=== PATIENT | male | born 1960 | race Caucasian/White ===

== ENCOUNTER 2024-11-01 10:42 | Outpatient (OUT) | payer OTHER, SELFPAY ==
--- NOTE | 2024-11-01 | XR_ITS ---
[address] [address] Patient Name: MEREDITH VILLATORO MRN: [id number] date: 1960 Sex: M Assigned Patient Location: RAD Current Patient Location: RAD Accession/Order Number: [id number] Exam Date: 11/01/2024 10:43 Report Date: 11/01/2024 13:46 At the request of: ANJANA DIETZ Procedure: XR foot LT min 3V PROCEDURE: XR foot LT min 3V, XR ankle LT min 3V COMPARISON: None. HISTORY: LEFT FOOT PAIN FINDINGS: BONES:No acute fracture or dislocation. Moderate degenerative changes with marginal osteophyte formation. Enthesopathic spurring of the calcaneus SOFT TISSUES:Negative. No visible soft tissue swelling. EFFUSION:None visible. OTHER: Negative. XR/XR foot LT min 3V IMPRESSION: Moderate degenerative changes Electronically authenticated by: STACEY WIGGINS Date: 11/01/2024 13:46
--- NOTE | 2024-11-01 | XR_ITS ---
The [address] [address] Patient Name: MEREDITH VILLATORO MRN: [id number] date: 1960 Sex: M Assigned Patient Location: RAD Current Patient Location: RAD Accession/Order Number: [id number] Exam Date: 11/01/2024 10:43 Report Date: 11/01/2024 13:46 At the request of: ANJANA DIETZ Procedure: XR ankle LT min 3V PROCEDURE: XR foot LT min 3V, XR ankle LT min 3V COMPARISON: None. HISTORY: LEFT FOOT PAIN FINDINGS: BONES:No acute fracture or dislocation. Moderate degenerative changes with marginal osteophyte formation. Enthesopathic spurring of the calcaneus SOFT TISSUES:Negative. No visible soft tissue swelling. EFFUSION:None visible. OTHER: Negative. XR/XR ankle LT min 3V IMPRESSION: Moderate degenerative changes Electronically authenticated by: STACEY WIGGINS Date: 11/01/2024 13:46
== END 2024-11-01 10:43 | disposition home or self-care (01) ==
PROVIDERS: Visit Provider Podiatrist Foot & Ankle Surgery
DX: M25.572 Pain in left ankle and joints of left foot (principal); M77.32 Calcaneal spur, left foot
CPT/HCPCS: 73610; 73630

== ENCOUNTER 2024-11-10 09:27 | Outpatient (OUT) | payer MEDICARE, MEDICAID, SELFPAY ==
--- NOTE | 2024-11-10 09:31 | CT_ITS ---
[place] [id number] Patient Name: MEREDITH VILLATORO MRN: [id number] date: 1960 Sex: M Assigned Patient Location: CT Current Patient Location: CT Accession/Order Number: [id number] Exam Date: 11/10/2024 09:34 Report Date: 11/10/2024 14:41 At the request of: ANJANA DIETZ Procedure: CT ankle LT wo con EXAMINATION: CT ankle LT wo con HISTORY: Ankle DJD COMPARISON: No relevant comparison available. TECHNIQUE: Multi-planar CT images were created without IV contrast. Dose reduction techniques were achieved by using automated exposure control and/or adjustment of mA and/or kV according to patient size and/or use of iterative reconstruction technique. FINDINGS: BONES: No acute fracture or dislocation. Mild tricompartmental knee osteoarthropathy with marginal osteophyte formation. Mild to moderate narrowing of the medial joint space. Mild to moderate degenerative changes of the midfoot and hindfoot with joint space narrowing, subchondral cystic changes and marginal osteophyte formation. Mild enthesopathic spurring of the calcaneus at the Achilles and plantar insertions SOFT TISSUES: Negative. No visible soft tissue swelling. EFFUSION: None visible. OTHER: Vascular calcifications CT/CT ankle LT wo con IMPRESSION: [id number]-lc-[id number] osteoarthritis detailed above Electronically authenticated by: STACEY WIGGINS Date: 11/10/2024 14:41
== END 2024-11-10 09:28 | disposition home or self-care (01) ==
LOC: CT 09:27
PROVIDERS: Visit Provider Podiatrist Foot & Ankle Surgery
DX: M19.072 Primary osteoarthritis, left ankle and foot (principal)
CPT/HCPCS: 73700

== ENCOUNTER 2024-12-06 12:12 | Outpatient (OUT) | payer MEDICARE, MEDICAID, SELFPAY ==
--- NOTE | 2024-12-06 12:23 | ECG_ITS ---
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
[2024-12-06 13:22] LABS: Anion Gap 13.5; BUN Creatinine Ratio 13.9; Calcium 9.6 mg/dL (8.5-10.1); Carbon Dioxide 27.2 mmol/L (21.0-32.0); Chloride 105 mmol/L (98-107); Estimated GFR (African America >60 (>=60 mL/min/1.73m^2); Estimated GFR (Non-African Ame >60 (>=60 mL/min/1.73m^2); Glucose 109 mg/dL (74-106); Potassium 4.7 mmol/L (3.5-5.1); Sodium 141 mmol/L (136-145)
--- NOTE | 2024-12-06 14:04 | P.GSHP_ITS ---
History of Present Illness History of Present Illness Chief complaint: Primary arthritis left ankle/foot Narrative: Patient presents for presurgical testing. The patient reports a long history of left foot and ankle pain. He does wear a brace to help with his discomfort and he is not sure if he is taking any medications to alleviate his pain at the present time. He states he does have a pins and needle sensation to his lower extremities. Review of Systems ROS Narrative REVIEW OF SYSTEMS: Negative except as stated in HPI, ten or more systems reviewed. Constitutional: No fever, chills, weakness ENT: No sore throat or epistaxis Cardiovascular: No edema, chest pain, or palpitations; admits to activity intolerance Respiratory: No shortness of breath, cough, or wheezing Gastrointestinal: No abdominal pain, constipation, diarrhea, or vomiting Genitourinary: No dysuria or hematuria Neurological: No numbness, tingling, weakness, or headache Psychiatric: No mood changes [facility] Medical History (Updated 12/06/24 @ 14:06 by Michelle Castro NP) Left ankle pain ?M25.572 - Pain in left ankle and joints of left foot (ICD-10) Arthritis ?M19.90 - Unspecified osteoarthritis, unspecified site (ICD-10) Migraine ?G43.909 - Migraine, unspecified, not intractable, without status migrainosus (ICD-10) GERD (gastroesophageal reflux disease) ?K21.9 - Gastro-esophageal reflux disease without esophagitis (ICD-10) Hypertension ?I10 - Essential (primary) hypertension (ICD-10) High cholesterol ?E78.00 - Pure hypercholesterolemia, unspecified (ICD-10) Poor historian ?Z78.9 - Other specified health status (ICD-10) Prostate cancer ?C61 - Malignant neoplasm of prostate (ICD-10) Neuropathy ?G62.9 - Polyneuropathy, unspecified (ICD-10) Equinus contracture of ankle ?M24.573 - Contracture, unspecified ankle (ICD-10) Osteoarthritis of left ankle and foot ?M19.072 - Primary osteoarthritis, left ankle and foot (ICD-10) Surgical History (Updated 12/06/24 @ 12:47 by Michelle Castro NP) History of esophagogastroduodenoscopy (EGD) ?Z98.890 - Other specified postprocedural states (ICD-10) History of colonoscopy ?Z98.890 - Other specified postprocedural states (ICD-10) History of gastric surgery ?Z98.890 - Other specified postprocedural states (ICD-10) Hx of prostate biopsy ?Z98.890 - Other specified postprocedural states (ICD-10) H/O transurethral resection of prostate ?Z98.890 - Other specified postprocedural states (ICD-10) ?Z90.79 - Acquired absence of other genital organ(s) (ICD-10) H/O arthroscopy (~2019) ?Z98.890 - Other specified postprocedural states (ICD-10) Social History (Updated 12/06/24 @ 12:39 by Michelle Castro NP) Within the past year, how often did you have a drink containing alcohol: never Score interpretation: A score less than 4 is consistent with normal alcohol consumption. Smoking status: Former smoker Non-prescribed substance use: denies use Highest level of school completed/degree received: high school graduate Meds Home Medications and Allergies Home Medications ?Medication ?Instructions ?Recorded ?Confirmed ?Type atorvastatin 10 mg tablet 10 mg PO DAILY 12/06/24 12/06/24 History dicyclomine 20 mg tablet 20 mg PO BID 12/06/24 12/06/24 History fluticasone propionate 50 1 spray intranasal DAILY PRN 12/06/24 12/06/24 History mcg/actuation nasal allergy symptoms spray,suspension (24 Hour Allergy Relief) indomethacin 50 mg capsule 50 mg PO BID 12/06/24 12/06/24 History lisinopril 10 mg tablet 10 mg PO DAILY 12/06/24 12/06/24 History metoprolol tartrate 50 mg tablet 50 mg PO BID 12/06/24 12/06/24 History mirabegron 50 mg tablet,extended 50 mg PO DAILY 12/06/24 12/06/24 History release 24 hr (Myrbetriq) tamsulosin 0.4 mg capsule (Flomax) 0.4 mg PO DAILY 12/06/24 12/06/24 History Allergies Allergy/AdvReac Type Severity Reaction Status Date / Time No Known Drug Allergies Allergy Verified 12/06/24 12:37 Exam Narrative Exam Narrative: Constitutional: Awake, alert, comfortable, well-appearing, nontoxic, inter active, vital signs as charted Head: Normocephalic, atraumatic Neck: Supple, normal appearance, normal range of motion, no meningeal signs, no lymphadenopathy Respiratory: No respiratory distress, breath sounds clear Cardiovascular: Regular rate and rhythm, strong and regular heart tones Musculoskeletal: Ankle brace intact left ankle Skin: No rashes or induration, no lesions, only visible skin inspected Neuro: No gross neurological deficits, normal sensation Psychiatric: Oriented ?3, normal affect Assessment and Plan Assessment and Plan (1) Osteoarthritis of left ankle and foot: (2) Equinus contracture of ankle: (3) Left ankle pain: Plan Left ankle arthroplasty with excision of osteophytes and possible cheilectomy, arthrotomy, and soft tissue balancing as needed scheduled with Dr. Granda December 11, 2024.
== END 2024-12-06 12:13 | disposition home or self-care (01) ==
LOC: PST 12:13
PROVIDERS: Visit Provider Podiatrist Foot & Ankle Surgery
DX: Z01.810 Encounter for preprocedural cardiovascular examination (principal); Z01.812 Encounter for preprocedural laboratory examination; Z01.818 Encounter for other preprocedural examination; M19.072 Primary osteoarthritis, left ankle and foot
CPT/HCPCS: 80048; 93005; G0463

== ENCOUNTER 2024-12-11 07:28 | Day surgery (SDC) | payer MEDICARE, MEDICAID, SELFPAY ==
[2024-12-06 13:25] VITALS: BP 141/76; PULSE 72; TEMP 36.6; O2SAT 95; BMI 41.1
[2024-12-11] VITALS (11 sets, daily range): BP systolic 114–164; BP diastolic 65–93; PULSE 69–78; TEMP 36.2–37.1; O2SAT 92–96; BMI 41.2
--- NOTE | 2024-12-11 | FL_ITS ---
[address] [address] Patient Name: MEREDITH VILLATORO MRN: [id number] date: 1960 Sex: M [facility]igned [facility] Current Patient Location: [facility] Accession/Order Number: [id number] Exam Date: 12/11/2024 10:15 Report Date: 12/20/2024 07:29 At the request of: ANJANA DIETZ Procedure: FL fluoroscopy <1hr NON-READ EXAM: FL fluoroscopy <1hr NON-READ HISTORY: TECHNIQUE: FINDINGS: Please see Operative Report. Electronically authenticated by: RADIOLOGIST NO Date: 12/20/2024 07:29
--- OUTSIDE RECORDS SUMMARY | 2024-12-11 07:32 | XMS_ITS | CCD ---
Author Organization [facility] Care Team Providers Care Cardiology Tech Name Role Phone Adrian Flores CNP Primary Care Provider Leila Lambert MD Unavailable [phone] Leila LAMBERT Primary Care Physician Adrian Flores CNP Primary Care Provider [phone] Leila Lambert MD Unavailable NONE, XXXX Primary Care Physician Unavailab Leila Mckenna MD Unavailable Adrian Flores CNP Primary Care Provider LAMBERT ., DR DEE Admitting Unavailable LAMBERT ., DR DEE Attending Unavailable [facility] Primary Care Unava ilable LAMBERT ., DR DEE Consulting Unavailable LEYVA, MICHELLE Consulting Unavailable ESPAÑA, KEVIN Consulting Unavailable [facility] Consulting Unava ilable LAMBERT ., DR DEE Admitting Unavailable LAMBERT ., DR DEE Attending Unavailable [facility] Primary Care Unava ilable LAMBERT ., DR DEE Consulting Unavailable ENGELECalvin, DR ZAINAB Minor Consulting Unavailable ZIEBER, DR KOBE Simpson Consulting Unavailable AGUBOSIMJOSE Consulting Unavailable ZOLTAN CELESTE Consulting Unavailable LAMBERT ., DR DEE Admitting Unavailable LAMBERT ., DR DEE Attending Unavailable [facility] Primary Care Unava ilable LAMBERT ., DR DEE Consulting Unavailable Asaad, Imad [facility] MD Fred Kirk Attending Provider ADRIAN FLORES Primary Care Unavailable Jhony LUX Attending Unavailable ADRIAN FLORES Referring Unavailable ADRIAN FLORES Primary Care Unavailable Jhony LUX Attending Unavailable MARK, ADRIAN Referring Unavailable ANGJUAN, ADRIAN Primary Care Unavailable ALBINA INIGUEZ Attending Unavailabl e Fred Kirk Attending Unavailable Health Dept, [facility] Primary Care Unavailable Fred Kirk Admitting Unavailable Fred Kirk Attending [facility] Primary Care Unavailable Fred Kirk Admitting Unavailable Anglim Adrian SMITH Primary Care Provider KERRI WORKMAN Attending Unavailable SERVICES, [facility] Unava ilable Yolette Warren MD Primary Care Provider Services, [facility] Primary Care Provider NOELLE ROGERS Referring Unavailable SERVICES, [facility] Unava ilable SERVICES, [facility] Unava ilable TRACY CHAU Admitting Unavailable ISAC, TRACY Attending Unavailable SERVICES, [facility] Unava ilable KERRI BENITEZ W Attending Unavailable BENITEZ, KERRI W Referring Unavailable BENITEZ, KERRI W Attending Unavailable BENITEZ, KERRI W Referring Unavailable BENITEZ, KERRI W Attending Unavailable BENITEZ, KERRI W Attending Unavailable RUSHER, MELO Hoyos Attending Unavailable LAMBERT, Leila R Attending Unavailable LAMBERT, Leila R Attending Unavailable LAMBERT, Leila R Attending Unavailable LAMBERT, Leila R Admitting Unavailable LAMBERT, Leila R Attending Unavailable LAMBERT, Leila R Admitting Unavailable LAMBERT, Leila R Attending Unavailable LAMBERT, Leila R Admitting Unavailable LAMBERT, Leila R Attending Unavailable LAMBERT, Leila R Attending Unavailable LAMBERT, Leila R Attending Unavailable Allergies Allergy Classification Reported Allergen(s) Allergy Type Date of Onset Reaction(s) Facility (1 source) Unable to Assess Drug allergy (disorder) 2 [facility] Repository (4 sources) Codeine / guaiFENesin; Translations: [CODEINE-GUAIFEN ESIN] Drug Allergy 2 [facility] Repository (10 sources) Codeine Drug Allergy 2 [facility] Healthcare Work Phone: (10 sources) Guaifenesin-Code ine Drug Allergy 3 Cough [facility] Healthcare (2 sources) No Known Medication Allergies; Translations: [No Known Medication Allergies] Propensity to adverse reactions (disorder) [facility] Repository Medications Current Medications Medication Drug Class(es) Dates Sig (Normalized) Sig (Original) aspirin 325 mg oral tablet (10 sources) Platelet Aggregation Inhibitor, Nonsteroidal Anti-inflammatory Drug Start: 06-23-2022 take 1 tablet by mouth in the morning RA Aspirin EC 325 MG EC tablet Take 325 mg by mouth in the morning. 06/23/2022 Active atorvastatin 10 mg oral tablet (20 sources) HMG-CoA Reductase Inhibitor Start: 01-13-2022 take 1 tablet by mouth in the morning atorvastatin (Lipitor) 10 MG tablet Take 10 mg by mouth in the morning. 03/28/2023 Active Start: 03-01-2017 take 0.5 tablet by m outh in the morning atorvastatin (LIPITOR) 20 mg tablet Take 0.5 tablets (10 mg total) by mouth in the morning. 0 03/01/2017 Active Comment on above: Take 10 mg by mouth once daily. clopidogrel 75 mg oral tablet (10 sources) P2Y12 Platelet Inhibitor Start: 06-24-20 take 1 tablet by mouth in the morning clopidogrel (Plavix) 75 MG tablet Take 75 mg by mouth in the morning. 06/24/2022 Active cyclobenzaprine hydrochloride 10 mg oral tablet (20 sources) Muscle Relaxant Start: 02-21-20 take 1 tablet by mouth three times daily as needed cyclobenzaprine (Flexeril) 10 MG tablet Take 10 mg by mouth 3 (three) times a day as needed. 02/20/2023 Active doxycycline hyclate 100 mg oral capsule (20 sources) Tetracycline-clas s Drug Start: 05-17-20 End: 05-31-20 take 1 capsule by mouth every twelve hours doxycycline hyclate 100 mg Cap 100 mg = 1 cap(s), Oral, q12hr, X 14 day(s), # 28 cap(s), Refills(s) 0, Pharmacy: [facility] #[id number], 160, cm, 05/17/23 12:23:00 EDT, Height/Length Dosing, 107, kg, 05/17/23 12:23:00 EDT, Weight Dosing Start Date: 05/17/23 Stop Date: 05/31/23 Status: Ordered Start: 02-27-2022 End: 01-04-2024 take 1 capsule by mouth twice daily doxycycline hyclate (VIBRAMYCIN) 100 mg capsule Take 100 mg by mouth twice daily. 02/27/2022 01/04/2024 Discontinued (Discontinued by another Health Care Provider) Comment on above: Take 100 mg by mouth twice daily. Fluticasone Furoate 27.5 MCG/SPRAY (1 source) Fluticasone Furo ate 27.5 MCG/SPRAY 2 sprays (1 spray in each nostril) Nasally Once a day Active hyoscyamine sulfate 0.12 mg / methenamine 118 mg / methylene blue 10 mg / phenyl salicylate 36 mg / sodium phosphate, monobasic 40.8 mg oral capsule (3 sources) Oxidation-Reduction Agent Start: 2 Uribel oral capsule 1 cap(s), Oral, BID, 60 cap(s), Refill(s) 1, [facility] #[id number], 160, cm, 07/15/22 8:09:00 EDT, Height/Length Dosing, 108, kg, 07/15/22 8:09:00 EDT, Weight Dosing Start Date: 07/15/22 Status: Ordered ibuprofen 800 mg oral tablet (20 sources) Nonsteroidal Anti-inflammatory Drug Start: 2 take 1 tablet by mouth twice daily for pain ibuprofen 800 MG tablet take 1 tablet by mouth twice a day if needed for pain take with food 05/21/2022 Active Start: 06-08-2021 End: 03-31-2022 ibuprofen (MOTRIN) 800 mg ta blet Take 800 mg by mouth. 06/08/2021 03/31/2022 Discontinued Comment on above: Take 800 mg by mouth . Take 1 tablet by jeniffer every 8 hours as needed for pain. lidocaine 0.05 mg/mg medicated patch (10 sources) Antiarrhythmic, Amide Local Anesthetic Start: 02-21-20 apply 1 dose transdermal route once daily lidocaine (Lidoderm) 5 % patch Place 1 patch on the skin 1 (one) time each day at the same time. 02/20/2023 Active lisinopril 10 mg oral tablet (20 sources) Angiotensin Converting Enzyme Inhibitor Start: 09-17-20 lisinopril 10 MG tablet 1 (one) time each day at the same time. 09/17/2022 Active Comment on above: Take 10 mg by mouth. meclizine hydrochloride 25 mg oral tablet (10 sources) Antiemetic Start: 08-20-20 take 1 tablet by mouth three times daily meclizine (Antivert) 25 MG tablet take 1 tablet by mouth three times a day if needed for 10 days 08/20/2022 Active methenamine hippurate 1000 mg oral tablet (1 source) Start: 06-09-20 End: 08-08-20 take 1 tablet by mouth twice daily methenamine hippurate 1 g oral tablet 1 gm = 1 tab(s), Oral, BID, X 30 day(s), # 60 tab(s), Refills(s) 1, Pharmacy: [facility] #[id number], 160, cm, 05/17/23 12:23:00 EDT, Height/Length Dosing, 107, kg, 05/17/23 12:23:00 EDT, Weight Dosing Start Date: 06/09/23 Stop Date: 08/08/23 Status: Ordered metoprolol tartrate 50 mg oral tablet (20 sources) beta-Adrenergic Coy Start: 01-05-20 take 50 mg by mouth once daily Metoprolol Tartrate Active 50 MG PO Daily January 05, 2024 1:00am Start: 12-22-2021 take 1 tablet by jeniffer th twice daily Metoprolol tartrate 50 mg Tab 180 EA, take 1 tablet by mouth twice a day, Refills(s) 0 Start Date: 12/22/21 Status: Ordered metoprolol tartr ate (Lopressor) 50 MG tablet every 12 (twelve) hours. Active Comment on above: Take 50 mg by mouth. 24 hr mirabegron 50 mg extended release oral tablet (20 sources) beta3-Adrenergic Agonist Start: 10-16-2024 End: 10-11-2025 take 2 tablets by mouth once daily Myrbetriq 50 mg oral tablet, extended release 100 mg = 2 tab(s), Oral, Daily, X 90 day(s), # 180 tab(s), Refills(s) 3, Pharmacy: [facility] [id number], 160, cm, 10/16/24 12:19:00 EST, Height/Length Dosing, 117, kg, 10/16/24 12:19:00 EST, Weight Dosing Start Date: 10/16/24 Stop Date: 10/11/25 Status: Ordered Start: 04-07-2023 take 1 tablet by jeniffer th every twenty-four hours in the morning Myrbetriq 50 MG 24 hr tablet Take 50 mg by mouth in the morning. 04/07/2023 Active Start: 03-08-2023 End: 01-14-2025 take 1 tablet by mouth once daily Myrbetriq 50 mg oral tablet, extended release 50 mg = 1 tab(s), Oral, Daily, X 90 day(s), # 90 tab(s), Refills(s) 3, Pharmacy: [facility] [id number], 160, cm, 07/12/23 10:33:00 EDT, Height/Length Dosing, 115.5, kg, 07/12/23 10:33:00 EDT, Weight Dosing Start Date: 01/20/24 Stop Date: 01/14/25 Status: Ordered Comment on above: Take 50 mg by mouth. naproxen 500 mg delayed release oral tablet (20 sources) Nonsteroidal Anti-inflammatory Drug Start: 02-20-2023 take 1 tablet by mouth in the morning naproxen (EC Naprosyn) 500 MG EC tablet Take 500 mg by mouth in the morning and 500 mg in the evening. Take with meals. 02/20/2023 Active Start: 12-22-2021 take 1 tablet by jeniffer th every twelve hours as needed for pain naproxen 500 mg Tab 12 EA, take 1 tablet by mouth every 12 hours NEEDED FOR PAIN TAKE WITH FOOD OR MILK, Refills(s) 0 Start Date: 12/22/21 Status: Ordered 24 hr oxybutynin chloride 10 mg extended release oral tablet (10 sources) Cholinergic Muscarinic Antagonist Start: 06-01-2022 take 1 tablet by mouth every twenty-four hours in the morning oxybutynin XL (Ditropan-XL) 10 MG 24 hr tablet Take 10 mg by mouth in the morning. 06/01/2022 Active sod sulf-pot chloride-mag sulf 1.479-0.188- 0.225 gram tablet (1 source) Start: 08-23-2024 sod sulf-pot chloride-mag sulf 1.479-0.188- 0.225 gram tablet Indications: Diarrhea, unspecified type Please see instructional sheet given by physicians office. 24 tablet 08/23/2024 Active tamsulosin hydrochloride 0.4 mg oral capsule (20 sources) alpha-Adrenergic Coy Start: 09-04-2022 take 1 capsule by mouth every twenty-four hours in the morning tamsulosin (Flomax) 0.4 MG 24 hr capsule Take 0.4 mg by mouth in the morning and 0.4 mg before bedtime. 03/01/2023 Active Start: 09-04-2022 take 1 capsule by mo [facility] twice daily tamsulosin 0.4 mg Cap 0.4 mg = 1 cap(s), Oral, BID, # 180 cap(s), Refills(s) 3, Pharmacy: [facility] [id number], 160, cm, 07/12/23 10:33:00 EDT, Height/Length Dosing, 115.5, kg, 07/12/23 10:33:00 EDT, Weight Dosing Start Date: 11/08/23 Status: Ordered Comment on above: 1 capsule. Completed/Discontinued Medications Medication Drug Class(es) Dates Sig (Normalized) Sig (Original) 24 hr alfuzosin hydrochloride 10 mg extended release oral tablet (20 sources) alpha-Adrenergic Coy Start: 02-23-2022 End: 01-04-2024 take 1 tablet by mouth once daily, then take 1 tablet by mouth every twenty-four hours alfuzosin SR (UROXATRAL) 10 mg 24 hr tablet Take 10 mg by mouth once daily. 02/23/2022 01/04/2024 Discontinued (Discontinued by another Health Care Provider) Comment on above: Take 10 mg by mouth once daily. atropine sulfate 0.025 mg / diphenoxylate hydrochloride 2.5 mg oral tablet (20 sources) Anticholinergic, Cholinergic Muscarinic Antagonist, Antidiarrheal Start: 11-25-2021 End: 01-04-2024 take 1 tablet by mouth twice daily for diarrhea diphenoxylate-atr opine (LOMOTIL) 2.5-0.025 mg per tablet take 1 tablet by mouth twice a day if needed for diarrhea 11/25/2021 01/04/2024 Discontinued (Discontinued by another Health Care Provider) Comment on above: [facility] if [facility] for diarrhea dicyclomine hydrochloride 20 mg oral tablet (6 sources) Anticholinergic Start: 03-01-2024 End: 06-22-2024 take 1 tablet by mouth twice daily Dicyclomine Discontinued 20 MG PO Three times daily June 22, 2024 1:53pm June 22, 2024 1:55pm Take 1 tablet orally twice a day. 30 actuat fluticasone furoate 0.1 mg/actuat dry powder inhaler (20 sources) Corticosteroid Start: 01-05-2024 End: 03-01-2024 Fluticasone Furoate Discontinued 1 INH INHALATION Daily January 05, 2024 1:00am March 01, 2024 1:06pm FLUTICASONE PROP IONATE NASAL Use in the nose. Active FLUTICASONE PROP IONATE NASAL Use in the nose. 0 Active Comment on above: Use in the nose. Immodium A-D 2 mg Cap (1 source) Start: 12-22-19 take 1 capsule by mouth once daily Immodium A-D 2 mg Cap 30 EA, take 1 capsule by mouth daily, Refills(s) 0 Start Date: 12/22/21 Status: Ordered indomethacin 50 mg oral capsule (8 sources) Nonsteroidal Anti-inflammatory Drug Start: 01-04-20 End: 03-01-20 take 50 mg by mouth twice daily at mealtime Indomethacin Discontinued 50 MG PO Twice daily January 05, 2024 1:00am March 01, 2024 1:07pm administer with food or milk Comment on above: take 1 capsule by [facility] twice a day with food or milk for 14 days loperamide hydrochloride 2 mg oral capsule (6 sources) Opioid Agonist Start: 12-22-19 loperamide (IMODIUM) 2 mg cap(s) Take by mouth. 0 12/22/2021 Active Comment on above: Take by mouth. Problems Active Problems Problem Classification Problem Date Documented Da te Episodic/Chronic Abdominal pain (4 sources) Abdominal pain; Translations: [Unspecified abdominal pain] 03-01-2024 Episodic Acquired foot deformities (2 sources) Acquired hammer toe of left foot; Translations: [Other hammer toe(s) (acquired), left foot] Onset: 06-22-2022 06-22-2022 Chronic Cancer of prostate (20 sources) Malignant tumor of prostate; Translations: [Malignant neoplasm of prostate] Onset: 05-15-2022 Chronic Cancer of prostate (2 sources) History of malignant neoplasm of prostate; Translations: [Personal history of malignant neoplasm of prostate] Onset: 08-23-2024 01-04-2024 Episodic Disorders of lipid metabolism (17 sources) Hypercholesterolemia; Translations: [Hyperlipidemia, unspecified] Onset: 06-22-2022 12-22-2021 Chronic Diverticulosis and diverticulitis (1 source) Diverticulosis of intestine, part unspecified, without perforation or abscess without bleeding; Translations: [Diverticulosis of intestine, part unspecified, without perforation or abscess without bleeding] Onset: 09-11-2024 Chronic Essential hypertension (17 sources) Hypertensive disorder; Translations: [Essential (primary) hypertension] Onset: 06-22-2022 12-22-2021 Chronic Genitourinary symptoms and ill-defined conditions (15 sources) Urge incontinence; Translations: [Urge incontinence of urine] Onset: 03-08-2023 Chronic Genitourinary symptoms and ill-defined conditions (20 sources) Dysuria; Translations: [Dysuria] Onset: 07-15-2022 Episodic Hyperplasia of prostate (20 sources) Benign prostatic hypertrophy with outflow obstruction; Translations: [Prostate nodule] Onset: 06-22-2022 01-16-2022 Chronic Inflammatory conditions of male genital organs (20 sources) Epididymitis; Translations: [Epididymitis] Onset: 06-22-2022 02-27-2022 Episodic Noninfectious gastroenteritis (3 sources) Chronic diarrhea; Translations: [Noninfective gastroenteritis and colitis, unspecified] Onset: 11-30-2023 Episodic Nonmalignant breast conditions (1 source) Gynecomastia; Translations: [Hypertrophy of breast] 07-08-2023 Episodic Osteoarthritis (20 sources) Arthritis; Translations: [Unspecified osteoarthritis, unspecified site] Onset: 06-22-2022 12-22-2021 Chronic Other and unspecified benign neoplasm (1 source) Polyp of colon; Translations: [Polyp of colon] Onset: 09-11-2024 Episodic Other connective tissue disease (4 sources) Enthesopathy of lower limb; Translations: [Other enthesopathy of left foot and ankle] 09-26-2024 Episodic Other connective tissue disease (8 sources) Synovitis and tenosynovitis; Translations: [Other synovitis and tenosynovitis, left ankle and foot] 09-26-2024 Episodic Other gastrointestinal disorders (1 source) Irritable bowel syndrome; Translations: [Irritable bowel syndrome without diarrhea] 03-01-2024 Chronic Other gastrointestinal disorders (1 source) Irritable bowel syndrome without diarrhea; Translations: [Irritable bowel syndrome] 06-22-2024 Chronic Other gastrointestinal disorders (4 sources) Diarrhea; Translations: [Diarrhea, unspecified] Onset: 08-23-2024 03-01-2024 Episodic Other gastrointestinal disorders (4 sources) Diarrhea, unspecified; Translations: [Diarrhea] Onset: 08-23-2024 03-01-2024 Episodic Other gastrointestinal disorders (1 source) Fecal urgency; Translations: [Fecal urgency] Onset: 08-23-2024 Episodic Other male genital disorders (16 sources) Disorder of male genital organ; Translations: [Disorder of male genital organs, unspecified] Onset: 06-22-2022 12-22-2021 Episodic Other male genital disorders (1 source) Hydrocele of testis; Translations: [Hydrocele, unspecified] Onset: 09-04-2022 Episodic Other male genital disorders (1 source) Hydrocele, unspecified; Translations: [HYDROCELE UNSPECIFIED] Onset: 12-17-2022 Episodic Other male genital disorders (2 sources) H/O: male genital disorder; Translations: [Personal history of other diseases of male genital organs] Onset: 03-17-2024 Episodic Other male genital disorders (5 sources) History of prostatitis 03-17-2024 Episodic Other nervous system disorders (2 sources) Chronic pain; Translations: [Other chronic pain] Onset: 06-22-2022 06-22-2022 Chronic Other nervous system disorders (4 sources) Difficulty walking; Translations: [Difficulty in walking, not elsewhere classified] Onset: 06-22-2022 06-22-2022 Chronic Other non-traumatic joint disorders (2 sources) Arthritis of left ankle 10-12-2024 Chronic Other non-traumatic joint disorders (8 sources) Chronic ankle pain; Translations: [Pain in left ankle and joints of left foot] 09-26-2024 Episodic Other nutritional; endocrine; and metabolic disorders (2 sources) Body mass index 40+ - severely obese; Translations: [Body mass index (BMI) 40.0-44.9, adult] Onset: 08-30-2019 08-30-2019 Chronic Other screening for suspected conditions (not mental disorders or infectious disease) (3 sources) Elevated prostate specific antigen [PSA]; Translations: [Raised prostate specific antigen] Onset: 12-17-2022 Episodic Peripheral and visceral atherosclerosis (2 sources) Peripheral vascular disease; Translations: [Peripheral vascular disease, unspecified] Onset: 06-22-2022 06-22-2022 Chronic Screening and history of mental health and substance abuse codes (1 source) Personal history of nicotine dependence; Translations: [Personal history of nicotine dependence] Onset: 08-28-2024 Episodic Substance-related disorders (3 sources) Nicotine dependence, cigarettes, uncomplicated; Translations: [Smokes tobacco daily] Onset: 06-22-2022 06-22-2022 Chronic Unclassified (8 sources) Finding of sensation of bladder 05-17-2023 Unclassified (1 source) Diarrhea, unspecified; Translations: [Diarrhea, unspecified] Onset: 01-05-2024 Past or Other Problems Problem Classification Problem Date Documented Da te Episodic/Chronic Conditions associated with dizziness or vertigo (4 sources) Vertigo; Translations: [Dizziness and giddiness] Onset: 06-21-2022 06-22-2022 Episodic Results Test Name Value Interpretation Reference Range Facil ity Ambulatory Visit Summaryon 1 12-16-2023 Ambulatory Visit Summary Ambulatory Visit Summary MEREDITH VILLATORO :1960 Visit Date:10/16/2024 Ambulatory Visit Instructions Your Diagnosis Rising PSA following treatment for malignant neoplasm of prostate Prostate cancer Urge incontinence BPH with obstruction/lower urinary tract symptoms History of prostatitis Your Care Team Attending Physician - PETRA OVIEDO, Leila Simpson Primary Care Physician - NONE, XXXX This Is Your Medications List mirabegron (Myrbetriq 50 mg oral tablet, extended release) tamsulosin (tamsulosin 0.4 mg Cap) Contact prescribing physician if questions or concerns atorvastatin (atorvastatin 10 mg Tab) cyclobenzaprine (cyclobenzaprine 10 mg Tab) lisinopril (lisinopril 10 mg Tab) metoprolol (Metoprolol tartrate 50 mg Tab) naproxen (naproxen 500 mg Tab) Procedures Performed Implantation of radioactive seed into prostate (05/21/2022), MRI-US fusion guided transrectal biopsy of prostate (02/05/2022), MRI of prostate (01/08/2022), Colonoscopy. Discharge Vitals Temperature (Temporal Artery) 37 ???C Heart Rate (Peripheral) 89 Respiratory Rate 16 Blood Pressure 137/88 Height 160 cm Height 63 in Weight 117 kg Weight 257.941 lb BMI 45.7 What to do next Scheduled Follow-Up Appointments Wednesday 9:30 AM EST With: Where: [facility] [address] [place] [address]- Wednesday 11:15 AM EST With: Leila LAMBERT MD Where: [facility] [address] [facility] [place] [address]- You Need to Schedule the Following Appointments Follow Up with Leila LAMBERT MD, URL When: Comments: 3 mos w/ PSA and Lupron Where: [facility] [address] , [place] [address] [phone] Medications What How Much When Instructions Changed mirabegron (Myrbetriq 50 mg oral tablet, extended release) 2 Tablets By Mouth Every day Duration: 90 Days Pickup at [facility] [id number] Unchanged tamsulosin (tamsulosin 0.4 mg Cap) 1 Capsules By Mouth 2 times a day Unchanged atorvastatin (atorvastatin 10 mg Tab) Contact prescribing physician if questions or concerns Unchanged cyclobenzaprine (cyclobenzaprine 10 mg Tab) Contact prescribing physician if questions or concerns Unchanged lisinopril (lisinopril 10 mg Tab) Contact prescribing physician if questions or concerns Unchanged metoprolol (Metoprolol tartrate 50 mg Tab) 180 EA, take 1 tablet by mouth twice a day Contact prescribing physician if questions or concerns Unchanged naproxen (naproxen 500 mg Tab) 12 EA, take 1 tablet by mouth every 12 hours NEEDED FOR PAIN TAKE WITH FOOD OR MILK Contact prescribing physician if questions or concerns Pharmacy Information [facility] [id number]: [address], [place] [id number] [phone] Allergies No Known Medication Allergies Problems Ongoing - Any problem that you are currently receiving treatment for. Arthritis Bilateral hydrocele BPH with obstruction/lower urinary tract symptoms Dysuria Epididymitis Feeling of incomplete bladder emptying Gross hematuria High cholesterol History of prostatitis Hypertension Nocturia Prostate cancer Prostate nodule Prostatitis Rising PSA following treatment for malignant neoplasm of prostate Urge incontinence Patient Survey You may receive a survey via text or e-mail asking about your office visit. Please share your experience with us by completing your survey. We appreciate your feedback and thank you for choosing us for your care. Education Materials Prostate Cancer The prostate is a small gland that produces fluid that makes up semen (seminal fluid). It is located below the bladder in men, in front of the rectum. Prostate cancer is the abnormal growth of cells in the prostate gland. What are the causes? The exact cause of this condition is not known. What increases the risk? You are more likely to develop this condition if: ??? You are 65 years of age or older. ??? You have a family history of prostate cancer. ??? You have a family history of breast and ovarian cancer. ??? You have genes that are passed from parent to child (inherited), such as BRCA1 and BRCA2. ??? You have Simpson syndrome. men and men of descent are diagnosed with prostate cancer at higher rates than other men. The reasons for this are not well understood and are likely due to a combination of genetic and environmental factors. What are the signs or symptoms? Symptoms of this condition include: ??? Problems with urination. This may include: ? A weak or interrupted flow of urine. ? Trouble starting or stopping urination. ? Trouble emptying the bladder all the way. ? The need to urinate more often, especially at night. ??? Blood in urine or semen. ? (more content not included)... Normal [facility] U[facility] Office/Clinic Noteon 10-16-2024 Urology Office/Clinic Note Urology Office/Clinic Note Chief Complaint prostate cancer HPI Staff 6 mos w/ PSA. Previous dx: prostate cancer (EBRT 04/24/22 & Brachytherapy 05/21/22), UUI, BPH with obstruction/LUTS, hx of prostatitis. *Myrbetriq 50mg qd and Flomax 0.4mg bid PSA: 03/17/24 - 0.2 10/03/24 - 0.6 Dysuria: states a little pain for the past couple of months Incomplete bladder emptying: feels he is not emptying PVR is 33ml today Hematuria: denies Frequency: 3x daily Urgency: not often Nocturia: 2x Stream: no straining but has intermittency Leaking: denies Post void dripping: yes Wearing pads/ Depends: denies Urge incontinence: occasionally Stress incontinence: denies Incontinence without Sensory Awareness: denies Abdominal pain: denies Flank pain: states middle of his back Sexual complaints: denies History of Present Illness Tests reviewed: reviewed UA, PSA I have reviewed the previous health record information and history for this patient from Dr. Lambert. I have reviewed and verified the staff HPI to be accurate for this encounter. Review of Systems PHQ Score Initial Depression Screen Score: 0 SCORE ROS - Provider Constitutional: denies weight loss, denies hot flashes. Eyes: denies eye problems. Gastrointestinal: denies nausea, denies vomiting. Cardiovascular: denies chest pain or angina. Integumentary: no dryness Musculoskeletal: denies musculoskeletal symptoms. ENMT: denies otolaryngeal symptoms. Respiratory: no shortness of breath. Heme/Lymph: denies easy bleeding tendency, denies easy bruising tendency. Psychiatric: no confusion, no anxiety. Genitourinary: See HPI. Physical Exam Vitals & Measurements T: 37 ???C(Temporal Artery) HR: 89(Peripheral) RR: 16 BP: 137/88 HT: 63 in HT: 160 cm WT: 117 kg WT: 257.941 lb BMI: 45.7 General Appearance: alert, no distress, well nourished, well developed male. Assessment/Plan 1. Rising PSA following treatment for malignant neoplasm of prostate (R97.21: Rising PSA following treatment for malignant neoplasm of prostate) PSA: 01/16/22 - 2.0 02/16/23 - 0.24 09/06/23- <0.1 03/17/24 - 0.2 10/03/24 - 0.6 MRI prostate w/wo con 01/08/22 [facility] [place]-RADS 4 and 5. MRI fusion bx 02/05/22 - Judd 8 (4+4), 18 cores, grade group 4. NM Whole body bone scan 02/20/22 [facility] - No evidence of mets disease EBRT 03/23/22 - 04/24/22. Brachytherapy 05/21/22. Lupron given 02/27/22 and 09/04/22. Experienced breast tenderness and enlargement. Mammogram 05/11/23 - mild benign-appearing gynecomastia in the left retroareolar region. BI-RADS 2. PE 09/13/23: Lt breast tender upon exam. No longer experiencing breast pain/tenderness. PSA has increased, highest level on record since treatment. Discussed need for repeating Lupron inj to manage PSA level. Pt understands and is willing to proceed. -F/u in 3 mos w/ PSA and Lupron 2. Prostate cancer (C61: Malignant neoplasm of prostate) See #1. Ordered: 59573 Measure Post Void residual urine and/or bladder capacity by US- non-imaging E&M of Est. Patient Moderate 30-39 Min 65450 PSA Total Urnls Dip Stick Auto w/o Microscopy POC 06443 3. Urge incontinence (N39.41: Urge incontinence) PVR (cc): 09/13/23 - 0 10/16/24 - 33 Taking Myrbetriq 50mg qd. Reports voiding q1hr, does not feel he empties after voiding. Leaks on the way to the bathroom at times. Discussed increasing dosage to help better control sxs. Possible SEs discussed. -Increase Myrbetriq to 100mg qd. Rx sent to [facility]. Ordered: E&M of Est. Patient Moderate 30-39 Min 45919 4. BPH with obstruction/lower urinary tract symptoms (N40.1: Benign prostatic hyperplasia with lower urinary tract symptoms) Taking Flomax 0.4mg bid. See #3. Ordered: E&M of Est. Patient Moderate 30-39 Min 90708 5. History of prostatitis (Z87.438: Personal history of other diseases of male genital organs) Has been tx'd with Doxycycline and Methenamine in the past. [1] UA today negative for blood and infection. Ordered: E&M of Est. Patient Moderate 30-39 Min 15801 Orders: mirabegron, 100 mg = 2 tab(s), Oral, Daily, X 90 day(s), # 180 tab(s), Refills(s) 3, Pharmacy: [facility] [id number], 160, cm, 10/16/24 12:19:00 EST, Height/Length Dosing, 117, kg, 10/16/24 12:19:00 EST, Weight Dosing Follow-up With When Contact Information PETRA OVIEDO, Leila Simpson, [facility] [address], [place] [address]- [phone] Additional Instructions: 3 mos w/ PSA and Lupron Patient Education Prostate Cancer I, Molly Murray, personally scribed for Dr. Lambert on 10/16/2024 12:58:57. . Documentation recorded by the scribe, Molly Murray, accurately reflects the services(s) I performed and decisions made by me. Authenticated by Dr. Lambert on 10/16/2024 13:03:09. Problem List/Past Medical History Ongoing Arthritis Bilateral hydrocele BPH with obstruction/lower urinary tract sympt (more content not included)... Normal [facility] Comment on above: Result Comment: Elec tronically Signed By: Leila LAMBERT MD\.br\Date and Time Signed: 10/16/24 13:03 EST\.br\Electronically Co-Signed By: Molly Murray\.br\Date and Time Co-Signed: 10/16/24 12:59 EST CHEMISTRYOrdered By: SYSTEM SYSTEM on 10-03-2024 Prostate specific Ag [Mass/Vol] 0.6 ng/mL Normal 0.1 - 3.5 ng/mL [facility] Comment on above: Interpretive Data: T he concentration of PSA determined by different manufacturers can vary due to differences in assay methods and reagent specificity. Values obtained from different assay methods cannot be used interchangeably. The methodology used for this result was chemiluminescence using [employer]'s Access Hybritech PSA reagent. PSA Totalon 10-03-2024 Prostate specific Ag [Mass/Vol] 0.6 ng/mL Normal 0.1-3.5 [facility] Comment on above: Result Comment: The concentration of PSA determined by different manufacturers can vary due to differences in assay methods and reagent specificity. Values obtained from different assay methods cannot be used interchangeably. The methodology used for this result was chemiluminescence using [employer]'s Access Hybritech PSA reagent. Performed By: #### 1 [id number] #### [facility] [address] [place] [address] Surgical Pathologyon 024 [facility] Comment on above: Result Comment: [facility] [address] [place] [address] Surgical Pathology Consultation Patient Name:MEREDITH VILLATORO:1960 (Age: 64)Gender:MTaken:4Reported:09/14/2024hysician(s):Kyle Chau D.O. ([phone])Copy To: Rec. #:[id number]: #[id number] Final Pathologic Diagnosis 1. Sigmoid colon polyp: Hyperplastic polyp. 2. Splenic flexure polyp: Tubular adenoma fragments. 3. Random colon biopsy: Unremarkable colonic mucosa. Negative for microscopic colitis or active colitis. Negative for dysplasia or malignancy. 4. Anastomosis biopsy: Colonic mucosa with mild hyperplasia. Negative for microscopic colitis or active colitis. Negative for dysplasia or malignancy. Report Electronically Signed Out st09/14/2024Berenice Weir MD Interpretation performed at [facility], [address] [place], [facility], License number: [id number]. Clinical History Diarrhea. Gross Description 1. Received in formalin labeled [place], sigmoid are two josue-han, focally erythematous, friable, 0.3 and 0.4 cm polypoid fragments. The specimen is entirely submitted in a single cassette. (1, ns, [id number], m4) JG 2. Received in formalin labeled [place], splenic are two josue-han, focally erythematous, friable, 0.3 and 0.4 cm polypoid fragments with adherent vegetative material. The polyps are entirely submitted in a single cassette with the vegetative material retained. (1, ns, [id number], m4) JG 3. Received in formalin labeled [place], random BX are two josue-han, focally erythematous, friable, 0.4 cm each soft tissue bits. The specimen is entirely submitted in a single cassette. (1, ns, [id number], m4) JG 4. Received in formalin labeled [place], anastomosis are two josue-han, focally erythematous, friable, 0.2 and 0.3 cm soft tissue bits. The specimen is entirely submitted in a single cassette. (1, ns, [id number], m4) JG jmg/09/12/2024NSK Specimen(s) Received 1: Sigmoid colon polyp 2: Splenic flexure polyp 3: Random colon biopsy 4: Anastomosis biopsy Fee Codes(s): 1; 51743 2; 35201 3; 82090 4; 53196 CT LOW DOSE LUNG SCREENINGon 08-29-2024 CT LOW DOSE LUNG SCREENING CT LOW DOSE LUNG SCREENING CLINICAL INFORMATION: Screening visit: Personal history of tobacco use/personal history of nicotine dependence. Lung cancer screening. The patient is a prior smoker. The patient has a 75 pack year history of smoking. COMPARISON: CT abdomen pelvis 03/07/2020 TECHNIQUE: Low dose CT chest performed without contrast with coronal and sagittal and maximum intensity projection reconstructed images. Maximum intensity projection images generated to increase the sensitivity of pulmonary nodule detection. All CT scans at this facility use dose modulation, iterative reconstruction, and/or weight based dosing when appropriate to reduce radiation dose to as low as reasonably achievable. Automated exposure control was utilized. Computer aided detection for pulmonary nodules?was performed utilizing [employer] software.? FINDINGS: Diagnostic quality: Satisfactory. Some motion artifact is present. Lung nodules: There is a round circumscribed 10 x 13 mm nodule off the left lung base (image 79 of 121). This demonstrates very slow growth, measuring approximate 5 mm in 2016, benign. There is a new 5 x 7 pulmonary nodule of the posterior left lung base (image 87 of 121). There is a smooth broad-based pleural thickening of the anterolateral right upper lobe measuring up to 7 mm in thickness (image 37 of 121). Lungs and pleural spaces: No effusion. No focal consolidation Mediastinum: No lymphadenopathy. Heart size within normal limits. No significant coronary artery calcifications. Minimal atherosclerotic calcifications of the nonaneurysmal aortic arch. Heart size: Normal Coronary calcification: None Pericardial effusion: None Other findings: None IMPRESSION: 1. There is a new 6 mm nodule of the left lung base which is probably benign however 6 month follow-up CT is recommended to assess stability. Lung Rads Category: 3- Probably benign Recommendation: CT Low Dose Lung Screening 6 month follow up 1 Finalized by Keisha Gauthier MD on 08/29/2024 2:35 PM 3 LDCT 6 Mo Normal [facility] MR ANKLE LEFT WO IV CONTRAST on 06-15-2024 MR ANKLE LEFT WO IV CONTRAST EXAM: MR ANKLE LEFT WO IV CONTRAST HISTORY: Ankle pain. Osteoarthritis. TECHNIQUE: Multisequence multiplanar MRI of the ankle was performed without contrast COMPARISON: None available FINDINGS: Achilles tendon is intact. The visualized plantar fascia is intact and is without thickening or nodularity. The tibialis posterior, flexor hallucis longus, and flexor digitorum longus tendons are intact. No space-occupying lesion within the tarsal tunnel. Peroneus longus and peroneus brevis tendons are intact. Extensor tendons are intact. The anterior and posterior tibiofibular ligaments, anterior and posterior talofibular ligaments, and calcaneofibular ligament are intact. Superficial and deep fibers of the deltoid ligament are intact. Spring ligament is intact. Sinus tarsi fat is preserved. There are tiny subcortical cysts of the posterior tibial plafond secondary to full-thickness cartilage fissures. Mild subcortical bone marrow edema of the lateral talar dome secondary to tiny full-thickness cartilage defects. No ankle joint effusion degenerative changes are present along the dorsal margin of the talonavicular joint including a marginal osteophyte of the talar head and 2 adjacent ossicles measuring up to 8 mm. There is edema within the marginal osteophyte of the talus and largest of the ossicles that may be degenerative or due to impingement. There is edema of the extensor digitorum brevis muscle without definitive tearing. IMPRESSION: Degenerative changes of the hindfoot and midfoot as detailed. Edema of the extensor digitorum brevis muscle without definitive tearing is nonspecific and likely due to muscle strain. ELECTRONICALLY SIGNED BY: Dylan Ramos, DO Normal Not Available Ambulatory Visit Summaryon 0 03-17-2024 Ambulatory Visit Summary MEREDITH VILLATORO :1960 Visit Date:03/17/2024 Ambulatory Visit Instructions Your Diagnosis Prostate cancer Urge incontinence BPH with obstruction/lower urinary tract symptoms History of prostatitis Your Care Team Attending Physician - PETRA OVIEDO, Leila Simpson Primary Care Physician - NONE, XXXX This Is Your Medications List mirabegron (Myrbetriq 50 mg oral tablet, extended release) tamsulosin (tamsulosin 0.4 mg Cap) Contact prescribing physician if questions or concerns atorvastatin (atorvastatin 10 mg Tab) cyclobenzaprine (cyclobenzaprine 10 mg Tab) lisinopril (lisinopril 10 mg Tab) metoprolol (Metoprolol tartrate 50 mg Tab) naproxen (naproxen 500 mg Tab) Procedures Performed Implantation of radioactive seed into prostate (05/21/2022), MRI-US fusion guided transrectal biopsy of prostate (02/05/2022), MRI of prostate (01/08/2022), Colonoscopy. Discharge Vitals Height 160 cm Height 63 in Weight 111.5 kg Weight 245.3 lb BMI 43.55 What to do next Scheduled Follow-Up Appointments Wednesday 9:45 AM EDT With: PETRA OVIEDO, Leila Simpson Where: [facility] Normal History of prostatitis, Required & Missing, Print Label By Order Location\.br\ Medications\.br\ What How Much When Instructions\.br\ Unchanged mirabegron (Myrbetriq 50 mg oral tablet, extended release) 1 Tablets By Mouth Every day Duration: 90 Days\.br\ Unchanged tamsulosin (tamsulosin 0.4 mg Cap) 1 Capsules By Mouth 2 times a day\.br\ Unchanged atorvastatin (atorvastatin 10 mg Tab) Contact prescribing physician if questions or concerns \.br\ Unchanged cyclobenzaprine (cyclobenzaprine 10 mg Tab) Contact prescribing physician if questions or concerns \.br\ Unchanged lisinopril (lisinopril 10 mg Tab) Contact prescribing physician if questions or concerns \.br\ Unchanged metoprolol (Metoprolol tartrate 50 mg Tab) 180 EA, take 1 tablet by mouth twice a day Contact prescribing physician if questions or concerns \.br\ Unchanged naproxen (naproxen 500 mg Tab) 12 EA, take 1 tablet by mouth every 12 hours NEEDED FOR PAIN TAKE WITH FOOD OR MILK Contact prescribing physician if questions or concerns \.br\ Allergies\.br\ No Known Medication Allergies\.br\ Problems\.br\ Ongoing - Any problem that you are currently receiving treatment for.\.br\ Arthritis\.br\ Bilateral hydrocele\.br\ BPH with obstruction/lower urinary tract symptoms\.br\ Dysuria\.br\ Epididymitis\.br\ Feeling of incomplete bladder emptying\.br\ Gross hematuria\.br\ High cholesterol\.br\ History of prostatitis\.br\ Hypertension\.br\ Nocturia\.br\ Prostate cancer\.br\ Prostate nodule\.br\ Prostatitis\.br\ Urge incontinence\.br\ Patient Survey\.br\ You may receive a survey via text or e-mail asking about your office visit. Please share your experience with us by completing your survey. We appreciate your feedback and thank you for choosing us for your care.\.br\ Education Materials\.br\ Prostate Cancer\.br\ \.br\ The prostate is a small gland that produces fluid that makes up semen (seminal fluid). It is located below the bladder in men, in front of the rectum. Prostate cancer is the abnormal growth of cells in the prostate gland.\.br\ What are the causes?\.br\ The exact cause of this condition is not known.\.br\ What increases the risk?\.br\ You are more likely to develop this condition if:\.br\ ? \.br\ You are 65 years of age or older.\.br\ ? \.br\ You have a family history of prostate cancer.\.br\ ? \.br\ You have a family history of breast and ovarian cancer.\.br\ ? \.br\ You have genes that are passed from parent to child (inherited), such as BRCA1 and BRCA2.\.br\ ? \.br\ You have Simpson syndrome.\.br\ men and men of descent are diagnosed with prostate cancer at higher rates than other men. The reasons for this are not well understood and are likely due to a combination of genetic and environmental factors.\.br\ What are the signs or symptoms?\.br\ Symptoms of this condition include:\.br\ ? \.br\ Problems with urination. This may include:\.br\ ? \.br\ A weak or interrupted flow of urine.\.br\ ? \.br\ Trouble starting or stopping urination.\.br\ ? \.br\ Trouble emptying the bladder all the way.\.br\ ? \.br\ The need to urinate more often, especially at night.\.br\ ? \.br\ Blood in urine or semen.\.br\ ? \.br\ Persistent pain or discomfort in the lower back, lower abdomen, or hips.\.br\ ? \.br\ Trouble getting an erection.\.br\ ? \.br\ Weakness or numbness in the legs or feet.\.br\ How is this diagnosed?\.br\ This condition can be diagnosed with:\.br\ ? \.br\ A digital rectal exam. For this exam, a health care provider inserts a gloved finger into the rectum to feel the prostate gland.\.br\ ? \.br\ A blood test called a prostate-specific antigen (PSA) test.\.br\ ? \.br\ A procedure in which a sample of tissue is taken from the prostate and checked under a microscope (prostate biopsy).\.br\ ? \.br\ An imaging test called transrectal ultrasonography.\ .br\ Once the condition is diagnosed, tests will be done to determine how far the cancer has spread. This is called staging the cancer. Staging may involve imaging tests, such as a bone scan, CT scan, PET scan, or MRI.\.br\ Stages of prostate cancer\.br\ The stages of prostate cancer are as follows:\.br\ ? \.br\ Stage 1 (I). At this stage, the cancer is found in the prostate only. The cancer is not visible on imaging tests, and it is usually found by accident, such as during prostate surgery.\.br\ ? \.br\ Stage 2 (II). At this stage, the cancer is more advanced than it is in stage 1, but the cancer has not spread outside the prostate.\.br\ ? \.br\ Stage 3 (III). At this stage, the cancer has spread beyond the outer layer of the prostate to nearby tissues. The cancer may be found in the seminal vesicles, which are near the bladder and the prostate.\.br\ ? \.br\ Stage 4 (IV). At this stage, the cancer has spread to other parts of the body, such as the lymph nodes, bones, bladder, rectum, liver, or lungs.\.br\ Prostate cancer grading\.br\ Prostate cancer is also graded according to how the cancer cells look under a microscope. This is called the Judd score and the total score can range from 6?10, indicating how likely it is that the cancer will spread (metastasize) to other parts of the body. The higher the score, the greater the likelihood that the cancer will spread.\.br\ ? \.br\ [place] 6 or lower: This indicates that the cancer cells look similar to normal prostate cells (well differentiated).\ .br\ ? \.br\ Judd 7: This indicates that the cancer cells look somewhat similar to normal prostate cells (moderately differentiated).\ .br\ ? \.br\ Judd 8, 9, or 10: This indicates that the cancer cells look very different than normal prostate cells (poorly differentiated).\ .br\ How is this treated?\.br\ Treatment for this condition depends on several factors, including the stage of the cancer, your age, personal preferences, and your overall health. Talk with your health care provider about treatment options that are recommended for you. Common treatments include:\.br\ ? \.br\ Observation for early stage prostate cancer (active surveillance). This involves having exams, blood tests, and in some cases, more biopsies. For some men, this is the only treatment needed.\.br\ ? \.br\ Surgery. Types of surgeries include:\.br\ ? \.br\ Open surgery (radical prostatectomy). In this surgery, a larger incision is made to remove the prostate.\.br\ ? \.br\ A laparoscopic radical prostatectomy. This is a surgery to remove the prostate and lymph nodes through several small incisions. It is often referred to as a minimally invasive surgery.\.br\ ? \.br\ A robotic radical prostatectomy. This is laparoscopic surgery to remove the prostate and lymph nodes with the help of robotic arms that are controlled by the surgeon.\.br\ ? \.br\ Cryoablation. This is surgery to freeze and destroy cancer cells.\.br\ ? \.br\ Radiation treatment. Types of radiation treatment include:\.br\ ? \.br\ External beam radiation. This type aims beams of radiation from outside the body at the prostate to destroy cancerous cells.\.br\ ? \.br\ Brachytherapy. This type uses radioactive needles, seeds, wires, or tubes that are implanted into the prostate gland. Like external beam radiation, brachytherapy destroys cancerous cells. An advantage is that this type of radiation limits the damage to surrounding tissue and has fewer side effects.\.br\ ? \.br\ Chemotherapy. This treatment kills cancer cells or stops them from multiplying. It [facility] CHEMISTRYOrdered By: SYSTEM SYSTEM on 03-17-2024 Prostate specific Ag [Mass/Vol] 0.2 ng/mL Normal 0.1 - 3.5 ng/mL Remisol Chem Comment on above: Interpretive Data: T he concentration of PSA determined by different manufacturers can vary due to differences in assay methods and reagent specificity. Values obtained from different assay methods cannot be used interchangeably. The methodology used for this result was chemiluminescence using [employer] Access Hy[employer] PSA reagent. PSA Totalon 03-17-2024 Prostate specific Ag [Mass/Vol] 0.2 ng/mL Normal 0.1-3.5 [facility] Comment on above: Result Comment: The concentration of PSA determined by different manufacturers can vary due to differences in assay methods and reagent specificity. Values obtained from different assay methods cannot be used interchangeably. The methodology used for this result was chemiluminescence using [employer] Access Hybr[employer] PSA reagent. Performed By: #### 1 [id number] #### [facility] [address] [place] [address] Patient Educationon 03-17-20 24 Patient Education Oncology Prostate Cancer The prostate is a small gland that produces fluid that makes up semen (seminal fluid). It is located below the bladder in men, in front of the rectum. Prostate cancer is the abnormal growth of cells in the prostate gland. What are the causes? The exact cause of this condition is not known. What increases the risk? You are more likely to develop this condition if: ? You are 65 years of age or older. ? You have a family history of prostate cancer. ? You have a family history of breast and ovarian cancer. ? You have genes that are passed from parent to child (inherited), such as BRCA1 and BRCA2. ? You have Simpson syndrome. men and men of descent are diagnosed with prostate cancer at higher rates than other men. The reasons for this are not well understood and are likely due to a combination of genetic and environmental factors. What are the signs or symptoms? Symptoms of this condition include: ? Problems with urination. This may include: ? A weak or interrupted flow of urine. ? Trouble starting or stopping urination. ? Trouble emptying the bladder all the way. ? The need to urinate more often, especially at night. ? Blood in urine or semen. ? Persistent pain or discomfort in the lower back, lower abdomen, or hips. ? Trouble getting an erection. ? Weakness or numbness in the legs or feet. How is this diagnosed? This condition can be diagnosed with: ? A digital rectal exam. For this exam, a health care provider inserts a gloved finger into the rectum to feel the prostate gland. ? A blood test called a prostate-specific antigen (PSA) test. ? A procedure in which a sample of tissue is taken from the prostate and checked under a microscope (prostate biopsy). ? An imaging test called transrectal ultrasonography. Once the condition is diagnosed, tests will be done to determine how far the cancer has spread. This is called staging the cancer. Staging may involve imaging tests, such as a bone scan, CT scan, PET scan, or MRI. Stages of prostate cancer The stages of prostate cancer are as follows: ? Stage 1 (I). At this stage, the cancer is found in the prostate only. The cancer is not visible on imaging tests, and it is usually found by accident, such as during prostate surgery. ? Stage 2 (II). At this stage, the cancer is more advanced than it is in stage 1, but the cancer has not spread outside the prostate. ? Stage 3 (III). At this stage, the cancer has spread beyond the outer layer of the prostate to nearby tissues. The cancer may be found in the seminal vesicles, which are near the bladder and the prostate. ? Stage 4 (IV). At this stage, the cancer has spread to other parts of the body, such as the lymph nodes, bones, bladder, rectum, liver, or lungs. Prostate cancer grading Prostate cancer is also graded according to how the cancer cells look under a microscope. This is called the [place] score and the total score can range from 6?10, indicating how likely it is that the cancer will spread (metastasize) to other parts of the body. The higher the score, the greater the likelihood that the cancer will spread. ? Judd 6 or lower: This indicates that the cancer cells look similar to normal prostate cells (well differentiated). ? Judd 7: This indicates that the cancer cells look somewhat similar to normal prostate cells (moderately differentiated). ? Judd 8, 9, or 10: This indicates that the cancer cells look very different than normal prostate cells (poorly differentiated). How is this treated? Treatment for this condition depends on several factors, including the stage of the cancer, your age, personal preferences, and your overall health. Talk with your health care provider about treatment options that are recommended for you. Common treatments include: ? Observation for early stage prostate cancer (active surveillance). This involves having exams, blood tests, and in some cases, more biopsies. For some men, this is the only treatment needed. ? Surgery. Types of surgeries include: ? Open surgery (radical prostatectomy). In this surgery, a larger incision is made to remove the prostate. ? A laparoscopic radical prostatectomy. This is a surgery to remove the prostate and lymph nodes through several small incisions. It is often referred to as a minimally invasive surgery. ? A robotic radical prostatectomy. This is laparoscopic surgery to remove the prostate and lymph nodes with the help of robotic arms that are controlled by the surgeon. ? Cryoablation. This is surgery to freeze and destroy cancer cells. ? Radiation treatment. Types of radiation treatment include: ? External beam radiation. This type aims beams of radiation from outside the body at the prostate to destroy cancerous cells. ? Brachytherapy. This type uses radioactive needles, seeds, wires, or tubes that are implanted into the prostate gland. Like external be (more content not included)... Normal [facility] Urology Office/Clinic Noteon 03-17-2024 Urology Office/Clinic Note Chief Complaint 6m PSA HPI Staff 6 month f/u with PSA Dx: prostate cancer (EBRT 03/23/22 - 04/24/22 and Brachytherapy 05/21/22), urge incontinence, BPH with obstruction/LUTS and prostatitis Myrbetriq 50mg ER qd Did not get PSA drawn for today's appt. Last encounter states pt was not taking Tamsulosin, however verified on External Pharmacy Import that pt just filled the Tamsulosin last month. Pt is unsure as to which meds he is taking. Still dribbling. Not enough to warrant wearing protection. Denies complaints with stream History of Present Illness Tests reviewed: reviewed UA and mammogram. I have reviewed the previous health record information and history for this patient from Dr. Lambert. I have reviewed and verified the staff HPI to be accurate for this encounter. There have been no associated fever, chills, flank pain, or blood in the urine. Denies any urinary infections since last encounter. Review of Systems PHQ Score Initial Depression Screen Score: 0 SCORE ROS - Provider Constitutional: denies weight loss, denies hot flashes. Eyes: denies eye problems. Gastrointestinal: denies nausea, denies vomiting. Cardiovascular: denies chest pain or angina. Integumentary: no dryness Musculoskeletal: denies musculoskeletal symptoms. ENMT: denies otolaryngeal symptoms. Respiratory: no shortness of breath. Heme/Lymph: denies easy bleeding tendency, denies easy bruising tendency. Psychiatric: no confusion, no anxiety. Genitourinary: See HPI. Physical Exam Vitals & Measurements HT: 63 in HT: 160 cm WT: 111.5 kg WT: 245.3 lb BMI: 43.55 General Appearance: alert, no distress, well nourished, well developed male. Assessment/Plan 1. Prostate cancer (C61: Malignant neoplasm of prostate) PSA: 01/16/22 - 2.0 02/16/23 - 0.24 09/06/23- <0.1 Pt did not have PSA drawn for today's appointment. MRI prostate w/wo con [place]08/22 [facility] [place]-RADS 4 and 5. MRI fusion bx 02/05/22 - [place] 8 (4+4), 18 cores, grade group 4. NM Whole body bone scan 02/20/22 [facility] - No evidence of mets disease EBRT 03/23/22 - 04/24/22. Brachytherapy 05/21/22. Lupron given 02/27/22 and 09/04/22. Pt reported at last visit that he has been experiencing breast tenderness and enlargement. Mammogram 05/11/23 shows mild benign-appearing gynecomastia in the left retroareolar region. BI-RADS 2. PE 09/13/23: Lt breast tender upon exam. Still experiencing tingling in his breasts, however no pain. Has improved. -PSA drawn IO today -PSA in 6 months 2. Urge incontinence (N39.41: Urge incontinence) PVR (cc): 09/13/23 - 0 Taking Myrbetriq 50mg qd. Mild dribbling. Not wearing any leakage protection. 3. BPH with obstruction/lower urinary tract symptoms (N40.1: Benign prostatic hyperplasia with lower urinary tract symptoms) Last visit pt reported he was not taking Flomax. Upon reviewing external meds, pt just refilled Flomax recently. Uncertain as to which medication he is taking. C/o hesitancy. Not bothersome. -Stay on Flomax 0.4mg bid 4. History of prostatitis (Z87.438: Personal history of other diseases of male genital organs) Has been tx'd with Doxycycline and Methenamine in the past. No longer experiencing prostatitis sx. UA today neg. Follow-up With When Contact Information PETRA OVIEDO, Leila Simpson, [address] [place] [address]- Additional Instructions: 6 mos w/ PSA Patient Education Prostate Cancer I, Lolly Reid, personally scribed for Dr. Lambert on 03/17/2024 12:21:35. . Documentation recorded by the scribe, Lolly Reid, accurately reflects the services(s) I performed and decisions made by me. Authenticated by Dr. Lambert on 03/17/2024 12:26:04. Problem List/Past Medical History Ongoing Arthritis Bilateral hydrocele BPH with obstruction/lower urinary tract symptoms Dysuria Epididymitis Feeling of incomplete bladder emptying Gross hematuria High cholesterol History of prostatitis Hypertension Nocturia Prostate cancer Prostate nodule Prostatitis Urge incontinence Historical No qualifying data Procedure/Surgical History Implantation of radioactive seed into prostate (05/21/2022), MRI-US fusion guided transrectal biopsy of prostate (02/05/2022), MRI of prostate (01/08/2022), Colonoscopy. Medications atorvastatin 10 mg Tab cyclobenzaprine 10 mg Tab lisinopril 10 mg Tab Metoprolol tartrate 50 mg Tab Myrbetriq 50 mg oral tablet, extended release, 50 mg= 1 tab(s), Oral, Daily, 3 refills naproxen 500 mg Tab tamsulosin 0.4 mg Cap, 0.4 mg= 1 cap(s), Oral, BID, 3 refills Allergies No Known Medication Allergies Social History Tobacco Former smoker, quit more than 30 days ago Tobacco Use:. Never Smokeless Tobacco Use:. Cigarettes, Stopped age 61 Years. Household tobacco concerns: No. Yes, 03/17/2024 Family History Hypertension: Mother. Immunizations Vaccine Date Status Comments (more content not included)... Normal [facility] Comment on above: Result Comment: Elec tronically Signed By: Leila LAMBERT MD\.br\Date and Time Signed: 03/17/24 12:26 EDT\.br\Electronically Co-Signed By: Lolly Reid.br\Date and Time Co-Signed: 03/17/24 12:21 EDT Jay Jay 01-05-2024 L Specimen: [id number] Received: 01/05/24 Status: YEHUDA [place] Num: [id number] Spec Type: Surgical Subm Dr: Fred Kirk MD Tissues: A Colon Biopsy (RANDOM COLON BX R/O MICROSOP) B Colon Biopsy (ANASTOMATIC BX R/O ADENOMA) Procedures: HE/4, Gross/Micro L4/2 Age/ Patient Sex Location Account Attending Physician IrvingMeredith 63/M [id number] Fred Kirk MD SPEC NUM: [id number] RECD: 01/05/24 STATUS: YEHUDA DANI NUM: [id number] MICHEL: 01/05/[address]: Fred Kirk MD ENTERED: 01/05/24 [facility] DR: SPEC TYPE: Surgical DEPT: S ORDERED: HE/4, Gross/Micro L4/2 ORDERED: HE/4, Gross/Micro L4/2 Pathological Diagnosis A. Colon, Biopsy: No Evidence Of Colitis. B. Colon Anastomosis, Biopsy: Serrated Polyp. - Negative For Dysplasia And Malignancy. Clinical Information Change in bowel habits, diarrhea, rule out microscopic colitis, rule out adenoma Gross Description A. Received in formalin labeled with the patient's name, date of and random colon biopsy are six josue tissues averaging 0.2 cm. Entirely submitted in one cassette labeled A1. B. Received in formalin labeled with the patient's name, date of and anastomosis biopsy are two josue tissues averaging 0.3 cm. Entirely submitted in one cassette labeled B1. Specimen: [id number] Received: 01/05/24 Status: YEHUDA Schmid Num: [id number] Spec Type: Surgical Subm Dr: Fred Kirk MD Tissues: A Colon Biopsy (RANDOM COLON BX R/O MICROSOP) B Colon Biopsy (ANASTOMATIC BX R/O ADENOMA) Procedures: HE/4, Gross/Micro L4/2 Patient: Meredith Villatoro [id number] (Continued) Specimen: [id number] Received: 01/05/24 (Continued) Signed (signatur e on file) Ramiro Valerio MD 01/08/24 1150 Specimen: [id number] Received: 01/05/24 Status: YEHUDA Schmid Num: [id number] Spec Type: Surgical Subm Dr: Fred Kirk MD Tissues: A Colon Biopsy (RANDOM COLON BX R/O MICROSOP) B Colon Biopsy (ANASTOMATIC BX R/O ADENOMA) Procedures: HE/4, Gross/Micro L4/2 Patient: Meredith Villatoro [id number] (Continued) Specimen: [id number] Received: 01/05/24 (Continued) CPT Codes [id number] Specimen: [id number] Received: 01/05/24 Status: YEHUDA Schmid Num: [id number] Spec Type: Surgical Subm Dr: Fred Kirk MD Tissues: A Colon Biopsy (RANDOM COLON BX R/O MICROSOP) B Colon Biopsy (ANASTOMATIC BX R/O ADENOMA) Procedures: HE/4, Gross/Micro L4/2 Patient: Meredith Villatoro [id number] (Continued) Signed (signatur e on file) Clarence Valerio MD 01/08/24 1150 [facility] CNOVon 01-04-2024 CNOV Office Visit (RADTSA) ---- MEREDITH VILLATORO ([id number]) 1960 M Date Time Provider Department 01/04/24 2:45 PM Jhony LUX During your visit today, we recorded the following information about you: Temperature Pulse Respiration Blood pressure 97.1 degrees 87/minute 18/minute 102/59 Weight 111.3 kg Mansi Ocampo LPN 01/06/2024 2:35 PM Signed AUA= 13 Clinical questionnaires incomplete due to Patient declined to complete or answer questions with nurse Jhony Lux MD 01/12/2024 3:36 PM Signed Radiation Oncology - Follow Up Note PATIENT NAME: Meredith Villatoro PATIENT DIAGNOSIS: Prostate adenocarcinoma, initial PSA 2.0, biopsy [place] score 4 + 4 = 8 (grade group 4), clinical stage T2c, N0, M0, stage IIC [T1-T2, N0, M0, PSA <20, GG 4] (AJCC 8th ed.), s/p TRUS Random and MR Targeted biopsy. Prostate cancer (C61), 2019 NCCN Risk Group: High Risk Group RADIATION SUMMARY: Pelvis and prostate external radiation: 03/23/22 - 04/24/22 Prostate Brachytherapy: 05/21/22 DELIVERED DOSE: Area: PELVIS: 45Gy in 25 fractions, 2 ARCS, VMAT, 10MV WITH DAILY CBCT PROSTATE: 100Gy, Pd-103, 56 sources, 94.53 mCi INTERVAL HISTORY: Patient remains active. Has some fatigue. Has had some breast pain, underwent evaluation with mammograms showing mild gynecomastia only. States urinary function has improved but still with occasional dysuria. No hematuria. PSA HISTORY: PSA (ng/mL) Date Value 07/03/2022 0.07 PSA. (no units) Date Value 09/06/2023 <0.1 02/16/2023 0.24 ALLERGIES No Known Allergies tamsulosin (FLOMAX) 0.4 mg 1 capsule. mirabegron (MYRBETRIQ) 50 mg Tb24 Take 50 mg by mouth. indomethacin (INDOCIN) 50 mg capsule take 1 capsule by mouth twice a day with food or milk for 14 days loperamide (IMODIUM) 2 mg cap(s) Take by mouth. ibuprofen (MOTRIN) 800 mg tablet Take 1 tablet by mouth every 8 hours as needed for pain. lisinopril (ZESTRIL, PRINIVIL) 10 mg tablet Take 10 mg by mouth. atorvastatin (LIPITOR) 10 mg tablet Take 10 mg by mouth once daily. metoprolol tartrate, short acting, (LOPRESSOR) 50 mg tablet Take 50 mg by mouth. FLUTICASONE PROPIONATE NASAL Use in the nose. diphenoxylate-atrop ine (LOMOTIL) 2.5-0.025 mg per tablet take 1 tablet by mouth twice a day if needed for diarrhea alfuzosin SR (UROXATRAL) 10 mg 24 hr tablet Take 10 mg by mouth once daily. doxycycline hyclate (VIBRAMYCIN) 100 mg capsule Take 100 mg by mouth twice daily. REVIEW OF SYSTEMS: D/N = 4-6/2-3 Hematuria: none Dysuria: none Incontinence: none Urgency: moderate Catheter use: none - Total AUA Score: 18 Bowel movement frequency: 1-3/day Bowel movement quality: variable Blood per rectum: No Androgen deprivation: Currently being treated with Lupron. PHYSICAL EXAM: BP 102/59 Pulse 87 Temp 36.2 ?C (97.1 ?F) Resp 18 Wt 111.3 kg (245 lb 6 oz) SpO2 98% BMI 41.15 kg/m? KPS: 100 General Appearance: Alert and oriented. No acute distress. Rectal exam is deferred. ASSESSMENT/PLAN: Prostate adenocarcinoma, initial PSA 2.0, biopsy [place] score 4 + 4 = 8 (grade group 4), clinical stage T2c, N0, M0, stage IIC [T1-T2, N0, M0, PSA <20, GG 4] (AJCC 8th ed.), s/p TRUS Random and MR Targeted biopsy. Prostate cancer (C61), 2019 NCCN Risk Group: High Risk Group 1 prostate cancer. Overall has had a good PSA response. Has had some persistence urinary issues though improved. Continues close follow-up with Dr. Lambert. 2. Diarrhea much improved. 3. Gynecomastia likely related to ADT. Signed by: MD Angélica Zhao G Phillip, MD 01/12/2024 3:36 PM Signed Radiation Oncology - Follow Up Note PATIENT NAME: Meredith Villatoro PATIENT DIAGNOSIS: Prostate adenocarcinoma, initial PSA 2.0, biopsy [place] score 4 + 4 = 8 (grade group 4), clinical stage T2c, N0, M0, stage IIC [T1-T2, N0, M0, PSA <20, GG 4] (AJCC 8th ed.), s/p TRUS Random and MR Targeted biopsy. Prostate cancer (C61), 2019 NCCN Risk Group: High Risk Group RADIATION SUMMARY: Pelvis and prostate external radiation: 03/23/22 - 04/24/22 Prostate Brachytherapy: 05/21/22 DELIVERED DOSE: Area: PELVIS: 45Gy in 25 fractions, 2 ARCS, VMAT, 10MV WITH DAILY CBCT PROSTATE: 100Gy, Pd-103, 56 sources, 94.53 mCi INTERVAL HISTORY: Patient remains active. Still with some ongoing issues of bowel frequency. Has follow-up scheduled with gastroenterology. Denies other new issues or problems. PSA HISTORY: PSA (ng/mL) Date Value 07/03/2022 0.07 PSA. (no units) Date Value 09/06/2023 <0.1 02/16/2023 0.24 ALLERGIES No Known Allergies tamsulosin (FLOMAX) 0.4 mg 1 capsule. mirabegron (MYRBETRIQ) 50 mg Tb24 Take 50 mg by mouth. indomethacin (INDOCIN) 50 mg capsule take 1 capsule by mouth twice a day with food or milk for 14 days loperamide (IMODIUM) 2 mg cap(s) Take by mouth. ibuprofen (MOTRIN) 800 m (more content not included)... Normal [facility] Basophils Auto (Bld) [#/Vol] Ordered By: Fred Kirk on 11-30-2023 Basophils (Bld) [#/Vol] 0.0 10*3/uL 0.0-0.2 [facility] Basophils/100 WBC Auto (Bld) Ordered By: Fred Kirk on 11-30-2023 Basophils/100 WBC (Bld) 0.8 % . [facility] Celiacon 11-30-2023 Deamidated Gliadin Abs, IgA 5 Normal 0- [facility] Comment on above: Order Comment: Reaso n for Exam Chronic diarrhea;Gas;Abdominal pain Result Comment: Nega tive 0 - 19 Weak Positive 20 - 30 Moderate to Strong Positive >30 Performed By: #### C ELIAC #### [facility] , #### TSH3, CBC #### [facility] [address] Deamidated Gliadin Abs, IgG 2 Normal 0-19 [facility] Comment on above: Order Comment: Reaso n for Exam Chronic diarrhea;Gas;Abdominal pain Result Comment: Nega tive 0 - 19 Weak Positive 20 - 30 Moderate to Strong Positive >30 Performed By: #### C ELIAC #### [facility] , #### TSH3, CBC #### [facility] [address] [place] [address] [place] Endomysial Antibody IgA Negative Normal Negative [facility] Comment on above: Order Comment: Reaso n for Exam Chronic diarrhea;Gas;Abdominal pain Performed By: #### C ELIAC #### [facility] , #### TSH3, CBC #### [facility] [address] [place] [address] Immunoglobulin A, Qn, Serum 205 mg/dL Normal 61-437 [facility] Comment on above: Order Comment: Reaso n for Exam Chronic diarrhea;Gas;Abdominal pain Result Comment: Perf ormed at: [facility] [id number] [employer] Project Engineer: Mehran Ortega PhD, Phone: [phone] PERFORMED BY: [place] [address] PATHOLOGIST CLINIC SCHEDULER RAMAN KYLE M.D. Performed By: #### C ELIAC #### [facility] , #### TSH3, CBC #### [facility] [address] [place] [address] T-Transglutaminase (tTG) IgA <2 Normal 0-3 [facility] Comment on above: Order Comment: Reaso n for Exam Chronic diarrhea;Gas;Abdominal pain Result Comment: Nega tive 0 - 3 Weak Positive 4 - 10 Positive >10 Tissue Transglutaminase (tTG) has been identified as the endomysial antigen. Studies have demonstr- ated that endomysial IgA antibodies have over 99% specificity for gluten sensitive enteropathy. Performed By: #### C ELIAC #### [facility] , #### TSH3, CBC #### [facility] [address] [place] [address] T-Transglutaminase (tTG) IgG 3 Normal 0-5 [facility] Comment on above: Order Comment: Reaso n for Exam Chronic diarrhea;Gas;Abdominal pain Result Comment: Nega tive 0 - 5 Weak Positive 6 - 9 Positive >9 Performed By: #### C ELIAC #### [facility] , #### TSH3, CBC #### [facility] [address] [place] [address] Complete Blood Count Auto Di ffon 11-30-2023 Basophils (Bld) [#/Vol] 0.0 10*3/uL Normal 0.0-0.2 [facility] Comment on above: Order Comment: Reaso n for Exam Chronic diarrhea;Gas;Abdominal pain Result Comment: PERF ORMED BY: [place] [address] PATHOLOGIST CLINIC SCHEDULER RAMAN KYLE M.D. Performed By: #### C ELIAC #### [facility] , #### TSH3, CBC #### [address] Basophils/100 WBC (Bld) 0.8 % Normal . [facility] Comment on above: Order Comment: Reaso n for Exam Chronic diarrhea;Gas;Abdominal pain Performed By: #### C ELIAC #### [facility] , #### TSH3, CBC #### [facility] [address] [place] [address] Eosinophils (Bld) [#/Vol] 0.1 10*3/uL Normal 0.0-0.45 [facility] Comment on above: Order Comment: Reaso n for Exam Chronic diarrhea;Gas;Abdominal pain Performed By: #### C ELIAC #### [facility] , #### TSH3, CBC #### [facility] [address] [place] [address] [place] Eosinophils/100 WBC (Bld) 1.5 % Normal . [facility] Comment on above: Order Comment: Reaso n for Exam Chronic diarrhea;Gas;Abdominal pain Performed By: #### C ELIAC #### [facility] , #### TSH3, CBC #### [address] Erythrocyte distribution width (RBC) [Ratio] 13.1 % Normal 12.0-14.8 [facility] Comment on above: Order Comment: Reaso n for Exam Chronic diarrhea;Gas;Abdominal pain Performed By: #### C ELIAC #### [facility] , #### TSH3, CBC #### [address] Hematocrit (Bld) [Volume fraction] 42.5 % Normal 38.8-50.0 [facility] Comment on above: Order Comment: Reaso n for Exam Chronic diarrhea;Gas;Abdominal pain Performed By: #### C ELIAC #### [facility] , #### TSH3, CBC #### [address] Hemoglobin (Bld) [Mass/Vol] 14.8 g/dL Normal 13.0-17.0 [facility] Comment on above: Order Comment: Reaso n for Exam Chronic diarrhea;Gas;Abdominal pain Performed By: #### C ELIAC #### [facility] , #### TSH3, CBC #### [address] Lymphocytes (Bld) [#/Vol] 0.7 10*3/uL Low 1.00-4.8 [facility] Comment on above: Order Comment: Reaso n for Exam Chronic diarrhea;Gas;Abdominal pain Performed By: #### C ELIAC #### [facility] , #### TSH3, CBC #### [place] [address] [place] Lymphocytes/100 WBC (Bld) 11.9 % Normal . [facility] Comment on above: Order Comment: Reaso n for Exam Chronic diarrhea;Gas;Abdominal pain Performed By: #### C ELIAC #### [facility] , #### TSH3, CBC #### [address] MCH (RBC) [Entitic mass] 31.4 pg Normal 27.5-35.2 [facility] Comment on above: Order Comment: Reaso n for Exam Chronic diarrhea;Gas;Abdominal pain Performed By: #### C ELIAC #### [facility] , #### TSH3, CBC #### [facility] [address] MCV (RBC) [Entitic vol] 90.4 fL Normal 83.5-101 [facility] Comment on above: Order Comment: Reaso n for Exam Chronic diarrhea;Gas;Abdominal pain Performed By: #### C ELIAC #### [facility] , #### TSH3, CBC #### [address] Mean Corpuscular HGB Conc 34.8 g/dL Normal 32.5-35.6 [facility] Comment on above: Order Comment: Reaso n for Exam Chronic diarrhea;Gas;Abdominal pain Performed By: #### C ELIAC #### [facility] , #### TSH3, CBC #### [address] Monocytes (Bld) [#/Vol] 0.5 10*3/uL Normal 0.0-0.8 [facility] Comment on above: Order Comment: Reaso n for Exam Chronic diarrhea;Gas;Abdominal pain Performed By: #### C ELIAC #### [facility] , #### TSH3, CBC #### [facility] [address] Monocytes/100 WBC (Bld) 7.4 % Normal . [facility] Comment on above: Order Comment: Reaso n for Exam Chronic diarrhea;Gas;Abdominal pain Performed By: #### C ELIAC #### [facility] , #### TSH3, CBC #### [address] Neutrophils (Bld) [#/Vol] 4.8 10*3/uL Normal 1.8-7.7 [facility] Comment on above: Order Comment: Reaso n for Exam Chronic diarrhea;Gas;Abdominal pain Performed By: #### C ELIAC #### [facility] , #### TSH3, CBC #### [facility] [address] Neutrophils/100 WBC (Bld) 78.4 % Normal . [facility] Comment on above: Order Comment: Reaso n for Exam Chronic diarrhea;Gas;Abdominal pain Performed By: #### C ELIAC #### [facility] , #### TSH3, CBC #### [facility] [address] NRBC% 0.1 /100{WBC} Normal 0-0.5 [facility] Comment on above: Order Comment: Reaso n for Exam Chronic diarrhea;Gas;Abdominal pain Performed By: #### C ELIAC #### [facility] , #### TSH3, CBC #### [facility] [address] Platelet mean volume (Bld) [Entitic vol] 7.4 fL Normal 6.6-10.1 [facility] Comment on above: Order Comment: Reaso n for Exam Chronic diarrhea;Gas;Abdominal pain Performed By: #### C ELIAC #### [facility] , #### TSH3, CBC #### [facility] [address] [place] [address] [place] Platelets (Bld) [#/Vol] 187 10*3/uL Normal 150-450 [facility] Comment on above: Order Comment: Reaso n for Exam Chronic diarrhea;Gas;Abdominal pain Performed By: #### C ELIAC #### [facility] , #### TSH3, CBC #### [facility] [address] [place] [address] [place] RBC (Bld) [#/Vol] 4.70 10*6/uL Normal 3.90-5.60 [facility] Comment on above: Order Comment: Reaso n for Exam Chronic diarrhea;Gas;Abdominal pain Performed By: #### C ELIAC #### [facility] , #### TSH3, CBC #### [facility] [address] WBC (Bld) [#/Vol] 6.2 10*3/uL Normal 4.1-10.5 [facility] Comment on above: Order Comment: Reaso n for Exam Chronic diarrhea;Gas;Abdominal pain Performed By: #### C ELIAC #### [facility] , #### TSH3, CBC #### [facility] [address] Eosinophils Auto (Bld) [#/Vo l]Ordered By: Fred Kirk on 11-30-2023 Eosinophils (Bld) [#/Vol] 0.1 10*3/uL 0.0-0.45 [facility] Eosinophils/100 WBC Auto (Bl d)Ordered By: Fred Kirk on 11-30-2023 Eosinophils/100 WBC (Bld) 1.5 % . [facility] Erythrocyte distribution wid th Auto (RBC) [Ratio]Ordered By: Fred Kirk on 11-30-2023 Erythrocyte distribution width (RBC) [Ratio] 13.1 % 12.0-14.8 [facility] Hematocrit Auto (Bld) [Volum e fraction]Ordered By: Fred Kirk on 11-30-2023 Hematocrit (Bld) [Volume fraction] 42.5 % 38.8-50.0 [facility] Hemoglobin [Mass/volume] in BloodOrdered By: Fred Kirk on 11-30-2023 Hemoglobin (Bld) [Mass/Vol] 14.8 g/dL 13.0-17.0 [facility] IgA [Mass/volume] in Serum o r PlasmaOrdered By: Fred Kirk on 11-30-2023 IgA [Mass/Vol] 205 mg/dL 61-437 [facility] Comment on above: Performed at: [address], [place] [id number] Director: Mehran Ortega PhD, Phone: [phone] Leukocytes [#/volume] correc ori for nucleated erythrocytes in Blood by Automated counOrdered By: Fred Kirk on 11-30-2023 WBC corrected for nucl RBC Auto (Bld) [#/Vol] 6.2 10*3/uL 4.1-10.5 [facility] Lymphocytes Auto (Bld) [#/Vo l]Ordered By: Fred Kirk on 11-30-2023 Lymphocytes (Bld) [#/Vol] 0.7 10*3/uL 1.00-4.8 [facility] Lymphocytes/100 WBC Auto (Bl d)Ordered By: Fred Kirk on 11-30-2023 Lymphocytes/100 WBC (Bld) 11.9 % . [facility] MCH Auto (RBC) [Entitic mass ]Ordered By: Fred Kirk on 11-30-2023 MCH (RBC) [Entitic mass] 31.4 pg 27.5-35.2 [facility] MCHC Auto (RBC) [Mass/Vol]Or dered By: Fred Kirk on 11-30-2023 MCHC (RBC) [Mass/Vol] 34.8 g/dL 32.5-35.6 [facility] MCV Auto (RBC) [Entitic vol] Ordered By: Fred Kirk on 11-30-2023 MCV (RBC) [Entitic vol] 90.4 fL 83.5-101 [facility] Monocytes Auto (Bld) [#/Vol] Ordered By: Fred Kirk on 11-30-2023 Monocytes (Bld) [#/Vol] 0.5 10*3/uL 0.0-0.8 [facility] Monocytes/100 WBC Auto (Bld) Ordered By: Fred Kirk on 11-30-2023 Monocytes/100 WBC (Bld) 7.4 % . [facility] Neutrophils Auto (Bld) [#/Vo l]Ordered By: Fred Kirk on 11-30-2023 Neutrophils (Bld) [#/Vol] 4.8 10*3/uL 1.8-7.7 [facility] Neutrophils/100 WBC Auto (Bl d)Ordered By: Fred Kirk on 11-30-2023 Neutrophils/100 WBC (Bld) 78.4 % . [facility] No Panel InformationOrdered By: Fred Kirk on 11-30-2023 Endomysial IgA Antibody Negative Negative [facility] Nucleated erythrocytes [Pres ence] in Blood by Automated countOrdered By: Fred Kirk on 11-30-2023 Nucleated RBC Auto Ql (Bld) 0.1 /100{WBC} 0-0.5 [facility] Platelet mean volume Auto (B ld) [Entitic vol]Ordered By: Fred Kirk on 11-30-2023 Platelet mean volume (Bld) [Entitic vol] 7.4 fL 6.6-10.1 [facility] Platelets Auto (Bld) [#/Vol] Ordered By: Fred Kirk on 11-30-2023 Platelets (Bld) [#/Vol] 187 10*3/uL 150-450 [facility] RBC Auto (Bld) [#/Vol]Ordere d By: Fred Kirk on 11-30-2023 RBC (Bld) [#/Vol] 4.70 10*6/uL 3.90-5.60 [facility] Serum gliadin peptide IgA an tibody assay (units/volume)Ordered By: Fred Kirk on 11-30-2023 Gliadin peptide IgA Qn (S) 5 units 0-19 [facility] Comment on above: Negative 0 - 19 Weak Positive 20 - 30 Moderate to Strong Positive >30 Serum gliadin peptide IgG an tibody assay (units/volume)Ordered By: Fred Kirk on 11-30-2023 Gliadin peptide IgG Qn (S) 2 units 0-19 [facility] Comment on above: Negative 0 - 19 Weak Positive 20 - 30 Moderate to Strong Positive >30 Serum tissue transglutaminas e (tTG) IgA antibody assay (units/volume)Ordered By: Fred Kirk on 11-30-2023 tTG IgA Qn (S) <2 U/mL 0-3 [facility] Comment on above: Negative 0 - 3 Weak Positive 4 - 10 Positive >10 Tissue Transglutaminase (tTG) has been identified as the endomysial antigen. Studies have demonstr- ated that endomysial IgA antibodies have over 99% specificity for gluten sensitive enteropathy. Serum tissue transglutaminas e (tTG) IgG antibody assay (units/volume)Ordered By: Fred Kirk on 11-30-2023 tTG IgG Qn (S) 3 U/mL 0-5 [facility] Comment on above: Negative 0 - 5 Weak Positive 6 - 9 Positive >9 Thyroid Stimulating Hormoneo n 11-30-2023 TSH Qn 2.85 m[IU]/L Normal 0.45-5.33 [facility] Comment on above: Order Comment: Reaso n for Exam Chronic diarrhea;Gas;Abdominal pain Result Comment: PERF ORMED BY: [place] [address] PATHOLOGIST CLINIC SCHEDULER RAMAN KYLE M.D. Performed By: #### C ELIAC #### [facility] , #### TSH3, CBC #### [facility] [address] Thyrotropin [Units/volume] i n Serum or PlasmaOrdered By: Fred Kirk on 11-30-2023 TSH Qn 2.85 m[IU]/L 0.45-5.33 [facility] WBC Auto (Bld) [#/Vol]Ordere d By: Fred Kirk on 11-30-2023 WBC (Bld) [#/Vol] 6.2 10*3/uL 4.1-10.5 [facility] CNOVon 07-06-2023 CNOV Office Visit (RADTSA) ---- MEREDITH VILLATORO ([id number]) 1960 Date Time Provider Department 07/06/23 1:45 PM Jhony LUX During your visit today, we recorded the following information about you: Temperature Pulse Respiration Blood pressure 96.3 degrees 64/minute 18/minute 117/75 Weight 110.9 kg Jhony Lux MD 07/08/2023 8:45 AM Signed Radiation Oncology - Follow Up Note PATIENT NAME: Meredith Villatoro PATIENT DIAGNOSIS: Prostate adenocarcinoma, initial PSA 2.0, biopsy Judd score 4 + 4 = 8 (grade group 4), clinical stage T2c, N0, M0, stage IIC [T1-T2, N0, M0, PSA <20, GG 4] (AJCC 8th ed.), s/p TRUS Random and MR Targeted biopsy. Prostate cancer (C61), 2019 NCCN Risk Group: High Risk Group RADIATION SUMMARY: Pelvis and prostate external radiation: 03/23/22 - 04/24/22 Prostate Brachytherapy: 05/21/22 DELIVERED DOSE: Area: PELVIS: 45Gy in 25 fractions, 2 ARCS, VMAT, 10MV WITH DAILY CBCT PROSTATE: 100Gy, Pd-103, 56 sources, 94.53 mCi INTERVAL HISTORY: Patient remains active. Has some fatigue. Has had some breast pain, underwent evaluation with mammograms showing mild gynecomastia only. States urinary function has improved but still with occasional dysuria. No hematuria. PSA HISTORY: PSA (ng/mL) Date Value 07/03/2022 0.07 PSA. (no units) Date Value 02/16/2023 0.24 ALLERGIES No Known Allergies indomethacin (INDOCIN) 50 mg capsule take 1 capsule by mouth twice a day with food or milk for 14 days loperamide (IMODIUM) 2 mg cap(s) Take by mouth. ibuprofen (MOTRIN) 800 mg tablet Take 1 tablet by mouth every 8 hours as needed for pain. diphenoxylate-atrop ine (LOMOTIL) 2.5-0.025 mg per tablet take 1 tablet by mouth twice a day if needed for diarrhea alfuzosin SR (UROXATRAL) 10 mg 24 hr tablet Take 10 mg by mouth once daily. lisinopril (ZESTRIL, PRINIVIL) 10 mg tablet Take 10 mg by mouth. atorvastatin (LIPITOR) 10 mg tablet Take 10 mg by mouth once daily. metoprolol tartrate, short acting, (LOPRESSOR) 50 mg tablet Take 50 mg by mouth. doxycycline hyclate (VIBRAMYCIN) 100 mg capsule Take 100 mg by mouth twice daily. FLUTICASONE PROPIONATE NASAL Use in the nose. REVIEW OF SYSTEMS: D/N = 4-6/2-3 Hematuria: none Dysuria: none Incontinence: none Urgency: moderate Catheter use: none - Total AUA Score: 18 Bowel movement frequency: 1-3/day Bowel movement quality: variable Blood per rectum: No Androgen deprivation: Currently being treated with Lupron. PHYSICAL EXAM: BP 117/75 Pulse 64 Temp (!) 35.7 ?C (96.3 ?F) Resp 18 Wt 110.9 kg (244 lb 9.6 oz) SpO2 97% BMI 41.02 kg/m? KPS: 100 General Appearance: Alert and oriented. No acute distress. Rectal exam is deferred. ASSESSMENT/PLAN: Prostate adenocarcinoma, initial PSA 2.0, biopsy [place] score 4 + 4 = 8 (grade group 4), clinical stage T2c, N0, M0, stage IIC [T1-T2, N0, M0, PSA <20, GG 4] (AJCC 8th ed.), s/p TRUS Random and MR Targeted biopsy. Prostate cancer (C61), 2019 NCCN Risk Group: High Risk Group 1 prostate cancer. Overall has had a good PSA response. Has had some persistence urinary issues though improved. Continues close follow-up with Dr. Lambert. 2. Diarrhea much improved. 3. Gynecomastia likely related to ADT. Signed by: MD Katlin Zhao Angela, RN 07/08/2023 8:45 AM Signed AUA 18 Michelle Dalal RN Referring Provider: ADRIAN FLORES [[id number]] Allergies As of Date: 07/06/2023 (No Known Allergies) Date Reviewed: 07/06/2023 Reviewed by: Michelle Dalal RN - Fully Assessed Reason for Visit: Prostate Cancer [590] Primary Visit Diagnosis:Malignant neoplasm of prostate (HCC) [C61] Other Visit Diagnosis:Gynecomas tia, male [N62] Order(s):PSA (OUTSIDE) [3604868] Order #: [id number] Prescriptions as of 07/08/2023 - indomethacin (INDOCIN) 50 mg capsule take 1 capsule by mouth twice a day with food or milk for 14 days - loperamide (IMODIUM) 2 mg cap(s) Take by mouth. - ibuprofen (MOTRIN) 800 mg tablet Take 1 tablet by mouth every 8 hours as needed for pain. - diphenoxylate-atrop ine (LOMOTIL) 2.5-0.025 mg per tablet take 1 tablet by mouth twice a day if needed for diarrhea - alfuzosin SR (UROXATRAL) 10 mg 24 hr tablet Take 10 mg by mouth once daily. - lisinopril (ZESTRIL, PRINIVIL) 10 mg tablet Take 10 mg by mouth. - atorvastatin (LIPITOR) 10 mg tablet Take 10 mg by mouth once daily. - metoprolol tartrate, short acting, (LOPRESSOR) 50 mg tablet Take 50 mg by mouth. - doxycycline hyclate (VIBRAMYCIN) 100 mg capsule Take 100 mg by mouth twice daily. - FLUTICASONE PROPIONATE NASAL Use in the nose. Problem List As Of Date 07/06/2023 Noted Resolved Prostate cancer (HCC) [C61] 01/05/2023 Visit Notes: >> Michelle Dalal RN [place] Jul 06, 2023 1:52 PM Status: Signed AUA 18 Michelle Dalal RN Disposition: Return in about 6 months (around (more content not included)... Normal [facility] CHEMISTRYOrdered By: SYSTEM SYSTEM on 01-20-2023 Anion gap [Moles/Vol] 13 mmol/L Normal 6 - 16 mEq/L [facility] Calcium [Mass/Vol] 9.4 mg/dL Normal 8.9 - 11.1 mg/dL [facility] Chloride [Moles/Vol] 99 mmol/L Low 101 - 111 mmol/ L [facility] CO2 [Moles/Vol] 25 mmol/L Normal 21 - 31 mmol/L [facility] Creatinine [Mass/Vol] 1.1 mg/dL Normal 0.5 - 1.3 mg/d L [facility] Remisol GFR/1.73 sq M.predicted among blacks MDRD (S/P/Bld) [Vol rate/Area] mL/min/1.73 m2 Normal >=59mL/min/1.73 m2 [facility] Chem S GFR/1.73 sq M.predicted among non-blacks MDRD (S/P/Bld) [Vol rate/Area] mL/min/1.73 m2 Normal >=59mL/min/1.73 m2 [facility] Chem S Glucose [Mass/Vol] 139 mg/dL Normal 55 - 199 mg/dL [facility] Remisol Potassium [Moles/Vol] 4.5 mmol/L Normal 3.5 - 5.3 mmol /L [facility] Remisol Sodium [Moles/Vol] 132 mmol/L Low 135 - 145 mmol/L [facility] Remisol Urea nitrogen [Mass/Vol] 28 mg/dL High 5 - 21 mg/dL [facility] Remisol Urea nitrogen/Creatinine [Mass ratio] 26 mg/mg High 10 - 20 [facility] Remisol HEMATOLOGYOrdered By: Damian Sanchez on 01-20-2023 Erythrocyte distribution width (RBC) [Ratio] 12.7 % Normal 10.9 - 14.2 % [facility] HemeAutoSS Hematocrit (Bld) [Volume fraction] 45.6 % Normal 37.7 - 49.0 % [facility] HemeAutoSS Hemoglobin (Bld) [Mass/Vol] 15.3 g/dL Normal 13.5 - 17.5 gm/dL [facility] HemeAutoSS MCH (RBC) [Entitic mass] 31.0 pg Normal 27.0 - 34.0 pg [facility] HemeAuto[facility] MCHC (RBC) [Mass/Vol] 33.5 g/dL Normal 31.4 - 36.0 gm /dL [facility]eAuto[facility] MCV (RBC) [Entitic vol] 92.4 fL Normal 80.0 - 100.0 fL [facility]eAuto[facility] Platelet mean volume (Bld) [Entitic vol] 7.7 fL Normal 6.4 - 10.8 fL [facility] HemeAutoSS Platelets (Bld) [#/Vol] 198.0 E9/L Normal 150.0 - 500.0 E9/L [facility] HemeAutoSS RBC (Bld) [#/Vol] 4.9 E12/L Normal 4.3 - 5.9 E12/L [facility] HemeAutoSS WBC corrected for nucl RBC Auto (Bld) [#/Vol] 4.8 E9/L Normal 4.0 - 11.0 E9/L [facility] HemeAutoSS XR PELVIS 1_2 VIEWSon 2021 XR PELVIS 1_2 VIEWS EXAM: XR PELVIS 1_2 VIEWS HISTORY: Malignant tumor of prostate COMPARISON: None. TECHNIQUE: FINDINGS: A single intraoperative spot fluoroscopic image shows numerous radioactive seeds projected over region of prostate. Lower portion of a contrast-filled urinary bladder is visible without appreciable extravasation. IMPRESSION: 1. Radioactive seeding of the prostate without appreciable bladder involvement. Electronically authenticated by: KOBE DOOLEY Date: 2022-05-22 06:41 Normal [facility] CBC W MANUAL DIFFon 05-14-20 22 ATYPICAL LYMPH # Normal [facility] Comment on above: Performed By: #### C BCMAN #### [facility] [address] [place] [address] Dr. Lui Maloney ATYPICAL LYMPH % Normal [facility] Comment on above: Performed By: #### C BCMAN #### [facility] [address] [place] [address] Dr. Lui Maloney BAND # Normal 0.0-0.3 [facility] Comment on above: Performed By: #### C BCMAN #### [facility] [address] [place] [address] Dr. Lui Maloney BAND % Normal 0-5 [facility] Comment on above: Performed By: #### C BCMAN #### [facility] [address] [place] [address] Dr. Lui Maloney BASOM # 0.00 103/ul Normal 0.00-0.10 [facility] Comment on above: Performed By: #### C BCMAN #### [facility] [address] [place] [address] Dr. Lui Maloney BASOM % 0.0 % Critically low 0.2-2.0 [facility] Comment on above: Performed By: #### C BCMAN #### [facility] [address] [place] [address] Dr. Lui Maloney BLAST # Normal [facility] Comment on above: Performed By: #### C BCMAN #### [facility] [address] [place] [address] Dr. Lui Maloney BLAST % Normal [facility] Comment on above: Performed By: #### C BCMAN #### [facility] [address] [place] [address] Dr. Lui Maloney CORRECTED WBC Normal 4.0-11.[address] [facility] Comment on above: Performed By: #### C ALEX #### [facility] [address] [address] [address] Lui Maloney EOS # 0.21 103/ul Normal 0.00-0.70 [facility] Comment on above: Performed By: #### C ALEX #### [facility] [address] [address] [address] Lui Maloney EOS% 5.0 % Normal 0.9-7.0 [facility] Comment on above: Performed By: #### C ALEX #### [facility] [address] [address] [address] Lui Maloney HCT 41.6 % Critically low 42.0-54.0 [facility] Comment on above: Performed By: #### C ALEX #### [facility] [address] [address] [address] Lui Maloney HGB 14.5 g/dl Normal 14.0-18.0 [facility] Comment on above: Performed By: #### C ALEX #### [facility] [address] [address] [address] Lui Maloney LYMPHM # 0.63 103/ul Critically low 1.20-3.80 [facility] Comment on above: Performed By: #### C ALEX #### [facility] [address] [address] [address] Lui Maloney LYMPHM% 15.0 % Critically low 20.5-60.0 [facility] Comment on above: Performed By: #### C ALEX #### [facility] [address] [address] [address] Lui Maloney MCH 31.1 pg Normal 25.9-34.0 [facility] Comment on above: Performed By: #### C ALEX #### [facility] [address] [address] [address] Lui Maloney MCHC 34.9 g/dl Normal 29.9-35.2 [facility] Comment on above: Performed By: #### C ALEX #### [facility] [address] [address] [address] Lui Maloney MCV 89.3 fL Normal 80.0-94.0 [facility] Comment on above: Performed By: #### C ALEX #### [facility] [address] [place] [address] Dr. Lui Maloney METAMYELOCYTE # Normal [facility] Comment on above: Performed By: #### C ALEX #### [facility] [address] [place] [address] Dr. Lui Maloney METAMYELOCYTE % Normal [facility] Comment on above: Performed By: #### C ALEX #### [facility] [address] [place] [address] Dr. Lui Maloney MONOM# 0.29 103/ul Critically low 0.30-0.[address] [facility] Comment on above: Performed By: #### C ALEX #### [facility] [address] [place] [address] Dr. Lui Maloney MONOM% 7.0 % Normal 1.7-12.0 [facility] Comment on above: Performed By: #### C ALEX #### [facility] [address] [place] [address] Dr. Lui Maloney MPV 9.4 fL Critically low 9.5-13.5 [facility] Comment on above: Performed By: #### C ALEX #### [facility] [address] [place] [address] Dr. Lui Maloney MYELOCYTE # Normal [facility] Comment on above: Performed By: #### C ALEX #### [facility] [address] [place] [address] Dr. Lui Maloney MYELOCYTE % Normal [facility] Comment on above: Performed By: #### C ALEX #### [facility] [address] [place] [address] Dr. Lui Maloney NRBC Normal [facility] Comment on above: Performed By: #### C ALEX #### [facility] [address] [address] [address] Lui Maloney PLT 155 103/ul Normal 150-450 [facility] Comment on above: Performed By: #### C ALEX #### [facility] [address] [place] [address] Dr. Lui Maloney RBC 4.66 106/ul Critically low 4.70-6.[address] [facility] Comment on above: Performed By: #### C ALEX #### [facility] [address] [place] [address] Dr. Lui Maloney RDW 13.4 % Normal 11.0-15.0 [facility] Comment on above: Performed By: #### C ALEX #### [facility] [address] [place] [address] Dr. Lui Maloney SEG # 3.07 103/ul Normal 1.40-6.50 [facility] Comment on above: Performed By: #### C ALEX #### [facility] [address] [place] [address] Dr. Lui Maloney SEG % 73.0 % Normal 43.0-75.0 [facility] Comment on above: Performed By: #### C ALEX #### [facility] [address] [place] [address] Dr. Lui Maloney WBC 4.2 103/ul Normal 4.0-11.0 [facility] Comment on above: Performed By: #### C ALEX #### [facility] [address] [place] [address] Dr. Lui Maloney PROF CHEM 8 (BAS METB)on Anion gap [Moles/Vol] 12.2 mmol/L Normal [facility] Comment on above: Performed By: #### B MP #### [facility] [address] [place] [address] Dr. Lui Maloney Calcium [Mass/Vol] 8.9 mg/dL Normal 8.5-10.1 [facility] Comment on above: Performed By: #### B MP #### [facility] [address] [address] [address] Lui Maloney Chloride [Moles/Vol] 108 mmol/L Critically high 98-107 [facility] Comment on above: Performed By: #### B MP #### [facility] [address] [address] [address] Lui Maloney CO2 [Moles/Vol] 25.1 mmol/L Normal 21.0-32.0 [facility] Comment on above: Performed By: #### B MP #### [facility] [address] [place] [address] Dr. Lui Maloney Creatinine [Mass/Vol] 0.92 mg/dL Normal 0.70-1.30 [facility] Comment on above: Performed By: #### B MP #### [facility] [address] [place] [address] Dr. Lui Maloney EGFR-AF ROMANIAN >60 Normal >=60 [facility] Comment on above: Performed By: #### B MP #### [facility] [address] [address] [address] Lui Maloney EGFR-NON AF ROMANIAN >60 Normal >=60 [facility] Comment on above: Performed By: #### B MP #### [facility] [address] [address] [address] Lui Maloney Glucose [Mass/Vol] 128 mg/dL Critically high 74-106 [facility] Comment on above: Performed By: #### B MP #### [facility] [address] [place] [address] Dr. Lui Maloney Potassium [Moles/Vol] 4.3 mmol/L Normal 3.5-5.1 [facility] Comment on above: Performed By: #### B MP #### [facility] [address] [address] [address] Lui Maloney Sodium [Moles/Vol] 141 mmol/L Normal 136-145 [facility] Comment on above: Performed By: #### B MP #### [facility] [address] [address] [address] Lui Maloney Urea nitrogen [Mass/Vol] 11.0 mg/dL Normal 7.0-18.0 [facility] Comment on above: Performed By: #### B MP #### [facility] [address] [place] [address] Dr. Lui Maloney Urea nitrogen/Creatinine [Mass ratio] 12.0 mg/mg Normal [facility] Comment on above: Performed By: #### B MP #### [facility] [address] [place] [address] Dr. Lui Maloney PROTIMEon 05-14-2022 INR Coag (PPP) [Relative time] 0.94 {INR} Normal [facility] Comment on above: Performed By: #### P T, PTT #### [facility] [address] [place] [address] Dr. Lui Maloney INR GUIDELINES SEE BELOW Normal [facility] Comment on above: Result Comment: ADARSH RED INR: 2.0 - 3.0 CONDITIONS NOT LISTED BELOW 2.5 - 3.5 FOR PROSTHETIC HEART VALVE REPLACEMENT 2.5 - 3.5 RECURRENT THROMBOSIS Performed By: #### P T, PTT #### [facility] [address] [place] [address] Dr. Lui Mlaoney PT Coag (PPP) [Time] 10.2 s Normal 9.0-11.6 [facility] Comment on above: Performed By: #### P T, PTT #### [facility] [address] [place] [address] Dr. Lui Maloney PTTon 05-14-2022 aPTT Coag (Bld) [Time] 26.1 s Normal 22.3-36.2 [facility] Comment on above: Performed By: #### P T, PTT #### [facility] [address] [place] [address] Dr. Lui Maloney XR CHEST 2 Von 05-14-2022 XR CHEST 2 V EXAM: XR CHEST 2 V HISTORY: Essential hypertension EXAM: XR CHEST 2 V INDICATION: 61 years old Male Essential hypertension COMPARISON: January 29, 2022 FINDINGS: The cardiac silhouette is normal. There is no pulmonary edema. The lungs are clear. There is no pneumonia. There is no pneumothorax. There is no abnormal foreign body. IMPRESSION: There is no acute abnormality. Electronically authenticated by: KEVIN ESPAÑA Date: 2022-05-14 12:46 Normal [facility] CBC W Auto Differential pane l (Bld)on 04-02-2022 Abs Immature Gran <0.03 <0.10 k/uL [facility] Basophils (Bld) [#/Vol] 10*3/uL <0.11 k/uL [facility] Basophils/100 WBC (Bld) 0.5 % [facility] Differential cell count method Nom (Bld) Auto [facility] Eosinophils (Bld) [#/Vol] 0.11 10*3/uL <0.46 k/uL [facility] Eosinophils/100 WBC (Bld) 2.5 % [facility] Erythrocyte distribution width (RBC) [Ratio] 12.1 % 11.5 - 15.0 % [facility] Hematocrit (Bld) [Volume fraction] 46.1 % 39.0 - 51.0 % [facility] Hemoglobin (Bld) [Mass/Vol] 16.2 g/dL 13.0 - 17.0 g/dL [facility] Immature Gran % 0.2 % [facility] Lymphocytes (Bld) [#/Vol] 0.88 10*3/uL Low 1.00 - 4.00 k/uL [facility] Lymphocytes/100 WBC (Bld) 20.2 % [facility] MCH (RBC) [Entitic mass] 31.0 pg 26.0 - 34.0 pg [facility] MCHC (RBC) [Mass/Vol] 35.1 g/dL 30.5 - 36.0 g/ dL [facility] MCV (RBC) [Entitic vol] 88.3 fL 80.0 - 100.0 fL [facility] Monocytes (Bld) [#/Vol] 0.39 10*3/uL <0.87 k/uL [facility] Monocytes/100 WBC (Bld) 9.0 % [facility] Neutrophils (Bld) [#/Vol] 2.94 10*3/uL 1.45 - 7.50 k/uL [facility] Neutrophils/100 WBC (Bld) 67.6 % [facility] Nucleated RBC (Bld) [#/Vol] 10*3/uL <0.01 k/uL [facility] Nucleated RBC/100 WBC (Bld) [Ratio] 0.0 /100 WBC [facility] Platelet mean volume (Bld) [Entitic vol] 10.0 fL 9.0 - 12.7 fL [facility] Platelets (Bld) [#/Vol] 171 10*3/uL 150 - 400 k/uL [facility] RBC (Bld) [#/Vol] 5.22 10*6/uL 4.20 - 6.00 m/uL [facility] WBC (Bld) [#/Vol] 4.35 10*3/uL 3.70 - 11.00 k/u L [facility] Vital Signs Date Time Vital Sign Value Performing Clinician Facility 10-16-2024 12:08-0500 Blood Pressure Location Leila LAMBERT [facility] 10-16-2024 12:08-0500 Body temperature 98.6 [degF] Leila LAMBERT [facility] 10-16-2024 12:08-0500 Diastolic blood pressure 88 mm[Hg] Leila LAMBERT [facility] 10-16-2024 12:08-0500 Heart rate 89 /min Leila LAMBERT [facility] 10-16-2024 12:08-0500 Respiratory rate 16 /min Liela LAMBERT [facility] 10-16-2024 12:08-0500 Systolic blood pressure 137 mm[Hg] Leila LAMBERT [facility] 10-10-2024 08:59-0500 Body height 160 cm Melo Reilly DPM Work Phone: [facility] 10-10-2024 08:59-0500 Body mass index (BMI) [Ratio] 43.4 kg/m2 Melo Reilly DPM Work Phone: [facility] 10-10-2024 08:59-0500 Body weight 111.13 kg Melo Reilly DPM Work Phone: [facility] 09-26-2024 15:19-0400 Body height 160 cm Kerri Benitez DPM Work Phone: [facility] 09-26-2024 15:19-0400 Body mass index (BMI) [Ratio] 43.4 kg/m2 Kerri Benitez DPM Work Phone: [facility] 09-26-2024 15:19-0400 Body weight 111.13 kg Kerri Benitez DPM Work Phone: [facility] 09-05-2024 12:35-0400 Body height 160 cm [facility] 1 [facility] 09-05-2024 12:35-0400 Body mass index (BMI) [Ratio] 43.4 kg/m2 Pm 1 [facility] 09-05-2024 12:35-0400 Body weight 111.[address] 06-22-2024 13:48-0400 Body height 160.02 cm [facility] 06-22-2024 13:48-0400 Body mass index (BMI) [Ratio] 43.3 kg/m2 [facility] 06-22-2024 13:48-0400 Body weight 111 kg [facility] 03-01-2024 13:03-0400 Body height 160.02 cm [facility] 03-01-2024 13:03-0400 Body mass index (BMI) [Ratio] 43.5 kg/m2 [facility] 03-01-2024 13:03-0400 Body weight 111.58 kg [facility] 03-01-2024 13:03-0400 Diastolic blood pressure 64 mm[Hg] [facility] 03-01-2024 13:03-0400 Heart rate 55 /min [facility] 03-01-2024 13:03-0400 Systolic blood pressure 107 mm[Hg] [facility] 01-05-2024 11:13-0500 Diastolic blood pressure 66 mm[Hg] [employer] [facility] Work Phone: [facility] 01-05-2024 11:13-0500 Heart rate 61 /min [facility] Work Phone: [facility] 01-05-2024 11:13-0500 Respiratory rate 18 /min [facility] Work Phone: [facility] 01-05-2024 11:13-0500 SaO2% (BldA) [Mass fraction] 94 % [facility] Work Phone: [facility] 01-05-2024 11:13-0500 Systolic blood pressure 148 mm[Hg] [facility] Work Phone: [facility] 01-05-2024 10:03-0500 Body height 160.02 cm [facility] Work Phone: [facility] 01-05-2024 10:03-0500 Body temperature 97.7 [degF] [facility] Work Phone: [facility] 01-05-2024 10:03-0500 Body weight 108.86 kg [facility] Work Phone: [facility] 01-04-2024 14:16-0500 Body temperature 97.11 [degF] ETCOR Lux MD Work Phone: [facility] 01-04-2024 14:16-0500 Body weight 111.3 kg ECTOR Lux MD Work Phone: [facility] 01-04-2024 14:16-0500 Diastolic blood pressure 59 mm[Hg] ECTOR Lux MD Work Phone: [facility] 01-04-2024 14:16-0500 Heart rate 87 /min ECTOR Lux MD Work Phone: [facility] 01-04-2024 14:16-0500 Respiratory rate 18 /min ECTOR Lux MD Work Phone: [facility] 01-04-2024 14:16-0500 SaO2% (BldA) [Mass fraction] 98 % NA Angélica OVIEDO Work Phone: [facility] 01-04-2024 14:16-0500 Systolic blood pressure 102 mm[Hg] NA Angélica OVIEDO Work Phone: [facility] 09-13-2023 14:58-0400 Blood Pressure Location Leila LAMBERT [facility] 09-13-2023 14:58-0400 Diastolic blood pressure 74 mm[Hg] Leila LAMBERT [facility] 09-13-2023 14:58-0400 Heart rate 68 /min Leila LAMBERT [facility] 09-13-2023 14:58-0400 Respiratory rate 16 /min Leila LAMBERT [facility] 09-13-2023 14:58-0400 Systolic blood pressure 130 mm[Hg] Leila LAMBERT [facility] 07-12-2023 10:28-0400 Blood Pressure Location Leila LAMBERT [facility] 07-12-2023 10:28-0400 Diastolic blood pressure 90 mm[Hg] Leila LAMBERT [facility] 07-12-2023 10:28-0400 Heart rate 57 /min Leila LAMBERT [facility] 07-12-2023 10:28-0400 Systolic blood pressure 125 mm[Hg] Leila LAMBERT [facility] 07-06-2023 13:48-0400 Body temperature 96.3 [degF] ECTOR Lux MD Work Phone: [facility] 07-06-2023 13:48-0400 Body weight 110.95 kg ECTOR Lux MD Work Phone: [facility] 07-06-2023 13:48-0400 Diastolic blood pressure 75 mm[Hg] ECTOR Lux MD Work Phone: [facility] 07-06-2023 13:48-0400 Heart rate 64 /min ECTOR Lux MD Work Phone: [facility] 07-06-2023 13:48-0400 Respiratory rate 18 /min ECTOR Lux MD Work Phone: [facility] 07-06-2023 13:48-0400 SaO2% (BldA) [Mass fraction] 97 % ECTOR Lux MD Work Phone: [facility] 07-06-2023 13:48-0400 Systolic blood pressure 117 mm[Hg] ECTOR Lux MD Work Phone: [facility] 05-17-2023 12:21-0400 Blood Pressure Location Leila LAMBERT [facility] 05-17-2023 12:21-0400 Diastolic blood pressure 72 mm[Hg] Leila LAMBERT [facility] 05-17-2023 12:21-0400 Heart rate 68 /min Leila LAMBERT [facility] 05-17-2023 12:21-0400 Respiratory rate 16 /min Leila LAMBERT [facility] 05-17-2023 12:21-0400 Systolic blood pressure 130 mm[Hg] Leila LAMBERT [facility] 05-05-2023 13:45-0400 Body height Imad Asaad Other [employer] Other 05-05-2023 13:45-0400 Body mass index (BMI) [Ratio] 42.51 kg/m2 Imad Asaad Other [employer] Other 05-05-2023 13:45-0400 Body weight 108.86 kg Imad Asaad Other [employer] Other 05-05-2023 13:45-0400 Diastolic blood pressure 69 mm[Hg] Imad Asaad Other [employer] Other 05-05-2023 13:45-0400 Systolic blood pressure 125 mm[Hg] Imad Asaad Other [employer] Other 03-08-2023 15:05-0400 Blood Pressure Location Leila LAMBERT [facility] 03-08-2023 15:05-0400 Diastolic blood pressure 75 mm[Hg] Leila LAMBERT [facility] 03-08-2023 15:05-0400 Heart rate 72 /min Leila LAMBERT [facility] 03-08-2023 15:05-0400 Respiratory rate 16 /min Leila LAMBERT [facility] 03-08-2023 15:05-0400 Systolic blood pressure 118 mm[Hg] Leila LAMBERT [facility] 09-04-2022 11:43-0400 Blood Pressure Location Leila LAMBERT [facility] 09-04-2022 11:43-0400 Diastolic blood pressure 93 mm[Hg] Leila LAMBERT [facility] 09-04-2022 11:43-0400 Heart rate 63 /min Leila LAMBERT [facility] 09-04-2022 11:43-0400 Systolic blood pressure 157 mm[Hg] Leila LAMBERT [facility] 07-07-2022 14:32-0400 Body temperature 96.91 [degF] ECTOR Lux MD Work Phone: [facility] 07-07-2022 14:32-0400 Body weight 104.78 kg ECTOR Lux MD Work Phone: [facility] 07-07-2022 14:32-0400 Diastolic blood pressure 76 mm[Hg] ECTOR Lux MD Work Phone: [facility] 07-07-2022 14:32-0400 Heart rate 79 /min ECTOR Lux MD Work Phone: [facility] 07-07-2022 14:32-0400 Respiratory rate 16 /min ECTOR Lux MD Work Phone: [facility] 07-07-2022 14:32-0400 SaO2% (BldA) [Mass fraction] 97 % ECTOR Lux MD Work Phone: [facility] 07-07-2022 14:32-0400 Systolic blood pressure 117 mm[Hg] ECTOR Lux MD Work Phone: [facility] 06-18-2022 08:30-0400 Body temperature 96.91 [degF] ECTOR Lux MD Work Phone: [facility] 06-18-2022 08:30-0400 Body weight 105.51 kg ECTOR Lux MD Work Phone: [facility] 06-18-2022 08:30-0400 Diastolic blood pressure 70 mm[Hg] ECTOR Lux MD Work Phone: [facility] 06-18-2022 08:30-0400 Heart rate 51 /min ECTOR Lux MD Work Phone: [facility] 06-18-2022 08:30-0400 Respiratory rate 16 /min ECTOR Lux MD Work Phone: [facility] 06-18-2022 08:30-0400 SaO2% (BldA) [Mass fraction] 98 % ECTOR Lux MD Work Phone: [facility] 06-18-2022 08:30-0400 Systolic blood pressure 103 mm[Hg] ECTOR Lux MD Work Phone: [facility] 06-04-2022 13:37-0400 Body temperature 97.39 [degF] ECTOR Lux MD Work Phone: [facility] 06-04-2022 13:37-0400 Body weight 105.33 kg ECTOR Lux MD Work Phone: [facility] 06-04-2022 13:37-0400 Diastolic blood pressure 76 mm[Hg] ECTOR Lux MD Work Phone: [facility] 06-04-2022 13:37-0400 Heart rate 59 /min ECTOR Lux MD Work Phone: [facility] 06-04-2022 13:37-0400 Respiratory rate 18 /min ECTOR Lux MD Work Phone: [facility] 06-04-2022 13:37-0400 SaO2% (BldA) [Mass fraction] 97 % ECTOR Lux MD Work Phone: [facility] 06-04-2022 13:37-0400 Systolic blood pressure 128 mm[Hg] ECTOR Lux MD Work Phone: [facility] 04-20-2022 13:36-0400 Body temperature 97.59 [degF] ECTOR Lux MD Work Phone: [facility] 04-20-2022 13:36-0400 Body weight 111.58 kg ECTOR Lux MD Work Phone: [facility] 04-20-2022 13:36-0400 Diastolic blood pressure 63 mm[Hg] ECTOR Lux MD Work Phone: [facility] 04-20-2022 13:36-0400 Heart rate 56 /min ECTOR Lux MD Work Phone: [facility] 04-20-2022 13:36-0400 Respiratory rate 18 /min ECTOR Lux MD Work Phone: [facility] 04-20-2022 13:36-0400 SaO2% (BldA) [Mass fraction] 99 % ECTOR Lux MD Work Phone: [facility] 04-20-2022 13:36-0400 Systolic blood pressure 110 mm[Hg] ECTOR Lux MD Work Phone: [facility] 04-13-2022 13:48-0400 Body temperature 96.69 [degF] Yevgeniy Son MD Work Phone: [facility] 04-13-2022 13:48-0400 Body weight 106.59 kg Yevgeniy Son MD Work Phone: [facility] 04-13-2022 13:48-0400 Diastolic blood pressure 85 mm[Hg] Yevgeniy Son MD Work Phone: [facility] 04-13-2022 13:48-0400 Heart rate 62 /min Yevgeniy Son MD Work Phone: [facility] 04-13-2022 13:48-0400 Respiratory rate 20 /min Yevgeniy Son MD Work Phone: [facility] 04-13-2022 13:48-0400 SaO2% (BldA) [Mass fraction] 97 % Yevgeniy Son MD Work Phone: [facility] 04-13-2022 13:48-0400 Systolic blood pressure 145 mm[Hg] Yevgeniy Son MD Work Phone: [facility] 04-06-2022 13:32-0400 Body temperature 96.69 [degF] ECTOR Lux MD Work Phone: [facility] 04-06-2022 13:32-0400 Body weight 107.96 kg ECTOR Lux MD Work Phone: [facility] 04-06-2022 13:32-0400 Diastolic blood pressure 72 mm[Hg] ECTOR Lux MD Work Phone: [facility] 04-06-2022 13:32-0400 Heart rate 63 /min ECTOR Lux MD Work Phone: [facility] 04-06-2022 13:32-0400 Respiratory rate 16 /min ECTOR Lux MD Work Phone: [facility] 04-06-2022 13:32-0400 SaO2% (BldA) [Mass fraction] 98 % ECTOR Lux MD Work Phone: [facility] 04-06-2022 13:32-0400 Systolic blood pressure 145 mm[Hg] ECTOR Lux MD Work Phone: [facility] 03-31-2022 13:36-0400 Body temperature 97.11 [degF] ECTOR Lux MD Work Phone: [facility] 03-31-2022 13:36-0400 Body weight 109.32 kg ECTOR Lux MD Work Phone: [facility] 03-31-2022 13:36-0400 Diastolic blood pressure 50 mm[Hg] ECTOR Lux MD Work Phone: [facility] 03-31-2022 13:36-0400 Heart rate 55 /min ECTOR Lux MD Work Phone: [facility] 03-31-2022 13:36-0400 Respiratory rate 16 /min ECTOR Lux MD Work Phone: [facility] 03-31-2022 13:36-0400 SaO2% (BldA) [Mass fraction] 98 % ECTOR Lux MD Work Phone: [facility] 03-31-2022 13:36-0400 Systolic blood pressure 128 mm[Hg] ECTOR Lux MD Work Phone: [facility] 03-23-2022 15:33-0400 Body temperature 97.2 [degF] ECTOR Lux MD Work Phone: [facility] 03-23-2022 15:33-0400 Body weight 106.59 kg ECTOR Lux MD Work Phone: [facility] 03-23-2022 15:33-0400 Diastolic blood pressure 50 mm[Hg] ECTOR Lux MD Work Phone: [facility] 03-23-2022 15:33-0400 Heart rate 69 /min ECTOR Lux MD Work Phone: [facility] 03-23-2022 15:33-0400 Respiratory rate 18 /min ECTOR Lux MD Work Phone: [facility] 03-23-2022 15:33-0400 SaO2% (BldA) [Mass fraction] 97 % ECTOR Lux MD Work Phone: [facility] 03-23-2022 15:33-0400 Systolic blood pressure 104 mm[Hg] ECTOR Lux MD Work Phone: [facility] 03-11-2022 12:55-0400 Body height 164.5 cm ECTOR Lux MD Work Phone: [facility] 03-11-2022 12:55-0400 Body temperature 96.69 [degF] ECTOR Lux MD Work Phone: [facility] 03-11-2022 12:55-0400 Body weight 108.86 kg ECTOR Lux MD Work Phone: [facility] 03-11-2022 12:55-0400 Diastolic blood pressure 78 mm[Hg] ECTOR Lux MD Work Phone: [facility] 03-11-2022 12:55-0400 Heart rate 61 /min ECTOR Lux MD Work Phone: [facility] 03-11-2022 12:55-0400 Respiratory rate 16 /min ECTOR Lux MD Work Phone: [facility] 03-11-2022 12:55-0400 SaO2% (BldA) [Mass fraction] 95 % ECTOR Lux MD Work Phone: [facility] 03-11-2022 12:55-0400 Systolic blood pressure 128 mm[Hg] ECTOR Lux MD Work Phone: [facility] Encounters Encounter Date Encounter Type Care Provider Facility Start: 01-15-2025 ambulatory Leila Atkinsoni ty:[facility] Start: 01-08-2025 ambulatory [facility] Start: 10-16-2024 End: 10-16-2024 ambulatory Leila LAMBERT Facility:[facility] Start: 10-16-2024 End: 10-16-2024 Patient encounter procedure [facility] Start: 10-10-2024 End: 10-10-2024 Bamboo flowsheet Melo Reilly DPM Work Phone: [facility] Start: 10-10-2024 End: 10-10-2024 Bamboo flowsheet Melo Reilly DPM Work Phone: [facility] Start: 10-10-2024 End: 10-10-2024 Office outpatient visit 15 minutes Melo Reilly DPM Work Phone: [facility] Comment on above: Arthritis of left an kle (Primary Dx); Other synovitis and tenosynovitis, left ankle and foot; Chronic pain of left ankle Start: 10-10-2024 End: 10-10-2024 ambulatory MELO REILLY Not Available Start: 10-03-2024 End: 10-03-2024 ambulatory Leilacristian LAMBERT Facility:[facility] Start: 10-03-2024 End: 10-03-2024 Lab Drop off Leila LAMBERT [facility] Start: 10-03-2024 End: 10-03-2024 ambulatory Leilacristian LAMBERT Facility:[facility] Start: 10-03-2024 End: 10-03-2024 Patient encounter procedure Leila LAMBERT [facility] Start: 09-26-2024 End: 09-26-2024 Office outpatient visit 15 minutes Kerri Benitez DPM Work Phone: [facility] Comment on above: Arthritis of left an kle (Primary Dx); Other enthesopathy of left foot and ankle; Chronic pain of left ankle; Other synovitis and tenosynovitis, left ankle and foot Start: 09-26-2024 End: 09-26-2024 ambulatory KERRI BENITEZ Not Available Start: 09-26-2024 End: 09-26-2024 Bamboo flowsheet Kerri Benitez DPM Work Phone: [facility] Start: 09-26-2024 End: 09-26-2024 Bamboo flowsheet Kerri Benitez DPM Work Phone: [facility] Start: 09-15-2024 End: 09-15-2024 Telephone encounter Carlota Jason CMA [facility] General Surgery Start: 09-11-2024 End: 09-11-2024 Evaluation and management of inpatient TRACY CHAU [facility] Start: 09-05-2024 End: 09-05-2024 ambulatory [facility] Phone Call Provider 1 [facility] - Pre Admit Start: 09-05-2024 End: 09-05-2024 ambulatory [facility] Start: 08-28-2024 End: 08-28-2024 ambulatory NOELLE KEN [facility] Start: 08-24-2024 End: 08-30-2024 Telephone encounter Kerri Benitez DPM Work Phone: [facility] Comment on above: Advice Only Start: 08-23-2024 End: 08-23-2024 ambulatory [facility] [address] Abram WORKMAN [facility] Start: 07-18-2024 End: 07-18-2024 Bamboo flowsheet Kerri Benitez DPM Work Phone: [facility] Start: 07-18-2024 End: 07-18-2024 Bamboo flowsheet Kerri Benitez DPM Work Phone: [facility] Start: 07-18-2024 End: 07-18-2024 Office outpatient visit 25 minutes Kerri Benitez DPM Work Phone: [facility] Comment on above: Arthritis of left an kle (Primary Dx); Other enthesopathy of left foot and ankle; Chronic pain of left ankle; Other synovitis and tenosynovitis, left ankle and foot; Difficulty walking Start: 07-18-2024 End: 07-18-2024 ambulatory KERRI BENITEZ Not Available Start: 06-23-2024 End: 06-23-2024 ambulatory KERRI BENITEZ Not Available Start: 06-22-2024 End: 06-22-2024 ambulatory [facility] Work Phone: Start: 06-22-2024 End: 06-22-2024 Patient encounter procedure [facility] Work Phone: Start: 06-15-2024 End: 06-15-2024 ambulatory KERRI BENITEZ Not Available Start: 05-16-2024 End: 05-16-2024 ambulatory KERRI BENITEZ Not Available Start: 03-17-2024 End: 03-17-2024 ambulatory Leila LAMBERT Facility:[facility] Start: 03-17-2024 End: 03-17-2024 Lab Drop off Leila R PETRA [facility] Start: 03-17-2024 End: 03-17-2024 ambulatory Leila LAMBERT Facility: [facility] Start: 03-17-2024 End: 03-17-2024 Patient encounter procedure Leila LAMBERT [facility] Start: 03-01-2024 End: 03-01-2024 ambulatory [facility] Work Phone: Start: 03-01-2024 End: 03-01-2024 Patient encounter procedure [facility] Work Phone: Start: 01-05-2024 End: 01-05-2024 ambulatory Fred Kirk Facility:[facility] Start: 01-05-2024 Non-patient / Non-visit [facility] Work Phone: [facility] Work Phone: Start: 01-04-2024 End: 01-04-2024 ambulatory ADRIAN FLORES Facility:[facility] Start: 01-04-2024 End: 01-04-2024 Patient encounter procedure Jhony Lux MD Work Phone: [facility] Comment on above: History of prostate cancer (Primary Dx); Prostate cancer (HCC) Start: 11-30-2023 End: 11-30-2023 ambulatory Fred Kirk Facility:[facility] Start: 11-30-2023 End: 11-30-2023 ambulatory [facility] Work Phone: [facility] Work Phone: Start: 11-30-2023 End: 11-30-2023 Patient encounter procedure [facility] Work Phone: [facility] Work Phone: Start: 11-30-2023 End: 11-30-2023 Patient encounter procedure José Miguel [facility] Work Phone: [facility] Work Phone: Start: 09-13-2023 End: 09-13-2023 Patient encounter procedure Leila LAMBERT [facility] Start: 07-12-2023 End: 07-12-2023 Patient encounter procedure Leila LAMBERT [facility] [facility] Start: 07-06-2023 End: 07-06-2023 ambulatory [facility] Facility:[facility] Start: 07-06-2023 End: 07-06-2023 Patient encounter procedure Jhony Lux MD Work Phone: Radiation Oncology Comment on above: Malignant neoplasm o f prostate (HCC) (Primary Dx); Gynecomastia, male Start: 05-17-2023 End: 05-17-2023 Patient encounter procedure Leila LAMBERT [facility] Start: 05-12-2023 End: 05-12-2023 Patient encounter procedure Leila LAMBERT [facility] Start: 05-05-2023 End: 05-05-2023 ambulatory Imad Asaad Other [facility] Other Start: 05-05-2023 Office outpatient ne w 45 minutes Imad Asaad [facility] Start: 03-08-2023 End: 03-08-2023 Patient encounter procedure Leila LAMBERT [facility] Start: 02-16-2023 End: 02-17-[address] LEILA LAMBERT . Facility: Start: 01-21-2023 End: 01-21-[address] Work Phone: MO[facility] Start: 01-21-2023 End: 01-21-2023 Nutrition therapy Albina Russell RD Work Phone: Nutrition Therapy Comment on above: Nutrition Telephone Start: 01-21-2023 End: 01-22-2023 ambulatory [facility] Facility:[facility] Start: 01-20-2023 ambulatory Facility:1 [id number] Start: 01-20-2023 End: 01-20-2023 Patient encounter procedure Edgar Ross Jessica [facility] Start: 09-04-2022 End: 09-04-2022 Patient encounter procedure Leila LAMBERT [facility] Start: 07-15-2022 End: 07-15-2022 Patient encounter procedure Pascale Wahl [facility] Start: 07-07-2022 End: 07-07-2022 Patient encounter procedure Jhony Lux MD Work Phone: Radiation Oncology Comment on above: Malignant neoplasm o f prostate (HCC) (Primary Dx) Start: 06-18-2022 End: 06-18-2022 Patient encounter procedure Jhony Lux MD Work Phone: Radiation Oncology Comment on above: Malignant neoplasm o f prostate (HCC) (Primary Dx) Start: 06-18-2022 Radiation Oncology Note Jhony Lux MD Work Phone: Radiation Oncology Comment on above: Simulation Note Start: 06-18-2022 End: 06-18-2022 Subsequent hospital visit by physician Pet Ct Scan Molly Barnes Work Phone: Radiology Pet CT Start: 06-04-2022 End: 06-04-2022 Patient encounter procedure Jhony Lux MD Work Phone: Radiation Oncology Comment on above: Malignant neoplasm o f prostate (HCC) (Primary Dx) Start: 05-27-2022 End: 05-27-2022 Patient encounter procedure Maricruz LeaElana Johnson [facility] Start: 05-21-2022 End: 05-21-[address] LEILA LAMBERT . Facility:[facility] Start: 05-21-2022 End: 05-21-2022 Patient encounter procedure Jhony Lux MD Work Phone: Radiation Oncology Comment on above: Malignant neoplasm o f prostate (HCC) (Primary Dx) Start: 05-15-2022 Encounter for preprocedural cardiovascular examination DR LEILA LAMBERT . [facility] Start: 05-15-2022 Encounter for preprocedural laboratory examination DR LEILA LAMBERT . [facility] Start: 05-14-2022 End: 05-15-[address] LEILA LAMBERT . Facility: Start: 05-14-2022 End: 05-15-2022 Encounter for preprocedural cardiovascular examination DR LEILA LAMBERT . Facility: Start: 05-12-2022 Patient encounter procedure Jhony Lux MD Work Phone: MOLLY Start: 05-12-2022 Radiation Oncology Note Jhony Lux MD Work Phone: Radiation Oncology Comment on above: Treatment Planning Start: 05-05-2022 End: 05-05-2022 Patient encounter procedure Jhony Lux MD Work Phone: Radiation Oncology Comment on above: Malignant neoplasm o f prostate (HCC) (Primary Dx) Start: 05-05-2022 Radiation Oncology Note G Anthony Lux MD Work Phone: Radiation Oncology Comment on above: Simulation Note Start: 04-24-2022 Patient encounter procedure Jhony Lux MD Work Phone: [facility] Start: 04-24-2022 Radiation Oncology Note Jhony Lux MD Work Phone: Radiation Oncology Comment on above: Completion Note Start: 04-21-2022 End: 04-21-2022 Patient encounter procedure Lab/Port [facility] Molly Work Phone: Radiation Oncology Comment on above: Dysuria (Primary Dx) Start: 04-20-2022 End: 04-20-2022 Patient encounter procedure Jhony Lux MD Work Phone: Radiation Oncology Comment on above: Malignant neoplasm o f prostate (HCC) (Primary Dx); Dysuria Start: 04-13-2022 Telephone encounter Jhony Lux MD Work Phone: Radiation Oncology Comment on above: Diarrhea Start: 04-13-2022 End: 04-13-2022 Patient encounter procedure Yevgeniy Son MD Work Phone: Radiation Oncology Comment on above: Malignant neoplasm o f prostate (HCC) (Primary Dx) Start: 04-06-2022 End: 04-06-2022 Patient encounter procedure Jhony Lux MD Work Phone: Radiation Oncology Comment on above: Malignant neoplasm o f prostate (HCC) (Primary Dx) Start: 04-02-2022 End: 04-02-2022 Patient encounter procedure Lab/[facility] Molly Work Phone: Radiation Oncology Comment on above: Prostate cancer (HCC ) Malignant neoplasm o f prostate (HCC) (Primary Dx) Start: 03-31-2022 End: 03-31-2022 Patient encounter procedure Jhony Lux MD Work Phone: Radiation Oncology Comment on above: Malignant neoplasm o f prostate (HCC) (Primary Dx) Start: 03-25-2022 Patient encounter procedure [facility] Provider [facility] Start: 03-23-2022 End: 03-23-2022 Patient encounter procedure Jhony Lux MD Work Phone: Radiation Oncology Comment on above: Malignant neoplasm o f prostate (HCC) (Primary Dx) Start: 03-20-2022 Patient encounter procedure [facility] Provider [facility] Department Start: 03-20-2022 Telephone encounter Jhony Lux MD Work Phone: Radiation Oncology Comment on above: Orders Start: 03-16-2022 End: 03-16-2022 Subsequent hospital visit by physician Jhony Lux MD Work Phone: Radiology Pet CT Start: 03-16-2022 Patient encounter procedure Jhony Lux MD Work Phone: MOLLY Start: 03-16-2022 Radiation Oncology Note Jhony Lux MD Work Phone: Radiation Oncology Comment on above: Simulation Note Treatment Planning Start: 03-11-2022 ambulatory Michelle Dalal RN Radiati on Oncology Comment on above: Patient Education Start: 03-11-2022 End: 03-11-2022 Patient encounter procedure Jhony Lux MD Work Phone: Radiation Oncology Comment on above: Prostate cancer (HCC ) (Primary Dx) Procedures Date Procedure Procedure Detail Performing Clinician Start: 09-11-2024 Colonoscopy 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 Lui Maloney Start: 06-23-2022 Lipid 1996 panel - S frantz or Plasma ECTOR Lux MD Work Phone: Start: 05-21-2022 Implantation of radioactive seed into prostate Pascale Wahl Start: 04-02-2022 Blood count complete auto&auto difrntl wbc Jhony Lux MD Work Phone: Start: 02-05-2022 MRI-US fusion guided transrectal biopsy of prostate Maricruz Lue Start: 01-08-2022 MRI of prostate Maricruz L ue Colonoscopy Maricruz Lue Plan of Treatment Date Care Activity Detail Author Start: 09-11-2034 Screening for malign ant neoplasm of colon [facility] Start: 09-11-2029 Screening for malign ant neoplasm of colon Colonoscopy [facility] Start: 09-06-2028 Prostate specific an tigen measurement Prostate Cancer Screening Discussion [facility] Start: 02-17-2028 PROSTATE CANCER SCRE ENING DISCUSSION PROSTATE CANCER SCREENING DISCUSSION [facility] Start: 07-03-2027 PROSTATE CANCER SCRE ENING DISCUSSION PROSTATE CANCER SCREENING DISCUSSION [facility] Start: 06-23-2027 Lipid panel Lipid Screening [facility] Start: 06-23-2027 LIPID SCREEN LIPID SCREEN [facility] Start: 09-11-2025 Adult BMI Screening Adult BMI Screen ing [facility] Start: 09-11-2025 Tobacco Screening Tobacco Screening [facility] Start: 08-28-2025 Adult BMI Screening Adult BMI Screen ing [facility] Start: 08-23-2025 Tobacco Screening Tobacco Screening [facility] Start: 06-23-2025 Diabetes Screening Diabetes Screenin g [facility] Start: 06-22-2025 DIABETES SCREEN DIABETES SCREEN [facility] Start: 01-02-2025 End: 01-02-2025 Patient encounter procedure 01/02/2025 1:45 PM EST Office Visit Radiation Oncology [address] [place] [address] Jhony Lux MD [address] [place] [address] 1 yr rv Radiation Oncology Comment on above: 1 yr rv Start: 10-10-2024 End: 10-10-2024 Patient encounter procedure 10/10/2024 9:00 AM EST Office Visit [facility] [address] [place] [address] Melo Reilly, DPM [address] [place] [address] [facility] Start: 09-26-2024 End: 09-26-2024 Patient encounter procedure [facility] Comment on above: Arrived Start: 09-11-2024 End: 09-11-2024 Admission to same day surgery center 09/11/2024 11:30 AM EDT - 09/11/2024 12:00 PM EDT Surgery [facility] [address] [place] [id number] Tracy Chau, DO [address] [place], [place] [id number] COLONOSCOPY DIAGNOSTIC / SCREENING [54261 (CPT )] [facility] Comment on above: COLONOSCOPY DIAGNOST IC / SCREENING [56486 (CPT )] Start: 09-11-2024 End: 09-11-2024 Colonoscopy flx dx w/collj spec when pfrmd COLONOSCOPY DIAGNOSTIC / SCREENING diarrhea 09/11/2024 11:30 AM EDT [facility] Start: 09-11-2024 Subsequent hospital visit by physician 09/11/2024 11:30 AM EDT Hospital Encounter [facility] [address] [place] [id number] Tracy Chau, DO [address] [place], [place] [id number] [facility] Start: 08-17-2024 End: 08-17-2024 Patient encounter procedure 08/17/2024 3:15 PM EDT Office Visit [facility] [address] [place] [id number] Kerri Benitez, DPM [address] [place], [place] [id number] [facility] Start: 07-30-2024 Covid-19 Vaccine ( season) Covid-19 Vaccine ( season) [facility] Start: 07-30-2024 Influenza vaccination [facility] Start: 07-18-2024 End: 07-18-2024 Patient encounter procedure 07/18/2024 1:15 PM EDT Office Visit [facility] [address] [place] [address] Kerri Benitez, DPLeonora [address] [place] [address] Arrived [facility] Comment on above: Arrived Start: 2024 Abdominal aortic ane urysm screening Abdominal Aortic Aneurysm (AAA) Screen [facility] Start: 2024 Advance Directive Discussion Advance Directive Discussion [facility] Start: 2024 Fall Risk Screening Fall Risk Screen ing [facility] Start: 2024 Pneumococcal Vaccine : 65+ Years (1 of 1 - PCV) Pneumococcal Vaccine: 65+ Years (1 of 1 - PCV) [facility] Start: 01-05-2024 [facility] Start: 11-29-2023 Depression Assessment Depression Ass essment [facility] Start: 07-30-2023 Covid-19 Vaccine ( season) Covid-19 Vaccine ( season) [facility] Start: 07-30-2023 Influenza vaccination C [facility] Start: 11-29-2022 DEPRESSION ASSESSMENT DEPRESSION ASS ESSMENT [facility] Start: 07-30-2022 Influenza vaccination C [facility] Start: 07-05-2022 End: 09-04-2022 Prostate specific Ag [Mass/volume] in Serum or Plasma PSA/PROSTSPECAG DIAG Lab Routine Malignant neoplasm of prostate (HCC) Expected: 07/05/2022, Expires: 09/04/2022 [facility] Work Phone: Comment on above: Expected: 07/05/2022 , Expires: 09/04/2022 Start: 04-28-2022 End: 06-28-2022 UA DIP B/O UA DIP B/O Lab Routine Malignant neoplasm of prostate (HCC) Dysuria Expected: 04/28/2022, Expires: 06/28/2022 [facility] Work Phone: Comment on above: Expected: 04/28/2022 , Expires: 06/28/2022 Start: 04-20-2022 End: 06-20-2022 Urinalysis complete panel - Urine URINALYSIS, WITH MICROSCOPIC Lab Routine Malignant neoplasm of prostate (HCC) Expected: 04/20/2022, Expires: 06/20/2022 [facility] Work Phone: Comment on above: Expected: 04/20/2022 , Expires: 06/20/2022 Start: 04-02-2022 End: 06-02-2022 CBC W Auto Differential panel - Blood CBC + DIFF Lab Routine Prostate cancer (HCC) Expected: 04/02/2022, Expires: 06/02/2022 [facility] Work Phone: Comment on above: Expected: 04/02/2022 , Expires: 06/02/2022 Start: 08-21-2021 COVID-19 VACCINE (3 - Booster for Moderna series) COVID-19 VACCINE (3 - Booster for Moderna series) [facility] Start: 05-16-2021 COVID-19 VACCINE (3 - Booster for Moderna series) COVID-19 VACCINE (3 - Booster for Moderna series) [facility] Start: 05-16-2021 COVID-19 VACCINE (3 - Moderna series) COVID-19 VACCINE (3 - Moderna series) [facility] Start: 04-18-2021 COVID-19 Vaccine (3 - Moderna risk series) COVID-19 Vaccine (3 - Moderna risk series) [facility] Start: 2019 RSV Vaccine (1 - 1-d ose 60+ series) RSV Vaccine (1 - 1-dose 60+ series) [facility] Start: 2019 RSV Vaccine (1 - Ris k 60-74 years 1-dose series) RSV Vaccine (1 - Risk 60-74 years 1-dose series) [facility] Start: 2014 PROSTATE CANCER SCRE ENING DISCUSSION PROSTATE CANCER SCREENING DISCUSSION [facility] Start: 2009 Screening for malign ant neoplasm of lung Lung Cancer Screening [facility] Start: 2009 SHINGRIX VACCINE (1 of 2) VAZQUEZ GRIX VACCINE (1 of 2) [facility] Start: 2004 COLOGUARD (FIT-DNA) COLOGUARD (FIT-D NA) [facility] Start: 2004 Colonoscopy COLONOSCOPY [facility] Start: 2004 COLORECTAL CANCER SCREENING COLORECTAL CANCER SCREENING [facility] Start: [address] COLONOGRAPHY [facility] Start: 2004 DIABETES SCREEN DIABETES SCREEN [facility] Start: 2004 FECAL OCCULT BLOOD FECAL OCCULT BLOO D [facility] Start: 2004 Screening for malign ant neoplasm of colon [facility] Start: 2004 SIGMOIDOSCOPY SIGMOIDOSCOPY [facility] Start: 1994 LIPID SCREEN LIPID SCREEN [facility] Start: 1978 Administration of varicella zoster vaccine Zoster (Shingles) Vaccine (1 of 2) [facility] Start: 1978 DTaP,Tdap and Td Vac cines (1 - Tdap) DTaP,Tdap and Td Vaccines (1 - Tdap) [facility] Start: 1978 SHINGRIX VACCINE (1 of 2) VAZQUEZ GRIX VACCINE (1 of 2) [facility] Start: 1978 Urine microalbumin profile [facility] Start: 1977 Adult BMI Follow Up Plan Adult BMI Follow Up Plan [facility] Start: 1977 Anxiety Screening Anxiety Screening [facility] Start: 1977 Depression Screening Depression Scre [facility] Start: 1977 HEPATITIS C SCREENING HEPATITIS C [facility] Start: 1977 Hepatitis C screening Hepatitis C [facility] Start: 1977 HIV SCREENING HIV SCREENING [facility] Start: 1977 HIV screening HIV Screening [facility] Start: 1971 Adult depression scr eening assessment DEPRESSION SCREENING [facility] Start: 1965 PNEUMOCOCCAL (1 - PCV) PNEUMOCOCCAL (1 - PCV) [facility] Start: 1965 Pneumococcal vaccination Pneum ococcal Vaccine (1 of 2 - PCV) [facility] Start: 1965 Pneumococcal Vaccine : 65+ (1 of 2 - PCV) Pneumococcal Vaccine: 65+ (1 of 2 - PCV) [facility] Start: 1959 Abdominal aortic ane urysm screening Abdominal Aortic Aneurysm Screening [facility] Start: 1959 Medicare Annual Well ness Visit Medicare Annual Wellness Visit [facility] Start: 1959 Screening for malign ant neoplasm of colon [facility] antibody IgA level [facility] Gliadin peptide IgA Ab [Units/volume] in Serum [facility] Gliadin peptide IgG Ab [Units/volume] in Serum [facility] IgA [Mass/volume] in Serum or Plasma [facility] Tissue transglutamin ase IgA Ab [Units/volume] in Serum [facility] Tissue transglutamin ase IgG Ab [Units/volume] in Serum [facility] Immunizations Immunization Date Immunization Notes Care Provider Fa negra 09-29-2021 SARS-CoV-2 (COVID-19 ) Ad26 vaccine, recombinant Maricruz Caitline [facility] 03-21-2021 SARS-CoV-2 (COVID-19 ) mRNA-1273 vaccine Leila LAMBERT [facility] Comment on above: Result Comment: 2022: 59 02-27-2021 SARS-CoV-2 (COVID-19 ) Ad26 vaccine, recombinant Maricruz Lue [facility] 02-21-2021 SARS-CoV-2 (COVID-19 ) mRNA-1273 vaccine Leila LAMBERT [facility] Comment on above: Result Comment: 2022: 59 01-27-2021 SARS-CoV-2 (COVID-19 ) Ad26 vaccine, recombinant Maricruz Lue [facility] 10-02-2019 influenza virus vaccine, unspecified formulation Leila LAMBERT [facility] 09-26-2018 influenza virus vaccine, unspecified formulation Leila LAMBERT [facility] 09-17-2017 influenza virus vaccine, unspecified formulation Leila LAMBERT [facility] Payers Date Payer Category Payer Self-pay [id number] 2022 Medicaid [id number] 2021 Medicare AETNA MEDICARE A ETNA MEDICARE ASSURE HMO D SNP [id number] 2021-Present [phone] [address] [place] [address] Medicare [id number] 2021 Medicare [id number]. [id number] 2021 Medicare HMO [employer]ET[employer] MEDICARE [id number] 2016 Medicaid [id number]. [id number] 1959 Medicaid [id number] 1959 Private Health Insurance [id number] 1959 Unknown [id number] 2.16.840.1.350207.3.579.2. 356 1959 Unknown [id number] 2.16.840.1.051229.3.579.2. 593 1959 Unknown [id number] 2.16.840.1.935180.3.579.2. 593 1959 Unknown [id number] 2.16.840.1.471231.3.579.2. 593 1959 Unknown [id number] 2.16.840.1.084542.3.579.2. 1286 1959 Unknown [id number] 2.16.840.1.755156.3.579.2. 1286 1959 Unknown [id number] 2.16.840.1.426096.3.579.2. 1286 1959 Unknown [id number] 2.16.840.1.069071.3.579.2. 1286 1959 Unknown [id number] 2.16.840.1.389529.3.579.2. 1259 1959 Unknown [id number] 2.16.840.1.064236.3.579.2. 1259 1959 Unknown [id number] 2.16.840.1.407172.3.579.2. 1259 1959 Unknown [id number] 2.16.840.1.062579.3.579.2. 1259 1959 Unknown [id number] 2.16.840.1.910355.3.579.2. 1259 1959 Unknown [id number] 2.16.840.1.100123.3.579.2. 1259 1959 Unknown [id number] 2.16.840.1.921159.3.579.2. 1259 1959 Unknown [id number] 2.16.840.1.967586.3.579.2. 727 1959 Unknown [id number] 2.16.840.1.345386.3.579.2. 727 1959 Unknown [id number] 2.16.840.1.749795.3.579.2. 727 1959 Unknown [id number] 2.16.840.1.251818.3.579.2. 727 1959 Unknown [id number] 2.16.840.1.988504.3.579.2. 727 1959 Unknown [id number] 2.16.840.1.740015.3.579.2. 727 1959 Unknown [id number] 2.16.840.1.584008.3.579.2. 727 Medicare [id number] 2.16.840.1.522573.19 Unknown [id number] 2.16.840.1.696392.3.579.2. 531 Unknown [id number] 2.16.840.1.941238.3.579.2. 531 Social History Date Type Detail Facility Start: 04-29-1977 End: 01-04-2024 Tobacco smoking status OHIS Smokes tobacco daily [facility] Start: 11-29-1974 History of tobacco use Cigarette Smo ker [facility] Start: 03-11-2022 End: 07-18-2024 Cigarettes smoked current (pack per day) - Reported 0.5 [facility] Start: 03-11-2022 End: 08-28-2024 Tobacco use and exposure Former smokeless tobacco user [facility] Start: 03-11-2022 End: 06-18-2022 Alcohol intake Current drinker of alcohol (finding) [facility] Start: 1960 Sex Assigned At Not on file [facility] Start: 03-01-2022 End: 07-07-2022 Exposure to SARS-CoV-2 (event) Not sure [facility] Start: 12-22-2021 Tobacco smoking status Heavy t obacco smoker (finding) [facility] Start: 06-18-2022 End: 07-18-2024 Sex Assigned At Male [facility] Start: 05-17-2023 End: 10-16-2024 Tobacco smoking status Ex-smoker (finding) [facility] Tobacco smoking status Never [facility] Start: 1960 Sex Assigned At Male F [facility] Start: 04-30-2023 [facility] Start: 04-30-2023 Tobacco use and exposure Smokeless tobacco non-user [facility] Start: 06-15-2024 End: 07-18-2024 Alcoholic beverage intake Lifetime non-drinker (finding) [facility] Start: 11-29-1974 History of tobacco use Current smoke r [facility] Start: 09-05-2024 End: 09-12-2024 Alcoholic beverage intake Ex-drinker (finding) [facility] Start: 07-04-2015 Sex Male (finding) [facility] Goals Date Patient Goal Desired Activity /State Personal health goal Comment on above: Formatting of this n ote might be different from the original. Evaluation of progress towards goal: safe transition from hospital to home with family support. Functional Status Date Assessment Result Facility 10-16-2024 Functional Status N/A [facility] 03-17-2024 Functional Status N/A [facility] 09-13-2023 Functional Status N/A [facility] 07-12-2023 Functional Status N/A [facility] 05-17-2023 Functional Status [facility] 03-08-2023 Functional Status N/A [facility] 09-04-2022 Functional Status N/A [facility] 07-15-2022 Functional Status N/A [facility] Molly Clinical Notes 03-11-2022 to 10-16-2024 Melo Reilly, KATHYM - 10/10/2024 9:00 AM Alfa Benitez, BENITO - 09/26/2024 3:15 PM EDTTelephone Encounter - Carlota Casie, ERIC - 09/15/2024 1:48 PM Mansi Santiago LPN - 01/04/2024 2:15 PM EST Note Date & Type Note Facility 10-16-2024 Hospital Discharge instructions Patient Education 10/16/2024 12:56:51 Prostate Cancer Prostate Cancer The prostate is a small gland that produces fluid that makes up semen (seminal fluid). It is located below the bladder in men, in front of the rectum. Prostate cancer is the abnormal growth of cells in the prostate gland. What are the causes? The exact cause of this condition is not known. What increases the risk? You are more likely to develop this condition if: You are 65 years of age or older. You have a family history of prostate cancer. You have a family history of breast and ovarian cancer. You have genes that are passed from parent to child (inherited), such as BRCA1 and BRCA2. You have Simpson syndrome. men and men of descent are diagnosed with prostate cancer at higher rates than other men. The reasons for this are not well understood and are likely due to a combination of genetic and environmental factors. What are the signs or symptoms? Symptoms of this condition include: Problems with urination. This may include: ?A weak or interrupted flow of urine. ?Trouble starting or stopping urination. ?Trouble emptying the bladder all the way. ?The need to urinate more often, especially at night. Blood in urine or semen. Persistent pain or discomfort in the lower back, lower abdomen, or hips. Trouble getting an erection. Weakness or numbness in the legs or feet. How is this diagnosed? This condition can be diagnosed with: A digital rectal exam. For this exam, a health care provider inserts a gloved finger into the rectum to feel the prostate gland. A blood test called a prostate-specific antigen (PSA) test. A procedure in which a sample of tissue is taken from the prostate and checked under a microscope (prostate biopsy). An imaging test called transrectal ultrasonography. Once the condition is diagnosed, tests will be done to determine how far the cancer has spread. This is called staging the cancer. Staging may involve imaging tests, such as a bone scan, CT scan, PET scan, or MRI. Stages of prostate cancer The stages of prostate cancer are as follows: Stage 1 (I). At this stage, the cancer is found in the prostate only. The cancer is not visible on imaging tests, and it is usually found by accident, such as during prostate surgery. Stage 2 (II). At this stage, the cancer is more advanced than it is in stage 1, but the cancer has not spread outside the prostate. Stage 3 (III). At this stage, the cancer has spread beyond the outer layer of the prostate to nearby tissues. The cancer may be found in the seminal vesicles, which are near the bladder and the prostate. Stage 4 (IV). At this stage, the cancer has spread to other parts of the body, such as the lymph nodes, bones, bladder, rectum, liver, or lungs. Prostate cancer grading Prostate cancer is also graded according to how the cancer cells look under a microscope. This is called the [place] score and the total score can range from 6 10, indicating how likely it is that the cancer will spread (metastasize) to other parts of the body. The higher the score, the greater the likelihood that the cancer will spread. [place] 6 or lower: This indicates that the cancer cells look similar to normal prostate cells (well differentiated). Judd 7: This indicates that the cancer cells look somewhat similar to normal prostate cells (moderately differentiated). Judd 8, 9, or 10: This indicates that the cancer cells look very different than normal prostate cells (poorly differentiated). How is this treated? Treatment for this condition depends on several factors, including the stage of the cancer, your age, personal preferences, and your overall health. Talk with your health care provider about treatment options that are recommended for you. Common treatments include: Observation for early stage prostate cancer (active surveillance). This involves having exams, blood tests, and in some cases, more biopsies. For some men, this is the only treatment needed. Surgery. Types of surgeries include: ?Open surgery (radical prostatectomy). In this surgery, a larger incision is made to remove the prostate. ?A laparoscopic radical prostatectomy. This is a surgery to remove the prostate and lymph nodes through several small incisions. It is often referred to as a minimally invasive surgery. ?A robotic radical prostatectomy. This is laparoscopic surgery to remove the prostate and lymph nodes with the help of robotic arms that are controlled by the surgeon. ?Cryoablation. This is surgery to freeze and destroy cancer cells. Radiation treatment. Types of radiation treatment include: ?External beam radiation. This type aims beams of radiation from outside the body at the prostate to destroy cancerous cells. ?Brachytherapy. This type uses radioactive needles, seeds, wires, or tubes that are implanted into the prostate gland. Like external beam radiation, brachytherapy destroys cancerous cells. An advantage is that this type of radiation limits the damage to surrounding tissue and has fewer side effects. Chemotherapy. This treatment kills cancer cells or stops them from multiplying. It kills both cancer cells and normal cells. Targeted therapy. This treatment uses medicines to kill cancer cells without damaging normal cells. Hormone treatment. This treatment involves taking medicines that act on testosterone, one of the male hormones, by: ?Stopping your body from producing testosterone. ?Blocking testosterone from reaching cancer cells. Follow these instructions at home: Lifestyle Do not use any products that contain nicotine or tobacco. These products include cigarettes, chewing tobacco, and vaping devices, such as e-cigarettes. If you need help quitting, ask your health care provider. Eat a healthy diet. To do this: ?Eat foods that are high in fiber. These include beans, whole grains, and fresh fruits and vegetables. ?Limit foods that are high in fat and sugar. These include fried or sweet foods. Treatment for prostate cancer may affect sexual function. If you have a partner, continue to have intimate moments. This may include touching, holding, hugging, and caressing your partner. Get plenty of sleep. Consider joining a support group for men who have prostate cancer. Meeting with a support group may help you learn to manage the stress of having cancer. General instructions Take [id number] and prescription medicines only as told by your health care provider. If you have to go to the hospital, notify your cancer specialist (oncologist). Keep all follow-up visits. This is important. Where to find more information [place] [employer]: www.cancer.org [place] [employer]: www.cancer.net National Cancer [place]: www.cancer.gov Contact a health care provider if: You have new or increasing trouble urinating. You have new or increasing blood in your urine. You have new or increasing pain in your hips, back, or chest. Get help right away if: You have weakness or numbness in your legs. You cannot control urination or your bowel movements (incontinence). You have chills or a fever. Summary The prostate is a small gland that is involved in the production of semen. It is located below a man's bladder, in front of the rectum. Prostate cancer is the abnormal growth of cells in the prostate gland. Treatment for this condition depends on the stage of the cancer, your age, personal preferences, and your overall health. Talk with your health care provider about treatment options that are recommended for you. Consider joining a support group for men who have prostate cancer. Meeting with a support group may help you learn to manage the stress of having cancer. This information is not intended to replace advice given to you by your health care provider. Make sure you discuss any questions you have with your health care provider. Document Revised: 02/11/2022 Document Reviewed: 02/11/2022 [employer] Patient Education 2023 [email or web address]. Follow Up Care 03/17/2024 12:32:12 With:PETRA OVIEDO, Leila Simpson, URL Address: [facility] [address] , [place] [address]- [phone] When: Unknown Comments:3 mos w/ PSA and Lupron [facility] Dariel 10-16-2024 Note Patient Education Oncology Prostate Cancer The prostate is a small gland that produces fluid that makes up semen (seminal fluid). It is located below the bladder in men, in front of the rectum. Prostate cancer is the abnormal growth of cells in the prostate gland. What are the causes? The exact cause of this condition is not known. What increases the risk? You are more likely to develop this condition if: ??? You are 65 years of age or older. ??? You have a family history of prostate cancer. ??? You have a family history of breast and ovarian cancer. ??? You have genes that are passed from parent to child (inherited), such as BRCA1 and BRCA2. ??? You have Simpson syndrome. men and men of descent are diagnosed with prostate cancer at higher rates than other men. The reasons for this are not well understood and are likely due to a combination of genetic and environmental factors. What are the signs or symptoms? Symptoms of this condition include: ??? Problems with urination. This may include: ? A weak or interrupted flow of urine. ? Trouble starting or stopping urination. ? Trouble emptying the bladder all the way. ? The need to urinate more often, especially at night. ??? Blood in urine or semen. ??? Persistent pain or discomfort in the lower back, lower abdomen, or hips. ??? Trouble getting an erection. ??? Weakness or numbness in the legs or feet. How is this diagnosed? This condition can be diagnosed with: ??? A digital rectal exam. For this exam, a health care provider inserts a gloved finger into the rectum to feel the prostate gland. ??? A blood test called a prostate-specific antigen (PSA) test. ??? A procedure in which a sample of tissue is taken from the prostate and checked under a microscope (prostate biopsy). ??? An imaging test called transrectal ultrasonography. Once the condition is diagnosed, tests will be done to determine how far the cancer has spread. This is called staging the cancer. Staging may involve imaging tests, such as a bone scan, CT scan, PET scan, or MRI. Stages of prostate cancer The stages of prostate cancer are as follows: ??? Stage 1 (I). At this stage, the cancer is found in the prostate only. The cancer is not visible on imaging tests, and it is usually found by accident, such as during prostate surgery. ??? Stage 2 (II). At this stage, the cancer is more advanced than it is in stage 1, but the cancer has not spread outside the prostate. ??? Stage 3 (III). At this stage, the cancer has spread beyond the outer layer of the prostate to nearby tissues. The cancer may be found in the seminal vesicles, which are near the bladder and the prostate. ??? Stage 4 (IV). At this stage, the cancer has spread to other parts of the body, such as the lymph nodes, bones, bladder, rectum, liver, or lungs. Prostate cancer grading Prostate cancer is also graded according to how the cancer cells look under a microscope. This is called the [place] score and the total score can range from 6?10, indicating how likely it is that the cancer will spread (metastasize) to other parts of the body. The higher the score, the greater the likelihood that the cancer will spread. ??? [place] 6 or lower: This indicates that the cancer cells look similar to normal prostate cells (well differentiated). ??? Judd 7: This indicates that the cancer cells look somewhat similar to normal prostate cells (moderately differentiated). ??? Judd 8, 9, or 10: This indicates that the cancer cells look very different than normal prostate cells (poorly differentiated). How is this treated? Treatment for this condition depends on several factors, including the stage of the cancer, your age, personal preferences, and your overall health. Talk with your health care provider about treatment options that are recommended for you. Common treatments include: ??? Observation for early stage prostate cancer (active surveillance). This involves having exams, blood tests, and in some cases, more biopsies. For some men, this is the only treatment needed. ??? Surgery. Types of surgeries include: ? Open surgery (radical prostatectomy). In this surgery, a larger incision is made to remove the prostate. ? A laparoscopic radical prostatectomy. This is a surgery to remove the prostate and lymph nodes through several small incisions. It is often referred to as a minimally invasive surgery. ? A robotic radical prostatectomy. This is laparoscopic surgery to remove the prostate and lymph nodes with the help of robotic arms that are controlled by the surgeon. ? Cryoablation. This is surgery to freeze and destroy cancer cells. ??? Radiation treatment. Types of radiation treatment include: ? External beam radiation. This type aims beams of radiation from outside the body at the prostate to destroy cancerous cells. ? Brachytherapy. This type uses radioactive needles, seeds, wires, o (more content not included)... [facility] 10-10-2024 History of Present illness Narrative Images from the original note were not included. Subjective Patient ID: Meredith Villatoro is a 64 y.o. male who presents for Consult (Meredith Villatoro is a 64 y.o. male who presents for FUV Left ankle pain and AFO check. Patient relates when he reaches to remove the brace, his ankle feels like pins and needles. Patient has intermittent stabbing pain at nighttime in the right ankle. Patients sister Yolette to discuss option.s ). HPI This is an established patient of the practice who presents to me for consultation of possible ankle fusion. Patient has a prolonged history of 3-4 years of chronic left ankle pain. He had failed multiple injections by another provider. Patient had an ankle arthroscopy with Dr. Lopez date of surgery 02/04/2023. Patient states that the arthroscopy did not resolve his pain and he continue to have pain and inflammation regularly. Further injections were not helpful. He then presented to Dr. Benitez for a 2nd opinion who discussed rigid bracing. Patient currently has an Sarai brace that he has been using for about a month with some minimal improvement. He continues to have pain on a daily basis. He locates his pain to the anterior aspect of the tibiotalar joint. Patient is a poor historian and presents with his sister today. 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 Review of Systems Constitutional: Negative for activity change and appetite change. Respiratory: Negative for chest tightness and shortness of breath. Cardiovascular: Negative for chest pain. Musculoskeletal: Positive for arthralgias and gait problem. Skin: Negative for color change and wound. Neurological: Negative for weakness and numbness. Psychiatric/Behavioral: Negative for agitation and behavioral problems. Hematological: Does not bruise/bleed easily. Endocrine: Negative for cold intolerance and heat intolerance. Allergic/Immunologic: Negative for immunocompromised state. Medications Current Outpatient Medications: alfuzosin ER (Uroxatral) 10 MG 24 hr tablet, Take 10 mg by mouth in the morning., Disp: , Rfl: atorvastatin (Lipitor) 10 MG tablet, Take 10 mg by mouth in the morning., Disp: , Rfl: clopidogrel (Plavix) 75 MG tablet, Take 75 mg by mouth in the morning., Disp: , Rfl: cyclobenzaprine (Flexeril) 10 MG tablet, Take 10 mg by mouth 3 (three) times a day as needed., Disp: , Rfl: ibuprofen 800 MG tablet, take 1 tablet by mouth twice a day if needed for pain take with food, Disp: , Rfl: lidocaine (Lidoderm) 5 % patch, Place 1 patch on the skin 1 (one) time each day at the same time., Disp: , Rfl: lisinopril 10 MG tablet, 1 (one) time each day at the same time., Disp: , Rfl: meclizine (Antivert) 25 MG tablet, take 1 tablet by mouth three times a day if needed for 10 days, Disp: , Rfl: metoprolol tartrate (Lopressor) 50 MG tablet, every 12 (twelve) hours., Disp: , Rfl: Myrbetriq 50 MG 24 hr tablet, Take 50 mg by mouth in the morning., Disp: , Rfl: naproxen (EC Naprosyn) 500 MG EC tablet, Take 500 mg by mouth in the morning and 500 mg in the evening. Take with meals., Disp: , Rfl: oxybutynin XL (Ditropan-XL) 10 MG 24 hr tablet, Take 10 mg by mouth in the morning., Disp: , Rfl: RA Aspirin EC 325 MG EC tablet, Take 325 mg by mouth in the morning. (Patient not taking: Reported on 09/26/2024), Disp: , Rfl: tamsulosin (Flomax) 0.4 MG 24 hr capsule, Take 0.4 mg by mouth in the morning and 0.4 mg before bedtime., Disp: , Rfl: Allergies Codeine and Guaifenesin-codeine Past Surgical History Past Surgical History: Procedure Laterality Date MR ANGIOGRAM HEAD WO IV CONTRAST 06/22/2022 MR ANGIOGRAM HEAD WO IV CONTRAST 06/22/2022 Family History No family history on file. Objective Physical Exam Constitutional: Appearance: Normal appearance. HENT: Head: Normocephalic and atraumatic. Cardiovascular: Comments: Pedal pulses: DP 2/4 bilateral, PT 2/4 bilateral. Skin temp is warm to warm. Varicosities: absent Hair growth: present Pulmonary: Effort: Pulmonary effort is normal. Musculoskeletal: Right lower leg: No edema. Left lower leg: No edema. Comments: Weight-bearing examination reveals pes planovalgus deformity. Unable to perform a double heel rise test. Left foot: There seems to be generalized and diffuse tenderness to palpation about the entire anterior ankle joint. I am unable to elicit any maximal tenderness however he does seem to have the most tenderness along the anterior tibiotalar joint. Muscle strength 5/5 for all quadrants with tenderness on resisted inversion, eversion, dorsiflexion, plantar flexion. Ankle range of motion smooth but limited and guarded. Subtalar range of motion seems to be painful especially with forced inversion. No syndesmotic tenderness. Ankle dorsiflexion 0 degrees with the knee extended, flexed. Skin: General: Skin is warm and dry. Capillary Refill: Capillary refill takes less than 2 seconds. Findings: No bruising or erythema. Comments: SKIN FINDINGS: Webspaces are clean and dry. Skin texture and turgor normal. There is palpable osseous osteophyte at talar neck, this is visible with AJ ROM testing HYPERKERATOTIC LESION: none NAIL PATHOLOGY: elongated Neurological: Mental Status: He is alert and oriented to person, place, and time. Comments: Light touch sensation intact MRI left ankle with contrast 06/23/24: Shows small subcortical cysts of posterior tibial plafond secondary to full-thickness cartilage fissure. Mild subcortical bone marrow edema of lateral talar dome secondary to full-thickness cartilage defects. No ankle joint fusion. Degenerative changes are present along dorsal tn joint. Large osteophyte at talar head /neck. Edema of EDB muscle Assessment/Plan ICD-10-CM 1. Arthritis of left ankle M19.072 Ambulatory referral to Podiatry 2. Other synovitis and tenosynovitis, left ankle and foot M65.872 Ambulatory referral to Podiatry 3. Chronic pain of left ankle M25.572 Ambulatory referral to Podiatry G89.29 Patient examined and evaluated. Reviewed previous radiographs and personally reviewed his MRI findings. 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 For these reasons I do not think he is an excellent ankle fusion candidate. I think that he may be best served with ankle replacement given his failure of arthroscopy and bracing. At this point I recommend 2nd opinion with Dr. Granda to discuss ankle replacement. Referral made and I personally reached out to Dr. Granda as well who has graciously agreed to see him. I will follow up with him as needed. This note was created with the assistance of a speech recognition program. While intending to generate a timely document that accurately reflects the content of the visit, no guarantee can be provided that every grammatical or spelling mistake has been or will be identified or corrected. Thank you for your understanding. Melo Reilly DPM documented in this encounter [facility] 09-26-2024 History of Present illness Narrative Images from the original note were not included. Subjective Patient ID: Meredith Villatoro is a 64 y.o. male who presents for FUV/check brace (Meredith Villatoro is a 64 y.o. male who presents for FUV Left ankle pain and AFO check. Patient relates when he reaches to remove the brace, his ankle feels like pins and needles. Patient has intermittent stabbing pain at nighttime in the right ankle. ). HPI Established patient returns for follow up of left ankle pain. He states he received his rigid AFO brace 2-3 weeks ago. He has been wearing it from the time he gets up in the morning until the time he goes to sleep. He has noticed that his pain is present less often, but the severity of the pain, when present, is unchanged. While he does note improvement with the more rigid bracing, he still feels the left chronic ankle pain is inhibiting his quality of life as well as his activities of daily living. HX: poor historian. L ankle painful x 3-4 years. He has tried multiple conservative therapies - oral steroid taper, ASO ankle brace, supportive shoes, 2 steroid injections in the L ankle joint and an ankle scope by a different dessert cup machine feeder to remove some of the excess bone at the anterior ankle joint. Review of Systems Medications Current Outpatient Medications: alfuzosin ER (Uroxatral) 10 MG 24 hr tablet, Take 10 mg by mouth in the morning., Disp: , Rfl: atorvastatin (Lipitor) 10 MG tablet, Take 10 mg by mouth in the morning., Disp: , Rfl: clopidogrel (Plavix) 75 MG tablet, Take 75 mg by mouth in the morning., Disp: , Rfl: cyclobenzaprine (Flexeril) 10 MG tablet, Take 10 mg by mouth 3 (three) times a day as needed., Disp: , Rfl: ibuprofen 800 MG tablet, take 1 tablet by mouth twice a day if needed for pain take with food, Disp: , Rfl: lidocaine (Lidoderm) 5 % patch, Place 1 patch on the skin 1 (one) time each day at the same time., Disp: , Rfl: lisinopril 10 MG tablet, 1 (one) time each day at the same time., Disp: , Rfl: meclizine (Antivert) 25 MG tablet, take 1 tablet by mouth three times a day if needed for 10 days, Disp: , Rfl: metoprolol tartrate (Lopressor) 50 MG tablet, every 12 (twelve) hours., Disp: , Rfl: Myrbetriq 50 MG 24 hr tablet, Take 50 mg by mouth in the morning., Disp: , Rfl: naproxen (EC Naprosyn) 500 MG EC tablet, Take 500 mg by mouth in the morning and 500 mg in the evening. Take with meals., Disp: , Rfl: oxybutynin XL (Ditropan-XL) 10 MG 24 hr tablet, Take 10 mg by mouth in the morning., Disp: , Rfl: RA Aspirin EC 325 MG EC tablet, Take 325 mg by mouth in the morning. (Patient not taking: Reported on 09/26/2024), Disp: , Rfl: tamsulosin (Flomax) 0.4 MG 24 hr capsule, Take 0.4 mg by mouth in the morning and 0.4 mg before bedtime., Disp: , Rfl: Allergies Codeine and Guaifenesin-codeine Past Surgical History Past Surgical History: Procedure Laterality Date MR ANGIOGRAM HEAD WO IV CONTRAST 06/22/2022 MR ANGIOGRAM HEAD WO IV CONTRAST 06/22/2022 Family History No family history on file. Objective Physical Exam Constitutional: Appearance: Normal appearance. HENT: Head: Normocephalic and atraumatic. Cardiovascular: Comments: Pedal pulses: DP 2/4 bilateral, PT 2/4 bilateral. Skin temp is warm to warm. Varicosities: absent Hair growth: present Pulmonary: Effort: Pulmonary effort is normal. Musculoskeletal: Right lower leg: No edema. Left lower leg: No edema. Comments: ROM: AJ ROM L is limited. There is no catching or locking. There is no crepitus. There is mild pain with sub max passive ROM. There is soft end feel. STJ ROM is normal and pain free. MUSCLE STRENGTH: Dorsiflexion, plantarflexion, inversion, eversion are 5/5 b/l. PAIN: There is pain with palpation along the anterior aspect of the left ankle joint and along the medial and lateral gutters. Most severe pain is anterior medial and anterior central ankle. There is tenderness overlying the osseous prominence at the dorsal talar neck. There is no pain with palpation to the sinus tarsi, medial or lateral malleolus, or with palpation to PT or peroneal tendons. No pain at dorsal TN joint Skin: General: Skin is warm and dry. Capillary Refill: Capillary refill takes 2 to 3 seconds. Findings: No bruising or erythema. Comments: SKIN FINDINGS: Webspaces are clean and dry. Skin texture and turgor normal. There is palpable osseous osteophyte at talar neck, this is visible with AJ ROM testing HYPERKERATOTIC LESION: none NAIL PATHOLOGY: elongated Neurological: Mental Status: He is alert and oriented to person, place, and time. Comments: Light touch sensation intact MRI left ankle with contrast 06/23/24: Shows small subcortical cysts of posterior tibial plafond secondary to full-thickness cartilage fissure. Mild subcortical bone marrow edema of lateral talar dome secondary to full-thickness cartilage defects. No ankle joint fusion. Degenerative changes are present along dorsal tn joint. Large osteophyte at talar head /neck. Edema of EDB muscle Assessment/Plan ICD-10-CM 1. Arthritis of left ankle M19.072 2. Other enthesopathy of left foot and ankle M77.52 3. Chronic pain of left ankle M25.572 G89.29 4. Other synovitis and tenosynovitis, left ankle and foot M65.872 Patient was examined and evaluated. He continues to have breakthrough pain with use of the rigid AFO brace. He would like to discuss surgical options. He has failed local ankle injections in the past. We reviewed the main 2 surgical options of ankle fusion versus ankle replacement. I reviewed that either of these procedures would require significant recovery time, each having their own set of risks and possible complications. The patient lives at home with his mother who is in her 90s. 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 He relies on family and friends to get to appointments; he does not drive. There are many social issues that will effect his care plan. He would like to discuss his options with his family and friends. I recommended he return with a family member or friend to further discuss these surgical options with Dr. Melo Reilly, who would do the ankle fusion. I explained that if he would choose to have an ankle replacement, that procedure would be done out of town by a different doctor. Written notes were given to the pt to review with his family. He will return to further discuss his options with Dr. Melo Reilly. This note was created with the assistance of a speech recognition program. While intending to generate a timely document that accurately reflects the content of the visit, no guarantee can be provided that every grammatical or spelling mistake has been or will be identified or corrected. Thank you for your understanding. Kerri Benitez DPM documented in this encounter [facility] 09-15-2024 Miscellaneous Notes ----- Message from Dr. Tracy Chau DO sent at 09/15/2024 7:21 AM EDT ----- Please call pt. And let him know that polyps are benign and that colon biopsies were negative for colitis.He need surveillance colon scope in 5 years unless problems. ThanksDr. Martinez Spoke with patient regarding pathology results. Patient verbally understood with no further questions. Recall to be put in chart. documented in this encounter [facility] 09-15-2024 Telephone encounter Note ----- Message from Dr. Tracy Chau DO sent at 09/15/2024 7:21 AM EDT ----- Please call pt. And let him know that polyps are benign and that colon biopsies were negative for colitis.He need surveillance colon scope in 5 years unless problems. ThanksDr. Martinez [facility] 09-15-2024 Telephone encounter Note Spoke with patient regarding pathology results. Patient verbally understood with no further questions. Recall to be put in chart. [facility] 09-05-2024 Miscellaneous Notes Preoperative Education Checklist- General Surgery date: 09/11/24 Surgery time: 1130 Arrival time: 929 1. Bring a photo ID and your insurance card with you the day of surgery. You will check in at the main lobby of the [facility]- registration desk is straight ahead as soon as you walk in. Tell them you are here for surgery. 2. If you have a Living Will/Durable Power of Student for Health Care that is not on file here, please bring a copy the day of surgery. 3. Please shower/bathe the night before surgery with the provided soap or wipes. Do not shower the morning of surgery- you will do use wipes when you arrive here at the hospital before getting into your surgical gown. Do not shave the area of your procedure for 2 days prior to your surgery. 4. NO powder, lotion, perfume/cologne, aftershave, make-up, deodorant, or hair products after you have bathed. 5. NO nail moroccan/acrylic on at least one finger. If you are having a hand, wrist or foot surgery then all nail moroccan and artificial/acrylic nails must be removed from that hand or foot. 6. Avoid ALL Aspirin and non-steroidal anti-inflammatory drugs and certain vitamins (Ibuprofen, Advil, Aleve, Excedrin, Meloxicam, Celebrex, fish/krill oil, etc.) for 7 days prior to surgery as instructed by your surgeon and/or your prescribing doctor. Tylenol IS ALLOWED. If you are on Ticlid, Xarelto, Eliquis, Pradaxa, Plavix or Coumadin, please check with your prescribing doctor for instructions for when to stop them. 7. If you use an inhaler, continue to use it routinely. 8. Nothing to eat or drink (not even water, gum, mints, or hard candy!) AFTER midnight prior to your surgery. 9. Take only medications that you are instructed to on the morning of surgery with a TINY SIP OF WATER. 10. Choose a responsible adult that will be able to drive you home when you are discharged from your hospital stay for your surgery and can stay with you in your home for 24 hours after your procedure. You must NOT drive any vehicle or operate any machinery for 24 hours after surgery. 11. When you dress for your appointment, please wear loose fitting clothing that is appropriate to accommodate your surgical area procedure. BRING WITH YOU ANY DEVICES YOU MAY NEED: ORI hose, ice machine, sling/swath, brace or special shoe, oversized zip-up or button up shirt, CPAP machine if staying overnight. 12. Do NOT wear jewelry, watches, or any piercings or metal for surgery- leave these valuables and money at home. 13. Do NOT wear contact lenses for surgery- glasses are okay if needed. 14. The anesthesiologist will talk with you the day of surgery and will ask you to sign a Consent Form. 15. Refrain from smoking or any type of tobacco use for at least 8 hours and marijuana for 24 hours prior to arrival for your surgery. 16. If a GREEN BLOOD band is given to you, please bring it with you for the day of surgery. 17. Notify your surgeon if you develop any illness before your surgery. 18. If you are staying overnight, please DO NOT BRING your home medications with you. 19. If you have any questions prior to surgery, please call the Preadmission Testing office at [phone], Mon.-Fri. 7 a.m.-3 p.m. Leave a voicemail if needed. Pre-Surgery Instructions: Medication Instructions atorvastatin (LIPITOR) 20 mg tablet Stop taking 0 days prior to procedure dicyclomine (BENTYL) 20 mg tablet Stop taking 0 days prior to procedure indomethacin (INDOCIN) 50 mg capsule Stop taking 1 week prior to procedure lisinopriL (PRINIVIL,ZESTRIL) 10 mg tablet Stop taking 0 days prior to procedure metoprolol tartrate (LOPRESSOR) 50 mg tablet Take morning of procedure MYRBETRIQ 50 mg tablet extended release 24 hr Stop taking 0 days prior to procedure sod sulf-pot chloride-mag sulf 1.479-0.188- 0.225 gram tablet Stop taking 0 days prior to procedure tamsulosin (FLOMAX) 0.4 mg capsule Stop taking 0 days prior to procedure documented in this encounter [facility] 09-05-2024 Nurse Note Preoperative Education Checklist- General Surgery date: 09/11/24 Surgery time: 1129 Arrival time: 929 1. Bring a photo ID and your insurance card with you the day of surgery. You will check in at the main lobby of the [facility]- registration desk is straight ahead as soon as you walk in. Tell them you are here for surgery. 2. If you have a Living Will/Durable Power of Student for Health Care that is not on file here, please bring a copy the day of surgery. 3. Please shower/bathe the night before surgery with the provided soap or wipes. Do not shower the morning of surgery- you will do use wipes when you arrive here at the hospital before getting into your surgical gown. Do not shave the area of your procedure for 2 days prior to your surgery. 4. NO powder, lotion, perfume/cologne, aftershave, make-up, deodorant, or hair products after you have bathed. 5. NO nail moroccan/acrylic on at least one finger. If you are having a hand, wrist or foot surgery then all nail moroccan and artificial/acrylic nails must be removed from that hand or foot. 6. Avoid ALL Aspirin and non-steroidal anti-inflammatory drugs and certain vitamins (Ibuprofen, Advil, Aleve, Excedrin, Meloxicam, Celebrex, fish/krill oil, etc.) for 7 days prior to surgery as instructed by your surgeon and/or your prescribing doctor. Tylenol IS ALLOWED. If you are on Ticlid, Xarelto, Eliquis, Pradaxa, Plavix or Coumadin, please check with your prescribing doctor for instructions for when to stop them. 7. If you use an inhaler, continue to use it routinely. 8. Nothing to eat or drink (not even water, gum, mints, or hard candy!) AFTER midnight prior to your surgery. 9. Take only medications that you are instructed to on the morning of surgery with a TINY SIP OF WATER. 10. Choose a responsible adult that will be able to drive you home when you are discharged from your hospital stay for your surgery and can stay with you in your home for 24 hours after your procedure. You must NOT drive any vehicle or operate any machinery for 24 hours after surgery. 11. When you dress for your appointment, please wear loose fitting clothing that is appropriate to accommodate your surgical area procedure. BRING WITH YOU ANY DEVICES YOU MAY NEED: ORI hose, ice machine, sling/swath, brace or special shoe, oversized zip-up or button up shirt, CPAP machine if staying overnight. 12. Do NOT wear jewelry, watches, or any piercings or metal for surgery- leave these valuables and money at home. 13. Do NOT wear contact lenses for surgery- glasses are okay if needed. 14. The anesthesiologist will talk with you the day of surgery and will ask you to sign a Consent Form. 15. Refrain from smoking or any type of tobacco use for at least 8 hours and marijuana for 24 hours prior to arrival for your surgery. 16. If a GREEN BLOOD band is given to you, please bring it with you for the day of surgery. 17. Notify your surgeon if you develop any illness before your surgery. 18. If you are staying overnight, please DO NOT BRING your home medications with you. 19. If you have any questions prior to surgery, please call the Preadmission Testing office at [phone], Mon.-Fri. 7 a.m.-3 p.m. Leave a voicemail if needed. Pre-Surgery Instructions: Medication Instructions atorvastatin (LIPITOR) 20 mg tablet Stop taking 0 days prior to procedure dicyclomine (BENTYL) 20 mg tablet Stop taking 0 days prior to procedure indomethacin (INDOCIN) 50 mg capsule Stop taking 1 week prior to procedure lisinopriL (PRINIVIL,ZESTRIL) 10 mg tablet Stop taking 0 days prior to procedure metoprolol tartrate (LOPRESSOR) 50 mg tablet Take morning of procedure MYRBETRIQ 50 mg tablet extended release 24 hr Stop taking 0 days prior to procedure sod sulf-pot chloride-mag sulf 1.479-0.188- 0.225 gram tablet Stop taking 0 days prior to procedure tamsulosin (FLOMAX) 0.4 mg capsule Stop taking 0 days prior to procedure [facility] 08-24-2024 Telephone encounter Note We had to fax over office notes to Jeni, but they do need a wet signature before we send again. I will set on your desk. [facility] 08-24-2024 Miscellaneous Notes We had to fax over office notes to Jeni, but they do need a wet signature before we send again. I will set on your desk. documented in this encounter [facility] 07-18-2024 History of Present illness Narrative Images from the original note were not included. Subjective Patient ID: Meredith Villatoro is a 64 y.o. male who presents for MRI results. HPI Patient presents for MRI results. Pt has chronic left ankle pain that is present daily making it difficult to walk. Patient is a poor historian but thinks the ankle has been painful for 3-4 years. He has tried multiple conservative therapies - oral steroid taper, ASO ankle brace, supportive shoes, 2 steroid injections in the L ankle joint and an ankle scope by a different dessert cup machine feeder to remove some of the excess bone at the anterior ankle joint. He uses ibuprofen and Tylenol for the pain. Review of Systems Medications Current Outpatient Medications: alfuzosin ER (Uroxatral) 10 MG 24 hr tablet, Take 10 mg by mouth in the morning., Disp: , Rfl: atorvastatin (Lipitor) 10 MG tablet, Take 10 mg by mouth in the morning., Disp: , Rfl: clopidogrel (Plavix) 75 MG tablet, Take 75 mg by mouth in the morning., Disp: , Rfl: cyclobenzaprine (Flexeril) 10 MG tablet, Take 10 mg by mouth 3 (three) times a day as needed., Disp: , Rfl: ibuprofen 800 MG tablet, take 1 tablet by mouth twice a day if needed for pain take with food, Disp: , Rfl: lidocaine (Lidoderm) 5 % patch, Place 1 patch on the skin 1 (one) time each day at the same time., Disp: , Rfl: lisinopril 10 MG tablet, 1 (one) time each day at the same time., Disp: , Rfl: meclizine (Antivert) 25 MG tablet, take 1 tablet by mouth three times a day if needed for 10 days, Disp: , Rfl: metoprolol tartrate (Lopressor) 50 MG tablet, every 12 (twelve) hours., Disp: , Rfl: Myrbetriq 50 MG 24 hr tablet, Take 50 mg by mouth in the morning., Disp: , Rfl: naproxen (EC Naprosyn) 500 MG EC tablet, Take 500 mg by mouth in the morning and 500 mg in the evening. Take with meals., Disp: , Rfl: oxybutynin XL (Ditropan-XL) 10 MG 24 hr tablet, Take 10 mg by mouth in the morning., Disp: , Rfl: RA Aspirin EC 325 MG EC tablet, Take 325 mg by mouth in the morning., Disp: , Rfl: tamsulosin (Flomax) 0.4 MG 24 hr capsule, Take 0.4 mg by mouth in the morning and 0.4 mg before bedtime., Disp: , Rfl: Allergies Codeine and Guaifenesin-codeine Past Surgical History Past Surgical History: Procedure Laterality Date MR ANGIOGRAM HEAD WO IV CONTRAST 06/22/2022 MR ANGIOGRAM HEAD WO IV CONTRAST 06/22/2022 Family History No family history on file. Objective Physical Exam Constitutional: Appearance: Normal appearance. HENT: Head: Normocephalic and atraumatic. Cardiovascular: Comments: Pedal pulses: DP 2/4 bilateral, PT 2/4 bilateral. Skin temp is warm to warm. Varicosities: absent Hair growth: present Pulmonary: Effort: Pulmonary effort is normal. Musculoskeletal: Right lower leg: No edema. Left lower leg: No edema. Comments: ROM: AJ ROM L is limited. There is no catching or locking. There is no crepitus. There is mild pain with sub max passive ROM. There is soft end feel. STJ ROM is normal and pain free. MUSCLE STRENGTH: Dorsiflexion, plantarflexion, inversion, eversion are 5/5 b/l. PAIN: There is pain with palpation along the anterior aspect of the left ankle joint and along the medial and lateral gutters. There is an osseous prominence at the dorsal talar neck that is palpable. There is tenderness with palpation to this as well. There is no pain with palpation to the sinus tarsi, medial or lateral malleolus, or with palpation to PT or peroneal tendons. No pain at dorsal TN joint Skin: General: Skin is warm and dry. Capillary Refill: Capillary refill takes 2 to 3 seconds. Findings: No bruising or erythema. Comments: SKIN FINDINGS: Webspaces are clean and dry. Skin texture and turgor normal. There is palpable osseous osteophyte at talar neck, this is visible with AJ ROM testing HYPERKERATOTIC LESION: none NAIL PATHOLOGY: elongated Neurological: Mental Status: He is alert and oriented to person, place, and time. Comments: Light touch sensation intact MRI left ankle with contrast 06/23/24: Shows small subcortical cysts of posterior tibial plafond secondary to full-thickness cartilage fissure. Mild subcortical bone marrow edema of lateral talar dome secondary to full-thickness cartilage defects. No ankle joint fusion. Degenerative changes are present along dorsal tn joint. Large osteophyte at talar head /neck. Edema of EDB muscle Assessment/Plan ICD-10-CM 1. Arthritis of left ankle M19.072 2. Other enthesopathy of left foot and ankle M77.52 3. Chronic pain of left ankle M25.572 G89.29 4. Other synovitis and tenosynovitis, left ankle and foot M65.872 5. Difficulty walking R26.2 Reviewed MRI findings with the patient. The extensive degenerative changes noted of the hindfoot could be treated conservatively with custom rigid AFO. We also discussed surgical intervention of ankle fusion versus ankle replacement. Pt States he would like to start with the rigid AFO ankle brace. The patient has been utilizing a L1902 stabilizing ankle brace for ankle joint pain. Pt has tried and failed this therapy reporting continued pain. Pt has not noticed lasting improvement in symptoms and therefore a custom, rigid AFO ([place] brace or [place]) brace is recommended. RX for Bety and [place] given to the pt, as he relies on his friend for rides and doesn't know which city would be easier to get to. RTO 4-5 weeks for recheck with THOMAS [email or web address] This note was created with the assistance of a speech recognition program. While intending to generate a timely document that accurately reflects the content of the visit, no guarantee can be provided that every grammatical or spelling mistake has been or will be identified or corrected. Thank you for your understanding. Kerri Benitez DPM documented in this encounter [facility] 03-17-2024 Hospital Discharge instructions Patient Education 03/17/2024 12:20:18 Prostate Cancer Prostate Cancer The prostate is a small gland that produces fluid that makes up semen (seminal fluid). It is located below the bladder in men, in front of the rectum. Prostate cancer is the abnormal growth of cells in the prostate gland. What are the causes? The exact cause of this condition is not known. What increases the risk? You are more likely to develop this condition if: You are 65 years of age or older. You have a family history of prostate cancer. You have a family history of breast and ovarian cancer. You have genes that are passed from parent to child (inherited), such as BRCA1 and BRCA2. You have Simpson syndrome. men and men of descent are diagnosed with prostate cancer at higher rates than other men. The reasons for this are not well understood and are likely due to a combination of genetic and environmental factors. What are the signs or symptoms? Symptoms of this condition include: Problems with urination. This may include: ?A weak or interrupted flow of urine. ?Trouble starting or stopping urination. ?Trouble emptying the bladder all the way. ?The need to urinate more often, especially at night. Blood in urine or semen. Persistent pain or discomfort in the lower back, lower abdomen, or hips. Trouble getting an erection. Weakness or numbness in the legs or feet. How is this diagnosed? This condition can be diagnosed with: A digital rectal exam. For this exam, a health care provider inserts a gloved finger into the rectum to feel the prostate gland. A blood test called a prostate-specific antigen (PSA) test. A procedure in which a sample of tissue is taken from the prostate and checked under a microscope (prostate biopsy). An imaging test called transrectal ultrasonography. Once the condition is diagnosed, tests will be done to determine how far the cancer has spread. This is called staging the cancer. Staging may involve imaging tests, such as a bone scan, CT scan, PET scan, or MRI. Stages of prostate cancer The stages of prostate cancer are as follows: Stage 1 (I). At this stage, the cancer is found in the prostate only. The cancer is not visible on imaging tests, and it is usually found by accident, such as during prostate surgery. Stage 2 (II). At this stage, the cancer is more advanced than it is in stage 1, but the cancer has not spread outside the prostate. Stage 3 (III). At this stage, the cancer has spread beyond the outer layer of the prostate to nearby tissues. The cancer may be found in the seminal vesicles, which are near the bladder and the prostate. Stage 4 (IV). At this stage, the cancer has spread to other parts of the body, such as the lymph nodes, bones, bladder, rectum, liver, or lungs. Prostate cancer grading Prostate cancer is also graded according to how the cancer cells look under a microscope. This is called the [place] score and the total score can range from 6 10, indicating how likely it is that the cancer will spread (metastasize) to other parts of the body. The higher the score, the greater the likelihood that the cancer will spread. Judd 6 or lower: This indicates that the cancer cells look similar to normal prostate cells (well differentiated). [place] 7: This indicates that the cancer cells look somewhat similar to normal prostate cells (moderately differentiated). Judd 8, 9, or 10: This indicates that the cancer cells look very different than normal prostate cells (poorly differentiated). How is this treated? Treatment for this condition depends on several factors, including the stage of the cancer, your age, personal preferences, and your overall health. Talk with your health care provider about treatment options that are recommended for you. Common treatments include: Observation for early stage prostate cancer (active surveillance). This involves having exams, blood tests, and in some cases, more biopsies. For some men, this is the only treatment needed. Surgery. Types of surgeries include: ?Open surgery (radical prostatectomy). In this surgery, a larger incision is made to remove the prostate. ?A laparoscopic radical prostatectomy. This is a surgery to remove the prostate and lymph nodes through several small incisions. It is often referred to as a minimally invasive surgery. ?A robotic radical prostatectomy. This is laparoscopic surgery to remove the prostate and lymph nodes with the help of robotic arms that are controlled by the surgeon. ?Cryoablation. This is surgery to freeze and destroy cancer cells. Radiation treatment. Types of radiation treatment include: ?External beam radiation. This type aims beams of radiation from outside the body at the prostate to destroy cancerous cells. ?Brachytherapy. This type uses radioactive needles, seeds, wires, or tubes that are implanted into the prostate gland. Like external beam radiation, brachytherapy destroys cancerous cells. An advantage is that this type of radiation limits the damage to surrounding tissue and has fewer side effects. Chemotherapy. This treatment kills cancer cells or stops them from multiplying. It kills both cancer cells and normal cells. Targeted therapy. This treatment uses medicines to kill cancer cells without damaging normal cells. Hormone treatment. This treatment involves taking medicines that act on testosterone, one of the male hormones, by: ?Stopping your body from producing testosterone. ?Blocking testosterone from reaching cancer cells. Follow these instructions at home: Lifestyle Do not use any products that contain nicotine or tobacco. These products include cigarettes, chewing tobacco, and vaping devices, such as e-cigarettes. If you need help quitting, ask your health care provider. Eat a healthy diet. To do this: ?Eat foods that are high in fiber. These include beans, whole grains, and fresh fruits and vegetables. ?Limit foods that are high in fat and sugar. These include fried or sweet foods. Treatment for prostate cancer may affect sexual function. If you have a partner, continue to have intimate moments. This may include touching, holding, hugging, and caressing your partner. Get plenty of sleep. Consider joining a support group for men who have prostate cancer. Meeting with a support group may help you learn to manage the stress of having cancer. General instructions Take [id number] and prescription medicines only as told by your health care provider. If you have to go to the hospital, notify your cancer specialist (oncologist). Keep all follow-up visits. This is important. Where to find more information [place] [employer]: www.cancer.org [place] [employer]: www.cancer.net National Cancer [place]: www.cancer.gov Contact a health care provider if: You have new or increasing trouble urinating. You have new or increasing blood in your urine. You have new or increasing pain in your hips, back, or chest. Get help right away if: You have weakness or numbness in your legs. You cannot control urination or your bowel movements (incontinence). You have chills or a fever. Summary The prostate is a small gland that is involved in the production of semen. It is located below a man's bladder, in front of the rectum. Prostate cancer is the abnormal growth of cells in the prostate gland. Treatment for this condition depends on the stage of the cancer, your age, personal preferences, and your overall health. Talk with your health care provider about treatment options that are recommended for you. Consider joining a support group for men who have prostate cancer. Meeting with a support group may help you learn to manage the stress of having cancer. This information is not intended to replace advice given to you by your health care provider. Make sure you discuss any questions you have with your health care provider. Document Revised: 02/11/2022 Document Reviewed: 02/11/2022 [employer] Patient Education 2022 [email or web address] Follow Up Care 09/13/2023 15:56:01 With:PETRA OVIEDO, Leila Simpson, URL Address: [address] [place] [address]- When: Unknown [facility] 01-04-2024 Note HNO ID: [id number] Author: Jhony LUX MD Service: ? Author Type: Physician Type: Progress Notes Filed: 01/12/2024 15:36 Note Text: Radiation Oncology - Follow Up Note PATIENT NAME: Meredith Villatoro PATIENT DIAGNOSIS: Prostate adenocarcinoma, initial PSA 2.0, biopsy [place] score 4 + 4 = 8 (grade group 4), clinical stage T2c, N0, M0, stage IIC [T1-T2, N0, M0, PSA <20, GG 4] (AJCC 8th ed.), s/p TRUS Random and MR Targeted biopsy. Prostate cancer (C61), 2019 NCCN Risk Group: High Risk Group RADIATION SUMMARY: Pelvis and prostate external radiation: 03/23/22 - 04/24/22 Prostate Brachytherapy: 05/21/22 DELIVERED DOSE: Area: PELVIS: 45Gy in 25 fractions, 2 ARCS, VMAT, 10MV WITH DAILY CBCT PROSTATE: 100Gy, Pd-103, 56 sources, 94.53 mCi INTERVAL HISTORY: Patient remains active. Still with some ongoing issues of bowel frequency. Has follow-up scheduled with gastroenterology. Denies other new issues or problems. PSA HISTORY: PSA (ng/mL) Date Value 07/03/2022 0.07 PSA. (no units) Date Value 09/06/2023 <0.1 02/16/2023 0.24 ALLERGIES No Known Allergies tamsulosin (FLOMAX) 0.4 mg 1 capsule. mirabegron (MYRBETRIQ) 50 mg Tb24 Take 50 mg by mouth. indomethacin (INDOCIN) 50 mg capsule take 1 capsule by mouth twice a day with food or milk for 14 days loperamide (IMODIUM) 2 mg cap(s) Take by mouth. ibuprofen (MOTRIN) 800 mg tablet Take 1 tablet by mouth every 8 hours as needed for pain. lisinopril (ZESTRIL, PRINIVIL) 10 mg tablet Take 10 mg by mouth. atorvastatin (LIPITOR) 10 mg tablet Take 10 mg by mouth once daily. metoprolol tartrate, short acting, (LOPRESSOR) 50 mg tablet Take 50 mg by mouth. FLUTICASONE PROPIONATE NASAL Use in the nose. REVIEW OF SYSTEMS: D/N = 4-6/2-3 Hematuria: none Dysuria: none Incontinence: none Urgency: moderate Catheter use: none - Total AUA Score: 13 Bowel movement frequency: 1-3/day Bowel movement quality: variable Blood per rectum: No Androgen deprivation: Currently being treated with Lupron. PHYSICAL EXAM: BP 102/59 Pulse 87 Temp 36.2 ?C (97.1 ?F) Resp 18 Wt 111.3 kg (245 lb 6 oz) SpO2 98% BMI 41.15 kg/m? KPS: 100 General Appearance: Alert and oriented. No acute distress. Rectal exam is deferred. ASSESSMENT/PLAN: Prostate adenocarcinoma, initial PSA 2.0, biopsy [place] score 4 + 4 = 8 (grade group 4), clinical stage T2c, N0, M0, stage IIC [T1-T2, N0, M0, PSA <20, GG 4] (AJCC 8th ed.), s/p TRUS Random and MR Targeted biopsy. Prostate cancer (C61), 2019 NCCN Risk Group: High Risk Group 1 prostate cancer. Overall has had a good and durable PSA response. Continues close follow-up with Dr. Lambert. 2. Diarrhea much improved. Follow-up with GI. Signed by: Jhony Lux MD [facility] 01-04-2024 Note HNO ID: [id number] Author: Jhony LUX MD Service: ? Author Type: Physician Type: Progress Notes Filed: 01/12/2024 15:36 Note Text: Radiation Oncology - Follow Up Note PATIENT NAME: Meredith Villatoro PATIENT DIAGNOSIS: Prostate adenocarcinoma, initial PSA 2.0, biopsy Judd score 4 + 4 = 8 (grade group 4), clinical stage T2c, N0, M0, stage IIC [T1-T2, N0, M0, PSA <20, GG 4] (AJCC 8th ed.), s/p TRUS Random and MR Targeted biopsy. Prostate cancer (C61), 2019 NCCN Risk Group: High Risk Group RADIATION SUMMARY: Pelvis and prostate external radiation: 03/23/22 - 04/24/22 Prostate Brachytherapy: 05/21/22 DELIVERED DOSE: Area: PELVIS: 45Gy in 25 fractions, 2 ARCS, VMAT, 10MV WITH DAILY CBCT PROSTATE: 100Gy, Pd-103, 56 sources, 94.53 mCi INTERVAL HISTORY: Patient remains active. Has some fatigue. Has had some breast pain, underwent evaluation with mammograms showing mild gynecomastia only. States urinary function has improved but still with occasional dysuria. No hematuria. PSA HISTORY: PSA (ng/mL) Date Value 07/03/2022 0.07 PSA. (no units) Date Value 09/06/2023 <0.1 02/16/2023 0.24 ALLERGIES No Known Allergies tamsulosin (FLOMAX) 0.4 mg 1 capsule. mirabegron (MYRBETRIQ) 50 mg Tb24 Take 50 mg by mouth. indomethacin (INDOCIN) 50 mg capsule take 1 capsule by mouth twice a day with food or milk for 14 days loperamide (IMODIUM) 2 mg cap(s) Take by mouth. ibuprofen (MOTRIN) 800 mg tablet Take 1 tablet by mouth every 8 hours as needed for pain. lisinopril (ZESTRIL, PRINIVIL) 10 mg tablet Take 10 mg by mouth. atorvastatin (LIPITOR) 10 mg tablet Take 10 mg by mouth once daily. metoprolol tartrate, short acting, (LOPRESSOR) 50 mg tablet Take 50 mg by mouth. FLUTICASONE PROPIONATE NASAL Use in the nose. diphenoxylate-atropine (LOMOTIL) 2.5-0.025 mg per tablet take 1 tablet by mouth twice a day if needed for diarrhea alfuzosin SR (UROXATRAL) 10 mg 24 hr tablet Take 10 mg by mouth once daily. doxycycline hyclate (VIBRAMYCIN) 100 mg capsule Take 100 mg by mouth twice daily. REVIEW OF SYSTEMS: D/N = 4-6/2-3 Hematuria: none Dysuria: none Incontinence: none Urgency: moderate Catheter use: none - Total AUA Score: 18 Bowel movement frequency: 1-3/day Bowel movement quality: variable Blood per rectum: No Androgen deprivation: Currently being treated with Lupron. PHYSICAL EXAM: BP 102/59 Pulse 87 Temp 36.2 ?C (97.1 ?F) Resp 18 Wt 111.3 kg (245 lb 6 oz) SpO2 98% BMI 41.15 kg/m? KPS: 100 General Appearance: Alert and oriented. No acute distress. Rectal exam is deferred. ASSESSMENT/PLAN: Prostate adenocarcinoma, initial PSA 2.0, biopsy Judd score 4 + 4 = 8 (grade group 4), clinical stage T2c, N0, M0, stage IIC [T1-T2, N0, M0, PSA <20, GG 4] (AJCC 8th ed.), s/p TRUS Random and MR Targeted biopsy. Prostate cancer (C61), 2019 NCCN Risk Group: High Risk Group 1 prostate cancer. Overall has had a good PSA response. Has had some persistence urinary issues though improved. Continues close follow-up with Dr. Lambert. 2. Diarrhea much improved. 3. Gynecomastia likely related to ADT. Signed by: Jhony Lux MD [facility] 01-04-2024 History of Present illness Narrative Radiation Oncology - Follow Up Note PATIENT NAME: Meredith Villatoro PATIENT DIAGNOSIS: Prostate adenocarcinoma, initial PSA 2.0, biopsy Judd score 4 + 4 = 8 (grade group 4), clinical stage T2c, N0, M0, stage IIC [T1-T2, N0, M0, PSA <20, GG 4] (AJCC 8th ed.), s/p TRUS Random and MR Targeted biopsy. Prostate cancer (C61), 2019 NCCN Risk Group: High Risk Group RADIATION SUMMARY: Pelvis and prostate external radiation: 03/23/22 - 04/24/22 Prostate Brachytherapy: 05/21/22 DELIVERED DOSE: Area: PELVIS: 45Gy in 25 fractions, 2 ARCS, VMAT, 10MV WITH DAILY CBCT PROSTATE: 100Gy, Pd-103, 56 sources, 94.53 mCi INTERVAL HISTORY: Patient remains active. Still with some ongoing issues of bowel frequency. Has follow-up scheduled with gastroenterology. Denies other new issues or problems. PSA HISTORY: PSA (ng/mL) Date Value 07/03/2022 0.07 PSA. (no units) Date Value 09/06/2023 <0.1 02/16/2023 0.24 ALLERGIES No Known Allergies tamsulosin (FLOMAX) 0.4 mg 1 capsule. mirabegron (MYRBETRIQ) 50 mg Tb24 Take 50 mg by mouth. indomethacin (INDOCIN) 50 mg capsule take 1 capsule by mouth twice a day with food or milk for 14 days loperamide (IMODIUM) 2 mg cap(s) Take by mouth. ibuprofen (MOTRIN) 800 mg tablet Take 1 tablet by mouth every 8 hours as needed for pain. lisinopril (ZESTRIL, PRINIVIL) 10 mg tablet Take 10 mg by mouth. atorvastatin (LIPITOR) 10 mg tablet Take 10 mg by mouth once daily. metoprolol tartrate, short acting, (LOPRESSOR) 50 mg tablet Take 50 mg by mouth. FLUTICASONE PROPIONATE NASAL Use in the nose. REVIEW OF SYSTEMS: D/N = 4-6/2-3 Hematuria: none Dysuria: none Incontinence: none Urgency: moderate Catheter use: none - Total AUA Score: 13 Bowel movement frequency: 1-3/day Bowel movement quality: variable Blood per rectum: No Androgen deprivation: Currently being treated with Lupron. PHYSICAL EXAM: BP 102/59 Pulse 87 Temp 36.2 C (97.1 F) Resp 18 Wt 111.3 kg (245 lb 6 oz) SpO2 98% BMI 41.15 kg/m KPS: 100 General Appearance: Alert and oriented. No acute distress. Rectal exam is deferred. ASSESSMENT/PLAN: Prostate adenocarcinoma, initial PSA 2.0, biopsy [place] score 4 + 4 = 8 (grade group 4), clinical stage T2c, N0, M0, stage IIC [T1-T2, N0, M0, PSA <20, GG 4] (AJCC 8th ed.), s/p TRUS Random and MR Targeted biopsy. Prostate cancer (C61), 2019 NCCN Risk Group: High Risk Group 1 prostate cancer. Overall has had a good and durable PSA response. Continues close follow-up with Dr. Lambert. 2. Diarrhea much improved. Follow-up with GI. Signed by: Jhony Lux MD Radiation Oncology - Follow Up Note PATIENT NAME: Meredith Villatoro PATIENT DIAGNOSIS: Prostate adenocarcinoma, initial PSA 2.0, biopsy Judd score 4 + 4 = 8 (grade group 4), clinical stage T2c, N0, M0, stage IIC [T1-T2, N0, M0, PSA <20, GG 4] (AJCC 8th ed.), s/p TRUS Random and MR Targeted biopsy. Prostate cancer (C61), 2019 NCCN Risk Group: High Risk Group RADIATION SUMMARY: Pelvis and prostate external radiation: 03/23/22 - 04/24/22 Prostate Brachytherapy: 05/21/22 DELIVERED DOSE: Area: PELVIS: 45Gy in 25 fractions, 2 ARCS, VMAT, 10MV WITH DAILY CBCT PROSTATE: 100Gy, Pd-103, 56 sources, 94.53 mCi INTERVAL HISTORY: Patient remains active. Has some fatigue. Has had some breast pain, underwent evaluation with mammograms showing mild gynecomastia only. States urinary function has improved but still with occasional dysuria. No hematuria. PSA HISTORY: PSA (ng/mL) Date Value 07/03/2022 0.07 PSA. (no units) Date Value 09/06/2023 <0.1 02/16/2023 0.24 ALLERGIES No Known Allergies tamsulosin (FLOMAX) 0.4 mg 1 capsule. mirabegron (MYRBETRIQ) 50 mg Tb24 Take 50 mg by mouth. indomethacin (INDOCIN) 50 mg capsule take 1 capsule by mouth twice a day with food or milk for 14 days loperamide (IMODIUM) 2 mg cap(s) Take by mouth. ibuprofen (MOTRIN) 800 mg tablet Take 1 tablet by mouth every 8 hours as needed for pain. lisinopril (ZESTRIL, PRINIVIL) 10 mg tablet Take 10 mg by mouth. atorvastatin (LIPITOR) 10 mg tablet Take 10 mg by mouth once daily. metoprolol tartrate, short acting, (LOPRESSOR) 50 mg tablet Take 50 mg by mouth. FLUTICASONE PROPIONATE NASAL Use in the nose. diphenoxylate-atropine (LOMOTIL) 2.5-0.025 mg per tablet take 1 tablet by mouth twice a day if needed for diarrhea alfuzosin SR (UROXATRAL) 10 mg 24 hr tablet Take 10 mg by mouth once daily. doxycycline hyclate (VIBRAMYCIN) 100 mg capsule Take 100 mg by mouth twice daily. REVIEW OF SYSTEMS: D/N = 4-6/2-3 Hematuria: none Dysuria: none Incontinence: none Urgency: moderate Catheter use: none - Total AUA Score: 18 Bowel movement frequency: 1-3/day Bowel movement quality: variable Blood per rectum: No Androgen deprivation: Currently being treated with Lupron. PHYSICAL EXAM: BP 102/59 Pulse 87 Temp 36.2 C (97.1 F) Resp 18 Wt 111.3 kg (245 lb 6 oz) SpO2 98% BMI 41.15 kg/m KPS: 100 General Appearance: Alert and oriented. No acute distress. Rectal exam is deferred. ASSESSMENT/PLAN: Prostate adenocarcinoma, initial PSA 2.0, biopsy Judd score 4 + 4 = 8 (grade group 4), clinical stage T2c, N0, M0, stage IIC [T1-T2, N0, M0, PSA <20, GG 4] (AJCC 8th ed.), s/p TRUS Random and MR Targeted biopsy. Prostate cancer (C61), 2019 NCCN Risk Group: High Risk Group 1 prostate cancer. Overall has had a good PSA response. Has had some persistence urinary issues though improved. Continues close follow-up with Dr. Lambert. 2. Diarrhea much improved. 3. Gynecomastia likely related to ADT. Signed by: Jhony Lux MD documented in this encounter [facility] 01-04-2024 Nurse Note AUA= 13 Clinical questionnaires incomplete due to Patient declined to complete or answer questions with nurse documented in this encounter [facility] 09-13-2023 Hospital Discharge instructions Patient Education 09/13/2023 15:45:43 Benign Prostatic Hyperplasia Benign Prostatic Hyperplasia Benign prostatic hyperplasia (BPH) is an enlarged prostate gland that is caused by the normal aging process. The prostate may get bigger as a man gets older. The condition is not caused by cancer. The prostate is a walnut-sized gland that is involved in the production of semen. It is located in front of the rectum and below the bladder. The bladder stores urine. The urethra carries stored urine out of the body. An enlarged prostate can press on the urethra. This can make it harder to pass urine. The buildup of urine in the bladder can cause infection. Back pressure and infection may progress to bladder damage and kidney (renal) failure. What are the causes? This condition is part of the normal aging process. However, not all men develop problems from this condition. If the prostate enlarges away from the urethra, urine flow will not be blocked. If it enlarges toward the urethra and compresses it, there will be problems passing urine. What increases the risk? This condition is more likely to develop in men older than 50 years. What are the signs or symptoms? Symptoms of this condition include: Getting up often during the night to urinate. Needing to urinate frequently during the day. Difficulty starting urine flow. Decrease in size and strength of your urine stream. Leaking (dribbling) after urinating. Inability to pass urine. This needs immediate treatment. Inability to completely empty your bladder. Pain when you pass urine. This is more common if there is also an infection. Urinary tract infection (UTI). How is this diagnosed? This condition is diagnosed based on your medical history, a physical exam, and your symptoms. Tests will also be done, such as: A post-void bladder scan. This measures any amount of urine that may remain in your bladder after you finish urinating. A digital rectal exam. In a rectal exam, your health care provider checks your prostate by putting a lubricated, gloved finger into your rectum to feel the back of your prostate gland. This exam detects the size of your gland and any abnormal lumps or growths. An exam of your urine (urinalysis). A prostate specific antigen (PSA) screening. This is a blood test used to screen for prostate cancer. An ultrasound. This test uses sound waves to electronically produce a picture of your prostate gland. Your health care provider may refer you to a specialist in kidney and prostate diseases (urologist). How is this treated? Once symptoms begin, your health care provider will monitor your condition (active surveillance or watchful waiting). Treatment for this condition will depend on the severity of your condition. Treatment may include: Observation and yearly exams. This may be the only treatment needed if your condition and symptoms are mild. Medicines to relieve your symptoms, including: ?Medicines to shrink the prostate. ?Medicines to relax the muscle of the prostate. Surgery in severe cases. Surgery may include: ?Prostatectomy. In this procedure, the prostate tissue is removed completely through an open incision or with a laparoscope or robotics. ?Transurethral resection of the prostate (TURP). In this procedure, a tool is inserted through the opening at the tip of the penis (urethra). It is used to cut away tissue of the inner core of the prostate. The pieces are removed through the same opening of the penis. This removes the blockage. ?Transurethral incision (TUIP). In this procedure, small cuts are made in the prostate. This lessens the prostate's pressure on the urethra. ?Transurethral microwave thermotherapy (TUMT). This procedure uses microwaves to create heat. The heat destroys and removes a small amount of prostate tissue. ?Transurethral needle ablation (TUNA). This procedure uses radio frequencies to destroy and remove a small amount of prostate tissue. ?Interstitial laser coagulation (ILC). This procedure uses a laser to destroy and remove a small amount of prostate tissue. ?Transurethral electrovaporization (TUVP). This procedure uses electrodes to destroy and remove a small amount of prostate tissue. ?Prostatic urethral lift. This procedure inserts an implant to push the lobes of the prostate away from the urethra. Follow these instructions at home: Take [id number] and prescription medicines only as told by your health care provider. Monitor your symptoms for any changes. Contact your health care provider with any changes. Avoid drinking large amounts of liquid before going to bed or out in public. Avoid or reduce how much caffeine or alcohol you drink. Give yourself time when you urinate. Keep all follow-up visits. This is important. Contact a health care provider if: You have unexplained back pain. Your symptoms do not get better with treatment. You develop side effects from the medicine you are taking. Your urine becomes very dark or has a bad smell. Your lower abdomen becomes distended and you have trouble passing urine. Get help right away if: You have a fever or chills. You suddenly cannot urinate. You feel light-headed or very dizzy, or you faint. There are large amounts of blood or clots in your urine. Your urinary problems become hard to manage. You develop moderate to severe low back or flank pain. The flank is the side of your body between the ribs and the hip. These symptoms may be an emergency. Get help right away. Call 911. Do not wait to see if the symptoms will go away. Do not drive yourself to the hospital. Summary Benign prostatic hyperplasia (BPH) is an enlarged prostate that is caused by the normal aging process. It is not caused by cancer. An enlarged prostate can press on the urethra. This can make it hard to pass urine. This condition is more likely to develop in men older than 50 years. Get help right away if you suddenly cannot urinate. This information is not intended to replace advice given to you by your health care provider. Make sure you discuss any questions you have with your health care provider. Document Revised: 06/03/2022 Document Reviewed: 06/03/2022 [employer] Patient Education 2022 [email or web address] 05/17/2023 08:39:24 Prostate Cancer Prostate Cancer The prostate is a small gland that produces fluid that makes up semen (seminal fluid). It is located below the bladder in men, in front of the rectum. Prostate cancer is the abnormal growth of cells in the prostate gland. What are the causes? The exact cause of this condition is not known. What increases the risk? You are more likely to develop this condition if: You are 65 years of age or older. You have a family history of prostate cancer. You have a family history of breast and ovarian cancer. You have genes that are passed from parent to child (inherited), such as BRCA1 and BRCA2. You have Simpson syndrome. men and men of descent are diagnosed with prostate cancer at higher rates than other men. The reasons for this are not well understood and are likely due to a combination of genetic and environmental factors. What are the signs or symptoms? Symptoms of this condition include: Problems with urination. This may include: ?A weak or interrupted flow of urine. ?Trouble starting or stopping urination. ?Trouble emptying the bladder all the way. ?The need to urinate more often, especially at night. Blood in urine or semen. Persistent pain or discomfort in the lower back, lower abdomen, or hips. Trouble getting an erection. Weakness or numbness in the legs or feet. How is this diagnosed? This condition can be diagnosed with: A digital rectal exam. For this exam, a health care provider inserts a gloved finger into the rectum to feel the prostate gland. A blood test called a prostate-specific antigen (PSA) test. A procedure in which a sample of tissue is taken from the prostate and checked under a microscope (prostate biopsy). An imaging test called transrectal ultrasonography. Once the condition is diagnosed, tests will be done to determine how far the cancer has spread. This is called staging the cancer. Staging may involve imaging tests, such as a bone scan, CT scan, PET scan, or MRI. Stages of prostate cancer The stages of prostate cancer are as follows: Stage 1 (I). At this stage, the cancer is found in the prostate only. The cancer is not visible on imaging tests, and it is usually found by accident, such as during prostate surgery. Stage 2 (II). At this stage, the cancer is more advanced than it is in stage 1, but the cancer has not spread outside the prostate. Stage 3 (III). At this stage, the cancer has spread beyond the outer layer of the prostate to nearby tissues. The cancer may be found in the seminal vesicles, which are near the bladder and the prostate. Stage 4 (IV). At this stage, the cancer has spread to other parts of the body, such as the lymph nodes, bones, bladder, rectum, liver, or lungs. Prostate cancer grading Prostate cancer is also graded according to how the cancer cells look under a microscope. This is called the [place] score and the total score can range from 6 10, indicating how likely it is that the cancer will spread (metastasize) to other parts of the body. The higher the score, the greater the likelihood that the cancer will spread. [place] 6 or lower: This indicates that the cancer cells look similar to normal prostate cells (well differentiated). Judd 7: This indicates that the cancer cells look somewhat similar to normal prostate cells (moderately differentiated). [place] 8, 9, or 10: This indicates that the cancer cells look very different than normal prostate cells (poorly differentiated). How is this treated? Treatment for this condition depends on several factors, including the stage of the cancer, your age, personal preferences, and your overall health. Talk with your health care provider about treatment options that are recommended for you. Common treatments include: Observation for early stage prostate cancer (active surveillance). This involves having exams, blood tests, and in some cases, more biopsies. For some men, this is the only treatment needed. Surgery. Types of surgeries include: ?Open surgery (radical prostatectomy). In this surgery, a larger incision is made to remove the prostate. ?A laparoscopic radical prostatectomy. This is a surgery to remove the prostate and lymph nodes through several small incisions. It is often referred to as a minimally invasive surgery. ?A robotic radical prostatectomy. This is laparoscopic surgery to remove the prostate and lymph nodes with the help of robotic arms that are controlled by the surgeon. ?Cryoablation. This is surgery to freeze and destroy cancer cells. Radiation treatment. Types of radiation treatment include: ?External beam radiation. This type aims beams of radiation from outside the body at the prostate to destroy cancerous cells. ?Brachytherapy. This type uses radioactive needles, seeds, wires, or tubes that are implanted into the prostate gland. Like external beam radiation, brachytherapy destroys cancerous cells. An advantage is that this type of radiation limits the damage to surrounding tissue and has fewer side effects. Chemotherapy. This treatment kills cancer cells or stops them from multiplying. It kills both cancer cells and normal cells. Targeted therapy. This treatment uses medicines to kill cancer cells without damaging normal cells. Hormone treatment. This treatment involves taking medicines that act on testosterone, one of the male hormones, by: ?Stopping your body from producing testosterone. ?Blocking testosterone from reaching cancer cells. Follow these instructions at home: Lifestyle Do not use any products that contain nicotine or tobacco. These products include cigarettes, chewing tobacco, and vaping devices, such as e-cigarettes. If you need help quitting, ask your health care provider. Eat a healthy diet. To do this: ?Eat foods that are high in fiber. These include beans, whole grains, and fresh fruits and vegetables. ?Limit foods that are high in fat and sugar. These include fried or sweet foods. Treatment for prostate cancer may affect sexual function. If you have a partner, continue to have intimate moments. This may include touching, holding, hugging, and caressing your partner. Get plenty of sleep. Consider joining a support group for men who have prostate cancer. Meeting with a support group may help you learn to manage the stress of having cancer. General instructions Take romd-rvm-eyahwln and prescription medicines only as told by your health care provider. If you have to go to the hospital, notify your cancer specialist (oncologist). Keep all follow-up visits. This is important. Where to find more information [place] [employer]: www.cancer.org [place] [employer]: www.cancer.net National Cancer [place]: www.cancer.gov Contact a health care provider if: You have new or increasing trouble urinating. You have new or increasing blood in your urine. You have new or increasing pain in your hips, back, or chest. Get help right away if: You have weakness or numbness in your legs. You cannot control urination or your bowel movements (incontinence). You have chills or a fever. Summary The prostate is a small gland that is involved in the production of semen. It is located below a man's bladder, in front of the rectum. Prostate cancer is the abnormal growth of cells in the prostate gland. Treatment for this condition depends on the stage of the cancer, your age, personal preferences, and your overall health. Talk with your health care provider about treatment options that are recommended for you. Consider joining a support group for men who have prostate cancer. Meeting with a support group may help you learn to manage the stress of having cancer. This information is not intended to replace advice given to you by your health care provider. Make sure you discuss any questions you have with your health care provider. Document Revised: 02/11/2022 Document Reviewed: 02/11/2022 [employer] Patient Education 2022 [email or web address] Follow Up Care 05/12/2023 15:19:24 With:PETRA OVIEDO, Leila Simpson, URL Address: [facility] [address], [place] [address]- When:Within 6 Month(s) Comments:w/PSA [facility] [place] 07-12-2023 Hospital Discharge instructions Patient Education 07/12/2023 12:05:41 Prostate Cancer Prostate Cancer The prostate is a small gland that produces fluid that makes up semen (seminal fluid). It is located below the bladder in men, in front of the rectum. Prostate cancer is the abnormal growth of cells in the prostate gland. What are the causes? The exact cause of this condition is not known. What increases the risk? You are more likely to develop this condition if: You are 65 years of age or older. You have a family history of prostate cancer. You have a family history of breast and ovarian cancer. You have genes that are passed from parent to child (inherited), such as BRCA1 and BRCA2. You have Simpson syndrome. men and men of descent are diagnosed with prostate cancer at higher rates than other men. The reasons for this are not well understood and are likely due to a combination of genetic and environmental factors. What are the signs or symptoms? Symptoms of this condition include: Problems with urination. This may include: ?A weak or interrupted flow of urine. ?Trouble starting or stopping urination. ?Trouble emptying the bladder all the way. ?The need to urinate more often, especially at night. Blood in urine or semen. Persistent pain or discomfort in the lower back, lower abdomen, or hips. Trouble getting an erection. Weakness or numbness in the legs or feet. How is this diagnosed? This condition can be diagnosed with: A digital rectal exam. For this exam, a health care provider inserts a gloved finger into the rectum to feel the prostate gland. A blood test called a prostate-specific antigen (PSA) test. A procedure in which a sample of tissue is taken from the prostate and checked under a microscope (prostate biopsy). An imaging test called transrectal ultrasonography. Once the condition is diagnosed, tests will be done to determine how far the cancer has spread. This is called staging the cancer. Staging may involve imaging tests, such as a bone scan, CT scan, PET scan, or MRI. Stages of prostate cancer The stages of prostate cancer are as follows: Stage 1 (I). At this stage, the cancer is found in the prostate only. The cancer is not visible on imaging tests, and it is usually found by accident, such as during prostate surgery. Stage 2 (II). At this stage, the cancer is more advanced than it is in stage 1, but the cancer has not spread outside the prostate. Stage 3 (III). At this stage, the cancer has spread beyond the outer layer of the prostate to nearby tissues. The cancer may be found in the seminal vesicles, which are near the bladder and the prostate. Stage 4 (IV). At this stage, the cancer has spread to other parts of the body, such as the lymph nodes, bones, bladder, rectum, liver, or lungs. Prostate cancer grading Prostate cancer is also graded according to how the cancer cells look under a microscope. This is called the Judd score and the total score can range from 6 10, indicating how likely it is that the cancer will spread (metastasize) to other parts of the body. The higher the score, the greater the likelihood that the cancer will spread. Judd 6 or lower: This indicates that the cancer cells look similar to normal prostate cells (well differentiated). Judd 7: This indicates that the cancer cells look somewhat similar to normal prostate cells (moderately differentiated). Judd 8, 9, or 10: This indicates that the cancer cells look very different than normal prostate cells (poorly differentiated). How is this treated? Treatment for this condition depends on several factors, including the stage of the cancer, your age, personal preferences, and your overall health. Talk with your health care provider about treatment options that are recommended for you. Common treatments include: Observation for early stage prostate cancer (active surveillance). This involves having exams, blood tests, and in some cases, more biopsies. For some men, this is the only treatment needed. Surgery. Types of surgeries include: ?Open surgery (radical prostatectomy). In this surgery, a larger incision is made to remove the prostate. ?A laparoscopic radical prostatectomy. This is a surgery to remove the prostate and lymph nodes through several small incisions. It is often referred to as a minimally invasive surgery. ?A robotic radical prostatectomy. This is laparoscopic surgery to remove the prostate and lymph nodes with the help of robotic arms that are controlled by the surgeon. ?Cryoablation. This is surgery to freeze and destroy cancer cells. Radiation treatment. Types of radiation treatment include: ?External beam radiation. This type aims beams of radiation from outside the body at the prostate to destroy cancerous cells. ?Brachytherapy. This type uses radioactive needles, seeds, wires, or tubes that are implanted into the prostate gland. Like external beam radiation, brachytherapy destroys cancerous cells. An advantage is that this type of radiation limits the damage to surrounding tissue and has fewer side effects. Chemotherapy. This treatment kills cancer cells or stops them from multiplying. It kills both cancer cells and normal cells. Targeted therapy. This treatment uses medicines to kill cancer cells without damaging normal cells. Hormone treatment. This treatment involves taking medicines that act on testosterone, one of the male hormones, by: ?Stopping your body from producing testosterone. ?Blocking testosterone from reaching cancer cells. Follow these instructions at home: Lifestyle Do not use any products that contain nicotine or tobacco. These products include cigarettes, chewing tobacco, and vaping devices, such as e-cigarettes. If you need help quitting, ask your health care provider. Eat a healthy diet. To do this: ?Eat foods that are high in fiber. These include beans, whole grains, and fresh fruits and vegetables. ?Limit foods that are high in fat and sugar. These include fried or sweet foods. Treatment for prostate cancer may affect sexual function. If you have a partner, continue to have intimate moments. This may include touching, holding, hugging, and caressing your partner. Get plenty of sleep. Consider joining a support group for men who have prostate cancer. Meeting with a support group may help you learn to manage the stress of having cancer. General instructions Take ymfu-dsa-npkkbiw and prescription medicines only as told by your health care provider. If you have to go to the hospital, notify your cancer specialist (oncologist). Keep all follow-up visits. This is important. Where to find more information [place] [employer]: www.cancer.org [place] [employer] Clinical Oncology: www.cancer.net National Cancer [place]: www.cancer.gov Contact a health care provider if: You have new or increasing trouble urinating. You have new or increasing blood in your urine. You have new or increasing pain in your hips, back, or chest. Get help right away if: You have weakness or numbness in your legs. You cannot control urination or your bowel movements (incontinence). You have chills or a fever. Summary The prostate is a small gland that is involved in the production of semen. It is located below a man's bladder, in front of the rectum. Prostate cancer is the abnormal growth of cells in the prostate gland. Treatment for this condition depends on the stage of the cancer, your age, personal preferences, and your overall health. Talk with your health care provider about treatment options that are recommended for you. Consider joining a support group for men who have prostate cancer. Meeting with a support group may help you learn to manage the stress of having cancer. This information is not intended to replace advice given to you by your health care provider. Make sure you discuss any questions you have with your health care provider. Document Revised: 02/11/2022 Document Reviewed: 02/11/2022 [employer] Patient Education 2022 [email or web address] Follow Up Care 05/17/2023 12:57:55 With:PETRA OVIEDO, Leila Simpson, URL Address: [facility] [address], [place] [phone] When: Unknown Comments:f/u scheduled 09/13/23 with PSA [facility] 07-06-2023 Note HNO ID: [id number] Author: Jhony Lux MD Service: ? Author Type: Physician Type: Progress Notes Filed: 07/08/2023 8:45 AM Note Text: Radiation Oncology - Follow Up Note PATIENT NAME: Meredith Villatoro PATIENT DIAGNOSIS: Prostate adenocarcinoma, initial PSA 2.0, biopsy [place] score 4 + 4 = 8 (grade group 4), clinical stage T2c, N0, M0, stage IIC [T1-T2, N0, M0, PSA <20, GG 4] (AJCC 8th ed.), s/p TRUS Random and MR Targeted biopsy. Prostate cancer (C61), 2019 NCCN Risk Group: High Risk Group RADIATION SUMMARY: Pelvis and prostate external radiation: 03/23/22 - 04/24/22 Prostate Brachytherapy: 05/21/22 DELIVERED DOSE: Area: PELVIS: 45Gy in 25 fractions, 2 ARCS, VMAT, 10MV WITH DAILY CBCT PROSTATE: 100Gy, Pd-103, 56 sources, 94.53 mCi INTERVAL HISTORY: Patient remains active. Has some fatigue. Has had some breast pain, underwent evaluation with mammograms showing mild gynecomastia only. States urinary function has improved but still with occasional dysuria. No hematuria. PSA HISTORY: PSA (ng/mL) Date Value 07/03/2022 0.07 PSA. (no units) Date Value 02/16/2023 0.24 ALLERGIES No Known Allergies indomethacin (INDOCIN) 50 mg capsule take 1 capsule by mouth twice a day with food or milk for 14 days loperamide (IMODIUM) 2 mg cap(s) Take by mouth. ibuprofen (MOTRIN) 800 mg tablet Take 1 tablet by mouth every 8 hours as needed for pain. diphenoxylate-atropine (LOMOTIL) 2.5-0.025 mg per tablet take 1 tablet by mouth twice a day if needed for diarrhea alfuzosin SR (UROXATRAL) 10 mg 24 hr tablet Take 10 mg by mouth once daily. lisinopril (ZESTRIL, PRINIVIL) 10 mg tablet Take 10 mg by mouth. atorvastatin (LIPITOR) 10 mg tablet Take 10 mg by mouth once daily. metoprolol tartrate, short acting, (LOPRESSOR) 50 mg tablet Take 50 mg by mouth. doxycycline hyclate (VIBRAMYCIN) 100 mg capsule Take 100 mg by mouth twice daily. FLUTICASONE PROPIONATE NASAL Use in the nose. REVIEW OF SYSTEMS: D/N = 4-6/2-3 Hematuria: none Dysuria: none Incontinence: none Urgency: moderate Catheter use: none - Total AUA Score: 18 Bowel movement frequency: 1-3/day Bowel movement quality: variable Blood per rectum: No Androgen deprivation: Currently being treated with Lupron. PHYSICAL EXAM: BP 117/75 Pulse 64 Temp (!) 35.7 ?C (96.3 ?F) Resp 18 Wt 110.9 kg (244 lb 9.6 oz) SpO2 97% BMI 41.02 kg/m? KPS: 100 General Appearance: Alert and oriented. No acute distress. Rectal exam is deferred. ASSESSMENT/PLAN: Prostate adenocarcinoma, initial PSA 2.0, biopsy Judd score 4 + 4 = 8 (grade group 4), clinical stage T2c, N0, M0, stage IIC [T1-T2, N0, M0, PSA <20, GG 4] (AJCC 8th ed.), s/p TRUS Random and MR Targeted biopsy. Prostate cancer (C61), 2019 NCCN Risk Group: High Risk Group 1 prostate cancer. Overall has had a good PSA response. Has had some persistence urinary issues though improved. Continues close follow-up with Dr. Lambert. 2. Diarrhea much improved. 3. Gynecomastia likely related to ADT. Signed by: Jhony Lux MD [facility] 07-06-2023 Nurse Note AUA 18 Michelle Dalal RN documented in this encounter [facility] 07-06-2023 History of Present illness Narrative Radiation Oncology - Follow Up Note PATIENT NAME: Meredith Villtaoro PATIENT DIAGNOSIS: Prostate adenocarcinoma, initial PSA 2.0, biopsy Judd score 4 + 4 = 8 (grade group 4), clinical stage T2c, N0, M0, stage IIC [T1-T2, N0, M0, PSA <20, GG 4] (AJCC 8th ed.), s/p TRUS Random and MR Targeted biopsy. Prostate cancer (C61), 2019 NCCN Risk Group: High Risk Group RADIATION SUMMARY: Pelvis and prostate external radiation: 03/23/22 - 04/24/22 Prostate Brachytherapy: 05/21/22 DELIVERED DOSE: Area: PELVIS: 45Gy in 25 fractions, 2 ARCS, VMAT, 10MV WITH DAILY CBCT PROSTATE: 100Gy, Pd-103, 56 sources, 94.53 mCi INTERVAL HISTORY: Patient remains active. Has some fatigue. Has had some breast pain, underwent evaluation with mammograms showing mild gynecomastia only. States urinary function has improved but still with occasional dysuria. No hematuria. PSA HISTORY: PSA (ng/mL) Date Value 07/03/2022 0.07 PSA. (no units) Date Value 02/16/2023 0.24 ALLERGIES No Known Allergies indomethacin (INDOCIN) 50 mg capsule take 1 capsule by mouth twice a day with food or milk for 14 days loperamide (IMODIUM) 2 mg cap(s) Take by mouth. ibuprofen (MOTRIN) 800 mg tablet Take 1 tablet by mouth every 8 hours as needed for pain. diphenoxylate-atropine (LOMOTIL) 2.5-0.025 mg per tablet take 1 tablet by mouth twice a day if needed for diarrhea alfuzosin SR (UROXATRAL) 10 mg 24 hr tablet Take 10 mg by mouth once daily. lisinopril (ZESTRIL, PRINIVIL) 10 mg tablet Take 10 mg by mouth. atorvastatin (LIPITOR) 10 mg tablet Take 10 mg by mouth once daily. metoprolol tartrate, short acting, (LOPRESSOR) 50 mg tablet Take 50 mg by mouth. doxycycline hyclate (VIBRAMYCIN) 100 mg capsule Take 100 mg by mouth twice daily. FLUTICASONE PROPIONATE NASAL Use in the nose. REVIEW OF SYSTEMS: D/N = 4-6/2-3 Hematuria: none Dysuria: none Incontinence: none Urgency: moderate Catheter use: none - Total AUA Score: 18 Bowel movement frequency: 1-3/day Bowel movement quality: variable Blood per rectum: No Androgen deprivation: Currently being treated with Lupron. PHYSICAL EXAM: BP 117/75 Pulse 64 Temp (!) 35.7 C (96.3 F) Resp 18 Wt 110.9 kg (244 lb 9.6 oz) SpO2 97% BMI 41.02 kg/m KPS: 100 General Appearance: Alert and oriented. No acute distress. Rectal exam is deferred. ASSESSMENT/PLAN: Prostate adenocarcinoma, initial PSA 2.0, biopsy Judd score 4 + 4 = 8 (grade group 4), clinical stage T2c, N0, M0, stage IIC [T1-T2, N0, M0, PSA <20, GG 4] (AJCC 8th ed.), s/p TRUS Random and MR Targeted biopsy. Prostate cancer (C61), 2019 NCCN Risk Group: High Risk Group 1 prostate cancer. Overall has had a good PSA response. Has had some persistence urinary issues though improved. Continues close follow-up with Dr. Lambert. 2. Diarrhea much improved. 3. Gynecomastia likely related to ADT. Signed by: Jhony Lux MD documented in this encounter [facility] 05-05-2023 Evaluation note Encounter Date Diagnosis Assessment Notes Apr, Chronic diarrhea (ICD-10 - K52.9) [facility] Other 04-10-2023 Hospital Discharge instructions Patient Education 03/08/2023 16:27:35 Prostate Cancer Prostate Cancer The prostate is a walnut-sized gland that is involved in the production of semen. It is located below a man's bladder, in front of the rectum. Prostate cancer is the abnormal growth of cells in the prostate gland. What are the causes? The exact cause of this condition is not known. What increases the risk? This condition is more likely to develop in men who: Are older than age 65. Are -[place]. Are obese. Have a family history of prostate cancer. Have a family history of breast cancer. What are the signs or symptoms? Symptoms of this condition include: A need to urinate often. Weak or interrupted flow of urine. Trouble starting or stopping urination. Inability to urinate. Pain or burning during urination. Painful ejaculation. Blood in urine or semen. Persistent pain or discomfort in the lower back, lower abdomen, hips, or upper thighs. Trouble getting an erection. Trouble emptying the bladder all the way. How is this diagnosed? This condition can be diagnosed with: A digital rectal exam. For this exam, a health care provider inserts a gloved finger into the rectum to feel the prostate gland. A blood test called a prostate-specific antigen (PSA) test. An imaging test called transrectal ultrasonography. A procedure in which a sample of tissue is taken from the prostate and examined under a microscope (prostate biopsy). Once the condition is diagnosed, tests will be done to determine how far the cancer has spread. This is called staging the cancer. Staging may involve imaging tests, such as: A bone scan. A CT scan. A PET scan. An MRI. The stages of prostate cancer are as follows: Stage I. At this stage, the cancer is found in the prostate only. The cancer is not visible on imaging tests and it is usually found by accident, such as during a prostate surgery. Stage II. At this stage, the cancer is more advanced than it is in stage I, but the cancer has not spread outside the prostate. Stage III. At this stage, the cancer has spread beyond the outer layer of the prostate to nearby tissues. The cancer may be found in the seminal vesicles, which are near the bladder and the prostate. Stage IV. At this stage, the cancer has spread other parts of the body, such as the lymph nodes, bones, bladder, rectum, liver, or lungs. How is this treated? Treatment for this condition depends on several factors, including the stage of the cancer, your age, personal preferences, and your overall health. Talk with your health care provider about treatment options that are recommended for you. Common treatments include: Observation for early stage prostate cancer (active surveillance). This involves having exams, blood tests, and in some cases, more biopsies. For some men, this is the only treatment needed. Surgery. Types of surgeries include: ?Open surgery. In this surgery, a larger incision is made to remove the prostate. ?A laparoscopic prostatectomy. This is a surgery to remove the prostate and lymph nodes through several, small incisions. It is often referred to as a minimally invasive surgery. ?A robotic prostatectomy. This is a surgery to remove the prostate and lymph nodes with the help ofa robotic arm that is controlled by a computer. ?Orchiectomy. This is a surgery to remove the testicles. ?Cryosurgery. This is a surgery to freeze and destroy cancer cells. Radiation treatment. Types of radiation treatment include: ?External beam radiation. This type aims beams of radiation from outside the body at the prostate to destroy cancerous cells. ?Brachytherapy. This type uses radioactive needles, seeds, wires, or tubes that are implanted into the prostate gland. Like external beam radiation, brachytherapy destroys cancerous cells. An advantage is that this type of radiation limits the damage to surrounding tissue and has fewer side effects. High-intensity, focused ultrasonography. This treatment destroys cancer cells by delivering high-energy ultrasound waves to the cancerous cells. Chemotherapy medicines. This treatment kills cancer cells or stops them from multiplying. Hormone treatment. This treatment involves taking medicines that act on one of the male hormones (testosterone): ?By stopping your body from producing testosterone. ?By blocking testosterone from reaching cancer cells. Follow these instructions at home: Take tyug-jjm-iigyqak and prescription medicines only as told by your health care provider. Maintain a healthy diet. Get plenty of sleep. Consider joining a support group for men who have prostate cancer. Meeting with a support group mayhelp you learn to cope with the stress of having cancer. Keep all follow-up visits as told by your health care provider. This is important. If you have to go to the hospital, notify your cancer specialist (oncologist). Treatment for prostate cancer may affect sexual function. Continue to have intimate moments with your partner. This may include touching, holding, hugging, and caressing. Contact a health care provider if: You have trouble urinating. You have blood in your urine. You have pain in your hips, back, or chest. Get help right away if: You have weakness or numbness in your legs. You cannot control urination or your bowel movements (incontinence). You have trouble breathing. You have sudden chest pain. You have chills or a fever. Summary The prostate is a walnut-sized gland that is involved in the production of semen. It is located below a man's bladder, in front of the rectum. Prostate cancer is the abnormal growth of cells in the prostate gland. Treatment for this condition depends on several factors, including the stage of the cancer, your age, personal preferences, and your overall health. Talk with your health care provider about treatment options that are recommended for you. Consider joining a support group for men who have prostate cancer. Meeting with a support group mayhelp you learn to cope with the stress of having cancer. This information is not intended to replace advice given to you by your health care provider. Make sure you discuss any questions you have with your health care provider. Document Released: 11/15/2006 Document Revised: 10/28/2018 Document Reviewed: 07/26/2017 [employer] Patient Education 2020 [email or web address]. Follow Up Care 03/08/2023 10:43:59 With:PETRA OVIEDO, Leila Simpson, URL Address: [facility] [address] , [place] [address]- When: Unknown [facility] 02-23-2023 NoteEducation (NUTRSA) MEREDITH VILLATORO ([id number]) 1960 M Date Time Provider Department 01/21/23 2:15 PM ALBINA RUSSELL Reason for Visit: Nutrition Telephone [2013] Visit Diagnosis:Prostate cancer (HCC) [C61] Order(s):CONSULT TO ONCOLOGY NUTRITION [[id number]] Order #: [id number]: 1 During your visit today, we recorded the following information about you: Allergies As of Date: 01/21/2023 (No Known Allergies) Date Reviewed: 01/21/2023 Reviewed by: Albina Russell RD - Fully Assessed Prescriptions as of 01/21/2023 - indomethacin (INDOCIN) 50 mg capsule take 1 capsule by mouth twice a day with food or milk for 14 days - loperamide (IMODIUM) 2 mg cap(s) Take by mouth. - ibuprofen (MOTRIN) 800 mg tablet Take 1 tablet by mouth every 8 hours as needed for pain. - diphenoxylate-atropine (LOMOTIL) 2.5-0.025 mg per tablet take 1 tablet by mouth twice a day if needed for diarrhea - alfuzosin SR (UROXATRAL) 10 mg 24 hr tablet Take 10 mg by mouth once daily. - lisinopril (ZESTRIL, PRINIVIL) 10 mg tablet Take 10 mg by mouth. - atorvastatin (LIPITOR) 10 mg tablet Take 10 mg by mouth once daily. - metoprolol tartrate, short acting, (LOPRESSOR) 50 mg tablet Take 50 mg by mouth. - doxycycline hyclate (VIBRAMYCIN) 100 mg capsule Take 100 mg by mouth twice daily. - FLUTICASONE PROPIONATE NASAL Use in the nose. Encounter Status:Closed by ALBINA RUSSELL on 01/21/23[facility]02-23-2023 NoteHNO ID: [id number] Author: Albina Russell RD Service: ? Author Type: Registered Dietitian Type: Progress Notes Filed: 01/21/2023 2:39 PM Note Text: Oncology Nutrition Therapy Initial Assessment This visit was performed as a telehealth visit due to the COVID-19 pandemic as an effort to protect patients and minimize exposure. Consent from patient received to conduct visit virtually/telehealth. It required patient-provider interaction for the medical decision making as documented below. RECOMMENDED MALNUTRITION DIAGNOSIS: NO MALNUTRITION IDENTIFIED Nutrition Diagnosis: Behavioral-Environmental: Food and nutrition related knowledge deficit, related to, lack of prior exposure to information , as evidenced by verbalizes inaccurate information and verbalizes incomplete information Nutrition Intervention: -briefly reviewed importance of healthy, balanced diet -lean protein, whole grains, beans/legumes, vegetables, fruit, low-fat dairy -reviewed healthier snack options -suggested decreasing portion sizes of Pizza and Subs and increase fruit/vegetable intakes -provider contact information provided for further questions/concerns Nutrition Monitoring AND Evaluation: -PO Intake -Wt status -BM's -Biochemical Markers -Plan of care Patient's symptoms are: Weight Concerns: weight gain Pt presents for nutrition counseling for prostate cancer. Pt is s/p RT and lupron. Pt states he recently quit smoking and I eat all the time now. Pt states he is not significantly worried about his weight gain, but has noticed it. He denies grazing and states typical day's intake is as follows: B- cookies L- [place] [employer] Sub D- usually similar to lunch Snack- chips Pt states he typically consumes restaurant foods and convenience foods. Briefly reviewed with pt interventions above and problem solved ways to meet recommendations. Pt preferred written material be sent to him rather than verbal instructions. Thank you for allowing me to participate in the care of this pt. Readiness to Learn: Cognitive ability: Alert and oriented Motivation to learn: Interested Family support: Unable to assess - Family not present Instruction provided to: Patient Patient learns best by: Written Instruction - Hand-outs Factors affecting learning: None Physical limitations affecting learning: None Educational materials provided: Healthy Meals, Healthy Snacks- mailed to patient. Anthropometrics: Height: Last 1 Encounter Ht Readings: Date: Ht: 03/11/2022 164.5 cm (5' 4.75 ) Current weight: Last 1 Encounter Wt Readings: Date: Wt: 01/05/2023 110.7 kg (244 lb) Estimated body mass index is 40.92 kg/m? as calculated from the following: Height as of 03/11/22: 164.5 cm (5' 4.75 ). Weight as of 01/05/23: 110.7 kg (244 lb). Resting Metabolic Rate: 1828 Weight Change: Gain of 5.8kg x 6 months [place] Body Weight: 60.9kg Estimated kilocalorie needs: 1522 kilocalories determined by 25 kcal/kg Estimated protein needs: 61-73 grams determined by 1.0-1.2 g/kg [place] weight Estimated fluid needs: ~1500 milliliters based on 1 mL per kcal (unless otherwise noted) Nutrition Focused Physical Exam: Unable to perform exam due to patient unavailable, will re-attempt during reassessment. Potential Signs of Inflammation: no identifiable sources Allergies: Patient has no known allergies. Medications: Current Outpatient Medications Medication Sig Dispense Refill indomethacin (INDOCIN) 50 mg capsule take 1 capsule by mouth twice a day with food or milk for 14 days loperamide (IMODIUM) 2 mg cap(s) Take by mouth. ibuprofen (MOTRIN) 800 mg tablet Take 1 tablet by mouth every 8 hours as needed for pain. 60 tablet 2 diphenoxylate-atropine (LOMOTIL) 2.5-0.025 mg per tablet take 1 tablet by mouth twice a day if needed for diarrhea alfuzosin SR (UROXATRAL) 10 mg 24 hr tablet Take 10 mg by mouth once daily. lisinopril (ZESTRIL, PRINIVIL) 10 mg tablet Take 10 mg by mouth. atorvastatin (LIPITOR) 10 mg tablet Take 10 mg by mouth once daily. metoprolol tartrate, short acting, (LOPRESSOR) 50 mg tablet Take 50 mg by mouth. doxycycline hyclate (VIBRAMYCIN) 100 mg capsule Take 100 mg by mouth twice daily. FLUTICASONE PROPIONATE NASAL Use in the nose. No current facility-administered medications for this visit. Need for Follow up: prn per pt request Referred by: Mary Iraheta APRN.[employer] MNT Billing Type: Initial Assess/15 min 1 unit Time Spent with Patient: 15 minutes Signed by: Albina Russell MS, RDN, [facility]02-23-2023 History of Present illness Narrative* Albina Russell RD - 01/21/2023 8:39 AM EST Oncology Nutrition Therapy Initial Assessment This visit was performed as a telehealth visit due to the COVID-19 pandemic as an effort to protectpatients and minimize exposure. Consent from patient received to conduct visit virtually/telehealth. It required patient-provider interaction for the medical decision making as documented below. RECOMMENDED MALNUTRITION DIAGNOSIS: NO MALNUTRITION IDENTIFIED Nutrition Diagnosis: Behavioral-Environmental: Food and nutrition related knowledge deficit, related to, lack of prior exposure to information , as evidenced by verbalizes inaccurate information and verbalizes incomplete information Nutrition Intervention: -briefly reviewed importance of healthy, balanced diet -lean protein, whole grains, beans/legumes, vegetables, fruit, low-fat dairy -reviewed healthier snack options -suggested decreasing portion sizes of Pizza and Subs and increase fruit/vegetable intakes -provider contact information provided for further questions/concerns Nutrition Monitoring & Evaluation: -PO Intake -Wt status -BM's -Biochemical Markers -Plan of care Patient's symptoms are: Weight Concerns: weight gain Pt presents for nutrition counseling for prostate cancer. Pt is s/p RT and lupron. Pt states he recently quit smoking and I eat all the time now. Pt states he is not significantly worried about hisweight gain, but has noticed it. He denies grazing and states typical day's intake is as follows: B- cookies L- [place] [employer] Sub D- usually similar to lunch Snack- chips Pt states he typically consumes restaurant foods and convenience foods. Briefly reviewed with pt interventions above and problem solved ways to meet recommendations. Pt preferred written material be sent to him rather than verbal instructions. Thank you for allowing me to participate in the care of this pt. Readiness to Learn: Cognitive ability: Alert and oriented Motivation to learn: Interested Family support: Unable to assess - Family not present Instruction provided to: Patient Patient learns best by: Written Instruction - Hand-outs Factors affecting learning: None Physical limitations affecting learning: None Educational materials provided: Healthy Meals, Healthy Snacks- mailed to patient. Anthropometrics: Height: Last 1 Encounter Ht Readings: Date: Ht: 03/11/2022 164.5 cm (5' 4.75 ) Current weight: Last 1 Encounter Wt Readings: Date: Wt: 01/05/2023 110.7 kg (244 lb) Estimated body mass index is 40.92 kg/m as calculated from the following: Height as of 03/11/22: 164.5 cm (5' 4.75 ). Weight as of 01/05/23: 110.7 kg (244 lb). Resting Metabolic Rate: 1828 Weight Change: Gain of 5.8kg x 6 months [place] Body Weight: 60.9kg Estimated kilocalorie needs: 1522 kilocalories determined by 25 kcal/kg Estimated protein needs: 61-73 grams determined by 1.0-1.2 g/kg [place] weight Estimated fluid needs: ~1500 milliliters based on 1 mL per kcal (unless otherwise noted) Nutrition Focused Physical Exam: Unable to perform exam due to patient unavailable, will re-attemptduring reassessment. Potential Signs of Inflammation: no identifiable sources Allergies: Patient has no known allergies. Medications: Current Outpatient Medications Medication Sig Dispense Refill indomethacin (INDOCIN) 50 mg capsule take 1 capsule by mouth twice a day with food or milk for 14 days loperamide (IMODIUM) 2 mg cap(s) Take by mouth. ibuprofen (MOTRIN) 800 mg tablet Take 1 tablet by mouth every 8 hours as needed for pain. 60 tablet2 diphenoxylate-atropine (LOMOTIL) 2.5-0.025 mg per tablet take 1 tablet by mouth twice a day if needed for diarrhea alfuzosin SR (UROXATRAL) 10 mg 24 hr tablet Take 10 mg by mouth once daily. lisinopril (ZESTRIL, PRINIVIL) 10 mg tablet Take 10 mg by mouth. atorvastatin (LIPITOR) 10 mg tablet Take 10 mg by mouth once daily. metoprolol tartrate, short acting, (LOPRESSOR) 50 mg tablet Take 50 mg by mouth. doxycycline hyclate (VIBRAMYCIN) 100 mg capsule Take 100 mg by mouth twice daily. FLUTICASONE PROPIONATE NASAL Use in the nose. No current facility-administered medications for this visit. Need for Follow up: prn per pt request Referred by: Mary Iraheta APRN.SARAH MNT Billing Type: Initial Assess/15 min 1 unit Time Spent with Patient: 15 minutes Signed by: Albina Russell MS, RDN, LD documented in this encounterTri[facility] Discharge instructions Patient Education 09/04/2022 12:16:55 Benign Prostatic Hyperplasia Benign Prostatic Hyperplasia Benign prostatic hyperplasia (BPH) is an enlarged prostate gland that is caused by the normal agingprocess and not by cancer. The prostate is a walnut-sized gland that is involved in the production of semen. It is located in front of the rectum and below the bladder. The bladder stores urine and the urethra is the tube that carries the urine out of the body. The prostate may get bigger as a man gets older. An enlarged prostate can press on the urethra. This can make it harder to pass urine. The build-up of urine in the bladder can cause infection. Back pressure and infection may progress to bladder damage and kidney (renal) failure. What are the causes? This condition is part of a normal aging process. However, not all men develop problems from this condition. If the prostate enlarges away from the urethra, urine flow will not be blocked. If it enlarges toward the urethra and compresses it, there will be problems passing urine. What increases the risk? This condition is more likely to develop in men over the age of 50 years. What are the signs or symptoms? Symptoms of this condition include: Getting up often during the night to urinate. Needing to urinate frequently during the day. Difficulty starting urine flow. Decrease in size and strength of your urine stream. Leaking (dribbling) after urinating. Inability to pass urine. This needs immediate treatment. Inability to completely empty your bladder. Pain when you pass urine. This is more common if there is also an infection. Urinary tract infection (UTI). How is this diagnosed? This condition is diagnosed based on your medical history, a physical exam, and your symptoms. Tests will also be done, such as: A post-void bladder scan. This measures any amount of urine that may remain in your bladder after you finish urinating. A digital rectal exam. In a rectal exam, your health care provider checks your prostate by putting a lubricated, gloved finger into your rectum to feel the back of your prostate gland. This exam detects the size of your gland and any abnormal lumps or growths. An exam of your urine (urinalysis). A prostate specific antigen (PSA) screening. This is a blood test used to screen for prostate cancer. An ultrasound. This test uses sound waves to electronically produce a picture of your prostate gland. Your health care provider may refer you to a specialist in kidney and prostate diseases (urologist). How is this treated? Once symptoms begin, your health care provider will monitor your condition (active surveillance or watchful waiting). Treatment for this condition will depend on the severity of your condition. Treatment may include: Observation and yearly exams. This may be the only treatment needed if your condition and symptoms are mild. Medicines to relieve your symptoms, including: ?Medicines to shrink the prostate. ?Medicines to relax the muscle of the prostate. Surgery in severe cases. Surgery may include: ?Prostatectomy. In this procedure, the prostate tissue is removed completely through an open incision or with a laparoscope or robotics. ?Transurethral resection of the prostate (TURP). In this procedure, a tool is inserted through the opening at the tip of the penis (urethra). It is used to cut away tissue of the inner core of the prostate. The pieces are removed through the same opening of the penis. This removes the blockage. ?Transurethral incision (TUIP). In this procedure, small cuts are made in the prostate. This lessens the prostate's pressure on the urethra. ?Transurethral microwave thermotherapy (TUMT). This procedure uses microwaves to create heat. The heat destroys and removes a small amount of prostate tissue. ?Transurethral needle ablation (TUNA). This procedure uses radio frequencies to destroy and remove a small amount of prostate tissue. ?Interstitial laser coagulation (ILC). This procedure uses a laser to destroy and remove a small amount of prostate tissue. ?Transurethral electrovaporization (TUVP). This procedure uses electrodes to destroy and remove a small amount of prostate tissue. ?Prostatic urethral lift. This procedure inserts an implant to push the lobes of the prostate away from the urethra. Follow these instructions at home: Take [id number] and prescription medicines only as told by your health care provider. Monitor your symptoms for any changes. Contact your health care provider with any changes. Avoid drinking large amounts of liquid before going to bed or out in public. Avoid or reduce how much caffeine or alcohol you drink. Give yourself time when you urinate. Keep all follow-up visits as told by your health care provider. This is important. Contact a health care provider if: You have unexplained back pain. Your symptoms do not get better with treatment. You develop side effects from the medicine you are taking. Your urine becomes very dark or has a bad smell. Your lower abdomen becomes distended and you have trouble passing your urine. Get help right away if: You have a fever or chills. You suddenly cannot urinate. You feel lightheaded, or very dizzy, or you faint. There are large amounts of blood or clots in the urine. Your urinary problems become hard to manage. You develop moderate to severe low back or flank pain. The flank is the side of your body between the ribs and the hip. These symptoms may represent a serious problem that is an emergency. Do not wait to see if the symptoms will go away. Get medical help right away. Call your local emergency services (911 in the [place] Do not drive yourself to the hospital. Summary Benign prostatic hyperplasia (BPH) is an enlarged prostate that is caused by the normal aging process and not by cancer. An enlarged prostate can press on the urethra. This can make it hard to pass urine. This condition is part of a normal aging process and is more likely to develop in men over the age of 50 years. Get help right away if you suddenly cannot urinate. This information is not intended to replace advice given to you by your health care provider. Make sure you discuss any questions you have with your health care provider. Document Released: 11/15/2006 Document Revised: 10/10/2019 Document Reviewed: 12/20/2017 [employer] Patient Education 2020 [email or web address]. Follow Up Care 02/27/2022 12:25:22 With:PETRA OVIEDO, Leila Simpson, URL Address: [address] [place] [id number]- When: Unknown [facility] 08-09-2022 Nurse Note* Michelle Dalal RN - 07/07/2022 2:34 PM EDT AUA 18. Pt does not have med list. Michelle Dalal RN documented in this encounterTri[facility]08-[facility] History of Present illness Narrative* Jhony Lux MD - 07/07/2022 2:33 PM EDT Radiation Oncology - Follow Up Note PATIENT NAME: Meredith Villatoro PATIENT DIAGNOSIS: Prostate adenocarcinoma, initial PSA 2.0, biopsy [place] score 4 + 4 = 8 (grade group 4), clinical stage T2c, N0, M0, stage IIC [T1-T2, N0, M0, PSA <20, GG 4] (AJCC 8th ed.), s/p TRUS Random and MR Targeted biopsy. Prostate cancer (C61), 2019 NCCN Risk Group: High Risk Group RADIATION SUMMARY: Pelvis and prostate external radiation: 03/23/22 - 04/24/22 Prostate Brachytherapy: 05/21/22 DELIVERED DOSE: Area: PELVIS: 45Gy in 25 fractions, 2 ARCS, VMAT, 10MV WITH DAILY CBCT PROSTATE: 100Gy, Pd-103, 56 sources, 94.53 mCi INTERVAL HISTORY: Overall feels he is doing better. Still with some intermittent dysuria without hematuria. No fever. Denies obstructive symptoms. No perianal or perineal pain. PSA HISTORY: PSA (ng/mL) Date Value 07/03/2022 0.07 ALLERGIES No Known Allergies ibuprofen (MOTRIN) 800 mg tablet Take 1 tablet by mouth every 8 hours as needed for pain. diphenoxylate-atropine (LOMOTIL) 2.5-0.025 mg per tablet take 1 tablet by mouth twice a day if needed for diarrhea alfuzosin SR (UROXATRAL) 10 mg 24 hr tablet Take 10 mg by mouth once daily. (Patient not taking: Reported on 06/04/2022 ) lisinopril (ZESTRIL, PRINIVIL) 10 mg tablet Take 10 mg by mouth. (Patient not taking: Reported on 06/04/2022 ) atorvastatin (LIPITOR) 10 mg tablet Take 10 mg by mouth once daily. metoprolol tartrate, short acting, (LOPRESSOR) 50 mg tablet Take 50 mg by mouth. doxycycline hyclate (VIBRAMYCIN) 100 mg capsule Take 100 mg by mouth twice daily. FLUTICASONE PROPIONATE NASAL Use in the nose. (Patient not taking: Reported on 06/04/2022 ) REVIEW OF SYSTEMS: D/N = 4-6/2-3 Hematuria: none Dysuria: none Incontinence: none Urgency: moderate Catheter use: none - Total AUA Score: 18 Bowel movement frequency: 1-3/day Bowel movement quality: variable Blood per rectum: No Androgen deprivation: Currently being treated with Lupron. PHYSICAL EXAM: BP 117/76 Pulse 79 Temp 36.1 C (96.9 F) Resp 16 Wt 104.8 kg (231 lb) SpO2 97% BMI 38.74kg/m KPS: 100 General Appearance: Alert and oriented. No acute distress. Rectal exam is deferred. ASSESSMENT/PLAN: Prostate adenocarcinoma, initial PSA 2.0, biopsy [place] score 4 + 4 = 8 (grade group 4), clinical stage T2c, N0, M0, stage IIC [T1-T2, N0, M0, PSA <20, GG 4] (AJCC 8th ed.), s/p TRUS Random and MR Targeted biopsy. Prostate cancer (C61), 2019 NCCN Risk Group: High Risk Group Patient overall doing well. Post-implant CT shows excellent prostate coverage and appropriate normal tissue sparing. No change of modification in either the treatment or follow-up plan based on this.Recommend repeat PSA in 6 months. Patient has continued close follow-up with his urologist as well. Signed by: Jhony Lux MD documented in this encounterTrihealth [facility]07-21-2022 History of Present illness Narrative* Jhony Lux MD - 06/18/2022 8:30 AM EDT Radiation Oncology - Follow Up Note PATIENT NAME: Meredith Villatoro PATIENT DIAGNOSIS: Prostate adenocarcinoma, initial PSA 2.0, biopsy [place] score 4 + 4 = 8 (grade group 4), clinical stage T2c, N0, M0, stage IIC [T1-T2, N0, M0, PSA <20, GG 4] (AJCC 8th ed.), s/p TRUS Random and MR Targeted biopsy. Prostate cancer (C61), 2019 NCCN Risk Group: High Risk Group RADIATION SUMMARY: Pelvis and prostate external radiation: 03/23/22 - 04/24/22 Prostate Brachytherapy: 05/21/22 DELIVERED DOSE: Area: PELVIS: 45Gy in 25 fractions, 2 ARCS, VMAT, 10MV WITH DAILY CBCT PROSTATE: 100Gy, Pd-103, 56 sources, 94.53 mCi INTERVAL HISTORY: Patient here today for post implant CT. Catheter removed June 04. He has had some persistent dysuria mostly in the penis region, somewhat improved. Not following with voiding. No hematuria. No fever. Appetite good. PSA HISTORY: No results found for: PSA, PSAPER ALLERGIES No Known Allergies ibuprofen (MOTRIN) 800 mg tablet Take 1 tablet by mouth every 8 hours as needed for pain. diphenoxylate-atropine (LOMOTIL) 2.5-0.025 mg per tablet take 1 tablet by mouth twice a day if needed for diarrhea alfuzosin SR (UROXATRAL) 10 mg 24 hr tablet Take 10 mg by mouth once daily. lisinopril (ZESTRIL, PRINIVIL) 10 mg tablet Take 10 mg by mouth. atorvastatin (LIPITOR) 10 mg tablet Take 10 mg by mouth once daily. metoprolol tartrate, short acting, (LOPRESSOR) 50 mg tablet Take 50 mg by mouth. doxycycline hyclate (VIBRAMYCIN) 100 mg capsule Take 100 mg by mouth twice daily. FLUTICASONE PROPIONATE NASAL Use in the nose. REVIEW OF SYSTEMS: D/N = 4-6/2-3 Hematuria: none Dysuria: none Incontinence: none Urgency: moderate Catheter use: none - Total AUA Score: 13 Bowel movement frequency: 1-3/day Bowel movement quality: variable Blood per rectum: No Androgen deprivation: Currently being treated with Lupron. PHYSICAL EXAM: BP 103/70 Pulse (!) 51 Temp 36.1 C (96.9 F) Resp 16 Wt 105.5 kg (232 lb 9.6 oz) SpO2 98% BMI 39.01 kg/m KPS: 100 General Appearance: Alert and oriented. No acute distress. Rectal exam is deferred. ASSESSMENT/PLAN: Prostate adenocarcinoma, initial PSA 2.0, biopsy [place] score 4 + 4 = 8 (grade group 4), clinical stage T2c, N0, M0, stage IIC [T1-T2, N0, M0, PSA <20, GG 4] (AJCC 8th ed.), s/p TRUS Random and MR Targeted biopsy. Prostate cancer (C61), 2019 NCCN Risk Group: High Risk Group Patient likely having post implant related urethral irritation. If continues to see Dr. Lambert. Continue increased hydration. Follow-up in 1 to 2 weeks. Signed by: Jhony Lux MD documented in this encounterTrihealth [facility]07-21-2022 Nurse Note* Mansi Ocampo LPN - 06/18/2022 8:30 AM EDT AUA= 13 documented in this encounterTrihealth [facility]07-21-2022 History of Present illness Narrative* Jhony Lux MD - 06/18/2022 12:00 AM EDT Patient: Meredith Villatoro Date:06/18/2022 [facility] Department of Radiation Oncology [facility] RADIATION ONCOLOGY POST SEED IMPLANT SIMULATION NOTE DATE OF SIMULATION: 06/18/2022 MACHINE: CT Simulator AREA:Prostate PATIENT POSITION: Supine. CONTRAST: None PROTOCOL: None CONCURRENT THERAPY: None FIXATION DEVICE: None PROCEDURE: Patient was simulated on the CT scanner and CT images of the patients pelvis obtained. ASSESSMENT/PLAN: Patient tolerated simulation procedure well. CT images were obtained on the CT simulator for the prostate post brachy therapy seed implant planning. Post planning for the permanent seed prostate brachy procedure will commence following simulation. documented in this encounterTrihealth [facility]07-11-2022 History of Present illness Narrative* Jhony Lux MD - 06/08/2022 9:00 AM EDT Radiation Oncology - Follow Up Note PATIENT NAME: Meredith Villatoro PATIENT DIAGNOSIS: Prostate adenocarcinoma, initial PSA 2.0, biopsy [place] score 4 + 4 = 8 (grade group 4), clinical stage T2c, N0, M0, stage IIC [T1-T2, N0, M0, PSA <20, GG 4] (AJCC 8th ed.), s/p TRUS Random and MR Targeted biopsy. Prostate cancer (C61), 2019 NCCN Risk Group: High Risk Group RADIATION SUMMARY: Pelvis and prostate external radiation: 03/23/22 - 04/24/22 Prostate Brachytherapy: 05/21/22 DELIVERED DOSE: Area: PELVIS: 45Gy in 25 fractions, 2 ARCS, VMAT, 10MV WITH DAILY CBCT PROSTATE: 100Gy, Pd-103, 56 sources, 94.53 mCi INTERVAL HISTORY: The patient presents for routine follow-up 2 weeks after recent prostate brachytherapy. Doing well. Having some increased urinary urgency and frequency which is improving. Mild obstructive complaints that are also improving. Denies hematuria or dysuria. No fever. No areas of pain. Some mild increased stool frequency. PSA HISTORY: No results found for: PSA, PSAPER ALLERGIES No Known Allergies ibuprofen (MOTRIN) 800 mg tablet Take 1 tablet by mouth every 8 hours as needed for pain. diphenoxylate-atropine (LOMOTIL) 2.5-0.025 mg per tablet take 1 tablet by mouth twice a day if needed for diarrhea atorvastatin (LIPITOR) 10 mg tablet Take 10 mg by mouth once daily. metoprolol tartrate, short acting, (LOPRESSOR) 50 mg tablet Take 50 mg by mouth. alfuzosin SR (UROXATRAL) 10 mg 24 hr tablet Take 10 mg by mouth once daily. lisinopril (ZESTRIL, PRINIVIL) 10 mg tablet Take 10 mg by mouth. doxycycline hyclate (VIBRAMYCIN) 100 mg capsule Take 100 mg by mouth twice daily. FLUTICASONE PROPIONATE NASAL Use in the nose. REVIEW OF SYSTEMS: D/N = 4-6/2-3 Hematuria: none Dysuria: none Incontinence: none Urgency: moderate Catheter use: none - Total AUA Score: 21 Bowel movement frequency: 1-3/day Bowel movement quality: variable Blood per rectum: No Androgen deprivation: Currently being treated with Lupron. PHYSICAL EXAM: BP 128/76 Pulse (!) 59 Temp 36.3 C (97.4 F) Resp 18 Wt 105.3 kg (232 lb 3.2 oz) SpO2 97% BMI 38.94 kg/m KPS: 100 General Appearance: Alert and oriented. No acute distress. Rectal exam is deferred. Perineal area without ecchymosis tenderness or seroma. ASSESSMENT/PLAN: Prostate adenocarcinoma, initial PSA 2.0, biopsy Judd score 4 + 4 = 8 (grade group 4), clinical stage T2c, N0, M0, stage IIC [T1-T2, N0, M0, PSA <20, GG 4] (AJCC 8th ed.), s/p TRUS Random and MR Targeted biopsy. Prostate cancer (C61), 2019 NCCN Risk Group: High Risk Group Patient overall doing well with improving post-implant urinary issues. No other new problems. Plan to have patient back in 2 weeks for post-implant CT, return for follow-up exam in 4 weeks. He continues close follow-up with Dr. Lambert as well. Signed by: Jhony Lux MD cc: Adrian Flores [id number] [place] [address] * Albina Byrne RN - 06/04/2022 1:40 PM EDT AUA=21 Albina Byrne RN documented in this encounterTri[facility] History of Present illness Narrative* Jhony Lux MD - 05/25/2022 2:34 PM EDT Date: 05/21/22 Facility: [facility] Procedure: prostate transperineal brachytherapy implant Sources: [id number] Anesthesia:general Urologist: Dr. Lambert This is an operative report supplement to Dr. Lambert note. Prior the the implant patient underwent planning using transrectal ultrasound based. The planning including outline of prostate and planningmargin around prostate to deliver 100 Gy using Pd 103 sources. It was determined 56 sources, for a total of 94.53 mCi was necessary using 19 needles. Prior to the procedure on the morning of the implant, patient identified by name and hospital ID bracelet. After anesthesia administered patient placed in dorsal-lithotomy position and ultrasound study done showing good correlation with planning images and excellent visualization of the gland. Implant was then carried out using transperineal technique with active ultrasound and fluoroscopic guidance. At the end of the case the treatment planning ultrasound computer showed captured seed located in expected position with appropriate target coverage, no extra seeds implanted. X-ray image showed good seed distribution and all 56 sources. Intraoperative dosimetry reviewed showing D90 of 99.45 %,and excelent coverage of gland by the 100% IDL. After the cystoscopy physics performed survey with meter of patient, cystoscopy fluid, floor, trash, work table and general area. No excess activity seen, results documented. Michelle Lux MD [facility] documented in this encounterTri[facility]06-14-[facility]22 History of Present illness Narrative* Jhony Lux MD - 05/12/2022 12:00 AM EDT MEREDITH VILLATORO [id number] 05/12/2022 [facility] Department of Radiation Oncology [facility] RADIATION ONCOLOGY BRACHYTHERAPY TREATMENT PLANNING NOTE For reasons stated in the consult note, MEREDITH VILLATORO is a candidate for definitive radiation. Based on review and interpretation of the relevant diagnostic studies together with the exam findings, MEREDITH VILLATORO was simulated on 05/05/2022 and the target volume to be treated as well as the criticalnormal structure(s) were delineated as indicated in the simulation note. I personally reviewed the TRUS and was able to create contours of the volume to be treated and the normal critical structures to be spared. In this particular case, the rectum was deemed to be a critical structure. Special consideration of this was given in light of the potential for increased toxicity if the rectum receives too much radiation dose. After participating in the treatment planning process with medical physics, I approved the best plan to deliver my prescribed course of radiation. The target tissue was planned using pre-planning to allow for the best isodose distribution to deliver a minimum dose of 100 Gy to the prostate. The dose to normal tissue (rectum) and target tissue was confirmed upon review of the calculated dose superimposed on the TRUS images containing the target tissue and the rectum. A completed summary of this plan dated 05/12/2022 incorporated herein by reference includes dose, energy, isodose distribution and DVH. Electronically Signed Johan Lux M.D. / 24:21 PM documented in this encounterTrihealth [facility]06-07-[facility]22 History of Present illness Narrative* Jhony Lux MD - 05/05/2022 9:52 AM EDT UNIVERSAL PROTOCOL / SAFETY CHECKLIST Procedure to be Performed: volume study for brachytherapy planning Sign In: A Moment of CARE was completed. Personnel directly involved with the procedure wore the appropriate PPE (Personal Protective Equipment). Patient/Surrogate Stated/Verified: PATIENT VERIFIED(optional for EMERGENT procedures): Patient name, Date of , Relevant allergies and The intended procedure Time Out Communication: Intended patient and procedure match the source documents. Consent documented and matches the intended procedure. Sign Out: SIGN OUT (optional for EMERGENT procedures): No specimen collected. Jhony Lux MD documented in this encounterTri[facility]06-07-2022 History of Present illness Narrative* Jhony Lux MD - 05/05/2022 12:00 AM EDT MEREDITH VILLATORO [id number] 05/05/2022 [facility] Department of Radiation Oncology [facility] RADIATION ONCOLOGY SIMULATION NOTE DATE OF SIMULATION: 05/05/2022 MACHINE: [employer] 500 Diagnosis: 185 (Prostate Gland) AREA:Prostate PATIENT POSITION: Supine CONTRAST: None PROTOCOL: None CONCURRENT THERAPY: None FIXATION DEVICE: UTS Stabilization device by [employer]. PROCEDURE: Patient was simulated in exaggerated dorsal lithotomy position. Serial images of the prostate were acquired using TRUS and reconstructed in 3D space. These images were imported into [employer] Prostate planning system where a plan was generated. ASSESSMENT/PLAN: Patient tolerated simulation procedure well. Electronically Signed Johan Lux M.D. / 21:50 PM documented in this encounterTrihealth [facility]05-27-2022 History of Present illness Narrative* Jhony Lux MD - 04/24/2022 12:00 AM EDT [facility] Radiation Oncology Department RADIATION ONCOLOGY - COMPLETION NOTE PATIENT: CELSO VILLATORO: 1960 DATES OF TREATMENT: 03/23/22 - 04/24/22 DIAGNOSIS: Prostate adenocarcinoma, initial PSA 2.0, biopsy Judd score 4 + 4 = 8 (grade group 4), clinical stage T2c, N0, M0, stage IIC [T1-T2, N0, M0, PSA <20, GG 4] (AJCC 8th ed.), s/p TRUS Random and MR Targeted biopsy. Prostate cancer (C61), 2019 NCCN Risk Group: High Risk Group AREA TREATED: Pelvis DELIVERED DOSE: Area: PELVIS 4,500 cGy in 25 fractions, 2 ARCS, VMAT, 10MV WITH DAILY CBCT ELAPSED TIME: 32 days. CLINICAL SUMMARY: Patient completed treatments with overall good tolerance though with some mild tomoderate increased urinary and bowel frequency. He has planned brachytherapy boost on 05/21/22. Staff Physician Johan Lux M.D. / NRS :54 PM Electronically Signed cc: Dr. Petra Flores, ENDLESS BELT FINISHER documented in this encounterTrihealth [facility]05-23-2022 History of Present illness Narrative* Jhony Lux MD - 04/20/2022 1:34 PM EDT Radiation Oncology - On Treatment Review (OTR) Note PATIENT NAME: Meredith Villatoro PATIENT DIAGNOSIS: Prostate adenocarcinoma, initial PSA 2.0, biopsy [place] score 4 + 4 = 8 (grade group 4), clinical stage T2c, N0, M0, stage IIC [T1-T2, N0, M0, PSA <20, GG 4] (AJCC 8th ed.), s/p TRUS Random and MR Targeted biopsy. Prostate cancer (C61), 2019 NCCN Risk Group: High Risk Group COURSE: definitive Current dose: 3780 cGy in 21 fx Planned dose: 4500 cGy in 25 fx SUBJECTIVE: Having some urgency and dysuria. No hematuria. No fever. PHYSICAL EXAM: 04/20/22 1336 BP: 110/63 Pulse: (!) 56 Resp: 18 Temp: 36.4 C (97.6 F) SpO2: 99% Weight: 111.6 kg (246 lb) KPS: 100 General Appearance: Alert and oriented. No acute distress. IMAGING/LAB RESULTS: Hemoglobin (g/dL) Date Value 04/02/2022 16.2 Hematocrit (%) Date Value 04/02/2022 46.1 WBC (k/uL) Date Value 04/02/2022 4.35 Platelet Count (k/uL) Date Value 04/02/2022 171 TOXICITY ASSESSMENT (CTC v4.0): Fatigue:grade 1 Radiation Dermatitis: grade 0 - No symptoms Diarrhea:grade 1 Proctitis: grade 0 - No symptoms Urinary frequency: grade 1 Dysuria: grade 1 Urinary incontinence: grade 1 Urinary retention: grade 0 - No symptoms Treatment chart checked: Yes Patient treatment site reviewed and verified:Yes Port films reviewed and current:Yes Medications started: None ASSESSMENT/PLAN: Clinically stable. Having some increased dysuria recommend UA to rule out UTI. Continue radiation treatment as planned. Jhony Lux MD documented in this encounterTri[facility]05-16-2022 History of Present illness Narrative* Yevgeniy Son MD - 04/13/2022 11:27 PM EDT Radiation Oncology - On Treatment Review (OTR) Note PATIENT NAME: Meredith Villatoro PATIENT DIAGNOSIS: Prostate adenocarcinoma, initial PSA 2.0, biopsy Judd score 4 + 4 = 8 (grade group 4), clinical stage T2c, N0, M0, stage IIC [T1-T2, N0, M0, PSA <20, GG 4] (AJCC 8th ed.), s/p TRUS Random and MR Targeted biopsy. Prostate cancer (C61), 2019 NCCN Risk Group: High Risk Group COURSE: definitive Current dose: 2880 cGy in 16 fx Planned dose: 4500 cGy in 25 fx SUBJECTIVE: Tolerating XRT well and denies any burning/discomfort with urination and notes nocturia3-4 times. He did have an episode of diarrhea yesterday which he feels might be related to diet anddenies any nausea. He does note fatigue with good appetite and hydration and stable weight. PHYSICAL EXAM: KPS: 100 General Appearance: Alert and oriented. No acute distress. IMAGING/LAB RESULTS: None TOXICITY ASSESSMENT (CTC v4.0): Fatigue:grade 1 - Fatigue relieved by rest Radiation Dermatitis: grade 0 - No symptoms Diarrhea:grade 1 - Increase to >4 stools per day over baseline; mild increase in ostomy output compared to baseline Proctitis: grade 0 - No symptoms Urinary frequency: grade 1 - present Dysuria: grade 1 - Microscopic hematuria; minimal increase in frequency, urgency, dysuria, or nocturia; new onset of incontinence Urinary incontinence: grade 1 (Occasional (e.g., with coughing, sneezing, etc.), pads not indicated) Urinary retention: grade 0 - No symptoms Treatment chart checked: Yes Patient treatment site reviewed and verified:Yes Port films reviewed and current:Yes Medications started: None ASSESSMENT/PLAN: Clinically stable. Toxicity within expected parameters. Continue radiation treatment as planned. Yevgeniy Son MD documented in this encounterTrihealth [facility]05-16-2022 Miscellaneous Notes* Telephone Encounter - Michelle Dalal RN - 04/13/2022 11:37 AM EDT Pt called in to cancel XRT today. He stated he started last night with Diarrhea and body aches. He still had it this am, but reports feeling slightly better. He is taking a small pill for diarrhea but is unsure what it is. Per his friend, this is a prescription he has for when his stomach acts up. They would like to possibly come in later today if he continues to feel better. They will let us know how he is doing this afternoon. He was encouraged to push fluids. Michelle Dalal RN documented in this encounterTri[facility]05-09-2022 History of Present illness Narrative* G Johan Lux MD - 04/06/2022 1:38 PM EDT Radiation Oncology - On Treatment Review (OTR) Note PATIENT NAME: Meredith Villatoro PATIENT DIAGNOSIS: Prostate adenocarcinoma, initial PSA 2.0, biopsy Judd score 4 + 4 = 8 (grade group 4), clinical stage T2c, N0, M0, stage IIC [T1-T2, N0, M0, PSA <20, GG 4] (AJCC 8th ed.), s/p TRUS Random and MR Targeted biopsy. Prostate cancer (C61), 2019 NCCN Risk Group: High Risk Group COURSE: definitive Current dose: 1980 cGy in 11 fx Planned dose: 4500 cGy in 25 fx SUBJECTIVE: Having some increased issues with diarrhea and bladder urgency. Mild dysuria. Back painstable. At one episode of incontinence. PHYSICAL EXAM: KPS: 100 General Appearance: Alert and oriented. No acute distress. IMAGING/LAB RESULTS: Hemoglobin (g/dL) Date Value 04/02/2022 16.2 Hematocrit (%) Date Value 04/02/2022 46.1 WBC (k/uL) Date Value 04/02/2022 4.35 Platelet Count (k/uL) Date Value 04/02/2022 171 TOXICITY ASSESSMENT (CTC v4.0): Fatigue:grade 1 Radiation Dermatitis: grade 0 - No symptoms Diarrhea:grade 1 Proctitis: grade 0 - No symptoms Urinary frequency: grade 1 Dysuria: grade 1 Urinary incontinence: grade 1 Urinary retention: grade 0 - No symptoms Treatment chart checked: Yes Patient treatment site reviewed and verified:Yes Port films reviewed and current:Yes Medications started: None ASSESSMENT/PLAN: Clinically stable. Discussed diet and bowel regimen including continue Lomotil as needed. Continue ibuprofen and/or Tylenol for his low back pain. Continue radiation treatment as planned. Jhony Lux MD documented in this encounterTri[facility]05-05-2022 History of Present illness Narrative* Jhony Lux MD - 04/02/2022 2:16 PM EDT Radiation Oncology - On Treatment Review (OTR) Note PATIENT NAME: Meredith Villatoro PATIENT DIAGNOSIS: Prostate adenocarcinoma, initial PSA 2.0, biopsy Judd score 4 + 4 = 8 (grade group 4), clinical stage T2c, N0, M0, stage IIC [T1-T2, N0, M0, PSA <20, GG 4] (AJCC 8th ed.), s/p TRUS Random and MR Targeted biopsy. Prostate cancer (C61), 2019 NCCN Risk Group: High Risk Group COURSE: definitive Current dose: 1620 cGy in 9 fx Planned dose: 4500 cGy in 25 fx SUBJECTIVE: Seen today due to concerns of some mild low back pain. Denies fever. Denies change in urination. Denies hematuria. PHYSICAL EXAM: KPS: 100 General Appearance: Alert and oriented. No acute distress. IMAGING/LAB RESULTS: Hemoglobin (g/dL) Date Value 04/02/2022 16.2 Hematocrit (%) Date Value 04/02/2022 46.1 WBC (k/uL) Date Value 04/02/2022 4.35 Platelet Count (k/uL) Date Value 04/02/2022 171 TOXICITY ASSESSMENT (CTC v4.0): Fatigue:grade 0 - No symptoms Radiation Dermatitis: grade 0 - No symptoms Diarrhea:grade 0 - No symptoms Proctitis: grade 0 - No symptoms Urinary frequency: grade 1 Dysuria: grade 0 - No symptoms Urinary incontinence: grade 0 (No symptoms) Urinary retention: grade 0 - No symptoms Treatment chart checked: Yes Patient treatment site reviewed and verified:Yes Port films reviewed and current:Yes Medications started: None ASSESSMENT/PLAN: Clinically stable. Having some low back pain, has been chronic for patient. We will continue to observe if worsens he will let us know. Tylenol Advil as needed. Continue radiation treatment as planned. Jhony Lux MD documented in this encounterTrihealth [facility]05-05-2022 Nurse Note* Mansi Ocampo LPN - 04/02/2022 1:52 PM EDT Meredith Villatoro presents in office today for: Lab Draw only . Ordering Provider: Johan Lux M.D. Test (s) ordered: CBC Method for obtaining blood: Phlebotomy was performed, accessing left antecubital vein. Needle removed intact. Dressing secured. Patient denies discomfort, dizziness, light-headedness or weakness and left the department without assist. Mansi Ocampo LPN documented in this encounterTrihealth [facility]05-03-2022 History of Present illness Narrative* Jhony Lux MD - 03/31/2022 1:39 PM EDT Radiation Oncology - On Treatment Review (OTR) Note PATIENT NAME: Meredith Villatoro PATIENT DIAGNOSIS: Prostate adenocarcinoma, initial PSA 2.0, biopsy [place] score 4 + 4 = 8 (grade group 4), clinical stage T2c, N0, M0, stage IIC [T1-T2, N0, M0, PSA <20, GG 4] (AJCC 8th ed.), s/p TRUS Random and MR Targeted biopsy. Prostate cancer (C61), 2019 NCCN Risk Group: High Risk Group COURSE: definitive Current dose: 1260 cGy in 7 fx Planned dose: 4500 cGy in 25 fx SUBJECTIVE: Increase in urinary frequency no other problems. PHYSICAL EXAM: 03/31/22 1336 BP: 128/50 Pulse: (!) 55 Resp: 16 Temp: 36.2 C (97.1 F) SpO2: 98% Weight: 109.3 kg (241 lb) KPS: 100 General Appearance: Alert and oriented. No acute distress. IMAGING/LAB RESULTS: No results found for: HB, HCT, WBC, PLT TOXICITY ASSESSMENT (CTC v4.0): Fatigue:grade 0 - No symptoms Radiation Dermatitis: grade 0 - No symptoms Diarrhea:grade 0 - No symptoms Proctitis: grade 0 - No symptoms Urinary frequency: grade 1 Dysuria: grade 0 - No symptoms Urinary incontinence: grade 0 (No symptoms) Urinary retention: grade 0 - No symptoms Treatment chart checked: Yes Patient treatment site reviewed and verified:Yes Port films reviewed and current:Yes Medications started: None ASSESSMENT/PLAN: Clinically stable. Toxicity within expected parameters. Continue radiation treatment as planned. Jhony Lux MD documented in this encounterTrihealth [facility]04-25-2022 History of Present illness Narrative* Jhony Lux MD - 03/23/2022 4:19 PM EDT Radiation Oncology - On Treatment Review (OTR) Note PATIENT NAME: Meredith Villatoro PATIENT DIAGNOSIS: Prostate adenocarcinoma, initial PSA 2.0, biopsy [place] score 4 + 4 = 8 (grade group 4), clinical stage T2c, N0, M0, stage IIC [T1-T2, N0, M0, PSA <20, GG 4] (AJCC 8th ed.), s/p TRUS Random and MR Targeted biopsy. Prostate cancer (C61), 2019 NCCN Risk Group: High Risk Group COURSE: definitive Current dose: 180 cGy in 1 fx Planned dose: 4500 cGy in 25 fx SUBJECTIVE: Here to start radiation, doing well. PHYSICAL EXAM: KPS: 100 General Appearance: Alert and oriented. No acute distress. IMAGING/LAB RESULTS: None TOXICITY ASSESSMENT (CTC v4.0): Fatigue:grade 0 - No symptoms Radiation Dermatitis: grade 0 - No symptoms Diarrhea:grade 0 - No symptoms Proctitis: grade 0 - No symptoms Urinary frequency: grade 0 - No symptoms Dysuria: grade 0 - No symptoms Urinary incontinence: grade 0 (No symptoms) Urinary retention: grade 0 - No symptoms Treatment chart checked: Yes Patient treatment site reviewed and verified:Yes Port films reviewed and current:Yes Medications started: None ASSESSMENT/PLAN: Clinically stable. Toxicity within expected parameters. Continue radiation treatment as planned. Jhony Lux MD documented in this encounterTrihealth [facility]04-22-2022 Miscellaneous Notes* Telephone Encounter - Mansi Ocampo LPN - 03/20/2022 4:27 PM EDT CBC order pending your approval. Mansi Ocampo LPN documented in this [facility]04-18-[facility] History of Present illness Narrative* Jhony Lux MD - 03/16/2022 12:00 AM EDT MEREDITH VILLATORO [id number] 03/16/2022 [facility] Radiation Oncology Department SIMULATION NOTE DATE OF SIMULATION: 03/16/2022 THERAPIST: Viky Alicea MACHINE: [employer] DIAGNOSIS: Malignant neoplasm of [id number] AREA: PELVIS CONTRAST: None <Select> Consent in Epic: Yes PATIENT POSITION: Supine. FIXATION DEVICE: In order to achieve accurate and reproducible treatments, the patient is immobilized with 2 PILLOWS, SBRT KNEE SPONGE, CUSTOM VACBAG A time-out was conducted and recorded by the therapist. CT scan was completed for target localization and planning. Field arrangement will be determined after plan has been completed. The patient is scheduled for a verification simulation on the treatment machine to ensure proper set-up and field arrangement is correct prior to the first treatment of primary and boost schmid if applicable. Patient education will be completed per nursing. Electronically Signed Johan Lux M.D. / WST 24:16 PM documented in this [facility]04-18-[facility] History of Present illness Narrative* Jhony Lux MD - 03/16/2022 12:00 AM EDT MEREDITH VILLATORO [id number] 03/16/2022 [facility] Department of Radiation Oncology Treatment Planning Note For reasons stated in the consult note, Meredith Villatoro is a candidate for radiation therapy. Based on review and interpretation of the relevant diagnostic studies together with the exam findings, Meredith Villatoro was simulated on 03/16/2022 at which time the target volume and/or requisite schmid were d elineated, as indicated in the simulation note, to be treated according to the prescription. The treatment target and organs at risk were contoured on the simulation scan . After reviewing multiple treatment plans with dosimetry, the best plan was approved to deliver the prescribed course of radiation to the target area using inverse planning to allow for the best isodose distribution, treating to the 98% isodose line with 10MV and 3 schmid. Custom MLC asym jaws for IMRT were the treatment devices used to shape/modify the beams. Limiting dose to normal tissue was confirmed upon review of the calculated dose volume histogram. IMRT planning was used because it best met the dose/volume constraints for the organs at risk for this patient, better than what could be achieved using conventional or 3D planning. The specific doserequirements for the PTV, organs at risk and dose-volume histograms are contained in this treatmentplan and/or elsewhere in the medical record. A completed summary of this plan dated 03/20/22 incorporated herein by reference includes dose, beamarrangements, energy, blocking, isodose distribution, and/or ports and DVH. Electronically Signed Johan Lux M.D. 23:19 PM documented in this encounterTrihealth [facility]04-13-2022 History of Present illness Narrative* TERRELL Lockhart - 03/11/2022 4:04 PM EDT PSYCHOSOCIAL ASSESSMENT Date of Service: March 11, 2022 Meredith Villatoro is a 61 year old male being seen for initial social work assessment. Diagnosis: Prostate Cancer New Primary Oncologist: Unknown Radiation Oncologist: Dr. Michelle Lux Goals of Care: Curative intent Today's visit includes: self/patient and friends Family History of Cancer: none SUPPORT NETWORK: Marital status: Single Parent(s): Mother is living and Father is Child/Children: No resident caregiver arrangements needed: Na Siblings: 2 sister(s) Grandchild(morris): none Home Health Provider: No Community Services: No Noelle Identified: No Alevism/Spirituality: None Are these practices or beliefs that may affect or influence treatment? 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 N/A Financial Distress: Yes, gas cards requested : No FOOD INSECURITY Within the past year, have you worried about how you would buy or obtain food? No LIVING ARRANGEMENTS: Type: House- independent [place] Resides with: mother and a sister FUNCTIONAL STATUS: Cognitive limitations: none Physical limitations: none Language barrier: No Hearing Impaired: No Speech Impaired: No Visual Impairments: Yes, wears corrective lenses Special considerations/accommodations needed: Yes, Specify needs: Patient is dyslexic. HEALTH LITERACY: 1. Do you have difficulty understanding medical instructions or other written materials you receivefrom you doctor or pharmacy? Not asked 2. Do have difficulty filling out medical forms by yourself? Not asked The following interventions were put into place: Use of plain language active listening with patient and family Use of concrete and specific phrases and avoid medical jargon Patient given opportunity to ask questions MEDICATION ADHERENCE: Within the past 2 weeks, have you had difficulty remembering to take your medicine? Not asked Within the past 2 weeks, did you ever miss taking your medications for reasons other than forgetting? No The following interventions were put into place: NA MENTAL HEALTH HISTORY: No History of combat/trauma: No Substance Use and Treatment History: denied History of Abuse: No Issues with: Sleep:No Eating:No Exercising: N/A Stress Management: No ADVANCE DIRECTIVES/LEGAL DOCUMENTS: Living Will: No and declined at this time Scanned into EPIC: No Health Care Durable Power of Student: No and declined at this time Scanned into EPIC: No Guardianship: NA Scanned into EPIC:NA Reasons Advanced Directives were not Addressed: Time constraints COPING STATUS: Coping Strengths: supportive relationships with immediate family and with friends Current affect/mood: appropriate History of Loss: Yes, step father 10 years ago. Adjustment to diagnosis: reflecting understanding and responding appropriately BARRIERS/CARE CHALLENGES: None Are barriers/care challenges identified likely to have an impact on the patient's quality of life during treatment? NA INTERVENTIONS/REFERRALS TO BE PROVIDED: Monitor patient response to treatment Referral to community resource Assist with financial support applications Continue follow up as needed Resources and Referrals: Internal: NA External: Other [facility] CLINICAL IMPRESSION: Patient is a 61 year old male with a diagnosis of prostate cancer. Patient lives in [place], [place] with his mother and sister. Patient is retired/disabled. Patient has dyslexia. Patient is accompanied today by a good friend Ed and Ed's . Patient appears to be alert, oriented, pleasant and cooperative. Patient uses humor as coping mechanism. Patient will be starting radiation treatments soon and is dependent upon others for transportation. Patient's friends plan to bring him in for his treatments. Patient wanted to know about community resources such as gas cards or mileage reimbursement programs. Patient was agreeable to complete an Intake Application for the [facility]. SW faxed the completed form and encouraged the Patient to call the [facility] to finalize details of his intake application. SW reviewed the role of an Oncology SW and provided a handout listing the services offered. Contact information to reach this SW was provided. SW will remain available and will follow up as appropriate. Psychosocial Risk Criteria If positive for one or more of the following risk criteria, follow up every 30 days Age: NA Mental Health: NA Practical Needs: N/A PLAN: Follow Up PRN Follow up appointment with SW in: PRN MARK Lockhart documented in this encounterTri[facility] Nurse Note* Michelle Dalal RN - 03/11/2022 1:58 PM EDT Radiation Therapy - Patient Education Note PATIENT NAME: Meredith Villatoro PATIENT March 11, 2022 [facility] FACILITY/LOCATION: [facility] READINESS TO LEARN Cognitive Ability: Alert and oriented Motivation to learn: Interested Family Support: High - Very involved in pt care Instruction provide to: Patient and friend/other Patient learns best by: Verbal Instruction Factors effecting learning: Literacy Factors: Dyslexia Physical limitations effecting learning: None LEARNING RESPONSE Diagnosis: Pt simulated today for radiation therapy to pelvis. Education Topic/Teaching Points: Radiation therapy, Side effects and OTV: Method of instruction: Written instruction - handouts Verbal instruction Patient /Family response: Patient and friend/other verbalized understanding of radiation treatments, side effects, OTV, and transportation. Follow-up plan: Recommend - Recommend continued instruction and follow up as directed Supplemental material: Informational handouts on Pelvic handout and Prostate external beam. Referral (recommendation): Social Work - Gas Mileage assistance. Signed by: Michelle Dalal RN documented in this encounterTrihealth [facility]04-13-[facility]22 Nurse Note* Michelle Dalal RN - 03/11/2022 1:03 PM EDT AUA 8 Michelle Dalal RN documented in this encounterTrihealth [facility]04-13-[facility]22 History of Present illness Narrative* Jhony Lux MD - 03/11/2022 1:02 PM EDT Radiation Oncology - Prostate Cancer New Patient/Consult Note PATIENT NAME: Meredith Villatoro PATIENT REQUESTING PROVIDER: Dr. Lambert DIAGNOSIS: 61 year old male with prostate adenocarcinoma, initial PSA 2.0, biopsy Judd score 4 +4 = 8 (grade group 4), clinical stage T2c, N0, M0, stage IIC [T1-T2, N0, M0, PSA <20, GG 4] (AJCC 8th ed.), s/p TRUS Random and MR Targeted biopsy. HPI: 61 year old male with prostate adenocarcinoma who presents for an opinion regarding the role of radiation therapy in the management of the patient's disease. Final recommendations will be communicated back to the requesting physician by way of the shared medical record, or letter to requestingphysician via US mail. The patient was diagnosed with prostate cancer and comes in today to discuss treatment options. He is here today with 2 to close friends for support. Clinical exam revealed a prostate nodule bilaterally. PSA 01/16/22 2.0. MRI prostate 01/08/2022 demonstrating a 40 cc gland with a focal hypointensity area described as 1.4x 1.2 cm in theperipheral zonePI-RADS 4. Additional focal area posterior lateral left peripheral zone. PI-RADS 5, focal loss of capsule suggestive of extracapsular spread. Prostate transrectal ultrasound with MRI fusion biopsy on February 05, 2022 revealed: [place] 8 (4+4) adenocarcinoma with areas of perineural involvement described, found bilaterally including area of interest. Total # of positive biopsy cores: 17 Total # of biopsy cores sampled: 18 Greatest % cancer in any single core: Greater than 50% Staging Studies: MR Results: See HPI Bone Scan Results: 02/20/2022 no evidence of skeletal metastatic disease CAT Scan Results: No definite evidence of metastatic disease. No suspicious adenopathy. Previous Treatment for Prostate Cancer: None Genomic Testing: None The patient reports the following pertinent history: Urinary frequency (D/N): 4-6/1-2 Dysuria: No Incontinence: 1- No pads Hematuria: No - Total AUA Score: 8 Bowel Movement Frequency: 1/day Bowel Movement Quality: Normal Blood per Rectum: No Last Colonoscopy: na Androgen Deprivation: Lupron started 02/27/22 Prior Radiation Therapy, Collagen Vascular Disease, or Inflammatory Bowel Disease: No Currently on Anticoagulation: No History of Hip Replacement: No History of Prior TURP: No ALLERGIES No Known Allergies diphenoxylate-atropine (LOMOTIL) 2.5-0.025 mg per tablet take 1 tablet by mouth twice a day if needed for diarrhea alfuzosin SR (UROXATRAL) 10 mg 24 hr tablet Take 10 mg by mouth once daily. lisinopril (ZESTRIL, PRINIVIL) 10 mg tablet Take 10 mg by mouth. atorvastatin (LIPITOR) 10 mg tablet Take 10 mg by mouth once daily. metoprolol tartrate, short acting, (LOPRESSOR) 50 mg tablet Take 50 mg by mouth. doxycycline hyclate (VIBRAMYCIN) 100 mg capsule Take 100 mg by mouth twice daily. ibuprofen (MOTRIN) 800 mg tablet Take 800 mg by mouth. FLUTICASONE PROPIONATE NASAL Use in the nose. PAST MEDICAL HISTORY Diagnosis Date Arthritis BPH (benign prostatic hyperplasia) Essential hypertension Hypercholesteremia Prostate cancer (HCC) PAST SURGICAL HISTORY Procedure Laterality Date PAST SURGICAL HISTORY OF Partial Colectomy REMOVAL GALLBLADDER History reviewed. No pertinent family history. Social History Tobacco Use Smoking status: Current Every Day Smoker Packs/day: 0.50 Types: Cigarettes Start date: 04/29/1977 Smokeless tobacco: Former User Substance Use Topics Alcohol use: Yes Alcohol/week: 6.0 standard drinks Types: 6 Cans of Beer (12oz) per week Drug use: Never REVIEW OF SYSTEMS: GENERAL: feeling well without fatigue, no recent change in weight NECK: denies swelling or pain in neck MUSCULOSKELETAL: denies any painful or swollen joints, no muscle aches SKIN: no rash NEURO: no numbness or paresthesias and no weakness of the extremities As noted in HPI PHYSICAL EXAM: VS: BP 128/78 Pulse 61 Temp (!) 35.9 C (96.7 F) Resp 16 Ht 164.5 cm (5' 4.75 ) Wt 108.9 kg (240 lb) SpO2 95% BMI 40.25 kg/m KARNOFSKY PERFORMANCE STATUS: 100 General Appearance: Alert and oriented. No acute distress. HEENT: NCAT. Sclera anicteric. PERRL. EOMI. Neck: Normal ROM. No palpable cervical or supraclavicular adenopathy. Chest: No respiratory distress. Lungs clear to auscultation bilaterally. Heart: Regular rate and rhythm. Abdomen: Soft. Nontender. Nondistended. Musculoskeletal: No edema. Normal ROM in extremities. No bone or spine tenderness. Neuro: Speech fluent. Gait normal. No focal deficits. Skin: No rashes noted Lymphatics: No palpable lymphadenopathy. GENITOURINARY: Deferred exam RECTAL: Deferred exam RADIOLOGY/LABORATORY DATA: see HPI ASSESSMENT/PLAN: Prostate adenocarcinoma, initial PSA 2.0, biopsy Judd score 4 + 4 = 8 (grade group 4), clinical stage T2c, N0, M0, stage IIC [T1-T2, N0, M0, PSA <20, GG 4] (AJCC 8th ed.), s/p TRUS Random and MR Targeted biopsy. Prostate cancer (C61), 2019 NCCN Risk Group: High Risk Group Clinical State: Localized Cancer - New Diagnosis Patient has a localized but high risk adenocarcinoma prostate. Given pathologic features certainly definitive treatment is indicated. In terms of definitive options went over these at length with patient. Patient is not felt to be candidate for robotic prostatectomy due to prior abdominal surgery and partial colectomy. Patient not interested in surgery. Patient is an appropriate candidate for definitive radiation. Discussed options including IMRT along with ADT or IMRT pelvic treatment to include prostate and lymphatics followed by prostate brachytherapy boost, along with ADT. Certainly givenhis high-grade disease and fairly bulky disease with nearly all cores involved agree with initiating ADT. I do feel that given this fairly likely advanced high risk presentation that proceeding with external beam and brachytherapy boost is very appropriate for him. After long discussion patient does want to proceed with this approach. We will plan a simulation within the next couple weeks followed by initiation of pelvic treatment. We will coordinate prostate brachytherapy boost with Dr. Ramirez. Risk benefits and rationale discussed at length. Radiation safety precautions after brachytherapy also discussed at length. Patient expressed an understanding of the information presented. Signed by: Jhony Lux MD cc: Adrian Flores [phone] [place] [address] Leila Lambert [address] [facility] [id number] documented in this encounterTrihealth [facility] HospitalEvaluation + Plan note Future Appointments Appointment Date:09/04/2022 10:15:00 AM Scheduled Provider:Leila LAMBERT MD Location:[facility] Appointment Type:URO Office Visit [facility] evaluation + Plan note Future Appointments Appointment Date:03/08/2023 02:45:00 PM Scheduled Provider:Leila LAMBERT MD Location:[facility] Appointment Type:URO Office Visit Diagnostic Tests Pending * PSA Total 11/29/22 [facility] evaluation + Plan note Future Appointments Appointment Date:03/08/2023 02:45:00 PM Scheduled Provider:Leila LAMBERT MD Location:[facility] App[facility]ments Appointment Date:09/13/2023 10:15:00 AM Scheduled Provider:[facility] Type:[facility] Office Visit Diagnostic Tests Pending * PSA Total 03/08/23 Future Scheduled Tests Laboratory* PSA Total 02/16/23 [facility] evaluation + Plan note Future Appointments Appointment Date:05/17/2023 11:45:00 AM Scheduled Provider:Leial LAMBERT MD [facility] App[facility] Type:URO Office Visit Appointment Date:09/13/2023 10:15:00 AM Scheduled Provider:Leila LAMBERT MD [facility] App[facility] Type:URO Office Visit Future Scheduled Tests Laboratory* PSA Total 02/16/23 [facility] evaluation + Plan note Future Appointments Appointment Date:07/12/2023 10:30:00 AM Scheduled Provider:Leila LAMBERT MD [facility] App[facility] Type:URO Office Visit Appointment Date:09/13/2023 11:45:00 AM Scheduled Provider:Leila LAMBERT MD Location:[facility] Appointment Type:URO Office Visit Future Scheduled Tests Laboratory* PSA Total 02/16/23 [facility] evaluation + Plan note Future Appointments Appointment Date:09/06/2023 09:30:00 AM Scheduled Provider: Location:[facility] Appointment Type:URO Nurse Visit Appointment Date:09/13/2023 11:45:00 AM Scheduled Provider:Leila LAMBERT MD [facility] App[facility] Type:URO Office Visit Future Scheduled Tests Laboratory* PSA Total 02/16/23 [facility] evaluation + Plan note Future Appointments Appointment Date:03/17/2024 10:45:00 AM Scheduled Provider:Leila LAMBERT MD [facility] Appoint[facility] Type:URO Office Visit Diagnostic Tests Pending * PSA Total 09/13/23 Future Scheduled Tests Laboratory* PSA Total 02/16/23 [facility] evaluation + Plan note Future Appointments Appointment Date:09/29/2024 09:45:00 AM Scheduled Provider:Leila LAMBERT MD [facility] App[facility] Type:URO Office Visit Diagnostic Tests Pending * PSA Total 07/30/24 [facility] evaluation + Plan note Future Appointments Appointment Date:09/29/2024 09:45:00 AM Scheduled Provider:Leila LAMBERT MD Location:[facility] Appointment Type:URO Office Visit [facility] + Plan note Future Appointments Appointment Date:10/16/2024 11:45:00 AM Scheduled Provider:Leila LAMBERT MD Location:[facility] Appointment Type:URO Office Visit [facility] evaluation + Plan note Future Appointments Appointment Date:01/08/2025 09:30:00 AM Scheduled Provider: Location:[facility] Appointment Type:URO Nurse Visit Appointment Date:01/15/2025 11:15:00 AM Scheduled Provider:Leila LAMBERT MD Location:[facility] Appointment Type:URO Office Visit Diagnostic Tests Pending * PSA Total 10/16/24 [facility] evaluation note* Diagnosis Prostate cancer (HCC)- Primary Malignant neoplasm of prostate documented [facility] encounter [facility]* Diagnosis Prostate cancer (HCC)- Primary Malignant neoplasm of prostate documented in this encounter [facility]* Diagnosis Malignant neoplasm of prostate (HCC)- Primary Malignant neoplasm of prostate documented in this encounter [facility]* Diagnosis Malignant neoplasm of prostate (HCC)- Primary Malignant neoplasm of prostate [facility]* Diagnosis Prostate cancer (HCC) Malignant neoplasm of prostate documented in this encounter [facility]* Diagnosis Malignant neoplasm of prostate (HCC)- Primary Malignant neoplasm of prostate documented in this encounter [facility]* Diagnosis Malignant neoplasm of prostate (HCC)- Primary Malignant neoplasm of prostate documented in this encounter [facility] note* Diagnosis Dysuria- Primary documented in this encounter [facility] note* Diagnosis Malignant neoplasm of prostate (HCC)- Primary Malignant neoplasm of prostate documented in this encounter [facility] note* Diagnosis Malignant neoplasm of prostate (HCC)- Primary Malignant neoplasm of prostate Dysuria documented in this encounter [facility] note* Diagnosis Malignant neoplasm of prostate (HCC)- Primary Malignant neoplasm of prostate documented in this encounter [facility] note* Diagnosis Malignant neoplasm of prostate (HCC)- Primary Malignant neoplasm of prostate documented in this encounter [facility] note* Diagnosis Malignant neoplasm of prostate (HCC)- Primary Malignant neoplasm of prostate documented in this encounter [facility] note* Diagnosis Malignant neoplasm of prostate (HCC)- Primary Malignant neoplasm of prostate documented in this encounter [facility] note* Diagnosis Malignant neoplasm of prostate (HCC)- Primary Malignant neoplasm of prostate documented in this encounter [facility] note* Diagnosis Prostate cancer (HCC) Malignant neoplasm of prostate documented in this encounter [facility] note* Diagnosis Malignant neoplasm of prostate (HCC)- Primary Malignant neoplasm of prostate Gynecomastia, male Hypertrophy of breast documented in this encounter [facility] noteNo assessment information availableTrihealth [facility] Hospital Work Phone: evalugztoc note* Diagnosis History of prostate cancer- Primary Personal history of malignant neoplasm of prostate Prostate cancer (HCC) Malignant neoplasm of prostate documented in this encounter [facility] note* Diagnosis Onset Date Resolution Status Abdominal pain acute Diarrhea acute [facility] Work Phone: evalulofct note* Diagnosis Onset Date Resolution Status Abdominal pain acute Diarrhea acute IBS (irritable bowel syndrome) acute [facility] Work Phone: evaluation note* Diagnosis Arthritis of left ankle- Primary Other enthesopathy of left foot and ankle Chronic pain of left ankle Other synovitis and tenosynovitis, left ankle and foot [facility]* Diagnosis Arthritis of left ankle- Primary Other synovitis and tenosynovitis, left ankle and foot Chronic pain of left ankle [facility]* Diagnosis Arthritis of left ankle- Primary Other enthesopathy of left foot and ankle Chronic pain of left ankle Other synovitis and tenosynovitis, left ankle and foot Difficulty walking Difficulty in walking documented [facility] - Reported* Type Description Date Medical History PROSTATE CANCER Medical History HIGH BLOOD PRESSURE Surgical History BOWEL RESECTION FOR UNCLEAR REASONS - POSSIBLE OBSTRUCTION 2012 Surgical History PROSTATE CANCER 2021 Hospitalization History SEE ABOVE Artwardly Other Hospital course Narrative No data available for this section [facility] Hospital Discharge instructions No data available for this section [facility] Hospital Discharge instructions Additional Instructions DISCHARGE INSTRUCTIONS FOR COLONOSCOPY WHAT TO EXPECT: - You may feel full, gassy or cramping after your procedure. In some cases, this may be from a few hours to a day. Walking may help relieve the discomfort. - If you have polyp(s) removed you may note some minor bloody discharge after your first bowel movements. - You should begin to recover from anesthesia within 1 hour of the procedure, however may feel groggy for the next 24 hours. DO's AND DON'Ts: - Call your doctor right away if you have a hard abdomen, severe pain, are passing lots of bright red blood or clots. - Call your doctor if you develop any rashes, hives or difficulty breathing. - Let your doctor know if you have not had a bowel movement by 3 days after your procedure. - If you take 81 mg aspirin for your heart it is safe to resume this medication. - If you take other blood thinner medications your doctor will instruct you when these can safely be resumed. - Do NOT drive for 24 hours. - Do NOT operate machinery such as power tools, lawn mowers, snow blowers, sewing machines, etc. for 24 hours. - Avoid alcoholic beverages and drugs for allergies, nerves, or sleep. - Do NOT stay alone. Do NOT leave your child unattended. - Do NOT make important personal or business decisions or sign any legal documents. - Eat solid foods and drink liquids in smaller amounts than usual until normal appetite returns. If you should experience an upset stomach, liquids high in sugar content (soda, Edgardo-Aid, non-acid juices) are recommended. - You can resume normal activities tomorrow. FOLLOW UP & RECOMMENDATIONS: -The GI office will contact you with your results and further follow-up. -Notify the doctor if you have any problems. -Follow up with PCP. -Office number [phone].[facility] Work Phone: InstructionsNot on filedocumented in this encounter [facility]ructionsNot on filedocumented in this encounter [facility] SystemProgress note No data available for this section [facility] Summary Purpose Family History Relationship Condition Age at Onset Recorded Date/T vicky father Unknown sister Hypertension Unknown Diabetes mellitus Unknown Advance Directives Advance Directive Response Recorded Date/ Time Advance Directives No January 06, 2022 11:42am Advance Directive Response Recorded Date/ Time Advance Directives No January 06, 2022 12:42pm Date Activated Date Inactivated Comments 06/22/2022 12:10 AM 06/23/2022 6:44 PM Chief Complaint and Reason for Visit Chief Complaint K52.9 R14.3 R10.9 Chief Complaint Chronic Diarrhea K52.9 R14.3 R10.9 Change in Bowel Habits, Diarrhea Chief Complaint Change in Bowel Habi ts, Diarrhea follow up scope Reason for Visit Abdominal pain Diarrhea Chief Complaint 3 month follow up Reason for Visit Abdominal pain Diarrhea IBS (irritable bowel syndrome) Additional Source Comments Source Comments (unrecognize d section and content) In the event this informatio n is protected by the Federal Confidentiality of Alcohol and Drug Abuse Patient Records regulations: The Federal rules restrict any use of the information to criminally investigate or prosecute any alcohol or drug abuse patient.[facility] HospitalIn the event this information is protected by the Federal Confidentiality of Alcohol and Drug Abuse Patient Records regulations: The Federal rules restrict any use of the information to criminally investigate or prosecute any alcohol or drug abuse patient.[facility] HospitalIn the event this information is protected by the Federal Confidentiality of Alcohol and Drug Abuse Patient Records regulations: The Federal rules restrict any use of the information to criminally investigate or prosecute any alcohol or drug abuse patient.[facility] HospitalIn the event this information is protected by the Federal Confidentiality of Alcohol and Drug Abuse Patient Records regulations: The Federal rules restrict any use of the information to criminally investigate or prosecute any alcohol or drug abuse patient.[facility] HospitalIn the event this information is protected by the Federal Confidentiality of Alcohol and Drug Abuse Patient Records regulations: The Federal rules restrict any use of the information to criminally investigate or prosecute any alcohol or drug abuse patient.[facility] HospitalIn the event this information is protected by the Federal Confidentiality of Alcohol and Drug Abuse Patient Records regulations: The Federal rules restrict any use of the information to criminally investigate or prosecute any alcohol or drug abuse patient.[facility] HospitalIn the event this information is protected by the Federal Confidentiality of Alcohol and Drug Abuse Patient Records regulations: The Federal rules restrict any use of the information to criminally investigate or prosecute any alcohol or drug abuse patient.[facility] HospitalIn the event this information is protected by the Federal Confidentiality of Alcohol and Drug Abuse Patient Records regulations: The Federal rules restrict any use of the information to criminally investigate or prosecute any alcohol or drug abuse patient.[facility] HospitalIn the event this information is protected by the Federal Confidentiality of Alcohol and Drug Abuse Patient Records regulations: The Federal rules restrict any use of the information to criminally investigate or prosecute any alcohol or drug abuse patient.[facility] HospitalIn the event this information is protected by the Federal Confidentiality of Alcohol and Drug Abuse Patient Records regulations: The Federal rules restrict any use of the information to criminally investigate or prosecute any alcohol or drug abuse patient.[facility] HospitalIn the event this information is protected by the Federal Confidentiality of Alcohol and Drug Abuse Patient Records regulations: The Federal rules restrict any use of the information to criminally investigate or prosecute any alcohol or drug abuse patient.[facility] HospitalIn the event this information is protected by the Federal Confidentiality of Alcohol and Drug Abuse Patient Records regulations: The Federal rules restrict any use of the information to criminally investigate or prosecute any alcohol or drug abuse patient.[facility] HospitalIn the event this information is protected by the Federal Confidentiality of Alcohol and Drug Abuse Patient Records regulations: The Federal rules restrict any use of the information to criminally investigate or prosecute any alcohol or drug abuse patient.[facility] HospitalIn the event this information is protected by the Federal Confidentiality of Alcohol and Drug Abuse Patient Records regulations: The Federal rules restrict any use of the information to criminally investigate or prosecute any alcohol or drug abuse patient.[facility] HospitalIn the event this information is protected by the Federal Confidentiality of Alcohol and Drug Abuse Patient Records regulations: The Federal rules restrict any use of the information to criminally investigate or prosecute any alcohol or drug abuse patient.[facility] HospitalIn the event this information is protected by the Federal Confidentiality of Alcohol and Drug Abuse Patient Records regulations: The Federal rules restrict any use of the information to criminally investigate or prosecute any alcohol or drug abuse patient.[facility] HospitalIn the event this information is protected by the Federal Confidentiality of Alcohol and Drug Abuse Patient Records regulations: The Federal rules restrict any use of the information to criminally investigate or prosecute any alcohol or drug abuse patient.[facility] HospitalIn the event this information is protected by the Federal Confidentiality of Alcohol and Drug Abuse Patient Records regulations: The Federal rules restrict any use of the information to criminally investigate or prosecute any alcohol or drug abuse patient.[facility] HospitalIn the event this information is protected by the Federal Confidentiality of Alcohol and Drug Abuse Patient Records regulations: The Federal rules restrict any use of the information to criminally investigate or prosecute any alcohol or drug abuse patient.[facility] HospitalIn the event this information is protected by the Federal Confidentiality of Alcohol and Drug Abuse Patient Records regulations: The Federal rules restrict any use of the information to criminally investigate or prosecute any alcohol or drug abuse patient.[facility] HospitalIn the event this information is protected by the Federal Confidentiality of Alcohol and Drug Abuse Patient Records regulations: The Federal rules restrict any use of the information to criminally investigate or prosecute any alcohol or drug abuse patient.[facility] HospitalIn the event this information is protected by the Federal Confidentiality of Alcohol and Drug Abuse Patient Records regulations: The Federal rules restrict any use of the information to criminally investigate or prosecute any alcohol or drug abuse patient.[facility] HospitalIn the event this information is protected by the Federal Confidentiality of Alcohol and Drug Abuse Patient Records regulations: The Federal rules restrict any use of the information to criminally investigate or prosecute any alcohol or drug abuse patient.[facility] HospitalIn the event this information is protected by the Federal Confidentiality of Alcohol and Drug Abuse Patient Records regulations: The Federal rules restrict any use of the information to criminally investigate or prosecute any alcohol or drug abuse patient.[facility] HospitalIn the event this information is protected by the Federal Confidentiality of Alcohol and Drug Abuse Patient Records regulations: The Federal rules restrict any use of the information to criminally investigate or prosecute any alcohol or drug abuse patient.[facility] HospitalIn the event this information is protected by the Federal Confidentiality of Alcohol and Drug Abuse Patient Records regulations: The Federal rules restrict any use of the information to criminally investigate or prosecute any alcohol or drug abuse patient.[facility] HospitalIn the event this information is protected by the Federal Confidentiality of Alcohol and Drug Abuse Patient Records regulations: The Federal rules restrict any use of the information to criminally investigate or prosecute any alcohol or drug abuse patient.[facility] HospitalIn the event this information is protected by the Federal Confidentiality of Alcohol and Drug Abuse Patient Records regulations: The Federal rules restrict any use of the information to criminally investigate or prosecute any alcohol or drug abuse patient.[facility] HospitalIn the event this information is protected by the Federal Confidentiality of Alcohol and Drug Abuse Patient Records regulations: The Federal rules restrict any use of the information to criminally investigate or prosecute any alcohol or drug abuse patient.[facility] HospitalIn the event this information is protected by the Federal Confidentiality of Alcohol and Drug Abuse Patient Records regulations: The Federal rules restrict any use of the information to criminally investigate or prosecute any alcohol or drug abuse patient.[facility] HospitalIn the event this information is protected by the Federal Confidentiality of Alcohol and Drug Abuse Patient Records regulations: The Federal rules restrict any use of the information to criminally investigate or prosecute any alcohol or drug abuse patient.[facility] Reason for Visit (unrecogniz ed section and content) Reason Comments Patient Education Reason Comments Prostate Cancer Specialty Diagnoses / Procedures Referred By Contac t Referred To Contact Radiation Oncology / RADIATION ONCOLOGY Diagnoses Dr. Lambert referral DX: Prostate Ca Procedures NEW PATIENT RAD ONC Leila Lambert MD [address] [place] [address] Jhony Lux MD [address] [place] [address] [place] [address] Referral ID Status Reason Start Date Expiration Date Visits Re quested Visits Authorized [id number] Closed 03/11/2022 11/28/2022 1 1 Reason Comments Orders Reason Comments Radiotherapy On-treatment Visit Reason Comments Diarrhea Reason Comments Urinalysis Reason Comments Volume Study Specialty Diagnoses / Procedures Referred By Contac t Referred To Contact Radiation Oncology / RADIATION ONCOLOGY Diagnoses Malignant neoplasm of prostate SIM/IRA/Pelvis Procedures SIMULATION MOLLY IMRT 25 fractions Jhony Lux MD [address] [address] Jhony Lux MD [address] [place] [address] [place] [address] Referral ID Status Reason Start Date Expiration Date V isits Requested Visits Authorized [id number] Authorized 03/16/2022 11/28/2022 99 99 Reason Comments Nutrition Telephone Specialty Diagnoses / Procedures Referred By Contac t Referred To Contact Radiation Oncology / RADIATION ONCOLOGY Diagnoses Malignant neoplasm of prostate 6 Month Follow Up Procedures OFFICE/OUTPATIENT ESTABLISHED HIGH MDM 40-54 MIN OFFICE/OUTPATIENT ESTABLISHED MOD MDM 30-39 MIN OFFICE/OUTPATIENT ESTABLISHED LOW MDM 20-29 MIN OFFICE/OUTPATIENT ESTABLISHED SF MDM 10-19 MIN EST PATIENT Juma FloresSARAH leos [address] [place] [address] Jhony Lux MD [address] [place] [address] Referral ID Status Reason Start Date Expiration Date Visits Re quested Visits Authorized [id number] Closed 06/21/2023 11/28/2023 1 1 Specialty Diagnoses / Procedures Referred By Contac t Referred To Contact Radiation Oncology / RADIATION ONCOLOGY Diagnoses followup Procedures OFFICE/OUTPATIENT ESTABLISHED HIGH MDM 40 MIN EST PATIENT Adrian FloresSARAH [address] [place] [address] Jhony Lux MD [address] [place] [address] Referral ID Status Reason Start Date Expiration Date Visits Re quested Visits Authorized [id number] Closed 12/16/2023 11/28/2024 1 1 Referral ID Status Reason Start Date Expiration Date Visits Re quested Visits Authorized [id number] Closed 03/16/2022 11/28/2022 99 99 Reason Onset Date Comments Advice Only 08/24/2024 Reason Comments FUV/check brace Meredith Villatoro is a 64 y.o. male who presents for FUV Left ankle pain and AFO check. Patient relates when he reaches to remove the brace, his ankle feels like pins and needles. Patient has intermittent stabbing pain at nighttime in the right ankle. Reason Comments Consult Meredith Villatoro is a 64 y.o. male who presents for FUV Left ankle pain and AFO check. Patient relates when he reaches to remove the brace, his ankle feels like pins and needles. Patient has intermittent stabbing pain at nighttime in the right ankle. Patients sister Yolette to discuss option.s Reason Comments MRI results Care Teams (unrecognized sec tion and content) Team Status: Active Member Role Status Dates [facility] Primary Care Provider Active Team Status: Inactive Member Role Status Dates [facility] Primary Care Provider Active Start: June 22, 2024 End: June 22, 2024 Fred Kirk MD Attending Provider Active S tart: June 22, 2024 End: June 22, 2024 Team Status: Active Member Role Status Dates [facility] Primary Care Provider Active Start: January 05, 2024 Fred Kirk MD Attending Provider, Other Provider Active Start: January 05, 2024 Team Status: Inactive Member Role Status Dates [facility] Primary Care Provider Active Start: March 01, 2024 End: March 01, 2024 Fred Kirk MD Attending Provider Active S tart: March 01, 2024 End: March 01, 2024 Cardiology Tech Relationship Specialty Start Date End Date Adrian Flores, [employer]LESS [employer]T FINISHER [address] [place] [address] PCP - General Internal Medicine 03/03/22 Leila Lambert MD [address] [place] [address] Referring Urology 03/03/22 Cardiology Tech Relationship Specialty Start Date End Date Adrian Flores CNP [address] [place] [address] PCP - General Internal Medicine 03/03/22 Leila Lambert MD [address] [place] [address] Referring Urology 03/03/22 Cardiology Tech Relationship Specialty Start Date End Date Adrian Flores CNP [address] [place] [address] PCP - General Internal Medicine 03/03/22 Leila Lambert MD [address] [place] [address] Referring Urology 03/03/22 Cardiology Tech Relationship Specialty Start Date End Date Adrian Flores CNP [address] [place] [address] PCP - General Internal Medicine 03/03/22 Leila Lambert MD [address] [place] [address] Referring Urology 03/03/22 Cardiology Tech Relationship Specialty Start Date End Date Adrian Flores CNP [address] [place] [address] PCP - General Internal Medicine 03/03/22 Leila Lambert MD [address] [place] [address] Referring Urology 03/03/22 Cardiology Tech Relationship Specialty Start Date End Date Adrian Flores CNP [address] [place] [address] PCP - General Internal Medicine 03/03/22 Leila Lambert MD [address] [place] [address] Referring Urology 03/03/22 Cardiology Tech Relationship Specialty Start Date End Date Adrian Flores CNP [address] [place] [address] PCP - General Internal Medicine 03/03/22 Leila Lambert MD [address] [place] [address] Referring Urology 03/03/22 Cardiology Tech Relationship Specialty Start Date End Date Adrian Flores CNP [address] [place] [address] PCP - General Internal Medicine 03/03/22 Leila Lambert MD [address] [place] [address] Referring Urology 03/03/22 Cardiology Tech Relationship Specialty Start Date End Date Adrian Flores CNP [address] [place] [address] PCP - General Internal Medicine 03/03/22 Leila Lambert MD [address] [place] [address] Referring Urology 03/03/22 Cardiology Tech Relationship Specialty Start Date End Date Adrian Flores CNP [address] [place] [address] PCP - General Internal Medicine 03/03/22 Leila Lambert MD [address] [place] [address] Referring Urology 03/03/22 Cardiology Tech Relationship Specialty Start Date End Date Adrian Flores CNP [address] [place] [address] PCP - General Internal Medicine 03/03/22 Leila Lambert MD [address] [place] [address] Referring Urology 03/03/22 Cardiology Tech Relationship Specialty Start Date End Date Adrian Flores CNP [address] [place] [address] PCP - General Internal Medicine 03/03/22 Leila Lambert MD [address] [place] [address] Referring Urology 03/03/22 Cardiology Tech Relationship Specialty Start Date End Date Adrian Flores CNP [address] [place] [address] PCP - General Internal Medicine 03/03/22 Leila Lambert MD [address] [place] [address] Referring Urology 03/03/22 Cardiology Tech Relationship Specialty Start Date End Date Adrian Flores CNP [address] [place] [address] PCP - General Internal Medicine 03/03/22 Leila Lambert MD [address] [place] [address] Referring Urology 03/03/22 Cardiology Tech Relationship Specialty Start Date End Date Adrian Flores CNP [address] [place] [address] PCP - General Internal Medicine 03/03/22 Leila Lambert MD [address] [place] [address] Referring Urology 03/03/22 Cardiology Tech Relationship Specialty Start Date End Date Adrian Flores CNP [address] [place] [address] PCP - General Internal Medicine 03/03/22 Leila Lambert MD [address] [place] [address] Referring Urology 03/03/22 Cardiology Tech Relationship Specialty Start Date End Date Adrian Flores, [employer]LESS [employer]T FINISHER [address] [place] [address] PCP - General Internal Medicine 03/03/22 Leila Lambert MD [address] [place] [address] Referring Urology 03/03/22 Cardiology Tech Relationship Specialty Start Date End Date Adrian Flores, [employer]LESS [employer]T FINISHER [address] [place] [address] PCP - General Internal Medicine 01/05/23 Leila Lambert MD [address] [place] [address] Referring Urology 03/03/[address] [address] 01/05/23 Cardiology Tech Relationship Specialty Start Date End Date Adrian Flores CNP [address] [place] [address] PCP - General Internal Medicine 01/05/23 Leila Lambert MD [address] [place] [address] Referring Urology 03/03/[address] [address] 01/05/23 Team Status: Inactive Member Role Status Dates [facility] Dept Primary Care Provider Active Fred Kirk MD Attending Provider Active Team Status: Inactive Member Role Status Dates Fred Kirk MD Attending Provider Active S tart: November 30, 2023 End: November 30, 2023 Team Status: Inactive Member Role Status Dates [facility] Primary Care Provider Active Start: November 30, 2023 End: November 30, 2023 Fred Kirk MD Attending Provider Active S tart: November 30, 2023 End: November 30, 2023 Cardiology Tech Relationship Specialty Start Date End Date Adrian Flores CNP [address] [facility] [place] [address] PCP - General Internal Medicine 01/05/23 Leila Lambert MD [address] [place], [place] [address] Referring Urology 03/03/[address] [address] 01/05/23 Cardiology Tech Relationship Specialty Start Date End Date Adrian Flores CNP [address] [place], [place] [address] [address] PCP - General Internal Medicine 03/03/22 01/04/23 Leila Lambert MD [address] [place] [address] Referring Urology 03/03/22 Cardiology Tech Relationship Specialty Start Date End Date Adrian Flores CNP [address] [place] [address] PCP - General Internal Medicine 03/03/22 01/04/23 Leila Lambert MD [address] [place] [address] Referring Urology 03/03/22 Cardiology Tech Relationship Specialty Start Date End Date Yolette Warren MD [address] [facility] [place] [address] PCP - General Pediatrics 05/16/24 Cardiology Tech Relationship Specialty Start Date End Date [facility] [address] [place] PCP - General Family Medicine 06/08/21 Cardiology Tech Relationship Specialty Start Date End Date [facility] [address] [place] PCP - General Family Medicine 06/08/21 Cardiology Tech Relationship Specialty Start Date End Date Yolette Warren MD [address] [place] [address] PCP - General Pediatrics 05/16/24 Cardiology Tech Relationship Specialty Start Date End Date Yolette Warren MD [address] [place] [address] PCP - General Pediatrics 05/16/24 Cardiology Tech Relationship Specialty Start Date End Date Yolette Warren MD [address] [place] [address] PCP - General Pediatrics 05/16/24 Cardiology Tech Relationship Specialty Start Date End Date Yolette Warren MD [address] [place] [address] PCP - General Pediatrics 05/16/24 Cardiology Tech Relationship Specialty Start Date End Date Yolette Warren MD [address] [facility] [place], [place] [address] PCP - General Pediatrics 05/16/24 (unrecognized sect ion and content) No Status Records FoundNo Status Records FoundNo Status Records FoundNo Status Records FoundNo Status Records FoundNo Status Records FoundNo Status Records FoundNo Status Records FoundNo Status Records Found INFORMATION SOURCE (unrecogn ized section and content) DATE CREATED AUTHOR 02/06/2023 [facility] DATE CREATED AUTHOR AUTHOR'S ORGANIZ ATION 02/21/2023 [facility] DATE CREATED AUTHOR AUTHOR'S ORGANIZ ATION 01/14/2024 [facility] DATE CREATED AUTHOR AUTHOR'S ORGANIZ ATION 01/17/2024 [facility] DATE CREATED AUTHOR AUTHOR'S ORGANIZ ATION 08/25/2024 [facility] DATE CREATED AUTHOR AUTHOR'S ORGANIZ ATION 09/17/2024 [facility] DATE CREATED AUTHOR AUTHOR'S ORGANIZ ATION 10/11/2024 [facility] dical [facility] DATE CREATED AUTHOR AUTHOR'S ORGANIZ ATION 10/18/2024 [facility] DATE CREATED AUTHOR AUTHOR'S ORGANIZ ATION 10/19/2024 [facility] Goals (unrecognized section and content) Goals may be documented in a n alternate section FOR RECORDS PERTAINING TO PATIENTS WHO ARE OR HAVE BEEN ENROLLED IN A CHEMICAL DEPENDENCY/SUBSTANCEABUSE PROGRAM, SOME INFORMATION MAY BE OMITTED. This clinical summary was aggregated from multiple sources. Caution should be exercised in using it in the provision of clinical care. This summary normalizes information from multiple sources, and as a consequence, information in this document may materially change the coding, format and clinical context of patient data. In addition, data may be omitted in some cases. CLINICAL DECISIONS SHOULD BE BASED ON THE PRIMARY CLINICAL RECORDS. [facility] [employer] provides no warranty or guarantee of the accuracy or completeness of information in this document.
[2024-12-11 07:38] LABS: Basophils Percent Auto 0.4 % (0.2-2.0); Eosinophils Absolute Auto 0.1 10^3/uL (0.0-0.7); Eosinophils Percent Auto 2.2 % (0.9-7.0); Hemoglobin 15.6 g/dL (14.0-18.0); Immature Granulocytes Abs Auto 0.02 10^3/uL (0.00-0.03); Immature Granulocytes Pct Auto 0.4 % (0.0-0.5); Lymphocytes Absolute Auto 0.9 10^3/uL (1.2-3.8); Lymphocytes Percent Auto 18.6 % (20.5-60.0); Mean Corpuscular HGB Conc 33.9 g/dL (29.9-35.2); Mean Corpuscular Hemoglobin 30.6 pg (25.9-34.0); Mean Corpuscular Volume 90.4 fL (80.0-94.0); Mean Platelet Volume 9.6 fL (9.5-13.5); Monocytes Absolute Auto 0.5 10^3/uL (0.3-0.8); Neutrophils Absolute Auto 3.1 10^3/uL (1.4-6.5); Neutrophils Percent Auto 67.4 % (43.0-75.0); Platelet Count 197 10^3/uL (150-450); Red Blood Count 5.09 10^6/uL (4.70-6.10); Red Cell Distribution Width 12.6 % (11.0-15.0); White Blood Count 4.6 10^3/uL (4.0-11.0)
[2024-12-11 08:13] LABS: Glucometer 130 mg/dL (74-106)
[2024-12-11] MEDS: LACTATED RINGER'S SOLUTION 1,000 ML 50 ML IV (08:25)
--- NOTE | 2024-12-11 09:40 | PC.NURSE ---
Patient was consented by BRENT Holcomb, Time out performed per protocol at 09. Applied O2 and monitor per protocol. Patient medicated per MATCH MAKER. Patient positioned and bedside ultrasound was used to locate sites. Site #1 started at 926 ended at 928. Site #2 was started at 929 and ended at 931. Patient tolerated procedure well. Patient remains on O2 and monitor until he is taken to OR. Call light placed within reach.
[2024-12-11] MEDS: CEFAZOLIN SODIUM 2 GM/50 ML D5W PREMIX IV (09:48)
--- NOTE | 2024-12-11 10:01 | XR_ITS ---
The [address] [address] Patient Name: MEREDITH VILLATORO MRN: [id number] date: 1960 Sex: M Assigned Patient Location: [facility] Current Patient Location: Accession/Order Number: [id number] Exam Date: 12/11/2024 12:25 Report Date: 12/12/2024 08:01 At the request of: ANJANA DIETZ Procedure: XR ankle LT min 3V PROCEDURE: XR ankle LT min 3V HISTORY: djd COMPARISON: XR ankle left 11/01/2024 FINDINGS: BONES:No fracture, dislocation, or significant joint space narrowing. Small calcaneal degenerative enthesophytes. SOFT TISSUES:Mild soft tissue swelling surrounding the ankle. EFFUSION:None visible. OTHER: Negative. XR/XR ankle LT min 3V IMPRESSION: 1. Mild degenerative changes. No acute bone abnormality. 2. Mild soft tissue swelling. Electronically authenticated by: KOBE DOOLEY Date: 12/12/2024 08:01
--- NOTE | 2024-12-11 10:03 | PM.ORONB ---
Brief Operative Note Date of procedure: 12/11/24 Pre-op diagnosis general: Left ankle arthritis and impingement Post-op diagnosis: same as pre-op Procedure: Procedure performed: Left ankle arthroplasty without implant and stress examination under intraoperative fluoroscopy Indications for procedure: Patient is a 64-year-old male who was referred to me by Dr. Reilly for worsening left ankle arthritis. Prior to seeing me patient did undergo ankle arthroscopy by Dr. Lopez in 2019 which patient relates did not help him much. Then under the care of Dr. Reilly he was treated with ankle bracing including an Sarai brace which does help some. He relates that his ankle pain and dysfunction is inhibiting his quality of life and uses Motrin nearly daily. In addition to the the anterior ankle pain which is activity related and is exacerbated by direct palpation and dorsiflexion he relates to [id number] sensation to his foot and ankle which is present all the time. I related to him that his pins and needle sensation is likely neuropathic pain and that further surgery may not help this which he understood but surgery may help improve his orthopedic pain which is consistent with arthritis and impingement. In addition to x-rays CT scan was obtained and it appeared that his point of maximum tenderness correlated to a large osteophyte noted on the dorsal talar neck and a smaller fractured osteophyte from the anterior aspect of the medial malleolus. Given his neuropathy he is not a good candidate for total ankle replacement and in this discussion discussed the pros and cons of ankle fusion. He related that he wished to avoid ankle fusion at this time and was hopeful that some joint sparing procedure could improve his quality of life. I recommended the above procedures but related that he has a high likelihood of recurrence and that there is a chance that like his arthroscopy may not help all that much. Patient expressed understanding and this was discussed with him again in the preoperative holding area. All questions were answered to the patient's satisfaction and I also educated him on potential risks and benefits of the procedure including nonhealing incision, infection, numbness/tingling, bleeding, pain, recurrence and need for ankle fusion. Intraoperative findings: Arthroscopy revealed a significant amount of chronic impingement soft tissue. Cartilage degeneration consistent with arthritis was noted on the talar dome and tibial plafond and without full-thickness defect. Range of motion was supple with the exception of dorsiflexion which had an abrupt limitation to neutral but not past which corresponded to bony impingement which could not be fully excised with arthroscopy alone. Large partially attached osteophyte noted on the dorsal talar neck and a smaller osteophyte noted anterior to the medial malleolus which was attached to deltoid ligament. Once the osteophytes were removed stress examination confirmed preservation of stability. Procedure in detail: Patient was identified preoperative holding by myself which time correct side and site were marked and consent was obtained. Regional anesthesia was performed by the anesthesia team and preoperative antibiotics were started. Patient brought back in the operating theater placed on table supine position and the left lower extremities prepped and draped in usual sterile fashion with a thigh tourniquet. Formal timeout was performed and the operative extremity was exsanguinated and tourniquet was inflated. Standard anterior medial and anterior lateral portals were created with a scalpel and blunt dissection was taken down to the capsule. Trocar and cannula were used to perforate the capsule and a 2.7 mm arthroscope was inserted into the anterior medial portal while a 3.5 mm aggressive shaver was placed into the anterior lateral portal. Chronic synovitic tissue was excised and the tibiotalar joint was inspected thoroughly. Although cartilage was thin there is no full-thickness defect. Osteophyte on the talar neck and medial malleolus were identified but could not be fully visualized therefore decision was made to open the ankle joint. Arthroscopic instrumentation was then removed. Incision was placed between the tibialis anterior and extensor hallucis longus tendon. Tendon sheaths were kept intact combination of sharp and blunt dissection with all bleeders being coagulated gained access to the capsule which was reflected meticulously gaining access to the ankle joint. Further dissection along the talar neck laterally was performed identifying a large osteophyte which was partially detached. An osteotome was used to excise the osteophyte and the talar neck was then further contoured with a power rasp. Surgical site was irrigated with copious saline. Then dissection was taken along the anterior plafond and medially through the anterior aspect of the medial malleolus and a detached osteophyte which was encapsulated and deltoid tendon was identified and excised sharply and passed the back table. The ankle now had full range of motion without any abrupt limitation which was observed on the table as well as under live fluoroscopy. Live fluoroscopy was then used to observe stability with varus and valgus stress as well as anterior drawer. The ankle joint was noted to be stable in all planes. Surgical site was irrigated with copious saline. The incision was then closed in layers and the tourniquet was deflated with a prompt hyperemic response. A dry sterile dressing was placed from the forefoot to the popliteal fossa followed by cam boot. Patient tolerated the procedure and anesthesia well was transferred to the recovery room with vital signs stable and brisk capillary refill to left toes. Postoperative plan: Discharge home under family's care Patient may weight-bear as tolerated in cam boot but should use crutches/walker or cane as well as a knee scooter to limit weightbearing activity Apply ice at 15-minute intervals and elevate operative ankle above the level of the heart Keep surgical dressing clean dry and intact and call the office for earlier appointment if any problems occur Prescriptions were sent to patient's pharmacy using my office EMR Follow-up in 1 week for incision check and dressing change Implants: none Anesthesia: regional and General-LMA Surgeon: Chris Granda Estimated blood loss (mL): 10 Pathology: other (ankle osteophytes) Condition: stable Disposition: PACU
[2024-12-11 12:13] LABS: Glucometer 124 mg/dL (74-106)
[2024-12-11] MEDS: HYDROMORPHONE HCL 0.5 MG/0.5 ML SYRINGE IV ×2 (12:14→12:27)
--- NOTE | 2024-12-11 12:38 | PC.NURSE ---
Medicated with IV Dilaudid for pain on top of foot; left toes numb; extremity elevated and ice behind knee
[2024-12-11] MEDS: OXYCODONE HCL 5 MG TABLET 10 MG PO (12:41)
--- NOTE | 2024-12-11 12:48 | PC.NURSE ---
Medicated as ordered for pain with IV Dilaudid
--- NOTE | 2024-12-11 12:53 | PC.NURSE ---
Medicated with oral pain medication as ordered
== END 2024-12-11 13:55 | disposition home or self-care (01) ==
PROVIDERS: Anesthesiology; Visit Provider Podiatrist Foot & Ankle Surgery
PROC: (CPT 01480; principal; 2024-12-11 08:55)
DX: M19.072 Primary osteoarthritis, left ankle and foot (principal); M25.872 Other specified joint disorders, left ankle and foot; E66.01 Morbid (severe) obesity due to excess calories; Z68.41 Body mass index [BMI] 40.0-44.9, adult; Z87.891 Personal history of nicotine dependence; K21.9 Gastro-esophageal reflux disease without esophagitis; Z79.899 Other long term (current) drug therapy
CPT/HCPCS: 01480; 27700; 36415; 64445; 64450; 73610; 76000; 76942; 82948; 85025; 88304; 88311; J0690; J1100; J1171; J1885; J2250; J2405; J2704; J2795; J3010

== ENCOUNTER 2025-02-12 08:37 | Outpatient (OUT) | payer MEDICARE, MEDICAID, SELFPAY ==
[2025-02-12 09:29] LABS: Basophils Percent Auto 0.6 % (0.2-2.0); Eosinophils Absolute Auto 0.1 10^3/uL (0.0-0.7); Eosinophils Percent Auto 1.5 % (0.9-7.0); Hematocrit 44.7 % (42.0-54.0); Hemoglobin 15.3 g/dL (14.0-18.0); Immature Granulocytes Abs Auto 0.01 10^3/uL (0.00-0.03); Immature Granulocytes Pct Auto 0.2 % (0.0-0.5); Lymphocytes Absolute Auto 0.8 10^3/uL (1.2-3.8); Lymphocytes Percent Auto 16.5 % (20.5-60.0); Mean Corpuscular HGB Conc 34.2 g/dL (29.9-35.2); Mean Corpuscular Volume 90.5 fL (80.0-94.0); Mean Platelet Volume 9.5 fL (9.5-13.5); Monocytes Absolute Auto 0.4 10^3/uL (0.3-0.8); Monocytes Percent Auto 9.5 % (1.7-12.0); Neutrophils Absolute Auto 3.3 10^3/uL (1.4-6.5); Neutrophils Percent Auto 71.7 % (43.0-75.0); Platelet Count 160 10^3/uL (150-450); Red Blood Count 4.94 10^6/uL (4.70-6.10); Red Cell Distribution Width 12.4 % (11.0-15.0); White Blood Count 4.6 10^3/uL (4.0-11.0)
--- NOTE | 2025-02-12 09:29 | PM.PRESUREVA ---
History of Present Illness History of Present Illness Chief complaint: prostate lesions Narrative: Patient presents for presurgical testing. The patient is somewhat of a poor historian, but reports a history of prostate cancer. The patient states he has intermittent dysuria and nocturia. He denies abdominal pain, nausea, vomiting, gross hematuria, or any other complaints. Review of Systems ROS Narrative REVIEW OF SYSTEMS: Negative except as stated in HPI, ten or more systems reviewed. Constitutional: No fever, chills, weakness ENT: No sore throat or epistaxis Cardiovascular: No edema, chest pain, or palpitations; admits to dyspnea on exertion Respiratory: No shortness of breath, cough, or wheezing Musculoskeletal: No new joint pain or swelling Gastrointestinal: No abdominal pain, constipation, diarrhea, or vomiting Neurological: No numbness, tingling, weakness, or headache Psychiatric: No mood changes [facility]SH [facility] Medical History (Updated 02/12/25 @ 09:13 by Michelle Castro NP) Prostate tumor ?D49.59 - Neoplasm of unspecified behavior of other genitourinary organ (ICD-10) EDWARDS (dyspnea on exertion) ?R06.09 - Other forms of dyspnea (ICD-10) Left ankle pain ?M25.572 - Pain in left ankle and joints of left foot (ICD-10) Arthritis ?M19.90 - Unspecified osteoarthritis, unspecified site (ICD-10) Migraine ?G43.909 - Migraine, unspecified, not intractable, without status migrainosus (ICD-10) GERD (gastroesophageal reflux disease) ?K21.9 - Gastro-esophageal reflux disease without esophagitis (ICD-10) Hypertension ?I10 - Essential (primary) hypertension (ICD-10) High cholesterol ?E78.00 - Pure hypercholesterolemia, unspecified (ICD-10) Poor historian ?Z78.9 - Other specified health status (ICD-10) Prostate cancer ?C61 - Malignant neoplasm of prostate (ICD-10) Neuropathy ?G62.9 - Polyneuropathy, unspecified (ICD-10) Equinus contracture of ankle ?M24.573 - Contracture, unspecified ankle (ICD-10) Osteoarthritis of left ankle and foot ?M19.072 - Primary osteoarthritis, left ankle and foot (ICD-10) Surgical History (Updated 02/09/25 @ 10:49 by Michelle Castro, [employer]) History of ankle surgery (12/11/24) ?Z98.890 - Other specified postprocedural states (ICD-10) History of esophagogastroduodenoscopy (EGD) ?Z98.890 - Other specified postprocedural states (ICD-10) History of colonoscopy ?Z98.890 - Other specified postprocedural states (ICD-10) History of gastric surgery ?Z98.890 - Other specified postprocedural states (ICD-10) Hx of prostate biopsy ?Z98.890 - Other specified postprocedural states (ICD-10) H/O transurethral resection of prostate ?Z98.890 - Other specified postprocedural states (ICD-10) ?Z90.79 - Acquired absence of other genital organ(s) (ICD-10) H/O arthroscopy (~2019) ?Z98.890 - Other specified postprocedural states (ICD-10) Family History (Updated 12/11/24 @ 08:00 by Eliza Carrillo RN) Other Family history of cancer Social History (Updated 12/11/24 @ 07:59 by Eliza Carrillo, BHAVESH) Within the past year, how often did you have a drink containing alcohol: never Score interpretation: A score less than 4 is consistent with normal alcohol consumption. Smoking status: Former smoker Non-prescribed substance use: denies use Previous occupational history: retired Highest level of school completed/degree received: high school graduate Meds Home Medications and Allergies Home Medications ?Medication ?Instructions ?Recorded ?Confirmed ?Type atorvastatin 10 mg tablet 10 mg PO DAILY 12/06/24 02/12/25 History lisinopril 10 mg tablet 10 mg PO DAILY 12/06/24 02/12/25 History mirabegron 50 mg tablet,extended 50 mg PO DAILY 12/06/24 02/12/25 History release 24 hr (Myrbetriq) tamsulosin 0.4 mg capsule (Flomax) 0.4 mg PO DAILY 12/06/24 02/12/25 History Allergies Allergy/AdvReac Type Severity Reaction Status Date / Time No Known Drug Allergies Allergy Verified 02/12/25 09:04 Exam Narrative Exam Narrative: Constitutional: Awake, alert, comfortable, well-appearing, nontoxic, interactive, vital signs as charted Head: Normocephalic, atraumatic Neck: Supple, normal appearance, normal range of motion, no meningeal signs, no lymphadenopathy Respiratory: No respiratory distress, breath sounds clear Cardiovascular: Regular rate and rhythm, strong and regular heart tones Abdomen: Nontender, normal bowel sounds, soft, no CVA tenderness Musculoskeletal: Ambulates with an antalgic gait Skin: No rashes or induration, no lesions, only visible skin inspected Neuro: No neurological deficits, normal sensation Psychiatric: Oriented ?3, normal affect Assessment and Plan Assessment and Plan (1) Prostate tumor: Plan Cystoscopy, transurethral resection of prostate lesions scheduled with Dr. Jim February 22, 2025.
[2025-02-12 09:45] LABS: INR 0.97; Partial Thromboplastin Time 26.3 sec (22.3-36.2); Prothrombin Time 10.3 sec (9.0-11.6)
[2025-02-12 09:47] LABS: Anion Gap 12.5; BUN Creatinine Ratio 18.2; Calcium 8.8 mg/dL (8.5-10.1); Carbon Dioxide 25.8 mmol/L (21.0-32.0); Chloride 107 mmol/L (98-107); Estimated GFR (African America >60 (>=60 mL/min/1.73m^2); Estimated GFR (Non-African Ame >60 (>=60 mL/min/1.73m^2); Glucose 125 mg/dL (74-106); Potassium 4.3 mmol/L (3.5-5.1); Sodium 141 mmol/L (136-145)
== END 2025-02-12 08:38 | disposition home or self-care (01) ==
LOC: PST 08:39
PROVIDERS: Visit Provider Urology
DX: Z01.812 Encounter for preprocedural laboratory examination (principal); Z01.818 Encounter for other preprocedural examination; C61 Malignant neoplasm of prostate
CPT/HCPCS: 80048; 85025; 85610; 85730; G0463

== ENCOUNTER 2025-02-22 10:02 | Day surgery (SDC) | payer MEDICARE, MEDICAID, SELFPAY ==
[2025-02-12 09:27] VITALS: BP 145/83; PULSE 61; TEMP 36.3; O2SAT 98; BMI 40.7
[2025-02-22] VITALS (24 sets, daily range): BP systolic 93–139; BP diastolic 50–90; PULSE 68–108; TEMP 36.1–36.6; O2SAT 91–98; BMI 40.8
--- OUTSIDE RECORDS SUMMARY | 2025-02-22 10:25 | XMS_ITS | CCD ---
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 Role Phone Elif Castano CNP Primary Care Provider Leila Lambert MD Unavailable Leila LAMBERT Primary Care Physician Elif Castano CNP Primary Care Provider Leila Lambert MD Unavailable NONE, XXXX Primary Care Physician Unavailab Leila Mckenna MD Unavailable [phone] Elif Castano CNP Primary Care Provider PETRA ., DR DEE Admitting Unavailable LAMBERT ., DR DEE Attending Unavailable [facility] Unava ilable LAMBERT ., DR DEE Consulting Unavailable LEYVA, MICHELLE Consulting Unavailable ESPAÑA, KEVIN Consulting Unavailable [facility] Consulting Unava ilable LAMBERT ., DR DEE Admitting Unavailable LAMBERT ., DR DEE Attending Unavailable [facility] Unava ilable LAMBERT ., DR DEE Consulting Unavailable ENGELER, DR ZAINAB Minor Consulting Unavailable ZIEBER, DR KOBE Simpson Consulting Unavailable AGUBOSIM, JOSE Consulting Unavailable ROULA, ZOLTAN Consulting Unavailable LAMBERT ., DR DEE Admitting Unavailable LAMBERT ., DR DEE Attending Unavailable [facility] Unava ilable LAMBERT ., DR DEE Consulting Unavailable Asaad, Imad Unavailable Health DeptJosé Miguel Primary Care Provider [phone] MD Fred Kirk Attending Provider Elif Castano CNP Primary Care Provider [phone] Yolette Warren MD Primary Care Provider BENITEZ, KERRI W Attending Unavailable BENITEZ, KERRI [...] Attending Unavailable LAMBERT, Leila R Attending Unavailable [place] DPM, Anjana Ross Attending Provider [phone] Fred Kirk Attending Unavailable Fred Kirk Admitting [facility]available Kalee, Anjana Ross Attending Unavailable Kalee, Anjana Ross Admitting Unavailable LAMBERT, Leila R Attending Unavailable LueMaricruz Admitting Unavailable LueMaricruz Attending Unavailable LAMBERT, Leila R Admitting Unavailable LAMBERT, Leila R Attending Unavailable LAMBERT, Leila R Attending Unavailable Services, [facility] Primary Care Provider KERRI SHAH Attending Unavailable SERVICES, [facility] Primary Care Unava ilable KERRI SHAH Attending Unavailable SERVICES, [facility] Primary Care Unava ilable Services, [facility] Primary Care Provider Eyad SMITH Elif Primary Care Provider Jhony LUX Referring Unavailable Jhony LUX Attending Unavailable [facility] Primary Care Unavailable NOELLE ROGERS Referring Unavailable SERVICES, [facility] Primary Care Unava ilable SERVICES, [facility] Primary Care Unava ilable TRACY CHAU Admitting Unavailable TRACY CHAU Attending Unavailable SERVICES, [facility] Primary Care Unava ilable SERVICES, [facility] Primary Care Unava ilable LEAH ARAMBULA Attending Unavailable SERVICES, [facility] Primary Care Unava ilable GLENNA COLLINS Consulting Unavailable ALCIRA ARANDA Admitting Unavailable DUANE SCHROEDER Attending Unavailable TRACY HILL Attending Unavaila ble TRACY HILL Referring Unavaila ble SERVICES, [facility] Primary Care Unava ilable ANJANA DIETZ Referring Unavailable SERVICES, [facility] Leila Ashby Attending Unavailable LAMBERT, Leila Simpson Attending Unavailable PETRA, Leila Simpson Attending Unavailable LAMBERT, Leila Simpson Attending Unavailable LAMBERT, Leila Simpson Attending Unavailable Maricruz Johnson Attending Unavailable Maricruz Johnson Admitting Unavailable Leila LAMBERT Attending Unavailable PETRA, Leila Simpson Admitting Unavailable Leila LAMBERT Referring Unavailable MARY LOU MENDIETA Attending Unavailable Allergies Allergy Classification Reported Allergen(s) Allergy Type Date of Onset Reaction(s) Facility (10 sources) Codeine Drug Allergy 2 [facility] Work Phone: (10 sources) Guaifenesin-Code ine Drug Allergy 3 Cough [facility] (3 sources) No Known Medication Allergies; Translations: [No Known Medication Allergies] Propensity to adverse reactions (disorder) [facility] (6 sources) Codeine / guaiFENesin; Translations: [CODEINE-GUAIFEN ESIN] Drug Allergy 2 [employer] Work Phone: Medications Current Medications Medication Drug Class(es) Dates Sig (Normalized) Sig (Original) aspirin 325 mg oral tablet (10 sources) Platelet Aggregation Inhibitor, Nonsteroidal Anti-inflammatory Drug Start: 06-23-2022 take 1 tablet by mouth in the morning RA Aspirin EC 325 MG EC tablet Take 325 mg by mouth in the morning. 06/23/2022 Active atorvastatin 10 mg oral tablet (20 sources) HMG-CoA Reductase Inhibitor Start: 01-13-2022 atorvastatin 10 mg Tab Refills(s) 0 Start Date: 03/08/23 Status: Ordered Start: 03-01-2017 take 0.5 tablet by m outh in the morning atorvastatin (LIPITOR) 20 mg tablet Take 0.5 tablets (10 mg total) by mouth in the morning. 0 03/01/2017 Active Comment on above: Take 10 mg by mouth once daily. clopidogrel 75 mg oral tablet (11 sources) P2Y12 Platelet Inhibitor Start: End: take 1 tablet by mouth in the morning clopidogrel (Plavix) 75 MG tablet Take 75 mg by mouth in the morning. 06/24/2022 Active cyclobenzaprine hydrochloride 10 mg oral tablet (20 sources) Muscle Relaxant Start: End: cyclobenzaprine 10 mg Tab Refills(s) 0 Start Date: 03/08/23 Status: Ordered dicyclomine hydrochloride 20 mg oral tablet (11 sources) Anticholinergic Start: take 1 tablet by mouth three times daily Dicyclomine 20 mg tablet Active 20 MG PO Three times daily June 22, 2024 2:02pm Take 1 tablet orally three times a day. Start: 03-01-2024 End: 06-22-2024 take 1 tablet by mouth twice daily Dicyclomine 20 mg tablet Discontinued 20 MG PO Three times daily June 22, 2024 12:54pm June 22, 2024 2:03pm Take 1 tablet orally twice a day. doxycycline hyclate 100 mg oral capsule (20 sources) Tetracycline-class Drug Start: 05-17-2023 End: 05-31-2023 take 1 capsule by mouth every twelve hours doxycycline hyclate 100 mg Cap 100 mg = 1 cap(s), Oral, q12hr, X 14 day(s), # 28 cap(s), Refills(s) 0, Pharmacy: [facility] #[id number], 160, cm, 05/17/23 12:23:00 EDT, Height/Length Dosing, [...] 1 cap(s), Oral, BID, 60 cap(s), Refill(s) [facility][id number], 160, cm, 07/15/22 8:09:00 EDT, Height/Length Dosing, [...] food 05/21/2022 Active Start: 06-08-2021 End: 03-31-2022 take 1 tablet by mouth every eight hours as needed ibuprofen (MOTRIN) 800 mg tablet Take 1 tablet by mouth every 8 hours as needed for pain. 60 tablet 2 03/31/2022 Active Comment on above: Take 800 mg by mouth . Take 1 tablet by jeniffer every 8 hours as needed for pain. indomethacin 50 mg oral capsule (11 sources) Nonsteroidal Anti-inflammatory Drug Start: End: take 1 capsule by mouth twice daily at mealtime indomethacin (INDOCIN) 50 mg capsule take 1 capsule by mouth twice a day with food or milk for 14 days 01/04/2023 Active Comment on above: take 1 capsule by mo [facility] twice a day with food or milk for 14 days lidocaine 0.05 mg/mg medicated patch (11 sources) Antiarrhythmic, Amide Local Anesthetic Start: End: apply 1 dose transdermal route once daily lidocaine (Lidoderm) 5 % patch Place 1 patch on the skin 1 (one) time each day at the same time. 02/20/2023 Active lisinopril 10 mg oral tablet (20 sources) Angiotensin Converting Enzyme Inhibitor Start: lisinopril 10 mg Tab Refills(s) 0 Start Date: 03/08/23 Status: Ordered Comment on above: Take 10 mg by mouth. meclizine hydrochloride 25 mg oral tablet (11 sources) Antiemetic Start: take 1 tablet by mouth three times daily meclizine (Antivert) 25 MG tablet take 1 tablet by mouth three times a day if needed for 10 days 08/20/2022 Active Start: 09-07-2020 End: 08-23-2024 meclizine (ANTIVERT) 25 mg t ablet Chew 1 tablet (25 mg total) and swallow 3 (three) times a day as needed for dizziness. 30 tablet 09/07/2020 08/23/2024 Discontinued (Therapy completed) methenamine hippurate 1000 mg oral tablet (1 source) Start: 06-09-2023 End: 08-08-2023 take 1 tablet by mouth twice daily methenamine hippurate 1 g oral tablet 1 gm = 1 tab(s), Oral, BID, X 30 day(s), # 60 tab(s), Refills(s) 1, Pharmacy: [facility] #[id number], 160, cm, 05/17/23 12:23:00 EDT, Height/Length Dosing, 107, kg, 05/17/23 12:23:00 EDT, Weight Dosing Start Date: 06/09/23 Stop Date: 08/08/23 Status: Ordered metoprolol tartrate 50 mg oral tablet (20 sources) beta-Adrenergic Coy Start: 01-05-2024 take 1 tablet by mouth once daily Metoprolol Tartrate 50 mg tablet Active 50 MG PO Daily January 05, 2024 12:00am Start: 12-22-2021 take 1 tablet by jeniffer [...] oral tablet (20 sources) beta3-Adrenergic Agonist Start: 12-01-2024 End: 11-26-2025 mirabegron (MYRBETRIQ) 50 mg Tb24 Take 100 mg by mouth. 12/01/2024 11/26/2025 Active Start: 10-16-2024 End: 11-26-2025 take 2 tablets by mouth once daily Myrbetriq 50 mg oral tablet, extended release 100 mg = 2 tab(s), Oral, Daily, X 90 day(s), # 180 tab(s), Refills(s) 3, Pharmacy: [facility] [id number], 160, cm, 10/16/24 12:19:00 EST, Height/Length Dosing, 117, kg, 10/16/24 12:19:00 EST, Weight Dosing Start Date: 12/01/24 Stop Date: 11/26/25 Status: Ordered Start: 04-07-2023 take 1 tablet by jeniffer th every twenty-four hours in the morning MYRBETRIQ 50 mg tablet extended release 24 hr Take 1 tablet (50 mg total) by mouth in the morning. 01/20/2024 Active Start: 03-08-2023 End: 01-14-2025 take 1 tablet by mouth once daily Mirabegron (Myrbetriq) 50 mg tablet extended release 24 hr Discontinued 50 MG PO Daily January 05, 2024 12:00am March 01, 2024 12:07pm Comment on above: Take 50 mg by mouth. naproxen 500 mg delayed release oral tablet (20 sources) Nonsteroidal Anti-inflammatory Drug Start: 02-20-2023 End: 08-23-2024 take 1 tablet by mouth in the [...] sulf-pot chloride-mag sulf 1.479-0.188- 0.225 gram tablet (2 sources) Start: 08-23-2024 sod sulf-pot chloride-mag sulf 1.479-0.188- 0.225 gram tablet Indications: Diarrhea, unspecified type Please see instructional sheet given by physicians office. 24 tablet 08/23/2024 Active tamsulosin hydrochloride 0.4 mg oral capsule (20 sources) alpha-Adrenergic Coy Start: 09-04-2022 take 1 capsule by mouth every twenty-four hours Tamsulosin 0.4 mg capsule Active 0.4 MG PO Q24H January 05, 2024 12:00am Start: 09-04-2022 take 1 capsule by mo uth twice daily tamsulosin 0.4 mg Cap 0.4 mg = 1 cap(s), Oral, BID, # 180 cap(s), Refills(s) 3, Pharmacy: [facility] [id number], 160, cm, 10/16/24 12:19:00 EST, Height/Length Dosing, 117, kg, 10/16/24 12:19:00 EST, Weight Dosing Start Date: 11/20/24 Status: Ordered Comment on above: 1 capsule. Completed/Discontinued Medications Medication Drug Class(es) Dates Sig (Normalized) Sig (Original) 24 hr alfuzosin hydrochloride 10 mg extended release oral tablet (20 sources) alpha-Adrenergic Coy Start: 02-23-2022 End: 08-23-2024 take 1 tablet by mouth once daily, then take 1 tablet by mouth every twenty-four hours alfuzosin SR (UROXATRAL) 10 mg 24 hr tablet Take 10 mg by mouth once daily. 02/23/2022 01/04/2024 Discontinued (Discontinued by another Health Care Provider) Comment on above: Take 10 mg by mouth once daily. amoxicillin 875 mg / clavulanate 125 mg oral tablet (1 source) Penicillin-class Antibacterial Start: 01-08-2025 End: 01-16-2025 take 1 tablet by mouth once in the morning amoxicillin-pot clavulanate (AUGMENTIN) 875-125 mg per tablet Take 1 tablet by mouth in the morning and 1 tablet before bedtime. Do all this for 7 days. 14 tablet 01/08/2025 01/16/2025 Discontinued (Therapy completed) atropine sulfate 0.025 mg / diphenoxylate hydrochloride [...] Comment on above: take 1 tablet by jeniffer th twice a day if needed for diarrhea ciprofloxacin 500 mg oral tablet (2 sources) Quinolone Antimicrobial Start: 01-15-2025 take 1 tablet by mouth once daily Cipro 500 mg Tab 500 mg = 1 tab(s), Oral, Daily, take one tab day before procedure and one tab after procedure, # 2 tab(s), Refills(s) 0, Pharmacy: [facility] [id number], 160, cm, 01/15/25 11:42:00 EST, Height/Length Dosing, 104.3, kg, 01/15/25 11:42:00 EST, Weight Dosing Start Date: 01/15/25 Status: Ordered 30 actuat fluticasone furoate 0.1 mg/actuat dry powder inhaler (20 sources) Corticosteroid Start: 01-05-2024 End: 03-01-2024 Fluticasone Furoate 100 mcg/actuation blister with device Discontinued 1 INH INHALATION Daily January 05, 2024 12:00am March 01, 2024 12:06pm FLUTICASONE PROP IONATE NASAL Use in the nose. Active FLUTICASONE PROP IONATE NASAL Use in the nose. 0 Active Comment on above: Use in the nose. Immodium A-D 2 mg Cap (1 source) Start: 12-22-19 take 1 capsule by mouth once daily Immodium A-D 2 mg Cap 30 EA, take 1 capsule by mouth daily, Refills(s) 0 Start Date: 12/22/21 Status: Ordered loperamide hydrochloride 2 mg oral capsule (7 sources) Opioid Agonist Start: 12-22-19 End: 01-23-20 loperamide (IMODIUM) 2 mg cap(s) Take by mouth. 12/22/2021 01/23/2025 Discontinued (Discontinued by Patient) Comment on above: Take by mouth. 24 hr nicotine 0.875 mg/hr transdermal system (1 source) Cholinergic Nicotinic Agonist Start: 06-23-20 End: 08-23-20 apply 1 dose transdermal route every hour in the morning nicotine (NICODERM CQ) 21 mg/[address] 1 patch on the skin in the morning. 7 patch 06/23/2022 08/23/2024 Discontinued (Therapy completed) Problems Active Problems Problem Classification Problem Date Documented Da te Episodic/Chronic Abdominal pain (6 sources) Abdominal pain; Translations: [Unspecified abdominal pain] Onset: 01-02-2025 03-01-2024 Episodic Acquired foot deformities (4 sources) Acquired hammer toe of left foot; Translations: [Other hammer toe(s) (acquired), left foot] Onset: 06-22-2022 06-22-2022 Chronic Cancer of prostate (20 sources) Malignant tumor of prostate; Translations: [Malignant neoplasm of prostate] Onset: 05-15-2022 Chronic Disorders of lipid metabolism (20 sources) Hypercholesterolemia; Translations: [Hyperlipidemia, unspecified] Onset: 06-22-2022 12-22-2021 Chronic Diverticulosis and diverticulitis (1 source) Diverticulosis of intestine, part unspecified, without perforation or abscess without bleeding; Translations: [Diverticulosis of intestine, part unspecified, without perforation or abscess without bleeding] Onset: 09-11-2024 Chronic Essential hypertension (20 sources) Hypertensive disorder; Translations: [Essential (primary) hypertension] Onset: 06-22-2022 12-22-2021 Chronic Gastrointestinal hemorrhage (1 source) Rectal hemorrhage Onset: 01-05-2025 Episodic Genitourinary symptoms and ill-defined conditions (20 sources) Urge incontinence; Translations: [Urge incontinence of urine] Onset: 03-08-2023 Chronic Genitourinary symptoms and ill-defined conditions (20 sources) Dysuria; Translations: [Dysuria] Onset: 07-15-2022 Episodic Hyperplasia of prostate (20 sources) Benign prostatic hypertrophy with outflow obstruction; Translations: [Prostate nodule] Onset: 06-22-2022 01-16-2022 Chronic Inflammatory conditions of male genital organs (20 sources) Epididymitis; Translations: [Epididymitis] Onset: 06-22-2022 02-27-2022 Episodic Intestinal infection (1 source) Viral gastroenteritis; Translations: [Viral intestinal infection, unspecified] 01-16-2025 Episodic Nausea and vomiting (1 source) Nausea Onset: 01-16-2025 Episodic Noninfectious gastroenteritis (2 sources) Chronic diarrhea; Translations: [Noninfective gastroenteritis and colitis, unspecified] Episodic Nonmalignant breast conditions (1 source) Gynecomastia; Translations: [Hypertrophy of breast] 07-08-2023 Episodic Osteoarthritis (20 sources) Arthritis; Translations: [Unspecified osteoarthritis, unspecified site] Onset: 06-22-2022 12-22-2021 Chronic Other connective tissue disease (4 sources) Enthesopathy of lower limb; Translations: [Other enthesopathy of left foot and ankle] 09-26-2024 Episodic Other connective tissue disease (8 sources) Synovitis and tenosynovitis; Translations: [Other synovitis and tenosynovitis, left ankle and foot] 09-26-2024 Episodic Other gastrointestinal disorders (3 sources) Irritable bowel syndrome; Translations: [Irritable bowel syndrome without diarrhea] 03-01-2024 Chronic Other gastrointestinal disorders (1 source) Irritable bowel syndrome without diarrhea; Translations: [Irritable bowel syndrome] 06-22-2024 Chronic Other male genital disorders (20 sources) Disorder of male genital organ; Translations: [Disorder of male genital organs, unspecified] Onset: 06-22-2022 12-22-2021 Episodic Other male genital disorders (1 source) Hydrocele of testis; Translations: [Hydrocele, unspecified] Onset: 09-04-2022 Episodic Other male genital disorders (1 source) Hydrocele, unspecified; Translations: [HYDROCELE UNSPECIFIED] Onset: 12-17-2022 Episodic Other male genital disorders (3 sources) H/O: male genital disorder; Translations: [Personal history of other diseases of male genital organs] Onset: 03-17-2024 Episodic Other male genital disorders (9 sources) History of prostatitis 03-17-2024 Episodic Other nervous system disorders (6 sources) Difficulty walking; Translations: [Difficulty in walking, not elsewhere classified] Onset: 06-22-2022 07-18-2024 Chronic Other nervous system disorders (4 sources) Chronic pain; Translations: [Other chronic pain] Onset: 06-22-2022 06-22-2022 Chronic Other non-traumatic joint disorders (2 sources) Arthritis of left ankle 10-12-2024 Chronic Other non-traumatic joint disorders (8 sources) Chronic ankle pain; Translations: [Pain in left ankle and joints of left foot] 09-26-2024 Episodic Other nutritional; endocrine; and metabolic disorders (4 sources) Body mass index 40+ - severely obese; Translations: [Body mass index (BMI) 40.0-44.9, adult] Onset: 08-30-2019 08-30-2019 Chronic Other screening for suspected conditions (not mental disorders or infectious disease) (9 sources) Elevated prostate specific antigen [PSA]; Translations: [Raised prostate specific antigen] Onset: 12-17-2022 Episodic Peripheral and visceral atherosclerosis (6 sources) Peripheral vascular disease; Translations: [Peripheral vascular disease, unspecified] Onset: 06-22-2022 06-22-2022 Chronic Substance-related disorders (5 sources) Nicotine dependence, cigarettes, uncomplicated; Translations: [Smokes tobacco daily] Onset: 06-22-2022 06-22-2022 Chronic Unclassified (12 sources) Finding of sensation of bladder 05-17-2023 Unclassified (1 source) Diarrhea, unspecified; Translations: [Diarrhea, unspecified] Onset: 01-05-2024 Past or Other Problems Problem Classification Problem Date Documented Da te Episodic/Chronic Cancer of prostate (3 sources) History of malignant neoplasm of prostate; Translations: [Personal history of malignant neoplasm of prostate] Onset: 08-23-2024 01-04-2024 Episodic Conditions associated with dizziness or vertigo (8 sources) Vertigo; Translations: [Dizziness and giddiness] Onset: 06-21-2022 06-22-2022 Episodic Other and unspecified benign neoplasm (1 source) Polyp of colon; Translations: [Polyp of colon] Onset: 09-11-2024 Episodic Other gastrointestinal disorders (6 sources) Diarrhea; Translations: [Diarrhea, unspecified] Onset: 08-23-2024 03-01-2024 Episodic Other gastrointestinal disorders (4 sources) Diarrhea, unspecified; Translations: [Diarrhea] Onset: 08-23-2024 03-01-2024 Episodic Other gastrointestinal disorders (1 source) Urgent desire for stool; Translations: [Fecal urgency] 08-23-2024 Episodic Other gastrointestinal disorders (1 source) Fecal urgency; Translations: [Fecal urgency] Onset: 08-23-2024 Episodic Screening and history of mental health and substance abuse codes (2 sources) Tobacco use and exposure - finding; Translations: [Personal history of nicotine dependence] Onset: 08-28-2024 01-06-2025 Episodic Results Test Name Value Interpretation Reference Range [facility] Urology Office/Clinic Noteon 02-20-2025 Urology Office/Clinic Note Urology Office/Clinic Note Chief Complaint burning w/ urnation HPI Staff Pt is today with complaints of burning with urination. Pt had a local cysto 02/06/25. Dx: rising PSA following treatment for malignant neoplasm of prostate, prostate cancer, urge incontinence, BPH with obstruction/LUTS and hx of prostatitis pt states he has burning while urinating, started about 5 days ago. pt states he has some trouble getting the stream to go and then it is a stop and go process. This is not new. Review of Systems PHQ Score Initial Depression Screen Score: 0 SCORE No fever, chills, malaise, myalgia. No pain w/ ejaculation, pain w/ BM. No blood in urine, ejaculate, or stool. No change in urgency/frequency. No discharge, odor, or change in color of urine. No perineal pain/pressure, scrotal pain, or suprapubic pain. Physical Exam Vitals & Measurements T: 37 ???C(Oral) HR: 76(Peripheral) RR: 16 BP: 118/66 HT: 63 in HT: 160 cm WT: 229.28 lb WT: 104 kg BMI: 40.63 General: nontoxic, NAD Assessment/Plan 1. Dysuria (R30.0: Dysuria) x5d. No evidence of UTI at today's appt. UA only shows hgb. Not highly suspicious for prostatitis. Will give Pyridium to use PRN. Cysto 01/15/25. Scheduled for transurethral resection of prostate tumors under anesthesia in 2 days. Told him not to take any Pyridium that morning. Ordered: E&M of Est. Patient Low 20-29 Min 98129 2. Feeling of incomplete bladder emptying (R39.14: Feeling of incomplete bladder emptying) PVR low today. Ordered: [id number] Measure Post Void residual urine and/or bladder capacity by US- non-imaging E&M of Est. Patient Low 20-29 Min 04439 Urnls Dip Stick Auto w/o Microscopy POC [id number] Orders: phenazopyridine, 200 mg = 1 tab(s), Oral, TID, PRN burning with urination, X 2 day(s), # 6 tab(s), Refills(s) 0, Pharmacy: [facility] [id number], 160, cm, 02/20/25 12:00:00 EDT, Height/Length Dosing, 104, kg, 02/20/25 12:00:00 EDT, Weight Dosing Follow-up With When Contact Information [facility] Additional Instructions: For procedure as scheduled. Patient Education Dysuria Problem List/Past Medical History Ongoing Arthritis Bilateral hydrocele BPH with obstruction/lower urinary tract symptoms Dysuria Epididymitis Feeling of incomplete bladder emptying Gross hematuria High cholesterol History of prostatitis Hypertension Nocturia Prostate cancer Prostate nodule Prostatitis Rising PSA following treatment for malignant neoplasm of prostate Urge incontinence Historical No qualifying data Procedure/Surgical History Implantation of radioactive seed into prostate (05/21/2022), MRI-US fusion guided transrectal biopsy of prostate (02/05/2022), MRI of prostate (01/08/2022), Colonoscopy. Medications atorvastatin 10 mg Tab Cipro 500 mg Tab, 500 mg= 1 tab(s), Oral, Daily cyclobenzaprine 10 mg Tab lisinopril 10 mg Tab Metoprolol tartrate 50 mg Tab Myrbetriq 50 mg oral tablet, extended release, 100 mg= 2 tab(s), Oral, Daily, 3 refills naproxen 500 mg Tab Pyridium 200 mg Tab, 200 mg= 1 tab(s), Oral, TID, PRN tamsulosin 0.4 mg Cap, 0.4 mg= 1 cap(s), Oral, BID, 3 refills Allergies No Known Medication Allergies Social History Alcohol Never., 10/16/2024 Substance Abuse Never., 10/16/2024 Tobacco Former smoker, quit more than 30 days ago Tobacco Use:. Never Smokeless Tobacco Use:. Household tobacco concerns: No. Yes, 02/20/2025 Family History Hypertension: Mother. Immunizations Vaccine Date Status Comments SARS-CoV-2 (COVID-19) Ad26 vaccine 09/2021 Recorded SARS-CoV-2 (COVID-19) mRNA-1273 vaccine 03/21/2021 Recorded 2023-05-17: 60 SARS-CoV-2 (COVID-19) Ad26 vaccine 02/2021 Recorded SARS-CoV-2 (COVID-19) mRNA-1273 vaccine 02/21/2021 Recorded 2023-05-17: 60 SARS-CoV-2 (COVID-19) Ad26 vaccine 01/2021 Recorded influenza virus vaccine, inactivated 10/02/2019 Recorded influenza virus vaccine, inactivated 09/26/2018 Recorded influenza virus vaccine, inactivated 09/17/2017 Recorded Lab Results Ambulatory Point of Care Results Bilirubin Urine Dipstick: Negative (02/20/25 12:14:00) Blood Urine Dipstick: 3+ Large (02/20/25 12:14:00) Glucose Urine Dipstick: Negative (02/20/25 12:14:00) Ketones Urine Dipstick: Negative (02/20/25 12:14:00) Leukocytes Urine Dipstick: Negative (02/20/25 12:14:00) Nitrite Urine Dipstick: Negative (02/20/25 12:14:00) Protein Urine Dipstick: Negative (02/20/25 12:14:00) Specific [place] Urine Dipstick: >=1.030 (02/20/25 12:14:00) Urine Appearance Urine Dipstick: Clear (02/20/25 12:14:00) Urobilinogen Urine Dipstick: Normal 0.2-1 EU/dl (02/20/25 12:14:00) pH Urine Dipstick: 5.5 (02/20/25 12:14:00) Normal [facility] Comment on above: Result Comment: Elec tronically Signed By: MARY LOU MENDIETA PA-C\.br\Date and Time Signed: 02/20/25 13:24 EDT Main OR Intraoperative Recor don 02-06-2025 Main OR Intraoperative Record Main OR Intraoperative Record IntraOp Document Type FTURO Summary Primary Physician: Leila LAMBERT MD Finalized Date/Time: 02/06/25 13:46:29 Pt. Name: MEREDITH VILLATORO/Sex: 1960 Male Med Rec #: [id number] Physician: Leila LAMBERT MD Financial #: [id number] Pt. Type: O Room/Bed: / Admit/Disch: 02/06/25 12:36:08 - Institution: Case Times FTURO Entry 1 Patient Times In Room 02/06/25 13:30:00 Out Room 02/06/25 13:46:00 Procedure Times Start 02/06/25 13:38:00 Stop 02/06/25 13:41:00 Anesthesia Times Last Modified By: Thania OSPINA, Sia Minor 02/06/25 13:41:19 Case Attendance FTURO Entry 1 Entry 2 Entry 3 Case Attendee PETRA OVIEDO, Leila Monteiro RN, Fernando Quigley Role Performed Surgeon - Primary Hay Farmer - Primary Scrub - Primary Time In 02/06/25 13:30:00 02/06/25 13:30:00 02/06/25 13:30:00 Time Out 02/06/25 13:46:00 02/06/25 13:46:00 02/06/25 13:46:00 Procedure CYSTOSCOPY LOCAL(.) CYSTOSCOPY LOCAL(.) CYSTOSCOPY LOCAL(.) Comments Last Modified By: Thania OSPINA, Sia Monteiro RN, Sia Monteiro RN, Sia Minor 02/06/25 Deb Minor 02/06/25 Deb Minor 02/06/25 13:41:37 13:41:37 13:41:37 Surgical Procedures FTURO Entry 1 Procedure Description Procedure CYSTOSCOPY LOCAL Modifiers . Surgeon Description CYSTOSCOPY Primary Procedure Yes Primary Surgeon Leila LAMBERT MD Start 02/06/25 13:38:00 Stop 02/06/25 13:41:00 Anesthesia Type Local Surgical Service Urology Wound Class 2 - Clean-Contaminated Last Modified By: Thania OSPINA, Sia Minor 02/06/25 13:41:36 General Case Data FTURO Pre-Care Text: Classifies surgical wound, implements aseptic technique, initiates traffic control Entry 1 Case Information OR URO 1 FT Case Level None Wound Class 2 - Clean-Contaminated Specialty Urology Preop Diagnosis PROSTATE CANCER, URGE Postop Same As Preop Yes INCONTINENCE Postop Diagnosis PROSTATE CANCER, URGE Outcomes Met? Yes INCONTINENCE Last Modified By: Thania OSPINA, Sia Minor 02/06/25 13:32:45 Post-Care Text: The patient is free from signs and symptoms of infection EU IntraOp - FTURO Pre-Care Text: Implements protective measures prior to operative or invasive procedure, confirms identity before the operative or invasive procedure, verifies operative procedure, surgical site, and laterality Entry 1 EU Perioperative Protocols Procedure(s) CYSTOSCOPY LOCAL(.) Patient Identity Birthday, ID Band Verified (select at Check, Patient least 2): Participation Consents / H and P H&P, Surgery/Procedure Operative Site N/A Verified Consent Marking Verified Surgical Site Yes Laterality Verified n/a Verified Procedure Verified Yes Correct Patient Yes Position Verified Availability Equipment, Medication Time Out Leila LAMBERT MD, Verified (If Participants Thania OSPINA, Sia Leblanc) Morenita Carrillo Kendall R Time Out Complete 02/06/25 13:37:00 Allergies Reviewed? Yes Allergies Reviewed Self/Patient With Body Position Supine Prep Area PENIS Prep Agents Betadine Solution Skin. Condition Unable to Visualize Description PARTIALLY CLOTHED AND DRAPED Additional None Specimens Collected Vitals - EU Blood Pressure 137/68 Pulse 83 bpm Respirations 18 br/min SPO2 97 % I&O - EU Outcomes Met? Yes Last Modified By: Sia Monteiro RN 02/06/25 13:38:20 Post-Care Text: The patient is free from signs and symptoms of injury caused by extraneous objects Sign Out FTURO Entry 1 Before Patient Leaves OR Nurse verbally Yes Nurse verbally Yes confirms with the confirms with the team the name of team that the procedure(s) instrument, sponge, recorded and needle counts are correct (or N/A) Nurse verbally n/a Nurse verbally n/a confirms with the confirms with the team how the team whether there specimen is labeled are any equipment (including patient problems to be name), if applicable addressed Sign Out Complete 02/06/25 13:41:00 Last Modified By: Sia Monteiro RN 02/06/25 13:41:34 Case Comments Finalized By: Sia Monteiro RN Document Signatures Signed By: Sia Monteiro RN 02/06/25 13:46 Normal [facility] Main OR Preoperative Recordo n 02-06-2025 Main OR Preoperative Record Main OR Preoperative Record Holding Area Document Type FTURO Summary Primary Physician: Leila LAMBERT MD Finalized Date/Time: 02/06/25 13:25:40 Pt. Name: MEREDITH VILLATORO/Sex: 1960 Male Med Rec #: [id number] Physician: Leila LAMBERT MD Financial #: [id number] Pt. Type: O Room/Bed: / Admit/Disch: 02/06/25 12:36:08 - Institution: Case Times Holding FTURO Pre-Care Text: Verifies consent for planned procedure, identifies individual values and wishes concerning care, includes family members in perioperative teaching Secures patient's records' belongings, and valuables, maintains patient's dignity and privacy, and maintains patient confidentiality Entry 1 In Holding 02/06/25 13:24:00 Outcomes Met? Yes Last Modified By: Kerri Pires LPN 02/06/25 13:24:43 Post-Care Text: The patient participates in decisions affecting his or her perioperative plan of care The patient's right to privacy is maintained Surgery Checklist FTURO Entry 1 Patient Birthday, ID Band Procedure History and Physical, Identification: Check, Patient Verification: Surgical Consent, With Participation Patient NPO after Midnight: n/a Personal Items: Glasses Limitations: up ad ping Complaints of Pain: No Skin Integrity Intact, [place], Warm, & Dry Vitals - EU Blood Pressure 137/68 Pulse 83 bpm Respirations 18 br/min SPO2 97 % Additional None Specimens Collected Last Modified By: Kerri Pires LPN 02/06/25 13:25:39 Finalized By: Kerri Pires LPN Document Signatures Signed By: Kerri Pires LPN 02/06/25 13:25 Normal [facility] Operative Reporton Operative Report Operative Report Patient: MEREDITH VILLATORO Age: 64 years Sex: Male : 1960 Associated Diagnoses: None Author: Leila LAMBERT MD Procedure Operative Information Details: Date/ Time: 02/06/2025 13:46:00. Pre-Op Dx: Hx of Prostate CA - Z85.46, Incomplete Bladder Emptying - R39.14. Post-Op Dx: Same. Anesthesia Type: Local. Procedure: Local Cystoscopy. Complications: None. Risks/Benefits/Info rmed Consent: Surgical risks, benefits, details of the procedure have been explained to the patient, Full informed consent has been obtained. Intraoperative Information Prepped: Patient is brought back to the endoscopy suite, Patient is placed in supine position, Patient prepped in the usual fashion with Betadine solution, 2% Xylocaine Jelly is placed per Urethra, After waiting several minutes the Cystoscope is introduced. The Urethra is: Normal. 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 It is at least 2 to 3 cm in size. The Bladder is: Trabeculated (Moderate (2), No bladder tumors.). The ureteral orifices: Show efflux of clear urine. Devices Implanted: None. Removal: Cystoscope is removed, The patient tolerated it well. Postoperative Information Discharge: Patient is discharged home with antibiotic coverage, Follow up arranged. He needs to get a transurethral resection of prostate tumors under anesthesia.. [facility] Comment on above: Result Comment: Elec tronically Signed By: PETRA OVIEDO, Leila Hurst.neema\Date and Time Signed: 02/06/25 13:48 EDT CNOVon 01-23-2025 CNOV Office Visit ([facility]) ---- MEREDITH VILLATORO ([id number]) 1960 M Date Time Provider Department 01/23/25 2:30 PM Jhony LUX [facility] During your visit today, we recorded the following information about you: Temperature Pulse Respiration Blood pressure 97.2 degrees 94/minute 18/minute 102/68 Weight 104.2 kg Jhony Lux MD 01/30/2025 9:41 AM Signed Radiation Oncology - Follow Up [...] 56 sources, 94.53 mCi INTERVAL HISTORY: Patient states he is feeling very well. Did have some recent rectal bleeding and has follow-up with GI. Continued urinary urgency concerns. No dysuria or hematuria. CT abdomen and pelvis 01/05/2025:1. Changes of the descending and proximal sigmoid colon worrisome for an ischemia. No evidence of transmural bowel compromise, at this time. Correlate clinically. 2. Prior subtotal sigmoidectomy, colorectal anastomosis. 3. Left basilar pulmonary nodules, similar to recent prior. Recommend follow-up imaging. PSA HISTORY: PSA (ng/mL) Date Value 07/03/2022 0.07 PSA. (no units) Date Value 01/10/2025 0.5 09/06/2023 <0.1 02/16/2023 0.24 ALLERGIES No Known Allergies mirabegron (MYRBETRIQ) 50 mg Tb24 Take 100 mg by mouth. tamsulosin (FLOMAX) 0.4 mg 1 capsule. indomethacin (INDOCIN) 50 mg capsule take 1 capsule by mouth twice a day with food or milk for 14 days ibuprofen (MOTRIN) 800 mg tablet Take 1 tablet by mouth every 8 hours as needed for pain. lisinopril (ZESTRIL, PRINIVIL) 10 mg tablet Take 10 mg by mouth. atorvastatin (LIPITOR) 10 mg tablet Take 10 mg by mouth once daily. metoprolol tartrate, short acting, (LOPRESSOR) 50 mg tablet Take 50 mg by mouth two times a day. FLUTICASONE PROPIONATE NASAL Use in the nose. REVIEW OF SYSTEMS: D/N = 4-6/2-3 Hematuria: none Dysuria: none Incontinence: none Urgency: moderate Catheter use: none - Total AUA Score: 20 Bowel movement frequency: 1-3/day Bowel movement quality: variable Blood per rectum: No Androgen deprivation: Previously treated with Lupron. PHYSICAL EXAM: BP 102/68 Pulse 94 Temp 36.2 ?C (97.2 ?F) Resp 18 Wt 104.2 kg (229 lb 11.5 oz) SpO2 97% BMI 38.52 kg/m? KPS: 100 General Appearance: Alert and oriented. No acute distress. Rectal exam is deferred. ASSESSMENT/PLAN: Prostate adenocarcinoma, initial PSA 2.0, biopsy Yulee score 4 + 4 = 8 (grade group 4), clinical stage T2c, N0, M0, stage IIC [T1-T2, N0, M0, PSA <20, GG 4] (AJCC 8th ed.), s/p TRUS Random and MR Targeted biopsy. Prostate cancer (C61), 2019 NCCN Risk Group: High Risk Group 1 prostate cancer. Has had a slight rise in PSA though still very low. Has continued close follow-up with Dr. Lambert. 2. Rectal bleeding, possible late radiation proctitis versus related to known prior bowel related disease. Follow-up with GI as already arranged. Signed by: MD Terrence Zhao Ariana E, RN 01/30/2025 9:41 AM Signed AUA= 20 Referring Provider: Jhony LUX [[id number]] Allergies As of Date: 01/23/2025 (No Known Allergies) Date Reviewed: 01/23/2025 Reviewed by: Sharon Ocampo RN - Fully Assessed Reason for Visit: Prostate Cancer [590] Primary Visit Diagnosis:Prostate cancer (HCC) [C61] Order(s):PSA (OUTSIDE) [8748248] Order #: [id number] PROSTATE-SPECIFIC ANTIGEN DIAGNOSTIC [SQPSA] Order #: [id number] FUTURE Prescriptions as of 01/30/2025 - mirabegron (MYRBETRIQ) 50 mg Tb24 Take 100 mg by mouth. - tamsulosin (FLOMAX) 0.4 mg 1 capsule. - indomethacin (INDOCIN) 50 mg capsule take 1 capsule by mouth twice a day with food or milk for 14 days - ibuprofen (MOTRIN) 800 mg tablet Take 1 tablet by mouth every 8 hours as needed for pain. - lisinopril (ZESTRIL, PRINIVIL) 10 mg tablet Take 10 mg by mouth. - atorvastatin (LIPITOR) 10 mg tablet Take 10 mg by mouth once daily. - metoprolol tartrate, short acting, (LOPRESSOR) 50 mg tablet Take 50 mg by mouth two times a day. - FLUTICASONE PROPIONATE NASAL Use in the nose. Problem List As Of Date 01/23/2025 Noted Resolved Prostate cancer (HCC) [C61] 01/05/2023 Medications Discontinued During This Encounter Prescriptions - loperamide (IMODIUM) 2 mg cap(s) (Discontinued) Take by mouth. Level of Service: OFFICE/OUTPATIENT ESTABLISHED LOW MDM 20 MIN [94987] Additional E/M codes: VIS (more content not included)... Normal [facility] Ambulatory Visit Summaryon 0 01-15-2025 Ambulatory Visit Summary Ambulatory Visit Summary MEREDITH VILLATORO :1960 Visit Date:01/15/2025 Ambulatory Visit Instructions Your Diagnosis Rising PSA following treatment for malignant neoplasm of prostate Prostate cancer Urge incontinence BPH with obstruction/lower urinary tract symptoms History of prostatitis Your Care Team Attending Physician - PETRA OVIEDO, Leila Simpson Primary Care Physician - NONE, XXXX This Is Your Medications List ciprofloxacin (Cipro 500 mg Tab) mirabegron (Myrbetriq 50 mg oral tablet, extended [...] (Temporal Artery) 37 ???C Heart Rate (Peripheral) 70 Respiratory Rate 18 Blood Pressure 123/73 Height 160 cm Height 63 in Weight 104.3 kg Weight 229.942 lb BMI 40.74 What to do next Scheduled Follow-Up Appointments Wednesday 10:00 AM EDT With: Where: [facility] [address] [place] [address]- Wednesday 10:15 AM EDT With: PETRA OVIEDOLeila Where: [facility] [address] [place] [address]- You Need to Schedule the Following Appointments Follow Up with Leila LAMBERT MD, URL When: Where: [facility] [address] [place] [address]- [phone] Medications What How Much When Instructions New ciprofloxacin (Cipro 500 mg Tab) 1 Tablets By Mouth Every day take one tab day before procedure and one tab after procedure Pickup at [facility] [id number] Unchanged mirabegron (Myrbetriq 50 mg oral tablet, extended release) 2 Tablets By Mouth Every day Duration: 90 Days Unchanged tamsulosin (tamsulosin 0.4 mg Cap) 1 [...] physician if questions or concerns Pharmacy Information [facility] [id number]: [address] [place], [place] [id number] [phone] Allergies No Known Medication Allergies Problems Ongoing [...] choosing us for your care. Education Materials Urinary Incontinence Urinary incontinence refers to a condition in which a person is unable to control where and when to pass urine. A person with this condition will urinate involuntarily. This means that the person urinates when he or she does not mean to. What are the causes? This condition may be caused by: ??? Medicines. ??? Infections. ??? Constipation. ??? Overactive bladder muscles. ??? Weak bladder muscles. ??? Weak pelvic floor muscles. These muscles provide support for the bladder, intestine, and, in women, the uterus. ??? Enlarged prostate in men. The prostate is a gland near the bladder. When it gets too big, it can pinch the urethra. With the urethra blocked, the bladder can weaken and lose the ability to empty properly. ??? Surgery. ??? Emotional factors, such as anxiety, stress, or post-traumatic stress disorder (PTSD). ??? Spinal cord injury, nerve injury, or other neurological conditions. ??? Pelvic organ prolapse. This happens in women when organs move out of place and into the vagina. This movement can prevent the bladder and urethra from working properly. (more content not included)... Normal [facility] Urology Office/Clinic Noteon 01-15-2025 Urology Office/Clinic Note Urology Office/Clinic Note Chief Complaint 3 month with Eligard injection and PSA HPI Staff 64 yr old male here for 3 mos w/ PSA & Eligard. Previous dx: prostate cancer (EBRT 04/24/22 & Brachytherapy 05/21/22), UUI, BPH with obstruction/LUTS, hx of prostatitis. *Myrbetriq 50mg qd and Flomax 0.4mg bid PSA: 03/17/24 - 0.2 10/03/24 - 0.6 01/10/25 - 0.5 Dysuria: a little burning off and on Incomplete bladder emptying: denies Hematuria: denies Frequency: denies Urgency: rare Nocturia: 2x Stream: no straining but does have intermittency Leaking: denies Post void dripping: denies Wearing pads/ Depends: denies Urge incontinence: occasionally Stress incontinence: denies Incontinence without Sensory Awareness: denies Abdominal pain: denies Flank pain: has back issues Sexual complaints: denies History of Present Illness [...] & Measurements T: 37 ???C(Temporal Artery) HR: 70(Peripheral) RR: 18 BP: 123/73 HT: 63 in HT: 160 cm WT: 104.3 kg WT: 229.942 lb BMI: 40.74 General Appearance: alert, no distress, well nourished, well developed male. Assessment/Plan 1. Rising PSA following treatment for malignant neoplasm of prostate (R97.21: Rising PSA following treatment for malignant neoplasm of prostate) PSA: 01/16/22 - 2.0 02/16/23 - 0.24 09/06/23- <0.1 03/17/24 - 0.2 10/03/24 - 0.6 01/10/25 - 0.5 MRI prostate w/wo con 01/08/22 [facility] - PI-RADS 4 and 5. MRI fusion bx 02/05/22 - Yulee 8 (4+4), 18 cores, grade group 4. NM Whole body bone scan 02/20/22 [facility] - No evidence of mets disease EBRT 03/23/22 - 04/24/22. Brachytherapy 05/21/22. Lupron given 02/27/22 and 09/04/22. Experienced breast tenderness and enlargement. Mammogram 05/11/23 - mild benign-appearing gynecomastia in the left retroareolar region. BI-RADS 2. PE 09/13/23: Lt breast tender upon exam. PSA is stable. No indication for ADT at this time. Will cont to monitor. -PSA in 6 mos. Consider Eligard or Lupron if PSA rises. 2. Prostate cancer (C61: Malignant neoplasm of prostate) See #1. 3. Urge incontinence (N39.41: Urge incontinence) PVR (cc): 09/13/23 - 0 10/16/24 - 33 Increased Myrbetriq 50 mg to 100 mg qd at prior OV. Reports he has to void a few minutes after already doing so, although he feels he empties. Second output is of lesser volume. Occurs with every void. Has accidents prior to initial void. Recommended cystoscopy to further evaluate. Pt willing to proceed. -Cont Myrbetriq wo changes -Will schedule cystoscopy. The risks and benefits for cystoscopy have been discussed. The risks include bleeding, infection, and irritation of the bladder and urinary channel, among others. The patient, after being informed of procedural details and after questions have been answered, wishes to proceed. Full informed consent has been obtained. Will order Local anesthesia. 4. BPH with obstruction/lower urinary tract symptoms (N40.1: Benign prostatic hyperplasia with lower urinary tract symptoms) Taking Flomax 0.4mg bid. See #3. 5. History of prostatitis (Z87.438: Personal history of other diseases of male genital organs) Has been tx'd with Doxycycline and Methenamine in the past. UA today shows trace-lysed blood (not clinically significant), neg for infection. Documentation recorded by the scribe, Molly Murray, accurately reflects the services(s) I performed and decisions made by me. Authenticated by Dr. Lambert on 01/15/2025 12:27:51. Follow-up With When Contact Information PETRA OVIEDO, Leila Simpson, URL [facility] [address] [place] [address] [phone] Additional Instructions: sched cysto, f/u in 6 mos w/ PSA Patient Education Urinary Incontinence Cystoscopy I, Molly Murray, personally scribed for Dr. Lambert on 01/15/2025 12:25:12. . Problem List/Past Medical History Ongoing Arthritis Bilateral hydrocele BPH with obstruction/lower urinary tract symptoms Dysuria Epididymitis Feeling of incomplete bladder emptying Gross hematuria High cholesterol History of prostatitis Hypertension Nocturia Prostate cancer Prostate nodule Prostatitis (more content not included)... Normal [facility] Comment on above: Result Comment: Elec tronically Signed By: Leila LAMBERT MD\.br\Date and Time Signed: 01/15/25 12:27 EST\.br\Electronically Co-Signed By: Molly Murray.neema\Date and Time Co-Signed: 01/15/25 12:26 EST CHEMISTRYOrdered By: SYSTEM SYSTEM on 01-10-2025 Prostate specific Ag [Mass/Vol] 0.5 ng/mL Normal 0.1 - 3.5 ng/mL [facility] Comment on above: Interpretive Data: T he concentration of PSA determined by different manufacturers can vary due to differences in assay methods and reagent specificity. Values obtained from different assay methods cannot be used interchangeably. The methodology used for this result was chemiluminescence using [employer] Access Hybritech PSA reagent. PSA (OUTSIDE)on 01-10-2025 [facility] PSA Totalon 01-10-2025 Prostate specific Ag [Mass/Vol] 0.5 ng/mL Normal 0.1-3.5 [facility] Comment on above: Result Comment: The concentration of PSA determined by different manufacturers can vary due to differences in assay methods and reagent specificity. Values obtained from different assay methods cannot be used interchangeably. The methodology used for this result was chemiluminescence using [employer] Access Hybritech PSA reagent. Performed By: #### 1 [id number] #### [facility] [address] [place] [address] CBC AND AUTO DIFFon 01-08-20 25 ABSOLUTE BASOPHIL 0.0 X10E9/L Normal 0.0-0.2 [facility] Comment on above: Performed By: #### C EDU CMP, 23-9 #### [facility] ([id number]) [address] [place] [address] ABSOLUTE NEUTROPHIL 3.1 X10E9/L Normal 1.5-6.6 [facility] Comment on above: Performed By: #### C BCA, CMP, -9 #### [facility] ([id number]) [address] [place] [address] Basophils/100 WBC (Bld) 0.8 % Normal [facility] Comment on above: Performed By: #### C BCA, CMP, -9 #### [facility] ([id number]) [address] [place] [address] Eosinophils (Bld) [#/Vol] 0.2 10*3/uL Normal 0.0-0.4 [facility] Comment on above: Performed By: #### C JUSTIN SORENSEN, 3, 89889-3 #### [facility] ([id number]) [address] [place] [address] Eosinophils/100 WBC (Bld) 4.5 % Normal [facility] Comment on above: Performed By: #### Bereket SORENSEN [facility], 3, #### [facility] ([id number]) [address] [place] [address] Erythrocyte distribution width (RBC) [Ratio] 13.2 % Normal 11.5-15.0 [facility] Comment on above: Performed By: #### Bereket SORENSEN [facility], 3040-01, #### [facility] ([id number]) [address] [place] [address] Hematocrit (Bld) [Volume fraction] 39.2 % Normal 39-49 [facility] Comment on above: Performed By: #### Bereket SORENSEN CMP, 3, #### [facility] ([id number]) [address] [place] [address] Hemoglobin (Bld) [Mass/Vol] 13.6 g/dL Normal 13.0-17.0 [facility] Comment on above: Performed By: #### C EDU, CMP, 3, #### [facility] ([id number]) [address] [place] [address] Lymphocytes (Bld) [#/Vol] 0.8 10*3/uL Low 1.0-3.5 [facility] Comment on above: Performed By: #### C BCA, CMP, 3040-01, #### [facility] ([id number]) [address] [place] [address] Lymphocytes/100 WBC (Bld) 17.1 % Normal [facility] Comment on above: Performed By: #### C EDU, CMP, 3040-01, #### [facility] ([id number]) [address] [place] [address] MCH (RBC) [Entitic mass] 31.1 pg Normal 27-34 [facility] Comment on above: Performed By: #### C EDU, CMP, 3040-01, #### [facility] ([id number]) [address] [place] [address] MCHC (RBC) [Mass/Vol] 34.6 g/dL Normal 32-36 [facility] Comment on above: Performed By: #### C BCA, CMP, 3040-01, #### [facility] ([id number]) [address] [place] [address] MCV (RBC) [Entitic vol] 90 fL Normal 80-100 [facility] Comment on above: Performed By: #### Bereket SORENSEN, CMP, 3040-01, #### [facility] ([id number]) [address] [place] [address] Monocytes (Bld) [#/Vol] 0.3 10*3/uL Normal 0-0.9 [facility] Comment on above: Performed By: #### C EDU, CMP, 3040-01, #### [facility] ([id number]) [address] [place] [address] Monocytes/100 WBC (Bld) 7.8 % Normal [facility] Comment on above: Performed By: #### Bereket BCA, CMP, 3040-01, #### [facility] ([id number]) [address] [place] [address] 40909 Neutrophils/100 WBC (Bld) 69.8 % Normal [facility] Comment on above: Performed By: #### C EDU, CMP, 3040-01, #### [facility] ([id number]) [address] [place] [address] 39701 Platelet mean volume (Bld) [Entitic vol] 7.6 fL Normal 7-12 [facility] Comment on above: Performed By: #### C EDU, CMP, 3040-01, #### [facility] ([id number]) [address] [place] [address] 95814 Platelets (Bld) [#/Vol] 176 10*3/uL Normal 150-450 [facility] Comment on above: Performed By: #### C EDU, CMP, 3040-01, #### [facility] ([id number]) [address] [place] [address] 21643 RBC COUNT 4.36 X10E12/L Normal 4.10-5.70 [facility] Comment on above: Performed By: #### C EDU, CMP, 3040-01, 40526-1 #### [facility] ([id number]) [address] [place] [address] 65027 WBC (Bld) [#/Vol] 4.4 10*3/uL Normal 4.0-11.0 [facility] Comment on above: Performed By: #### Bereket SORENSEN, CMP, 3040-01, 16503-7 #### [facility] ([id number]) [address] [place] [address] 28198 COMPREHENSIVE METABOLIC PANE Jay Jay 01-08-2025 Albumin [Mass/Vol] 3.5 g/dL Normal 3.2-5.3 [facility] Comment on above: Performed By: #### C BCA, CMP, 3, #### [facility] ([id number]) [address] [place] [address] 91556 ALP [Catalytic activity/Vol] 44 U/L Normal 39-130 [facility] Comment on above: Performed By: #### C BCA, CMP, 3, #### [facility] ([id number]) [address] [place] [address] 12471 ALT [Catalytic activity/Vol] 18 U/L Normal 0-40 [facility] Comment on above: Performed By: #### C BCA, CMP, 3040-01, #### [facility] ([id number]) [address] [place] [address] 26116 Anion gap [Moles/Vol] 8 mmol/L Normal 5-15 [facility] Comment on above: Performed By: #### C BCA, CMP, 3040-01, #### [facility] ([id number]) [address] [place] [address] 11321 AST [Catalytic activity/Vol] 18 U/L Normal 0-41 [facility] Comment on above: Performed By: #### C BCA, CMP, 3, #### [facility] ([id number]) [address] [place] [address] 45073 Bilirubin [Mass/Vol] 0.8 mg/dL Normal 0.3-1.2 [facility] Comment on above: Performed By: #### C BCA, CMP, 3, #### [facility] ([id number]) [address] [place] [address] 14252 Calcium [Mass/Vol] 8.7 mg/dL Normal 8.5-10.5 [facility] Comment on above: Performed By: #### C BCA, CMP, 0-3, 12622-8 #### [facility] ([id number]) [address] [place] [address] 64225 Chloride [Moles/Vol] 107 mmol/L Normal 98-109 [facility] Comment on above: Performed By: #### C BCA, CMP, 0-3, 39822-7 #### [facility] ([id number]) [address] [place] [address] 96037 CO2 [Moles/Vol] 22 mmol/L Normal 22-32 [facility] Comment on above: Performed By: #### C BCA, CMP, 3040-01, 61768-5 #### [facility] ([id number]) [address] [place] [address] 92832 Creatinine [Mass/Vol] 1.08 mg/dL Normal 0.70-1.20 [facility] Comment on above: Result Comment: METH OD TRACEABLE TO IDMS STANDARD Performed By: #### C EDU, CMP, 3040-01, 26645-7 #### [facility] ([id number]) [address] [place] [address] 01911 GFR/1.73 sq M.predicted among non-blacks MDRD (S/P/Bld) [Vol rate/Area] 76 mL/min/{1.73_m2} Normal >59 [facility] Comment on above: Result Comment: Reported eGFR is based on the CKD-EPI 1 equation that does not use a race coefficient. Performed By: #### C BCA, CMP, 3, 91067-0 #### [facility] ([id number]) [address] [place] [address] 74997 Glucose [Mass/Vol] 118 mg/dL High 65-99 [facility] Comment on above: Performed By: #### C BCA, CMP, 3039-3, 30291-8 #### [facility] ([id number]) [address] [place] [address] 92734 Potassium [Moles/Vol] 3.7 mmol/L Normal 3.5-5.0 [facility] Comment on above: Performed By: #### C EDU, CMP, 3040-01, 94305-3 #### [facility] ([id number]) [address] [place] [address] 72826 Protein [Mass/Vol] 6.3 g/dL Normal 6.0-8.0 [facility] Comment on above: Performed By: #### C EDU, CMP, 3040-01, #### [facility] ([id number]) [address] [place] [address] 30716 Sodium [Moles/Vol] 137 mmol/L Normal 134-146 [facility] Comment on above: Performed By: #### C EDU, CMP, 3040-01, #### [facility] ([id number]) [address] [place] [address] 07914 Urea nitrogen [Mass/Vol] 15 mg/dL Normal 5-27 [facility] Comment on above: Performed By: #### C EDU, CMP, 3040-01, 72577-4 #### [facility] ([id number]) [address] [place] [address] 39379 MAGNESIUMon 01-08-2025 Magnesium [Mass/Vol] 2.2 mg/dL Normal 1.8-2.6 [facility] Comment on above: Performed By: #### C BCA, CMP, 3040-01, #### [facility] ([id number]) [address] [place] [address] 25744 CBC AND AUTO DIFFon 01-07-20 25 ABSOLUTE BASOPHIL 0.0 X10E9/L Normal 0.0-0.2 [facility] Comment on above: Performed By: #### C BCA, CMP, 3040-01, #### [facility] ([id number]) [address] [place] [address] 62662 ABSOLUTE NEUTROPHIL 4.1 X10E9/L Normal 1.5-6.6 [facility] Comment on above: Performed By: #### C EDU, CMP, 3040-01, #### [facility] ([id number]) [address] [place] [address] 88633 Basophils/100 WBC (Bld) 0.8 % Normal [facility] Comment on above: Performed By: #### C EDU, CMP, 3040-01, #### [facility] ([id number]) [address] [place] [address] 36167 Eosinophils (Bld) [#/Vol] 0.2 10*3/uL Normal 0.0-0.4 [facility] Comment on above: Performed By: #### C BCA, CMP, 3040-01, #### [facility] ([id number]) [address] [place] [address] 52290 Eosinophils/100 WBC (Bld) 3.6 % Normal [facility] Comment on above: Performed By: #### Bereket BCA, CMP, 3040-01, #### [facility] ([id number]) [address] [place] [address] 19220 Erythrocyte distribution width (RBC) [Ratio] 13.5 % Normal 11.5-15.0 [facility] Comment on above: Performed By: #### Bereket BCA, CMP, 3040-01, #### [facility] ([id number]) [address] [place] [address] 76879 Hematocrit (Bld) [Volume fraction] 39.2 % Normal 39-49 [facility] Comment on above: Performed By: #### Bereket BCA, CMP, 3040-01, #### [facility] ([id number]) [address] [place] [address] 59393 Hemoglobin (Bld) [Mass/Vol] 13.7 g/dL Normal 13.0-17.0 [facility] Comment on above: Performed By: #### C JUSTIN SORENSEN, 3040-01, #### [facility] ([id number]) [address] [place] [address] 35783 Lymphocytes (Bld) [#/Vol] 0.6 10*3/uL Low 1.0-3.5 [facility] Comment on above: Performed By: #### Bereket SORENSEN CMP, 3040-01, #### [facility] ([id number]) [address] [place] [address] 98213 Lymphocytes/100 WBC (Bld) 12.0 % Normal [facility] Comment on above: Performed By: #### Bereket SORENSEN CMP, 3040-01, #### [facility] ([id number]) [address] [place] [address] 10858 MCH (RBC) [Entitic mass] 31.6 pg Normal 27-34 [facility] Comment on above: Performed By: #### Bereket SORENSEN CMP, #### [facility] ([id number]) [address] [place] [address] 44693 MCHC (RBC) [Mass/Vol] 35.0 g/dL Normal 32-36 [facility] Comment on above: Performed By: #### Bereket SORENSEN CMP, 3040-01, #### [facility] ([id number]) [address] [place] [address] 44549 MCV (RBC) [Entitic vol] 90 fL Normal 80-100 [facility] Comment on above: Performed By: #### Bereket SORENSEN CMP, 3040-01, #### [facility] ([id number]) [address] [place] [address] 89374 Monocytes (Bld) [#/Vol] 0.4 10*3/uL Normal 0-0.9 [facility] Comment on above: Performed By: #### C BCA, CMP, 3040-01, #### [facility] ([id number]) [address] [place] [address] 21661 Monocytes/100 WBC (Bld) 7.6 % Normal [facility] Comment on above: Performed By: #### Bereket SORENSEN, CMP, 3040-01, #### [facility] ([id number]) [address] [place] [address] 86914 Neutrophils/100 WBC (Bld) 76.0 % Normal [facility] Comment on above: Performed By: #### Bereket BCA, CMP, 3040-01, #### [facility] ([id number]) [address] [place] [address] 67270 Platelet mean volume (Bld) [Entitic vol] 7.8 fL Normal 7-12 [facility] Comment on above: Performed By: #### Bereket BCA, CMP, 3040-01, #### [facility] ([id number]) [address] [place] [address] 38500 Platelets (Bld) [#/Vol] 175 10*3/uL Normal 150-450 [facility] Comment on above: Performed By: #### Bereket BCA, CMP, 3040-01, #### [facility] ([id number]) [address] [place] [address] 81311 RBC COUNT 4.33 X10E12/L Normal 4.10-5.70 [facility] Comment on above: Performed By: #### Bereket BCA, CMP, 3040-01, #### [facility] ([id number]) [address] [place] [address] 29059 WBC (Bld) [#/Vol] 5.3 10*3/uL Normal 4.0-11.0 [facility] Comment on above: Performed By: #### C BCA, CMP, 3040-01, #### [facility] ([id number]) [address] [place] [address] 44846 COMPREHENSIVE METABOLIC PANE Jay Jay 01-07-2025 Albumin [Mass/Vol] 3.5 g/dL Normal 3.2-5.3 [facility] Comment on above: Performed By: #### C BCA, CMP, 3040-01, #### [facility] ([id number]) [address] [place] [address] 10791 ALP [Catalytic activity/Vol] 47 U/L Normal 39-130 [facility] Comment on above: Performed By: #### C BCA, CMP, 3040-01, #### [facility] ([id number]) [address] [place] [address] 90521 ALT [Catalytic activity/Vol] 19 U/L Normal 0-40 [facility] Comment on above: Performed By: #### C BCA, CMP, 3040-01, 72791-5 #### [facility] ([id number]) [address] [place] [address] 96247 Anion gap [Moles/Vol] 7 mmol/L Normal 5-15 [facility] Comment on above: Performed By: #### C BCA, CMP, 3040-01, #### [facility] ([id number]) [address] [place] [address] 81385 AST [Catalytic activity/Vol] 18 U/L Normal 0-41 [facility] Comment on above: Performed By: #### C BCA, CMP, 3040-01, #### [facility] ([id number]) [address] [place] [address] 50079 Bilirubin [Mass/Vol] 1.2 mg/dL Normal 0.3-1.2 [facility] Comment on above: Performed By: #### C BCA, CMP, 3040-01, #### [facility] ([id number]) [address] [place] [address] 07136 Calcium [Mass/Vol] 8.9 mg/dL Normal 8.5-10.5 [facility] Comment on above: Performed By: #### C BCA, CMP, 3040-01, #### [facility] ([id number]) [address] [place] [address] 74300 Chloride [Moles/Vol] 103 mmol/L Normal 98-109 [facility] Comment on above: Performed By: #### C BCA, CMP, 3040-01, #### [facility] ([id number]) [address] [place] [address] 38220 CO2 [Moles/Vol] 25 mmol/L Normal 22-32 [facility] Comment on above: Performed By: #### C BCA, CMP, 3040-01, #### [facility] ([id number]) [address] [place] [address] 76815 Creatinine [Mass/Vol] 1.01 mg/dL Normal 0.70-1.20 [facility] Comment on above: Result Comment: METH OD TRACEABLE TO IDMS STANDARD Performed By: #### C BCA, CMP, 3040-01, #### [facility] ([id number]) [address] [place] [address] 90140 GFR/1.73 sq M.predicted among non-blacks MDRD (S/P/Bld) [Vol rate/Area] 83 mL/min/{1.73_m2} Normal >59 [facility] Comment on above: Result Comment: Reported eGFR is based on the CKD-EPI 2020 equation that does not use a race coefficient. Performed By: #### C JUSTIN SORENSEN, 3040-01, 26980-6 #### [facility] ([id number]) [address] [place] [address] 59008 Glucose [Mass/Vol] 98 mg/dL Normal 65-99 [facility] Comment on above: Performed By: #### C JUSTIN SORENSEN, 3040-01, #### [facility] ([id number]) [address] [place] [address] 19705 Potassium [Moles/Vol] 3.9 mmol/L Normal 3.5-5.0 [facility] Comment on above: Performed By: #### C EDU [facility], 3040-01, #### [facility] ([id number]) [address] [place] [address] 93435 Protein [Mass/Vol] 6.3 g/dL Normal 6.0-8.0 [facility] Comment on above: Performed By: #### C JUSTIN SORENSEN, 3040-01, 84312-9 #### [facility] ([id number]) [address] [place] [address] 18066 Sodium [Moles/Vol] 135 mmol/L Normal 134-146 [facility] Comment on above: Performed By: #### C JUSTIN SORENSEN, 3040-01, 37656-4 #### [facility] ([id number]) [address] [place] [address] 43248 Urea nitrogen [Mass/Vol] 12 mg/dL Normal 5-27 [facility] Comment on above: Performed By: #### C JUSTIN SORENSEN, 3040-01, #### [facility] ([id number]) [address] [place] [address] 16017 HGBon 01-07-2025 Hematocrit (Bld) [Volume fraction] 39.3 % Normal 39-49 [facility] Comment on above: Performed By: #### C JUSTIN SORENSEN, 0-3, 16884-1 #### [facility] ([id number]) [address] [place] [address] 89328 Hemoglobin (Bld) [Mass/Vol] 13.7 g/dL Normal 13.0-17.0 [facility] Comment on above: Performed By: #### C JUSTIN SORENSEN, 3, #### [facility] ([id number]) [address] [place] [address] 59771 MAGNESIUMon 01-07-2025 Magnesium [Mass/Vol] 2.1 mg/dL Normal 1.8-2.6 [facility] Comment on above: Performed By: #### C JUSTIN SORENSEN, 3, 69702-1 #### [facility] ([id number]) [address] [place] [address] 39244 CBC AND AUTO DIFFon 01-06-20 25 ABSOLUTE BASOPHIL 0.0 X10E9/L Normal 0.0-0.2 [facility] Comment on above: Performed By: #### C KYLEE, CBCA, 13736-1 ####[facility] ([id number])[address] [place] [address] 82386#### 58767-8 ####[facility] ([id number])[address] [place] [address], [address], [place] [address] ABSOLUTE NEUTROPHIL 3.7 X10E9/L Normal 1.5-6.6 [facility] Comment on above: Performed By: #### C KYLEE, CBCA, ####[facility] ([id number])[address] [place] [address] 53365#### 88113-8 ####[facility] ([id number])[address], [address], [place] [address] Basophils/100 WBC (Bld) 0.9 % Normal [facility] Comment on above: Performed By: #### C KYLEE, CBCA, ####[facility] ([id number])[address] [place] [address] 23201#### 40766-3 ####[facility] ([id number])[address], [address], [place] [address] Eosinophils (Bld) [#/Vol] 0.1 10*3/uL Normal 0.0-0.4 [facility] Comment on above: Performed By: #### C KYLEE, CBCA, ####[facility] ([id number])[address] [place] [address] 37541#### 59073-0 ####[facility] ([id number])[address], [address], [place] [address] Eosinophils/100 WBC (Bld) 2.9 % Normal [facility] Comment on above: Performed By: #### C KYLEE, CBCA, ####[facility] ([id number])[address] [place] [address] 14362#### 03336-6 ####[facility] ([id number])[address], [address], [place] [address] Erythrocyte distribution width (RBC) [Ratio] 13.5 % Normal 11.5-15.0 [facility] Comment on above: Performed By: #### C KYLEE, CBCA, ####[facility] ([id number])[address] [place] [address] 78420#### 52299-6 ####[facility] ([id number])[address], [address], [place] [address] Hematocrit (Bld) [Volume fraction] 37.7 % Low 39-49 [facility] Comment on above: Performed By: #### C KYLEE, CBCA, ####[facility] ([id number])[address] [place] [address] 15943#### 84700-1 ####[facility] ([id number])[address] [facility], [address], [place] [address] Hemoglobin (Bld) [Mass/Vol] 13.1 g/dL Normal 13.0-17.0 [facility] Comment on above: Performed By: #### C KYLEE, CBCA, ####[facility] ([id number])[address] [place] [address] 96577#### 74513-6 ####[facility] ([id number])[address], [address] [place] [address] 10623 Lymphocytes (Bld) [#/Vol] 0.8 10*3/uL Low 1.0-3.5 [facility] Comment on above: Performed By: #### C KYLEE, CBCA, ####[facility] ([id number])[address] [place] [address] 80968#### 27473-6 ####[facility] ([id number])[address], [address] [place] [address] 15844 Lymphocytes/100 WBC (Bld) 15.9 % Normal [facility] Comment on above: Performed By: #### C KYLEE CBCA, ####[facility] ([id number])[address] [place] [address] 76164#### 83861-3 ####[facility] ([id number])[address] [facility], [address], [place] [address] MCH (RBC) [Entitic mass] 31.4 pg Normal 27-34 [facility] Comment on above: Performed By: #### Bereket PICHARDO CBCA, ####[facility] ([id number])[address] [place] [address] 35710#### 64978-6 ####[facility] ([id number])[address], [address], [place] [address] MCHC (RBC) [Mass/Vol] 34.7 g/dL Normal 32-36 [facility] Comment on above: Performed By: #### Bereket PICHARDO CBCA, ####[facility] ([id number])[address] [place] [address] 67175#### 15362-7 ####[facility] ([id number])[address] [facility] [address], [place] [address] MCV (RBC) [Entitic vol] 91 fL Normal 80-100 [facility] Comment on above: Performed By: #### Bereket PICHARDO CBCA, ####[facility] ([id number])[address] [place] [address] 34142#### 51523-2 ####[facility] ([id number])[address], [address], [place] [address] Monocytes (Bld) [#/Vol] 0.4 10*3/uL Normal 0-0.9 [facility] Comment on above: Performed By: #### Bereket PICHARDO CBCA, ####[facility] ([id number])[address] [place] [address] 26735#### 55538-2 ####[facility] ([id number])[facility] [address] [address] Monocytes/100 WBC (Bld) 7.7 % Normal [facility] Comment on above: Performed By: #### C KYLEE, CBCA, 47269-9 ####[facility] ([id number])[address] [place] [address] 82918#### 33024-4 ####[facility] ([id number])[address], [address] [place] [address] 85602 Neutrophils/100 WBC (Bld) 72.6 % Normal [facility] Comment on above: Performed By: #### C KYLEE, CBCA, ####[facility] ([id number])[address] [place] [address] 42969#### 92157-5 ####[facility] ([id number])[address], [address] [place] [address] 76559 Platelet mean volume (Bld) [Entitic vol] 7.8 fL Normal 7-12 [facility] Comment on above: Performed By: #### C KYLEE, CBCA, ####[facility] ([id number])[address] [place] [address] 83646#### 79309-5 ####[facility] ([id number])[address], [address] [place] [address] 78601 Platelets (Bld) [#/Vol] 153 10*3/uL Normal 150-450 [facility] Comment on above: Performed By: #### C KYLEE, CBCA, ####[facility] ([id number])[address] [place] [address] 65342#### [id number] ####[facility] ([id number])[address], [address], [place] [address] RBC COUNT 4.16 X10E12/L Normal 4.10-5.70 [facility] Comment on above: Performed By: #### C KYLEE, CBCA, 66635-9 ####[facility] ([id number])[address] [place] [address] 65323#### [id number] ####[facility] ([id number])[address], [address], [place] [address] WBC (Bld) [#/Vol] 5.1 10*3/uL Normal 4.0-11.0 [facility] Comment on above: Performed By: #### C KYLEE, CBCA, ####[facility] ([id number])[address] [place] [address] 67601#### [id number] ####[facility] ([id number])[address], [address] [place] [address] COMPREHENSIVE METABOLIC PANE Jay Jay 01-06-2025 Albumin [Mass/Vol] 3.5 g/dL Normal 3.2-5.3 [facility] Comment on above: Performed By: #### Bereket PICHARDO, CBCA, 34974-7 ####[facility] ([id number])[address] [place] [address] 71908#### [id number] ####[facility] ([id number])[address], [address] [place] [address] ALP [Catalytic activity/Vol] 45 U/L Normal 39-130 [facility] Comment on above: Performed By: #### C KYLEE, CBCA, 03956-6 ####[facility] ([id number])[address] [place] [address] 08860#### [id number] ####[facility] ([id number])[address], [address], [place] [address] ALT [Catalytic activity/Vol] 14 U/L Normal 0-40 [facility] Comment on above: Performed By: #### C KYLEE, CBCA, 06008-7 ####[facility] ([id number])[address] [place] [address] 08532#### 74204-0 ####[facility] ([id number])[address], [place] [address] Anion gap [Moles/Vol] 7 mmol/L Normal 5-15 [facility] Comment on above: Performed By: #### C KYLEE, CBCA, ####[facility] ([id number])[address] [place] [address] 60644#### 65892-2 ####[facility] ([id number])[address] [address] AST [Catalytic activity/Vol] 17 U/L Normal 0-41 [facility] Comment on above: Performed By: #### C KYLEE, CBCA, 92577-5 ####[facility] ([id number])[address] [place] [address] 62246#### [id number] ####[facility] ([id number])[address], [address], [place] [address] Bilirubin [Mass/Vol] 1.0 mg/dL Normal 0.3-1.2 [facility] Comment on above: Performed By: #### C KYLEE, CBCA, ####[facility] ([id number])[address] [place] [address] 60918#### 34896-8 ####[facility] ([id number])[address], [address], [place] [address] Calcium [Mass/Vol] 8.8 mg/dL Normal 8.5-10.5 [facility] Comment on above: Performed By: #### C KYLEE, CBCA, 26087-7 ####[facility] ([id number])[address] [place] [address] 19256#### 25307-6 ####[facility] ([id number])[address] [facility], [address], [place] [address] Chloride [Moles/Vol] 105 mmol/L Normal 98-109 [facility] Comment on above: Performed By: #### C ELKE PICHARDO, 07154-0 ####[facility] ([id number])[address] [place] [address] 59540#### 19221-7 ####[facility] ([id number])[address] [facility], [address] [place] [address] CO2 [Moles/Vol] 26 mmol/L Normal 22-32 [facility] [place] [facility] Comment on above: Performed By: #### C ELKE PICHARDO, 83675-7 ####[facility] ([id number])[address] [place] [address] 16727#### 71927-8 ####[facility] ([id number])[address] [facility], [address] [place] [address] Creatinine [Mass/Vol] 1.08 mg/dL Normal 0.70-1.20 [facility] Comment on above: Result Comment: METH OD TRACEABLE TO IDMS STANDARD Performed By: #### C ELKE PICHARDO, 15500-9 ####[facility] ([id number])[address] [place] [address] 50972#### 10315-5 ####[facility] ([id number])[address] [facility], [address] [place] [address] 61713 GFR/1.73 sq M.predicted among non-blacks MDRD (S/P/Bld) [Vol rate/Area] 76 mL/min/{1.73_m2} Normal >59 [facility] [place] [facility] Comment on above: Result Comment: Reported eGFR is based on the CKD-EPI 2020 equation that does not use a race coefficient. Performed By: #### [place], [address]-7 ####[facility] ([id number])[address] [place] [address] 72899#### 46433-2 ####[facility] ([id number])[address], [place] [address] Glucose [Mass/Vol] 113 mg/dL High 65-99 [facility] Comment on above: Performed By: #### ELKE Cuba MP, ####[facility] ([id number])[address] [place] [address] 91027#### 92146-3 ####[facility] ([id number])[address], [address], [place] [address] Potassium [Moles/Vol] 4.1 mmol/L Normal 3.5-5.0 [facility] Comment on above: Performed By: #### [place], 50170-1 ####[facility] ([id number])[address] [place] [address] 30433#### 22802-5 ####[facility] ([id number])[address], [address] [place] [address] Protein [Mass/Vol] 6.2 g/dL Normal 6.0-8.0 [facility] Comment on above: Performed By: #### ELKE Cuba MP, ####[facility] ([id number])[address] [place] [address] 32186#### 41002-3 ####[facility] ([id number])[address], [place] [address] Sodium [Moles/Vol] 138 mmol/L Normal 134-146 [facility] Comment on above: Performed By: #### C MP, CBCA, 16304-1 ####[facility] ([id number])[address] [place] [address] 38684#### 59722-9 ####[facility] ([id number])[address] [facility], [address], [place] [address] Urea nitrogen [Mass/Vol] 15 mg/dL Normal 5-27 [facility] [place] [facility] Comment on above: Performed By: #### C MP, CBCA, 31312-8 ####[facility] ([id number])[address] [place] [address] 55056#### 70751-2 ####[facility] ([id number])[address] [facility], [address], [place] [address] GI PANELon 01-06-2025 Gastrointestinal pathogens DNA and RNA panel MARTHA+non-probe (Stl) SPECIMEN SOURCE STOOL CAMPYLOBACTER Not detected (qualifier value) PLESIOMONAS Not detected (qualifier value) SALMONELLA Not detected (qualifier value) VIBRIO Not detected (qualifier value) VIBRIO CHOLERAE Not detected (qualifier value) Y. ENTEROCOLITICA Not detected (qualifier value) AGGREGATIVE E COLI Not detected (qualifier value) PATHOGENIC E COLI Not detected (qualifier value) TOXIGENIC E COLI Not detected (qualifier value) SHIGA TOXIN E COLI Not detected (qualifier value) SHIGELLA-E COLI Not detected (qualifier value) CRYPTOSPORIDIUM Not detected (qualifier value) CYCLOSPORA Not detected (qualifier value) E HISTOLYTICA Not detected (qualifier value) GIARDIA LAMBLIA Not detected (qualifier value) ADENOVIRUS Not detected (qualifier value) ASTROVIRUS Detected (qualifier value) NOROVIRUS Not detected (qualifier value) ROTAVIRUS A Not detected (qualifier value) SAPOVIRUS Not detected (qualifier value) Normal NDET [facility] [place] [facility] Comment on above: Performed By: #### C BCA, CMP, 3040-3, 00266-7 #### [facility] ([id number]) [address] [place] [address] [facility] 01-06-2025 Hematocrit (Bld) [Volume fraction] 39.9 % Normal 39-49 [facility] [place] [facility] Comment on above: Performed By: #### C EDU CMP, 3040-3, 16672-3 #### [facility] ([id number]) [address] [place] [address] Hemoglobin (Bld) [Mass/Vol] 13.8 g/dL Normal 13.0-17.0 [facility] [place] [facility] Comment on above: Performed By: #### C EDU, CMP, 3040-3, 71560-7 #### [facility] ([id number]) [address] [place] [address] Hematocrit (Bld) [Volume fraction] 39.7 % Normal 39-49 [facility] [place] [facility] Comment on above: Performed By: #### C EDU, CMP, 0-3, 28971-7 #### [facility] ([id number]) [address] [place] [address]479 Hemoglobin (Bld) [Mass/Vol] 13.5 g/dL Normal 13.0-17.0 [facility] [place] [facility] Comment on above: Performed By: #### C EDU, CMP, 3040-3, 07438-6 #### [facility] ([id number]) [address] [place] [address] Hematocrit (Bld) [Volume fraction] 39.8 % Normal 39-49 [facility] [place] [facility] Comment on above: Performed By: #### H H ####[facility] ([id number])[address] [place] [address] 29992 Hemoglobin (Bld) [Mass/Vol] 13.9 g/dL Normal 13.0-17.0 [facility] [place] [facility] Comment on above: Performed By: #### H H ####[facility] ([id number])[address] [place] [address] Lipid 1996 panelon 5 Cholesterol [Mass/Vol] 116 mg/dL Low 150-200 [facility] [place] [facility] Comment on above: Performed By: #### [place], 06089-9 ####[facility] ([id number])[address] [place] [address] 88813#### 38770-1 ####[facility] ([id number])[address] [facility], [address] [address] Cholesterol in HDL [Mass/Vol] 32 mg/dL Low >39 [facility] [place] [facility] Comment on above: Result Comment: HDL <40 mg/dL - High Risk HDL > or = 40mg/dL- Desirable HDL >60 mg/dL - Negative Risk Performed By: #### [place], [address]-8 ####[facility] ([id number])[address] [place] [address] 55219#### 87468-8 ####[facility] ([id number])[address] [address] Cholesterol in LDL [Mass/Vol] 65 mg/dL Normal <130 [facility] [place] [facility] Comment on above: Result Comment: LDL <100 mg/dL - Desirable LDL >160 mg/dL - High Risk Performed By: #### [place], 14784-4 ####[facility] ([id number])[address] [place] [address] 94893#### 02854-4 ####[facility] ([id number])[address] [facility], [address], [place] [address] Cholesterol in VLDL [Mass/Vol] 19 mg/dL Normal 0-30 [facility] [place] [facility] Comment on above: Performed By: #### MK Cuba MPA, ####[facility] ([id number])[address] [place] [address] 17319#### 16769-2 ####[facility] ([id number])0 [facility], [address], [place] [address] CHOLESTEROL:HDL 3.6 Normal 1.0-5.0 [facility] [place] [facility] Comment on above: Performed By: #### MK Cuba MPA, ####[facility] ([id number])[address] [place] [address] 32705#### 13839-8 ####[facility] ([id number])[address] [place] [address] [place] [address] Triglyceride [Mass/Vol] 97 mg/dL Normal 27-150 [facility] [place] [facility] Comment on above: Performed By: #### MK Cuba MPA, ####[facility] ([id number])[address] [place] [address] 22564#### 45899-9 ####[facility] ([id number])[address] [place] [address], [address] [place] [address] 89218 MAGNESIUMon 01-06-2025 Magnesium [Mass/Vol] 2.1 mg/dL Normal 1.8-2.6 [facility] Comment on above: Performed By: #### Bereket PICHARDO CBCA, ####[facility] ([id number])[address] [place] [address] 15138#### 09966-2 ####[facility] ([id number])[facility] [address] [place] [address] 35100 CBC AND AUTO DIFFon 01-05-20 25 ABSOLUTE BASOPHIL 0.0 X10E9/L Normal 0.0-0.2 [facility] Comment on above: Performed By: #### Bereket SORENSEN CMP, 3039-3 #### [facility] ([id number]) [address] [place] [address] ABSOLUTE NEUTROPHIL 4.9 X10E9/L Normal 1.5-6.6 [facility] Comment on above: Performed By: #### Bereket SORENSEN CMP, 3 #### [facility] ([id number]) [address] [place] [address] 98984 Basophils/100 WBC (Bld) 0.6 % Normal [facility] [place] [facility] Comment on above: Performed By: #### Bereket SORENSEN CMP, 3040-01 #### [facility] ([id number]) [address] [place] [address] 25683 Eosinophils (Bld) [#/Vol] 0.1 10*3/uL Normal 0.0-0.4 [facility] [place] [facility] Comment on above: Performed By: #### Bereket SORENSEN CMP, 3 #### [facility] ([id number]) [address] [place] [address]141 Eosinophils/100 WBC (Bld) 2.1 % Normal [facility] [place] [facility] Comment on above: Performed By: #### Bereket SORENSEN CMP, 3 #### [facility] ([id number]) [address] [place] [address] 06921 Erythrocyte distribution width (RBC) [Ratio] 13.7 % Normal 11.5-15.0 [facility] [place] [facility] Comment on above: Performed By: #### Bereket SORENSEN CMP, 3 #### [facility] ([id number]) [address] [place] [address]720 Hematocrit (Bld) [Volume fraction] 42.1 % Normal 39-49 [facility] [place] [facility] Comment on above: Performed By: #### Bereket SORENSEN CMP, 3040-01 #### [facility] ([id number]) [address] [place] [address] 18651 Hemoglobin (Bld) [Mass/Vol] 14.6 g/dL Normal 13.0-17.0 [facility] [place] [facility] Comment on above: Performed By: #### Bereket SORENSEN CMP, 3040-01 #### [facility] ([id number]) [address] [place] [address] 07392 Lymphocytes (Bld) [#/Vol] 0.7 10*3/uL Low 1.0-3.5 [facility] [place] [facility] Comment on above: Performed By: #### Bereket SORENSEN CMP, 3040-01 #### [facility] ([id number]) [address] [place] [address] 16182 Lymphocytes/100 WBC (Bld) 11.5 % Normal [facility] [place] [facility] Comment on above: Performed By: #### Bereket SORENSEN CMP, 3040-01 #### [facility] ([id number]) [address] [place] [address] 80321 MCH (RBC) [Entitic mass] 31.2 pg Normal 27-34 [facility] [place] [facility] Comment on above: Performed By: #### Bereket SORENSEN CMP, 3040-01 #### [facility] ([id number]) [address] [place] [address] 48924 MCHC (RBC) [Mass/Vol] 34.8 g/dL Normal 32-36 [facility] Comment on above: Performed By: #### Bereket SORENESN CMP, 3040-01 #### [facility] ([id number]) [address] [place] [address] 03882 MCV (RBC) [Entitic vol] 90 fL Normal 80-100 [facility] Comment on above: Performed By: #### Bereket SORENSEN CMP, 3040-3 #### [facility] ([id number]) [address] [place] [address] 11183 Monocytes (Bld) [#/Vol] 0.4 10*3/uL Normal 0-0.9 [facility] Comment on above: Performed By: #### Bereket SORENSEN CMP, 3039-3 #### [facility] ([id number]) [address] [place] [address] 19587 Monocytes/100 WBC (Bld) 6.5 % Normal [facility] Comment on above: Performed By: #### Bereket SORENSEN CMP, 3039-3 #### [facility] ([id number]) [address] [place] [address] 55578 Neutrophils/100 WBC (Bld) 79.3 % Normal [facility] Comment on above: Performed By: #### Bereket SORENSEN CMP, 3 #### [facility] ([id number]) [address] [place] [address] 70726 Platelet mean volume (Bld) [Entitic vol] 7.9 fL Normal 7-12 [facility] Comment on above: Performed By: #### Bereket SORENSEN CMP, 3040-01 #### [facility] ([id number]) [address] [place] [address] 55480 Platelets (Bld) [#/Vol] 184 10*3/uL Normal 150-450 [facility] Comment on above: Performed By: #### Bereket SORENSEN CMP, 3039-3 #### [facility] ([id number]) [address] [place] [address] 23272 RBC COUNT 4.69 X10E12/L Normal 4.10-5.70 [facility] [facility] Comment on above: Performed By: #### Bereket SORENSEN CMP, 3039-3 #### [facility] ([id number]) [address] [place] [address] 92800 WBC (Bld) [#/Vol] 6.2 10*3/uL Normal 4.0-11.0 [facility] Comment on above: Performed By: #### C JUSTIN SORENSEN, 3039-3 #### [facility] ([id number]) [address] [place] [address] 88420 COMPREHENSIVE METABOLIC PANE [place] 01-05-2025 Albumin [Mass/Vol] 4.2 g/dL Normal 3.2-5.3 [facility] Comment on above: Performed By: #### C JUSTIN SORENSEN, 3039-3 ####[facility] ([id number])[address] [place] [address] 76865 ALP [Catalytic activity/Vol] 54 U/L Normal 39-130 [facility] [place] [facility] Comment on above: Performed By: #### Bereket SORENSEN CMP, 3039-3 ####[facility] ([id number])[address] [place] [address] 99537 ALT [Catalytic activity/Vol] 19 U/L Normal 0-40 [facility] [place] [facility] Comment on above: Performed By: #### Bereket SORENSEN CMP, 3039-3 ####[facility] ([id number])[address] [place] [address] 54799 Anion gap [Moles/Vol] 7 mmol/L Normal 5-15 [facility] Comment on above: Performed By: #### C EDU CMP, 3039-3 ####[facility] ([id number])[address] [place] [address] 52240 AST [Catalytic activity/Vol] 20 U/L Normal 0-41 [facility] [place] [facility] Comment on above: Performed By: #### Bereket SORENSEN CMP, 3039-3 ####[facility] ([id number])[address] [place] [address] 71013 Bilirubin [Mass/Vol] 0.6 mg/dL Normal 0.3-1.2 [facility] Comment on above: Performed By: #### C BCA, CMP, 3040-3 ####[facility] ([id number])[address] [place] [address] 22857 Calcium [Mass/Vol] 9.2 mg/dL Normal 8.5-10.5 [facility] Comment on above: Performed By: #### C EDU CMP, 3039-3 ####[facility] ([id number])[address] [place] [address] 56541 Chloride [Moles/Vol] 103 mmol/L Normal 98-109 [facility] Comment on above: Performed By: #### C EDU CMP, 3 ####[facility] ([id number])[address] [place] [address] 43656 CO2 [Moles/Vol] 25 mmol/L Normal 22-32 [facility] [place] [facility] Comment on above: Performed By: #### C BCA, CMP, 3039-3 ####[facility] ([id number])[address] [place] [address] 44365 Creatinine [Mass/Vol] 1.02 mg/dL Normal 0.70-1.20 [facility] Comment on above: Result Comment: METH OD TRACEABLE TO IDMS STANDARD Performed By: #### C EDU CMP, 3039-3 ####[facility] ([id number])[address] [place] [address] 46324 GFR/1.73 sq M.predicted among non-blacks MDRD (S/P/Bld) [Vol rate/Area] 82 mL/min/{1.73_m2} Normal >59 [facility] Comment on above: Result Comment: Reported eGFR is based on the CKD-EPI 2020 equation that does not use a race coefficient. Performed By: #### C BCA, CMP, 0-3 ####[facility] ([id number])[address] [place] [address] [place] [address] Glucose [Mass/Vol] 111 mg/dL High 65-99 [facility] Comment on above: Performed By: #### Bereket SORENSEN CMP, 3040-3 ####[facility] ([id number])[address] [place] [address] 14375 Potassium [Moles/Vol] 3.8 mmol/L Normal 3.5-5.0 [facility] Comment on above: Performed By: #### Bereket SORENSEN CMP, 3040-3 ####[facility] ([id number])[address] [place] [address] 60811 Protein [Mass/Vol] 7.3 g/dL Normal 6.0-8.0 [facility] Comment on above: Performed By: #### Bereket SORENSEN CMP, 3040-3 ####[facility] ([id number])[address] [place] [address] 15034 Sodium [Moles/Vol] 135 mmol/L Normal 134-146 [facility] Comment on above: Performed By: #### Bereket SORENSEN CMP, 3040-3 ####[facility] ([id number])[address] [place] [address] 71301 Urea nitrogen [Mass/Vol] 17 mg/dL Normal 5-27 [facility] Comment on above: Performed By: #### Bereket SORENSEN CMP, 3040-3 ####[facility] ([id number])[address] [place] [address] ABDOMEN AND PELVIS W CONT on 01-05-2025 CT ABDOMEN AND PELVIS W CONT CT ABDOMEN AND PELVIS W CONT CT ABDOMEN AND PELVIS W CONT CLINICAL HISTORY:Lower GI bleed COMPARISON: 01/02/2045. TECHNIQUE: CT abdomen and pelvis was performed utilizing the standard protocol following the uneventful administration of 100 cc Omnipaque 300 nonionic intravenous contrast. Coronal and sagittal reformatted images were generated and reviewed. Automated exposure control was utilized. FINDINGS: Left basilar pulmonary nodules, largest which measures 1.6 x 1.1 cm. Unremarkable liver, spleen, adrenal glands, pancreas, kidneys. No acute appearing occlusion of the major visceral vasculature. Prostate fiducial markers. Subtotal sigmoidectomy, colorectal anastomosis. Mural indistinctness, hyperemia, featureless architecture, of the descending and proximal sigmoid colon. Normal appendix. No aggressive osseous lesions. Degenerative changes lumbar spine. Diffuse idiopathic skeletal hyperostosis. IMPRESSION: 1. Changes of the descending and proximal sigmoid colon worrisome for an ischemia. No evidence of transmural bowel compromise, at this time. Correlate clinically. 2. Prior subtotal sigmoidectomy, colorectal anastomosis. 3. Left basilar pulmonary nodules, similar to recent prior. Recommend follow-up imaging. All CT scans at this facility use dose modulation, iterative reconstruction, and/or weight based dosing when appropriate to reduce radiation dose to as low as reasonably achievable. THIS REPORT CONTAINS A SIGNIFICANT RESULT AND/OR RECOMMENDATION, WHICH REQUIRES THE ATTENTION OF THE LICENSED CAREGIVER RESPONSIBLE FOR THIS PATIENT. THEREFORE, I SPECIFICALLY DESIGNATED THIS REPORT TO BE TELEPHONED BY THE RADIOLOGY DEPARTMENT. FINDINGS WERE INSTRUCTED TO BE CALLED TO THE CLINICAL SERVICE ON 01/05/2025 10:36 PM 7 Finalized by Dawit Bland MD on 01/05/2025 10:36 PM Normal [facility] LIPASEon 01-05-2025 Lipase [Catalytic activity/Vol] 28 U/L Normal 17-40 [facility] Comment on above: Performed By: #### C BCA, CMP, 3040-3 ####[facility] ([id number])[address] [place] [address] 02930 Lactate (P flora) [Moles/Vol]o n 01-05-2025 LACTATE W/REFLEX 0.7 mmol/L Normal 0.4-2.0 [facility] Comment on above: Result Comment: Result did not trigger repeat Lactate, re-order if needed. Performed By: #### 3 2133-1 ####[facility] ([id number])[address] [place] [address] 37506 SHEILA FECAL OCCULT BLDon 01-05 Hemoglobin.gastrointe stinal Ql (Stl) Positive Abnormal NEG [facility] Comment on above: Performed By: #### 2 335-8 ####[facility] ([id number])[address] [place] [address] 80782 CBC AND AUTO DIFFon 01-02-20 25 ABSOLUTE BASOPHIL 0.0 X10E9/L Normal 0.0-0.2 [facility] Comment on above: Performed By: #### C EDU CMP, 3, 66608-0 #### [facility] ([id number]) [address] [place] [address] 87656 ABSOLUTE NEUTROPHIL 8.7 X10E9/L High 1.5-6.6 [facility] Comment on above: Performed By: #### Bereket SORENSEN CMP, 3040-01, 63646-2 #### [facility] ([id number]) [address] [place] [address] 17874 Basophils/100 WBC (Bld) 0.3 % Normal [facility] Comment on above: Performed By: #### Bereket SORENSEN CMP, 3040-01, 31902-5 #### [facility] ([id number]) [address] [place] [address] 95913 Eosinophils (Bld) [#/Vol] 0.1 10*3/uL Normal 0.0-0.4 [facility] Comment on above: Performed By: #### Bereket SORENSEN CMP, 3040-01, #### [facility] ([id number]) [address] [place] [address] 26856 Eosinophils/100 WBC (Bld) 0.9 % Normal [facility] Comment on above: Performed By: #### Bereket SORENSEN CMP, 3040-01, #### [facility] ([id number]) [address] [place] [address]1915 Erythrocyte distribution width (RBC) [Ratio] 13.9 % Normal 11.5-15.0 [facility] Comment on above: Performed By: #### C JUSTIN SORENSEN, 3040-01, #### [facility] ([id number]) [address] [place] [address]39 Hematocrit (Bld) [Volume fraction] 43.3 % Normal 39-49 [facility] Comment on above: Performed By: #### Bereket SORENSEN [facility], 3040-01, #### [facility] ([id number]) [address] [place] [address] 32673 Hemoglobin (Bld) [Mass/Vol] 14.8 g/dL Normal 13.0-17.0 [facility] Comment on above: Performed By: #### Bereket SORENSEN [facility], 3040-01, #### [facility] ([id number]) [address] [place] [id number] Lymphocytes (Bld) [#/Vol] 0.8 10*3/uL Low 1.0-3.5 [facility] Comment on above: Performed By: #### Bereket SORENSEN [facility], 3040-01, #### [facility] ([id number]) [address] [place] [address] 65003 Lymphocytes/100 WBC (Bld) 7.8 % Normal [facility] Comment on above: Performed By: #### Bereket SORENSEN [facility], 3040-01, #### [facility] ([id number]) [address] [place] [address] [id number] MCH (RBC) [Entitic mass] 30.8 pg Normal 27-34 [facility] Comment on above: Performed By: #### Bereket SORENSEN CMP, 3040-01, #### [facility] ([id number]) [address] [place] [address] 25833 MCHC (RBC) [Mass/Vol] 34.2 g/dL Normal 32-36 [facility] Comment on above: Performed By: #### C EDU, CMP, 3, #### [facility] ([id number]) [address] [place] [address] 96066 MCV (RBC) [Entitic vol] 90 fL Normal 80-100 [facility] Comment on above: Performed By: #### Bereket SORENSEN CMP, 3040-01, #### [facility] ([id number]) [address] [place] [address] 26834 Monocytes (Bld) [#/Vol] 0.2 10*3/uL Normal 0-0.9 [facility] Comment on above: Performed By: #### Bereket SORENSEN CMP, 3040-01, #### [facility] ([id number]) [address] [place] [address] 88297 Monocytes/100 WBC (Bld) 2.0 % Normal [facility] Comment on above: Performed By: #### Bereket SORENSEN, CMP, 3040-01, #### [facility] ([id number]) [address] [place] [address] 38023 Neutrophils/100 WBC (Bld) 89.0 % Normal [facility] Comment on above: Performed By: #### Bereket SORENSEN CMP, 3040-01, #### [facility] ([id number]) [address] [place] [address] 76910 Platelet mean volume (Bld) [Entitic vol] 7.9 fL Normal 7-12 [facility] Comment on above: Performed By: #### Bereket SORENSEN CMP, 3040-01, #### [facility] ([id number]) [address] [place] [address] 23368 Platelets (Bld) [#/Vol] 167 10*3/uL Normal 150-450 [facility] Comment on above: Performed By: #### C BCA, CMP, 3040-01, 63800-5 #### [facility] ([id number]) [address] [place] [address] 73516 RBC COUNT 4.82 X10E12/L Normal 4.10-5.70 [facility] Comment on above: Performed By: #### C BCA, CMP, 3040-01, #### [facility] ([id number]) [address] [place] [address] 09789 WBC (Bld) [#/Vol] 9.7 10*3/uL Normal 4.0-11.0 [facility] Comment on above: Performed By: #### C BCA, CMP, 3040-01, #### [facility] ([id number]) [address] [place] [address] 37480 COMPREHENSIVE METABOLIC PANE Jay Jay 01-02-2025 Albumin [Mass/Vol] 4.0 g/dL Normal 3.2-5.3 [facility] Comment on above: Performed By: #### C BCA, CMP, 3040-01, #### [facility] ([id number]) [address] [place] [address] 87236 ALP [Catalytic activity/Vol] 57 U/L Normal 39-130 [facility] Comment on above: Performed By: #### C BCA, CMP, 3040-01, 53358-7 #### [facility] ([id number]) [address] [place] [address] 79593 ALT [Catalytic activity/Vol] 23 U/L Normal 0-40 [facility] Comment on above: Performed By: #### C BCA, CMP, 3040-01, #### [facility] ([id number]) [address] [place] [address] 14941 Anion gap [Moles/Vol] 8 mmol/L Normal 5-15 [facility] Comment on above: Performed By: #### C BCA, CMP, 3040-01, #### [facility] ([id number]) [address] [place] [address] 09463 AST [Catalytic activity/Vol] 24 U/L Normal 0-41 [facility] Comment on above: Performed By: #### C BCA, CMP, 3040-01, #### [facility] ([id number]) [address] [place] [address] 43158 Bilirubin [Mass/Vol] 1.0 mg/dL Normal 0.3-1.2 [facility] Comment on above: Performed By: #### C BCA, CMP, 3040-01, #### [facility] ([id number]) [address] [place] [address] 26937 Calcium [Mass/Vol] 9.1 mg/dL Normal 8.5-10.5 [facility] Comment on above: Performed By: #### C BCA, CMP, 3040-01, #### [facility] ([id number]) [address] [place] [address] 89505 Chloride [Moles/Vol] 109 mmol/L Normal 98-109 [facility] Comment on above: Performed By: #### C BCA, CMP, 3040-01, #### [facility] ([id number]) [address] [place] [address] 43505 CO2 [Moles/Vol] 23 mmol/L Normal 22-32 [facility] Comment on above: Performed By: #### C BCA, CMP, 3040-01, #### [facility] ([id number]) [address] [place] [address] 38875 Creatinine [Mass/Vol] 1.10 mg/dL Normal 0.70-1.20 [facility] Comment on above: Result Comment: METH OD TRACEABLE TO IDMS STANDARD Performed By: #### C JUSTIN SORENSEN, 3040-01, 30841-1 #### [facility] ([id number]) [address] [place] [address] 48893 GFR/1.73 sq M.predicted among non-blacks MDRD (S/P/Bld) [Vol rate/Area] 74 mL/min/{1.73_m2} Normal >59 [facility] Comment on above: Result Comment: Reported eGFR is based on the CKD-EPI 2020 equation that does not use a race coefficient. Performed By: #### C JUSTIN SORENSEN, 3040-01, #### [facility] ([id number]) [address] [place] [address] 22896 Glucose [Mass/Vol] 131 mg/dL High 65-99 [facility] Comment on above: Performed By: #### C JUSTIN SORENSEN, 3040-01, #### [facility] ([id number]) [address] [place] [address] 32069 Potassium [Moles/Vol] 3.6 mmol/L Normal 3.5-5.0 [facility] Comment on above: Performed By: #### C JUSTIN SORENSEN, 3040-01, #### [facility] ([id number]) [address] [place] [address] 31452 Protein [Mass/Vol] 6.7 g/dL Normal 6.0-8.0 [facility] Comment on above: Performed By: #### C JUSTIN SORENSEN, 3040-01, #### [facility] ([id number]) [address] [place] [address] 47823 Sodium [Moles/Vol] 140 mmol/L Normal 134-146 [facility] Comment on above: Performed By: #### C BCA, CMP, 3040-01, 97688-0 #### [facility] ([id number]) [address] [place] [address] Urea nitrogen [Mass/Vol] 18 mg/dL Normal 5-27 [facility] Comment on above: Performed By: #### C EDU CMP, 3040-3, 88515-6 #### [facility] ([id number]) [address] [place] [address] CT ABDOMEN AND PELVIS W CONT on 01-02-2025 CT ABDOMEN AND PELVIS W CONT CT ABDOMEN AND PELVIS W CONT CLINICAL INFORMATION: Acute nonlocalized abdominal pain, nausea, vomiting. TECHNIQUE: CT abdomen and pelvis with intravenous contrast. All CT scans at this facility use dose modulation, iterative reconstruction, and/or weight based dosing when appropriate to reduce radiation dose to as low as reasonably achievable. COMPARISON: 03/07/2020. FINDINGS LOWER CHEST: Solid 1.3 cm left lower lobe pulmonary nodule, previously 0.8 cm. HEPATOBILIARY: Liver is unremarkable. Gallbladder surgically absent. No biliary dilation. PANCREAS: Pancreas unremarkable. No pancreatic ductal dilation. SPLEEN: Within normal limits. ADRENAL GLANDS: Within normal limits. KIDNEYS, URETERS, AND BLADDER: Benign right simple renal cyst requires no imaging follow-up. Hypoattenuating left renal lesions too small to characterize, appear unchanged. No collecting system dilation. Urinary bladder is unremarkable. GI TRACT AND PERITONEUM: Small and large bowel are normal in caliber. Distal colonic anastomosis. Nonvisualized appendix. No free air. VASCULATURE: Abdominal aorta is nonaneurysmal. Aortoiliac calcifications present. Portal, splenic, superior mesenteric veins patent. LYMPH NODES: Not enlarged. REPRODUCTIVE ORGANS: Prostate now present. MSK: Degenerative changes of spine. IMPRESSION: * No acute abdominopelvic process. Approved by Resident Doroteo Zambrano DO on 01/02/2025 9:42 PM Dylan Montemayor MD have personally reviewed the image(s) and agree with and/or edited the report 1 Finalized by Dylan Andrew MD on 01/02/2025 9:54 PM Normal [facility] LIPASEon 01-02-2025 Lipase [Catalytic activity/Vol] 27 U/L Normal 17-40 [facility] Comment on above: Performed By: #### C BCA, CMP, 3040-3, 44216-8 #### [facility] ([id number]) [address] [place] [address] 74196 Lactate (P flora) [Moles/Vol]o n 01-02-2025 LACTATE W/REFLEX 2.3 mmol/L High 0.4-2.0 [facility] Comment on above: Performed By: #### 3 2133-1 #### [facility] ([id number]) [address] [place] [address] 36183 MAGNESIUMon 01-02-2025 Magnesium [Mass/Vol] 2.1 mg/dL Normal 1.8-2.6 [facility] Comment on above: Performed By: #### C BCA, CMP, 3040-3, 18338-8 #### [facility] ([id number]) [address] [place] [address] 62703 SARS/FLU A+B/RSV by NAAT/Mol ecularon 01-02-2025 SARS/FLU A+B/RSV by NAAT/Molecular FLU A PCR Negative (qualifier value) FLU B PCR Negative (qualifier value) RSV by PCR Negative (qualifier value) SARS CoV 2 Not detected (qualifier value) NOTE The Xpert Xpress SARS-CoV-2/Flu/RSV Plus test is a rapid, multiplexed real-time RT-PCR test intended for the simultaneous qualitative detection and differentiation of SARS-CoV-2, influenza A, influenza B and respiratory syncytial virus (RSV) viral RNA from individuals suspected of respiratory viral infection consistent with COVID-19 by their healthcare provider. This test has not been validated in asymptomatic patients. The Xpert Xpress SARS-CoV-2 test is intended for use by qualified and trained operators who are performing tests using either [employer] or [employer] systems and is limited to laboratories that meet the CLIA requirements to perform high and moderate complexity tests. The Xpert Xpress SARS-CoV-2/Flu/RSV Plus is only for use under the Food and Drug Administration's Emergency Use Authorization. Results are for the simultaneous detection and differentiation of SARS-CoV-2, influenza A, influenza B and RSV nucleic acids in clinical specimens. SARS-CoV-2, influenza A, influenza B and RSV RNA identified by this test are generally detectable in upper respiratory samples during the acute phase of infection. Positive results are indicative of the presence of the identified virus, but do not rule out bacterial infection or co-infection with other pathogens not detected by this test. Clinical correlation with patient history and other diagnostic information is necessary to determine patient infection status. The agent detected may not be the definite cause of disease. Negative results do not preclude SARS-CoV-2, influenza A, influenza B and RSV infection and should not be used as the sole basis for treatment or other patient management decisions. Negative results must be combined with clinical observations, patient history and epidemiological information. An Invalid result may occur with specimen-associated inhibition unable to be resolved with specimen repeat. Fact Sheet for Healthcare Providers: https://www.fda.gov /media/827577/downl oad Fact Sheet for Patients: https://www.fda.gov /media/715239/downl oad Normal [facility] Comment on above: Performed By: #### C OVFLR #### [facility] ([id number]) [address] [place] [address]107 [facility] 12-11-2024 L Specimen: [id number] Received: 12/13/24 Status: YEHUDA Louise Num: [id number] Spec Type: Surgical Subm Dr: Anjana Dietz,DPM, MS Tissues: A Bone Fragments - Other than Path Fracture (OSTEOPHYTES LT ANKLE) Procedures: HE, Gross/Micro L3, Decalcification Age/ Patient Sex Location Account Attending Physician Meredith Villatoro 64/M [facility] [id number] Anjana Dietz DPM, MS SPEC NUM: [id number] RECD: 12/13/24 STATUS: YEHUDA DANI NUM: [id number] MICHEL: 12/11/24-[address] [facility] [address]: Anjana Dietz DPM, MS ENTERED: 12/13/[address]: Dariel,Lab SPEC TYPE: Surgical DEPT: RACQUEL KEITH ENTERED BY: [id number] RECV BY: [id number] ORDERED: HE, Gross/Micro L3, Decalcification ORDERED: HE, Gross/Micro L3, Decalcification Pathological Diagnosis Bone fragments, left ankle and foot, excisions: -Apparent irregular nodular osteophytic bony fragments with moderately associated bony remodeling, including severe erosion of the markedly thickened articular chondroid surfaces, focal moderate irregular cortical and trabecular thickening, patchy mild fibrosis and serous degeneration in the medullary spaces, and 1 minute ganglionic microcyst in periosteal soft tissue, consistent with the severe degenerative osteoarthritis of the left ankle joint with the large associated formation of degenerative osteophytic spurs Clinical Information Primary osteoarthritis left ankle and foot Gross Description Part A is received in formalin labeled with the patients name, date of , and osteophytes left ankle are 2 han-josue, granular, ovoid portions of bone, 1.1 x 0.8 x 0.7 cm, and 1.8 x 1.5 x 1.1 cm. The specimens are sectioned to reveal han-josue, firm and uniform cut surfaces. Pensionholder Information Clerk sections are submitted in a single cassette after decalcification. (1, , BS A)HAKEEM Specimen: BS Received: 12/13/24 Status: YEHUDA Louise Num: [id number] Spec Type: Surgical Subm Dr: Anjana Dietz,DPM, MS Tissues: A Bone Fragments - Other than Path Fracture (OSTEOPHYTES LT ANKLE) Procedures: LOLA, Gross/Micro L3, Decalcification Patient: Meredith Villatoro [id number] (Continued) Specimen: [id number] Received: 12/13/24 (Continued) Signed (signatur e on file) Aimee Maloney MD 12/15/24 1714 Specimen: [id number] Received: 12/13/24 Status: YEHUDA Louise Num: [id number] Spec Type: Surgical Subm Dr: Anjana Dietz,BENITO, MS Tissues: A Bone Fragments - Other than Path Fracture (OSTEOPHYTES LT ANKLE) Procedures: LOLA, Gross/Micro L3, Decalcification Patient: Meredith Villatoro [id number] (Continued) Specimen: [id number] Received: 12/13/24 (Continued) Microscopic Description Microscopic examinations are performed supporting the above interpretation CPT Codes 83506 12858 Specimen: [id number] Received: 12/13/24 Status: YEHUDA Louise Num: [id number] Spec Type: Surgical Subm Dr: Anjana Dietz,BENITO, MS Tissues: A Bone Fragments - Other than Path Fracture (OSTEOPHYTES LT ANKLE) Procedures: LOLA, Gross/Micro L3, Decalcification Patient: Meredith Villatoro [id number] (Continued) Signed (signatur e on file) Aimee Maloney MD 12/15/241713 Normal [facility] [place] [facility] Ambulatory Visit Summaryon 12-16-2023 Ambulatory Visit Summary Ambulatory Visit Summary IRVINGMEREDITH CORTES :1960 Visit Date:10/16/2024 Ambulatory Visit Instructions Your Diagnosis Rising PSA following treatment for malignant neoplasm of prostate Prostate cancer Urge incontinence BPH with obstruction/lower urinary tract symptoms History of prostatitis Your Care Team Attending Physician - Leila LAMBERT MD Primary Care Physician - NONE, XXXX This [...] AM EST With: Where: [facility] [address] [place] [address]- Wednesday 11:15 AM EST With: Leila LAMBERT MD Where: [facility] [address] [place] [address]- You Need to Schedule the Following Appointments Follow Up with Leila LAMBERT MD, URL When: Comments: 3 mos w/ PSA and Lupron Where: [facility] [address], [place] [address] [phone] Medications What How Much When Instructions Changed mirabegron (Myrbetriq 50 mg oral tablet, extended release) 2 Tablets By Mouth Every day Duration: 90 Days Pickup at [facility] [id number] Unchanged tamsulosin (tamsulosin 0.4 mg Cap) 1 [...] physician if questions or concerns Pharmacy Information [facility] [id number]: [address] [place], [place] [id number] [phone] Allergies No Known Medication Allergies Problems Ongoing [...] semen. ? (more content not included)... Normal [facility] Office/Clinic Noteon 10-16-2024 Urology Office/Clinic Note [...] - 0.6 MRI prostate w/wo con 01/08/22 [facility] - PI-RADS 4 and 5. MRI fusion bx 02/05/22 - Yulee 8 (4+4), 18 cores, grade group 4. NM Whole body bone scan 02/20/22 [facility] - No evidence of mets disease EBRT [...] Malignant neoplasm of prostate) See #1. Ordered: 68655 Measure Post Void residual urine and/or bladder capacity by US- non-imaging E&M of Est. Patient Moderate 30-39 Min 70472 PSA Total Urnls Dip Stick Auto w/o Microscopy POC 04451 3. Urge incontinence (N39.41: Urge incontinence) PVR [...] E&M of Est. Patient Moderate 30-39 Min 98623 4. BPH with obstruction/lower urinary tract symptoms (N40.1: Benign prostatic hyperplasia with lower urinary tract symptoms) Taking Flomax 0.4mg bid. See #3. Ordered: E&M of Est. Patient Moderate 30-39 Min 89008 5. History of prostatitis (Z87.438: Personal history of other diseases of male genital organs) Has been tx'd with Doxycycline and Methenamine in the past. [1] UA today negative for blood and infection. Ordered: E&M of Est. Patient Moderate 30-39 Min 68343 Orders: mirabegron, 100 mg = 2 tab(s), Oral, Daily, X 90 day(s), # 180 tab(s), Refills(s) 3, Pharmacy: [facility] [id number], 160, cm, 10/16/24 12:19:00 EST, Height/Length Dosing, 117, kg, 10/16/24 12:19:00 EST, Weight Dosing Follow-up With When Contact Information Leila LAMBERT MD, URL [facility] [address], [place] [address] [phone] Additional Instructions: 3 mos w/ PSA and [...] tract sympt (more content not included)... Normal [facility] Comment on above: Result Comment: Elec tronically [...] for this result was chemiluminescence using Sumi mymission2's Access Hybritech PSA reagent. PSA Totalon 10-03-2024 Prostate specific Ag [Mass/Vol] 0.6 ng/mL Normal 0.1-3.5 [facility] Comment on above: Result Comment: The concentration of PSA determined by different manufacturers can vary due to differences in assay methods and reagent specificity. Values obtained from different assay methods cannot be used interchangeably. The methodology used for this result was chemiluminescence using Sumi Crorina's Access Hybritech PSA reagent. Performed By: #### 1 [id number] #### [facility] [address] [place] [address] Surgical Pathologyon 024 Surgical Pathology Normal [facility] Comment on above: Result Comment: [facility] [address] [place] [address] Surgical Pathology Consultation Patient Name:MEREDITH VILLATORO:1960 (Age: 64)Gender:MTaken:4Reported:09/14/2024hysician(s):Kyle Chau D.O. ([phone])Copy To: Rec. #:[id number]: #[id number] Final Pathologic Diagnosis 1. Sigmoid colon polyp: Hyperplastic polyp. 2. Splenic flexure polyp: Tubular adenoma fragments. 3. Random colon biopsy: Unremarkable colonic mucosa. Negative for microscopic colitis or active colitis. Negative for dysplasia or malignancy. 4. Anastomosis biopsy: Colonic mucosa with mild hyperplasia. Negative for microscopic colitis or active colitis. Negative for dysplasia or malignancy. Report Electronically Signed Out 09/14/2024Berenice Weir MD Interpretation performed at [facility], [address] [facility] [address], License number: [id number]. Clinical History Diarrhea. Gross Description 1. Received in formalin labeled francis VILLATORO are two josue-han, focally erythematous, friable, 0.3 and 0.4 cm polypoid fragments. The specimen is entirely submitted in a single cassette. (1, ns, [id number], m4) JG 2. Received in formalin labeled IRVING, splenic are two josue-han, focally erythematous, friable, 0.3 and 0.4 cm polypoid fragments with adherent vegetative material. The polyps are entirely submitted in a single cassette with the vegetative material retained. (1, ns, [id number], m4) JG 3. Received in formalin labeled IRVING, random BX are two josue-han, focally erythematous, friable, 0.4 cm each soft tissue bits. The specimen is entirely submitted in a single cassette. (1, ns, [id number], m4) JG 4. Received in formalin labeled IRVING, anastomosis are two josue-han, focally erythematous, friable, 0.2 and 0.3 cm soft tissue bits. The specimen is entirely submitted in a single cassette. (1, ns, [id number], m4) [facility]/09/12/2024NS Specimen(s) Received 1: Sigmoid colon polyp 2: Splenic flexure polyp 3: Random colon biopsy 4: Anastomosis biopsy Fee Codes(s): 1; 49773 2; 17133 3; 40649 4; 26486 CT LOW DOSE LUNG SCREENINGon 08-29-2024 CT [...] aided detection for pulmonary nodules?was performed utilizing [employer] software.? FINDINGS: Diagnostic quality: Satisfactory. Some motion [...] 2:35 PM 3 LDCT 6 Mo Normal [facility] MR ANKLE LEFT WO IV CONTRAST on [...] to muscle strain. ELECTRONICALLY SIGNED BY: Dylan Ramos DO Normal Not Available Ambulatory Visit Summaryon 0 03-17-2024 Ambulatory Visit Summary MEREDITH VILLATORO :1960 Visit Date:03/17/2024 Ambulatory Visit Instructions Your Diagnosis Prostate cancer Urge incontinence BPH with obstruction/lower urinary tract symptoms History of prostatitis Your Care Team Attending Physician - Leila LAMBERT MD Primary Care Physician - NONE, XXXX This [...] Follow-Up Appointments Wednesday 9:45 AM EDT With: Leila LAMBERT MD Where: [facility] Normal History of prostatitis, Required & Missing, [...] under a microscope. This is called the Yulee score and the total score can range from 6?10, indicating how likely it is that the cancer will spread (metastasize) to other parts of the body. The higher the score, the greater the likelihood that the cancer will spread.\.br\ ? \.br\ Yulee 6 or lower: This indicates that the cancer cells look similar to normal prostate cells (well differentiated).\ .br\ ? \.br\ Yulee 7: This indicates that the cancer cells [...] cells or stops them from multiplying. It [facility] CHEMISTRYOrdered By: SYSTEM SYSTEM on 03-17-2024 Prostate [...] specific Ag [Mass/Vol] 0.2 ng/mL Normal 0.1-3.5 [facility] Comment on above: Result Comment: The concentration of PSA determined by different manufacturers can vary due to differences in assay methods and reagent specificity. Values obtained from different assay methods cannot be used interchangeably. The methodology used for this result was chemiluminescence using Sumi Jordan's Access Hybritech PSA reagent. Performed By: #### 1 [id number] #### [facility] [address] [place] [address] Patient Educationon 03-17-20 Patient Education Oncology Prostate Cancer The prostate [...] to normal prostate cells (moderately differentiated). ? Yulee 8, 9, or 10: This indicates that [...] external be (more content not included)... Normal [facility] Office/Clinic Noteon 03-17-2024 Urology Office/Clinic Note [...] today's appointment. MRI prostate w/wo con 01/08/22 [facility] - PI-RADS 4 and 5. MRI fusion [...] Information [facility], Leila Simpson, URL [address] [id number]- Additional Instructions: 6 mos w/ PSA Patient Education Prostate Cancer ILolly, personally scribed for Dr. Lambert on 03/17/2024 12:21:35. . Documentation recorded by the scribeLolly, accurately reflects the services(s) I performed and [...] Status Comments (more content not included)... Normal [facility] Comment on above: Result Comment: Elec tronically Signed By: Leila LAMBERT MD\.br\Date and Time Signed: 03/17/24 12:26 EDT\.br\Electronically Co-Signed By: Lolly Ried.br\Date and Time Co-Signed: 03/17/24 12:21 EDT Jay Jay 01-05-2024 L Specimen: [id number] Received: 01/05/24 Status: YEHUDA Louise Num: [id number] Spec Type: Surgical Subm Dr: Fred Kirk MD Tissues: A Colon Biopsy (RANDOM COLON BX R/O MICROSOP) B Colon Biopsy (ANASTOMATIC BX R/O ADENOMA) Procedures: HE/4, Gross/Micro L4/2 Age/ Patient Sex Location Account Attending Physician IrvingMeredith 63/M [id number] Fred Kirk MD SPEC NUM: [id number] RECD: 01/05/24 STATUS: YEHUDA LOUISE NUM: [id number] MICHEL: 01/05/[address]: Fred Kirk MD ENTERED: 01/05/24 [facility] DR: SPEC TYPE: Surgical DEPT: S ORDERED: [...] B1. Specimen: [id number] Received: 01/05/24 Status: YEHUDA [place] Num: [id number] Spec Type: Surgical Subm Dr: Fred Kirk MD Tissues: A Colon Biopsy (RANDOM COLON BX R/O MICROSOP) B Colon Biopsy (ANASTOMATIC BX R/O ADENOMA) Procedures: LOLARyan, Gross/Micro L4/2 Patient: Meredith Villatoro [id number] (Continued) Specimen: [id number] Received: 01/05/24 (Continued) Signed (signatur e on file) Clarence Valerio MD 01/08/24 1150 Specimen: [id number] Received: 01/05/24 Status: YEHUDA [place] Num: [id number] Spec Type: Surgical Subm Dr: Fred Kirk MD Tissues: A Colon Biopsy (RANDOM COLON BX R/O MICROSOP) B Colon Biopsy (ANASTOMATIC BX R/O ADENOMA) Procedures: HE/Ryan, Gross/Micro L4/2 Patient: Meredith Villatoro [id number] (Continued) Specimen: [id number] Received: 01/05/24 (Continued) CPT Codes 38050q4 Specimen: [id number] Received: 01/05/24 Status: YEHUDA [place] Num: [id number] Spec Type: Surgical Subm Dr: Fred Kirk MD Tissues: A Colon Biopsy (RANDOM COLON BX R/O MICROSOP) B Colon Biopsy (ANASTOMATIC BX R/O ADENOMA) Procedures: Raymond WOLFE/Radha L4/2 Patient: Meredith Villatoro [id number] (Continued) Signed (signatur e on file) Clarence Valerio MD 01/08/24 6459 Normal [facility] Basophils Auto (Bld) [#/Vol] Ordered By: Fred Kirk on 11-30-2023 Basophils (Bld) [#/Vol] 0.0 10*3/uL 0.0-0.2 [facility] Basophils/100 WBC Auto (Bld) Ordered By: Fred Kirk on 11-30-2023 Basophils/100 WBC (Bld) 0.8 % . [facility] Eosinophils Auto (Bld) [#/Vo l]Ordered By: Fred Kirk on 11-30-2023 Eosinophils (Bld) [#/Vol] 0.1 10*3/uL 0.0-0.45 [facility] Eosinophils/100 WBC Auto (Bl d)Ordered By: Fred Kirk on 11-30-2023 Eosinophils/100 WBC (Bld) 1.5 % . [facility] Erythrocyte distribution wid th Auto (RBC) [Ratio]Ordered By: Fred Kirk on 11-30-2023 Erythrocyte distribution width (RBC) [Ratio] 13.1 % 12.0-14.8 [facility] Hematocrit Auto (Bld) [Volum e fraction]Ordered By: Fred Kirk on 11-30-2023 Hematocrit (Bld) [Volume fraction] 42.5 % 38.8-50.0 [facility] Hemoglobin [Mass/volume] in BloodOrdered By: Fred Kirk on 11-30-2023 Hemoglobin (Bld) [Mass/Vol] 14.8 g/dL 13.0-17.0 [facility] IgA [Mass/volume] in Serum o r PlasmaOrdered By: Fred Kirk on 11-30-2023 IgA [Mass/Vol] 205 mg/dL 61-437 [facility] Comment on above: Performed at: [address] [id number] Director: Mehran Ortega PhD, Phone: [phone] Leukocytes [#/volume] correc ori for nucleated erythrocytes in Blood by Automated counOrdered By: Fred Kirk on 11-30-2023 WBC corrected for nucl RBC Auto (Bld) [#/Vol] 6.2 10*3/uL 4.1-10.5 [facility] Lymphocytes Auto (Bld) [#/Vo l]Ordered By: Fred Kirk on 11-30-2023 Lymphocytes (Bld) [#/Vol] 0.7 10*3/uL 1.00-4.8 [facility] Lymphocytes/100 WBC Auto (Bl d)Ordered By: Fred Kirk on 11-30-2023 Lymphocytes/100 WBC (Bld) 11.9 % . [facility] MCH Auto (RBC) [Entitic mass ]Ordered By: Fred Kirk on 11-30-2023 MCH (RBC) [Entitic mass] 31.4 pg 27.5-35.2 [facility] MCHC Auto (RBC) [Mass/Vol]Or dered By: Fred Kirk on 11-30-2023 MCHC (RBC) [Mass/Vol] 34.8 g/dL 32.5-35.6 [facility] MCV Auto (RBC) [Entitic vol] Ordered By: Fred Kirk on 11-30-2023 MCV (RBC) [Entitic vol] 90.4 fL 83.5-101 [facility] Monocytes Auto (Bld) [#/Vol] Ordered By: Fred Kirk on 11-30-2023 Monocytes (Bld) [#/Vol] 0.5 10*3/uL 0.0-0.8 [facility] Monocytes/100 WBC Auto (Bld) Ordered By: Fred Kirk on 11-30-2023 Monocytes/100 WBC (Bld) 7.4 % . [facility] Neutrophils Auto (Bld) [#/Vo l]Ordered By: Fred Kirk on 11-30-2023 Neutrophils (Bld) [#/Vol] 4.8 10*3/uL 1.8-7.7 [facility] Neutrophils/100 WBC Auto (Bl d)Ordered By: Fred Kirk on 11-30-2023 Neutrophils/100 WBC (Bld) 78.4 % . [facility] No Panel InformationOrdered By: Fred Kirk on 11-30-2023 Endomysial IgA Antibody Negative Negative [facility] Nucleated erythrocytes [Pres ence] in Blood by Automated countOrdered By: Fred Kirk on 11-30-2023 Nucleated RBC Auto Ql (Bld) 0.1 /100{WBC} 0-0.5 [facility] Platelet mean volume Auto (B ld) [Entitic vol]Ordered By: Fred Kirk on 11-30-2023 Platelet mean volume (Bld) [Entitic vol] 7.4 fL 6.6-10.1 [facility] Platelets Auto (Bld) [#/Vol] Ordered By: Fred Kirk on 11-30-2023 Platelets (Bld) [#/Vol] 187 10*3/uL 150-450 [facility] RBC Auto (Bld) [#/Vol]Ordere d By: Fred Kirk on 11-30-2023 RBC (Bld) [#/Vol] 4.70 10*6/uL 3.90-5.60 [facility] Serum gliadin peptide IgA an tibody assay (units/volume)Ordered By: Fred Kirk on 11-30-2023 Gliadin peptide IgA Qn (S) 5 units 0-19 [facility] Comment on above: Negative 0 - 19 Weak Positive 20 - 30 Moderate to Strong Positive >30 Serum gliadin peptide IgG an tibody assay (units/volume)Ordered By: Fred Kirk on 11-30-2023 Gliadin peptide IgG Qn (S) 2 units 0-19 [facility] Comment on above: Negative 0 - 19 Weak Positive 20 - 30 Moderate to Strong Positive >30 Serum tissue transglutaminas e (tTG) IgA antibody assay (units/volume)Ordered By: Fred Kirk on 11-30-2023 tTG IgA Qn (S) <2 U/mL 0-3 [facility] Comment on above: Negative 0 - 3 Weak Positive 4 - 10 Positive >10 Tissue Transglutaminase (tTG) has been identified as the endomysial antigen. Studies have demonstr- ated that endomysial IgA antibodies have over 99% specificity for gluten sensitive enteropathy. Serum tissue transglutaminas e (tTG) IgG antibody assay (units/volume)Ordered By: Fred Kirk on 11-30-2023 tTG IgG Qn (S) 3 U/mL 0-5 [facility] Comment on above: Negative 0 - 5 Weak Positive 6 - 9 Positive >9 Thyrotropin [Units/volume] i n Serum or PlasmaOrdered By: Fred Kirk on 11-30-2023 TSH Qn 2.85 m[IU]/L 0.45-5.33 [facility] WBC Auto (Bld) [#/Vol]Ordere d By: Fred Kirk on 11-30-2023 WBC (Bld) [#/Vol] 6.2 10*3/uL 4.1-10.5 [facility] CHEMISTRYOrdered By: SYSTEM SYSTEM on 01-20-2023 Anion gap [Moles/Vol] 13 mmol/L Normal 6 - 16 mEq/L [facility] Calcium [Mass/Vol] 9.4 mg/dL Normal 8.9 - 11.1 mg/dL [facility] Chloride [Moles/Vol] 99 mmol/L Low 101 - 111 mmol/ L [facility] CO2 [Moles/Vol] 25 mmol/L Normal 21 - 31 mmol/L [facility] Creatinine [Mass/Vol] 1.1 mg/dL Normal 0.5 - 1.3 mg/d L [facility] Remisol GFR/1.73 sq M.predicted among blacks MDRD (S/P/Bld) [Vol rate/Area] mL/min/1.73 m2 Normal >=59mL/min/1.73 m2 [facility] Chem S GFR/1.73 sq M.predicted among non-blacks MDRD (S/P/Bld) [Vol rate/Area] mL/min/1.73 m2 Normal >=59mL/min/1.73 m2 [facility] Chem S Glucose [Mass/Vol] 139 mg/dL Normal 55 - 199 mg/dL [facility] Potassium [Moles/Vol] 4.5 mmol/L Normal 3.5 - 5.3 mmol /L [facility]isol Sodium [Moles/Vol] 132 mmol/L Low 135 - 145 mmol/L [facility] Urea nitrogen [Mass/Vol] 28 mg/dL High 5 - 21 mg/dL [facility] Urea nitrogen/Creatinine [Mass ratio] 26 mg/mg High 10 - 20 [facility] HEMATOLOGYOrdered By: Damian Sanchez on 01-20-2023 Erythrocyte distribution width (RBC) [Ratio] 12.7 % Normal 10.9 - 14.2 % [facility] Hematocrit (Bld) [Volume fraction] 45.6 % Normal 37.7 - 49.0 % [facility] Hemoglobin (Bld) [Mass/Vol] 15.3 g/dL Normal 13.5 - 17.5 gm/dL [facility] MCH (RBC) [Entitic mass] 31.0 pg Normal 27.0 - 34.0 pg [facility] MCHC (RBC) [Mass/Vol] 33.5 g/dL Normal 31.4 - 36.0 gm /dL [facility] MCV (RBC) [Entitic vol] 92.4 fL Normal 80.0 - 100.0 fL [facility] Platelet mean volume (Bld) [Entitic vol] 7.7 fL Normal 6.4 - 10.8 fL [facility] Platelets (Bld) [#/Vol] 198.0 E9/L Normal 150.0 - 500.0 E9/L [facility] RBC (Bld) [#/Vol] 4.9 E12/L Normal 4.3 - 5.9 E12/L [facility] WBC corrected for nucl RBC Auto (Bld) [#/Vol] 4.8 E9/L Normal 4.0 - 11.0 E9/L [facility] XR PELVIS 1_2 VIEWSon 2021 XR [...] KOBE DOOLEY Date: 2022-05-22 06:41 Normal [facility] CBC W MANUAL DIFFon 05-14-20 22 ATYPICAL LYMPH # Normal [facility] Comment on above: Performed By: #### C BANNER #### [facility] [address] [place] [address] Dr. Lui Maloney ATYPICAL LYMPH % Normal [facility] Comment on above: Performed By: #### C BCMAN #### [facility] [address] [address] [address] Lui Maloney BAND # Normal 0.0-0.3 [facility] Comment on above: Performed By: #### C BCMAN #### [facility] [address] [place] [address] Dr. Lui Maloney BAND % Normal 0-5 [facility] Comment on above: Performed By: #### C BCMAN #### [facility] [address] [place] [address] Dr. Lui Maloney BASOM # 0.00 103/ul Normal 0.00-0.10 [facility] Comment on above: Performed By: #### C BCNGHIA #### [facility] [address] [place] [address] Dr. Lui Maloney BASOM % 0.0 % Critically low 0.2-2.0 [facility] Comment on above: Performed By: #### C BCNGHIA #### [facility] [address] [place] [address] Dr. Lui Maloney BLAST # Normal [facility] Comment on above: Performed By: #### C ALEX #### [facility] [address] [place] [address] Dr. Lui Maloney BLAST % Normal [facility] Comment on above: Performed By: #### C ALEX #### [facility] [address] [place] [address] Dr. Lui Maloney CORRECTED WBC Normal 4.0-11.0 [facility] Comment on above: Performed By: #### C ALEX #### [facility] [address] [place] [address] Dr. Lui Maloney EOS # 0.21 103/ul Normal 0.00-0.70 [facility] Comment on above: Performed By: #### C BCNGHIA #### [facility] [address] [place] [address] Dr. Lui Maloney EOS% 5.0 % Normal 0.9-7.0 [facility] Comment on above: Performed By: #### C ALEX #### [facility] [address] [address] [address] Lui Maloney HCT 41.6 % Critically low 42.0-54.0 [facility] Comment on above: Performed By: #### C ALEX #### [facility] [address] [address] [address] Lui Mlaoney HGB 14.5 g/dl Normal 14.0-18.0 [facility] Comment on above: Performed By: #### C ALEX #### [facility] [address] [address] [address] Lui Maloney LYMPHM # 0.63 103/ul Critically low 1.20-3.80 [facility] Comment on above: Performed By: #### C ALEX #### [facility] [address] [place] [address] Dr. Lui Maloney LYMPHM% 15.0 % Critically low 20.5-60.0 [facility] Comment on above: Performed By: #### C ALEX #### [facility] [address] [address] [address] Lui Maloney MCH 31.1 pg Normal 25.9-34.0 [facility] Comment on above: Performed By: #### C ALEX #### [facility] [address] [address] [address] Lui Maloney MCHC 34.9 g/dl Normal 29.9-35.2 [facility] Comment on above: Performed By: #### C ALEX #### [facility] [address] [place] [address] Dr. Lui Maloney MCV 89.3 fL Normal 80.0-94.0 [facility] Comment on above: Performed By: #### C BCNGHIA #### [facility] [address] [place] [address] Dr. Lui Maloney METAMYELOCYTE # Normal [facility] Comment on above: Performed By: #### C ALEX #### [facility] [address] [place] [address] Dr. Lui Maloney METAMYELOCYTE % Normal [facility] Comment on above: Performed By: #### C BCMAN #### [facility] [address] [address] [address] Lui Maloney MONOM# 0.29 103/ul Critically low 0.30-0.80 [facility] Comment on above: Performed By: #### C BCMAN #### [facility] [address] [address] [address] Lui Maloney MONOM% 7.0 % Normal 1.7-12.0 [facility] Comment on above: Performed By: #### C BCMAN #### [facility] [address] [address] [address] Lui Maloney MPV 9.4 fL Critically low 9.5-13.5 [facility] Comment on above: Performed By: #### C ALEX #### [facility] [address] [place] [address] Dr. Lui Maloney MYELOCYTE # Normal [facility] Comment on above: Performed By: #### C ALEX #### [facility] [address] [place] [address] Dr. Lui Maloney MYELOCYTE % Normal [facility] Comment on above: Performed By: #### C BCNGHIA #### [facility] [address] [place] [address] Dr. Lui Maloney NRBC Normal [facility] Comment on above: Performed By: #### C BCMAN #### [facility] [address] [place] [address] Dr. Lui Maloney PLT 155 103/ul Normal 150-450 [facility] Comment on above: Performed By: #### C BCMAN #### [facility] [address] [place] [address] Dr. Lui Maloney RBC 4.66 106/ul Critically low 4.70-6.10 [facility] Comment on above: Performed By: #### C BCNGHIA #### [facility] [address] [place] [address] Dr. Lui Maloney RDW 13.4 % Normal 11.0-15.0 [facility] Comment on above: Performed By: #### C BCMAN #### [facility] [address] [place] [address] Dr. Lui Maloney SEG # 3.07 103/ul Normal 1.40-6.50 [facility] Comment on above: Performed By: #### C BCMAN #### [facility] [address] [place] [address] Dr. Lui Maloney SEG % 73.0 % Normal 43.0-75.0 [facility] Comment on above: Performed By: #### C BCMAN #### [facility] [address] [place] [address] Dr. Lui Maloney WBC 4.2 103/ul Normal 4.0-11.0 [facility] Comment on above: Performed By: #### C ALEX #### [facility] [address] [place] [address] Dr. Lui Maloney PROF CHEM 8 (BAS METB)on Anion gap [Moles/Vol] 12.2 mmol/L Normal [facility] Comment on above: Performed By: #### B MP #### [facility] [address] [place] [address] Dr. Lui Maloney Calcium [Mass/Vol] 8.9 mg/dL Normal 8.5-10.1 [facility] Comment on above: Performed By: #### B MP #### [facility] [address] [place] [address] Dr. Lui Maloney Chloride [Moles/Vol] 108 mmol/L Critically high 98-107 [facility] Comment on above: Performed By: #### B MP #### [facility] [address] [place] [address] Dr. Lui Maloney CO2 [Moles/Vol] 25.1 mmol/L Normal 21.0-32.0 [facility] Comment on above: Performed By: #### B MP #### [facility] [address] [place] [address] Dr. Lui Maloney Creatinine [Mass/Vol] 0.92 mg/dL Normal 0.70-1.30 [facility] Comment on above: Performed By: #### B MP #### [facility] [address] [address] [address] Lui Maloney EGFR-AF CHILEAN >60 Normal >=60 [facility] Comment on above: Performed By: #### B MP #### [facility] [address] [address] [address] Lui Maloney EGFR-NON AF CHILEAN >60 Normal >=60 [facility] Comment on above: Performed By: #### B MP #### [facility] [address] [address] [address] Lui Maloney Glucose [Mass/Vol] 128 mg/dL Critically high 74-106 [facility] Comment on above: Performed By: #### B MP #### [facility] [address] [place] [address] Dr. Lui Maloney Potassium [Moles/Vol] 4.3 mmol/L Normal 3.5-5.1 [facility] Comment on above: Performed By: #### B MP #### [facility] [address] [place] [address] Dr. Lui Maloney Sodium [Moles/Vol] 141 mmol/L Normal 136-145 [facility] Comment on above: Performed By: #### B MP #### [facility] [address] [place] [address] Dr. Lui Maloney Urea nitrogen [Mass/Vol] 11.0 mg/dL Normal 7.0-18.0 [facility] Comment on above: Performed By: #### B MP #### [facility] [address] [place] [address] Dr. Lui Maloney Urea nitrogen/Creatinine [Mass ratio] 12.0 mg/mg Normal [facility] Comment on above: Performed By: #### B MP #### [facility] [address] [place] [address] Dr. Lui Maloney PROTIMEon 05-14-2022 INR Coag (PPP) [Relative time] 0.94 {INR} Normal [facility] Comment on above: Performed By: #### P T, PTT #### [facility] [address] [address] [address] Lui Maloney INR GUIDELINES SEE BELOW Normal [facility] Comment on above: Result Comment: ADARSH RED INR: 2.0 - 3.0 CONDITIONS NOT LISTED BELOW 2.5 - 3.5 FOR PROSTHETIC HEART VALVE REPLACEMENT 2.5 - 3.5 RECURRENT THROMBOSIS Performed By: #### P T, PTT #### [facility] [address] [address] [address] Lui Maloney PT Coag (PPP) [Time] 10.2 s Normal 9.0-11.6 [facility] Comment on above: Performed By: #### P T, PTT #### [facility] [address] [address] [address] Lui Maloney PTTon 05-14-2022 aPTT Coag (Bld) [Time] 26.1 s Normal 22.3-36.2 [facility] Comment on above: Performed By: #### P T, PTT #### [facility] [address] [place] [address] Dr. Lui Maloney XR CHEST 2 Von [...] KEVIN [place] Date: 2022-05-14 12:46 Normal [facility] CBC W Auto Differential pane l (Bld)on 04-02-2022 Abs Immature Gran <0.03 <0.10 k/uL [facility] Basophils (Bld) [#/Vol] 10*3/uL <0.11 k/uL [facility] Basophils/100 WBC (Bld) 0.5 % [facility] Differential cell count method Nom (Bld) Auto [facility] Eosinophils (Bld) [#/Vol] 0.11 10*3/uL <0.46 k/uL [facility] Eosinophils/100 WBC (Bld) 2.5 % [facility] Erythrocyte distribution width (RBC) [Ratio] 12.1 % 11.5 - 15.0 % [facility] Hematocrit (Bld) [Volume fraction] 46.1 % 39.0 - 51.0 % [facility] Hemoglobin (Bld) [Mass/Vol] 16.2 g/dL 13.0 - 17.0 g/dL [facility] Immature Gran % 0.2 % [facility] Lymphocytes (Bld) [#/Vol] 0.88 10*3/uL Low 1.00 - 4.00 k/uL [facility] Lymphocytes/100 WBC (Bld) 20.2 % [facility] MCH (RBC) [Entitic mass] 31.0 pg 26.0 - 34.[address] [facility] MCHC (RBC) [Mass/Vol] 35.1 g/dL 30.5 - 36.0 g/ dL [facility] MCV (RBC) [Entitic vol] 88.3 fL 80.0 - 100.[address] [facility] Monocytes (Bld) [#/Vol] 0.39 10*3/uL <0.87 k/uL [facility] Monocytes/100 WBC (Bld) 9.0 % [facility] Neutrophils (Bld) [#/Vol] 2.94 10*3/uL 1.45 - 7.50 k/uL [facility] Neutrophils/100 WBC (Bld) 67.6 % [facility] Nucleated RBC (Bld) [#/Vol] 10*3/uL <0.01 k/uL [facility] Nucleated RBC/100 WBC (Bld) [Ratio] 0.0 /[address] [facility] Platelet mean volume (Bld) [Entitic vol] 10.0 fL 9.0 - 12.[address] [facility] Platelets (Bld) [#/Vol] 171 10*3/uL 150 - 400 k/uL [facility] RBC (Bld) [#/Vol] 5.22 10*6/uL 4.20 - 6.00 m/uL [facility] WBC (Bld) [#/Vol] 4.35 10*3/uL 3.70 - 11.00 k/u L [facility] Vital Signs Date Time Vital Sign Value Performing Clinician Facility 01-23-2025 13:59-0500 Body mass index (BMI) [Ratio] 38.52 kg/m2 ECTOR uLx MD Work Phone: [facility] 01-23-2025 13:59-0500 Body temperature 97.2 [degF] ECTOR Lux MD Work Phone: [facility] 01-23-2025 13:59-0500 Body weight 104.2 kg ECTOR Lux MD Work Phone: [facility] 01-23-2025 13:59-0500 Diastolic blood pressure 68 mm[Hg] ECTOR Lux MD Work Phone: [facility] 01-23-2025 13:59-0500 Heart rate 94 /min ECTOR Lux MD Work Phone: [facility] 01-23-2025 13:59-0500 Respiratory rate 18 /min ECTOR Lux MD Work Phone: [facility] 01-23-2025 13:59-0500 SaO2% (BldA) [Mass fraction] 97 % ECTOR Lux MD Work Phone: [facility] 01-23-2025 13:59-0500 Systolic blood pressure 102 mm[Hg] ECTOR Lux MD Work Phone: [facility] 01-16-2025 14:37-0500 Body height 160 cm Kerri Shah [employer]ILER INST[employer]ER[employer]ORDER PROCESSOR Work Phone: [facility] 01-16-2025 14:37-0500 Body mass index (BMI) [Ratio] 40.21 kg/m2 Kerri Shah BOILER INSTALLER-ORDER PROCESSOR Work Phone: [facility] 01-16-2025 14:37-0500 Body weight 102.97 kg Kerri Shah BOILER INSTALLER-ORDER PROCESSOR Work Phone: [facility] 01-16-2025 14:37-0500 Diastolic blood pressure 75 mm[Hg] Kerri Shah BOILER INSTALLER-ORDER PROCESSOR Work Phone: [facility] 01-16-2025 14:37-0500 Heart rate 79 /min Kerri Shah BOILER INSTALLER-ORDER PROCESSOR Work Phone: [facility] 01-16-2025 14:37-0500 Systolic blood pressure 115 mm[Hg] Kerri Shah BOILER INSTALLER-ORDER PROCESSOR Work Phone: [facility] 01-15-2025 11:24-0500 Blood Pressure Location Leila LAMBERT [facility] 01-15-2025 11:24-0500 Body temperature 98.6 [degF] Leila LAMBERT [facility] 01-15-2025 11:24-0500 Diastolic blood pressure 73 mm[Hg] Leila LAMBERT [facility] 01-15-2025 11:24-0500 Heart rate 70 /min Leila LAMBERT [facility] 01-15-2025 11:24-0500 Respiratory rate 18 /min Leila LAMBERT [facility] 01-15-2025 11:24-0500 Systolic blood pressure 123 mm[Hg] Leila LAMBERT [facility] 10-16-2024 12:08-0500 Blood Pressure Location Leila LAMBERT [facility] 10-16-2024 12:08-0500 Body temperature 98.6 [degF] Leila LAMBERT [facility] 10-16-2024 12:08-0500 Diastolic blood pressure 88 mm[Hg] Leila LAMBERT [facility] 10-16-2024 12:08-0500 Heart rate 89 /min Leila LAMBERT [facility] 10-16-2024 12:08-0500 Respiratory rate 16 /min Leila LAMBERT [facility] 10-16-2024 12:08-0500 Systolic blood pressure 137 mm[Hg] Leila LAMBERT [facility] 10-10-2024 08:59-0500 Body height 160 cm Melo Reilly DPM Work Phone: [facility] 10-10-2024 08:59-0500 Body mass index (BMI) [Ratio] 43.4 kg/m2 Melo Reilly DPM Work Phone: [facility] 10-10-2024 08:59-0500 Body weight 111.13 kg Melo Reilly DPM Work Phone: [facility] 09-26-2024 15:19-0400 Body height 160 cm Kerri Benitez DPM Work Phone: [facility] 09-26-2024 15:19-0400 Body mass index (BMI) [Ratio] 43.4 kg/m2 Kerri Benitez DPM Work Phone: [facility] 09-26-2024 15:19-0400 Body weight 111.13 kg Kerri Benitez DPM Work Phone: [facility] 09-05-2024 12:35-0400 Body height 160 cm [facility] 1 [facility] 09-05-2024 12:35-0400 Body mass index (BMI) [Ratio] 43.4 kg/m2 [facility] 1 [facility] 09-05-2024 12:35-0400 Body weight 111.13 kg [facility] 1 [facility] 08-23-2024 11:38-0400 Body mass index (BMI) [Ratio] 42.48 kg/m2 Kerri BAILEY Work Phone: [facility] 08-23-2024 11:38-0400 Body weight 108.77 kg Kerri Shah BOILER INSTALLER-ORDER PROCESSOR Work Phone: [facility] 08-23-2024 11:38-0400 Diastolic blood pressure 89 mm[Hg] Kerri Shah BOILER INSTALLER-ORDER PROCESSOR Work Phone: [facility] 08-23-2024 11:38-0400 Systolic blood pressure 150 mm[Hg] Kerri Shah BOILER INSTALLER-ORDER PROCESSOR Work Phone: [facility] 06-22-2024 13:48-0400 Body height 160.02 cm [facility] 06-22-2024 13:48-0400 Body mass index (BMI) [Ratio] 43.3 kg/m2 [facility] 06-22-2024 13:48-0400 Body weight 111 kg [facility] 03-01-2024 13:03-0400 Body height 160.02 cm [facility] 03-01-2024 13:03-0400 Body mass index (BMI) [Ratio] 43.5 kg/m2 [facility] 03-01-2024 13:03-0400 Body weight 111.58 kg [facility] 03-01-2024 13:03-0400 Diastolic blood pressure 64 mm[Hg] [facility] 03-01-2024 13:03-0400 Heart rate 55 /min [facility] 03-01-2024 13:03-0400 Systolic blood pressure 107 mm[Hg] [facility] 01-05-2024 11:13-0500 Diastolic blood pressure 66 mm[Hg] [facility] Work Phone: [facility] 01-05-2024 11:13-0500 Heart rate 61 /min [facility] Work Phone: [facility] 01-05-2024 11:13-0500 Respiratory rate 18 /min [facility] Work Phone: [facility] 01-05-2024 11:13-0500 SaO2% (BldA) [Mass fraction] 94 % [facility] Work Phone: [facility] 01-05-2024 11:13-0500 Systolic blood pressure 148 mm[Hg] [facility] Work Phone: [facility] 01-05-2024 10:03-0500 Body height 160.02 cm [facility] Work Phone: [facility] 01-05-2024 10:03-0500 Body temperature 97.7 [degF] [facility] Work Phone: [facility] 01-05-2024 10:03-0500 Body weight 108.86 kg [employer] Work Phone: [facility] 01-04-2024 14:16-0500 Body temperature 97.11 [degF] ECTOR Lux MD Work Phone: [facility] 01-04-2024 14:16-0500 Body weight 111.3 kg ECTOR Lux MD Work Phone: [facility] 01-04-2024 14:16-0500 Diastolic blood pressure 59 mm[Hg] ECTOR uLx MD Work Phone: [facility] 01-04-2024 14:16-0500 Heart rate 87 /min ECTOR Lux MD Work Phone: [facility] 01-04-2024 14:16-0500 Respiratory rate 18 /min ECTOR Lux MD Work Phone: [facility] 01-04-2024 14:16-0500 SaO2% (BldA) [Mass fraction] 98 % ECTOR Lux MD Work Phone: [facility] 01-04-2024 14:16-0500 Systolic blood pressure 102 mm[Hg] ECTOR Lux MD Work Phone: [facility] 09-13-2023 14:58-0400 Blood Pressure Location Leila LAMBERT [facility] 09-13-2023 14:58-0400 Diastolic blood pressure 74 mm[Hg] Leila LAMBERT [facility] 09-13-2023 14:58-0400 Heart rate 68 /min Leilacristian LAMBERT [facility] 09-13-2023 14:58-0400 Respiratory rate 16 /min Leilacristian LAMBERT [facility] 09-13-2023 14:58-0400 Systolic blood pressure 130 mm[Hg] Leila LAMBERT [facility] 07-12-2023 10:28-0400 Blood Pressure Location Leila LAMBERT [facility] 07-12-2023 10:28-0400 Diastolic blood pressure 90 mm[Hg] Leilacristian LAMBERT [facility] 07-12-2023 10:28-0400 Heart rate 57 /min Leilacristian LAMBERT [facility] 07-12-2023 10:28-0400 Systolic blood pressure 125 mm[Hg] Leila LAMBERT [facility] 07-06-2023 13:48-0400 Body temperature 96.3 [degF] ECTOR Lux MD Work Phone: [facility] 07-06-2023 13:48-0400 Body weight 110.95 kg ECTOR Lux MD Work Phone: [facility] 07-06-2023 13:48-0400 Diastolic blood pressure 75 mm[Hg] ECTOR Lux MD Work Phone: [place] [address]-08-2023 13:48-0400 Heart rate 64 /min ECTOR Lux MD Work Phone: [facility] 07-06-2023 13:48-0400 Respiratory rate 18 /min ECTOR Lux MD Work Phone: [facility] 07-06-2023 13:48-0400 SaO2% (BldA) [Mass fraction] 97 % ECTOR Lux MD Work Phone: [facility] 07-06-2023 13:48-0400 Systolic blood pressure 117 mm[Hg] ECTOR Lux MD Work Phone: [facility] 05-17-2023 12:21-0400 Blood Pressure Location Leila LAMBERT [facility] 05-17-2023 12:21-0400 Diastolic blood pressure 72 mm[Hg] Leila LAMBERT [facility] 05-17-2023 12:21-0400 Heart rate 68 /min Leila LAMBERT [facility] 05-17-2023 12:21-0400 Respiratory rate 16 /min Leila LAMBERT [facility] 05-17-2023 12:21-0400 Systolic blood pressure 130 mm[Hg] Leila LAMBERT [facility] 05-05-2023 13:45-0400 Body height Imad Asaad Other [employer] Other 05-05-2023 13:45-0400 Body mass index (BMI) [Ratio] 42.51 kg/m2 Imad Asaad Other [employer] Other 05-05-2023 13:45-0400 Body weight 108.86 kg Imad Asaad Other [facility] Other 05-05-2023 13:45-0400 Diastolic blood pressure 69 mm[Hg] Imad Asaad Other [facility] Other 05-05-2023 13:45-0400 Systolic blood pressure 125 mm[Hg] Imad Asaad Other [facility] Other 03-08-2023 15:05-0400 Blood Pressure Location Leila LAMBERT [facility] 03-08-2023 15:05-0400 Diastolic blood pressure 75 mm[Hg] Leila LAMBERT [facility] 03-08-2023 15:05-0400 Heart rate 72 /min Leila LAMBERT [facility] 03-08-2023 15:05-0400 Respiratory rate 16 /min Leila LAMBERT [facility] 03-08-2023 15:05-0400 Systolic blood pressure 118 mm[Hg] Leila LAMBERT [facility] 09-04-2022 11:43-0400 Blood Pressure Location Leila LAMBERT [facility] 09-04-2022 11:43-0400 Diastolic blood pressure 93 mm[Hg] Leila LAMBERT [facility] 09-04-2022 11:43-0400 Heart rate 63 /min Leila LAMBERT [facility] 09-04-2022 11:43-0400 Systolic blood pressure 157 mm[Hg] Leila LAMBERT [facility] 07-07-2022 14:32-0400 Body temperature 96.91 [degF] ECTOR Lux MD Work Phone: [facility] 07-07-2022 14:32-0400 Body weight 104.78 kg ECTOR Lux MD Work Phone: [facility] 07-07-2022 14:32-0400 Diastolic blood pressure 76 mm[Hg] ECTOR Lux MD Work Phone: [facility] 07-07-2022 14:32-0400 Heart rate 79 /min ECTOR Lux MD Work Phone: [facility] 07-07-2022 14:32-0400 Respiratory rate 16 /min ECTOR Lux MD Work Phone: [facility] 07-07-2022 14:32-0400 SaO2% (BldA) [Mass fraction] 97 % ECTOR Lux MD Work Phone: [facility] 07-07-2022 14:32-0400 Systolic blood pressure 117 mm[Hg] ECTOR Lux MD Work Phone: [facility] 06-18-2022 08:30-0400 Body temperature 96.91 [degF] ECTOR Lux MD Work Phone: [facility] 06-18-2022 08:30-0400 Body weight 105.51 kg ECTOR Lux MD Work Phone: [facility] 06-18-2022 08:30-0400 Diastolic blood pressure 70 mm[Hg] ECTOR Lux MD Work Phone: [facility] 06-18-2022 08:30-0400 Heart rate 51 /min ECTOR Lux MD Work Phone: [facility] 06-18-2022 08:30-0400 Respiratory rate 16 /min ECTOR Lux MD Work Phone: [facility] 06-18-2022 08:30-0400 SaO2% (BldA) [Mass fraction] 98 % ECTOR Lux MD Work Phone: [facility] 06-18-2022 08:30-0400 Systolic blood pressure 103 mm[Hg] ECTOR Lux MD Work Phone: [facility] 06-04-2022 13:37-0400 Body temperature 97.39 [degF] ECTOR Lux MD Work Phone: [facility] 06-04-2022 13:37-0400 Body weight 105.33 kg ECTOR Lux MD Work Phone: [facility] 06-04-2022 13:37-0400 Diastolic blood pressure 76 mm[Hg] ECTOR Lux MD Work Phone: [facility] 06-04-2022 13:37-0400 Heart rate 59 /min ECTOR Lux MD Work Phone: [facility] 06-04-2022 13:37-0400 Respiratory rate 18 /min ECTOR Lux MD Work Phone: [facility] 06-04-2022 13:37-0400 SaO2% (BldA) [Mass fraction] 97 % ECTOR Lux MD Work Phone: [facility] 06-04-2022 13:37-0400 Systolic blood pressure 128 mm[Hg] ECTOR Lux MD Work Phone: [facility] 04-20-2022 13:36-0400 Body temperature 97.59 [degF] ECTOR Lux MD Work Phone: [facility] 04-20-2022 13:36-0400 Body weight 111.58 kg ECTOR Lux MD Work Phone: [facility] 04-20-2022 13:36-0400 Diastolic blood pressure 63 mm[Hg] ECTOR Lux MD Work Phone: [facility] 04-20-2022 13:36-0400 Heart rate 56 /min ECTOR Lux MD Work Phone: [facility] 04-20-2022 13:36-0400 Respiratory rate 18 /min ECTOR Lux MD Work Phone: [facility] 04-20-2022 13:36-0400 SaO2% (BldA) [Mass fraction] 99 % ECTOR Lux MD Work Phone: [facility] 04-20-2022 13:36-0400 Systolic blood pressure 110 mm[Hg] ECTOR Lux MD Work Phone: [facility] 04-13-2022 13:48-0400 Body temperature 96.69 [degF] Yevgeniy Son MD Work Phone: [facility] 04-13-2022 13:48-0400 Body weight 106.59 kg Yevgeniy Son MD Work Phone: [facility] 04-13-2022 13:48-0400 Diastolic blood pressure 85 mm[Hg] Yevgeniy Son MD Work Phone: [facility] 04-13-2022 13:48-0400 Heart rate 62 /min Yevgeniy Son MD Work Phone: [facility] 04-13-2022 13:48-0400 Respiratory rate 20 /min Yevgeniy Son MD Work Phone: [facility] 04-13-2022 13:48-0400 SaO2% (BldA) [Mass fraction] 97 % Yevgeniy Son MD Work Phone: [facility] 04-13-2022 13:48-0400 Systolic blood pressure 145 mm[Hg] Yevgeniy Son MD Work Phone: [facility] 04-06-2022 13:32-0400 Body temperature 96.69 [degF] ECTOR Lux MD Work Phone: [facility] 04-06-2022 13:32-0400 Body weight 107.96 kg ECTOR Lux MD Work Phone: [facility] 04-06-2022 13:32-0400 Diastolic blood pressure 72 mm[Hg] ECTOR Lux MD Work Phone: [facility] 04-06-2022 13:32-0400 Heart rate 63 /min ECTOR Lux MD Work Phone: [facility] 04-06-2022 13:32-0400 Respiratory rate 16 /min ECTOR Lux MD Work Phone: [facility] 04-06-2022 13:32-0400 SaO2% (BldA) [Mass fraction] 98 % ECTOR Lux MD Work Phone: [facility] 04-06-2022 13:32-0400 Systolic blood pressure 145 mm[Hg] ECTOR Lux MD Work Phone: [facility] 03-31-2022 13:36-0400 Body temperature 97.11 [degF] ECTOR Lux MD Work Phone: [facility] 03-31-2022 13:36-0400 Body weight 109.32 kg ECTOR Lux MD Work Phone: [facility] 03-31-2022 13:36-0400 Diastolic blood pressure 50 mm[Hg] ECTOR Lux MD Work Phone: [facility] 03-31-2022 13:36-0400 Heart rate 55 /min ECTOR Lux MD Work Phone: [facility] 03-31-2022 13:36-0400 Respiratory rate 16 /min ECTOR Lux MD Work Phone: [facility] 03-31-2022 13:36-0400 SaO2% (BldA) [Mass fraction] 98 % ECTOR Lux MD Work Phone: [facility] 03-31-2022 13:36-0400 Systolic blood pressure 128 mm[Hg] ECTOR Lux MD Work Phone: [facility] 03-23-2022 15:33-0400 Body temperature 97.2 [degF] ECTOR Lux MD Work Phone: [facility] 03-23-2022 15:33-0400 Body weight 106.59 kg ECTOR Lux MD Work Phone: [facility] 03-23-2022 15:33-0400 Diastolic blood pressure 50 mm[Hg] ECTOR Lux MD Work Phone: [facility] 03-23-2022 15:33-0400 Heart rate 69 /min ECTOR Lux MD Work Phone: [facility] 03-23-2022 15:33-0400 Respiratory rate 18 /min ECTOR Lux MD Work Phone: [facility] 03-23-2022 15:33-0400 SaO2% (BldA) [Mass fraction] 97 % ECTOR Lux MD Work Phone: [facility] 03-23-2022 15:33-0400 Systolic blood pressure 104 mm[Hg] ECTOR Lux MD Work Phone: [facility] 03-11-2022 12:55-0400 Body height 164.5 cm ECTOR Lux MD Work Phone: [facility] 03-11-2022 12:55-0400 Body temperature 96.69 [degF] ECTOR Lux MD Work Phone: [facility] 03-11-2022 12:55-0400 Body weight 108.86 kg ECTOR Lux MD Work Phone: [facility] 03-11-2022 12:55-0400 Diastolic blood pressure 78 mm[Hg] ECTOR Lux MD Work Phone: [facility] 03-11-2022 12:55-0400 Heart rate 61 /min ECTOR Lux MD Work Phone: [facility] 03-11-2022 12:55-0400 Respiratory rate 16 /min ECTOR Lux MD Work Phone: [facility] 03-11-2022 12:55-0400 SaO2% (BldA) [Mass fraction] 95 % ECTOR Lux MD Work Phone: [facility] 03-11-2022 12:55-0400 Systolic blood pressure 128 mm[Hg] ECTOR Lux MD Work Phone: [facility] Encounters Encounter Date Encounter Type Care Provider Facility Start: 02-22-2025 ambulatory Leila Atkinsoni ty:CD:[id number] Start: 02-20-2025 End: 02-20-2025 ambulatory MARY LOU Sven SHARMARY Facility:[facility] Start: 02-06-2025 End: 02-06-2025 ambulatory Leila LAMBERT Facility[place] Start: 02-06-2025 End: 02-06-2025 Patient encounter procedure Leila LAMBERT [facility] Start: 02-01-2025 ambulatory [facility] Start: 01-23-2025 End: 01-23-2025 Office outpatient visit 15 minutes Jhony Lux MD Work Phone: Radiation Oncology Comment on above: Prostate cancer (HCC ) (Primary Dx) Start: 01-23-2025 End: 01-23-2025 ambulatory Jhony LUX Facility:[facility] Start: 01-16-2025 End: 01-16-2025 Office outpatient visit 15 minutes Kerri Shah BOILER INSTALLER-ORDER PROCESSOR Work Phone: [facility] Comment on above: Gastroenteritis and colitis, viral (Primary Dx); Irritable bowel syndrome, unspecified type Start: 01-16-2025 End: 01-16-2025 ambulatory [facility] Abram SHAH [facility] Start: 01-15-2025 End: 01-15-2025 ambulatory Leila LAMBERT Facility:[facility] Start: 01-15-2025 End: 01-15-2025 Patient encounter procedure Leila LAMBERT [facility] Start: 01-10-2025 End: 01-10-2025 Lab Drop off Maricruz LeaElana Johnson [facility] Start: 01-10-2025 End: 01-10-2025 ambulatory Leilacristian LAMBERT Facility:[facility] Start: 01-10-2025 End: 01-10-2025 Patient encounter procedure Lelia LAMBERT [facility] Start: 01-05-2025 End: 01-09-2025 Emergency department patient visit TRACY VALENCIASoha [facility] Start: 01-05-2025 End: 01-08-2025 ambulatory [facility] Start: 01-02-2025 End: 01-02-2025 Emergency department patient visit [facility] Start: 12-11-2024 End: 12-11-2024 ambulatory Anjana Ross [facility] Work Phone: Start: 12-11-2024 End: 12-11-2024 Departed Referred Anjana [facility] DPM Work Phone: [facility] Start: 10-16-2024 End: 10-16-2024 ambulatory Leilacristian LAMBERT Facility: [facility] Start: 10-16-2024 End: 10-16-2024 Patient encounter procedure Leila LAMBERT [facility] Start: 10-10-2024 End: 10-10-2024 Bamboo flowsheet Melo Reilly DPM Work Phone: [facility] Start: 10-10-2024 End: 10-10-2024 Bamboo flowsheet Melo Reilly DPM Work Phone: [facility] Start: 10-10-2024 End: 10-10-2024 Office outpatient visit 15 minutes Melo Reilly DPM Work Phone: [facility] Comment on above: Arthritis of left an kle (Primary Dx); Other synovitis and tenosynovitis, left ankle and foot; Chronic pain of left ankle Start: 10-10-2024 End: 10-10-2024 ambulatory MELO REILLY Not Available Start: 10-03-2024 End: 10-03-2024 ambulatory Leila LAMBERT Facility[facility] Start: 10-03-2024 End: 10-03-2024 Lab Drop off Leila LAMBERT [facility] Start: 10-03-2024 End: 10-03-2024 ambulatory Leila LAMBERT Facility:[facility] Start: 10-03-2024 End: 10-03-2024 Patient encounter procedure Leila LAMBERT [facility] Start: 09-26-2024 End: 09-26-2024 Office outpatient visit 15 minutes Kerri Benitez DPM Work Phone: [facility] Comment on above: Arthritis of left an kle (Primary Dx); Other enthesopathy of left foot and ankle; Chronic pain of left ankle; Other synovitis and tenosynovitis, left ankle and foot Start: 09-26-2024 End: 09-26-2024 ambulatory KERRI BENITEZ Not Available Start: 09-26-2024 End: 09-26-2024 Bamboo flowsheet Kerri Benitez DPM Work Phone: [facility] Start: 09-26-2024 End: 09-26-2024 Bamboo flowsheet Kerri Benitez DPM Work Phone: [facility] Start: 09-15-2024 End: 09-15-2024 Telephone encounter Carlota [facility] Start: 09-11-2024 End: 09-11-2024 Evaluation and management of inpatient TRACY CHAU [facility] Start: 09-05-2024 End: 09-05-2024 ambulatory [facility] Pat Phone Call Provider 1 [facility] Pre Admit Start: 09-05-2024 End: 09-05-2024 ambulatory [facility] Start: 08-28-2024 End: 08-28-2024 ambulatory [facility] Start: 08-24-2024 End: 08-30-2024 Telephone encounter Kerri Benitez DPM Work Phone: [facility] Comment on above: Advice Only Start: 08-23-2024 End: 08-23-2024 Office outpatient new 30 minutes Kerri Abram Shah BOILER INSTALLER-ORDER PROCESSOR Work Phone: [facility] Comment on above: Diarrhea, unspecifie d type (Primary Dx); Fecal urgency; Personal history of prostate cancer Start: 08-23-2024 End: 08-23-2024 [facility] Start: 07-18-2024 End: 07-18-2024 Bamboo flowsheet Kerri Benitez DPM Work Phone: [facility] Start: 07-18-2024 End: 07-18-2024 Bamboo flowsheet Kerri Benitez DPM Work Phone: [facility] Start: 07-18-2024 End: 07-18-2024 Office outpatient visit 25 minutes Kerri Benitez DPM Work Phone: [facility] Comment on above: Arthritis of left an kle (Primary Dx); Other enthesopathy of left foot and ankle; Chronic pain of left ankle; Other synovitis and tenosynovitis, left ankle and foot; Difficulty walking Start: 07-18-2024 End: 07-18-2024 ambulatory KERRI BENITEZ Not Available Start: 06-23-2024 End: 06-23-2024 ambulatory KERRI BENITEZ Not Available Start: 06-22-2024 End: 06-22-2024 ambulatory [facility] Work Phone: Start: 06-22-2024 End: 06-22-2024 Patient encounter procedure [facility] Work Phone: Start: 06-15-2024 End: 06-15-2024 ambulatory KERRI Zhu BENITEZ Not Available Start: 05-16-2024 End: 05-16-2024 ambulatory KERRI Zhu BENITEZ Not Available Start: 03-17-2024 End: 03-17-2024 ambulatory Leila LAMBERT Facility[facility] Start: 03-17-2024 End: 03-17-2024 Lab Drop off Leila LAMBERT [facility] Start: 03-17-2024 End: 03-17-2024 ambulatory Leila LAMBERT Facility:[facility] Start: 03-17-2024 End: 03-17-2024 Patient encounter procedure Leila LAMBERT [facility] Start: 03-01-2024 End: 03-01-2024 ambulatory [facility] Work Phone: Start: 03-01-2024 End: 03-01-2024 Patient encounter procedure [facility] Work Phone: Start: 01-05-2024 Non[facility] Work Phone: [facility] Work Phone: Start: 01-05-2024 End: 01-05-2024 ambulatory Fred Kirk Facility:[facility] Start: 01-04-2024 End: 01-04-2024 Patient encounter procedure Jhony Lux MD Work Phone: Radiation Oncology Comment on above: History of prostate cancer (Primary Dx); Prostate cancer (HCC) Start: 11-30-2023 End: 11-30-2023 ambulatory [facility] Work Phone: [facility] Work Phone: Start: 11-30-2023 End: 11-30-2023 Patient encounter procedure José Miguel [facility] Work Phone: [facility] [place] Work Phone: Start: 11-30-2023 End: 11-30-2023 Patient encounter procedure José Miguel [facility] Work Phone: [facility] Work Phone: Start: 09-13-2023 End: 09-13-2023 Patient encounter procedure Leila LAMBERT [facility] Start: 07-12-2023 End: 07-12-2023 Patient encounter procedure Leila LAMBERT [facility] Start: 07-06-2023 End: 07-06-2023 Patient encounter procedure Jhony Lux MD Work Phone: Radiation Oncology Comment on above: Malignant neoplasm o f prostate (HCC) (Primary Dx); Gynecomastia, male Start: 05-17-2023 End: 05-17-2023 Patient encounter procedure Leila LAMBERT [facility] Start: 05-12-2023 End: 05-12-2023 Patient encounter procedure Leila LAMBERT [facility] Start: 05-05-2023 End: 05-05-2023 ambulatory Imad Asaad Other [employer] Other Start: 05-05-2023 Office outpatient ne w 45 minutes Imad Charanjit [facility] Start: 03-08-2023 End: 03-08-2023 Patient encounter procedure Leila LAMBERT [facility] Start: 02-16-2023 End: 02-17-[address] LEILA LAMBERT . Facility: Start: 01-21-2023 End: 01-21-[address] Work Phone: [facility] Start: 01-21-2023 End: 01-21-20[address] Nutrition therapy [address] RD Work Phone: Nutrition Therapy Comment on above: Nutrition Telephone Start: 01-20-2023 ambulatory Facility:[id number] Start: 01-20-2023 End: 01-20-2023 Patient encounter procedure Edgar Lopez [facility] Start: 09-04-2022 End: 09-04-2022 Patient encounter procedure Leila LAMBERT [facility] Start: 07-15-2022 End: 07-15-2022 Patient encounter procedure Pascale Wahl [facility] Start: 07-07-2022 End: 07-07-2022 Patient encounter procedure [...] End: 05-27-2022 Patient encounter procedure Maricruz LeaElana Tuckersven [facility] Start: 05-21-2022 End: 05-21-[address] LEILA LAMBERT . Facility:[facility] Start: 05-21-2022 End: 05-21-2022 Patient encounter procedure Jhony Lux MD Work Phone: Radiation Oncology Comment on above: Malignant neoplasm o f prostate (HCC) (Primary Dx) Start: 05-15-2022 Encounter for preprocedural cardiovascular examination DR LEILA LAMBERT . [facility] Start: 05-15-2022 Encounter for preprocedural laboratory examination DR LEILA LAMBERT . [facility] Start: 05-14-2022 End: 05-15-[address] LEILA LAMBERT . Facility:[facility] Start: 05-14-2022 End: 05-15-2022 Encounter for preprocedural cardiovascular examination DR LEILA LAMBERT . Facility:[facility] Start: 05-12-2022 Patient encounter procedure Jhony Lux MD Work Phone: [facility] Start: 05-12-2022 Radiation Oncology Note Jhony Lux MD Work Phone: Radiation Oncology Comment on above: Treatment Planning Start: 05-05-2022 End: 05-05-2022 Patient encounter procedure Jhony Lux MD Work Phone: Radiation Oncology Comment on above: Malignant neoplasm o f prostate (HCC) (Primary Dx) Start: 05-05-2022 Radiation Oncology Note Jhony Lux MD Work [...] Start: 03-25-2022 Patient encounter procedure [facility] Provider [facility] Start: 03-23-2022 End: 03-23-2022 Patient encounter procedure G Johan Lux MD Work Phone: Radiation Oncology Comment on above: Malignant neoplasm o f prostate (HCC) (Primary Dx) Start: 03-20-2022 Patient encounter procedure Ccf Provider [facility] Department Start: 03-20-2022 Telephone encounter Jhony Johan Lux MD Work Phone: Radiation Oncology Comment on above: Orders Start: 03-16-2022 End: 03-16-2022 Subsequent hospital visit by physician Jhony Lux MD Work Phone: Radiology Pet CT Start: 03-16-2022 Patient encounter procedure Jhony Johan Lux MD Work Phone: MOLLY Start: 03-16-2022 [...] Date Procedure Procedure Detail Performing Clinician Start: 01-10-2025 PSA screening [facility] Provi kaylen Start: 01-06-2025 Lipid 1996 panel - S frantz or Plasma ECTOR Lux MD Work Phone: Start: 09-11-2024 Colonoscopy Carlota coleman [employer] Start: 09-06-2023 PSA screening [facility] Provi kaylen Start: 02-16-2023 End: 02-16-2023 PSA screening [facility] Provider Comment on above: Performed By: #### P SAD #### [facility] [address] [place] [address] Dr. Lui Maloney Start: 06-23-2022 Lipid 1996 panel - S frantz or Plasma ECTOR Lux MD Work Phone: Start: 05-21-2022 Implantation of radioactive seed into prostate Pascale Wahl Start: 04-02-2022 Blood count complete auto&auto difrntl wbc Jhony Johan Lux MD Work Phone: Start: 02-05-2022 MRI-US fusion guided transrectal biopsy of prostate Maricruz Johnson Start: 01-08-2022 MRI of prostate Maricruz delcid Colonoscopy Maricruz Johnson Plan of Treatment Date Care Activity Detail Author Start: 09-11-2034 Screening for malign ant neoplasm of colon [facility] Start: 01-10-2030 Prostate specific an tigen measurement Prostate Cancer Screening Discussion [facility] Start: 01-06-2030 Lipid panel Lipid Screening [facility] Start: 09-11-2029 Screening for malign ant neoplasm of colon Colonoscopy [facility] Start: 09-06-2028 Prostate specific an tigen measurement Prostate Cancer Screening Discussion [facility] Start: 02-17-2028 PROSTATE CANCER SCRE ENING DISCUSSION PROSTATE CANCER SCREENING DISCUSSION [facility] Start: 01-08-2028 Diabetes Screening Diabetes Screenin g [facility] Start: 07-03-2027 PROSTATE CANCER SCRE ENING DISCUSSION PROSTATE CANCER SCREENING DISCUSSION [facility] Start: 06-23-2027 Lipid panel Lipid Screening [facility] Start: 06-23-2027 LIPID SCREEN LIPID SCREEN [facility] Start: 01-24-2026 End: 01-24-2026 Patient encounter procedure 01/24/2026 10:00 AM EST Office Visit Radiation Oncology [address] [place] [address] [place] [address] [place] [address] [place] [address] 1 year follow up Radiation Oncology Comment on above: 1 year follow up Start: 01-23-2026 End: 04-24-2026 Prostate specific Ag [Mass/volume] in Serum or Plasma PROSTATE-SPECIFIC ANTIGEN DIAGNOSTIC Lab Routine Prostate cancer (HCC) Expected: 01/23/2026, Expires: 04/24/2026 [facility] Work Phone: Comment on above: Expected: 01/23/2026 , Expires: 04/24/2026 Start: 01-16-2026 Adult BMI Screening Adult BMI Screen ing [facility] Start: 01-16-2026 Tobacco Screening Tobacco Screening [facility] Start: 09-11-2025 Adult BMI Screening Adult BMI Screen ing [facility] Start: 09-11-2025 Tobacco Screening Tobacco Screening [facility] Start: 08-28-2025 Adult BMI Screening Adult BMI Screen ing [facility] Start: 08-23-2025 Adult BMI Screening Adult BMI Screen ing [facility] Start: 08-23-2025 Tobacco Screening Tobacco Screening [facility] Start: 07-23-2025 ambulatory Ambulatory Facility:[facility] Start: 07-02-2025 ambulatory Ambulatory Facility:[facility] Start: 06-23-2025 Diabetes Screening Diabetes Screenin g [facility] Start: 06-22-2025 DIABETES SCREEN DIABETES SCREEN [facility] Start: 04-03-2025 Covid-19 Vaccine () Covid-19 Vaccine () [facility] Start: 03-05-2025 ambulatory Ambulatory Facility:[facility] Start: 03-01-2025 ambulatory Ambulatory Facility:[facility] Start: 01-02-2025 End: 01-02-2025 Patient encounter procedure 01/02/2025 1:45 PM EST Office Visit Radiation Oncology [address] [place] [address] Jhony Lux MD [address] [place] [address] 1 yr rv Radiation Oncology Comment on above: 1 yr rv Start: 11-29-2024 Advance Directive Discussion Advance Directive Discussion [facility] Start: 11-29-2024 COVID-19 Vaccine () COVID-19 Vaccine () [facility] Start: 10-10-2024 End: 10-10-2024 Patient encounter procedure 10/10/2024 9:00 AM EST Office Visit [facility] [address] [place] [address] Melo Reilly, DPM [address] [place] [address] [facility] Start: 09-26-2024 End: 09-26-2024 Patient encounter procedure [facility] Comment on above: Arrived Start: 09-11-2024 End: 09-11-2024 Admission to same day surgery center 09/11/2024 11:30 AM EDT - 09/11/2024 12:00 PM EDT Surgery [facility] [address] [facility] [id number] Tracy Chau, DO [address] [place], [place] [phone] COLONOSCOPY DIAGNOSTIC / SCREENING [70186 (CPT )] [facility] Comment on above: COLONOSCOPY DIAGNOST IC / SCREENING [90459 (CPT )] Start: 09-11-2024 End: 09-11-2024 Colonoscopy flx dx w/collj spec when pfrmd COLONOSCOPY DIAGNOSTIC / SCREENING diarrhea 09/11/2024 11:30 AM EDT [facility] Start: 09-11-2024 Subsequent hospital visit by physician 09/11/2024 11:30 AM EDT Hospital Encounter [facility] - Surgery [address] [facility] [phone] Tracy Chau, DO [address] [place], [place] [phone] [facility] Start: 09-05-2024 End: 09-05-2024 ambulatory 09/05/2024 2:50 PM EDT Support Visit [facility] - Pre Admit [address] [place] [phone] [facility] Pre Admit Start: 08-28-2024 End: 08-28-2024 Patient encounter procedure 08/28/2024 11:30 AM EDT Appointment [facility] - CT Imaging [address] [place] [phone] [facility] Imaging Start: 08-17-2024 End: 08-17-2024 Patient encounter procedure 08/17/2024 3:15 PM EDT Office Visit [facility] [address] [place] [phone] Kerri Benitez, DPM [address] [place], [place] [phone] [facility] Start: 07-30-2024 Covid-19 Vaccine () Covid-19 Vaccine () [facility] Start: 07-30-2024 Influenza vaccination C [facility] Start: 07-18-2024 End: 07-18-2024 Patient encounter procedure 07/18/2024 1:15 PM EDT Office Visit [facility] [address] [place] [phone] Kerri Benitez, DPM [address] [place] [address] Arrived [facility] Comment on above: Arrived Start: 2024 Abdominal aortic ane urysm screening Abdominal Aortic Aneurysm (AAA) Screen [facility] Start: 2024 Advance Directive Discussion Advance Directive Discussion [facility] Start: 2024 Fall Risk Screening Fall Risk Screen [facility] Start: 2024 Pneumococcal Vaccine : 65+ Years (1 of 1 - PCV) Pneumococcal Vaccine: 65+ Years (1 of 1 - PCV) [facility] Start: 01-05-2024 [facility] Start: 11-29-2023 Depression Assessment Depression Ass essment [facility] Start: 07-30-2023 Covid-19 Vaccine ( season) Covid-19 Vaccine () [facility] Start: 07-30-2023 Influenza vaccination [facility] Start: 11-29-2022 DEPRESSION ASSESSMENT DEPRESSION ASS ESSMENT [facility] Start: 07-30-2022 Influenza vaccination [facility] Start: 07-05-2022 End: 09-04-2022 Prostate specific Ag [Mass/volume] in Serum or Plasma PSA/PROSTSPECAG DIAG Lab Routine Malignant neoplasm of prostate (HCC) Expected: 07/05/2022, Expires: 09/04/2022 [facility] Work Phone: Comment on above: Expected: 07/05/2022 , Expires: 09/04/2022 Start: 04-28-2022 End: 06-28-2022 UA DIP B/O UA DIP B/O Lab Routine Malignant neoplasm of prostate (HCC) Dysuria Expected: 04/28/2022, Expires: 06/28/2022 [facility] Work Phone: Comment on above: Expected: 04/28/2022 , Expires: 06/28/2022 Start: 04-20-2022 End: 06-20-2022 Urinalysis complete panel - Urine URINALYSIS, WITH MICROSCOPIC Lab Routine Malignant neoplasm of prostate (HCC) Expected: 04/20/2022, Expires: 06/20/2022 [facility] Work Phone: Comment on above: Expected: 04/20/2022 , Expires: 06/20/2022 Start: 04-02-2022 End: 06-02-2022 CBC W Auto Differential panel - Blood CBC + DIFF Lab Routine Prostate cancer (HCC) Expected: 04/02/2022, Expires: 06/02/2022 [facility] Work Phone: Comment on above: Expected: 04/02/2022 , Expires: 06/02/2022 Start: 08-21-2021 COVID-19 VACCINE (3 - Booster for Moderna series) COVID-19 VACCINE (3 - Booster for Moderna series) [facility] Start: 05-16-2021 COVID-19 VACCINE (3 - Booster for Moderna series) COVID-19 VACCINE (3 - Booster for Moderna series) [facility] Start: 05-16-2021 COVID-19 VACCINE (3 - Moderna series) COVID-19 VACCINE (3 - Moderna series) [facility] Start: 04-18-2021 COVID-19 Vaccine (3 - Moderna risk series) COVID-19 Vaccine (3 - Moderna risk series) [facility] Start: 2019 RSV Vaccine (1 - 1-d ose 60+ series) RSV Vaccine (1 - 1-dose 60+ series) [facility] Start: 2019 RSV Vaccine (1 - Ris k 60-74 years 1-dose series) RSV Vaccine (1 - Risk 60-74 years 1-dose series) [facility] Start: 2014 PROSTATE CANCER SCRE ENING DISCUSSION PROSTATE CANCER SCREENING DISCUSSION [facility] Start: 2009 Screening for malign ant neoplasm of lung Lung Cancer Screening [facility] Start: 2009 SHINGRIX VACCINE (1 of 2) VAZQUEZ GRIX VACCINE (1 of 2) [facility] Start: 2004 COLOGUARD (FIT-DNA) COLOGUARD (FIT-D NA) [facility] Start: [address] [facility] Start: 2004 COLORECTAL CANCER SCREENING COLORECTAL CANCER SCREENING [facility] Start: [address] COLONOGRAPHY [facility] Start: 2004 DIABETES SCREEN DIABETES SCREEN [facility] Start: 2004 FECAL OCCULT BLOOD FECAL OCCULT BLOO D [facility] Start: 2004 Screening for malign ant neoplasm of colon [facility] Start: 2004 SIGMOIDOSCOPY SIGMOIDOSCOPY [facility] Start: 1994 LIPID SCREEN LIPID SCREEN [facility] Start: 1978 Administration of varicella zoster vaccine Zoster (Shingles) Vaccine (1 of 2) [facility] Start: 1978 DTaP,Tdap and Td Vac cines (1 - Tdap) DTaP,Tdap and Td Vaccines (1 - Tdap) [facility] Start: 1978 SHINGRIX VACCINE (1 of 2) VAZQUEZ GRIX VACCINE (1 of 2) [facility] Start: [address] [facility] Start: 1977 Adult BMI Follow Up Plan Adult BMI Follow Up Plan [facility] Start: 1977 Anxiety Screening Anxiety Screening [facility] Start: 1977 Depression Screening Depression Scre ening [facility] Start: 1977 HEPATITIS C SCREENING HEPATITIS C [facility] Start: 1977 Hepatitis C screening Hepatitis C [facility] Start: 1977 HIV SCREENING HIV SCREENING [facility] Start: 1977 HIV screening HIV Screening [facility] Start: 1971 Adult depression scr eening assessment DEPRESSION SCREENING [facility] Start: 1965 PNEUMOCOCCAL (1 - PCV) PNEUMOCOCCAL (1 - PCV) [facility] Start: 1965 Pneumococcal vaccination Pneum ococcal Vaccine (1 of 2 - PCV) [facility] Start: 1965 Pneumococcal Vaccine : 65+ (1 of 2 - PCV) Pneumococcal Vaccine: 65+ (1 of 2 - PCV) [facility] Start: 1959 Abdominal aortic ane urysm screening Abdominal Aortic Aneurysm Screening [facility] Start: 1959 Medicare Annual Well ness Visit Medicare Annual Wellness Visit [facility] [employer] Start: 1959 Screening for malign ant neoplasm of colon [facility] End: 08-23-2025 Colonoscopy Colonoscopy GI Routine Diarrhea, unspecified type 1 Occurrences starting 08/23/2024 until 08/23/2025 [employer] Work Phone: Comment on above: 1 Occurrences starti ng 08/23/2024 until 08/23/2025 Endomysial antibody IgA level [facility] Gliadin peptide IgA Ab [Units/volume] in Serum [facility] Gliadin peptide IgG Ab [Units/volume] in Serum [facility] IgA [Mass/volume] in Serum or Plasma [facility] Tissue transglutamin ase IgA Ab [Units/volume] in Serum [facility] Tissue transglutamin ase IgG Ab [Units/volume] in Serum [facility] Immunizations Immunization Date Immunization Notes Care Provider Jose omer 09-29-2021 SARS-CoV-2 (COVID-19 ) Ad26 vaccine, recombinant Maricruz Johnson [facility] 03-21-2021 SARS-CoV-2 (COVID-19 ) mRNA-1273 vaccine Liela LAMBERT [facility] Comment on above: Result Comment: 2022: 59 02-27-2021 SARS-CoV-2 (COVID-19 ) Ad26 vaccine, recombinant Maricruz Johnson [facility] 02-21-2021 SARS-CoV-2 (COVID-19 ) mRNA-1273 vaccine Leila LAMBERT [facility] Comment on above: Result Comment: 2022: 59 01-27-2021 SARS-CoV-2 (COVID-19 ) Ad26 vaccine, recombinant Maricruz Johnson [facility] 10-02-2019 influenza virus vaccine, unspecified formulation Leila LAMBERT [facility] 09-26-2018 influenza virus vaccine, unspecified formulation Leila LAMBERT [facility] 09-17-2017 influenza virus vaccine, unspecified formulation Leila LAMBERT [facility] Payers Date Payer Category Payer Self-pay [id number] 2022 Medicaid [id number] 2021 Medicare AETNA MEDICARE A ETNA MEDICARE ASSURE HMO D SNP [id number] 2021-Present [phone] [address] [place] [address] Medicare [id number] 2021 Medicare [id number]. [id number] 2021 Medicare [place] Care[place] [id number] 2021 Medicare HMO [employer] MEDICARE [id number] 2016 Medicaid [id number]. 1.13.159.2. [id number] 1959 Medicaid [id number] 1959 Private Health Insurance [id number] 1959 Unknown [id number] 2.16.840.1.559220.3.579.2. 356 1959 Unknown [id number] 2.16.840.1.299505.3.579.2. 593 1959 Unknown [id number] 2.16.840.1.844863.3.579.2. 593 1959 Unknown [id number] 2.16.840.1.035501.3.579.2. 593 1959 Unknown [id number] 2.16.840.1.262249.3.579.2. 1259 1959 Unknown [id number] 2.16.840.1.428628.3.579.2. 1259 1959 Unknown [id number] 2.16.840.1.168958.3.579.2. 1259 1959 Unknown [id number] 2.16.840.1.518981.3.579.2. 1259 1959 Unknown [id number] 2.16.840.1.410327.3.579.2. 1259 1959 Unknown [id number] 2.16.840.1.257611.3.579.2. 1259 1959 Unknown [id number] 2.16.840.1.909230.3.579.2. 1259 1959 Unknown [id number] 2.16.840.1.992956.3.579.2. 727 1959 Unknown [id number] 2.16.840.1.462560.3.579.2. 727 1959 Unknown [id number] 2.16.840.1.687314.3.579.2. 727 1959 Unknown [id number] 2.16.840.1.406401.3.579.2. 727 1959 Unknown [id number] 2.16.840.1.330541.3.579.2. 727 1959 Unknown [id number] 2.16.840.1.889073.3.579.2. 1959 Unknown [id number] 2.16.840.1.693111.3.579.2. 1959 Unknown [id number] 2.16.840.1.177163.3.579.2. 1959 Unknown [id number] 2.16.840.1.488424.3.579.2. 128 1959 Unknown [id number] 2.16.840.1.083127.3.579.2. 1285 1959 Unknown [id number] 2.16.840.1.111412.3.579.2. 1285 1959 Unknown [id number] 2.16.840.1.731058.3.579.2. 1285 1959 Unknown [id number] 2.16.840.1.849644.3.579.2. 1285 1959 Unknown [id number] 2.16.840.1.852300.3.579.2. 1285 1959 Unknown [id number] 2.16.840.1.623321.3.579.2. 1285 1959 Unknown [id number] 2.16840.1.663340.3.579.2. 1285 1959 Unknown [id number] 2.16.840.1.389020.3.579.2. 128 1959 Unknown [id number] 2.16.840.1.109899.3.579.2. 1959 Unknown [id number] 2.16.840.1.317537.3.579.2. 1959 Unknown [id number] 2.16.840.1.189685.3.579.2. 1959 Unknown [id number] 2.16.840.1.963953.3.579.2. 727 1959 Unknown [id number] 2.16.840.1.429964.3.579.2. 727 1959 Unknown [id number] 2.16.840.1.302892.3.579.2. 727 Medicare [id number] 2.16.840.1.340132.19 Unknown [id number] 2.16.840.1.637600.3.579.2. 531 Unknown [id number] 2.16.840.1.204789.3.579.2. 531 Social History Date Type Detail Facility Start: 04-29-1977 End: 01-04-2024 Tobacco smoking status NHIS Smokes tobacco daily [facility] Start: 11-29-1974 History of tobacco use Cigarette Smo ker [facility] Start: 03-11-2022 End: 07-06-2023 Cigarettes smoked current (pack per day) - Reported 0.5 [facility] Start: 03-11-2022 End: 01-04-2024 Tobacco use and exposure Former smokeless tobacco user [facility] Start: 03-11-2022 End: 01-04-2024 Alcohol intake Current drinker of alcohol (finding) [facility] Start: 1960 Sex Assigned At Not on file C [facility] Start: 03-01-2022 End: 07-07-2022 Exposure to SARS-CoV-2 (event) Not sure [facility] Start: 12-22-2021 Tobacco smoking status Heavy t obacco smoker (finding) [facility] Start: 06-18-2022 End: 07-06-2023 Sex Assigned At Male [facility] Start: 05-17-2023 End: 01-15-2025 Tobacco smoking status Ex-smoker (finding) [facility] Tobacco smoking status Never [facility] Start: 1960 Sex Assigned At Male F [facility] Start: 04-30-2023 Tobacco smoking stat us NHIS Never smoked tobacco [facility] Start: 04-30-2023 Tobacco use and exposure Smokeless tobacco non-user [facility] Start: 06-15-2024 End: 07-18-2024 Alcoholic beverage intake Lifetime non-drinker (finding) [facility] Start: 07-04-2015 End: 12-13-2024 Sex Male (finding) [facility] Start: 11-29-1974 History of tobacco use Current smoke r [facility] Start: 09-05-2024 End: 01-16-2025 Alcoholic beverage intake Ex-drinker (finding) [employer] Has the [employer], or [facility] [facility] threatened to shut off services in your home in past 12Mo No [employer] Goals Date Patient Goal Desired Activity /State Personal health goal Comment on above: Formatting of this n ote might be different from the original. Evaluation of progress towards goal: safe transition from hospital to home with family support. Personal health goal Comment on above: Formatting of this n ote might be different from the original. Evaluation of progress towards goal: Patient denies home going needs. Functional Status Date Assessment Result Facility 02-06-2025 Functional Status No [facility] 01-15-2025 Functional Status N/A [facility] 10-16-2024 Functional Status N/A [facility] 03-17-2024 Functional Status N/A [facility] 09-13-2023 Functional Status N/A [facility] 07-12-2023 Functional Status N/A [facility] 05-17-2023 Functional Status [facility] 03-08-2023 Functional Status N/A [facility] 09-04-2022 Functional Status N/A [facility] 07-15-2022 Functional Status N/A [facility] Molly Clinical Notes 03-11-2022 to 02-20-2025 Note Date & Type Note Facility 02-20-2025 Note Patient Education Urology Dysuria Dysuria is pain or discomfort during urination. The pain or discomfort may be felt in the part of the body that drains urine from the bladder (urethra) or in the surrounding tissue of the genitals. The pain may also be felt in the groin area, lower abdomen, or lower back. You may have to urinate frequently or have the sudden feeling that you have to urinate (urgency). Dysuria can affect anyone, but it is more common in females. Dysuria can be caused by many different things, including: ??? Urinary tract infection. ??? Kidney stones or bladder stones. ??? Certain STIs (sexually transmitted infections), such as chlamydia. ??? Dehydration. ??? Inflammation of the tissues of the vagina. ??? Use of certain medicines. ??? Use of certain soaps or scented products that cause irritation. Follow these instructions at home: Medicines ??? Take qyuv-qll-oikflyh and prescription medicines only as told by your health care provider. ??? If you were prescribed an antibiotic medicine, take it as told by your health care provider. Do not stop taking the antibiotic even if you start to feel better. Eating and drinking ??? Drink enough fluid to keep your urine pale yellow. ??? Avoid caffeinated beverages, tea, and alcohol. These beverages can irritate the bladder and make dysuria worse. In males, alcohol may irritate the prostate. General instructions ??? Watch your condition for any changes. ??? Urinate often. Avoid holding urine for long periods of time. ??? If you are female, you should wipe from front to back after urinating or having a bowel movement. Use each piece of toilet paper only once. ??? Empty your bladder after sex. ??? Keep all follow-up visits. This is important. ??? If you had any tests done to find the cause of dysuria, it is up to you to get your test results. Ask your health care provider, or the department that is doing the test, when your results will be ready. Contact a health care provider if: ??? You have a fever. ??? You develop pain in your back or sides. ??? You have nausea or vomiting. ??? You have blood in your urine. ??? You are not urinating as often as you usually do. Get help right away if: ??? Your pain is severe and not relieved with medicines. ??? You cannot eat or drink without vomiting. ??? You are confused. ??? You have a rapid heartbeat while resting. ??? You have shaking or chills. ??? You feel extremely weak. Summary ??? Dysuria is pain or discomfort while urinating. Many different conditions can lead to dysuria. ??? If you have dysuria, you may have to urinate frequently or have the sudden feeling that you have to urinate (urgency). ??? Watch your condition for any changes. Keep all follow-up visits. ??? Make sure that you urinate often and drink enough fluid to keep your urine pale yellow. This information is not intended to replace advice given to you by your health care provider. Make sure you discuss any questions you have with your health care provider. Document Revised: 06/27/2021 Document Reviewed: 06/27/2021 [employer] Patient Education ? 2023 [employer] [facility] 02-06-2025 Hospital Discharg e instructions Patient Education 02/06/2025 13:42:33 EU - Cystoscopy Discharge Instructions (CUSTOM) Cystoscopy Voiding after the procedure: there may be some pain, burning, urgency, frequency and blood tinged urine following the procedure. These symptoms usually resolve within 2-5 days. Drink the amount of fluid it takes to keep the urine pink to yellow or clear in color. Drinking enough water and fluids will help to ease any discomfort after your procedure. If you are having problems that seem out of the ordinary, please call. If unable to contact your physician and you feel it is an emergency, go to the nearest emergency room or call 911 Diet you may resume your normal diet. Activity you may resume your normal activities Call if you have a fever over 100 degrees. Follow Up Care 01/16/2025 08:30:41 With:Leila LAMBERT Address: [address] [place] [id number] Business (1) When: Unknown Comments:Office will call to schedule follow up [facility] 02-06-2025 Evaluation + Plan note Extrac ori from: Title:Urology Progress Note Author:Schuyler LAMBERT MD Date:02/06/25 Impression and Plan Impression: #1. This gentleman's erratic urination seems to be caused by his new tumor growth within the prostatic urethra. Plan: #1. He is getting scheduled for cystoscopy and transurethral resection of prostate tumor under anesthesia. Future Appointments Appointment Date:03/01/2025 11:00:00 AM Scheduled Provider: Location:[facility] Appointment Type:URO Nurse Visit Appointment Date:03/05/2025 11:30:00 AM Scheduled Provider:Leila LAMBERT MD [facility] Appointment Type:URO Office Visit Appointment Date:07/02/2025 10:00:00 AM Scheduled Provider: [facility] Appoint[facility] Type:URO Nurse Visit Appointment Date:07/23/2025 10:15:00 AM Scheduled Provider:Leila LAMBERT MD [facility] App[facility] Type:URO Office Visit [facility] [id number] NoteProgress Note-Physician Patient: MEREDITH VILLATORO Age: 64 years Sex: Male : 1960 Associated Diagnoses: None Author: Leila LAMBERT MD Subjective X this gentleman has high-grade prostate cancer for which she has had external beam radiation and he is on total androgen blockade. He has developed incomplete emptying and intermittency. 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 Review of Systems ROS reviewed as documented in chart Health Status Allergies: Allergic Reactions (Selected) No Known Medication Allergies Current medications: Home Medications (8) Active atorvastatin 10 mg Tab Cipro 500 mg Tab 500 mg = 1 tab(s), Oral, Daily cyclobenzaprine 10 mg Tab lisinopril 10 mg Tab Metoprolol tartrate 50 mg Tab Myrbetriq 50 mg oral tablet, extended release 100 mg = 2 tab(s), Oral, Daily naproxen 500 mg Tab tamsulosin 0.4 mg Cap 0.4 mg = 1 cap(s), Oral, BID Problem list: All Problems Arthritis / SNOMED CT 9996528 / Confirmed Hypertension / SNOMED CT 0253288990 / Confirmed High cholesterol / SNOMED CT 12179296 / Confirmed Bilateral hydrocele / SNOMED CT 6118477834 / Confirmed Prostate nodule / SNOMED CT 4054502372 / Confirmed 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 Prostate cancer / SNOMED CT 9949895752 / Confirmed Epididymitis / SNOMED CT 57561595 / Confirmed Dysuria / SNOMED CT 45326979 / Confirmed Nocturia / SNOMED CT 815296233 / Confirmed Urge incontinence / SNOMED CT 280979275 / Confirmed Feeling of incomplete bladder emptying / SNOMED CT 259217806 / Confirmed Prostatitis / SNOMED CT 51645102 / Confirmed Gross hematuria / SNOMED CT 486757466 / Confirmed History of prostatitis / SNOMED CT 9473135220 / Confirmed Rising PSA following treatment for malignant neoplasm of prostate / SNOMED CT 3010770610 / Confirmed Histories Past Medical History: No active or resolved past medical history items have been selected or recorded. Family History: Hypertension Mother Procedure history: Brachytherapy ([id number]) on 05/21/2022 at 61 Years. MRI-US fusion guided transrectal biopsy of prostate ([id number]) on 02/05/2022 at 61 Years. MRI of prostate ([id number]) on 01/08/2022 at 61 Years. Colonoscopy ([id number]). Social History Social & Psychosocial Habits Tobacco 01/15/2025 Tobacco Use: Former smoker, quit more Concerns about tobacco use in household: No Smoking Cessation Yes . Objective He is resting comfortably and in no acute distress. Abdomen is soft and nontender. External genitalia are unremarkable. Impression and Plan Impression: #1. This gentleman's erratic urination seems to be caused by his new tumor growth within the prostatic urethra. Plan: #1. He is getting scheduled for cystoscopy and transurethral resection of prostate tumor under anesthesia.[facility] HealthcareComment on above: Result Comment: Electronically Signed By: PETRA OVIEDO, Leila Mitchell\Date and Time Signed: 02/06/25 13:50 [id number] NotePatient Education Custom Cystoscopy ??? Voiding after the procedure: there may be some pain, burning, urgency, frequency and blood tinged urine following the procedure. These symptoms usually resolve within 2-5 days. Drink the amount of fluid it takes to keep the urine pink to yellow or clear in color. Drinking enough water and fluids will help to ease any discomfort after your procedure. ??? If you are having problems that seem out of the ordinary, please call. ??? If unable to contact your physician and you feel it is an emergency, go to the nearest emergency room or call 911 ??? Diet ??? you may resume your normal diet. ??? Activity ??? you may resume your normal activities ??? Call if you have a fever over 100 degrees.[facility] 01-23-2025 NoteHNO ID: [id number] Author: SHARON OCAMPO RN Service: ? Author Type: Registered Nurse Type: Progress Notes Filed: 01/30/2025 09:41 Note Text: AUA= 20[facility]02-25-2025 History of Present illness Narrative * Sharon Ocampo RN - 01/23/2025 2:03 PM EST AUA= 20 * Jhony Lux MD - 01/23/2025 9:38 AM EST Radiation Oncology - Follow Up Note PATIENT [...] 56 sources, 94.53 mCi INTERVAL HISTORY: Patient states he is feeling very well. Did have some recent rectal bleeding and has follow-up with GI. Continued urinary urgency concerns. No dysuria or hematuria. CT abdomen and pelvis 01/05/2025:1. Changes of the descending and proximal sigmoid colon worrisome for an ischemia. No evidence of transmural bowel compromise, at this time. Correlate clinically. 2. Prior subtotal sigmoidectomy, colorectal anastomosis. 3. Left basilar pulmonary nodules, similar to recent prior. Recommend follow-up imaging. PSA HISTORY: PSA (ng/mL) Date Value 07/03/2022 0.07 PSA. (no units) Date Value 01/10/2025 0.5 09/06/2023 <0.1 02/16/2023 0.24 ALLERGIES No Known Allergies mirabegron (MYRBETRIQ) 50 mg Tb24 Take 100 mg by mouth. tamsulosin (FLOMAX) 0.4 mg 1 capsule. indomethacin (INDOCIN) 50 mg capsule take 1 capsule by mouth twice a day with food or milk for 14 days ibuprofen (MOTRIN) 800 mg tablet Take 1 tablet by mouth every 8 hours as needed for pain. lisinopril (ZESTRIL, PRINIVIL) 10 mg tablet Take 10 mg by mouth. atorvastatin (LIPITOR) 10 mg tablet Take 10 mg by mouth once daily. metoprolol tartrate, short acting, (LOPRESSOR) 50 mg tablet Take 50 mg by mouth two times a day. FLUTICASONE PROPIONATE NASAL Use in the nose. REVIEW OF SYSTEMS: D/N = 4-6/2-3 Hematuria: none Dysuria: none Incontinence: none Urgency: moderate Catheter use: none - Total AUA Score: 20 Bowel movement frequency: 1-3/day Bowel movement quality: variable Blood per rectum: No Androgen deprivation: Previously treated with Lupron. PHYSICAL EXAM: BP 102/68 Pulse 94 Temp 36.2 C (97.2 F) Resp 18 Wt 104.2 kg (229 lb 11.5 oz) SpO2 97% BMI 38.52 kg/m KPS: 100 General Appearance: Alert and oriented. No acute distress. Rectal exam is deferred. ASSESSMENT/PLAN: Prostate adenocarcinoma, initial PSA 2.0, biopsy Yulee score 4 + 4 = 8 (grade group 4), clinical stage T2c, N0, M0, stage IIC [T1-T2, N0, M0, PSA <20, GG 4] (AJCC 8th ed.), s/p TRUS Random and MR Targeted biopsy. Prostate cancer (C61), 2019 NCCN Risk Group: High Risk Group 1 prostate cancer. Has had a slight rise in PSA though still very low. Has continued close follow-up with Dr. Lambert. 2. Rectal bleeding, possible late radiation proctitis versus related to known prior bowel related disease. Follow-up with GI as already arranged. Signed by: Jhony Lux MD documented in this encounterSt. [facility]25 NoteHNO ID: [id number] Author: Jhony LUX MD Service: ? Author Type: Physician Type: Progress Notes Filed: 01/30/2025 09:41 Note Text: Radiation Oncology - Follow Up Note PATIENT NAME: Meredith Villatoro PATIENT DIAGNOSIS: Prostate adenocarcinoma, initial PSA 2.0, biopsy Judd score 4 + 4 = 8 (grade group 4), clinical stage T2c, N0, M0, stage IIC [T1-T2, N0, M0, PSA <20, GG 4] (AJCC 8th ed.), s/p TRUS Random and MR Targeted biopsy. Prostate cancer (C61), 2018 NCCN Risk Group: High Risk Group RADIATION SUMMARY: Pelvis and prostate external radiation: 03/23/22 - 04/24/22 Prostate Brachytherapy: 05/21/22 DELIVERED DOSE: Area: PELVIS: 45Gy in 25 fractions, 2 ARCS, VMAT, 10MV WITH DAILY CBCT PROSTATE: 100Gy, Pd-103, 56 sources, 94.53 mCi INTERVAL HISTORY: Patient states he is feeling very well. Did have some recent rectal bleeding and has follow-up with GI. Continued urinary urgency concerns. No dysuria or hematuria. CT abdomen and pelvis 01/05/2025:1. Changes of the descending and proximal sigmoid colon worrisome for an ischemia. No evidence of transmural bowel compromise, at this time. Correlate clinically. 2. Prior subtotal sigmoidectomy, colorectal anastomosis. 3. Left basilar pulmonary nodules, similar to recent prior. Recommend follow-up imaging. PSA HISTORY: PSA (ng/mL) Date Value 07/03/2022 0.07 PSA. (no units) Date Value 01/10/2025 0.5 09/06/2023 <0.1 02/16/2023 0.24 ALLERGIES No Known Allergies mirabegron (MYRBETRIQ) 50 mg Tb24 Take 100 mg by mouth. tamsulosin (FLOMAX) 0.4 mg 1 capsule. indomethacin (INDOCIN) 50 mg capsule take 1 capsule by mouth twice a day with food or milk for 14 days ibuprofen (MOTRIN) 800 mg tablet Take 1 tablet by mouth every 8 hours as needed for pain. lisinopril (ZESTRIL, PRINIVIL) 10 mg tablet Take 10 mg by mouth. atorvastatin (LIPITOR) 10 mg tablet Take 10 mg by mouth once daily. metoprolol tartrate, short acting, (LOPRESSOR) 50 mg tablet Take 50 mg by mouth two times a day. FLUTICASONE PROPIONATE NASAL Use in the nose. REVIEW OF SYSTEMS: D/N = 4-6/2-3 Hematuria: none Dysuria: none Incontinence: none Urgency: moderate Catheter use: none - Total AUA Score: 20 Bowel movement frequency: 1-3/day Bowel movement quality: variable Blood per rectum: No Androgen deprivation: Previously treated with Lupron. PHYSICAL EXAM: BP 102/68 Pulse 94 Temp 36.2 ?C (97.2 ?F) Resp 18 Wt 104.2 kg (229 lb 11.5 oz) SpO2 97% BMI 38.52 kg/m? KPS: 100 General Appearance: Alert and oriented. No acute distress. Rectal exam is deferred. ASSESSMENT/PLAN: Prostate adenocarcinoma, initial PSA 2.0, biopsy Yulee score 4 + 4 = 8 (grade group 4), clinical stage T2c, N0, M0, stage IIC [T1-T2, N0, M0, PSA <20, GG 4] (AJCC 8th ed.), s/p TRUS Random and MR Targeted biopsy. Prostate cancer (C61), 2019 NCCN Risk Group: High Risk Group 1 prostate cancer. Has had a slight rise in PSA though still very low. Has continued close follow-up with Dr. Lambert. 2. Rectal bleeding, possible late radiation proctitis versus related to known prior bowel related disease. Follow-up with GI as already arranged. Signed by: Jhony Lux [facility]02-18-2025 History of Present illness Narrative* Kerri Shah, [employer]IL[employer]ST[employer]ER[employer]ORDER PROCESSOR - 01/16/2025 2:30 PM EST Images from the original note were not included. Chief Complaint: Gastroenteritis/colitis History of Present Illness Meredith Villatoro is a 64 y.o. male who presents to the office for hospital follow-up. He presented to the hospital on 01/05/2025 for diarrhea and rectal bleeding. CT abdomen and pelvis read as changes of the descending and proximal sigmoid colon worrisome for an ischemia. Stool was positive for Astrovirus. He was discharged home on Augmentin. His diarrhea and pain is much improved. He denies nausea and vomiting. He denies fever and chills. He denies any further rectal bleeding. He has history of sigmoid colectomy. His last colonoscopy was August [address] Chau significant for 2 benign polyps. Biopsies were negative for colitis. He is asking about getting refill on dicyclomine. He has taken this in the past, however, has not seen GI doc in [place] in [facility] to get refills. He has IBS and chronic lower abdominal pain that isrelieved after he has a bowel movement. Review of Systems Constitutional: Negative for fever and unexpected weight change. HENT: Negative for trouble swallowing. Respiratory: Negative for shortness of breath. Cardiovascular: Negative for chest pain. Gastrointestinal: Positive for abdominal pain and diarrhea. Negative for nausea, vomiting, constipation, blood in stool and black tarry stool. Genitourinary: Negative for dysuria and difficulty urinating. Musculoskeletal: Negative for gait problem. Skin: Negative for rash and wound. Neurological: Negative for dizziness, weakness and light-headedness. Hematological: Does not bruise/bleed easily. Psychiatric/Behavioral: Negative for confusion. Past Medical History: Diagnosis Date GERD (gastroesophageal reflux disease) H/O degenerative disc disease Hyperlipidemia Hypertension Prostate cancer ([facility]) Tubular adenoma Vertigo Visual impairment glasses Past Surgical History: Procedure Laterality Date ARTHROSCOPY SHOULDER debridment of type 1 slap lesion , and subacromial decompression Left 05/20/2017 Performed by Jr Zainab Barber DO at [facility] CHOLECYSTECTOMY COLON SURGERY 03/14/2013 Low Anterior Colon Resection- Dr. De Leon & Dr. Chau COLONOSCOPY N/A 08/05/2017 Performed by Edgar De Leon MD at [facility] COLONOSCOPY DIAGNOSTIC / SCREENING N/A 09/11/2024 Performed by Tracy Chau DO at [facility] FOOT SURGERY Left 11/2024 PROSTATE SURGERY hx prostate cancer with radiation ? 2021 Allergies Allergen Reactions Codeine-Guaifenesin Other reaction(s): COUGH / SNEEZING Current Outpatient Medications: atorvastatin (LIPITOR) 20 mg tablet, Take 0.5 tablets (10 mg total) by mouth in the morning., Disp:, Rfl: 0 lisinopriL (PRINIVIL,ZESTRIL) 10 mg tablet, take 1 tablet by mouth every morning, Disp: 90 tablet, Rfl: 2 metoprolol tartrate (LOPRESSOR) 50 mg tablet, Take 1 tablet (50 mg total) by mouth in the morning and 1 tablet (50 mg total) before bedtime., Disp: , Rfl: MYRBETRIQ 50 mg tablet extended release 24 hr, Take 1 tablet (50 mg total) by mouth in the morning., Disp: , Rfl: tamsulosin (FLOMAX) 0.4 mg capsule, Take 1 capsule (0.4 mg total) by mouth in the morning and 1 capsule (0.4 mg total) before bedtime., Disp: , Rfl: Social History Socioeconomic History Marital status: Single Spouse name: Not on file Number of children: Not on file Years of education: Not on file Highest education level: Not on file Occupational History Not on file Tobacco Use Smoking status: Former Current packs/day: 1.50 Average packs/day: 1.5 packs/day for 50.1 years (75.2 ttl pk-yrs) Types: Cigarettes Start date: 1974 Smokeless tobacco: Former Vaping Use Vaping status: Never Used Substance and Sexual Activity Alcohol use: Not Currently Drug use: No Sexual activity: Defer Other Topics Concern Caffeine Use Yes Social History Narrative Not on file Social Drivers of Health Financial Resource Strain: Not on file Food Insecurity: No Food Insecurity (01/16/2025) Hunger Screening Food Insecurity - Worry: Never True Food Insecurity - Inability: Never True Recent Concern: Food Insecurity - Food Insecurity Present (01/02/2025) Hunger Screening Food Insecurity - Worry: Often True Food Insecurity - Inability: Often True Transportation Needs: No Transportation Needs (01/06/2025) PRAPARE - Transportation Lack of Transportation (Medical): No Lack of Transportation (Non-Medical): No Physical Activity: Not on file Stress: Not on file Social Connections: Not on file Interpersonal Safety: Not At Risk (01/06/2025) Humiliation, Afraid, Rape, and Kick questionnaire Fear of Current or Ex-Partner: No Emotionally Abused: No Physically Abused: No Sexually Abused: No Housing Instability: Low Risk (01/06/2025) Housing Instability Housing Instability: No Family History Problem Relation Age of Onset No Known Problems Mother No Known Problems Father Colon cancer Neg Hx Objective Physical Exam Constitutional: General: He is not in acute distress. Appearance: Normal appearance. He is not ill-appearing. HENT: Head: Normocephalic and atraumatic. Mouth/Throat: Mouth: Mucous membranes are moist. Eyes: Pupils: Pupils are equal, round, and reactive to light. Cardiovascular: Rate and Rhythm: Normal rate and regular rhythm. Pulmonary: Effort: Pulmonary effort is normal. No respiratory distress. Abdominal: General: Bowel sounds are normal. There is no distension. Palpations: Abdomen is soft. Tenderness: There is abdominal tenderness. There is no guarding. Comments: Mild tenderness lower medical abdomen Musculoskeletal: General: Normal range of motion. Skin: General: Skin is warm and dry. Neurological: Mental Status: He is alert and oriented to person, place, and time. Mental status is at baseline. Vital Signs: Blood pressure 115/75, pulse 79, height 160 cm (5' 3 ), weight 103 kg (227 lb). Respiratory Source: No data recorded Admission Weight: Weight: 103 kg (227 lb) Labs Lab Results Component Value Date WBC 4.4 01/08/2025 HGB 13.6 01/08/2025 HCT 39.2 01/08/2025 MCV 90 01/08/2025 PLT 176 01/08/2025 Lab Results Component Value Date GLU 118 (H) 01/08/2025 CALCIUM 8.7 01/08/2025 K 3.7 01/08/2025 CO2 22 01/08/2025 CL 107 01/08/2025 BUN 15 01/08/2025 CREATININE 1.08 01/08/2025 No results found for: AMYLASE Lab Results Component Value Date LIPASE 28 01/05/2025 Lab Results Component Value Date ALT 18 01/08/2025 AST 18 01/08/2025 ALKPHOS 44 01/08/2025 Lab Results Component Value Date INR 1.0 02/28/2018 INR 1.0 05/06/2017 PROTIME 11.9 02/28/2018 PROTIME 11.5 05/06/[address] abdomen and pelvis 01/05/2025: FINDINGS: Left basilar pulmonary nodules, largest which measures 1.6 x 1.1 cm. Unremarkable liver, spleen, adrenal glands, pancreas, kidneys. No acute appearing occlusion of the major visceral vasculature. Prostate fiducial markers. Subtotal sigmoidectomy, colorectal anastomosis. Mural indistinctness, hyperemia, featureless architecture, of the descending and proximal sigmoid colon. Normal appendix. No aggressive osseous lesions. Degenerative changes lumbar spine. Diffuse idiopathic skeletal hyperostosis. IMPRESSION: 1. Changes of the descending and proximal sigmoid colon worrisome for an ischemia. No evidence of transmural bowel compromise, at this time. Correlate clinically. 2. Prior subtotal sigmoidectomy, colorectal anastomosis. 3. Left basilar pulmonary nodules, similar to recent prior. Recommend follow-up imaging. Colonoscopy 09/11/2024: Impression: - Two 3 to 5 mm polyps in the sigmoid colon and at the splenic flexure, removed with a cold snare. Resected and retrieved. - Patent end-to-end colo-colonic anastomosis, characterized by edema. Biopsied. - The examination was otherwise normal on direct and retroflexion views. Final Pathologic Diagnosis 1. Sigmoid colon polyp: Hyperplastic polyp. 2. Splenic flexure polyp: Tubular adenoma fragments. 3. Random colon biopsy: Unremarkable colonic mucosa. Negative for microscopic colitis or active colitis. Negative for dysplasia or malignancy. 4. Anastomosis biopsy: Colonic mucosa with mild hyperplasia. Negative for microscopic colitis or active colitis. Negative for dysplasia or malignancy. Assessment Meredith Villatoro is a 64 y.o.male with gastroenteritis/colitis, improved. Plan Dicyclomine contraindicated due to BPH with outlet flow obstruction, recommend IBgard. Colonoscopy up-to-date. Follow up p.r.n.. Evaluation included: Preparing to see the patient (e.g., review of tests) Obtaining and/or reviewing separately obtained history Performing a medically appropriate examination and/or evaluation Counseling and educating the patient/family/caregiver Referring and communicating with other health direct care counselor Gastroenteritis and colitis, viral [A08.4] LEO BERNAL [facility] [place] This note was created with the assistance of a speech recognition program. While intending to generate a timely document that accurately reflects the content of the visit, no guarantee can be provided that every grammatical or spelling mistake has been or will be identified or corrected. Thank you for your understanding. LEO Bernal 01/16/25 1514 documented in this encounterWhite River Junction Va Medical CenterAnalytiCon Discovery [id number] Hospital Discharge instructions Patient Education 01/15/2025 12:24:02 Urinary Incontinence Urinary Incontinence Urinary incontinence refers to a condition in which a person is unable to control where and when topass urine. A person with this condition will urinate involuntarily. This means that the person urinates when he or she does not mean to. What are the causes? This condition may be caused by: Medicines. Infections. Constipation. Overactive bladder muscles. Weak bladder muscles. Weak pelvic floor muscles. These muscles provide support for the bladder, intestine, and, in women,the uterus. Enlarged prostate in men. The prostate is a gland near the bladder. When it gets too big, it can pinch the urethra. With the urethra blocked, the bladder can weaken and lose the ability to empty properly. Surgery. Emotional factors, such as anxiety, stress, or post-traumatic stress disorder (PTSD). Spinal cord injury, nerve injury, or other neurological conditions. Pelvic organ prolapse. This happens in women when organs move out of place and into the vagina. This movement can prevent the bladder and urethra from working properly. What increases the risk? The following factors may make you more likely to develop this condition: Age. The older you are, the higher the risk. Obesity. Being physically inactive. and childbirth. Menopause. Diseases that affect the nerves or spinal cord. Long-term, or chronic, coughing. This can increase pressure on the bladder and pelvic floor muscles. What are the signs or symptoms? Symptoms may vary depending on the type of urinary incontinence you have. They include: A sudden urge to urinate, and passing urine involuntarily before you can get to a bathroom (urge incontinence). Suddenly passing urine when doing activities that force urine to pass, such as coughing, laughing, exercising, or sneezing (stress incontinence). Needing to urinate often but urinating only a small amount, or constantly dribbling urine (overflowincontinence). Urinating because you cannot get to the bathroom in time due to a physical disability, such as arthritis or injury, or due to a communication or thinking problem, such as Alzheimer's disease (functional incontinence). How is this diagnosed? This condition may be diagnosed based on: Your medical history. A physical exam. Tests, such as: ?Urine tests. ?X-rays of your kidney and bladder. ?Ultrasound. ?CT scan. ?Cystoscopy. In this procedure, a health care provider inserts a tube with a light and camera (cystoscope) through the urethra and into the bladder to check for problems. ?Urodynamic testing. These tests assess how well the bladder, urethra, and sphincter can store and release urine. There are different types of urodynamic tests, and they vary depending on what the test is measuring. To help diagnose your condition, your health care provider may recommend that you keep a log of when you urinate and how much you urinate. How is this treated? Treatment for this condition depends on the type of incontinence that you have and its cause. Treatment may include: Lifestyle changes, such as: ?Quitting smoking. ?Maintaining a healthy weight. ?Staying active. Try to get 150 minutes of moderate-intensity exercise every week. Ask your health care provider which activities are safe for you. ?Eating a healthy diet. ?Avoid high-fat foods, like fried foods. ?Avoid refined carbohydrates like white bread and white rice. ?Limit how much alcohol and caffeine you drink. ?Increase your fiber intake. Healthy sources of fiber include beans, whole grains, and fresh fruitsand vegetables. Behavioral changes, such as: ?Pelvic floor muscle exercises. ?Bladder training, such as lengthening the amount of time between bathroom breaks, or using the bathroom at regular intervals. ?Using techniques to suppress bladder urges. This can include distraction techniques or controlled breathing exercises. Medicines, such as: ?Medicines to relax the bladder muscles and prevent bladder spasms. ?Medicines to help slow or prevent the growth of a man's prostate. ?Botox injections. These can help relax the bladder muscles. Treatments, such as: ?Using pulses of electricity to help change bladder reflexes (electrical nerve stimulation). ?For women, using a medical liaison to prevent urine leaks. This is a small, tampon-like, disposabledevice that is inserted into the urethra. ?Injecting collagen or carbon beads (bulking agents) into the urinary sphincter. These can help thicken tissue and close the bladder opening. ?Surgery. Follow these instructions at home: Lifestyle Limit alcohol and caffeine. These can fill your bladder quickly and irritate it. Keep yourself clean to help prevent odors and skin damage. Ask your health care provider about special skin creams and cleansers that can protect the skin from urine. Consider wearing pads or adult diapers. Make sure to change them regularly, and always change them right after experiencing incontinence. General instructions Take qjxm-fdm-vaplldg and prescription medicines only as told by your health care provider. Use the bathroom about every 3 4 hours, even if you do not feel the need to urinate. Try to empty your bladder completely every time. After urinating, wait a minute. Then try to urinate again. Make sure you are in a relaxed position while urinating. If your incontinence is caused by nerve problems, keep a log of the medicines you take and the times you go to the bathroom. Keep all follow-up visits. This is important. Where to find more information National [place] of Diabetes and Digestive and Kidney Diseases: www.niddk.nih.gov [place] [employer]: www.urologyhealth.org Contact a health care provider if: You have pain that gets worse. Your incontinence gets worse. Get help right away if: You have a fever or chills. You are unable to urinate. You have redness in your groin area or down your legs. Summary Urinary incontinence refers to a condition in which a person is unable to control where and when topass urine. This condition may be caused by medicines, infection, weak bladder muscles, weak pelvic floor muscles, enlargement of the prostate (in men), or surgery. Factors such as older age, obesity, and childbirth, menopause, neurological diseases, andchronic coughing may increase your risk for developing this condition. Types of urinary incontinence include urge incontinence, stress incontinence, overflow incontinence, and functional incontinence. This condition is usually treated first with lifestyle and behavioral changes, such as quitting smoking, eating a healthier diet, and doing regular pelvic floor exercises. Other treatment options include medicines, bulking agents, medical devices, electrical nerve stimulation, or surgery. This information is not intended to replace advice given to you by your health care provider. Make sure you discuss any questions you have with your health care provider. Document Revised: 06/20/2021 Document Reviewed: 06/20/2021 [employer] Patient Education 2023 XGIMI. 01/15/2025 12:23:58 Cystoscopy Cystoscopy Cystoscopy is a procedure that is used to help diagnose and sometimes treat conditions that affect the lower urinary tract. The lower urinary tract includes the bladder and the urethra. The urethra is the tube that drains urine from the bladder. Cystoscopy is done using a thin, tube-shaped instrument with a light and camera at the end (cystoscope). The cystoscope may be hard or flexible, depending on the goal of the procedure. The cystoscope is inserted through the urethra, into the bladder. Cystoscopy may be recommended if you have: Urinary tract infections that keep coming back. Blood in the urine (hematuria). An inability to control when you urinate (urinary incontinence) or an overactive bladder. Unusual cells found in a urine sample. A blockage in the urethra, such as a urinary stone. Painful urination. An abnormality in the bladder found during an intravenous pyelogram (IVP) or CT scan. Cystoscopy may also be done to remove a sample of tissue to be examined under a microscope (biopsy). Tell a health care provider about: Any allergies you have. All medicines you are taking, including vitamins, herbs, eye drops, creams, and eiqp-jjq-dffexgf medicines. Any problems you or family members have had with anesthetic medicines. Any blood disorders you have. Any surgeries you have had. Any medical conditions you have. Whether you are or may be . What are the risks? Generally, this is a safe procedure. However, problems may occur, including: Infection. Bleeding. Allergic reactions to medicines. Damage to other structures or organs. What happens before the procedure? Medicines Ask your health care provider about: Changing or stopping your regular medicines. This is especially important if you are taking diabetes medicines or blood thinners. Taking medicines such as aspirin and ibuprofen. These medicines can thin your blood. Do not take these medicines unless your health care provider tells you to take them. Taking kjzr-lmw-hvwepjy medicines, vitamins, herbs, and supplements. Tests You may have an exam or testing, such as: X-rays of the bladder, urethra, or kidneys. CT scan of the abdomen or pelvis. Urine tests to check for signs of infection. General instructions Follow instructions from your health care provider about eating or drinking restrictions. Ask your health care provider what steps will be taken to help prevent infection. These steps may include: ?Washing skin with a germ-killing soap. ?Taking antibiotic medicine. Plan to have a responsible adult take you home from the hospital or clinic. What happens during the procedure? You will be given one or more of the following: ?A medicine to help you relax (sedative). ?A medicine to numb the area (local anesthetic). The area around the opening of your urethra will be cleaned. The cystoscope will be passed through your urethra into your bladder. Germ-free (sterile) fluid will flow through the cystoscope to fill your bladder. The fluid will stretch your bladder so that your health care provider can clearly examine your bladder dodson. Your doctor will look at the urethra and bladder. Your doctor may take a biopsy or remove stones. The cystoscope will be removed, and your bladder will be emptied. The procedure may vary among health care providers and hospitals. What can I expect after the procedure? After the procedure, it is common to have: Some soreness or pain in your abdomen and urethra. Urinary symptoms. These include: ?Mild pain or burning when you urinate. Pain should stop within a few minutes after you urinate. This may last for up to 1 week. ?A small amount of blood in your urine for several days. ?Feeling like you need to urinate but producing only a small amount of urine. Follow these instructions at home: Medicines Take qcjb-zga-ksraxml and prescription medicines only as told by your health care provider. If you were prescribed an antibiotic medicine, take it as told by your health care provider. Do notstop taking the antibiotic even if you start to feel better. General instructions Return to your normal activities as told by your health care provider. Ask your health care provider what activities are safe for you. If you were given a sedative during the procedure, it can affect you for several hours. Do not drive or operate machinery until your health care provider says that it is safe. Watch for any blood in your urine. If the amount of blood in your urine increases, call your healthcare provider. Follow instructions from your health care provider about eating or drinking restrictions. If a tissue sample was removed for testing (biopsy) during your procedure, it is up to you to get your test results. Ask your health care provider, or the department that is doing the test, when yourresults will be ready. Drink enough fluid to keep your urine pale yellow. Keep all follow-up visits. This is important. Contact a health care provider if: You have pain that gets worse or does not get better with medicine, especially pain when you urinate. You have trouble urinating. You have more blood in your urine. Get help right away if: You have blood clots in your urine. You have abdominal pain. You have a fever or chills. You are unable to urinate. Summary Cystoscopy is a procedure that is used to help diagnose and sometimes treat conditions that affect the lower urinary tract. Cystoscopy is done using a thin, tube-shaped instrument with a light and camera at the end. After the procedure, it is common to have some soreness or pain in your abdomen and urethra. Watch for any blood in your urine. If the amount of blood in your urine increases, call your healthcare provider. If you were prescribed an antibiotic medicine, take it as told by your health care provider. Do notstop taking the antibiotic even if you start to feel better. This information is not intended to replace advice given to you by your health care provider. Make sure you discuss any questions you have with your health care provider. Document Revised: 07/29/2022 Document Reviewed: 06/27/2021 [employer] Patient Education 2023 XGIMI. Follow Up Care 10/16/2024 13:01:02 With:PETRA OVIEDO, Leila Simpson, URL Address: [facility] [address] [place] [address]- [phone] When: Unknown [facility] 02-17-2025 NotePatient Education Urology Urinary Incontinence Urinary incontinence refers to a condition in which a person is unable to control where and when topass urine. A person with this condition will urinate involuntarily. This means that the person urinates when he or she does not mean to. What are the causes? This condition may be caused by: ??? Medicines. ??? Infections. ??? Constipation. ??? Overactive bladder muscles. ??? Weak bladder muscles. ??? Weak pelvic floor muscles. These muscles provide support for the bladder, intestine, and, in women, the uterus. ??? Enlarged prostate in men. The prostate is a gland near the bladder. When it gets too big, it can pinch the urethra. With the urethra blocked, the bladder can weaken and lose the ability to empty properly. ??? Surgery. ??? Emotional factors, such as anxiety, stress, or post-traumatic stress disorder (PTSD). ??? Spinal cord injury, nerve injury, or other neurological conditions. ??? Pelvic organ prolapse. This happens in women when organs move out of place and into the vagina.This movement can prevent the bladder and urethra from working properly. What increases the risk? The following factors may make you more likely to develop this condition: ??? Age. The older you are, the higher the risk. ??? Obesity. ??? Being physically inactive. ??? and childbirth. ??? Menopause. ??? Diseases that affect the nerves or spinal cord. ??? Long-term, or chronic, coughing. This can increase pressure on the bladder and pelvic floor muscles. What are the signs or symptoms? Symptoms may vary depending on the type of urinary incontinence you have. They include: ??? A sudden urge to urinate, and passing urine involuntarily before you can get to a bathroom (urge incontinence). ??? Suddenly passing urine when doing activities that force urine to pass, such as coughing, laughing, exercising, or sneezing (stress incontinence). ??? Needing to urinate often but urinating only a small amount, or constantly dribbling urine (overflow incontinence). ??? Urinating because you cannot get to the bathroom in time due to a physical disability, such as arthritis or injury, or due to a communication or thinking problem, such as Alzheimer's disease (functional incontinence). How is this diagnosed? This condition may be diagnosed based on: ??? Your medical history. ??? A physical exam. ??? Tests, such as: ? Urine tests. ? X-rays of your kidney and bladder. ? Ultrasound. ? CT scan. ? Cystoscopy. In this procedure, a health care provider inserts a tube with a light and camera (cystoscope) through the urethra and into the bladder to check for problems. ? Urodynamic testing. These tests assess how well the bladder, urethra, and sphincter can store andrelease urine. There are different types of urodynamic tests, and they vary depending on what the test is measuring. To help diagnose your condition, your health care provider may recommend that you keep a log of when you urinate and how much you urinate. How is this treated? Treatment for this condition depends on the type of incontinence that you have and its cause. Treatment may include: ??? Lifestyle changes, such as: ? Quitting smoking. ? Maintaining a healthy weight. ? Staying active. Try to get 150 minutes of moderate-intensity exercise every week. Ask your healthcare provider which activities are safe for you. ? Eating a healthy diet. ? Avoid high-fat foods, like fried foods. ? Avoid refined carbohydrates like white bread and white rice. ? Limit how much alcohol and caffeine you drink. ? Increase your fiber intake. Healthy sources of fiber include beans, whole grains, and fresh fruits and vegetables. ??? Behavioral changes, such as: ? Pelvic floor muscle exercises. ? Bladder training, such as lengthening the amount of time between bathroom breaks, or using the bathroom at regular intervals. ? Using techniques to suppress bladder urges. This can include distraction techniques or controlledbreathing exercises. ??? Medicines, such as: ? Medicines to relax the bladder muscles and prevent bladder spasms. ? Medicines to help slow or prevent the growth of a man's prostate. ? Botox injections. These can help relax the bladder muscles. ??? Treatments, such as: ? Using pulses of electricity to help change bladder reflexes (electrical nerve stimulation). ? For women, using a medical liaison to prevent urine leaks. This is a small, tampon-like, disposable device that is inserted into the urethra. ? Injecting collagen or carbon beads (bulking agents) into the urinary sphincter. These can help thicken tissue and close the bladder opening. ? Surgery. Follow these instructions at home: Lifestyle ??? Limit alcohol and caffeine. These can fill your bladder quickly and irritate it. ??? Keep yourself clean to help prevent odors and skin damage. Ask your health care provider (more content not included)...[facility] 10-16-2024 Hospital Discharge instructions Patient Education 10/16/2024 [...] such as a bone scan, CT scan, PETscan, or MRI. Stages of prostate cancer The [...] under a microscope. This is called the Yulee score and the total score can range from 6 10, indicating how likely it is that the cancer will spread (metastasize) to other parts of the body. The higher the score, the greater thelikelihood that the cancer will spread. Yulee 6 or lower: This indicates that the cancer cells look similar to normal prostate cells (well differentiated). Judd 7: This indicates that the cancer cells look somewhat similar to normal prostate cells (moderately differentiated). Yulee 8, 9, or 10: This indicates that [...] you need help quitting, ask your health careprovider. Eat a healthy diet. To do this: [...] a support group mayhelp you learn to manage the stress of having cancer. General instructions Take lbcz-gyb-vwiqrzw and prescription medicines only as told by your health care provider. If you have to go to the hospital, notify your cancer specialist (oncologist). Keep all follow-up visits. This is important. Where to find more information [place] [employer] Society: www.cancer.org [place] Society of Clinical Oncology: www.cancer.net National Cancer [place]: www.cancer.gov Contact a health care provider if: [...] a support group mayhelp you learn to manage the stress of having cancer. This information is not intended to replace advice given to you by your health care provider. Make sure you discuss any questions you have with your health care provider. Document Revised: 02/11/2022 Document Reviewed: 02/11/2022 [employer] Patient Education 2023 XGIMI. Follow Up Care 03/17/2024 12:32:12 With:PETRA OVIEDO, Leila Simpson, URL Address: [facility] [address] [place] [address]- [phone] When: Unknown Comments:3 mos w/ PSA and [place] [facility] [place] 11-18-2024 NotePatient Education Oncology Prostate Cancer The prostate is [...] such as a bone scan, CT scan, PETscan, or MRI. Stages of prostate cancer The stages of prostate cancer are as follows: ??? Stage 1 (I). At this stage, the cancer is found in the prostate only. The cancer is not visibleon imaging tests, and it is usually found [...] body. The higher the score, the greater thelikelihood that the cancer will spread. ??? Judd 6 or lower: This indicates that the cancer cells look similar to normal prostate cells (well differentiated). ??? Yulee 7: This indicates that the cancer cells [...] needles, seeds, wires, o (more content not included)...[facility]11-12-2024 History of Present illness Narrative* Melo Reilly, BENITO - 10/10/2024 9:00 AM EST Images from the original note were not included. Subjective Patient ID: Merdeith Villatoro is a 64 y.o. male who [...] not helpful. He then presented to Dr. Velazquez a 2nd opinion who discussed rigid bracing. Patient currently has an [employer] brace that he has been using for [...] subcortical bone marrow edema of lateral talar domesecondary to full-thickness cartilage defects. 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 For these reasonsI do not think he is an excellent ankle fusion candidate. I think that he may be best served with ankle replacement given his failure of arthroscopy and bracing. At this point I recommend 2nd opinionwith Dr. Dietz to discuss ankle replacement. Referral made and I personally reached out to as well who has graciously agreed to [...] understanding. Melo Reilly DPM documented in this encounterCitizens Memorial [id number] History of Present illness Narrative* Kerri Benitez DPM - 09/26/2024 3:15 PM EDT Images from the original note were not included. Subjective Patient ID: Meredith Villatoro is a 64 y.o. male who presents for FUV/check brace (Meredith Villatoro is a 64 y.o. male who presents for FUV Left ankle pain and AFO check. Patient relates when he reachesto remove the brace, his ankle feels like pins and needles. Patient has intermittent stabbing pain at nighttime in the right ankle. ). HPI Established patient returns for follow up of left ankle pain. He states he received his rigid AFO brace 2-3 weeks ago. He has been wearing it from the time he gets up in the morning until the time hegoes to sleep. He has noticed that his pain is present less often, but the severity of the pain, when present, is unchanged. While he does note improvement with the more rigid bracing, he still feelsthe left chronic ankle pain is inhibiting his quality of life as well as his activities of daily living. HX: poor historian. L ankle painful x 3-4 years. He has tried multiple conservative therapies - oral steroid taper, ASO ankle brace, supportive shoes, 2 steroid injections in the L ankle joint and anankle scope by a different honing machine set up operator tool to remove some of the excess bone [...] or locking. There is no crepitus. There ismild pain with sub max passive ROM. There is soft end feel. STJ ROM is normal and pain free. MUSCLE STRENGTH: Dorsiflexion, plantarflexion, inversion, eversion are 5/5 b/l. PAIN: There is pain with palpation along the anterior aspect of the left ankle joint and along the medial and lateral gutters. Most severe pain is anterior medial and anterior central ankle. There istenderness overlying the osseous prominence at the dorsal [...] subcortical bone marrow edema of lateral talar domesecondary to full-thickness cartilage defects. No ankle joint [...] understanding. Kerri Benitez DPM documented in this encounterCitizens Memorial [id number] Miscellaneous Notes* Telephone Encounter - Carlota Jason CMA - 09/15/2024 1:48 PM EDT ----- Message from Dr. Tracy Chau, sent at 09/15/2024 7:21 AM EDT ----- Please call pt. And let him know that polyps are benign and that colon biopsies were negative for colitis.He need surveillance colon scope in 5 years unless problems. Thanks, Dr. Martinez * Telephone Encounter - Carlota Jason CMA - 09/15/2024 1:48 PM EDT Spoke with patient regarding pathology results. Patient verbally understood with no further questions. Recall to be put in chart. [facility] Tele[facility] encounter Note* Telephone Encounter - Carlota Jason CMA - 09/15/2024 1:48 PM EDT ----- Message from Dr. Tracy Chau DO sent at 09/15/2024 7:21 AM EDT ----- Please call pt. And let him know that polyps are benign and that colon biopsies were negative for colitis.He need surveillance colon scope in 5 years unless problems. ThanksDr. Martinez [facility] Telephone encounter Note* Telephone Encounter - Carlota Jason CMA - 09/15/2024 1:48 PM EDT Spoke with patient regarding pathology results. Patient verbally understood with no further questions. Recall to be put in chart. [employer]10-08-2024 Miscellaneous Notes* Perioperative Nursing Note - Odalys Taylor RN - 09/05/2024 2:50 PM EDT Preoperative Education Checklist- General Surgery date: 09/11/24 Surgery time: 1130 Arrival time: 929 1. Bring a photo ID and your insurance card with you the day of surgery. You will check in at the main lobby of the [facility]- registration desk is straight ahead as soon as you walk in. Tell them you are here for surgery. 2. If you have a Living Will/Durable Power of [employer] that is not on [...] after you have bathed. 5. NO nail japanese/acrylic on at least one finger. If you are having a hand, wrist or foot surgery then all nail japanese and artificial/acrylic nails must be removed from [...] least 8 hours and marijuana for 24 hoursprior to arrival for your surgery. 16. If [...] please call the Preadmission Testing office at [phone], Mon.-Fri. 7 a.m.-3 p.m. Leave a voicemail [...] days prior to procedure documented [facility] Nurse Note* Perioperative Nursing Note - Odalys Taylor RN - 09/05/2024 2:50 PM EDT Preoperative Education Checklist- General Surgery date: 09/11/24 Surgery time: 1130 Arrival time: 929 1. Bring a photo ID and your insurance card with you the day of surgery. You will check in at the main lobby of the [facility]- registration desk is straight ahead as soon as you walk in. Tell them you are here for surgery. 2. If you have a Living Will/Durable Power of Manager [employer] that is not on [...] after you have bathed. 5. NO nail japanese/acrylic on at least one finger. If you are having a hand, wrist or foot surgery then all nail japanese and artificial/acrylic nails must be removed from [...] least 8 hours and marijuana for 24 hoursprior to arrival for your surgery. 16. If [...] please call the Preadmission Testing office at [phone], Mon.-Fri. 7 a.m.-3 p.m. Leave a voicemail [...] Stop taking 0 days prior to procedure [facility] Telephone encounter Note* Telephone Encounter - Cindy Maxwell - 08/24/2024 1:45 PM EDT We had to fax over office notes to Jeni, but they do need a wet signature before we send again. I will set on your desk. [facility] [id number] Miscellaneous Notes* Telephone Encounter - Cindy Maxwell - 08/24/2024 1:45 PM EDT We had to fax over office notes to Jeni, but they do need a wet signature before we send again. I will set on your desk. documented in this encounterCitizens Memorial [id number] History of Present illness Narrative* Kerri Shah APRN-ORDER PROCESSOR - 08/23/2024 11:30 AM EDT Images from the original note were not included. Chief Complaint: Colonoscopy History of Present Illness Meredith Villatoro is a 64 y.o. male who presents to the office today accompanied by his sister. Hereports diarrhea and bowel urgency in that everything he eats goes right through him. He has 3 bowel movements daily. Associated symptoms include abdominal pain that resolves after he has a bowel movement. He also has dicyclomine at home that helps relieve his pain. He denies any rectal bleeding. He denies constipation. He admits to drinking no water daily. Drinks Pepsi. He also eats an increasedamount of fast food. His last colonoscopy was in [address] De Leon and was normal. It was recommended he follow-up in5 years. He is status post low anterior colon resection by Dr. De Leon and Dr. Chau in 2012 though he does not recall what for. Review of Systems Constitutional: Negative for fever and unexpected weight change. HENT: Negative for trouble swallowing. Respiratory: Negative for shortness of breath. Cardiovascular: Negative for chest pain. Gastrointestinal: Positive for abdominal pain and diarrhea. Negative for nausea, vomiting, constipation, blood in stool and black tarry stool. Genitourinary: Negative for dysuria and difficulty urinating. Musculoskeletal: Negative for gait problem. Skin: Negative for rash and wound. Neurological: Negative for dizziness, weakness and light-headedness. Hematological: Does not bruise/bleed easily. Psychiatric/Behavioral: Negative for confusion. Past Medical History: Diagnosis Date GERD (gastroesophageal reflux disease) H/O degenerative disc disease Hyperlipidemia Hypertension Prostate cancer (CMS-HCC) Tubular adenoma Vertigo Visual impairment glasses Past Surgical History: Procedure Laterality Date ARTHROSCOPY SHOULDER debridment of type 1 slap lesion , and subacromial decompression Left 05/20/2017 Performed by Jr Zainab Barber DO at [facility] CHOLECYSTECTOMY COLON SURGERY 03/14/2013 Low Anterior Colon Resection- Dr. De Leon & Dr. Chau COLONOSCOPY N/A 08/05/2017 Performed by Edgar De Leon MD at [facility] PROSTATE SURGERY hx prostate cancer with radiation ? 2021 Allergies Allergen Reactions Codeine-Guaifenesin Other reaction(s): COUGH / SNEEZING Current Outpatient Medications: atorvastatin (LIPITOR) 20 mg tablet, Take 0.5 tablets (10 mg total) by mouth in the morning., Disp:, Rfl: 0 dicyclomine (BENTYL) 20 mg tablet, Take 1 tablet (20 mg total) by mouth as needed., Disp: , Rfl: indomethacin (INDOCIN) 50 mg capsule, Take 1 capsule (50 mg total) by mouth in the morning and 1 capsule (50 mg total) in the evening. Take with meals., Disp: , Rfl: lisinopriL (PRINIVIL,ZESTRIL) 10 mg tablet, take 1 tablet by mouth every morning, Disp: 90 tablet, Rfl: 2 metoprolol tartrate (LOPRESSOR) 50 mg tablet, Take 1 tablet (50 mg total) by mouth in the morning and 1 tablet (50 mg total) before bedtime., Disp: , Rfl: MYRBETRIQ 50 mg tablet extended release 24 hr, Take 1 tablet (50 mg total) by mouth in the morning., Disp: , Rfl: tamsulosin (FLOMAX) 0.4 mg capsule, Take 1 capsule (0.4 mg total) by mouth in the morning and 1 capsule (0.4 mg total) before bedtime., Disp: , Rfl: sod sulf-pot chloride-mag sulf 1.479-0.188- 0.225 gram tablet, Please see instructional sheet givenby physicians office., Disp: 24 tablet, Rfl: 0 Social History Socioeconomic History Marital status: Single Spouse name: Not on file Number of children: Not on file Years of education: Not on file Highest education level: Not on file Occupational History Not on file Tobacco Use Smoking status: Former Current packs/day: 0.50 Average packs/day: 0.5 packs/day for 40.0 years (20.0 ttl pk-yrs) Types: Cigarettes Smokeless tobacco: Former Vaping Use Vaping status: Never Used Substance and Sexual Activity Alcohol use: Not Currently Drug use: No Sexual activity: Defer Other Topics Concern Caffeine Use Yes Social History Narrative Not on file Social Determinants of Health Financial Resource Strain: Not on file Food Insecurity: No Food Insecurity (02/20/2023) Hunger Screening Food Insecurity - Worry: Never True Food Insecurity - Inability: Never True Transportation Needs: Not on file Physical Activity: Not on file Stress: Not on file Social Connections: Not on file Interpersonal Safety: Not on file Housing Instability: Not on file Family History Problem Relation Age of Onset No Known Problems Mother No Known Problems Father Colon cancer Neg Hx Objective Physical Exam Constitutional: General: He is not in acute distress. Appearance: Normal appearance. He is not ill-appearing. HENT: Head: Normocephalic and atraumatic. Mouth/Throat: Mouth: Mucous membranes are moist. Eyes: Pupils: Pupils are equal, round, and reactive to light. Cardiovascular: Rate and Rhythm: Normal rate. Pulmonary: Effort: Pulmonary effort is normal. No respiratory distress. Abdominal: General: There is no distension. Palpations: Abdomen is soft. Tenderness: There is no abdominal tenderness. There is no guarding. Comments: Midline abdominal scar Musculoskeletal: General: Normal range of motion. Skin: General: Skin is warm and dry. Neurological: Mental Status: He is alert and oriented to person, place, and time. Mental status is at baseline. Vital Signs: Blood pressure 150/89, weight 108.8 kg (239 lb 12.8 oz). Respiratory Source: No data recorded Admission Weight: Weight: 108.8 kg (239 lb 12.8 oz) Labs Lab Results Component Value Date WBC 5.0 06/22/2022 HGB 13.7 06/22/2022 HCT 39.3 06/22/2022 MCV 92 06/22/2022 PLT 154 06/22/2022 Lab Results Component Value Date GLU 120 (H) 06/23/2022 CALCIUM 9.3 06/23/2022 K 4.0 06/23/2022 CO2 26 06/23/2022 CL 105 06/23/2022 BUN 24 06/23/2022 CREATININE 0.88 06/23/2022 No results found for: AMYLASE Lab Results Component Value Date LIPASE 30 06/21/2022 Lab Results Component Value Date ALT 18 06/21/2022 AST 15 06/21/2022 ALKPHOS 57 06/21/2022 Lab Results Component Value Date INR 1.0 02/28/2018 INR 1.0 05/06/2017 PROTIME 11.9 02/28/2018 PROTIME 11.5 05/06/2017 Imaging Colonoscopy 08/05/2017: Findings: The perianal and digital rectal examinations were normal. No additional abnormalities were found on retroflexion. Multiple small-mouthed diverticula were found in the sigmoid colon. Impression: - No specimens collected. Assessment Diarrhea and bowel urgency Status post low anterior colon resection 2012 Personal history of prostate cancer 2021 Plan Encouraged 64 oz of water daily and high-fiber diet. Cut back on pop and fast food intake. Schedule colonoscopy. Evaluation included: Preparing to see the patient (e.g., review of tests) Obtaining and/or reviewing separately obtained history Performing a medically appropriate examination and/or evaluation Counseling and educating the patient/family/caregiver Referring and communicating with other health direct care counselor Diarrhea, unspecified type [R19.7] KERRI SHAH, BOILER INSTALLER-ORDER PROCESSOR [facility] General Surgery [place] This note was created with the assistance of a speech recognition program. While intending to generate a timely document that accurately reflects the content of the visit, no guarantee can be provided that every grammatical or spelling mistake has been or will be identified or corrected. Thank you for your understanding. LEO Bernal 08/23/24 1242 documented in this encounterEast [facility] History of Present illness Narrative* Kerri Benitez, BENITO - 07/18/2024 1:15 PM EDT Images from the original note were not included. Subjective Patient ID: Meredith Villatoro is a 64 y.o. male who presents for MRI results. HPI Patient presents for MRI results. Pt has chronic left ankle pain that is present daily making it difficult to walk. Patient is a poor historian but thinks the ankle has been painful for 3-4 years. Hehas tried multiple conservative therapies - oral steroid taper, ASO ankle brace, supportive shoes, 2 steroid injections in the L ankle joint and an ankle scope by a different honing machine set up operator tool to remove some of the excess bone [...] or locking. There is no crepitus. There ismild pain with sub max passive ROM. There [...] or peroneal tendons. No pain at dorsal TNjoint Skin: General: Skin is warm and dry. [...] subcortical bone marrow edema of lateral talar domesecondary to full-thickness cartilage defects. No ankle joint [...] symptoms and therefore a custom, rigid AFO ([place] brace or [place]) brace is recommended. RX for Traffic Assistant and [place] given to the pt, as he relies on his friend for rides and doesn't know which city would be easier to get to. RTO 4-5 weeks for recheck with AFO brace This note was created with the assistance of a speech recognition program. While intending to generate a timely document that accurately reflects the content of the visit, no guarantee can be provided that every grammatical or spelling mistake has been or will be identified or corrected. Thank you for your understanding. Kerri Benitez DPM documented in this encounterCitizens Memorial [id number] Hospital Discharge instructions Patient Education 03/17/2024 12:20:18 [...] such as a bone scan, CT scan, PETscan, or MRI. Stages of prostate cancer The [...] under a microscope. This is called the Yulee score and the total score can range from 6 10, indicating how likely it is that the cancer will spread (metastasize) to other parts of the body. The higher the score, the greater thelikelihood that the cancer will spread. Yulee 6 or lower: This indicates that the cancer cells look similar to normal prostate cells (well differentiated). Judd 7: This indicates that the cancer cells look somewhat similar to normal prostate cells (moderately differentiated). Yulee 8, 9, or 10: This indicates that [...] you need help quitting, ask your health careprovider. Eat a healthy diet. To do this: [...] a support group mayhelp you learn to manage the stress of having cancer. General instructions Take dyco-yeb-epfccko and prescription medicines only as told by your health care provider. If you have to go to the hospital, notify your cancer specialist (oncologist). Keep all follow-up visits. This is important. Where to find more information [place] Cancer Society: www.cancer.org [place] Society of Clinical Oncology: www.cancer.net National Cancer [place]: www.cancer.gov Contact a health care provider if: [...] a support group mayhelp you learn to manage the stress of having cancer. This information is not intended to replace advice given to you by your health care provider. Make sure you discuss any questions you have with your health care provider. Document Revised: 02/11/2022 Document Reviewed: 02/11/2022 [employer] Patient Education 2022 XGIMI. Follow Up Care 09/13/2023 15:56:01 With:PETRA OVIEDO, Leila Simpson, URL Address: [address] [place], [place] [id number]- When: Unknown [facility] 02-06-2024 History of Present illness Narrative* Jhony Lux MD - 01/04/2024 2:30 PM EST Radiation Oncology - Follow Up Note PATIENT [...] ASSESSMENT/PLAN: Prostate adenocarcinoma, initial PSA 2.0, biopsy Yulee score 4 + 4 = 8 (grade [...] with GI. Signed by: Jhony Lux MD * Jhony Lux MD - 01/04/2024 2:25 PM EST Radiation Oncology - Follow Up Note PATIENT NAME: Meredith Villatoro PATIENT DIAGNOSIS: Prostate adenocarcinoma, initial PSA 2.0, biopsy Yulee score 4 + 4 = 8 (grade [...] ASSESSMENT/PLAN: Prostate adenocarcinoma, initial PSA 2.0, biopsy Yulee score 4 + 4 = 8 (grade [...] by: Jhony Lux MD documented in this encounterSt. Mary'[facility]02-06-[facility] Nurse Note* Sharon Ocampo LPN - 01/04/2024 2:15 PM EST AUA= 13 Clinical questionnaires incomplete due to Patient declined to complete or answer questions with nurse documented in this encounterSt. Mary'S Medical Center10-16-2023 Hospital Discharge instructions Patient Education 09/13/2023 15:45:43 Benign Prostatic Hyperplasia Benign Prostatic Hyperplasia Benign prostatic hyperplasia (BPH) is an enlarged prostate gland that is caused by the normal agingprocess. The prostate may get bigger as a man gets older. The condition is not caused by cancer. The prostate is a walnut-sized gland that is involved in the production of semen. It is located in front of the rectum and below the bladder. The bladder stores urine. The urethra carries stored urine ou t of the body. An enlarged prostate can press on the urethra. This can make it harder to pass urine. The buildup of urine in the bladder can cause infection. Back pressure and infection may progress to bladder damage and kidney (renal) failure. What are the causes? This condition is part of the normal aging process. However, not all men develop problems from thiscondition. If the prostate enlarges away from the [...] urethra. Follow these instructions at home: Take fvxe-qtu-yqohggv and prescription medicines only as told by [...] provider. Document Revised: 06/03/2022 Document Reviewed: 06/03/2022 [employer] Patient Education 2022 XGIMI. 05/17/2023 08:39:24 Prostate Cancer Prostate Cancer The [...] such as a bone scan, CT scan, PETscan, or MRI. Stages of prostate cancer The [...] under a microscope. This is called the Yulee score and the total score can range from 6 10, indicating how likely it is that the cancer will spread (metastasize) to other parts of the body. The higher the score, the greater thelikelihood that the cancer will spread. Judd 6 [...] you need help quitting, ask your health careprovider. Eat a healthy diet. To do this: [...] a support group mayhelp you learn to manage the stress of having cancer. General instructions Take dpnh-ykx-zmbdoqa and prescription medicines only as told by your health care provider. If you have to go to the hospital, notify your cancer specialist (oncologist). Keep all follow-up visits. This is important. Where to find more information [place] Cancer Society: www.cancer.org [place] Society of Clinical Oncology: www.cancer.net National Cancer [place]: www.cancer.gov Contact a health care provider if: [...] a support group mayhelp you learn to manage the stress of having cancer. This information is not intended to replace advice given to you by your health care provider. Make sure you discuss any questions you have with your health care provider. Document Revised: 02/11/2022 Document Reviewed: 02/11/2022 [employer] Patient Education 2022 XGIMI. Follow Up Care 05/12/2023 15:19:24 With:PETRA OVIEDO, Leila Simpson, URL Address: [facility] [address] , [place] [address]- When:Within 6 Month(s) Comments:w/PSA [facility] 08-14-2023 Hospital Discharge instructions Patient Education 07/12/2023 12:05:41 [...] such as a bone scan, CT scan, PETscan, or MRI. Stages of prostate cancer The [...] body. The higher the score, the greater thelikelihood that the cancer will spread. Yulee 6 or lower: This indicates that the cancer cells look similar to normal prostate cells (well differentiated). Yulee 7: This indicates that the cancer cells look somewhat similar to normal prostate cells (moderately differentiated). Yulee 8, 9, or 10: This indicates that [...] you need help quitting, ask your health careprovider. Eat a healthy diet. To do this: [...] a support group mayhelp you learn to manage the stress of having cancer. General instructions Take ooib-gtm-prvxxlh and prescription medicines only as told by your health care provider. If you have to go to the hospital, notify your cancer specialist (oncologist). Keep all follow-up visits. This is important. Where to find more information [place] Cancer Society: www.cancer.org [place] Society of Clinical Oncology: www.cancer.net National Cancer [place]: www.cancer.gov Contact a health care provider if: [...] a support group mayhelp you learn to manage the stress of having cancer. This information is not intended to replace advice given to you by your health care provider. Make sure you discuss any questions you have with your health care provider. Document Revised: 02/11/2022 Document Reviewed: 02/11/2022 [employer] Patient Education 2022 XGIMI. Follow Up Care 05/17/2023 12:57:55 With:PETRA OVEIDO, Leila Simpson, URL Address: [facility] [address] [place] [phone] When: Unknown Comments:f/u scheduled 09/13/23 with PSA [facility] [place] 08-08-2023 Nurse Note* Michelle Dalal RN - 07/06/2023 1:52 PM EDT AUA 18 Michelle Dalal RN documented in this encounterSt. Mary'S [facility] Center08-08-2023 History of Present illness Narrative* Jhony Lux MD - 07/06/2023 1:45 PM EDT Radiation Oncology - Follow Up Note PATIENT NAME: Meredith Villatoro PATIENT DIAGNOSIS: Prostate adenocarcinoma, initial PSA 2.0, biopsy Yulee score 4 + 4 = 8 (grade [...] Gynecomastia likely related to ADT. Signed by: hJony Lux MD documented in this encounterSt. Mary'S Medical Center06-07-2023 Evaluation note* Encounter Date Diagnosis Assessment Notes Treatment Notes Treatment Clinical Notes Apr, Chronic diarrhea (ICD-10 - K52.9) [employer] Other 04-10-2023 Hospital Discharge instructions Patient Education [...] who: Are older than age 65. Are -[place]. Are obese. Have a family history of [...] cells. Follow these instructions at home: Take ljqo-mry-qxlobjr and prescription medicines only as told by [...] 11/15/2006 Document Revised: 10/28/2018 Document Reviewed: 07/26/2017 [employer] Patient Education 2020 XGIMI. Follow Up Care 03/08/2023 10:43:59 With:PETRA OVIEDO, Leila Simpson, URL Address: [facility] [address] , [place] [address]- When: Unknown [facility] 02-23-2023 History of Present illness Narrative* Albina Russell, RD - 01/21/2023 8:39 AM EST Oncology [...] intake is as follows: B- cookies L- [place] [employer] Sub D- usually similar to lunch [...] Change: Gain of 5.8kg x 6 months [place] Body Weight: 60.9kg Estimated kilocalorie needs: 1522 kilocalories determined by 25 kcal/kg Estimated protein needs: 61-73 grams determined by 1.0-1.2 g/kg [place] weight Estimated fluid needs: ~1500 milliliters based [...] Russell MS, RDN, LD documented in this encounterSt. Mary'S [facility] Center10-07-2022 Hospital Discharge instructions Patient Education 09/04/2022 12:16:55 [...] urethra. Follow these instructions at home: Take jyxy-urr-wampdnt and prescription medicines only as told by [...] 11/15/2006 Document Revised: 10/10/2019 Document Reviewed: 12/20/2017 [employer] Patient Education 2020 XGIMI. Follow Up Care 02/27/2022 12:25:22 With:PETRA OVIEDO, Leila Simpson, URL Address: [address] [place] [address]- When: Unknown [facility] 08-09-2022 Nurse Note* Michelle Dalal RN - 07/07/2022 2:34 PM EDT AUA 18. Pt does not have med list. Michelle Dalal RN documented in this encounterSt. Mary'S Medical Center08-09-2022 History of Present illness Narrative* Jhony Lux [...] ASSESSMENT/PLAN: Prostate adenocarcinoma, initial PSA 2.0, biopsy Yulee score 4 + 4 = 8 (grade [...] by: Jhony Lux MD documented in this encounterSt. Mary'S Medical Center07-21-2022 History of Present illness Narrative* Jhony Lux MD - 06/18/2022 8:30 AM EDT Radiation Oncology - Follow Up Note PATIENT NAME: Meredith Villatoro PATIENT DIAGNOSIS: Prostate adenocarcinoma, initial PSA 2.0, biopsy Yulee score 4 + 4 = 8 (grade [...] by: Jhony Lux MD documented in [place] encounterAlexis [place]ille [address]-21-2022 Nurse Note* Sharon Ocampo LPN - 06/18/2022 8:30 AM EDT AUA= 13 documented in this encounterSt. Mary'S Medical Center07-21-2022 History of Present illness Narrative* Jhony Lux MD - 06/18/2022 12:00 AM EDT Patient: Meredith Villatoro Date:06/18/2022 [facility] Department of Radiation Oncology [facility] RADIATION ONCOLOGY POST SEED IMPLANT SIMULATION NOTE [...] will commence following simulation. documented in this encounterSt. Mary'S Medical Center07-11-2022 History of Present illness Narrative* Jhony Lux MD - 06/08/2022 9:00 AM EDT Radiation Oncology - Follow Up Note PATIENT NAME: Meredith Villatoro PATIENT DIAGNOSIS: Prostate adenocarcinoma, initial PSA 2.0, biopsy Yulee score 4 + 4 = 8 (grade [...] ASSESSMENT/PLAN: Prostate adenocarcinoma, initial PSA 2.0, biopsy Yulee score 4 + 4 = 8 (grade [...] well. Signed by: Jhony Lux MD cc: Elif Eyad [address] [place] [address] * Albina Byrne RN - 06/04/2022 1:40 PM EDT AUA=21 Albina Byrne RN documented in this encounterSt. Mary'S Medical Center06-27-2022 History of Present illness Narrative* Jhony Lux MD - 05/25/2022 2:34 PM EDT Date: 05/21/22 Facility: [facility] Procedure: prostate transperineal brachytherapy implant Sources: [id number] [...] activity seen, results documented. Michelle Lux MD [facility] documented in this encounterSt. Mary'S Medical Center06-14-2022 History of Present illness Narrative* Jhony Lux MD - 05/12/2022 12:00 AM EDT MEREDITH VILLATORO [id number] 05/12/2022 [facility] Department of Radiation Oncology [facility] RADIATION ONCOLOGY BRACHYTHERAPY TREATMENT PLANNING NOTE For [...] M.D. / 24:21 PM documented in this encounterSt. Mary'S Medical Center06-07-2022 History of Present illness Narrative* Jhony Lux [...] collected. Jhony Lux MD documented in this encounterSt. Mary'S Medical Center06-07-2022 History of Present illness Narrative* Jhony Lux MD - 05/05/2022 12:00 AM EDT MEREDITH VILLATORO [id number] 05/05/2022 [facility] Department of Radiation Oncology [facility] RADIATION ONCOLOGY SIMULATION NOTE DATE OF SIMULATION: 05/05/2022 MACHINE: [employer] Focus 500 Diagnosis: 185 (Prostate Gland) AREA:Prostate PATIENT POSITION: Supine CONTRAST: None PROTOCOL: None CONCURRENT THERAPY: None FIXATION DEVICE: UTS Stabilization device by Moxie Jean. PROCEDURE: Patient was simulated in exaggerated dorsal lithotomy position. Serial images of the prostate were acquired using TRUS and reconstructed in 3D space. These images were imported into [employer] Prostate planning system where a plan was generated. ASSESSMENT/PLAN: Patient tolerated simulation procedure well. Electronically Signed Johan Lux M.D. / 21:50 PM documented in this encounterSt. Mary'S Medical Center05-27-2022 History of Present illness Narrative* Jhony Lux MD - 04/24/2022 12:00 AM EDT [facility] Radiation Oncology Department RADIATION ONCOLOGY - COMPLETION NOTE PATIENT: CELSO VILLATORO: 1960 DATES OF TREATMENT: 03/23/22 - 04/24/22 DIAGNOSIS: Prostate adenocarcinoma, initial PSA 2.0, biopsy Yulee score 4 + 4 = 8 (grade [...] 05/21/22. Staff Physician Johan Lux M.D. / AVELINA :54 PM Electronically Signed cc: [facility] Petra Castano, [facility] documented in this encounterSt. Mary'S Medical Center05-23-2022 History of Present illness Narrative* Jhony Lux MD - 04/20/2022 1:34 PM EDT Radiation Oncology - On Treatment Review (OTR) Note PATIENT NAME: Meredith Villatoro PATIENT DIAGNOSIS: Prostate adenocarcinoma, initial PSA 2.0, biopsy Yulee score 4 + 4 = 8 (grade [...] planned. Jhony Lux MD documented in this encounterSt. Mary'S Medical Center05-16-2022 History of Present illness Narrative* Yevgeniy Son MD - 04/13/2022 11:27 PM EDT Radiation Oncology - On Treatment Review (OTR) Note PATIENT NAME: Meredith Villatoro PATIENT DIAGNOSIS: Prostate adenocarcinoma, initial PSA 2.0, biopsy Yulee score 4 + 4 = 8 (grade [...] planned. Yevgeniy Son MD documented in this encounterSt. Mary'S Medical Center05-16-2022 Miscellaneous Notes* Telephone Encounter - Michelle Dalal [...] fluids. Michelle Dalal RN documented in this encounterSt. Mary'S Medical Center05-09-2022 History of Present illness Narrative* Jhony Lux MD - 04/06/2022 1:38 PM EDT [...] planned. Jhony Lux MD documented in this encounterSt. Mary'S Medical [facility] History of Present illness Narrative* Jhony Lux [...] planned. Jhony Lux MD documented in this encounterSt. [facility] Nurse Note* Sharon Ocampo LPN - 04/02/2022 1:52 PM EDT Meredith Villatoro presents in office today for: Lab Draw only . Ordering Provider: Johan Lux M.D. Test (s) ordered: CBC Method for obtaining blood: Phlebotomy was performed, accessing left antecubital vein. Needle removed intact. Dressing secured. Patient denies discomfort, dizziness, light-headedness or weakness and left the department without assist. Sharon Ocampo LPN documented in this encounterSt. Mary'[facility]05-03-2022 History of Present illness Narrative* Jhony Lux [...] planned. Jhony Lux MD documented in this encounterSt. Mary'S [facility]04-25-2022 History of Present illness Narrative* Jhony Lux [...] planned. Jhony Lux MD documented in this encounterSt. Mary'S [facility] Center04-22-2022 Miscellaneous Notes* Telephone Encounter - Sharon Ocampo LPN - 03/20/2022 4:27 PM EDT CBC order pending your approval. Sharon Ocampo LPN documented in this encounterSt. Mary'S Medical Center04-18-2022 History of Present illness Narrative* Jhony Lux MD - 03/16/2022 12:00 AM EDT MEREDITH VILLATORO [id number] 03/16/2022 [facility] Radiation Oncology Department SIMULATION NOTE DATE OF SIMULATION: 03/16/2022 THERAPIST: Viky Alicea MACHINE: Cloud 66 DIAGNOSIS: Malignant neoplasm of [id number] AREA: PELVIS CONTRAST: None <Select> Consent in [...] / WST 24:16 PM documented in this encounterSt. Mary'S [facility] Center04-18-2022 History of Present illness Narrative* Jhony Lux MD - 03/16/2022 12:00 AM EDT MEREDITH VILLATORO [id number] 03/16/2022 [facility] Department of Radiation Oncology Treatment Planning Note [...] blocking, isodose distribution, and/or ports and DVH. documented in this encounterSt. Mary'S Medical Center04-13-2022 History of Present illness Narrative* Patricia TERRELL Braga - 03/11/2022 4:04 PM EDT PSYCHOSOCIAL ASSESSMENT [...] is living and Father is Child/Children: No managed care nurse arrangements needed: Na Siblings: 2 sister(s) Grandchild(morris): none Home Health Provider: No Community Services: No Noelle Identified: No Confucianism/Spirituality: None Are these practices or beliefs that may affect or influence treatment? No EMPLOYMENT/FINANCIAL/HEALTH INSURANCE: Employment: [employer] Disability and Retired Income source: Social Security disability (SSD) Insurance: Medicare HMO Medicaid active Prescription coverage: Yes Is the patient appropriate for referral to [facility] COBRA Assistance program? N/A Financial Distress: Yes, gas cards requested Maddock: No FOOD INSECURITY Within the past year, [...] EPIC: No Health Care Durable Power of Manager Union: No and declined at this time Scanned [...] Resources and Referrals: Internal: NA External: Other [facility] CLINICAL IMPRESSION: Patient is a 61 year old male with a diagnosis of prostate cancer. Patient lives in [place], [place] with his mother and sister. Patient [...] to complete an Intake Application for the [facility]. SW faxed the completed form and encouraged the Patient to call the [facility] to finalize details of his intake application. CIRILO reviewed the role of an Oncology SW [...] PRN Follow up appointment with SW in: MARK Puckett documented in this encounterSt. Mary'S Medical Center04-13-2022 Nurse Note* Michelle Dalal RN - 03/11/2022 1:58 PM EDT Radiation Therapy - Patient Education Note PATIENT NAME: Meredith Villatoro PATIENT March 11, 2022 [facility] FACILITY/LOCATION: Critical access hospital READINESS TO LEARN Cognitive Ability: Alert and [...] by: Michelle Dalal RN documented in this encounterSt. Mary'S Medical Center04-13-2022 Nurse Note* Michelle Dalal RN - 03/11/2022 1:03 PM EDT AUA 8 Michelle Dalal RN documented in this encounterSt. Mary'S Medical Center04-13-2022 History of Present illness Narrative* Jhony Lux MD - 03/11/2022 1:02 PM EDT Radiation Oncology - Prostate Cancer New Patient/Consult Note PATIENT NAME: Meredith Villatoro PATIENT REQUESTING PROVIDER: Dr. Lambert DIAGNOSIS: 61 year old male with prostate adenocarcinoma, initial PSA 2.0, biopsy Yulee score 4 +4 = 8 (grade group [...] fusion biopsy on February 05, 2022 revealed: Yulee 8 (4+4) adenocarcinoma with areas of perineural [...] ASSESSMENT/PLAN: Prostate adenocarcinoma, initial PSA 2.0, biopsy Yulee score 4 + 4 = 8 (grade [...] presented. Signed by: Jhony Lux MD cc: Elif Castano [address] [place] [address] Leila Lambert [address] [facility] [id number] documented in this encounterSt. Mary'S Medical CenterEvaluation + Plan note Future Appointments Appointment Date:09/04/2022 10:15:00 AM Scheduled Provider:Leila LAMBERT MD Location:[facility] Appointment Type:URO Office Visit [facility] evaluation + Plan note Future Appointments Appointment Date:03/08/2023 02:45:00 PM Scheduled Provider:Leila LAMBERT MD Location:[facility] Appointment Type:URO Office Visit Diagnostic Tests Pending * PSA Total 11/29/22 [facility] evaluation + Plan note Future Appointments Appointment Date:03/08/2023 02:45:00 PM Scheduled Provider:Leila LAMBERT MD Location:[facility]ments Appointment Date:09/13/2023 10:15:00 AM Scheduled Provider:[facility] Office Visit Diagnostic Tests Pending * PSA Total 03/08/23 Future Scheduled Tests Laboratory* PSA Total 02/16/23 [facility] evaluation + Plan note Future Appointments Appointment Date:05/17/2023 11:45:00 AM Scheduled Provider:Leila LAMBERT [facility] Type:[facility] Office Visit Appointment Date:09/13/2023 10:15:00 AM Scheduled Provider:Leila LAMBERT [facility] Type:[facility] Office Visit Future Scheduled Tests Laboratory* PSA Total 02/16/23 [facility] evaluation + Plan note Future Appointments Appointment Date:07/12/2023 10:30:00 AM Scheduled Provider:Leila LAMBERT [facility] Type:[facility] Office Visit Appointment Date:09/13/2023 11:45:00 AM Scheduled Provider:[facility] Office Visit Future Scheduled Tests Laboratory* PSA Total 02/16/23 [facility] evaluation + Plan note Future Appointments Appointment Date:09/06/2023 09:30:00 AM Scheduled Provider: [facility] Nurse Visit Appointment Date:09/13/2023 11:45:00 AM Scheduled Provider:Leila LAMBERT MD Location:[facility] Appointment Type:URO Office Visit Future Scheduled Tests Laboratory* PSA Total 02/16/23 [facility] evaluation + Plan note Future Appointments Appointment Date:03/17/2024 10:45:00 AM Scheduled Provider:Leila LAMBERT MD Location:[facility] Appointment Type:URO Office Visit Diagnostic Tests Pending * PSA Total 09/13/23 Future Scheduled Tests Laboratory* PSA Total 02/16/23 [facility] evaluation + Plan note Future Appointments Appointment Date:09/29/2024 09:45:00 AM Scheduled Provider:Leila LAMBERT MD Location:[facility] Appointment Type:URO Office Visit Diagnostic Tests Pending * PSA Total 07/30/24 [facility] evaluation + Plan note Future Appointments Appointment Date:09/29/2024 09:45:00 AM Scheduled Provider:Leila LAMBERT MD Location:[facility] Appointments Appointment Date:10/16/2024 11:45:00 AM Scheduled Provider:Leila LAMBERT MD Location:[facility] Appointment Type:URO Office Visit [facility] evaluation + Plan note Future Appointments Appointment Date:01/08/2025 09:30:00 AM Scheduled Provider: Location:[facility] Appointment Type:URO Nurse Visit Appointment Date:01/15/2025 11:15:00 AM Scheduled Provider:Leila LAMBERT [facility] Type:[facility] Office Visit Diagnostic Tests Pending * PSA Total 10/16/24 [facility] evaluation + Plan note Future Appointments Appointment Date:01/15/2025 11:15:00 AM Scheduled Provider:Leila LAMBERT MD Location:[facility] Appointment Type:URO Office Visit [facility] evaluation + Plan note Future Appointments Appointment Date:07/02/2025 10:00:00 AM Scheduled Provider: Location:[facility] Appointment Type:URO Nurse Visit Appointment Date:07/23/2025 10:15:00 AM Scheduled Provider:Leila LAMBERT MD Location:[facility] Appointment Type:URO Office Visit Diagnostic Tests Pending * PSA Total 01/15/25 [facility] evaluation note* Diagnosis Prostate cancer (HCC)- Primary Malignant neoplasm of prostate [facility] Pro[facility] (HCC)- Primary Malignant neoplasm of prostate [facility] Diagnosis Malignant neoplasm of prostate (HCC)- Primary Malignant neoplasm of prostate [facility] Diagnosis Malignant neoplasm of prostate (HCC)- Primary Malignant neoplasm of prostate [facility] Diagnosis Prostate cancer (HCC) Malignant neoplasm of prostate [facility]* Diagnosis Malignant neoplasm of prostate (HCC)- Primary Malignant neoplasm of prostate [facility] Diagnosis Malignant neoplasm of prostate (HCC)- Primary Malignant neoplasm of prostate [facility]* Diagnosis Dysuria- Primary [facility]* Diagnosis Malignant neoplasm of prostate (HCC)- Primary Malignant neoplasm of prostate [facility] Diagnosis Malignant neoplasm of prostate (HCC)- Primary Malignant neoplasm of prostate Dysuria [facility] Diagnosis Malignant neoplasm of prostate (HCC)- Primary Malignant neoplasm of prostate [facility]* Diagnosis Malignant neoplasm of prostate (HCC)- Primary Malignant neoplasm of prostate [facility]* Diagnosis Malignant neoplasm of prostate (HCC)- Primary Malignant neoplasm of prostate [facility]* Diagnosis Malignant neoplasm of prostate (HCC)- Primary Malignant neoplasm of prostate [facility]* Diagnosis Malignant neoplasm of prostate (HCC)- Primary Malignant neoplasm of prostate [facility] Diagnosis Prostate cancer (HCC) Malignant neoplasm of prostate documented in this encounter [facility] note* Diagnosis Malignant neoplasm of prostate (HCC)- Primary Malignant neoplasm of prostate Gynecomastia, male Hypertrophy of breast documented in this encounter [facility] noteNo assessment information availableSelect [facility] Work Phone: evaluation note* Diagnosis History of prostate cancer- Primary Personal history of malignant neoplasm of prostate Prostate cancer (HCC) Malignant neoplasm of prostate documented in this encounter [facility] note* Diagnosis Onset Date Resolution Status Abdominal pain acute Diarrhea acute [facility] Work Phone: evaluation note* Diagnosis Onset Date Resolution Status Abdominal pain acute Diarrhea acute IBS (irritable bowel syndrome) [facility] Work Phone: evaluation note* Diagnosis Arthritis of left ankle- Primary Other enthesopathy of left foot and ankle Chronic pain of left ankle Other synovitis and tenosynovitis, left ankle and foot [facility] Diagnosis Arthritis of left ankle- Primary Other synovitis and tenosynovitis, left ankle and foot Chronic pain of left ankle [facility]* Diagnosis Arthritis of left ankle- Primary Other enthesopathy of left foot and ankle Chronic pain of left ankle Other synovitis and tenosynovitis, left ankle and foot Difficulty walking Difficulty in walking [facility]* Diagnosis Diarrhea, unspecified type- Primary Fecal urgency Personal history of prostate cancer Personal history of malignant neoplasm of prostate [facility]* Diagnosis Gastroenteritis and colitis, viral- Primary Intestinal infection due to other organism, NEC Irritable bowel syndrome, unspecified type documented [facility] this [facility]* Diagnosis Prostate cancer (HCC)- Primary Malignant neoplasm of prostate [facility] N[facility]ative - Reported* Type Description Date Medical History PROSTATE CANCER Medical History HIGH BLOOD PRESSURE Surgical History BOWEL RESECTION FOR UNCLEAR REASONS - POSSIBLE OBSTRUCTION 2012 Surgical History PROSTATE CANCER 2021 Hospitalization History SEE ABOVE [place] Other Hospital course Narrative No data available for this section [facility] Hospital Discharge instructions No data available for this section [facility] Hospital Discharge instructions Additional Instructions DISCHARGE INSTRUCTIONS [...] problems. -Follow up with PCP. -Office number [phone].[facility] Work Phone: InstructionsNot on filedocumented in this encounter [facility]ructionsNot on filedocumented in this encounter [facility]InstructionsNot on filedocumented in this encounter [facility] SystemInstructionsNot on filedocumented in this encounter [facility] No data available for this section [facility] [place] Summary Purpose Family History No Family History Records Found Relationship Condition Age at Onset Recorded Date/T vicky father Unknown sister Hypertension Unknown Diabetes mellitus Unknown Advance Directives No Advanced Directives Records Found Advance Directive Response Recorded Date/ Time Advance Directives No January 06, 2022 11:42am Advance Directive Response Recorded Date/ Time Advance Directives No January 06, 2022 12:42pm Date Activated Date Inactivated Comments 06/22/2022 12:10 AM 06/23/2022 6:44 PM Date Activated Date Inactivated Comments 01/05/2025 11:48 PM 01/08/2025 2:14 PM Date Activated Date Inactivated Comments 06/22/2022 12:10 [...] Abdominal pain Diarrhea IBS (irritable bowel syndrome) Chief Complaint Admit Date Unknown December 11, 2024 1 1:47am Additional Source Comments Source Comments (unrecognize d section and content) In the event this informatio n is protected by the Federal Confidentiality of Alcohol and Drug Abuse Patient Records regulations: The Federal rules restrict any use of the information to criminally investigate or prosecute any alcohol or drug abuse patient.[facility] CenterIn the event this information is protected by the Federal Confidentiality of Alcohol and Drug Abuse Patient Records regulations: The Federal rules restrict any use of the information to criminally investigate or prosecute any alcohol or drug abuse patient.[facility] CenterIn the event this information is protected by the Federal Confidentiality of Alcohol and Drug Abuse Patient Records regulations: The Federal rules restrict any use of the information to criminally investigate or prosecute any alcohol or drug abuse patient.[facility] CenterIn the event this information is protected by the Federal Confidentiality of Alcohol and Drug Abuse Patient Records regulations: The Federal rules restrict any use of the information to criminally investigate or prosecute any alcohol or drug abuse patient.[facility] CenterIn the event this information is protected by the Federal Confidentiality of Alcohol and Drug Abuse Patient Records regulations: The Federal rules restrict any use of the information to criminally investigate or prosecute any alcohol or drug abuse patient.[facility] CenterIn the event this information is protected by the Federal Confidentiality of Alcohol and Drug Abuse Patient Records regulations: The Federal rules restrict any use of the information to criminally investigate or prosecute any alcohol or drug abuse patient.[facility] CenterIn the event this information is protected by the Federal Confidentiality of Alcohol and Drug Abuse Patient Records regulations: The Federal rules restrict any use of the information to criminally investigate or prosecute any alcohol or drug abuse patient.[facility] CenterIn the event this information is protected by the Federal Confidentiality of Alcohol and Drug Abuse Patient Records regulations: The Federal rules restrict any use of the information to criminally investigate or prosecute any alcohol or drug abuse patient.[facility] CenterIn the event this information is protected by the Federal Confidentiality of Alcohol and Drug Abuse Patient Records regulations: The Federal rules restrict any use of the information to criminally investigate or prosecute any alcohol or drug abuse patient.[facility] CenterIn the event this information is protected by the Federal Confidentiality of Alcohol and Drug Abuse Patient Records regulations: The Federal rules restrict any use of the information to criminally investigate or prosecute any alcohol or drug abuse patient.[facility] CenterIn the event this information is protected by the Federal Confidentiality of Alcohol and Drug Abuse Patient Records regulations: The Federal rules restrict any use of the information to criminally investigate or prosecute any alcohol or drug abuse patient.[facility] CenterIn the event this information is protected by the Federal Confidentiality of Alcohol and Drug Abuse Patient Records regulations: The Federal rules restrict any use of the information to criminally investigate or prosecute any alcohol or drug abuse patient.[facility] CenterIn the event this information is protected by the Federal Confidentiality of Alcohol and Drug Abuse Patient Records regulations: The Federal rules restrict any use of the information to criminally investigate or prosecute any alcohol or drug abuse patient.[facility] CenterIn the event this information is protected by the Federal Confidentiality of Alcohol and Drug Abuse Patient Records regulations: The Federal rules restrict any use of the information to criminally investigate or prosecute any alcohol or drug abuse patient.[facility] CenterIn the event this information is protected by the Federal Confidentiality of Alcohol and Drug Abuse Patient Records regulations: The Federal rules restrict any use of the information to criminally investigate or prosecute any alcohol or drug abuse patient.[facility] CenterIn the event this information is protected by the Federal Confidentiality of Alcohol and Drug Abuse Patient Records regulations: The Federal rules restrict any use of the information to criminally investigate or prosecute any alcohol or drug abuse patient.[facility] CenterIn the event this information is protected by the Federal Confidentiality of Alcohol and Drug Abuse Patient Records regulations: The Federal rules restrict any use of the information to criminally investigate or prosecute any alcohol or drug abuse patient.[facility] CenterIn the event this information is protected by the Federal Confidentiality of Alcohol and Drug Abuse Patient Records regulations: The Federal rules restrict any use of the information to criminally investigate or prosecute any alcohol or drug abuse patient.[facility] CenterIn the event this information is protected by the Federal Confidentiality of Alcohol and Drug Abuse Patient Records regulations: The Federal rules restrict any use of the information to criminally investigate or prosecute any alcohol or drug abuse patient.[facility] CenterIn the event this information is protected by the Federal Confidentiality of Alcohol and Drug Abuse Patient Records regulations: The Federal rules restrict any use of the information to criminally investigate or prosecute any alcohol or drug abuse patient.[facility] CenterIn the event this information is protected by the Federal Confidentiality of Alcohol and Drug Abuse Patient Records regulations: The Federal rules restrict any use of the information to criminally investigate or prosecute any alcohol or drug abuse patient.[facility] the event this information is protected by the Federal Confidentiality of Alcohol and Drug Abuse Patient Records regulations: The Federal rules restrict any use of the information to criminally investigate or prosecute any alcohol or drug abuse patient.[facility] CenterIn the event this information is protected by the Federal Confidentiality of Alcohol and Drug Abuse Patient Records regulations: The Federal rules restrict any use of the information to criminally investigate or prosecute any alcohol or drug abuse patient.[facility] CenterIn the event this information is protected by the Federal Confidentiality of Alcohol and Drug Abuse Patient Records regulations: The Federal rules restrict any use of the information to criminally investigate or prosecute any alcohol or drug abuse patient.[facility] CenterIn the event this information is protected by the Federal Confidentiality of Alcohol and Drug Abuse Patient Records regulations: The Federal rules restrict any use of the information to criminally investigate or prosecute any alcohol or drug abuse patient.[facility] CenterIn the event this information is protected by the Federal Confidentiality of Alcohol and Drug Abuse Patient Records regulations: The Federal rules restrict any use of the information to criminally investigate or prosecute any alcohol or drug abuse patient.[facility] CenterIn the event this information is protected by the Federal Confidentiality of Alcohol and Drug Abuse Patient Records regulations: The Federal rules restrict any use of the information to criminally investigate or prosecute any alcohol or drug abuse patient.[facility] CenterIn the event this information is protected by the Federal Confidentiality of Alcohol and Drug Abuse Patient Records regulations: The Federal rules restrict any use of the information to criminally investigate or prosecute any alcohol or drug abuse patient.[facility] CenterIn the event this information is protected by the Federal Confidentiality of Alcohol and Drug Abuse Patient Records regulations: The Federal rules restrict any use of the information to criminally investigate or prosecute any alcohol or drug abuse patient.[facility] CenterIn the event this information is protected by the Federal Confidentiality of Alcohol and Drug Abuse Patient Records regulations: The Federal rules restrict any use of the information to criminally investigate or prosecute any alcohol or drug abuse patient.[facility] the event this information is protected by the Federal Confidentiality of Alcohol and Drug Abuse Patient Records regulations: The Federal rules restrict any use of the information to criminally investigate or prosecute any alcohol or drug abuse patient.[facility] the event this information is protected by the Federal Confidentiality of Alcohol and Drug Abuse Patient Records regulations: The Federal rules restrict any use of the information to criminally investigate or prosecute any alcohol or drug abuse patient.[facility] Reason for Visit (unrecogniz ed section and content) Reason Comments Patient Education Reason Comments Prostate Cancer Specialty Diagnoses / Procedures Referred By Contac t Referred To Contact Radiation Oncology / RADIATION ONCOLOGY Diagnoses Dr. Lambert referral DX: Prostate Ca Procedures NEW PATIENT RAD ONC Leila Lambert MD [address] [place] [address] Jhony Lux MD [address] [place] [address] [place] [address] Referral ID Status Reason Start Date Expiration Date Visits Re quested Visits Authorized [id number] Closed 03/11/2022 11/28/2022 1 1 Reason Comments Orders Reason Comments Radiotherapy On-treatment Visit Reason Comments Diarrhea Reason Comments Urinalysis Reason Comments Volume Study Specialty Diagnoses / Procedures Referred By Contac t Referred To Contact Radiation Oncology / RADIATION ONCOLOGY Diagnoses Malignant neoplasm of prostate SIM/IRA/Pelvis Procedures SIMULATION MOLLY IMRT 25 fractions Jhony Lux MD [address] [place] [address] [place] [address] Jhony Lux MD [address] [place] [address] [place] [address] Referral ID Status Reason Start Date Expiration Date V isits Requested Visits Authorized [id number] Authorized 03/16/2022 11/28/2022 99 99 Reason Comments Nutrition Telephone Specialty Diagnoses / Procedures Referred By Contac t Referred To Contact Radiation Oncology / RADIATION ONCOLOGY Diagnoses Malignant neoplasm of prostate 6 Month Follow Up Procedures OFFICE/OUTPATIENT ESTABLISHED HIGH MDM 40-54 MIN OFFICE/OUTPATIENT ESTABLISHED MOD MDM 30-39 MIN OFFICE/OUTPATIENT ESTABLISHED LOW MDM 20-29 MIN OFFICE/OUTPATIENT ESTABLISHED SF MDM 10-19 MIN EST PATIENT Anglim, Elif, ORDER PROCESSOR [address] [place] [address] Jhony Lux MD [address] [place] [address] [place] [address] Referral ID Status Reason Start Date Expiration Date Visits Re quested Visits Authorized [id number] Closed 06/21/2023 11/28/2023 1 1 Specialty Diagnoses / Procedures Referred By Contac t Referred To Contact Radiation Oncology / RADIATION ONCOLOGY Diagnoses followup Procedures OFFICE/OUTPATIENT ESTABLISHED HIGH MDM 40 MIN EST PATIENT Elif Castano, ORDER PROCESSOR [address] [place] [address] Jhony Lux MD [address] [place] [address] [place] [address] Referral ID Status Reason Start Date Expiration Date Visits Re quested Visits Authorized [id number] Closed 12/16/2023 11/28/2024 1 1 Referral ID Status Reason Start Date Expiration Date Visits Re quested Visits Authorized [id number] Closed 03/16/2022 11/28/2022 99 99 Reason Onset [...] to discuss option.s Reason Comments MRI results Reason Comments Diarrhea Reason Comments Nausea Nausea, vomiting, PM H ER 01/05/25, last colon 09/11/24 Specialty Diagnoses / Procedures Referred By Contac t Referred To Contact Radiation Oncology / RADIATION ONCOLOGY Diagnoses Follow-up exam, more than 1 year since previous exam 1 yr rv Procedures OFFICE/OUTPATIENT ESTABLISHED HIGH MDM 40 MIN EST PATIENT Jhony Lux MD [address] [place] [address] Phone: tel: [place]: [place] [address] [place] [address] Phone: tel: Referral ID Status Reason Start Date Expiration Date V isits Requested Visits Authorized [id number] Authorized 12/28/2024 11/28/2025 99 99 Care Teams (unrecognized sec tion and content) Team Status: Active Member Role Status Dates [facility] Primary Care Provider Active Team Status: Inactive Member Role Status Dates [facility] Primary Care Provider Active Start: June 22, 2024 End: June 22, 2024 Fred Kirk MD Attending Provider Active S tart: June 22, 2024 End: June 22, 2024 Team Status: Active Member Role Status Dates [facility] Primary Care Provider Active Start: January 05, 2024 Fred Kirk MD Attending Provider, Other Provider Active Start: January 05, 2024 Team Status: Inactive Member Role Status Dates [facility] Primary Care Provider Active Start: March 01, 2024 End: March 01, 2024 Fred Kirk MD Attending Provider Active S tart: March 01, 2024 End: March 01, 2024 Mc Kay Machine Operator Relationship Specialty Start Date End Date Elif Castano CNP [address] [place] [address] PCP - General Internal Medicine 03/03/22 Leila Lambert MD [address] [place], [place] [id number] Referring Urology 03/03/22 Mc Kay Machine Operator Relationship Specialty Start Date End Date Elif Castano CNP [address] [place] [address] PCP - General Internal Medicine 03/03/22 Leila Lambert MD [address] [place] [address] Referring Urology 03/03/22 Mc Kay Machine Operator Relationship Specialty Start Date End Date Elif Castano CNP [address] [place] [address] PCP - General Internal Medicine 03/03/22 Leila Lambert MD [address] [place] [address] Referring Urology 03/03/22 Mc Kay Machine Operator Relationship Specialty Start Date End Date Elif Castano CNP [address] [place] [address] PCP - General Internal Medicine 03/03/22 Leila Lambert MD [address] [place] [address] Referring Urology 03/03/22 Mc Kay Machine Operator Relationship Specialty Start Date End Date Elif Castano CNP [address] [place] [address] PCP - General Internal Medicine 03/03/22 Leila Lambert MD [address] [place] [address] Referring Urology 03/03/22 Mc Kay Machine Operator Relationship Specialty Start Date End Date Elif Castnao CNP [address] [place] [address] PCP - General Internal Medicine 03/03/22 Leila Lambert MD [address] [place] [address] Referring Urology 03/03/22 Mc Kay Machine Operator Relationship Specialty Start Date End Date Elif Castano CNP [address] [place] [address] PCP - General Internal Medicine 03/03/22 Leila Lambert MD [address] [place] [address] Referring Urology 03/03/22 Mc Kay Machine Operator Relationship Specialty Start Date End Date HanselElif rodriguez CNP [address] [place] [address] PCP - General Internal Medicine 03/03/22 Leila Lambert MD [address] [place] [address] Referring Urology 03/03/22 Mc Kay Machine Operator Relationship Specialty Start Date End Date Elif Castano, SARAH [address] [place] [address] PCP - General Internal Medicine 03/03/22 Leila Lambert MD [address] [place] [address] Referring Urology 03/03/22 Mc Kay Machine Operator Relationship Specialty Start Date End Date Elif Castano, SARAH [address] [place] [address] PCP - General Internal Medicine 03/03/22 Leila Lambert MD [address] [place] [address] Referring Urology 03/03/22 Mc Kay Machine Operator Relationship Specialty Start Date End Date Elif Castano CNP [address] [place] [address] PCP - General Internal Medicine 03/03/22 Leila Lambert MD [address] [place] [address] Referring Urology 03/03/22 Mc Kay Machine Operator Relationship Specialty Start Date End Date Elif Castano CNP [address] [place] [address] PCP - General Internal Medicine 03/03/22 Leila Lambert MD [address] [place] [address] Referring Urology 03/03/22 Mc Kay Machine Operator Relationship Specialty Start Date End Date Elif Castano CNP [address] [place] [address] PCP - General Internal Medicine 03/03/22 Leila Lambert MD [address] [place] [address] Referring Urology 03/03/22 Mc Kay Machine Operator Relationship Specialty Start Date End Date Elif Castano CNP [address] [place] [address] PCP - General Internal Medicine 03/03/22 Leila Lambert MD [address] [place] [address] Referring Urology 03/03/22 Mc Kay Machine Operator Relationship Specialty Start Date End Date Elif Castano CNP [address] [place] [address] PCP - General Internal Medicine 03/03/22 Leila Lambert MD [address] [place] [address] Referring Urology 03/03/22 Mc Kay Machine Operator Relationship Specialty Start Date End Date Elif Castano CNP [address] [place] [address] PCP - General Internal Medicine 03/03/22 Leila Lambert MD [address] [place] [address] Referring Urology 03/03/22 Mc Kay Machine Operator Relationship Specialty Start Date End Date Elif Castano CNP [address] [place] [address] PCP - General Internal Medicine 03/03/22 Leila Lambert MD [address] [place] [address] Referring Urology 03/03/22 Mc Kay Machine Operator Relationship Specialty Start Date End Date Elif Castano CNP [address] [place], [place] [id number] PCP - General Internal Medicine 01/05/23 Leila Lambert MD [address] [place], [place] [id number] Referring Urology 03/03/[address] [address] 01/05/23 Mc Kay Machine Operator Relationship Specialty Start Date End Date Elif Castano CNP [address] [place] [id number] PCP - General Internal Medicine 01/05/23 Leila Lambert MD [address] [place], [place] [id number] Referring Urology 03/03/[address] [address] 01/05/23 Team Status: Inactive Member Role Status Dates [facility] Primary Care Provider Active Fred Kirk MD Attending Provider Active Team Status: Inactive Member Role Status Dates Fred Kirk MD Attending Provider Active S tart: November 30, 2023 End: November 30, 2023 Team Status: Inactive Member Role Status Dates [facility] Primary Care Provider Active Start: November 30, 2023 End: November 30, 2023 Fred Kirk MD Attending Provider Active S tart: November 30, 2023 End: November 30, 2023 Mc Kay Machine Operator Relationship Specialty Start Date End Date Elif Castano CNP [address] [place], [place] [address], [place] [id number] PCP - General Internal Medicine 01/05/23 Leila Lambert MD [address] [place], [place] [id number] Referring Urology 03/03/22 [facility] [address] [place], [place] [address] 01/05/23 Mc Kay Machine Operator Relationship Specialty Start Date End Date Elif Castano CNP [address] [facility] [place] [address] PCP - General Internal Medicine 03/03/22 01/04/23 Leila Lambert MD [address] [place] [address] Referring Urology 03/03/22 Mc Kay Machine Operator Relationship Specialty Start Date End Date Elif Castano CNP [address] [place] [address] PCP - General Internal Medicine 03/03/22 01/04/23 Leila Lambert MD [address] [place] [address] Referring Urology 03/03/22 Mc Kay Machine Operator Relationship Specialty Start Date End Date Yloette Warren MD [address] [place] [address] PCP - General Pediatrics 05/16/24 Mc Kay Machine Operator Relationship Specialty Start Date End Date Yolette Warren MD [address] [place] [address] PCP - General Pediatrics 05/16/24 Mc Kay Machine Operator Relationship Specialty Start Date End Date Yolette Warren MD [address] [place] [address] PCP - General Pediatrics 05/16/24 Mc Kay Machine Operator Relationship Specialty Start Date End Date Yolette Warren MD [address] [place] [address] PCP - General Pediatrics 05/16/24 Mc Kay Machine Operator Relationship Specialty Start Date End Date Yolette Warren MD [address] [place] [address] PCP - General Pediatrics 05/16/24 Mc Kay Machine Operator Relationship Specialty Start Date End Date Yolette Warren MD [address] [place] [address] PCP - General Pediatrics 05/16/24 Team Status: Inactive Member Role Status Dates Anjana Dietz DPM MS Attending Provider Active Start: December 11, 2024 End: December 11, 2024 Mc Kay Machine Operator Relationship Specialty Start Date End Date Services, [facility] [address] [place] PCP - General Family Medicine 06/08/21 Mc Kay Machine Operator Relationship Specialty Start Date End Date Services, [facility] [address] [place] PCP - General Family Medicine 06/08/21 Mc Kay Machine Operator Relationship Specialty Start Date End Date Services, [facility] [address] [place] PCP - General Family Medicine 06/08/21 Mc Kay Machine Operator Relationship Specialty Start Date End Date Services, [facility] [address] [place] PCP - General Family Medicine 01/05/25 (unrecognized sect ion and content) No Status Records FoundNo Status Records FoundNo Status Records FoundNo Status Records FoundNo Status Records FoundNo Status Records FoundNo Status Records FoundNo Status Records FoundNo Status Records FoundNo Status Records Found INFORMATION SOURCE (unrecogn ized section and content) DATE CREATED AUTHOR 02/06/2023 [facility] DATE CREATED AUTHOR AUTHOR'S ORGANIZ ATION 02/21/2023 [facility] DATE CREATED AUTHOR AUTHOR'S ORGANIZ ATION 10/11/2024 [facility] EPIC DATE CREATED AUTHOR AUTHOR'S ORGANIZ ATION 10/19/2024 [facility]ow [facility] DATE CREATED AUTHOR AUTHOR'S ORGANIZ ATION 12/16/2024 [facility] DATE CREATED AUTHOR AUTHOR'S ORGANIZ ATION 01/16/2025 [facility]h [facility] DATE CREATED AUTHOR AUTHOR'S ORGANIZ ATION 01/18/2025 [facility] DATE CREATED AUTHOR AUTHOR'S ORGANIZ ATION 01/31/2025 [facility] DATE CREATED AUTHOR AUTHOR'S ORGANIZ ATION 02/13/2025 [facility] DATE CREATED AUTHOR AUTHOR'S ORGANIZ ATION 02/21/2025 [facility] Goals (unrecognized section and content) Goals [...] BE BASED ON THE PRIMARY CLINICAL RECORDS. [employer] provides no warranty or guarantee of the accuracy or completeness of information in this document.
[2025-02-22] MEDS: LACTATED RINGER'S SOLUTION 1,000 ML 50 ML IV ×2 (10:39→13:42)
[2025-02-22] MEDS: CEFAZOLIN SODIUM 2 GM/50 ML D5W PREMIX IV (11:36)
--- NOTE | 2025-02-22 12:49 | PM.URSON ---
Urology Surgery Operative Note Operative Note Procedure Date: 02/22/25 Time Out Performed: yes Pre-op Diagnosis: Hematuria and prostate mass Post-op Diagnosis: same as pre-op Procedures performed: 1. Cystoscopy. 2. Transurethral resection of prostate mass approximately 4 cm Anesthesia: SHAYLA Primary Surgeon: Tarik Jim Complications: None Estimated blood loss (mL): 5 Findings: Large protuberance originating from the right lateral wall of the prostate and blocking the bladder outlet Specimens: Prostate mass Drains: 22 [place] Brothers catheter Indications for Procedures: This gentleman has a history of high-grade prostate cancer. He has had radiation therapy and hormone therapy for this. He developed hematuria and was found to have a large mass originating from the right lateral lobe of the prostate and ball valving the bladder outlet. He now presents for cystoscopy and transurethral resection of this mass. He has signed an informed consent after risks were explained. Some of these risks include bleeding, infection, anesthesia, urinary incontinence both temporary and permanent, erectile dysfunction and the possible need for further operations to name a few. Detailed description of Procedure: The patient was brought to the operating room and placed on the operating room table in the supine position. SCDs were placed on the lower extremities and turned on and functioning during the entire case. Timeout was done by all parties in the room. We all agreed upon the patient's identification and the planned procedures for this patient. Genn. anesthesia was then administered. The patient was then repositioned into the modified dorsal lithotomy position. All pressure points were satisfactorily padded. Genitalia were sterilely prepped and draped in usual fashion. I started by passing a 26 [place] Island[place] Olympus resectoscope with a standard bipolar loop electrode per urethra and into the prostate. As I approached the area of the bladder neck 1 could see a large fleshy growth originating from the right lateral lobe of the prostate near the bladder neck. This growth block to the bladder outlet totally. I then passed the scope beyond it and into the bladder. I identified the ureteral orifices. I could see that there was some tumor growing within the bladder at the bladder neck on the right side. I uniformly resected this tumor area within the bladder. I then resected the large protruding mass from the right side of the prostate. I made sure not to approach the Veru so as to spare continence since he had radiation. I was able to get all of the mass and tumor out. I then used a rollerball electrode and significantly coagulated all the resection areas. The Ilich evacuator was used to get all the tumor out and this was sent for permanent sections. I was able not to have to resect much of the [place] prostate and therefore bleeding was minimal. I elected not to start CBI. I removed the scope and then passed a 22 [place] two-way Brothers catheter in the bladder. 10 cc of fluid was placed in the balloon. It drained clearly. The anesthetic was then reversed. He was then transferred [facility] bed and wheeled to PACU in stable condition. He will be discharged to home later today with a prescription for doxycycline 100 mg twice daily for a week.
[2025-02-22] MEDS: HYDROMORPHONE HCL 0.5 MG/0.5 ML SYRINGE IV ×4 (13:08→13:40)
[2025-02-22] MEDS: HYOSCYAMINE SULFATE 0.125 MG TAB.SUBL SL (13:18)
--- NOTE | 2025-02-22 13:26 | PC.NURSE ---
1318: pt pain 07/08,pt given PRN 0.5mg Diluadid and 0.125mg Levsin at this time.
--- NOTE | 2025-02-22 13:31 | PC.NURSE ---
1330: pt pain 8/10,given PRN 0.5mg Dilaudid at this time.
--- NOTE | 2025-02-22 13:43 | PC.NURSE ---
1340: pt pain 6/10,PRN 0.5mg Dilaudid given.
[2025-02-22] MEDS: SOLIFENACIN SUCCINATE 10 MG TABLET PO (14:28)
== END 2025-02-22 16:50 | disposition home or self-care (01) ==
PROVIDERS: Visit Provider Urology
PROC: (CPT 914; principal; 2025-02-22 11:15)
DX: C61 Malignant neoplasm of prostate (principal); E78.00 Pure hypercholesterolemia, unspecified; R31.9 Hematuria, unspecified; Z87.891 Personal history of nicotine dependence; I10 Essential (primary) hypertension; N40.1 Benign prostatic hyperplasia with lower urinary tract symptoms; M19.90 Unspecified osteoarthritis, unspecified site; G47.33 Obstructive sleep apnea (adult) (pediatric); E78.5 Hyperlipidemia, unspecified; K21.9 Gastro-esophageal reflux disease without esophagitis
CPT/HCPCS: 52601; 36415; 88305; J0131; J0690; J1100; J1171; J2250; J2371; J2405; J2704; J3010

== ENCOUNTER 2025-09-14 12:30 | Outpatient (OUT) | payer MEDICARE, MEDICAID, SELFPAY ==
--- NOTE | 2025-09-14 12:33 | MR_ITS ---
[address] [address] Patient Name: MEREDITH VILLATORO MRN: [id number] date: 1960 Sex: M Assigned Patient Location: MRI Current Patient Location: MRI Accession/Order Number: [id number] Exam Date: 09/14/2025 12:40 Report Date: 09/14/2025 16:26 At the request of: ANJANA DIETZ DPM Procedure: MR ankle LT wo con MR ankle LT wo con 09/14/2025 1:29 PM SIGNS AND SYMPTOMS: Ankle Degenerative Joint Disease, Tibial Tendinopathy PROTOCOL: Multiplanar multisequence MR images of the left ankle without IV contrast COMPARISON: 12/01/2024 and 06/23/2024 FINDINGS: Alignment: Normal. Fluid: Tibiotalar: No joint effusion. Subtalar: No joint effusion. Medial: Medial malleolus: Intact. Tendons: Posterior tibial tendon: Intact. Flexor digitorum longus: Intact. Flexor hallucis longus: Intact. Ligaments: Deltoid ligament complex - superficial: Intact. Deltoid ligament complex - deep: Intact. Spring (plantar calcaneo-navicular) ligament: Intact. Lateral: Lateral malleolus: Normal. Retromalleolar groove: Normal. Tendons: Peroneus longus: Intact. Peroneus brevis: Intact. Peroneal retinaculum: Intact. Ligaments: Anterior inferior tibiofibular (syndesmosis): Intact. Posterior inferior tibiofibular (syndesmosis): Intact. Anterior talofibular ligament: Intact. Calcaneofibular ligament: Intact. Posterior talofibular ligament: Intact. Posterior: Posterior talus: Normal. Intermalleolar ligament: Intact. Achilles tendon: Intact. Plantar fascia: Intact. Anterior: Tendons: Anterior tibial tendon: There is thickening of the anterior tibial tendon. The tendon is intact without significant edema. This is more pronounced when compared to the prior exam suggesting a long-standing tendinopathy. Extensor hallucis longus: Intact. Extensor digitorum longus: Intact. 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 Subtalar joint: Subchondral edema is noted along the subtalar joint along the anterior process of the calcaneus. Bones (other than subarticular marrow): Normal Muscles: Normal Tarsal tunnel: Normal Sinus tarsi: Normal. 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 This is slightly worse when compared to the prior exam. Subchondral edema is noted along the subtalar joint along the anterior process of the calcaneus. This is similar to the prior exam. There is thickening of the anterior tibial tendon. The tendon is intact without significant edema. This is more pronounced when compared to the prior exam suggesting a long standing tendinopathy. Impression dictated by: Ramos Burroughs M.D. 09/14/2025 4:26 PM Dictation Location: [place] [address] Electronically authenticated by: [id number] Y Date: 09/14/2025 16:26
--- OUTSIDE RECORDS SUMMARY | 2025-09-14 12:35 | XMS_ITS | CCD ---
Author Organization [facility] Care Team Providers Care Birth Certificate Clerk Name Role Phone Adrian Castano CNP Primary Care Provider Leila Lambert MD Unavailable Leila LAMBERT Primary Care Physician [phone] Adrian Castano CNP Primary Care Provider Leila Lambert MD Unavailable [phone] NONE, XXXX Primary Care Physician Unavailab Leila Mckenna MD Unavailable [phone] Adrian Castano CNP Primary Care Provider LAMBERT ., DR DEE Admitting Unavailable LAMBERT ., DR DEE Attending Unavailable [facility] Primary Care Unava ilable LAMBERT ., DR DEE Consulting Unavailable LEYVA, MICHELLE Consulting Unavailable ESPAÑA, KEVIN Consulting Unavailable [facility] Consulting Unava ilable LAMBERT ., DR DEE Admitting Unavailable LAMBERT ., DR DEE Attending Unavailable [facility] Unava ilable LAMBERT ., DR DEE Consulting Unavailable ENGELER, DR ZAINAB Minor Consulting Unavailable ZIEBER, DR KOBE Simpson Consulting Unavailable AGUBOSIMJOSE Consulting Unavailable ROULAZOLTAN Nash Consulting Unavailable LAMBERT ., DR DEE Admitting Unavailable LAMBERT ., DR DEE Attending Unavailable [facility] Unava ilable LAMBERT ., DR DEE Consulting Unavailable Asaad, Imad [facility]available [facility] Primary Care Provider MD Fred Kirk Attending Provider [phone] Adrian Castano CNP Primary Care Provider [phone] Yolette Warren MD Primary Care Provider KERRI BENITEZ W Attending Unavailable BENITEZ, KERRI W Referring Unavailable BENITEZ, KERRI W Attending Unavailable BENITEZ, KERRI W Referring Unavailable BENITEZ, KERRI W Attending Unavailable BENITEZ, KERRI W Attending Unavailable MELO REILLY Attending Unavailable LAMBERT, Leila R Attending Unavailable LAMBERT, Leila R Admitting Unavailable LAMBERT, Leila R Attending Unavailable LAMBERT, Leila R Admitting Unavailable LAMBERT, Leila R Attending Unavailable LAMBERT, Leila R Attending Unavailable LAMBERT, Leila R Attending Unavailable Anjana Dietz DPM Attending Provider Leila LAMBERT Attending Unavailable Maricruz Johnson Admitting Unavailable Maricruz Johnson Attending Unavailable LAMBERT, Leila Simpson Admitting Unavailable LAMBERT, Leila Simpson Attending Unavailable LAMBERT, Leila Simpson Attending Unavailable Services, [facility] Primary Care Provider Services, [facility] Provider [facility]LL[facility] Adrian Primary Care Provider Anjana Dietz DPM Attending Provider Leila Lambert MD Attending Provider Anjana Dietz Admitting Unavailable Anjana Dietz Attending Unavailable Petra, Leila Admitting Unavailable Leila Lambert Attending Unavailable [facility] Care Provider HANK ENGLE Referring Unavailable SERVICES, [facility] Care Unava ilable KERRI SHAH Attending Unavailable SERVICES, [facility] Care Unava ilable KERRI SHAH Attending Unavailable SERVICES, [facility] Care Unava ilable RONY LUNA Admitting Unavailable RONY LUNA Referring Unavailable SERVICES, [facility] Primary Care Unava ilable [place] [employer] [facility] ulting Unavailable CLARIBEL PACE Attending Unavailable CLARIBEL PACE Consulting Unavailable EDILIA DOAN Consulting Unavailable JIMMIE ESPINOZA Consulting Unavailable ALCIRA ARANDA Referring Unavailable SERVICES, [facility] Primary Care Unava ilable SERVICES, [facility] Primary Care Unava ilable FADI AVELAR Attending Unavailable Leila Lambert MD [facility] LEILA LAMBERT Referring Unavailable ANGLIM, ADRIAN Primary Care Unavailable Jhony LUX Attending Unavailable Jhony LUX Referring Unavailable ANGLIM, ADRIAN Primary Care Unavailable NOELLE ROGERS Referring Unavailable SERVICES, [facility] Unava ilable SERVICES, [facility] Care Unava ilable TRACY CHAU Admitting Unavailable TRACY CHAU Attending Unavailable SERVICES, [facility] Unava ilable SERVICES, [facility] Unava ilable LEAH ARAMBULA Attending Unavailable SERVICES, [facility] Unava ilable GLENNA COLLINS Consulting Unavailable ALCIRA ARANDA Admitting Unavailable ALEXANDREDUANE Dorsey Attending Unavailable TRACY HILL Attending Unavailab le TRACY HILL Referring Unavailab le SERVICES, [facility] Unava ilable ANJANA DIETZ Referring Unavailable SERVICES, [facility] Unava ilable SERVICES, [facility] Unava ilable TRACY HILL Attending Unavailab le SERVICES, [facility] Unava ilable DUANE SCHROEDER Admitting Unavailable CARDIOLOGY, [facility] Consulting Unavailable ALCIRA ARANDA Attending Unavailable ANJANA DIETZ Referring Unavailable SERVICES, [facility] Unava ilable JAMES POSADA Attending Unavailable SERVICES, [facility] Unava ilable SERVICES, [facility] Unava ilable LEAH ARAMBULA Attending Unavailable SERVICES, [facility] Unava ilable WILLIE JOHN Attending Unavailable NKADIIMMANUEL Attending Unavailable SERVICES, [facility] Unava ilable LAMBERT, Leila Simpson Attending Unavailable LAMBERT, Leila Simpson Attending Unavailable LAMBERT, Leila Simpson Attending Unavailable WILIAN MENDEITA Attending Unavailab le LAMBERT, Leila Simpson Attending Unavailable LAMBERT, Leila Simpson Admitting Unavailable LAMBERT, Leila Simpson Attending Unavailable LAMBERT, Leila Simpson Referring Unavailable LAMBERT, Leila Simpson Attending Unavailable LAMBERT, Leila Simpson Admitting Unavailable LueMaricruz Admitting Unavailable LuMaricruz mckeon Attending Unavailable LAMBERT, Leila Simpson Attending Unavailable LAMBERT, Leila Simpson Attending Unavailable LAMBERT, Leila Simpson Attending Unavailable LAMBERT, Leila Simpson Attending Unavailable Allergies Allergy Classification Reported Allergen(s) Allergy Type Date of Onset Reaction(s) Facility (10 sources) Codeine Drug Allergy 2 [facility] Work Phone: (10 sources) Guaifenesin-Code ine Drug Allergy 3 Cough [facility] (3 sources) No Known Medication Allergies; Translations: [No Known Medication Allergies] Propensity to adverse reactions (disorder) [facility] Repository (19 sources) Codeine / guaiFENesin; Translations: [CODEINE-GUAIFEN ESIN] [facility] [employer] [facility] Work [facility]: Medications Current Medications Medication Drug Class(es) Dates Sig (Normalized) Sig (Original) amiodarone hydrochloride 200 mg oral tablet (12 sources) Antiarrhythmic Start: 03-15-2025 End: 06-20-2025 take 1 tablet by mouth in the morning amiodarone (PACERONE) 200 mg tablet Indications: Postoperative atrial fibrillation (CMS-HCC) Take 1 tablet (200 mg total) by mouth in the morning. 90 tablet 1 06/21/2025 Active Start: 03-07-2025 End: 04-11-2025 take 2 tablets by mouth twice daily, then take 1 tablet by mouth once daily amiodarone (PACERONE) 200 mg tablet Take 2 tablets (400 mg total) by mouth 2 (two) times a day for 5 days, THEN 1 tablet (200 mg total) daily for 30 days. 50 tablet 03/07/2025 03/15/2025 Discontinued Aspirin (20 sources) Platelet Aggregation Inhibitor, Nonsteroidal Anti-inflammatory Drug Start: 08-13-2025 Aspirin Low Dose mg, Daily, Refills(s) 0 Start Date: 08/13/25 Status: Ordered Repeat number: 1 Start: 03-08-2025 End: 04-14-2025 take 1 tablet by mouth in the morning aspirin 81 mg Indications: S/P CABG x 2 Take 1 tablet (81 mg total) by mouth in the morning. 30 tablet 11 04/10/2025 Active Start: 06-23-2022 take 1 tablet by jeniffer th in the morning RA Aspirin EC 325 MG EC tablet Take 325 mg by mouth in the morning. 06/23/2022 Active atorvastatin 40 mg oral tablet (20 sources) HMG-CoA Reductase Inhibitor Start: 03-07-2025 End: 04-06-2025 take 1 tablet by mouth once daily atorvastatin (LIPITOR) 40 mg tablet Indications: S/P CABG x 2 Take 1 tablet (40 mg total) by mouth nightly. 90 tablet 3 03/23/2025 Active Start: 01-13-2022 atorvastatin 1 0 mg Tab Refills(s) 0 Start Date: 03/08/23 Status: Ordered Repeat number: 1 Start: 03-01-2017 take 0.5 tablet by m outh in the morning atorvastatin (LIPITOR) 20 mg tablet Take 0.5 tablets (10 mg total) by mouth in the morning. 0 03/01/2017 Suspended Comment on above: Take 10 mg by mouth once daily. bicalutamide 50 mg oral tablet (7 sources) Androgen Receptor Inhibitor Start: take 1 tablet by mouth once daily bicalutamide (CASODEX) 50 mg chemo tablet Take 1 tablet by mouth nightly 03/26/2025 Active Start: 03-26-2025 End: 03-21-2026 take 1 tablet by mouth every twenty-four hours Casodex 50 mg Tab 50 mg = 1 tab(s), Oral, q24hr, X 90 day(s), # 90 tab(s), Refills(s) 3, Pharmacy: [facility] [id number], 160, cm, 03/26/25 9:43:00 EDT, Height/Length Dosing, 98, kg, 03/26/25 9:43:00 EDT, Weight Dosing Start Date: 03/26/25 Stop Date: 03/21/26 Status: Ordered Quantity: 90.0 Unit: tab(s) Repeat number: 4 Indications: Rising PSA following treatment for malignant neoplasm of prostate; Malignant neoplasm of prostate; clopidogrel 75 mg oral tablet (11 sources) [id number] Platelet Inhibitor Start: 06-24-2022 End: 08-23-2024 take 1 tablet by mouth in the morning clopidogrel (Plavix) 75 MG tablet Take 75 mg by mouth in the morning. 06/24/2022 Active cyclobenzaprine hydrochloride 10 mg oral tablet (20 sources) Muscle Relaxant Start: 02-20-2023 End: 08-23-2024 cyclobenzaprine 10 mg Tab Refills(s) 0 Start Date: 03/08/23 Status: Ordered dicyclomine hydrochloride 20 mg oral tablet (15 sources) Anticholinergic Start: 06-22-2024 take 1 tablet by mouth three times daily Dicyclomine 20 mg tablet Active 20 MG PO Three times daily June 22, 2024 3:02pm Take 1 tablet orally three times a day. Start: 03-01-2024 End: 06-22-2024 take 1 tablet by mouth twice daily Dicyclomine 20 mg tablet Discontinued 20 MG PO Three times daily June 22, 2024 1:54pm June 22, 2024 3:03pm Take 1 tablet orally twice a day. docusate sodium 50 mg / sennosides, nursing home 8.6 mg oral tablet (3 sources) Start: 03-07-2025 End: 03-21-2025 take 2 tablets by mouth in the morning sennosides-docusate sodium (SENOKOT-S) 8.6-50 mg Indications: constipation Take 2 tablets by mouth in the morning and 2 tablets before bedtime. Do all this for 14 days. Indications: constipation. 56 tablet 03/07/2025 03/21/2025 Active doxycycline hyclate 100 mg oral capsule (20 sources) Tetracyclin e-class Drug Start: 05-17-2023 End: 05-31-2023 take 1 capsule by mouth every twelve hours doxycycline hyclate 100 mg Cap 100 mg = 1 cap(s), Oral, q12hr, X 14 day(s), # 28 cap(s), Refills(s) 0, Pharmacy: [facility] #[id number], 160, cm, 05/17/23 12:23:00 EDT, Height/Length Dosing, [...] Take 100 mg by mouth twice daily. famotidine 20 mg oral tablet (9 sources) Histamine-2 Receptor Antagonist Start: End: take 1 tablet by mouth in the morning famotidine (PEPCID) 20 mg tablet Take 1 tablet (20 mg total) by mouth in the morning for 30 days. 30 tablet 03/08/2025 04/07/2025 Active Fluticasone Furoate 27.5 MCG/SPRAY (1 source) Fluticasone Furo ate 27.5 MCG/SPRAY 2 sprays (1 spray in each nostril) Nasally Once a day Active furosemide 20 mg oral tablet (3 sources) Loop Diuretic Start: 5 End: take 1 tablet by mouth once daily furosemide (LASIX) 20 mg tablet Take 1 tablet (20 mg total) by mouth daily for 14 days. 14 tablet 03/08/2025 03/22/2025 Active hyoscyamine sulfate 0.12 mg / methenamine 118 mg / methylene blue 10 mg / phenyl salicylate 36 mg / sodium phosphate, monobasic 40.8 mg oral capsule (3 sources) Oxidation-Reduction Agent Start: 2 Uribel oral capsule 1 cap(s), Oral, BID, 60 cap(s), Refill(s) 1, [facility] #[id number], 160, cm, 07/15/22 8:09:00 EDT, Height/Length Dosing, [...] mouth . Take 1 tablet by jeniffer th every 8 hours as needed for pain. indomethacin 50 mg oral capsule (14 sources) Nonsteroidal Anti-inflammatory Drug Start: 023 End: 024 take 1 capsule by mouth twice daily at mealtime indomethacin (INDOCIN) 50 mg capsule take 1 capsule by mouth twice a day with food or milk for 14 days 01/04/2023 Active Comment on above: take 1 capsule by [facility] twice a day with food or milk for 14 days lidocaine 0.05 mg/mg medicated patch (11 sources) Antiarrhythmic, Amide Local Anesthetic Start: 023 End: 024 apply 1 dose transdermal route once daily lidocaine (Lidoderm) 5 % patch Place 1 patch on the skin 1 (one) time each day at the same time. 02/20/2023 Active lisinopril 10 mg oral tablet (20 sources) Angiotensin Converting Enzyme Inhibitor Start: 022 lisinopril 10 mg Tab Refills(s) 0 Start Date: 03/08/23 Status: Ordered Repeat number: 1 Comment on above: Take 10 mg by mouth. meclizine hydrochloride 25 mg oral tablet (11 sources) Antiemetic Start: 022 take 1 tablet by mouth three times [...] day(s), # 60 tab(s), Refills(s) 1, Pharmacy: [facility] #[id number], 160, cm, 05/17/23 12:23:00 EDT, Height/Length Dosing, 107, kg, 05/17/23 12:23:00 EDT, Weight Dosing Start Date: 06/09/23 Stop Date: 08/08/23 Status: Ordered metoprolol tartrate 25 mg oral tablet (20 sources) beta-Adrenergic Coy Start: 03-07-2025 End: 04-22-2025 take 1 tablet by mouth in the morning, then take 1 tablet by mouth at bedtime metoprolol tartrate (LOPRESSOR) 25 mg tablet Take 1 tablet (25 mg total) by mouth in the morning and 1 tablet (25 mg total) before bedtime. Do all this for 30 days. 180 tablet 2 03/23/2025 04/22/2025 Active Start: 01-05-2024 take 1 tablet by jeniffer th once daily Metoprolol Tartrate 50 mg tablet Active 50 MG PO Daily January 05, 2024 1:00am Start: 12-22-2021 take 1 tablet by jeniffer th twice daily Metoprolol tartrate 50 mg Tab 180 EA, take 1 tablet by mouth twice a day, Refills(s) 0 Start Date: 12/22/21 Status: Ordered Repeat number: 1 metoprolol tartr ate (Lopressor) 50 MG tablet every 12 (twelve) hours. Active Comment on above: Take 50 mg by mouth. 24 hr mirabegron 50 mg extended release oral tablet (20 sources) beta3-Adrenergic Agonist Start: 03-26-2025 End: 03-21-2026 take 1 tablet by mouth once daily Myrbetriq 50 mg oral tablet, extended release 50 mg = 1 tab(s), Oral, Daily, X 90 day(s), # 90 tab(s), Refills(s) 3, Pharmacy: [facility] [id number], 160, cm, 03/26/25 9:43:00 EDT, Height/Length Dosing, 98, kg, 03/26/25 9:43:00 EDT, Weight Dosing Start Date: 03/26/25 Stop Date: 03/21/26 Status: Ordered Quantity: 90.0 Unit: tab(s) Repeat number: 4 Indications: Urge incontinence; Start: 12-01-2024 End: 11-26-2025 mirabegron (MYRBETRIQ) 50 mg Tb24 Take 100 mg by mouth. 12/01/2024 11/26/2025 Active Start: 10-16-2024 End: 11-26-2025 take 2 tablets by mouth once daily Myrbetriq 50 mg oral tablet, extended release 100 mg = 2 tab(s), Oral, Daily, X 90 day(s), # 180 tab(s), Refills(s) 3, Pharmacy: [facility] [id number], 160, cm, 10/16/24 12:19:00 EST, Height/Length Dosing, [...] MG PO Daily January 05, 2024 1:00am March 01, 2024 1:07pm Comment on above: Take 50 mg by [...] by mouth in the morning. 06/01/2022 Active oxyCODONE hydrochloride 5 mg oral tablet (2 sources) Opioid Agonist Start: 03-07-2025 End: 03-14-2025 take 1 tablet by mouth every six hours as needed for pain oxyCODONE (ROXICODONE) 5 mg immediate release tablet Indications: S/P CABG x 2 , Chest pain, unspecified type Take 1 tablet (5 mg total) by mouth every 6 (six) hours as needed for pain for up to 7 days. Max Daily Amount: 20 mg 28 tablet 03/07/2025 03/14/2025 Active polyethylene glycol 3350 49034 mg powder for oral solution (3 sources) Osmotic Laxative Start: 03-08-2025 End: 03-22-2025 polyethylene glycol (GLYCOLAX) 17 gram packet Take 17 g by mouth in the morning for 14 days. 14 packet 03/08/2025 03/22/2025 Active sod sulf-pot chloride-mag sulf 1.479-0.188- 0.225 gram tablet (2 sources) Start: 08-23-2024 sod sulf-pot chloride-mag sulf 1.479-0.188- 0.225 gram tablet Indications: Diarrhea, unspecified type Please see instructional sheet given by physicians office. 24 tablet 08/23/2024 Active tamsulosin hydrochloride 0.4 mg oral capsule (20 sources) alpha-Adrenergic Coy Start: 09-04-2022 tamsulosin (FLOMAX) 0.4 mg 1 capsule. 09/04/2022 Active Start: 09-04-2022 take 1 capsule by [facility] twice daily tamsulosin 0.4 mg Cap 0.4 mg = 1 cap(s), Oral, BID, # 180 cap(s), Refills(s) 3, Pharmacy: [facility] [id number], 160, cm, 10/16/24 12:19:00 EST, Height/Length Dosing, 117, kg, 10/16/24 12:19:00 EST, Weight Dosing Start Date: 11/20/24 Status: Ordered Quantity: 180.0 Unit: cap(s) Repeat number: 4 Comment on above: 1 capsule. Completed/Discontinued Medications [...] tablet by mouth twice daily for diarrhea diphenoxylate-atro pine (LOMOTIL) 2.5-0.025 mg per tablet take 1 tablet by mouth twice a day if needed for diarrhea 11/25/2021 01/04/2024 Discontinued (Discontinued by another Health Care Provider) Comment on above: take 1 tablet by jeniffer th twice a day if needed for diarrhea ciprofloxacin 500 mg oral tablet (4 sources) Quinolone Antimicrobial Start: 08-03-2025 take 1 tablet by mouth once daily Cipro 500 mg Tab 500 mg = 1 tab(s), Oral, Daily, Take 1 tablet the day before the procedure and 1 tablet after the procedure, # 2 tab(s), Refills(s) 0, Pharmacy: [facility] [id number], 160, cm, 03/26/25 9:43:00 EDT, Height/Length Dosing, 98, kg, 03/26/25 9:43:00 EDT, Weight Dosing Start Date: 08/03/25 Status: Ordered Quantity: 2.0 Unit: tab(s) Repeat number: 1 Start: 01-15-2025 take 1 tablet by jeniffer th once daily Cipro 500 mg Tab 500 mg = 1 tab(s), Oral, Daily, take one tab day before procedure and one tab after procedure, # 2 tab(s), Refills(s) 0, Pharmacy: [facility] [id number], 160, cm, 01/15/25 11:42:00 EST, Height/Length Dosing, [...] Classification Problem Date Documented Da te Episodic/Chronic Acquired foot deformities (16 sources) Acquired hammer toe of left foot; Translations: [Other hammer toe(s) (acquired), left foot] Onset: 06-22-2022 06-22-2022 Chronic Cancer of prostate (20 sources) Malignant tumor of prostate; Translations: [Malignant neoplasm of prostate] Onset: 05-15-2022 Chronic Cardiac dysrhythmias (1 source) Unspecified atrial fibrillation; Translations: [Unspecified atrial fibrillation] Onset: 03-15-2025 Chronic Coronary atherosclerosis and other heart disease (3 sources) Coronary arteriosclerosis; Translations: [Atherosclerotic heart disease of [place] coronary artery with unstable angina pectoris] Onset: 02-27-2025 03-14-2025 Chronic Disorders of lipid metabolism (20 sources) [...] 12-22-2021 Chronic Genitourinary symptoms and ill-defined conditions (20 [...] and foot] 09-26-2024 Episodic Other gastrointestinal disorders (4 sources) Irritable bowel syndrome; Translations: [Irritable bowel [...] Onset: 12-17-2022 Episodic Other male genital disorders (4 sources) H/O: male genital disorder; Translations: [Personal history of other diseases of male genital organs] Onset: 03-17-2024 Episodic Other male genital disorders (11 sources) History of prostatitis 03-17-2024 Episodic Other nervous system disorders (18 sources) Difficulty walking; Translations: [Difficulty in walking, not elsewhere classified] Onset: 06-22-2022 07-18-2024 Chronic Other nervous system disorders (16 sources) Chronic pain; Translations: [Other chronic pain] Onset: 06-22-2022 06-22-2022 Chronic Other non-traumatic joint disorders (2 sources) Arthritis of left ankle 10-12-2024 Chronic Other non-traumatic joint disorders (8 sources) Chronic ankle pain; Translations: [Pain in left ankle and joints of left foot] 09-26-2024 Episodic Other nutritional; endocrine; and metabolic disorders (16 sources) Body mass index 40+ - severely obese; Translations: [Body mass index (BMI) 40.0-44.9, adult] Onset: 08-30-2019 08-30-2019 Chronic Other screening for suspected conditions (not mental disorders or infectious disease) (13 sources) Elevated prostate specific antigen [PSA]; Translations: [Raised prostate specific antigen] Onset: 12-17-2022 Episodic Peripheral and visceral atherosclerosis (20 sources) Peripheral vascular disease; Translations: [Peripheral vascular disease, unspecified] Onset: 06-22-2022 06-22-2022 Chronic Substance-related disorders (17 sources) Nicotine dependence, cigarettes, uncomplicated; Translations: [Smokes tobacco daily] Onset: 06-22-2022 06-22-2022 Chronic Unclassified (14 sources) Finding of sensation of bladder 05-17-2023 Unclassified (1 source) Urinary Catheter Insertion or Check Onset: 02-23-2025 Past or Other Problems Problem Classification Problem Date Documented Da te Episodic/Chronic Abdominal pain (7 sources) Abdominal pain; Translations: [Unspecified abdominal pain] Onset: 01-02-2025 03-01-2024 Episodic Cancer of prostate (3 sources) History of malignant neoplasm of prostate; Translations: [Personal history of malignant neoplasm of prostate] Onset: 08-23-2024 01-04-2024 Episodic Complication of device; implant or graft (1 source) Breakdown (mechanical) of other urinary catheter, initial encounter; Translations: [Breakdown (mechanical) of other urinary catheter, initial encounter] Onset: 02-23-2025 Episodic Complications of surgical procedures or medical care (4 sources) Atrial fibrillation; Translations: [Other postprocedural complications and disorders of the circulatory system, not elsewhere classified] Onset: 03-15-2025 03-15-2025 Episodic Conditions associated with dizziness or vertigo (20 sources) Vertigo; Translations: [Dizziness and giddiness] Onset: 06-21-2022 06-22-2022 Episodic Coronary atherosclerosis and other heart disease (2 sources) Presence of aortocoronary bypass graft; Translations: [Presence of aortocoronary bypass graft] Onset: 02-27-2025 Episodic Gastrointestinal hemorrhage (1 source) Rectal hemorrhage Onset: 01-05-2025 Episodic Mood disorders (12 sources) Mood disorders Onset: 02-28-2025 02-28-2025 Nonspecific chest pain (20 sources) Chest pain; Translations: [Chest pain, unspecified] Onset: 02-24-2025 02-24-2025 Episodic Other and unspecified benign neoplasm (1 source) Polyp of colon; Translations: [Polyp of colon] Onset: 09-11-2024 Episodic Other gastrointestinal disorders (7 sources) Diarrhea; Translations: [Diarrhea, unspecified] Onset: 08-23-2024 03-01-2024 Episodic Other gastrointestinal disorders (4 sources) Diarrhea, unspecified; Translations: [Diarrhea] Onset: 08-23-2024 03-01-2024 Episodic Other gastrointestinal disorders (1 source) Urgent desire for stool; Translations: [Fecal urgency] 08-23-2024 Episodic Other gastrointestinal disorders (1 source) Fecal urgency; Translations: [Fecal urgency] Onset: 08-23-2024 Episodic Screening and history of mental health and substance abuse codes (14 sources) Tobacco use and exposure - finding; Translations: [Personal history of nicotine dependence] Onset: 08-28-2024 01-06-2025 Episodic Results Test Name Value Interpretation Reference Range Facil ity Ambulatory Visit Summaryon 0 08-13-2025 Ambulatory Visit Summary Ambulatory Visit Summary MEREDITH VILLATORO :1960 Visit Date:08/13/2025 Ambulatory Visit Instructions Your Diagnosis Prostate cancer BPH with obstruction/lower urinary tract symptoms Urge incontinence Feeling of incomplete bladder emptying History of prostatitis Your Care Team Attending Physician - PETRA OVIEDO, Leila Simpson Primary Care Physician - NONE, XXXX This Is Your Medications List bicalutamide (Casodex 50 mg Tab) mirabegron (Myrbetriq 50 mg oral tablet, extended release) tamsulosin (tamsulosin 0.4 mg Cap) Contact prescribing physician if questions or concerns aspirin (Aspirin Low Dose) atorvastatin (atorvastatin 10 mg Tab) ciprofloxacin (Cipro 500 mg Tab) lisinopril (lisinopril 10 mg Tab) metoprolol (Metoprolol tartrate 50 mg Tab) Procedures Performed TURP - Transurethral resection of prostate (02/22/2025), Cystoscopy (02/06/2025), Implantation of radioactive seed into prostate (05/21/2022), MRI-US fusion guided transrectal biopsy of prostate (02/05/2022), MRI of prostate (01/08/2022), CABG x 2 - Coronary artery bypass grafts x 2, Colonoscopy, History of coronary artery bypass grafting. Discharge Vitals Temperature (Tympanic) 36.7 ???C Heart Rate (Peripheral) 74 Respiratory Rate 16 Blood Pressure 128/70 Height 165 cm Height 65 in Weight 110 kg Weight 242.508 lb BMI 40.4 What to do next Scheduled Follow-Up Appointments 2024 10:00 AM EDT With: Where: [facility] [address] [address]- Wednesday 10:45 AM EDT With: Leila LAMBERT MD Where: [facility] [address] [place] [place] [address]- You Need to Schedule the Following Appointments Follow Up with Leila LAMBERT MD, URL When: Comments: f/u already scheduled 09/17/25 w/ PSADony Where: [address] [place] [address] Medications What How Much When Why Instructions Unchanged bicalutamide (Casodex 50 mg Tab) 1 Tablets By Mouth Every 24 hours Prostate cancer Rising PSA following treatment for malignant neoplasm of prostate Duration: 90 Days Unchanged mirabegron (Myrbetriq 50 mg oral tablet, extended release) 1 Tablets By Mouth Every day Urge incontinence Duration: 90 Days Unchanged tamsulosin (tamsulosin 0.4 mg Cap) 1 Capsules By Mouth 2 times a day Unchanged aspirin (Aspirin Low Dose) Every day Contact prescribing physician if questions or concerns Unchanged atorvastatin (atorvastatin 10 mg Tab) Contact prescribing physician if questions or concerns Unchanged ciprofloxacin (Cipro 500 mg Tab) 1 Tablets By Mouth Every day Take 1 tablet the day before the procedure and 1 tablet after the procedure Contact prescribing physician if questions or concerns Unchanged lisinopril (lisinopril 10 mg Tab) Contact prescribing physician if questions or concerns Unchanged metoprolol (Metoprolol tartrate 50 mg Tab) 180 EA, take 1 tablet by mouth twice a day Contact prescribing physician if questions or concerns Medications and Immunizations Administered Given lidocaine Top 2% Gel w/Appl 6 mL, 6 mL, Topical. For: Prostate cancer Allergies No Known Medication Allergies Problems Ongoing - Any problem that you are currently receiving treatment for. Arthritis Bilateral hydrocele BPH with obstruction/lower urinary tract symptoms Dysuria Epididymitis Feeling of incomplete bladder emptying Gross hematuria High cholesterol History of prostatitis Hypertension Morbid obesity with BMI of 40.0-44.9, adult Nocturia Prostate cancer Prostate nodule Prostatitis Rising [...] understood and are likely due to a comb (more content not included)... Normal [facility] Urology Office/Clinic Noteon 08-13-2025 Urology Office/Clinic Note Urology Office/Clinic Note Chief Complaint Pt here for cysto HPI Staff Pt is a 65 year old male here for cysto Pt denies pain/burning denies visible blood denies flank pain History of Present Illness Tests reviewed: reviewed PET I have reviewed the previous health record [...] HPI. Physical Exam Vitals & Measurements T: 36.7 ???C(Tympanic) HR: 74(Peripheral) RR: 16 BP: 128/70 HT: 65 in HT: 165 cm WT: 110 kg WT: 242.508 lb BMI: 40.4 General Appearance: alert, no distress, well nourished, well developed male. Procedure Operative Information Anesthesia Type: Local Procedure: Local Cystoscopy Complications: None Surgical risks, benefits, details of the procedure have been explained to the patient. Full informed consent has been obtained. Intraoperative Information Prepped: Patient is brought back to the endoscopy suite. Patient is placed in supine position. Patient prepped in the usual fashion with Betadine solution. 2% Xylocaine Jelly is placed per Urethra. After waiting several minutes, the Cystoscope is introduced. The Urethra is: Normal The Prostatic Urethra is: _Open, no masses The Bladder: No tumors or stones, Trabeculated: Moderate (2) The Ureteral orifices: Show efflux of clear urine Specimens Removed: None Removal: Cystoscope is removed. The patient tolerated it well. Postoperative Information Patient is discharged home with antibiotic coverage. Follow up arranged. Assessment/Plan 1. Prostate cancer (C61: Malignant neoplasm of prostate) PSA: 01/16/22 - 2.0 02/16/23 - 0.24 09/06/23- <0.1 03/17/24 - 0.2 10/03/24 - 0.6 01/10/25 - 0.5 MRI prostate w/wo [place] [facility] [place] 4 and 5. MRI fusion [...] PE 09/13/23: Lt breast tender upon exam. [1] S/p Cysto, TUR of prostate mass ~4 cm 02/22/25. Path shows [place] 9 (4+5), cribriform, ductal (papillary), and sheets (small submucosal nodular sheet) pattern. Incidental lymph invasion in 1 small congested vessel also noticed wo perineural invasion. No significant change of prostatic urethral mucosa. [2] Eligard given 03/26/25. PSMA PET scan 04/11/25 [facility] - Neg. -F/u already scheduled on 09/17/25 w/ PSA, Eligard 2. 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 It is at least 2 to 3 cm in size. S/p Cysto, TUR of prostate mass ~4 cm 02/22/25. Catheter removed at [facility], s/p CABG 03/02/25. [3] IPSS not completed (15). Taking Flomax 0.4mg bid. Decreased Myrbetriq ER from 100mg to 50mg qd at prior OV due to feeling of NIMO. Pt had IO cysto wo complications today. No prostate mass was found. -Cont Flomax 0.4 mg bid and Myrbetriq 50 mg qd. Call for refills. 3. Urge incontinence (N39.41: Urge incontinence) See #2. 4. Feeling of incomplete bladder emptying (R39.14: Feeling of incomplete bladder emptying) See #2. 5. History of prostatitis (Z87.438: Personal history of other diseases of male genital organs) Has been tx'd with Doxycycline and Methenamine in the past. [4] Follow-up With When Contact Information PETRA OVIEDO, Leila Simpson, URL [address] [place] [address] [place] [address] Additional Instructions: f/u already scheduled 09/17/25 w/ Dony SOTOMAYOR Patient Education Prostate Cancer I, Molly Murray, personally scribed for Dr. Lambert on 08/13/2025 08:44:08. . Documentation recorded by the mickyibMolly mckeon, accurately reflects the services(s) I performed and decisions made by me. Authenticated by Dr. Lambert on 08/13/2025 08:50:59. Problem List/Past Medical History Ongoing Arthritis Bilateral hydrocele BPH with obstruction/lo (more content not included)... Normal [facility] Comment on above: Result Comment: Elec tronically Signed By: Leila LAMBERT MD\.br\Date and Time Signed: 08/13/25 08:51 EDT\.br\Electronically Co-Signed By: Molly Murray\.br\Date and Time Co-Signed: 08/13/25 08:44 EDT APTTon 06-14-2025 aPTT Coag (Bld) [Time] 28 s Normal 26-37 [facility] Comment on above: Performed By: #### 3 3-1 #### [facility] ([id number]) [address] [place] [address]336 B-TYPE NATRIURETIC PEPTIDEon 06-14-2025 Natriuretic peptide B (Bld) [Mass/Vol] 140 pg/mL High <=100 [facility] Comment on above: Performed By: #### 3 3-1 #### [facility] ([id number]) [address] [place] [address] 52201 CBC WITH AUTO DIFFERENTIALon 06-14-2025 BASOPHILS ABSOLUTE COUNT (10*3/UL) BY AUTOMATED COUNT 0.0 10*3/uL Normal 0.0-0.2 [facility] Comment on above: Performed By: #### C EDU CMP, 0-3, 15657-9 #### [facility] ([id number]) [address] [place] [address] 31412 BASOPHILS RELATIVE PERCENT BY AUTOMATED COUNT 0.9 % Normal [facility] Comment on above: Performed By: #### C BCA, CMP, 0-3, 45273-0 #### [facility] ([id number]) [address] [place] [address] 53545 CELLAVISION DIFFERENTIAL TYPE AUTOMATED DIFFERENTIAL Normal [facility] Comment on above: Performed By: #### C BCA, CMP, 0-3, 37448-4 #### [facility] ([id number]) [address] [place] [address] 98490 Eosinophils (Bld) [#/Vol] 0.1 10*3/uL Normal 0.0-0.4 [facility] Comment on above: Performed By: #### C JUSTIN SORENSEN, 3040-01, #### [facility] ([id number]) [address] [place] [address] 89927 EOSINOPHILS RELATIVE PERCENT BY AUTOMATED COUNT 2.5 % Normal [facility] Comment on above: Performed By: #### C JUSTIN SORENSEN, 3040-01, #### [facility] ([id number]) [address] [place] [address] 15374 Erythrocyte distribution width (RBC) [Ratio] 14.5 % Normal 11.5-15 [facility] Comment on above: Performed By: #### C JUSTIN SORENSEN, 3040-01, #### [facility] ([id number]) [address] [place] [address] 96214 Hematocrit (Bld) [Volume fraction] 40.7 % Normal 39-50 [facility] Comment on above: Performed By: #### C JUSTIN SORENSEN, 3040-01, #### [facility] ([id number]) [address] [place] [address] 47105 Hemoglobin (Bld) [Mass/Vol] 13.9 g/dL Normal 13-17 [facility] Comment on above: Performed By: #### C JUSTIN SORENSEN, 3040-01, #### [facility] ([id number]) [address] [place] [address] 91396 LYMPHOCYTES ABSOLUTE COUNT (10*3/UL) BY AUTOMATED COUNT 0.8 10*3/uL Low 1.0-3.5 [facility] Comment on above: Performed By: #### C EDU CMP, 3040-01, #### [facility] ([id number]) [address] [place] [address] 16411 LYMPHOCYTES RELATIVE PERCENT BY AUTOMATED COUNT 17.4 % Normal [facility] Comment on above: Performed By: #### C EDU CMP, 3040-01, #### [facility] ([id number]) [address] [place] [address] 73181 MCH (RBC) [Entitic mass] 29.4 pg Normal 27-34 [facility] Comment on above: Performed By: #### C EDU CMP, 3040-01, #### [facility] ([id number]) [address] [place] [address] 94354 MCHC (RBC) [Mass/Vol] 34.0 g/dL Normal 32-36 [facility] Comment on above: Performed By: #### Bereket SORENSEN CMP, 3040-01, #### [facility] ([id number]) [address] [place] [address] 07125 MCV (RBC) [Entitic vol] 86 fL Normal 80-100 [facility] Comment on above: Performed By: #### Bereket SORENSEN CMP, 3040-01, #### [facility] ([id number]) [address] [place] [address] 20667 MONOCYTES ABSOLUTE COUNT (10*3/UL) BY AUTOMATED COUNT 0.4 10*3/uL Normal 0.0-0.9 [facility] Comment on above: Performed By: #### C EDU, CMP, 3040-01, #### [facility] ([id number]) [address] [place] [address] 33813 MONOCYTES RELATIVE PERCENT BY AUTOMATED COUNT 9.3 % Normal [facility] Comment on above: Performed By: #### C EDU, CMP, 3040-01, #### [facility] ([id number]) [address] [place] [address] 73276 NEUTROPHILS ABSOLUTE COUNT BY AUTOMATED COUNT 3.1 10*3/uL Normal 1.5-6.6 [facility] Comment on above: Performed By: #### Bereket SORENSEN CMP, 3, 56119-9 #### [facility] ([id number]) [address] [place] [address] 53912 NEUTROPHILS RELATIVE PERCENT BY AUTOMATED COUNT 69.9 % Normal [facility] Comment on above: Performed By: #### Bereket SORENSEN CMP, 3040-01, #### [facility] ([id number]) [address] [place] [address] 59188 Platelet mean volume (Bld) [Entitic vol] 8.1 fL Normal 7-12 [facility] Comment on above: Performed By: #### Bereket SORENSEN CMP, 3040-01, #### [facility] ([id number]) [address] [place] [address] 31190 Platelets (Bld) [#/Vol] 169 10*3/uL Normal 150-450 [facility] Comment on above: Performed By: #### Bereket SORENSEN CMP, 3040-01, 71716-4 #### [facility] ([id number]) [address] [place] [address] 23380 RBC COUNT 4.72 X10E12/L Normal 4.1-5.7 [facility] Comment on above: Performed By: #### Bereket SORENSEN CMP, 3040-01, 38258-1 #### [facility] ([id number]) [address] [place] [address] 20706 WBC (Bld) [#/Vol] 4.4 10*3/uL Normal 4-11 [facility] Comment on above: Performed By: #### Bereket SORENSEN CMP, 3040-01, #### [facility] ([id number]) [address] [place] [address] 61422 COMPREHENSIVE METABOLIC PANE [place] 07-17-2025 Albumin [Mass/Vol] 4.4 g/dL Normal 3.2-5.3 [facility] Comment on above: Performed By: #### 3 2132-1 #### [facility] ([id number]) [address] [place] [address] 64931 ALP [Catalytic activity/Vol] 68 U/L Normal 39-130 [facility] Comment on above: Performed By: #### 3 2132-1 #### [facility] ([id number]) [address] [place] [address] 18547 ALT [Catalytic activity/Vol] 14 U/L Normal <=40 [facility] Comment on above: Performed By: #### 3 2132-1 #### [facility] ([id number]) [address] [place] [address] [place] [address] Anion gap [Moles/Vol] 9 mmol/L Normal 5-15 [facility] Comment on above: Performed By: #### 3 2132-1 #### [facility] ([id number]) [address] [place] [address] 56593 AST [Catalytic activity/Vol] 14 U/L Normal <=41 [facility] Comment on above: Performed By: #### 3 2132-1 #### [facility] ([id number]) [address] [place] [address] [place] [address] Bilirubin [Mass/Vol] 1.1 mg/dL Normal 0.3-1.2 [facility] Comment on above: Performed By: #### 3 2132-1 #### [facility] ([id number]) [address] [place] [address] 69361 Calcium [Mass/Vol] 9.7 mg/dL Normal 8.5-10.5 [facility] Comment on above: Performed By: #### 3 2132-1 #### [facility] ([id number]) [address] [place] [address] 72129 Chloride [Moles/Vol] 108 mmol/L Normal 98-109 [facility] Comment on above: Performed By: #### 3 2133-1 #### [facility] ([id number]) [address] [place] [address] 82100 CO2 [Moles/Vol] 24 mmol/L Normal 22-32 [facility] Comment on above: Performed By: #### 3 2132-1 #### [facility] ([id number]) [address] [place] [address] 07569 Creatinine [Mass/Vol] 1.38 mg/dL High 0.70-1.20 [facility] Comment on above: Result Comment: METH OD TRACEABLE TO IDMS STANDARD Performed By: #### 3 213-1 #### [facility] ([id number]) [address] [place] [address] 43774 GFR/1.73 sq M.predicted among non-blacks MDRD (S/P/Bld) [Vol rate/Area] 56 mL/min/{1.73_m2} Low >=60 [facility] Comment on above: Result Comment: eGFR not reported due to non-numeric value for Creatinine. Reported eGFR is based on the CKD-EPI 2020 equation that does not use a race coefficient. Performed By: #### 3 3-1 #### [facility] ([id number]) [address] [place] [address] 12582 Glucose [Mass/Vol] 99 mg/dL Normal 65-99 [facility] Comment on above: Performed By: #### 3 2133-1 #### [facility] ([id number]) [address] [place] [address] 69686 Potassium [Moles/Vol] 4.1 mmol/L Normal 3.5-5.0 [facility] Comment on above: Performed By: #### 3 2132-1 #### [facility] ([id number]) [address] [place] [address] 97816 Protein [Mass/Vol] 7.0 g/dL Normal 6.0-8.0 [facility] Comment on above: Performed By: #### 3 2132-1 #### [facility] ([id number]) [address] [place] [address] 25652 Sodium [Moles/Vol] 141 mmol/L Normal 134-146 [facility] Comment on above: Performed By: #### 3 2132-1 #### [facility] ([id number]) [address] [place] [address] 83482 Urea nitrogen [Mass/Vol] 27 mg/dL Normal 5-27 [facility] Comment on above: Performed By: #### 3 2132-1 #### [facility] ([id number]) [address] [place] [address] 86379 LIPASEon 06-14-2025 Lipase [Catalytic activity/Vol] 33 U/L Normal 17-40 [facility] Comment on above: Performed By: #### 3 2132-1 #### [facility] ([id number]) [address] [place] [address] 57739 PROTIME AND INRon 06-14-2025 INR 1.0 Normal 0.9-1.2 [facility] Comment on above: Performed By: #### C BCA, CMP, 0-3, 90434-9 #### [facility] ([id number]) [address] [place] [address] 33511 PT Coag (PPP) [Time] 11.4 s Normal 9.8-13.2 [facility] Comment on above: Performed By: #### C BCA, CMP, 0-3, 47488-5 #### [facility] ([id number]) [address] [place] [address] 17863 TROP I, HIGH SENSITIVITY 1 H OURon 06-14-2025 TROPONIN I, HIGH SENSITIVITY 4 ng/L Normal <21 [facility] Comment on above: Performed By: #### 3 2133-1 #### [facility] ([id number]) [address] [place] [address] TROPONIN I, HIGH SENSITIVITY 0 HOURon 06-14-2025 TROPONIN I, HIGH SENSITIVITY 4 ng/L Normal <21 [facility] Comment on above: Performed By: #### 3 2133-1 #### [facility] ([id number]) [address] [place] [address] XR CHEST 2 VWSon 06-14-2025 XR CHEST 2 VWS XR CHEST 2 VWS XR CHEST 2 VWS 06/14/2025 6:34 PM INDICATION: recent CABG and then mowed the lawn and is now having CP and SOB COMPARISON: 04/10/2025 TECHNIQUE: PA and lateral views of the chest were obtained FINDINGS: The lungs are clear. There is no pneumothorax. There is no pleural effusion. The cardiomediastinal silhouette is unremarkable. No acute osseous abnormalities. Median sternotomy wires. IMPRESSION: No acute cardiopulmonary process. Finalized by Tracy Castellon on 06/14/2025 6:36 PM Normal [facility] NM PET/CT PROSTATE WBon 03-29 NM PET/CT PROSTATE WB * * *Final Report* * * DATE OF EXAM: Apr 11 2025 2:58PM NRN 0093 - UT PET/CT PROSTATE WB / PROCEDURE REASON: prostate cancer * * * * Physician Interpretation * * * * RESULT: EXAMINATION: PROSTATE-SPECIFIC MEMBRANE ANTIGEN PET-CT CLINICAL HISTORY: Prostate cancer. TECHNIQUE: Radiopharmaceutical was administered intravenously followed later on by PET imaging from the skull vertex to thighs. Free breathing, low dose CT of the same body region was acquired without IV contrast for attenuation correction and anatomic localization. Unenhanced imaging is limited for the evaluation of some pathology and the acquired CT was not designed to produce diagnostic CT scan quality. Physiologic/non-patho logic uptake in some body regions could confound or obscure some pathology. * CT Dose-Length Product (DLP): 367 mGy*cm * CT Dose Reduction Employed: Yes * Injection site: Right Forearm-Antecubital * Injected activity: 9.6 mCi * Uptake Time: 54 minutes * Radiopharmaceutical: F-18 PSMA (Posluma) COMPARISON: No previous PSMA PET/CT available RESULT: REFERENCES: Uptake by the injected radiopharmaceutical serves as a surrogate marker for prostate-specific membrane antigen (PSMA) expression. All reported standardized uptake values represent maximum SUV (SUVmax) per body weight, unless otherwise specified. SUV Reference Values: * Background Salivary Gland: SUVmax 19 * Blood Pool (Descending Aorta): SUVmax 2 * Background Liver: SUVmax 9.3 Localizer Images: No additional findings. HEAD AND NECK: Head: No radiotracer avid lesion or mass effect in the intracranial compartment. Aerodigestive Tract: No radiotracer avid lesion. Lymph Nodes: No radiotracer avid lymphadenopathy. Neck Soft Tissues: No radiotracer avid thyroid nodule. CHEST: Lungs and Pleura: No radiotracer avid mass, nodule, or consolidation. No pleural effusion. Left lower lobe pulmonary nodules measuring 1.0 and 0.8 cm with no tracer uptake. Lymph Nodes: No radiotracer avid lymphadenopathy. Mediastinum: No radiotracer avid mass. Cardiovascular: Blood pool activity. No pericardial effusion. Chest Wall: Median sternotomy with reactive tracer uptake ABDOMEN AND PELVIS: Hepatobiliary: No radiotracer avid lesion. No measurable mass. Spleen: No radiotracer avid lesion. No splenomegaly. Pancreas: No radiotracer avid lesion. Adrenals: No radiotracer avid nodule. Urinary Tract: Physiologic radiotracer excretion in the urinary tract. No hydronephrosis. Right renal cyst. GI Tract: No radiotracer avid lesion. No bowel dilation. Peritoneum: No radiotracer avid lesion. No ascites. Lymph Nodes: * Abdomen (including common iliac): No radiotracer avid lymphadenopathy. * Pelvis (below common iliac): No radiotracer avid lymphadenopathy. Vasculature: Blood pool activity. Prostate and Seminal Vesicles: No radiotracer avid lesion. Brachytherapy seeds in the prostate. Pelvis Soft Tissues: No radiotracer avid lesion. MUSCULOSKELETAL: Bones: No radiotracer avid lesion. Soft Tissues: No radiotracer avid lesion. IMPRESSION: PROSTATE: * Brachytherapy seeds in the prostate without PSMA expressing recurrence. KIMI DISEASE: * No PSMA expressing pelvic lymphadenopathy. METASTATIC DISEASE: * No PSMA expressing distant metastases. ADDITIONAL FINDINGS: * Left lower lobe pulmonary nodules with no tracer uptake. Transcribe Date/Time: Apr 12 2025 10:45A Dictated by: ANTONIO MCMULLEN MD This examination was interpreted and the report reviewed and electronically signed by: ANTONIO MCMULLEN MD on Apr 12 2025 11:52AM EST Thank you for allowing us to participate in the care of your patient. Should there be any questions regarding this interpretation, please call [phone]. If you are unable to reach us at the number above, please feel free to contact [facility] at [phone]. [id number] Normal [facility] B-TYPE NATRIURETIC PEPTIDEon 04-10-2025 Natriuretic peptide B (Bld) [Mass/Vol] 110 pg/mL High <=100 [facility] Comment on above: Performed By: #### C BCA CMP, 3040-01, 76408-8 #### [facility] ([id number]) [address] [place] [address] 26965 CBC WITH AUTO DIFFERENTIALon 04-10-2025 BASOPHILS ABSOLUTE COUNT (10*3/UL) BY AUTOMATED COUNT 0.0 10*3/uL Normal 0.0-0.2 [facility] Comment on above: Performed By: #### C BCA CMP, 3040-01, 43176-3 #### [facility] ([id number]) [address] [place] [address] 44036 BASOPHILS RELATIVE PERCENT BY AUTOMATED COUNT 1.0 % Normal [facility] Comment on above: Performed By: #### C BCA, CMP, 3040-01, 81633-3 #### [facility] ([id number]) [address] [place] [address] 80104 CELLAVISION DIFFERENTIAL TYPE AUTOMATED DIFFERENTIAL Normal [facility] Comment on above: Performed By: #### C BCA, CMP, 3040-01, 47119-2 #### [facility] ([id number]) [address] [place] [address] 33814 Eosinophils (Bld) [#/Vol] 0.2 10*3/uL Normal 0.0-0.4 [facility] Comment on above: Performed By: #### C JUSTIN SORENSEN, 3, #### [facility] ([id number]) [address] [place] [address] 80288 EOSINOPHILS RELATIVE PERCENT BY AUTOMATED COUNT 6.2 % Normal [facility] Comment on above: Performed By: #### C JUSTIN SORENSEN, 3040-01, #### [facility] ([id number]) [address] [place] [address] 50898 Erythrocyte distribution width (RBC) [Ratio] 14.0 % Normal 11.5-15 [facility] Comment on above: Performed By: #### Bereket SORENSEN CMP, 3040-01, #### [facility] ([id number]) [address] [place] [address] 28362 Hematocrit (Bld) [Volume fraction] 40.0 % Normal 39-50 [facility] Comment on above: Performed By: #### Bereket SORENSEN CMP, 3040-01, #### [facility] ([id number]) [address] [place] [address] 18380 Hemoglobin (Bld) [Mass/Vol] 13.6 g/dL Normal 13-17 [facility] Comment on above: Performed By: #### C EDU CMP, 3040-01, #### [facility] ([id number]) [address] [place] [address] 13020 LYMPHOCYTES ABSOLUTE COUNT (10*3/UL) BY AUTOMATED COUNT 0.7 10*3/uL Low 1.0-3.5 [facility] Comment on above: Performed By: #### C BCA, CMP, 3040-01, #### [facility] ([id number]) [address] [place] [address] 51568 LYMPHOCYTES RELATIVE PERCENT BY AUTOMATED COUNT 17.8 % Normal [facility] Comment on above: Performed By: #### C EDU, CMP, 3040-01, #### [facility] ([id number]) [address] [place] [address] 65412 MCH (RBC) [Entitic mass] 30.1 pg Normal 27-34 [facility] Comment on above: Performed By: #### C EDU CMP, 3040-01, #### [facility] ([id number]) [address] [place] [address] 04466 MCHC (RBC) [Mass/Vol] 34.0 g/dL Normal 32-36 [facility] Comment on above: Performed By: #### C EDU, CMP, 3040-01, #### [facility] ([id number]) [address] [place] [address] 53841 MCV (RBC) [Entitic vol] 89 fL Normal 80-100 [facility] Comment on above: Performed By: #### Bereket SORENSEN CMP, 3040-01, #### [facility] ([id number]) [address] [place] [address] 38919 MONOCYTES ABSOLUTE COUNT (10*3/UL) BY AUTOMATED COUNT 0.4 10*3/uL Normal 0.0-0.9 [facility] Comment on above: Performed By: #### C EDU, CMP, 3040-01, #### [facility] ([id number]) [address] [place] [address] 58394 MONOCYTES RELATIVE PERCENT BY AUTOMATED COUNT 10.2 % Normal [facility] Comment on above: Performed By: #### C BCA, CMP, 3040-01, #### [facility] ([id number]) [address] [place] [address] 26555 NEUTROPHILS ABSOLUTE COUNT BY AUTOMATED COUNT 2.6 10*3/uL Normal 1.5-6.6 [facility] Comment on above: Performed By: #### Bereket SORENSEN, CMP, 3, #### [facility] ([id number]) [address] [place] [address] 68813 NEUTROPHILS RELATIVE PERCENT BY AUTOMATED COUNT 64.8 % Normal [facility] Comment on above: Performed By: #### Bereket SORENSEN, CMP, 3040-01, #### [facility] ([id number]) [address] [place] [address] 46971 Platelet mean volume (Bld) [Entitic vol] 7.9 fL Normal 7-12 [facility] Comment on above: Performed By: #### Bereket SORENSEN, CMP, 3040-01, #### [facility] ([id number]) [address] [place] [address] 76506 Platelets (Bld) [#/Vol] 194 10*3/uL Normal 150-450 [facility] Comment on above: Performed By: #### Bereket SORENSEN, CMP, 3040-01, #### [facility] ([id number]) [address] [place] [address] 80149 RBC COUNT 4.50 X10E12/L Normal 4.1-5.7 [facility] Comment on above: Performed By: #### Bereket BCA, CMP, 3040-01, #### [facility] ([id number]) [address] [place] [address] 51771 WBC (Bld) [#/Vol] 4.0 10*3/uL Normal 4-11 [facility] Comment on above: Performed By: #### Bereket BCA, CMP, 3040-01, #### [facility] ([id number]) [address] [place] [address] 98375 COMPREHENSIVE METABOLIC PANE Jay Jay 04-10-2025 Albumin [Mass/Vol] 4.1 g/dL Normal 3.2-5.3 [facility] Comment on above: Performed By: #### C BCA, CMP, 3040-01, #### [facility] ([id number]) [address] [place] [address] 81189 ALP [Catalytic activity/Vol] 90 U/L Normal 39-130 [facility] Comment on above: Performed By: #### C BCA, CMP, 3040-01, #### [facility] ([id number]) [address] [place] [address] 06602 ALT [Catalytic activity/Vol] 19 U/L Normal <=40 [facility] Comment on above: Performed By: #### C BCA, CMP, 3040-01, #### [facility] ([id number]) [address] [place] [address] 50806 Anion gap [Moles/Vol] 4 mmol/L Low 5-15 [facility] Comment on above: Performed By: #### C BCA, CMP, 3040-01, #### [facility] ([id number]) [address] [place] [address] 53032 AST [Catalytic activity/Vol] 19 U/L Normal <=41 [facility] Comment on above: Performed By: #### C BCA, CMP, 3040-01, #### [facility] ([id number]) [address] [place] [address] 09218 Bilirubin [Mass/Vol] 0.8 mg/dL Normal 0.3-1.2 [facility] Comment on above: Performed By: #### C BCA, CMP, 3040-01, 96190-6 #### [facility] ([id number]) [address] [place] [address] 57199 Calcium [Mass/Vol] 8.9 mg/dL Normal 8.5-10.5 [facility] Comment on above: Performed By: #### C BCA, CMP, 3040-01, 88489-6 #### [facility] ([id number]) [address] [place] [address] 51608 Chloride [Moles/Vol] 108 mmol/L Normal 98-109 [facility] Comment on above: Performed By: #### C EDU CMP, 3040-01, #### [facility] ([id number]) [address] [place] [address] 11623 CO2 [Moles/Vol] 24 mmol/L Normal 22-32 [facility] Comment on above: Performed By: #### C BCA, CMP, 3040-01, 34058-8 #### [facility] ([id number]) [address] [place] [address] 47258 Creatinine [Mass/Vol] 1.06 mg/dL Normal 0.70-1.20 [facility] Comment on above: Result Comment: METH OD TRACEABLE TO IDMS STANDARD Performed By: #### C BCA CMP, 3040-01, 85937-7 #### [facility] ([id number]) [address] [place] [address] 42141 GFR/1.73 sq M.predicted among non-blacks MDRD (S/P/Bld) [Vol rate/Area] 78 mL/min/{1.73_m2} Normal >=60 [facility] Comment on above: Result Comment: eGFR not reported due to non-numeric value for Creatinine. Reported eGFR is based on the CKD-EPI 2020 equation that does not use a race coefficient. Performed By: #### C BCA, CMP, 3040-01, 29156-0 #### [facility] ([id number]) [address] [place] [address] 18462 Glucose [Mass/Vol] 115 mg/dL High 65-99 [facility] Comment on above: Performed By: #### C EDU, CMP, 3040-01, 98193-8 #### [facility] ([id number]) [address] [place] [address] 29912 Potassium [Moles/Vol] 3.8 mmol/L Normal 3.5-5.0 [facility] Comment on above: Performed By: #### C EDU, CMP, 3040-01, #### [facility] ([id number]) [address] [place] [address] 71196 Protein [Mass/Vol] 6.9 g/dL Normal 6.0-8.0 [facility] Comment on above: Performed By: #### C BCA, CMP, 3040-01, #### [facility] ([id number]) [address] [place] [address] 50942 Sodium [Moles/Vol] 136 mmol/L Normal 134-146 [facility] Comment on above: Performed By: #### C BCA, CMP, 3040-01, #### [facility] ([id number]) [address] [place] [address] 20886 Urea nitrogen [Mass/Vol] 17 mg/dL Normal 5-27 [facility] Comment on above: Performed By: #### C BCA, CMP, 3040-01, #### [facility] ([id number]) [address] [place] [address] 64156 MAGNESIUMon 04-10-2025 Magnesium [Mass/Vol] 2.0 mg/dL Normal 1.8-2.6 [facility] Comment on above: Performed By: #### C BCA, CMP, 3040-01, #### [facility] ([id number]) [address] [facility], [place] [address] TROP I, HIGH SENSITIVITY 1 H OURon 04-10-2025 TROPONIN I, HIGH SENSITIVITY 4 ng/L Normal <21 [facility] Comment on above: Performed By: #### C BCA, CMP, 3040-3, 40583-0 #### [facility] ([id number]) [address] [place] [address], [place] [address] TROPONIN I, HIGH SENSITIVITY 0 HOURon 04-10-2025 TROPONIN I, HIGH SENSITIVITY 4 ng/L Normal <21 [facility] Comment on above: Performed By: #### C BCA, CMP, 3040-3, 38401-6 #### [facility] ([id number]) [address] [facility], [place] [address] XR CHEST 1 VWon 04-10-2025 XR CHEST 1 VW XR CHEST 1 VW Single view chest History: Chest pain Comparison: X-ray 03/04/2025 Findings: Single portable view of the chest. Cardiomediastinal silhouette and pulmonary vasculature are within normal limits. Lungs and pleural space are clear. There is no pleural effusion or pneumothorax. Median sternotomy wires are intact. Impression: No acute cardiopulmonary process. Finalized by Chris Oliva on 04/10/2025 12:31 PM Normal [facility] 04-02-2025 CNPN Telephone (KADYAP) MEREDITH VILLATORO ([id number]) 1960 M Date Time Provider Department 04/02/25 Jhony LUX During your visit today, we recorded the following information about you: Akiko White 04/02/2025 3:14 PM Signed This form is used for MAIN CAMPUS APPOINTMENTS ONLY. Is this request for a [place] PET scan appointment? Yes: Applications Sales Representative: Akiko White Who do we call to schedule this appointment? Other Contact: [facility] PET May Winston [phone] Leila Lambert Area Code [phone] Phone/Pager: [phone] PET Orders (A delay in scheduling will result if the orders are not present at time of review): External. Has the External Clinical Order been scanned into Epic? Yes EXTERNAL OFFICE AUTH IS SCANNED WITH ORDER FOR [facility] ADDITIONAL ACTION MAY BE REQUIRED IF PATIENTS OON INSURANCE OR SELF PAY COVERAGE HAS NOT BEEN CLEARED FOR REQUESTED APPOINTMENT. Scheduling: CIRA: As soon as insurance will allow What account will this PET appointment be linked to? P/F Type of PET: [facility] Are there additional diagnostic CT scans required to be done at time of PET scan? No Is the request for a PET MR ? No What account will diagnostic testing appointment be linked to? P/F Will the patient need anesthesia? NO Send requests to P COORD REVIEW Kalie Whitehead RN 04/03/2025 8:32 AM Signed PSMA 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: Molly Will the patient need anesthesia: NO Primary Insurance: [employer] 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 grade group 5 4+5= 9 Labs: 01-10-25 PSA 0.5 24 PSA 0.6 03-17-24 PSA 0.2 Clinical Notes Reviewed: 03-26-25 [facility] Date of last: na Additional Information/Imaging: N/A Is this the first [facility] PET:Yes (Please schedule as requested by patient or office) Positive Scan Schedule as place of last (DOS) MC or Region Negative Scan Schedule at ANY [facility] site requested Isotope used: Region F-18 flotufolastat,18F flotufolastat Posluma MC GA68 PSMA PET 70705/LOCAMETZ (Gallium GA-68 Gozetotide) (6 mCi) A9800 - MC Posluma (Flotufolastat F18) (8mCi), A9608 - Region Auth#: [id number] Date Range: 03-01-25 to 08-28-25 for 1 dos NPI: Leila Lambert Member ID: [employer] Site/Contact: Case/Ref#: Notes: auths canned into epic Route to or Requested Scheduling Pool: P PET BARIATRIC COORDINATOR Mily CLERICAL POOL(Oriska), Mily BARNES [facility] Allergies As of Date: 04/02/2025 (No Known Allergies) Date Reviewed: 01/23/2025 Reviewed by: Sharon Ocampo RN - Fully Assessed Reason for Visit: Nm Pet Request [[id number]] Prescriptions as of 04/04/2025 - mirabegron (MYRBETRIQ) 50 mg Tb24 Take [...] the nose. Problem List As Of Date 04/02/2025 Noted Resolved Prostate cancer (HCC) [C61] 01/05/2023 Encounter Status:Closed by AKIKO WHITE on 04/04/[address] [facility] Ambulatory Visit Summaryon 0 03-26-2025 Ambulatory Visit Summary Ambulatory Visit Summary MEREDITH VILLATORO Jazmyn :1960 Visit Date:03/26/2025 Ambulatory Visit Instructions Your Diagnosis Prostate cancer Rising PSA following treatment for malignant neoplasm of prostate BPH with obstruction/lower urinary tract symptoms Feeling of incomplete bladder emptying Urge incontinence History of prostatitis Your Care Team Attending Physician - PETRA OVIEDO, Leila Simpson Primary Care Physician - NONE, XXXX This Is Your Medications List atorvastatin (atorvastatin 10 mg Tab) cyclobenzaprine (cyclobenzaprine 10 mg Tab) lisinopril (lisinopril 10 mg Tab) metoprolol (Metoprolol tartrate 50 mg Tab) mirabegron (Myrbetriq 50 mg oral tablet, extended release) naproxen (naproxen 500 mg Tab) tamsulosin (tamsulosin 0.4 mg Cap) Procedures Performed TURP - Transurethral resection of prostate (02/22/2025), Cystoscopy (02/06/2025), Implantation of radioactive seed into prostate (05/21/2022), MRI-US fusion guided transrectal biopsy of prostate (02/05/2022), MRI of prostate (01/08/2022), CABG x 2 - Coronary artery bypass grafts x 2, Colonoscopy, History of coronary artery bypass grafting. Discharge Vitals Heart Rate (Peripheral) 59 Respiratory Rate 18 Blood Pressure 110/64 Height 160 cm Height 63 in Weight 98 kg Weight 216.053 lb BMI 38.28 What to do next Scheduled Follow-Up Appointments Wednesday 10:00 AM EDT With: Where: [facility] [address] [address]- Wednesday 10:15 AM EDT With: Leila LAMBERT MD Where: [facility] [address] [address]- You Need to Schedule the Following Appointments Follow Up with Leila LAMBERT MD, URL When: Where: [facility] [address] [place] [phone]- [phone] Medications What How Much When Instructions Unchanged atorvastatin (atorvastatin 10 mg Tab) Unchanged cyclobenzaprine (cyclobenzaprine 10 mg Tab) Unchanged lisinopril (lisinopril 10 mg Tab) Unchanged metoprolol (Metoprolol tartrate 50 mg Tab) 180 EA, take 1 tablet by mouth twice a day Unchanged mirabegron (Myrbetriq 50 mg oral tablet, extended release) 2 Tablets By Mouth Every day Duration: 90 Days Unchanged naproxen (naproxen 500 mg Tab) 12 EA, take 1 tablet by mouth every 12 hours NEEDED FOR PAIN TAKE WITH FOOD OR MILK Unchanged tamsulosin (tamsulosin 0.4 mg Cap) 1 Capsules By Mouth 2 times a day Medications and Immunizations Administered Given Eligard 45 mg/6 months subcutaneous injection, extended release, 45 mg, SubCutaneous. For: Allergies No Known Medication Allergies Problems Ongoing [...] choosing us for your care. Education Materials Hormone Suppression Therapy for Prostate Cancer Hormone suppression therapy is a treatment for prostate cancer that can help slow the growth of cancer cells in the prostate gland. It is also called androgen deprivation therapy (ADT) or androgen suppression therapy. Hormone suppression therapy targets male sex hormones (androgens) in the body that help cancer cells grow. Hormone suppression therapy alone will not cure prostate cancer, but it can slow the growth of cancer cells and may shrink tumors over time. Your health care provider can help you find the best treatment that fits your lifestyle. Hormone suppression therapy may be used in the following cases: ??? When prostate cancer has spread too far to other places in the body and cannot be cured by surgery or radiation. ??? When a person has health problems that prevent the use of surgery or radiation. ??? Before radiation to help shrink the size of the cancer and make the radiation treatment more effective. ??? If the prostate cancer remains or comes back following treatment with surgery or radiation. What are the types of hormone suppression therapy? Orchiectomy Orchiectomy, also called surgical castration, is a surgery to remove one or both testicles. The testicles make the two main androgens???testoster one and dihydrotestosterone (DHT). This surgery reduces the levels of testosterone in the blood, leading to decreased androgen production. Medicine therap (more content not included)... Normal [facility] Urology Office/Clinic Noteon 03-26-2025 Urology Office/Clinic Note Urology Office/Clinic Note Chief Complaint Patient is here for TUR of prostate lesions. HPI Staff 64 year old male patient here to discuss path and to get Elilarsd. S/P TURP 02/22/2025, Cysto 02/06/2025. Previous Dx: rising PSA following treatment for malignant neoplasm of prostate, prostate cancer, urge incontinence, BPH with obstruction/LUTS and hx of prostatitis. Patient had res=cent Bypass surgery. PSA: 01/16/22 - 2.0 02/16/23 - 0.24 09/06/23- <0.1 03/17/24 - 0.2 10/03/24 - 0.6 01/10/25 - 0.5 History of Present Illness Tests reviewed: reviewed UA, operative note, path report I have reviewed the previous health record information and history for this patient from JENNIFER Kiser. I have reviewed and verified the staff [...] See HPI. Physical Exam Vitals & Measurements HR: 59(Peripheral) RR: 18 BP: 110/64 HT: 63 in HT: 160 cm WT: 216.053 lb WT: 98 kg BMI: 38.28 General Appearance: alert, no distress, well nourished, well developed male. Assessment/Plan Pt here with his neighbor today. 1. Prostate cancer (C61: Malignant neoplasm of prostate) PSA: 01/16/22 - 2.0 02/16/23 - 0.24 09/06/23- <0.1 03/17/24 - 0.2 10/03/24 - 0.6 01/10/25 - 0.5 MRI prostate w/wo con [place]08[place] [facility] [place] 4 and 5. MRI fusion [...] PE 09/13/23: Lt breast tender upon exam. [1] S/p Cysto, TUR of prostate mass ~4 cm 02/22/25. Path shows [place] 9 (4+5), cribriform, ductal (papillary), and sheets (small submucosal nodular sheet) pattern. Incidental lymph invasion in 1 small congested vessel also noticed wo perineural invasion. No significant change of prostatic urethral mucosa. The pathology report, which shows recurrence of prostate cancer, was disclosed to the patient in detail today. Explained that he has high grade cancer which was removed at time of procedure. Advised pt we will proceed with ADT and monitor closely with repeat cystoscopy. Also discussed staging studies to evaluate for mets. Eligard 45 mgIM injection given today with no complications. Left glute. Pt. denies side effects at this time. -Start Casodex 50mg qd -Schedule [facility] PET scan. Will call pt w results. -Will schedule cystoscopy in 5 mos. The risks and benefits for cystoscopy have been discussed. The risks include bleeding, infection, and irritation of the bladder and urinary channel, among others. The patient, after being informed of procedural details and after questions have been answered, wishes to proceed. Full informed consent has been obtained. Will order Local anesthesia. -F/u in 6 mos w/ PSA and Eligard 2. Rising PSA following treatment for malignant neoplasm of prostate (R97.21: Rising PSA following treatment for malignant neoplasm of prostate) See #1. 3. 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 It is at least 2 to 3 cm in size. S/p Cysto, TUR of prostate mass ~4 cm 02/22/25. Catheter removed at [facility], s/p CABG 03/02/25. IPSS 15. Taking Flomax 0.4mg bid. Also taking Myrbetriq 100 mg qd (vs 50mg) and has had minimal improvement. Shares he has to void shortly after already doing so. Does not always feel he empties. Also reports start/stop stream. Occasionally has to schneider to the bathroom. Advised pt Myrbetriq may be contributing to incomplete emptying. Recommended pt to decrease dosage. -Decrease Myrbetriq ER 100mg to 50mg qd -Cont Flomax bid 4. Feeling of incomplete bladder emptying (R39.14: Feeling of incomplete bladder emptying) See #3. 5. Urge incontinence (N39.41: Urge incontinence) See #3. 6. History of prostatitis (Z87.438: Personal history of other diseases of male genital organs) Has been tx'd with Doxycycline and Methenamine in the past. [2] UA today shows moderate blood and trace leuks. (more content not included)... Normal [facility] Comment on above: Result Comment: Elec tronically Signed By: Leila LAMBERT MD\.br\Date and Time Signed: 03/26/25 10:23 EDT\.br\Electronically Co-Signed By: Molly Murray\.br\Date and Time Co-Signed: 03/26/25 10:21 EDT BASIC METABOLIC PANLon 03-07 Anion gap [Moles/Vol] 8 mmol/L Normal 5-15 [facility] Comment on above: Performed By: #### P INR, 62720-8, CBCA, CMP, #### [facility] ([id number]) [address], [address] [place] [address] Calcium [Mass/Vol] 8.6 mg/dL Normal 8.5-10.5 [facility] Comment on above: Performed By: #### P INR, 00255-9, CBCA, CMP, #### [facility] ([id number]) [address] [place] [address] Chloride [Moles/Vol] 102 mmol/L Normal 98-109 [facility] Comment on above: Performed By: #### P INR, 80406-9, CBCA, CMP, #### [facility] ([id number]) [address], [address] [place] [address] CO2 [Moles/Vol] 27 mmol/L Normal 22-32 [facility] Comment on above: Performed By: #### P INR, 36792-8, CBCA, CMP, #### [facility] ([id number]) [address], [address] [place] [address] Creatinine [Mass/Vol] 0.77 mg/dL Normal 0.60-1.30 [facility] Comment on above: Result Comment: METH OD TRACEABLE TO IDMS STANDARD Performed By: #### P INR, 28781-0, CBCA, CMP, #### [facility] ([id number]) [address], [address] [place] [address] eGFR (CKD-EPI) NON-RACE DEPENDENT >90 Normal >59 [facility] Comment on above: Result Comment: Reported eGFR is based on the CKD-EPI 2020 equation that does not use a race coefficient. Performed By: #### P INR, 69219-5, CBCA, CMP, #### [facility] ([id number]) [address], [address] [place] [address] Glucose [Mass/Vol] 109 mg/dL High 65-99 [facility] Comment on above: Performed By: #### P INR, 89376-4, CBCA, CMP, #### [facility] ([id number]) [address] [address] Potassium [Moles/Vol] 4.3 mmol/L Normal 3.5-5.0 [facility] Comment on above: Performed By: #### P INR, 80045-1, CBCA, CMP, #### [facility] ([id number]) [address], [address] [place] [address] Sodium [Moles/Vol] 137 mmol/L Normal 134-146 [facility] Comment on above: Performed By: #### P INR, 53212-8, CBCA, CMP, #### [facility] ([id number]) [address], [address] [place] [address] Urea nitrogen [Mass/Vol] 18 mg/dL Normal 5-27 [facility] Comment on above: Performed By: #### P INR, 83797-4, CBCA, CMP, #### [facility] ([id number]) [address], [address] [place] [address] COMPLETE BLOOD COUNTon 03-07 Erythrocyte distribution width (RBC) [Ratio] 12.7 % Normal 11.5-15.0 [facility] Comment on above: Performed By: #### P INR, 57828-6, CBCA, CMP, #### [facility] ([id number]) [address] [address] [place] [address] Hematocrit (Bld) [Volume fraction] 30.5 % Low 39-49 [facility] Comment on above: Performed By: #### P INR, 58161-5, CBCA, CMP, #### [facility] ([id number]) [address], [address] [place] [address] Hemoglobin (Bld) [Mass/Vol] 10.5 g/dL Low 13.0-17.0 [facility] Comment on above: Performed By: #### P INR, 76165-3, CBCA, CMP, #### [facility] ([id number]) [address], [address] [place] [address] MCH (RBC) [Entitic mass] 31.2 pg Normal 27-34 [facility] Comment on above: Performed By: #### P INR, 80370-4, CBCA, CMP, 1988-03, #### [facility] ([id number]) [address], [address] [place] [address] MCHC (RBC) [Mass/Vol] 34.3 g/dL Normal 32-36 [facility] Comment on above: Performed By: #### P INR, 06519-1, CBCA, CMP, 1988-03, #### [facility] ([id number]) [address], [address] [place] [address] MCV (RBC) [Entitic vol] 91 fL Normal 80-100 [facility] Comment on above: Performed By: #### P INR, 78774-1, CBCA, CMP, 1988-03, #### [facility] ([id number]) [address], [address] [place] [address] Platelet mean volume (Bld) [Entitic vol] 7.1 fL Normal 7-12 [facility] Comment on above: Performed By: #### P INR, 90489-6, CBCA, CMP, 1988-03, #### [facility] ([id number]) [address], [address] [place] [address] Platelets (Bld) [#/Vol] 207 10*3/uL Normal 150-450 [facility] Health Comment on above: Performed By: #### P INR, 21522-6, CBCA, CMP, 1988-03, #### [facility] ([id number]) [address], [address] [place] [address] RBC COUNT 3.35 X10E12/L Low 4.10-5.70 [facility] Comment on above: Performed By: #### P INR, 04006-9, CBCA, CMP, #### [facility] ([id number]) [address], [address] [place] [address] WBC (Bld) [#/Vol] 5.6 10*3/uL Normal 4.0-11.0 [facility] Comment on above: Performed By: #### P INR, 33623-7, CBCA, CMP, #### [facility] ([id number]) [address], [address] [place] [address] MAGNESIUMon 03-07-2025 Magnesium [Mass/Vol] 2.2 mg/dL Normal 1.8-2.6 [facility] Comment on above: Performed By: #### P INR, 02189-2, CBCA, CMP, #### [facility] ([id number]) [address], [address] [place] [address] BASIC METABOLIC PANLon 03-06 Anion gap [Moles/Vol] 8 mmol/L Normal 5-15 [facility] Comment on above: Performed By: #### P INR, 47529-8, CBCA, CMP, #### [facility] ([id number]) [address], [address] [place] [address] Calcium [Mass/Vol] 8.9 mg/dL Normal 8.5-10.5 [facility] Comment on above: Performed By: #### P INR, 72790-2, CBCA, CMP, #### [facility] ([id number]) [address], [address] [place] [address] Chloride [Moles/Vol] 99 mmol/L Normal 98-109 [facility] Comment on above: Performed By: #### P INR, 77488-6, CBCA, CMP, #### [facility] ([id number]) [address], [address] [place] [address] CO2 [Moles/Vol] 26 mmol/L Normal 22-32 [facility] Comment on above: Performed By: #### P INR, 07091-1, CBCA, CMP, #### [facility] ([id number]) [address], [facility] [address] [place] [address] Creatinine [Mass/Vol] 0.83 mg/dL Normal 0.60-1.30 [facility] Comment on above: Result Comment: METH OD TRACEABLE TO IDMS STANDARD Performed By: #### P INR, 37712-5, CBCA, CMP, #### [facility] ([id number]) [address] [address] eGFR (CKD-EPI) NON-RACE DEPENDENT >90 Normal >59 [facility] Comment on above: Result Comment: Reported eGFR is based on the CKD-EPI 2020 equation that does not use a race coefficient. Performed By: #### P INR, 47136-9, CBCA, CMP, #### [facility] ([id number]) [address] [address] Glucose [Mass/Vol] 137 mg/dL High 65-99 [facility] Comment on above: Performed By: #### P INR, 11354-0, CBCA, CMP, #### [facility] ([id number]) [address] [address] Potassium [Moles/Vol] 3.8 mmol/L Normal 3.5-5.0 [facility] Comment on above: Performed By: #### P INR, 46574-0, CBCA, CMP, #### [facility] ([id number]) [address] [place] [address] Sodium [Moles/Vol] 133 mmol/L Low 134-146 [facility] Comment on above: Performed By: #### P INR, 61791-9, CBCA, CMP, #### [facility] ([id number]) [address], [address] [place] [address] Urea nitrogen [Mass/Vol] 22 mg/dL Normal 5-27 [facility] Comment on above: Performed By: #### P INR, 88563-1, CBCA, CMP, #### [facility] ([id number]) [address] [address] COMPLETE BLOOD COUNTon 03-06 Erythrocyte distribution width (RBC) [Ratio] 13.1 % Normal 11.5-15.0 [facility] Comment on above: Performed By: #### P INR, 70966-3, CBCA, CMP, #### [facility] ([id number]) [address] [address] [place] [address] Hematocrit (Bld) [Volume fraction] 31.7 % Low 39-49 [facility] Comment on above: Performed By: #### P INR, 51314-8, CBCA, CMP, #### [facility] ([id number]) [address], [address] [place] [address] Hemoglobin (Bld) [Mass/Vol] 10.9 g/dL Low 13.0-17.0 [facility] Comment on above: Performed By: #### P INR, 39580-0, CBCA, CMP, #### [facility] ([id number]) [address], [address] [place] [address] MCH (RBC) [Entitic mass] 30.6 pg Normal 27-34 [facility] Comment on above: Performed By: #### P INR, 65209-8, CBCA, CMP, 1988-03, #### [facility] ([id number]) [address], [address] [place] [address] MCHC (RBC) [Mass/Vol] 34.3 g/dL Normal 32-36 [facility] Comment on above: Performed By: #### P INR, 82801-8, CBCA, CMP, 1988-03, #### [facility] ([id number]) [address], [address] [place] [address] MCV (RBC) [Entitic vol] 89 fL Normal 80-100 [facility] Comment on above: Performed By: #### P INR, 17849-5, CBCA, CMP, 1988-03, #### [facility] ([id number]) [address], [address] [place] [address] Platelet mean volume (Bld) [Entitic vol] 7.7 fL Normal 7-12 [facility] Comment on above: Performed By: #### P INR, 56080-5, CBCA, CMP, 1988-03, #### [facility] ([id number]) [address], [address] [place] [address] Platelets (Bld) [#/Vol] 201 10*3/uL Normal 150-450 [facility] Comment on above: Performed By: #### P INR, 91508-2, CBCA, CMP, 1988-03, #### [facility] ([id number]) [address], [address] [place] [address] RBC COUNT 3.56 X10E12/L Low 4.10-5.70 [facility] Comment on above: Performed By: #### P INR, 81737-2, CBCA, CMP, 1988-03, #### [facility] ([id number]) [address], [address] [place] [address] WBC (Bld) [#/Vol] 7.2 10*3/uL Normal 4.0-11.0 [facility] Comment on above: Performed By: #### P INR, 34469-5, CBCA, CMP, #### [facility] ([id number]) [address], [address] [place] [address] Glucose Glucometer (BldC) [M ass/Vol]on 03-06-2025 Glucose [Mass/Vol] 122 mg/dL High 65-99 [facility] Glucose [Mass/Vol] 117 mg/dL High 65-99 [facility] Glucose [Mass/Vol] 118 mg/dL High 65-99 [facility] MAGNESIUMon 03-06-2025 Magnesium [Mass/Vol] 2.3 mg/dL Normal 1.8-2.6 [facility] Comment on above: Performed By: #### P INR, 12129-2, CBCA, CMP, #### [facility] ([id number]) [address], [address] [place] [address] POTASSIUMon 03-06-2025 Potassium [Moles/Vol] 4.0 mmol/L Normal 3.5-5.0 [facility] Comment on above: Performed By: #### P INR, 43218-6, CBCA, CMP, #### [facility] ([id number]) [address], [address] [place] [address] XR CHEST 1 VWon 03-06-2025 XR CHEST 1 VW XR CHEST 1 VW EXAM: XR CHEST 1 VW CLINICAL INFORMATION: Shortness of breath. COMPARISON: 03/04/2025 FINDINGS: The patient is status post sternotomy. Stable right IJ central venous catheter. There is chronic elevation of the right hemidiaphragm. There is mild left basilar atelectasis. There is a small segment of that of atelectasis in the left upper lobe. There is no overt pulmonary edema or pleural effusions. Cardiomegaly. IMPRESSION: 1. Status post sternotomy with a right IJ sheath. There is no evidence for a pneumothorax or shift of the mediastinal structures. 2. No convincing evidence for acute cardiopulmonary disease. Finalized by Eulogio Cruz MD on 03/06/2025 5:06 AM Normal [facility] ALT No additional P-5'-P [Ca talytic activity/Vol]on 03-05-2025 ALT [Catalytic activity/Vol] 7 U/L Normal 0-40 [facility] Comment on above: Performed By: #### P INR, 13926-8, CBCA, CMP, #### [facility] ([id number]) [address], [address] [place] [address] Ulises 03-05-2025 AST [Catalytic activity/Vol] 17 U/L Normal 0-41 [facility] Comment on above: Performed By: #### P INR, 35373-7, CBCA, CMP, #### [facility] ([id number]) [address], [address] [place] [address] BASIC METABOLIC PANLon 03-05 Anion gap [Moles/Vol] 9 mmol/L Normal 5-15 [facility] Comment on above: Performed By: #### P INR, 74214-9, CBCA, CMP, #### [facility] ([id number]) [address], [address] [place] [address] Calcium [Mass/Vol] 9.2 mg/dL Normal 8.5-10.5 [facility] Comment on above: Performed By: #### P INR, 39712-0, CBCA, CMP, #### [facility] ([id number]) [address], [address] [place] [address] Chloride [Moles/Vol] 100 mmol/L Normal 98-109 [facility] Comment on above: Performed By: #### P INR, 63443-9, CBCA, CMP, #### [facility] ([id number]) [address], [address] [place] [address] CO2 [Moles/Vol] 26 mmol/L Normal 22-32 [facility] Comment on above: Performed By: #### P INR, 37771-1, CBCA, CMP, #### [facility] ([id number]) [address], [address] [place] [address] Creatinine [Mass/Vol] 1.14 mg/dL Normal 0.60-1.30 [facility] Comment on above: Result Comment: METH OD TRACEABLE TO IDMS STANDARD Performed By: #### P INR, 08878-9, CBCA, CMP, #### [facility] ([id number]) [address], [address] [place] [address] GFR/1.73 sq M.predicted among non-blacks MDRD (S/P/Bld) [Vol rate/Area] 71 mL/min/{1.73_m2} Normal >59 [facility] Comment on above: Result Comment: Reported eGFR is based on the CKD-EPI 2020 equation that does not use a race coefficient. Performed By: #### P INR, 24096-1, CBCA, CMP, #### [facility] ([id number]) [address], [address] [place] [address] Glucose [Mass/Vol] 110 mg/dL High 65-99 [facility] Comment on above: Performed By: #### P INR, 39112-5, CBCA, CMP, #### [facility] ([id number]) [address], [address] [place] [address] Potassium [Moles/Vol] 4.1 mmol/L Normal 3.5-5.0 [facility] Comment on above: Performed By: #### P INR, 07017-7, CBCA, CMP, #### [facility] ([id number]) [address], [address] [place] [address] Sodium [Moles/Vol] 135 mmol/L Normal 134-146 [facility] Comment on above: Performed By: #### P INR, 38370-8, CBCA, CMP, #### [facility] ([id number]) [address], [facility] [address] [place] [address] Urea nitrogen [Mass/Vol] 28 mg/dL High 5-27 [facility] Comment on above: Performed By: #### P INR, 34302-7, CBCA, CMP, #### [facility] ([id number]) [address], [address] [place] [address] COMPLETE BLOOD COUNTon 03-05 Erythrocyte distribution width (RBC) [Ratio] 13.0 % Normal 11.5-15.0 [facility] Comment on above: Performed By: #### P INR, 93859-3, CBCA, CMP, #### [facility] ([id number]) [address], [address] [place] [address] Hematocrit (Bld) [Volume fraction] 33.8 % Low 39-49 [facility] Comment on above: Performed By: #### P INR, 59114-1, CBCA, CMP, #### [facility] ([id number]) [address], [address] [place] [address] Hemoglobin (Bld) [Mass/Vol] 11.5 g/dL Low 13.0-17.0 [facility] Comment on above: Performed By: #### P INR, 41379-3, CBCA, CMP, 1988-03, #### [facility] ([id number]) [address], [address] [place] [address] MCH (RBC) [Entitic mass] 30.8 pg Normal 27-34 [facility] Comment on above: Performed By: #### P INR, 08795-5, CBCA, CMP, 1988-03, #### [facility] ([id number]) [address], [address] [place] [address] MCHC (RBC) [Mass/Vol] 34.0 g/dL Normal 32-36 [facility] Comment on above: Performed By: #### P INR, 25801-9, CBCA, CMP, 1988-03, #### [facility] ([id number]) [address], [address] [place] [address] MCV (RBC) [Entitic vol] 91 fL Normal 80-100 [facility] Comment on above: Performed By: #### P INR, 41006-8, CBCA, CMP, 1988-03, #### [facility] ([id number]) [address], [address] [place] [address] Platelet mean volume (Bld) [Entitic vol] 7.9 fL Normal 7-12 [facility] Comment on above: Performed By: #### P INR, 91100-0, CBCA, CMP, 1988-03, #### [facility] ([id number]) [address] [address] [place] [address] Platelets (Bld) [#/Vol] 193 10*3/uL Normal 150-450 [facility] Comment on above: Performed By: #### P INR, 97001-6, CBCA, CMP, 1988-03, #### [facility] ([id number]) [address], [address] [place] [address] RBC COUNT 3.72 X10E12/L Low 4.10-5.70 [facility] Comment on above: Performed By: #### P INR, 82284-4, CBCA, CMP, 1988-03, #### [facility] ([id number]) [address], [address] [place] [address] WBC (Bld) [#/Vol] 9.3 10*3/uL Normal 4.0-11.0 [facility] Comment on above: Performed By: #### P INR, 17647-2, CBCA, CMP, 1988-03, #### [facility] ([id number]) [address], [address] [place] [address] Calcium.ionized (Bld) [Mass/ Vol]on 03-05-2025 IONIZED CALCIUM 4.9 mg/dL Normal 4.5-5.3 [facility] Comment on above: Performed By: #### P INR, 68784-1, CBCA, CMP, #### [facility] ([id number]) [address], [address] [place] [address] Glucose Glucometer (BldC) [M ass/Vol]on 03-05-2025 Glucose [Mass/Vol] 119 mg/dL High 65-99 [facility] Glucose [Mass/Vol] 127 mg/dL High 65-99 [facility] Glucose [Mass/Vol] 126 mg/dL High 65-99 [facility] Glucose [Mass/Vol] 127 mg/dL High 65-99 [facility] LIVER PANELon 03-05-2025 Albumin [Mass/Vol] 3.8 g/dL Normal 3.2-5.3 [facility] Comment on above: Performed By: #### P INR, 00593-9, CBCA, CMP, #### [facility] ([id number]) [address], [address] [place] [address] ALP [Catalytic activity/Vol] 55 U/L Normal 39-130 [facility] Comment on above: Performed By: #### P INR, 04346-1, CBCA, CMP, 1988-03, #### [facility] ([id number]) [address], [address] [place] [address] ALT [Catalytic activity/Vol] 9 U/L Normal 0-40 [facility] Comment on above: Performed By: #### P INR, 20978-2, CBCA, CMP, 1988-03, #### [facility] ([id number]) [address], [address] [place] [address] AST [Catalytic activity/Vol] 18 U/L Normal 0-41 [facility] Comment on above: Performed By: #### P INR, 01572-5, CBCA, CMP, 1988-03, #### [facility] ([id number]) [address], [address] [place] [address] Bilirubin [Mass/Vol] 0.8 mg/dL Normal 0.3-1.2 [facility] Comment on above: Performed By: #### P INR, 23870-1, CBCA, CMP, #### [facility] ([id number]) [address], [address] [place] [address] Bilirubin.direct [Mass/Vol] 0.1 mg/dL Normal 0.0-0.4 [facility] Comment on above: Performed By: #### P INR, 64394-0, CBCA, CMP, 1988-03, #### [facility] ([id number]) [address], [address] [place] [address] Protein [Mass/Vol] 6.1 g/dL Normal 6.0-8.0 [facility] Comment on above: Performed By: #### P INR, 38911-6, CBCA, CMP, #### [facility] ([id number]) [address], [address] [place] [address] MAGNESIUMon 03-05-2025 Magnesium [Mass/Vol] 2.5 mg/dL Normal 1.8-2.6 [facility] Comment on above: Performed By: #### P INR, 87226-1, CBCA, CMP, #### [facility] ([id number]) [address], [address] [place] [address] Magnesium [Mass/Vol] 2.6 mg/dL Normal 1.8-2.6 [facility] Comment on above: Performed By: #### P INR, 40771-7, CBCA, CMP, #### [facility] ([id number]) [address], [address] [place] [address] POTASSIUMon 03-05-2025 Potassium [Moles/Vol] 3.9 mmol/L Normal 3.5-5.0 [facility] Comment on above: Performed By: #### P INR, 22061-3, CBCA, CMP, #### [facility] ([id number]) [address], [address] [place] [address] BASIC METABOLIC PANLon 03-04 Anion gap [Moles/Vol] 11 mmol/L Normal 5-15 [facility] Comment on above: Performed By: #### P INR, 23384-9, CBCA, CMP, #### [facility] ([id number]) [address], [address] [place] [address] Calcium [Mass/Vol] 9.0 mg/dL Normal 8.5-10.5 [facility] Comment on above: Performed By: #### P INR, 93701-9, CBCA, CMP, #### [facility] ([id number]) [address], [address] [place] [address] Chloride [Moles/Vol] 101 mmol/L Normal 98-109 [facility] Comment on above: Performed By: #### P INR, 27289-0, CBCA, CMP, #### [facility] ([id number]) [address], [address] [place] [address] CO2 [Moles/Vol] 24 mmol/L Normal 22-32 [facility] Comment on above: Performed By: #### P INR, 47306-2, CBCA, CMP, #### [facility] ([id number]) [address], [address] [place] [address] Creatinine [Mass/Vol] 1.14 mg/dL Normal 0.60-1.30 [facility] Comment on above: Result Comment: METH OD TRACEABLE TO IDMS STANDARD Performed By: #### P INR, 95803-7, CBCA, CMP, #### [facility] ([id number]) [address], [address] [place] [address] GFR/1.73 sq M.predicted among non-blacks MDRD (S/P/Bld) [Vol rate/Area] 71 mL/min/{1.73_m2} Normal >59 [facility] Comment on above: Result Comment: Reported eGFR is based on the CKD-EPI 2020 equation that does not use a race coefficient. Performed By: #### P INR, 63008-3, CBCA, CMP, #### [facility] ([id number]) [address], [address] [place] [address] Glucose [Mass/Vol] 133 mg/dL High 65-99 [facility] Comment on above: Performed By: #### P INR, 42618-5, CBCA, CMP, #### [facility] ([id number]) [address], [address] [place] [address] Potassium [Moles/Vol] 4.2 mmol/L Normal 3.5-5.0 [facility] Comment on above: Performed By: #### P INR, 52873-9, CBCA, CMP, #### [facility] ([id number]) [address], [address] [place] [address] Sodium [Moles/Vol] 136 mmol/L Normal 134-146 [facility] Comment on above: Performed By: #### P INR, 12187-5, CBCA, CMP, #### [facility] ([id number]) [address], [address] [place] [address] Urea nitrogen [Mass/Vol] 21 mg/dL Normal 5-27 [facility] Comment on above: Performed By: #### P INR, 51395-0, CBCA, CMP, #### [facility] ([id number]) [address], [address] [place] [address] COMPLETE BLOOD COUNTon 03-04 Erythrocyte distribution width (RBC) [Ratio] 12.8 % Normal 11.5-15.0 [facility] Comment on above: Performed By: #### P INR, 38783-6, CBCA, CMP, #### [facility] ([id number]) [address] [place] [address] Hematocrit (Bld) [Volume fraction] 35.7 % Low 39-49 [facility] Comment on above: Performed By: #### P INR, 52988-8, CBCA, CMP, #### [facility] ([id number]) [address], [address] [place] [address] Hemoglobin (Bld) [Mass/Vol] 12.2 g/dL Low 13.0-17.0 [facility] Comment on above: Performed By: #### P INR, 14731-5, CBCA, CMP, 1988-03, #### [facility] ([id number]) [address], [facility] [address] [place] [address] MCH (RBC) [Entitic mass] 31.0 pg Normal 27-34 [facility] Comment on above: Performed By: #### P INR, 02413-2, CBCA, CMP, 1988-03, #### [facility] ([id number]) [address], [address] [place] [address] MCHC (RBC) [Mass/Vol] 34.1 g/dL Normal 32-36 [facility] Comment on above: Performed By: #### P INR, 58588-1, CBCA, CMP, 1988-03, #### [facility] ([id number]) [address] [address] [place] [address] MCV (RBC) [Entitic vol] 91 fL Normal 80-100 [facility] Comment on above: Performed By: #### P INR, 87588-6, CBCA, CMP, 1988-03, #### [facility] ([id number]) [address] [address] [place] [address] Platelet mean volume (Bld) [Entitic vol] 8.1 fL Normal 7-12 [facility] Comment on above: Performed By: #### P INR, 96513-4, CBCA, CMP, 1988-03, #### [facility] ([id number]) [address] [address] [place] [address] Platelets (Bld) [#/Vol] 205 10*3/uL Normal 150-450 [facility] Comment on above: Performed By: #### P INR, 88369-1, CBCA, CMP, 1988-03, #### [facility] ([id number]) [address], [address] [place] [address] RBC COUNT 3.92 X10E12/L Low 4.10-5.70 [facility] Comment on above: Performed By: #### P INR, 04672-4, CBCA, CMP, 1988-03, #### [facility] ([id number]) [address], [address] [place] [address] WBC (Bld) [#/Vol] 11.5 10*3/uL High 4.0-11.0 [facility] Comment on above: Performed By: #### P INR, 02434-3, CBCA, CMP, 1988-03, #### [facility] ([id number]) [address] [place] [address] Glucose Glucometer (dC) [M ass/Vol]on 03-04-2025 Glucose [Mass/Vol] 122 mg/dL High 65-99 [facility] Glucose [Mass/Vol] 128 mg/dL High 65-99 [facility] Glucose [Mass/Vol] 141 mg/dL High 65-99 [facility] Glucose [Mass/Vol] 137 mg/dL High 65-99 [facility] XR CHEST 1 VWon 03-04-2025 XR CHEST 1 VW XR CHEST 1 VW EXAM: XR CHEST 1 VW CLINICAL INFORMATION: Assess congestion and atelectasis. COMPARISON: 03/03/2025 FINDINGS: The patient is status post sternotomy. There are age a sheath remains in place. Mediastinal pleural drains have been removed in the interval. There is no evidence for a pneumothorax or shift of the mediastinal structures. There is elevation of the right hemidiaphragm and patchy mild left basilar atelectasis. There is no evidence of pulmonary edema. There are no definite pleural effusions. Stable cardiomediastinal silhouette. IMPRESSION: 1. Status post sternotomy. A right IJ sheath remains in place. Mediastinal and pleural drains have been removed. There is no evidence for a pneumothorax or shift of the mediastinal structures. Finalized by Eulogio Cruz MD on 03/04/2025 5:18 AM Normal [facility] BASIC METABOLIC PANLon 03-03 Anion gap [Moles/Vol] 6 mmol/L Normal 5-15 [facility] Comment on above: Performed By: #### P INR, 35108-7, CBCA, CMP, #### [facility] ([id number]) [address], [address] [place] [address] Calcium [Mass/Vol] 8.9 mg/dL Normal 8.5-10.5 [facility] Comment on above: Performed By: #### P INR, 79124-8, CBCA, CMP, #### [facility] ([id number]) [address], [address] [place] [address] Chloride [Moles/Vol] 106 mmol/L Normal 98-109 [facility] Comment on above: Performed By: #### P INR, 41067-0, CBCA, CMP, #### [facility] ([id number]) [address], [address] [place] [address] CO2 [Moles/Vol] 25 mmol/L Normal 22-32 [facility] Comment on above: Performed By: #### P INR, 74073-6, CBCA, CMP, #### [facility] ([id number]) [address], [address] [place] [address] Creatinine [Mass/Vol] 1.09 mg/dL Normal 0.60-1.30 [facility] Comment on above: Result Comment: METH OD TRACEABLE TO IDMS STANDARD Performed By: #### P INR, 89603-8, CBCA, CMP, #### [facility] ([id number]) [address], [address] [place] [address] GFR/1.73 sq M.predicted among non-blacks MDRD (S/P/Bld) [Vol rate/Area] 75 mL/min/{1.73_m2} Normal >59 [facility] Comment on above: Result Comment: Reported eGFR is based on the CKD-EPI 2020 equation that does not use a race coefficient. Performed By: #### P INR, 54265-0, CBCA, CMP, #### [facility] ([id number]) [address], [address] [place] [address] Glucose [Mass/Vol] 136 mg/dL High 65-99 [facility] Comment on above: Performed By: #### P INR, 73647-6, CBCA, CMP, #### [facility] ([id number]) [address], [address] [place] [address] Potassium [Moles/Vol] 4.7 mmol/L Normal 3.5-5.0 [facility] Comment on above: Performed By: #### P INR, 88967-0, CBCA, CMP, #### [facility] ([id number]) [address], [address] [place] [address] Sodium [Moles/Vol] 137 mmol/L Normal 134-146 [facility] Comment on above: Performed By: #### P INR, 17973-3, CBCA, CMP, #### [facility] ([id number]) [address], [address] [place] [address] Urea nitrogen [Mass/Vol] 19 mg/dL Normal 5-27 [facility] Comment on above: Performed By: #### P INR, 00238-4, CBCA, CMP, #### [facility] ([id number]) [address], [address] [place] [address] COMPLETE BLOOD COUNTon 03-03 Erythrocyte distribution width (RBC) [Ratio] 12.9 % Normal 11.5-15.0 [facility] Comment on above: Performed By: #### P INR, 99326-1, CBCA, CMP, 1988-03, #### [facility] ([id number]) [address], [facility] [address] [place] [address] Hematocrit (Bld) [Volume fraction] 36.8 % Low 39-49 [facility] Comment on above: Performed By: #### P INR, 24173-2, CBCA, CMP, #### [facility] ([id number]) [address], [address] [place] [address] Hemoglobin (Bld) [Mass/Vol] 12.8 g/dL Low 13.0-17.0 [facility] Comment on above: Performed By: #### P INR, 77154-8, CBCA, CMP, #### [facility] ([id number]) [address], [address] [place] [address] MCH (RBC) [Entitic mass] 31.2 pg Normal 27-34 [facility] Comment on above: Performed By: #### P INR, 10942-0, CBCA, CMP, #### [facility] ([id number]) [address], [address] [place] [address] MCHC (RBC) [Mass/Vol] 34.9 g/dL Normal 32-36 [facility] Comment on above: Performed By: #### P INR, 23673-1, CBCA, CMP, #### [facility] ([id number]) [address] [facility] [address] [place] [address] MCV (RBC) [Entitic vol] 89 fL Normal 80-100 [facility] Comment on above: Performed By: #### P INR, 10657-4, CBCA, CMP, #### [facility] ([id number]) [address], [address] [place] [address] Platelet mean volume (Bld) [Entitic vol] 7.9 fL Normal 7-12 [facility] Comment on above: Performed By: #### P INR, 08150-2, CBCA, CMP, 1988-03, #### [facility] ([id number]) [address] [place] [address] Platelets (Bld) [#/Vol] 180 10*3/uL Normal 150-450 [facility] Comment on above: Performed By: #### P INR, 91720-1, CBCA, CMP, 1988-03, #### [facility] ([id number]) [address] [address] [place] [address] RBC COUNT 4.12 X10E12/L Normal 4.10-5.70 [facility] Comment on above: Performed By: #### P INR, 21596-1, CBCA, CMP, 1988-03, #### [facility] ([id number]) [address] [place] [address] WBC (Bld) [#/Vol] 10.0 10*3/uL Normal 4.0-11.0 [facility] Comment on above: Performed By: #### P INR, 82821-0, CBCA, CMP, #### [facility] ([id number]) [address], [address] [place] [address] Calcium.ionized (Bld) [Mass/ Vol]on 03-03-2025 IONIZED CALCIUM 4.9 mg/dL Normal 4.5-5.3 [facility] Comment on above: Performed By: #### P INR, 52502-5, CBCA, CMP, #### [facility] ([id number]) [address] [facility], [address] [place] [address] Glucose Glucometer (BldC) [M ass/Vol]on 03-03-2025 Glucose [Mass/Vol] 147 mg/dL High 65-99 [facility] Glucose [Mass/Vol] 124 mg/dL High 65-99 [facility] Glucose [Mass/Vol] 138 mg/dL High 65-99 [facility] Glucose [Mass/Vol] 114 mg/dL High 65-99 [facility] Glucose [Mass/Vol] 89 mg/dL Normal 65-99 [facility] Glucose [Mass/Vol] 106 mg/dL High 65-99 [facility] Glucose [Mass/Vol] 135 mg/dL High 65-99 [facility] Glucose [Mass/Vol] 254 mg/dL High 65-99 [facility] Glucose [Mass/Vol] 104 mg/dL High 65-99 [facility] Glucose [Mass/Vol] 123 mg/dL High 65-99 [facility] Glucose [Mass/Vol] 145 mg/dL High 65-99 [facility] Glucose [Mass/Vol] 175 mg/dL High 65-99 [facility] Glucose [Mass/Vol] 226 mg/dL High 65-99 [facility] Magnesium Ionized ISE (Bld) [Moles/Vol]on 03-03-2025 Magnesium [Moles/Vol] 0.74 mmol/L Normal 0.45-0.74 [facility] Comment on above: Result Comment: NEW REFERENCE RANGE Performed By: #### P INR, 71164-1, CBCA, CMP, #### [facility] ([id number]) [address], [address] [place] [address] PHOSPHORUSon 03-03-2025 Phosphate [Mass/Vol] 3.9 mg/dL Normal 2.4-4.9 [facility] Comment on above: Performed By: #### P INR, 13002-2, CBCA, CMP, #### [facility] ([id number]) [address], [address] [place] [address] POTASSIUMon 03-03-2025 Potassium [Moles/Vol] 4.4 mmol/L Normal 3.5-5.0 [facility] Comment on above: Performed By: #### P INR, 73290-4, CBCA, CMP, #### [facility] ([id number]) [address], [address] [place] [address] Potassium [Moles/Vol] 4.6 mmol/L Normal 3.5-5.0 [facility] Comment on above: Performed By: #### P INR, 92417-0, CBCA, CMP, #### [facility] ([id number]) [address], [address] [place] [address] PROTIME AND INRon 03-03-2025 INR Coag (PPP) [Relative time] 1.1 {INR} Normal 0.9-1.2 [facility] Comment on above: Performed By: #### P INR, 28170-3, CBCA, CMP, #### [facility] ([id number]) [address], [address] [place] [address] PT Coag (PPP) [Time] 12.7 s Normal 9.8-13.2 [facility] Comment on above: Performed By: #### P INR, 52889-7, CBCA, CMP, #### [facility] ([id number]) [address], [address] [place] [address] XR CHEST 1 VWon 03-03-2025 XR CHEST 1 VW XR CHEST 1 VW EXAM: XR CHEST 1 VW CLINICAL INFORMATION: Post op [facility]. COMPARISON: 03/02/2025 FINDINGS: The patient is status post sternotomy. The endotracheal tube has been removed in the interval. Stable right IJ central venous catheter and mediastinal pleural drains. There is no evidence for a pneumothorax or shift of the mediastinal structures. Stable left lung atelectasis. There is no evidence of pulmonary edema. There are no definite pleural effusions. Stable cardiomediastinal silhouette. IMPRESSION: Again seen are changes of sternotomy with a right IJ central venous catheter. The endotracheal tube is been removed. Mediastinal and pleural drains remain in place. There is no evidence for a pneumothorax or shift of the mediastinal structures. Finalized by Eulogio Cruz MD on 03/03/2025 4:46 AM Normal [facility] ABG RAPID K GLU HHon 025 KORINA'S TEST Normal [facility] Comment on above: Performed By: #### C JUSTIN SORENSEN, 89699-2 #### [facility] ([id number]) [address] [address] BASE,DEFICIT 1.5 MMOL/L Normal 0.0-2.0 [facility] Comment on above: Performed By: #### Bereket SORENSEN CMP, 87929-5 #### [facility] ([id number]) [address] [address] [place] [address] Body temperature 98.6 [degF] Normal 37.0 [facility] Comment on above: Performed By: #### Bereket SORENSEN CMP, 81939-0 #### [facility] ([id number]) [address] [place] [address] Glucose [Mass/Vol] 118 mg/dL High 65-99 [facility] Comment on above: Performed By: #### Bereket SORENSEN CMP, 25066-1 #### [facility] ([id number]) [address], [address] [place] [address] HCO3 (Bld) [Moles/Vol] 23.9 mmol/L Normal 22-26 [facility] Comment on above: Performed By: #### Bereket SORENSEN CMP, #### [facility] ([id number]) [address], [address] [place] [address] Hematocrit (Bld) [Volume fraction] 33 % Low 39-49 [facility] Comment on above: Performed By: #### Bereket SORENSEN CMP, #### [facility] ([id number]) [address], [address] [place] [address] Hemoglobin (Bld) [Mass/Vol] 10.9 g/dL Low 13.0-17.0 [facility] Comment on above: Performed By: #### Bereket SORENSEN CMP, #### [facility] ([id number]) [address], [address] [place] [address] INSP. O2 CONC. 100 % Normal [facility] Comment on above: Performed By: #### Bereket SORENSEN CMP, #### [facility] ([id number]) [address], [address] [place] [address] Oxygen (Bld) [Partial pressure] 418 mm[Hg] High 80-100 [facility] Comment on above: Performed By: #### Bereket SORENSEN CMP, #### [facility] ([id number]) [address], [address] [place] [address] Oxygen saturation in Blood 100.4 % Normal >90 [facility] Comment on above: Performed By: #### Bereket SORENSEN CMP, #### [facility] ([id number]) [address], [address] [place] [address] PCO2 42.0 MMHG Normal 35-45 [facility] Comment on above: Performed By: #### C BCA, CMP, #### [facility] ([id number]) [address], [address] [place] [address] pH (Bld) 7.364 [pH] Normal 7.350-7.450 [facility] Comment on above: Performed By: #### C BCA, CMP, #### [facility] ([id number]) [address], [address] [place] [address] Potassium [Moles/Vol] 5.1 mmol/L High 3.5-5.0 [facility] Comment on above: Performed By: #### C BCA, CMP, #### [facility] ([id number]) [address], [address] [place] [address] SAMPLE SITE JUAN Normal [facility] Comment on above: Performed By: #### C BCA, CMP, #### [facility] ([id number]) [address], [address] [place] [address] SAMPLE TYPE Arterial Normal [facility] Comment on above: Performed By: #### C BCA, CMP, #### [facility] ([id number]) [address], [address] [place] [address] ARTERIAL BLOOD GASon 025 KORINA'S TEST Normal [facility] Comment on above: Performed By: #### C BCA, CMP, #### [facility] ([id number]) [address], [address] [place] [address] BASE,DEFICIT 3.4 MMOL/L High 0.0-2.0 [facility] Comment on above: Performed By: #### C BCA, CMP, #### [facility] ([id number]) [address], [address] [place] [address] Body temperature 98.6 [degF] Normal 37.0 [facility] Comment on above: Performed By: #### Bereket SOERNSEN CMP, #### [facility] ([id number]) [address], [address] [place] [address] HCO3 (Bld) [Moles/Vol] 22.5 mmol/L Normal 22-26 [facility] Comment on above: Performed By: #### Bereket SORENSEN CMP, #### [facility] ([id number]) [address], [address] [place] [address] INSP. O2 CONC. 100 % Normal [facility] Comment on above: Performed By: #### Bereket SORENSEN CMP, #### [facility] ([id number]) [address], [address] [place] [address] Oxygen (Bld) [Partial pressure] 284 mm[Hg] High 80-100 [facility] Comment on above: Performed By: #### Bereket SORENSEN CMP, #### [facility] ([id number]) [address], [address] [place] [address] Oxygen saturation in Blood 99.9 % Normal >90 [facility] Comment on above: Performed By: #### Bereket SORENSEN CMP, #### [facility] ([id number]) [address], [address] [place] [address] PCO2 42.6 MMHG Normal 35-45 [facility] Comment on above: Performed By: #### Bereket SORENSEN CMP, #### [facility] ([id number]) [address], [address] [place] [address] pH (Bld) 7.332 [pH] Low 7.350-7.450 [facility] Comment on above: Performed By: #### Bereket SORENSEN CMP, #### [facility] ([id number]) [address], [address] [place] [address] SAMPLE SITE JUAN Normal [facility] Comment on above: Performed By: #### C EDU CMP, 87455-2 #### [facility] ([id number]) [address], [address] [place] [address] SAMPLE TYPE Arterial Normal [facility] Comment on above: Performed By: #### C JUSTIN SORENSEN, 14776-8 #### [facility] ([id number]) [address], [address] [place] [address] BLOOD UREA NITROGENon 2024 Urea nitrogen [Mass/Vol] 21 mg/dL Normal 5-27 [facility] Comment on above: Performed By: #### U A #### [facility] ([id number]) [address], [address] [place] [address] Urea nitrogen [Mass/Vol] 19 mg/dL Normal 5-27 [facility] Comment on above: Performed By: #### Bereket SORENSEN CMP, 02939-9 #### [facility] ([id number]) [address], [address] [place] [address] CBC AND AUTO DIFFon 03-02-20 ABSOLUTE BASOPHIL 0.0 X10E9/L Normal 0.0-0.2 [facility] Comment on above: Performed By: #### Bereket SORENSEN CMP, 49077-5 #### [facility] ([id number]) [address], [address] [place] [address] ABSOLUTE NEUTROPHIL 3.8 X10E9/L Normal 1.5-6.6 [facility] Comment on above: Performed By: #### Bereket SORENSEN, CMP, #### [facility] ([id number]) [address], [address] [place] [address] Basophils/100 WBC (Bld) 0.8 % Normal [facility] Comment on above: Performed By: #### Bereket SORENSEN CMP, #### [facility] ([id number]) [address] [place] [address] Eosinophils (Bld) [#/Vol] 0.1 10*3/uL Normal 0.0-0.4 [facility] Comment on above: Performed By: #### Bereket SORENSEN CMP, #### [facility] ([id number]) [address] [place] [address] Eosinophils/100 WBC (Bld) 2.2 % Normal [facility] Comment on above: Performed By: #### Bereket SORENSEN CMP, #### [facility] ([id number]) [address], [facility] [address] [place] [address] Erythrocyte distribution width (RBC) [Ratio] 12.8 % Normal 11.5-15.0 [facility] Comment on above: Performed By: #### Bereket SORENSEN CMP, #### [facility] ([id number]) [address] [place] [address] Hematocrit (Bld) [Volume fraction] 42.5 % Normal 39-49 [facility] Comment on above: Performed By: #### Bereket SORENSEN CMP, #### [facility] ([id number]) [address] [place] [address] Hemoglobin (Bld) [Mass/Vol] 14.6 g/dL Normal 13.0-17.0 [facility] Comment on above: Performed By: #### Bereket SORENSEN CMP, #### [facility] ([id number]) [address] [place] [address] Lymphocytes (Bld) [#/Vol] 0.7 10*3/uL Low 1.0-3.5 [facility] Comment on above: Performed By: #### C EDU, CMP, #### [facility] ([id number]) [address], [address] [place] [address] Lymphocytes/100 WBC (Bld) 13.4 % Normal [facility] Comment on above: Performed By: #### C EDU, CMP, #### [facility] ([id number]) [address], [address] [place] [address] MCH (RBC) [Entitic mass] 30.8 pg Normal 27-34 [facility] Comment on above: Performed By: #### C EDU, CMP, #### [facility] ([id number]) [address], [address] [place] [address] MCHC (RBC) [Mass/Vol] 34.3 g/dL Normal 32-36 [facility] Comment on above: Performed By: #### C EDU, CMP, #### [facility] ([id number]) [address] [place] [address] MCV (RBC) [Entitic vol] 90 fL Normal 80-100 [facility] Comment on above: Performed By: #### Bereket BCA, CMP, #### [facility] ([id number]) [address] [place] [address] Monocytes (Bld) [#/Vol] 0.5 10*3/uL Normal 0-0.9 [facility] Comment on above: Performed By: #### C BCA, CMP, #### [facility] ([id number]) [address] [place] [address] Monocytes/100 WBC (Bld) 9.4 % Normal [facility] Comment on above: Performed By: #### Bereket BCA, CMP, #### [facility] ([id number]) [address], [address] [place] [address] Neutrophils/100 WBC (Bld) 74.2 % Normal [facility] Comment on above: Performed By: #### C BCA, CMP, 14141-1 #### [facility] ([id number]) [address], [address] [place] [address] Platelet mean volume (Bld) [Entitic vol] 7.7 fL Normal 7-12 [facility] Comment on above: Performed By: #### C BCA, CMP, 23885-0 #### [facility] ([id number]) [address] [place] [address] Platelets (Bld) [#/Vol] 175 10*3/uL Normal 150-450 [facility] Comment on above: Performed By: #### Bereket BCA, CMP, 27776-8 #### [facility] ([id number]) [address] [place] [address] RBC COUNT 4.73 X10E12/L Normal 4.10-5.70 [facility] Comment on above: Performed By: #### C BCA, CMP, 61834-9 #### [facility] ([id number]) [address] [place] [address] WBC (Bld) [#/Vol] 5.1 10*3/uL Normal 4.0-11.0 [facility] Comment on above: Performed By: #### C BCA, CMP, #### [facility] ([id number]) [address], [address] [place] [address] COMPREHENSIVE METABOLIC PANE [place] 03-02-2025 Albumin [Mass/Vol] 3.9 g/dL Normal 3.2-5.3 [facility] Comment on above: Performed By: #### C BCA, CMP, #### [facility] ([id number]) [address], [address] [place] [address] ALP [Catalytic activity/Vol] 56 U/L Normal 39-130 [facility] Comment on above: Performed By: #### C BCA, CMP, 33483-3 #### [facility] ([id number]) [address], [address] [place] [address] ALT [Catalytic activity/Vol] 11 U/L Normal 0-40 [facility] Comment on above: Performed By: #### C BCA, CMP, #### [facility] ([id number]) [address] [place] [address] Anion gap [Moles/Vol] 9 mmol/L Normal 5-15 [facility] Comment on above: Performed By: #### Bereket BCA, CMP, #### [facility] ([id number]) [address] [place] [address] AST [Catalytic activity/Vol] 14 U/L Normal 0-41 [facility] Comment on above: Performed By: #### C BCA, CMP, #### [facility] ([id number]) [address] [place] [address] Bilirubin [Mass/Vol] 0.7 mg/dL Normal 0.3-1.2 [facility] Comment on above: Performed By: #### C BCA, CMP, #### [facility] ([id number]) [address] [place] [address] Calcium [Mass/Vol] 9.0 mg/dL Normal 8.5-10.5 [facility] Comment on above: Performed By: #### C BCA, CMP, #### [facility] ([id number]) [address] [place] [address] Chloride [Moles/Vol] 104 mmol/L Normal 98-109 [facility] Comment on above: Performed By: #### C JUSTIN SORENSEN, 91549-5 #### [facility] ([id number]) [address], [address] [place] [address] CO2 [Moles/Vol] 23 mmol/L Normal 22-32 [facility] Comment on above: Performed By: #### C JUSTIN SORENSEN, #### [facility] ([id number]) [address], [address] [place] [address] Creatinine [Mass/Vol] 1.14 mg/dL Normal 0.60-1.30 [facility] Comment on above: Result Comment: METH OD TRACEABLE TO IDMS STANDARD Performed By: #### C JUSTIN SORENSEN, #### [facility] ([id number]) [address], [address] [place] [address] GFR/1.73 sq M.predicted among non-blacks MDRD (S/P/Bld) [Vol rate/Area] 71 mL/min/{1.73_m2} Normal >59 [facility] Comment on above: Result Comment: Reported eGFR is based on the CKD-EPI 2020 equation that does not use a race coefficient. Performed By: #### C JUSTIN SORENSEN, #### [facility] ([id number]) [address], [address] [place] [address] Glucose [Mass/Vol] 134 mg/dL High 65-99 [facility] Comment on above: Performed By: #### C BCAJUSTIN, 47665-3 #### [facility] ([id number]) [address] [place] [address] Potassium [Moles/Vol] 3.9 mmol/L Normal 3.5-5.0 [facility] Comment on above: Performed By: #### C EDU CMP, #### [facility] ([id number]) [address] [facility] [address] [place] [address] Protein [Mass/Vol] 6.3 g/dL Normal 6.0-8.0 [facility] Comment on above: Performed By: #### C BCA, CMP, 15809-0 #### [facility] ([id number]) [address], [facility] [address] [place] [address] Sodium [Moles/Vol] 136 mmol/L Normal 134-146 [facility] Comment on above: Performed By: #### C BCA, CMP, 22479-7 #### [facility] ([id number]) [address] [place] [address] Urea nitrogen [Mass/Vol] 24 mg/dL Normal 5-27 [facility] Comment on above: Performed By: #### C BCA, CMP, 60662-4 #### [facility] ([id number]) [address] [place] [address] CREATININEon 03-02-2025 Creatinine [Mass/Vol] 1.14 mg/dL Normal 0.60-1.30 [facility] Comment on above: Result Comment: METH OD TRACEABLE TO IDMS STANDARD Performed By: #### U A #### [facility] ([id number]) [address] [place] [address] GFR/1.73 sq M.predicted among non-blacks MDRD (S/P/Bld) [Vol rate/Area] 71 mL/min/{1.73_m2} Normal >59 [facility] Comment on above: Result Comment: Reported eGFR is based on the CKD-EPI 2020 equation that does not use a race coefficient. Performed By: #### U A #### [facility] ([id number]) [address], [address] [place] [address] Creatinine [Mass/Vol] 0.98 mg/dL Normal 0.60-1.30 [facility] Comment on above: Result Comment: METH OD TRACEABLE TO IDMS STANDARD Performed By: #### C EDU, [facility], 26657-9 #### [facility] ([id number]) [address], [address] [place] [address] GFR/1.73 sq M.predicted among non-blacks MDRD (S/P/Bld) [Vol rate/Area] 86 mL/min/{1.73_m2} Normal >59 [facility] Comment on above: Result Comment: Reported eGFR is based on the CKD-EPI 2020 equation that does not use a race coefficient. Performed By: #### C EDU, [facility], 75841-7 #### [facility] ([id number]) [address], [address] [place] [address] Calcium.ionized (Bld) [Mass/ Vol]on 03-02-2025 IONIZED CALCIUM 4.7 mg/dL Normal 4.5-5.3 [facility] Comment on above: Performed By: #### U A #### [facility] ([id number]) [address], [address] [place] [address] IONIZED CALCIUM 5.0 mg/dL Normal 4.5-5.3 [facility] Comment on above: Performed By: #### C EDU [facility], 61592-0 #### [facility] ([id number]) [address] [place] [address] Glucose Glucometer (BldC) [M ass/Vol]on 03-02-2025 Glucose [Mass/Vol] 253 mg/dL High 65-99 [facility] Glucose [Mass/Vol] 140 mg/dL High 65-99 [facility] Glucose [Mass/Vol] 145 mg/dL High 65-99 [facility] Glucose [Mass/Vol] 146 mg/dL High 65-99 [facility] Glucose [Mass/Vol] 130 mg/dL High 65-99 [facility] Glucose [Mass/Vol] 111 mg/dL High 65-99 [facility] HGBon 03-02-2025 Hematocrit (Bld) [Volume fraction] 40.1 % Normal 39-49 [facility] Comment on above: Performed By: #### U A #### [facility] ([id number]) [address], [address] [place] [address] Hemoglobin (Bld) [Mass/Vol] 13.8 g/dL Normal 13.0-17.0 [facility] Comment on above: Performed By: #### U A #### [facility] ([id number]) [address], [facility] [address] [place] [address] Hematocrit (Bld) [Volume fraction] 38.8 % Low 39-49 [facility] Comment on above: Performed By: #### C EDU CMP, 55460-2 #### [facility] ([id number]) [address], [address] [place] [address] Hemoglobin (Bld) [Mass/Vol] 13.2 g/dL Normal 13.0-17.0 [facility] Comment on above: Performed By: #### C EDU CMP, 94034-1 #### [facility] ([id number]) [address], [address] [place] [address] MAGNESIUMon 03-02-2025 Magnesium [Mass/Vol] 2.2 mg/dL Normal 1.8-2.6 [facility] Comment on above: Performed By: #### C EDU, CMP, 39274-4 #### [facility] ([id number]) [address], [address] [place] [address] Magnesium Ionized ISE (Bld) [Moles/Vol]on 03-02-2025 Magnesium [Moles/Vol] 0.73 mmol/L Normal 0.45-0.74 [facility] Comment on above: Result Comment: NEW REFERENCE RANGE Performed By: #### U A #### [facility] ([id number]) [address], [address] [place] [address] Magnesium [Moles/Vol] 0.85 mmol/L High 0.45-0.74 [facility] Comment on above: Result Comment: NEW REFERENCE RANGE Performed By: #### C EDU, CMP, #### [facility] ([id number]) [address] [address] [place] [address] Magnesium [Moles/Vol] 0.58 mmol/L Normal 0.45-0.60 [facility] Comment on above: Performed By: #### C EDU, CMP, #### [facility] ([id number]) [address], [facility] [address] [place] [address] PLATELET COUNT AND MPVon Platelet mean volume (Bld) [Entitic vol] 8.1 fL Normal 7-12 [facility] Comment on above: Performed By: #### U A #### [facility] ([id number]) [address], [address] [place] [address] Platelets (Bld) [#/Vol] 179 10*3/uL Normal 150-450 [facility] Comment on above: Performed By: #### U A #### [facility] ([id number]) [address] [address] [place] [address] Platelet mean volume (Bld) [Entitic vol] 7.5 fL Normal 7-12 [facility] Comment on above: Performed By: #### C EDU, CMP, #### [facility] ([id number]) [address], [address] [place] [address] Platelets (Bld) [#/Vol] 155 10*3/uL Normal 150-450 [facility] Comment on above: Performed By: #### Bereket SORENSEN, CMP, #### [facility] [facility] ([id number]) [address] [place] [address] POTASSIUMon 03-02-2025 Potassium [Moles/Vol] 5.2 mmol/L High 3.5-5.0 [facility] Comment on above: Performed By: #### P INR, 36993-4, CBCA, CMP, 1988-03, #### [facility] ([id number]) [address], [address] [place] [address] Potassium [Moles/Vol] 5.1 mmol/L High 3.5-5.0 [facility] Comment on above: Performed By: #### C BCA, [facility], #### [facility] ([id number]) [address], [address] [place] [address] PROTIME AND INRon 03-02-2025 INR Coag (PPP) [Relative time] 1.2 {INR} Normal 0.9-1.2 [facility] Comment on above: Performed By: #### C BCA, [facility], #### [facility] ([id number]) [address], [address] [place] [address] PT Coag (PPP) [Time] 13.1 s Normal 9.8-13.2 [facility] Comment on above: Performed By: #### C BCA, CMP, #### [facility] ([id number]) [address], [address] [place] [address] RAPID CARDIACon 03-02-2025 KORINA'S TEST Normal [facility] Comment on above: Performed By: #### C BCA, CMP, #### [facility] ([id number]) [address], [address] [place] [address] BASE,DEFICIT 2.8 MMOL/L High 0.0-2.0 [facility] Comment on above: Performed By: #### C BCA, CMP, #### [facility] ([id number]) [address], [address] [place] [address] Body temperature 98.6 [degF] Normal 37.0 [facility] Comment on above: Performed By: #### Bereket SORENSEN CMP, #### [facility] ([id number]) [address], [address] [place] [address] Glucose [Mass/Vol] 118 mg/dL High 65-99 [facility] Comment on above: Performed By: #### Bereket SORENSEN CMP, #### [facility] ([id number]) [address], [address] [place] [address] HCO3 (Bld) [Moles/Vol] 23.1 mmol/L Normal 22-26 [facility] Comment on above: Performed By: #### Bereket SORENSEN CMP, #### [facility] ([id number]) [address], [address] [place] [address] Hematocrit (Bld) [Volume fraction] 37 % Low 39-49 [facility] Comment on above: Performed By: #### Bereket SORENSEN CMP, #### [facility] ([id number]) [address], [address] [place] [address] Hemoglobin (Bld) [Mass/Vol] 11.9 g/dL Low 13.0-17.0 [facility] Comment on above: Performed By: #### Bereket SORENSEN CMP, #### [facility] ([id number]) [address], [address] [place] [address] INSP. O2 CONC. 100 % Normal [facility] Comment on above: Performed By: #### Bereket SORENSEN CMP, #### [facility] ([id number]) [address], [address] [place] [address] IONIZED CALCIUM 5.2 mg/dL Normal 4.5-5.3 [facility] Comment on above: Performed By: #### C EDU, CMP, #### [facility] ([id number]) [address], [address] [place] [address] Oxygen (Bld) [Partial pressure] 145 mm[Hg] High 80-100 [facility] Comment on above: Performed By: #### C EDU, CMP, #### [facility] ([id number]) [address], [address] [place] [address] Oxygen saturation in Blood 99.5 % Normal >90 [facility] Comment on above: Performed By: #### C EDU, CMP, #### [facility] ([id number]) [address], [address] [place] [address] PCO2 43.4 MMHG Normal 35-45 [facility] Comment on above: Performed By: #### Bereket SORENSEN, CMP, #### [facility] ([id number]) [address], [address] [place] [address] pH (Bld) 7.334 [pH] Low 7.350-7.450 [facility] Comment on above: Performed By: #### C EDU, CMP, #### [facility] ([id number]) [address], [address] [place] [address] Potassium [Moles/Vol] 5.0 mmol/L Normal 3.5-5.0 [facility] Comment on above: Performed By: #### C BCA, CMP, #### [facility] ([id number]) [address], [address] [place] [address] SAMPLE SITE JUAN Normal [facility] Comment on above: Performed By: #### C BCA, CMP, #### [facility] ([id number]) [address], [address] [place] [address] SAMPLE TYPE Arterial Normal [facility] Comment on above: Performed By: #### C EDU CMP, #### [facility] ([id number]) [address], [address] [place] [address] KORINA'S TEST Normal [facility] Comment on above: Performed By: #### C EDU CMP, #### [facility] ([id number]) [address], [facility] [address] [place] [address] BASE,DEFICIT 1.7 MMOL/L Normal 0.0-2.0 [facility] Comment on above: Performed By: #### Bereket SORENSEN CMP, #### [facility] ([id number]) [address], [facility] [address] [place] [address] Body temperature 98.6 [degF] Normal 37.0 [facility] Comment on above: Performed By: #### Bereket SORENSEN, CMP, #### [facility] ([id number]) [address], [facility] [address] [place] [address] Glucose [Mass/Vol] 104 mg/dL High 65-99 [facility] Comment on above: Performed By: #### Bereket SORENSEN CMP, #### [facility] ([id number]) [address], [facility] [address] [place] [address] HCO3 (Bld) [Moles/Vol] 23.6 mmol/L Normal 22-26 [facility] Comment on above: Performed By: #### C EDU, CMP, #### [facility] ([id number]) [address] [address] [place] [address] Hematocrit (Bld) [Volume fraction] 46 % Normal 39-49 [facility] Comment on above: Performed By: #### C BCA, CMP, #### [facility] ([id number]) [address], [address] [place] [address] Hemoglobin (Bld) [Mass/Vol] 14.9 g/dL Normal 13.0-17.0 [facility] Comment on above: Performed By: #### Bereket SORENSEN CMP, 39731-9 #### [facility] ([id number]) [address], [address] [place] [address] INSP. O2 CONC. 100 % Normal [facility] Comment on above: Performed By: #### Bereket SORENSEN CMP, #### [facility] ([id number]) [address], [address] [place] [address] IONIZED CALCIUM 4.8 mg/dL Normal 4.5-5.3 [facility] Comment on above: Performed By: #### Bereket SORENSEN CMP, #### [facility] ([id number]) [address], [address] [place] [address] Oxygen (Bld) [Partial pressure] 87 mm[Hg] Normal 80-100 [facility] Comment on above: Performed By: #### Bereket SORENSEN CMP, #### [facility] ([id number]) [address], [address] [place] [address] Oxygen saturation in Blood 97.3 % Normal >90 [facility] Comment on above: Performed By: #### Bereket SORENSEN CMP, #### [facility] ([id number]) [address], [address] [place] [address] PCO2 40.6 MMHG Normal 35-45 [facility] Comment on above: Performed By: #### Bereket SORENSEN CMP, #### [facility] ([id number]) [address], [address] [place] [address] pH (Bld) 7.373 [pH] Normal 7.350-7.450 [facility] Comment on above: Performed By: #### C EDU, CMP, 49351-7 #### [facility] ([id number]) [address], [address] [place] [address] Potassium [Moles/Vol] 4.4 mmol/L Normal 3.5-5.0 [facility] Comment on above: Performed By: #### C EDU CMP, 66981-3 #### [facility] ([id number]) [address], [address] [place] [address] SAMPLE SITE JUAN Normal [facility] Comment on above: Performed By: #### C EDU, CMP, 33710-9 #### [facility] ([id number]) [address], [address] [place] [address] SAMPLE TYPE Arterial Normal [facility] Comment on above: Performed By: #### Bereket SORENSEN, CMP, 92474-5 #### [facility] ([id number]) [address], [address] [place] [address] XR CHEST 1 VWon 03-02-2025 XR CHEST 1 VW XR CHEST 1 VW XR CHEST 1 VW 03/02/2025 4:03 PM INDICATION: Endotracheal tube and central line positioning. COMPARISON: Chest radiograph 02/24/2025. TECHNIQUE: Portable AP supine view of the chest. FINDINGS: Esophageal probe with the tip terminating over the mid lower thorax proximal to the gastroesophageal junction. Endotracheal tube terminates 4.9 cm above the jerrod. Right-sided IJ catheter with the tip terminating overlying the distal right internal jugular vein. Sternotomy wires are present. Mediastinal and left-sided chest drainage tubes. Trachea is midline. Hypoventilatory changes with bronchovascular crowding. Left midlung platelike atelectasis and left basilar atelectasis. IMPRESSION: * Satisfactory positioning of the endotracheal tube. * Esophageal probe terminates within the mid to distal esophagus. * Mediastinal and left pleural drainage tubes are in place. Finalized by Brett Ladd MD on 03/02/2025 4:48 PM [facility] aPTT Coag (PPP) [Time]on aPTT Coag (Bld) [Time] 26 s Normal 26-37 [facility] Comment on above: Performed By: #### C BCA, CMP, #### [facility] ([id number]) [address], [address] [place] [address] CBC AND AUTO DIFFon 03-01-20 ABSOLUTE BASOPHIL 0.0 X10E9/L Normal 0.0-0.2 [facility] Comment on above: Performed By: #### P INR, 65907-8, CBCA, CMP, #### [facility] ([id number]) [address], [address] [place] [address] ABSOLUTE NEUTROPHIL 4.1 X10E9/L Normal 1.5-6.6 [facility] Comment on above: Performed By: #### P INR, 06784-0, CBCA, CMP, #### [facility] ([id number]) [address], [address] [place] [address] Basophils/100 WBC (Bld) 0.7 % Normal [facility] Comment on above: Performed By: #### P INR, 03791-2, CBCA, CMP, #### [facility] ([id number]) [address], [address] [place] [address] Eosinophils (Bld) [#/Vol] 0.1 10*3/uL Normal 0.0-0.4 [facility] Comment on above: Performed By: #### P INR, 36067-6, CBCA, CMP, #### [facility] ([id number]) [address], [address] [place] [address] Eosinophils/100 WBC (Bld) 2.7 % Normal [facility] Comment on above: Performed By: #### P INR, 19692-3, CBCA, CMP, #### [facility] ([id number]) [address], [address] [place] [address] Erythrocyte distribution width (RBC) [Ratio] 12.7 % Normal 11.5-15.0 [facility] Comment on above: Performed By: #### P INR, 58932-3, CBCA, CMP, #### [facility] ([id number]) [address], [address] [place] [address] Hematocrit (Bld) [Volume fraction] 43.1 % Normal 39-49 [facility] Comment on above: Performed By: #### P INR, 02067-4, CBCA, CMP, #### [facility] ([id number]) [address], [address] [place] [address] Hemoglobin (Bld) [Mass/Vol] 14.6 g/dL Normal 13.0-17.0 [facility] Comment on above: Performed By: #### P INR, 59867-0, CBCA, CMP, #### [facility] ([id number]) [address], [facility] [address] [place] [address] Lymphocytes (Bld) [#/Vol] 0.8 10*3/uL Low 1.0-3.5 [facility] Comment on above: Performed By: #### P INR, 48653-3, CBCA, CMP, #### [facility] ([id number]) [address] [facility] [address] [place] [address] Lymphocytes/100 WBC (Bld) 14.9 % Normal [facility] Comment on above: Performed By: #### P INR, 81693-8, CBCA, CMP, #### [facility] ([id number]) [address], [address] [place] [address] MCH (RBC) [Entitic mass] 30.5 pg Normal 27-34 [facility] Comment on above: Performed By: #### P INR, 61797-8, CBCA, CMP, 1988-03, #### [facility] ([id number]) [address], [address] [place] [address] MCHC (RBC) [Mass/Vol] 33.9 g/dL Normal 32-36 [facility] Comment on above: Performed By: #### P INR, 18782-4, CBCA, CMP, 1988-03, #### [facility] ([id number]) [address], [address] [place] [address] MCV (RBC) [Entitic vol] 90 fL Normal 80-100 [facility] Comment on above: Performed By: #### P INR, , CBCA, CMP, 1988-03, #### [facility] ([id number]) [address], [address] [place] [address] Monocytes (Bld) [#/Vol] 0.4 10*3/uL Normal 0-0.9 [facility] Comment on above: Performed By: #### P INR, 49567-4, CBCA, CMP, #### [facility] ([id number]) [address], [address] [place] [address] Monocytes/100 WBC (Bld) 7.7 % Normal [facility] Comment on above: Performed By: #### P INR, 68831-6, CBCA, CMP, 1988-03, #### [facility] ([id number]) [address], [address] [place] [address] Neutrophils/100 WBC (Bld) 74.0 % Normal [facility] Comment on above: Performed By: #### P INR, 86862-1, CBCA, CMP, 1988-03, #### [facility] ([id number]) [address], [address] [place] [address] Platelet mean volume (Bld) [Entitic vol] 7.4 fL Normal 7-12 [facility] Comment on above: Performed By: #### P INR, 38451-9, CBCA, CMP, 1988-03, #### [facility] ([id number]) [address], [address] [place] [address] Platelets (Bld) [#/Vol] 184 10*3/uL Normal 150-450 [facility] Comment on above: Performed By: #### P INR, 93744-8, CBCA, CMP, 1988-03, #### [facility] ([id number]) [address], [address] [place] [address] RBC COUNT 4.80 X10E12/L Normal 4.10-5.70 [facility] Comment on above: Performed By: #### P INR, 31690-0, CBCA, CMP, 1988-03, #### [facility] ([id number]) [address], [address] [place] [address] WBC (Bld) [#/Vol] 5.6 10*3/uL Normal 4.0-11.0 [facility] Comment on above: Performed By: #### P INR, 69221-2, CBCA, CMP, 1988-03, #### [facility] ([id number]) [address], [address] [place] [address] COMPREHENSIVE METABOLIC PANE Jay Jay 03-01-2025 Albumin [Mass/Vol] 3.9 g/dL Normal 3.2-5.3 [facility] Comment on above: Performed By: #### P INR, 11018-8, CBCA, CMP, #### [facility] ([id number]) [address], [address] [place] [address] ALP [Catalytic activity/Vol] 53 U/L Normal 39-130 [facility] Comment on above: Performed By: #### P INR, 31712-2, CBCA, CMP, #### [facility] ([id number]) [address], [address] [place] [address] ALT [Catalytic activity/Vol] 15 U/L Normal 0-40 [facility] Comment on above: Performed By: #### P INR, 28652-8, CBCA, CMP, #### [facility] ([id number]) [address] [place] [address] Anion gap [Moles/Vol] 8 mmol/L Normal 5-15 [facility] Comment on above: Performed By: #### P INR, 89205-1, CBCA, CMP, #### [facility] ([id number]) [address] [place] [address] AST [Catalytic activity/Vol] 14 U/L Normal 0-41 [facility] Comment on above: Performed By: #### P INR, 29291-6, CBCA, CMP, #### [facility] ([id number]) [address], [address] [place] [address] Bilirubin [Mass/Vol] 0.9 mg/dL Normal 0.3-1.2 [facility] Comment on above: Performed By: #### P INR, 43339-0, CBCA, CMP, #### [facility] ([id number]) [address], [address] [place] [address] Calcium [Mass/Vol] 9.4 mg/dL Normal 8.5-10.5 [facility] Comment on above: Performed By: #### P INR, 30281-2, CBCA, CMP, #### [facility] ([id number]) [address], [address] [place] [address] Chloride [Moles/Vol] 105 mmol/L Normal 98-109 [facility] Comment on above: Performed By: #### P INR, 08334-4, CBCA, CMP, 1988-03, #### [facility] ([id number]) [address], [facility] [address] [place] [address] CO2 [Moles/Vol] 23 mmol/L Normal 22-32 [facility] Comment on above: Performed By: #### P INR, 81247-3, CBCA, CMP, #### [facility] ([id number]) [address], [address] [place] [address] Creatinine [Mass/Vol] 0.96 mg/dL Normal 0.60-1.30 [facility] Comment on above: Result Comment: METH OD TRACEABLE TO IDMS STANDARD Performed By: #### P INR, 28922-6, CBCA, CMP, 1988-03, #### [facility] ([id number]) [address], [address] [place] [address] GFR/1.73 sq M.predicted among non-blacks MDRD (S/P/Bld) [Vol rate/Area] 88 mL/min/{1.73_m2} Normal >59 [facility] Comment on above: Result Comment: Reported eGFR is based on the CKD-EPI 2020 equation that does not use a race coefficient. Performed By: #### P INR, 18159-7, CBCA, CMP, #### [facility] ([id number]) [address], [address] [place] [address] Glucose [Mass/Vol] 96 mg/dL Normal 65-99 [facility] Comment on above: Performed By: #### P INR, 38675-3, CBCA, CMP, #### [facility] ([id number]) [address], [address] [place] [address] Potassium [Moles/Vol] 4.6 mmol/L Normal 3.5-5.0 [facility] Comment on above: Performed By: #### P INR, 17278-1, CBCA, CMP, #### [facility] ([id number]) [address] [place] [address] Protein [Mass/Vol] 6.7 g/dL Normal 6.0-8.0 [facility] Comment on above: Performed By: #### P INR, 98064-3, CBCA, CMP, #### [facility] ([id number]) [address], [address] [place] [address] Sodium [Moles/Vol] 136 mmol/L Normal 134-146 [facility] Comment on above: Performed By: #### P INR, 26392-6, CBCA, CMP, #### [facility] ([id number]) [address] [place] [address] Urea nitrogen [Mass/Vol] 28 mg/dL High 5-27 [facility] Comment on above: Performed By: #### P INR, 32335-2, CBCA, CMP, #### [facility] ([id number]) [address], [address] [place] [address] CRP [Mass/Vol]on 03-01-2025 C REACTIVE PROTEIN 0.6 mg/dL Normal 0.000-0.744 [facility] Comment on above: Performed By: #### P INR, 53283-6, CBCA, CMP, #### [facility] ([id number]) [address], [address] [place] [address] MAGNESIUMon 03-01-2025 Magnesium [Mass/Vol] 2.3 mg/dL Normal 1.8-2.6 [facility] Comment on above: Performed By: #### P INR, 18769-8, CBCA, CMP, #### [facility] ([id number]) [address], [address] [place] [address] Natriuretic peptide B [Mass/ Vol]on 03-01-2025 Natriuretic peptide B (Bld) [Mass/Vol] 11 pg/mL Normal <100.0 [facility] Comment on above: Performed By: #### C BCA, [facility], #### [facility] ([id number]) [address], [address] [place] [address] PROTIME AND INRon 03-01-2025 INR Coag (PPP) [Relative time] 1.0 {INR} Normal 0.9-1.2 [facility] Comment on above: Performed By: #### P INR, 81862-2, CBCA, CMP, #### [facility] ([id number]) [address] [address] [place] [address] PT Coag (PPP) [Time] 11.9 s Normal 9.8-13.2 [facility] Comment on above: Performed By: #### P INR, 71186-3, CBCA, CMP, #### [facility] ([id number]) [address], [address] [place] [address] aPTT Coag (PPP) [Time]on aPTT Coag (Bld) [Time] 28 s Normal 26-37 [facility] Comment on above: Performed By: #### P INR, 44436-8, CBCA, CMP, 1988-03, #### [facility] ([id number]) [address], [address] [place] [address] CBC AND AUTO DIFFon 02-29-20 25 ABSOLUTE BASOPHIL 0.1 X10E9/L Normal 0.0-0.2 [facility] Comment on above: Performed By: #### C BCA, CMP, #### [facility] ([id number]) [address], [address] [place] [address] ABSOLUTE NEUTROPHIL 4.9 X10E9/L Normal 1.5-6.6 [facility] Comment on above: Performed By: #### Bereket BCA, CMP, #### [facility] ([id number]) [address], [address] [place] [address] Basophils/100 WBC (Bld) 0.9 % Normal [facility] Comment on above: Performed By: #### Bereket BCA, CMP, #### [facility] ([id number]) [address] [place] [address] Eosinophils (Bld) [#/Vol] 0.2 10*3/uL Normal 0.0-0.4 [facility] Comment on above: Performed By: #### Bereket BCA, CMP, #### [facility] ([id number]) [address] [place] [address] Eosinophils/100 WBC (Bld) 3.1 % Normal [facility] Comment on above: Performed By: #### C BCA, CMP, #### [facility] ([id number]) [address] [place] [address] Erythrocyte distribution width (RBC) [Ratio] 13.2 % Normal 11.5-15.0 [facility] Comment on above: Performed By: #### C EDU CMP, #### [facility] ([id number]) [address] [place] [address] Hematocrit (Bld) [Volume fraction] 46.8 % Normal 39-49 [facility] Comment on above: Performed By: #### Bereket SORENSEN, CMP, #### [facility] ([id number]) [address] [place] [address] Hemoglobin (Bld) [Mass/Vol] 16.0 g/dL Normal 13.0-17.0 [facility] Comment on above: Performed By: #### Bereket SORENSEN CMP, #### [facility] ([id number]) [address], [address] [place] [address] Lymphocytes (Bld) [#/Vol] 1.1 10*3/uL Normal 1.0-3.5 [facility] Comment on above: Performed By: #### Bereket SORENSEN, CMP, #### [facility] ([id number]) [address] [place] [address] Lymphocytes/100 WBC (Bld) 16.1 % Normal [facility] Comment on above: Performed By: #### Bereket SORENSEN CMP, #### [facility] ([id number]) [address], [address] [place] [address] MCH (RBC) [Entitic mass] 30.6 pg Normal 27-34 [facility] Comment on above: Performed By: #### Bereket SORENSEN, CMP, #### [facility] ([id number]) [address], [address] [place] [address] MCHC (RBC) [Mass/Vol] 34.1 g/dL Normal 32-36 [facility] Comment on above: Performed By: #### Bereket SORENSEN CMP, #### [facility] ([id number]) [address], [address] [place] [address] MCV (RBC) [Entitic vol] 90 fL Normal 80-100 [facility] Comment on above: Performed By: #### C EDU, CMP, #### [facility] ([id number]) [address], [address] [place] [address] Monocytes (Bld) [#/Vol] 0.5 10*3/uL Normal 0-0.9 [facility] Comment on above: Performed By: #### Bereket SORENSEN, CMP, #### [facility] ([id number]) [address], [address] [place] [address] Monocytes/100 WBC (Bld) 7.4 % Normal [facility] Comment on above: Performed By: #### Bereket SORENSEN, CMP, #### [facility] ([id number]) [address], [address] [place] [address] Neutrophils/100 WBC (Bld) 72.5 % Normal [facility] Comment on above: Performed By: #### Bereket SORENSEN, CMP, #### [facility] ([id number]) [address], [address] [place] [address] Platelet mean volume (Bld) [Entitic vol] 7.4 fL Normal 7-12 [facility] Comment on above: Performed By: #### Bereket SORENSEN, CMP, #### [facility] ([id number]) [address], [address] [place] [address] Platelets (Bld) [#/Vol] 227 10*3/uL Normal 150-450 [facility] Comment on above: Performed By: #### Bereket SORENSEN, CMP, #### [facility] ([id number]) [address], [address] [place] [address] RBC COUNT 5.22 X10E12/L Normal 4.10-5.70 [facility] Comment on above: Performed By: #### C BCA, CMP, #### [facility] ([id number]) [address], [address] [place] [address] WBC (Bld) [#/Vol] 6.7 10*3/uL Normal 4.0-11.0 [facility] Comment on above: Performed By: #### C BCA, CMP, #### [facility] ([id number]) [address], [address] [place] [address] COMPREHENSIVE METABOLIC PANE Jay Jay [birth year]25 Albumin [Mass/Vol] 4.4 g/dL Normal 3.2-5.3 [facility] Comment on above: Performed By: #### C BCA, CMP, #### [facility] ([id number]) [address], [address] [place] [address] ALP [Catalytic activity/Vol] 64 U/L Normal 39-130 [facility] Comment on above: Performed By: #### C BCA, CMP, 89082-3 #### [facility] ([id number]) [address], [address] [place] [address] ALT [Catalytic activity/Vol] 13 U/L Normal 0-40 [facility] Comment on above: Performed By: #### C BCA, CMP, 10193-2 #### [facility] ([id number]) [address], [address] [place] [address] Anion gap [Moles/Vol] 7 mmol/L Normal 5-15 [facility] Comment on above: Performed By: #### C BCA, CMP, 17775-8 #### [facility] ([id number]) [address], [address] [place] [address] AST [Catalytic activity/Vol] 14 U/L Normal 0-41 [facility] Comment on above: Performed By: #### C JUSTIN SORENSEN, #### [facility] ([id number]) [address], [address] [place] [address] Bilirubin [Mass/Vol] 0.9 mg/dL Normal 0.3-1.2 [facility] Comment on above: Performed By: #### C JUSTIN SORENSEN, #### [facility] ([id number]) [address], [address] [place] [address] Calcium [Mass/Vol] 9.5 mg/dL Normal 8.5-10.5 [facility] Comment on above: Performed By: #### C JUSTIN SORENSEN, #### [facility] ([id number]) [address], [address] [place] [address] Chloride [Moles/Vol] 103 mmol/L Normal 98-109 [facility] Comment on above: Performed By: #### C JUSTIN SORENSEN, #### [facility] ([id number]) [address], [address] [place] [address] CO2 [Moles/Vol] 29 mmol/L Normal 22-32 [facility] Comment on above: Performed By: #### C JUSTIN SORENSEN, #### [facility] ([id number]) [address], [address] [place] [address] Creatinine [Mass/Vol] 1.09 mg/dL Normal 0.60-1.30 [facility] Comment on above: Result Comment: METH OD TRACEABLE TO IDMS STANDARD Performed By: #### C EDU CMP, #### [facility] ([id number]) [address], [address] [place] [address] GFR/1.73 sq M.predicted among non-blacks MDRD (S/P/Bld) [Vol rate/Area] 75 mL/min/{1.73_m2} Normal >59 [facility] Comment on above: Result Comment: Reported eGFR is based on the CKD-EPI 2020 equation that does not use a race coefficient. Performed By: #### C JUSTIN SORENSEN, #### [facility] ([id number]) [address], [address] [place] [address] Glucose [Mass/Vol] 97 mg/dL Normal 65-99 [facility] Comment on above: Performed By: #### C EDU, CMP, 98284-2 #### [facility] ([id number]) [address], [address] [place] [address] Potassium [Moles/Vol] 4.3 mmol/L Normal 3.5-5.0 [facility] Comment on above: Performed By: #### C EDU CMP, #### [facility] ([id number]) [address], [address] [place] [address] Protein [Mass/Vol] 7.4 g/dL Normal 6.0-8.0 [facility] Comment on above: Performed By: #### C EDU, [facility], 05284-7 #### [facility] ([id number]) [address], [address] [place] [address] Sodium [Moles/Vol] 139 mmol/L Normal 134-146 [facility] Comment on above: Performed By: #### C BCA, CMP, #### [facility] ([id number]) [address], [address] [place] [address] Urea nitrogen [Mass/Vol] 27 mg/dL Normal 5-27 [facility] Comment on above: Performed By: #### C BCA, CMP, 26794-1 #### [facility] ([id number]) [address], [address] [place] [address] MAGNESIUMon 02-28-2025 Magnesium [Mass/Vol] 2.3 mg/dL Normal 1.8-2.6 [facility] Comment on above: Performed By: #### C BCA, CMP, 69452-1 #### [facility] ([id number]) [address] [place] [address] URINALYSISon 02-28-2025 Bilirubin Ql (U) Negative Normal NEG [facility] Comment on above: Performed By: #### U A #### [facility] ([id number]) [address], [address] [place] [address] BLOOD/HGB Large Abnormal NEG [facility] Comment on above: Performed By: #### U A #### [facility] ([id number]) [address], [address] [place] [address] Color (U) YELLOW Normal YELLOW [facility] Comment on above: Performed By: #### U A #### [facility] ([id number]) [address], [address] [place] [address] Glucose Ql (U) Negative Normal NEG [facility] Comment on above: Performed By: #### U A #### [facility] ([id number]) [address], [address] [place] [address] Ketones Ql (U) 10 mg/dL Abnormal NEG [facility] Comment on above: Performed By: #### U A #### [facility] ([id number]) [address], [address] [place] [address] Leukocyte esterase Test strip Ql (U) Negative Normal NEG [facility] Comment on above: Performed By: #### U A #### [facility] ([id number]) [address] [place] [address] MUCOUS PRESENT Abnormal NONE [facility] Comment on above: Performed By: #### U A #### [facility] ([id number]) [address], [address] [place] [address] Nitrite Ql (U) Negative Normal NEG [facility] Comment on above: Performed By: #### U A #### [facility] ([id number]) [address], [address] [place] [address] pH (U) 6.0 [pH] Normal 5.0-8.5 [facility] Comment on above: Performed By: #### U A #### [facility] ([id number]) [address], [address] [place] [address] Protein Ql (U) 100 mg/dL Abnormal NEG [facility] Comment on above: Performed By: #### U A #### [facility] ([id number]) [address], [address] [place] [address] R.B.CELLS 581 /hpf High 0-5 [facility] Comment on above: Performed By: #### U A #### [facility] ([id number]) [address], [address] [place] [address] Specific gravity (U) [Rel density] 1.015 Normal 1.003-1.035 [facility] Comment on above: Performed By: #### U A #### [facility] ([id number]) [address], [address] [place] [address] SQUAMOUS EPITHELIUM <1 Normal 0-5 [facility] Comment on above: Performed By: #### U A #### [facility] ([id number]) [address], [address] [place] [address] TURBIDITY CLEAR Normal CLEAR [facility] Comment on above: Performed By: #### U A #### [facility] ([id number]) [address], [address] [place] [address] Urobilinogen (U) [Mass/Vol] mg/dL Normal <1.1 [facility] Comment on above: Performed By: #### U A #### [facility] ([id number]) [address] [place] [address], [address] [place] [address] W.B.CELLS 4 /hpf Normal 0-5 [facility] Comment on above: Performed By: #### U A #### [facility] ([id number]) [address] [place] [address], [address] [place] [address] CBC AND AUTO DIFFon 02-28-20 25 ABSOLUTE BASOPHIL 0.1 X10E9/L Normal 0.0-0.2 [facility] Comment on above: Performed By: #### C EDU CMP, 3039-3, 16669-0 #### [facility] ([id number]) [address] [place] [address] ABSOLUTE NEUTROPHIL 5.7 X10E9/L Normal 1.5-6.6 [facility] Comment on above: Performed By: #### C EDU, [facility], 3040-01, #### [facility] ([id number]) [address] [place] [address] Basophils/100 WBC (Bld) 0.7 % Normal [facility] Comment on above: Performed By: #### Bereket SORENSEN, CMP, 3040-01, #### [facility] ([id number]) [address] [place] [address] Eosinophils (Bld) [#/Vol] 0.2 10*3/uL Normal 0.0-0.4 [facility] Comment on above: Performed By: #### Bereket SORENSEN, CMP, 3040-01, #### [facility] ([id number]) [address] [place] [address] Eosinophils/100 WBC (Bld) 2.6 % Normal [facility] Comment on above: Performed By: #### C JUSTIN SORENSEN, 3040-01, #### [facility] ([id number]) [address] [place] [address] Erythrocyte distribution width (RBC) [Ratio] 12.9 % Normal 11.5-15.0 [facility] Comment on above: Performed By: #### Bereket SORENSEN [facility], 3040-01, #### [facility] ([id number]) [address] [place] [address] Hematocrit (Bld) [Volume fraction] 44.5 % Normal 39-49 [facility] Comment on above: Performed By: #### Bereket SORENSEN CMP, 3040-01, #### [facility] ([id number]) [address] [place] [address] Hemoglobin (Bld) [Mass/Vol] 15.4 g/dL Normal 13.0-17.0 [facility] Comment on above: Performed By: #### Bereket SORENSEN [facility], 3040-01, #### [facility] ([id number]) [address] [place] [address] Lymphocytes (Bld) [#/Vol] 1.0 10*3/uL Normal 1.0-3.5 [facility] Comment on above: Performed By: #### Bereket SORENSEN CMP, 3040-01, #### [facility] ([id number]) [address] [place] [address]50 Lymphocytes/100 WBC (Bld) 13.5 % Normal [facility] Comment on above: Performed By: #### Bereket SORENSEN CMP, 3040-01, #### [facility] ([id number]) [address] [place] [address] MCH (RBC) [Entitic mass] 31.1 pg Normal 27-34 [facility] Comment on above: Performed By: #### C JUSTIN SORENSEN, 3040-01, #### [facility] ([id number]) [address] [place] [address] 69713 MCHC (RBC) [Mass/Vol] 34.7 g/dL Normal 32-36 [facility] Comment on above: Performed By: #### Bereket SORENSEN CMP, 3040-01, #### [facility] ([id number]) [address] [place] [address] 13514 MCV (RBC) [Entitic vol] 90 fL Normal 80-100 [facility] Comment on above: Performed By: #### Bereket SORENSEN CMP, 3040-01, #### [facility] ([id number]) [address] [place] [address] 62823 Monocytes (Bld) [#/Vol] 0.5 10*3/uL Normal 0-0.9 [facility] Comment on above: Performed By: #### Bereket SORENSEN CMP, 3040-01, #### [facility] ([id number]) [address] [place] [address]26 Monocytes/100 WBC (Bld) 6.9 % Normal [facility] Comment on above: Performed By: #### Bereket SORENSEN CMP, 3040-01, #### [facility] ([id number]) [address] [place] [address] Neutrophils/100 WBC (Bld) 76.3 % Normal [facility] Comment on above: Performed By: #### Bereket SORENSEN CMP, 3040-01, #### [facility] ([id number]) [address] [place] [address] 27126 Platelet mean volume (Bld) [Entitic vol] 7.8 fL Normal 7-12 [facility] Comment on above: Performed By: #### C BCA, CMP, 03, 66216-7 #### [facility] ([id number]) [address] [place] [address] Platelets (Bld) [#/Vol] 213 10*3/uL Normal 150-450 [facility] Comment on above: Performed By: #### C BCA, CMP, 3, #### [facility] ([id number]) [address] [place] [address] 28588 RBC COUNT 4.96 X10E12/L Normal 4.10-5.70 [facility] Comment on above: Performed By: #### C BCA, CMP, 3, #### [facility] ([id number]) [address] [place] [address] 95530 WBC (Bld) [#/Vol] 7.5 10*3/uL Normal 4.0-11.0 [facility] Comment on above: Performed By: #### C BCA, CMP, 3040-01, 30550-5 #### [facility] ([id number]) [address] [place] [address] COMPREHENSIVE METABOLIC PANE Jay Ajy 02-27-2025 Albumin [Mass/Vol] 3.8 g/dL Normal 3.2-5.3 [facility] Comment on above: Performed By: #### C BCA, CMP, 3, 41246-4 #### [facility] ([id number]) [address] [place] [address] 62622 ALP [Catalytic activity/Vol] 58 U/L Normal 39-130 [facility] Comment on above: Performed By: #### C BCA, CMP, 3, #### [facility] ([id number]) [address] [place] [address] 17082 ALT [Catalytic activity/Vol] 16 U/L Normal 0-40 [facility] Comment on above: Performed By: #### C EDU, CMP, 3040-01, #### [facility] ([id number]) [address] [place] [address] 64714 Anion gap [Moles/Vol] 6 mmol/L Normal 5-15 [facility] Comment on above: Performed By: #### C BCA, CMP, 3040-01, #### [facility] ([id number]) [address] [place] [address] 10423 AST [Catalytic activity/Vol] 16 U/L Normal 0-41 [facility] Comment on above: Performed By: #### C EDU, CMP, 3040-01, #### [facility] ([id number]) [address] [place] [address] 99147 Bilirubin [Mass/Vol] 1.0 mg/dL Normal 0.3-1.2 [facility] Comment on above: Performed By: #### C EDU, CMP, 3040-01, #### [facility] ([id number]) [address] [place] [address] 51263 Calcium [Mass/Vol] 9.0 mg/dL Normal 8.5-10.5 [facility] Comment on above: Performed By: #### C BCA, CMP, 3040-01, #### [facility] ([id number]) [address] [place] [address] 45254 Chloride [Moles/Vol] 103 mmol/L Normal 98-109 [facility] Comment on above: Performed By: #### C BCA, CMP, 3040-01, #### [facility] ([id number]) [address] [place] [address] 32253 CO2 [Moles/Vol] 24 mmol/L Normal 22-32 [facility] Comment on above: Performed By: #### C JUSTIN SORENSEN, 3, 55136-1 #### [facility] ([id number]) [address] [place] [address] 70735 Creatinine [Mass/Vol] 1.23 mg/dL High 0.70-1.20 [facility] Comment on above: Result Comment: METH OD TRACEABLE TO IDMS STANDARD Performed By: #### C JUSTIN SORENSEN, 3040-01, #### [facility] ([id number]) [address] [place] [address] 85578 GFR/1.73 sq M.predicted among non-blacks MDRD (S/P/Bld) [Vol rate/Area] 65 mL/min/{1.73_m2} Normal >59 [facility] Comment on above: Result Comment: Reported eGFR is based on the CKD-EPI 2020 equation that does not use a race coefficient. Performed By: #### C JUSTIN SORENSEN, 3040-01, #### [facility] ([id number]) [address] [place] [address] 25227 Glucose [Mass/Vol] 121 mg/dL High 65-99 [facility] Comment on above: Performed By: #### C JUSTIN SORENSEN, 3040-01, 73655-6 #### [facility] ([id number]) [address] [place] [address] 39627 Potassium [Moles/Vol] 3.9 mmol/L Normal 3.5-5.0 [facility] Comment on above: Performed By: #### C DEU CMP, 3040-01, #### [facility] ([id number]) [address] [place] [address] 19098 Protein [Mass/Vol] 7.1 g/dL Normal 6.0-8.0 [facility] Comment on above: Performed By: #### C EDU CMP, 3040-01, 50389-2 #### [facility] ([id number]) [address] [place] [address] 99826 Sodium [Moles/Vol] 133 mmol/L Low 134-146 [facility] Comment on above: Performed By: #### C BCA, CMP, 3040-01, #### [facility] ([id number]) [address] [place] [address] 47173 Urea nitrogen [Mass/Vol] 28 mg/dL High 5-27 [facility] Comment on above: Performed By: #### C BCA, CMP, 3040-01, #### [facility] ([id number]) [address] [place] [address] 68516 MAGNESIUMon 02-27-2025 Magnesium [Mass/Vol] 2.4 mg/dL Normal 1.8-2.6 [facility] Comment on above: Performed By: #### C BCA, CMP, 3040-01, 08252-1 #### [facility] ([id number]) [address] [place] [address] 41845 CBC AND AUTO DIFFon 02-27-20 25 ABSOLUTE BASOPHIL 0.1 X10E9/L Normal 0.0-0.2 [facility] Comment on above: Performed By: #### C BCA, CMP, 3040-01, #### [facility] ([id number]) [address] [place] [address] 35044 ABSOLUTE NEUTROPHIL 4.5 X10E9/L Normal 1.5-6.6 [facility] Comment on above: Performed By: #### C BCA, CMP, 3040-01, 34401-2 #### [facility] ([id number]) [address] [place] [address] 09753 Basophils/100 WBC (Bld) 0.9 % Normal [facility] Comment on above: Performed By: #### C JUSTIN SORENSEN, 3040-01, 47672-1 #### [facility] ([id number]) [address] [place] [address] 28312 Eosinophils (Bld) [#/Vol] 0.3 10*3/uL Normal 0.0-0.4 [facility] Comment on above: Performed By: #### Bereket SORENSEN [facility], 3040-01, #### [facility] ([id number]) [address] [place] [address] 65145 Eosinophils/100 WBC (Bld) 4.1 % Normal [facility] Comment on above: Performed By: #### Bereket SORENSEN CMP, 3040-01, #### [facility] ([id number]) [address] [place] [address] 02869 Erythrocyte distribution width (RBC) [Ratio] 12.8 % Normal 11.5-15.0 [facility] Comment on above: Performed By: #### Bereket SORENSEN [facility], 3040-01, #### [facility] ([id number]) [address] [place] [address] 36903 Hematocrit (Bld) [Volume fraction] 41.2 % Normal 39-49 [facility] Comment on above: Performed By: #### Bereket SORENSEN [facility], 3040-01, #### [facility] ([id number]) [address] [place] [address] 40435 Hemoglobin (Bld) [Mass/Vol] 14.4 g/dL Normal 13.0-17.0 [facility] Comment on above: Performed By: #### Bereket SORENSEN CMP, 3040-01, #### [facility] ([id number]) [address] [place] [address] 90144 Lymphocytes (Bld) [#/Vol] 0.9 10*3/uL Low 1.0-3.5 [facility] Comment on above: Performed By: #### C JUSTIN SORENSEN, 3040-01, #### [facility] ([id number]) [address] [place] [address] 34509 Lymphocytes/100 WBC (Bld) 14.4 % Normal [facility] Comment on above: Performed By: #### Bereket SORENSEN CMP, 3040-01, #### [facility] ([id number]) [address] [place] [address] 48894 MCH (RBC) [Entitic mass] 31.3 pg Normal 27-34 [facility] Comment on above: Performed By: #### Bereket SORENSEN CMP, 3040-01, #### [facility] ([id number]) [address] [place] [address] 76033 MCHC (RBC) [Mass/Vol] 35.0 g/dL Normal 32-36 [facility] Comment on above: Performed By: #### Bereket SORENSEN CMP, 3040-01, #### [facility] ([id number]) [address] [place] [address] 61697 MCV (RBC) [Entitic vol] 90 fL Normal 80-100 [facility] Comment on above: Performed By: #### Bereket SORENSEN CMP, 3040-01, #### [facility] ([id number]) [address] [place] [address] 42109 Monocytes (Bld) [#/Vol] 0.5 10*3/uL Normal 0-0.9 [facility] Comment on above: Performed By: #### Bereket SORENSEN CMP, 3040-01, #### [facility] ([id number]) [address] [place] [address] 57533 Monocytes/100 WBC (Bld) 8.4 % Normal [facility] Comment on above: Performed By: #### C EDU, CMP, 3, 32695-2 #### [facility] ([id number]) [address] [place] [address] 18457 Neutrophils/100 WBC (Bld) 72.2 % Normal [facility] Comment on above: Performed By: #### C EDU, CMP, 3040-01, #### [facility] ([id number]) [address] [place] [address] 64843 Platelet mean volume (Bld) [Entitic vol] 7.5 fL Normal 7-12 [facility] Comment on above: Performed By: #### C EDU, CMP, 3040-01, #### [facility] ([id number]) [address] [place] [address] 53003 Platelets (Bld) [#/Vol] 172 10*3/uL Normal 150-450 [facility] Comment on above: Performed By: #### Bereket SORENSEN, CMP, 3040-01, 94644-8 #### [facility] ([id number]) [address] [place] [address] 15441 RBC COUNT 4.60 X10E12/L Normal 4.10-5.70 [facility] Comment on above: Performed By: #### Bereket SORENSEN, CMP, 3040-01, #### [facility] ([id number]) [address] [place] [address] 33334 WBC (Bld) [#/Vol] 6.3 10*3/uL Normal 4.0-11.0 [facility] Comment on above: Performed By: #### C BCA, CMP, 03, #### [facility] ([id number]) [address] [place] [address] 32270 COMPREHENSIVE METABOLIC PANE Jay Jay 02-26-2025 Albumin [Mass/Vol] 4.0 g/dL Normal 3.2-5.3 [facility] Comment on above: Performed By: #### C EDU CMP, 3040-01, 41734-1 #### [facility] ([id number]) [address] [place] [address] 48251 ALP [Catalytic activity/Vol] 51 U/L Normal 39-130 [facility] Comment on above: Performed By: #### C BCA, CMP, 3040-01, #### [facility] ([id number]) [address] [place] [address] 99526 ALT [Catalytic activity/Vol] 15 U/L Normal 0-40 [facility] Comment on above: Performed By: #### C EDU, CMP, 3040-01, #### [facility] ([id number]) [address] [place] [address] [place] [address] Anion gap [Moles/Vol] 6 mmol/L Normal 5-15 [facility] Comment on above: Performed By: #### C EDU, CMP, 3040-01, 87974-8 #### [facility] ([id number]) [address] [place] [address] 95240 AST [Catalytic activity/Vol] 15 U/L Normal 0-41 [facility] Comment on above: Performed By: #### C BCA, CMP, 3040-01, 03104-6 #### [facility] ([id number]) [address] [place] [address] 52155 Bilirubin [Mass/Vol] 1.2 mg/dL Normal 0.3-1.2 [facility] Comment on above: Performed By: #### C BCA, CMP, 3040-01, #### [facility] ([id number]) [address] [place] [address] 96037 Calcium [Mass/Vol] 8.9 mg/dL Normal 8.5-10.5 [facility] Comment on above: Performed By: #### C JUSTIN SORENSEN, 3040-01, 27758-1 #### [facility] ([id number]) [address] [place] [address] 56376 Chloride [Moles/Vol] 107 mmol/L Normal 98-109 [facility] Comment on above: Performed By: #### C JUSTIN SORENSEN, 3040-01, #### [facility] ([id number]) [address] [place] [address] 61207 CO2 [Moles/Vol] 23 mmol/L Normal 22-32 [facility] Comment on above: Performed By: #### C JUSTIN SORENSEN, 3040-01, 41331-0 #### [facility] ([id number]) [address] [place] [address] 13453 Creatinine [Mass/Vol] 1.04 mg/dL Normal 0.70-1.20 [facility] Comment on above: Result Comment: METH OD TRACEABLE TO IDMS STANDARD Performed By: #### C JUSTIN SORENSEN, 3040-01, 63804-4 #### [facility] ([id number]) [address] [place] [address] 42460 GFR/1.73 sq M.predicted among non-blacks MDRD (S/P/Bld) [Vol rate/Area] 80 mL/min/{1.73_m2} Normal >59 [facility] Comment on above: Result Comment: Reported eGFR is based on the CKD-EPI 2020 equation that does not use a race coefficient. Performed By: #### C JUSTIN SORENSEN, 3040-01, 80262-5 #### [facility] ([id number]) [address] [place] [address] 58951 Glucose [Mass/Vol] 115 mg/dL High 65-99 [facility] Comment on above: Performed By: #### C JUSTIN SORENSEN, 3040-01, #### [facility] ([id number]) [address] [place] [address] 89606 Potassium [Moles/Vol] 3.9 mmol/L Normal 3.5-5.0 [facility] Comment on above: Performed By: #### C BCA, CMP, 3040-01, #### [facility] ([id number]) [address] [place] [address] 74874 Protein [Mass/Vol] 6.6 g/dL Normal 6.0-8.0 [facility] Comment on above: Performed By: #### C BCA, CMP, 3040-01, #### [facility] ([id number]) [address] [place] [address] 49140 Sodium [Moles/Vol] 136 mmol/L Normal 134-146 [facility] Comment on above: Performed By: #### C BCA, CMP, 3040-01, #### [facility] ([id number]) [address] [place] [address] 47884 Urea nitrogen [Mass/Vol] 23 mg/dL Normal 5-27 [facility] Comment on above: Performed By: #### C BCA, CMP, 3040-01, 30764-5 #### [facility] ([id number]) [address] [place] [address] 67424 MAGNESIUMon 02-26-2025 Magnesium [Mass/Vol] 2.4 mg/dL Normal 1.8-2.6 [facility] Comment on above: Performed By: #### C BCA, CMP, 3040-01, #### [facility] ([id number]) [address] [place] [address] 49683 Magnesium [Mass/Vol] 1.9 mg/dL Normal 1.8-2.6 [facility] Comment on above: Performed By: #### C EDU, CMP, 3040-01, #### [facility] [facility] ([id number]) [address] [place] [address] 29792 CBC AND AUTO DIFFon 02-25-20 25 ABSOLUTE BASOPHIL 0.1 X10E9/L Normal 0.0-0.2 [facility] Comment on above: Performed By: #### C EDU, CMP, 3040-01, #### [facility] ([id number]) [address] [place] [address] 20940 ABSOLUTE NEUTROPHIL 4.4 X10E9/L Normal 1.5-6.6 [facility] Comment on above: Performed By: #### C EDU, CMP, 3040-01, #### [facility] ([id number]) [address] [place] [address] 24172 Basophils/100 WBC (Bld) 0.9 % Normal [facility] Comment on above: Performed By: #### C EDU, CMP, 3040-01, 92758-0 #### [facility] ([id number]) [address] [place] [address] 69388 Eosinophils (Bld) [#/Vol] 0.2 10*3/uL Normal 0.0-0.4 [facility] Comment on above: Performed By: #### C EDU, CMP, 3040-01, #### [facility] ([id number]) [address] [place] [address] 74403 Eosinophils/100 WBC (Bld) 3.1 % Normal [facility] Comment on above: Performed By: #### C BCA, CMP, 3040-01, #### [facility] ([id number]) [address] [place] [address] 80933 Erythrocyte distribution width (RBC) [Ratio] 12.9 % Normal 11.5-15.0 [facility] Comment on above: Performed By: #### C JUSTIN SORENSEN, 3040-01, 91880-0 #### [facility] ([id number]) [address] [place] [address] 67882 Hematocrit (Bld) [Volume fraction] 40.6 % Normal 39-49 [facility] Comment on above: Performed By: #### Bereket SORENSEN [facility], 3040-01, #### [facility] ([id number]) [address] [place] [address] 54907 Hemoglobin (Bld) [Mass/Vol] 14.1 g/dL Normal 13.0-17.0 [facility] Comment on above: Performed By: #### Bereket SORENSEN CMP, 3040-01, #### [facility] ([id number]) [address] [place] [address] 16064 Lymphocytes (Bld) [#/Vol] 0.9 10*3/uL Low 1.0-3.5 [facility] Comment on above: Performed By: #### Bereket SORENSEN [facility], 3040-01, #### [facility] ([id number]) [address] [place] [address] 18117 Lymphocytes/100 WBC (Bld) 14.4 % Normal [facility] Comment on above: Performed By: #### Bereket SORENSEN CMP, 3040-01, #### [facility] ([id number]) [address] [place] [address] 85622 MCH (RBC) [Entitic mass] 31.4 pg Normal 27-34 [facility] Comment on above: Performed By: #### Bereket SORENSEN CMP, 3040-01, #### [facility] ([id number]) [address] [place] [address] 82683 MCHC (RBC) [Mass/Vol] 34.7 g/dL Normal 32-36 [facility] Comment on above: Performed By: #### Bereket SORENSEN CMP, 3040-01, #### [facility] ([id number]) [address] [place] [address] 95457 MCV (RBC) [Entitic vol] 90 fL Normal 80-100 [facility] Comment on above: Performed By: #### Bereket SORENSEN CMP, 3040-01, #### [facility] ([id number]) [address] [place] [address] 64358 Monocytes (Bld) [#/Vol] 0.5 10*3/uL Normal 0-0.9 [facility] Comment on above: Performed By: #### Bereket SORENSEN CMP, 3040-01, #### [facility] ([id number]) [address] [place] [address] 89307 Monocytes/100 WBC (Bld) 9.0 % Normal [facility] Comment on above: Performed By: #### Bereket SORENSEN CMP, 3040-01, #### [facility] ([id number]) [address] [place] [address] 17517 Neutrophils/100 WBC (Bld) 72.6 % Normal [facility] Comment on above: Performed By: #### Bereket SORENSEN CMP, 3040-01, #### [facility] ([id number]) [address] [place] [address] 69022 Platelet mean volume (Bld) [Entitic vol] 7.6 fL Normal 7-12 [facility] Comment on above: Performed By: #### Bereket SORENSEN CMP, 3040-01, #### [facility] ([id number]) [address] [place] [address] 25572 Platelets (Bld) [#/Vol] 160 10*3/uL Normal 150-450 [facility] Comment on above: Performed By: #### C BCA, CMP, 3, #### [facility] ([id number]) [address] [place] [address] 70055 RBC COUNT 4.49 X10E12/L Normal 4.10-5.70 [facility] Comment on above: Performed By: #### C BCA, CMP, 3040-01, #### [facility] ([id number]) [address] [place] [address] 00382 WBC (Bld) [#/Vol] 6.0 10*3/uL Normal 4.0-11.0 [facility] Comment on above: Performed By: #### C BCA, CMP, 3040-01, #### [facility] ([id number]) [address] [place] [address] 93267 COMPREHENSIVE METABOLIC PANE [facility] 02-25-2025 Albumin [Mass/Vol] 3.6 g/dL Normal 3.2-5.3 [facility] Comment on above: Performed By: #### C BCA, CMP, 3040-01, #### [facility] ([id number]) [address] [place] [address] 89084 ALP [Catalytic activity/Vol] 50 U/L Normal 39-130 [facility] Comment on above: Performed By: #### C BCA, CMP, 3040-01, 23789-2 #### [facility] ([id number]) [address] [place] [address] 61534 ALT [Catalytic activity/Vol] 15 U/L Normal 0-40 [facility] Comment on above: Performed By: #### C BCA, CMP, 3, #### [facility] ([id number]) [address] [place] [address] 41790 Anion gap [Moles/Vol] 5 mmol/L Normal 5-15 [facility] Comment on above: Performed By: #### C EDU, CMP, 3040-01, #### [facility] ([id number]) [address] [place] [address] 41314 AST [Catalytic activity/Vol] 13 U/L Normal 0-41 [facility] Comment on above: Performed By: #### C BCA, CMP, 3040-01, #### [facility] ([id number]) [address] [place] [address] 37249 Bilirubin [Mass/Vol] 1.1 mg/dL Normal 0.3-1.2 [facility] Comment on above: Performed By: #### C EDU, CMP, 3040-01, #### [facility] ([id number]) [address] [place] [address] 79612 Calcium [Mass/Vol] 9.1 mg/dL Normal 8.5-10.5 [facility] Comment on above: Performed By: #### C EDU, CMP, 3040-01, #### [facility] ([id number]) [address] [place] [address] 59464 Chloride [Moles/Vol] 110 mmol/L High 98-109 [facility] Comment on above: Performed By: #### C BCA, CMP, 3040-01, 38244-3 #### [facility] ([id number]) [address] [place] [address] 21308 CO2 [Moles/Vol] 25 mmol/L Normal 22-32 [facility] Comment on above: Performed By: #### C BCA, CMP, 3040-01, #### [facility] ([id number]) [address] [place] [address] 43583 Creatinine [Mass/Vol] 0.99 mg/dL Normal 0.70-1.20 [facility] Comment on above: Result Comment: METH OD TRACEABLE TO IDMS STANDARD Performed By: #### C JUSTIN SORENSEN, 3040-01, #### [facility] ([id number]) [address] [place] [address] 74573 GFR/1.73 sq M.predicted among non-blacks MDRD (S/P/Bld) [Vol rate/Area] 85 mL/min/{1.73_m2} Normal >59 [facility] Comment on above: Result Comment: Reported eGFR is based on the CKD-EPI 2020 equation that does not use a race coefficient. Performed By: #### C JUSTIN SORENSEN, 3040-01, #### [facility] ([id number]) [address] [place] [address] 22783 Glucose [Mass/Vol] 123 mg/dL High 65-99 [facility] Comment on above: Performed By: #### C JUSTIN SORENSEN, 3040-01, #### [facility] ([id number]) [address] [place] [address] 04649 Potassium [Moles/Vol] 3.9 mmol/L Normal 3.5-5.0 [facility] Comment on above: Performed By: #### C JUSTIN SORENSEN, 3040-01, #### [facility] ([id number]) [address] [place] [address] 74586 Protein [Mass/Vol] 6.4 g/dL Normal 6.0-8.0 [facility] Comment on above: Performed By: #### C JUSTIN SORENSEN, 3040-01, #### [facility] ([id number]) [address] [place] [address] 79380 Sodium [Moles/Vol] 140 mmol/L Normal 134-146 [facility] Comment on above: Performed By: #### C JUSTIN SORENSEN, 3040-01, 49054-2 #### [facility] ([id number]) [address] [place] [address] 85513 Urea nitrogen [Mass/Vol] 22 mg/dL Normal 5-27 [facility] Comment on above: Performed By: #### C JUSTIN SORENSEN, 3040-01, 99262-1 #### [facility] ([id number]) [address] [place] [address] 27587 HGB A1C (GLYCO-HGB)on 2024 Glucose [Mass/Vol] 117 mg/dL Normal [facility] Comment on above: Performed By: #### C JUSTIN SORENSEN, 3040-01, 56405-1 #### [facility] ([id number]) [address] [place] [address] 15900 HbA1c (Bld) [Mass fraction] 5.7 % High 4.4-5.6 [facility] Comment on above: Result Comment: NOTE ADA Guidelines Result HgbA1c Normal : less than 5.7 % Prediabetes : 5.7 % to 6.4 % Diabetes : > 6.4 % Use with caution in patients with abnormal hemoglobin variants as the half-life of red blood cells and in vivo glycation rates are affected. Performed By: #### C JUSTIN SORENSEN, 3040-01, 92025-2 #### [facility] ([id number]) [address] [place] [address] 91479 Lipid 1996 panelon Cholesterol [Mass/Vol] 104 mg/dL Low 150-200 [facility] Comment on above: Performed By: #### C JUSTIN SORENSEN, 3040-01, 63266-2 #### [facility] ([id number]) [address] [place] [address] 03882 Cholesterol in HDL [Mass/Vol] 29 mg/dL Low >39 [facility] Comment on above: Result Comment: HDL <40 mg/dL - High Risk HDL > or = 40mg/dL- Desirable HDL >60 mg/dL - Negative Risk Performed By: ###Amy Cuba BCA, CMP, 3040-3, 09933-1 #### [facility] ([id number]) [address] [place] [address] 53635 Cholesterol in LDL [Mass/Vol] 53 mg/dL Normal <130 [facility] Comment on above: Result Comment: LDL <100 mg/dL - Desirable LDL >160 mg/dL - High Risk Performed By: #### Bereket BCA, CMP, 3040-3, 07968-0 #### [facility] ([id number]) [address] [place] [address] 83984 Cholesterol in VLDL [Mass/Vol] 22 mg/dL Normal 0-30 [facility] Comment on above: Performed By: #### Bereket SORENSEN, CMP, 3040-3, 23339-6 #### [facility] ([id number]) [address] [place] [address] 75224 CHOLESTEROL:HDL 3.6 Normal 1.0-5.0 [facility] Comment on above: Performed By: #### Bereket SORENSEN, CMP, 3040-3, 34465-8 #### [facility] ([id number]) [address] [place] [address] 98241 Triglyceride [Mass/Vol] 109 mg/dL Normal 27-150 [facility] Comment on above: Performed By: #### Bereket SORENSEN, CMP, 3040-3, 18765-6 #### [facility] ([id number]) [address] [place] [address] 86071 MAGNESIUMon 02-25-2025 Magnesium [Mass/Vol] 1.9 mg/dL Normal 1.8-2.6 [facility] Comment on above: Performed By: #### C BCA, CMP, 3, 67043-7 #### [facility] ([id number]) [address] [place] [address] 26978 CBC AND AUTO DIFFon 02-25-20 25 ABSOLUTE BASOPHIL 0.0 X10E9/L Normal 0.0-0.2 [facility] Comment on above: Performed By: #### C EDU, CMP, 3, #### [facility] ([id number]) [address] [place] [address] 62310 ABSOLUTE NEUTROPHIL 5.7 X10E9/L Normal 1.5-6.6 [facility] Comment on above: Performed By: #### C BCA, CMP, 3, #### [facility] ([id number]) [address] [place] [address] 15680 Basophils/100 WBC (Bld) 0.6 % Normal [facility] Comment on above: Performed By: #### C BCA, CMP, 3, 80051-4 #### [facility] ([id number]) [address] [place] [address] 52332 Eosinophils (Bld) [#/Vol] 0.1 10*3/uL Normal 0.0-0.4 [facility] Comment on above: Performed By: #### C BCA, CMP, 3, #### [facility] ([id number]) [address] [place] [address] 18699 Eosinophils/100 WBC (Bld) 1.7 % Normal [facility] Comment on above: Performed By: #### C BCA, CMP, 3040-01, #### [facility] ([id number]) [address] [place] [address] 37688 Erythrocyte distribution width (RBC) [Ratio] 13.0 % Normal 11.5-15.0 [facility] Comment on above: Performed By: #### C EDU [facility], 3040-01, #### [facility] ([id number]) [address] [place] [address] 02212 Hematocrit (Bld) [Volume fraction] 42.1 % Normal 39-49 [facility] Comment on above: Performed By: #### C EDU [facility], 3040-01, #### [facility] ([id number]) [address] [place] [address] 64599 Hemoglobin (Bld) [Mass/Vol] 14.4 g/dL Normal 13.0-17.0 [facility] Comment on above: Performed By: #### C EDU [facility], 3040-01, #### [facility] ([id number]) [address] [place] [address] 25935 Lymphocytes (Bld) [#/Vol] 0.7 10*3/uL Low 1.0-3.5 [facility] Comment on above: Performed By: #### C EDU [facility], 3040-01, #### [facility] ([id number]) [address] [place] [address] 02906 Lymphocytes/100 WBC (Bld) 9.6 % Normal [facility] Comment on above: Performed By: #### C EDU CMP, 3040-01, #### [facility] ([id number]) [address] [place] [address] 79448 MCH (RBC) [Entitic mass] 30.7 pg Normal 27-34 [facility] Comment on above: Performed By: #### C EDU CMP, 3040-01, #### [facility] ([id number]) [address] [place] [address] 66669 MCHC (RBC) [Mass/Vol] 34.1 g/dL Normal 32-36 [facility] Comment on above: Performed By: #### C EDU, CMP, 3040-01, #### [facility] ([id number]) [address] [place] [address] 18592 MCV (RBC) [Entitic vol] 90 fL Normal 80-100 [facility] Comment on above: Performed By: #### C EDU CMP, 3040-01, #### [facility] ([id number]) [address] [place] [address] 44520 Monocytes (Bld) [#/Vol] 0.5 10*3/uL Normal 0-0.9 [facility] Comment on above: Performed By: #### Bereket SORENSEN, CMP, 3040-01, #### [facility] ([id number]) [address] [place] [address] 11830 Monocytes/100 WBC (Bld) 7.0 % Normal [facility] Comment on above: Performed By: #### Bereket SORENSEN, CMP, 3040-01, #### [facility] ([id number]) [address] [place] [address] 72680 Neutrophils/100 WBC (Bld) 81.1 % Normal [facility] Comment on above: Performed By: #### Bereket SORENSEN, CMP, 3040-01, #### [facility] ([id number]) [address] [place] [address] 22043 Platelet mean volume (Bld) [Entitic vol] 7.4 fL Normal 7-12 [facility] Comment on above: Performed By: #### Bereket BCA, CMP, 3, 23212-8 #### [facility] ([id number]) [address] [place] [address] 57662 Platelets (Bld) [#/Vol] 169 10*3/uL Normal 150-450 [facility] Comment on above: Performed By: #### C BCA, CMP, 3040-01, #### [facility] ([id number]) [address] [place] [address] 81834 RBC COUNT 4.68 X10E12/L Normal 4.10-5.70 [facility] Comment on above: Performed By: #### C BCA, CMP, 3040-01, #### [facility] ([id number]) [address] [place] [address] 93699 WBC (Bld) [#/Vol] 7.0 10*3/uL Normal 4.0-11.0 [facility] Comment on above: Performed By: #### C BCA, CMP, 3040-01, 43016-2 #### [facility] ([id number]) [address] [place] [address] 78409 COMPREHENSIVE METABOLIC PANE [place] 02-24-2025 Albumin [Mass/Vol] 3.9 g/dL Normal 3.2-5.3 [facility] Comment on above: Performed By: #### C BCA, CMP, 3040-01, 99052-0 #### [facility] ([id number]) [address] [place] [address] 31442 ALP [Catalytic activity/Vol] 51 U/L Normal 39-130 [facility] Comment on above: Performed By: #### C BCA, CMP, 3, 49545-7 #### [facility] ([id number]) [address] [place] [address] 04582 ALT [Catalytic activity/Vol] 17 U/L Normal 0-40 [facility] Comment on above: Performed By: #### C BCA, CMP, 3040-01, 37126-2 #### [facility] ([id number]) [address] [place] [address] 58586 Anion gap [Moles/Vol] 8 mmol/L Normal 5-15 [facility] Comment on above: Performed By: #### C BCA, CMP, 3040-01, #### [facility] ([id number]) [address] [place] [address] [place] [address] AST [Catalytic activity/Vol] 19 U/L Normal 0-41 [facility] Comment on above: Performed By: #### C BCA, CMP, 3040-01, #### [facility] ([id number]) [address] [place] [address] [place] [address] Bilirubin [Mass/Vol] 1.2 mg/dL Normal 0.3-1.2 [facility] Comment on above: Performed By: #### C BCA, CMP, 3040-01, #### [facility] ([id number]) [address] [place] [address] [place] [address] Calcium [Mass/Vol] 9.2 mg/dL Normal 8.5-10.5 [facility] Comment on above: Performed By: #### C BCA, CMP, 3040-01, #### [facility] ([id number]) [address] [place] [address] [place] [address] Chloride [Moles/Vol] 107 mmol/L Normal 98-109 [facility] Comment on above: Performed By: #### C BCA, CMP, 3040-01, #### [facility] ([id number]) [address] [place] [address] [place] [address] CO2 [Moles/Vol] 24 mmol/L Normal 22-32 [facility] Comment on above: Performed By: #### C JUSTIN SORENSEN, 3040-01, #### [facility] ([id number]) [address] [place] [address] 70940 Creatinine [Mass/Vol] 1.01 mg/dL Normal 0.70-1.20 [facility] Comment on above: Result Comment: METH OD TRACEABLE TO IDMS STANDARD Performed By: #### C JUSTIN SORENSEN, 3040-01, #### [facility] ([id number]) [address] [place] [address] 65863 GFR/1.73 sq M.predicted among non-blacks MDRD (S/P/Bld) [Vol rate/Area] 83 mL/min/{1.73_m2} Normal >59 [facility] Comment on above: Result Comment: Reported eGFR is based on the CKD-EPI 2020 equation that does not use a race coefficient. Performed By: #### C JUSTIN SORENSEN, 3040-01, #### [facility] ([id number]) [address] [place] [address] 94708 Glucose [Mass/Vol] 158 mg/dL High 65-99 [facility] Comment on above: Performed By: #### C JUSTIN SORENSEN, 3040-01, #### [facility] ([id number]) [address] [place] [address] 95148 Potassium [Moles/Vol] 3.8 mmol/L Normal 3.5-5.0 [facility] Comment on above: Performed By: #### C EDU CMP, 3040-01, #### [facility] ([id number]) [address] [place] [address] 21356 Protein [Mass/Vol] 6.8 g/dL Normal 6.0-8.0 [facility] Comment on above: Performed By: #### C EDU CMP, 3040-01, #### [facility] ([id number]) [address] [place] [address] Sodium [Moles/Vol] 139 mmol/L Normal 134-146 [facility] Comment on above: Performed By: #### C JUSTIN SORENSEN, 3039-3, 60678-5 #### [facility] ([id number]) [address] [place] [address] 12553 Urea nitrogen [Mass/Vol] 19 mg/dL Normal 5-27 [facility] Comment on above: Performed By: #### C EDU JUSTIN, 3040-01, 59516-4 #### [facility] ([id number]) [address] [place] [address] 85790 Fibrin D-dimer DDU (PPP) [Ma ss/Vol]on 02-24-2025 D DIMER <150 Normal <255 [facility] Comment on above: Result Comment: Results <255 ng/mL DDU: The presence of a VTE can safely be excluded with a negative D-Dimer result and Wells score. A negative result doesn't exclude the possibility of DIC. The test be repeated along with other diagnostic tests if the patient's symptoms persist or worsen. [email or web address] Performed By: #### C EDU JUSTIN, 3040-01, 50170-9 #### [facility] ([id number]) [address] [place] [address] 62681 MAGNESIUMon 02-24-2025 Magnesium [Mass/Vol] 1.7 mg/dL Low 1.8-2.6 [facility] Comment on above: Performed By: #### C EDU JUSTIN, 3040-01, 82616-2 #### [facility] ([id number]) [address] [place] [address] 38242 PROTIME AND INRon 02-24-2025 INR Coag (PPP) [Relative time] 1.1 {INR} Normal 0.9-1.2 [facility] Comment on above: Performed By: #### C EDU JUSTIN, 3040-3, 42416-7 #### [facility] ([id number]) [address] [place] [address] 53691 PT Coag (PPP) [Time] 12.5 s Normal 9.8-13.2 [facility] Comment on above: Result Comment: NEW REFERENCE RANGE Performed By: #### C EDU JUSTIN, 3040-3, 92458-1 #### [facility] ([id number]) [address] [place] [address] 55351 Troponin I.cardiac High sens itivity method [Mass/Vol]on 02-24-2025 1 HOUR TROP I, HIGH SENSITIVITY 3 ng/L Normal <21 [facility] Comment on above: Performed By: #### C EDU JUSTIN, 3040-3, 08232-7 #### [facility] ([id number]) [address] [place] [address] 70719 TROPONIN I, HIGH SENSITIVITY 3 ng/L Normal <21 [facility] Comment on above: Performed By: #### C EDU JUSTIN, 3040-3, 09106-4 #### [facility] ([id number]) [address] [place] [address] [id number] XR CHEST 1 VWon 02-24-2025 XR CHEST 1 VW XR CHEST 1 VW Clinical history: Chest pain. Comparisons: 06/15/2019 through 04/14/2023. Findings: AP portable upright chest radiograph obtained 6:06 PM. Heart size and pulmonary vasculature appear within normal limits. Lungs appear clear. No pleural effusion. No pneumothorax. IMPRESSION: No evidence for acute cardiopulmonary disease. Finalized by Rony Andrew MD on 02/24/2025 6:12 PM Normal [facility] Jay Jay 02-22-2025 L - -------- Specimen: [id number] Received: 02/23/25 Status: TATIANAArjun Louise Num: [id number] Spec Type: Surgical Subm Dr: Leila Lambert MD Tissues: A Prostate - Tur (PROSTATE LESION) Procedures: LOLA Gross/Micro L4 -------- Age/ Patient Sex Location Account Attending Physician -------- Meredith Villatoro 64/M [place] [id number] Leila Lambert MD -------- SPEC NUM: [id number] RECD: 02/23/25 STATUS: YEHUDA LOUISE NUM: [id number] MICHEL: 02/22/25-[address]: Leila Lambert MD ENTERED: 02/23/[address]: [place],Lab SPEC TYPE: Surgical DEPT: RACQUEL KEITH ENTERED BY: [id number] RECV BY: [id number] ORDERED: LOLA, Gross/Micro L4 ORDERED: LOLA, Gross/Micro L4 Pathological Diagnosis Prostate lesions, TURP: -High-grade prostatic adenocarcinoma in the majority portion of the section, showing cribriform, ductal (papillary), and sheets (small submucosal nodular sheet) pattern, consistent with Judd score 4+5=9 (grade group 5) -Incidental lymphovascular invasion in 1 small congested vessel is also noticed without perineural invasion -No significant change of the examined prostatic urethral mucosa Clinical Information Prostate tumors lesions, blood in urine Gross Description Part A is received in formalin labeled with the patients name, date of , and prostate lesions are 0.5 g of josue-pink, rubbery tissue chips, 1.5 x 1.2 x 0.3 cm in aggregate. The specimen is filtered and entirely submitted in a single cassette. (1, ns, [id number]) HAKEEM -------- Specimen: [id number] Received: 02/23/25 Status: YEHUDA Louise Num: [id number] Spec Type: Surgical Subm Dr: Leila Lambert MD Tissues: A Prostate - Tur (PROSTATE LESION) Procedures: Raymond DAVILA/Micro L4 -------- Patient: Meredith Villatoro [id number] (Continued) -------- Specimen: [id number] Received: 02/23/25 (Continued) Signed (signature on file) Aimee Maloney MD 02/27/25 1211 -------- Specimen: [id number] Received: 02/23/25 Status: YEHUDA Louise Num: [id number] Spec Type: Surgical Subm Dr: Leila Lambert MD Tissues: A Prostate - Tur (PROSTATE LESION) Procedures: Raymond DAVILA/Radha L4 -------- Patient: Meredith Villatoro [id number] (Continued) -------- Specimen: [id number] Received: 02/23/25 (Continued) Microscopic Description Microscopic examination is performed CPT Codes 89043 -------- -------- Specimen: [id number] Received: 02/23/25 Status: YEHUDA [place] Num: [id number] Spec Type: Surgical Subm Dr: Leila Lambert MD Tissues: A Prostate - Tur (PROSTATE LESION) Procedures: Raymond DAVILA/Radha L4 -------- Patient: Meredith Villatoro [id number] (Continued) -------- Signed (signature on file) Aimee Maloney MD 02/27/25 1211 [facility] Physician [facility] Urology Office/Clinic Noteon 03-25-2025 Urology Office/Clinic Note Urology Office/Clinic Note Chief [...] E&M of Est. Patient Low 20-29 Min 84079 2. Feeling of incomplete bladder emptying (R39.14: Feeling of incomplete bladder emptying) PVR low today. Ordered: 75127 Measure Post Void residual urine and/or bladder capacity by US- non-imaging E&M of Est. Patient Low 20-29 Min 35558 Urnls Dip Stick Auto w/o Microscopy POC 93841 Orders: phenazopyridine, 200 mg = 1 tab(s), Oral, TID, PRN burning with urination, X 2 day(s), # 6 tab(s), Refills(s) 0, [facility]: [facility] [id number], 160, cm, 02/20/25 12:00:00 EDT, Height/Length Dosing, 104, kg, 02/20/25 12:00:00 EDT, Weight Dosing Follow-up With When Contact Information [facility] Additional Instructions: For procedure as scheduled. Patient [...] Protein Urine Dipstick: Negative (02/20/25 12:14:00) Specific [place] Urine Dipstick: >=1.030 (02/20/25 12:14:00) Urine Appearance Urine Dipstick: Clear (02/20/25 12:14:00) Urobilinogen Urine Dipstick: Normal 0.2-1 EU/dl (02/20/25 12:14:00) pH Urine Dipstick: 5.5 (02/20/25 12:14:00) Normal [facility] Comment on above: Result Comment: Elec tronically Signed By: JERI MENDIETA PA-C\.br\Date and Time Signed: 02/20/25 13:24 EDT Main OR Intraoperative Recor don 02-06-2025 Main OR Intraoperative Record Main OR Intraoperative Record IntraOp Document Type FTURO Summary Primary Physician: Leila LAMBERT MD Finalized Date/Time: 02/06/25 13:46:29 Pt. Name: IRVING MEREDITH Jordan/Sex: 1960 Male Med Rec #: [id number] Physician: Leila LAMBERT MD Financial #: [id number] Pt. Type: O Room/Bed: / Admit/Disch: 02/06/25 [...] Fernando Quigley Role Performed Surgeon - Primary Pump Operator - Primary Scrub - Primary Time In 02/06/25 13:30:00 02/06/25 13:30:00 02/06/25 13:30:00 Time Out 02/06/25 13:46:00 02/06/25 13:46:00 02/06/25 13:46:00 Procedure CYSTOSCOPY LOCAL(.) CYSTOSCOPY LOCAL(.) CYSTOSCOPY LOCAL(.) Comments Last Modified By: Thania OSPINA, Sia Monteiro RN, Sia Monteiro RN, Sai Minor 02/06/25 Deb Minor 02/06/25 Deb Minor 02/06/25 13:41:37 13:41:37 13:41:37 Surgical Procedures FTURO Entry 1 Procedure Description Procedure CYSTOSCOPY LOCAL Modifiers . Surgeon Description CYSTOSCOPY Primary Procedure Yes Primary Surgeon PETRA OVIEDO, Leila Simpson Start 02/06/25 13:38:00 Stop 02/06/25 13:41:00 Anesthesia [...] Out Leila LAMBERT MD, Verified (If Participants Sia Monteiro RN Applicable) Morenita Carrillo Kendall R Time Out Complete [...] By: Sia Monteiro RN 02/06/25 13:46 Normal [facility] Main OR Preoperative Recordo n 02-06-2025 Main OR Preoperative Record Main OR Preoperative Record Holding Area Document Type FTURO Summary Primary Physician: Leila LAMBERT MD Finalized Date/Time: 02/06/25 13:25:40 Pt. Name: MEREDITH VILLATORO Jordan/Sex: 1960 Male Med Rec #: [id number] Physician: Leila LAMBERT MD Financial #: [id number] Pt. Type: O Room/Bed: / Admit/Disch: 02/06/25 [...] Complaints of Pain: No Skin Integrity Intact, [place], Warm, & Dry Vitals - EU Blood Pressure 137/68 Pulse 83 bpm Respirations 18 br/min SPO2 97 % Additional None Specimens Collected Last Modified By: Kerri Pires LPN 02/06/25 13:25:39 Finalized By: Kerri Pires LPN Document Signatures Signed By: Kerri Pires LPN 02/06/25 13:25 Normal [facility] Operative Reporton Operative Report Operative Report Patient: MEREDITH VILLATORO Age: 64 years Sex: Male : 1960 Associated Diagnoses: None Author: Leila LAMBERT MD Procedure Operative Information Details: Date/ Time: 02/06/2025 13:46:00. Pre-Op Dx: Hx of Prostate CA - Z85.46, Incomplete Bladder Emptying - R39.14. Post-Op Dx: Same. Anesthesia Type: Local. Procedure: Local Cystoscopy. Complications: None. Risks/Benefits/Inform ed Consent: Surgical risks, benefits, details of the [...] transurethral resection of prostate tumors under anesthesia.. Normal [facility] Comment on above: Result Comment: Elec tronically Signed By: PETRA OVIEDO, Leila Hurst.neema\Date and Time Signed: 02/06/25 13:48 EDT CNOVon 01-23-2025 CNOV Office Visit (RADTSA ) MEREDITH VILLATORO ([id number]) 1960 M Date Time Provider Department 01/23/25 2:30 PM Jhony LUX During your visit today, we recorded the following information about you: Temperature Pulse Respiration Blood pressure 97.2 degrees 94/minute 18/minute 102/68 Weight 104.2 kg Jhony Lux MD 01/30/2025 9:41 AM Signed Radiation Oncology - Follow Up Note PATIENT NAME: Meredith Villatoro PATIENT DIAGNOSIS: Prostate adenocarcinoma, initial PSA 2.0, biopsy Baldwyn score 4 + 4 = 8 (grade [...] Signed AUA= 20 Referring Provider: Jhony LUX [[id number]] Allergies As of Date: 01/23/2025 (No Known Allergies) Date Reviewed: 01/23/2025 Reviewed by: Sharon Ocampo RN - Fully Assessed Reason for Visit: Prostate Cancer [590] Primary Visit Diagnosis:Prostate cancer (HCC) [C61] Order(s):PSA (OUTSIDE) [2906518] Order #: [id number] PROSTATE-SPECIFIC ANTIGEN DIAGNOSTIC [SQPSA] Order #: [id number] FUTURE Prescriptions as of 01/30/2025 - mirabegron [...] Service: OFFICE/OUTPATIENT ESTABLISHED LOW MDM 20 MIN [35855] Additional E/M codes: VIS (more content not included)... Normal [facility] Ambulatory Visit Summaryon 0 01-15-2025 Ambulatory [...] AM EDT With: Where: [facility] [place] [address] [facility] [address] [place], [place] [address]- Wednesday 10:15 AM EDT With: Leila LAMBERT MD Where: [facility] [address] [facility] [place] [address]- You Need to Schedule the Following Appointments Follow Up with PETRA OVIEDO, AP Bautista When: Where: [facility] [address], [facility] [place] [address]- [phone] Medications What How Much When Instructions New ciprofloxacin (Cipro 500 mg Tab) 1 Tablets By Mouth Every day take one tab day before procedure and one tab after procedure Pickup at [facility] [id number] Unchanged mirabegron (Myrbetriq 50 mg oral tablet, [...] physician if questions or concerns Pharmacy Information [facility] [id number]: [address] [place], [place] [phone] Allergies No Known Medication Allergies Problems Ongoing [...] working properly. (more content not included)... Normal [facility] Urology Office/Clinic Noteon 01-15-2025 Urology Office/Clinic Note [...] - 0.5 MRI prostate w/wo con [place] [facility] [place] PI-RADS 4 and 5. MRI fusion [...] further evaluate. Pt willing to proceed. -Cont Marla wo changes -Will schedule cystoscopy. The risks [...] 01/15/2025 12:27:51. Follow-up With When Contact Information Leila LAMBERT MD, URL [facility] [address] [place] [phone] Additional Instructions: sched cysto, f/u in 6 [...] nodule Prostatitis (more content not included)... Normal [facility] Comment on above: Result Comment: Elec tronically Signed By: Leila LAMBERT MD\.br\Date and Time Signed: 01/15/25 12:27 EST\.br\Electronically Co-Signed By: Molly Murray\.br\Date and Time Co-Signed: 01/15/25 12:26 EST CHEMISTRYOrdered By: SYSTEM SYSTEM on 01-10-2025 Prostate specific Ag [Mass/Vol] 0.5 ng/mL Normal 0.1 - 3.5 ng/mL [employer] [facility] Comment on above: Interpretive Data: T he concentration of PSA determined by different manufacturers can vary due to differences in assay methods and reagent specificity. Values obtained from different assay methods cannot be used interchangeably. The methodology used for this result was chemiluminescence using [employer] Access Hybritech PSA reagent. PSA (OUTSIDE)on 01-10-2025 [facility] PSA Totalon 01-10-2025 Prostate specific Ag [Mass/Vol] 0.5 ng/mL Normal 0.1-3.5 [facility] Comment on above: Result Comment: The concentration of PSA determined by different manufacturers can vary due to differences in assay methods and reagent specificity. Values obtained from different assay methods cannot be used interchangeably. The methodology used for this result was chemiluminescence using [employer]'s Access Hybritech PSA reagent. Performed By: #### 1 [id number] ####[facility] [address] [place] [address] CBC AND AUTO DIFFon 01-08-20 25 ABSOLUTE BASOPHIL 0.0 X10E9/L Normal 0.0-0.2 [facility] Comment on above: Performed By: #### C EDU [facility], 3040-01, #### [facility] ([id number]) [address] [place] [address] 86321 ABSOLUTE NEUTROPHIL 3.1 X10E9/L Normal 1.5-6.6 [facility] Comment on above: Performed By: #### C EDU CMP, 3040-01, 80219-0 #### [facility] ([id number]) [address] [place] [address] 97207 Basophils/100 WBC (Bld) 0.8 % Normal [facility] Comment on above: Performed By: #### C EDU CMP, 9 #### [facility] ([id number]) [address] [place] [address] 00506 Eosinophils (Bld) [#/Vol] 0.2 10*3/uL Normal 0.0-0.4 [facility] Comment on above: Performed By: #### C JUSTIN SORENSEN, 3040-01, #### [facility] ([id number]) [address] [place] [address] 54315 Eosinophils/100 WBC (Bld) 4.5 % Normal [facility] Comment on above: Performed By: #### [place] SORENSEN [facility], 3040-01, #### [facility] ([id number]) [address] [place] [address] 43250 Erythrocyte distribution width (RBC) [Ratio] 13.2 % Normal 11.5-15.0 [facility] Comment on above: Performed By: #### [place] SORENSNE CMP, 3040-01, #### [facility] ([id number]) [address] [place] [address] 18782 Hematocrit (Bld) [Volume fraction] 39.2 % Normal 39-49 [facility] Comment on above: Performed By: #### [place] SORENSEN [facility], 3040-01, #### [facility] ([id number]) [address] [place] [address] 99530 Hemoglobin (Bld) [Mass/Vol] 13.6 g/dL Normal 13.0-17.0 [facility] Comment on above: Performed By: #### [place] SORENSEN CMP, 3040-01, #### [facility] ([id number]) [address] [place] [address] 92008 Lymphocytes (Bld) [#/Vol] 0.8 10*3/uL Low 1.0-3.5 [facility] Comment on above: Performed By: #### [place] SORENSEN CMP, 3040-01, #### [facility] ([id number]) [address] [place] [address] 54463 Lymphocytes/100 WBC (Bld) 17.1 % Normal [facility] Comment on above: Performed By: #### [place] SORENSEN CMP, 3040-01, #### [facility] ([id number]) [address] [place] [address] 96800 MCH (RBC) [Entitic mass] 31.1 pg Normal 27-34 [facility] Comment on above: Performed By: #### [place] SORENSEN CMP, 3040-01, #### [facility] ([id number]) [address] [place] [address] 04436 MCHC (RBC) [Mass/Vol] 34.6 g/dL Normal 32-36 [facility] Comment on above: Performed By: #### [place] SORENSEN CMP, 3040-01, #### [facility] ([id number]) [address] [place] [address] 74828 MCV (RBC) [Entitic vol] 90 fL Normal 80-100 [facility] Comment on above: Performed By: #### [place] SORENSEN CMP, 3040-01, #### [facility] ([id number]) [address] [place] [address] 52962 Monocytes (Bld) [#/Vol] 0.3 10*3/uL Normal 0-0.9 [facility] Comment on above: Performed By: #### [place] SORENSEN, CMP, 3040-01, #### [facility] ([id number]) [address] [place] [address] 43610 Monocytes/100 WBC (Bld) 7.8 % Normal [facility] Comment on above: Performed By: #### [place] SORENSEN CMP, 3040-01, #### [facility] ([id number]) [address] [place] [address] 76593 Neutrophils/100 WBC (Bld) 69.8 % Normal [facility] Comment on above: Performed By: #### C EDU, CMP, 03, 95653-5 #### [facility] ([id number]) [address] [place] [address] 88194 Platelet mean volume (Bld) [Entitic vol] 7.6 fL Normal 7-12 [facility] Comment on above: Performed By: #### C EDU, CMP, 3040-01, #### [facility] ([id number]) [address] [place] [address] 26805 Platelets (Bld) [#/Vol] 176 10*3/uL Normal 150-450 [facility] Comment on above: Performed By: #### [place] SORENSEN, CMP, 3040-01, #### [facility] ([id number]) [address] [place] [address] 19928 RBC COUNT 4.36 X10E12/L Normal 4.10-5.70 [facility] Comment on above: Performed By: #### [place] SORENSEN, CMP, 3040-01, 57194-6 #### [facility] ([id number]) [address] [place] [address] 26929 WBC (Bld) [#/Vol] 4.4 10*3/uL Normal 4.0-11.0 [facility] Comment on above: Performed By: #### C BCA, CMP, 3, #### [facility] ([id number]) [address] [place] [address] 16564 COMPREHENSIVE METABOLIC PANE Jay Jay 01-08-2025 Albumin [Mass/Vol] 3.5 g/dL Normal 3.2-5.3 [facility] Comment on above: Performed By: #### [place] BCA, CMP, 3040-01, #### [facility] ([id number]) [address] [place] [address] 75741 ALP [Catalytic activity/Vol] 44 U/L Normal 39-130 [facility] Comment on above: Performed By: #### C BCA, CMP, 0-3, #### [facility] ([id number]) [address] [place] [address] 64341 ALT [Catalytic activity/Vol] 18 U/L Normal 0-40 [facility] Comment on above: Performed By: #### C BCA, CMP, 3, #### [facility] ([id number]) [address] [place] [address] 81370 Anion gap [Moles/Vol] 8 mmol/L Normal 5-15 [facility] Comment on above: Performed By: #### C BCA, CMP, 3040-01, #### [facility] ([id number]) [address] [place] [address] 90298 AST [Catalytic activity/Vol] 18 U/L Normal 0-41 [facility] Comment on above: Performed By: #### C BCA, CMP, 3040-01, #### [facility] ([id number]) [address] [place] [address] 59373 Bilirubin [Mass/Vol] 0.8 mg/dL Normal 0.3-1.2 [facility] Comment on above: Performed By: #### C BCA, CMP, 3, #### [facility] ([id number]) [address] [place] [address] 34061 Calcium [Mass/Vol] 8.7 mg/dL Normal 8.5-10.5 [facility] Comment on above: Performed By: #### C BCA, CMP, 3, #### [facility] ([id number]) [address] [place] [address] 70108 Chloride [Moles/Vol] 107 mmol/L Normal 98-109 [facility] Comment on above: Performed By: #### C JUSTIN SORENSEN, 3040-01, 62915-1 #### [facility] ([id number]) [address] [place] [address] CO2 [Moles/Vol] 22 mmol/L Normal 22-32 [facility] Comment on above: Performed By: #### C JUSTIN SORENSEN, 3040-01, 23226-3 #### [facility] ([id number]) [address] [place] [address] 97140 Creatinine [Mass/Vol] 1.08 mg/dL Normal 0.70-1.20 [facility] Comment on above: Result Comment: METH OD TRACEABLE TO IDMS STANDARD Performed By: #### C JUSTIN SORENSEN, 3040-01, #### [facility] ([id number]) [address] [place] [address] 86142 GFR/1.73 sq M.predicted among non-blacks MDRD (S/P/Bld) [Vol rate/Area] 76 mL/min/{1.73_m2} Normal >59 [facility] Comment on above: Result Comment: Reported eGFR is based on the CKD-EPI 2020 equation that does not use a race coefficient. Performed By: #### C JUSTIN SORENSEN, 3040-01, 63704-3 #### [facility] ([id number]) [address] [place] [address] 85429 Glucose [Mass/Vol] 118 mg/dL High 65-99 [facility] Comment on above: Performed By: #### C JUSTIN SORENSEN, 3040-01, 00648-3 #### [facility] ([id number]) [address] [place] [address] 29079 Potassium [Moles/Vol] 3.7 mmol/L Normal 3.5-5.0 [facility] Comment on above: Performed By: #### C BCA, CMP, 3, 26692-1 #### [facility] ([id number]) [address] [place] [address] 53333 Protein [Mass/Vol] 6.3 g/dL Normal 6.0-8.0 [facility] Comment on above: Performed By: #### C BCA, CMP, 3040-01, #### [facility] ([id number]) [address] [place] [address] 32112 Sodium [Moles/Vol] 137 mmol/L Normal 134-146 [facility] Comment on above: Performed By: #### C BCA, CMP, 3040-01, #### [facility] ([id number]) [address] [place] [address] 78143 Urea nitrogen [Mass/Vol] 15 mg/dL Normal 5-27 [facility] Comment on above: Performed By: #### C BCA, CMP, 3040-01, 48595-7 #### [facility] ([id number]) [address] [place] [address] 67783 MAGNESIUMon 01-08-2025 Magnesium [Mass/Vol] 2.2 mg/dL Normal 1.8-2.6 [facility] Comment on above: Performed By: #### C BCA, CMP, 3040-01, #### [facility] ([id number]) [address] [place] [address] 91099 CBC AND AUTO DIFFon 01-07-20 25 ABSOLUTE BASOPHIL 0.0 X10E9/L Normal 0.0-0.2 [facility] Comment on above: Performed By: #### C BCA, CMP, 3, #### [facility] ([id number]) [address] [place] [address] 74026 ABSOLUTE NEUTROPHIL 4.1 X10E9/L Normal 1.5-6.6 [facility] Comment on above: Performed By: #### C JUSTIN SORENSEN, 3040-01, #### [facility] ([id number]) [address] [place] [address] 85906 Basophils/100 WBC (Bld) 0.8 % Normal [facility] Comment on above: Performed By: #### [place] SORENSEN CMP, 3040-01, #### [facility] ([id number]) [address] [place] [address] 81216 Eosinophils (Bld) [#/Vol] 0.2 10*3/uL Normal 0.0-0.4 [facility] Comment on above: Performed By: #### [place]re[place] SORENSEN CMP, 3040-01, #### [facility] ([id number]) [address] [place] [address] 70141 Eosinophils/100 WBC (Bld) 3.6 % Normal [facility] Comment on above: Performed By: #### [place] SORENSEN [facility], 3040-01, #### [facility] ([id number]) [address] [place] [address] 96559 Erythrocyte distribution width (RBC) [Ratio] 13.5 % Normal 11.5-15.0 [facility] Comment on above: Performed By: #### C EDU CMP, 3040-01, #### [facility] ([id number]) [address] [place] [address] 93387 Hematocrit (Bld) [Volume fraction] 39.2 % Normal 39-49 [facility] Comment on above: Performed By: #### Bere[place] SORENSEN CMP, 3040-01, #### [facility] ([id number]) [address] [place] [address] 08110 Hemoglobin (Bld) [Mass/Vol] 13.7 g/dL Normal 13.0-17.0 [facility] Comment on above: Performed By: #### C JUSTIN SORENSEN, 3040-01, #### [facility] ([id number]) [address] [place] [address] 77852 Lymphocytes (Bld) [#/Vol] 0.6 10*3/uL Low 1.0-3.5 [facility] Comment on above: Performed By: #### Bere[place] SORENSEN CMP, 3040-01, #### [facility] ([id number]) [address] [place] [address] 04862 Lymphocytes/100 WBC (Bld) 12.0 % Normal [facility] Comment on above: Performed By: #### Bere[place] SORENSEN CMP, 3040-01, #### [facility] ([id number]) [address] [place] [address] 17422 MCH (RBC) [Entitic mass] 31.6 pg Normal 27-34 [facility] Comment on above: Performed By: #### [place]re[place] SORENSEN CMP, 3040-01, #### [facility] ([id number]) [address] [place] [address] 08394 MCHC (RBC) [Mass/Vol] 35.0 g/dL Normal 32-36 [facility] Comment on above: Performed By: #### Bereket SORENSEN CMP, 3040-01, #### [facility] ([id number]) [address] [place] [address] 28179 MCV (RBC) [Entitic vol] 90 fL Normal 80-100 [facility] Comment on above: Performed By: #### Bereket SORENSEN CMP, 3040-01, #### [facility] ([id number]) [address] [place] [address] 05052 Monocytes (Bld) [#/Vol] 0.4 10*3/uL Normal 0-0.9 [facility] Comment on above: Performed By: #### [place] SORENSEN CMP, 3040-01, #### [facility] ([id number]) [address] [place] [address] 62822 Monocytes/100 WBC (Bld) 7.6 % Normal [facility] Comment on above: Performed By: #### [place] SORENSEN, CMP, 3040-01, #### [facility] ([id number]) [address] [place] [address] 45270 Neutrophils/100 WBC (Bld) 76.0 % Normal [facility] Comment on above: Performed By: #### Bere[place] SORENSEN CMP, 3040-01, #### [facility] ([id number]) [address] [place] [address] [place] [address] Platelet mean volume (Bld) [Entitic vol] 7.8 fL Normal 7-12 [facility] Comment on above: Performed By: #### [place] SORENSEN, CMP, 3040-01, #### [facility] ([id number]) [address] [place] [address] 09375 Platelets (Bld) [#/Vol] 175 10*3/uL Normal 150-450 [facility] Comment on above: Performed By: #### [place] SORENSEN, CMP, 3040-01, #### [facility] ([id number]) [address] [place] [address] 32438 RBC COUNT 4.33 X10E12/L Normal 4.10-5.70 [facility] Comment on above: Performed By: #### [place] SORENSEN, CMP, 3040-01, #### [facility] ([id number]) [address] [place] [address] 55625 WBC (Bld) [#/Vol] 5.3 10*3/uL Normal 4.0-11.0 [facility] Comment on above: Performed By: #### C BCA, CMP, 3, #### [facility] ([id number]) [address] [place] [address] 95427 COMPREHENSIVE METABOLIC PANE Jay Jay 01-07-2025 Albumin [Mass/Vol] 3.5 g/dL Normal 3.2-5.3 [facility] Comment on above: Performed By: #### C BCA, CMP, 3040-01, #### [facility] ([id number]) [address] [place] [address] 91977 ALP [Catalytic activity/Vol] 47 U/L Normal 39-130 [facility] Comment on above: Performed By: #### C BCA, CMP, 3040-01, #### [facility] ([id number]) [address] [place] [address] 50918 ALT [Catalytic activity/Vol] 19 U/L Normal 0-40 [facility] Comment on above: Performed By: #### C BCA, CMP, 3040-01, #### [facility] ([id number]) [address] [place] [address] 81722 Anion gap [Moles/Vol] 7 mmol/L Normal 5-15 [facility] Comment on above: Performed By: #### C BCA, CMP, 3040-01, #### [facility] ([id number]) [address] [place] [address] 45088 AST [Catalytic activity/Vol] 18 U/L Normal 0-41 [facility] Comment on above: Performed By: #### C BCA, CMP, 3040-01, #### [facility] ([id number]) [address] [place] [address] 69144 Bilirubin [Mass/Vol] 1.2 mg/dL Normal 0.3-1.2 [facility] Comment on above: Performed By: #### C BCA, CMP, 03, #### [facility] ([id number]) [address] [place] [address] 74163 Calcium [Mass/Vol] 8.9 mg/dL Normal 8.5-10.5 [facility] Comment on above: Performed By: #### C BCA, CMP, 3, #### [facility] ([id number]) [address] [place] [address] 41984 Chloride [Moles/Vol] 103 mmol/L Normal 98-109 [facility] Comment on above: Performed By: #### C BCA, CMP, 3, #### [facility] ([id number]) [address] [place] [address] 56254 CO2 [Moles/Vol] 25 mmol/L Normal 22-32 [facility] Comment on above: Performed By: #### C BCA, CMP, 3, #### [facility] ([id number]) [address] [place] [address] 95369 Creatinine [Mass/Vol] 1.01 mg/dL Normal 0.70-1.20 [facility] Comment on above: Result Comment: METH OD TRACEABLE TO IDMS STANDARD Performed By: #### C BCA, CMP, 3, 18963-9 #### [facility] ([id number]) [address] [place] [address] 01077 GFR/1.73 sq M.predicted among non-blacks MDRD (S/P/Bld) [Vol rate/Area] 83 mL/min/{1.73_m2} Normal >59 [facility] Comment on above: Result Comment: Reported eGFR is based on the CKD-EPI 2020 equation that does not use a race coefficient. Performed By: #### C JUSTIN SORENSEN, 3040-01, 16455-8 #### [facility] ([id number]) [address] [place] [address] 46444 Glucose [Mass/Vol] 98 mg/dL Normal 65-99 [facility] Comment on above: Performed By: #### C EDU [facility], 3040-01, #### [facility] ([id number]) [address] [place] [address] 18399 Potassium [Moles/Vol] 3.9 mmol/L Normal 3.5-5.0 [facility] Comment on above: Performed By: #### C EDU [facility], 3040-01, 04344-0 #### [facility] ([id number]) [address] [place] [address] 55247 Protein [Mass/Vol] 6.3 g/dL Normal 6.0-8.0 [facility] Comment on above: Performed By: #### C EDU [facility], 3040-01, 93919-3 #### [facility] ([id number]) [address] [place] [address] 41681 Sodium [Moles/Vol] 135 mmol/L Normal 134-146 [facility] Comment on above: Performed By: #### C EDU CMP, 3040-01, 27031-7 #### [facility] ([id number]) [address] [place] [address] 72690 Urea nitrogen [Mass/Vol] 12 mg/dL Normal 5-27 [facility] Comment on above: Performed By: #### C EDU CMP, 3040-01, #### [facility] ([id number]) [address] [place] [address] 26539 HGBon 01-07-2025 Hematocrit (Bld) [Volume fraction] 39.3 % Normal 39-49 [facility] Comment on above: Performed By: #### C EDU, CMP, 0-3, 45856-0 #### [facility] ([id number]) [address] [place] [address] 87485 Hemoglobin (Bld) [Mass/Vol] 13.7 g/dL Normal 13.0-17.0 [facility] Comment on above: Performed By: #### C EDU, CMP, 3, #### [facility] ([id number]) [address] [place] [address] 74803 MAGNESIUMon 01-07-2025 Magnesium [Mass/Vol] 2.1 mg/dL Normal 1.8-2.6 [facility] Comment on above: Performed By: #### C EDU, CMP, 3, 14462-3 #### [facility] ([id number]) [address] [place] [address] 95479 CBC AND AUTO DIFFon 01-06-20 25 ABSOLUTE BASOPHIL 0.0 X10E9/L Normal 0.0-0.2 [facility] Comment on above: Performed By: #### C KYLEE, CBCA, 85957-6 ####[facility] ([id number])[address] [place] [address] 66548#### 65864-3 ####[facility] ([id number])[address] [facility], [address] [place] [address] 28552 ABSOLUTE NEUTROPHIL 3.7 X10E9/L Normal 1.5-6.6 [facility] Comment on above: Performed By: #### C KYLEE, CBCA, 97179-7 ####[facility] ([id number])[address] [place] [address] 81708#### 70050-6 ####[facility] ([id number])[address], [address], [place] [address] Basophils/100 WBC (Bld) 0.9 % Normal [facility] Comment on above: Performed By: #### Bereket PICHARDO, CBCA, ####[facility] ([id number])[address] [place] [address] 60461#### 38493-7 ####[facility] ([id number])[address], [address] [place] [address] 61585 Eosinophils (Bld) [#/Vol] 0.1 10*3/uL Normal 0.0-0.4 [facility] Comment on above: Performed By: #### Bereket PICHARDO, CBCA, ####[facility] ([id number])[address] [place] [address] 77164#### 01425-1 ####[facility] ([id number])[address] [address] [place] [address] 50781 Eosinophils/100 WBC (Bld) 2.9 % Normal [facility] Comment on above: Performed By: #### Bereket PICHARDO, CBCA, ####[facility] ([id number])[address] [place] [address] 81039#### 86520-3 ####[facility] ([id number])[address] [address] [place] [address] 98927 Erythrocyte distribution width (RBC) [Ratio] 13.5 % Normal 11.5-15.0 [facility] Comment on above: Performed By: #### C KYLEE, CBCA, ####[facility] ([id number])[address] [place] [address] 83625#### 19257-0 ####[facility] ([id number])[address], [address], [place] [address] Hematocrit (Bld) [Volume fraction] 37.7 % Low 39-49 [facility] Comment on above: Performed By: #### C KYLEE, CBCA, 83394-6 ####[facility] ([id number])[address] [place] [address] 85263#### 41117-2 ####[facility] ([id number])[address], [address], [place] [address] Hemoglobin (Bld) [Mass/Vol] 13.1 g/dL Normal 13.0-17.0 [facility] Comment on above: Performed By: #### C KYLEE, CBCA, ####[facility] ([id number])[address] [place] [address] 73286#### 83619-6 ####[facility] ([id number])[address], [address] [place] [address] 09532 Lymphocytes (Bld) [#/Vol] 0.8 10*3/uL Low 1.0-3.5 [facility] Comment on above: Performed By: #### Bereket PICHARDO, CBCA, ####[facility] ([id number])[address] [place] [address] 67224#### 71038-2 ####[facility] ([id number])[address], [address] [place] [address] 04020 Lymphocytes/100 WBC (Bld) 15.9 % Normal [facility] Comment on above: Performed By: #### C KYLEE, CBCA, ####[facility] ([id number])[address] [place] [address] 59486#### 87253-8 ####[facility] ([id number])[address], [address], [place] [address] MCH (RBC) [Entitic mass] 31.4 pg Normal 27-34 [facility] Comment on above: Performed By: #### C KYLEE, CBCA, ####[facility] ([id number])[address] [place] [address] 23677#### 76480-6 ####[facility] ([id number])[address], [address], [place] [address] MCHC (RBC) [Mass/Vol] 34.7 g/dL Normal 32-36 [facility] Comment on above: Performed By: #### C KYLEE, CBCA, ####[facility] ([id number])[address] [place] [address] 80024#### 96522-5 ####[facility] ([id number])[address], [address], [place] [address] MCV (RBC) [Entitic vol] 91 fL Normal 80-100 [facility] Comment on above: Performed By: #### C KYLEE, CBCA, ####[facility] ([id number])[address] [place] [address] 13785#### 28080-9 ####[facility] ([id number])[address], [address], [place] [address] Monocytes (Bld) [#/Vol] 0.4 10*3/uL Normal 0-0.9 [facility] Comment on above: Performed By: #### Bereket PICHARDO, CBCA, ####[facility] ([id number])[address] [place] [address] 94617#### 63722-8 ####[facility] ([id number])[address], [address], [place] [address] Monocytes/100 WBC (Bld) 7.7 % Normal [facility] Comment on above: Performed By: #### Bereket PICHARDO, CBCA, ####[facility] ([id number])[address] [place] [address] 33672#### 40905-8 ####[facility] ([id number])[address] [facility], [address] [place] [address] 43159 Neutrophils/100 WBC (Bld) 72.6 % Normal [facility] Comment on above: Performed By: #### C KYLEE, CBCA, ####[facility] ([id number])[address] [place] [address] 80299#### 88142-5 ####[facility] ([id number])[address] [facility], [address] [address] Platelet mean volume (Bld) [Entitic vol] 7.8 fL Normal 7-12 [facility] Comment on above: Performed By: #### C KYLEE, CBCA, ####[facility] ([id number])[address] [place] [address] 06467#### 49605-1 ####[facility] ([id number])[address] [address] Platelets (Bld) [#/Vol] 153 10*3/uL Normal 150-450 [facility] Comment on above: Performed By: #### C KYLEE, CBCA, ####[facility] ([id number])[address] [place] [address] 29989#### 83053-6 ####[facility] ([id number])[address] [facility], [address] [place] [address] 13774 RBC COUNT 4.16 X10E12/L Normal 4.10-5.70 [facility] Comment on above: Performed By: #### C MP, CBCA, ####[facility] ([id number])[address] [place] [address] 43896#### 80901-4 ####[facility] ([id number])[address], [address] [place] [address] 89042 WBC (Bld) [#/Vol] 5.1 10*3/uL Normal 4.0-11.0 [facility] Comment on above: Performed By: #### C KYLEE CBCA, 20162-2 ####[facility] ([id number])[address] [place] [address] 65374#### 70414-6 ####[facility] ([id number])[address] [facility], [address] [place] [address] 85288 COMPREHENSIVE METABOLIC PANE [place] 01-06-2025 Albumin [Mass/Vol] 3.5 g/dL Normal 3.2-5.3 [facility] Comment on above: Performed By: #### Bereket PICHARDO, CBCA, 82546-4 ####[facility] ([id number])[address] [place] [address] 18729#### 20909-5 ####[facility] ([id number])[address] [facility], [address] [place] [address] 14557 ALP [Catalytic activity/Vol] 45 U/L Normal 39-130 [facility] Comment on above: Performed By: #### Bereket PICHARDO CBCA, 14469-0 ####[facility] ([id number])[address] [place] [address] 24434#### 80014-7 ####[facility] ([id number])[address], [address] [place] [address] 34161 ALT [Catalytic activity/Vol] 14 U/L Normal 0-40 [facility] Comment on above: Performed By: #### Bereket PICHARDO, CBCA, ####[facility] ([id number])[address] [place] [address] 19529#### 35268-2 ####[facility] ([id number])[address] [facility], [address] [place] [address] 12391 Anion gap [Moles/Vol] 7 mmol/L Normal 5-15 [facility] Comment on above: Performed By: #### C KYLEE CBCA, 53428-1 ####[facility] ([id number])[address] [place] [address] 44973#### 30857-0 ####[facility] ([id number])[address] [place] [address], [address] [place] [address] 52751 AST [Catalytic activity/Vol] 17 U/L Normal 0-41 [facility] Comment on above: Performed By: #### C KYLEE CBCA, 24942-7 ####[facility] ([id number])[address] [place] [address] 18600#### 81248-3 ####[facility] ([id number])[address] [facility], [address] [place] [address] 76299 Bilirubin [Mass/Vol] 1.0 mg/dL Normal 0.3-1.2 [facility] Comment on above: Performed By: #### Bereket PICHARDO CBCA, ####[facility] ([id number])[address] [place] [address] 78766#### 04128-9 ####[facility] ([id number])[address] [facility], [address], [place] [address] Calcium [Mass/Vol] 8.8 mg/dL Normal 8.5-10.5 [facility] Comment on above: Performed By: #### Bereket PICHARDO, CBCA, ####[facility] ([id number])[address] [place] [address] 23273#### 59960-8 ####[facility] ([id number])[address], [address] [place] [address] 84478 Chloride [Moles/Vol] 105 mmol/L Normal 98-109 [facility] Comment on above: Performed By: #### C MK PICHARDOA, 81638-2 ####[facility] ([id number])[address] [place] [address] 20812#### 13163-3 ####[facility] ([id number])[address] [facility], [address] [place] [address] 22463 CO2 [Moles/Vol] 26 mmol/L Normal 22-32 [facility] Comment on above: Performed By: #### C ELKE PICHARDO, 39131-3 ####[facility] ([id number])[address] [place] [address] 23842#### 61048-5 ####[facility] ([id number])[address] [facility], [address] [place] [address] 07689 Creatinine [Mass/Vol] 1.08 mg/dL Normal 0.70-1.20 [facility] Comment on above: Result Comment: METH OD TRACEABLE TO IDMS STANDARD Performed By: #### C ELKE PICHARDO, 58945-0 ####[facility] ([id number])[address] [place] [address] 66406#### 25170-3 ####[facility] ([id number])[address], [address] [place] [address] 42299 GFR/1.73 sq M.predicted among non-blacks MDRD (S/P/Bld) [Vol rate/Area] 76 mL/min/{1.73_m2} Normal >59 [facility] Comment on above: Result Comment: Reported eGFR is based on the CKD-EPI 2020 equation that does not use a race coefficient. Performed By: #### C MP, CBCA, 84341-0 ####[facility] ([id number])[address] [place] [address] 29086#### 02905-1 ####[facility] ([id number])[address], [address], [place] [address] Glucose [Mass/Vol] 113 mg/dL High 65-99 [facility] Comment on above: Performed By: #### Bereket PICHARDO, CBCA, 41114-9 ####[facility] ([id number])[address] [place] [address] 40300#### 24125-7 ####[facility] ([id number])[address], [address] [place] [address] Potassium [Moles/Vol] 4.1 mmol/L Normal 3.5-5.0 [facility] Comment on above: Performed By: #### Bereket PICHARDO, CBCA, 68381-9 ####[facility] ([id number])[address] [place] [address] 61136#### 74794-5 ####[facility] ([id number])[address], [address], [place] [address] Protein [Mass/Vol] 6.2 g/dL Normal 6.0-8.0 [facility] Comment on above: Performed By: #### Bereket PICHARDO, CBCA, 19544-8 ####[facility] ([id number])[address] [place] [address] 08577#### 31680-8 ####[facility] ([id number])[address], [address], [place] [address] Sodium [Moles/Vol] 138 mmol/L Normal 134-146 [facility] Comment on above: Performed By: #### Bereket PICHARDO, CBCA, ####[facility] ([id number])[address] [place] [address] 30260#### 87145-3 ####[facility] ([id number])[address] [place] [address], [address] [address] Urea nitrogen [Mass/Vol] 15 mg/dL Normal 5-27 [facility] Comment on above: Performed By: #### C MP, CBCA, 50159-8 ####[facility] ([id number])[address] [place] [address] 16223#### 84689-1 ####[facility] ([id number])[address] [place] [address], [address] [address] GI PANELon 01-06-2025 Gastrointestinal pathogens DNA and [...] SAPOVIRUS Not detected (qualifier value) Normal NDET [facility] Comment on above: Performed By: #### C BCA, CMP, 3040-3, 90903-2 #### [facility] ([id number]) [address] [place] [address] 08826 HGBon 01-06-2025 Hematocrit (Bld) [Volume fraction] 39.9 % Normal 39-49 [facility] Comment on above: Performed By: #### C EDU [facility], 3039-3, 46866-0 #### [facility] ([id number]) [address] [place] [address] 87960 Hemoglobin (Bld) [Mass/Vol] 13.8 g/dL Normal 13.0-17.0 [facility] Comment on above: Performed By: #### C JUSTIN SORENSEN, 3, #### [facility] ([id number]) [address] [place] [address] 63225 Hematocrit (Bld) [Volume fraction] 39.7 % Normal 39-49 [facility] Comment on above: Performed By: #### C JUSTIN SORENSEN, 3, 12131-4 #### [facility] ([id number]) [address] [place] [address] 04784 Hemoglobin (Bld) [Mass/Vol] 13.5 g/dL Normal 13.0-17.0 [facility] Comment on above: Performed By: #### C EDU [facility], 3040-01, 63133-8 #### [facility] ([id number]) [address] [place] [address] 04895 Hematocrit (Bld) [Volume fraction] 39.8 % Normal 39-49 [facility] Comment on above: Performed By: #### H H ####[facility] ([id number])[address] [place] [address] 72171 Hemoglobin (Bld) [Mass/Vol] 13.9 g/dL Normal 13.0-17.0 [facility] Comment on above: Performed By: #### H H ####[facility] ([id number])[address] [place] [address] 14416 Lipid 1996 panelon 5 Cholesterol [Mass/Vol] 116 mg/dL Low 150-200 [facility] Comment on above: Performed By: #### [place], [address]-0 ####[facility] ([id number])[address] [place] [address] 61444#### 87136-6 ####[facility] ([id number])[address] [facility], [address] [place] [address] 48790 Cholesterol in HDL [Mass/Vol] 32 mg/dL Low >39 [facility] Comment on above: Result Comment: HDL <40 mg/dL - High Risk HDL > or = 40mg/dL- Desirable HDL >60 mg/dL - Negative Risk Performed By: #### Bereket PICHARDO, ELKE, 31595-8 ####[facility] ([id number])[address] [place] [address] 93672#### 43014-3 ####[facility] ([id number])[address] [address] Cholesterol in LDL [Mass/Vol] 65 mg/dL Normal <130 [facility] Comment on above: Result Comment: LDL <100 mg/dL - Desirable LDL >160 mg/dL - High Risk Performed By: #### [place], 02033-9 ####[facility] ([id number])[address] [place] [address] 33911#### 82065-1 ####[facility] ([id number])[address], [address] [place] [address] 17866 Cholesterol in VLDL [Mass/Vol] 19 mg/dL Normal 0-30 [facility] Comment on above: Performed By: #### C MP, CBCA, 08123-6 ####[facility] ([id number])[address] [place] [address] 47045#### 21808-2 ####[facility] ([id number])[address] [facility], [address] [place] [address] 967[address] CHOLESTEROL:HDL 3.6 Normal 1.0-5.0 [facility] Comment on above: Performed By: #### C MP, CBCA, 56011-7 ####[facility] ([id number])[address] [place] [address] 22030#### 70832-7 ####[facility] ([id number])[address] [facility], [address] [place] [address] 32761 Triglyceride [Mass/Vol] 97 mg/dL Normal 27-150 [facility] Comment on above: Performed By: #### C KYLEE, CBCA, 34536-7 ####[facility] ([id number])[address] [place] [address] 57375#### 85396-4 ####[facility] ([id number])[address] [facility], [address] [place] [address]59 MAGNESIUMon 01-06-2025 Magnesium [Mass/Vol] 2.1 mg/dL Normal 1.8-2.6 [facility] Comment on above: Performed By: #### C MP, CBCA, 64940-4 ####[facility] ([id number])[address] [place] [address]#### 54476-0 ####[facility] ([id number])[address] [facility], [address] [place] [address] 98027 CBC AND AUTO DIFFon 01-05-20 25 ABSOLUTE BASOPHIL 0.0 X10E9/L Normal 0.0-0.2 [facility] Comment on above: Performed By: #### C EDU CMP, 3040-01 #### [facility] ([id number]) [address] [place] [address]33 ABSOLUTE NEUTROPHIL 4.9 X10E9/L Normal 1.5-6.6 [facility] Comment on above: Performed By: #### Bereket SORENSEN, CMP, 3040-01 #### [facility] ([id number]) [address] [place] [address] 51428 Basophils/100 WBC (Bld) 0.6 % Normal [facility] Comment on above: Performed By: #### Bereket SORENSEN CMP, 3040-01 #### [facility] ([id number]) [address] [place] [address] 59067 Eosinophils (Bld) [#/Vol] 0.1 10*3/uL Normal 0.0-0.4 [facility] Comment on above: Performed By: #### Bereket SORENSEN, CMP, 3040-01 #### [facility] ([id number]) [address] [place] [address] 33396 Eosinophils/100 WBC (Bld) 2.1 % Normal [facility] Comment on above: Performed By: #### Bereket SORENSEN, CMP, 3040-01 #### [facility] ([id number]) [address] [place] [address] 34903 Erythrocyte distribution width (RBC) [Ratio] 13.7 % Normal 11.5-15.0 [facility] Comment on above: Performed By: #### Bereket SORENSEN, CMP, 3040-01 #### [facility] ([id number]) [address] [place] [address] 09168 Hematocrit (Bld) [Volume fraction] 42.1 % Normal 39-49 [facility] Comment on above: Performed By: #### Bereket SORENSEN, CMP, 3039-3 #### [facility] ([id number]) [address] [place] [address] 86856 Hemoglobin (Bld) [Mass/Vol] 14.6 g/dL Normal 13.0-17.0 [facility] Comment on above: Performed By: #### Bereket SORENSEN CMP, 3039-3 #### [facility] ([id number]) [address] [place] [address] 12908 Lymphocytes (Bld) [#/Vol] 0.7 10*3/uL Low 1.0-3.5 [facility] Comment on above: Performed By: #### Bereket SORENSEN CMP, 3 #### [facility] ([id number]) [address] [place] [address] 83759 Lymphocytes/100 WBC (Bld) 11.5 % Normal [facility] Comment on above: Performed By: #### Bereket SORENSEN CMP, 3 #### [facility] ([id number]) [address] [place] [address] 04307 MCH (RBC) [Entitic mass] 31.2 pg Normal 27-34 [facility] Comment on above: Performed By: #### Bereket SORENSEN [facility], 3 #### [facility] ([id number]) [address] [place] [address] 36454 MCHC (RBC) [Mass/Vol] 34.8 g/dL Normal 32-36 [facility] Comment on above: Performed By: #### Bereket SORENSEN CMP, 3 #### [facility] ([id number]) [address] [place] [address] 79370 MCV (RBC) [Entitic vol] 90 fL Normal 80-100 [facility] Comment on above: Performed By: #### Bereket SORENSEN CMP, 3039-3 #### [facility] ([id number]) [address] [place] [address] 88063 Monocytes (Bld) [#/Vol] 0.4 10*3/uL Normal 0-0.9 [facility] Comment on above: Performed By: #### Bereket SORENSEN CMP, 3040-3 #### [facility] ([id number]) [address] [place] [address] 56092 Monocytes/100 WBC (Bld) 6.5 % Normal [facility] Comment on above: Performed By: #### Bereket SORENSEN CMP, 3039-3 #### [facility] ([id number]) [address] [place] [address] 61827 Neutrophils/100 WBC (Bld) 79.3 % Normal [facility] Comment on above: Performed By: #### Bereket SORENSEN CMP, 3040-01 #### [facility] ([id number]) [address] [place] [address] 22695 Platelet mean volume (Bld) [Entitic vol] 7.9 fL Normal 7-12 [facility] Comment on above: Performed By: #### Bereket SORENSEN CMP, 3040-01 #### [facility] ([id number]) [address] [place] [address] 80452 Platelets (Bld) [#/Vol] 184 10*3/uL Normal 150-450 [facility] Comment on above: Performed By: #### Bereket SORENSEN CMP, 3039-3 #### [facility] ([id number]) [address] [place] [address] [place] [address] RBC COUNT 4.69 X10E12/L Normal 4.10-5.70 [facility] Comment on above: Performed By: #### Bereket SORENSEN CMP, 3039-3 #### [facility] ([id number]) [address] [place] [address] 37909 WBC (Bld) [#/Vol] 6.2 10*3/uL Normal 4.0-11.0 [facility] Comment on above: Performed By: #### C BCA, CMP, 3039-3 #### [facility] ([id number]) [address] [place] [address] 65596 COMPREHENSIVE METABOLIC PANE Jay Jay 01-05-2025 Albumin [Mass/Vol] 4.2 g/dL Normal 3.2-5.3 [facility] Comment on above: Performed By: #### C BCA, CMP, 3039-3 ####[facility] ([id number])[address] [place] [address] [place] [address] ALP [Catalytic activity/Vol] 54 U/L Normal 39-130 [facility] Comment on above: Performed By: #### C BCA, CMP, 3039-3 ####[facility] ([id number])[address] [place] [address] 53864 ALT [Catalytic activity/Vol] 19 U/L Normal 0-40 [facility] Comment on above: Performed By: #### C BCA, CMP, 3039-3 ####[facility] ([id number])[address] [place] [address] 55733 Anion gap [Moles/Vol] 7 mmol/L Normal 5-15 [facility] Comment on above: Performed By: #### C BCA, CMP, 3039-3 ####[facility] ([id number])[address] [place] [address] 71016 AST [Catalytic activity/Vol] 20 U/L Normal 0-41 [facility] Comment on above: Performed By: #### C BCA, CMP, 3039-3 ####[facility] ([id number])[address] [place] [address] 32296 Bilirubin [Mass/Vol] 0.6 mg/dL Normal 0.3-1.2 [facility] Comment on above: Performed By: #### C BCA, CMP, 3039-3 ####[facility] ([id number])[address] [place] [address] 96957 Calcium [Mass/Vol] 9.2 mg/dL Normal 8.5-10.5 [facility] Comment on above: Performed By: #### C JUSTIN SORENSEN, 3040-3 ####[facility] ([id number])[address] [place] [address] 96258 Chloride [Moles/Vol] 103 mmol/L Normal 98-109 [facility] Comment on above: Performed By: #### C JSUTIN SORENSEN, 3039-3 ####[facility] ([id number])[address] [place] [address] 75082 CO2 [Moles/Vol] 25 mmol/L Normal 22-32 [facility] Comment on above: Performed By: #### C JUSTIN SORENSEN, 3040-3 ####[facility] ([id number])[address] [place] [address] 47287 Creatinine [Mass/Vol] 1.02 mg/dL Normal 0.70-1.20 [facility] Comment on above: Result Comment: METH OD TRACEABLE TO IDMS STANDARD Performed By: #### C JUSTIN SORENSEN, 3040-3 ####[facility] ([id number])[address] [place] [address] 60084 GFR/1.73 sq M.predicted among non-blacks MDRD (S/P/Bld) [Vol rate/Area] 82 mL/min/{1.73_m2} Normal >59 [facility] Comment on above: Result Comment: Reported eGFR is based on the CKD-EPI 2020 equation that does not use a race coefficient. Performed By: #### C JUSTIN SORENSNE, 3040-3 ####[facility] ([id number])[address] [place] [address] 83407 Glucose [Mass/Vol] 111 mg/dL High 65-99 [facility] Comment on above: Performed By: #### C JUSTIN SORENSEN, 3040-3 ####[facility] ([id number])[address] [place] [address] 31765 Potassium [Moles/Vol] 3.8 mmol/L Normal 3.5-5.0 [facility] Comment on above: Performed By: #### C BCA, CMP, 3040-3 ####[facility] ([id number])[address] [place] [address] 57337 Protein [Mass/Vol] 7.3 g/dL Normal 6.0-8.0 [facility] Comment on above: Performed By: #### C BCA, CMP, 3040-3 ####[facility] ([id number])[address] [place] [address] 60182 Sodium [Moles/Vol] 135 mmol/L Normal 134-146 [facility] Comment on above: Performed By: #### C BCA, CMP, 3040-3 ####[facility] ([id number])[address] [place] [address] 87170 Urea nitrogen [Mass/Vol] 17 mg/dL Normal 5-27 [facility] Comment on above: Performed By: #### C BCA, CMP, 3040-3 ####[facility] ([id number])[address] [place] [address] ABDOMEN AND PELVIS W CONT on [...] THE CLINICAL SERVICE ON 01/05/2025 10:36 PM Finalized by Dawit Bland MD on 01/05/2025 10:36 PM Normal [facility] LIPASEon 01-05-2025 Lipase [Catalytic activity/Vol] 28 U/L Normal 17-40 [facility] Comment on above: Performed By: #### C BCA, CMP, 3040-3 ####[facility] ([id number])[address] [place] [address] 75533 Lactate (P jayesh) [Moles/Vol]o n 01-05-2025 LACTATE W/REFLEX 0.7 mmol/L Normal 0.4-2.0 [facility] Comment on above: Result Comment: Result did not trigger repeat Lactate, re-order if needed. Performed By: #### 3 2133-1 ####[facility] ([id number])[address] [place] [address] 98851 SHEILA FECAL OCCULT BLDon 01-05 Hemoglobin.gastroint estinal Ql (Stl) Positive Abnormal NEG [facility] Comment on above: Performed By: #### 2 335-8 ####[facility] ([id number])[address] [place] [address] 47631 CBC AND AUTO DIFFon 01-02-20 25 ABSOLUTE BASOPHIL 0.0 X10E9/L Normal 0.0-0.2 [facility] Comment on above: Performed By: #### C EDU, CMP, 0-3, #### [facility] ([id number]) [address] [place] [address] 46828 ABSOLUTE NEUTROPHIL 8.7 X10E9/L High 1.5-6.6 [facility] Comment on above: Performed By: #### C EDU, CMP, 3, #### [facility] ([id number]) [address] [place] [address] 57221 Basophils/100 WBC (Bld) 0.3 % Normal [facility] Comment on above: Performed By: #### Bereket SORENSEN, CMP, 3040-01, #### [facility] ([id number]) [address] [place] [address] 51751 Eosinophils (Bld) [#/Vol] 0.1 10*3/uL Normal 0.0-0.4 [facility] Comment on above: Performed By: #### C BCA, CMP, 3, #### [facility] ([id number]) [address] [place] [address] 19684 Eosinophils/100 WBC (Bld) 0.9 % Normal [facility] Comment on above: Performed By: #### C BCA, CMP, 3, #### [facility] ([id number]) [address] [place] [address] 70989 Erythrocyte distribution width (RBC) [Ratio] 13.9 % Normal 11.5-15.0 [facility] Comment on above: Performed By: #### Bereket BCA, CMP, 3, #### [facility] ([id number]) [address] [place] [address] 65806 Hematocrit (Bld) [Volume fraction] 43.3 % Normal 39-49 [facility] Comment on above: Performed By: #### C EDU CMP, 3040-01, #### [facility] ([id number]) [address] [place] [address] 98424 Hemoglobin (Bld) [Mass/Vol] 14.8 g/dL Normal 13.0-17.0 [facility] Comment on above: Performed By: #### C EDU, CMP, 3040-01, #### [facility] ([id number]) [address] [place] [address] 58519 Lymphocytes (Bld) [#/Vol] 0.8 10*3/uL Low 1.0-3.5 [facility] Comment on above: Performed By: #### Bereket SORENSEN, CMP, 3040-01, #### [facility] ([id number]) [address] [place] [address] 68441 Lymphocytes/100 WBC (Bld) 7.8 % Normal [facility] Comment on above: Performed By: #### Bereket BCA, CMP, 3040-01, #### [facility] ([id number]) [address] [place] [address] 87088 MCH (RBC) [Entitic mass] 30.8 pg Normal 27-34 [facility] Comment on above: Performed By: #### C BCA, CMP, 3040-01, #### [facility] ([id number]) [address] [place] [address] 46900 MCHC (RBC) [Mass/Vol] 34.2 g/dL Normal 32-36 [facility] Comment on above: Performed By: #### Bereket BCA, CMP, 3040-01, #### [facility] ([id number]) [address] [place] [address] 15648 MCV (RBC) [Entitic vol] 90 fL Normal 80-100 [facility] Comment on above: Performed By: #### C EDU, CMP, 0-3, #### [facility] ([id number]) [address] [place] [address] 93868 Monocytes (Bld) [#/Vol] 0.2 10*3/uL Normal 0-0.9 [facility] Comment on above: Performed By: #### C EDU, CMP, 3040-01, #### [facility] ([id number]) [address] [place] [address] 25441 Monocytes/100 WBC (Bld) 2.0 % Normal [facility] Comment on above: Performed By: #### Bereket OSRENSEN, CMP, 3040-01, #### [facility] ([id number]) [address] [place] [address] 95139 Neutrophils/100 WBC (Bld) 89.0 % Normal [facility] Comment on above: Performed By: #### Bereket SORENSEN, CMP, 3040-01, #### [facility] ([id number]) [address] [place] [address] 15463 Platelet mean volume (Bld) [Entitic vol] 7.9 fL Normal 7-12 [facility] Comment on above: Performed By: #### C EDU, CMP, 3, #### [facility] ([id number]) [address] [place] [address] 96869 Platelets (Bld) [#/Vol] 167 10*3/uL Normal 150-450 [facility] Comment on above: Performed By: #### C EDU, CMP, 3040-01, #### [facility] ([id number]) [address] [place] [address] 90497 RBC COUNT 4.82 X10E12/L Normal 4.10-5.70 [facility] Comment on above: Performed By: #### C BCA, CMP, 0-3, #### [facility] ([id number]) [address] [place] [address] 69513 WBC (Bld) [#/Vol] 9.7 10*3/uL Normal 4.0-11.0 [facility] Comment on above: Performed By: #### C BCA, CMP, 0-3, #### [facility] ([id number]) [address] [place] [address] 63284 COMPREHENSIVE METABOLIC PANE Jay Jay 01-02-2025 Albumin [Mass/Vol] 4.0 g/dL Normal 3.2-5.3 [facility] Comment on above: Performed By: #### C BCA, CMP, 03, #### [facility] ([id number]) [address] [place] [address] 70610 ALP [Catalytic activity/Vol] 57 U/L Normal 39-130 [facility] Comment on above: Performed By: #### C BCA, CMP, 03, #### [facility] ([id number]) [address] [place] [address] 21642 ALT [Catalytic activity/Vol] 23 U/L Normal 0-40 [facility] Comment on above: Performed By: #### C BCA, CMP, 03, #### [facility] ([id number]) [address] [place] [address] 83879 Anion gap [Moles/Vol] 8 mmol/L Normal 5-15 [facility] Comment on above: Performed By: #### C BCA, CMP, 3, #### [facility] ([id number]) [address] [place] [address] 70575 AST [Catalytic activity/Vol] 24 U/L Normal 0-41 [facility] Comment on above: Performed By: #### C BCA, CMP, 3040-01, #### [facility] ([id number]) [address] [place] [address] 11918 Bilirubin [Mass/Vol] 1.0 mg/dL Normal 0.3-1.2 [facility] Comment on above: Performed By: #### C BCA, CMP, 3040-01, #### [facility] ([id number]) [address] [place] [address] 91040 Calcium [Mass/Vol] 9.1 mg/dL Normal 8.5-10.5 [facility] Comment on above: Performed By: #### C BCA, CMP, 3040-01, #### [facility] ([id number]) [address] [place] [address] 51042 Chloride [Moles/Vol] 109 mmol/L Normal 98-109 [facility] Comment on above: Performed By: #### C BCA, CMP, 3040-01, #### [facility] ([id number]) [address] [place] [address] 56640 CO2 [Moles/Vol] 23 mmol/L Normal 22-32 [facility] Comment on above: Performed By: #### C BCA, CMP, 3040-01, #### [facility] ([id number]) [address] [place] [address] 73797 Creatinine [Mass/Vol] 1.10 mg/dL Normal 0.70-1.20 [facility] Comment on above: Result Comment: METH OD TRACEABLE TO IDMS STANDARD Performed By: #### C BCA, CMP, 3040-01, #### [facility] ([id number]) [address] [place] [address] 60132 GFR/1.73 sq M.predicted among non-blacks MDRD (S/P/Bld) [Vol rate/Area] 74 mL/min/{1.73_m2} Normal >59 [facility] Comment on above: Result Comment: Reported eGFR is based on the CKD-EPI 2020 equation that does not use a race coefficient. Performed By: #### C JUSTIN SORENSEN, 3040-01, #### [facility] ([id number]) [address] [place] [address] 04085 Glucose [Mass/Vol] 131 mg/dL High 65-99 [facility] Comment on above: Performed By: #### C JUSTIN SORENSEN, #### [facility] ([id number]) [address] [place] [address] 14513 Potassium [Moles/Vol] 3.6 mmol/L Normal 3.5-5.0 [facility] Comment on above: Performed By: #### C JUSTIN SORENSEN, #### [facility] ([id number]) [address] [place] [address] 09496 Protein [Mass/Vol] 6.7 g/dL Normal 6.0-8.0 [facility] Comment on above: Performed By: #### C JUSTIN SORENSEN, #### [facility] ([id number]) [address] [place] [address] 41797 Sodium [Moles/Vol] 140 mmol/L Normal 134-146 [facility] Comment on above: Performed By: #### C EUD CMP, #### [facility] ([id number]) [address] [place] [address] 19347 Urea nitrogen [Mass/Vol] 18 mg/dL Normal 5-27 [facility] Comment on above: Performed By: #### C JUSTIN SORENSEN, 0-3, #### [facility] ([id number]) [address] [facility], [place] [address] CT ABDOMEN AND PELVIS W CONT on [...] Doroteo Zambrano DO on 01/02/2025 9:42 PM Rony Montemayor MD have personally reviewed the image(s) and agree with and/or edited the report Finalized by Rony Andrew MD on 01/02/2025 9:54 PM Normal [facility] LIPASEon 01-02-2025 Lipase [Catalytic activity/Vol] 27 U/L Normal 17-40 [facility] Comment on above: Performed By: #### C JUSTIN SORENSEN, 3039-3, #### [facility] ([id number]) [address] [place] [address] Lactate (P jayesh) [Moles/Vol]o n 01-02-2025 LACTATE W/REFLEX 2.3 mmol/L High 0.4-2.0 [facility] Comment on above: Performed By: #### 3 2133-1 #### [facility] ([id number]) [address] [place] [address] MAGNESIUMon 01-02-2025 Magnesium [Mass/Vol] 2.1 mg/dL Normal 1.8-2.6 [facility] Comment on above: Performed By: #### C BCA, CMP, 3040-3, #### [facility] ([id number]) [address] [place] [address] 30053 SARS/FLU A+B/RSV by NAAT/Mol ecularon 01-02-2025 SARS/FLU [...] operators who are performing tests using either Cupple or InCast systems and is limited to laboratories that [...] specimen repeat. Fact Sheet for Healthcare Providers: https://www.fda.gov/m edia/015081/download Fact Sheet for Patients: https://www.fda.gov/m edia/408100/download Normal [facility] Comment on above: Performed By: #### C OVFLR #### [facility] ([id number]) [address] [place] [address], [place] [address] Jay Jay 12-11-2024 L - -------- Specimen: [id number] Received: 12/13/24 Status: YEHUDA Louise Num: [id number] Spec Type: Surgical Subm Dr: Anjana Dietz,DPM, MS Tissues: A Bone Fragments - Other than Path Fracture (OSTEOPHYTES LT ANKLE) Procedures: LOLA, Gross/Micro L3, Decalcification -------- Age/ Patient Sex Location Account Attending Physician -------- Meredith Villatoro 64/M [place] [id number] Anjana Dietz DPM, [place] -------- SPEC NUM: [id number] RECD: 12/13/24 STATUS: YEHUDA LOUISE NUM: [id number] MICHEL: 12/11/24-114 [facility] DR: Anjana Dietz DPM, [place] ENTERED: 12/13/[address]: [place] SPEC TYPE: Surgical DEPT: RACQUEL KEITH ENTERED BY: [id number] RECV BY: [id number] ORDERED: HE, Gross/Micro L3, Decalcification ORDERED: HE, [...] reveal han-josue, firm and uniform cut surfaces. Field Account Manager sections are submitted in a single cassette after decalcification. (1, , BS25- A)HAKEEM -------- Specimen: [id number] Received: 12/13/24 Status: YEHUDA Louise Num: [id number] Spec Type: Surgical Subm Dr: Anjana Dietz,D[place]eonora, [place] Tissues: A Bone Fragments - Other than Path Fracture (OSTEOPHYTES LT ANKLE) Procedures: LOLA, Gross/Micro L3, Decalcification -------- Patient: Meredith Villatoro [id number] (Continued) -------- Specimen: [id number] Received: 12/13/24 (Continued) Signed (signature on file) Aimee Maloney MD 12/15/24 1714 -------- Specimen: [id number] Received: 12/13/24 Status: YEHUDA Sharmaine Num: [id number] Spec Type: Surgical Subm Dr: Anjana Dietz,D[place]eon[place], [place] Tissues: A Bone Fragments - Other than Path Fracture (OSTEOPHYTES LT ANKLE) Procedures: LOLA, Gross/Micro L3, Decalcification -------- Patient: Meredith Villatoro [id number] (Continued) -------- Specimen: [id number] Received: 12/13/24 (Continued) Microscopic Description Microscopic examinations are performed supporting the above interpretation CPT Codes 56144 01409 -------- -------- Specimen: [id number] Received: 12/13/24 Status: YEHUDA Louise Num: [id number] Spec Type: Surgical Subm Dr: Anjana Dietz,BENITO, [place] Tissues: A Bone Fragments - Other than Path Fracture (OSTEOPHYTES LT ANKLE) Procedures: HE, Gross/Micro L3, Decalcification -------- Patient: Meredith Villatoro [id number] (Continued) -------- Signed (signature on file) Aimee Maloney MD 12/15/241713 Normal The Counts Include 234 [facility] At [facility] Ambulatory Visit Summaryon 1 12-16-2023 Ambulatory Visit [...] AM EST With: Where: [facility] [address] [place] [address]- Wednesday 11:15 AM EST With: Leila LAMBERT MD Where: [facility] [address] [place] [address]- You Need to Schedule the Following Appointments Follow Up with Leila LAMBERT MD, URL When: Comments: 3 mos w/ PSA and Lupron Where: [facility] [address], [place] [address]- [phone] Medications What How Much When Instructions Changed mirabegron (Myrbetriq 50 mg oral tablet, extended release) 2 Tablets By Mouth Every day Duration: 90 Days Pickup at [facility] [id number] Unchanged tamsulosin (tamsulosin 0.4 mg Cap) 1 [...] physician if questions or concerns Pharmacy Information [facility] [id number]: [address] [place], [place] [id number] [phone] Allergies No Known Medication Allergies Problems Ongoing [...] semen. ? (more content not included)... Normal [facility] Urology Office/Clinic Noteon 10-16-2024 Urology Office/Clinic [...] - 0.6 MRI prostate w/wo con [place] [facility] [place] 4 and 5. MRI fusion bx 02/05/22 - [facility] 8 (4+4), 18 cores, grade group 4. [...] Malignant neoplasm of prostate) See #1. Ordered: 74911 Measure Post Void residual urine and/or bladder capacity by US- non-imaging E&M of Est. Patient Moderate 30-39 Min 84733 PSA Total Urnls Dip Stick Auto w/o Microscopy POC 56771 3. Urge incontinence (N39.41: Urge incontinence) PVR [...] E&M of Est. Patient Moderate 30-39 Min 50432 4. BPH with obstruction/lower urinary tract symptoms (N40.1: Benign prostatic hyperplasia with lower urinary tract symptoms) Taking Flomax 0.4mg bid. See #3. Ordered: E&M of Est. Patient Moderate 30-39 Min 71152 5. History of prostatitis (Z87.438: Personal history of other diseases of male genital organs) Has been tx'd with Doxycycline and Methenamine in the past. [1] UA today negative for blood and infection. Ordered: E&M of Est. Patient Moderate 30-39 Min 99906 Orders: mirabegron, 100 mg = 2 tab(s), Oral, Daily, X 90 day(s), # 180 tab(s), Refills(s) 3, Pharmacy: [facility] [id number], 160, cm, 10/16/24 12:19:00 EST, Height/Length Dosing, 117, kg, 10/16/24 12:19:00 EST, Weight Dosing Follow-up With When Contact Information Leila LAMBERT MD, URL [facility] [address], [place] [phone] Additional Instructions: 3 mos w/ PSA and [...] tract sympt (more content not included)... Normal [facility] Comment on above: Result Comment: Elec [...] for this result was chemiluminescence using [employer] Access Hybritech PSA reagent. PSA Totalon 10-03-2024 Prostate specific Ag [Mass/Vol] 0.6 ng/mL Normal 0.1-3.5 [facility] Comment on above: Result Comment: The concentration of PSA determined by different manufacturers can vary due to differences in assay methods and reagent specificity. Values obtained from different assay methods cannot be used interchangeably. The methodology used for this result was chemiluminescence using [employer] Access Hybritech PSA reagent. Performed By: #### 1 [id number] #### [facility] [address] [place] [address] Surgical Pathologyon 024 Surgical Pathology Normal [facility] Comment on above: Result Comment: [facility] [address] [place] [address] Surgical Pathology Consultation Patient Name:MEREDITH VILLATORO:1960 (Age: 64)Gender:MTaken:4Reported:09/14/2024hysician(s):Andres Chau D.O. ([phone])Copy To: Rec. #:[id number]: #[id number] Final Pathologic Diagnosis 1. Sigmoid colon polyp: [...] Weir MD Interpretation performed at [facility], [address] [place], [address], License number: [id number]. Clinical History Diarrhea. Gross Description 1. Received in formalin labeled [place], sigmoid are two josue-han, focally erythematous, friable, 0.3 and 0.4 cm polypoid fragments. The specimen is entirely submitted in a single cassette. (1, ns, [id number], m4) JG 2. Received in formalin labeled [place], splenic are two josue-han, focally erythematous, friable, 0.3 and 0.4 cm polypoid fragments with adherent vegetative material. The polyps are entirely submitted in a single cassette with the vegetative material retained. (1, ns, [id number], m4) JG 3. Received in formalin labeled IRVING, random BX are two josue-han, focally erythematous, friable, 0.4 cm each soft tissue bits. The specimen is entirely submitted in a single cassette. (1, ns, [id number], m4) JG 4. Received in formalin labeled IRVING, anastomosis are two josue-han, focally erythematous, friable, 0.2 and 0.3 cm soft tissue bits. The specimen is entirely submitted in a single cassette. (1, ns, [id number], m4) JG [facility] [place]/09/12/2024NSK Specimen(s) Received 1: Sigmoid colon polyp 2: Splenic flexure polyp 3: Random colon biopsy 4: Anastomosis biopsy Fee Codes(s): 1; 12786 2; 57870 3; 77346 4; 46617 CT LOW DOSE LUNG SCREENINGon 08-29-2024 CT [...] aided detection for pulmonary nodules?was performed utilizing [employer].CARGOBR software.? FINDINGS: Diagnostic quality: Satisfactory. Some motion [...] Dose Lung Screening 6 month follow up Finalized by Keisha Gauthier MD on 08/29/2024 2:35 PM 3 LDCT 6 Mo Normal [facility] MR ANKLE LEFT WO IV CONTRAST on [...] due to muscle strain. ELECTRONICALLY SIGNED BY: Rony Ramos DO Normal Not Available Ambulatory Visit [...] OVIEDO, Leila Simpson Where: [facility] Normal History of prostatitis, Required & [...] that the cancer will spread.\.br\ ? \.br\ Baldwyn 6 or lower: This indicates that the cancer cells look similar to normal prostate cells (well differentiated).\ .br\ ? \.br\ Baldwyn 7: This indicates that the cancer cells [...] cells or stops them from multiplying. It [facility] CHEMISTRYOrdered By: SYSTEM SYSTEM on 03-17-2024 [...] used for this result was chemiluminescence using [employer] Access Hybritech PSA reagent. PSA Totalon 03-17-2024 Prostate specific Ag [Mass/Vol] 0.2 ng/mL Normal 0.1-3.5 [facility] Comment on above: Result Comment: The concentration of PSA determined by different manufacturers can vary due to differences in assay methods and reagent specificity. Values obtained from different assay methods cannot be used interchangeably. The methodology used for this result was chemiluminescence using [employer]'s Access Hybritech PSA reagent. Performed By: #### 1 [id number] #### [facility] [address] [place] [id number] Patient Educationon 03-17-20 24 Patient Education Oncology [...] under a microscope. This is called the Baldwyn score and the total score can range [...] to normal prostate cells (moderately differentiated). ? Baldwyn 8, 9, or 10: This indicates that [...] external be (more content not included)... Normal [facility] Urology Office/Clinic Noteon 03-17-2024 Urology Office/Clinic [...] today's appointment. MRI prostate w/wo con [place]08[place] [facility] PI-RADS 4 and 5. MRI fusion bx 02/05/22 - Baldwyn 8 (4+4), 18 cores, grade group 4. NM Whole body bone scan 02/20/22 [facility] - No evidence of mets disease [...] Contact Information PETRA OVIEDO, Leila Simpson, URL [address] [id number]- Additional Instructions: 6 mos w/ PSA Patient [...] Status Comments (more content not included)... Normal [facility] Comment on above: Result Comment: Elec tronically Signed By: Leila LAMBERT MD\.br\Date and Time Signed: 03/17/24 12:26 EDT\.br\Electronically Co-Signed By: Lolly Reid.br\Date and Time Co-Signed: 03/17/24 12:21 EDT Basophils Auto (Bld) [#/Vol] Ordered By: Fred Kirk on 11-30-2023 Basophils (Bld) [#/Vol] 0.0 10*3/uL 0.0-0.2 [facility] Basophils/100 WBC Auto (Bld) Ordered By: Fred Kirk on 11-30-2023 Basophils/100 WBC (Bld) 0.8 % . [facility] Eosinophils Auto (Bld) [#/Vo l]Ordered By: Fred Kirk on 11-30-2023 Eosinophils (Bld) [#/Vol] 0.1 10*3/uL 0.0-0.45 [facility] Eosinophils/100 WBC Auto (Bl d)Ordered By: Fred Kirk on 11-30-2023 Eosinophils/100 WBC (Bld) 1.5 % . [facility] Erythrocyte distribution wid th Auto (RBC) [Ratio]Ordered By: Fred Kirk on 11-30-2023 Erythrocyte distribution width (RBC) [Ratio] 13.1 % 12.0-14.8 [facility] Hematocrit Auto (Bld) [Volum e fraction]Ordered By: Fred Kirk on 11-30-2023 Hematocrit (Bld) [Volume fraction] 42.5 % 38.8-50.0 [facility] Hemoglobin [Mass/volume] in BloodOrdered By: Fred Kirk on 11-30-2023 Hemoglobin (Bld) [Mass/Vol] 14.8 g/dL 13.0-17.0 [facility] IgA [Mass/volume] in Serum o r PlasmaOrdered By: Fred Kirk on 11-30-2023 IgA [Mass/Vol] 205 mg/dL 61-437 [facility] Comment on above: Performed at: - [facility] [address] [id number] Director: Mehran Ortega PhD, Phone: [phone] Leukocytes [#/volume] correc ori for nucleated erythrocytes in Blood by Automated counOrdered By: Fred Kirk on 11-30-2023 WBC corrected for nucl RBC Auto (Bld) [#/Vol] 6.2 10*3/uL 4.1-10.5 [facility] Lymphocytes Auto (Bld) [#/Vo l]Ordered By: Fred Kirk on 11-30-2023 Lymphocytes (Bld) [#/Vol] 0.7 10*3/uL 1.00-4.8 [facility] Lymphocytes/100 WBC Auto (Bl d)Ordered By: Fred Kirk on 11-30-2023 Lymphocytes/100 WBC (Bld) 11.9 % . [facility] MCH Auto (RBC) [Entitic mass ]Ordered By: Fred Kirk on 11-30-2023 MCH (RBC) [Entitic mass] 31.4 pg 27.5-35.2 [facility] MCHC Auto (RBC) [Mass/Vol]Or dered By: Fred Kirk on 11-30-2023 MCHC (RBC) [Mass/Vol] 34.8 g/dL 32.5-35.6 [facility] MCV Auto (RBC) [Entitic vol] Ordered By: Fred Kirk on 11-30-2023 MCV (RBC) [Entitic vol] 90.4 fL 83.5-101 [facility] Monocytes Auto (Bld) [#/Vol] Ordered By: Fred Kirk on 11-30-2023 Monocytes (Bld) [#/Vol] 0.5 10*3/uL 0.0-0.8 [facility] Monocytes/100 WBC Auto (Bld) Ordered By: Fred Kirk on 11-30-2023 Monocytes/100 WBC (Bld) 7.4 % . [facility] Neutrophils Auto (Bld) [#/Vo l]Ordered By: Fred Kirk on 11-30-2023 Neutrophils (Bld) [#/Vol] 4.8 10*3/uL 1.8-7.7 [facility] Neutrophils/100 WBC Auto (Bl d)Ordered By: Fred Kirk on 11-30-2023 Neutrophils/100 WBC (Bld) 78.4 % . [facility] No Panel InformationOrdered By: Fred Kirk on 11-30-2023 Endomysial IgA Antibody Negative Negative [facility] Nucleated erythrocytes [Pres ence] in Blood by Automated countOrdered By: Fred Kirk on 11-30-2023 Nucleated RBC Auto Ql (Bld) 0.1 /100{WBC} 0-0.5 [facility] Platelet mean volume Auto (B ld) [Entitic vol]Ordered By: Fred Kirk on 11-30-2023 Platelet mean volume (Bld) [Entitic vol] 7.4 fL 6.6-10.1 [facility] Platelets Auto (Bld) [#/Vol] Ordered By: Fred Kirk on 11-30-2023 Platelets (Bld) [#/Vol] 187 10*3/uL 150-450 [facility] RBC Auto (Bld) [#/Vol]Ordere d By: Fred Kirk on 11-30-2023 RBC (Bld) [#/Vol] 4.70 10*6/uL 3.90-5.60 [facility] Serum gliadin peptide IgA an tibody assay (units/volume)Ordered By: Fred Kirk on 11-30-2023 Gliadin peptide IgA Qn (S) 5 units 0-19 [facility] Comment on above: Negative 0 - 19 Weak Positive 20 - 30 Moderate to Strong Positive >30 Serum gliadin peptide IgG an tibody assay (units/volume)Ordered By: Fred Kirk on 11-30-2023 Gliadin peptide IgG Qn (S) 2 units 0-19 [facility] Comment on above: Negative 0 - 19 Weak Positive 20 - 30 Moderate to Strong Positive >30 Serum tissue transglutaminas e (tTG) IgA antibody assay (units/volume)Ordered By: Fred Kirk on 11-30-2023 tTG IgA Qn (S) <2 U/mL 0-3 [facility] Comment on above: Negative 0 - 3 Weak Positive 4 - 10 Positive >10 Tissue Transglutaminase (tTG) has been identified as the endomysial antigen. Studies have demonstr- ated that endomysial IgA antibodies have over 99% specificity for gluten sensitive enteropathy. Serum tissue transglutaminas e (tTG) IgG antibody assay (units/volume)Ordered By: Fred Kirk on 11-30-2023 tTG IgG Qn (S) 3 U/mL 0-5 [facility] Comment on above: Negative 0 - 5 Weak Positive 6 - 9 Positive >9 Thyrotropin [Units/volume] i n Serum or PlasmaOrdered By: Fred Kirk on 11-30-2023 TSH Qn 2.85 m[IU]/L 0.45-5.33 [facility] WBC Auto (Bld) [#/Vol]Ordere d By: Fred Kirk on 11-30-2023 WBC (Bld) [#/Vol] 6.2 10*3/uL 4.1-10.5 [facility] CHEMISTRYOrdered By: SYSTEM SYSTEM on 01-20-2023 Anion gap [Moles/Vol] 13 mmol/L Normal 6 - 16 mEq/L [facility] Remisol Calcium [Mass/Vol] 9.4 mg/dL Normal 8.9 - 11.1 mg/dL [facility] Remisol Chloride [Moles/Vol] 99 mmol/L Low 101 - 111 mmol/ L [facility] Remisol CO2 [Moles/Vol] 25 mmol/L Normal 21 - 31 mmol/L [facility] Remisol Creatinine [Mass/Vol] 1.1 mg/dL Normal 0.5 - 1.3 mg/dL [facility] Remisol GFR/1.73 sq M.predicted among blacks MDRD (S/P/Bld) [Vol rate/Area] mL/min/1.73 m2 Normal >=59mL/min/1.73 m2 [facility] Chem S GFR/1.73 sq M.predicted among non-blacks MDRD (S/P/Bld) [Vol rate/Area] mL/min/1.73 m2 Normal >=59mL/min/1.73 m2 [facility] [place] Chem S Glucose [Mass/Vol] 139 mg/dL Normal 55 - 199 mg/dL [facility] Remisol Potassium [Moles/Vol] 4.5 mmol/L Normal 3.5 - 5.3 mmol/L [facility] Remisol Sodium [Moles/Vol] 132 mmol/L Low 135 - 145 mmol/L [facility] Urea nitrogen [Mass/Vol] 28 mg/dL High 5 - 21 mg/dL [facility] [place] Remisol Urea nitrogen/Creatinine [Mass ratio] 26 mg/mg High 10 - 20 [facility] HEMATOLOGYOrdered By: Damian Sanchez on 01-20-2023 Erythrocyte distribution width (RBC) [Ratio] 12.7 % Normal 10.9 - 14.2 % [facility] [place] HemeAutoSS Hematocrit (Bld) [Volume fraction] 45.6 % Normal 37.7 - 49.0 % [facility]eAutoSS Hemoglobin (Bld) [Mass/Vol] 15.3 g/dL Normal 13.5 - 17.5 gm/dL [facility] [place] HemeAutoSS MCH (RBC) [Entitic mass] 31.0 pg Normal 27.0 - 34.0 pg [facility] MCHC (RBC) [Mass/Vol] 33.5 g/dL Normal 31.4 - 36.0 gm/dL [facility] MCV (RBC) [Entitic vol] 92.4 fL Normal 80.0 - 100.0 fL [facility] Platelet mean volume (Bld) [Entitic vol] 7.7 fL Normal 6.4 - 10.8 fL [facility] Platelets (Bld) [#/Vol] 198.0 E9/L Normal 150.0 - 500.0 E9/L [facility] RBC (Bld) [#/Vol] 4.9 E12/L Normal 4.3 - 5.9 E12/L [facility] HemeAutoSS WBC corrected for nucl RBC Auto (Bld) [#/Vol] 4.8 E9/L Normal 4.0 - 11.0 E9/L [facility] [place] HemeAutoSS XR PELVIS 1_2 [...] KOBE DOOLEY Date: 2022-05-22 06:41 Normal [facility] CBC W MANUAL DIFFon 05-14-20 22 ATYPICAL LYMPH # Normal [facility] Comment on above: Performed By: #### C ALEX #### [facility] [address] [place] [address] Dr. Lui Maloney ATYPICAL LYMPH % Normal [facility] Comment on above: Performed By: #### C ALEX #### [facility] [address] [place] [address] Dr. Lui Maloney BAND # Normal 0.0-0.3 [facility] Comment on above: Performed By: #### C ALEX #### [facility] [address] [place] [address] Dr. Lui Maloney BAND % Normal 0-5 [facility] Comment on above: Performed By: #### C ALEX #### [facility] [address] [place] [address] Dr. Lui Maloney BASOM # 0.00 103/ul Normal 0.00-0.10 [facility] Comment on above: Performed By: #### C ALEX #### [facility] [address] [place] [address] Dr. Lui Maloney BASOM % 0.0 % Critically low 0.2-2.0 [facility] Comment on above: Performed By: #### C ALEX #### [facility] [address] [place] [address] Dr. Lui Maloney BLAST # Normal [facility] Comment on above: Performed By: #### C ALEX #### [facility] [address] [place] [address] Dr. Lui Maloney BLAST % Normal [facility] Comment on above: Performed By: #### C ALEX #### [facility] [address] [place] [address] Dr. Lui Maloney CORRECTED WBC Normal 4.0-11.0 [facility] Comment on above: Performed By: #### C ALEX #### [facility] [address] [place] [address] Dr. Lui Maloney EOS # 0.21 103/ul Normal 0.00-0.70 [facility] Comment on above: Performed By: #### C ALEX #### [facility] [address] [place] [address] Dr. Lui Maloney EOS% 5.0 % Normal 0.9-7.0 [facility] Comment on above: Performed By: #### C ALEX #### [facility] [address] [place] [address] Dr. Lui Maloney HCT 41.6 % Critically low 42.0-54.0 [facility] Comment on above: Performed By: #### C ALEX #### [facility] [address] [place] [address] Dr. Lui Maloney HGB 14.5 g/dl Normal 14.0-18.0 [facility] Comment on above: Performed By: #### C ALEX #### [facility] [address] [place] [address] Dr. Lui Maloney LYMPHM # 0.63 103/ul Critically low 1.20-3.80 [facility] Comment on above: Performed By: #### C ALEX #### [facility] [address] [place] [address] Dr. Lui aMloney LYMPHM% 15.0 % Critically low 20.5-60.0 [facility] Comment on above: Performed By: #### C ALEX #### [facility] [address] [place] [address] Dr. Lui Maloney MCH 31.1 pg Normal 25.9-34.0 [facility] Comment on above: Performed By: #### C ALEX #### [facility] [address] [place] [address] Dr. Lui Maloney MCHC 34.9 g/dl Normal 29.9-35.2 [facility] Comment on above: Performed By: #### C ALEX #### [facility] [address] [place] [address] Dr. Lui Maloney MCV 89.3 fL Normal 80.0-94.0 [facility] Comment on above: Performed By: #### C BCNGHIA #### [facility] [address] [place] [address] Dr. Lui Maloney METAMYELOCYTE # Normal [facility] Comment on above: Performed By: #### C ALEX #### [facility] [address] [place] [address] Dr. Lui Maloney METAMYELOCYTE % Normal [facility] Comment on above: Performed By: #### C ALEX #### [facility] [address] [place] [address] Dr. Lui Maloney MONOM# 0.29 103/ul Critically low 0.30-0.80 [facility] Comment on above: Performed By: #### C ALEX #### [facility] [address] [place] [address] Dr. Lui Maloney MONOM% 7.0 % Normal 1.7-12.0 [facility] Comment on above: Performed By: #### C ALEX #### [facility] [address] [place] [address] Dr. Lui Maloney MPV 9.4 fL Critically low 9.5-13.5 [facility] Comment on above: Performed By: #### C ALEX #### [facility] [address] [place] [address] Dr. Lui Maloney MYELOCYTE # Normal [facility] Comment on above: Performed By: #### C ALEX #### [facility] [address] [place] [address] Dr. Lui Maloney MYELOCYTE % Normal [facility] Comment on above: Performed By: #### C ALEX #### [facility] [address] [place] [address] Dr. Lui Maloney NRBC Normal [facility] Comment on above: Performed By: #### C ALEX #### [facility] [address] [place] [address] Dr. Lui Maloney PLT 155 103/ul Normal 150-450 [facility] Comment on above: Performed By: #### C ALEX #### [facility] [address] [address] [address] Lui Maloney RBC 4.66 106/ul Critically low 4.70-6.10 [facility] Comment on above: Performed By: #### C ALEX #### [facility] [address] [place] [address] Dr. Lui Maloney RDW 13.4 % Normal 11.0-15.0 [facility] Comment on above: Performed By: #### C ALEX #### [facility] [address] [place] [address] Dr. Lui Maolney SEG # 3.07 103/ul Normal 1.40-6.50 [facility] Comment on above: Performed By: #### C ALEX #### [facility] [address] [place] [address] Dr. Lui Maloney SEG % 73.0 % Normal 43.0-75.0 [facility] Comment on above: Performed By: #### C ALEX #### [facility] [address] [place] [address] Dr. Lui Maloney WBC 4.2 103/ul Normal 4.0-11.0 [facility] Comment on above: Performed By: #### C ALEX #### [facility] [address] [place] [address] Dr. Lui Maloney PROF CHEM 8 (BAS METB)on Anion gap [Moles/Vol] 12.2 mmol/L Normal [facility] Comment on above: Performed By: #### B MP #### [facility] [address] [address] [address] Lui Maloney Calcium [Mass/Vol] 8.9 mg/dL Normal 8.5-10.1 [facility] Comment on above: Performed By: #### B MP #### [facility] [address] [address] [address] Lui Maloney Chloride [Moles/Vol] 108 mmol/L Critically high 98-107 [facility] Comment on above: Performed By: #### B MP #### [facility] [address] [place] [address] Dr. Lui Maloney CO2 [Moles/Vol] 25.1 mmol/L Normal 21.0-32.0 [facility] Comment on above: Performed By: #### B MP #### [facility] [address] [place] [address] Dr. Lui Maloney Creatinine [Mass/Vol] 0.92 mg/dL Normal 0.70-1.30 [facility] Comment on above: Performed By: #### B MP #### [facility] [address] [place] [address] Dr. Lui Maloney EGFR-AF GRENADIAN >60 Normal >=60 [facility] Comment on above: Performed By: #### B MP #### [facility] [address] [place] [address] Dr. Lui Maloney EGFR-NON AF GRENADIAN >60 Normal >=60 [facility] Comment on above: Performed By: #### B MP #### [facility] [address] [address] [address] Lui Maloney Glucose [Mass/Vol] 128 mg/dL Critically high 74-106 [facility] Comment on above: Performed By: #### B MP #### [facility] [address] [address] [address] Lui Maloney Potassium [Moles/Vol] 4.3 mmol/L Normal 3.5-5.1 [facility] Comment on above: Performed By: #### B MP #### [facility] [address] [place] [address] Dr. Lui Maloney Sodium [Moles/Vol] 141 mmol/L Normal 136-145 [facility] Comment on above: Performed By: #### B MP #### [facility] [address] [place] [address] Dr. Lui Maloney Urea nitrogen [Mass/Vol] 11.0 mg/dL Normal 7.0-18.0 [facility] Comment on above: Performed By: #### B MP #### [facility] [address] [place] [address] Dr. Lui Maloney Urea nitrogen/Creatinine [Mass ratio] 12.0 mg/mg Normal [facility] Comment on above: Performed By: #### B MP #### [facility] [address] [place] [address] Dr. Lui Maloney PROTIMEon 05-14-2022 INR Coag (PPP) [Relative time] 0.94 {INR} Normal [facility] Comment on above: Performed By: #### P T, PTT #### [facility] [address] [place] [address] Dr. Lui Maloney INR GUIDELINES SEE BELOW Normal [facility] Comment on above: Result Comment: ADARSH RED INR: 2.0 - 3.0 CONDITIONS NOT LISTED BELOW 2.5 - 3.5 FOR PROSTHETIC HEART VALVE REPLACEMENT 2.5 - 3.5 RECURRENT THROMBOSIS Performed By: #### P T, PTT #### [facility] [address] [place] [address] Dr. Lui Maloney PT Coag (PPP) [Time] 10.2 s Normal 9.0-11.6 [facility] Comment on above: Performed By: #### P T, PTT #### [facility] [address] [place] [address] Dr. Lui Maloney PTTon 05-14-2022 aPTT Coag (Bld) [Time] 26.1 s Normal 22.3-36.2 [facility] Comment on above: Performed By: #### P T, PTT #### [facility] [address] [place] [address] Dr. Lui Maloney XR CHEST 2 Von [...] KEVIN ESPAÑA Date: 2022-05-14 12:46 Normal [facility] CBC W Auto Differential pane l (Bld)on 04-02-2022 Abs Immature Gran <0.03 <0.10 k/uL [facility] Basophils (Bld) [#/Vol] 10*3/uL <0.11 k/uL [facility] Basophils/100 WBC (Bld) 0.5 % [facility] Differential cell count method Nom (Bld) Auto [facility] Eosinophils (Bld) [#/Vol] 0.11 10*3/uL <0.46 k/uL [facility] Eosinophils/100 WBC (Bld) 2.5 % [facility] Erythrocyte distribution width (RBC) [Ratio] 12.1 % 11.5 - 15.0 % [facility] Hematocrit (Bld) [Volume fraction] 46.1 % 39.0 - 51.0 % [facility] Hemoglobin (Bld) [Mass/Vol] 16.2 g/dL 13.0 - 17.0 g/dL [facility] Immature Gran % 0.2 % [facility] Lymphocytes (Bld) [#/Vol] 0.88 10*3/uL Low 1.00 - 4.00 k/uL [facility] Lymphocytes/100 WBC (Bld) 20.2 % [facility] MCH (RBC) [Entitic mass] 31.0 pg 26.0 - 34.0 pg [facility] MCHC (RBC) [Mass/Vol] 35.1 g/dL 30.5 - 36.0 g/dL [facility] MCV (RBC) [Entitic vol] 88.3 fL 80.0 - 100.0 fL [facility] Monocytes (Bld) [#/Vol] 0.39 10*3/uL <0.87 k/uL [facility] Monocytes/100 WBC (Bld) 9.0 % [facility] Neutrophils (Bld) [#/Vol] 2.94 10*3/uL 1.45 - 7.50 k/uL [facility] Neutrophils/100 WBC (Bld) 67.6 % [facility] Nucleated RBC (Bld) [#/Vol] 10*3/uL <0.01 k/uL [facility] Nucleated RBC/100 WBC (Bld) [Ratio] 0.0 /100 WBC [facility] Platelet mean volume (Bld) [Entitic vol] 10.0 fL 9.0 - 12.7 fL [facility] Platelets (Bld) [#/Vol] 171 10*3/uL 150 - 400 k/uL [facility] RBC (Bld) [#/Vol] 5.22 10*6/uL 4.20 - 6.00 m/uL [facility] WBC (Bld) [#/Vol] 4.35 10*3/uL 3.70 - 11.00 k/u L [facility] Vital Signs Date Time Vital Sign Value Performing Clinician Facility 07-19-2025 10:34-0400 Body height 160 cm Immanuel Cope MD Work Phone: [facility] 07-19-2025 10:34-0400 Body mass index (BMI) [Ratio] 41.81 kg/m2 Immanuel Cope MD Work Phone: [facility] 07-19-2025 10:34-0400 Body weight 107.05 kg Immanuel Cope MD Work Phone: [facility] 07-19-2025 10:34-0400 Diastolic blood pressure 76 mm[Hg] Immanuel Cope MD Work Phone: [facility] 07-19-2025 10:34-0400 Heart rate 54 /min Immanuel Cope MD Work Phone: [facility] 07-19-2025 10:34-0400 SaO2% (BldA) [Mass fraction] 97 % Immanuel Cope MD Work Phone: [facility] 07-19-2025 10:34-0400 Systolic blood pressure 108 mm[Hg] Immanuel Cope MD Work Phone: [facility] [employer] [facility] 03-15-2025 13:48-0400 Body height 160 cm James Posada MD Work Phone: [facility] [employer] [facility] 03-15-2025 13:48-0400 Body mass index (BMI) [Ratio] 38.97 kg/m2 Jamse Posada MD Work Phone: [facility] [employer] [facility] 03-15-2025 13:48-0400 Body weight 99.79 kg James Posada MD Work Phone: [facility] [employer] [facility] 03-15-2025 13:48-0400 Diastolic blood pressure 82 mm[Hg] James oPsada MD Work Phone: [facility] [employer] [facility] 03-15-2025 13:48-0400 Heart rate 64 /min James Posada MD Work Phone: [facility] 03-15-2025 13:48-0400 SaO2% (BldA) [Mass fraction] 96 % James Posada MD Work Phone: [facility] [employer] [facility] 03-15-2025 13:48-0400 Systolic blood pressure 108 mm[Hg] James Posada MD Work Phone: [facility] [employer] [facility] 03-14-2025 12:52-0400 Body mass index (BMI) [Ratio] 38.44 kg/m2 Fadi Avelar GAMING MANAGER-LINING FELLER Work Phone: [facility] [employer] [facility] 03-14-2025 12:52-0400 Body temperature 96.8 [degF] Fadi Avelar GAMING MANAGER-LINING FELLER Work Phone: [facility] [employer] [facility] 03-14-2025 12:52-0400 Body weight 98.43 kg Fadi Avelar GAMING MANAGER-LINING FELLER Work Phone: [facility] 03-14-2025 12:52-0400 Diastolic blood pressure 60 mm[Hg] Fadi Avelar GAMING MANAGER-LINING FELLER Work Phone: [facility] 03-14-2025 12:52-0400 Heart rate 71 /min Fadi Avelar GAMING MANAGER-LINING FELLER Work Phone: [facility] 03-14-2025 12:52-0400 Respiratory rate 20 /min Fadi Avelar GAMING MANAGER-LINING FELLER Work Phone: [facility] 03-14-2025 12:52-0400 SaO2% (BldA) [Mass fraction] 98 % Fadi Avelar GAMING MANAGER-LINING FELLER Work Phone: [facility] 03-14-2025 12:52-0400 Systolic blood pressure 100 mm[Hg] Fadi Avelar GAMING MANAGER-LINING FELLER Work Phone: [facility] 01-23-2025 13:59-0500 Body mass index (BMI) [Ratio] 38.52 kg/m2 ECTOR Lux MD Work Phone: [facility] 01-23-2025 13:59-0500 Body temperature 97.2 [degF] ECTOR Lux MD Work Phone: [facility] 01-23-2025 13:59-0500 Body weight 104.2 kg ECTOR Lux MD Work Phone: [facility] 01-23-2025 13:59-0500 Diastolic blood pressure 68 mm[Hg] ECTOR Lux MD Work Phone: [facility] 01-23-2025 13:59-0500 Heart rate 94 /min ECTOR Lux MD Work Phone: [facility] 01-23-2025 13:59-0500 Respiratory rate 18 /min ECTOR Lux MD Work Phone: [facility] 01-23-2025 13:59-0500 SaO2% (BldA) [Mass fraction] 97 % ECTOR Lux MD Work Phone: [facility] 01-23-2025 13:59-0500 Systolic blood pressure 102 mm[Hg] ECTOR Lux MD Work Phone: [facility] 01-16-2025 14:37-0500 Body height 160 cm Kerri Shah GAMING MANAGER-LINING FELLER Work Phone: [facility] [employer] 01-16-2025 14:37-0500 Body mass index (BMI) [Ratio] 40.21 kg/m2 Kerri Shah GAMING MANAGER-LINING FELLER Work Phone: [facility] [employer] [facility] 01-16-2025 14:37-0500 Body weight 102.97 kg Kerri Shah GAMING MANAGER-LINING FELLER Work Phone: [facility] [employer] [facility] 01-16-2025 14:37-0500 Diastolic blood pressure 75 mm[Hg] Kerri Shah GAMING MANAGER-LINING FELLER Work Phone: [facility] 01-16-2025 14:37-0500 Heart rate 79 /min Kerri Shah GAMING MANAGER-LINING FELLER Work Phone: [facility] 01-16-2025 14:37-0500 Systolic blood pressure 115 mm[Hg] Kerri Shah GAMING MANAGER-LINING FELLER Work Phone: [facility] [employer] [facility] 01-15-2025 11:24-0500 Blood Pressure Location Leila LAMBERT [facility] 01-15-2025 11:24-0500 Body temperature 98.6 [degF] Leila LAMBERT [facility] 01-15-2025 11:24-0500 Diastolic blood pressure 73 mm[Hg] Leila LAMBERT [facility] 01-15-2025 11:24-0500 Heart rate 70 /min Leila LAMBERT [facility] 01-15-2025 11:24-0500 Respiratory rate 18 /min Leila LAMBERT [facility] 01-15-2025 11:24-0500 Systolic blood pressure 123 mm[Hg] Leila LAMBERT [facility] 10-16-2024 12:08-0500 Blood Pressure Location Leilacristian LAMBERT [facility] 10-16-2024 12:08-0500 Body temperature 98.6 [degF] Leila LAMBERT [facility] 10-16-2024 12:08-0500 Diastolic blood pressure 88 mm[Hg] Leila LAMBERT [facility] 10-16-2024 12:08-0500 Heart rate 89 /min Leila LAMBERT [facility] 10-16-2024 12:08-0500 Respiratory rate 16 /min Leila LAMBERT [facility] 10-16-2024 12:08-0500 Systolic blood pressure 137 mm[Hg] Leila LAMBERT [facility] 10-10-2024 08:59-0500 Body height 160 cm Melo Reilly DPM Work Phone: [facility] 10-10-2024 08:59-0500 Body mass index (BMI) [Ratio] 43.4 kg/m2 Melo Reilly DPM Work Phone: [facility] 10-10-2024 08:59-0500 Body weight 111.13 kg Melo Reilly DPM Work Phone: [facility] 09-26-2024 15:19-0400 Body height 160 cm Kerri Benitez DPM Work Phone: [facility] 09-26-2024 15:19-0400 Body mass index (BMI) [Ratio] 43.4 kg/m2 Kerri Benitez DPM Work Phone: [facility] 09-26-2024 15:19-0400 Body weight 111.13 kg Kerri Benitez DPM Work Phone: [facility] 09-05-2024 12:35-0400 Body height 160 cm P[facility] 1 [facility] 09-05-2024 12:35-0400 Body mass index (BMI) [Ratio] 43.4 kg/m2 P[facility] 1 [facility] 09-05-2024 12:35-0400 Body weight 111.13 kg P[facility] 1 [facility] 08-23-2024 11:38-0400 Body mass index (BMI) [Ratio] 42.48 kg/m2 Kerri Pablo GAMING MANAGER-LINING FELLER Work Phone: [facility] 08-23-2024 11:38-0400 Body weight 108.77 kg Kerri Shah GAMING MANAGER-LINING FELLER Work Phone: [facility] 08-23-2024 11:38-0400 Diastolic blood pressure 89 mm[Hg] Kerri Marksoll GAMING MANAGER-LINING FELLER Work Phone: [facility] 08-23-2024 11:38-0400 Systolic blood pressure 150 mm[Hg] Kerri Marksoll GAMING MANAGER-LINING FELLER Work Phone: [facility] 06-22-2024 13:48-0400 Body height 160.02 cm [facility] 06-22-2024 13:48-0400 Body mass index (BMI) [Ratio] 43.3 kg/m2 [facility] 06-22-2024 13:48-0400 Body weight 111 kg [facility] 03-01-2024 13:03-0400 Body height 160.02 cm [facility] 03-01-2024 13:03-0400 Body mass index (BMI) [Ratio] 43.5 kg/m2 [facility] 03-01-2024 13:03-0400 Body weight 111.58 kg [facility] 03-01-2024 13:03-0400 Diastolic blood pressure 64 mm[Hg] [facility] 03-01-2024 13:03-0400 Heart rate 55 /min [facility] 03-01-2024 13:03-0400 Systolic blood pressure 107 mm[Hg] [facility] 01-05-2024 11:13-0500 Diastolic blood pressure 66 mm[Hg] [facility] Work Phone: [facility] 01-05-2024 11:13-0500 Heart rate 61 /min [facility] Work Phone: [facility] 01-05-2024 11:13-0500 Respiratory rate 18 /min [facility] Work Phone: [facility] 01-05-2024 11:13-0500 SaO2% (BldA) [Mass fraction] 94 % [facility] Work Phone: [facility] 01-05-2024 11:13-0500 Systolic blood pressure 148 mm[Hg] [facility] Work Phone: [facility] 01-05-2024 10:03-0500 Body height 160.02 cm [facility] Work Phone: [facility] 01-05-2024 10:03-0500 Body temperature 97.7 [degF] [facility] Work Phone: [facility] 01-05-2024 10:03-0500 Body weight 108.86 kg [facility] Work Phone: [facility] 01-04-2024 14:16-0500 Body temperature 97.11 [degF] ECTOR Lux MD Work Phone: [facility] 01-04-2024 14:16-0500 Body weight 111.3 kg ECTOR Lux MD Work Phone: [facility] 01-04-2024 14:16-0500 Diastolic blood pressure 59 mm[Hg] ECTOR Lux MD Work Phone: [facility] 01-04-2024 14:16-0500 Heart rate 87 /min ECTOR Lux MD Work Phone: [facility] 01-04-2024 14:16-0500 Respiratory rate 18 /min ECTOR Lux MD Work Phone: [facility] 01-04-2024 14:16-0500 SaO2% (BldA) [Mass fraction] 98 % ECTOR Lux MD Work Phone: [facility] 01-04-2024 14:16-0500 Systolic blood pressure 102 mm[Hg] ECTOR Lux MD Work Phone: [facility] 09-13-2023 14:58-0400 Blood Pressure Location Leila LAMBERT [facility] 09-13-2023 14:58-0400 Diastolic blood pressure 74 mm[Hg] Leila LAMBERT [facility] 09-13-2023 14:58-0400 Heart rate 68 /min Leila LAMBERT [facility] 09-13-2023 14:58-0400 Respiratory rate 16 /min Leila LAMBERT [facility] 09-13-2023 14:58-0400 Systolic blood pressure 130 mm[Hg] Leila LAMBERT [facility] 07-12-2023 10:28-0400 Blood Pressure Location Leila LAMBERT [facility] 07-12-2023 10:28-0400 Diastolic blood pressure 90 mm[Hg] Leila LAMBERT [facility] 07-12-2023 10:28-0400 Heart rate 57 /min Leila LAMBERT [facility] 07-12-2023 10:28-0400 Systolic blood pressure 125 mm[Hg] Leila LAMBERT [facility] 07-06-2023 13:48-0400 Body temperature 96.3 [degF] ECTOR Lux MD Work Phone: [facility] 07-06-2023 13:48-0400 Body weight 110.95 kg NA Angélica OVIEDO Work Phone: [facility] 07-06-2023 13:48-0400 Diastolic blood pressure 75 mm[Hg] ECTOR Lux MD Work Phone: [facility] 07-06-2023 13:48-0400 Heart rate 64 /min ECTOR Lux MD Work Phone: [facility] 07-06-2023 13:48-0400 Respiratory rate 18 /min ECTOR Lux MD Work Phone: [facility] 07-06-2023 13:48-0400 SaO2% (BldA) [Mass fraction] 97 % ECTOR Lux MD Work Phone: [facility] 07-06-2023 13:48-0400 Systolic blood pressure 117 mm[Hg] ECTOR Lux MD Work Phone: [facility] 05-17-2023 12:21-0400 Blood Pressure Location Leila LAMBERT [facility] 05-17-2023 12:21-0400 Diastolic blood pressure 72 mm[Hg] Leila LAMBERT [facility] 05-17-2023 12:21-0400 Heart rate 68 /min Leila LAMBERT [facility] 05-17-2023 12:21-0400 Respiratory rate 16 /min Leila LAMBERT [facility] 05-17-2023 12:21-0400 Systolic blood pressure 130 mm[Hg] Leila LAMBERT [facility] 05-05-2023 13:45-0400 Body height Imad Asaad Other [employer] Other 05-05-2023 13:45-0400 Body mass index (BMI) [Ratio] 42.51 kg/m2 Imad Asaad Other [employer] [facility] 05-05-2023 13:45-0400 Body weight 108.86 kg Imad Asaad Other [employer] Other 05-05-2023 13:45-0400 Diastolic blood pressure 69 mm[Hg] Imad Asaad Other [employer] Other 05-05-2023 13:45-0400 Systolic blood pressure 125 mm[Hg] Imad Asaad Other [employer] [facility] 03-08-2023 15:05-0400 Blood Pressure Location Leila LAMBERT [facility] 03-08-2023 15:05-0400 Diastolic blood pressure 75 mm[Hg] Leila LAMBERT [facility] 03-08-2023 15:05-0400 Heart rate 72 /min Leila LAMBERT [facility] 03-08-2023 15:05-0400 Respiratory rate 16 /min Leila LAMBERT [facility] 03-08-2023 15:05-0400 Systolic blood pressure 118 mm[Hg] Leila LAMBERT [facility] 09-04-2022 11:43-0400 Blood Pressure Location Leila LAMBERT [facility] 09-04-2022 11:43-0400 Diastolic blood pressure 93 mm[Hg] Leila LAMBERT [facility] 09-04-2022 11:43-0400 Heart rate 63 /min Leila LAMBERT [facility] 09-04-2022 11:43-0400 Systolic blood pressure 157 mm[Hg] Leila LAMBERT [facility] 07-07-2022 14:32-0400 Body temperature 96.91 [degF] ECTOR Lux MD Work Phone: [facility] 07-07-2022 14:32-0400 Body weight 104.78 kg ECTOR Lux MD Work Phone: [facility] 07-07-2022 14:32-0400 Diastolic blood pressure 76 mm[Hg] ECOTR Lux MD Work Phone: [facility] 07-07-2022 14:32-0400 Heart rate 79 /min ECTOR Lux MD Work Phone: [facility] 07-07-2022 14:32-0400 Respiratory rate 16 /min ECTOR Lux MD Work Phone: [facility] 07-07-2022 14:32-0400 SaO2% (BldA) [Mass fraction] 97 % ECTOR Lux MD Work Phone: [facility] 07-07-2022 14:32-0400 Systolic blood pressure 117 mm[Hg] ECTOR Lux MD Work Phone: [facility] 06-18-2022 08:30-0400 Body temperature 96.91 [degF] ECTOR Lux MD Work Phone: [facility] 06-18-2022 08:30-0400 Body weight 105.51 kg ECTOR Lux MD Work Phone: [facility] 06-18-2022 08:30-0400 Diastolic blood pressure 70 mm[Hg] ECTOR Lux MD Work Phone: [facility] 06-18-2022 08:30-0400 Heart rate 51 /min ECTOR Lux MD Work Phone: [facility] 06-18-2022 08:30-0400 Respiratory rate 16 /min ECTOR Lux MD Work Phone: [facility] 06-18-2022 08:30-0400 SaO2% (BldA) [Mass fraction] 98 % ECTOR Lux MD Work Phone: [facility] 06-18-2022 08:30-0400 Systolic blood pressure 103 mm[Hg] ECTOR Lux MD Work Phone: [facility] 06-04-2022 13:37-0400 Body temperature 97.39 [degF] ECTOR Lux MD Work Phone: [facility] 06-04-2022 13:37-0400 Body weight 105.33 kg ECTOR Lux MD Work Phone: [facility] 06-04-2022 13:37-0400 Diastolic blood pressure 76 mm[Hg] ECTOR Lux MD Work Phone: [facility] 06-04-2022 13:37-0400 Heart rate 59 /min ECTOR Lux MD Work Phone: [facility] 06-04-2022 13:37-0400 Respiratory rate 18 /min ECTOR Lux MD Work Phone: [facility] 06-04-2022 13:37-0400 SaO2% (BldA) [Mass fraction] 97 % ECTOR Lux MD Work Phone: [facility] 06-04-2022 13:37-0400 Systolic blood pressure 128 mm[Hg] ECTOR Lux MD Work Phone: [facility] 04-20-2022 13:36-0400 Body temperature 97.59 [degF] ECTOR Lux MD Work Phone: [facility] 04-20-2022 13:36-0400 Body weight 111.58 kg ECTOR Lux MD Work Phone: [facility] 04-20-2022 13:36-0400 Diastolic blood pressure 63 mm[Hg] ECTOR Lux MD Work Phone: [facility] 04-20-2022 13:36-0400 Heart rate 56 /min ECTOR Lux MD Work Phone: [facility] 04-20-2022 13:36-0400 Respiratory rate 18 /min ECTOR Lux MD Work Phone: [facility] 04-20-2022 13:36-0400 SaO2% (BldA) [Mass fraction] 99 % ECTOR Lux MD Work Phone: [facility] 04-20-2022 13:36-0400 Systolic blood pressure 110 mm[Hg] ECTOR Lux MD Work Phone: [facility] 04-13-2022 13:48-0400 Body temperature 96.69 [degF] Yevgeniy Son MD Work Phone: [facility] 04-13-2022 13:48-0400 Body weight 106.59 kg Yevgeniy Son MD Work Phone: [facility] 04-13-2022 13:48-0400 Diastolic blood pressure 85 mm[Hg] Yevgeniy Son MD Work Phone: [facility] 04-13-2022 13:48-0400 Heart rate 62 /min Yevgeniy Son MD Work Phone: [facility] 04-13-2022 13:48-0400 Respiratory rate 20 /min Yevgeniy Son MD Work Phone: [facility] 04-13-2022 13:48-0400 SaO2% (BldA) [Mass fraction] 97 % Yevgeniy Son MD Work Phone: [facility] 04-13-2022 13:48-0400 Systolic blood pressure 145 mm[Hg] Yevgeniy Son MD Work Phone: [facility] 04-06-2022 13:32-0400 Body temperature 96.69 [degF] ECTOR Lux MD Work Phone: [facility] 04-06-2022 13:32-0400 Body weight 107.96 kg ECTOR Lux MD Work Phone: [facility] 04-06-2022 13:32-0400 Diastolic blood pressure 72 mm[Hg] ECTOR Lux MD Work Phone: [facility] 04-06-2022 13:32-0400 Heart rate 63 /min ECTOR Lux MD Work Phone: [facility] 04-06-2022 13:32-0400 Respiratory rate 16 /min ECTOR Lux MD Work Phone: [facility] 04-06-2022 13:32-0400 SaO2% (BldA) [Mass fraction] 98 % ECTOR Lux MD Work Phone: [facility] 04-06-2022 13:32-0400 Systolic blood pressure 145 mm[Hg] ECTOR Lux MD Work Phone: [facility] 03-31-2022 13:36-0400 Body temperature 97.11 [degF] ECTOR Lux MD Work Phone: [facility] 03-31-2022 13:36-0400 Body weight 109.32 kg ECTOR Lux MD Work Phone: [facility] 03-31-2022 13:36-0400 Diastolic blood pressure 50 mm[Hg] ECTOR Lux MD Work Phone: [facility] 03-31-2022 13:36-0400 Heart rate 55 /min ECTOR Lux MD Work Phone: [facility] 03-31-2022 13:36-0400 Respiratory rate 16 /min ECTOR Lux MD Work Phone: [facility] 03-31-2022 13:36-0400 SaO2% (BldA) [Mass fraction] 98 % ECTOR Lux MD Work Phone: [facility] 03-31-2022 13:36-0400 Systolic blood pressure 128 mm[Hg] ECTOR Lux MD Work Phone: [facility] 03-23-2022 15:33-0400 Body temperature 97.2 [degF] ECTOR Lux MD Work Phone: [facility] 03-23-2022 15:33-0400 Body weight 106.59 kg ECTOR Lux MD Work Phone: [facility] 03-23-2022 15:33-0400 Diastolic blood pressure 50 mm[Hg] ECTOR Lux MD Work Phone: [facility] 03-23-2022 15:33-0400 Heart rate 69 /min ECTOR Lux MD Work Phone: [facility] 03-23-2022 15:33-0400 Respiratory rate 18 /min ECTOR Lux MD Work Phone: [facility] 03-23-2022 15:33-0400 SaO2% (BldA) [Mass fraction] 97 % ECTOR Lux MD Work Phone: [facility] 03-23-2022 15:33-0400 Systolic blood pressure 104 mm[Hg] ECTOR Lux MD Work Phone: [facility] 03-11-2022 12:55-0400 Body height 164.5 cm ECTOR Lux MD Work Phone: [facility] 03-11-2022 12:55-0400 Body temperature 96.69 [degF] ECTOR Lux MD Work Phone: [facility] 03-11-2022 12:55-0400 Body weight 108.86 kg ECTOR Lux MD Work Phone: [facility] 03-11-2022 12:55-0400 Diastolic blood pressure 78 mm[Hg] ECTOR Lux MD Work Phone: [facility] 03-11-2022 12:55-0400 Heart rate 61 /min ECTOR Lux MD Work Phone: [facility] 03-11-2022 12:55-0400 Respiratory rate 16 /min ECTOR Lux MD Work Phone: [facility] 03-11-2022 12:55-0400 SaO2% (BldA) [Mass fraction] 95 % ECTOR Lux MD Work Phone: [facility] 03-11-2022 12:55-0400 Systolic blood pressure 128 mm[Hg] ECTOR Lux MD Work Phone: [facility] Encounters Encounter Date Encounter Type Care Provider Facility Start: 09-17-2025 ambulatory Leila LAMBERT Facili ty:[facility] Start: 09-13-2025 End: 09-13-2025 ambulatory Leila LAMBERT Facility:[facility] Start: 09-13-2025 End: 09-13-2025 Patient encounter procedure [facility] Start: 08-13-2025 End: 08-13-2025 ambulatory Leila LAMBERT Facility:[facility] [place] Start: 08-13-2025 End: 08-13-2025 Patient encounter procedure [facility] Start: 07-19-2025 End: 07-19-2025 Office outpatient visit 25 minutes Kinjal Burton PA-C Work Phone: [facility] Comment on above: Primary hypertension (Primary Dx) Start: 07-19-2025 End: 07-19-2025 ambulatory IMMANUEL COPE [facility] Start: 07-18-2025 End: 07-18-2025 Telephone encounter Mallika Anderson CMA [facility] Start: 06-20-2025 End: 06-21-2025 Refill Ignacia Abdul RN [facility] Comment on above: Med Refill Start: 06-14-2025 End: 06-14-2025 Emergency department patient visit [facility] Start: 04-11-2025 ambulatory [facility]A [facility] Facility :[facility] Start: 04-11-2025 End: 04-11-2025 Subsequent hospital visit by physician Arrival Time Radiology Work Phone: [facility] Start: 04-10-2025 End: 04-10-2025 Refill Kaleigh Bearden RN [facility] Comment on above: Med Refill Chest Pain Start: 04-10-2025 End: 04-10-2025 Emergency department patient visit [facility] Start: 04-02-2025 End: 04-04-2025 Telephone encounter Jhony Lux MD Work Phone: [facility] Comment on above: Nm Pet Request Start: 03-26-2025 End: 03-26-2025 ambulatory Leila Calvin LAMBERT Facility:[facility] [place] Start: 03-22-2025 End: 03-23-2025 Refill Ignacia Abdul RN [facility] Comment on above: Med Refill Start: 03-15-2025 End: 03-15-2025 Office outpatient visit 25 minutes James Posada MD Work Phone: [facility] Comment on above: S/P CABG x 2 (Primar y Dx); Postoperative atrial fibrillation ([facility]) Start: 03-15-2025 End: 03-15-2025 ambulatory [facility] Start: 03-14-2025 End: 03-14-2025 Telephone encounter Jeri Bales CMA [facility] Start: 03-14-2025 End: 03-14-2025 Postop follow up visit related to original px 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 ([facility]) (Primary Dx) Start: 03-14-2025 End: 03-14-2025 ambulatory [facility] Start: 03-07-2025 End: 03-07-2025 ambulatory Leila LAMBERT Facility:[facility] Start: 03-05-2025 End: 03-05-2025 Telephone encounter Millie Mahera Allie simpson Comment on above: orders (Contract: [id number] [phone] [facility] re orders) Start: 03-05-2025 ambulatory Leila Granger ty:[facility] Start: 03-04-2025 End: 03-04-2025 Telephone encounter Millie [facility]iel simpson Comment on above: Hypotension (Contrac t: [id number] [facility] re Low blood pressure; Rm [id number]) Start: 03-03-2025 End: 03-03-2025 Telephone encounter Germania [facility] Call Maciel simpson Comment on above: Acute PA Start: 03-02-2025 ambulatory HANK ONIEL [facility] Start: 03-01-2025 ambulatory Leila Granger ty:[facility]ete Start: 02-28-2025 End: 02-28-2025 ambulatory [facility] Start: 02-27-2025 End: 03-07-2025 Evaluation and management of inpatient [facility] Start: 02-27-2025 ambulatory [facility] Start: 02-24-2025 End: 02-27-2025 ambulatory [facility] Start: 02-23-2025 End: 02-23-2025 Emergency department patient visit [facility] Start: 02-22-2025 End: 02-22-2025 ambulatory Leila Petra [facility] Work Phone: Start: 02-22-2025 End: 02-22-2025 Departed Referred Anjana Dietz DPM Work Phone: [facility] [place] [facility] Start: 02-22-2025 End: 02-22-2025 ambulatory Leila LAMBERT Facility:CD:[id number] Start: 02-20-2025 End: 02-20-2025 ambulatory WILIAN MENDIETA Facility:[facility] Start: 02-06-2025 End: 02-06-2025 ambulatory Leila LAMBERT Facility[facility] [facility] [place] Start: 02-06-2025 End: 02-06-2025 Patient encounter procedure Leila LAMBERT [facility] Start: 02-01-2025 ambulatory ANJANA Ross [facility] Start: 01-23-2025 End: 01-23-2025 Office outpatient visit 15 minutes Jhony Lux MD Work Phone: Radiation Oncology Comment on above: Prostate cancer (HCC ) (Primary Dx) Start: 01-23-2025 End: 01-23-2025 ambulatory Jhony LUX Facility:[facility] Start: 01-16-2025 End: 01-16-2025 Office outpatient visit 15 minutes Kerri Shah GAMING MANAGER-LINING FELLER Work Phone: [facility] General Surgery Comment on above: Gastroenteritis and colitis, viral (Primary Dx); Irritable bowel syndrome, unspecified type Start: 01-16-2025 End: 01-16-2025 ambulatory [facility] Start: 01-15-2025 End: 01-15-2025 ambulatory Leila LAMBERT Facility:[facility] Start: 01-15-2025 End: 01-15-2025 Patient encounter procedure Leila LAMBERT [facility] Start: 01-10-2025 End: 01-10-2025 Lab Drop off Maricruz LeaElana Johnson [facility] Start: 01-10-2025 End: 01-10-2025 ambulatory Leila LAMBERT Facility:[facility] Start: 01-10-2025 End: 01-10-2025 Patient encounter procedure Leila LAMBERT [facility] Start: 01-05-2025 End: 01-09-2025 Emergency department patient visit TRACY [facility] Start: 01-05-2025 End: 01-08-2025 ambulatory [facility] Start: 01-02-2025 End: 01-02-2025 Emergency department patient visit [facility] Start: 12-11-2024 End: 12-11-2024 [facility] Work Phone: Start: 12-11-2024 End: 12-11-2024 Departed Referred Anjana Dietz DPM Work Phone: [facility] Start: 12-06-2024 Non-patient / Non-visit Anjana Dietz DPM Work Phone: Counts Include [facility] Work Phone: Start: 10-16-2024 End: 10-16-2024 ambulatory Leila LAMBERT Facility:[facility] Start: 10-16-2024 End: 10-16-2024 Patient encounter procedure Leila LAMBERT [facility] Start: 10-10-2024 End: 10-10-2024 Bamboo flowsheet Melo Reilly DPM Work Phone: [facility] Start: 10-10-2024 End: 10-10-2024 Bamboo flowsheet Melo Reilly DPM Work Phone: [facility] Start: 10-10-2024 End: 10-10-2024 Office outpatient visit 15 minutes Melo Reilly DPM Work Phone: [facility] Comment on above: Arthritis of left an kle (Primary Dx); Other synovitis and tenosynovitis, left ankle and foot; Chronic pain of left ankle Start: 10-10-2024 End: 10-10-2024 ambulatory MELO REILLY Not Available Start: 10-03-2024 End: 10-03-2024 ambulatory Leila LAMBERT Facility:[facility] [place] Start: 10-03-2024 End: 10-03-2024 Lab Drop off Leila LAMBERT [facility] Start: 10-03-2024 End: 10-03-2024 ambulatory Leila LAMBERT Facility:[facility] Start: 10-03-2024 End: 10-03-2024 Patient encounter procedure Leila LAMBERT [facility] Start: 09-26-2024 End: 09-26-2024 Office outpatient visit 15 minutes Kerri Benitez DPM Work Phone: [facility] Comment on above: Arthritis of left an kle (Primary Dx); Other enthesopathy of left foot and ankle; Chronic pain of left ankle; Other synovitis and tenosynovitis, left ankle and foot Start: 09-26-2024 End: 09-26-2024 ambulatory KERRI BENITEZ Not Available Start: 09-26-2024 End: 09-26-2024 Bamboo flowsheet Kerri Benitez DPM Work Phone: [facility] Start: 09-26-2024 End: 09-26-2024 Bamboo flowsheet Kerri Benitez DPM Work Phone: [facility] Start: 09-15-2024 End: 09-15-2024 Telephone encounter Willie Jason CMA [facility] General Surgery Start: 09-11-2024 End: 09-11-2024 Evaluation and management of inpatient TRACY CHAU [facility] Start: 09-05-2024 End: 09-05-2024 ambulatory [facility] Pat Phone Call Provider 1 [facility] - Pre Admit Start: 09-05-2024 End: 09-05-2024 ambulatory [facility] Start: 08-28-2024 End: 08-28-2024 ambulatory [facility] Start: 08-24-2024 End: 08-30-2024 Telephone encounter Kerri Benitez DPM Work Phone: [facility] Comment on above: Advice Only Start: 08-23-2024 End: 08-23-2024 Office outpatient new 30 minutes [facility] Abram Shah GAMING MANAGER-LINING FELLER Work Phone: [facility] Comment on above: Diarrhea, unspecifie d type (Primary Dx); Fecal urgency; Personal history of prostate cancer Start: 08-23-2024 End: 08-23-2024 ambulatory [facility] Start: 07-18-2024 End: 07-18-2024 Bamboo flowsheet Kerri Benitez DPM Work Phone: [facility] Start: 07-18-2024 End: 07-18-2024 Bamboo flowsheet Kerri Benitez DPM Work Phone: [facility] Start: 07-18-2024 End: 07-18-2024 Office outpatient visit 25 minutes Kerri Benitez DPM Work Phone: [facility] Comment on above: Arthritis of left an kle (Primary Dx); Other enthesopathy of left foot and ankle; Chronic pain of left ankle; Other synovitis and tenosynovitis, left ankle and foot; Difficulty walking Start: 07-18-2024 End: 07-18-2024 ambulatory KERRI BENITEZ Not Available Start: 06-23-2024 End: 06-23-2024 ambulatory KERRI BENITEZ Not Available Start: 06-22-2024 End: 06-22-2024 ambulatory [facility] Work Phone: Start: 06-22-2024 End: 06-22-2024 Patient encounter procedure Counts Include [address] [facility] Work Phone: Start: 06-15-2024 End: 06-15-2024 ambulatory KERRI BENITEZ Not Available Start: 05-16-2024 End: 05-16-2024 ambulatory KERRI BENITEZ Not Available Start: 03-17-2024 End: 03-17-2024 ambulatory Leila LAMBERT Facility:[facility] [place] Start: 03-17-2024 End: 03-17-2024 Lab Drop off Leila LAMBERT [facility] Start: 03-17-2024 End: 03-17-2024 ambulatory Leila LAMBERT Facility:[facility] Start: 03-17-2024 End: 03-17-2024 Patient encounter procedure Leila LAMBERT [facility] Start: 03-01-2024 End: 03-01-2024 ambulatory [facility] Work Phone: Start: 03-01-2024 End: 03-01-2024 Patient encounter procedure Counts Include [address] [facility] Work Phone: Start: 01-05-2024 Non-patient / Non-visit [facility] Work Phone: Counts Include [address] [facility] Work Phone: Start: 01-04-2024 End: 01-04-2024 Patient encounter procedure Jhony Lux MD Work Phone: Radiation Oncology Comment on above: History of prostate cancer (Primary Dx); Prostate cancer (HCC) Start: 11-30-2023 End: 11-30-2023 ambulatory José Miguel [employer] Dept Work Phone: [facility] Work Phone: Start: 11-30-2023 End: 11-30-2023 Patient encounter procedure [employer] Dept Work Phone: [facility] [place] Work Phone: Start: 11-30-2023 End: 11-30-2023 Patient encounter procedure José Migueli2 [employer] Dept Work Phone: Counts Include [address] [facility] Work Phone: Start: 09-13-2023 End: 09-13-2023 Patient encounter procedure Leila LAMBERT [facility] Start: 07-12-2023 End: 07-12-2023 Patient encounter procedure Leila LAMBERT [facility] Start: 07-06-2023 End: 07-06-2023 Patient encounter procedure Jhony Lux MD Work Phone: Radiation Oncology Comment on above: Malignant neoplasm o f prostate (HCC) (Primary Dx); Gynecomastia, male Start: 05-17-2023 End: 05-17-2023 Patient encounter procedure Leila LAMBERT [facility] Start: 05-12-2023 End: 05-12-2023 Patient encounter procedure Leila LABMERT [facility] Start: 05-05-2023 End: 05-05-2023 ambulatory Imad Asaad Other [facility] [employer] Other Start: 05-05-2023 Office outpatient ne w 45 minutes Imad Asaad [facility] Start: 03-08-2023 End: 03-08-2023 Patient encounter procedure Leila LAMBERT [facility] Start: 02-16-2023 End: 02-17-[address] LEILA LAMBERT . Facility:[facility] Start: 01-21-2023 End: 01-21-[address] Work Phone: [facility] Start: 01-21-2023 End: 01-21-20[address] therapy Albina Russell RD Work Phone: Nutrition Therapy Comment on above: Nutrition Telephone Start: 01-20-2023 ambulatory Facility:1 [id number] Start: 01-20-2023 End: 01-20-2023 Patient encounter procedure Edgar Lopez [facility] Start: 09-04-2022 End: 09-04-2022 Patient encounter procedure Leila LAMBERT [facility] Start: 07-15-2022 End: 07-15-2022 Patient encounter procedure Pascale Wahl [facility] Start: 07-07-2022 End: 07-07-2022 Patient encounter procedure Jhony Lux MD Work Phone: Radiation Oncology Comment on above: Malignant neoplasm o f prostate (HCC) (Primary Dx) Start: 06-18-2022 End: 06-18-2022 Patient encounter procedure Jhony Lux MD Work Phone: Radiation Oncology Comment on above: Malignant neoplasm o f prostate (HCC) (Primary Dx) Start: 06-18-2022 Radiation Oncology Note G Anthony Lux MD Work Phone: Radiation Oncology Comment on above: Simulation Note Start: 06-18-2022 End: 06-18-2022 Subsequent hospital visit by physician Pet Ct Scan Charlton Mc Work Phone: Radiology Pet CT Start: 06-04-2022 End: 06-04-2022 Patient encounter procedure Jhony Johan Lux MD Work Phone: Radiation Oncology Comment on above: Malignant neoplasm o f prostate (HCC) (Primary Dx) Start: 05-27-2022 End: 05-27-2022 Patient encounter procedure Maricruz Johnson [facility] Start: 05-21-2022 End: 05-21-[address] LEILA LAMBERT . Facility:[facility] Start: 05-21-2022 End: 05-21-2022 Patient encounter procedure Jhony Lux MD Work Phone: Radiation Oncology Comment on above: Malignant neoplasm o f prostate (HCC) (Primary Dx) Start: 05-15-2022 Encounter for preprocedural cardiovascular examination DR LEILA LAMBERT . [facility] Start: 05-15-2022 Encounter for preprocedural laboratory examination DR LEILA LAMBERT . [facility] Start: 05-14-2022 End: 05-15-[address] LEILA LAMBERT . Facility:[facility] Start: 05-14-2022 End: 05-15-2022 Encounter for preprocedural cardiovascular examination DR LEILA LAMBERT . Facility:[facility] Start: 05-12-2022 Patient encounter procedure Jhony Lux MD Work Phone: [place] Start: 05-12-2022 Radiation Oncology Note Jhony Lux MD Work Phone: Radiation Oncology Comment on above: Treatment Planning Start: 05-05-2022 End: 05-05-2022 Patient encounter procedure Jhony uLx MD Work Phone: Radiation Oncology Comment on above: Malignant neoplasm o f prostate (HCC) (Primary Dx) Start: 05-05-2022 Radiation Oncology Note Jhony Lux MD Work Phone: Radiation Oncology Comment on above: Simulation Note Start: 04-24-2022 Patient encounter procedure Jhony Lux MD Work Phone: [facility] Start: 04-24-2022 Radiation Oncology Note G Anthony Lux MD Work Phone: Radiation Oncology Comment on above: Completion Note Start: 04-21-2022 End: 04-21-2022 Patient encounter procedure Lab/[place] Work Phone: Radiation Oncology Comment on above: [...] 04-02-2022 End: 04-02-2022 Patient encounter procedure Lab/[place] Work Phone: Radiation Oncology Comment on above: Prostate cancer (HCC ) Malignant neoplasm o f prostate (HCC) (Primary Dx) Start: 03-31-2022 End: 03-31-2022 Patient encounter procedure Jhony Lux MD Work Phone: Radiation Oncology Comment on above: Malignant neoplasm o f prostate (HCC) (Primary Dx) Start: 03-25-2022 Patient encounter procedure [facility] Provider [facility] Start: 03-23-2022 End: 03-23-2022 Patient encounter procedure Jhony Lux MD Work Phone: Radiation Oncology Comment on above: Malignant neoplasm o f prostate (HCC) (Primary Dx) Start: 03-20-2022 Patient encounter procedure [facility] Provider [facility] Start: 03-20-2022 Telephone encounter Jhony [...] Date Procedure Procedure Detail Performing Clinician Start: 03-15-2025 Follow-up visit Follow-up JAMES CALI Start: 02-28-2025 Adult depression scr eening assessment Germania Hilton Start: 02-25-2025 Lipid 1996 panel - S frantz or Plasma [facility] Radiology Work Phone: Start: 02-22-2025 Transurethral prostatectomy Leila LAMBERT Start: 02-06-2025 Cystoscopy Leila ORTIZ Start: 01-10-2025 PSA screening [facility] Provi kaylen Start: 01-06-2025 Lipid 1996 panel - S frantz or Plasma ECTOR Lux MD Work Phone: Start: 09-11-2024 Colonoscopy 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 Lui Maloney Start: 06-23-2022 Lipid 1996 panel - S frantz or Plasma ECTOR Lux MD Work Phone: Start: 05-21-2022 Implantation of radi oactive seed into prostate Rohitsven Maryuri Start: 04-02-2022 Blood count complete auto&auto difrntl wbc G Johan Lux MD Work Phone: Start: 02-05-2022 MRI-US fusion guided transrectal biopsy of prostate Maricruz Lue Start: 01-08-2022 MRI of prostate Maricruz L ue Colonoscopy Maricruz Lue Coronary artery bypa ss grafts x 2 Leila LAMBERT History of coronary artery bypass grafting S/P CABG x 2 James Posada MD Work Phone: History of coronary artery bypass grafting S/P CABG x 2 Ignacia Abdul RN History of coronary artery bypass grafting S/P CABG x 2 Kaleigh Bearden RN Plan of Treatment Date Care Activity Detail Author Start: 09-11-2034 Screening for malignant neoplasm of colon [facility] Start: 02-25-2030 Lipid panel Lipid Screening [facility] Start: 01-10-2030 Prostate specific antigen measurement Prostate Cancer Screening Discussion [facility] Start: 01-06-2030 Lipid panel Lipid Screening [facility] Start: 09-11-2029 Screening for malignant neoplasm of colon Colonoscopy [facility] Start: 09-06-2028 Prostate specific antigen measurement Prostate Cancer Screening Discussion [facility] Start: 04-10-2028 Diabetes Screening Diabetes Screening [facility] Start: 02-17-2028 PROSTATE CANCER SCREENING DISCUSSION PROSTATE CANCER SCREENING DISCUSSION [facility] Start: 01-08-2028 Diabetes Screening Diabetes Screening [facility] Start: 07-03-2027 PROSTATE CANCER SCREENING DISCUSSION PROSTATE CANCER SCREENING DISCUSSION [facility] Start: 06-23-2027 Lipid panel Lipid Screening [facility] Start: 06-23-2027 LIPID SCREEN LIPID SCREEN [facility] Start: 07-19-2026 Adult BMI Screening Adult BMI Screening [facility] Start: 06-14-2026 Adult BMI Screening Adult BMI Screening [facility] Start: 04-10-2026 Adult BMI Screening Adult BMI Screening [facility] Start: 04-10-2026 Tobacco Screening Tobacco Screening [facility] Start: 03-23-2026 Statin Use: Cardiovascular Statin Use: Cardiovascular [facility] Start: 03-15-2026 Adult BMI Screening Adult BMI Screening [facility] Start: 03-15-2026 Tobacco Screening Tobacco Screening [facility] Start: 03-07-2026 Adult BMI Screening Adult BMI Screening [facility] Start: 03-05-2026 Adult BMI Screening Adult BMI Screening [facility] Start: 03-04-2026 Adult BMI Screening Adult BMI Screening [facility] Start: 03-02-2026 Adult BMI Screening Adult BMI Screening [facility] Start: 03-02-2026 Tobacco Screening Tobacco Screening [facility] Start: 02-28-2026 Depression Screening Depression Screening [facility] Start: 01-24-2026 End: 01-24-2026 Patient encounter procedure Radiation Oncology Comment on above: 1 year follow up Start: 01-23-2026 End: 04-24-2026 Prostate specific Ag [Mass/volume] in Serum or Plasma PROSTATE-SPECIFIC ANTIGEN DIAGNOSTIC Lab Routine Prostate cancer (HCC) Expected: 01/23/2026, Expires: 04/24/[address] [facility] Work Phone: Comment on above: Expected: 01/23/2026, Expires: Start: 01-16-2026 Adult BMI Screening Adult BMI Screening [facility] Start: 01-16-2026 Tobacco Screening Tobacco Screening [facility] Start: 09-11-2025 Adult BMI Screening Adult BMI Screening [facility] Start: 09-11-2025 Tobacco Screening Tobacco Screening [facility] Start: 08-28-2025 Adult BMI Screening Adult BMI Screening [facility] Start: 08-23-2025 Adult BMI Screening Adult BMI Screening [facility] Start: 08-23-2025 Tobacco Screening Tobacco Screening [facility] Start: 07-30-2025 Influenza vaccination Influenza Vaccine [facility] Start: 07-19-2025 End: 07-19-2025 Patient encounter procedure 07/19/2025 10:45 AM EDT Office Visit [facility] [address] [place] [address] Kinjal Burton PA-C [address] [place] [address] Immanuel Cope MD [address] [place] [address] [facility] Start: 06-23-2025 Diabetes Screening Diabetes Screening [facility] Start: 06-22-2025 DIABETES SCREEN DIABETES SCREEN [facility] Start: 06-21-2025 End: 06-21-2025 Patient encounter procedure 06/21/2025 2:15 PM EDT Office Visit [facility] [address] [place] [address] Kinjal Burton PA-C [address] [place] [address] Clarence Maza MD [address] [place] [phone] [facility] Start: 06-19-2025 End: 06-19-2025 Patient encounter procedure 06/19/2025 2:00 PM EDT Office Visit [facility] [address] [place] [address] Kinjal Burton PA-C [address] [place] [address] [facility] Start: 04-11-2025 End: 04-11-2025 Patient encounter procedure 04/11/2025 1:30 PM EDT Appointment Radiology [facility] [address] [place] [address] [facility]-outside order [facility]iology [facility] Comment on above: [facility]-outside order Start: 04-03-2025 Covid-19 Vaccine () Covid-19 Vaccine () [facility] Start: 04-03-2025 COVID-19 Vaccine (4 - Mixed Product risk ) COVID-19 Vaccine (4 - Mixed Product risk ) [facility] Start: 03-15-2025 End: 03-15-2025 Patient encounter procedure 03/15/2025 2:00 PM EDT Office Visit [facility] [address] [place] [phone] James Posada MD [address] [place] [address] [facility] Start: 03-14-2025 End: 03-14-2025 Patient encounter procedure 03/14/2025 1:00 PM EDT [facility] [address] [place] [phone] [facility] Start: 01-02-2025 End: 01-02-2025 Patient encounter procedure 01/02/2025 1:45 PM EST Office Visit Radiation Oncology [address] [place] [address] Jhony Lux MD [address] [place] [address] 1 yr rv Radiation Oncology Comment on above: 1 yr rv Start: 11-29-2024 Advance Directive Discussion Advance Directive Discussion [facility] Start: 11-29-2024 COVID-19 Vaccine ( season) COVID-19 Vaccine ( season) [facility] Start: 10-10-2024 End: 10-10-2024 Patient encounter procedure 10/10/2024 9:00 AM EST Office Visit [facility] [address] [place] [phone] Melo Reilly, DPM [address] [place] [address] [facility] Start: 09-26-2024 End: 09-26-2024 [facility] Comment on above: Arrived Start: 09-11-2024 End: 09-11-2024 Admission to same day surgery center 09/11/2024 11:30 AM EDT - 09/11/2024 12:00 PM EDT Surgery [facility] [address] [place] [phone] Tracy Chau, DO [address] [place], [place] [phone] COLONOSCOPY DIAGNOSTIC / SCREENING [91814 (CPT )] [facility] Comment on above: COLONOSCOPY DIAGNOSTIC / SCREENING [4537 8 (CPT )] Start: 09-11-2024 End: 09-11-2024 Colonoscopy flx dx w/collj spec when pfrmd COLONOSCOPY DIAGNOSTIC / SCREENING diarrhea 09/11/2024 11:30 AM EDT [facility] Start: 09-11-2024 Subsequent hospital visit by physician 09/11/2024 11:30 AM EDT Hospital Encounter [facility] [address] [place] [phone] Tracy Chau, DO [address] [place], [place] [phone] [facility] - Surgery Start: 09-05-2024 End: 09-05-2024 ambulatory 09/05/2024 2:50 PM EDT Support Visit [facility] - Pre Admit [address] [place] [phone] [facility] - Pre Admit Start: 08-28-2024 End: 08-28-2024 Patient encounter procedure 08/28/2024 11:30 AM EDT Appointment [facility] - CT Imaging [address] [place] [phone] [facility] - CT Imaging Start: 08-17-2024 End: 08-17-2024 Patient encounter procedure 08/17/2024 3:15 PM EDT Office Visit [facility] [address] [place] [phone] Kerri Benitez, BENITO [address] [place] [address] [facility] Start: 07-30-2024 Covid-19 Vaccine ( season) Covid-19 Vaccine ( season) [facility] Start: 07-30-2024 Influenza vaccination [facility] Start: 07-18-2024 End: 07-18-2024 Patient encounter procedure 07/18/2024 1:15 PM EDT [facility] [address] [place] [phone] Kerri Benitez DPM [address] [place] [address] [facility] Comment on above: Arrived Start: 2024 Abdominal aortic aneurysm screening Abdominal Aortic Aneurysm (AAA) Screen [facility] Start: 2024 Advance Directive Discussion Advance Directive Discussion [facility] Start: 2024 Fall Risk Screening Fall Risk Screening [facility] Start: 2024 Pneumococcal Vaccine: 65+ Years (1 of 1 - PCV) Pneumococcal Vaccine: 65+ Years (1 of 1 - PCV) [facility] Start: 01-05-2024 [facility] Start: 11-29-2023 Depression Assessment Depression Assessment [facility] Start: 07-30-2023 Covid-19 Vaccine ( season) Covid-19 Vaccine () [facility] Start: 07-30-2023 Influenza vaccination [facility] Start: 11-29-2022 DEPRESSION ASSESSMENT DEPRESSION ASSESSMENT [facility] Start: 07-30-2022 Influenza vaccination [facility] Start: 07-05-2022 End: 09-04-2022 Prostate specific Ag [Mass/volume] in Serum or Plasma PSA/PROSTSPECAG DIAG Lab Routine Malignant neoplasm of prostate (HCC) Expected: 07/05/2022, Expires: 09/04/[address] [facility] Work Phone: Comment on above: Expected: 07/05/2022, Expires: 2 Start: 04-28-2022 End: 06-28-2022 UA DIP B/O UA DIP B/O Lab Routine Malignant neoplasm of prostate (HCC) Dysuria Expected: 04/28/2022, Expires: 06/28/[address] [facility] Work Phone: Comment on above: Expected: 04/28/2022, Expires: 2 Start: 04-20-2022 End: 06-20-2022 Urinalysis complete panel - Urine URINALYSIS, WITH MICROSCOPIC Lab Routine Malignant neoplasm of prostate (HCC) Expected: 04/20/2022, Expires: 06/20/[address] [facility] Work Phone: Comment on above: Expected: 04/20/2022, Expires: 2 Start: 04-02-2022 End: 06-02-2022 CBC W Auto Differential panel - Blood CBC + DIFF Lab Routine Prostate cancer (HCC) Expected: 04/02/2022, Expires: 06/02/[address] [facility] Work Phone: Comment on above: Expected: 04/02/2022, Expires: 2 Start: 08-21-2021 COVID-19 VACCINE (3 - Booster for Moderna series) COVID-19 VACCINE (3 - Booster for Moderna series) [facility] Start: 05-16-2021 COVID-19 VACCINE (3 - Booster for Moderna series) COVID-19 VACCINE (3 - Booster for Moderna series) [facility] Start: 05-16-2021 COVID-19 VACCINE (3 - Moderna series) COVID-19 VACCINE (3 - Moderna series) [facility] Start: 04-18-2021 COVID-19 Vaccine (3 - Moderna risk series) COVID-19 Vaccine (3 - Moderna risk series) [facility] Start: 2019 RSV Vaccine (1 - 1-dose 60+ series) RSV Vaccine (1 - 1-dose 60+ series) [facility] Start: 2019 RSV Vaccine (1 - Risk 60-74 years 1-dose series) RSV Vaccine (1 - Risk 60-74 years 1-dose series) [facility] Start: 2014 PROSTATE CANCER SCREENING DISCUSSION PROSTATE CANCER SCREENING DISCUSSION [facility] Start: 2009 Screening for malignant neoplasm of lung Lung Cancer Screening [facility] Start: 2009 SHINGRIX VACCINE (1 of 2) SHINGRIX VACCINE (1 of 2) [facility] Start: 2004 COLOGUARD (FIT-DNA) COLOGUARD (FIT-DNA) [facility] Start: 2004 Colonoscopy COLONOSCOPY [facility] Start: 2004 COLORECTAL CANCER SCREENING COLORECTAL CANCER SCREENING [facility] Start: [address] COLONOGRAPHY [facility] Start: 2004 DIABETES SCREEN DIABETES SCREEN [facility] Start: 2004 FECAL OCCULT BLOOD FECAL OCCULT BLOOD [facility] Start: 2004 Screening for malignant neoplasm of colon [facility] Start: 2004 SIGMOIDOSCOPY SIGMOIDOSCOPY [facility] Start: 1994 LIPID SCREEN LIPID SCREEN [facility] Start: 1978 Administration of varicella zoster vaccine Zoster (Shingles) Vaccine (1 of 2) [facility] Start: 1978 DTaP,Tdap and Td Vaccines (1 - Tdap) DTaP,Tdap and Td Vaccines (1 - Tdap) [facility] Start: 1978 SHINGRIX VACCINE (1 of 2) SHINGRIX VACCINE (1 of 2) [facility] Start: 1978 Urine microalbumin profile [facility] Start: 1977 Adult BMI Follow Up Plan Adult BMI Follow Up Plan [facility] Start: 1977 Anxiety Screening Anxiety Screening [facility] Start: 1977 Depression Screening Depression Screening [facility] Start: 1977 HEPATITIS C SCREENING HEPATITIS C SCREENING [facility] Start: 1977 Hepatitis C screening Hepatitis C Screening [facility] Start: 1977 HIV SCREENING HIV SCREENING [facility] Start: 1977 HIV screening HIV Screening [facility] Start: 1971 Adult depression screening assessment DEPRESSION SCREENING [facility] Start: 1965 PNEUMOCOCCAL (1 - PCV) PNEUMOCOCCAL (1 - PCV) [facility] Start: 1965 Pneumococcal vaccination Pneumococcal Vaccine (1 of 2 - PCV) [facility] Start: 1965 Pneumococcal Vaccine: 65+ (1 of 2 - PCV) Pneumococcal Vaccine: 65+ (1 of 2 - PCV) [facility] Start: 1959 Abdominal aortic aneurysm screening Abdominal Aortic Aneurysm Screening [facility] Start: 1959 Medicare Annual Wellness Visit Medicare Annual Wellness Visit [facility] Start: 1959 Screening for malignant neoplasm of colon [facility] End: 08-23-2025 Colonoscopy Colonoscopy GI Routine Diarrhea, unspecified type 1 Occurrences starting 08/23/2024 until 08/23/2025 [facility] Work Phone: Comment on above: 1 Occurrences starting 08/23/2024 until 08/23/2025 Endomysial antibody IgA level [facility] Gliadin peptide IgA Ab [Units/volume] in Serum [facility] Gliadin peptide IgG Ab [Units/volume] in Serum [facility] IgA [Mass/volume] in Serum or Plasma [facility] End: 09-14-2025 [facility] Routine S/P CABG x 2 1 Occurrences starting 03/15/2025 until 09/14/2025 [facility] Work Phone: Comment on above: 1 Occurrences starting 03/15/2025 until 09/14/2025 Tissue transglutamin ase IgA Ab [Units/volume] in Serum [facility] Tissue transglutamin ase IgG Ab [Units/volume] [facility] Immunizations Immunization Date Immunization Notes Care Provider Fa cility 10-04-2024 influenza, high dose seasonal, preservative-free [facility] 10-04-2024 Pneumococcal Conjuga te 20-valent [facility] 10-04-2024 RSV, bivalent, prote in subunit RSVpreF, diluent reconstituted, 0.5 mL, PF [facility] 10-04-2024 influenza virus vaccine, unspecified formulation [facility] 09-29-2021 SARS-CoV-2 (COVID-19 ) Ad26 vaccine, recombinant Maricruz Lue [facility] 03-21-2021 SARS-CoV-2 (COVID-19 ) mRNA-1273 vaccine Leila WhoGotStuff [facility] Comment on above: Result Comment: 2022: 59 02-27-2021 SARS-CoV-2 (COVID-19 ) Ad26 vaccine, recombinant Maricruz Lue [facility] 02-21-2021 SARS-CoV-2 (COVID-19 ) mRNA-1273 vaccine Leila WhoGotStuff [facility] Comment on above: Result Comment: 2022: 59 01-27-2021 SARS-CoV-2 (COVID-19 ) Ad26 vaccine, recombinant Maricruz Johnson [facility] 10-02-2019 influenza virus vaccine, unspecified formulation Leila LAMBERT [facility] 10-02-2019 influenza, injectabl e, quadrivalent, preservative free [facility] 09-26-2018 influenza virus vaccine, unspecified formulation Leila LAMBERT [facility] 09-26-2018 influenza, injectabl e, quadrivalent, preservative free [facility] 09-17-2017 influenza virus vaccine, unspecified formulation Leilacristian LAMBERT [facility] Payers Date Payer Category Payer Self-pay [id number] 2022 Medicaid [id number] 2021 Medicare AETNA MEDICARE A ETNA MEDICARE ASSURE HMO D SNP [id number] 2021-Present [phone] [address] [place] [address] Medicare [id number] 2021 Medicare [id number]. [id number] 2021 Medicare (Managed Care) [employer] ME N[place]ARE [id number] 2021 Medicare HMO AETNA MEDICARE [id number] 2016 Medicaid [id number]. [id number]. [id number] 1959 Medicaid [id number] 1959 Private Health Insurance [id number] 1959 Unknown [id number] 2.16840.1.601014.3.579.2. 356 1959 Unknown [id number] 2.16.840.1.900288.3.579.2. 593 1959 Unknown [id number] 2.16.840.1.562575.3.579.2. 593 1959 Unknown [id number] 2.16.840.1.351380.3.579.2. 593 1959 Unknown [id number] 2.16.840.1.121153.3.579.2. 1259 1959 Unknown [id number] 2.16.840.1.263605.3.579.2. 1259 1959 Unknown [id number] 2.16.840.1.310179.3.579.2. 1258 1959 Unknown [id number] 2.16.840.1.134173.3.579.2. 1258 1959 Unknown [id number] 2.16.840.1.252166.3.579.2. 1258 1959 Unknown [id number] 2.16.840.1.860143.3.579.2. 125 1959 Unknown [id number] 2.16.840.1.003305.3.579.2. 1258 1959 Unknown [id number] 2.16.840.1.498454.3.579.2. 1959 Unknown [id number] 2.16.840.1.673124.3.579.2. 1959 Unknown [id number] 2.16.840.1.790766.3.579.2. 1959 Unknown [id number] 2.16.840.1.546339.3.579.2. 1959 Unknown [id number] 2.16.840.1.854392.3.579.2. 1959 Unknown [id number] 2.16.840.1.852164.3.579.2. 1959 Unknown [id number] 2.16.840.1.238843.3.579.2. 72 1959 Unknown [id number] 2.16.840.1.398751.3.579.2. 1959 Unknown [id number] 2.16.840.1.825713.3.579.2. 1286 1959 Unknown [id number] 2.16.840.1.069927.3.579.2. 128 1959 Unknown [id number] 2.16.840.1.754601.3.579.2. 1285 1959 Unknown [id number] 2.840.1.930930.3.579.2. 1285 1959 Unknown [id number] 2.16840.1.045821.3.579.2. 1285 1959 Unknown [id number] 2.840.1.877628.3.579.2. 1285 1959 Unknown [id number] 2.840.1.556076.3.579.2. 1285 1959 Unknown [id number] 2.840.1.698831.3.579.2. 1285 1959 Unknown [id number] 2.0.1.015158.3.579.2. 1285 1959 Unknown [id number] 2.840.1.282219.3.579.2. 1285 1959 Unknown [id number] 2.840.1.858105.3.579.2. 1285 1959 Unknown [id number] 2.840.1.232580.3.579.2. 1285 1959 Unknown [id number] 2.0.1.608732.3.579.2. 1285 1959 Unknown [id number] 2.840.1.941108.3.579.2. 1285 1959 Unknown [id number] 2.16840.1.580152.3.579.2. 1285 1959 Unknown [id number] 2.16840.1.665410.3.579.2. 1285 1959 Unknown [id number] 2.840.1.094518.3.579.2. 1285 1959 Unknown [id number] 2.16840.1.182904.3.579.2. 1286 1959 Unknown [id number] 2.840.1.272034.3.579.2. 1285 1959 Unknown [id number] 2.16.840.1.510743.3.579.2. 1285 1959 Unknown [id number] 2.840.1.032539.3.579.2. 72 1959 Unknown [id number] 2.16.840.1.748385.3.579.2. 72 1959 Unknown [id number] 2.840.1.426794.3.579.2. 72 1959 Unknown [id number] 2.840.1.326775.3.579.2. 1959 Unknown [id number] 2.840.1.851804.3.579.2. 72 1959 Unknown [id number] 2.840.1.919351.3.579.2. 72 1959 Unknown [id number] 2.840.1.337285.3.579.2. 72 1959 Unknown [id number] 2.840.1.163373.3.579.2. 72 1959 Unknown [id number] 2.840.1.459861.3.579.2. 72 1959 Unknown [id number] 2.16840.1.573639.3.579.2. 72 1959 Unknown [id number] 2.16840.1.162146.3.579.2. 727 Medicare [id number] 2.16.840.1.935489.19 Unknown [id number] 2.16840.1.513021.3.579.2. 531 Unknown [id number] 2.16840.1.360131.3.579.2. 531 Social History Date Type Detail Facility Start: 04-29-1977 End: 01-04-2024 Tobacco smoking status NHIS Smokes tobacco daily [facility] Start: 11-29-1974 History of tobacco use Cigarette Smo ker [facility] Start: 03-11-2022 End: 02-24-2025 Cigarettes smoked current (pack per day) - Reported 0.5 [facility] Start: 03-11-2022 End: 02-24-2025 Tobacco use and exposure Former smokeless tobacco user [facility] Start: 03-11-2022 End: 01-04-2024 Alcohol intake Current drinker of alcohol (finding) [facility] Start: 1960 Sex Assigned At Not on file [facility] Start: 03-01-2022 End: 07-07-2022 Exposure to SARS-CoV-2 (event) Not sure [facility] Start: 12-22-2021 Tobacco smoking status Heavy t obacco smoker (finding) [facility] Start: 06-18-2022 End: 02-24-2025 Sex Assigned At Male [facility] Start: 05-17-2023 End: 08-13-2025 Tobacco smoking status Ex-smoker (finding) [facility] Tobacco smoking status Never [facility] Start: 1960 Sex Assigned At Male [facility] Start: 04-30-2023 Tobacco smoking stat us NHIS Never smoked tobacco [facility] Start: 04-30-2023 Tobacco use and exposure Smoke less tobacco non-user [facility] Start: 06-15-2024 End: 07-18-2024 Alcoholic beverage intake Lifetime non-drinker (finding) [facility] Start: 07-04-2015 End: 12-13-2024 Sex Male (finding) [facility] Start: 11-29-1974 History of tobacco use [email or web address] Start: 09-05-2024 End: 07-19-2025 Alcoholic beverage intake Ex-drinker (finding) [facility] Has the [employer], [employer], or [employer] threatened to shut off services in your home in past 12Mo No [facility] History of tobacco use Passive smoker [facility] End: 11-29-2020 History of tobacco use Chews Tobacco [facility] Are you now , , , , never or living with a partner? Never [facility] How often to you hav e a drink containing alcohol? Never [facility] How hard is it for y ou to pay for the very basics like food, housing, medical care, and heating Not very hard [facility] Do you feel stress - tense, restless, nervous, or anxious, or unable to sleep at night because your mind is troubled all the time - these days [OSQ] Not at all [facility] Start: 02-24-2025 Tobacco Comment Quit 4 years ago. [facility] Sexual Orientation [facility] Goals Date Patient Goal Desired Activity /State [...] towards goal: Patient denies home going needs. Personal health goal Comment on above: Formatting of this n ote might be different from the original. Evaluation of progress towards goal: patient progressing toward safe discharge home. Functional Status Date Assessment Result Facility 02-06-2025 Functional Status No [facility] 01-15-2025 Functional Status N/A [facility] 10-16-2024 Functional Status N/A [facility] 03-17-2024 Functional Status N/A [facility] 09-13-2023 Functional Status N/A [facility] 07-12-2023 Functional Status N/A [facility] 05-17-2023 Functional Status [facility] 03-08-2023 Functional Status N/A [facility] 09-04-2022 Functional Status N/A [facility] 07-15-2022 Functional Status N/A [facility] Molly Clinical Notes 03-11-2022 to 08-13-2025 Immanuel Cope MD - 07/19/2025 10:45 AM EDTTelephone Encounter - Mallika Anderson CMA - 07/18/2025 2:45 PM EDTTelephone Encounter - Mallika Anderson CMA - 07/18/2025 2:45 PM EDTPatient Instructions Note Date & Type Note Facility 08-13-2025 Hospital Discharge instructions Patient Education 08/13/2025 08:43:55 Prostate Cancer Prostate Cancer The prostate is [...] the likelihood that the cancer will spread. [place] 6 or lower: This indicates that the [...] stress of having cancer. General instructions Take [id number] and prescription medicines only as told by your health care provider. If you have to go to the hospital, notify your cancer specialist (oncologist). Keep all follow-up visits. This is important. Where to find more information [place] [employer]: www.cancer.org [place] [employer] Oncology: www.cancer.net National Cancer [place]: www.cancer.gov Contact a health care provider if: [...] provider. Document Revised: 02/11/2022 Document Reviewed: 02/11/2022 [email or web address] Patient Education 2023 [employer]. Follow Up Care 08/02/2025 14:09:11 With:PETRA OVIEDO, Leila Simpson, URL Address: [address] [place] [id number] When: Unknown Comments:f/u already scheduled 09/17/25 w/ Dony SOTOMAYOR [facility] 08-13-2025 Note Patient Education Oncology Prostate Cancer The [...] likelihood that the cancer will spread. ??? [place] 6 or lower: This indicates that the cancer cells look similar to normal prostate cells (well differentiated). ??? [place] 7: This indicates that the cancer cells [...] seeds, wires, o (more content not included)... [facility] 07-19-2025 History of Present illness Narrative Meredith Villatoro Date of visit: 07/19/2025 Date of : 1960 Age: 65 y.o. Patient Active Problem List Diagnosis BMI 40.0-44.9, adult ([facility]) Vertigo Acquired hammer toe of left foot Arthritis Benign prostatic hyperplasia with urinary obstruction Chronic pain Current every day smoker Difficulty walking Epididymitis Disorder of male genital organs Hypercholesterolemia Primary hypertension PAD (peripheral artery disease) Adenocarcinoma of prostate ([facility]) Dizziness Ischemic colitis BPH (benign prostatic hyperplasia) History of smoking Chest pain, unspecified type Chest pain Allergies Allergen Reactions Codeine-Guaifenesin Other reaction(s): COUGH / SNEEZING Current Outpatient Medications Medication Sig Dispense Refill amiodarone (PACERONE) 200 mg tablet Take 1 tablet (200 mg total) by mouth in the morning. 90 tablet 1 aspirin 81 mg Take 1 tablet (81 mg total) by mouth in the morning. 30 tablet 11 atorvastatin (LIPITOR) 40 mg tablet Take 1 tablet (40 mg total) by mouth nightly. 90 tablet 3 bicalutamide (CASODEX) 50 mg chemo tablet Take 1 tablet by mouth nightly famotidine (PEPCID) 20 mg tablet Take 1 tablet (20 mg total) by mouth in the morning. metoprolol tartrate (LOPRESSOR) 25 mg tablet Take 1 tablet (25 mg total) by mouth in the morning and 1 tablet (25 mg total) before bedtime. MYRBETRIQ 50 mg tablet extended release 24 hr Take 1 tablet (50 mg total) by mouth in the morning. tamsulosin (FLOMAX) 0.4 mg capsule Take 1 capsule (0.4 mg total) by mouth in the morning and 1 capsule (0.4 mg total) before bedtime. No current facility-administered medications for this visit. Chief Complaint Patient presents with Follow-up EST PT 3 MS F/U L/S MBO PMH ER CHEST PAIN History of Present Illness Patient with risk sent CABG x2 vessel MAYBERRY to LAD saphenous vein graft to OM1 March 02, 2025 develop brief postop atrial fibrillation was discharged on amiodarone 20 mg no anticoagulation, has history of hypertension, high cholesterol, smoking history but quit in 2020 at history of prostate cancer in remission, history of PAD and obesity Patient accompanied by the sister today's visit said he is doing well has sternal discomfort from the surgery no shortness of breath no palpitation they have portion about stopping the amiodarone that was suggested to them with the agree to discontinue for now since he is not having any arrhythmic problem Past Medical History: Diagnosis Date GERD (gastroesophageal reflux disease) H/O degenerative disc disease Hyperlipidemia Hypertension Prostate cancer ([facility]) Tubular adenoma Vertigo Visual impairment glasses No data recorded No data recorded No data recorded Past Surgical History: Procedure Laterality Date ARTHROSCOPY SHOULDER debridment of type 1 slap lesion , and subacromial decompression Left 05/20/2017 Performed by Jr Zainab Barber DO at [facility] Cardiac Invasive N/A 02/28/2025 Performed by Jimmie Espinoza MD at [facility] CARDIAC CATH LABS CHOLECYSTECTOMY COLON SURGERY 03/14/2013 Low Anterior Colon Resection- Dr. De Leon & Dr. Chau COLONOSCOPY N/A 08/05/2017 Performed by Edgar De Leon MD at [facility] COLONOSCOPY DIAGNOSTIC / SCREENING N/A 09/11/2024 Performed by Tracy Chau DO at [facility] Coronary angiogram and left ventricular gram/pressure N/A 02/28/2025 Performed by Jimmei Espinoza MD at [facility] CARDIAC CATH LABS CORONARY ARTERY BYPASS GRAFT X2 , MAYBERRY, SVG X 1 ,[facility] LEFT UPPER LEG LAI, N/A 03/02/2025 Performed by Claribel Pace MD at [facility] FOOT SURGERY Left 11/2024 PROSTATE SURGERY hx prostate cancer with radiation ? 2021 Family History Problem Relation Age of Onset No Known Problems Mother Tall stature Father Kidney disease Sister Colon cancer Neg Hx Social History Socioeconomic History Marital status: Single Spouse name: Not on file Number of children: Not on file Years of education: Not on file Highest education level: Not on file Occupational History Not on file Tobacco Use Smoking status: Former Current packs/day: 1.50 Average packs/day: 1.5 packs/day for 50.6 years (76.0 ttl pk-yrs) Types: Cigarettes Start date: 1974 Passive exposure: Past Smokeless tobacco: Former Types: Chew Quit date: 2020 Tobacco comments: Quit 4 years ago. Vaping Use Vaping status: Never Used Substance and Sexual Activity Alcohol use: Not Currently Drug use: No Sexual activity: Defer Other Topics Concern Caffeine Use Yes Social History Narrative Not on file Social Drivers of Health Financial Resource Strain: Low Risk (02/24/2025) Overall Financial Resource Strain (CARDIA) Difficulty of Paying Living Expenses: Not very hard Food Insecurity: No Food Insecurity (07/19/2025) Hunger Screening Food Insecurity - Worry: Never True Food Insecurity - Inability: Never True Transportation Needs: No Transportation Needs (02/28/2025) PRAPARE - Transportation Lack of Transportation (Medical): No Lack of Transportation (Non-Medical): No Physical Activity: Inactive (02/24/2025) Exercise Vital Sign Days of Exercise per Week: 0 days Minutes of Exercise per Session: 0 min Stress: No Stress Concern Present (02/24/2025) Citizen Of [place] of Occupational Health - Occupational Stress Questionnaire Feeling of Stress : Not at all Social Connections: Socially Isolated (02/24/2025) Social Connection and Isolation Panel [NHANES] Frequency of Communication with Friends and Family: Three times a week Frequency of Social Gatherings with Friends and Family: Three times a week Attends [employer] Services: Never Active Member of Clubs or Organizations: No Attends Club or Organization Meetings: Never Marital Status: Never Interpersonal Safety: Not At Risk (02/28/2025) Humiliation, Afraid, Rape, and Kick questionnaire Fear of Current or Ex-Partner: No Emotionally Abused: No Physically Abused: No Sexually Abused: No Housing Instability: Low Risk (02/28/2025) Housing Instability Housing Instability: No Review of Systems Review of Systems Constitutional: Negative. HENT: Negative. Eyes: Negative. Cardiovascular: Positive for chest pain. Respiratory: Positive for cough. Endocrine: Negative. Hematologic/Lymphatic: Negative. Skin: Negative. Musculoskeletal: Positive for back pain. Gastrointestinal: Positive for change in bowel habit. Genitourinary: Negative. Neurological: Positive for dizziness, light-headedness and loss of balance. Psychiatric/Behavioral: Negative. Allergic/Immunologic: Negative. Vascular: Negative. CARDIOVASCULAR: Please review HPI. Physical Examination General appearance: Alert, oriented and cooperative. In no acute distress. Skin: Warm and dry to touch. Head: Normocephalic, without obvious abnormality, atraumatic. Ears, Nose, Mouth, Throat: Throat clear without erythema or exudate. Dentition intact. Eyes: Conjunctivae unremarkable, EOM intact. Neck: No JVD, No carotid bruit. Neck supple, trachea midline. Respiratory: Clear to auscultation bilaterally, no use of accessory muscles. Cardiovascular: RRR with normal S1 and S2 with no murmurs. Gastrointestinal: Soft, non-tender. Bowel sounds normal. Musculoskeletal: No peripheral edema. Neurologic: Oriented to time, person and place, affect appropriate. No focal/major motor defects noted. Psychiatric: Appropriate mood, memory and judgement. VITAL SIGNS: BP 108/76 Pulse 54 Ht 160 cm (5' 3 ) Wt 107 kg (236 lb) SpO2 97% BMI 41.81 kg/m Orders Placed or Reconciled This Encounter Medications metoprolol tartrate (LOPRESSOR) 25 mg tablet Sig: Take 1 tablet (25 mg total) by mouth in the morning and 1 tablet (25 mg total) before bedtime. There are no discontinued medications. IMPRESSIONS/PLAN There are no diagnoses linked to this encounter. 1 status post CABG x2 vessel MAYBERRY to LAD, saphenous vein graft to OM March 02, 2025 patient recovering well has some incisional pain/discomfort 2 brief postop atrial fibrillation and went back to sinus rhythm Could discontinue amiodarone 3 hypertension well controlled discussed with them okay to discontinue lisinopril continue Toprol 4 high cholesterol continue current Lipitor 5 obesity chronic due to excessive caloric intake Plan Okay to discontinue amiodarone Follow up in 6 months TODAYS ORDERS No orders of the defined types were placed in this encounter. FOLLOW UP Return in about 6 months (around 01/19/2026). PCP: JASBIR Meza Referring Physician: No referring provider defined for this encounter. documented in this encounter [facility] 07-18-2025 Miscellaneous Notes Called patient to remind them to bring their most current copy of their medication list with them to their appt. Patient verbalizes understanding. documented in this encounter [facility] 07-18-2025 Telephone encounter Note Called patient to remind them to bring their most current copy of their medication list with them to their appt. Patient verbalizes understanding. [facility] 06-20-2025 Miscellaneous Notes Last OV 03/15/25 Last CMP 06/14/25 Last EKG 06/14/25 Last CXR 06/14/25.slm documented in this encounter [facility] 06-20-2025 Telephone encounter Note Last OV 03/15/25 Last CMP 06/14/25 Last EKG 06/14/25 Last CXR 06/14/25.slm [employer] 04-11-2025 History of Present illness Narrative Radiology Service Progress Note DATE OF SERVICE: April 11, 2025 TIME: 1:19 PM PATIENT IDENTITY VERIFICATION COMPLETED USING TWO (2) STANDARD IDENTIFIERS: Name and Date of confirmed by patient verbally. FALL SCREENING: Has the patient had 2 falls in the last year or 1 fall with injury or currently using an Ambulatory Assistive Device (Walker, Cane, Wheelchair, Crutches, etc.)? No PATIENT GENDER DATA: Assigned male at EXAM: CT -CONTRAST INDUCED NEPHROPATHY RISK FACTORS: Not applicable CREATININE: No results found for: CREAT , EGFROTH , EGFRAA P.O.C.T. RESULTS: N/A April 11, 2025 TREATMENT: N/A IV SITE: Ambulatory: A peripheral IV was started in the Right antecubital site with a Angio cath: 22 gauge. IV SITE APPEARANCE: Clean,Dry and Intact SIGNATURE: Ethel Cowan RN PATIENT NAME: Meredith Villatoro DATE: April 11, 2025 TIME: 1:19 PM RADIOLOGY SERVICE PROGRESS NOTE SERVICE DATE: 04/11/2025 SERVICE TIME: 1:23 PM PATIENT IDENTITY VERIFICATION COMPLETED USING TWO (2) STANDARD IDENTIFIERS: Name and Date of confirmed by patient verbally POST EXAM PIV STATUS: Discontinued PROCEDURE TYPE: NM INJECT: PET/CT BODY SCAN. 9.6 mCi [id number]. Administered By: . No other medications given.. ADMINISTRATION TIME: 1318 PATIENT DISCHARGED TO: Ambulatory patient, left [place] department area. Is this a therapy: No A Diagnostic radioactive procedure has taken place, with no further precautions necessary other than routine body substance precautions. More information regarding radiation safety can be found using this link: [email or web address]%20Nuclear %20Medicine%20Procedures.[email or web address] SIGNATURE: RT Amanda(R) PATIENT NAME: Meredith Villatoro DATE: April 11, 2025 TIME: 1:23 PM PAGER/CONTACT #: documented in this encounter [facility] 04-11-2025 Note HNO ID: [id number] Author: ETHEL OCWAN RN Service: ? Author Type: Registered Nurse Type: Progress Notes Filed: 04/11/2025 13:20 Note Text: Radiology Service Progress Note DATE OF SERVICE: April 11, 2025 TIME: 1:19 PM PATIENT IDENTITY VERIFICATION COMPLETED USING TWO (2) STANDARD IDENTIFIERS: Name and Date of confirmed by patient verbally. FALL SCREENING: Has the patient had 2 falls in the last year or 1 fall with injury or currently using an Ambulatory Assistive Device (Walker, Cane, Wheelchair, Crutches, etc.)? No PATIENT GENDER DATA: Assigned male at EXAM: CT -CONTRAST INDUCED NEPHROPATHY RISK FACTORS: Not applicable CREATININE: No results found for: CREAT , EGFROTH , EGFRAA P.O.C.T. RESULTS: N/A April 11, 2025 TREATMENT: N/A IV SITE: Ambulatory: A peripheral IV was started in the Right antecubital site with a Angio cath: 22 gauge. IV SITE APPEARANCE: Clean,Dry and Intact SIGNATURE: Ethel Cowan RN PATIENT NAME: Meredith Villatoro DATE: April 11, 2025 TIME: 1:[address] [facility] 04-11-2025 Note HNO ID: [id number] Author: YANIRA WINSTON RT(Calvin) Service: ? Author Type: Technologist Type: Progress Notes Filed: 04/11/2025 13:23 Note Text: RADIOLOGY SERVICE PROGRESS NOTE SERVICE DATE: 04/11/2025 SERVICE TIME: 1:23 PM PATIENT IDENTITY VERIFICATION COMPLETED USING TWO (2) STANDARD IDENTIFIERS: Name and Date of confirmed by patient verbally POST EXAM PIV STATUS: Discontinued PROCEDURE TYPE: NM INJECT: PET/CT BODY SCAN. 9.6 mCi [id number]. Administered By: . No other medications given.. ADMINISTRATION TIME: 1318 PATIENT DISCHARGED TO: Ambulatory patient, left [place] department area. Is this a therapy: No A Diagnostic radioactive procedure has taken place, with no further precautions necessary other than routine body substance precautions. More information regarding radiation safety can be found using this link: [email or web address] [email or web address] 20Diagnostic%20Nuclear%20Medicine% 20Procedures.pdf SIGNATURE: Yanira Winston RT(R) PATIENT NAME: Meredith Villatoro DATE: April 11, 2025 TIME: 1:23 PM PAGER/CONTACT #: [facility] 04-10-2025 Miscellaneous Notes OV 03/15/25 03/07/25 CBC documented in this encounter [facility] 04-10-2025 Telephone encounter Note OV 03/15/25 03/07/25 CBC [facility] 04-10-2025 Miscellaneous Notes P/c from pt to report concerning chest discomfort/chest pain. Onset: 2 weeks ago Radiation:does not radiate. Pt denies any SOB, sweating, arm pain or lightheadedness or dizziness. Severity 05/08 Location: left and Mid chest Triggers: Pt states CP has been ongoing at rest and with activity Relieved by: Pt states has been ongoing and feels like a pulling sensation or Yanking . Blood Pressure/Pulse: Pt states home health comes on and BP/HRs have been WNL Associated symptoms: Headaches Previous cath/stents? CABG x2 03/02/25 Patient Advised: to report to ER; pt states he will go to [facility] ER now. Pt l/s MBO 03/15/25. Pt went to ER. documented in this encounter [facility] [employer] [facility] 04-10-2025 Telephone encounter Note P/c from pt to report concerning chest discomfort/chest pain. Onset: 2 weeks ago Radiation:does not radiate. Pt denies any SOB, sweating, arm pain or lightheadedness or dizziness. Severity 05/08 Location: left and Mid chest Triggers: Pt states CP has been ongoing at rest and with activity Relieved by: Pt states has been ongoing and feels like a pulling sensation or Yanking . Blood Pressure/Pulse: Pt states home health comes on and BP/HRs have been WNL Associated symptoms: Headaches Previous cath/stents? CABG x2 03/02/25 Patient Advised: to report to ER; pt states he will go to [facility] ER now. Pt l/s MBO 03/15/25. [facility] [employer] [facility] 04-10-2025 Telephone encounter Note 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: Molly Birmingham the patient need anesthesia: NO Primary Insurance: Aetna 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 grade group 5 4+5= 9 Labs: 01-10-25 PSA 0.5 10-03-24 PSA 0.6 03-17-24 PSA 0.2 Clinical Notes Reviewed: 03-26-25 [facility] Date of last: na Additional Information/Imaging: N/A Is this the first PSMA PET:Yes (Please schedule as requested by patient or office) Positive Scan Schedule as place of last (DOS) or Region Negative Scan Schedule at ANY PSMA site requested Isotope used: Region F-18 flotufolastat,18F [facility] 17996/LOCAMETZ (Gallium GA-68 Gozetotide) (6 mCi) A9800 - MC [place] (Flotufolastat F18) (8mCi), A9608 - Region Auth#: [id number] Date Range: 03-01-25 to 08-28-25 for 1 dos NPI: Leila Lambert Member ID: [employer] Site/Contact: Case/Ref#: Notes: auths canned into epic Route to or Requested Scheduling Pool: P PET BARIATRIC COORDINATOR MC, P OCS CLERICAL POOL(Oriska), P MOLLY SULFUR BURNER [facility] 04-03-2025 Miscellaneous Notes PSMA 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: Molly Birmingham the patient need anesthesia: NO Primary Insurance: Aetna 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 grade group 5 4+5= 9 Labs: 01-10-25 PSA 0.5 10-03-24 PSA 0.6 03-17-24 PSA 0.2 Clinical Notes Reviewed: 03-26-25 [facility] Date of last: na Additional Information/Imaging: N/A Is this the first PSMA PET:Yes (Please schedule as requested by patient or office) Positive Scan Schedule as place of last (DOS) MC or Region Negative Scan Schedule at ANY PSMA site requested Isotope used: Region F-18 flotufolastat,18F flotufolastat Posluma GA68 PSMA PET 23436/LOCAMETZ (Gallium GA-68 Gozetotide) (6 mCi) A9800 - MC [place] (Flotufolastat F18) (8mCi), A9608 - Region Auth#: [id number] Date Range: 03-01-25 to 08-28-25 for 1 dos NPI: Leila Lambert Member ID: [employer]na Site/Contact: Case/Ref#: Notes: auths canned into epic Route to or Requested Scheduling Pool: P PET BARIATRIC COORDINATOR MC, P OCS CLERICAL POOL(Oriska), P MOLLY SULFUR BURNER This form is used for MAIN CAMPUS APPOINTMENTS ONLY. Is this request for a [place] PET scan appointment? Yes: Applications Sales Representative: Akiko White Who do we call to schedule this appointment? Other Contact: PSMA PET May Wildemarshall [phone] Leila Lambert Area Code [phone] + Phone/Pager: [phone] PET Orders (A delay in scheduling will result if the orders are not present at time of review): External. Has the External Clinical Order been scanned into Epic? Yes EXTERNAL OFFICE AUTH IS SCANNED WITH ORDER FOR PSMA ADDITIONAL ACTION MAY BE REQUIRED IF PATIENTS OON INSURANCE OR SELF PAY COVERAGE HAS NOT BEEN CLEARED FOR REQUESTED APPOINTMENT. Scheduling: CIRA: As soon as insurance will allow What account will this PET appointment be linked to? P/F Type of PET: PSMA Are there additional diagnostic CT scans required to be done at time of PET scan? No Is the request for a PET MR ? No What account will diagnostic testing appointment be linked to? P/F Will the patient need anesthesia? NO Send requests to [facility] documented in this encounter [facility] 04-02-2025 Telephone encounter Note This form is used for MAIN CAMPUS APPOINTMENTS ONLY. Is this request for a [place] PET scan appointment? Yes: Applications Sales Representative: Akiko White Who do we call to schedule this appointment? Other Contact: PSMA PET May Wildemarshall [phone] Leila Lambert Area Code [phone] + Phone/Pager: [phone] PET Orders (A delay in scheduling will result if the orders are not present at time of review): External. Has the External Clinical Order been scanned into Epic? Yes EXTERNAL OFFICE AUTH IS SCANNED WITH ORDER FOR PSMA ADDITIONAL ACTION MAY BE REQUIRED IF PATIENTS OON INSURANCE OR SELF PAY COVERAGE HAS NOT BEEN CLEARED FOR REQUESTED APPOINTMENT. Scheduling: CIRA: As soon as insurance will allow What account will this PET appointment be linked to? P/F Type of PET: PSMA Are there additional diagnostic CT scans required to be done at time of PET scan? No Is the request for a PET MR ? No What account will diagnostic testing appointment be linked to? P/F Will the patient need anesthesia? NO Send requests to [facility] 03-26-2025 Note Patient Education Oncology Hormone Suppression Therapy for Prostate Cancer Hormone suppression therapy is a treatment for prostate cancer that can help slow the growth of cancer cells in the prostate gland. It is also called androgen deprivation therapy (ADT) or androgen suppression therapy. Hormone suppression therapy targets male sex hormones (androgens) in the body that help cancer cells grow. Hormone suppression therapy alone will not cure prostate cancer, but it can slow the growth of cancer cells and may shrink tumors over time. Your health care provider can help you find the best treatment that fits your lifestyle. Hormone suppression therapy may be used in the following cases: ??? When prostate cancer has spread too far to other places in the body and cannot be cured by surgery or radiation. ??? When a person has health problems that prevent the use of surgery or radiation. ??? Before radiation to help shrink the size of the cancer and make the radiation treatment more effective. ??? If the prostate cancer remains or comes back following treatment with surgery or radiation. What are the types of hormone suppression therapy? Orchiectomy Orchiectomy, also called surgical castration, is a surgery to remove one or both testicles. The testicles make the two main androgens?testosterone and dihydrotestosterone (DHT). This surgery reduces the levels of testosterone in the blood, leading to decreased androgen production. Medicine therapy Medicine therapy, also called medical or chemical castration, involves taking medicines to keep your body from making or using androgens. Medicines can do this in one of three ways: 1. Reducing androgen production by the testicles. ??? Luteinizing hormone-releasing hormone (LHRH) agonists. These medicines are injected or implanted under your skin to lower the amount of androgens that your testicles make. Depending on the medicine, they can be given monthly or up to every 3 to 6 months. If you take these medicines, you may also be prescribed other medicines to help with side effects. ??? LHRH antagonists. These medicines also work to lower the amount of androgens made in the testicles, but they work faster than LHRH agonist medicines and have less severe side effects. They are given as a monthly injection under the skin, and they are used when prostate cancer is in an advanced stage. ??? Estrogens. These medicines are female hormones that help to reduce androgen production by the testicles. Estrogens are not used as commonly as other types of hormone suppression therapy due to their side effects. However, they may be used if other treatments do not work. 2. Blocking androgen attachment throughout the body. ??? Anti-androgen medicines, also called androgen receptor antagonists, block areas on the body where androgens attach. These are pills that are usually used in combination with other types of hormone suppression therapy, like orchiectomy and other medicines. 3. Blocking androgen production throughout the body. ??? Androgen synthesis inhibitor medicines. These medicines help to stop other areas of the body from making androgens. They are taken as pills. They may be used if the prostate cancer is advanced and has not gotten better with surgery or other medicines. A steroid medicine may be given with this type of medicine to help with side effects. What are the risks? Hormone suppression therapy may cause side effects, including: ??? Hot flashes. ??? Diarrhea and nausea. ??? Itching. ??? Sexual side effects, such as: ? Decrease or lack of sexual desire. ? Decrease in size of the penis or testicles. ? Inability to get an erection (erectile dysfunction, or impotence). ? Breast tenderness or increase in breast size. ??? Fatigue. ??? Weight gain. ??? Anemia. ??? Thinning of the bones (osteoporosis) and loss of muscle mass. ??? Depression, mood swings, and trouble with thinking or focusing. Hormone suppression therapy may also increase your risk of high blood pressure, increased cholesterol levels, stroke, heart attack, or diabetes. What are the benefits? One of the main benefits of hormone suppression therapy is having additional treatment options. You may have only one type of treatment, or two or more types at the same time. Treatments may be combined to: ??? Help with side effects. ??? Treat advanced cancer. Where to find more information ??? [place] [employer]: www.cancer.org ??? National Cancer [place]: www.cancer.gov Contact a health care provider if: ??? You have pain or side effects that do not get better with treatment. ??? You have trouble urinating. ??? You have new side effects that do not go away. Get help right away if: ??? You have severe chest pain. ??? You have trouble breathing. ??? You have an irregular heartbeat. ??? You have numbness or paralysis in the lower half of your body. ??? You are confused. ??? You (more content not included)... [facility] 03-22-2025 Miscellaneous Notes Last OV 03/15/25 Last BMP,CBC Mg 03/06/25 Lipid 02/25/25 Last CXR 03/05/25 Last EKG 03/05/25.slm Looks like amiodarone should only be for 3 months postop. Will not give refills. documented in this encounter [facility] 03-22-2025 Telephone encounter Note Last OV 03/15/25 Last BMP,CBC Mg 03/06/25 Lipid 02/25/25 Last CXR 03/05/25 Last EKG 03/05/25.slm [facility] 03-22-2025 Telephone encounter Note Looks like amiodarone should only be for 3 months postop. Will not give refills. [facility] 03-15-2025 History of Present illness Narrative Meredith Villatoro Date of visit: 03/15/2025 Date of : 1960 Age: 64 y.o. Patient Active Problem List Diagnosis BMI 40.0-44.9, adult ([facility]) Vertigo Acquired hammer toe of left foot Arthritis Benign prostatic hyperplasia with urinary obstruction Chronic pain Current every day smoker Difficulty walking Epididymitis Disorder of male genital organs Hypercholesterolemia Primary hypertension PAD (peripheral artery disease) Adenocarcinoma of prostate ([facility]) Dizziness Ischemic colitis BPH (benign prostatic hyperplasia) History of smoking Chest pain, unspecified type Chest pain Allergies Allergen Reactions Codeine-Guaifenesin Other reaction(s): COUGH / SNEEZING Current Outpatient Medications Medication Sig Dispense Refill famotidine (PEPCID) 20 mg tablet Take 1 tablet (20 mg total) by mouth in the morning for 30 days. 30 tablet 0 furosemide (LASIX) 20 mg tablet Take 1 tablet (20 mg total) by mouth daily for 14 days. 14 tablet 0 metoprolol tartrate (LOPRESSOR) 25 mg tablet Take 1 tablet (25 mg total) by mouth in the morning and 1 tablet (25 mg total) before bedtime. Do all this for 30 days. 60 tablet 0 MYRBETRIQ 50 mg tablet extended release 24 hr Take 1 tablet (50 mg total) by mouth in the morning. polyethylene glycol (GLYCOLAX) 17 gram packet Take 17 g by mouth in the morning for 14 days. 14 packet 0 sennosides-docusate sodium (SENOKOT-S) 8.6-50 mg Take 2 tablets by mouth in the morning and 2 tablets before bedtime. Do all this for 14 days. Indications: constipation. 56 tablet 0 tamsulosin (FLOMAX) 0.4 mg capsule Take 1 capsule (0.4 mg total) by mouth in the morning and 1 capsule (0.4 mg total) before bedtime. amiodarone (PACERONE) 200 mg tablet Take 1 tablet (200 mg total) by mouth in the morning. 60 tablet 0 aspirin 81 mg Take 1 tablet (81 mg total) by mouth in the morning for 30 days. 30 tablet 0 atorvastatin (LIPITOR) 40 mg tablet Take 1 tablet (40 mg total) by mouth nightly. 90 tablet 0 No current facility-administered medications for this visit. Chief Complaint Patient presents with Follow-up hosp f/u TTH- discharged 03/07- saw LLD in ED- labs 03/08- vas cardotid 03/01- nuc stress 01/27- sched w pt History of Present Illness 64-year-old male here in follow-up after hospital discharge. He was admitted for chest pain subsequently get a stress test that was abnormal. Underwent CABG x2 with MAYBERRY lad SVG OM1 with Dr. Pace on 03/02/2025 He did have what sounded like a short run of postoperative AFib was started on amiodarone but decision was made to not initiate anticoagulation since it did not recur. He was hypotensive and requiring midodrine for sometimes today his blood pressure is better he is in normal sinus rhythm he is on low-dose metoprolol and amiodarone. He he tells me I feel perfect enquiring about stopping Lasix due to frequent urination discomfort Past Medical History: Diagnosis Date GERD (gastroesophageal reflux disease) H/O degenerative disc disease Hyperlipidemia Hypertension Prostate cancer ([facility]) Tubular adenoma Vertigo Visual impairment glasses No data recorded No data recorded No data recorded Past Surgical History: Procedure Laterality Date ARTHROSCOPY SHOULDER debridment of type 1 slap lesion , and subacromial decompression Left 05/20/2017 Performed by Jr Zainab Barber DO at [facility] Cardiac Invasive N/A 02/28/2025 Performed by Jimmie Espinoza MD at [facility] CARDIAC CATH LABS CHOLECYSTECTOMY COLON SURGERY 03/14/2013 Low Anterior Colon Resection- Dr. De Leon & Dr. Chau COLONOSCOPY N/A 08/05/2017 Performed by Edgar De Leon MD at [facility] COLONOSCOPY DIAGNOSTIC / SCREENING N/A 09/11/2024 Performed by Tracy Chau DO at [facility] Coronary angiogram and left ventricular gram/pressure N/A 02/28/2025 Performed by Jimmie Espinoza MD at [facility] CARDIAC CATH LABS CORONARY ARTERY BYPASS GRAFT X2 , MAYBERRY, SVG X 1 ,EVH LEFT UPPER LEG LAI, N/A 03/02/2025 Performed by Claribel Pace MD at [facility] FOOT SURGERY Left 11/2024 PROSTATE SURGERY hx prostate cancer with radiation ? 2021 Family History Problem Relation Age of Onset No Known Problems Mother Tall stature Father Kidney disease Sister Colon cancer Neg Hx Social History Socioeconomic History Marital status: Single Spouse name: Not on file Number of children: Not on file Years of education: Not on file Highest education level: Not on file Occupational History Not on file Tobacco Use Smoking status: Former Current packs/day: 1.50 Average packs/day: 1.5 packs/day for 50.3 years (75.4 ttl pk-yrs) Types: Cigarettes Start date: 1974 Passive exposure: Past Smokeless tobacco: Former Types: Chew Quit date: 2020 Tobacco comments: Quit 4 years ago. Vaping Use Vaping status: Never Used Substance and Sexual Activity Alcohol use: Not Currently Drug use: No Sexual activity: Defer Other Topics Concern Caffeine Use Yes Social History Narrative Not on file Social Drivers of Health Financial Resource Strain: Low Risk (02/24/2025) Overall Financial Resource Strain (CARDIA) Difficulty of Paying Living Expenses: Not very hard Food Insecurity: No Food Insecurity (03/15/2025) Hunger Screening Food Insecurity - Worry: Never True Food Insecurity - Inability: Never True Recent Concern: Food Insecurity - Food Insecurity Present (01/02/2025) Hunger Screening Food Insecurity - Worry: Often True Food Insecurity - Inability: Often True Transportation Needs: No Transportation Needs (02/28/2025) PRAPARE - Transportation Lack of Transportation (Medical): No Lack of Transportation (Non-Medical): No Physical Activity: Inactive (02/24/2025) Exercise Vital Sign Days of Exercise per Week: 0 days Minutes of Exercise per Session: 0 min Stress: No Stress Concern Present (02/24/2025) Citizen Of [place] of Occupational Health - Occupational Stress Questionnaire Feeling of Stress : Not at all Social Connections: Socially Isolated (02/24/2025) Social Connection and Isolation Panel [NHANES] Frequency of Communication with Friends and Family: Three times a week Frequency of Social Gatherings with Friends and Family: Three times a week Attends [employer] Services: Never Active Member of Clubs or Organizations: No Attends Club or Organization Meetings: Never Marital Status: Never Interpersonal Safety: Not At Risk (02/28/2025) Humiliation, Afraid, Rape, and Kick questionnaire Fear of Current or Ex-Partner: No Emotionally Abused: No Physically Abused: No Sexually Abused: No Housing Instability: Low Risk (02/28/2025) Housing Instability Housing Instability: No Review of Systems Review of Systems Constitutional: Negative. HENT: Negative. Eyes: Negative. Cardiovascular: Negative. Respiratory: Positive for cough. Endocrine: Negative. Hematologic/Lymphatic: Bruises/bleeds easily. Skin: Negative. Musculoskeletal: Negative. Gastrointestinal: Negative. Genitourinary: Negative. Neurological: Positive for dizziness. Psychiatric/Behavioral: Negative. Allergic/Immunologic: Negative. Vascular: Negative. CARDIOVASCULAR: Please review HPI. Physical Examination General appearance: Alert, oriented and cooperative. In no acute distress. Skin: Warm and dry to touch. Head: Normocephalic, without obvious abnormality, atraumatic. Ears, Nose, Mouth, Throat: Throat clear without erythema or exudate. Dentition intact. Eyes: Conjunctivae unremarkable, EOM intact. Neck: No JVD, No carotid bruit. Neck supple, trachea midline. Respiratory: Clear to auscultation bilaterally, no use of accessory muscles. Cardiovascular: RRR with normal S1 and S2 with no murmurs. Gastrointestinal: Soft, non-tender. Bowel sounds normal. Musculoskeletal: Trace edema on the right and 1+ on the left Neurologic: Oriented to time, person and place, affect appropriate. No focal/major motor defects noted. Psychiatric: Appropriate mood, memory and judgement. VITAL SIGNS: BP 108/82 Pulse 64 Ht 160 cm (5' 3 ) Wt 99.8 kg (220 lb) SpO2 96% BMI 38.97 kg/m Orders Placed or Reconciled This Encounter Medications atorvastatin (LIPITOR) 40 mg tablet Sig: Take 1 tablet (40 mg total) by mouth nightly. Dispense: 90 tablet Refill: 0 amiodarone (PACERONE) 200 mg tablet Sig: Take 1 tablet (200 mg total) by mouth in the morning. Dispense: 60 tablet Refill: 0 aspirin 81 mg Sig: Take 1 tablet (81 mg total) by mouth in the morning for 30 days. Dispense: 30 tablet Refill: 0 Medications Discontinued During This Encounter Medication Reason amiodarone (PACERONE) 200 mg tablet atorvastatin (LIPITOR) 40 mg tablet Reorder aspirin 81 mg Reorder IMPRESSIONS/PLAN 1. S/P CABG x 2 - [facility]; Future - atorvastatin (LIPITOR) 40 mg tablet; Take 1 tablet (40 mg total) by mouth nightly. Dispense: 90 tablet; Refill: 0 - aspirin 81 mg; Take 1 tablet (81 mg total) by mouth in the morning for 30 days. Dispense: 30 tablet; Refill: 0 2. Postoperative atrial fibrillation ([facility]) - amiodarone (PACERONE) 200 mg tablet; Take 1 tablet (200 mg total) by mouth in the morning. Dispense: 60 tablet; Refill: 0 Multivessel coronary artery disease status post CABG x2 with MAYBERRY lad, SVG to OM1, on 03/02/2025 diagnosed in the setting of abnormal stress test / chest pain Postoperative atrial fibrillation, CHADS-VASc 3 normal LA size, SHAUN 18.3 ml/m2 Preserved LV ejection fraction Primary hypertension Hyperlipidemia Tobacco abuse, quit earlier 2020 Prior history of prostate cancer in remission Doing well his blood pressure is better systolic still on the soft side, he is well compensated his still has trace bilateral lower extremity edema, instructed to continue Lasix for 1 more week then okay to stop (chest x-ray without vascular congestion or pleural effusions) Continue amiodarone for a total of 3 months Decision inpatient was to not anticoagulate while inpatient with 1 run to AFib without recurrence, he is in normal sinus rhythm today. Cardiac rehab and follow-up in 3 months with wireless monitor if no recurrence of AFib amiodarone should be discontinued then TODAYS ORDERS Orders Placed This Encounter Procedures [facility] Cardiac Rehab FOLLOW UP Return in about 3 months (around 06/14/2025). PCP: JASBIR Meza Referring Physician: No referring provider defined for this encounter. documented in this encounter [facility] 03-14-2025 History of Present illness Narrative Images from the original note were not included. Outpatient Follow-Up Note Date of Visit: 03/14/2025 PCP: JSABIR Meza Summary of Admission I had the pleasure today of seeing Meredith Villatoro in the office, in conjunction with, Dr. Pace, following their recent x2 with left internal thoracic artery to mid left anterior descending, greater saphenous vein graft from aorta to the 1st obtuse marginal performed on March 02 at [facility]. As you recall, Meredith Villatoro is a 64 y.o. male pt who presented to the emergency department with chest pain. Patient stated that this was his 1st episode of chest pain but does endorse feeling fatigue for the last several months. The patient underwent a cardiac catheterization today and was noted to have a diagonal that has a 50% stenosis that fills the LAD. The right coronary artery also has a 50% proximal stenosis the patient has preserved left ventricular function. The patient's risk factors include hypertension, hyperlipidemia, positive family history and remote tobacco dependence he denies diabetes. Dr. Pace has been consulted for possible surgical revascularization. Patient was seen in consultation at which time surgical risks, benefits, surgical procedure in the need for surgical intervention were carefully explained to the patient and his sister, he consented and wished to proceed with surgery. Coronary artery bypass grafting x2 performed on 03/02/2025. Postoperatively patient was then admitted to the Heart vascular ICU for close 1-1 monitoring care. He was successfully weaned from the mechanical ventilator and extubated to supplemental nasal cannula O2 later that evening. He was out of bed to the chair the following day. He was exquisitely painful requiring both IV and p.o. analgesics. Mediastinal chest tubes were weaned to water seal and subsequently discontinued. Left pleural chest tube remained to water-seal. He was in a normal sinus rhythm, blood pressures were slightly soft. Brothers catheter remained as he was admitted with a Brothers catheter and was scheduled to follow up with Urology outpatient. He was medically stabilized and ready to transferred to the intermediate step-down unit on postop day 1 While on the intermediate step-down unit remaining left pleural chest tube was discontinued. Chest x-ray the following day remained stable. Blood pressures remained soft. Brothers catheter remained in, and draining clear yellow urine. Patient's home urologist in [place] was contacted, he was cleared for void trials. He was slowly able mobilize in the hallway. PT OT evaluated patient and were recommending SNF at discharge. The patient does have a supportive at home including his 90-year-old mother. Patient was declining group home facility and wished to be discharged home. He then developed atrial fibrillation with RVR, he was started on IV amiodarone. He was hypotensive, 5 % albumin 12.5 g was given, patient remained hypotensive, midodrine 5 mg PO TID was then started. The following day the patient had numerous complaints including dizziness, lightheadedness, feeling as if the room was spinning and as if he was very anxious. Medications were adjusted. Patient did convert to normal sinus rhythm. His blood pressure began to recuperate. Midodrine dosing was decreased. Patient remained in a normal sinus rhythm, he was transition to p.o. amiodarone. No anticoagulation was initiated as it did not have recurrent atrial fibrillation. IV Lasix was transition to low-dose p.o. Lasix. The patient was euvolemic at the time of discharge. He has passed his void trials although he remained incontinent. He will follow up with Urology outpatient. He was mobilizing well with cardiac rehab this morning, he was in a normal sinus rhythm and hemodynamically stable. His bowels have moved his appetite is improving. Pain control is adequate at this time. He was discharged home in stable condition. He presents to the office for postoperative evaluation. Upon presentation, he has very few complaints. He states he is eating well resting well his pain is well controlled. His energy level continues to improve he has been ambulating multiple times throughout the day. He followed up with his primary care physician who was concerned about a rash coming up his side and he was given Medrol Dosepak. This rash has now resolved. Overall the patient is feeling well and he is accompanied by his sister to today's appointment Past Medical History Past Medical History: Diagnosis Date GERD (gastroesophageal reflux disease) H/O degenerative disc disease Hyperlipidemia Hypertension Prostate cancer ([facility]) Tubular adenoma Vertigo Visual impairment glasses Allergies Allergies Allergen Reactions Codeine-Guaifenesin Other reaction(s): COUGH / SNEEZING Home Meds Prior to Admission medications Medication Sig Start Date End Date Taking? Authorizing Provider amiodarone (PACERONE) 200 mg tablet Take 2 tablets (400 mg total) by mouth 2 (two) times a day for 5 days, THEN 1 tablet (200 mg total) daily for 30 days. 03/07/25 04/11/25 LEO Keating aspirin 81 mg Take 1 tablet (81 mg total) by mouth in the morning for 30 days. 03/08/25 04/07/25 LEO Keating atorvastatin (LIPITOR) 40 mg tablet Take 1 tablet (40 mg total) by mouth nightly for 30 days. 03/07/25 04/06/25 LEO Keating famotidine (PEPCID) 20 mg tablet Take 1 tablet (20 mg total) by mouth in the morning for 30 days. 03/08/25 04/07/25 LEO Keating furosemide (LASIX) 20 mg tablet Take 1 tablet (20 mg total) by mouth daily for 14 days. 03/08/25 03/22/25 LEO Keating metoprolol tartrate (LOPRESSOR) 25 mg tablet Take 1 tablet (25 mg total) by mouth in the morning and 1 tablet (25 mg total) before bedtime. Do all this for 30 days. 03/07/25 04/06/25 LEO Keating MYRBETRIQ 50 mg tablet extended release 24 hr Take 1 tablet (50 mg total) by mouth in the morning. 01/20/24 Not In System Ref Prov oxyCODONE (ROXICODONE) 5 mg immediate release tablet Take 1 tablet (5 mg total) by mouth every 6 (six) hours as needed for pain for up to 7 days. Max Daily Amount: 20 mg 03/07/25 03/14/25 LEO Keating polyethylene glycol (GLYCOLAX) 17 gram packet Take 17 g by mouth in the morning for 14 days. 03/08/25 03/22/25 LEO Keating sennosides-docusate sodium (SENOKOT-S) 8.6-50 mg Take 2 tablets by mouth in the morning and 2 tablets before bedtime. Do all this for 14 days. Indications: constipation. 03/07/25 03/21/25 LEO Keating tamsulosin (FLOMAX) 0.4 mg capsule Take 1 capsule (0.4 mg total) by mouth in the morning and 1 capsule (0.4 mg total) before bedtime. Not In System Ref Prov Physical Examination Vital Signs: BP 100/60 (BP Site: Left Arm, BP Postition: Sitting, BP CUFF SIZE: M (9-13 inches)) Pulse 71 Temp 36 C (96.8 F) (Temporal) Resp 20 Wt 98.4 kg (217 lb) SpO2 98% BMI 38.44 kg/m @PATIENTWT@ General appearance: Alert and Oriented, Resting Comfortably, and In no apparent distress Heart:S1 S2 and No murmur, click, taniya, or rub Lungs:clear and equal bilaterally Abdomen:soft non tender and non distended positive bowel sounds Extremities:pulses strong and equal bilaterally and moderate edema Incisions: Chest tube sites are healing well and sutures were removed at this time Labs CBC: BMP: PT/INR: Assessment and Plan Meredith Villatoro presents to the office, Meredith Villatoro was encouraged to continue to increase his activity level as tolerated. The patient was encouraged to call our office with any questions or concerns about his recent surgery. Driving and lifting instructions were reviewed with the patient and they verbalized understanding. Meredith Villatoro will follow up with Cardiology and primary care for ongoing medical management. All questions and concerns have been addressed in office today, medications have been reviewed. An outpatient phase 2 cardiac rehab program was encouraged, order was placed at the time of discharge. If you have any questions or concerns please do not hesitate to call. We thank you again for the referral of this patient and allowing us to participate in their care. Allen 03/14/25 1323 documented in this encounter [facility] 03-14-2025 Instructions LEO Allen - 03/14/2025 1:00 PM EDT 1. Please continue to wear Heart Hugger for a total of 5 weeks from the date of surgery 2. Please continue to observe a less than 10 pound lifting restriction for a total of 6 weeks from the date of surgery 3. Please follow up with your medical doctors including your dinkey skinner and primary care physician 4. Please plan to participate in phase 2 cardiac rehabilitation after following up with your dinkey skinner No further follow-up with our office but please do not hesitate to call with any questions or concerns about your recent surgery documented in this encounter [facility] 03-14-2025 Miscellaneous Notes Called patient to remind them to bring their most current copy of their medication list with them to their appt. Patient verbalizes understanding. documented in this encounter [facility] 03-14-2025 Telephone encounter Note Called patient to remind them to bring their most current copy of their medication list with them to their appt. Patient verbalizes understanding. [facility] 03-05-2025 Miscellaneous Notes Contract: [phone] [facility] Emerald re orders oc121 numerically paged eFde to Emerald at [facility] documented in this encounter [facility] 03-05-2025 Telephone encounter Note Contract: [phone] [facility] Emerald re orders [facility] 03-05-2025 Telephone encounter Note oc121 numerically paged Fede to Emerald at [facility] 03-04-2025 Miscellaneous Notes Contract: PPCRD [phone] [facility] Emerald re Low blood pressure; Rm B673 ppcrd message was sent to Kim via secure chat documented in this encounter [facility] 03-04-2025 Telephone encounter Note Contract: PPCRD [phone] [facility] Emerald re Low blood pressure; Rm B673 [facility] 03-04-2025 Telephone encounter Note ppcrd message was sent to Kim via secure chat [facility] 03-03-2025 Miscellaneous Notes Contract: HAZELANNE MARIE DIAZ is calling regarding Acute PA Press Operator Helper contacted SARAH Ho via secure chat advised to reach out to the facility documented in this encounter [facility] 03-03-2025 Telephone encounter Note Contract: BUZZ Summer @ [facility] is calling regarding Acute PA [facility] 03-03-2025 Telephone encounter Note Press Operator Helper contacted SARAH Ho via secure chat advised to reach out to the facility [facility] 02-20-2025 Note Patient Education Urology Dysuria Dysuria [...] these instructions at home: Medicines ??? Take btys-yiv-edjxmzv and prescription medicines only as told by [...] provider. Document Revised: 06/27/2021 Document Reviewed: 06/27/2021 Elsevier Patient Education ? 2023 [employer] [facility] 02-06-2025 Hospital Discharge instructions Patient Education 02/06/2025 13:42:33 EU - [...] Up Care 01/16/2025 08:30:41 With:Leila LAMBERT Address: [address] [place], [place] [id number] Business (1) When: Unknown Comments:Office will call to schedule follow up [facility] 02-06-2025 Evaluation + Plan note Extrac ori from: Title:Urology Progress Note Author:Jennifer LAMBERT MD Date:02/06/25 Impression and Plan Impression: #1. This gentleman's erratic urination seems to be caused by his new tumor growth within the prostatic urethra. Plan: #1. He is getting scheduled for cystoscopy and transurethral resection of prostate tumor under anesthesia. Future Appointments Appointment Date:03/01/2025 11:00:00 AM Scheduled Provider: Location:[facility] Appointment Type:URO Nurse Visit Appointment Date:03/05/2025 11:30:00 AM Scheduled Provider:Leila LAMBERT MD Location:[facility] Appointment Type:URO Office Visit Appointment Date:07/02/2025 10:00:00 AM Scheduled Provider: [facility] Type:URO Nurse Visit Appointment Date:07/23/2025 10:15:00 AM Scheduled Provider:Leila LAMBERT MD [facility] App[facility] Type:URO Office Visit [facility] [id number] NoteProgress Note-Physician Patient: MEREDITH VILLATORO Age: 64 years Sex: Male : 1960 Associated Diagnoses: None Author: PETRA OVIEDO, Leila Alba X this gentleman has high-grade prostate cancer [...] list: All Problems Arthritis / SNOMED CT 4711167 / Confirmed Hypertension / SNOMED CT 0770607992 / Confirmed High cholesterol / SNOMED CT 50412322 / Confirmed Bilateral hydrocele / SNOMED CT 1035891590 / Confirmed Prostate nodule / SNOMED CT 3655028491 / Confirmed BPH with obstruction/lower urinary tract symptoms / SNOMED CT 0891231396 / Confirmed Prostate cancer / SNOMED CT 9209902768 / Confirmed Epididymitis / SNOMED CT 69116399 / Confirmed Dysuria / SNOMED CT 79294331 / Confirmed Nocturia / SNOMED CT 734943545 / Confirmed Urge incontinence / SNOMED CT 268027550 / Confirmed Feeling of incomplete bladder emptying / SNOMED CT 966398917 / Confirmed Prostatitis / SNOMED CT 46473036 / Confirmed Gross hematuria / SNOMED CT 988863338 / Confirmed History of prostatitis / SNOMED CT 8078492128 / Confirmed Rising PSA following treatment for malignant neoplasm of prostate / SNOMED CT 7485947172 / Confirmed Histories Past Medical History: No active or resolved past medical history items have been selected or recorded. Family History: Hypertension Mother Procedure history: Brachytherapy ([id number]) on 05/21/2022 at 61 Years. MRI-US fusion guided transrectal biopsy of prostate ([id number]) on 02/05/2022 at 61 Years. MRI of prostate ([id number]) on 01/08/2022 at 61 Years. Colonoscopy ([id number]). Social History Social & Psychosocial Habits Tobacco [...] and transurethral resection of prostate tumor under anesthesia.[facility]: Result Comment: Electronically Signed By: Leila LAMBERT MD\Date and Time Signed: 02/06/25 13:50 [id number] NotePatient Education Custom Cystoscopy ??? Voiding after [...] if you have a fever over 100 degrees.[facility] 01-23-2025 NoteHNO ID: [id number] Author: SHARON OCAMPO RN Service: ? Author Type: Registered Nurse Type: Progress Notes Filed: 01/30/2025 09:41 Note Text: AUA= 20[facility]02-25-2025 History of Present illness Narrative * [...] ASSESSMENT/PLAN: Prostate adenocarcinoma, initial PSA 2.0, biopsy Baldwyn score 4 + 4 = 8 (grade [...] by: Jhony Lux MD [facility] NoteHNO ID: [id number] Author: Jhony LUX MD Service: ? Author [...] ASSESSMENT/PLAN: Prostate adenocarcinoma, initial PSA 2.0, biopsy Baldwyn score 4 + 4 = 8 (grade [...] GI as already arranged. Signed by: Jhony Lux, [facility]02-18-2025 History of Present illness Narrative* Kerri Shah, GAMING MANAGER-LINING FELLER - 01/16/2025 2:30 PM EST Images from [...] however, has not seen GI doc in [place] in awhile to get refills. He has IBS and [...] degenerative disc disease Hyperlipidemia Hypertension Prostate cancer ([facility]) Tubular adenoma Vertigo Visual impairment glasses Past Surgical History: Procedure Laterality Date ARTHROSCOPY SHOULDER debridment of type 1 slap lesion , and subacromial decompression Left 05/20/2017 Performed by Jr Zainab Barber DO at [facility] CHOLECYSTECTOMY COLON SURGERY 03/14/2013 Low Anterior Colon Resection- Dr. De Leon & Dr. Chau COLONOSCOPY N/A 08/05/2017 Performed by Edgar De Leon MD at [facility] COLONOSCOPY DIAGNOSTIC / SCREENING N/A 09/11/2024 Performed by Tracy Chau DO at [facility] FOOT SURGERY Left 11/2024 PROSTATE SURGERY [...] patient/family/caregiver Referring and communicating with other health child care giver Gastroenteritis and colitis, viral [A08.4] LEO BERNAL [facility] General Surgery [place] This note was created with the assistance of a speech recognition program. While intending to generate a timely document that accurately reflects the content of the visit, no guarantee can be provided that every grammatical or spelling mistake has been or will be identified or corrected. Thank you for your understanding. LEO Bernal 01/16/25 1514 [facility] Hospital Discharge instructions Patient Education 01/15/2025 12:24:02 [...] nerve stimulation). ?For women, using a medical information officer to prevent urine leaks. This is a [...] right after experiencing incontinence. General instructions Take zqtc-kfv-qqneqpw and prescription medicines only as told by [...] important. Where to find more information National [place] of Diabetes and Digestive and Kidney Diseases: www.niddk.nih.gov [place] [employer]: www.urologyhealth.org Contact a health care [...] provider. Document Revised: 06/20/2021 Document Reviewed: 06/20/2021 [employer] Patient Education 2023 [employer]. 01/15/2025 12:23:58 Cystoscopy Cystoscopy Cystoscopy is a [...] including vitamins, herbs, eye drops, creams, and votf-oso-encwuaf medicines. Any problems you or family members [...] provider tells you to take them. Taking yehi-spz-ficpctm medicines, vitamins, herbs, and supplements. Tests You [...] Follow these instructions at home: Medicines Take cikk-iys-ifpsteb and prescription medicines only as told by [...] provider. Document Revised: 07/29/2022 Document Reviewed: 06/27/2021 [employer] Patient Education 2023 [employer]. Follow Up Care 10/16/2024 13:01:02 With:PETRA OVIEDO, Leila Simpson, URL Address: [facility] [address] [place] [phone] When: Unknown [facility] 02-17-2025 NotePatient Education Urology Urinary Incontinence Urinary [...] stimulation). ? For women, using a medical information officer to prevent urine leaks. This is a [...] your health care provider (more content not included)...[facility] 10-16-2024 Hospital Discharge instructions Patient Education 10/16/2024 [...] under a microscope. This is called the Baldwyn score and the total score can range from 6 10, indicating how likely it is that the cancer will spread (metastasize) to other parts of the body. The higher the score, the greater thelikelihood that the cancer will spread. Baldwyn 6 or lower: This indicates that the [...] stress of having cancer. General instructions Take mawf-tiu-gmxqcfn and prescription medicines only as told by your health care provider. If you have to go to the hospital, notify your cancer specialist (oncologist). Keep all follow-up visits. This is important. Where to find more information [place] [employer]: www.cancer.org [place] [employer] of Clinical Oncology: www.cancer.net National Cancer [place]: www.cancer.gov Contact a health care provider if: [...] provider. Document Revised: 02/11/2022 Document Reviewed: 02/11/2022 [employer] Patient Education 2023 [employer]. Follow Up Care 03/17/2024 12:32:12 With:PETRA OVIEDO, Leila Simpson, URL Address: [facility] [address] [place] [phone] When: Unknown Comments:3 mos w/ PSA and Lupron [facility] 11-18-2024 NotePatient Education Oncology Prostate Cancer The [...] to normal prostate cells (well differentiated). ??? Baldwyn 7: This indicates that the cancer cells [...] needles, seeds, wires, o (more content not included)...[facility]11-12-2024 History of Present illness Narrative* Melo Reilly, DPM - 10/10/2024 9:00 AM EST Images from [...] understanding. Melo Reilly DPM documented in this encounterChildren's Mercy [id number] History of Present illness Narrative* Kerri Benitez [...] joint and anankle scope by a different behavioral consultant to remove some of the excess bone [...] understanding. Kerri Benitez DPM documented in this encounterChildren's Mercy [id number] Miscellaneous Notes* Telephone Encounter - Willie Jason CMA - 09/15/2024 1:48 PM EDT ----- Message from Dr. Tracy Chau DO sent at 09/15/2024 7:21 AM EDT ----- Please call pt. And let him know that polyps are benign and that colon biopsies were negative for colitis.He need surveillance colon scope in 5 years unless problems. Thanks, Dr. Martinez * Telephone Encounter - Willie Jason CMA - 09/15/2024 1:48 PM EDT Spoke with patient regarding pathology results. Patient verbally understood with no further questions. Recall to be put in chart. [facility] [employer] [id number] Telephone encounter Note* Telephone Encounter - Willie Jason CMA - 09/15/2024 1:48 PM EDT ----- Message from Dr. Tracy Chau DO sent at 09/15/2024 7:21 AM EDT ----- Please call pt. And let him know that polyps are benign and that colon biopsies were negative for colitis.He need surveillance colon scope in 5 years unless problems. Thanks, Dr. Martinez [facility]10-18-2024 Telephone encounter Note* Telephone Encounter - Willie Jason CMA - 09/15/2024 1:48 PM EDT Spoke with patient regarding pathology results. Patient verbally understood with no further questions. Recall to be put in chart. [facility] [employer] [id number] Miscellaneous Notes* Perioperative Nursing Note - Odalys Taylor RN - 09/05/2024 2:50 PM EDT Preoperative Education Checklist- General Surgery date: 09/11/24 Surgery time: 1130 Arrival time: 0930 1. Bring a photo ID and your insurance card with you the day of surgery. You will check in at the main lobby of the [facility]- registration desk is straight ahead as soon as you walk in. Tell them you are here for surgery. 2. If you have a Living Will/Durable Power of Accounts Payable Assistant for Health Care that is not on [...] after you have bathed. 5. NO nail guyanese/acrylic on at least one finger. If you are having a hand, wrist or foot surgery then all nail guyanese and artificial/acrylic nails must be removed from [...] please call the Preadmission Testing office at [phone], Mon.-Fri. 7 a.m.-3 p.m. Leave a voicemail [...] days prior to procedure documented in this encounterKettering [facility] Hospital10-08-2024 Nurse Note* Perioperative Nursing Note - Odalys Taylor RN - 09/05/2024 2:50 PM EDT Preoperative Education Checklist- General Surgery date: 09/11/24 Surgery time: 1130 Arrival time: 929 1. Bring a photo ID and your insurance card with you the day of surgery. You will check in at the main lobby of the [facility]- registration desk is straight ahead as soon as you walk in. Tell them you are here for surgery. 2. If you have a Living Will/Durable Power of Accounts Payable Assistant for Health Care that is not on [...] after you have bathed. 5. NO nail guyanese/acrylic on at least one finger. If you are having a hand, wrist or foot surgery then all nail guyanese and artificial/acrylic nails must be removed from [...] please call the Preadmission Testing office at [phone], Mon.-Fri. 7 a.m.-3 p.m. Leave a voicemail [...] Stop taking [address] [facility] [employer] [id number] Telephone encounter Note* Telephone Encounter - Cindy Maxwell - 08/24/2024 1:45 PM EDT We [facility] but they do need a wet signature before we send again. I will set on your desk. Children's Mercy [id number] Miscellaneous Notes* Telephone Encounter - Cindy Mawxell - 08/24/2024 1:45 PM EDT We had to [facility], but they do need a wet signature before we send again. I will set on your desk. documented in this encounterChildren's Mercy [id number] History of Present illness Narrative* Kerri Shah, GAMING MANAGER-LINING FELLER - 08/23/2024 11:30 AM EDT Images from [...] fast food. His last colonoscopy was in [address] De Leon and was normal. [...] Performed by Jr Zainab Barber DO at [facility] CHOLECYSTECTOMY COLON SURGERY 03/14/2013 Low Anterior Colon Resection- Dr. De Leon & Dr. Chau COLONOSCOPY N/A 08/05/2017 Performed by Edgar De Leon MD at [facility] PROSTATE SURGERY hx prostate cancer with radiation [...] patient/family/caregiver Referring and communicating with other health child care giver Diarrhea, unspecified type [R19.7] LEO BERNAL [facility] General Surgery [place] This note was created with the assistance of a speech recognition program. While intending to generate a timely document that accurately reflects the content of the visit, no guarantee can be provided that every grammatical or spelling mistake has been or will be identified or corrected. Thank you for your understanding. LEO Bernal 08/23/24 1242 documented in this encounterKettering Memorial Hospital08-20-2024 History of Present illness Narrative* Kerri Benitez DPM - 07/18/2024 1:15 PM EDT Images from [...] and an ankle scope by a different behavioral consultant to remove some of the excess bone [...] symptoms and therefore a custom, rigid AFO ([place]het brace or [place]) brace is recommended. RX for Cook Syrup Maker and Leimkuehlers given to the pt, as [...] understanding. Kerri Benitez DPM documented in this encounterChildren's Mercy [id number] Hospital Discharge instructions Patient Education 03/17/2024 12:20:18 [...] under a microscope. This is called the Baldwyn score and the total score can range [...] similar to normal prostate cells (moderately differentiated). Baldwyn 8, 9, or 10: This indicates that [...] stress of having cancer. General instructions Take djlx-mia-nzvgxlr and prescription medicines only as told by your health care provider. If you have to go to the hospital, notify your cancer specialist (oncologist). Keep all follow-up visits. This is important. Where to find more information [place] [employer]: www.cancer.org [place] Society of Clinical Oncology: www.cancer.net National Cancer [place]: www.cancer.gov Contact a health care provider if: [...] provider. Document Revised: 02/11/2022 Document Reviewed: 02/11/2022 [employer] Patient Education 2022 [employer]. Follow Up Care 09/13/2023 15:56:01 With:PETRA OVIEDO, Leila Simpson, URL Address: [address] [place] [id number]- When: Unknown [facility] 02-06-2024 History of Present illness Narrative* [...] ASSESSMENT/PLAN: Prostate adenocarcinoma, initial PSA 2.0, biopsy Baldwyn score 4 + 4 = 8 (grade [...] DIAGNOSIS: Prostate adenocarcinoma, initial PSA 2.0, biopsy Baldwyn score 4 + 4 = 8 (grade [...] by: Jhony Lux MD documented in this encounterCleveland Clinic Mercy Hospital02-06-2024 Nurse Note* Sharon Ocampo LPN - 01/04/2024 2:15 PM EST AUA= 13 Clinical questionnaires incomplete due to Patient declined to complete or answer questions with nurse documented in this encounterCleveland Clinic Mercy Hospital10-16-2023 Hospital Discharge instructions Patient Education 09/13/2023 15:45:43 [...] urethra. Follow these instructions at home: Take zscy-ldr-ouhgdkb and prescription medicines only as told by [...] provider. Document Revised: 06/03/2022 Document Reviewed: 06/03/2022 [employer] Patient Education 2022 [employer] 05/17/2023 08:39:24 Prostate Cancer Prostate Cancer The [...] under a microscope. This is called the Baldwyn score and the total score can range from 6 10, indicating how likely it is that the cancer will spread (metastasize) to other parts of the body. The higher the score, the greater thelikelihood that the cancer will spread. Baldwyn 6 or lower: This indicates that the cancer cells look similar to normal prostate cells (well differentiated). Baldwyn 7: This indicates that the cancer cells look somewhat similar to normal prostate cells (moderately differentiated). Baldwyn 8, 9, or 10: This indicates that [...] stress of having cancer. General instructions Take bwiu-eiu-ufjgubi and prescription medicines only as told by your health care provider. If you have to go to the hospital, notify your cancer specialist (oncologist). Keep all follow-up visits. This is important. Where to find more information [place] [employer]: www.cancer.org [place] Society of Clinical Oncology: www.cancer.net National Cancer [place]: www.cancer.gov Contact a health care provider if: [...] provider. Document Revised: 02/11/2022 Document Reviewed: 02/11/2022 Elsevier Patient Education 2022 [employer]. Follow Up Care 05/12/2023 15:19:24 With:PETRA OVIEDO, AP Bautista Address: [facility] [address] [place] [address]- When:Within 6 Month(s) Comments:w/PSA [facility] [place] 08-14-2023 Hospital Discharge instructions Patient Education 07/12/2023 [...] under a microscope. This is called the Baldwyn score and the total score can range from 6 10, indicating how likely it is that the cancer will spread (metastasize) to other parts of the body. The higher the score, the greater thelikelihood that the cancer will spread. Judd 6 or lower: This indicates that the cancer cells look similar to normal prostate cells (well differentiated). Baldwyn 7: This indicates that the cancer cells [...] stress of having cancer. General instructions Take ecdo-qnb-znworcr and prescription medicines only as told by your health care provider. If you have to go to the hospital, notify your cancer specialist (oncologist). Keep all follow-up visits. This is important. Where to find more information [place] Cancer Society: www.cancer.org [place] Society of Clinical Oncology: www.cancer.net National Cancer [place]: www.cancer.gov Contact a health care provider if: [...] provider. Document Revised: 02/11/2022 Document Reviewed: 02/11/2022 [employer] Patient Education 2022 [employer]. Follow Up Care 05/17/2023 12:57:55 With:PETRA OVIEDO, Leila Simpson, URL Address: [facility] [address], [facility] [place] [phone] When: Unknown Comments:f/u scheduled 09/13/23 with PSA [facility] 08-08-2023 Nurse Note* Michelle Dalal RN - 07/06/2023 1:52 PM EDT AUA 18 Michelle Dalal RN documented in this encounterCleveland Clinic Mercy Hospital08-08-2023 History of Present illness Narrative* Jhony Lux [...] ASSESSMENT/PLAN: Prostate adenocarcinoma, initial PSA 2.0, biopsy Baldwyn score 4 + 4 = 8 (grade [...] by: Jhony Lux MD documented in this encounterCleveland Clinic Mercy Hospital06-07-2023 Evaluation note* Encounter Date Diagnosis Assessment Notes Treatment Notes Treatment Clinical Notes Apr, Chronic diarrhea (ICD-10 - K52.9) [facility] Other 04-10-2023 Hospital Discharge instructions Patient Education [...] who: Are older than age 65. Are -[place]. Are obese. Have a family history of [...] cells. Follow these instructions at home: Take pajk-rgu-sqbnqyw and prescription medicines only as told by [...] 11/15/2006 Document Revised: 10/28/2018 Document Reviewed: 07/26/2017 [employer] Patient Education [employer]. Follow Up Care 03/08/2023 10:43:59 With:PETRA OVIEDO, Leila Simpson, URL Address: [facility] [address] [place] [address]- When: Unknown [facility] [place] 02-23-2023 History of Present illness Narrative* Albina [...] intake is as follows: B- cookies L- [employer] Sub D- usually similar to lunch [...] Change: Gain of 5.8kg x 6 months [place] Body Weight: 60.9kg Estimated kilocalorie needs: 1522 kilocalories determined by 25 kcal/kg Estimated protein needs: 61-73 grams determined by 1.0-1.2 g/kg [place] weight Estimated fluid needs: ~1500 milliliters based [...] pt request Referred by: Mary Iraheta APRN.SARAH MNArjun Billing Type: Initial Assess/15 min 1 unit Time Spent with Patient: 15 minutes Signed by: Albina Russell MS, RDN, LD documented in this encounterCleveland Clinic Mercy Hospital10-07-2022 Hospital Discharge instructions Patient Education 09/04/2022 [...] urethra. Follow these instructions at home: Take ohka-pvt-jsjzwzu and prescription medicines only as told by [...] 11/15/2006 Document Revised: 10/10/2019 Document Reviewed: 12/20/2017 [employer]agg Patient Education 2020 [employer]. Follow Up Care 02/27/2022 12:25:22 With:PETRA OVIEDO, Leila Simpson, URL Address: [address] [place], [place] [id number]- When: Unknown [facility] [place] 08-09-2022 Nurse Note* Michelle Dalal RN - 07/07/2022 2:34 PM EDT AUA 18. Pt does not have med list. Michelle Dalal RN documented in this encounterCleveland Clinic Mercy Hospital08-09-2022 History of Present illness Narrative* Jhony [...] by: Jhony Lux MD documented in this encounterCleveland Clinic Mercy Hospital07-21-2022 History of Present illness Narrative* Jhony Lux MD - 06/18/2022 8:30 AM EDT Radiation Oncology - Follow Up Note PATIENT NAME: Meredith Villatoro PATIENT DIAGNOSIS: Prostate adenocarcinoma, initial PSA 2.0, biopsy Baldwyn score 4 + 4 = 8 (grade [...] ASSESSMENT/PLAN: Prostate adenocarcinoma, initial PSA 2.0, biopsy Baldwyn score 4 + 4 = 8 (grade [...] by: Jhony Lux MD documented in this encounterCleveland Clinic Mercy Hospital07-21-2022 Nurse Note* Sharon Ocampo LPN - 06/18/2022 8:30 AM EDT AUA= 13 documented in this encounterCleveland Clinic Mercy Hospital07-21-2022 History of Present illness Narrative* Jhony Lux MD - 06/18/2022 12:00 AM EDT Patient: Meredith Villatoro Date:06/18/2022 [facility] Department of Radiation Oncology [facility] RADIATION ONCOLOGY POST SEED IMPLANT SIMULATION NOTE [...] will commence following simulation. documented in this encounterCleveland Clinic Mercy Hospital07-11-2022 History of Present illness Narrative* G Johan Lux MD - 06/08/2022 9:00 AM EDT Radiation Oncology - Follow Up Note PATIENT NAME: Meredith Villatoro PATIENT DIAGNOSIS: Prostate adenocarcinoma, initial PSA 2.0, biopsy Baldwyn score 4 + 4 = 8 (grade [...] ASSESSMENT/PLAN: Prostate adenocarcinoma, initial PSA 2.0, biopsy Baldwyn score 4 + 4 = 8 (grade [...] Signed by: Jhony Lux MD cc: Adrian Castano [address] [place] [address] * Albina Byrne RN - 06/04/2022 1:40 PM EDT AUA=21 Albina Byrne RN documented in this encounterCleveland Clinic Mercy Hospital06-27-2022 History of Present illness Narrative* Jhony Lux MD - 05/25/2022 2:34 PM EDT Date: 05/21/22 Facility: [facility] Procedure: prostate transperineal brachytherapy implant Sources: [...] activity seen, results documented. Michelle Lux MD [facility] documented in this encounterCleveland Clinic Mercy Hospital06-14-2022 History of Present illness Narrative* Jhony Lux MD - 05/12/2022 12:00 AM EDT MEREDITH VILLATORO [id number] 05/12/2022 [facility] Department of Radiation Oncology [facility] RADIATION ONCOLOGY BRACHYTHERAPY TREATMENT PLANNING NOTE For [...] M.D. / 24:21 PM documented in this encounterCleveland Clinic Mercy Hospital06-07-2022 History of Present illness Narrative* Jhony [...] collected. Jhony Lux MD documented in this encounterCleveland Clinic Mercy Hospital06-07-2022 History of Present illness Narrative* Jhony Lux MD - 05/05/2022 12:00 AM EDT MEREDITH VILLATORO [id number] 05/05/2022 [facility] Department of Radiation Oncology [facility] RADIATION ONCOLOGY SIMULATION NOTE DATE OF SIMULATION: 05/05/2022 MACHINE: Sprinklr Focus 500 Diagnosis: 185 (Prostate Gland) AREA:Prostate PATIENT POSITION: Supine CONTRAST: None PROTOCOL: None CONCURRENT THERAPY: None FIXATION DEVICE: UTS Stabilization device by [facility]. PROCEDURE: Patient was simulated in exaggerated dorsal lithotomy position. Serial images of the prostate were acquired using TRUS and reconstructed in 3D space. These images were imported into [employer] Prostate planning system where a plan was generated. ASSESSMENT/PLAN: Patient tolerated simulation procedure well. Electronically Signed Johan Lux M.D. / :50 PM documented in this encounterCleveland Clinic Mercy Hospital05-27-2022 History of Present illness Narrative* Jhony Lux MD - 04/24/2022 12:00 AM EDT [facility] Radiation Oncology Department RADIATION ONCOLOGY - COMPLETION NOTE PATIENT: DAVID VILLATOROB: 1960 DATES OF TREATMENT: 03/23/22 - 04/24/22 DIAGNOSIS: Prostate adenocarcinoma, initial PSA 2.0, biopsy Baldwyn score 4 + 4 = 8 (grade [...] PM Electronically Signed cc: Dr. Petra Castano, LINING FELLER documented in this encounterCleveland Clinic Mercy Hospital05-23-2022 History of Present illness Narrative* Jhony [...] planned. Jhony Lux MD documented in this encounterCleveland Clinic Mercy Hospital05-16-2022 History of Present illness Narrative* Yevgeniy [...] planned. Yevgeniy Son MD documented in this encounterCleveland Clinic Mercy Hospital05-16-2022 Miscellaneous Notes* Telephone Encounter - Michelle [...] fluids. Michelle Dalal RN documented in this encounterCleveland Clinic Mercy Hospital05-09-2022 History of Present illness Narrative* Jhony Lux [...] planned. Jhony Lux MD documented in this encounterCleveland Clinic Mercy Hospital05-05-2022 History of Present illness Narrative* Jhony [...] planned. Jhony Lux MD documented in this encounterCleveland Clinic Mercy Hospital05-05-2022 Nurse Note* Sharon Ocampo LPN - 04/02/2022 [...] assist. Sharon Ocampo LPN documented in this encounterCleveland Clinic Mercy Hospital05-03-2022 History of Present illness Narrative* G Johan Lux MD - 03/31/2022 1:39 PM EDT [...] planned. Jhony Lux MD documented in this encounterCleveland Clinic Mercy Hospital04-25-2022 History of Present illness Narrative* Jhony Lux MD - 03/23/2022 4:19 PM EDT Radiation Oncology - On Treatment Review (OTR) Note PATIENT NAME: Meredith Villatoro PATIENT DIAGNOSIS: Prostate adenocarcinoma, initial PSA 2.0, biopsy Baldwyn score 4 + 4 = 8 (grade [...] planned. Jhony Lux MD documented in this encounterCleveland Clinic Mercy Hospital04-22-2022 Miscellaneous Notes* Telephone Encounter - Sharon Ocampo LPN - 03/20/2022 4:27 PM EDT CBC order pending your approval. Sharon Ocampo LPN documented in this encounterCleveland Clinic Mercy Hospital04-18-2022 History of Present illness Narrative* Jhony Lux MD - 03/16/2022 12:00 AM EDT MEREDITH VILLATORO [id number] 03/16/2022 [facility] Radiation Oncology Department SIMULATION NOTE DATE OF SIMULATION: 03/16/2022 THERAPIST: Viky Alicea MACHINE: Deligic DIAGNOSIS: Malignant neoplasm of [id number] AREA: PELVIS CONTRAST: None <Select> Consent in [...] / WST 24:16 PM documented in this encounterCleveland Clinic Mercy Hospital04-18-2022 History of Present illness Narrative* Jhony Lux MD - 03/16/2022 12:00 AM EDT MEREDITH VILLATORO [id number] 03/16/2022 [facility] Department of Radiation Oncology Treatment Planning [...] Lux M.D. 23:19 PM documented in this encounterCleveland Clinic Mercy Hospital04-13-2022 History of Present illness Narrative* TERRELL Lockhart - 03/11/2022 4:04 PM EDT PSYCHOSOCIAL ASSESSMENT Date of Service: March 11, 2022 Mereidth Villatoro is a 61 year old male being seen for initial social work assessment. Diagnosis: Prostate Cancer New Primary Oncologist: Unknown Radiation Oncologist: Dr. Michelle Lux Goals of Care: Curative intent Today's visit includes: self/patient and friends Family History of Cancer: none SUPPORT NETWORK: Marital status: Single Parent(s): Mother is living and Father is Child/Children: No career information specialist arrangements needed: Na Siblings: 2 sister(s) Grandchild(morris): none Home Health Provider: No Community Services: No Noelle Identified: No Bahai/Spirituality: None Are these practices or beliefs that may affect or influence treatment? 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 N/A Financial Distress: Yes, [...] EPIC: No Health Care Durable Power of Accounts Payable Assistant: No and declined at this time Scanned [...] Resources and Referrals: Internal: NA External: Other [facility] CLINICAL IMPRESSION: Patient is a 61 year old male with a diagnosis of prostate cancer. Patient lives in [place], [place] with his mother and sister. Patient [...] to complete an Intake Application for the [facility]. SW faxed the completed form and encouraged the Patient to call the [facility] to finalize details of his intake application. [...] PRN Follow up appointment with SW in: JOSEFAN MARK Lockhart documented in this encounterCleveland Clinic Mercy Hospital04-13-2022 Nurse Note* Michelle aDlal RN - 03/11/2022 1:58 PM EDT Radiation Therapy - Patient Education Note PATIENT NAME: Meredith Villatoro PATIENT March 11, 2022 [facility] FACILITY/LOCATION: [facility] READINESS TO LEARN Cognitive Ability: Alert [...] by: Michelle Dalal RN documented in this encounterCleveland Clinic Mercy Hospital04-13-2022 Nurse Note* Michelle Dalal RN - 03/11/2022 1:03 PM EDT AUA 8 Michelle Dalal RN documented in this encounterCleveland Clinic Mercy Hospital04-13-2022 History of Present illness Narrative* G Johan Lux MD - 03/11/2022 1:02 PM EDT [...] fusion biopsy on February 05, 2022 revealed: Judd 8 (4+4) adenocarcinoma with areas of perineural [...] Signed by: Jhony Lux MD cc: Adrian Castano [address] [place] [address] Leila Lambert [address] [place] [address] documented in this encounterCleveland Clinic Mercy HospitalEvaluation + Plan note Future Appointments Appointment Date:09/04/2022 10:15:00 AM Scheduled Provider:[facility] Visit [facility] evaluation + Plan note Future Appointments Appointment Date:03/08/2023 02:45:00 PM Scheduled Provider:Leila LAMBERT MD Location:[facility] Appointment Type:URO Office Visit Diagnostic Tests Pending * PSA Total 11/29/22 [facility] evaluation + Plan note Future Appointments Appointment Date:03/08/2023 02:45:00 PM Scheduled Provider:Leila LAMBERT MD Location:[facility]ments Appointment Date:09/13/2023 10:15:00 AM Scheduled Provider:Leila LAMBERT [facility] Type:[facility]O Office Visit Diagnostic Tests Pending * PSA Total 03/08/23 Future Scheduled Tests Laboratory* PSA Total 02/16/23 [facility] evaluation + Plan note Future Appointments Appointment Date:05/17/2023 11:45:00 AM Scheduled Provider:Leila LAMBERT MD [facility] Type:URO Office Visit Appointment Date:09/13/2023 10:15:00 AM Scheduled Provider:Leila LAMBERT MD [facility] Type:URO Office Visit Future Scheduled Tests Laboratory* PSA Total 02/16/23 [facility] evaluation + Plan note Future Appointments Appointment Date:07/12/2023 10:30:00 AM Scheduled Provider:Leila LAMBERT [facility] Type:URO Office Visit Appointment Date:09/13/2023 11:45:00 AM Scheduled Provider:Leila LAMBERT MD [facility] Type:URO Office Visit Future Scheduled Tests Laboratory* PSA Total 02/16/23 [facility] evaluation + Plan note Future Appointments Appointment Date:09/06/2023 09:30:00 AM Scheduled Provider: Location:[facility] Appointment Type:URO Nurse Visit Appointment Date:09/13/2023 11:45:00 AM Scheduled Provider:Leila LAMBERT MD Location:[facility] Appointment Type:URO Office Visit Future Scheduled Tests Laboratory* PSA Total 02/16/23 [facility] evaluation + Plan note Future Appointments Appointment Date:03/17/2024 10:45:00 AM Scheduled Provider:Leila LAMBERT MD Location:[facility] Appointment Type:URO Office Visit Diagnostic Tests Pending * PSA Total 09/13/23 Future Scheduled Tests Laboratory* PSA Total 02/16/23 [facility] evaluation + Plan note Future Appointments Appointment Date:09/29/2024 09:45:00 AM Scheduled Provider:Leila LAMBERT MD Location:[facility] Appointment Type:URO Office Visit Diagnostic Tests Pending * PSA Total 07/30/24 [facility] evaluation + Plan note Future Appointments Appointment Date:09/29/2024 09:45:00 AM Scheduled Provider:Leila LAMBERT MD [facility] App[facility]ments Appointment Date:10/16/2024 11:45:00 AM Scheduled Provider:Leila LAMBERT MD [facility] App[facility]ment Type:URO Office Visit [facility] evaluation + Plan note Future Appointments Appointment Date:01/08/2025 09:30:00 AM Scheduled Provider: Location:[facility] Appointment Type:URO Nurse Visit Appointment Date:01/15/2025 11:15:00 AM Scheduled Provider:Leila LAMBERT MD Location:[facility] Appointment Type:URO Office Visit Diagnostic Tests Pending * PSA Total 10/16/24 [facility] evaluation + Plan note Future Appointments Appointment Date:01/15/2025 11:15:00 AM Scheduled Provider:Leila LAMBERT MD Location:[facility] Appointment Type:URO Office Visit [facility] evaluation + Plan note Future Appointments Appointment Date:07/02/2025 10:00:00 AM Scheduled Provider: Location:[facility] Appointment Type:URO Nurse Visit Appointment Date:07/23/2025 10:15:00 AM Scheduled Provider:Leila LAMBERT MD [facility] Appoint[facility] Type:URO Office Visit Diagnostic Tests Pending * PSA Total 01/15/25 [facility] evaluation + Plan note Future Appointments Appointment Date:09/13/2025 10:00:00 AM Scheduled Provider: [facility] Appointment Type:URO Nurse Visit Appointment Date:09/17/2025 10:45:00 AM Scheduled Provider:Leila LAMBERT MD [facility] Appointment Type:URO Office Visit [facility] evaluation + Plan note Future Appointments Appointment Date:09/17/2025 10:45:00 AM Scheduled Provider:Leila LAMBERT MD [facility] Appoint[facility] Type:URO Office Visit [facility] evaluation note* Diagnosis Prostate cancer (HCC)- Primary [...] Hypertrophy of breast [facility] Work Phone: Evaluation note* Diagnosis History of prostate cancer- Primary Personal history of malignant neoplasm of prostate Prostate cancer (HCC) Malignant neoplasm of prostate [facility] Diagnosis Onset Date Resolution Status Abdominal pain acute Diarrhea acute [facility] Work Phone: evaluation note* Diagnosis Onset Date Resolution Status Abdominal pain acute Diarrhea acute IBS (irritable bowel syndrome) acute [facility] Work Phone: Evaluation note* Diagnosis Arthritis of left ankle- Primary Other enthesopathy of left foot and ankle Chronic pain of left ankle Other synovitis and tenosynovitis, left ankle and foot [facility] Diagnosis Arthritis of left ankle- Primary Other synovitis and tenosynovitis, left ankle and foot Chronic pain of left ankle [facility] Diagnosis Arthritis of left ankle- Primary Other enthesopathy of left foot and ankle Chronic pain of left ankle Other synovitis and tenosynovitis, left ankle and foot Difficulty walking Difficulty in walking [facility] Diagnosis Diarrhea, unspecified type- Primary Fecal urgency Personal history of prostate cancer Personal history of malignant neoplasm of prostate [facility]* Diagnosis Gastroenteritis and colitis, viral- Primary Intestinal infection due to other organism, NEC Irritable bowel syndrome, unspecified type documented [facility]* Diagnosis Prostate cancer (HCC)- Primary Malignant neoplasm of prostate [facility]* Diagnosis Coronary artery disease involving [place] coronary artery of [place] heart with unstable angina pectoris ([facility]-HCC)- Primary [facility]* Diagnosis S/P CABG x 2- Primary Postsurgical aortocoronary bypass status Postoperative atrial fibrillation (CMS-HCC) documented [facility]* Diagnosis S/P CABG x 2 Postsurgical aortocoronary bypass status Postoperative atrial fibrillation (CMS-HCC) documented [facility]* Diagnosis S/P CABG x 2 Postsurgical aortocoronary bypass status documented [facility]* Diagnosis Postoperative atrial fibrillation (CMS-HCC) documented [facility]* Diagnosis Primary hypertension- Primary Unspecified essential hypertension documented [facility] SystemHistory general Narrative - Reported* Type Description Date Medical History PROSTATE CANCER Medical History HIGH BLOOD PRESSURE Surgical History BOWEL RESECTION FOR UNCLEAR REASONS - POSSIBLE OBSTRUCTION 2012 Surgical History PROSTATE CANCER 2021 Hospitalization History SEE ABOVE [facility] Other Hospital course Narrative No data available for this section [facility] Hospital Discharge instructions No data available for this section [facility] Hospital Discharge instructions Additional Instructions DISCHARGE [...] problems. -Follow up with PCP. -Office number [phone].[facility] Work Phone: InstructionsNot on filedocumented in [...] available for this section [facility] Summary Purpose Family History Relationship Condition Age at Onset Recorded Date/T vicky father Unknown sister Hypertension Unknown Diabetes mellitus Unknown Advance Directives Date Activated Date Inactivated Comments 02/27/2025 8:57 PM 03/07/2025 6:50 PM Date Activated Date Inactivated Comments 02/24/2025 10:21 PM 02/27/2025 9:37 AM Date Activated Date Inactivated Comments 01/05/2025 11:48 PM 01/08/2025 2:14 PM Date Activated Date Inactivated Comments 06/22/2022 12:10 AM 06/23/2022 6:44 PM Advance Directive Response Recorded Date/ Time Advance [...] 6:44 PM Date Activated Date Inactivated Comments 02/27/2025 8:57 PM Date Activated Date Inactivated Comments 02/27/2025 8:57 PM 03/07/2025 6:50 PM Date Activated Date Inactivated Comments 02/24/2025 10:21 PM 02/27/2025 9:37 AM Date Activated Date Inactivated Comments 01/05/2025 11:48 [...] Date Unknown December 11, 2024 1 1:47am Chief Complaint Admit Date Unknown December 11, 2024 1 1:47am Unknown February 22, 2025 12: 43pm Additional Source Comments Source Comments (unrecognize d section and content) In the event this informatio n is protected by the Federal Confidentiality of Alcohol and Drug Abuse Patient Records regulations: The Federal rules restrict any use of the information to criminally investigate or prosecute any alcohol or drug abuse patient.[facility] the event this information is protected by the Federal Confidentiality of Alcohol and Drug Abuse Patient Records regulations: The Federal rules restrict any use of the information to criminally investigate or prosecute any alcohol or drug abuse patient.[facility] the event this information is protected by the Federal Confidentiality of Alcohol and Drug Abuse Patient Records regulations: The Federal rules restrict any use of the information to criminally investigate or prosecute any alcohol or drug abuse patient.[facility] the event this information is protected by the Federal Confidentiality of Alcohol and Drug Abuse Patient Records regulations: The Federal rules restrict any use of the information to criminally investigate or prosecute any alcohol or drug abuse patient.[facility] the event this information is protected by the Federal Confidentiality of Alcohol and Drug Abuse Patient Records regulations: The Federal rules restrict any use of the information to criminally investigate or prosecute any alcohol or drug abuse patient.[facility] Hospital[facility] the event this information is protected by the Federal Confidentiality of Alcohol and Drug Abuse Patient Records regulations: The Federal rules restrict any use of the information to criminally investigate or prosecute any alcohol or drug abuse patient.[facility] the event this information is protected by the Federal Confidentiality of Alcohol and Drug Abuse Patient Records regulations: The Federal rules restrict any use of the information to criminally investigate or prosecute any alcohol or drug abuse patient.[facility] the event this information is protected by the Federal Confidentiality of Alcohol and Drug Abuse Patient Records regulations: The Federal rules restrict any use of the information to criminally investigate or prosecute any alcohol or drug abuse patient.[facility] the event this information is protected by the Federal Confidentiality of Alcohol and Drug Abuse Patient Records regulations: The Federal rules restrict any use of the information to criminally investigate or prosecute any alcohol or drug abuse patient.[facility] Hospital[facility] the event this information is protected by the Federal Confidentiality of Alcohol and Drug Abuse Patient Records regulations: The Federal rules restrict any use of the information to criminally investigate or prosecute any alcohol or drug abuse patient.[facility] Hospital[facility] the event this information is protected by the Federal Confidentiality of Alcohol and Drug Abuse Patient Records regulations: The Federal rules restrict any use of the information to criminally investigate or prosecute any alcohol or drug abuse patient.[facility] Hospital[facility] the event this information is protected by the Federal Confidentiality of Alcohol and Drug Abuse Patient Records regulations: The Federal rules restrict any use of the information to criminally investigate or prosecute any alcohol or drug abuse patient.[facility] Hospital[facility] the event this information is protected by the Federal Confidentiality of Alcohol and Drug Abuse Patient Records regulations: The Federal rules restrict any use of the information to criminally investigate or prosecute any alcohol or drug abuse patient.[facility] Hospital[facility] the event this information is protected by the Federal Confidentiality of Alcohol and Drug Abuse Patient Records regulations: The Federal rules restrict any use of the information to criminally investigate or prosecute any alcohol or drug abuse patient.[facility] HospitalIn the event this information is protected by the Federal Confidentiality of Alcohol and Drug Abuse Patient Records regulations: The Federal rules restrict any use of the information to criminally investigate or prosecute any alcohol or drug abuse patient.[facility] HospitalIn the event this information is protected by the Federal Confidentiality of Alcohol and Drug Abuse Patient Records regulations: The Federal rules restrict any use of the information to criminally investigate or prosecute any alcohol or drug abuse patient.[facility] Hospital[facility] the event this information is protected by the Federal Confidentiality of Alcohol and Drug Abuse Patient Records regulations: The Federal rules restrict any use of the information to criminally investigate or prosecute any alcohol or drug abuse patient.[facility] HospitalIn the event this information is protected by the Federal Confidentiality of Alcohol and Drug Abuse Patient Records regulations: The Federal rules restrict any use of the information to criminally investigate or prosecute any alcohol or drug abuse patient.[facility] HospitalIn the event this information is protected by the Federal Confidentiality of Alcohol and Drug Abuse Patient Records regulations: The Federal rules restrict any use of the information to criminally investigate or prosecute any alcohol or drug abuse patient.[facility] HospitalIn the event this information is protected by the Federal Confidentiality of Alcohol and Drug Abuse Patient Records regulations: The Federal rules restrict any use of the information to criminally investigate or prosecute any alcohol or drug abuse patient.[facility] HospitalIn the event this information is protected by the Federal Confidentiality of Alcohol and Drug Abuse Patient Records regulations: The Federal rules restrict any use of the information to criminally investigate or prosecute any alcohol or drug abuse patient.[facility] Hospital[facility] the event this information is protected by the Federal Confidentiality of Alcohol and Drug Abuse Patient Records regulations: The Federal rules restrict any use of the information to criminally investigate or prosecute any alcohol or drug abuse patient.[facility] HospitalIn the event this information is protected by the Federal Confidentiality of Alcohol and Drug Abuse Patient Records regulations: The Federal rules restrict any use of the information to criminally investigate or prosecute any alcohol or drug abuse patient.[facility] Hospital[facility] the event this information is protected by the Federal Confidentiality of Alcohol and Drug Abuse Patient Records regulations: The Federal rules restrict any use of the information to criminally investigate or prosecute any alcohol or drug abuse patient.[facility] HospitalIn the event this information is protected by the Federal Confidentiality of Alcohol and Drug Abuse Patient Records regulations: The Federal rules restrict any use of the information to criminally investigate or prosecute any alcohol or drug abuse patient.[facility] Hospital[facility] the event this information is protected by the Federal Confidentiality of Alcohol and Drug Abuse Patient Records regulations: The Federal rules restrict any use of the information to criminally investigate or prosecute any alcohol or drug abuse patient.[facility] HospitalIn the event this information is protected by the Federal Confidentiality of Alcohol and Drug Abuse Patient Records regulations: The Federal rules restrict any use of the information to criminally investigate or prosecute any alcohol or drug abuse patient.[facility] HospitalIn the event this information is protected by the Federal Confidentiality of Alcohol and Drug Abuse Patient Records regulations: The Federal rules restrict any use of the information to criminally investigate or prosecute any alcohol or drug abuse patient.[facility] HospitalIn the event this information is protected by the Federal Confidentiality of Alcohol and Drug Abuse Patient Records regulations: The Federal rules restrict any use of the information to criminally investigate or prosecute any alcohol or drug abuse patient.[facility] HospitalIn the event this information is protected by the Federal Confidentiality of Alcohol and Drug Abuse Patient Records regulations: The Federal rules restrict any use of the information to criminally investigate or prosecute any alcohol or drug abuse patient.[facility]In the event this information is protected by the Federal Confidentiality of Alcohol and Drug Abuse Patient Records regulations: The Federal rules restrict any use of the information to criminally investigate or prosecute any alcohol or drug abuse patient.[facility] HospitalIn the event this information is protected by the Federal Confidentiality of Alcohol and Drug Abuse Patient Records regulations: The Federal rules restrict any use of the information to criminally investigate or prosecute any alcohol or drug abuse patient.[facility]In the event this information is protected by the Federal Confidentiality of Alcohol and Drug Abuse Patient Records regulations: The Federal rules restrict any use of the information to criminally investigate or prosecute any alcohol or drug abuse patient.[facility] HospitalIn the event this information is protected by the Federal Confidentiality of Alcohol and Drug Abuse Patient Records regulations: The Federal rules restrict any use of the information to criminally investigate or prosecute any alcohol or drug abuse patient.[facility] Reason for Visit (unrecogniz ed section and content) Reason Comments Patient Education Reason Comments Prostate Cancer Specialty Diagnoses / Procedures Referred By Contac t Referred To Contact Radiation Oncology / RADIATION ONCOLOGY Diagnoses Dr. Lambert referral DX: Prostate Ca Procedures NEW PATIENT RAD ONC Leila Lambert MD [address] [place] [address] Jhony Lux MD [address] [place] [address] [place] [address] Referral ID Status Reason Start Date Expiration Date Visits Re quested Visits Authorized [id number] Closed 03/11/2022 11/28/2022 1 1 Reason Comments Orders Reason Comments Radiotherapy On-treatment Visit Reason Comments Diarrhea Reason Comments Urinalysis Reason Comments Volume Study Specialty Diagnoses / Procedures Referred By Contac t Referred To Contact Radiation Oncology / RADIATION ONCOLOGY Diagnoses Malignant neoplasm of prostate SIM/IRA/Pelvis Procedures SIMULATION MOLLY IMRT 25 fractions Jhony Lux MD [facility] [place] [address] Jhony Lux MD [facility] [place] [address] Referral ID Status Reason Start Date Expiration Date V isits Requested Visits Authorized [id number] Authorized 03/16/2022 11/28/2022 99 99 Reason Comments Nutrition Telephone Specialty Diagnoses / Procedures Referred By Contac t Referred To Contact Radiation Oncology / RADIATION ONCOLOGY Diagnoses Malignant neoplasm of prostate 6 Month Follow Up Procedures OFFICE/OUTPATIENT ESTABLISHED HIGH MDM 40-54 MIN OFFICE/OUTPATIENT ESTABLISHED MOD MDM 30-39 MIN OFFICE/OUTPATIENT ESTABLISHED LOW MDM 20-29 MIN OFFICE/OUTPATIENT ESTABLISHED SF MDM 10-19 MIN EST PATIENT Adrian Castano CNP [address] [place] [address] Jhony Lux MD [address] [place] [address] [address] [place] [id number] Referral ID Status Reason Start Date Expiration Date Visits Re quested Visits Authorized [id number] Closed 06/21/2023 11/28/2023 1 1 Specialty Diagnoses / Procedures Referred By Contac t Referred To Contact Radiation Oncology / RADIATION ONCOLOGY Diagnoses followup Procedures OFFICE/OUTPATIENT ESTABLISHED HIGH MDM 40 MIN EST PATIENT Adrian Castano CNP [address] [place] [address] Jhony Lux MD [address] [place] [address] [place] [address] Referral ID Status Reason Start Date Expiration Date Visits Re quested Visits Authorized [id number] Closed 12/16/2023 11/28/2024 1 1 Referral ID Status Reason Start Date Expiration Date Visits Re quested Visits Authorized [id number] Closed 03/16/2022 11/28/2022 99 99 Reason Onset [...] MIN EST PATIENT Jhony Lux MD [address] [place] [address] Phone: tel: [place]: [place] [address] [place] [address] Phone: tel: Referral ID Status Reason Start Date Expiration Date V isits Requested Visits Authorized [id number] Authorized 12/28/2024 11/28/2025 99 99 Reason Onset Date Comments Acute PA 03/03/2025 Reason Onset Date Comments Hypotension 03/04/2025 Contract: [id number] [facility] re Low blood pressure; Rm [id number] Reason Onset Date Comments orders 03/05/2025 Contract: [id number] [facility] [place] re orders Reason Comments Follow-up hosp f/u [facility]- discha rged 03/07- saw LLD in ED- labs 03/08- vas cardotid 03/01- nuc stress 01/27- sched w pt Reason Onset Date Comments Med Refill 03/22/2025 Reason Comments Nm Pet Request Reason Onset Date Comments Med Refill 04/10/2025 Reason Onset Date Comments Chest Pain 04/10/2025 Reason Comments Radiology NM Reason Onset Date Comments Med Refill 06/20/2025 Reason Comments Follow-up EST PT 3 MS F/U L/S MBO [facility] ER CHEST PAIN Care Teams (unrecognized sec tion and content) Team Status: Active Member Role Status Dates [facility] Active Team Status: Inactive Member Role Status Dates [facility] Primary Care Provider Active Start: June 22, 2024 End: June 22, 2024 Fred Kirk MD Attending Provider Active S tart: June 22, 2024 End: June 22, 2024 Team Status: Active Member Role Status Dates [facility] Active Start: January 05, 2024 Fred Kirk MD Attending Provider, Other Provider Active Start: January 05, 2024 Team Status: Inactive Member Role Status Dates [facility] Primary Care Provider Active Start: March 01, 2024 End: March 01, 2024 Fred Kirk MD Attending Provider Active S tart: March 01, 2024 End: March 01, 2024 Birth Certificate Clerk Relationship Specialty Start Date End Date Adrian Castano, LINING FELLER [address] [facility] [address] PCP - General Internal Medicine 03/03/22 Leila Lambert MD [address] [place], [place] [id number] Referring Urology 03/03/22 Birth Certificate Clerk Relationship Specialty Start Date End Date Adrian Castano, LINING FELLER [address] [facility] [place] [address] PCP - General Internal Medicine 03/03/22 Leila Lambert MD [address] [place] [address] Referring Urology 03/03/22 Birth Certificate Clerk Relationship Specialty Start Date End Date Adrian Castano CNP [address] [place] [address] PCP - General Internal Medicine 03/03/22 Leila Lambert MD [address] [place] [address] Referring Urology 03/03/22 Birth Certificate Clerk Relationship Specialty Start Date End Date Adrian Castano, SARAH [address] [place] [address] PCP - General Internal Medicine 03/03/22 Leila Lambert MD [address] [place] [address] Referring Urology 03/03/22 Birth Certificate Clerk Relationship Specialty Start Date End Date Adrian Castano CNP [address] [place] [address] PCP - General Internal Medicine 03/03/22 Leila Lambert MD [address] [place] [address] Referring Urology 03/03/22 Birth Certificate Clerk Relationship Specialty Start Date End Date Adrian Castano CNP [address] [place] [address] PCP - General Internal Medicine 03/03/22 Leila Lambert MD [address] [place] [address] Referring Urology 03/03/22 Birth Certificate Clerk Relationship Specialty Start Date End Date Adrian Castano CNP [address] [place] [address] PCP - General Internal Medicine 03/03/22 Leila Lambert MD [address] [place] [address] Referring Urology 03/03/22 Birth Certificate Clerk Relationship Specialty Start Date End Date Adrian Castano CNP [address] [place] [address] PCP - General Internal Medicine 03/03/22 Leila Lambert MD [address] [place] [address] Referring Urology 03/03/22 Birth Certificate Clerk Relationship Specialty Start Date End Date Adrian Castano CNP [address] [place] [address] PCP - General Internal Medicine 03/03/22 Leila Lambert MD [address] [place] [address] Referring Urology 03/03/22 Birth Certificate Clerk Relationship Specialty Start Date End Date Adrian Castano CNP [address] [place] [address] PCP - General Internal Medicine 03/03/22 Leila Lambert MD [address] [place] [address] Referring Urology 03/03/22 Birth Certificate Clerk Relationship Specialty Start Date End Date Adrian Castano CNP [address] [place] [address] PCP - General Internal Medicine 03/03/22 Leila Lambert MD [address] [place] [address] Referring Urology 03/03/22 Birth Certificate Clerk Relationship Specialty Start Date End Date Adrian Castano CNP [address] [place] [address] PCP - General Internal Medicine 03/03/22 Leila Lambert MD [address] [place] [address] Referring Urology 03/03/22 Birth Certificate Clerk Relationship Specialty Start Date End Date Adrian Castano CNP [address] [place] [address] PCP - General Internal Medicine 03/03/22 Leila Lambert MD [address] [place] [address] Referring Urology 03/03/22 Birth Certificate Clerk Relationship Specialty Start Date End Date Adrian Castano CNP [address] [place] [address] PCP - General Internal Medicine 03/03/22 Leila Lambert MD [address] [place] [address] Referring Urology 03/03/22 Birth Certificate Clerk Relationship Specialty Start Date End Date Adrian Castano, LINING FELLER [address] [place] [address] PCP - General Internal Medicine 03/03/22 Leila Lambert MD [address] [place] [address] Referring Urology 03/03/22 Birth Certificate Clerk Relationship Specialty Start Date End Date Adrian Castano, LINING FELLER [address] [place] [address] PCP - General Internal Medicine 03/03/22 Leila Lambert MD [address] [place] [address] Referring Urology 03/03/22 Birth Certificate Clerk Relationship Specialty Start Date End Date Adrian Castano, LINING FELLER [address] [place] [address] PCP - General Internal Medicine 03/03/22 Leila Lambert MD [address] [place] [address] Referring Urology 03/03/22 Birth Certificate Clerk Relationship Specialty Start Date End Date Adrian Castano, LINING FELLER [address] [place] [address] PCP - General Internal Medicine 01/05/23 Leila Lambert MD [address] [place] [address] Referring Urology 03/03/[address] [address] 01/05/23 Birth Certificate Clerk Relationship Specialty Start Date End Date Adrian Castano CNP [address] [place] [address] PCP - General Internal Medicine 01/05/23 Leila Lambert MD [address] [place] [address] Referring Urology 03/03/[address] [address] 01/05/23 Team Status: Inactive Member Role Status Dates [facility] Primary Care Provider Active Fred Kirk MD Attending Provider Active Team Status: Inactive Member Role Status Dates Fred Kirk MD Attending Provider Active S tart: November 30, 2023 End: November 30, 2023 Team Status: Inactive Member Role Status Dates [facility] Primary Care Provider Active Start: November 30, 2023 End: November 30, 2023 Fred Kirk MD Attending Provider Active S tart: November 30, 2023 End: November 30, 2023 Birth Certificate Clerk Relationship Specialty Start Date End Date Adrian Castano CNP [address] [place] [address] PCP - General Internal Medicine 01/05/23 Leila Lambert MD [address] [place] [address] Referring Urology 03/03/[address] [address] 01/05/23 Birth Certificate Clerk Relationship Specialty Start Date End Date Adrian Castano CNP [address] [place] [address] PCP - General Internal Medicine 03/03/22 01/04/23 Leila Lambert MD [address] [place] [address] Referring Urology 03/03/22 Birth Certificate Clerk Relationship Specialty Start Date End Date Hanselmichael SARAH Asencio [address] [place] [address] PCP - General Internal Medicine 03/03/22 01/04/23 Leila Lambert MD [address] [place] [address] Referring Urology 03/03/22 Birth Certificate Clerk Relationship Specialty Start Date End Date Yolette Warren MD [address] [place] [address] PCP - General Pediatrics 05/16/24 Birth Certificate Clerk Relationship Specialty Start Date End Date Yolette Warren MD [address] [place] [address] PCP - General Pediatrics 05/16/24 Birth Certificate Clerk Relationship Specialty Start Date End Date Yolette Warren MD [address] [place] [address] PCP - General Pediatrics 05/16/24 Birth Certificate Clerk Relationship Specialty Start Date End Date Yolette Warren MD [address] [place] [address] PCP - General Pediatrics 05/16/24 Birth Certificate Clerk Relationship Specialty Start Date End Date Yolette Warren MD [address] [place] [address] PCP - General Pediatrics 05/16/24 Birth Certificate Clerk Relationship Specialty Start Date End Date Yolette Warren MD [address] [place] [address] PCP - General Pediatrics 05/16/24 Team Status: Inactive Member Role Status Johnny Dietz DPM [place] Attending Provider Active Start: December 11, 2024 End: December 11, 2024 Birth Certificate Clerk Relationship Specialty Start Date End Date Services, [facility] [address] [place] PCP - General Family Medicine 06/08/21 Birth Certificate Clerk Relationship Specialty Start Date End Date Services, [facility] [address] [place] PCP - General Family Medicine 06/08/21 Birth Certificate Clerk Relationship Specialty Start Date End Date Services, [facility] [address] [place] PCP - General Family Medicine 06/08/21 Birth Certificate Clerk Relationship Specialty Start Date End Date Services, [facility] [address] [place] PCP - General Family Medicine 01/05/25 Team Status: Active Member Role Status Johnny Agustin DO Attending Provider Active Sta rt: December 06, 2024 Team Status: Inactive Member Role Status Johnny Lambert MD Attending Provider Active St art: February 22, 2025 End: February 22, 2025 Birth Certificate Clerk Relationship Specialty Start Date End Date Services, [facility] [address] [place] PCP - General Family Medicine 01/05/25 Birth Certificate Clerk Relationship Specialty Start Date End Date Services, [facility] [address] [place] PCP - General Family Medicine 01/05/25 Birth Certificate Clerk Relationship Specialty Start Date End Date Services, [facility] [address] [place] PCP - General Family Medicine 01/05/25 Birth Certificate Clerk Relationship Specialty Start Date End Date Services, [facility] [address] [place] PCP - General Family Medicine 01/05/25 Birth Certificate Clerk Relationship Specialty Start Date End Date Services, [facility] [address] [place] PCP - General Family Medicine 01/05/25 Birth Certificate Clerk Relationship Specialty Start Date End Date Adrian Castano CNP [address] [place] [address] PCP - General Internal Medicine 01/05/23 Leila Lambert MD Referring Urology 03/03/22 [facility] [address] [place], [place] [address] 01/05/23 Birth Certificate Clerk Relationship Specialty Start Date End Date Services, [facility] [address] [place] PCP - General Family Medicine 04/10/25 Birth Certificate Clerk Relationship Specialty Start Date End Date Services, [facility] [address] [place] PCP - General Family Medicine 04/10/25 Birth Certificate Clerk Relationship Specialty Start Date End Date Services, [facility] [address] [place] PCP - General Family Medicine 04/10/25 Birth Certificate Clerk Relationship Specialty Start Date End Date Services, [facility] [address] [place] PCP - General Family Medicine 04/10/25 (unrecognized sect ion and content) No Status Records FoundNo Status Records FoundNo Status Records FoundNo Status Records FoundNo Status Records FoundNo Status Records FoundNo Status Records FoundNo Status Records FoundNo Status Records FoundNo Status Records FoundNo Status Records Found INFORMATION SOURCE (unrecogn ized section and content) DATE CREATED AUTHOR 02/06/2023 [facility] DATE CREATED AUTHOR AUTHOR'S ORGANIZ ATION 02/21/2023 [facility] DATE CREATED AUTHOR AUTHOR'S ORGANIZ ATION 10/11/2024 [facility] EPIC DATE CREATED AUTHOR AUTHOR'S ORGANIZ ATION 10/19/2024 [facility] DATE CREATED AUTHOR AUTHOR'S ORGANIZ ATION 01/16/2025 [facility] DATE CREATED AUTHOR AUTHOR'S ORGANIZ ATION 02/28/2025 [facility] DATE CREATED AUTHOR AUTHOR'S ORGANIZ ATION 03/09/2025 [facility] DATE CREATED AUTHOR AUTHOR'S ORGANIZ ATION 03/17/2025 [facility] DATE CREATED AUTHOR AUTHOR'S ORGANIZ ATION 04/12/2025 [facility] DATE CREATED AUTHOR AUTHOR'S ORGANIZ ATION 07/21/2025 [facility] DATE CREATED AUTHOR AUTHOR'S ORGANIZ ATION 09/14/2025 [facility] Goals (unrecognized section and content) Goals [...] BE BASED ON THE PRIMARY CLINICAL RECORDS. [employer] provides no warranty or guarantee of the accuracy or completeness of information in this document.
== END 2025-09-14 12:31 | disposition home or self-care (01) ==
LOC: MRI 12:30
PROVIDERS: Visit Provider Podiatrist Foot & Ankle Surgery
DX: M19.072 Primary osteoarthritis, left ankle and foot (principal); M76.812 Anterior tibial syndrome, left leg; M94.272 Chondromalacia, left ankle and joints of left foot
CPT/HCPCS: 73721

== ENCOUNTER 2025-10-31 08:51 | Outpatient (OUT) | payer MEDICARE, MEDICAID, SELFPAY ==
--- OUTSIDE RECORDS SUMMARY | 2025-10-31 08:54 | XMS_ITS | Clinical Summary ---
Author Organization [place] tem Address [id number] [address] [place] [address] Care Team Providers Care Masseur/Masseuse Name Role Phone Services, [facility] Primary Care Provider Allergies Active AllergyReactionsCriticalityNoted DateCommentsCodeine-Guaifenesin 06/19/2022 Other reaction(s): COUGH / SNEEZING Latex10/03/2025 Medications MedicationSigDispense QuantityRefillsLast FilledStart DateEnd DateStatus MYRBETRIQ 50 mg tablet extended release 24 hr Take 1 tablet (50 mg total) by mouth in the morning.4Active atorvastatin (LIPITOR) 40 mg tablet Indications:S/P CABG x 2Take 1 tablet (40 mg total) by mouth nightly. 90 tablet 5Active bicalutamide (CASODEX) 50 mg chemo tablet Take 1 tablet by mouth /28/2025Active famotidine (PEPCID) 20 mg tablet Take 1 tablet (20 mg total) by mouth in the morning.Active aspirin 81 mg Indications:S/P CABG x 2Take 1 tablet (81 mg total) by mouth in the morning. 30 tablet 5Active fluticasone propionate (FLONASE) 50 mcg/actuation nasal spray Administer 2 sprays into each nostril in the morning. 11.1 mL 1215Active fexofenadine (IRIS) 180 mg tablet Take 1 tablet (180 mg total) by mouth in the morning. 30 tablet 5Active meclizine (ANTIVERT) 25 mg tablet Take 1 tablet (25 mg total) by mouth 3 (three) times a day as needed for dizziness. 30 tablet 5Active cholecalciferol (VITAMIN D3) 50,000 units capsule Take 1 capsule (50,000 Units total) by mouth once a week. 4 capsule 5Active cholecalciferol (VITAMIN D3) 1,000 units tablet Take 1 tablet (1,000 Units total) by mouth in the morning. 30 tablet 5Active cyanocobalamin (VITAMIN B12) 1,000 mcg tablet, sublingual Place 1 tablet (1,000 mcg total) under the tongue in the morning. 30 tablet 5Active tamsulosin (FLOMAX) 0.4 mg capsule Take 1 capsule (0.4 mg total) by mouth nightly.5Active tamsulosin (FLOMAX) 0.4 mg capsule Take 1 capsule (0.4 mg total) by mouth in the morning and 1 capsule (0.4 mg total) before bedtime.10/05/2025Discontinued amiodarone (PACERONE) 200 mg tablet Indications:Postoperative atrial fibrillation (CMS-HCC)Take 1 tablet (200 mg total) by mouth in the morning. 90 tablet Discontinued(Therapy completed) metoprolol tartrate (LOPRESSOR) 25 mg tablet Take 1 tablet (25 mg total) by mouth in the morning and 1 tablet (25 mg total) before bedtime.10/05/2025Discontinued(Stop Taking at Discharge) Active Problems ProblemNoted DateDiagnosed DateChest pain5Chest pain, unspecified type 5BPH (benign prostatic hyperplasia)01/06/2025History of smoking 01/06/2025Ischemic okokuxu01/07/2025Acquired hammer toe of left foot06/22/2022 Kguudwnie57/25/2022Benign prostatic hyperplasia with urinary obstruction 2Chronic pain2Current every day oxnplx0106/22/2022ifficulty qlkcarv2006/22/20222899Whzkxdcuvyik38/25/2022isorder of male genital rjizht3706/22/2022 Nszbgqhhzfkmpwrrxcmh79/25/2022rimary rjzasqavuyyi61/25/2022AD (peripheral artery disease)06/22/2022denocarcinoma of efknaedr33/25/8584Glkltpxss72/25/2022 Kydkapo8906/21/2022MI 40.0-44.9, adult08/30/2019 Encounters DateTypeDepartmentCare CuofGdqbuetaubh22/10/2025 9:00 AM EST - 10/08/2025 11:59 PM ESTHospital Encounter [facility] [address] [place] [phone] Michelle Bustillo APRN-SARAH Dizziness; Cerebrovascular accident (CVA), unspecified mechanism ([facility]) Discharge Disposition: Home10/08/20258558Imftly63/10/2025Telephone [facility] Neurology, A Department of [address] [place] [address] Carole Chacon, BHAVESH Care Yfnzbqsrgg41/07/2025Telephone [facility] Neurology, A Department of [place] [address] [facility] [address] [place] [address] Amairani Guerra Wzvujtcfbnr33/07/2025Telephone [facility] Neurology, A Department of [address] [place] [address] Dayna Gross MD 10/03/2025 7:51 AM EST - 10/05/2025 2:55 PM ESTHospital Encounter [facility] - Acute Care [address] [place] [phone] Sofiya Ayon MD Asif, Muhamid M, MD Dizziness (Primary Dx); Cerebrovascular accident (CVA), unspecified mechanism ([facility]) Discharge Disposition: Home Oykliz9410/03/2025Travelfrom Last 3 Months Immunizations ImmunizationAdministration DatesNext DueInfluenza High Dose Preservative Free IM 10/04/2024Influenza, Injectable, quadrivalent (PF)10/02/2019,09/26/2018 Influenza, Oncffxkymxa64/20/2017Pneumococcal Conjugate 20-oahgyw644RSV, bivalent, protein subunit RSVpreF, diluent reconstituted, 0.5 mL, PF10/04/2024 Family History Medical HistoryRelationNameCommentsTall statureFatherNo Known ProblemsMother Kidney diseaseSisterColon cancerNeg HxRelationNameStatusCommentsFatherDeceased MotherAliveSisterDeceased Social History Tobacco UseTypesPacks/DayYears UsedDateSmoking Tobacco: FormerCigarettes1.550.9 Started: 1974Passive Smoke Exposure: PastSmokeless Tobacco: FormerChewQuit: 2020 Tobacco Cessation:Counseling Given: No Comments:Quit 4 years ago. Alcohol UseStandard Drinks/WeekCommentsNot Currently0 (1 standard drink = 0.6 oz pure alcohol)[facility] UtilitiesAnswerDate RecordedIn the past 12 months has the [employer] gas, oil, or water [employer] threatened to shut off services in your home?No02/28/2025Social Connection and Isolation PanelAnswerDate RecordedIn a typical week, how many times do you talk on the phone with family, friends, or neighbors?Three times a week02/24/2025How often do you get together with friends or relatives?Three times a week02/24/2025How often do you attend roman catholic or mosque services?Never02/24/2025Do you belong to any clubs or organizations such as roman catholic groups, unions, fraternal or athletic groups, or school groups?No 02/24/2025How often do you attend meetings of the clubs or organizations you belong to?Never02/24/2025re you , , , , never , or living with a partner?Never xztiwhq0802/24/2025UDIT-CAnswerDate RecordedQ1: How often do you have a drink containing alcohol?Never02/28/2025Q2: How many drinks containing alcohol do you have on a typical day when you are drinking?Patient does not drink02/28/2025Q3: How often do you have six or more drinks on one occasion?Never02/28/2025Overall Financial Resource Strain (CARDIA) AnswerDate RecordedHow hard is it for you to pay for the very basics like food, housing, medical care, and heating?Not very hard02/24/2025PHQ-2AnswerDate RecordedTotal Eaaqj760Finbrigham city [facility] hospital [place] of Occupational Health - Occupational Stress QuestionnaireAnswerDate RecordedDo you feel stress - tense, restless, nervous, or anxious, or unable to sleep at night because yourmind is troubled all the time - these days?Not at all02/24/2025Exercise Vital SignAnswer Date RecordedOn average, how many days per week do you engage in moderate to strenuous exercise (like a brisk walk)?0 days02/24/2025On average, how many minutes do you engage in exercise at this level?0 min02/24/2025PRAPARE - TransportationAnswerDate RecordedIn the past 12 months, has lack of transportation kept you from medical appointments or from getting medications?No 02/28/2025In the past 12 months, has lack of transportation kept you from meetings, work, or from getting things needed for daily living?No02/28/2025 Housing InstabilityAnswerDate RecordedAre you worried or concerned that in the next two months you may not have stable housing that you own, rent or stay in as a part of a household?No02/28/2025hildcareAnswerDate RecordedDo problems getting child guidance counselor make it difficult for you to work or study?No02/24/2025 EmploymentAnswerDate RecordedDo you need help finding a local career center and/or a training program?No02/24/2025Hunger ScreeningAnswerDate RecordedWithin the past 12 months we worried whether our food would run out before we got money to buy more.Never True10/04/2025Within the past 12 months the food we bought just didn't last and we didn't have money to get more.Never True10/04/2025 Purpose - LifeAnswerDate RecordedI have a purpose and direction in my life.Agree 02/24/2025Sex and Gender InformationValueDate RecordedSex Assigned at BirthNot on fileLegal RdmTqgo46/04/2015 11:30 AM EDTGender IdentityNot on fileSexual OrientationNot on file Last Filed Vital Signs Vital SignReadingTime TakenCommentsBlood Jwoioozt923/8410/05/2025 11:45 AM EST Saisk116710/05/2025 11:45 AM ZCPRjoozmcgyrv81.5 ??C (97.7 ??F)10/05/2025 11:40 AM ESTRespiratory Uzfc953112/05/2024 11:40 AM ESTOxygen Bdjervhcwi47%10/05/2025 11:45 AM ESTInhaled Oxygen Concentration--Johsas715.2 kg (247 lb 6.4 oz)10/05/2025 5:32 AM QRCAluwmu041 cm (5' 3 )10/03/2025 2:08 PM ESTBody Mass Index43.82 10/03/2025 2:08 PM EST Plan of Treatment DateTypeDepartmentCare Team (Latest Contact Info)Fowlpkdruvi05/15/2025 1:30 PM ESTOffice Visit [facility] Department of [place] [address] [place] [phone] Akiko Santacruz PA-C [address] [place] [address] [address] [place] [address] 01/29/2026 11:00 AM ESTOffice Visit [facility] Neu[facility] [place] [address] Dayna Gross MD [address] [place] [address] [address] [place] [address] Health MaintenanceDue DateLast DoneCommentsAdult BMI Follow Up Plan1977 DTaP,Tdap and Td Vaccines (1 - Tdap)1978Zoster (Shingles) Vaccine (1 of 2) 1978Fall Risk Pfhoqekpn28/26/2024OVID-19 Vaccine (4 - season) /04/2024, 03/21/2021, 02/21/2021Influenza Djgwnkw6507/30/2025 10/04/2024, 10/02/2019, 09/26/2018, Additional history existsDepression Hvtfkxgnb23Statin Use: Xtxayxzlhrggqf18/25/202604/ Tobacco Pgwmdslne66/dult BMI Renyzalar64 Mvawjmnutri83, 09/11/2024, 08/05/2017RSV ( or age 60+ yrs)Ddzcixwtx88/06/2024bdominal Aortic Aneurysm (AAA) ScreenCompleted 10/05/2025, 10/06/2018 Goals GoalPatient Goal TypeAssociated ProblemsRecent ProgressPatient-Stated?Author Home with self care Sary Nielsen LSW Note: Evaluation of progress towards goal: Patient will return home with self care Medical Devices Not on file Procedures Procedure NamePriorityDate/TimeAssociated DiagnosisCommentsUS RETROPERITONEAL PTXOROTSivfule90/07/2025 12:06 PM EST CBC WITH AUTO UHMZUJKKJSAZWyfmnma97/07/2025 4:37 AM EST ZHKSNVNIVKhqskdc85/07/2025 4:37 AM EST COMPREHENSIVE METABOLIC GXLKWAcqndfz23/07/2025 4:37 AM EST EXTRA TUBES SST APFBwsjnkz06/07/2025 4:36 AM EST EXTRA TUBES BLUE WWXXfvfooi36/07/2025 4:36 AM EST EXTRA GZABDAkyqyon57/07/2025 4:36 AM EST RESP PATHOGENS PANEL/KULT-BZG-0Nqvgxct08/06/2025 5:53 PM EST ECHO COMPLETE W SUIIPZBAMfvaqpm27/06/2025 1:30 PM EST EXTRA TUBES BLUE EFCUblapoq69/06/2025 5:54 AM EST EXTRA JUAQVBslmadj65/06/2025 5:54 AM EST CBC WITH AUTO OHHARIXTXNTKVgfmhoz11/06/2025 5:54 AM EST FZTNSWARRNzcieih60/06/2025 5:54 AM EST COMPREHENSIVE METABOLIC DTBCSUwtiill35/06/2025 5:54 AM EST XR CHEST 1 AREsjanxg54/05/2025 6:44 PM EST MR BRAIN WO KULJVHGX68/05/2025 1:38 PM EST TROP I, HIGH SENSITIVITY 1 KRHHQIUZ33/05/2025 9:09 AM EST BEDSIDE LPERJWJPwhjasv65/05/2025 8:12 AM EST ECG 12-HDOEMOUJ48/05/2025 8:10 AM ESTCT CTA YITFMWYYTCE17/05/2025 8:09 AM EST HEMOGLOBIN V6CYub-Oz14/05/2025 8:06 AM EST LIPID PROFILEAdd-On10/03/2025 8:06 AM EST VITAMIN D 25 HYDROXYAdd-On10/03/2025 8:06 AM EST VITAMIN U14Yeu-Au91/05/2025 8:06 AM EST THYROID PROFILE INCLUDES TSH PM2Wmu-Zz09/05/2025 8:06 AM EST TROPONIN I, HIGH SENSITIVITY 0 NUVAJBYY18/05/2025 8:06 AM EST LIVER AXVGAFDUG44/05/2025 8:06 AM EST CBC WITH AUTO XHRICIOZKTSJPPFH69/05/2025 8:06 AM EST ZAVVZTAZ15/05/2025 8:06 AM EST PROTIME & BDNJUTW4810/03/2025 8:06 AM EST BASIC METABOLIC JNGXPYCCC40/05/2025 8:06 AM EST TROPONIN I, HIGH SENSITIVITY 0 VXXUJWXG97/05/2025 8:[address] CTA NCFWVPKM32/05/2025 8:[address] BRAIN WO CONT STROKE GJLESXCCD91/05/2025 7:50 AM EST PROVATION BPAROFKPZVDDeqdicj06/14/2024 9:47 AM EDT from Last 3 Months or Most Recently Relevant to Health Maintenance Results * Ultrasound retroperitoneal limited (10/05/2025 12:06 PM EST)Anatomical Region LateralityModalityBodyUltrasoundSpecimen (Source)Anatomical Location / LateralityCollection Method / VolumeCollection TimeReceived Time10/05/2025 12:30 PM EST Narrative 10/05/2025 12:34 PM EST ULTRASOUND RETROPERITONEUM INDICATION: Right-sided flank tenderness. COMPARISON: 10/06/2018. FINDINGS: Ultrasound evaluation of the kidneys was performed. Right kidney: 11.2 cm in maximal length. 8.3 cm renal cyst, no follow-up needed. No stone or collecting system dilatation. Left kidney: 11.2 cm in maximal length. 1.2 cm renal cyst, no follow-up needed. No stone or evidence of obstruction. IMPRESSION: 1. No acute abnormality. No stone or collecting system dilatation. Finalized by Vernon Ceballos MD on 10/05/2025 12:34 PM Procedure Note Vernon Ceballos MD - 10/05/2025 ULTRASOUND RETROPERITONEUM INDICATION: Right-sided flank tenderness. COMPARISON: 10/06/2018. FINDINGS: Ultrasound evaluation of the kidneys was performed. Right kidney: 11.2 cm in maximal length. 8.3 cm renal cyst, no follow-upneeded. No stone or collecting system dilatation. Left kidney: 11.2 cm in maximal length. 1.2 cm renal cyst, no follow-upneeded. No stone or evidence of obstruction. IMPRESSION: 1. No acute abnormality. No stone or collecting system dilatation. Finalized by Vernon Ceballos MD on 10/05/2025 12:34 PM Authorizing ProviderResult TypeResult StatusAngela Keny MERCHANDISING EXECUTION MANAGER-CNPIMG US ORDERABLESFinal Result * (ABNORMAL) CBC auto differential (10/05/2025 4:37 AM EST) Only the most recent of3 resultswithin the time period is included. ComponentValueRef RangeTest MethodAnalysis TimePerformed AtPathologist Signature WBC3.9(L)4 - 11 X10^9/L112/05/2024 5:28 AM [facility] RBC Count4.104.1 - 5.7 X10^12/L112/05/2024 5:28 AM ESTCLEVEL[facility]ON [facility]OSPITALHemoglobin13.013 - 17 g/dL10/05/2025 5:28 AM ESTPROST LUKE MEDICAL CENTERHematocrit37.0(L)39 - 50 %10/05/2025 5:28 AM ESTCLEVELAND CLINIC AVON HOSPITALMCV9080 - 100 fL10/05/2025 5:28 AM ESTPROST LUKE MEDICAL CENTERMCH31.727 - 34 pg10/05/2025 5:28 AM ESTPROST LUKE MEDICAL CENTERMCHC35.232 - 36 g/dL10/05/2025 5:28 AM ESTCLEVELAND CLINIC AVON HOSPITALRDW13.211.5 - 15 %10/05/2025 5:28 AM [facility]ALTHPlatelet Xcyxt018(L)150 - 450 X10^9/L112/05/2024 5:28 AM EST [facility] COVINAMPV7.97 - 12 fL10/05/2025 5:28 AM EST [facility]OS[facility]ITALNeutrophils %64.4%10/05/2025 5:28 AM EST [facility]OS[facility]ITALLymphocytes %20.8%10/05/2025 5:28 AM EST [facility]ITALMonocytes %10.4%10/05/2025 5:28 AM EST [facility]ITALEosinophils %3.5%10/05/2025 5:28 AM EST [facility]ITALBasophils %0.9%10/05/2025 5:28 AM EST [facility]ITALNeutrophils Absolute (A)2.51.5 - 6.6 X10^9/L 10/05/2025 5:28 AM [facility]ALTHLymphocytes Absolute0.8 (L)1.0 - 3.5 X10^9/L112/05/2024 5:28 AM ESTCLEVEL[facility]OSP[facility] Monocytes Absolute0.40.0 - 0.9 X10^9/L112/05/2024 5:28 AM ESTCLEVELAND CLINIC AVON HOSPITALEosinophils Absolute0.10.0 - 0.4 X10^9/L112/05/2024 5:28 AM EST [facility]ITALBasophils Absolute0.00.0 - 0.2 X10^9/L 10/05/2025 5:28 AM [facility]ALTHDifferential Type AUTOMATED MIKBLRZGLSMV57/07/2025 5:28 AM [facility] Specimen (Source)Anatomical Location / LateralityCollection Method / Volume Collection TimeReceived TimeBloodVenous blood / UnknownVenipuncture / Unknown 10/05/2025 4:37 AM EST10/05/2025 5:18 AM EST Narrative Authorizing ProviderResult TypeResult StatusAngela Keny MERCHANDISING EXECUTION MANAGER-CNPLAB BLOOD ORDERABLESFinal ResultPerforming OrganizationAddressCity/State/ZIP CodePhone Number [facility] [address] [place] [address], * Magnesium (10/05/2025 4:37 AM EST) Only the most recent of2 resultswithin the time period is included. ComponentValueRef RangeTest MethodAnalysis TimePerformed AtPathologist Signature MAGNESIUM1.81.8 - 2.6 mg/dL10/05/2025 5:43 AM ESTTRIHEALTH GOOD SAMARITAN HOSPITALpecimen (Source)Anatomical Location / LateralityCollection Method / VolumeCollection TimeReceived TimeBloodVenous blood / UnknownVenipuncture / Tyoknjh2710/05/2025 4:37 AM EST10/05/2025 5:18 AM EST Narrative Authorizing ProviderResult TypeResult StatusAngela [place] MERCHANDISING EXECUTION MANAGER-CNPLAB BLOOD ORDERABLESFinal ResultPerforming OrganizationAddressCity/State/ZIP CodePhone Number [facility] [address] [place] [address], * (ABNORMAL) Comprehensive metabolic panel (10/05/2025 4:37 AM EST) Only the most recent of2 resultswithin the time period is included. ComponentValueRef RangeTest MethodAnalysis TimePerformed AtPathologist Signature CPKBWY109731 - 146 mmol/L112/05/2024 5:43 AM [facility] HEALTHPOTASSIUM3.93.5 - 5.0 mmol/L112/05/2024 5:43 AM ESTCLEVELAND CLINIC AVON HOSPITALCHLORIDE10598 - 109 mmol/L112/05/2024 5:43 AM ESTCLEVELAND CLINIC AVON HOSPITALCARBON AHSKSUY7433 - 32 mmol/L112/05/2024 5:43 AM EST [facility]ITALANION GAP95 - 15 mmol/L112/05/2024 5:43 AM EST [facility]OS[facility]ITALBLOOD UREA XNIJHZHH141 - 27 mg/dL10/05/2025 5:43 AM ESTCLEVELAND CLINIC AVON HOSPITALCREATININE1.180.70 - 1.20 mg/dL 10/05/2025 5:43 AM [facility]ALTHComment:METHOD TRACEABLE TO IDMS AJWEUZSWSBTAKHX988(H)65 - 99 mg/dL10/05/2025 5:43 AM EST [facility]OS[facility]ITALCALCIUM8.88.5 - 10.5 mg/dL10/05/2025 5:43 AM [facility]ALTHTOTAL PROTEIN6.16.0 - 8.0 g/dL10/05/2025 5:43 AM [facility]ALTHALBUMIN3.63.2 - 5.3 g/dL10/05/2025 5:43 AM [facility]ALTHALKALINE OBQBOYDVOCW6021 - 130 U/L 10/05/2025 5:43 AM [facility]ALTHAST15<=41 U/L112/05/2024 5:43 AM ESTCLEVELAND CLINIC AVON HOSPITALALT18<=40 U/L112/05/2024 5:43 AM [facility] HEALTHBILIRUBIN,TOTAL1.00.3 - 1.2 mg/dL 10/05/2025 5:43 AM [facility] HEALTHEGFR Non-Race Dependent 68>=60 ml/min/1.73sq.m112/05/2024 5:43 AM [facility] Comment: eGFR not reported due to non-numeric value for Creatinine. Reported eGFR is based on the CKD-EPI 2020 equation that does not use a race coefficient. Specimen (Source)Anatomical Location / LateralityCollection Method / Volume Collection TimeReceived TimeBloodVenous blood / UnknownVenipuncture / Unknown 10/05/2025 4:37 AM EST10/05/2025 5:18 AM EST Narrative Authorizing ProviderResult TypeResult StatusAngela Keny MERCHANDISING EXECUTION MANAGER-CNPLAB BLOOD ORDERABLESFinal ResultPerforming OrganizationAddressCity/State/ZIP CodePhone Number [facility] [address] [place] [address], * SST TOP (10/05/2025 4:36 AM EST)ComponentValueRef RangeTest MethodAnalysis TimePerformed AtPathologist SignatureExtra TubeAuto Aphhvgve05/07/2025 6:03 AM [facility]pecimen (Source)Anatomical Location / LateralityCollection Method / VolumeCollection TimeReceived TimeBloodVenous blood / Vnzrwij6610/05/2025 4:36 AM EST10/05/2025 5:19 AM EST Narrative Authorizing ProviderResult TypeResult StatusMuhamid M [place] OVIEDOLAB BLOOD ORDERABLESFinal ResultPerforming OrganizationAddressCity/State/ZIP CodePhone Number [address] [place] [address], [place] * Light Blue Top (10/05/2025 4:36 AM EST) Only the most recent of2 resultswithin the time period is included. ComponentValueRef RangeTest MethodAnalysis TimePerformed AtPathologist Signature Extra TubeAuto Xajynlph98/07/2025 6:03 AM [facility] Specimen (Source)Anatomical Location / LateralityCollection Method / Volume Collection TimeReceived TimeBloodVenous blood / Zudnggs4210/05/2025 4:36 AM EST 10/05/2025 5:19 AM EST Narrative Authorizing ProviderResult TypeResult StatusMuhamid M River OVIEDOLAB BLOOD ORDERABLESFinal ResultPerforming OrganizationAddressCity/State/ZIP CodePhone Number [address] [place] [address], [place] * Resp Pathogens Panel/SARS CoV-2 (10/04/2025 5:53 PM EST)ComponentValueRef RangeTest MethodAnalysis TimePerformed AtPathologist SignatureSARS COV 2 BY PCRNot DetectedNot Tjndllbh38/06/2025 11:30 PM [facility] LABORATORYADENOVIRUSNot DetectedNot Gckxceoj07/06/2025 11:30 PM [facility] LABORATORYCORONAVIRUS 229ENot DetectedNot Nleuftet67/06/2025 11:30 PM [facility] LABORATORYCORONAVIRUS LBM6Rtd DetectedNot Wtbynarq02/06/2025 11:30 PM [facility] LABORATORYCORONAVIRUS AJ76Eww DetectedNot Hirswsoj74/06/2025 11:30 PM [facility] LABORATORYCORONAVIRUS PC73Dzx DetectedNot Qlelrwok04/06/2025 11:30 PM [facility] LABORATORYHUMAN METAPNEUVIRUSNot DetectedNot Detected 10/04/2025 11:30 PM [facility] LABORATORYRHINO/ENTEROVIRUSNot DetectedNot Ccbvzibt85/06/2025 11:30 PM [facility] INFLUENZA ANot DetectedNot Losravdc40/06/2025 11:30 PM [facility] LABORATORYINFLUENZA BNot DetectedNot Twzcxvjl40/06/2025 11:30 PM [facility] LABORATORYPARAINFLUENZA 1Not DetectedNot Detected 10/04/2025 11:30 PM [facility] LABORATORYPARAINFLUENZA 2Not DetectedNot Bfpfvvav69/06/2025 11:30 PM [facility] PARAINFLUENZA 3Not DetectedNot Tmhwccze90/06/2025 11:30 PM [facility] LABORATORYPARAINFLUENZA 4Not DetectedNot Efpijtry99/06/2025 11:30 PM [facility] LABORATORYRESP SYNCYTIAL VIRUSNot DetectedNot Kvrhkhwn36/06/2025 11:30 PM [facility] LABORATORYBORD PARAPERTUSSISNot DetectedNot Lpxiojgu19/06/2025 11:30 PM [facility] LABORATORYBORDETELLA PERTUSSISNot DetectedNot Wovvddxe14/06/2025 11:30 PM [facility] LABORATORYCHLAM.PNEUMONIAENot DetectedNot Nclaipdk51/06/2025 11:30 PM [facility] LABORATORYMYCOPLASMA PNEUMONIAENot DetectedNot Gcykqnaj41/06/2025 11:30 PM [facility] LABORATORYSpecimen (Source)Anatomical Location / LateralityCollection Method / VolumeCollection TimeReceived TimeSwabNasopharyngeal structure / Cxmgwll8410/04/2025 5:53 PM EST10/04/2025 6:31 PM EST [facility] LABORATORY - 10/04/2025 11:30 PM EST The [employer] Respiratory Panel 2.1 (RP2.1) is a multiplexed nucleic acid test intended for the simultaneous qualitative detection and differentiation of nucleic acid from multiple viral and bacterial respiratory organisms, including nucleic acid from Severe Acute Respiratory Syndrome Coronavirus 2 (SARS-CoV-2), in nasopharyngeal swabs obtained from individuals suspected of COVID-19 by their healthcare provider. Testing is limited to laboratories certified under the Clinical Laboratory Improvement Amendments of 1988 (CLIA), to perform high complexity or moderate complexity tests. SARS-CoV-2 RNA and nucleic acids from the other respiratory viral and bacterial organisms identified by this test are generally detectable in nasopharyngeal swabs during the acute phase of infection.The detection and identification of specific viral and bacterial nucleic acids from individuals exhibiting signs and/or symptoms of respiratory infection is indicative of the presence of the identified microorganism and aids in the diagnosis of respiratory infection if used in conjunction with other clinical and epidemiological information. Positive results are indicative of the presence of the identified organism, but do not rule out co-infection with other pathogens. The agent(s) detected by the [employer]Fire RP2.1 may not be the definite cause of disease and clinical correlation with patient history and other diagnostic information is necessary to determine patient infection status. Negative results in the setting of a respiratory illness may be due to infection with pathogens notdetected by this test, or lower respiratory tract infection that may not be detected by a nasopharyngeal specimen. Negative results do not preclude SARS-CoV-2 infection and should not be used as the sole basis for patient management decisions. Negative TRAM-CoV-2 results must be combined with clinical observations, patient history and epidemiological information. Negative results for other organisms identified by the test may require additional laboratory testing when evaluating a patient with possible respiratory tract infection. Authorizing ProviderResult TypeResult StatusAngela Keny MERCHANDISING EXECUTION MANAGER-CNPMICROBIOLOGY - GENERAL ORDERABLESFinal ResultPerforming OrganizationAddressCity/State/ZIP Code Phone Number [facility] [address] [place] [address], * Echo complete W/ contrast (10/04/2025 1:30 PM EST)ComponentValueRef RangeTest MethodAnalysis TimePerformed AtPathologist SignatureLVOT stroke kofdmx47.51ml XCELERALV Systolic Vgdsje70.49tIKUTEEHXSV29%QENBBUFDG3920 - 44 %XCELERALV Diastolic Otvyft28.30dGOZOTVQYSMEFv1.215.61 - 7.79 cmXCELERALVIDs2.513.28 - 4.97 cmXCELERAIVS1.290.6 - 1.1 cmXCELERAPW1.060.6 - 1.1 cmXCELERALVOT diameter 2.70kbKPCIXIUUHC71.30cm/sXCELERAMV TDI E' (medial)5.71cm/sXCELERALA Volume Index24.4mL/e5PYXDQJEB/A ratio1.04XCELERAE wave deceleration uaqw510.00msec XCELERAMV Peak E Vel68.40cm/sXCELERAMV Peak A Vel66.00cm/sXCELERALA size4.10cm XCELERAAortic root2.60cmXCELERALA abvyos72.40wz6RKHNTGDMO diastolic dimension (basal)38.1ycPAGDZVBXTHOO4.26cmXCELERAAV peak jxk820.00cm/sXCELERALVOT peak vel0.95m/sXCELERAAV VTI24.00cmXCELERALVOT peak VTI19.60cmXCELERAAV mean gradient3.00mmHgXCELERAAV peak gradient5.38mmHgXCELERAAV valve area3.10XCELERA Valve area - Index1.4XCELERAMV pressure 1/2 time71.00msXCELERAMV valve area p 1/2 method3.56vf1PNWLXIBCY Peak Vel2.5m/sXCELERATR peak dtovichl13.40mmHg XCELERALV ESV A2C48.40mLXCELERALV ESV A4C54.30mLXCELERALV RWT 2D50.36XCELERA Echo EF Eloyfopuo80%XCELERAAV Velocity Ratio0.82XCELERALeft Ventricle Mass 173.464474596450678eWMZZJTBHtjlvpbckmfrlrkr Septum Diastolic Thickness by 2D 12.9cmXCELERATR max vel2.50m/sXCELERAMV E' average8.0cm/sXCELERAEst. RA ajmrrgpz3ylLaKIMRVHCPS area18.1db8NSIEOKZAF Peak Systolic Lztctoap37kmYj XCELERAZLVIDS-3.76XCELERAZLVIDD-4.51XCELERAEnergy loss index11.20XCELERA Anatomical RegionLateralityModalityChestN/AUltrasoundSpecimen (Source) Anatomical Location / LateralityCollection Method / VolumeCollection Time Received Time Narrative 10/04/2025 2:23 PM EST Left Ventricle: Left ventricle is small. Systolic function is normal with an ejection fraction of 65-70%. The quantitative EF by 2D Dutta biplane is 68%. There is no diastolic dysfunction and normal left atrial pressure. ?Right??Ventricle: Right ventricular size appears normal. Systolic function is mildly to moderately reduced. ?Mitral??Valve: There is ufncc-bw-dmrp regurgitation. There is no evidence of mitral valve stenosis. ?Tricuspid??Valve: There is trace to mild regurgitation. There is no evidence of tricuspid valve stenosis. 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 Agitated saline bubble study revealed no evidence of right to left interatrial shunting . Left Ventricle Left ventricle is small. There is mild increased wall thickness/hypertrophy. Systolic function is normal with an ejection fraction of 65-70%. The quantitative EF by 2D Dutta biplane is 68%. No obvious regional wall motion abnormalities. There is no diastolic dysfunction and normal left atrial pres sure. Lateral E' is 10.30 cm/s. Medial E' is 5.71 cm/s. Average E' is 8.0 cm/s. Right Ventricle Right ventricular size appears normal. The right ventricular basal diameter is 38.4 mm. Systolic function is mildly to moderately reduced. Left Atrium Left atrium volume index is normal. The left atrial volume index is 24.4 mL/m2. 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 Agitated saline bubble study revealed no evidence of right to left interatrial shunting . Right Atrium Right atrium is normal in size. The right atrial area is 18.0 cm2. IVC/SVC The right atrial pressure is estimated at 3 mmHg. IVC appears normal. There is normal collapse withdeep inspiration. Mitral Valve Mitral valve structure is normal. There is pceyp-nl-laut regurgitation. There is no evidence of mitral valve stenosis. Tricuspid Valve Tricuspid valve appears to be normal. There is trace to mild regurgitation. There is no evidence oftricuspid valve stenosis. RVSP calculated at 27 mmHg. RVSP is based on RA pressure of 3 mmHg. Aortic Valve The aortic valve is trileaflet. There is sclerosis. There is no regurgitation or stenosis. Pulmonic Valve The pulmonic valve was not well visualized. There is trace regurgitation. Ascending Aorta The aortic root is normal in size. Pericardium There is no pericardial effusion. Study Details A complete echo was performed using complete 2D, color flow Doppler and spectral Doppler. Definity and an agitated saline bubble study was performed. The study had technical difficulties. The study was difficult due to patient's poor acoustic windows. Wall Scoring Baseline Score Index: 1.00 The left ventricular wall motion is normal. Authorizing ProviderResult TypeResult StatusKeisha Mancuso PACV ECHO ORDERABLESFinal Result * X-ray chest 1 view (10/03/2025 6:44 PM EST)Anatomical RegionLateralityModality Body, ChestN/AComputed RadiographySpecimen (Source)Anatomical Location / LateralityCollection Method / VolumeCollection TimeReceived Time10/03/2025 6:57 PM EST Narrative 10/03/2025 6:58 PM EST EXAM: XR CHEST 1 VW CLINICAL INFORMATION: pain on left side. COMPARISON: 06/14/2025 FINDINGS: There is chronic elevation of the right diaphragm. There are no focal consolidations. There is no pulmonary edema or pleural effusions. Heart size is within normal limits. The patient is status post previous sternotomy. IMPRESSION: 1. No acute cardiopulmonary disease. Finalized by Eulogio Cruz MD on 10/03/2025 6:58 PM Procedure Note Eulogio Cruz MD - 10/03/2025 EXAM: XR CHEST 1 VW CLINICAL INFORMATION: pain on left side. COMPARISON: 06/14/2025 FINDINGS: There is chronic elevation of the right diaphragm. There are no focal consolidations. There is no pulmonary edema or pleural effusions. Heartsize is within normal limits. The patient is status post previoussternotomy. IMPRESSION: 1. No acute cardiopulmonary disease. Finalized by Eulogio Cruz MD on 10/03/2025 6:58 PM Authorizing ProviderResult TypeResult StatusMichelle Bustillo MERCHANDISING EXECUTION MANAGER-CNPIMG DIAGNOSTIC IMAGING ORDERABLESFinal Result * MR brain without contrast (10/03/2025 1:38 PM EST)Anatomical RegionLaterality ModalityNeuro, Head, Head and Neck, Neuro CoveraN/AMagnetic ResonanceSpecimen (Source)Anatomical Location / LateralityCollection Method / VolumeCollection TimeReceived Time10/03/2025 1:46 PM EST Narrative 10/03/2025 1:52 PM EST EXAM: MRI BRAIN WITHOUT CONTRAST CLINICAL HISTORY: Dizziness. TECHNIQUE: TECHNIQUE: Routine multiplanar multisequence MR imaging of the brain was performed without contrast. COMPARISONS: MRI dated 06/22/2022, CT dated 10/03/2025 FINDINGS: There are tiny linear cortical foci of restricted diffusion at the vertex of the right anterior parietal lobe, compatible with a tiny acute cortical infarct. There is no corresponding mass effect. There are white matter changes of chronic ischemic small vessel disease. There is no intracranial mass effect. The ventricles are proportional to the overall brain volume without evidence for outflow obstruction. ??There is no shift of the midline structures and the basal cisterns are widely patent. There is no susceptibility to suggest the presence of intracranial blood degradation products. The midline structures and craniocervical junction are within normal limits. The paranasal sinuses are well aerated. There is a small amount of nonaggressive fluid in the mastoids. IMPRESSION: 1. 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 There is no mass effect. THIS REPORT CONTAINS A SIGNIFICANT RESULT AND/OR RECOMMENDATION, WHICH REQUIRES THE ATTENTION OF THE LICENSED CAREGIVER RESPONSIBLE FOR THIS PATIENT. THEREFORE, I SPECIFICALLY DESIGNATED THIS REPORT TO BE TELEPHONED BY THE RADIOLOGY DEPARTMENT. FINDINGS WERE INSTRUCTED TO BE CALLED TO THE CLINICAL SERVICE ON 10/03/2025 AT 1:52 PM EST. Finalized by Eulogio Cruz MD on 10/03/2025 1:52 PM Procedure Note Eulogio Cruz MD - 10/03/2025 EXAM: MRI BRAIN WITHOUT CONTRAST CLINICAL HISTORY: Dizziness. TECHNIQUE: TECHNIQUE: Routine multiplanar multisequence MR imaging of thebrain was performed without contrast. COMPARISONS: MRI dated 06/22/2022, CT dated 10/03/2025 FINDINGS: There are tiny linear cortical foci of restricted diffusion at the vertexof the right anterior parietal lobe, compatible with a tiny acute corticalinfarct. There is no corresponding mass effect. There are white matterchanges of chronic ischemic small vessel disease. There is no intracranialmass effect. The ventricles are proportional to the overall brain volumewithout evidence for outflow obstruction. There is no shift of themidline structures and the basal cisterns are widely patent. There is nosusceptibility to suggest the presence of intracranial blood degradationproducts. The midline structures and craniocervical junction are within normal limits.The paranasal sinuses are well aerated. There is a small amount ofnonaggressive fluid in the mastoids. IMPRESSION: 1. 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 Thereis no mass effect. THIS REPORT CONTAINS A SIGNIFICANT RESULT AND/OR RECOMMENDATION, WHICHREQUIRES THE ATTENTION OF THE LICENSED CAREGIVER RESPONSIBLE FOR THISPATIENT. THEREFORE, I SPECIFICALLY DESIGNATED THIS REPORT TO BE TELEPHONED BY THE RADIOLOGY DEPARTMENT. FINDINGS WERE INSTRUCTED TO BE CALLED TO THE CLINICAL SERVICE ON 10/03/2025T 1:52 PM EST. Finalized by Eulogio Cruz MD on 10/03/2025 1:52 PM Authorizing ProviderResult TypeResult StatusMichelle Bustillo MERCHANDISING EXECUTION MANAGER-CNPIMG MRI ORDERABLESFinal Result * Troponin I, High Sensitivity 1 Hour (10/03/2025 9:09 AM EST)ComponentValueRef RangeTest MethodAnalysis TimePerformed AtPathologist SignatureTROPONIN I, HIGH SENSITIVITY4<21 ng/L112/03/2024 9:48 AM [facility] Specimen (Source)Anatomical Location / LateralityCollection Method / Volume Collection TimeReceived TimeBloodVenous blood / UnknownVenipuncture / Unknown 10/03/2025 9:09 AM EST10/03/2025 9:12 AM EST Narrative Authorizing ProviderResult TypeResult StatusFarzad Fox MDLAB BLOOD ORDERABLESFinal ResultPerforming OrganizationAddressCity/State/ZIP CodePhone Number [facility] [address] * (ABNORMAL) Bedside Glucose *Place/Obtain serum glucose if >500 per glucometer. (10/03/2025 8:12 AM EST)ComponentValueRef RangeTest MethodAnalysis Time Performed AtPathologist SignatureBedside Glucose (POC)177(H)65 - 99 mg/dL 10/03/2025 8:14 AM [facility] Anatomical Location / LateralityCollection Method / VolumeCollection Time Received Timearterial/zjljxxnru29/05/2025 8:12 AM EST10/03/2025 8:14 AM EST Narrative Authorizing ProviderResult TypeResult StatusPOINT OF CARE TEST ORDERABLESFinal ResultPerforming OrganizationAddressCity/State/ZIP CodePhone Number [facility] [address] [place] [address], [place] * EKG 12 lead (10/03/2025 8:10 AM EST)Specimen (Source)Anatomical Location / LateralityCollection Method / VolumeCollection TimeReceived Time10/03/2025 8:10 AM EST Narrative Authorizing ProviderResult TypeResult StatusFarzad Fox MDECG ORDERABLES Final ResultPerforming OrganizationAddressCity/State/ZIP CodePhone Number [facility] * CT angiogram carotid (10/03/2025 8:09 AM EST)Anatomical RegionLaterality ModalityNeuro, Neck, Vascular, Neuro CoveraN/AComputed TomographySpecimen (Source)Anatomical Location / LateralityCollection Method / VolumeCollection TimeReceived Time10/03/2025 8:10 AM EST Narrative 10/03/2025 8:12 AM EST CLINICAL INFORMATION: dizziness TECHNIQUE: CT CTA CAROTID CTA of the carotids was obtained. Intravenous contrast was administered. Post processed three-dimensional maximum intensity projection imaging was acquired and evaluated. Images of the upper lungs show no focal consolidation. Fatty right upper lobe pleural thickening noted, not likely of clinical significance. Upper mediastinum unremarkable. The common carotid arteries are symmetric without stenosis to within the limits of this exam. Mild atherosclerotic changes present at the carotid bifurcations bilaterally without hemodynamically stenosis. Internal carotid arteries normal in caliber without stenosis, dissection, or aneurysm. There are codominant vertebral arteries well visualized throughout course without focal narrowing. Osseous structures appear intact. IMPRESSION: No evidence of stenosis, dissection, or aneurysm. All CT scans at this facility use dose modulation, iterative reconstruction, and/or weight based dosing when appropriate to reduce radiation dose to as low as reasonably achievable. Finalized by Mehran Goldstein MD on 10/03/2025 8:12 AM Procedure Note Mehran Goldstein MD - 10/03/2025 CLINICAL INFORMATION: dizziness TECHNIQUE: CT CTA CAROTID CTA of the carotids was obtained. Intravenous contrast was administered.Post processed three-dimensional maximum intensity projection imaging wasacquired and evaluated. Images of the upper lungs show no focalconsolidation. Fatty right upper lobe pleural thickening noted, not likelyof clinical significance. Upper mediastinum unremarkable. The common carotid arteriesare symmetric without stenosis to within the limits of this exam. Mild atherosclerotic changes present at the carotid bifurcations bilaterallywithout hemodynamically stenosis. Internal carotid arteries normal incaliber without stenosis, dissection, or aneurysm. There are codominant vertebral arteries well visualized throughout course without focal narrowing.Osseous structures appear intact. IMPRESSION: No evidence of stenosis, dissection, or aneurysm. All CT scans at this facility use dose modulation, iterativereconstruction, and/or weight based dosing when appropriate to reduceradiation dose to as low as reasonably achievable. Finalized by Mehran Goldstein MD on 10/03/2025 8:12 AM Authorizing ProviderResult TypeResult Nasir ESPARZA CT ORDERABLES Final Result * Troponin I, High Sensitivity 0 Hour (10/03/2025 8:06 AM EST)ComponentValueRef RangeTest MethodAnalysis TimePerformed AtPathologist SignatureTROPONIN I, HIGH SENSITIVITY4<21 ng/L112/03/2024 8:39 AM [facility] Specimen (Source)Anatomical Location / LateralityCollection Method / Volume Collection TimeReceived TimeBloodVenous blood / UnknownVenipuncture / Unknown 10/03/2025 8:06 AM EST10/03/2025 8:08 AM EST Narrative Authorizing ProviderResult TypeResult Nasir Fox MDLAWRENCE [facility] BLOOD ORDERABLESFinal ResultPerforming OrganizationAddressCity/State/ZIP CodePhone Number [facility] [address] [place] [address], * Thyroid profile includes TSH FT4 (10/03/2025 8:06 AM EST)ComponentValueRef RangeTest MethodAnalysis TimePerformed AtPathologist SignatureFREE T40.990.61 - 1.60 ng/dL10/03/2025 2:52 PM ESTCLEVELAND CLINIC [facility]ON HOSPITALTSH3.39 0.49 - 4.67 uIU/mL10/03/2025 2:52 PM [facility]PROM[facility] Specimen (Source)Anatomical Location / LateralityCollection Method / Volume Collection TimeReceived TimeBloodVenous blood / UnknownVenipuncture / Unknown 10/03/2025 8:06 AM EST10/03/2025 8:08 AM EST Narrative Authorizing ProviderResult TypeResult StatusMichelle Bustillo MERCHANDISING EXECUTION MANAGER-CNPLAB BLOOD ORDERABLESFinal ResultPerforming OrganizationAddressCity/State/ZIP CodePhone Number [facility] [address] [place] [address], * (ABNORMAL) Vitamin D 25 hydroxy (10/03/2025 8:06 AM EST)ComponentValueRef RangeTest MethodAnalysis TimePerformed AtPathologist SignatureVITAMIN D 25 HYD TOT<7.0(L)30.0 - 100.0 ng/mL10/03/2025 7:48 PM [facility]pec[facility] (Source)Anatomical Location / LateralityCollection Method / VolumeCollection TimeReceived TimeBloodVenous blood / UnknownVenipuncture / Csgnlym1310/03/2025 8:06 AM EST10/03/2025 8:08 AM EST Narrative [facility] - 10/03/2025 7:48 PM EST Vitamin D status 25 [place] Vitamin D Deficiency <20 ng/mL Insufficiency ? 20-29 ng/mL Sufficiency ? 30-100 ng/mL Toxicity >100 ng/mL NOTE: A pediatric reference range has not been established by the production supervisor of this kit. The [place] [employer] recommends a Vitamin D level of = or >20ng/mL in infants and children. Authorizing ProviderResult TypeResult StatusMichelle Bustillo MERCHANDISING EXECUTION MANAGER-CNPLAB BLOOD ORDERABLESFinal ResultPerforming OrganizationAddressCity/State/ZIP CodePhone Number [facility] [address] [place] [address], * APTT (10/03/2025 8:06 AM EST)ComponentValueRef RangeTest MethodAnalysis Time Performed AtPathologist WkvelxtinGUHD3390 - 37 sec10/03/2025 8:27 AM EST [facility] (Source)Anatomical Location / LateralityCollection Method / VolumeCollection TimeReceived TimeBloodVenous blood / UnknownVenipuncture / Nuudfcf1710/03/2025 8:06 AM EST10/03/2025 8:08 AM EST Narrative Authorizing ProviderResult TypeResult StatusFarzad VALDERRAMA BLOOD ORDERABLESFinal ResultPerforming OrganizationAddressCity/State/ZIP CodePhone Number [address] [address], * Protime & INR (10/03/2025 8:06 AM EST)ComponentValueRef RangeTest Method Analysis TimePerformed AtPathologist PhljrrnzsQBPJAMN00.29.8 - 13.2 sec 10/03/2025 8:27 AM ESTCLEVELAND CLINIC AVON HOSPITALINR1.00.9 - 1.2 10/03/2025 8:27 AM [facility] (Source) Anatomical Location / LateralityCollection Method / VolumeCollection Time Received TimeBloodVenous blood / UnknownVenipuncture / Xneeosp7610/03/2025 8:06 AM EST10/03/2025 8:08 AM EST Narrative Authorizing ProviderResult TypeResult StatusFarzad VALDERRAMA BLOOD ORDERABLESFinal ResultPerforming OrganizationAddressty/State/ZIP CodePhone Number [address] [address], * (ABNORMAL) Hemoglobin A1c (10/03/2025 8:06 AM EST)ComponentValueRef RangeTest MethodAnalysis TimePerformed AtPathologist SignatureHEMOGLOBIN A1C6.2(H)4.4 - 5.6 %10/03/2025 7:49 PM [facility]ATORYComment: ?ADA Guidelines ?Result ?HgbA1c ? Normal : ? less than 5.7 % ? Prediabetes : ?5.7 % ??to 6.4 % Diabetes : > 6.4 % ?Use with caution in patients with abnormal hemoglobin variants as ??the half-life of red blood cells and in vivo glycation rates are ??affected. EST. AVERAGE TXESKAZ293hx/dL10/03/2025 7:49 PM [facility]pecimen (Source)Anatomical Location / LateralityCollection Method / VolumeCollection TimeReceived TimeBloodVenous blood / UnknownVenipuncture / Mfwgrvx1010/03/2025 8:06 AM EST10/03/2025 8:08 AM EST Narrative Authorizing ProviderResult TypeResult StatusKeisha Mancuso PALAB BLOOD ORDERABLESFinal ResultPerforming OrganizationAddressCity/State/ZIP Code Phone Number [facility] [address] [place] [phone], * Vitamin B12 (10/03/2025 8:06 AM EST)ComponentValueRef RangeTest MethodAnalysis TimePerformed AtPathologist SignatureVITAMIN [id number] - 914 pg/mL10/03/2025 7:43 PM [facility]YSpecimen (Source)Anatomical Location / LateralityCollection Method / VolumeCollection TimeReceived Time BloodVenous blood / UnknownVenipuncture / Milfmlb0510/03/2025 8:06 AM EST 10/03/2025 8:08 AM EST Narrative Authorizing ProviderResult TypeResult StatusMichelle Bustillo MERCHANDISING EXECUTION MANAGER-CNPLAB BLOOD ORDERABLESFinal ResultPerforming OrganizationAddressCity/State/ZIP CodePhone Number [facility] [address] [place] [address], [place] [phone] * Liver panel (10/03/2025 8:06 AM EST)ComponentValueRef RangeTest MethodAnalysis TimePerformed AtPathologist SignatureTOTAL PROTEIN6.16.0 - 8.0 g/dL10/03/2025 8:34 AM [facility]ALBUMIN3.53.2 - 5.3 g/dL 10/03/2025 8:34 AM [facility] HEALTHBILIRUBIN,TOTAL1.00.3 - 1.2 mg/dL10/03/2025 8:34 AM [facility]ALTHALKALINE CPIPHRSHYCI9326 - 130 U/L112/03/2024 8:34 AM [facility]ALTHAST13<=41 U/L112/03/2024 8:34 AM [facility] ALT17<=40 U/L112/03/2024 8:34 AM [facility] BILIRUBIN,DIRECT0.1<=0.4 mg/dL10/03/2025 8:34 AM [facility] ([facility])Anatomical Location / LateralityCollection Method / VolumeCollection TimeReceived TimeBloodVenous blood / UnknownVenipuncture / Lvbpiat4910/03/2025 8:06 AM EST10/03/2025 8:08 AM EST Narrative Authorizing ProviderResult TypeResult StatusFarzad VALDERRAMA BLOOD ORDERABLESFinal ResultPerforming OrganizationAddressCity/State/ZIP CodePhone Number [facility] [address] [place] [address], * (ABNORMAL) Lipid profile (10/03/2025 8:06 AM EST)ComponentValueRef RangeTest MethodAnalysis TimePerformed AtPathologist JcypegtaeNZWEKWWVDGN796(L)150 - 200 mg/dL10/03/2025 7:27 PM [facility] JZHKYHBAEVZWYGFXRNZVWC4213 - 150 mg/dL10/03/2025 7:27 PM [facility] LABORATORYHDL MIDHFQKAWXP88>39 mg/dL10/03/2025 7:27 PM [facility]ATORYComment: HDL <40 mg/dL - High Risk HDL > or = 40mg/dL- Desirable HDL >60 mg/dL - Negative Risk LDL (CALC)61<130 mg/dL10/03/2025 7:27 PM [facility] Comment: LDL <100 mg/dL - Desirable LDL >160 mg/dL - High Risk CHOLESTEROL:HDL2.91.0 - 5.011/03/2025 7:27 PM [facility] LABORATORYVERY LOW SVJLLEYQBYE744 - 30 mg/dL10/03/2025 7:27 PM [facility] LABORATORYSpecimen (Source)Anatomical Location / Laterality Collection Method / VolumeCollection TimeReceived TimeBloodVenous blood / UnknownVenipuncture / Zumxkzp1510/03/2025 8:06 AM EST10/03/2025 8:08 AM EST Narrative Authorizing ProviderResult TypeResult StatusKeisha Mancuso [facility] BLOOD ORDERABLESFinal ResultPerforming OrganizationAddressCity/State/ZIP Code Phone Number [facility] [address] [place] [address], * (ABNORMAL) Basic Metabolic Panel (10/03/2025 8:06 AM EST)ComponentValueRef RangeTest MethodAnalysis TimePerformed AtPathologist JkkwttkzbSOHYWT541(L)134 - 146 mmol/L112/03/2024 8:34 AM ESTPROST LUKE MEDICAL CENTERPOTASSIUM 4.33.5 - 5.0 mmol/L112/03/2024 8:34 AM [facility]PR[facility] VPILHVKM30057 - 109 mmol/L112/03/2024 8:34 AM ESTPROMEDIKAISER FREMONT MEDICAL CENTERCARBON KSHHRBA2118 - 32 mmol/L112/03/2024 8:34 AM ESTPROMEDIKAISER FREMONT MEDICAL CENTERANION GAP75 - 15 mmol/L112/03/2024 8:34 AM ESTPROST LUKE MEDICAL CENTERBLOOD UREA ONFAXEEA978 - 27 mg/dL10/03/2025 8:34 AM ESTPROST LUKE MEDICAL CENTERCREATININE1.060.70 - 1.20 mg/dL 10/03/2025 8:34 AM [facility]Comment:METHOD TRACEABLE TO IDMS YDKEOGATTNMYKCN296(H)65 - 99 mg/dL10/03/2025 8:34 AM EST [facility]ITALCALCIUM8.78.5 - 10.5 mg/dL10/03/2025 8:34 AM [facility] HEALTHEGFR Non-Race Lvoqiewar78>=60 ml/min/1.73sq.m112/03/2024 8:34 AM [facility] Comment: eGFR not reported due to non-numeric value for Creatinine. Reported eGFR is based on the CKD-EPI 2020 equation that does not use a race coefficient. Specimen (Source)Anatomical Location / LateralityCollection Method / Volume Collection TimeReceived TimeBloodVenous blood / UnknownVenipuncture / Unknown 10/03/2025 8:06 AM EST10/03/2025 8:08 AM EST Narrative Authorizing ProviderResult TypeResult StatusFarzad Fox MDLAWRENCE MEMORIAL [facility] BLOOD ORDERABLESFinal ResultPerforming OrganizationAddressCity/State/ZIP CodePhone Number [facility] [address] [place] [address], * CT angiogram head (10/03/2025 8:01 AM EST)Anatomical RegionLateralityModality Head, Neuro, Vascular, Head and Neck, Neuro CoveraN/AComputed Tomography Specimen (Source)Anatomical Location / LateralityCollection Method / Volume Collection TimeReceived Time10/03/2025 8:09 AM EST Narrative 10/03/2025 8:11 AM EST Examination: ??CT angiogram of the brain ([place]) Clinical History:Dizziness Comparison:None Contrast:100 mL of Omnipaque 350 administered intravenously. Procedure: ??Multidetector CT angiogram performed through the [place] using 3D reconstructions and source images displayed on a PACS workstation and reviewed by the radiologist. Automatic exposure control (AEC) was utilized. Findings: ??CT ANGIOGRAM OF THE [place]. ??There is no aneurysm or major vessel occlusion of the [place]. ??Flow is demonstrated within the vertebral arteries, basilar artery, and bilateral posterior cerebral arteries, middle cerebral arteries and anterior cerebral arteries. ?? IMPRESSION: 1. ??Negative CT angiogram [place] [facility] [place]. All CT scans at this facility use dose modulation, iterative reconstruction, and/or weight based dosing when appropriate to reduce radiation dose to as low as reasonably achievable. Finalized by Abhinav Beaulieu MD on 10/03/2025 8:11 AM Procedure Note Abhinav Beaulieu MD - 10/03/2025 Examination: CT angiogram of the brain ([place] [facility] [place]) Clinical History:Dizziness Comparison:None Contrast:100 mL of Omnipaque 350 administered intravenously. Procedure: Multidetector CT angiogram performed through [place] using 3D reconstructions and source images displayed on a PACSworkstation and reviewed by the radiologist. Automatic exposure control(AEC) was utilized. Findings: CT ANGIOGRAM OF THE [place]. There is no aneurysm ormajor vessel occlusion of the [place]. Flow is demonstratedwithin the vertebral arteries, basilar artery, and bilateral posteriorcerebral arteries, middle cerebral arteries and anterior cerebralarteries. IMPRESSION: 1. Negative CT angiogram [place] [facility] [place]. All CT scans at this facility use dose modulation, iterativereconstruction, and/or weight based dosing when appropriate to reduceradiation dose to as low as reasonably achievable. Finalized by Abhinav Beaulieu MD on 10/03/2025 8:11 AM Authorizing ProviderResult TypeResult StatusFarzad Fox MDASCENSION ST. [facility] [place] [facility] ORDERABLES Final Result * CT brain without contrast stroke alert (10/03/2025 7:50 AM EST)Anatomical RegionLateralityModalityNeuro, Head, Head and Neck, Neuro CoveraN/AComputed TomographySpecimen (Source)Anatomical Location / LateralityCollection Method / VolumeCollection TimeReceived Time10/03/2025 7:50 AM EST Narrative 10/03/2025 7:51 AM EST STUDY: CT HEAD WITHOUT CONTRAST CLINICAL HISTORY: ??AMS acute neurologic symptoms. Stroke. CVA. TIA. Blurred vision transient alteration of awareness COMPARISON: 06/21/2022 TECHNIQUE: CT head was performed without contrast utilizing 2.5 mm axial reconstruction with imagesreviewed in bone and brain windows. Automated exposure control was utilized. FINDINGS: No intracranial mass, mass effect or shift of midline structures. No extra-axial fluid collection. Chan-white differentiation preserved. No CT evidence of large vessel vascular distribution of acute infarct, acute ischemic hemorrhage. No depressed or widely calvarial fracture. Paranasal sinuses are well aerated. Vascular calcifications are noted. Please note, MRI is more sensitive forthe evaluation of acute or occult process if indicated. IMPRESSION: 1. No evidence of an acute intracranial process. All CT scans at this facility use dose modulation, iterative reconstruction, and/or weight based dosing when appropriate to reduce radiation dose to as low as reasonably achievable. Finalized by Franko Samayoa MD on 10/03/2025 7:51 AM Procedure Note Franko Samayoa MD - 10/03/2025 STUDY: CT HEAD WITHOUT CONTRAST CLINICAL HISTORY: AMS acute neurologic symptoms. Stroke. CVA. TIA.Blurred vision transient alteration of awareness COMPARISON: 06/21/2022 TECHNIQUE: CT head was performed without contrast utilizing 2.5 mm axial reconstruction with images reviewed in bone and brain windows. Automatedexposure control was utilized. FINDINGS: No intracranial mass, mass effect or shift of midline structures. Noextra-axial fluid collection. Chan-white differentiation preserved. No CTevidence of large vessel vascular distribution of acute infarct, acuteischemic hemorrhage. No depressed or widely calvarial fracture.Paranasal sinuses are well aerated. Vascular calcifications are noted. Please note,MRI is more sensitive for the evaluation of acute or occult process ifindicated. IMPRESSION: 1. No evidence of an acute intracranial process. All CT scans at this facility use dose modulation, iterativereconstruction, and/or weight based dosing when appropriate to reduceradiation dose to as low as reasonably achievable. Finalized by Franko Samayoa MD on 10/03/2025 7:51 AM Authorizing ProviderResult TypeResult StatusFarzad ESPARZA CT ORDERABLES Final Result * Colonoscopy Report (09/11/2024 9:47 AM EDT)Specimen (Source)Anatomical Location / LateralityCollection Method / VolumeCollection TimeReceived Time Narrative SYSTEMGENERATED, DOCUMENTATION - 09/11/2024 9:47 AM EDT This order has been auto-finalized for image and report archival in PACs. *For full report details, please reach out to your physician. ??This image is visible to you in MyChart.* Authorizing ProviderResult TypeResult StatusMichael E Grillis DOIMG OR IMG ORDERABLESFinal Result from Last 3 Months or Most Recently Relevant to Health Maintenance Insurance Advance Directives * Full Code (Latest Code Status on File) Date ActivatedDate ZmgjmlbpstgGggrurvr30/5/2025 3:23 PM10/05/2025 5:01 PM * Full Code Date ActivatedDate InactivatedComments02/27/2025 8:57 PM03/07/2025 6:50 PM * Full Code Date ActivatedDate InactivatedComments02/24/2025 10:21 PM02/27/2025 9:37 AM * Full Code Date ActivatedDate InactivatedComments01/05/2025 11:48 PM2 2:14 PM * Full Code Date ActivatedDate InactivatedComments06/22/2022 12:10 AM06/23/2022 6:44 PM Care Teams Team MemberRelationshipSpecialtyStart DateEnd Services, [facility] [address] [place], [place] PCP - GeneralFamily Medicine04/10/25
--- OUTSIDE RECORDS SUMMARY | 2025-10-31 08:55 | XMS_ITS | Clinical Summary ---
Author Organization [facility] Address [address] [place] [address] Phone Care Team Providers Care Medical Customer Service Representative Name Role Phone Unavailable Primary Care Provider Unavailabl e Social History Tobacco UseTypesPacks/DayYears UsedDateSmoking Tobacco: Never AssessedSex and Gender InformationValueDate RecordedSex Assigned at BirthNot on fileLegal Sex Male02/05/2023 10:55 AM ESTGender IdentityNot on fileSexual OrientationNot on file Plan of Treatment Health MaintenanceDue DateLast DoneCommentsCT Yaqloenytmta1959Colonoscopy 1960Colorectal Cancer Zieosduih1959FIT-DNA (Cologuard)1960FIT 1960Lipid Panel1960 9508Pxiiccyzwlqid1959Yearly Adult Physical 1960MMR Vaccines (1 of 1 - Standard series)1960Hepatitis C Screening 1977DTaP/Tdap/Td Vaccines (1 - Tdap)1981PSA Prostate Cancer Noeuystpg63/26/2009Pneumococcal Vaccine (1 of 1 - PCV)2009Zoster Vaccines (1 of 2)2009Influenza Vaccine (#1)5COVID-19 Vaccine (1 - 2024- season)2025RSV High Risk: (Elderly (60+) or Population) (1 - 1- dose 75+ series)2034HIB VaccinesAged OutNo longer eligible based on patient's age to complete this topicHPV VaccinesAged OutNo longer eligible based on patient's age to complete this topicHepatitis A VaccinesAged OutNo longer eligible based on patient's age to complete this topicHepatitis B VaccinesAged OutNo longer eligible based on patient's age to complete this topicIPV Vaccines Aged OutNo longer eligible based on patient's age to complete this topic Meningococcal VaccineAged OutNo longer eligible based on patient's age to complete this topicRotavirus VaccinesAged OutNo longer eligible based on patient's age to complete this topic
--- OUTSIDE RECORDS SUMMARY | 2025-10-31 08:55 | XMS_ITS | Clinical Summary ---
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 Name Role Phone Yolette Warren MD Primary Care Provider [phone] Allergies Active AllergyReactionsCriticalityNoted UgvpKvxqmcqmDdqcauh17/22/2022 Other reaction(s): COUGH / SNEEZING Guaifenesin-WxskvgfYzuxz32/02/2023 Medications MedicationSigDispense QuantityRefillsLast FilledStart DateEnd DateStatus alfuzosin ER (Uroxatral) 10 MG 24 hr tablet Take 10 mg by mouth in the morning.Active RA Aspirin EC 325 MG EC tablet Take 325 mg by mouth in the morning.06/23/2022ctive atorvastatin (Lipitor) 10 MG tablet Take 10 mg by mouth in the morning.03/28/2023ctive clopidogrel (Plavix) 75 MG tablet Take 75 mg by mouth in the morning.06/24/2022ctive cyclobenzaprine (Flexeril) 10 MG tablet Take 10 mg by mouth 3 (three) times a day as needed.02/20/2023ctive ibuprofen 800 MG tablet take 1 tablet by mouth twice a day if needed for pain take with food05/21/2022 Active lidocaine (Lidoderm) 5 % patch Place 1 patch on the skin 1 (one) time each day at the same time.02/20/2023 Active lisinopril 10 MG tablet 1 (one) time each day at the same time.09/17/2022ctive meclizine (Antivert) 25 MG tablet take 1 tablet by mouth three times a day if needed for 10 days08/20/2022ctive metoprolol tartrate (Lopressor) 50 MG tablet every 12 (twelve) hours.Active Myrbetriq 50 MG 24 hr tablet Take 50 mg by mouth in the morning.04/07/2023ctive naproxen (EC Naprosyn) 500 MG EC tablet Take 500 mg by mouth in the morning and 500 mg in the evening. Take with meals. 02/20/2023ctive oxybutynin XL (Ditropan-XL) 10 MG 24 hr tablet Take 10 mg by mouth in the morning.06/01/2022ctive tamsulosin (Flomax) 0.4 MG 24 hr capsule Take 0.4 mg by mouth in the morning and 0.4 mg before bedtime.03/01/2023ctive Active Problems No known active problems Social History Tobacco UseTypesPacks/DayYears UsedDateSmoking Tobacco: NeverSmokeless Tobacco: Never Tobacco Cessation:Counseling Given: Not Answered Alcohol UseStandard Drinks/WeekCommentsNever0 (1 standard drink = 0.6 oz pure alcohol)Sex and Gender InformationValueDate RecordedSex Assigned at BirthNot on fileLegal McmOjtw7002/10/2023 6:56 PM EDTGender IdentityNot on fileSexual OrientationNot on file Last Filed Vital Signs Vital SignReadingTime TakenCommentsBlood Xocmtlmo668/7506 9:58 AM EDT Eoqjx4222 9:58 AM EDTTemperature--Respiratory Rate--Oxygen Saturation-- Inhaled Oxygen Concentration--Gxxrod893 kg (245 lb)10/10/2024 8:59 AM ESTHeight 160 cm (5' 3 )10/10/2024 8:59 AM ESTBody Mass Index43. 8:59 AM EST Plan of Treatment Not on file Insurance Care Teams Team MemberRelationshipSpecialtyStart DateEnd Date Yolette Warren MD [address] [place] [address] PCP - GeneralPediatric05/16/24
--- OUTSIDE RECORDS SUMMARY | 2025-10-31 08:55 | XMS_ITS ---
Author Organization [facility] Address [address] [place] [address] Care Team Providers Care Communications Professional Name Role Phone Tarik Jim MD Unavailable [phone] Elif Castano CNP Primary Care Provider [phone] Active Problems ProblemNoted DateDiagnosed DateProstate snkfta8701/05/2023 Current Treatment and Therapy Plans No current plan information found. Past Treatment and Therapy Plans No past plan information found. Treatment Summaries Prostate cancer (HCC)* Treatment Summary and Survivorship Care Plan for Prostate Cancer Provided by: Mary Iraheta APRN.CNP General Information Patient Name: Salo Castro Patient : 1960 Patient phone: Health Care Providers Primary Care Provider: [facility] Urologic Surgeon: Dr. Tarik Jim Radiation Oncologist: Dr. Michelle Lindsay Other Providers: Mary Iraheta APRN.CNP Treatment Summary Diagnosis Cancer Type: Adenocarcinoma of the Prostate Location: See pathology report Diagnosis Date (year): February 05, 2022 Histology Subtype: Prostate Cancer Stage:IIC; Clinical stage T2c, N0, M0 Judd Score: 4 + 4 = 8 PSA at Diagnosis: 2.0 Clinical Trial: No Treatment Completed Surgery: Yes Surgery Date(s) (year): February 05, 2022 Surgical procedure/location/findings: Transrectal ultrasound random and MR targeted biopsies; See pathology report; Adenocarcinoma of the prostate. External beam radiation: Yes Pelvis and Prostate: Yes: End Date (year): April 24, 2022 (March 23, 2022 through April 24, 2022) Brachytherapy to prostate: Yes: End Date (year): May 21, 2022 DELIVERED DOSE: Area: PELVIS: 45Gy in 25 fractions, 2 ARCS, VMAT, 10MV WITH DAILY CBCT PROSTATE: 100Gy, Pd-103, 56 sources, 94.53 mCi Systemic Therapy (chemotherapy, hormonal therapy, other): Yes Name of Agents Used: Lupron (or similar LHRH agonist): Ongoing February 27, 2022 September 04, 2022 Next scheduled March 08, 2023 Presistent symptoms or side effects at completion of treatment: Yes: Diarrhea (Imodium); Difficultyemptying bladder Treatment Ongoing Additional treatment name Planned duration Possible Side effects Lupron Unknown- Per See Handout Follow-up Care Plan Schedule of clinical visits Coordinating Provider When/How often Dr. Michelle Lindsay Every 6 months x2 years, then once yearly. Dr. Tarik Jim Per Dr. Jim Cancer surveillance or other recommended related tests Coordinating Provider Test How Often Dr. Michelle Lindsay PSA (Prostate Specific Antigen) Every 6 months x2 years, then once yearly. Dr. Tarik Jim PSA (Prostate Specific Antigen) Per Dr. Jim Please continue to see your primary care provider for all general health care recommended for a (man) (women) your age, including cancer screening tests. Any symptoms should be brought to the attention of your provider: 1. Anything that represents a brand new symptom; 2. Anything that represents a persistent symptom; 3. Anything you are worried about that might be related to the cancer coming back. Possible late- and long-term effects that someone with this type of cancer and treatment may experience: Decreased sex drive, Enlarging breast tissue, Erectile dysfunction, Fatigue, Hair Loss, Hot flashes, Incontinence, Increased body fat, Loss of muscle mass, Metabolic syndrome (increased blood pressure, blood sugar, cholesterol), Mood swings, Osteoporosis, Painful urination, Rectal pain, Shorten ing of the penis, Skin irritation or darkening, Sterility, Tirdness, Trouble voiding or passing uring (urinary retention), and Urinary frequency Cancer survivors may experience issues with the areas listed below. If you have any concerns in these or other areas, please speak with your doctors or nurses to find out how you can get help with them: anxiety or depression , emotional or mental health, fatigue, fertility, financial advice or assistance, insurance, memory or concentration loss, parenting, physicial functioning, school/work, and sexual functioning A number of lifestyle/behaviors can affect your ongoing health, including the risk for the cancer coming back or developing another cancer. Discuss these recommendations with your doctor or nurse: alcohol use, diet, management of medications, management of other illnesses, physical activity, sun screen use, tobacco use/cessation, and weight management (loss/gain) Resources you may be interested in: www.cancer.net [employer].com [employer] Special Delivery Messenger Art therapy Support Groups- Contact [employer] for dates and times. Prepared by: Mary Iraheta APRN.CLIN NURSE SPEC Delivered on: January 05, 2023 - This Survivorship Care Plan is a cancer treatment summary and follow-up plan is provided to you to keep with your health care records and to share with your primary care provider. - This summary is a brief record of major aspects of your cancer treatment. You can share your copywith any of your doctors or nurses. However, this is not a detailed or comprehensive record of yourcare.
--- OUTSIDE RECORDS SUMMARY | 2025-10-31 08:55 | XMS_ITS | Clinical Summary ---
Author Organization [facility] Address [address] [place], [place] [address] Care Team Providers Care Gastrointestinal Technician Name Role Phone Tarik Jim MD Unavailable [phone] Elif Castano CNP Primary Care Provider [phone] Allergies No known active allergies Medications MedicationSigDispense QuantityRefillsLast FilledStart DateEnd DateStatus lisinopril (ZESTRIL, PRINIVIL) 10 mg tablet Take 10 mg by mouth.Active atorvastatin (LIPITOR) 10 mg tablet Take 10 mg by mouth once daily.01/13/2022ctive metoprolol tartrate, short acting, (LOPRESSOR) 50 mg tablet Take 50 mg by mouth two times a day.Active FLUTICASONE PROPIONATE NASAL Use in the nose.Active ibuprofen (MOTRIN) 800 mg tablet Take 1 tablet by mouth every 8 hours as needed for pain. 60 tablet ctive indomethacin (INDOCIN) 50 mg capsule take 1 capsule by mouth twice a day with food or milk for 14 days01/04/2023 Active tamsulosin (FLOMAX) 0.4 mg 1 capsule.09/04/2022ctive mirabegron (MYRBETRIQ) 50 mg Tb24 Take 100 mg by mouth./5Active Active Problems ProblemNoted DateDiagnosed DateProstate arrcix4601/05/2023 Social History Tobacco UseTypesPacks/DayYears UsedDateSmoking Tobacco: Every DayCigarettes0.5 48.5Started: 04/29/1977Smokeless Tobacco: Former Tobacco Cessation:Ready to Q uit: Not Asked; Counseling Given: Not Answered Alcohol UseStandard Drinks/WeekCommentsYes6 (1 standard drink = 0.6 oz pure alcohol)PHQ-2AnswerDate RecordedPHQ-2 wmgqj735rea Deprivation Index AnswerDate RecordedNational Score (1-100), lower number is lower risk88 07/06/2023State Score (1-10), lower number is lower zxzs02307/06/2023ata from: https://www.neighborhoodatlas.[facility]/. Last address used for o[address]/06/2023Sex and Gender InformationValueDate RecordedSex Assigned at BirthNot on fileLegal FnsSguj1103/03/2022 2:41 PM EDT Gender IdentityNot on fileSexual OrientationNot on file Last Filed Vital Signs Vital SignReadingTime TakenCommentsBlood Gldvqaos365/68001/23/2025 1:59 PM EST Terxv942901/23/2025 1:59 PM COPGnbvmfgxfst13.2 ??C (97.2 ??F)01/23/2025 1:59 PM ESTRespiratory Uurr524601/23/2025 1:59 PM ESTOxygen Wygtdmczom59%01/23/2025 1:59 PM ESTInhaled Oxygen Concentration--Kliiyf517.2 kg (229 lb 11.5 oz)01/23/2025 1:59 PM FJUAidqlb575.5 cm (5' 4.75 )03/11/2022 12:55 PM EDTBody Mass Index38.52 03/11/2022 12:55 PM EDT Plan of Treatment DateTypeDepartmentCare Team (Latest Contact Info)Xuxqsqkmpqb91/26/2026 10:00 AM ESTOffice Visit Radiation Oncology [address] [place] [address] [place] [address] Jhony Lindsay MD [address] [place] [address] [place] [address] 1 year follow upHealth MaintenanceDue DateLast DoneCommentsAnxiety Screening 1977Depression Vvechcesb15/26/1977Hepatitis C Ghzbjvmfd12/26/1977 DTaP,Tdap,Td Vaccine (1 - Tdap)1978CT Ygvdgkvoxxgn42/26/2004Cologuard (FIT-DNA)05/24/20041112Bdwacooveeq41/26/2004Colorectal Cancer Vmzpvhmxw95/26/2004 Fecal Occult Blood05/24/20041859Eeojfzitvnexp42/26/2004Shingrix Vaccine (1 of 2) 2009dvance Directive Vfpbpkzuet58/01/2025Medicare Advantage Annual Wellness Visit11/29/2024ovid-19 Vaccine ( season)2025 10/04/2024, 03/21/2021, 02/21/2021Influenza Vaccine (#1)511/04/2024, 10/02/2019, 09/26/2018, Additional history existsDiabetes Fkgwicrxg15/13/2028 04/10/2025, 03/07/2025, 03/06/2025, Additional history existsProstate Cancer Screening Eaobwsgfgt01, 09/06/2023, 02/16/2023, Additional history existsLipid Lldwnqaqk82, 01/06/2025, 06/23/2022 Abdominal Aortic Aneurysm MgxtdbaqqQcymivbfz70/08/2018Pneumococcal Vaccine: 50+ Xhtqjcwgi81/06/2024SV NpizlhpTzaolnlcu02/06/2024 Procedures Procedure NamePriorityDate/TimeAssociated DiagnosisCommentsPSA (OUTSIDE)Routine 01/10/2025 from Last 3 Months or Most Recently Relevant to Health Maintenance Results * PSA (OUTSIDE) (01/10/2025)ComponentValueRef RangeTest MethodAnalysis Time Performed AtPathologist SignaturePSA.0.5Specimen (Source)Anatomical Location / LateralityCollection Method / VolumeCollection TimeReceived TimeBLOOD SPECIMEN / Cpatemf5601/10/2025 Narrative Authorizing ProviderResult TypeResult StatusCcf ProviderLABORATORYFinal Result from Last 3 Months or Most Recently Relevant to Health Maintenance Insurance Care Teams Team MemberRelationshipSpecialtyStart DateEnd Date Elif Castano CNP [address] [place] [address] PCP - GeneralInternal Medicine01/05/23 Tarik Jim MD ReferringUrology03/03/[address] [address] 01/05/23
--- OUTSIDE RECORDS SUMMARY | 2025-10-31 08:55 | XMS_ITS ---
Author Organization [employer] tem Address [id number] [place] [address] Care Team Providers Care Wire Drawing Machine Tender Name Role Phone Services, [facility] Primary Care Provider Active Problems ProblemNoted DateDiagnosed DateChest pain5Chest pain, unspecified type 5BPH (benign prostatic hyperplasia)01/06/2025History of smoking 01/06/2025Ischemic ebupzkm87/07/2025Acquired hammer toe of left foot06/22/2022 Apikqtubu08/25/2022enign prostatic hyperplasia with urinary obstruction 2Chronic pain2Current every day oytkgh992Difficulty aenhiex8406/22/20227266Afqcccxwgbvz29/25/2022isorder of male genital qkrzue7606/22/2022 Vrtxfnwwtyhvsckfijrq29/25/2022rimary jvtsgxawzlqf71/25/2022PAD (peripheral artery disease)06/22/2022denocarcinoma of bxtiebrd79/25/4201Nyarnrxwy34/25/2022 Hhzrdsh61/24/2022BMI 40.0-44.9, adult08/30/2019 Current Treatment and Therapy Plans No current plan information found. Past Treatment and Therapy Plans No past plan information found. Lifetime Dose Tracking * ChemicalLifetime DoseAutomatic EntryManual HbpafIveagnaccat447 mGy0 pFc067 mGy mDAP33,200 mGy/cm20 mGy/cm233,200 mGy/vq6Wsnwsw Time1.6 minutes0 minutes1.6 minutes
--- OUTSIDE RECORDS SUMMARY | 2025-10-31 08:59 | XMS_ITS | CCD ---
Author Organization [facility] Care Team Providers Care Director Electrical Engineering Name Role Phone Adrian Castano CNP Primary Care Provider Leila Lambert MD Unavailable Leila LAMBERT Primary Care Physician Adrian Castano CNP Primary Care Provider [phone] Leila Lambert MD Unavailable NONE, XXXX Primary Care Physician Unavailab Leila Mckenna MD Unavailable Adrian Castano CNP Primary Care Provider LAMBERT ., DR DEE Admitting Unavailable LAMBERT ., DR DEE Attending Unavailable [facility] Unava ilable LAMBERT ., DR DEE Consulting Unavailable LEYVA, MICHELLE Consulting Unavailable ESPAÑA, KEVIN Consulting Unavailable [facility] Consulting Unava ilable LAMBERT ., DR DEE Admitting Unavailable LAMBERT ., DR DEE Attending Unavailable [facility] Unava ilable LAMBERT ., DR DEE Consulting Unavailable ENGDR ZAINAB MENDIETA Consulting Unavailable ZIEBER, DR KOBE Simpson Consulting Unavailable AGUBOSIM, JOSE Consulting Unavailable ROULA, ZOLTAN Consulting Unavailable LAMBERT ., DR DEE Admitting Unavailable LAMBERT ., DR DEE Attending Unavailable [facility] Unava ilable LAMBERT ., DR DEE Consulting Unavailable Asaad, Imad Unavailable Health DeptJosé Miguel Primary Care Provider MD Fred Kirk Attending Provider Adrian Castano CNP Primary Care Provider Yolette Warren MD Primary Care Provider KERRI BENITEZ Attending Unavailable BENITEZ, KERRI W Referring Unavailable [...] Unavailable LAMBERT, Leila R Attending Unavailable [place] Anjana OLIVER Attending Provider [phone] Leila LAMBERT Attending Unavailable Maricruz Johnson Admitting Unavailable Maricruz Johnson Attending Unavailable LAMBERT, Leila Simpson Admitting Unavailable LAMBERT, Leial Simpson Attending Unavailable LAMBERT, Leila R Attending Unavailable Services, [facility] Primary Care Provider Services, [facility] Primary Care Provider Adrian Castano CNP Primary Care Provider [phone] Anjana Dietz DPM Attending Provider Leila Lambert MD Attending Provider [phone] Anjana Dietz Admitting Unavailable Anjana Dietz Attending Unavailable Petra, Leila Admitting Unavailable Petra, Leila Attending Unavailable Services, [facility] Primary Care Provider HANK ENGLE Referring Unavailable SERVICES, [facility] Primary Care Unava ilable KERRI SHAH Attending Unavailable SERVICES, [facility] Unava ilable KERRI SHAH Attending Unavailable SERVICES, [facility] Primary Care Unava ilable RONY LUNA Admitting Unavailable RONY LUNA Referring Unavailable SERVICES, [facility] Primary Care Unava ilable [place], [facility] Unavailable CLARIBEL PACE Attending Unavailable CLARIBEL PACE Consulting Unavailable EDILIA DOAN Consulting Unavailable JIMMIE ESPINOZA Consulting Unavailable MANOJ, ALCIRA U Referring Unavailable SERVICES, [facility] Primary Care Unava ilable SERVICES, [facility] Primary Care Unava ilable FADI AVELAR Attending Unavailable Leila Lambert MD Unavailable [phone] Services, [facility] Primary Care Provider PETRA, LEILA Referring Unavailable ANGLIM, ADRIAN Primary Care Unavailable Jhony LUX Attending Unavailable Jhony LUX Referring Unavailable ANGLIM, ADRIAN Primary Care Unavailable LAMBERT, Leila Simpson Attending Unavailable LAMBERT, Leila Simpson Attending Unavailable ANAM, JERI Machuca Attending Unavailable LAMBERT, Leila R Attending Unavailable LAMBERT, Leila R Admitting Unavailable LAMBERT, Leila R Attending Unavailable LAMBERT, Leila Simpson Referring Unavailable LAMBERT, Leila Simpson Attending Unavailable LAMBERT, Leila Simpson Admitting Unavailable Lue, Maricruz Negron Admitting Unavailable Lue, Maricruz Negron Attending Unavailable LAMBERT, Leila Simpson Attending Unavailable LAMBERT, Leila Simpson Attending Unavailable LAMBERT, Leila Simpson Attending Unavailable LAMBERT, Leila Simpson Attending Unavailable LAMBERT, Leila Simpson Attending Unavailable LAMBERT, Leila Simpson Attending Unavailable LAMBERT, Leila Simpson Attending Unavailable LAMBERT, Leila R Attending Unavailable LAMBERT, Leila R Admitting Unavailable Services, [facility] Primary Care Provider SERVICES, [facility] Primary Care Unava ilable LEAH ARAMBULA Attending Unavailable SERVICES, [facility] Primary Care Unava ilable GLENNA COLLINS Consulting Unavailable ARANDA, ALCIRA U Admitting Unavailable DUANE SCHROEDER Attending Unavailable TRACY HILL Attending Unavailab le TRACY HILL Referring Unavailab le SERVICES, [facility] Primary Care Unava ilable ANJANA DIETZ Referring Unavailable SERVICES, [facility] Primary Care Unava ilable SERVICES, [facility] Primary Care Unava ilable TRACY HILL Attending Unavailab le SERVICES, [facility] Primary Care Unava ilable DUANE SCHROEDER Admitting Unavailable [facility], [facility] Consulting Unavailable ARANDA, ALCIRA U Attending Unavailable ANJANA DIETZ Referring Unavailable SERVICES, [facility] Primary Care Unava ilable JAMES POSADA Attending Unavailable SERVICES, [facility] Primary Care Unava ilable SERVICES, [facility] Primary Care Unava ilable LEAH ARAMBULA Attending Unavailable SERVICES, [facility] Unava ilable WILLIE JOHN Attending Unavailable NKADIIMMANUEL Attending Unavailable SERVICES, [facility] Primary Care Unava ilable SERVICES, [facility] Primary Care Unava ilable [facility], [facility] Consulting Unavai lable ALEXANDRE, MUHAMID M Admitting Unavailable DUANE SCHROEDER Attending Unavailable LEON, EHAD Consulting Unavailable TELESTROKE, [facility] Consulting UnavailMICHELLE Lira Attending Unavailable MICHELLE FOSTER Referring Unavailable SERVICES, [facility] Primary Care Unava ilable Allergies Allergy ClassificationReported Allergen(s)Allergy TypeDate of OnsetReaction(s) Facility (10 sources)CodeineDrug [id number] Work Phone: (10 sources)Guaifenesin-CodeineDrug Phiaznl57-20-6744[facility] (4 sources)No Known Medication Allergies; Translations: [No Known Medication Allergies]Propensity to adverse reactions (disorder)[facility] Repository (20 sources)Codeine / guaiFENesin; Translations: [CODEINE-GUAIFENESIN]Drug Avpwrmt17-78-6352[facility] Work Phone: (3 sources)Latex; Translations: [LATEX]Drug Dljpgit98-75-3207[facility] Medications Current Medications MedicationDrug Class(es)DatesSig (Normalized)Sig (Original)amiodarone hydrochloride 200 mg oral tablet (12 sources)AntiarrhythmicStart: 03-15-2025 End: 32-31-5193ufym 1 tablet by mouth in the morningamiodarone (PACERONE) 200 mg tablet Indications: Postoperative atrial fibrillation ([facility]) Take 1tablet (200 mg total) by mouth in the morning. 90 tablet 1 06/21/2025 ActiveStart: 03-07-2025 End: 62-34-9142pilb 2 tablets by mouth twice daily, then take 1 tablet by mouth once dailyamiodarone (PACERONE) 200 mg tablet Take 2 tablets (400 mg total) by mouth 2 (two) times a day for 5 days, THEN 1 tablet (200 mg total) daily for 30 days. 50 tablet 03/07/2025 03/15/2025 DiscontinuedAspirin (20 sources)Platelet Aggregation Inhibitor, Nonsteroidal Anti-inflammatory Drug Start: 54-46-2903Mfufzbt Low Dose mg, Daily, Refills(s) 0 Start Date: 08/13/25 Status: Ordered Repeat number: 1Start: 03-08-2025 End: 76-75-9460ihma 1 tablet by mouth in the morningaspirin 81 mg Indications: S/P CABG x 2 Take 1 tablet (81 mg total) by mouth in the morning. 30 tablet 11 04/10/2025 ActiveStart: 55-72-7836ggsr 1 tablet by mouth in the morningRA Aspirin EC 325 MG EC tablet Take 325 mg by mouth in the morning. 06/23/2022 Activeatorvastatin 40 mg oral tablet (20 sources)HMG-CoA Reductase InhibitorStart: 03-07-2025 End: 51-45-1469ynmt 1 tablet by mouth once dailyatorvastatin (LIPITOR) 40 mg tablet Indications: S/P CABG x 2 Take 1 tablet (40 mg total) by mouth nightly. 90 tablet 3 03/23/2025 ActiveStart: 20-20-5890ktrsnwllebso 10 mg Tab Refills(s) 0 Start Date: 03/08/23 Status: Ordered Repeat number: 1Start: 08-30-9748kkjy 0.5 tablet by mouth in the morningatorvastatin (LIPITOR) 20 mg tablet Take 0.5 tablets (10 mg total) by mouth in the morning. 0 03/01/2017 SuspendedComment on above:Take 10 mg by mouth once daily.bicalutamide 50 mg oral tablet (10 sources)Androgen Receptor InhibitorStart: 87-47-2810oiih 1 tablet by mouth once dailybicalutamide (CASODEX) 50 mg chemo tablet Take 1 tablet by mouth nightly 03/26/2025 ActiveStart: 03-26-2025 End: 71-83-0636vbqk 1 tablet by mouth every twenty-four hoursCasodex 50 mg Tab 50 mg = 1 tab(s), Oral, q24hr, X 90 day(s), # 90 tab(s), Refills(s) 3, Pharmacy: [facility] [id number], 160, cm, 03/26/25 9:43:00 EDT, Height/Length Dosing, 98, kg, 03/26/25 9:43:00 EDT, Weight Dosing Start Date: 03/26/25 Stop Date: 03/21/26 Status: Ordered Quantity: 90.0 Unit: tab(s) Repeat number: 4 Indications: Rising PSA following treatment for malignant neoplasm of prostate; Malignant neoplasm of prostate;cholecalciferol 1.25 mg oral capsule (4 sources)Vitamin DStart: 44-05-8051tvnp 1 tablet by mouth in the morning cholecalciferol (VITAMIN D3) 1,000 units tablet Take 1 tablet (1,000 Units total) by mouth in the morning. 30 tablet 2 10/04/2025 ActiveStart: 10-04-2025 take 1 capsule by mouth every weekcholecalciferol (VITAMIN D3) 50,000 units capsule Take 1 capsule (50,000 Units total) by mouth oncea week. 4 capsule 2 10/04/2025 Activeclopidogrel 75 mg oral tablet (11 sources)P2Y12 Platelet InhibitorStart: 06-24-2022 End: 86-35-2836qris 1 tablet by mouth in the morningclopidogrel (Plavix) 75 MG tablet Take 75 mg by mouth in the morning. 06/24/2022 Activecyclobenzaprine hydrochloride 10 mg oral tablet (20 sources)Muscle RelaxantStart: 02-20-2023 End: 95-52-0766uxilcbcoxecuzxc 10 mg Tab Refills(s) 0 Start Date: 03/08/23 Status: Ordereddicyclomine hydrochloride 20 mg oral tablet (15 sources)AnticholinergicStart: 52-18-8800jeui 1 tablet by mouth three times dailyDicyclomine 20 mg tablet Active 20 MG PO Three times daily June 22, 2024 3:02pm Take 1 tablet orally three times a day.Start: 03-01-2024 End: 38-56-5226gwgp 1 tablet by mouth twice dailyDicyclomine 20 mg tablet Discontinued 20 MG PO Three times daily June 22, 2024 1:54pm June 22, 2024 3:03pm Take 1 tablet orally twice a day.docusate sodium 50 mg / sennosides, alf 8.6 mg oral tablet (3 sources)Start: 03-07-2025 End: 05-16-1502dsnk 2 tablets by mouth in the morningsennosides-docusate sodium (SENOKOT-S) 8.6-50 mg Indications: constipation Take 2 tablets by mouth in the morning and 2 tablets before bedtime. Do all this for 14 days. Indications: constipation. 56 tablet 03/07/2025 03/21/2025 Activedoxycycline hyclate 100 mg oral capsule (20 sources)Tetracycline-class DrugStart: 05-17-2023 End: 97-04-6411hlig 1 capsule by mouth every twelve hoursdoxycycline hyclate 100 mg Cap 100 mg = 1 cap(s), Oral, q12hr, X 14 day(s), # 28 cap(s), Refills(s)0, Pharmacy: [facility] #[id number], 160, cm, 05/17/23 12:23:00 EDT, Height/Length Dosing, 107, kg, 05/17/23 12:23:00 EDT, Weight Dosing Start Date: 05/17/23 Stop Date: 05/31/23 Status: OrderedStart: 02-27-2022 End: 81-89-1547tvtv 1 capsule by mouth twice dailydoxycycline hyclate (VIBRAMYCIN) 100 mg capsule Take 100 mg by mouth twice daily. 02/27/2022 024 Discontinued (Discontinued by another Health Care Provider)Comment on above: Take 100 mg by mouth twice daily.famotidine 20 mg oral tablet (12 sources)Histamine-2 Receptor AntagonistStart: 80-15-5997eais 1 tablet by mouth once dailyfamotidine 20 mg Tab 20 mg = 1 tab(s), Oral, Daily Start Date: 09/17/25 Status: Ordered Repeat number: 1Start: 03-08-2025 End: 01-12-6450wpot 1 tablet by mouth in the morningfamotidine (PEPCID) 20 mg tablet Take 1 tablet (20 mg total) by mouth in the morning for 30 days. 30 tablet 03/08/2025 04/07/2025 Activefexofenadine hydrochloride 180 mg oral tablet (2 sources)Histamine-1 Receptor AntagonistStart: 07-77-9024mvzt 1 tablet by mouth in the morningfexofenadine (IRIS) 180 mg tablet Take 1 tablet (180 mg total) by mouth in the morning. 30 tablet 2 10/04/2025 Activefluticasone propionate 0.05 mg/actuat metered dose nasal spray (20 sources)CorticosteroidStart: 39-61-6660hxxy 2 spray(s) nasal route in the morningfluticasone propionate (FLONASE) 50 mcg/actuation nasal spray Administer 2 sprays into each nostrilin the morning. 11.1 mL 12 10/05/2025 ActiveStart: 01-05-2024 End: 52-61-5463Etycucsbzzx Furoate 100 mcg/actuation blister with device Discontinued 1 INH INHALATION Daily January 05, 2024 1:00am March 01, 2024 1:06pmFLUTICASONE PROPIONATE NASAL Use in the nose. ActiveFLUTICASONE PROPIONATE NASAL Use in the nose. 0 ActiveComment on above:Use in the nose.Fluticasone Furoate 27.5 MCG/SPRAY (1 source)Fluticasone Furoate 27.5 MCG/SPRAY 2 sprays (1 spray in each nostril) Nasally Once a day Activefurosemide 20 mg oral tablet (3 sources)Loop DiureticStart: 03-08-2025 End: 98-68-6737thaz 1 tablet by mouth once dailyfurosemide (LASIX) 20 mg tablet Take 1 tablet (20 mg total) by mouth daily for 14 days. 14 tablet 03/08/2025 03/22/2025 Activehyoscyamine sulfate 0.12 mg / methenamine 118 mg / methylene blue 10 mg / phenyl salicylate 36 mg /sodium phosphate, monobasic 40.8 mg oral capsule (3 sources)Oxidation-Reduction AgentStart: 50-48-1157Ttqrnx oral capsule 1 cap(s), Oral, BID, 60 cap(s), Refill(s) 1, [facility] #[id number], 160, cm, 07/15/22 8:09:00 EDT, Height/Length Dosing, 108, kg, 07/15/22 8:09:00 EDT, Weight Dosing Start Date: 07/15/22Status: Orderedibuprofen 800 mg oral tablet (20 sources)Nonsteroidal Anti-inflammatory DrugStart: 32-74-1138qdku 1 tablet by mouth twice daily for painibuprofen 800 MG tablet take 1 tablet by mouth twice a day if needed for pain take with food 05/21/2022 ActiveStart: 06-08-2021 End: 99-05-7188jeob 1 tablet by mouth every eight hours as neededibuprofen (MOTRIN) 800 mg tablet Take 1 tablet by mouth every 8 hours as needed for pain. 60 tablet2 03/31/2022 ActiveComment on above:Take 800 mg by mouth.Take 1 tablet by mouth every 8 hours as needed for pain.indomethacin 50 mg oral capsule (14 sources)Nonsteroidal Anti-inflammatory DrugStart: 01-04-2023 End: 50-92-8315uvmd 1 capsule by mouth twice daily at mealtimeindomethacin (INDOCIN) 50 mg capsule take 1 capsule by mouth twice a day with food or milk for 14 days 01/04/2023 ActiveComment on above:take 1 capsule by mouth twice a day with food or milk for 14 dayslidocaine 0.05 mg/mg medicated patch (11 sources)Antiarrhythmic, Amide Local AnestheticStart: 02-20-2023 End: 39-29-5291kcijl 1 dose transdermal route once dailylidocaine (Lidoderm) 5 % patch Place 1 patch on the skin 1 (one) time each day at the same time. Activelisinopril 10 mg oral tablet (20 sources)Angiotensin Converting Enzyme InhibitorStart: 31-28-4155qagdwimdot 10 mg Tab Refills(s) 0 Start Date: 03/08/23 Status: Ordered Repeat number: 1 Comment on above:Take 10 mg by mouth.meclizine hydrochloride 25 mg oral tablet (13 sources)AntiemeticStart: 27-49-6733ngzb 1 tablet by mouth three times daily as needed for dizzinessmeclizine (ANTIVERT) 25 mg tablet Take 1 tablet (25 mg total) by mouth 3 (three) times a day as needed for dizziness. 30 tablet 10/04/2025 ActiveStart: 00-51-6377xmso 1 tablet by mouth three times daily meclizine (Antivert) 25 MG tablet take 1 tablet by mouth three times a day if needed for 10 days 08/20/2022 ActiveStart: 09-07-2020 End: 02-17-1956apudlkopd (ANTIVERT) 25 mg tablet Chew 1 tablet (25 mg total) and swallow 3 (three) times a day as needed for dizziness. 30 tablet 09/07/2020 08/23/2024 Discontinued (Therapy completed)methenamine hippurate 1000 mg oral tablet (1 source)Start: 06-09-2023 End: 67-89-2282deaq 1 tablet by mouth twice dailymethenamine hippurate 1 g oral tablet 1 gm = 1 tab(s), Oral, BID, X 30 day(s), # 60 tab(s), Refills(s) 1, Pharmacy: [facility] #[id number], 160, cm, 05/17/23 12:23:00 EDT, Height/Length Dosing, 107, kg, 05/17/23 12:23:00 EDT, Weight Dosing Start Date: 06/09/23 Stop Date: 08/08/23 Status: Orderedmetoprolol tartrate 25 mg oral tablet (20 sources)beta-Adrenergic BlockerStart: 60-61-3226zsfm 1 tablet by mouth once dailyLopressor 25 mg oral tablet 25 mg = 1 tab(s), Oral, Daily Start Date: 09/17/25 Status: Ordered Repeat number: 1Start: 03-07-2025 End: 09-12-0719nezd 1 tablet by mouth in the morning, then take 1 tablet by mouth at bedtimemetoprolol tartrate (LOPRESSOR) 25 mg tablet Take 1 tablet (25 mg total) by mouth in the morning and 1 tablet (25 mg total) before bedtime. Do all this for 30 days. 180 tablet 2 03/23/2025 5ActiveStart: 01-05-2024 take 1 tablet by mouth once dailyMetoprolol Tartrate 50 mg tablet Active 50 MG PO Daily January 05, 2024 1:00amStart: 77-75-2593mqsc 1 tablet by mouth twice dailyMetoprolol tartrate 50 mg Tab 180 EA, take 1 tablet by mouth twice a day, Refills(s) 0 Start Date: 12/22/21 Status: Ordered Repeat number: 1metoprolol tartrate (Lopressor) 50 MG tablet every 12 (twelve) hours. ActiveComment on above:Take 50 mg by mouth.24 hr mirabegron 50 mg extended release oral tablet (20 sources)beta3-Adrenergic AgonistStart: 03-26-2025 End: 44-50-3817ptxf 1 tablet by mouth once dailyMyrbetriq 50 mg oral tablet, extended release 50 mg = 1 tab(s), Oral, Daily, X 90 day(s), # 90 tab(s), Refills(s) 3, Pharmacy: [facility] [id number], 160, cm, 03/26/25 9:43:00 EDT, Height/Length Dosing, 98, kg, 03/26/25 9:43:00 EDT, Weight Dosing Start Date: 03/26/25 Stop Date: 03/21/26 Status: Ordered Quantity: 90.0 Unit: tab(s) Repeat number: 4 Indications: Urge incontinence;Start: 12-01-2024 End: 07-72-4384oyzhcztula (MYRBETRIQ) 50 mg Tb24 Take 100 mg by mouth. 12/01/2024 11/26/2025 ActiveStart: 10-16-2024 End: 41-69-0196auwm 2 tablets by mouth once daily, then take 2 tablets by mouth once dailyMyrbetriq 50 mg oral tablet, extended release 100 mg = 2 tab(s), Oral, Daily, 100mg daily., X 90 day(s), # 180 tab(s), Refills(s) 3, Pharmacy: [facility] [id number], 165, cm, 09/17/25 9:49:00 EDT,Height/Length Dosing, 112, kg, 09/17/25 9:49:00 EDT, Weight Dosing Start Date: 09/17/25 Stop Date: 09/12/26 Status: Ordered Quantity: 180.0 Unit: tab(s) Repeat number: 4 Indications: Urge incontinence;Start: 07-73-6285cqhc 1 tablet by mouth every twenty-four hours in the morningMYRBETRIQ 50 mg tablet extended release 24 hr Take 1 tablet (50 mg total) by mouth in the morning. 01/20/2024 ActiveStart: 03-08-2023 End: 07-27-7301oecw 1 tablet by mouth once dailyMirabegron (Myrbetriq) 50 mg tablet extended release 24 hr Discontinued 50 MG PO Daily January 05, 2024 1:00am March 01, 2024 1:07pmComment on above:Take 50 mg by mouth.naproxen 500 mg delayed release oral tablet (20 sources)Nonsteroidal Anti-inflammatory DrugStart: 02-20-2023 End: 21-81-9536nllc 1 tablet by mouth in the morningnaproxen (EC Naprosyn) 500 MG EC tablet Take 500 mg by mouth in the morning and 500 mg in the evening. Take with meals. 02/20/2023 ActiveStart: 12-49-2718jmpr 1 tablet by mouth every twelve hours as needed for painnaproxen 500 mg Tab 12 EA, take 1 tablet by mouth every 12 hours NEEDED FOR PAIN TAKE WITH FOOD OR MILK, Refills(s) 0 Start Date: 12/22/21 Status: Bklrggm93 hr oxybutynin chloride 10 mg extended release oral tablet (10 sources)Cholinergic Muscarinic AntagonistStart: 65-80-3074scze 1 tablet by mouth every twenty-four hours in the morningoxybutynin XL (Ditropan-XL) 10 MG 24 hr tablet Take 10 mg by mouth in the morning. 06/01/2022 ActiveoxyCODONE hydrochloride 5 mg oral tablet (2 sources)Opioid AgonistStart: 03-07-2025 End: 49-28-7220ijpw 1 tablet by mouth every six hours as needed for pain oxyCODONE (ROXICODONE) 5 mg immediate release tablet Indications: S/P CABG x 2 , Chest pain, unspecified type Take 1 tablet (5 mg total) by mouth every 6 (six) hours as needed for pain for up to 7 days. Max Daily Amount: 20 mg 28 tablet 03/07/2025 03/14/2025 Activepolyethylene glycol 3350 79681 mg powder for oral solution (3 sources)Osmotic LaxativeStart: 03-08-2025 End: 99-32-7217edenfdvbiqfx glycol (GLYCOLAX) 17 gram packet Take 17 g by mouth in the morning for 14 days. 14 packet 03/08/2025 03/22/2025 Activesod sulf-pot chloride-mag sulf 1.479-0.188- 0.225 gram tablet (2 sources)Start: 20-31-3143abq sulf-pot chloride-mag sulf 1.479-0.188- 0.225 gram tablet Indications: Diarrhea, unspecified type Please see instructional sheet given by physicians office. 24 tablet 08/23/2024 Activetamsulosin hydrochloride 0.4 mg oral capsule (20 sources)alpha-Adrenergic BlockerStart: 94-51-4382kzzf 1 capsule by mouth once dailytamsulosin (FLOMAX) 0.4 mg capsule Take 1 capsule (0.4 mg total) by mouth nightly. 10/05/2025 ActiveStart: 56-09-8677jznjaxamhr (FLOMAX) 0.4 mg 1 capsule. 09/04/2022 ActiveStart: 37-28-9757yzxh 1 capsule by mouth twice daily tamsulosin 0.4 mg Cap 0.4 mg = 1 cap(s), Oral, BID, # 180 cap(s), Refills(s) 3, Pharmacy: [facility] [id number], 160, cm, 10/16/24 12:19:00 EST, Height/Length Dosing, 117, kg, 10/16/24 12:19:00 EST, Weight Dosing Start Date: 11/20/24 Status: Ordered Quantity: 180.0 Unit: cap(s) Repeat number: 4Comment on above:1 capsule.vitamin b12 1 mg sublingual tablet (2 sources)Vitamin W10Ngwnf: 40-78-4311ifhc 1 tablet under the tongue in the morningcyanocobalamin (VITAMIN B12) 1,000 mcg tablet, sublingual Place 1 tablet (1,000 mcg total) under the tongue in the morning. 30 tablet 2 10/04/2025 Active Completed/Discontinued Medications MedicationDrug Class(es)DatesSig (Normalized)Sig (Original)24 hr alfuzosin hydrochloride 10 mg extended release oral tablet (20 sources)alpha-Adrenergic BlockerStart: 02-23-2022 End: 02-48-5316qhpa 1 tablet by mouth once daily, then take 1 tablet by mouth every twenty-four hoursalfuzosin SR (UROXATRAL) 10 mg 24 hr tablet Take 10 mg by mouth once daily. 02/23/2022 01/04/2024 Discontinued (Discontinued by another Health Care Provider)Comment on above:Take 10 mg by mouth once daily.amoxicillin 875 mg / clavulanate 125 mg oral tablet (1 source)Penicillin-class AntibacterialStart: 01-08-2025 End: 09-00-0147sskv 1 tablet by mouth once in the morningamoxicillin-pot clavulanate (AUGMENTIN) 875-125 mg per tablet Take 1 tablet by mouth in the morningand 1 tablet before bedtime. Do all this for 7 days. 14 tablet 01/08/2025 01/16/2025 Discontinued (Therapy completed)atropine sulfate 0.025 mg / diphenoxylate hydrochloride 2.5 mg oral tablet (20 sources)Anticholinergic, Cholinergic Muscarinic Antagonist, Antidiarrheal Start: 11-25-2021 End: 76-87-1741aiot 1 tablet by mouth twice daily for diarrheadiphenoxylate- atropine (LOMOTIL) 2.5-0.025 mg per tablet take 1 tablet by mouth twice a day if needed for diarrhea 11/25/2021 01/04/2024 Discontinued (Discontinued by another Health Care Provider)Comment on above:take 1 tablet by mouth twice a day if needed for diarrheaciprofloxacin 500 mg oral tablet (4 sources)Quinolone AntimicrobialStart: 29-25-7598eibr 1 tablet by mouth once dailyCipro 500 mg Tab 500 mg = 1 tab(s), Oral, Daily, Take 1 tablet the day before the procedure and 1 tablet after the procedure, # 2 tab(s), Refills(s) 0, Pharmacy: [facility] [id number], 160, cm, 03/26/25 9:43:00 EDT, Height/Length Dosing, 98, kg, 03/26/25 9:43:00 EDT, Weight Dosing Start Date: 08/03/25 Status: Ordered Quantity: 2.0 Unit: tab(s) Repeat number: 1Start: 63-58-7727oexb 1 tablet by mouth once dailyCipro 500 mg Tab 500 mg = 1 tab(s), Oral, Daily, take one tab day before procedure and one tab after procedure, # 2 tab(s), Refills(s) 0, Pharmacy: [facility] [id number], 160, cm, 01/15/25 11:42:00 EST, Height/Length Dosing, 104.3, kg, 01/15/25 11:42:00 EST, Weight Dosing Start Date: 01/15/25 Status: OrderedImmodium A-D 2 mg Cap (1 source)Start: 80-57-4521rxez 1 capsule by mouth once dailyImmodium A-D 2 mg Cap 30 EA, take 1 capsule by mouth daily, Refills(s) 0 Start Date: 12/22/21 Status: Orderedloperamide hydrochloride 2 mg oral capsule (7 sources)Opioid AgonistStart: 12-22-2021 End: 96-26-5269hggjtkvvgo (IMODIUM) 2 mg cap(s) Take by mouth. 12/22/2021 01/23/2025 Discontinued (Discontinued byPatient)Comment on above:Take by mouth. 24 hr nicotine 0.875 mg/hr transdermal system (1 source)Cholinergic Nicotinic AgonistStart: 06-23-2022 End: 44-77-2271wccvi 1 dose transdermal route every hour in the morningnicotine (NICODERM CQ) 21 mg/[address] 1 patch on the skin in the morning. 7 patch 06/23/2022 08/23/2024 Discontinued (Therapy completed) Problems Active Problems Problem ClassificationProblemDateDocumented DateEpisodic/ChronicAcquired foot deformities (18 sources)Acquired hammer toe of left foot; Translations: [Other hammer toe(s) (acquired), left foot]Onset: 578570-18-5847RbdmxkbMjvkk cerebrovascular disease (1 source)Cerebral infarction, unspecified; Translations: [Cerebral infarction, unspecified]Onset: 03-26-6525TxlbmdkEaolm cerebrovascular disease (1 source)Acute cerebrovascular diseaseOnset: 28-58-6048Xmemoa of prostate (20 sources)Malignant tumor of prostate; Translations: [Malignant neoplasm of prostate]Onset: 63-21-2125CtlfvvaIicytcf dysrhythmias (2 sources)Atrial fibrillation; Translations: [Unspecified atrial fibrillation] Onset: 329762-15-2650IcjyzifIlsnpehryh associated with dizziness or vertigo (20 sources)Vertigo; Translations: [Dizziness and giddiness]Onset: 06-21-2022 85-02-5328IinbbkwvVajhxbyv atherosclerosis and other heart disease (3 sources)Coronary arteriosclerosis; Translations: [Atherosclerotic heart disease of robinson coronary artery with unstable angina pectoris]Onset: 696378-44-0349ImyvqkqTxanyeroq of lipid metabolism (20 sources)Hypercholesterolemia; Translations: [Hyperlipidemia, unspecified] Onset: 524783-24-4369KntkfgmWyiinncyk hypertension (20 sources)Hypertensive disorder; Translations: [Essential (primary) hypertension]Onset: 760396-55-0504IbplytbGgsyyhahezjbp symptoms and ill- defined conditions (20 sources)Urge incontinence; Translations: [Urge incontinence of urine]Onset: 30-15-2080NjbnckdCgjregtlewpue symptoms and ill-defined conditions (20 sources)Dysuria; Translations: [Dysuria]Onset: 15-30-3689KdsziluzFnqkaaywmrz of prostate (20 sources)Benign prostatic hypertrophy with outflow obstruction; Translations: [Prostate nodule]Onset: 606545-48-4190VhjidvxFnztcsvanu infection (1 source)Viral gastroenteritis; Translations: [Viral intestinal infection, unspecified]51-16-7502XyodhndbRrgibc and vomiting (1 source)NauseaOnset: 83-85-4257EvmdkmrvKckgqqlxpvwsb gastroenteritis (2 sources)Chronic diarrhea; Translations: [Noninfective gastroenteritis and colitis, unspecified]EpisodicNonmalignant breast conditions (1 source)Gynecomastia; Translations: [Hypertrophy of breast]06-94-2997Wnriggse Osteoarthritis (20 sources)Arthritis; Translations: [Unspecified osteoarthritis, unspecified site]Onset: 008471-28-4447TrxijjaHqlrr connective tissue disease (4 sources)Enthesopathy of lower limb; Translations: [Other enthesopathy of left foot and ankle]14-62-7487LmavguzhMcxrv connective tissue disease (8 sources)Synovitis and tenosynovitis; Translations: [Other synovitis and tenosynovitis, left ankle and foot]65-47-1487XqtnqepkYpeki gastrointestinal disorders (4 sources)Irritable bowel syndrome; Translations: [Irritable bowel syndrome without diarrhea]37-15-6733JzajotkPbeih gastrointestinal disorders (1 source)Irritable bowel syndrome without diarrhea; Translations: [Irritable bowel syndrome]37-27-6904KrxlforAlhmv male genital disorders (1 source)Hydrocele of testis; Translations: [Hydrocele, unspecified]Onset: 03-55-9388WjlsszjfLkkxo male genital disorders (1 source)Hydrocele, unspecified; Translations: [HYDROCELE UNSPECIFIED]Onset: 76-03-3187VsjqqktnQvisg male genital disorders (5 sources)H/O: male genital disorder; Translations: [Personal history of other diseases of male genital organs]Onset: 10-04-2076NknoyaoyFevfo male genital disorders (12 sources)History of iwleppsvwwv82-39-5289KoulaustTckqo nervous system disorders (20 sources)Difficulty walking; Translations: [Difficulty in walking, not elsewhere classified]Onset: 777469-06-5368SxugnhaIwtzw nervous system disorders (18 sources)Chronic pain; Translations: [Other chronic pain]Onset: 06-22-2022 12-07-1503UbptuicBjskh non-traumatic joint disorders (2 sources)Arthritis of left ycmam79-26-7867BimegviGmqry non-traumatic joint disorders (8 sources)Chronic ankle pain; Translations: [Pain in left ankle and joints of left foot]58-55-1542VtydgednYizmk nutritional; endocrine; and metabolic disorders (18 sources)Body mass index 40+ - severely obese; Translations: [Body mass index (BMI) 40.0-44.9, adult]Onset: 408149-62-1211YxpebidLqprj screening for suspected conditions (not mental disorders or infectious disease) (14 sources)Elevated prostate specific antigen [PSA]; Translations: [Raised prostate specific antigen]Onset: 89-96-8075SdwscmcaUnxkqimgfj and visceral atherosclerosis (20 sources)Peripheral vascular disease; Translations: [Peripheral vascular disease, unspecified]Onset: 035424-49-2769HjmibezNtrxeexlr-skabkdt disorders (19 sources)Nicotine dependence, cigarettes, uncomplicated; Translations: [Smokes tobacco daily]Onset: 146653-14-9529HeiibpxVuvtquppnjsx (15 sources)Finding of sensation of -52-9634Agqegcignsor (1 source)Urinary Catheter Insertion or CheckOnset: 01-82-5754Smaobwfaeyet (1 source)EMSOnset: 01-02-2025 Past or Other Problems Problem ClassificationProblemDateDocumented DateEpisodic/ChronicAbdominal pain (7 sources)Abdominal pain; Translations: [Unspecified abdominal pain]Onset: 645417-53-6484QaygizscXnpqvn of prostate (3 sources)History of malignant neoplasm of prostate; Translations: [Personal history of malignant neoplasm ofprostate]Onset: 522875-57-0592Qpjmhbkn Complication of device; implant or graft (1 source)Breakdown (mechanical) of other urinary catheter, initial encounter; Translations: [Breakdown (mechanical) of other urinary catheter, initial encounter]Onset: 79-45-7819UhcmimxyPrhqfjxirxbbd of surgical procedures or medical care (4 sources)Atrial fibrillation; Translations: [Other postprocedural complications and disorders of the circulatory system, not elsewhere classified] Onset: 570787-30-7375HndajmixTyhvjghk atherosclerosis and other heart disease (2 sources)Presence of aortocoronary bypass graft; Translations: [Presence of aortocoronary bypass graft]Onset: 20-75-8513CiayomkdEpgxhioiwutznyxc hemorrhage (1 source)Rectal hemorrhageOnset: 76-87-2510WdbsunomAqhzgkoxtxps conditions of male genital organs (20 sources)Epididymitis; Translations: [Epididymitis]Onset: 06-22-2022 84-36-5955AvzvtrhuActe disorders (14 sources)Mood disordersOnset: 871445-71-1825Gkqcrswrwnh chest pain (20 sources)Chest pain; Translations: [Chest pain, unspecified]Onset: 02-24-2025 19-26-5826BktihjrjUvxgr gastrointestinal disorders (6 sources)Diarrhea; Translations: [Diarrhea, unspecified]Onset: 08-23-2024 36-38-5766XqkuzyyoZoglo gastrointestinal disorders (4 sources)Diarrhea, unspecified; Translations: [Diarrhea]Onset: 08-23-2024 02-96-8594PqefvjmmEsgxi gastrointestinal disorders (1 source)Urgent desire for stool; Translations: [Fecal urgency]08-23-2024 EpisodicOther gastrointestinal disorders (1 source)Fecal urgency; Translations: [Fecal urgency]Onset: 65-54-4018Leukldee Other male genital disorders (20 sources)Disorder of male genital organ; Translations: [Disorder of male genital organs, unspecified]Onset: 432370-14-2151GugloygaVhbzawiza and history of mental health and substance abuse codes (15 sources)Tobacco use and exposure - finding; Translations: [Personal history of nicotine dependence]Onset: 646212-15-9660Seddnzbq Results Test NameValueInterpretationReference RangeFacilityDEACONESS HEALTH SYSTEM WITH AUTO DIFFERENTIALon 73-01-3745DNJARQWUD ABSOLUTE COUNT BY AUTOMATED COUNT0.0 X10^9/LNormal0.0-0.2 [facility] on above:Performed By: #### 3040-3, CMP, CBCA #### [facility] ([id number]) [address] [place] [address] 37818CIXGRVAXZ RELATIVE PERCENT BY AUTOMATED COUNT0.9 %Normal Memorial HospitalComment on above:Performed By: #### 3040-3, CMP, CBCA #### [facility] ([id number]) [address] [place] [address] 12214NJGXNPEEDEM DIFFERENTIAL TYPEAUTOMATED DIFFERENTIALNormal Memorial HospitalComaspirus [facility] on above:Performed By: #### 3040-3, CMP, CBCA #### [facility] ([id number]) [address] [place] [address] 13252Nvodarbsjzg (Bld) [#/Vol]0.1 10*3/uLNormal0.0-0.4[facility] Hospitalca [facility] Mary Medical CenterComment on above:Performed By: #### 3040-3, CMP, CBCA #### [facility] ([id number]) [address] [place] [address] 31861OYHYTFUIGVX RELATIVE PERCENT BY AUTOMATED COUNT3.5 %Normal Memorial HospitalComment on above:Performed By: #### 3040-3, CMP, CBCA #### [facility] ([id number]) [address] [place] [address] 11429Ygncqcisrcp distribution width (RBC) [Ratio]13.2 %Trqskf95.5-15 Memorial HospitalComment on above:Performed By: #### 3040-3, CMP, CBCA #### [facility] ([id number]) [address] [place] [address] 55802Sckrflmfau (Bld) [Volume fraction]37.0 %Rjs01-80LruThptjmMemorial HospitalComment on above:Performed By: #### 3040-3, CMP, CBCA #### [facility] ([id number]) [address] [place] [address] 75945Xdhhtbvjas (Bld) [Mass/Vol]13.0 g/pKCjeknn36-45VhmArwfqfSt. Joseph Health College Station HospitalComment on above:Performed By: #### 3040-3, CMP, CBCA #### [facility] ([id number]) [address] [place] [address] 25079Jxfojytznvu (Bld) [#/Vol]0.8 10*3/uLLow1.0-3.5ProMedica St. Mary Medical CenterComment on above:Performed By: #### 3040-3, CMP, CBCA #### [facility] ([id number]) [address] [place] [address] 28421HKJJQJINESW RELATIVE PERCENT BY AUTOMATED COUNT20.8 %Normal Memorial HospitalComment on above:Performed By: #### 3040-3, CMP, CBCA #### [facility] ([id number]) [address] [place] [address] 03340UVA (RBC) [Entitic mass]31.7 loVvwanv12-17EsrXwlitmMemorial HospitalComment on above:Performed By: #### 3040-3, CMP, CBCA #### [facility] ([id number]) [address] [place] [address] 23779PTOG (RBC) [Mass/Vol]35.2 g/kVJwozbx93-60GcnCsgkygSt. Joseph Health College Station HospitalComment on above:Performed By: #### 3040-3, CMP, CBCA #### [facility] ([id number]) [address]LO[address] [place], [place] [address]FAJ (RBC) [Entitic vol]90 lZAxkjku40-005HjlXblnmfMemorial HospitalComment on above:Performed By: #### 3040-3, CMP, CBCA #### [facility] ([id number]) [address] [place] [address] 46664Wicrauehk (Bld) [#/Vol]0.4 10*3/uLNormal0.0-0.9Memorial HospitalComment on above:Performed By: #### 3040-3, CMP, CBCA #### [facility] ([id number]) [address] [place] [address] 48918FHLYMJRRS RELATIVE PERCENT BY AUTOMATED COUNT10.4 %Normal [facility] HospitalComasp[facility] on above:Performed By: #### 3040-3, CMP, CBCA #### [facility] ([id number]) [address] [place] [address] 17962YLHWAQBRPZP ABSOLUTE COUNT BY AUTOMATED COUNT2.5 X10^9/LNormal 1.5-6.6Mem[facility] HospitalComaspirus [facility] on above:Performed By: #### 3040-3, CMP, CBCA #### [facility] ([id number]) [address] [place] [address] 33310UTITLJHIJRY RELATIVE PERCENT BY AUTOMATED COUNT64.4 %Normal [facility] HospitalCom[facility] on above:Performed By: #### 3040-3, CMP, CBCA #### [facility] ([id number]) [address] [place] [address] 40632Digbjskd mean volume (Bld) [Entitic vol]7.9 fLNormal7-12 [facility] HospitalComasp[facility] on above:Performed By: #### 3040-3, CMP, CBCA #### [facility] ([id number]) [address] [place] [address] 94356Gnudmdusm (Bld) [#/Vol]131 10*3/gTOdf739-771UahWvnpxiSt. Joseph Health [facility] Station HospitalComment on above:Performed By: #### 3040-3, CMP, CBCA #### [facility] ([id number]) [address] [place] [address] 58355YST COUNT4.10 X10^12/LNormal4.1-5.7[facility] Comment on above:Performed By: #### 3040-3, CMP, CBCA #### [facility] ([id number]) [address] [place] [address] 01114HCS (Bld) [#/Vol]3.9 10*3/uLLow4-11[facility] Comment on above:Performed By: #### 3040-3, CMP, CBCA #### [facility] ([id number]) [address] [place] [address] 87159ZZRWEBHTXOCCV METABOLIC PANELon 77-71-7607Tkoxrxz [Mass/Vol]3.6 g/dLNormal3.2-5.3PThe Bellevue HospitalComment on above:Performed By: #### 3040-3, CMP, CBCA #### [facility] ([id number]) [address] [place] [address] 64039OLG [Catalytic activity/Vol]59 U/QWeyudn40-841CzmRtopatSt. Joseph Health [facility] Station HospitalComment on above:Performed By: #### 3040-3, CMP, CBCA #### [facility] ([id number]) [address] [place] [address] 32964XXS [Catalytic activity/Vol]18 U/LNormal<=40Memorial HospitalComment on above:Performed By: #### 3040-3, CMP, CBCA #### [facility] ([id number]) [address] [place] [address] 42140Nfdyn gap [Moles/Vol]9 mmol/LNormal5-15Memorial HospitalComment on above:Performed By: #### 3040-3, CMP, CBCA #### [facility] ([id number]) [address] [place] [address], [place] [address]JYR [Catalytic activity/Vol]15 U/LNormal<=41ProSt. Joseph Health College Station HospitalComment on above:Performed By: #### 3040-3, CMP, CBCA #### [facility] ([id number]) [address] [place] [address], [place] [address]Dlbnshdwg [Mass/Vol]1.0 mg/dLNormal0.3-1.2PThe Bellevue HospitalComment on above:Performed By: #### 3040-3, CMP, CBCA #### [facility] ([id number]) [address] [place] [address], [place] [address]Rfqhulc [Mass/Vol]8.8 mg/dLNormal8.5-10.5PThe Bellevue HospitalComment on above:Performed By: #### 3040-3, CMP, CBCA #### [facility] ([id number]) [address] [place] [address], [place] [address]Qjgoyrrr [Moles/Vol]105 mmol/KNdnbcg01-086RpoRowgrfSt. Joseph Health [facility] HospitalComment on above:Performed By: #### 3040-3, CMP, CBCA #### [facility] ([id number]) [address] [place] [address], [place] [address]UL3 [Moles/Vol]24 mmol/ZMbltxg88-40PvkTvkpxhThe [facility] Hospital Comment on above:Performed By: #### 3040-3, CMP, CBCA #### [facility] ([id number]) [address] [place] [address], [place] [address]Xuhtmsqiam [Mass/Vol]1.18 mg/dLNormal0.70-1.20ProSt. Joseph Health College Station HospitalComment on above:Result Comment: METHOD TRACEABLE TO IDMS STANDARD Performed By: #### 3040-3JUSTIN, MKA #### [facility] ([id number]) [address] [place] [address] 87181ZYJ/1.73 sq M.predicted among non-blacks MDRD (S/P/Bld) [Vol rate/Area]68 mL/min/{1.73_m2}Normal>=60ProSt. Joseph Health College Station HospitalComment on above:Result Comment: eGFR not reported due to non-numeric value for Creatinine. Reported eGFR is based on the CKD-EPI 2020 equation that does not use a race coefficient.Performed By: #### 3040-3JUSTIN, ELKE #### [facility] ([id number]) [address] [place] [address] 78910Snxcnbz [Mass/Vol]189 mg/xCDwjn76-03PfvWuuxbvMemorial Hospital Comment on above:Performed By: #### 3040-3JUSTIN, CBCAbram #### [facility] ([id number]) [address] [place] [address] 40428Icyizawum [Moles/Vol]3.9 mmol/LNormal3.5-5.0ProSt. Joseph Health [facility] Station HospitalComment on above:Performed By: #### 3040-3JUSTIN, CBCA #### [facility] ([id number]) [address] [place] [address] 76542Orbtqme [Mass/Vol]6.1 g/dLNormal6.0-8.0ProSt. Joseph Health College Station HospitalComment on above:Performed By: #### 3040-3JUSTIN, CBCA #### [facility] ([id number]) [address] [place] [address] 44723Jsvznl [Moles/Vol]138 mmol/KHbzpme548-806HxlCicuvx [facility]ont HospitalComment on above:Performed By: #### 3040-3, JUSTIN, CBCA #### [facility] ([id number]) [address] [place] [address] [place] [address]Erjq nitrogen [Mass/Vol]17 mg/dLNormal5-27Memorial HospitalComment on above:Performed By: #### 3040-3, CMP, CBCA #### [facility] ([id number]) [address] [place] [address] 84166NCLKBIDSLij 68-67-9939Zsehnvnpj [Mass/Vol]1.8 mg/dLNormal 1.8-2.6ProSt. Joseph Health College Station HospitalComment on above:Performed By: #### 3040-3, CMP, CBCA #### [facility] ([id number]) [address] [place] [address] 59728UX RETROPERITONEAL LIMITEDon 59-38-1962AU RETROPERITONEAL LIMITEDUS RETROPERITONEAL LIMITED ULTRASOUND RETROPERITONEUM INDICATION: Right-sided flank tenderness. COMPARISON: [...] by Vernon Ceballos MD on 10/05/2025 12:34 PMNormalProCHRISTUS Mother [facility] WITH AUTO DIFFERENTIALon 81-06-5043OMXQSBIBS ABSOLUTE COUNT BY AUTOMATED COUNT0.0 X10^9/LNormal0.0-0.2ProMed[facility] St. Mary Medical CenterComment on above:Performed By: #### 3040-3, CMP, CBCA #### [facility] ([id number]) [address] [place] [address] 72576MQIJTANMB RELATIVE PERCENT BY AUTOMATED COUNT0.8 %Normal Pro[facility]. Mary Medical CenterComment on above:Performed By: #### 3040-3, CMP, CBCA #### [facility] ([id number]) [address] [place], [place] [address]OPJETTBCZJY DIFFERENTIAL TYPEAUTOMATED DIFFERENTIALNormal Memorial HospitalComment on above:Performed By: #### 3040-3, CMP, CBCA #### [facility] ([id number]) [address] [place] [address] 94141Oakakescczp (Bld) [#/Vol]0.1 10*3/uLNormal0.0-0.4Memorial HospitalComment on above:Performed By: #### 3040-3, CMP, CBCA #### [facility] ([id number]) [address] [place] [address] 95272TFZMQXLGVBH RELATIVE PERCENT BY AUTOMATED COUNT2.6 %Normal Memorial HospitalComment on above:Performed By: #### 3040-3, CMP, CBCA #### [facility] ([id number]) [address] [place] [address] 70841Ejgsutgzfic distribution width (RBC) [Ratio]13.3 %Bfosxx24.5-15 Memorial HospitalComment on above:Performed By: #### 3040-3, CMP, CBCA #### [facility] ([id number]) [address] [place] [address] 12163Csrvybsrel (Bld) [Volume fraction]40.4 %Jzwrfj73-21SbiTptpggSt. Joseph Health [facility] HospitalComment on above:Performed By: #### 3040-3, CMP, CBCA #### [facility] ([id number]) [address] [place] [address] 67064Vzyvmmkzqh (Bld) [Mass/Vol]14.0 g/nHMxrkmi62-01VfgGjyntcSt. Joseph Health [facility] HospitalComment on above:Performed By: #### 3040-3, CMP, CBCA #### [facility] ([id number]) [address] [place] [address] 38134Fnufvpzsphm (Bld) [#/Vol]1.0 10*3/uLNormal1.0-3.5ProMedica St. Mary Medical CenterComment on above:Performed By: #### 3040-3, CMP, CBCA #### [facility] ([id number]) [address] [place] [address] 59948RPSQGANCPEM RELATIVE PERCENT BY AUTOMATED COUNT22.8 %Normal [facility]. Mary Medical CenterComment on above:Performed By: #### 3040-3, CMP, CBCA #### [facility] ([id number]) [address] [place] [address] 71716JYB (RBC) [Entitic mass]31.0 kwZyhhsv46-38SuvVyecyoMemorial HospitalComment on above:Performed By: #### 3040-3, CMP, CBCA #### [facility] ([id number]) [address] [place] [address] 02178NHJU (RBC) [Mass/Vol]34.6 g/jRAgdnxj45-84QtiCvgxuxSt. [facility] HospitalComment on above:Performed By: #### 3040-3, CMP, CBCA #### [facility] ([id number]) [address] [place] [address] 86323OGH (RBC) [Entitic vol]90 mKGfzqls60-414JjpOfuzzg [facility] HospitalComment on above:Performed By: #### 3040-3, CMP, CBCA #### [facility] ([id number]) [address] [place] [address] 70071Bedelmtll (Bld) [#/Vol]0.4 10*3/uLNormal0.0-0.9Memorial HospitalComment on above:Performed By: #### 3040-3, CMP, CBCA #### [facility] ([id number]) [address] [place] [address] 06774VVCBKCYFM RELATIVE PERCENT BY AUTOMATED COUNT8.3 %Normal Memorial HospitalComment on above:Performed By: #### 3040-3, CMP, CBCA #### [facility] ([id number]) [address] [place] [address] 58978APATQTDBWEO ABSOLUTE COUNT BY AUTOMATED COUNT2.9 X10^9/LNormal 1.5-6.6ProSt. Joseph Health [facility] HospitalComment on above:Performed By: #### 3040-3, CMP, CBCA #### [facility] ([id number]) [address] [place] [address] 30354COSJKHCVGWN RELATIVE PERCENT BY AUTOMATED COUNT65.5 %Normal Memorial HospitalComment on above:Performed By: #### 3040-3, CMP, CBCA #### [facility] ([id number]) [address] [place] [address] 51758Nwutwaxr mean volume (Bld) [Entitic vol]7.9 fLNormal7-12 Memorial HospitalComment on above:Performed By: #### 3040-3, CMP, CBCA #### [facility] ([id number]) [address] [place] [address] 83643Lycpphryj (Bld) [#/Vol]141 10*3/yYLbj322-608TooQbaynaSt. Joseph Health [facility] HospitalComment on above:Performed By: #### 3040-3, CMP, CBCA #### [facility] ([id number]) [address] [place] [address] 14626ZEX COUNT4.51 X10^12/LNormal4.1-5.7[facility] Comment on above:Performed By: #### 3040-3, CMP, CBCA #### [facility] ([id number]) [address] [place] [address] 04428EYH (Bld) [#/Vol]4.5 10*3/uLNormal4-11Memorial HospitalComment on above:Performed By: #### 3040-3, CMP, CBCA #### [facility] ([id number]) [address] [place] [address] 48607VJZBQNJBFPKDN METABOLIC PANELon 12-92-6844Aoapsam [Mass/Vol]3.9 g/dLNormal3.2-5.3PThe Bellevue HospitalComment on above:Performed By: #### 3040-3, CMP, CBCA #### [facility] ([id number]) [address] [place] [address], [place] [id number] [Catalytic activity/Vol]60 U/TYoujxr73-464NqoZqwkskSt. Joseph Health College [facility] HospitalComment on above:Performed By: #### 3040-3, CMP, CBCA #### [facility] ([id number]) [address] [place] [address], [place] [id number] [Catalytic activity/Vol]20 U/LNormal<=40ProSt. Joseph Health College Station HospitalComment on above:Performed By: #### 3040-3, CMP, CBCA #### [facility] ([id number]) [address] [place] [address] 54303Bfflx gap [Moles/Vol]10 mmol/LNormal5-15Memorial HospitalComment on above:Performed By: #### 3040-3, CMP, CBCA #### [facility] ([id number]) [address] [place] [address] [id number] [Catalytic activity/Vol]17 U/LNormal<=41ProSt. Joseph Health [facility] Station HospitalComment on above:Performed By: #### 3040-3, CMP, CBCA #### [facility] ([id number]) [address] [place] [address] [id number] [Mass/Vol]1.5 mg/dLHigh0.3-1.2PThe Bellevue HospitalComment on above:Performed By: #### 3040-3, JUSTIN, CBCA #### [facility] ([id number]) [address] [place] [address] 13632Jslcpos [Mass/Vol]9.6 mg/dLNormal8.5-10.5PThe Bellevue HospitalComment on above:Performed By: #### 3040-3, JUSTIN, CBCA #### [facility] ([id number]) [address] [place] [address] 64033Bthcszmy [Moles/Vol]104 mmol/YGjlpes35-932TpoVduqnrMemorial HospitalComment on above:Performed By: #### 3040-3JUSTIN, CBCA #### [facility] ([id number]) [address] [place] [address] 79526FG6 [Moles/Vol]23 mmol/LYexgsq39-72PcvUzzeztThe [facility] Comment on above:Performed By: #### 3040-3, JUSTIN, CBCA #### [facility] ([id number]) [address] [place] [address] 62261Weuidprabs [Mass/Vol]1.02 mg/dLNormal0.70-1.20Memorial HospitalComment on above:Result Comment: METHOD TRACEABLE TO IDMS STANDARD Performed By: #### 3040-3, JUSTIN, CBCA #### [facility] ([id number]) [address] [place] [address] 55942NKT/1.73 sq M.predicted among non-blacks MDRD (S/P/Bld) [Vol rate/Area]81 mL/min/{1.73_m2}Normal>=60ProSt. Joseph Health College Station HospitalComment on above:Result Comment: eGFR not reported due to non-numeric value for Creatinine. Reported eGFR is based on the CKD-EPI 202 equation that does not use a race coefficient.Performed By: #### 3040-3, JUSTIN, CBCA #### [facility] ([id number]) [address] [place] [address], [place] [address]Dkiqyyq [Mass/Vol]147 mg/qDIeqc80-25CjzLsvdkcSt. [facility] Comment on above:Performed By: #### 3040-3, CMP, CBCA #### [facility] ([id number]) [address] [place] [address], [place] [address]Swlbbdwev [Moles/Vol]4.1 mmol/LNormal3.5-5.0ProSt. Joseph Health College Station HospitalComment on above:Performed By: #### 3040-3, CMP, CBCA #### [facility] ([id number]) [address] [place] [address], [place] [address]Rkdjbzg [Mass/Vol]6.5 g/dLNormal6.0-8.0ProSt. Joseph Health College Station HospitalComment on above:Performed By: #### 304Toribio-3, CMP, CBCA #### [facility] ([id number]) [address] [place] [address], [place] [address]Rhmqnu [Moles/Vol]137 mmol/GDxaaid567-776IdjOdsmja [place] HospitalComment on above:Performed By: #### 3040-3, CMP, CBCA #### [facility] ([id number]) [address] [place] [address] 00410Wruy nitrogen [Mass/Vol]16 mg/dLNormal5-27ProSt. Joseph Health [facility] Station HospitalComment on above:Performed By: #### 3040-3, CMP, CBCA #### [facility] ([id number]) [address] [place] [address], [place] [address]OAITGZOJJkr 18-09-9887Fxzdqgpvy [Mass/Vol]2.0 mg/dLNormal 1.8-2.6ProSt. Joseph Health College Station HospitalComment on above:Performed By: #### 3040-3, CMP, CBCA #### [facility] ([id number]) [address] [place], [place] [address], [place] [address]OXTQ PATHOGENS PANEL/EWSX-HNY-1ds 19-64-6353RTMM-CoV-2 (COVID- 19) RNA MARTHA+probe Ql (Resp)SARS COV 2 BY PCR Not Detected ADENOVIRUS Not Detected CORONAVIRUS 229E Not Detected CORONAVIRUS HKU1 Not Detected CORONAVIRUS NL63 Not Detected CORONAVIRUS OC43 Not Detected HUMAN METAPNEUVIRUS Not Detected RHINO/ENTEROVIRUS Not Detected INFLUENZA A Not Detected INFLUENZA B Not Detected PARAINFLUENZA 1 Not Detected PARAINFLUENZA 2 Not Detected PARAINFLUENZA 3 Not Detected PARAINFLUENZA 4 Not Detected RESP SYNCYTIAL VIRUS Not Detected BORD PARAPERTUSSIS Not Detected BORDETELLA PERTUSSIS Not Detected CHLAM.PNEUMONIAE Not Detected MYCOPLASMA PNEUMONIAE Not DetectedNormalNot DetectedProSt. Joseph Health [facility] Station HospitalComment on above:Order Comment: The Nomacorce Respiratory Panel 2.1 (RP2.1) is a multiplexed nucleic acid test intended for the simultaneous qualitative detection and differentiation of nucleic acid from multiple viraland bacterial respiratory organisms, including nucleic acid from Severe Acute Respiratory Syndrome Coronavirus 2 (SARS-CoV-2), in nasopharyngeal swabs obtained from individuals suspected of COVID-19 by their healthcare provider. Testing is limited to laboratories certified under the Clinical Laboratory Improvement Amendments of 1988 (CLIA), to perform high complexity or moderate complexity tests.SARS-CoV-2 RNA and nucleic acids from the other respiratory viral and bacterial organisms identifiedby this test are generally detectable in nasopharyngeal swabs during the acute phase of infection. The detection and identification of specific viral and [...] other pathogens. The agent(s) detected by the BioFire RP2.1 may not be the definite cause of disease and clinical correlation with patient history and other diagnostic information is necessary to determine patient infection status.Negative results in the setting of a respiratory illness may be due to infection with pathogens not detected by this test, or lower respiratory tract infection that may not be detected by a nasopharyngeal specimen. Negative results do not preclude SARS-CoV-2 infection and should not be used as the sole basis for patient management decisions. Negative TRAM-CoV-2 results must be combined with clinical observations, patient history and epidemiological information. Negative results for other organisms identifiedby the test may require additional laboratory testing when evaluating a patient with possible respiratory tract infection.Performed By: #### 3040-3, CMP, CBCA #### [facility] ([id number]) [address] [place] [address] 59496YDEOoc 26-87-8769yFCH Coag (Bld) [Time]27 tXfpctt95-76FezMmfxfnSt. Joseph Health College Station HospitalComment on above:Performed By: #### PTT ####[facility] ([facility])[address] [place] [address] VIRBASIC METABOLIC PANELon 72-78-8718Zydmg gap [Moles/Vol]7 mmol/LNormal5-15ProSt. Joseph Health College Station HospitalComment on above:Performed By: #### 3040-3, CMP, CBCA #### [facility] ([id number]) [address] [place] [address] 91168Itonknp [Mass/Vol]8.7 mg/dLNormal8.5-10.5PThe Bellevue HospitalComment on above:Performed By: #### 3040-3, CMP, CBCA #### [facility] ([id number]) [address] [place] [address], [place] [address]Nfwaikoz [Moles/Vol]102 mmol/ORozbih28-942UktAyapcdSt. Joseph Health [facility] Station HospitalComment on above:Performed By: #### 3040-3, CMP, CBCA #### [facility] ([id number]) [address] [place] [address], [place] [address]OL5 [Moles/Vol]24 mmol/YXmhscs34-75FjtFqmsopThe [facility] Hospital Comment on above:Performed By: #### 3040-3, CMP, CBCA #### [facility] ([id number]) [address] [place] [address] 39851Bjeakdweui [Mass/Vol]1.06 mg/dLNormal0.70-1.20ProSt. Joseph Health College Station HospitalComment on above:Result Comment: METHOD TRACEABLE TO IDMS STANDARD Performed By: #### 3040-3JUSTIN CBCA #### [facility] ([id number]) [address] [place] [address] 65292ZTN/1.73 sq M.predicted among non-blacks MDRD (S/P/Bld) [Vol rate/Area]77 mL/min/{1.73_m2}Normal>=60ProSt. Joseph Health College Station HospitalComment on above:Result Comment: eGFR not reported due to non-numeric value for Creatinine. Reported eGFR is based on the CKD-EPI 2020 equation that does not use a race coefficient.Performed By: #### 3040-3JUSTIN CBCA #### [facility] ([id number]) [address] [place] [address] 46851Ftaflky [Mass/Vol]186 mg/wHHnpx87-41JuyBrdcacMemorial Hospital Comment on above:Performed By: #### 3040-3JUSTIN CBCA #### [facility] ([id number]) [address] [place] [address] 64815Gnmxyxbzo [Moles/Vol]4.3 mmol/LNormal3.5-5.0ProSt. Joseph Health [facility] Station HospitalComment on above:Performed By: #### 3040-3JUSTIN CBCA #### [facility] ([id number]) [address] [place] [address] 99297Kcitnw [Moles/Vol]133 mmol/ODyv445-122CsvFbiwyuSt. Joseph Health [facility] Station HospitalComment on above:Performed By: #### 3040-3JUSTIN CBCA #### [facility] ([id number]) [address] [place] [address] 77854Wutc nitrogen [Mass/Vol]14 mg/dLNormal5-27ProSt. Joseph Health College Station HospitalComment on above:Performed By: #### 3040-3, CMP, CBCA #### [facility] ([id number]) [address] [place] [address] 81258UNLCUYI GLUCOSEon 22-08-4032Lgdvvvs [Mass/Vol]177 mg/dLHigh 65-99ProSt. Joseph Health College Station HospitalComment on above:Performed By: #### BEDG ####[facility] ([facility])[address] [place] [address], [id number] VIRCBC WITH AUTO DIFFERENTIALon 75-42-4853UUBWPRCAG ABSOLUTE COUNT BY AUTOMATED COUNT0.0 X10^9/LNormal0.0-0.2ProMedica St. Mary Medical CenterComaspirus ontonagon hospital on above: Performed By: #### 3040-3, CMP, CBCA #### [facility] ([id number]) [address] [place] [address] 20999MZUOKHXIN RELATIVE PERCENT BY AUTOMATED COUNT0.8 %Normal Memorial HospitalComment on above:Performed By: #### 3040-3, CMP, CBCA #### [facility] ([id number]) [address] [place] [address] 59558TUTTCZFLIXV DIFFERENTIAL TYPEAUTOMATED DIFFERENTIALNormal [facility] on above:Performed By: #### 3040-3, CMP, CBCA #### [facility] ([id number]) [address] [place] [address] 71491Rbedmqdsmtl (Bld) [#/Vol]0.1 10*3/uLNormal0.0-0.4Memorial HospitalComaspirus ontonagon hospital on above:Performed By: #### 3040-3, CMP, CBCA #### [facility] ([id number]) [address] [place] [address] 70897RKSZALYBKXI RELATIVE PERCENT BY AUTOMATED COUNT2.2 %Normal Memorial HospitalComaspirus ontonagon hospital on above:Performed By: #### 3040-3, CMP, CBCA #### [facility] ([id number]) [address] [place] [address] 94445Fvkzefuispc distribution width (RBC) [Ratio]13.2 %Wmskdg01.5-15 Memorial HospitalComment on above:Performed By: #### 3040-3, CMP, CBCA #### [facility] ([id number]) [address] [place] [address] 81519Sjmbcwruqn (Bld) [Volume fraction]37.6 %Kts21-68FthKbmaneMemorial HospitalComment on above:Performed By: #### 3040-3, CMP, CBCA #### [facility] ([id number]) [address] [place] [address] 80406Hicduofwhj (Bld) [Mass/Vol]13.1 g/cREwnrar37-58OsnJqksiqMemorial HospitalComment on above:Performed By: #### 3040-3, CMP, CBCA #### [facility] ([id number]) [address] [place] [address] 57007Stszylblmln (Bld) [#/Vol]0.7 10*3/uLLow1.0-3.5PThe Bellevue HospitalComment on above:Performed By: #### 3040-3, CMP, CBCA #### [facility] ([id number]) [address] [place] [address] 92867DFWRKNXGWOI RELATIVE PERCENT BY AUTOMATED COUNT17.4 %Normal Memorial HospitalComment on above:Performed By: #### 3040-3, CMP, CBCA #### [facility] ([id number]) [address] [place] [address] 98018BHD (RBC) [Entitic mass]31.1 jkUocjlf36-12BaaHxhwycMemorial HospitalComment on above:Performed By: #### 3040-3, CMP, CBCA #### [facility] ([id number]) [address] [place] [address] 74401TCEN (RBC) [Mass/Vol]35.0 g/kDIzxsew79-28PewAdivcuSt. Joseph Health College Station HospitalComment on above:Performed By: #### 3040-3, CMP, CBCA #### [facility] ([id number]) [address] [place] [address] 10240NHU (RBC) [Entitic vol]89 qYOdltom00-546ZnaEnyawy [facility]remont HospitalComment on above:Performed By: #### 3040-3, CMP, CBCA #### [facility] ([id number]) [address] [place] [address] 74015Gygrftuti (Bld) [#/Vol]0.4 10*3/uLNormal0.0-0.9Memorial HospitalComment on above:Performed By: #### 3040-3, CMP, CBCA #### [facility] ([id number]) [address] [place] [address] 53513EFIFSPODA RELATIVE PERCENT BY AUTOMATED COUNT9.8 %Normal Memorial HospitalComment on above:Performed By: #### 3040-3, CMP, CBCA #### [facility] ([id number]) [address] [place] [address] 20911JRHYUOZWYFQ ABSOLUTE COUNT BY AUTOMATED COUNT2.9 X10^9/LNormal 1.5-6.6ProSt. Joseph Health College Station HospitalComment on above:Performed By: #### 3040-3, CMP, CBCA #### [facility] ([id number]) [address] [place] [address] 01193EEDUMXMFWRE RELATIVE PERCENT BY AUTOMATED COUNT69.8 %Normal Memorial HospitalComment on above:Performed By: #### 3040-3, CMP, CBCA #### [facility] ([id number]) [address] [place] [address] 08065Nzdrrpal mean volume (Bld) [Entitic vol]7.7 fLNormal7-12 Memorial HospitalComment on above:Performed By: #### 3040-3, CMP, CBCA #### [facility] ([id number]) [address] [place] [address] 73419Xxvyojttf (Bld) [#/Vol]136 10*3/kEPjo639-734UpjGzaiiqSt. Joseph Health [facility] Station HospitalComment on above:Performed By: #### 3040-3, CMP, CBCA #### [facility] ([id number]) [address] [place] [address] 22487NGW COUNT4.23 X10^12/LNormal4.1-5.7[facility] Comment on above:Performed By: #### 3040-3, CMP, CBCA #### [facility] ([id number]) [address] [place] [address] 12210UKS (Bld) [#/Vol]4.2 10*3/uLNormal4-11Memorial HospitalComment on above:Performed By: #### 3040-3, CMP, CBCA #### [facility] ([id number]) [address] [place] [address] 64733PD BRAIN WO CONT STROKE ALERTon 86-31-7492MD BRAIN WO CONT STROKE ALERTCT BRAIN WO CONT STROKE ALERT STUDY: CT HEAD WITHOUT CONTRAST CLINICAL HISTORY: AMS acute neurologic symptoms. Stroke. CVA. TIA. Blurred [...] noted. Please note, MRI is more sensitive for the evaluation of acute or occult process if indicated. IMPRESSION: 1. No evidence of an acute intracranial process. All CT scans at this facility use dose modulation, iterative reconstruction, and/or weight based dosing when appropriate to reduce radiation dose to as low as reasonably achievable. Finalized by Tracy Samayoa MD on 10/03/2025 7:51 [facility] CAROTIDon 63-00-7790LJ CTA CAROTIDCT CTA CAROTID CLINICAL INFORMATION: dizziness TECHNIQUE: CT CTA CAROTID [...] by Mehran Goldstein MD on 10/03/2025 8:12 [facility]CT CT[facility] HEADon 18-52-6881BR CTA HEADCT CTA HEAD Examination: CT angiogram of the brain ([place] [facility] [place]) Clinical History:Dizziness Comparison:None Contrast:100 mL of Omnipaque 350 administered intravenously. Procedure: Multidetector CT angiogram performed through the [place] using 3D reconstructions and source images displayed on a PACS workstation and reviewed by the radiologist. Automatic exposure control (AEC) was utilized. Findings: CT ANGIOGRAM OF THE [place]. There is no aneurysm or major vessel occlusion of the [place]. Flow is demonstrated within the vertebral arteries, basilar artery, and bilateral posterior cerebral arteries, middle cerebral arteries and anterior cerebral arteries. IMPRESSION: 1. Negative CT angiogram [place] [facility] [place]. All CT scans at this facility use dose modulation, iterative reconstruction, and/or weight based dosing when appropriate to reduce radiation dose to as low as reasonably achievable. Finalized by Abhinav Beaulieu MD on 10/03/2025 8:11 AMNormalMemorial HospitalHEMOGLOBIN A1Con 35-37-9479Rlbcjzt [Mass/Vol]131 mg/dLNormalMemorial HospitalComment on above:Performed By: #### 3040-3JUSTIN CBCA #### [facility] ([id number]) [address] [place] [address] 58262RbA5j (Bld) [Mass fraction]6.2 %High4.4-5.6Memorial HospitalComment on above:Result Comment: ADA Guidelines Result HgbA1c Normal : less than 5.7 % Prediabetes : 5.7 % to 6.4 % Diabetes : > 6.4 % Use with caution in patients with abnormal hemoglobin variants as the half-life of red blood cells and in vivo glycation rates are affected.Performed By: #### 3040-3, JUSTIN, CBCA #### [facility] ([id number]) [address] [place] [address] 11399JKXXC PROFILEon 71-16-3732Pldtrsidivv [Mass/Vol]121 mg/dLLow 150-200ProSt. Joseph Health [facility] HospitalComment on above:Performed By: #### 3040-3JUSTIN, CBCA #### [facility] ([id number]) [address] [place] [address] 60961Edevqivziew in HDL [Mass/Vol]42 mg/dLNormal>39Memorial HospitalComment on above:Result Comment: HDL <40 mg/dL - High Risk HDL > or = 40mg/dL- Desirable HDL >60 mg/dL - Negative RiskPerformed By: #### 3040-3, JUSTIN, CBCA #### [facility] ([id number]) [address] [place] [address] 29918Jymuwvyqgfv in LDL [Mass/Vol]61 mg/dLNormal<130Memorial HospitalComment on above:Result Comment: LDL <100 mg/dL - Desirable LDL >160 mg/dL - High RiskPerformed By: #### 3040-3, CMP, CBCA #### [facility] ([id number]) [address] [place] [address] 03886OJEYTWHMYEQ:HDL2.0Iidwpu6.0-5.0[facility] Comment on above:Performed By: #### 3040-3, CMP, CBCA #### [facility] ([id number]) [address] [place] [address] 87196Xjdnddaslmbk [Mass/Vol]89 mg/bIPxqcer21-941IjhBqnzrx [facility] HospitalComment on above:Performed By: #### 3040-3, CMP, CBCA #### [facility] ([id number]) [address] [place] [address] 81280BLIU LOW ELPWBKPFRVP80 mg/dLNormal0-30Memorial HospitalComment on above:Performed By: #### 3040-3, CMP, CBCA #### [facility] ([id number]) [address] [place] [address] 97637OTXYQ PANELon 22-72-1637Cqhuuvy [Mass/Vol]3.5 g/dLNormal3.2-5.3 Memorial HospitalComment on above:Performed By: #### 3040-3, CMP, CBCA #### [facility] ([id number]) [address] [place] [address] 56157NHD [Catalytic activity/Vol]61 U/UYznhmi60-568OhdBvdavpSt. Joseph [facility] HospitalComment on above:Performed By: #### 3040-3, CMP, CBCA #### [facility] ([id number]) [address] [place] [address] 22521DFD [Catalytic activity/Vol]17 U/LNormal<=40ProSt. Joseph Health [facility] Station HospitalComment on above:Performed By: #### 3040-3, JUSTIN, CBCA #### [facility] ([id number]) [address] [place] [address] 24442JMU [Catalytic activity/Vol]13 U/LNormal<=41ProSt. Joseph Health [facility] HospitalComment on above:Performed By: #### 3040-3, JUSTIN, CBCA #### [facility] ([id number]) [address] [place] [address] 19569Gkupyuxxv [Mass/Vol]1.0 mg/dLNormal0.3-1.2ProMedHazel Hawkins Memorial HospitalComment on above:Performed By: #### 3040-3, JUSTIN, CBCA #### [facility] ([id number]) [address] [place] [address] 50467Ntzjgslia.indirect [Mass/Vol]0.1 mg/dLNormal<=0.4ProSt. Joseph Health [facility] HospitalComment on above:Performed By: #### 3040-3, JUSTIN, CBCA #### [facility] ([id number]) [address] [place] [address] 59349Hzihzfc [Mass/Vol]6.1 g/dLNormal6.0-8.0ProSt. Joseph Health [facility] HospitalComment on above:Performed By: #### 3040-3, JUSTNI, CBCA #### [facility] ([id number]) [address] [place] [address] 26422SV BRAIN WO CONTon 80-27-9548QK BRAIN WO CONTMR BRAIN WO CONT EXAM: MRI BRAIN WITHOUT CONTRAST CLINICAL HISTORY: [...] small vessel disease. There is no intracranial masseffect. The ventricles are proportional to the overall brain volume without evidence for outflow obstruction. There is no shift of the midline structures [...] by Eulogio Cruz MD on 10/03/2025 1:52 PMNormalProSt. [facility] PROTIME AND INRon 49-01-3888DRT0.4Msneek0.9-1.2PThe [facility] HospitalComment on above:Performed By: #### PINR ####[facility] ([facility])[address] [place], [place] [address] VIRPT Coag (PPP) [Time]11.2 sNormal 9.8-13.2PThe Bellevue HospitalComment on above:Performed By: #### PINR ####[facility] ([address] VIRTHYROID PROFILE INCLUDES TSH FT4on 18-72-2230Tykc T4 [Mass/Vol]0.99 ng/dL Normal0.61-1.60Memorial HospitalComment on above:Performed By: #### 3040-3, CMP, CBCA #### [facility] ([id number]) [address] [place] [address], FIRST FLO[address] [place], [place] [address]HLJ9.39 uIU/mLNormal0.49-4.67Memorial HospitalComment on above:Performed By: #### 3040-3, JUSTIN, CBCA #### [facility] ([id number]) [address] [place] [address], [place] [address]SQQY I, HIGH SENSITIVITY 1 HOURon 40-18-3581EMBUXAGN I, HIGH SENSITIVITY4 ng/LNormal<21ProSt. Joseph Health [facility] HospitalComment on above:Performed By: #### 3040Florencia, JUSTIN, CBCA #### [facility] ([id number]) [address] [place] [address], [place] [address]WGOJDGSH I, HIGH SENSITIVITY 0 HOURon 80-12-3881HDVHORCH I, HIGH SENSITIVITY4 ng/LNormal<21ProSt. [facility] HospitalComment on above: Performed By: #### 3040Florencia, JUSTIN, CBCA #### [facility] ([id number]) [address] [place] [address], [place] [address]AHBTOCA B12on 45-67-5993Qujmnlbor (Vitamin B12) [Mass/Vol]186 pg/pDJqdczi021-164BhuBbeiaiThe Bellevue HospitalComment on above:Performed By: #### 3040-Lucy, JUSTIN, CBCA #### [facility] ([id number]) [address] [place] [address], [place] [address]NJQLHYK D 25 HYDROXYon 38-02-0191XSNIIFF D 25 HYD TOT<^7.0Low 30.0-100.0Memorial HospitalComment on above:Order Comment: Vitamin D status 25 [place] Vitamin D D eficiency <20 ng/mLInsufficiency 20-29 ng/mLSufficiency 30-100 ng/mLToxicity >100 ng/mLNOTE: A pediatric reference range has not been established by the net developer architect of this kit. The [place] [employer] recommends a Vitamin D level of = or >20ng/mL in infants and children.Performed By: #### 3040-3, CMP, CBCA #### [facility] ([id number]) [address] [facility], FIRST FLO[address] [place], [place] [address]KL CHEST 1 VWon 20-96-3387FO CHEST 1 VWXR CHEST 1 VW EXAM: XR CHEST 1 [...] by Eulogio Cruz MD on 10/03/2025 6:[address] [facility] Ambulatory Visit Summaryon 72-47-7016Rvkmbtbsea Visit SummaryAmbulatory Visit Summary MEREDITH VILLATORO :1960 Visit Date:09/17/2025 Ambulatory Visit Instructions Your Diagnosis Prostate cancer [...] Low Dose) atorvastatin (atorvastatin 10 mg Tab) famotidine (famotidine 20 mg Tab) metoprolol (Lopressor 25 mg oral tablet) Procedures Performed TURP - Transurethral resection of prostate (02/22/2025), Cystoscopy (02/06/2025), Implantation of radioactive seed into prostate (05/21/2022), MRI- US fusion guided transrectal biopsy of prostate (02/05/2022), MRI of prostate (01/08/2022), CABG x 2 - Coronary artery bypass grafts x 2, Colonoscopy, History of coronary artery bypass grafting. Discharge Vitals Temperature (Temporal Artery) 35.8 ???C Heart Rate (Peripheral) 55 Respiratory Rate 16 Blood Pressure 128/74 Height 165 cm Height 65 in Weight 112 kg Weight 246.917 lb BMI 41.14 What to do next Scheduled Follow-Up Appointments Wednesday2025 9:00 AM EST With: Where: [facility] [address] [place] [address]- Wednesday2025 12:45 PM EST With: Leila LAMBERT MD Where: [facility] [address] [place] [address]- You Need to Schedule the Following Appointments Follow Up with PETRA OVIEDO, Leila Simpson, URL When: Comments: 3 mos w/ PVR Where: [address] [place] [id number] You Need to Complete the Following PSA Total, Blood, Routine collect, *Est. 03/18/26 +/- 28 day(s), Order for future visit, Lab Collect, Prostate cancer, Required & Missing, Print Label By Order Location Medications What How Much When Why Instructions Changed mirabegron (Myrbetriq 50 mg oral tablet, extended release) 2 Tablets By Mouth Every day Urge incontinence Duration: 90 Days 100mg daily. [facility] at [facility] [id number] Unchanged bicalutamide (Casodex 50 mg Tab) 1 Tablets By Mouth Every 24 hours Prostate cancer RisingPSA following treatment for malignant neoplasm of prostate Duration: 90 Days Unchanged tamsulosin (tamsulosin 0.4 mg Cap) 1 Capsules By Mouth 2 times a day Unchanged aspirin (Aspirin Low Dose) Every day Contact prescribing physician if questions or concerns Unchanged atorvastatin (atorvastatin 10 mg Tab) Contact prescribing physician if questions or concerns Unchanged famotidine (famotidine 20 mg Tab) 1 Tablets By Mouth Every day Contact prescribing physician if questions or concerns Unchanged metoprolol (Lopressor 25 mg oral tablet) 1 Tablets By Mouth Every day Contact prescribingphysician if questions or concerns Pharmacy Information [facility] [id number]: [address], [place] [phone] Medications and Immunizations Administered Given Eligard 45 mg/6 months subcutaneous injection, extended release, 45 mg, SubCutaneous. For: Prostatecancer Allergies No Known Medication Allergies Problems Ongoing - Any problem that you are currently receiving treatment for. Arthritis Atrial fibrillation Bilateral hydrocele BPH with obstruction/lower urinary tract [...] the bladder, intestine, and, in women,the uterus. ??? Enlarged prostate in men. The prostate is a gland near the bladder. When it gets too big, it can pinch the urethra. With the urethra blocked (more content not included)...NormalSouthview Medical CenterUrology Office/Clinic Noteon [id number] Office/Clinic NoteUrology Office/Clinic Note Chief Complaint PSA and scarlet [facility] Staff 65 yr old male here for PSA/eligard f/u Dx: rising PSA following treatment for malignant neoplasm of prostate, prostate cancer (EBRT, brachytherapy 2021, last Lupron 09/04/22), urge incontinence, BPH with obstruction/LUTS and hx of prostatitis. S/p MRI fusion bx 02/05/22. S/p Cysto, TUR of prostate mass ~4 cm 02/22/25. First Eligard 03/26/25 & started on Casodex at that time. PSA: 01/16/22 - 2.0 02/16/23 - 0.24 09/06/23- <0.1 03/17/24 - 0.2 10/03/24 - 0.6 01/10/25 - 0.5 09/13/25 - <0.1 IPSS: 16 has some burning while urinating, denies abdominal/flank pain, denies visible blood PVR: 36 ml History of Present Illness Tests reviewed: reviewed UA, PVR, PSA I have reviewed the previous health [...] HPI. Physical Exam Vitals & Measurements T: 35.8 ???C(Temporal Artery) HR: 55(Peripheral) RR: 16 BP: 128/74 HT: 65 in HT: 165 cm WT: 246.917 lb WT: 112 kg BMI: 41.14 General Appearance: alert, no distress, well nourished, well developed male. Assessment/Plan Pt here with his neighbor today. 1. Prostate cancer (C61: Malignant neoplasm of prostate) PSA: 01/16/22 - 2.0 02/16/23 - 0.24 09/06/23- <0.1 03/17/24 - 0.2 10/03/24 - 0.6 01/10/25 - 0.5 09/13/25 - <0.1 MRI prostate w/wo con 01/08/22 [facility] - PI-RADS 4 and 5. MRI fusion bx 02/05/22 - Judd 8 (4+4), 18 cores, grade group 4. NM Whole body bone scan 02/20/22 [facility] - No evidence of mets disease EBRT 03/23/22 - 04/24/22. Brachytherapy 05/21/22. Lupron given 02/27/22 and 09/04/22. Experienced breast tenderness and enlargement. Mammogram 05/11/23 - mild benign-appearing gynecomastia in the left retroareolar region. BI-RADS 2. PE 09/13/23: Lt breast tender upon exam. S/p Cysto, TUR of prostate mass ~4 cm 02/22/25. Path shows [place] 9 (4+5), cribriform, ductal (papillary), and sheets (small submucosal nodular sheet) pattern. Incidental lymph invasion in 1 small congested vessel also noticed wo perineural invasion. No significant change of prostatic urethral mucosa. [2] Eligard given 03/26/25. PSMA PET scan 04/11/25 [facility] - Neg. PSA undetectable. Will cont to monitor. Taking Casodex 50 mg qd. Eligard 45 mgIM injection given today with no complications. Left glute. Pt. denies side effects at this time. -PSA, Eligard in 6 mos -Cont Casodex 2. 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 It is at least 2 to 3 cm in size. S/p Cysto, TUR of prostate mass ~4 cm 02/22/25. Catheter removed at [facility], s/p CABG 03/02/25. S/p Cysto 08/13/25 - Open prostate, no masses. IPSS 16 (15). Taking Flomax 0.4mg bid and Myrbetriq ER 50 mg qd. Still does not feel he empties at Myrbetriq 50 mg as he also experienced this with 100 mg. Notes difficulty even starting stream at times. However also has occasional accidents a few times per week. Given low PVR and UUI, discussed increasing dosage back to 100 mg qd (off-label). Advised pt to monitor sxs and stop med immediately ifhe is unable to void. -Increase Myrbetriq ER 50 mg to 100 mg qd, new rx sent, monitor for SEs. Pt to stop med and call our office if he is unable to void. -Cont Flomax bid -F/u in 3 mos w/ PVR 3. Urge incontinence (N39.41: Urge incontinence) See #2. 4. Feeling of incomplete bladder emptying (R39.14: Feeling of incomplete bladder emptying) See #2. 5. History of prostatitis (Z87.438: Personal history of other diseases of male genital organs) Has been tx'd with Doxycycline and Methenamine in the past. Follow-up With When Contact Information PETRA OVIEDO, Leila Simpson, URL [address] [place] [address] [place] [address] Additional Instructions: 3 mos w/ PVR Patient Education Urinary Incontinence I, Molly Murray, personally scribed for Dr. Lambert on 09/17/2025 10:09:34. . Documentation recorded by the scribe, Molly Murray, accurately reflects the services(s) (more contentnot included)...[facility] Comment on above:Result Comment: Electronically Signed By: Leila LAMBERT MD\.br\Date and Time Signed: 09/17/25 10:14 EDT\.br\Electronically Co-Signed By: Molly Murray\.br\Date and Time Co-Signed: 09/17/25 10:10 EDTPSA Totalon 22-02-5562VAK Total<0.1Low0.1-3.5Fisher [facility] HospitalComment on above: Result Comment: The concentration of PSA determined by different manufacturers can vary due to differences in assay methods and reagent specificity. Values obtained from different assay methods cannot be used interchangeably. The methodology used for this result was chemiluminescence using [employer]'s Access Hybritech PSA reagent.Performed By: #### [id number] #### [facility] [address] [place], [place] [address]Jjnugeuieh Visit Summaryon 78-55-6495Ivqcvfzkbn Visit Summary Ambulatory Visit Summary MEREDITH VILLATORO [...] Implantation of radioactive seed into prostate (05/21/2022), MRI- US fusion guided transrectal biopsy of prostate (02/05/2022), [...] AM EDT With: Where: [facility] [address] [address]- Wednesday 10:45 AM EDT With: Leila LAMBERT MD Where: [facility] [address] [address]- You Need to Schedule the Following Appointments Follow Up with Leila LAMBERT MD, URL When: Comments: f/u already scheduled 09/17/25 w/ PSADony Where: [address] [place] [phone] Medications What How Much When Why Instructions Unchanged bicalutamide (Casodex 50 mg Tab) 1 Tablets By Mouth Every 24 hours Prostate cancer RisingPSA following treatment for malignant neoplasm of prostate [...] due to a comb (more content not included)...Normal [facility] HospitalUrology Office/Clinic Noteon 95-94-9081Opuzbxm Office/Clinic NoteUrology Office/Clinic Note Chief Complaint Pt here for [...] - 0.5 MRI prostate w/wo con 01/08/22 [facility] - PI-RADS 4 and 5. MRI fusion [...] prostate mass ~4 cm 02/22/25. Path shows [place] 9 (4+5), cribriform, ductal (papillary), and sheets [...] Contact Information PETRA OVIEDO, Leila Simpson, URL [address] [place] [address] [place] [address] Additional Instructions: f/u already scheduled 09/17/25 w/ PSADony Patient Education Prostate Cancer I, Molly Murray, personally scribed for Dr. Lambert on 08/13/2025 08:44:08. . Documentation recorded by the scribeMolly, accurately reflects the services(s) I performed and decisions made by me. Authenticated by Dr. Lambert on 08/13/2025 08:50:59. Problem List/Past Medical History Ongoing Arthritis Bilateral hydrocele BPH with obstruction/lo (more content not included)...[facility] HospitalComment on above:Result Comment: Electronically Signed By: Leila LAMBERT MD\.br\Date and Time Signed: 08/13/25 08:51 EDT\.br\Electronically Co- Signed By: Molly Murray\.br\Date and Time Co-Signed: 08/13/25 08:44 EDTAPTTon 01-17-5260gEUF Coag (Bld) [Time]28 jQbfoyq31-69NzjOszqyj [address] Mary Medical CenterComment on above:Performed By: #### COVFLR #### [facility] ([id number]) [address] [place] [address], FIRST FLOOR [place], [place] [address]J-DQTJ NATRIURETIC PEPTIDEon 22-33-4413Fregefhzark peptide B (Bld) [Mass/Vol]140 pg/mLHigh<=100ProMedica Bay HospitalComment on above: Performed By: #### BNP ####[facility] ([facility])[address] [place] [address] VIRCBC WITH AUTO DIFFERENTIALon 19-66-5136LBUEKXIDJ ABSOLUTE COUNT (10*3/UL) BY AUTOMATED COUNT0.0 10*3/uLNormal0.0-0.2ProMedica St. Mary Medical CenterComment on above:Performed By: #### COVFLR #### [facility] ([id number]) [address] [place] [address] 43273ZMGSLEJGT RELATIVE PERCENT BY AUTOMATED COUNT0.9 %Normal Memorial HospitalComment on above:Performed By: #### COVFLR #### [facility] ([id number]) [address] [place] [address] 82514QFHJMNESZXV DIFFERENTIAL TYPEAUTOMATED DIFFERENTIALNormal Memorial HospitalComment on above:Performed By: #### COVFLR #### [facility] ([id number]) [address] [place] [address] 20718Mggykvejoyr (Bld) [#/Vol]0.1 10*3/uLNormal0.0-0.4ProSt. Joseph Health College Station HospitalComment on above:Performed By: #### COVFLR #### [facility] ([id number]) [address] [place] [address] 48704QTWIDATCJTU RELATIVE PERCENT BY AUTOMATED COUNT2.5 %Normal Memorial HospitalComment on above:Performed By: #### COVFLR #### [facility] ([id number]) [address] [place] [address] 21774Epdsswvfcsx distribution width (RBC) [Ratio]14.5 %Mibszp12.5-15 Memorial HospitalComment on above:Performed By: #### COVFLR #### [facility] ([id number]) [address] [place] [address] 43821Qkaryimmjz (Bld) [Volume fraction]40.7 %Ikwboq81-95SbdPwxflyMemorial HospitalComment on above:Performed By: #### COVFLR #### [facility] ([id number]) [address] [place] [address] 96578Uajkrfzrkq (Bld) [Mass/Vol]13.9 g/kLFhpxfy17-84XswBczlnnMemorial HospitalComment on above:Performed By: #### COVFLR #### [facility] ([id number]) [address] [place] [address] 76933KESQIBNZERT ABSOLUTE COUNT (10*3/UL) BY AUTOMATED COUNT0.8 10*3/uLLow1.0-3.5ProMedica St. Mary Medical CenterComment on above:Performed By: #### COVFLR #### [facility] ([id number]) [address] [place] [address] 32075HINAQREXTUX RELATIVE PERCENT BY AUTOMATED COUNT17.4 %Normal ProMnorth alabama medical centera St[facility] Mary Medical CenterComment on above:Performed By: #### COVFLR #### [facility] ([id number]) [address] [place] [address] 00845UUB (RBC) [Entitic mass]29.4 gbBtsqgf41-51SbkKdljgtMemorial HospitalComment on above:Performed By: #### COVFLR #### [facility] ([id number]) [address] [place] [address] 12393KORL (RBC) [Mass/Vol]34.0 g/tIBvdfxl89-88NvaRvsxniSt. Joseph Health College Station HospitalComment on above:Performed By: #### COVFLR #### [facility] ([id number]) [address] [place] [address] 66754WKP (RBC) [Entitic vol]86 zYHjebpq54-087QbmAjfdtjMemorial HospitalComment on above:Performed By: #### COVFLR #### [facility] ([id number]) [address] [place] [address] 66337AGHPXFEEE ABSOLUTE COUNT (10*3/UL) BY AUTOMATED COUNT0.4 10*3/uLNormal0.0-0.9Memorial HospitalComment on above:Performed By: #### COVFLR #### [facility] ([id number]) [address] [place] [address] 94159QUULNCXMH RELATIVE PERCENT BY AUTOMATED COUNT9.3 %Normal Memorial HospitalComment on above:Performed By: #### COVFLR #### [facility] ([id number]) [address] [place] [address] 32287WZDNRQJAANT ABSOLUTE COUNT BY AUTOMATED COUNT3.1 10*3/uLNormal 1.5-6.6ProSt. Joseph Health College Station HospitalComment on above:Performed By: #### COVFLR #### [facility] ([id number]) [address] [place] [address] 19435IXOLSWUXRVR RELATIVE PERCENT BY AUTOMATED COUNT69.9 %Normal Memorial HospitalComment on above:Performed By: #### COVFLR #### [facility] ([id number]) [address] [place] [address] 91478Fwleedyc mean volume (Bld) [Entitic vol]8.1 fLNormal7-12 Memorial HospitalComment on above:Performed By: #### COVFLR #### [facility] ([id number]) [address] [place] [address] 51130Wwibducnj (Bld) [#/Vol]169 10*3/jJAnkymi025-285PzeBylwco [facility]ont HospitalComment on above:Performed By: #### COVFLR #### [facility] ([id number]) [address] [place] [address] 61391HWC COUNT4.72 X10E12/LNormal4.1-5.7[facility] Hospital Comment on above:Performed By: #### COVFLR #### [facility] ([id number]) [address] [place] [address] 20876TFZ (Bld) [#/Vol]4.4 10*3/uLNormal4-11ProSt. Joseph Health College Station HospitalComment on above:Performed By: #### COVFLR #### [facility] ([id number]) [address] [place] [address] 56258KQHNKTROASUAT METABOLIC PANELon 71-42-3604Bdwtxzp [Mass/Vol]4.4 g/dLNormal3.2-5.3ProMedHazel Hawkins Memorial HospitalComment on above:Performed By: #### COVFLR #### [facility] ([id number]) [address] [place] [address], [place] [address]MDA [Catalytic activity/Vol]68 U/OFsaqxe21-573OdsWngxplSt. Joseph Health College Station HospitalComment on above:Performed By: #### COVFLR #### [facility] ([id number]) [address] [place] [address] 52285EZZ [Catalytic activity/Vol]14 U/LNormal<=40ProSt. Joseph Health College Station HospitalComment on above:Performed By: #### COVFLR #### [facility] ([id number]) [address] [place] [address] 08011Zltef gap [Moles/Vol]9 mmol/LNormal5-15ProSt. Joseph Health College Station HospitalComment on above:Performed By: #### COVFLR #### [facility] ([id number]) [address] [place] [address] 15465ASU [Catalytic activity/Vol]14 U/LNormal<=41ProMedica Bay HospitalComment on above:Performed By: #### COVFLR #### [facility] ([id number]) [address] [place] [address], [place] [address]Gwyhosnlp [Mass/Vol]1.1 mg/dLNormal0.3-1.2PThe Bellevue HospitalComment on above:Performed By: #### COVFLR #### [facility] ([id number]) [address] [place] [address], [place] [address]Gamvcuq [Mass/Vol]9.7 mg/dLNormal8.5-10.5PThe Bellevue HospitalComment on above:Performed By: #### COVFLR #### [facility] ([id number]) [address] [place] [address] 363[address]Usbijdkg [Moles/Vol]108 mmol/NYgulqv15-956EyuTyorloSt. Joseph Health College Station HospitalComment on above:Performed By: #### COVFLR #### [facility] ([id number]) [address] [place] [address] 35987TB9 [Moles/Vol]24 mmol/RBeshlh55-90BrzGnwrutThe [facility] Hospital Comment on above:Performed By: #### COVFLR #### [facility] ([id number]) [address] [place] [address] 61202Xflymczilv [Mass/Vol]1.38 mg/dLHigh0.70-1.20ProSt. Joseph Health College Station HospitalComment on above:Result Comment: METHOD TRACEABLE TO IDMS STANDARD Performed By: #### COVFLR #### [facility] ([id number]) [address] [place] [address]57[address]PIG/1.73 sq M.predicted among non-blacks MDRD (S/P/Bld) [Vol rate/Area]56 mL/min/{1.73_m2}Low>=60ProSt. Joseph Health College Station HospitalComment on above: Result Comment: eGFR not reported due to non-numeric value for Creatinine. Reported eGFR is based on the CKD-EPI 2020 equation that does not use a race coefficient.Performed By: #### COVFLR #### [facility] ([id number]) [address] [place] [address] 722[address]Pymmikb [Mass/Vol]99 mg/lOSglcbp78-44DedHbvhuxMemorial Hospital Comment on above:Performed By: #### COVFLR #### [facility] ([id number]) [address] [place] [address] 32938Sahmlrxbx [Moles/Vol]4.1 mmol/LNormal3.5-5.0ProSt. Joseph Health College Station HospitalComment on above:Performed By: #### COVFLR #### [facility] ([id number]) [address] [place] [address] 805[address]Tehbghy [Mass/Vol]7.0 g/dLNormal6.0-8.0ProSt. Joseph Health College Station HospitalComment on above:Performed By: #### COVFLR #### [facility] ([id number]) [address] [place] [address] 37879Xsqcos [Moles/Vol]141 mmol/UOrehen758-696AboQzvflp [facility] HospitalComment on above:Performed By: #### COVFLR #### [facility] ([id number]) [address] [place] [address] 44564Cgrt nitrogen [Mass/Vol]27 mg/dLNormal5-27ProSt. Joseph Health College Station HospitalComment on above:Performed By: #### COVFLR #### [facility] ([id number]) [address] [place] [address] 649[address]GOMOPOrm 83-59-6666Etyazr [Catalytic activity/Vol]33 U/LNormal 17-40ProSt. Joseph Health College Station HospitalComment on above:Performed By: #### LIPA ####[facility] ([facility])[address], [place] VIRPROTIME AND INRon 39-78-9262UZV9.1Hsohwg1.9-1.2PThe [facility] Comment on above:Performed By: #### COVFLR #### [facility] ([id number]) [address] [place] [address], FIRST FLOOR [place], [place] [address]YF Coag (PPP) [Time]11.4 sNormal9.8-13.2PThe Bellevue HospitalComment on above:Performed By: #### COVFLR #### [facility] ([id number]) [address] [place] [address], [facility], [place] [address]SGHI I, HIGH SENSITIVITY 1 HOURon 50-14-8199IDPFUMLE I, HIGH SENSITIVITY4 ng/LNormal<21ProSt. Joseph Health [facility] Station HospitalComment on above:Performed By: #### TNIHS1 ####[facility] ([facility])[address] [place] [address] [place] [address] VIRTROPONIN I, HIGH SENSITIVITY 0 HOURon 06-14-2025 TROPONIN I, HIGH SENSITIVITY4 ng/LNormal<21ProSt. Joseph Health [facility] Station HospitalComment on above:Performed By: #### TNIHS0 ####[facility] ([facility])[address] [place] [address].[place] [address] VIRXR CHEST 2 VWSon 20-80-8725HQ CHEST 2 VWSXR CHEST 2 VWS XR CHEST 2 VWS [...] Finalized by Tracy Castellon on 06/14/2025 6:36 PMNormalProSt. Joseph Health [facility] Hospital NM PET/CT PROSTATE WBon 46-57-8202PD PET/CT PROSTATE WB* * *Final Report* * * DATE OF EXAM: Apr 11 2025 2:58PM NRN 0093 - NM PET/CT PROSTATE WB / PROCEDURE REASON: prostate [...] designed to produce diagnostic CT scan quality. Physiologic/non-pathologic uptake in some body regions could confound [...] any questions regarding this interpretation, please call [phone]. If you are unable to reach us at the number above, please feel free to contact [facility] eRadiology at [phone]. [id number]_IDCSIACNNormalOhio Valley HospitalB-TYPE NATRIURETIC PEPTIDE on 12-11-0083Ctoxsrrjpfx peptide B (Bld) [Mass/Vol]110 pg/mLHigh<=100ProMedica St. Mary Medical CenterComment on above:Performed By: #### COVFLR #### [facility] ([id number]) [address] [place] [address] 85874DLQ WITH AUTO DIFFERENTIALon 76-87-5478NEXQBPSTH ABSOLUTE COUNT (10*3/UL) BY AUTOMATED COUNT0.0 10*3/uLNormal0.0-0.2POchs[facility] Medical Centerica [facility] Comment on above:Performed By: #### 32564-4 #### [facility] ([id number]) [address] [place] [address] 64846PODHOZQRD RELATIVE PERCENT BY AUTOMATED COUNT1.0 %Normal Memorial HospitalComment on above:Performed By: #### 86916-3 #### [facility] ([id number]) [address] [place] [address] 51614OTFFOOZRNFX DIFFERENTIAL TYPEAUTOMATED DIFFERENTIALNormal Memorial HospitalComment on above:Performed By: #### 02975-3 #### [facility] ([id number]) [address] [place] [address] 30978Hqqdcrchasm (Bld) [#/Vol]0.2 10*3/uLNormal0.0-0.4Memorial HospitalComment on above:Performed By: #### 55355-6 #### [facility] ([id number]) [address] [place] [address] 62900YDZVGKMMSFG RELATIVE PERCENT BY AUTOMATED COUNT6.2 %Normal Memorial HospitalComment on above:Performed By: #### 42521-7 #### [facility] ([id number]) [address] [place] [address] 11647Ajqmfthjnws distribution width (RBC) [Ratio]14.0 %Buaclv48.5-15 Memorial HospitalComment on above:Performed By: #### 06979-5 #### [facility] ([id number]) [address] [place] [address] 03472Prqpuzpbzt (Bld) [Volume fraction]40.0 %Sudstx12-40ElzPevdxdMemorial HospitalComment on above:Performed By: #### 61123-7 #### [facility] ([id number]) [address] [place] [address] 65692Yveqpjqztg (Bld) [Mass/Vol]13.6 g/uALfgolv72-09AeuOpqusdSt. Joseph Health [facility] Station HospitalComment on above:Performed By: #### 92249-6 #### [facility] ([id number]) [address] [place] [address] 19583UKEUUNPSQFX ABSOLUTE COUNT (10*3/UL) BY AUTOMATED COUNT0.7 10*3/uLLow1.0-3.5ProMedHazel Hawkins Memorial HospitalComment on above:Performed By: #### 42747-8 #### [facility] ([id number]) [address] [place] [address] 98698QGXOAPYLTAC RELATIVE PERCENT BY AUTOMATED COUNT17.8 %Normal ProMnorth [facility] medical centera St. Mary Medical CenterComment on above:Performed By: #### 98233-0 #### [facility] ([id number]) [address] [place] [address] 19355FRG (RBC) [Entitic mass]30.1 biSsgcqh03-40ZznOaifudSt. Joseph Health College Station HospitalComment on above:Performed By: #### 07005-9 #### [facility] ([id number]) [address] [place] [address] 35253HSDR (RBC) [Mass/Vol]34.0 g/qACoebhe10-56ZupWxhdhhSt. Joseph Health College Station HospitalComment on above:Performed By: #### 38852-6 #### [facility] ([id number]) [address] [place] [address] 20878FOO (RBC) [Entitic vol]89 bMIxfgkm12-905RfaAaemmw [facility] HospitalComment on above:Performed By: #### 67618-4 #### [facility] ([id number]) [address] [place] [address] 41776BDOFJOJGA ABSOLUTE COUNT (10*3/UL) BY AUTOMATED COUNT0.4 10*3/uLNormal0.0-0.9[facility] HospitalComment on above:Performed By: #### 26469-5 #### [facility] ([id number]) [address] [place] [address] [id number] RELATIVE PERCENT BY AUTOMATED COUNT10.2 %Normal [facility] HospitalComment on above:Performed By: #### [id number] #### [facility] ([id number]) [address] [place] [address] [id number] ABSOLUTE COUNT BY AUTOMATED COUNT2.6 10*3/uLNormal 1.5-6.6Mem[facility] HospitalComment on above:Performed By: #### 85130-5 #### [facility] ([id number]) [address] [place] [address] [id number] RELATIVE PERCENT BY AUTOMATED COUNT64.8 %Normal Memorial HospitalComment on above:Performed By: #### 62927-7 #### [facility] ([id number]) [address] [place] [address] 06407Ujycwths mean volume (Bld) [Entitic vol]7.9 fLNormal7-12 Memorial HospitalComment on above:Performed By: #### 08304-8 #### [facility] ([id number]) [address] [place] [address] 32586Ckwfkimmv (Bld) [#/Vol]194 10*3/yWGeripa519-085KgjKlgxxw [facility]ont HospitalComment on above:Performed By: #### 31160-7 #### [facility] ([id number]) [address] [place] [address] 53353OPL COUNT4.50 X10E12/LNormal4.1-5.7[facility] Comment on above:Performed By: #### 72937-6 #### [facility] ([id number]) [address] [place] [address] 96446ZEL (Bld) [#/Vol]4.0 10*3/uLNormal4-11Memorial HospitalComment on above:Performed By: #### 81699-1 #### [facility] ([id number]) [address] [place] [address], [place] [address]UCDZSBVKCSJQH METABOLIC PANELon 41-42-3919Qkbsios [Mass/Vol]4.1 g/dLNormal3.2-5.3PThe Bellevue HospitalComment on above:Performed By: #### COVFLR #### [facility] ([id number]) [address] [place] [address], [place] [address]XUJ [Catalytic activity/Vol]90 U/ZGcgacu39-762KupRgdcstSt. Joseph Health College Station HospitalComment on above:Performed By: #### COVFLR #### [facility] ([id number]) [address] [place] [address], [place] [address]SQV [Catalytic activity/Vol]19 U/LNormal<=40ProSt. Joseph Health College Station HospitalComment on above:Performed By: #### COVFLR #### [facility] ([id number]) [address] [place] [address], [place] [address]Bpqti gap [Moles/Vol]4 mmol/LLow5-15[facility] Comment on above:Performed By: #### COVFLR #### [facility] ([id number]) [address] [place] [address], [place] [address]LLL [Catalytic activity/Vol]19 U/LNormal<=41ProSt. Joseph Health College Station HospitalComment on above:Performed By: #### COVFLR #### [facility] ([id number]) [address] [place] [address], [place] [address]Cfnsupunt [Mass/Vol]0.8 mg/dLNormal0.3-1.2PThe Bellevue HospitalComment on above:Performed By: #### COVFLR #### [facility] ([id number]) [address] [place] [address], [place] [address]Vhwmkjr [Mass/Vol]8.9 mg/dLNormal8.5-10.5PThe Bellevue HospitalComment on above:Performed By: #### COVFLR #### [facility] ([id number]) [address] [place] [address] 36322Bmaqvord [Moles/Vol]108 mmol/LFpahbr51-310NckRwqokgSt. Joseph Health College Station HospitalComment on above:Performed By: #### COVFLR #### [facility] ([id number]) [address] [place] [address] 37394WY6 [Moles/Vol]24 mmol/YUcovon71-83LdvKofeorThe [facility] Hospital Comment on above:Performed By: #### COVFLR #### [facility] ([id number]) [address] [place] [address] 13260Itevzmlgng [Mass/Vol]1.06 mg/dLNormal0.70-1.20ProSt. Joseph Health College Station HospitalComment on above:Result Comment: METHOD TRACEABLE TO IDMS STANDARD Performed By: #### COVFLR #### [facility] ([id number]) [address] [place] [address] 36623GES/1.73 sq M.predicted among non-blacks MDRD (S/P/Bld) [Vol rate/Area]78 mL/min/{1.73_m2}Normal>=60ProSt. Joseph Health College Station HospitalComment on above:Result Comment: eGFR not reported due to non-numeric value for Creatinine. Reported eGFR is based on the CKD-EPI 2021 equation that does not use a race coefficient.Performed By: #### COVFLR #### [facility] ([id number]) [address] [place] [address], [place] 114[address]Bsbsvpu [Mass/Vol]115 mg/pFEoym59-34MuuFqeiifMemorial Hospital Comment on above:Performed By: #### COVFLR #### [facility] ([id number]) [address] [place] [address], [place] [address]Bikppiabj [Moles/Vol]3.8 mmol/LNormal3.5-5.0ProSt. Joseph Health College Station HospitalComment on above:Performed By: #### COVFLR #### [facility] ([id number]) [address] [place] [address], [place] [address]Eqdfizs [Mass/Vol]6.9 g/dLNormal6.0-8.0ProSt. Joseph Health College Station HospitalComment on above:Performed By: #### COVFLR #### [facility] ([id number]) [address] [place] [address], [place] 16[address]Lormje [Moles/Vol]136 mmol/EHqhdme531-784NvpZainpt [facility]remont HospitalComment on above:Performed By: #### COVFLR #### [facility] ([id number]) [address] [place] [address], [place] [address]Ffwc nitrogen [Mass/Vol]17 mg/dLNormal5-27ProSt. Joseph Health College Station HospitalComment on above:Performed By: #### COVFLR #### [facility] ([id number]) [address] [place] [address], [place] [address]KDDKNRXPCvp 76-42-8535Tmexljdte [Mass/Vol]2.0 mg/dLNormal 1.8-2.6ProSt. Joseph Health College Station HospitalComment on above:Performed By: #### COVFLR #### [facility] ([id number]) [address] [place] [address], [place] 18[address]NGHE I, HIGH SENSITIVITY 1 HOURon 47-81-1622RARPCLZT I, HIGH SENSITIVITY4 ng/LNormal<21ProSt. Joseph Health College Station HospitalComment on above:Performed By: #### COVFLR #### [facility] ([id number]) [address] [place] [address], [place] 425[address]ZTFCOPLX I, HIGH SENSITIVITY 0 HOURon 67-22-3704ZQULQVJI I, HIGH SENSITIVITY4 ng/LNormal<21Memorial HospitalComment on above: Performed By: #### COVFLR #### [facility] ([id number]) [address] [facility], FIRST FLOOR [place], [place] [address]GN CHEST 1 VWon 40-14-3812GO CHEST 1 VWXR CHEST 1 VW Single view chest History: Chest pain Comparison: X-ray 03/04/2025 Findings: Single portable view of the chest. Cardiomediastinal silhouette and pulmonary vasculature are within normal limits. Lungs and pleural space are clear. There is no pleural effusion or pneumothorax. Median sternotomy wires are intact. Impression: No acute cardiopulmonary process. Finalized by Chris Oliva on 04/10/2025 12:31 PMNormalMemorial Hospital CNPKarrie [id number] (NCCAP) MEREDITH VILLATORO ([id number]) 1960 M Date Time Provider Department 04/02/25 Jhony LUX NCCAP During your visit today, we recorded the following information about you: Akiko White 04/02/2025 3:14 PM Signed This form is used for MAIN CAMPUS APPOINTMENTS ONLY. Is this request for a Main [place] PET scan appointment? 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 Labs: 01-10-25 PSA 0.5 10-03-24 PSA 0.6 03-17-24 PSA 0.2 Clinical Notes Reviewed: [facility] Date of last: na Additional Information/Imaging: N/A Is this the first [facility] PET:Yes (Please schedule as requested by patient or office) Positive Scan Schedule as place of last (DOS) or Region Negative Scan Schedule at ANY [facility] site requested Isotope used: Region F-18 flotufolastat,18F flotufolastat Posluma GA68 [facility] PET 37735/LOCAMETZ (Gallium GA-68 Gozetotide) (6 mCi) A9800 - Posluma (Flotufolastat F18) (8mCi), A9608 - Region Auth#: [id number] Date Range: 03-01-25 to 08-28-25 for 1 dos NPI: Leila Lambert Member ID: [employer] Site/Contact: Case/Ref#: Notes: auths canned into epic Route to or Requested Scheduling Pool: P PET DISPLAY DECORATOR Mily HERBERT CLERICAL POOL(Mccoll), Mily BARNES dVisit Allergies As of Date: 04/02/2025 (No Known Allergies) Date Reviewed: 01/23/2025 Reviewed by: Sharon Ocampo, RN - Fully Assessed Reason for Visit: Nm Pet Request [[id number]] Prescriptions as of 04/04/2025 - mirabegron (MYRBETRIQ) [...] 01/05/2023 Encounter Status:Closed by AKIKO WHITE on 04/04/25[facility] HospitalAmbulatory Visit Summaryon [id number] Visit SummaryAmbulatory Visit Summary MEREDITH VILLATORO :1960 Visit Date:03/26/2025 Ambulatory Visit Instructions Your [...] Implantation of radioactive seed into prostate (05/21/2022), MRI- US fusion guided transrectal biopsy of prostate (02/05/2022), [...] AM EDT With: Where: [facility] [address] [place] [address]- Wednesday 10:15 AM EDT With: Leila LAMBERT MD Where: [facility] [address] [place] [address]- You Need to Schedule the Following Appointments Follow Up with Leila LAMBERT MD, URL When: Where: [facility] [address] [place] [address], [facility] [place] [address] [phone] Medications What How Much When Instructions Unchanged [...] tablet by mouth every 12 hours NEEDED FORPAIN TAKE WITH FOOD OR MILK Unchanged tamsulosin [...] testicles. The testicles make the two main androgens???testosterone and dihydrotestosterone (DHT). This surgery reduces the levels of testosterone in the blood, leading to decreased androgen production. Medicine therap (more content not included)...[facility] Urology Office/Clinic Noteon 76-39-2703Xbkufnp Office/Clinic NoteUrology Office/Clinic Note Chief Complaint Patient is here for TUR of prostate lesions. HPI Staff 64 year old male patient here to discuss path and to get Dony. S/P TURP 02/22/2025, Cysto 02/06/2025. Previous Dx: [...] - 0.5 MRI prostate w/wo con 01/08/22 [facility] - PI-RADS 4 and 5. MRI fusion [...] prostate mass ~4 cm 02/22/25. Path shows [place] 9 (4+5), cribriform, ductal (papillary), and sheets [...] complications. Left glute. Pt. denies side effects atthis time. 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 It is at least 2 to 3 cm in size. S/p Cysto, TUR of prostate mass ~4 cm 02/22/25. Catheter removed at [facility], s/p CABG 03/02/25. IPSS 15. Taking Flomax 0.4mg bid. Also taking Myrbetriq 100 mg qd (vs 50mg) and has had minimal improvement. Shares he has to void shortly after already doing so. Does not always feel he empties. Also reports start/stop stream. Occasionally has to schneider to the bathroom. Advised pt Myrbetriq may be co ntributing to incomplete emptying. Recommended pt to decrease [...] and trace leuks. (more content not included)... [facility] HospitalComment on above:Result Comment: Electronically Signed By: Leila LAMBERT MD\.br\Date and Time Signed: 03/26/25 10:23 EDT\.br\Electronically Co-Signed By: Molly Murray\.br\Date and Time Co-Signed: 03/26/25 10:21 EDTBASIC METABOLIC PANLon 71-59-3905Phpai gap [Moles/Vol]8 mmol/L Normal5-15ProSt. Francis HospitalComment on above:Performed By: #### NAIN 23785-2, CBCA, CMP, #### [facility] ([id number]) [address] [place], [place] [address]Pkrdevw [Mass/Vol]8.6 mg/dLNormal8.5-10.5PTriHealth Bethesda North HospitalComment on above:Performed By: #### NAIN 10558-4, CBCA, CMP, #### [facility] ([id number]) [address], [address] [place], [place] [address]Vbydmfsb [Moles/Vol]102 mmol/DTiejgu57-174HoxJyirgi [place] HospitalComment on above:Performed By: #### NAIN 67617-2, CBCA, CMP, #### [facility] ([id number]) [address], [address] [place], [place] [address]UZ5 [Moles/Vol]27 mmol/IFgxpfr98-47YssYkziqsTriHealth Bethesda North Hospital Comment on above:Performed By: #### NAIN, 12013-4, CBCA, CMP, #### [facility] ([id number]) [address], [address] [place], [place] [address]Ubsqlhgirp [Mass/Vol]0.77 mg/dLNormal0.60-1.30ProSt. Francis HospitalComment on above:Result Comment: METHOD TRACEABLE TO IDMS STANDARD Performed By: #### NAIN 73760-3, CBCA, CMP, #### [facility] ([id number]) [address] [address]hJOK (CKD-EPI) NON-RACE DEPENDENT>90Normal>59ProOhiohealth Nelsonville Health Center HospitalComment on above:Result Comment: Reported eGFR is based on the CKD-EPI 2020 equation that does not use a race coefficient.Performed By: #### NAIN 07757-2, CBCA, CMP, #### [facility] ([id number]) [address] [address]Juosmke [Mass/Vol]109 mg/nNWtqw34-50HpfClhryw [facility] Comment on above:Performed By: #### NAIN 85391-0, CBCA, CMP, #### [facility] ([id number]) [address] [address]Ssxwetyly [Moles/Vol]4.3 mmol/LNormal3.5-5.0ProSt. Francis HospitalComment on above:Performed By: #### NAIN 67407-9, CBCA, CMP, #### [facility] ([id number]) [address] [address]Snhrte [Moles/Vol]137 mmol/QRoucha978-769SvnHcambt [place] HospitalComment on above:Performed By: #### NAIN 66307-4, CBCA, CMP, #### [facility] ([id number]) [address] [address]Yzwi nitrogen [Mass/Vol]18 mg/dLNormal5-27ProOhiohealth Nelsonville Health Center HospitalComment on above:Performed By: #### NAIN 89443-6, CBCA, CMP, #### [facility] ([id number]) [address], [facility] [address] [place], [place] [address]POZQUIUW BLOOD COUNTon 20-72-1995Xbswesiwfdu distribution width (RBC) [Ratio]12.7 %Xfsxdp28.5-15.0ProOhiohealth Nelsonville Health Center HospitalComment on above: Performed By: #### Cb GILLETTE79-9, CBCA, CMP, #### [facility] ([id number]) [address] [address]Znrhbaeoem (Bld) [Volume fraction]30.5 %Sao09-22BwdOqgvut [place] HospitalComment on above:Performed By: #### NAIN 31491-3, CBCA, CMP, #### [facility] ([id number]) [address], [facility] [address] [place], [place] [address]Euvsmriwsj (Bld) [Mass/Vol]10.5 g/dLLow13.0-17.0ProOhiohealth Nelsonville Health Center HospitalComment on above:Performed By: #### NAIN 65290-1, CBCA, CMP, #### [facility] ([id number]) [address], [facility] [address] [place], [place] [address]EHZ (RBC) [Entitic mass]31.2 ivVfrbak86-31DxuUkarbt [place] HospitalComment on above:Performed By: #### NAIN, 63228-8, CBCA, CMP, #### [facility] ([id number]) [address], [facility] [address] [place], [place] [address]EUGQ (RBC) [Mass/Vol]34.3 g/pACzjyhj88-33KndEvrmpl [facility] HospitalComment on above:Performed By: #### NAIN, 83357-9, CBCA, CMP, 1988-03, #### [facility] ([id number]) [address], [address] [place], [place] [address]WJL (RBC) [Entitic vol]91 zASeqqtt40-737LoqWevrri [facility] HospitalComment on above:Performed By: #### NAIN, 17072-3, CBCA, CMP, 1988-03, #### [facility] ([id number]) [address], [address] [place], [place] [address]Rojohulb mean volume (Bld) [Entitic vol]7.1 fLNormal7-12 [facility] HospitalComment on above:Performed By: #### NAIN, 23741-9, CBCA, CMP, 1988-03, #### [facility] ([id number]) [address], [address] [place], [place] [address]Xgiigquzw (Bld) [#/Vol]207 10*3/iQUzstlc960-695MfhRbgzcm [facility] HospitalComment on above:Performed By: #### NAIN, 00369-6, CBCA, CMP, 1988-03, #### [facility] ([id number]) [address], [address] [place], [place] [address]CBJ COUNT3.35 X10E12/LLow4.10-5.70[facility] Comment on above:Performed By: #### NAIN, 28978-9, CBCA, CMP, 1988-03, #### [facility] ([id number]) [address] [place], [place] [address]QBO (Bld) [#/Vol]5.6 10*3/uLNormal4.0-11.0ProMedica [facility] HospitalComment on above:Performed By: #### NAIN, 37007-3, CBCA, CMP, #### [facility] ([id number]) [address] [place] [address]TNADNYLSCde 72-69-4043Xxeenoilc [Mass/Vol]2.2 mg/dLNormal1.8-2.6 [facility] HospitalComment on above:Performed By: #### NAIN, 40693-6, CBCA, CMP, #### [facility] ([id number]) [address] [place], [place] [address]GKIGQ METABOLIC PANLon 23-70-2457Dofox gap [Moles/Vol]8 mmol/L Normal5-15ProOhiohealth Nelson[facility] Health Center HospitalComment on above:Performed By: #### Cb GILLETTE79-9, CBCA, CMP, #### [facility] ([id number]) [address], [address] [place], [place] [address]Shsblcd [Mass/Vol]8.9 mg/dLNormal8.5-10.5ProMedica [facility] HospitalComment on above:Performed By: #### NAIN 87365-5, CBCA, CMP, #### [facility] ([id number]) [address], [address] [place], [place] [address]Iuujdnwq [Moles/Vol]99 mmol/HVzkcpq19-378WevDilcdg [place] HospitalComment on above:Performed By: #### NAIN 27205-8, CBCA, CMP, #### [facility] ([id number]) [address] [place], [place] [address]WL2 [Moles/Vol]26 mmol/OXydmiq92-11OdsZaefyi [facility] Comment on above:Performed By: #### Cb GILLETTE79-9, CBCA, CMP, #### [facility] ([id number]) [address], [address] [place], [place] [address]Smwlreajab [Mass/Vol]0.83 mg/dLNormal0.60-1.30ProSt. Francis HospitalComment on above:Result Comment: METHOD TRACEABLE TO IDMS STANDARD Performed By: #### NAIN 24559-9, CBCA, CMP, #### [facility] ([id number]) [address] [place], [place] [address]nNAW (CKD-EPI) NON-RACE DEPENDENT>90Normal>59ProSt. Francis HospitalComment on above:Result Comment: Reported eGFR is based on the CKD-EPI 2020 equation that does not use a race coefficient.Performed By: #### NAIN 80590-4, CBCA, CMP, #### [facility] ([id number]) [address] [place], [place] [address]Geictcj [Mass/Vol]137 mg/rQFhdp11-24DokMyyedzSt. Francis Hospital Comment on above:Performed By: #### NAIN 42128-1, CBCA, CMP, #### [facility] ([id number]) [address] [place], [place] [address]Xazbllhyq [Moles/Vol]3.8 mmol/LNormal3.5-5.0ProSt. Francis HospitalComment on above:Performed By: #### NAIN, 91811-4, CBCA, CMP, #### [facility] ([id number]) [address] [place], [place] [address]Wowwoz [Moles/Vol]133 mmol/BAdw410-481GsuOhhsswSt. Francis Hospital Comment on above:Performed By: #### NAIN, 01486-3, CBCA, CMP, #### [facility] ([id number]) [address] [place], [place] [address]Cmni nitrogen [Mass/Vol]22 mg/dLNormal5-27ProOhiohealth [facility] HospitalComment on above:Performed By: #### NAIN, 23997-1, CBCA, CMP, #### [facility] ([id number]) [address] [address]EFFBSKWJ BLOOD COUNTon 96-29-5378Ycogjpsfclb distribution width (RBC) [Ratio]13.1 %Qzddwy81.5-15.0ProOhiohealth Nelson[facility] Health Center HospitalComment on above: Performed By: #### Cb GILLETTE79-9, CBCA, CMP, #### [facility] ([id number]) [address] [place], [place] [address]Wvnxetligs (Bld) [Volume fraction]31.7 %Gee98-48ZeoRgdxuj [place] HospitalComment on above:Performed By: #### NAIN, 65053-7, CBCA, CMP, #### [facility] ([id number]) [address] [address] [place], [place] [address]Sjhemhzcbg (Bld) [Mass/Vol]10.9 g/dLLow13.0-17.0ProOhiohealth [facility] Center HospitalComment on above:Performed By: #### NAIN, 16629-2, CBCA, CMP, #### [facility] ([id number]) [address] [address] [place], [place] [address]SZI (RBC) [Entitic mass]30.6 fwHuhhjb55-14HfhUwnvtx [place] HospitalComment on above:Performed By: #### NAIN, 98339-2, CBCA, CMP, #### [facility] ([id number]) [address] [place], [place] [address]STVJ (RBC) [Mass/Vol]34.3 g/dFLbclkf82-44RmaWoscxc [place] HospitalComment on above:Performed By: #### PINCalvin, 73495-4, CBCA, CMP, #### [facility] ([id number]) [address] [place], [place] [address]JTJ (RBC) [Entitic vol]89 vTBaxfin43-328NzkWilwqc [facility] HospitalComment on above:Performed By: #### NAIN, 76612-5, CBCA, CMP, 1988-03, #### [facility] ([id number]) [address] [place], [place] [address]Izfintdi mean volume (Bld) [Entitic vol]7.7 fLNormal7-12 ProMnorth alabama medical centera [facility] HospitalComment on above:Performed By: #### NAIN, 70887-1, CBCA, CMP, 1988-03, #### [facility] ([id number]) [address] [place], [place] [address]Ycrehdcqa (Bld) [#/Vol]201 10*3/vFNltejr095-560KwxEvbsts [facility] HospitalComment on above:Performed By: #### PINR, 87163-0, CBCA, CMP, 1988-03, #### [facility] ([id number]) [address] [place], [place] [address]VTJ COUNT3.56 X10E12/LLow4.10-5.70ProOhio[facility] Hospital Comment on above:Performed By: #### PINR, 92885-0, CBCA, CMP, #### [facility] ([id number]) [address] [place], [place] [address]HHV (Bld) [#/Vol]7.2 10*3/uLNormal4.0-11.0ProSt. Francis HospitalComment on above:Performed By: #### NAIN, 24348-8, CBCA, CMP, 1988-03, #### [facility] ([id number]) [address], [facility] [address] [place], [place] [address]Gklxlxe Glucometer (BldC) [Mass/Vol]on 48-46-1023Vxkpsmr [Mass/Vol]122 mg/cGBnwf87-03UpoRjjoho [facility] HospitalGlucose [Mass/Vol]117 mg/dL Qdhj49-06TvpDablnc [facility] HospitalGlucose [Mass/Vol]118 mg/xVTxyl90-57IfiRkgzsg [place] HospitalMAGNESIUMon 16-46-2368Zofwygxux [Mass/Vol]2.3 mg/dLNormal1.8-2.6 [facility] ClinicComment on above:Performed By: #### NAIN 18868-7, CBCA, CMP, 1988-03, #### [facility] ([id number]) [address] [address]BQBWUOTLVrb 50-76-0134Ulicfebzb [Moles/Vol]4.0 mmol/LNormal 3.5-5.0ProSt. Francis HospitalComment on above:Performed By: #### NAIN 83897- 9, CBCA, CMP, 1988-03, #### [facility] ([id number]) [address], [address] [address] CHEST 1 VWon 77-80-9671DW CHEST 1 VWXR CHEST 1 VW EXAM: XR CHEST 1 VW CLINICAL INFORMATION: Shortness of breath. COMPARISON: 03/04/2025 FINDINGS: The patient is status post sternotomy. Stable right IJ central venous catheter. There is chronic elevation of the right hemidiaphragm. There is mild left basilar atelectasis. There is a small segmentof that of atelectasis in the left upper lobe. There is no overt pulmonary edema or pleural effusions. Cardiomegaly. IMPRESSION: 1. Status post sternotomy with a right IJ sheath. There is no evidence for a pneumothorax or shift of the mediastinal structures. 2. No convincing evidence for acute cardiopulmonary disease. Finalized by Eulogio Cruz MD on 03/06/2025 5:06 AMNormalProSt[address] Francis HospitalALT No additional P-5'-P [Catalytic activity/Vol]on [id number] [Catalytic activity/Vol]7 U/LNormal0-40ProOhio[facility] HospitalComment on above:Performed By: #### NAIN, 31360-5, CBCA, CMP, #### [facility] ([id number]) [address], [address] [place], [place] [address]YUKfs 55-25-6180PGK [Catalytic activity/Vol]17 U/LNormal0-41 [facility] ClinicComment on above:Performed By: #### NAIN, 92077-2, CBCA, CMP, #### [facility] ([id number]) [address] [place], [place] [address]JDYFB METABOLIC PANLon 51-01-0272Ppzjk gap [Moles/Vol]9 mmol/L Normal5-15ProSt. Francis HospitalComment on above:Performed By: #### NAIN, 23565-9, CBCA, CMP, #### [facility] ([id number]) [address], [address] [place], [place] [address]Bawaesj [Mass/Vol]9.2 mg/dLNormal8.5-10.5[facility] ClinicComment on above:Performed By: #### NAIN, 23470-1, CBCA, CMP, #### [facility] ([id number]) [address], [address] [place], [place] [address]Mmwxlwwb [Moles/Vol]100 mmol/RGbhrru31-598DrrZucbeo [place] HospitalComment on above:Performed By: #### NAIN, 48021-2, CBCA, CMP, #### [facility] ([id number]) [address], [address] [place], [place] [address]FE4 [Moles/Vol]26 mmol/QQslcay52-81HxlGkdzegTriHealth [facility]hesda [facility] Hospital Comment on above:Performed By: #### NAIN, 49286-9, CBCA, CMP, #### [facility] ([id number]) [address], [address] [place], [place] [address]Sosrknvnrq [Mass/Vol]1.14 mg/dLNormal0.60-1.30[facility] West Medical CenterComment on above:Result Comment: METHOD TRACEABLE TO IDMS STANDARD Performed By: #### NAIN, 44876-4, CBCA, CMP, #### [facility] ([id number]) [address], [address] [place], [place] [address]FYS/1.73 sq M.predicted among non-blacks MDRD (S/P/Bld) [Vol rate/Area]71 mL/min/{1.73_m2}Normal>59ProSt. Francis HospitalComment on above: Result Comment: Reported eGFR is based on the CKD-EPI 2020 equation that does not use a race coefficient.Performed By: #### NAIN, 29003-5, CBCA, CMP, #### [facility] ([id number]) [address], [address] [place], [place] [address]Ghkqqrw [Mass/Vol]110 mg/pBUsrn15-93SpoOnpmkzUniversity Hospitals Lake West Medical Center Comment on above:Performed By: #### NAIN, 42274-7, CBCA, CMP, #### [facility] ([id number]) [address], [address] [place] [address]Jlnuklrgz [Moles/Vol]4.1 mmol/LNormal3.5-5.0ProOhiohealth Nelsonville Health Center HospitalComment on above:Performed By: #### NAIN, 45580-2, CBCA, CMP, 1988-03, #### [facility] ([id number]) [address], [address] [place], [place] [address]Itaqnm [Moles/Vol]135 mmol/MVxrxfb767-106MqdRzbyrg [place] HospitalComment on above:Performed By: #### NAIN 85686-8, CBCA, CMP, 1988-03, #### [facility] ([id number]) [address], [address] [place], [place] [address]Pavr nitrogen [Mass/Vol]28 mg/dLHigh5-27ProOhiohealth Nelsonville [facility] Center HospitalComment on above:Performed By: #### NAIN, 36611-3, CBCA, CMP, 1988-03, #### [facility] ([id number]) [address], [address] [place] [address]NBTMXLGS BLOOD COUNTon 72-30-1189Hoisvzccdze distribution width (RBC) [Ratio]13.0 %Mvtbog67.5-15.0ProOhiohealth Nelsonville Health Center HospitalComment on above: Performed By: #### NAIN 63616-2, CBCA, CMP, 1988-03, #### [facility] ([id number]) [address], [address] [place] [address]Umbvgayetn (Bld) [Volume fraction]33.8 %Rgz65-16NncQfctoy [place] HospitalComment on above:Performed By: #### NAIN, 83799-4, CBCA, CMP, #### [facility] ([id number]) [address], [address] [place], [place] [address]Hbhufpilfh (Bld) [Mass/Vol]11.5 g/dLLow13.0-17.0Pro[facility]entes HospitalComment on above:Performed By: #### NAIN, 16938-2, CBCA, CMP, 1988-03, #### [facility] ([id number]) [address], [address] [place], [place] [address]GSE (RBC) [Entitic mass]30.8 pqJpkaou48-23MraTwqqqt [facility] HospitalComment on above:Performed By: #### NAIN, 91798-0, CBCA, CMP, 1988-03, #### [facility] ([id number]) [address], [address] [place], [place] [address]XZUZ (RBC) [Mass/Vol]34.0 g/lTKkfpym86-67MwbUlmdza [facility] HospitalComment on above:Performed By: #### NAIN, 20978-3, CBCA, CMP, 1988-03, #### [facility] ([id number]) [address], [address] [place], [place] [address]OBN (RBC) [Entitic vol]91 sOXomkam61-265EyiZetdbz [facility] HospitalComment on above:Performed By: #### NAIN, 20529-3, CBCA, CMP, #### [facility] ([id number]) [address], [address] [place], [place] [address]Kupjvnpg mean volume (Bld) [Entitic vol]7.9 fLNormal7-12 [facility] HospitalComment on above:Performed By: #### NAIN, 56446-4, CBCA, CMP, 1988-03, #### [facility] ([id number]) [address], [address] [place], [place] [address]Cgatgqyik (Bld) [#/Vol]193 10*3/bYVruhjv257-824XbhBschfk [facility] HospitalComment on above:Performed By: #### NAIN, 35334-8, CBCA, CMP, #### [facility] ([id number]) [address], [address] [place], [place] [address]VON COUNT3.72 X10E12/LLow4.10-5.70ProOhiohealth [facility] Hospital Comment on above:Performed By: #### NAIN, 75940-0, CBCA, CMP, #### [facility] ([id number]) [address] [place], [place] [address]FEU (Bld) [#/Vol]9.3 10*3/uLNormal4.0-11.0ProSt. Francis HospitalComment on above:Performed By: #### NAIN, 74991-2, CBCA, CMP, #### [facility] ([id number]) [address] [place], [place] [address]Xjulajm.ionized (Bld) [Mass/Vol]on 62-98-1356KFSQDIH CALCIUM4.9 mg/dLNormal4.5-5.3ProMedAvita Health System Galion HospitalComment on above:Performed By: #### NAIN, 64749-2, CBCA, CMP, #### [facility] ([id number]) [address], [address] [place], [place] [address]Rxobdgz Glucometer (BldC) [Mass/Vol]on 45-40-5669Nusuouq [Mass/Vol]119 mg/pLJtxn62-32YszAipvweUniversity Hospitals Lake West Medical CenterGlucose [Mass/Vol]127 mg/dL Mlwc58-37RulEbriwhUniversity Hospitals Lake West Medical CenterGlucose [Mass/Vol]126 mg/gWEpzh51-41GynHlkuyiSt. Francis HospitalGlucose [Mass/Vol]127 mg/oSJrwp20-77LvdKdvtgtUniversity Hospitals Lake West Medical Center LIVER PANELon 16-06-9031Tnvetmb [Mass/Vol]3.8 g/dLNormal3.2-5.3[facility] HospitalComment on above:Performed By: #### ANIN, 44376-8, CBCA, CMP, 1988-03, #### [facility] ([id number]) [address], [address] [place], [place] [address]VYT [Catalytic activity/Vol]55 U/ITavlew53-895JkkXpskeb [facility] HospitalComment on above:Performed By: #### NAIN, 67631-5, CBCA, CMP, 1988-03, #### [facility] ([id number]) [address], [address] [place], [place] [address]UGX [Catalytic activity/Vol]9 U/LNormal0-40[facility] HospitalComment on above:Performed By: #### NAIN, 12277-1, CBCA, CMP, 1988-03, #### [facility] ([id number]) [address], [address] [place], [place] [address]DNH [Catalytic activity/Vol]18 U/LNormal0-41[facility] HospitalComment on above:Performed By: #### NAIN, 28158-2, CBCA, CMP, 1988-03, #### [facility] ([id number]) [address], [address] [place], [place] [address]Mbkijbqho [Mass/Vol]0.8 mg/dLNormal0.3-1.2[facility] HospitalComment on above:Performed By: #### NAIN, 26618-3, CBCA, CMP, 1988-03, #### [facility] ([id number]) [address], [address] [place], [place] [address]Mlcadfkuo.direct [Mass/Vol]0.1 mg/dLNormal0.0-0.4Pro[facility]ica [facility] HospitalComment on above:Performed By: #### NAIN 02454-7, CBCA, CMP, #### [facility] ([id number]) [address], [address] [place], [place] [address]Wbzzqqh [Mass/Vol]6.1 g/dLNormal6.0-8.0ProSt. Anthony'S Hospitalca [facility] Comment on above:Performed By: #### NAIN 15350-9, CBCA, CMP, #### [facility] ([id number]) [address], [address] [place], [place] [address]VKLXQWTWQsu 35-93-3326Bdsdionlb [Mass/Vol]2.5 mg/dLNormal1.8-2.6 [facility] HospitalComment on above:Performed By: #### NAIN 79707-3, CBCA, CMP, #### [facility] ([id number]) [address], [address] [place], [place] [address]Aveeudqqx [Mass/Vol]2.6 mg/dLNormal1.8-2.6Pro[facility] HospitalComment on above:Performed By: #### NAIN 10757-4, CBCA, CMP, 1988-03, #### [facility] ([id number]) [address], [address] [place], [place] [address]TYWNCXHDJaa 58-05-0198Onugexekl [Moles/Vol]3.9 mmol/LNormal 3.5-5.0[facility] HospitalComment on above:Performed By: #### NAIN 50959- 9, CBCA, CMP, #### [facility] ([id number]) [address], [address] [place], [place] [address]HFAYY METABOLIC PANLon 97-99-6910Xgjjv gap [Moles/Vol]11 mmol/L Normal5-15[facility] HospitalComment on above:Performed By: #### NAIN, 36541-2, CBCA, CMP, #### [facility] ([id number]) [address], [address] [place], [place] [address]Xkuwfbk [Mass/Vol]9.0 mg/dLNormal8.5-10.5PTriHealth Bethesda North HospitalComment on above:Performed By: #### NAIN, 53800-7, CBCA, CMP, 1988-03, #### [facility] ([id number]) [address], [address] [place], [place] [address]Aqicphkx [Moles/Vol]101 mmol/NCwfdmh67-359AzjZtrree [place] HospitalComment on above:Performed By: #### NAIN 08291-8, CBCA, CMP, 1988-03, #### [facility] ([id number]) [address], [address] [place], [place] [address]SU1 [Moles/Vol]24 mmol/XRdggph74-49CiqFzhwyuTriHealth Bethesda North Hospital Comment on above:Performed By: #### NAIN, 38033-7, CBCA, CMP, 1988-03, #### [facility] ([id number]) [address], [address] [place], [place] [address]Ddihqxbvwv [Mass/Vol]1.14 mg/dLNormal0.60-1.30ProSt. Francis HospitalComment on above:Result Comment: METHOD TRACEABLE TO IDMS STANDARD Performed By: #### NAIN, 91828-4, CBCA, CMP, #### [facility] ([id number]) [address], [address] [place], [place] [address]LFF/1.73 sq M.predicted among non-blacks MDRD (S/P/Bld) [Vol rate/Area]71 mL/min/{1.73_m2}Normal>59ProSt. Francis HospitalComment on above: Result Comment: Reported eGFR is based on the CKD-EPI 2020 equation that does not use a race coefficient.Performed By: #### NAIN 69293-5, CBCA, CMP, #### [facility] ([id number]) [address], [address] [place], [place] [address]Fhznlhj [Mass/Vol]133 mg/eNEvkk98-59MgtBpfmxm [facility] Comment on above:Performed By: #### NAIN 08507-1, CBCA, CMP, #### [facility] ([id number]) [address] [address] [place], [place] [address]Swnvvvfyg [Moles/Vol]4.2 mmol/LNormal3.5-5.0ProSt. Francis HospitalComment on above:Performed By: #### NAIN 46321-3, CBCA, CMP, #### [facility] ([id number]) [address] [address] [address] [place], [place] [address]Birbdz [Moles/Vol]136 mmol/ZEyxekk545-610QpyXzmjpb [place] HospitalComment on above:Performed By: #### NAIN 55441-4, CBCA, CMP, #### [facility] ([id number]) [address] [address] [address] [place], [place] [address]Ihxy nitrogen [Mass/Vol]21 mg/dLNormal5-27ProSt. Francis HospitalComment on above:Performed By: #### NAIN 17509-4, CBCA, CMP, #### [facility] ([id number]) [address], [address] [place], [place] [address]VLRHSYJX BLOOD COUNTon 89-12-4893Mgbcwqdqvru distribution width (RBC) [Ratio]12.8 %Wmpxky43.5-15.0Pro[facility] HospitalComment on above: Performed By: #### NAIN, 79110-6, CBCA, CMP, #### [facility] ([id number]) [address], [address] [place], [place] [address]Yukrhbcmuk (Bld) [Volume fraction]35.7 %Jus80-13DilRccnjv [facility] HospitalComment on above:Performed By: #### NAIN, 93346-2, CBCA, CMP, 1988-03, #### [facility] ([id number]) [address], [address] [place], [place] [address]Byeiqgdrfq (Bld) [Mass/Vol]12.2 g/dLLow13.0-17.0ProSt. Anthony'S Hospitalca [facility] HospitalComment on above:Performed By: #### NAIN, 93449-8, CBCA, CMP, #### [facility] ([id number]) [address], [address] [place], [place] [address]TRH (RBC) [Entitic mass]31.0 lfXzivex85-52RzaEzbvze [facility] HospitalComment on above:Performed By: #### NIAN, 09808-7, CBCA, CMP, 1988-03, #### [facility] ([id number]) [address], [address] [place], [place] [address]BIOR (RBC) [Mass/Vol]34.1 g/kBAsufps58-22XtzGnlbjr [facility] HospitalComment on above:Performed By: #### NAIN, 16902-8, CBCA, CMP, #### [facility] ([id number]) [address], [address] [place], [place] [address]YED (RBC) [Entitic vol]91 uNWjcbmx11-208XtlOgdtvx [facility] HospitalComment on above:Performed By: #### NAIN, 11427-1, CBCA, CMP, #### [facility] ([id number]) [address], [address] [place], [place] [address]Vafwvehe mean volume (Bld) [Entitic vol]8.1 fLNormal7-12 ProMnorth alabama medical centera [facility] HospitalComment on above:Performed By: #### NAIN, 72296-3, CBCA, CMP, 1988-03, #### [facility] ([id number]) [address], [address] [place], [place] [address]Ummpfscca (Bld) [#/Vol]205 10*3/dMHovokb783-962NxcLtqmry [place] HospitalComment on above:Performed By: #### NAIN, 16047-8, CBCA, CMP, 1988-03, #### [facility] ([id number]) [address], [address] [place], [place] [address]XKX COUNT3.92 X10E12/LLow4.10-5.70ProOhiohealth [facility] Hospital Comment on above:Performed By: #### NAIN, 01976-8, CBCA, CMP, 1988-03, #### [facility] ([id number]) [address], [address] [place], [place] [address]PIB (Bld) [#/Vol]11.5 10*3/uLHigh4.0-11.0ProOhiohealth Nelsonville Health Center HospitalComment on above:Performed By: #### NAIN, 28120-6, CBCA, CMP, 1988-03, #### [facility] ([id number]) [address] [place], [place] [address]Cjgedfm Glucometer (BldC) [Mass/Vol]on 20-82-2267Qrrtggm [Mass/Vol]122 mg/oYDwyd77-41XyjTncfqtSt. Francis HospitalGlucose [Mass/Vol]128 mg/dL Egoh04-67EfwHqkjisSt. Francis HospitalGlucose [Mass/Vol]141 mg/fMHcsj68-11RugSkwrfaUniversity Hospitals Lake West Medical CenterGlucose [Mass/Vol]137 mg/pQDbjl50-83TxaZdzeykSt. Francis HospitalXR CHEST 1 VWon 76-91-6880JT CHEST 1 VWXR CHEST 1 VW EXAM: XR CHEST 1 VW CLINICAL INFORMATION: Assess congestion and atelectasis. COMPARISON: 03/03/2025 FINDINGS: The patient is status post sternotomy. There are age a sheath remains in place. Mediastinal pleuraldrains have been removed in the interval. There [...] by Eulogio Cruz MD on 03/04/2025 5:18 AMNormalUniversity Hospitals Lake West Medical Center BASIC METABOLIC PANLon 44-76-8634Iukkf gap [Moles/Vol]6 mmol/LNormal5-15 [facility] ClinicComment on above:Performed By: #### NAIN, 36960-9, CBCA, CMP, #### [facility] ([id number]) [address], [address] [place], [place] [address]Sysffpv [Mass/Vol]8.9 mg/dLNormal8.5-10.5Pro[facility] ClinicComment on above:Performed By: #### NAIN, 83692-8, CBCA, CMP, #### [facility] ([id number]) [address] [place], [place] [address]Ydutiksf [Moles/Vol]106 mmol/KSwkqup66-795LhtLltvct [place] HospitalComment on above:Performed By: #### NAIN, 85428-7, CBCA, CMP, #### [facility] ([id number]) [address] [place], [place] [address]TA8 [Moles/Vol]25 mmol/OGtgsaj29-86KkbMbetyzTriHealth Bethesda North Hospital Comment on above:Performed By: #### NAIN, 75020-7, CBCA, CMP, #### [facility] ([id number]) [address], [address] [place], [place] [address]Bvvlmdwqtt [Mass/Vol]1.09 mg/dLNormal0.60-1.30ProSt. Francis HospitalComment on above:Result Comment: METHOD TRACEABLE TO IDMS STANDARD Performed By: #### NAIN 09304-5, ELKE, CMP, #### [facility] ([id number]) [address] [place], [place] [address]IYA/1.73 sq M.predicted among non-blacks MDRD (S/P/Bld) [Vol rate/Area]75 mL/min/{1.73_m2}Normal>59ProSt. Francis HospitalComment on above: Result Comment: Reported eGFR is based on the CKD-EPI 2020 equation that does not use a race coefficient.Performed By: #### NAIN 18690-5, CBCAbram, CMP, #### [facility] ([id number]) [address] [place], [place] [address]Gaewwmv [Mass/Vol]136 mg/aMUnbi56-16BppKzkqdpUniversity Hospitals Lake West Medical Center Comment on above:Performed By: #### NAIN 66362-5, CBCA, CMP, #### [facility] ([id number]) [address] [place], [place] [address]Noiwohqim [Moles/Vol]4.7 mmol/LNormal3.5-5.0ProSt. Francis HospitalComment on above:Performed By: #### NAIN, 90205-0, CBCA, CMP, #### [facility] ([id number]) [address] [place], [place] [address]Zppxsg [Moles/Vol]137 mmol/HPiqvie284-525WhyAxiqae [facility] HospitalComment on above:Performed By: #### NAIN 73838-4, CBCA, CMP, #### [facility] ([id number]) [address], [address] [place], [place] [address]Nply nitrogen [Mass/Vol]19 mg/dLNormal5-27ProSt. Anthony'S Hospitalca [facility] HospitalComment on above:Performed By: #### NAIN 68771-1, CBCA, CMP, #### [facility] ([id number]) [address] [facility] [address] [place], [place] [address]VQPGAEJB BLOOD COUNTon 14-13-4043Zrghegjedyi distribution width (RBC) [Ratio]12.9 %Ukcvqg41.5-15.0ProSt. Anthony'S Hospitalca [facility] HospitalComment on above: Performed By: #### NAIN 06171-6, CBCA, CMP, #### [facility] ([id number]) [address] [place], [place] [address]Qduqbiqcsa (Bld) [Volume fraction]36.8 %Wbx31-87OnyWxtgaw [place] HospitalComment on above:Performed By: #### NAIN, 24611-3, CBCA, CMP, #### [facility] ([id number]) [address] [place], [place] [address]Pllonlbupe (Bld) [Mass/Vol]12.8 g/dLLow13.0-17.0ProOhiohealth Nelsonville Health Center HospitalComment on above:Performed By: #### NAIN 51641-6, CBCA, CMP, #### [facility] ([id number]) [address] [place], [place] [address]QHI (RBC) [Entitic mass]31.2 uhFxdygi83-50McrKwsqew [facility] HospitalComment on above:Performed By: #### PINCalvin, 95333-6, CBCA, CMP, 1988-03, #### [facility] ([id number]) [address] [place], [place] [address]DTIS (RBC) [Mass/Vol]34.9 g/uFSgigqk92-43HtwWevgkb [facility] HospitalComment on above:Performed By: #### NAIN, 92948-5, CBCA, CMP, 1988-03, #### [facility] ([id number]) [address] [place], [place] [address]WEM (RBC) [Entitic vol]89 wRJmxues11-936FfyPvomuw [facility] HospitalComment on above:Performed By: #### NAIN, 33613-1, CBCA, CMP, 1988-03, #### [facility] ([id number]) [address] [place], [place] [address]Jbnzsyyf mean volume (Bld) [Entitic vol]7.9 fLNormal7-12 [facility] HospitalComment on above:Performed By: #### PINR, 05351-6, CBCA, CMP, 1988-03, #### [facility] ([id number]) [address] [place], [place] [address]Chvmlkilp (Bld) [#/Vol]180 10*3/qWTspyws174-336JgxNblyee [facility] HospitalComment on above:Performed By: #### PINR, 43804-8, CBCA, CMP, 1988-03, #### [facility] ([id number]) [address] [place], [place] [address]CMS COUNT4.12 X10E12/LNormal4.10-5.70ProSt. [facility] Hospital Comment on above:Performed By: #### NAIN, 79301-1, CBCA, CMP, 1988-03, #### [facility] ([id number]) [address] [place], [place] [address]YYK (Bld) [#/Vol]10.0 10*3/uLNormal4.0-11.0ProSt. Francis HospitalComment on above:Performed By: #### NAIN, 44204-7, CBCA, CMP, 1988-03, #### [facility] ([id number]) [address] [place], [place] [address]Umuvgcl.ionized (Bld) [Mass/Vol]on 15-92-6591ZWPXRYM CALCIUM4.9 mg/dLNormal4.5-5.3PTriHealth Bethesda North HospitalComment on above:Performed By: #### NAIN, 06165-9, CBCAbram, CMP, #### [facility] ([id number]) [address], [address] [place], [place] [address]Mhxrpui Glucometer (BldC) [Mass/Vol]on 67-10-9024Qujwaza [Mass/Vol]147 mg/sWHnap67-83SugRagsfn [facility] HospitalGlucose [Mass/Vol]124 mg/dL Sssy62-19DuhOhwdfh [facility] HospitalGlucose [Mass/Vol]138 mg/eJMwjr33-72ErlTqbznb [facility] HospitalGlucose [Mass/Vol]114 mg/dMLosy32-83CdeTttnvk [facility] Glucose [Mass/Vol]89 mg/lPVbzuke36-13HciBcpzdz [facility] HospitalGlucose [Mass/Vol] 106 mg/mUExjm71-35WlbWuhsmn [facility] HospitalGlucose [Mass/Vol]135 mg/zHLzud58-15 [facility] HospitalGlucose [Mass/Vol]254 mg/sPNjbb95-68RwtDvjcpc [facility] HospitalGlucose [Mass/Vol]104 mg/sSIrhu45-75BzkQhzvvs [facility] HospitalGlucose [Mass/Vol]123 mg/sFTsad00-97UjsGlnihn [facility] HospitalGlucose [Mass/Vol]145 mg/dL Qodg92-25JvxTcsoyj [facility] HospitalGlucose [Mass/Vol]175 mg/wYYzzg92-54QcgMukqfh [facility] HospitalGlucose [Mass/Vol]226 mg/rZYhpl44-93VuhEkwbkp [facility] Magnesium Ionized ISE (Bld) [Moles/Vol]on 70-45-2523Sswtlpdea [Moles/Vol]0.74 mmol/LNormal0.45-0.74ProMedica Fuentes HospitalComment on above:Result Comment: NEW REFERENCE RANGEPerformed By: #### NAIN 00927-4, CBCAbram, CMP, #### [facility] ([id number]) [address] [place], [place] [address]DSQOVOYVBXft 13-69-1185Mwfhnvfjf [Mass/Vol]3.9 mg/dLNormal 2.4-4.9ProMedica Fuentes HospitalComment on above:Performed By: #### NAIN 41006- 9, CBCA, CMP, #### [facility] ([id number]) [address] [place], [place] [address]WEEJKXPKLhq 50-51-3552Geobayvuo [Moles/Vol]4.4 mmol/LNormal 3.5-5.0ProMedica Fuentes HospitalComment on above:Performed By: #### NAIN 24848- 9, CBCA, CMP, #### [facility] ([id number]) [address] [place], [place] [address]Syyutkdux [Moles/Vol]4.6 mmol/LNormal3.5-5.0ProMedica Fuentes HospitalComment on above:Performed By: #### Cb GILLETTE79-9, CBCA, CMP, 1988-03, #### [facility] ([id number]) [address], [address] [place], [place] [address]FWDZLJY AND INRon 97-40-2891ZYG Coag (PPP) [Relative time]1.1 {INR}Normal0.9-1.2PWood County Hospital HospitalComment on above:Performed By: #### PINR, 50777-8, CBCA, CMP, 1988-03, #### [facility] ([id number]) [address], [address] [place], [place] [address]OO Coag (PPP) [Time]12.7 sNormal9.8-13.2PWood County Hospital HospitalComment on above:Performed By: #### PINR, 34657-2, CBCA, CMP, 1988-03, #### [facility] ([id number]) [address] [place], [place] [address]VF CHEST 1 VWon 21-35-4560KO CHEST 1 VWXR CHEST 1 VW EXAM: XR CHEST 1 [...] right IJ central venous catheter. The endotracheal tubeis been removed. Mediastinal and pleural drains remain in place. There is no evidence for a pneumothorax or shift of the mediastinal structures. Finalized by Eulogio Cruz MD on 03/03/2025 4:46 AMNormalProMedica Fuentes HospitalABG RAPID K GLU HHon 49-03-3973GVDVF'S TESTNormalProMedica Sandoval HospitalComment on above:Performed By: #### CBCA, CMP, #### [facility] ([id number]) [address], [address] [place], [place] [address]ATLN,DEFICIT1.5 MMOL/LNormal0.0-2.0[facility] Comment on above:Performed By: #### JUSTIN BEDOYA, #### [facility] ([id number]) [address], [address] [place], [place] [address]Uurl bynaoebgwzu35.6 [degF]Xrqhph51.0[facility] Comment on above:Performed By: #### JUSTIN BEDOYA, #### [facility] ([id number]) [address], [address] [place], [place] [address]Crpfwdx [Mass/Vol]118 mg/pTUzny44-71VmrZrveutUniversity Hospitals Lake [facility] Medical Center Comment on above:Performed By: #### JUSTIN BEDOYA, #### [facility] ([id number]) [address], [address] [place], [place] [address]KOJ7 (Bld) [Moles/Vol]23.9 mmol/ZFritua25-08DlyThivfu [place] HospitalComment on above:Performed By: #### JUSTIN BEDOYA, #### [facility] ([id number]) [address], [address] [place], [place] [address]Oqpemvhkpb (Bld) [Volume fraction]33 %Wct68-55AsrBqhrhc [place] HospitalComment on above:Performed By: #### JUSTIN BEDOYA, #### [facility] ([id number]) [address], [address] [place], [place] [address]Jxkpavisgn (Bld) [Mass/Vol]10.9 g/dLLow13.0-17.0ProOhiohealth Nelsonville Health Center HospitalComment on above:Performed By: #### JUSTIN BEDOYA, #### [facility] ([id number]) [address], [address] [place], [place] [address]NRRK. O2 CONC.100 %NormalProMedica Fuentes HospitalComment on above:Performed By: #### JUSTIN BEDOYA, 91327-6 #### [facility] ([id number]) [address], [address] [place], [place] [address]Adnpqp (Bld) [Partial pressure]418 mm[Hg]Aano18-335GinEzjjdu [facility] HospitalComment on above:Performed By: #### JUSTIN BEDOYA, #### [facility] ([id number]) [address], [address] [place], [place] [address]Rruaiu saturation in Jrznk954.4 %Normal>90ProMedica [facility] HospitalComment on above:Performed By: #### JUSTIN BEDOYA, #### [facility] ([id number]) [address], [address] [place], [place] [address]DVZ316.0 PCTESucvun31-51DcrGdepsr [facility] HospitalComment on above:Performed By: #### JUSTIN BEDOYA, #### [facility] ([id number]) [address], [address] [place], [place] [address]aH (Bld)7.364 [pH]Normal7.350-7.450[facility] [facility] Comment on above:Performed By: #### JUSTIN BEDOYA, #### [facility] ([id number]) [address], [address] [place], [place] [address]Whbbxqfmf [Moles/Vol]5.1 mmol/LHigh3.5-5.0ProMedica [facility] HospitalComment on above:Performed By: #### JUSTIN BEDOYA, #### [facility] ([id number]) [address], [address] [place], [place] [address]BWNZQH SITEALINENormalProMedica Fuentes HospitalComment on above: Performed By: #### JUSTIN BEDOYA, #### [facility] ([id number]) [address], [address] [place], [place] [address]UORBTL TYPEArterialNormalProMedica Sandoval HospitalComment on above:Performed By: #### JUSTIN BEDOYA, #### [facility] ([id number]) [address], [address] [place], [place] [address]CJYEWULN BLOOD GASon 82-44-7434XMKWS'S TESTNormalProMedica Sandoval HospitalComment on above:Performed By: #### JUSTIN BEDOYA, #### [facility] ([id number]) [address], [address] [place], [place] [address]YHXQ,DEFICIT3.4 MMOL/LHigh0.0-2.0[facility] Comment on above:Performed By: #### JUSTIN BEDOYA, #### [facility] ([id number]) [address], [address] [place], [place] [address]Dndo uxmacvjdboq82.6 [degF]Nfdsce29.0[facility] Comment on above:Performed By: #### JUSTIN BEDOYA, #### [facility] ([id number]) [address], [address] [place], [place] [address]ZNT8 (Bld) [Moles/Vol]22.5 mmol/CZlieoj01-17RcbGvcjkc [place] HospitalComment on above:Performed By: #### JUSTIN BEDOYA, #### [facility] ([id number]) [address], [address] [place], [place] [address]DBKV. O2 CONC.100 %NormalProMedica Sandoval HospitalComment on above:Performed By: #### JUSTIN BEDOYA, #### [facility] ([id number]) [address], [address] [place], [place] [address]Rlabpw (Bld) [Partial pressure]284 mm[Hg]Rlxf42-529CwaXlfqaa [facility] HospitalComment on above:Performed By: #### JUSTIN BEDOYA, 90280-9 #### [facility] ([id number]) [address], [address] [place], [place] [address]Mrvcpy saturation in Blood99.9 %Normal>90ProMedica [place] HospitalComment on above:Performed By: #### JUSTIN BEDOYA, #### [facility] ([id number]) [address], [address] [place], [place] [address]OMZ498.6 IQMDLqhned32-36CtbTwsxqc [facility] HospitalComment on above:Performed By: #### JUSTIN BEDOYA, 56373-3 #### [facility] ([id number]) [address], [address] [place], [place] [address]oO (Bld)7.332 [pH]Low7.350-7.450ProMedica [facility] HospitalComment on above:Performed By: #### JUSTIN BEDOYA, #### [facility] ([id number]) [address], [address] [place], [place] [address]INJQAR SITEALINENormalProMedica Fuentes HospitalComment on above: Performed By: #### JUSTIN BEDOYA, #### [facility] ([id number]) [address], [address] [place], [place] [address]PUYCOT TYPEArterialNormalProMedica Fuentes HospitalComment on above:Performed By: #### JUSTIN BEDOYA, #### [facility] ([id number]) [address], [address] [place], [place] [address]JULAT UREA NITROGENon 69-15-9220Ahxw nitrogen [Mass/Vol]21 mg/dL Normal5-27ProMedica [facility] HospitalComment on above:Performed By: #### UA #### [facility] ([id number]) [address], [address] [place], [place] [address]Jxdo nitrogen [Mass/Vol]19 mg/dLNormal5-27ProMedica [facility] HospitalComment on above:Performed By: #### CBCA CMP, #### [facility] ([id number]) [address], [address] [place], [place] [address]VWV AND AUTO DIFFon 91-20-4920FZVVBVRC BASOPHIL0.0 X10E9/LNormal 0.0-0.2ProMedica [facility] HospitalComment on above:Performed By: #### CBCAbram, CMP, #### [facility] ([id number]) [address], [address] [place], [place] [address]GIRKVZUW NEUTROPHIL3.8 X10E9/LNormal1.5-6.6ProSt. Anthony'S Hospitalca [facility] HospitalComment on above:Performed By: #### CBCA, CMP, #### [facility] ([id number]) [address], [address] [place], [place] [address]Mfxpppomp/100 WBC (Bld)0.8 %NormalUniversity Hospitals Lake [facility] Center Comment on above:Performed By: #### CBCA, CMP, #### [facility] ([id number]) [address], [address] [place], [place] [address]Uimjtypnnpo (Bld) [#/Vol]0.1 10*3/uLNormal0.0-0.4ProSt. Anthony'S Hospitalca [facility] HospitalComment on above:Performed By: #### CBCA, CMP, #### [facility] ([id number]) [address], [address] [place], [place] [address]Ycvwiagcwsb/100 WBC (Bld)2.2 %NormalUniversity Hospitals Lake [facility] Comment on above:Performed By: #### CBCA, CMP, #### [facility] ([id number]) [address], [address] [place], [place] [address]Pufofpoaspg distribution width (RBC) [Ratio]12.8 %Normal 11.5-15.0ProSt. Anthony'S Hospitalca [facility] HospitalComment on above:Performed By: #### CBCAbram CMP, #### [facility] ([id number]) [address], [address] [place], [place] [address]Hotsphlkvb (Bld) [Volume fraction]42.5 %Qsqsom39-96GdpSslahp [facility] HospitalComment on above:Performed By: #### CBCAbram CMP, #### [facility] ([id number]) [address], [address] [place], [place] [address]Zqktmnmzkh (Bld) [Mass/Vol]14.6 g/zTSbjmcu85.0-17.0ProOhiohealth Nelsonville [facility] Center HospitalComment on above:Performed By: #### CBCAbram CMP, 15814-7 #### [facility] ([id number]) [address], [address] [place], [place] [address]Qltwwyqcfoh (Bld) [#/Vol]0.7 10*3/uLLow1.0-3.5ProMedica [facility] HospitalComment on above:Performed By: #### CBCAbram, CMP, #### [facility] ([id number]) [address], [address] [place], [place] [address]Guysiytazlh/100 WBC (Bld)13.4 %NormalProOhiohealth Nelsonville Health Center Hospital Comment on above:Performed By: #### CBCA, CMP, #### [facility] ([id number]) [address], [address] [place], [place] [address]GDK (RBC) [Entitic mass]30.8 cfIzjxgg22-75NzkVfrtzf [facility] HospitalComment on above:Performed By: #### CBCA, CMP, #### [facility] ([id number]) [address], [address] [place], [place] [address]IATS (RBC) [Mass/Vol]34.3 g/lTUwxlfc87-96YifAanbih [facility] HospitalComment on above:Performed By: #### CBCAbram, CMP, #### [facility] ([id number]) [address], [address] [place], [place] [address]INP (RBC) [Entitic vol]90 dFOuendu77-659PfwDlhcrd [facility] HospitalComment on above:Performed By: #### CBCAbram, CMP, #### [facility] ([id number]) [address], [address] [place], [place] [address]Sedniupdo (Bld) [#/Vol]0.5 10*3/uLNormal0-0.9ProSt. Anthony'S Hospitalca [facility] HospitalComment on above:Performed By: #### CBCA, CMP, #### [facility] ([id number]) [address], [address] [place], [place] [address]Zedldkjfk/100 WBC (Bld)9.4 %NormalUniversity Hospitals Lake West Medical Center Comment on above:Performed By: #### CBCAbram, CMP, #### [facility] ([id number]) [address], [address] [place], [place] [address]Tfyurvpbtld/100 WBC (Bld)74.2 %NormalUniversity Hospitals Lake [facility] Center Comment on above:Performed By: #### CBCA, CMP, #### [facility] ([id number]) [address], [address] [place], [place] [address]Crwrpksu mean volume (Bld) [Entitic vol]7.7 fLNormal7-12 ProMedica [facility] HospitalComment on above:Performed By: #### CBCA, CMP, 71475-2 #### [facility] ([id number]) [address], [address] [place], [place] [address]Xhtivekwi (Bld) [#/Vol]175 10*3/pWScubwc307-850MvbOzeyml [facility] HospitalComment on above:Performed By: #### ELKE CMP, 93379-0 #### [facility] ([id number]) [address], [address] [place], [place] [address]BJN COUNT4.73 X10E12/LNormal4.10-5.70[facility] Comment on above:Performed By: #### JUSTIN BEDOYA, #### [facility] ([id number]) [address], [address] [place], [place] [address]TEL (Bld) [#/Vol]5.1 10*3/uLNormal4.0-11.0ProMedica [facility] HospitalComment on above:Performed By: #### JUSTIN BEDOYA, 32001-3 #### [facility] ([id number]) [address], [address] [place], [place] [address]WHEXKZLBYDSNG METABOLIC PANELon 08-91-1677Ogmtaqt [Mass/Vol]3.9 g/dLNormal3.2-5.3ProMedica [facility] HospitalComment on above:Performed By: #### JUSTIN BEDOYA, #### [facility] ([id number]) [address], [address] [place], [place] [address]CXD [Catalytic activity/Vol]56 U/IOskoek34-637JwrSfmxrb [facility] HospitalComment on above:Performed By: #### ELKE CMP, #### [facility] ([id number]) [address], [address] [place], [place] [address]UZY [Catalytic activity/Vol]11 U/LNormal0-40Pro[facility] HospitalComment on above:Performed By: #### JUSTIN BEDOYA, #### [facility] ([id number]) [address], [address] [place], [place] [address]Kmvuv gap [Moles/Vol]9 mmol/LNormal5-15ProSt. Anthony'S Hospitalca [facility] Comment on above:Performed By: #### JUSTIN BEDOYA, #### [facility] ([id number]) [address], [address] [place], [place] [address]XJR [Catalytic activity/Vol]14 U/LNormal0-41ProSt. Anthony'S Hospitalca [facility] HospitalComment on above:Performed By: #### JUSTIN BEDOYA, #### [facility] ([id number]) [address], [address] [place], [place] [address]Pglfuykmk [Mass/Vol]0.7 mg/dLNormal0.3-1.2ProMednoland hospital dothan [facility] HospitalComment on above:Performed By: #### JUSTIN BEDOYA, #### [facility] ([id number]) [address], [address] [place], [place] [address]Qzfdsek [Mass/Vol]9.0 mg/dLNormal8.5-10.5ProMedica [facility] HospitalComment on above:Performed By: #### JUSTIN BEDOYA, #### [facility] ([id number]) [address], [address] [place], [place] [address]Vonbsrrv [Moles/Vol]104 mmol/HOthjmf32-319JneQbadzm [facility] HospitalComment on above:Performed By: #### JUSTIN BEDOYA, #### [facility] ([id number]) [address], [address] [place], [place] [address]ZI2 [Moles/Vol]23 mmol/MQmcjfy44-73NwaAueixz [facility] Comment on above:Performed By: #### JUSTIN BEDOYA, #### [facility] ([id number]) [address], [address] [place], [place] [address]Rxetzbllmd [Mass/Vol]1.14 mg/dLNormal0.60-1.30ProSt. Francis HospitalComment on above:Result Comment: METHOD TRACEABLE TO IDMS STANDARD Performed By: #### JUSTIN BEDOYA, 37198-2 #### [facility] ([id number]) [address] [place], [place] [address]KIN/1.73 sq M.predicted among non-blacks MDRD (S/P/Bld) [Vol rate/Area]71 mL/min/{1.73_m2}Normal>59ProSt. Francis HospitalComment on above: Result Comment: Reported eGFR is based on the CKD-EPI 2020 equation that does not use a race coefficient.Performed By: #### JUSTIN BEDOYA, #### [facility] ([id number]) [address], [address] [place], [place] [address]Oeqepmx [Mass/Vol]134 mg/rFIpzl38-96KfqFgpcctSt. Francis Hospital Comment on above:Performed By: #### JUSTIN BEDOYA, 47210-6 #### [facility] ([id number]) [address], [address] [place], [place] [address]Erxeoiuzk [Moles/Vol]3.9 mmol/LNormal3.5-5.0ProSt. Francis HospitalComment on above:Performed By: #### JUSTIN BEDOYA, 46066-3 #### [facility] ([id number]) [address], [address] [place], [place] [address]Nvucfmv [Mass/Vol]6.3 g/dLNormal6.0-8.0[facility] Comment on above:Performed By: #### JUSTIN BEDOYA, 64016-1 #### [facility] ([id number]) [address], [address] [place], [place] [address]Mhumln [Moles/Vol]136 mmol/EAtvgnr536-472WzdXfwssi [place] HospitalComment on above:Performed By: #### JUSTIN BEDOYA, 94398-0 #### [facility] ([id number]) [address] [place] [address], [address] [place], [place] [address]Sbgt nitrogen [Mass/Vol]24 mg/dLNormal5-27ProOhiohealth Nelson[facility] Center HospitalComment on above:Performed By: #### JUSTIN BEDOYA, 10247-5 #### [facility] ([id number]) [address] [place] [address], [facility] [address] [place], [place] [address]AMHGACENXXgx 40-18-4521Fpjwyvkmcp [Mass/Vol]1.14 mg/dLNormal 0.60-1.30ProSt. Francis HospitalComment on above:Result Comment: METHOD TRACEABLE TO IDMS STANDARDPerformed By: #### UA #### [facility] ([id number]) [address] [place] [address], [address] [place], [place] [address]QGX/1.73 sq M.predicted among non-blacks MDRD (S/P/Bld) [Vol rate/Area]71 mL/min/{1.73_m2}Normal>59ProSt. Francis HospitalComment on above: Result Comment: Reported eGFR is based on the CKD-EPI 2020 equation that does not use a race coefficient.Performed By: #### UA #### [facility] ([id number]) [address] [place] [address] [place] [address]Xxubhiuqfe [Mass/Vol]0.98 mg/dLNormal0.60-1.30ProSt. Francis HospitalComment on above:Result Comment: METHOD TRACEABLE TO IDMS STANDARD Performed By: #### JUSTIN BEDOYA, 61780-4 #### [facility] ([id number]) [address] [facility], [address] [place], [place] [address]QWX/1.73 sq M.predicted among non-blacks MDRD (S/P/Bld) [Vol rate/Area]86 mL/min/{1.73_m2}Normal>59ProOhiohealth Nelsonville Health Center HospitalComment on above: Result Comment: Reported eGFR is based on the CKD-EPI 2020 equation that does not use a race coefficient.Performed By: #### JUSTIN BEDOYA, 06468-1 #### [facility] ([id number]) [address], [address] [place], [place] [address]Xzwrgtr.ionized (Bld) [Mass/Vol]on 15-32-6358NKCNZED CALCIUM4.7 mg/dLNormal4.5-5.3PTriHealth Bethesda North HospitalComment on above:Performed By: #### UA #### [facility] ([id number]) [address], [address] [place], [place] [address]DIXPAVI CALCIUM5.0 mg/dLNormal4.5-5.3PWood [facility] Comment on above:Performed By: #### [facility], [address]-3 #### [facility] ([id number]) [address], [address] [place], [place] [address]Volamko Glucometer (BldC) [Mass/Vol]on 77-70-2483Wzworza [Mass/Vol]253 mg/mSNwyg01-57DreJzcihdUniversity Hospitals Lake West Medical CenterGlucose [Mass/Vol]140 mg/dL Qtco61-46PcbClhbbe [place] HospitalGlucose [Mass/Vol]145 mg/fILmqp82-66BswKmbzdmSt. Francis HospitalGlucose [Mass/Vol]146 mg/dPLsuw06-63XikRhnvowUniversity Hospitals Lake West Medical Center Glucose [Mass/Vol]130 mg/gWLqqc82-21MrgCbpqflUniversity Hospitals Lake West Medical CenterGlucose [Mass/Vol] 111 mg/eUYcwh96-50ZuqGwymjoUniversity Hospitals Lake West Medical CenterHGBon 17-90-1102Okfooesnhq (Bld) [Volume fraction]40.1 %Kycxfm57-71TdbGydholSt. Francis HospitalComment on above: Performed By: #### UA #### [facility] ([id number]) [address], [address] [place], [place] [address]Ilfzmzfdiy (Bld) [Mass/Vol]13.8 g/yILbpzme24.0-17.0ProMedica [facility] HospitalComment on above:Performed By: #### UA #### [facility] ([id number]) [address], [address] [place] [address]Txzsxnnwlr (Bld) [Volume fraction]38.8 %Yqv87-77SgtVlyhex [facility] HospitalComment on above:Performed By: #### CBCA, CMP, 64022-5 #### [facility] ([id number]) [address], [address] [place], [place] [address]Xxedghngvw (Bld) [Mass/Vol]13.2 g/kNGmntzc98.0-17.0ProMedica [facility] HospitalComment on above:Performed By: #### CBCAbram, CMP, 94975-1 #### [facility] ([id number]) [address], [address] [place], [place] [address]GQHLJIJSVad 54-56-0095Krgkyyzsb [Mass/Vol]2.2 mg/dLNormal1.8-2.6 [facility] HospitalComment on above:Performed By: #### CBCA, CMP, 93849-5 #### [facility] ([id number]) [address], [address] [place], [place] [address]Aifuezqpp Ionized ISE (Bld) [Moles/Vol]on 50-84-7327Pdowbiksp [Moles/Vol]0.73 mmol/LNormal0.45-0.74Pro[facility]ica [facility] HospitalComment on above: Result Comment: NEW REFERENCE RANGEPerformed By: #### UA #### [facility] ([id number]) [address], [address] [place] [address]Sabfinohp [Moles/Vol]0.85 mmol/LHigh0.45-0.74Pro[facility]ica [facility] HospitalComment on above:Result Comment: NEW REFERENCE RANGEPerformed By: #### JUSTIN BEDOYA, #### [facility] ([id number]) [address], [address] [place] [address]Ignzvtzsr [Moles/Vol]0.58 mmol/LNormal0.45-0.60[facility] HospitalComment on above:Performed By: #### JUSTIN BEDOYA, #### [facility] ([id number]) [address], [address] [place], [place] [address]GYXOQHMR COUNT AND MPVon 09-55-2902Bhvzbyaa mean volume (Bld) [Entitic vol]8.1 fLNormal7-12Pro[facility] HospitalComment on above:Performed By: #### UA #### [facility] ([id number]) [address], [address] [place] [address]Ricgngujl (Bld) [#/Vol]179 10*3/kGExfmnb607-802RirHvevod [facility] HospitalComment on above:Performed By: #### UA #### [facility] ([id number]) [address], [address] [place] [address]Whdfepuh mean volume (Bld) [Entitic vol]7.5 fLNormal7-12 [facility] HospitalComment on above:Performed By: #### JUSTIN BEDOYA, #### [facility] ([id number]) [address], [address] [place], [place] [address]Yhsveypgm (Bld) [#/Vol]155 10*3/hNUobclc320-161MbeHgsckp Fuentes HospitalComment on above:Performed By: #### JUSTIN BEDOYA, #### [facility] ([id number]) [address], [address] [place] [address]SLNLFVCUGbg 47-53-5081Tghyhixwj [Moles/Vol]5.2 mmol/LHigh3.5-5.0 [facility] HospitalComment on above:Performed By: #### PINR, 82[address]-4, JUSTIN BEDOYA, 1989-03, #### [facility] ([id number]) [address], [address] [place] [address]Aaqlvckuh [Moles/Vol]5.1 mmol/LHigh3.5-5.0[facility] HospitalComment on above:Performed By: #### JUSTIN BEDOYA, #### [facility] ([id number]) [address], [address] [place], [place] [address]LEBXQDN AND INRon [id number] Coag (PPP) [Relative time]1.2 {INR}Normal0.9-1.2[facility] HospitalComment on above:Performed By: #### JUSTIN BEDOYA, #### [facility] ([id number]) [address], [address] [place], [place] [address]CO Coag (PPP) [Time]13.1 sNormal9.8-13.2[facility] HospitalComment on above:Performed By: #### JUSTIN BEDOYA, #### [facility] ([id number]) [address], [address] [place], [place] [address]YZELA CARDIACon 15-89-7110DZCYO'S TESTNormalProMedica Sandoval HospitalComment on above:Performed By: #### JUSTIN BEDOYA, #### [facility] ([id number]) [address], [address] [place], [place] [address]KMZD,DEFICIT2.8 MMOL/LHigh0.0-2.0[facility] Comment on above:Performed By: #### JUSTIN BEDOYA, #### [facility] ([id number]) [address], [address] [place], [place] [address]Plhb jrikqczgsbl95.6 [degF]Syktjd50.0[facility] Comment on above:Performed By: #### JUSTIN BEDOYA, #### [facility] ([id number]) [address], [address] [place], [place] [address]Eurjrgf [Mass/Vol]118 mg/vZZwft22-65CevVmjayeUniversity Hospitals [facility] Comment on above:Performed By: #### JUSTIN BEDOYA, #### [facility] ([id number]) [address], [address] [place], [place] [address]UHU1 (Bld) [Moles/Vol]23.1 mmol/FKdbpxe07-67HoyYrefwySt. Francis HospitalComment on above:Performed By: #### JUSTIN BEDOYA, #### [facility] ([id number]) [address], [address] [place], [place] [address]Rwtscuanqa (Bld) [Volume fraction]37 %Xvr27-70CklGwgxgzSt. Francis HospitalComment on above:Performed By: #### JUSTIN BEDOYA, #### [facility] ([id number]) [address], [address] [place], [place] [address]Rccsdjpdxi (Bld) [Mass/Vol]11.9 g/dLLow13.0-17.0ProSt. Francis HospitalComment on above:Performed By: #### JUSTIN BEDOYA, #### [facility] ([id number]) [address], [address] [place], [place] [address]TZLC. O2 CONC.100 %NormalProSt. Francis HospitalComment on above:Performed By: #### JUSTIN BEDOYA, #### [facility] ([id number]) [address], [address] [place], [place] [address]QBDGDGV CALCIUM5.2 mg/dLNormal4.5-5.3PTriHealth [facility] Comment on above:Performed By: #### JUSTIN BEDOYA, #### [facility] ([id number]) [address], [address] [place], [place] [address]Sxdlgz (Bld) [Partial pressure]145 mm[Hg]Wbvt09-689QkzDcfjjo Fuentes HospitalComment on above:Performed By: #### JUSTIN BEDOYA, #### [facility] ([id number]) [address], [address] [place], [place] [address]Gaxlqd saturation in Blood99.5 %Normal>90ProMedica Fuentes HospitalComment on above:Performed By: #### JUSTIN BEDOYA, #### [facility] ([id number]) [address], [address] [place], [place] [address]ATO593.4 XCHNCjsczx86-91UzjAabsai Fuentes HospitalComment on above:Performed By: #### JUSTIN BEDOYA, #### [facility] ([id number]) [address], [address] [place], [place] [address]eX (Bld)7.334 [pH]Low7.350-7.450ProMedica Fuentes HospitalComment on above:Performed By: #### JUSTIN BEDOYA, #### [facility] ([id number]) [address], [address] [place], [place] [address]Jxthvkajt [Moles/Vol]5.0 mmol/LNormal3.5-5.0ProMedica Fuentes HospitalComment on above:Performed By: #### JUSTIN BEDOYA, #### [facility] ([id number]) [address], [address] [place], [place] [address]ZWZZXI SITEALINENormalProMedica Fuentes HospitalComment on above: Performed By: #### JUSTIN BEDOYA, #### [facility] ([id number]) [address], [address] [place], [place] [address]UMWFOK TYPEArterialNormalProOhiohealth Nelsonville Health Center HospitalComment on above:Performed By: #### JUSTIN BEDOYA, #### [facility] ([id number]) [address], [address] [place], [place] [address]RKSHB'S TESTNormalProOhiohealth Nelsonville Health Center HospitalComment on above: Performed By: #### JUSTIN BEDOYA, #### [facility] ([id number]) [address], [address] [place], [place] [address]OVPC,DEFICIT1.7 MMOL/LNormal0.0-2.0[facility] Comment on above:Performed By: #### JUSTIN BEDOYA, #### [facility] ([id number]) [address] [place], [place] [address]Aiag oqlzlncmwwf77.6 [degF]Xnkmpg60.0[facility] Comment on above:Performed By: #### JUSTIN BEDOYA, #### [facility] ([id number]) [address], [address] [place], [place] [address]Btmmkrq [Mass/Vol]104 mg/pYWncw35-79KzvPmweveUniversity Hospitals Lake [facility] Center Comment on above:Performed By: #### JUSTIN BEDOYA, #### [facility] ([id number]) [address], [address] [place], [place] [address]TPG0 (Bld) [Moles/Vol]23.6 mmol/KUdujle78-59PbbBkyruxSt. Francis HospitalComment on above:Performed By: #### JUSTIN BEDOYA, #### [facility] ([id number]) [address], [address] [place], [place] [address]Wumoamvcda (Bld) [Volume fraction]46 %Bpgzig02-89XfbSyvewe [place] HospitalComment on above:Performed By: #### JUSTIN BEDOYA, #### [facility] ([id number]) [address], [address] [place], [place] [address]Tjwhktyule (Bld) [Mass/Vol]14.9 g/rNMgkkmr30.0-17.0ProMedica Fuentes HospitalComment on above:Performed By: #### CBCA, CMP, #### [facility] ([id number]) [address], [address] [place], [place] [address]KQAI. O2 CONC.100 %NormalProMedica Fuentes HospitalComment on above:Performed By: #### CBCA, CMP, #### [facility] ([id number]) [address], [address] [place], [place] [address]URQTOJR CALCIUM4.8 mg/dLNormal4.5-5.3[facility] Comment on above:Performed By: #### CBCA, CMP, #### [facility] ([id number]) [address], [address] [place], [place] [address]Bjbmae (Bld) [Partial pressure]87 mm[Hg]Lwttgd12-671YlzOuvirt Fuentes HospitalComment on above:Performed By: #### CBCA, CMP, #### [facility] ([id number]) [address], [address] [place], [place] [address]Pefeop saturation in Blood97.3 %Normal>90ProMedica Fuentes HospitalComment on above:Performed By: #### CBCA, CMP, #### [facility] ([id number]) [address], [address] [place], [place] [address]VAX879.6 ULGYHkxefv69-70VmkFvwhnp Fuentes HospitalComment on above:Performed By: #### CBCA, CMP, #### [facility] ([id number]) [address], [address] [place], [place] [address]fG (Bld)7.373 [pH]Normal7.350-7.450[facility] Comment on above:Performed By: #### JUSTIN BEDOYA, 98425-3 #### [facility] ([id number]) [address], [address] [place], [place] [address]Qfybfxskh [Moles/Vol]4.4 mmol/LNormal3.5-5.0ProOhiohealth Nelsonville Health Center HospitalComment on above:Performed By: #### JUSTIN BEDOYA, 58784-6 #### [facility] ([id number]) [address], [facility] [address] [place], [place] [address]CRXNXH SITEALINENormalProOhiohealth Nelsonville Health Center HospitalComment on above: Performed By: #### JUSTIN BEDOYA, 01879-6 #### [facility] ([id number]) [address], [address] [place], [place] [address]TFBKRZ TYPEArterialNormalProOhiohealth Nelsonville Health Center HospitalComment on above:Performed By: #### JUSTIN BEDOYA, 74868-4 #### [facility] ([id number]) [address], [address] [address]BK CHEST 1 VWon 20-75-0168HV CHEST 1 VWXR CHEST 1 VW XR CHEST 1 VW [...] by Brett Ladd MD on 03/02/2025 4:48 PMNormalUniversity Hospitals [facility] aPTT Coag (PPP) [Time]on 58-19-2562tYVY Coag (Bld) [Time]26 fEnjvwq72-44 [facility] Cleveland ClinicComment on above:Performed By: #### CBCA, CMP, #### [facility] ([id number]) [address], [address] [place], [place] [address]OQO AND AUTO DIFFon 95-97-6952KWCGDWIO BASOPHIL0.0 X10E9/LNormal 0.0-0.2ProMedAvita Health System Galion HospitalComment on above:Performed By: #### NAIN 14262- 9, CBCA, CMP, #### [facility] ([id number]) [address], [address] [place], [place] [address]SPWQSDNG NEUTROPHIL4.1 X10E9/LNormal1.5-6.6ProSt. Francis HospitalComment on above:Performed By: #### NAIN 92444-2, CBCA, CMP, 1988-03, #### [facility] ([id number]) [address], [address] [place], [place] [address]Knxhdilfu/100 WBC (Bld)0.7 %NormalProOhiohealth Nelsonville Health Center Hospital Comment on above:Performed By: #### NAIN, 99955-1, CBCA, CMP, #### [facility] ([id number]) [address], [address] [place], [place] [address]Veshjtnxoyq (Bld) [#/Vol]0.1 10*3/uLNormal0.0-0.4ProSt. Francis HospitalComment on above:Performed By: #### NAIN, 44718-8, CBCA, CMP, #### [facility] ([id number]) [address], [address] [place], [place] [address]Mvshmpsuujv/100 WBC (Bld)2.7 %NormalProSt. Francis Hospital Comment on above:Performed By: #### NAIN, 20775-6, CBCA, CMP, #### [facility] ([id number]) [address], [address] [place], [place] [address]Vbkfmpczbtu distribution width (RBC) [Ratio]12.7 %Normal 11.5-15.0ProSt. Francis HospitalComment on above:Performed By: #### NAIN 78111-1, CBCA, CMP, 1988-03, #### [facility] ([id number]) [address], [address] [place], [place] [address]Eifdtxqkud (Bld) [Volume fraction]43.1 %Fiyvzd00-32IztAhnbzxSt. Francis HospitalComment on above:Performed By: #### NAIN 56708-2, CBCA, CMP, #### [facility] ([id number]) [address], [address] [place], [place] [address]Zeifqmnfxm (Bld) [Mass/Vol]14.6 g/dDToyzls27.0-17.0ProSt. Francis HospitalComment on above:Performed By: #### NAIN, 94074-4, CBCA, CMP, #### [facility] ([id number]) [address] [address] [place], [place] [address]Qwywhthpamu (Bld) [#/Vol]0.8 10*3/uLLow1.0-3.5PTriHealth Bethesda North HospitalComment on above:Performed By: #### NAIN, 64830-1, CBCA, CMP, #### [facility] ([id number]) [address], [address] [place], [place] [address]Wegtnnhhezi/100 WBC (Bld)14.9 %NormalProOhiohealth Nelsonville Health Center Hospital Comment on above:Performed By: #### NAIN, 09134-5, CBCA, CMP, #### [facility] ([id number]) [address], [address] [place], [place] [address]JXR (RBC) [Entitic mass]30.5 wlSexvjj72-37RukCswyoj [facility]oval HospitalComment on above:Performed By: #### NAIN, 31293-5, CBCA, CMP, 1988-03, #### [facility] ([id number]) [address], [address] [place], [place] [address]SHFT (RBC) [Mass/Vol]33.9 g/aBSkcdyf31-58RorNtkyem [place] HospitalComment on above:Performed By: #### NAIN, 69435-3, CBCA, CMP, 1988-03, #### [facility] ([id number]) [address], [address] [place], [place] [address]OVG (RBC) [Entitic vol]90 jLEalatm29-747NbcMutqbq [place] HospitalComment on above:Performed By: #### NAIN, 26468-4, CBCA, CMP, #### [facility] ([id number]) [address], [address] [place], [place] [address]Icxuzrbmv (Bld) [#/Vol]0.4 10*3/uLNormal0-0.9ProOhiohealth Nelsonville Health Center HospitalComment on above:Performed By: #### PINR, 28960-0, CBCA, CMP, #### [facility] ([id number]) [address], [address] [place], [place] [address]Gttrjunia/100 WBC (Bld)7.7 %NormalUniversity Hospitals Lake West Medical Center Comment on above:Performed By: #### NAIN, 69537-8, CBCA, CMP, 1988-03, #### [facility] ([id number]) [address], [address] [place], [place] [address]Ggvdfwqbaxs/100 WBC (Bld)74.0 %[facility] Comment on above:Performed By: #### NAIN, 70197-5, CBCA, CMP, 1988-03, #### [facility] ([id number]) [address], [address] [place], [place] [address]Jrhgzvck mean volume (Bld) [Entitic vol]7.4 fLNormal7-12 [facility] ClinicComment on above:Performed By: #### NAIN, 67136-3, CBCA, CMP, 1988-03, #### [facility] ([id number]) [address], [address] [place], [place] [address]Brspyxgnw (Bld) [#/Vol]184 10*3/rTMyyumx650-819UozDrpama [place] HospitalComment on above:Performed By: #### NAIN, 13037-2, CBCA, CMP, 1988-03, #### [facility] ([id number]) [address], [address] [place], [place] [address]GTI COUNT4.80 X10E12/LNormal4.10-5.70[facility] Comment on above:Performed By: #### NAIN, 10765-6, CBCA, CMP, 1988-03, #### [facility] ([id number]) [address], [address] [place], [place] [address]TXO (Bld) [#/Vol]5.6 10*3/uLNormal4.0-11.0ProOhiohealth Nelsonville Health Center HospitalComment on above:Performed By: #### PINR, 97503-6, CBCA, CMP, 1988-03, #### [facility] ([id number]) [address], [address] [place], [place] [address]FDKDWKJRKBECU METABOLIC PANELon 17-54-7867Ejojehr [Mass/Vol]3.9 g/dLNormal3.2-5.3ProMedica Fuentes HospitalComment on above:Performed By: #### NAIN, 87697-5, CBCA, CMP, 1988-03, #### [facility] ([id number]) [address], [address] [place], [place] [address]HDI [Catalytic activity/Vol]53 U/GKtxqvg51-337QoyXgyhtv Fuentes HospitalComment on above:Performed By: #### NAIN, 35898-5, CBCA, CMP, 1988-03, #### [facility] ([id number]) [address], [address] [place], [place] [address]VJZ [Catalytic activity/Vol]15 U/LNormal0-40Pro[facility] HospitalComment on above:Performed By: #### NAIN, 65343-3, CBCA, CMP, 1988-03, #### [facility] ([id number]) [address], [address] [place], [place] [address]Fzfsr gap [Moles/Vol]8 mmol/LNormal5-15[facility] Comment on above:Performed By: #### PINR, 69081-4, CBCA, CMP, 1988-03, #### [facility] ([id number]) [address], [address] [place], [place] [address]YPR [Catalytic activity/Vol]14 U/LNormal0-41Pro[facility] HospitalComment on above:Performed By: #### NAIN, 27389-2, CBCA, CMP, 1988-03, #### [facility] ([id number]) [address], [address] [place], [place] [address]Vrznukouh [Mass/Vol]0.9 mg/dLNormal0.3-1.2ProMedSelect [facility] HospitalComment on above:Performed By: #### NAIN, 05005-5, CBCA, CMP, 1988-03, #### [facility] ([id number]) [address], [address] [place], [place] [address]Xcfrmsk [Mass/Vol]9.4 mg/dLNormal8.5-10.5ProMedSelect Medical Special[facility] HospitalComment on above:Performed By: #### NAIN 47623-9, CBCA, CMP, 1988-03, #### [facility] ([id number]) [address], [address] [place], [place] [address]Qonafkln [Moles/Vol]105 mmol/IWpzghi99-636UvlPjfsof [place] HospitalComment on above:Performed By: #### NAIN 17051-8, CBCA, CMP, 1988-03, #### [facility] ([id number]) [address], [address] [place], [place] [address]UN1 [Moles/Vol]23 mmol/PGsgzxw62-13LtkSvzakz [facility] Comment on above:Performed By: #### NAIN 80603-5, CBCA, CMP, 1988-03, #### [facility] ([id number]) [address], [address] [place], [place] [address]Ridmrwwdgq [Mass/Vol]0.96 mg/dLNormal0.60-1.30ProOhiohealth [facility] HospitalComment on above:Result Comment: METHOD TRACEABLE TO IDMS STANDARD Performed By: #### NAIN, 59057-5, CBCA, CMP, #### [facility] ([id number]) [address], [address] [place], [place] [address]TTS/1.73 sq M.predicted among non-blacks MDRD (S/P/Bld) [Vol rate/Area]88 mL/min/{1.73_m2}Normal>59ProSt. Francis HospitalComment on above: Result Comment: Reported eGFR is based on the CKD-EPI 2020 equation that does not use a race coefficient.Performed By: #### NAIN 73699-6, CBCA, CMP, #### [facility] ([id number]) [address], [facility] [address] [place], [place] [address]Eltigmg [Mass/Vol]96 mg/pPDenium91-31RryPyymfuUniversity Hospitals Lake West Medical Center Comment on above:Performed By: #### NAIN 80586-1, CBCA, CMP, #### [facility] ([id number]) [address], [facility] [address] [place], [place] [address]Visanaueh [Moles/Vol]4.6 mmol/LNormal3.5-5.0ProSt. Francis HospitalComment on above:Performed By: #### NAIN 84600-7, CBCA, CMP, #### [facility] ([id number]) [address], [facility] [address] [place], [place] [address]Cllsuqc [Mass/Vol]6.7 g/dLNormal6.0-8.0[facility] Comment on above:Performed By: #### NAIN 25161-7, CBCA, CMP, #### [facility] ([id number]) [address] [address] [place], [place] [address]Ooktah [Moles/Vol]136 mmol/SRezyik854-166XftXkrozb [place] HospitalComment on above:Performed By: #### NAIN 54688-6, CBCA, CMP, #### [facility] ([id number]) [address], [address] [place], [place] [address]Yewp nitrogen [Mass/Vol]28 mg/dLHigh5-27Pro[facility] HospitalComment on above:Performed By: #### NAIN, 56908-7, CBCA, CMP, #### [facility] ([id number]) [address], [address] [place], [place] [address]YBA [Mass/Vol]on 03-01-2025 REACTIVE PROTEIN0.6 mg/dLNormal 0.000-0.744ProMedSelect Medical Special[facility] HospitalComment on above:Performed By: #### NAIN, 10719-9, CBCA, CMP, #### [facility] ([id number]) [address], [address] [place], [place] [address]RTKRZUUBCor 67-48-8270Yazudwttr [Mass/Vol]2.3 mg/dLNormal1.8-2.6 [facility] HospitalComment on above:Performed By: #### NAIN, 14624-0, CBCA, CMP, #### [facility] ([id number]) [address] [place], [place] [address]Krrijgxesud peptide B [Mass/Vol]on 01-88-8253Bjqqscuekhm peptide B (Bld) [Mass/Vol]11 pg/mLNormal<100.0[facility] HospitalComment on above:Performed By: #### CBCA, CMP, #### [facility] ([id number]) [address] [place], [place] [address]TXDNKBR AND INRon 32-27-4413VCR Coag (PPP) [Relative time]1.0 {INR}Normal0.9-1.2ProMedSelect Medical Special[facility] HospitalComment on above:Performed By: #### NAIN, 37296-5, CBCA, CMP, #### [facility] ([id number]) [address], [address] [place] [address]UF Coag (PPP) [Time]11.9 sNormal9.8-13.2ProMedSelect [facility] HospitalComment on above:Performed By: #### NAIN, 66500-7, CBCA, CMP, 1988-03, #### [facility] ([id number]) [address] [place], [place] [address]zGVV Coag (PPP) [Time]on 37-12-8049yMJR Coag (Bld) [Time]28 s Rmkcmr41-67OejHnxyji [facility] HospitalComment on above:Performed By: #### NAIN, 11363-3, CBCA, CMP, 1988-03, #### [facility] ([id number]) [address], [address] [place], [place] [address]LET AND AUTO DIFFon 38-56-6187LQRFUPHU BASOPHIL0.1 X10E9/LNormal 0.0-0.2ProMedSelect [facility] HospitalComment on above:Performed By: #### CBCAbram CMP, #### [facility] ([id number]) [address] [place], [place] [address]MGRHEHCJ NEUTROPHIL4.9 X10E9/LNormal1.5-6.6ProSt. Anthony'S Hospitalca [facility] HospitalComment on above:Performed By: #### CBCA, CMP, #### [facility] ([id number]) [address], [address] [place], [place] [address]Irxbpqbcw/100 WBC (Bld)0.9 %NormalProOhiohealth Nelsonville Health Center Hospital Comment on above:Performed By: #### CBCA, CMP, #### [facility] ([id number]) [address] [place], [place] [address]Pifrfeybsuz (Bld) [#/Vol]0.2 10*3/uLNormal0.0-0.4ProOhiohealth [facility] Center HospitalComment on above:Performed By: #### CBCJUSTIN Valverde, #### [facility] ([id number]) [address] [place], [place] [address]Ntxgxsycebs/100 WBC (Bld)3.1 %NormalProOhiohealth Nelsonville Health Center Hospital Comment on above:Performed By: #### CBCAbram CMP, #### [facility] ([id number]) [address], [address] [place], [place] [address]Areqlgvmljh distribution width (RBC) [Ratio]13.2 %Normal 11.5-15.0ProOhiohealth Nelson[facility] Health Center HospitalComment on above:Performed By: #### CBCJUSTIN Valverde, #### [facility] ([id number]) [address] [place], [place] [address]Colvfaglmq (Bld) [Volume fraction]46.8 %Pwbmnt66-03JibXansss [place] HospitalComment on above:Performed By: #### CBCAbram CMP, #### [facility] ([id number]) [address] [place], [place] [address]Gqcuppbpra (Bld) [Mass/Vol]16.0 g/iROoxwnv95.0-17.0ProOhiohealth [facility] Center HospitalComment on above:Performed By: #### CBCA, CMP, #### [facility] ([id number]) [address] [place], [place] [address]Ufjgtfbenjs (Bld) [#/Vol]1.1 10*3/uLNormal1.0-3.5ProMedSelect [facility] HospitalComment on above:Performed By: #### CBCA, CMP, #### [facility] ([id number]) [address] [place], [place] [address]Bstoqpstssk/100 WBC (Bld)16.1 %NormalUniversity Hospitals Lake West Medical Center Comment on above:Performed By: #### CBCA, CMP, #### [facility] ([id number]) [address] [place], [place] [address]UWE (RBC) [Entitic mass]30.6 hcNgummf79-71UpeErcwbd [facility] HospitalComment on above:Performed By: #### CBCA, CMP, #### [facility] ([id number]) [address] [place], [place] [address]ESJN (RBC) [Mass/Vol]34.1 g/cRPzybkf26-64AiwBujqji [place] HospitalComment on above:Performed By: #### CBCA, CMP, #### [facility] ([id number]) [address] [place], [place] [address]EZW (RBC) [Entitic vol]90 nTLkhxri92-991IteIgfhij [place] HospitalComment on above:Performed By: #### CBCA, CMP, #### [facility] ([id number]) [address], [address] [place], [place] [address]Xgnlkvhbf (Bld) [#/Vol]0.5 10*3/uLNormal0-0.9ProOhiohealth Nelsonville Health Center HospitalComment on above:Performed By: #### CBCA, CMP, #### [facility] ([id number]) [address] [place], [place] [address]Cpduesmgl/100 WBC (Bld)7.4 %NormalUniversity Hospitals Lake [facility] Center Comment on above:Performed By: #### CBCA, CMP, #### [facility] ([id number]) [address] [place], [place] [address]Wxeqwpvlejm/100 WBC (Bld)72.5 %NormalUniversity Hospitals Lake West Medical Center Comment on above:Performed By: #### CBCAbram, CMP, #### [facility] ([id number]) [address] [place], [place] [address]Caejiqhd mean volume (Bld) [Entitic vol]7.4 fLNormal7-12 [facility] HospitalComment on above:Performed By: #### CBCA, CMP, #### [facility] ([id number]) [address], [address] [place], [place] [address]Jfdhruxyp (Bld) [#/Vol]227 10*3/oNWhlgix711-055LdpFibsau [place] HospitalComment on above:Performed By: #### CBCAbram, CMP, #### [facility] ([id number]) [address], [address] [place], [place] [address]RYF COUNT5.22 X10E12/LNormal4.10-5.70[facility] Comment on above:Performed By: #### CBCAbram, CMP, #### [facility] ([id number]) [address], [address] [place], [place] [address]GFM (Bld) [#/Vol]6.7 10*3/uLNormal4.0-11.0ProOhiohealth Nelsonville Health Center HospitalComment on above:Performed By: #### CBCA, CMP, #### [facility] ([id number]) [address] [place], [place] [address]KZFFMDDROAMNC METABOLIC PANELon 51-78-8926Rrpslgl [Mass/Vol]4.4 g/dLNormal3.2-5.3[facility] ClinicComment on above:Performed By: #### CBCA, CMP, #### [facility] ([id number]) [address] [place], [place] [address]XHM [Catalytic activity/Vol]64 U/DLowgwo46-064KwzKfnoma [place] HospitalComment on above:Performed By: #### JUSTIN BEDOYA, #### [facility] ([id number]) [address] [place], [place] [address]YTM [Catalytic activity/Vol]13 U/LNormal0-40[facility] HospitalComment on above:Performed By: #### JUSTIN BEDOYA, #### [facility] ([id number]) [address] [place], [place] [address]Gckln gap [Moles/Vol]7 mmol/LNormal5-15[facility] Comment on above:Performed By: #### JUSTIN BEDOYA, #### [facility] ([id number]) [address], [address] [place], [place] [address]JUP [Catalytic activity/Vol]14 U/LNormal0-41Pro[facility] HospitalComment on above:Performed By: #### JUSTIN BEDOYA, #### [facility] ([id number]) [address], [address] [place], [place] [address]Ksixnzizw [Mass/Vol]0.9 mg/dLNormal0.3-1.2Pro[facility]ica [facility]entes HospitalComment on above:Performed By: #### JUSTIN BEDOYA, #### [facility] ([id number]) [address] [place], [place] [address]Ufmmpth [Mass/Vol]9.5 mg/dLNormal8.5-10.5ProMedica [facility]entes HospitalComment on above:Performed By: #### JUSTIN BEDOYA, #### [facility] ([id number]) [address], [address] [place], [place] [address]Aqxzeeml [Moles/Vol]103 mmol/IIsgymh14-072WcwYoejhs [facility]entes HospitalComment on above:Performed By: #### JUSITN BEDOYA, 70048-8 #### [facility] ([id number]) [address], [address] [place], [place] [address]YU4 [Moles/Vol]29 mmol/SDzbgst85-06XtyWycbmbTriHealth [facility] Comment on above:Performed By: #### JUSTIN BEDOYA, #### [facility] ([id number]) [address], [address] [place], [place] [address]Asyrkgqmkp [Mass/Vol]1.09 mg/dLNormal0.60-1.30ProSt. Francis HospitalComment on above:Result Comment: METHOD TRACEABLE TO IDMS STANDARD Performed By: #### JUSTIN BEDOYA, #### [facility] ([id number]) [address], [address] [place], [place] [address]DLS/1.73 sq M.predicted among non-blacks MDRD (S/P/Bld) [Vol rate/Area]75 mL/min/{1.73_m2}Normal>59ProSt. Francis HospitalComment on above: Result Comment: Reported eGFR is based on the CKD-EPI 2020 equation that does not use a race coefficient.Performed By: #### JUSTIN BEDOYA, #### [facility] ([id number]) [address] [place], [place] [address]Igsqmcd [Mass/Vol]97 mg/xPWpiysr22-56FpwGzzqzeUniversity Hospitals [facility] Comment on above:Performed By: #### JUSTIN BEDOYA, #### [facility] ([id number]) [address], [address] [place], [place] [address]Wqqwbrscr [Moles/Vol]4.3 mmol/LNormal3.5-5.0ProSt. Francis HospitalComment on above:Performed By: #### JUSTIN BEDOYA, #### [facility] ([id number]) [address], [address] [place], [place] [address]Ghwpeqs [Mass/Vol]7.4 g/dLNormal6.0-8.0[facility] Comment on above:Performed By: #### JUSTIN BEDOYA, 55897-1 #### [facility] ([id number]) [address], [address] [place], [place] [address]Ahmfxp [Moles/Vol]139 mmol/VRmwotf401-638XdzJjbjgk [facility]entes HospitalComment on above:Performed By: #### JUSTIN BEDOYA, 87455-8 #### [facility] ([id number]) [address], [address] [place], [place] [address]Wlxz nitrogen [Mass/Vol]27 mg/dLNormal5-27[facility] HospitalComment on above:Performed By: #### JUSTIN BEDOYA, #### [facility] ([id number]) [address], [address] [place], [place] [address]VIQYVWGXZyp 30-65-9163Urbxzldwz [Mass/Vol]2.3 mg/dLNormal1.8-2.6 [facility] HospitalComment on above:Performed By: #### JUSTIN BEDOYA, 91520-5 #### [facility] ([id number]) [address], [address] [place], [place] [address]VEVUKMXDCCdp 37-67-6962Bwonljcgz Ql (U)NegativeNormalNEG [facility] HospitalComment on above:Performed By: #### UA #### [facility] ([id number]) [address], [address] [place], [place] [address]XUAEI/HGBLargeAbnormalNEGProMedica Fuentes HospitalComment on above:Performed By: #### UA #### [facility] ([id number]) [address], [address] [place], [place] [address]Amjgu (U)YELLOWNormalYELLOWProMedica Fuentes HospitalComment on above:Performed By: #### UA #### [facility] ([id number]) [address] [place], [place] [address]Dnasjjh Ql (U)NegativeNormalNEGProMedica Fuentes HospitalComment on above:Performed By: #### UA #### [facility] ([id number]) [address] [place], [place] [address]Qzqashl Ql (U)10 mg/dLAbnormalNEGProMedica [facility] [facility] Comment on above:Performed By: #### UA #### [facility] ([id number]) [address], [address] [place], [place] [address]Gryzqpbsl esterase Test strip Ql (U)NegativeNormalNEGProMedica Fuentes HospitalComment on above:Performed By: #### UA #### [facility] ([id number]) [address], [address] [place], [place] [address]GIVEDRVLRGRJHIuhtrwvqBWYWLseQhyiai [facility]entes HospitalComment on above:Performed By: #### UA #### [facility] ([id number]) [address], [address] [place], [place] [address]Bxqncxc Ql (U)NegativeNormalNEGProMedica Fuentes HospitalComment on above:Performed By: #### UA #### [facility] ([id number]) [address], [address] [place], [place] [address]nV (U)6.0 [pH]Normal5.0-8.5[facility]entes HospitalComment on above:Performed By: #### UA #### [facility] ([id number]) [address] [place], [place] [address]Ygahchg Ql (U)100 mg/dLAbnormalNEGProMedica [facility] Comment on above:Performed By: #### UA #### [facility] ([id number]) [address], [address] [place], [place] [address]F.B.SAQYQ911 /hpfHigh0-5ProMedSelect Medical Special[facility], Inc HospitalComment on above:Performed By: #### UA #### [facility] ([id number]) [address], [address] [place], [place] [address]Afqwquvr gravity (U) [Rel density]1.162Zxeyrj9.003-1.035 [facility] HospitalComment on above:Performed By: #### UA #### [facility] ([id number]) [address] [place] [address], [address] [place], [place] [address]GBTNIZTP EPITHELIUM<7Sinitn5-8BkpCjgdeu [place] HospitalComment on above:Performed By: #### UA #### [facility] ([id number]) [address] [place] [address], [address] [place], [place] [address]EHCRIJWFMEIAEQCnxwfvWJGVJEupDmxmjw [facility] HospitalComment on above:Performed By: #### UA #### [facility] ([id number]) [address] [place] [address], [address] [place], [place] [address]Ybhopjfxirng (U) [Mass/Vol]mg/dLNormal<1.1ProMedSelect Medical Specialty [facility], Inc HospitalComment on above:Performed By: #### UA #### [facility] ([id number]) [address] [place] [address], [address] [place], [place] [address]Z.B.CELLS4 /hpfNormal0-5PWood [facility] HospitalComment on above:Performed By: #### UA #### [facility] ([id number]) [address] [place] [address], [address] [place], [place] [address]OHI AND AUTO DIFFon 03-67-5832ATIQOHTP BASOPHIL0.1 X10E9/LNormal 0.0-0.2ProMedWestern [facility] HospitalComment on above:Performed By: #### 50322-4 #### [facility] ([id number]) [address] [place] [address]DHMDTUDA NEUTROPHIL5.7 X10E9/LNormal1.5-6.6ProSt. [facility] HospitalComment on above:Performed By: #### 87170-6 #### [facility] ([id number]) [address] [place] [address]Kodcgtdwf/100 WBC (Bld)0.7 %NormalMemorial Hospital Comment on above:Performed By: #### 01728-6 #### [facility] ([id number]) [address] [place] [address]Vbnbhxaqzsr (Bld) [#/Vol]0.2 10*3/uLNormal0.0-0.4Memorial HospitalComment on above:Performed By: #### 04702-1 #### [facility] ([id number]) [address] [place] [address]Wnqclzkufea/100 WBC (Bld)2.6 %NormalMemorial Hospital Comment on above:Performed By: #### 68975-2 #### [facility] ([id number]) [address] [place] [address]Zzgengmkswv distribution width (RBC) [Ratio]12.9 %Normal 11.5-15.0Memorial HospitalComment on above:Performed By: #### 26445-7 #### [facility] ([id number]) [address] [place] [address]59[address]Urihwccwtx (Bld) [Volume fraction]44.5 %Xhfabe22-36LrnCexoleSt. Joseph Health [facility] Station HospitalComment on above:Performed By: #### 77465-1 #### [facility] ([id number]) [address] [place] [address] 20556Mvzsaipddo (Bld) [Mass/Vol]15.4 g/cUMuejon42.0-17.0Memorial HospitalComment on above:Performed By: #### 25106-6 #### [facility] ([id number]) [address] [place] [address] 53004Texunxqedli (Bld) [#/Vol]1.0 10*3/uLNormal1.0-3.5Pro[facility] St. Mary Medical CenterComment on above:Performed By: #### 09568-1 #### [facility] ([id number]) [address] [place] [address] 81341Mymlaptwrme/100 WBC (Bld)13.5 %NormalProSt. Joseph [facility] Hospital Comment on above:Performed By: #### 08639-7 #### [facility] ([id number]) [address] [place] [address] 54153RJX (RBC) [Entitic mass]31.1 lpTvegcx32-64ViwIlvlxoSt. Joseph Health [facility] Station HospitalComment on above:Performed By: #### 40382-0 #### [facility] ([id number]) [address] [place] [address] 15801SBBX (RBC) [Mass/Vol]34.7 g/dXCemxor23-13MeeFleytnSt. Joseph Health [facility] Station HospitalComment on above:Performed By: #### 63743-7 #### [facility] ([id number]) [address] [place] [address] 21523PKE (RBC) [Entitic vol]90 zHUdjlrf34-063QciJrftbz [place] HospitalComment on above:Performed By: #### 02790-1 #### [facility] ([id number]) [address] [place] [address] 054[address]Hxkgmaukd (Bld) [#/Vol]0.5 10*3/uLNormal0-0.9Memorial HospitalComment on above:Performed By: #### 67285-4 #### [facility] ([id number]) [address] [place] [address] 09658Erxezwbco/100 WBC (Bld)6.9 %[facility] Comment on above:Performed By: #### 90759-4 #### [facility] ([id number]) [address] [place] [address] 35710Umigalvkjvl/100 WBC (Bld)76.3 %[facility] Comment on above:Performed By: #### 58951-5 #### [facility] ([id number]) [address] [place] [address] 66622Retrzgke mean volume (Bld) [Entitic vol]7.8 fLNormal7-12 [facility] HospitalComment on above:Performed By: #### 93611-3 #### [facility] ([id number]) [address] [place] [address], [place] [address]Fopnxfemu (Bld) [#/Vol]213 10*3/kKKzbusm222-023CflMwpsloMemorial HospitalComment on above:Performed By: #### 27505-8 #### [facility] ([id number]) [address] [place] [address]29[address]ZAI COUNT4.96 X10E12/LNormal4.10-5.70[facility] Comment on above:Performed By: #### 06878-4 #### [facility] ([id number]) [address] [place] [address], [place] [address]GIH (Bld) [#/Vol]7.5 10*3/uLNormal4.0-11.0Memorial HospitalComment on above:Performed By: #### 02921-9 #### [facility] ([id number]) [address] [place] [address] 17002SLITHBVTUMMEG METABOLIC PANELon 33-90-3814Wdumdsg [Mass/Vol]3.8 g/dLNormal3.2-5.3PSaint Joseph Hospital HospitalComment on above:Performed By: #### 93879-9 #### [facility] ([id number]) [address] [place] [address], [place] [address]XFD [Catalytic activity/Vol]58 U/WWhqarg43-303ClkEcyqtnSt. Joseph Health [facility] HospitalComment on above:Performed By: #### 08019-3 #### [facility] ([id number]) [address] [place] [address], [place] [address]EZF [Catalytic activity/Vol]16 U/LNormal0-40ProSt. [facility] Health [facility] HospitalComment on above:Performed By: #### 11659-9 #### [facility] ([id number]) [address] [place] [address], [place] [address]Wspib gap [Moles/Vol]6 mmol/LNormal5-15ProSt. [facility] Health [facility] HospitalComment on above:Performed By: #### 81874-0 #### [facility] ([id number]) [address] [place] [address], [place] [address]HZW [Catalytic activity/Vol]16 U/LNormal0-41ProSt. [facility] HospitalComment on above:Performed By: #### 34929-9 #### [facility] ([id number]) [address] [place] [address], [place] [address]Dgkmvxile [Mass/Vol]1.0 mg/dLNormal0.3-1.2PThe [facility]vue HospitalComment on above:Performed By: #### 43799-8 #### [facility] ([id number]) [address] [place] [address], [place] [address]Cfryeiz [Mass/Vol]9.0 mg/dLNormal8.5-10.5PSaint Joseph Hospital HospitalComment on above:Performed By: #### 43873-4 #### [facility] ([id number]) [address] [place] [address], [place] [address]Iinfjmdk [Moles/Vol]103 mmol/VMnqvwr14-477YcxRzdcqwSt. Joseph Health [facility] HospitalComment on above:Performed By: #### 42754-8 #### [facility] ([id number]) [address] [place] [address] 62671GB1 [Moles/Vol]24 mmol/PFpucsd63-71HkzMxbdklThe [facility] Hospital Comment on above:Performed By: #### 62216-3 #### [facility] ([id number]) [address] [place] [address], [place] [address]Dsrywwyjjo [Mass/Vol]1.23 mg/dLHigh0.70-1.20Memorial HospitalComment on above:Result Comment: METHOD TRACEABLE TO IDMS STANDARD Performed By: #### 88273-8 #### [facility] ([id number]) [address] [place] [address] 23297JZE/1.73 sq M.predicted among non-blacks MDRD (S/P/Bld) [Vol rate/Area]65 mL/min/{1.73_m2}Normal>59Memorial HospitalComment on above:Result Comment: Reported eGFR is based on the CKD-EPI 2020 equation that does not use a race coefficient.Performed By: #### 94618-5 #### [facility] ([id number]) [address] [place] [address] 84528Rtsfslx [Mass/Vol]121 mg/rOOkei96-24FezXjxnhtMemorial Hospital Comment on above:Performed By: #### 45283-2 #### [facility] ([id number]) [address] [place] [address] 575[address]Eezegjhsg [Moles/Vol]3.9 mmol/LNormal3.5-5.0ProSt. [facility] Health [facility] HospitalComment on above:Performed By: #### 15311-0 #### [facility] ([id number]) [address] [place] [address], [place] [address]Mezvmvx [Mass/Vol]7.1 g/dLNormal6.0-8.0ProSt. Joseph Health [facility] HospitalComment on above:Performed By: #### 98666-7 #### [facility] ([id number]) [address] [place] [address] 46166Grkzrp [Moles/Vol]133 mmol/FKta725-297RghIwhtgzSt. [facility] HospitalComment on above:Performed By: #### 30325-3 #### [facility] ([id number]) [address] [place] [address] 02134Gipm nitrogen [Mass/Vol]28 mg/dLHigh5-27ProSt. Joseph Health [facility] HospitalComment on above:Performed By: #### 46407-5 #### [facility] ([id number]) [address] [place] [address] 47692SVRLCUHTCkx 79-27-2334Menfixgis [Mass/Vol]2.4 mg/dLNormal 1.8-2.6Memorial HospitalComment on above:Performed By: #### 22747-8 #### [facility] ([id number]) [address] [place] [address] 15385RZE AND AUTO DIFFon 32-73-3082TTXXIINP BASOPHIL0.1 X10E9/L Normal0.0-0.2ProMedica St. Mary Medical CenterComment on above:Performed By: #### 01460-5 #### [facility] ([id number]) [address] [place] [address] 70771WQWJWBEK NEUTROPHIL4.5 X10E9/LNormal1.5-6.6ProSt. [facility] HospitalComment on above:Performed By: #### 54625-9 #### [facility] ([id number]) [address] [place] [address] 13433Ekemquxrw/100 WBC (Bld)0.9 %NormalMemorial Hospital Comment on above:Performed By: #### 14988-9 #### [facility] ([id number]) [address] [place] [address] 44393Zrzqjvlicts (Bld) [#/Vol]0.3 10*3/uLNormal0.0-0.4Memorial HospitalComment on above:Performed By: #### 12531-0 #### [facility] ([id number]) [address] [place] [address] 97054Ybnmjizpype/100 WBC (Bld)4.1 %NormalMemorial Hospital Comment on above:Performed By: #### 01776-0 #### [facility] ([id number]) [address] [place] [address] 27506Dakwwvxmazq distribution width (RBC) [Ratio]12.8 %Normal 11.5-15.0Memorial HospitalComment on above:Performed By: #### 99547-1 #### [facility] ([id number]) [address] [place] [address] 85803Prhpovjjfm (Bld) [Volume fraction]41.2 %Cnfctd06-20AgcHeawdhSt. Joseph Health [facility] HospitalComment on above:Performed By: #### 84648-3 #### [facility] ([id number]) [address] [place] [address] 46122Jotebfqufo (Bld) [Mass/Vol]14.4 g/sHGdkbmc44.0-17.0Memorial HospitalComment on above:Performed By: #### 17419-9 #### [facility] ([id number]) [address] [place] [address] 47019Jpvpyomjfqg (Bld) [#/Vol]0.9 10*3/uLLow1.0-3.5PThe [facility]vue HospitalComment on above:Performed By: #### 38169-0 #### [facility] ([id number]) [address] [place] [address] 17843Gmksozbevdz/100 WBC (Bld)14.4 %NormalMemorial Hospital Comment on above:Performed By: #### 60026-8 #### [facility] ([id number]) [address] [place] [address] 36705XYN (RBC) [Entitic mass]31.3 vmTvpzrk31-00BuyEnvrrdMemorial HospitalComment on above:Performed By: #### 18715-1 #### [facility] ([id number]) [address] [place] [address] 92591HPNG (RBC) [Mass/Vol]35.0 g/jNBsljog72-45HfwPolvvlSt. Joseph Health [facility] HospitalComment on above:Performed By: #### 25198-1 #### [facility] ([id number]) [address] [place] [address] 30146ARS (RBC) [Entitic vol]90 iCTbbntw45-201KtuHjokpoMemorial HospitalComment on above:Performed By: #### 41366-2 #### [facility] ([id number]) [address] [place] [address] 16856Ebahfdyqk (Bld) [#/Vol]0.5 10*3/uLNormal0-0.9Memorial HospitalComment on above:Performed By: #### 09452-2 #### [facility] ([id number]) [address] [place] [address] 93962Zschzfndi/100 WBC (Bld)8.4 %[facility] Comment on above:Performed By: #### 69030-2 #### [facility] ([id number]) [address] [place] [address] 32786Kcejvfmubac/100 WBC (Bld)72.2 %NormalMemorial Hospital Comment on above:Performed By: #### 17387-1 #### [facility] ([id number]) [address] [place] [address] 84695Okvlpdie mean volume (Bld) [Entitic vol]7.5 fLNormal7-12 ProMedicEisenhower Medical CenterComment on above:Performed By: #### 19369-9 #### [facility] ([id number]) [address] [place] [address] 99808Ojoipjhbg (Bld) [#/Vol]172 10*3/lMIqklye348-849HupVcfudkMemorial HospitalComment on above:Performed By: #### 81351-2 #### [facility] ([id number]) [address] [place] [address] 31634ZVD COUNT4.60 X10E12/LNormal4.10-5.70[facility] Comment on above:Performed By: #### 22980-7 #### [facility] ([id number]) [address] [place] [address] 84734NQK (Bld) [#/Vol]6.3 10*3/uLNormal4.0-11.0Memorial HospitalComment on above:Performed By: #### 39852-2 #### [facility] ([id number]) [address] [place] [address] 27177PIYZOLTIELDKN METABOLIC PANELon 71-94-8816Yplhdfw [Mass/Vol]4.0 g/dLNormal3.2-5.3PThe [facility]vue HospitalComment on above:Performed By: #### 80904-5 #### [facility] ([id number]) [address], [address] FLO[address] [place], [place] [address]UQQ [Catalytic activity/Vol]51 U/UVwvyfi27-680ZdsUnsnwuSt. [facility] HospitalComment on above:Performed By: #### 37841-5 #### [facility] ([id number]) [address] [place] [address], [place] [address]IFQ [Catalytic activity/Vol]15 U/LNormal0-40ProSt. Joseph Health [facility] HospitalComment on above:Performed By: #### 67698-5 #### [facility] ([id number]) [address] [place] [address], [place] [address]Hohgd gap [Moles/Vol]6 mmol/LNormal5-15ProSt. [facility] Health [facility] HospitalComment on above:Performed By: #### 68766-7 #### [facility] ([id number]) [address] [place] [address], [place] [address]JEN [Catalytic activity/Vol]15 U/LNormal0-41ProSt. Joseph Health [facility] HospitalComment on above:Performed By: #### 39491-0 #### [facility] ([id number]) [address] [place] [address], [place] [address]Jbithtgro [Mass/Vol]1.2 mg/dLNormal0.3-1.2ProMedHazel Hawkins Memorial HospitalComment on above:Performed By: #### 24869-0 #### [facility] ([id number]) [address] [place] [address], [place] [address]Ealxdbs [Mass/Vol]8.9 mg/dLNormal8.5-10.5PThe [facility]vue HospitalComment on above:Performed By: #### 27502-5 #### [facility] ([id number]) [address] [place] [address], [place] [address]Gvbbxikd [Moles/Vol]107 mmol/NGdcoun42-209CbqDvmulcSt. Joseph Health College Station HospitalComment on above:Performed By: #### 47063-9 #### [facility] ([id number]) [address] [place] [address] 32441XE1 [Moles/Vol]23 mmol/GTveman60-03RpwUqnhrtThe [facility] Hospital Comment on above:Performed By: #### 64892-3 #### [facility] ([id number]) [address] [place] [address] 75042Oysvaqqseq [Mass/Vol]1.04 mg/dLNormal0.70-1.20Memorial HospitalComment on above:Result Comment: METHOD TRACEABLE TO IDMS STANDARD Performed By: #### 10415-7 #### [facility] ([id number]) [address] [place] [address] 21766FON/1.73 sq M.predicted among non-blacks MDRD (S/P/Bld) [Vol rate/Area]80 mL/min/{1.73_m2}Normal>59Memorial HospitalComment on above:Result Comment: Reported eGFR is based on the CKD-EPI 2020 equation that does not use a race coefficient.Performed By: #### 81666-6 #### [facility] ([id number]) [address] [place] [address] 45948Skbtjzk [Mass/Vol]115 mg/cCCehz79-08YkkGoeqvqMemorial Hospital Comment on above:Performed By: #### 80745-2 #### [facility] ([id number]) [address] [place] [address] 61222Ebrklsbuq [Moles/Vol]3.9 mmol/LNormal3.5-5.0Memorial HospitalComment on above:Performed By: #### 81560-3 #### [facility] ([id number]) [address] [place] [address], [place] [address]Xcfaliy [Mass/Vol]6.6 g/dLNormal6.0-8.0Memorial HospitalComment on above:Performed By: #### 72412-2 #### [facility] ([id number]) [address] [place] [address] 91172Cmskhs [Moles/Vol]136 mmol/WUhcrzr173-867UubMvgsuj Fremont HospitalComment on above:Performed By: #### 95817-6 #### [facility] ([id number]) [address] [place] [address], [place] [address]Rhdi nitrogen [Mass/Vol]23 mg/dLNormal5-27ProSt. Joseph Health College Station HospitalComment on above:Performed By: #### 13165-0 #### [facility] ([id number]) [address] [place] [address], [place] [address]PIUHACZZMum [id number] [Mass/Vol]2.4 mg/dLNormal 1.8-2.6Memorial HospitalComment on above:Performed By: #### 68525-8 #### [facility] ([id number]) [address] [place] [address] 10261Qjvzwcnyl [Mass/Vol]1.9 mg/dLNormal1.8-2.6ProSt. Joseph Health College Station HospitalComment on above:Performed By: #### 33171-4 #### [facility] ([id number]) [address] [place] [address]17[address]PPS AND AUTO DIFFon 66-86-0687QXJNKMQS BASOPHIL0.1 X10E9/L Normal0.0-0.2ProMedHazel Hawkins Memorial HospitalComment on above:Performed By: #### 91172-8, 3040-3, CMP, CBCA #### [facility] ([id number]) [address] [place] [address], [place] [address]YSRCINIG NEUTROPHIL4.4 X10E9/LNormal1.5-6.6ProSt. Joseph Health College Station HospitalComment on above:Performed By: #### 69585-3, 3040-3, CMP, CBCA #### [facility] ([id number]) [address] [place] [address] 77399Xnpvbzvxw/100 WBC (Bld)0.9 %NormalMemorial Hospital Comment on above:Performed By: #### 72261-4, 3040-3, CMP, CBCA #### [facility] ([id number]) [address] [place] [address] 60779Ziyosofllaz (Bld) [#/Vol]0.2 10*3/uLNormal0.0-0.4ProSt. Joseph Health College Station HospitalComment on above:Performed By: #### 62746-0, 3039-3, CMP, CBCA #### [facility] ([id number]) [address] [place] [address] 97331Dylgfjupwnp/100 WBC (Bld)3.1 %NormalMemorial Hospital Comment on above:Performed By: #### 31752-1, 3039-3, CMP, CBCA #### [facility] ([id number]) [address] [place] [address] 92477Beswvkjjfqs distribution width (RBC) [Ratio]12.9 %Normal 11.5-15.0Memorial HospitalComment on above:Performed By: #### 60635-0, 304-3, CMP, CBCA #### [facility] ([id number]) [address] [place] [address] 93261Ahcgyxisnq (Bld) [Volume fraction]40.6 %Yccild44-79UyzTagsanSt. Joseph Health College Station HospitalComment on above:Performed By: #### 12360-1, 3040-3, CMP, CBCA #### [facility] ([id number]) [address] [place] [address] 23512Ygfdghcfls (Bld) [Mass/Vol]14.1 g/mQJdfqja47.0-17.0ProSt. Joseph Health College Station HospitalComment on above:Performed By: #### 77394-2, 3039-3, CMP, CBCA #### [facility] ([id number]) [address] [place] [address] 67590Bshkurionla (Bld) [#/Vol]0.9 10*3/uLLow1.0-3.5PThe Bellevue HospitalComment on above:Performed By: #### 33038-6, 3039-3, CMP, CBCA #### [facility] ([id number]) [address] [place] [address] 84665Mnbpaeeioei/100 WBC (Bld)14.4 %NormalMemorial Hospital Comment on above:Performed By: #### 33544-2, 3039-3, CMP, CBCA #### [facility] ([id number]) [address] [place] [address] 19705XYF (RBC) [Entitic mass]31.4 cqSepiwf36-79TbtSjamgbSt. Joseph Health College Station HospitalComment on above:Performed By: #### 60979-7, 3039-3, CMP, CBCA #### [facility] ([id number]) [address] [place] [address] 82670AOHQ (RBC) [Mass/Vol]34.7 g/kKKcrkdi35-51AuxInhsbyMemorial HospitalComment on above:Performed By: #### 90212-6, 3039-3, CMP, CBCA #### [facility] ([id number]) [address] [place] [address] 65142USO (RBC) [Entitic vol]90 xKWcfjvl34-392KzpJwrudpMemorial HospitalComment on above:Performed By: #### 70618-0, 3039-3, CMP, CBCA #### [facility] ([id number]) [address] [place] [address] 03237Tbdveqzcy (Bld) [#/Vol]0.5 10*3/uLNormal0-0.9Memorial HospitalComment on above:Performed By: #### 36170-0, 3040-3, CMP, CBCA #### [facility] ([id number]) [address] [place] [address] 99089Vwhvdwvxy/100 WBC (Bld)9.0 %NormalMem[facility] Hospital Comment on above:Performed By: #### 17064-2, 0-3, CMP, CBCA #### [facility] ([id number]) [address] [place] [address] 39988Wzzaevlzgds/100 WBC (Bld)72.6 %NormalMem[facility] Hospital Comment on above:Performed By: #### 47024-5, 3039-3, CMP, CBCA #### [facility] ([id number]) [address] [place] [address] 83007Cskvkhjz mean volume (Bld) [Entitic vol]7.6 fLNormal7-12 Memorial HospitalComment on above:Performed By: #### 96274-2, 3039-3, CMP, CBCA #### [facility] ([id number]) [address] [place] [address] 90802Rwvmerocx (Bld) [#/Vol]160 10*3/aJWnsfsw365-697UtyTrbgzzMemorial HospitalComment on above:Performed By: #### 86191-3, 3040-3, CMP, CBCA #### [facility] ([id number]) [address] [place] [address] 36101CNG COUNT4.49 X10E12/LNormal4.10-5.70[facility] Comment on above:Performed By: #### 04908-7, 3040-3, CMP, CBCA #### [facility] ([id number]) [address] FLO[address] [place], [place] [address]CEL (Bld) [#/Vol]6.0 10*3/uLNormal4.0-11.0ProSelect Medical Special[facility] HospitalComment on above:Performed By: #### 59271-4, 3040-3, CMP, CBCA #### [facility] ([id number]) [address] [place] [address] 91144APETBNUMPIGGJ METABOLIC PANELon 07-72-8665Ikhlcsc [Mass/Vol]3.6 g/dLNormal3.2-5.3ProMedica St. Mary Medical CenterComment on above:Performed By: #### 42596-9, 3039-3, CMP, CBCA #### [facility] ([id number]) [address] [place] [address], [place] [address]JTM [Catalytic activity/Vol]50 U/ACbgrjy28-135HylEsvxeiSt. Joseph Health College Station HospitalComment on above:Performed By: #### 18407-1, 3039-3, CMP, CBCA #### [facility] ([id number]) [address] [place] [address], [place] 30[address]RFN [Catalytic activity/Vol]15 U/LNormal0-40ProSt. [facility] Health [facility] HospitalComment on above:Performed By: #### 45153-5, 0-3, CMP, CBCA #### [facility] ([id number]) [address] [place] [address], [place] 64[address]Fugra gap [Moles/Vol]5 mmol/LNormal5-15ProSelect [facility] HospitalComment on above:Performed By: #### 82562-2, 0-3, CMP, CBCA #### [facility] ([id number]) [address] [place] [address], [place] 12900CGI [Catalytic activity/Vol]13 U/LNormal0-41ProSelect [facility] HospitalComment on above:Performed By: #### 42448-4, 3039-3, CMP, CBCA #### [facility] ([id number]) [address] [place] [address], [place] 92018Ielazshaz [Mass/Vol]1.1 mg/dLNormal0.3-1.2PThe Bellevue HospitalComment on above:Performed By: #### 23659-6, 3040-3, CMP, CBCA #### [facility] ([id number]) [address] [place] [address], [place] [address]Fonappx [Mass/Vol]9.1 mg/dLNormal8.5-10.5PThe Bellevue HospitalComment on above:Performed By: #### 93212-4, 3039-3, CMP, CBCA #### [facility] ([id number]) [address] [place] [address], [place] 69[address]Juqclyat [Moles/Vol]110 mmol/JRmpl12-710VjbGidlrvSt. Joseph Health [facility] HospitalComment on above:Performed By: #### 11059-5, 3039-3, CMP, CBCA #### [facility] ([id number]) [address] [place] [address], [place] 21334PQ2 [Moles/Vol]25 mmol/GOxjvgt94-10DmxRdmiosThe [facility] Hospital Comment on above:Performed By: #### 84123-9, 3039-3, CMP, CBCA #### [facility] ([id number]) [address] [place] [address], [place] 97[address]Cnhojzymmm [Mass/Vol]0.99 mg/dLNormal0.70-1.20ProSt. Joseph Health [facility] Station HospitalComment on above:Result Comment: METHOD TRACEABLE TO IDMS STANDARD Performed By: #### 82366-2, 304-3, CMP, CBCA #### [facility] ([id number]) [address] [place] [address] 40086PDT/1.73 sq M.predicted among non-blacks MDRD (S/P/Bld) [Vol rate/Area]85 mL/min/{1.73_m2}Normal>59ProSt. Joseph Health [facility] Station HospitalComment on above:Result Comment: Reported eGFR is based on the CKD-EPI 2020 equation that does not use a race coefficient.Performed By: #### 78988-2, 3039-3, JUSTIN, ELKE #### [facility] ([id number]) [address] [place] [address] 86248Vqmskku [Mass/Vol]123 mg/sHSzca45-72BjoHanwirMemorial Hospital Comment on above:Performed By: #### 38405-5, 3039-3, JUSTIN, CBCA #### [facility] ([id number]) [address] [place] [address], [place] 124[address]Zndwssrcd [Moles/Vol]3.9 mmol/LNormal3.5-5.0ProSt. Joseph Health [facility] Station HospitalComment on above:Performed By: #### 96659-9, 3040-01, JUSTIN, CBCA #### [facility] ([id number]) [address] [place] [address], [place] [address]Tpxbdcu [Mass/Vol]6.4 g/dLNormal6.0-8.0ProSt. Joseph Health [facility] HospitalComment on above:Performed By: #### 26793-4, 3, JUSTIN, CBCA #### [facility] ([id number]) [address] [place] [address] 73245Pvodgv [Moles/Vol]140 mmol/SNlplxq408-363MkfWptzum [facility] HospitalComment on above:Performed By: #### 02311-5, 3039-3, CMP, CBCA #### [facility] ([id number]) [address] [place] [address], [place] 117[address]Cagk nitrogen [Mass/Vol]22 mg/dLNormal5-27ProSt. Joseph Health [facility] HospitalComment on above:Performed By: #### 22667-3, 3039-3, CMP, CBCA #### [facility] ([id number]) [address] [place] [address] 13875EOA A1C (GLYCO-HGB)on 86-27-8009Wejdvgw [Mass/Vol]117 mg/dL NormalProSt. Joseph Health [facility] Station HospitalComment on above:Performed By: #### 63831-6 #### [facility] ([id number]) [address] [place] [address] 27288NcI9f (Bld) [Mass fraction]5.7 %High4.4-5.6Memorial HospitalComment on above:Result Comment: NOTE ADA Guidelines Result HgbA1c Normal : less than 5.7 % Prediabetes : 5.7 % to 6.4 % Diabetes : > 6.4 % Use with caution in patients with abnormal hemoglobin variants as the half-life of red blood cells and in vivo glycation rates are affected.Performed By: #### 96741-9 #### [facility] ([id number]) [address] [place] [address] 90462Vimdz 1996 panelon 44-95-6086Ujohbhadedf [Mass/Vol]104 mg/dLLow 150-200ProSt. Joseph Health [facility] HospitalComaspirus ontonagon hospital on above:Performed By: #### 65695-3, 3040-3, CMP, CBCA #### [facility] ([id number]) [address] [place] [address] 48053Wgeznsnbgfs in HDL [Mass/Vol]29 mg/dLLow>39ProSt. [facility] HospitalComment on above:Result Comment: HDL <40 mg/dL - High Risk HDL > or = 40mg/dL- Desirable HDL >60 mg/dL - Negative Risk Performed By: #### 86561-8, 3040-3, CMP, CBCA #### [facility] ([id number]) [address] [place] [address] 67368Lvlinsjzcot in LDL [Mass/Vol]53 mg/dLNormal<130ProSt. [facility] HospitalComment on above:Result Comment: LDL <100 mg/dL - Desirable LDL >160 mg/dL - High Risk Performed By: #### 96732-4, 3040-3, CMP, CBCA #### [facility] ([id number]) [address] [place] [address] 54399Xvdiwvbplkd in VLDL [Mass/Vol]22 mg/dLNormal0-30ProSt. [facility] Health [facility] HospitalComment on above:Performed By: #### 43708-2, 3040-3, CMP, CBCA #### [facility] ([id number]) [address] [place] [address] 80982KXSOOXVTNDH:HDL3.6Dfewej3.0-5.0[facility] Comment on above:Performed By: #### 09784-4, 3040-3, CMP, CBCA #### [facility] ([id number]) [address] [place] [address] 50616Esetcjslbwfd [Mass/Vol]109 mg/bIYgrpda37-977DxuNuffdc [facility] HospitalComment on above:Performed By: #### 71107-4, 3040-3, CMP, CBCA #### [facility] ([id number]) [address] [place] [address] 03087EXDDLSVBHbh 59-03-6894Lsgkzguoh [Mass/Vol]1.9 mg/dLNormal 1.8-2.6ProSt. Joseph Health [facility] HospitalComment on above:Performed By: #### 26081-6, 3040-3, CMP, CBCA #### [facility] ([id number]) [address] [place] [address], [place] 65594XBK AND AUTO DIFFon 75-67-2740BABQPTXF BASOPHIL0.0 X10E9/L Normal0.0-0.2PThe Bellevue HospitalComment on above:Performed By: #### 78946-4, 304-3, CMP, CBCA #### [facility] ([id number]) [address] [place] [address] 91081JKXSEEKP NEUTROPHIL5.7 X10E9/LNormal1.5-6.6ProSt. Joseph Health [facility] HospitalComment on above:Performed By: #### 97718-8, 3039-3, CMP, CBCA #### [facility] ([id number]) [address] [place] [address] 00612Eqkjtutlx/100 WBC (Bld)0.6 %NormalMemorial Hospital Comment on above:Performed By: #### 86255-9, 3039-3, CMP, CBCA #### [facility] ([id number]) [address] [place] [address] 20119Hzrdcmjlwxj (Bld) [#/Vol]0.1 10*3/uLNormal0.0-0.4Memorial HospitalComment on above:Performed By: #### 82511-7, 3039-3, CMP, CBCA #### [facility] ([id number]) [address] [place] [address] 85403Uaslgauozce/100 WBC (Bld)1.7 %NormalMemorial Hospital Comment on above:Performed By: #### 24597-2, 3039-3, CMP, CBCA #### [facility] ([id number]) [address] [place] [address] 31089Pshspzohpxm distribution width (RBC) [Ratio]13.0 %Normal 11.5-15.0Memorial HospitalComment on above:Performed By: #### 00947-9, 3039-3, CMP, CBCA #### [facility] ([id number]) [address] [place] [address] 89316Jfzlytroil (Bld) [Volume fraction]42.1 %Velvqx92-75CyxVwxqmzSt. Joseph Health [facility] HospitalComment on above:Performed By: #### 18738-8, 3039-3, CMP, CBCA #### [facility] ([id number]) [address] [place] [address] 36963Djmwvehimi (Bld) [Mass/Vol]14.4 g/aZXayber44.0-17.0ProSt. Joseph Health [facility] Station HospitalComment on above:Performed By: #### 72066-5, 3, CMP, CBCA #### [facility] ([id number]) [address] [place] [address] 33544Olelbodtqid (Bld) [#/Vol]0.7 10*3/uLLow1.0-3.5ProMedica St. Mary Medical CenterComment on above:Performed By: #### 87521-5, 3, CMP, CBCA #### [facility] ([id number]) [address] [place] [address] 84735Smozfkactrb/100 WBC (Bld)9.6 %NormalProSt. [facility] Comment on above:Performed By: #### 63545-2, 3, CMP, CBCA #### [facility] ([id number]) [address] [place] [address] 41711ADT (RBC) [Entitic mass]30.7 ivKarhbs94-32FfdZjkblxSt. [facility] Health [facility] HospitalComment on above:Performed By: #### 71369-9, 3039-3, CMP, CBCA #### [facility] ([id number]) [address] [place] [address] 23437PRHG (RBC) [Mass/Vol]34.1 g/fAUwhusf06-96UphDntpfgMemorial HospitalComment on above:Performed By: #### 14633-3, 3040-3, CMP, CBCA #### [facility] ([id number]) [address] [place] [address] 06791BBB (RBC) [Entitic vol]90 qSHptcue51-833DqdVhgbrp [facility] HospitalComment on above:Performed By: #### 94838-5, 3040-3, CMP, CBCA #### [facility] ([id number]) [address] [place] [address] 79281Xglxquktz (Bld) [#/Vol]0.5 10*3/uLNormal0-0.9Memorial HospitalComment on above:Performed By: #### 73856-0, 0-3, CMP, CBCA #### [facility] ([id number]) [address] [place] [address] 93677Gfhbfzdbe/100 WBC (Bld)7.0 %[facility] Comment on above:Performed By: #### 85403-5, 3040-3, CMP, CBCA #### [facility] ([id number]) [address] [place] [address] 91827Ldcwbiugaye/100 WBC (Bld)81.1 %[facility] Comment on above:Performed By: #### 52001-9, 3040-3, CMP, CBCA #### [facility] ([id number]) [address] [place] [address] 35691Aaqriuyq mean volume (Bld) [Entitic vol]7.4 fLNormal7-12 ProMTemple Community HospitalComment on above:Performed By: #### 60606-7, 3040-3, CMP, CBCA #### [facility] ([id number]) [address] [place] [address] 28590Gznzvjjqn (Bld) [#/Vol]169 10*3/xQKhrtuu618-649ElcQdcgau [facility] HospitalComment on above:Performed By: #### 41675-7, 3040-3, CMP, CBCA #### [facility] ([id number]) [address] [place] [address] 31101RVI COUNT4.68 X10E12/LNormal4.10-5.70ProSt. [facility] Comment on above:Performed By: #### 48869-5, 0-3, CMP, CBCA #### [facility] ([id number]) [address] [place] [address] 19484IZO (Bld) [#/Vol]7.0 10*3/uLNormal4.0-11.0ProSt. Joseph Health [facility] HospitalComment on above:Performed By: #### 98711-0, 0-3, CMP, CBCA #### [facility] ([id number]) [address] [place] [address] 74135TOVDJEQPIAVLU METABOLIC PANELon 32-95-7837Nnyhvvv [Mass/Vol]3.9 g/dLNormal3.2-5.3PThe [facility]vue HospitalComment on above:Performed By: #### 38804-5, 0-3, CMP, CBCA #### [facility] ([id number]) [address] [place] [address] 91245MLV [Catalytic activity/Vol]51 U/XZpxqgh40-999BliGsatrtSt. Joseph Health [facility] HospitalComment on above:Performed By: #### 60406-8, 3040-3, CMP, CBCA #### [facility] ([id number]) [address] [place] [address] 28149RAP [Catalytic activity/Vol]17 U/LNormal0-40ProSt. Joseph Health [facility] HospitalComment on above:Performed By: #### 60598-3, 3039-3, CMP, CBCA #### [facility] ([id number]) [address] [place] [address], [place] 25208Bkslb gap [Moles/Vol]8 mmol/LNormal5-15ProSt. [facility] HospitalComment on above:Performed By: #### 05836-6, 3039-3, CMP, CBCA #### [facility] ([id number]) [address] [place] [address], [place] 38315OJX [Catalytic activity/Vol]19 U/LNormal0-41ProSt. [facility] Health [facility] HospitalComment on above:Performed By: #### 06479-2, 3039-3, CMP, CBCA #### [facility] ([id number]) [address] [place] [address], [place] 679[address]Vwbkgimkt [Mass/Vol]1.2 mg/dLNormal0.3-1.2PThe [facility]vue HospitalComment on above:Performed By: #### 89198-5, 3039-3, CMP, CBCA #### [facility] ([id number]) [address] [place] [address], [place] 25781Siakipc [Mass/Vol]9.2 mg/dLNormal8.5-10.5PThe [facility]vue HospitalComment on above:Performed By: #### 07365-2, 3039-3, CMP, CBCA #### [facility] ([id number]) [address] [place] [address], [place] 89291Xxtbbycg [Moles/Vol]107 mmol/APoczwu13-086YmcBiyxfiSt. Joseph Health [facility] HospitalComment on above:Performed By: #### 47942-5, 3039-3, CMP, CBCA #### [facility] ([id number]) [address] [place] [address], [place] 75696DS3 [Moles/Vol]24 mmol/OHeogbo06-61AkdTyugpiThe [facility] Hospital Comment on above:Performed By: #### 65946-9, 3, JUSTIN, CBCAbram #### [facility] ([id number]) [address] [place] [address] 95279Oykvxujson [Mass/Vol]1.01 mg/dLNormal0.70-1.20ProSt. Joseph [facility] HospitalComment on above:Result Comment: METHOD TRACEABLE TO IDMS STANDARD Performed By: #### 13839-6, 3040-01, ELKE ANDERSON #### [facility] ([id number]) [address] [place] [address] 00684XUO/1.73 sq M.predicted among non-blacks MDRD (S/P/Bld) [Vol rate/Area]83 mL/min/{1.73_m2}Normal>59ProSt. Joseph Health [facility] HospitalComment on above:Result Comment: Reported eGFR is based on the CKD-EPI 2020 equation that does not use a race coefficient.Performed By: #### 54429-8, 3, JUSTIN, ELKE #### [facility] ([id number]) [address] [place] [address] 71848Qughyxl [Mass/Vol]158 mg/hBJrwe35-54JpuQxyxlyMemorial Hospital Comment on above:Performed By: #### 78643-6, 3040-01, ELKE ANDERSON #### [facility] ([id number]) [address] [place] [address] 75409Bmwtafaak [Moles/Vol]3.8 mmol/LNormal3.5-5.0ProSt. [facility] HospitalComment on above:Performed By: #### 90664-8, 3039-3, JUSTIN, CBCAbram #### [facility] ([id number]) [address] [place] [address] 33315Eaxgxfv [Mass/Vol]6.8 g/dLNormal6.0-8.0ProSt. Joseph Health [facility] HospitalComment on above:Performed By: #### 58072-2, 304-3, CMP, CBCA #### [facility] ([id number]) [address] [place] [address] 23554Omtari [Moles/Vol]139 mmol/HNvmkyv007-236KjrIkklqa [facility] HospitalComment on above:Performed By: #### 01538-4, 3039-3, CMP, CBCA #### [facility] ([id number]) [address] [place] [address] 28944Okkn nitrogen [Mass/Vol]19 mg/dLNormal5-27ProSt. Joseph [facility] HospitalComment on above:Performed By: #### 91175-2, 3040-01, CMP, CBCA #### [facility] ([id number]) [address] [place] [address] 43773Cnohvz D-dimer DDU (PPP) [Mass/Vol]on 02-24-2025D DIMER<150 Normal<255Memorial HospitalComment on above:Result Comment: Results <255 ng/mL DDU: The presence of a VTE can safely be excluded with a negative D-Dimer result and Wells score. A negative result doesn't exclude the possibility of DIC. The test be repeated along with other diagnostic tests if the patient's symptoms persist or worsen. [email or web address] By: #### 22986-2, 3, CMP, CBCA #### [facility] ([id number]) [address] [place] [address] [id number] 17-50-2524Agdpcoadl [Mass/Vol]1.7 mg/dLLow1.8-2.6 ProMTemple Community HospitalComment on above:Performed By: #### 06083-2, 3039-3, CMP, CBCA #### [facility] ([id number]) [address] [place] [address] [id number] AND INRon 66-12-2666TRP Coag (PPP) [Relative time]1.1 {INR}Normal0.9-1.2PThe Bellevue HospitalComment on above:Performed By: #### 32276-8, 3040-3, CMP, CBCA #### [facility] ([id number]) [address] [place] [address] [id number] Coag (PPP) [Time]12.5 sNormal9.8-13.2PThe Bellevue HospitalComment on above:Result Comment: NEW REFERENCE RANGEPerformed By: #### 90335-2, 3040-3, CMP, CBCA #### [facility] ([id number]) [address] [place] [address] [id number] I.cardiac High sensitivity method [Mass/Vol]on HOUR TROP I, HIGH SENSITIVITY3 ng/LNormal<21ProSt. Joseph Health [facility] Station HospitalComment on above:Performed By: #### 70583-8, 3040-3, CMP, CBCA #### [facility] ([id number]) [address] [place] [address] [id number] I, HIGH SENSITIVITY3 ng/LNormal<21ProSt. Joseph Health [facility] Station HospitalComment on above:Performed By: #### 92313-3, 3040-3, CMP, CBCA #### [facility] ([id number]) [address] [place] [address] [id number] CHEST 1 VWon 86-49-5856AZ CHEST 1 VWXR CHEST 1 VW Clinical history: Chest pain. Comparisons: 06/15/2019 through 04/14/2023. Findings: AP portable upright chest radiograph obtained 6:06 PM. Heart size and pulmonary vasculature appear within normal limits. Lungs appear clear. No pleural effusion. No pneumothorax. IMPRESSION: No evidence for acute cardiopulmonary disease. Finalized by Rnoy Andrew MD on 02/24/2025 6:12 PMNormalProSt. Joseph Health College Station HospitalLon 02-22-2025 Specimen: [id number] Received: 02/23/25 Status: YEHUDA Louise Num: [id number] Spec Type: Surgical Subm Dr: Leila Lambert MD Tissues: A Prostate - Tur (PROSTATE LESION) Procedures: Raymond DAVILA/Radha L4 Age/ Patient Sex Location Account Attending Physician Meredith Villatoro/Leonora LABELL [id number] Leila Lambert MD SPEC NUM: [id number] RECD: 02/23/25 STATUS: YEHUDA LOUISE NUM: [id number] MICHEL: 03/27/25-[address]: Leila Lambert MD ENTERED: 02/23/25-[address] [facility] [address]: Guerline Topete SPEC TYPE: Surgical DEPT: RACQUEL KEITH ENTERED BY: [id number] RECV BY: [id number] ORDERED: LOLA, Gross/Micro L4 ORDERED: HE, Gross/Micro L4 Pathological Diagnosis Prostate lesions, TURP: -High-grade prostatic adenocarcinoma in the majority portion of the section, showing cribriform, ductal (papillary), and sheets (small submucosal nodular sheet) pattern, consistent with [place] score 4+5=9 (grade group 5) -Incidental lymphovascular [...] submitted in a single cassette. (1, ns, BS25- A) HAKEEM Specimen: [id number] Received: 02/23/25 Status: YEHUDA Louise Num: [id number] Spec Type: Surgical Subm Dr: Leila Lambert MD Tissues: A Prostate - Tur (PROSTATE LESION) Procedures: LOLA Gross/Micro L4 Patient: Meredith Villatoro [id number] (Continued) Specimen: [id number] Received: 02/23/25 (Continued) Signed (signature on file) Aimee Maloney MD 02/27/25 1211 Specimen: [id number] Received: 02/23/25 Status: YEHUDA Louise Num: [id number] Spec Type: Surgical Subm Dr: Leila Lambert MD Tissues: A Prostate - Tur (PROSTATE LESION) Procedures: Raymond DAVILA/Radha Grant Patient: Meredith Villatoro [id number] (Continued) Specimen: [id number] Received: 02/23/25 (Continued) Microscopic Description Microscopic examination is performed CPT Codes 94160 Specimen: [id number] Received: 02/23/25 Status: YEHUDA Louise Num: [id number] Spec Type: Surgical Subm Dr: Leila Lambert MD Tissues: A Prostate - Tur (PROSTATE LESION) Procedures: Raymond DAVILA/Radha L4 Patient: Meredith Villatoro [id number] (Continued) Signed (signature on file) Yuridia Maloney MD 02/27/[address] [place] [address] Physician GroupUrology Office/Clinic Noteon 02-20-2025 Urology Office/Clinic NoteUrology Office/Clinic Note Chief Complaint burning w/ urnation [...] of prostate tumors under anesthesia in 2 days.Told him not to take any Pyridium that morning. Ordered: E&M of Est. Patient Low 20-29 Min 12797 2. Feeling of incomplete bladder emptying (R39.14: Feeling of incomplete bladder emptying) PVR low today. Ordered: 59786 Measure Post Void residual urine and/or bladder capacity by US- non-imaging E&M of Est. Patient Low 20-29 Min 77417 Urnls Dip Stick Auto w/o Microscopy POC 90566 Orders: phenazopyridine, 200 mg = 1 tab(s), Oral, TID, PRN burning with urination, X 2 day(s), # 6 tab(s), Refills(s) 0, Pharmacy: [facility] [id number], 160, cm, 02/20/25 12:00:00 EDT, Height/Length Dosing, 104, kg, 02/20/25 12:00:00 EDT, Weight Dosing Follow-up With When Contact Information [facility] Additional Instructions: For procedure as scheduled. Patient [...] Protein Urine Dipstick: Negative (02/20/25 12:14:00) Specific [place] Urine Dipstick: >=1.030 (02/20/25 12:14:00) Urine Appearance Urine Dipstick: Clear (02/20/25 12:14:00) Urobilinogen Urine Dipstick: Normal 0.2-1 EU/dl (02/20/25 12:14:00) pH Urine Dipstick: 5.5 (02/20/25 12:14:00)[facility] Comment on above:Result Comment: Electronically Signed By: JERI MENDIETA PA-C.neema\Date and Time Signed: 02/20/2513:24 EDTMain OR Intraoperative Recordon [id number] OR Intraoperative RecordMain OR Intraoperative Record IntraOp Document Type FTURO Summary Primary Physician: Leila LAMBERT MD Finalized Date/Time: 02/06/25 13:46:29 Pt. Name: MEREDITH VILLATORO/Sex: 1960 Male Med Rec #: [id number] Physician: Leila LAMBERT MD Financial #: [id number] Pt. Type: O Room/Bed: / Admit/Disch: 02/06/25 12:36:08 - Institution: Case Times FTURO Entry 1 Patient Times In Room 02/06/25 13:30:00 Out Room 02/06/25 13:46:00 Procedure Times Start 02/06/25 13:38:00 Stop 02/06/25 13:41:00 Anesthesia Times Last Modified By: Thania OSPINA, Sia Minor 02/06/25 13:41:19 Case Attendance FTURO Entry 1 Entry 2 Entry 3 Case Attendee PETRA OVIEDO, Leila Monteiro RN, Fernando Quilgey Role Performed Surgeon - Primary [employer] Project Manager - Primary Scrub - Primary Time In [...] Class 2 - Clean-Contaminated Last Modified By: Sia Monteiro RN 02/06/25 13:41:36 General Case Data FTURO Pre-Care [...] MD, Verified (If Participants Thania OSPINA, Sia Applicable) Morenita Carrillo Kendall R Time Out [...] Signatures Signed By: Sia Monteiro RN 02/06/25 13:46NoJoint [facility] HospitalMain OR Preoperative Recordon [id number] OR Preoperative RecordMain OR Preoperative Record Holding Area Document Type FTURO Summary Primary Physician: Leila LAMBERT MD Finalized Date/Time: 02/06/25 13:25:40 Pt. Name: MEREDITH VILLATORO/Sex: 1960 Male Med Rec #: [id number] Physician: Leila LAMBERT MD Financial #: [id number] Pt. Type: O Room/Bed: / Admit/Disch: 02/06/25 [...] or her perioperative plan of care The patient'sright to privacy is maintained Surgery Checklist FTURO Entry 1 Patient Birthday, ID Band Procedure History and Physical, Identification: Check, Patient Verification: Surgical Consent, With Participation Patient NPO after Midnight: n/a Personal Items: Glasses Limitations: up ad ping Complaints of Pain: No Skin Integrity Intact, [place], Warm, & Dry Vitals - EU Blood Pressure 137/68 Pulse 83 bpm Respirations 18 br/min SPO2 97 % Additional None Specimens Collected Last Modified By: Kerri Pires LPN 02/06/25 13:25:39 Finalized By: Kerri Pires LPN Document Signatures Signed By: Kerri Pires LPN 02/06/25 13:25[facility] HospitalOperative Reporton [id number] ReportOperative Report Patient: MEREDITH VILLATORO Age: 64 years Sex: Male : 1960 Associated Diagnoses: None Author: Leila LAMBERT MD Procedure Operative Information Details: Date/ Time: 02/06/2025 13:46:00. Pre-Op Dx: Hx of Prostate CA - Z85.46, Incomplete Bladder Emptying - R39.14. Post-Op Dx: Same. Anesthesia Type: Local. Procedure: Local Cystoscopy. Complications: None. Risks/Benefits/Informed Consent: Surgical risks, benefits, details of the [...] transurethral resection of prostate tumors under anesthesia.. [facility] HospitalComment on above:Result Comment: Electronically Signed By: PETRA OVIEDO, Leila Mitchell\Date and Time Signed: 02/06/25 13:48 EDT [facility] [id number] Visit (GRAHAMA) MEREDITH VILLATORO ([id number]) 1960 M Date Time Provider Department 01/23/25 [...] ASSESSMENT/PLAN: Prostate adenocarcinoma, initial PSA 2.0, biopsy [place] score 4 + 4 = 8 (grade [...] Signed AUA= 20 Referring Provider: Jhony LUX [[id number]] Allergies As of Date: 01/23/2025 (No Known Allergies) Date Reviewed: 01/23/2025 Reviewed by: Sharon Ocampo RN - Fully Assessed Reason for Visit: Prostate Cancer [590] Primary Visit Diagnosis:Prostate cancer (HCC) [C61] Order(s):PSA (OUTSIDE) [9303531] Order #: [id number] PROSTATE-SPECIFIC ANTIGEN DIAGNOSTIC [SQPSA] Order #: [id number] FUTURE Prescriptions as of 01/30/2025 - mirabegron [...] Service: OFFICE/OUTPATIENT ESTABLISHED LOW MDM 20 MIN [22968] Additional E/M codes: VIS (more content not included)...NormalOhio Valley HospitalAmbulatory Visit Summaryon 61-69-1068Benhjncwkf Visit SummaryAmbulatory Visit Summary MEREDITH VILLATORO :1960 Visit Date:01/15/2025 [...] AM EDT With: Where: [facility] [address] [address]- Wednesday 10:15 AM EDT With: Leila LAMBERT MD Where: [facility] [address] [place] [address]- You Need to Schedule the Following Appointments Follow Up with Leila LAMBERT MD, AP When: Where: [facility] [address] [place] [address]- [phone] Medications What How Much When Instructions New ciprofloxacin (Cipro 500 mg Tab) 1 Tablets By Mouth Every day take one tab day before procedureand one tab after procedure Pickup at [facility] [id number] Unchanged mirabegron (Myrbetriq 50 mg oral tablet, extended release) 2 Tablets By Mouth Every day Duration: 90 Days Unchanged tamsulosin (tamsulosin 0.4 mg Cap) 1 Capsules By Mouth 2 times a day Unchanged atorvastatin (atorvastatin 10 mg Tab) Contact prescribing physician if questions or concerns Unchanged cyclobenzaprine (cyclobenzaprine 10 mg Tab) Contact prescribing physician if questions orconcerns Unchanged lisinopril (lisinopril 10 mg Tab) Contact prescribing physician if questions or concerns Unchanged metoprolol (Metoprolol tartrate 50 mg Tab) 180 EA, take 1 tablet by mouth twice a day Contact prescribing physician if questions or concerns Unchanged naproxen (naproxen 500 mg Tab) 12 EA, take 1 tablet by mouth every 12 hours NEEDED FORPAIN TAKE WITH FOOD OR MILK Contact prescribing physician if questions or concerns Pharmacy Information [facility] [id number]: [address] [place], [place] [phone] Allergies No Known Medication Allergies Problems Ongoing [...] the bladder, intestine, and, in women,the uterus. ??? Enlarged prostate in men. The [...] urethra from working properly. (more content not included)...[facility] HospitalUrology Office/Clinic Noteon 94-29-6438Cfrpuuw Office/Clinic NoteUrology Office/Clinic Note Chief Complaint 3 month with [...] - 0.5 MRI prostate w/wo con 01/08/22 [facility] - PI-RADS 4 and 5. MRI fusion bx 02/05/22 - [place] 8 (4+4), 18 cores, grade group 4. [...] Leila Simpson, URL [facility] [address] [place] [address] [phone] Additional Instructions: sched cysto, f/u in 6 [...] cancer Prostate nodule Prostatitis (more content not included)...[facility] HospitalComment on above: Result Comment: Electronically Signed By: Leila LAMBERT MD\.br\Date and Time Signed: 01/15/25 12:27 EST\.br\Electronically Co-Signed By: Molly Murray\.br\Date and Time Co-Signed: 01/15/25 12:26 ESTCHEMISTRYOrdered By: SYSTEM SYSTEM on 93-13-5908Xamyuncl specific Ag [Mass/Vol]0.5 ng/mLNormal0.1 - 3.5 ng/mLRemisol ChemComment on above:Interpretive Data: The concentration of PSA determined by different manufacturers can vary due to differences in assay methods and reagent specificity. Values obtained from different assay methods cannot be used interchangeably. The methodology used for this result was chemiluminescence using [employer]'s Access Hybritech PSA reagent.PSA (OUTSIDE)on 00-77-5209Gfypsbuyi ClinicPSA Totalon 07-44-6854Dtrpmsca specific Ag [Mass/Vol]0.5 ng/mLNormal0.1-3.5FJoint Township District Memorial HospitalComment on above: Result Comment: The concentration of PSA determined by different manufacturers can vary due to differences in assay methods and reagent specificity. Values obtained from different assay methods cannot be used interchangeably. The methodology used for this result was chemiluminescence using [employer]'s Access Hybritech PSA reagent.Performed By: #### [id number] ####[facility] Dwapdazyqv[address] K[address]Njohnson memorial hospital, [place] [address]UIA AND AUTO DIFFon 80-15-8507GSZLGAPC BASOPHIL0.0 X10E9/LNormal0.0-0.2PThe [facility] Comment on above:Performed By: #### 59475-3, 3040-3, CMP, CBCA #### [facility] ([id number]) [address] [place] [address] 50366KMLMWZSJ NEUTROPHIL3.1 X10E9/LNormal1.5-6.6Memorial HospitalComment on above:Performed By: #### 42896-1, 3040-3, CMP, CBCA #### [facility] ([id number]) [address] [place] [address] 65772Ipfurvhyw/100 WBC (Bld)0.8 %NormalMemorial Hospital Comment on above:Performed By: #### 00452-5, 3039-3, CMP, CBCA #### [facility] ([id number]) [address] [place] [address] 14847Ttyevsuafcf (Bld) [#/Vol]0.2 10*3/uLNormal0.0-0.4ProSt. Joseph Health College Station HospitalComment on above:Performed By: #### 75839-2, 3039-3, CMP, CBCA #### [facility] ([id number]) [address] [place] [address] 19617Vuywppnbkut/100 WBC (Bld)4.5 %NormalProChristus Santa Rosa Hospital [facility] Medical [facility] on above:Performed By: #### 09476-2, 3040-01, CMP, CBCA #### [facility] ([id number]) [address] [place] [address] 83501Nkvobxslhnl distribution width (RBC) [Ratio]13.2 %Normal 11.5-15.0ProSt. Joseph Health College Station HospitalComment on above:Performed By: #### 21017-1, 3040-01, CMP, CBCA #### [facility] ([id number]) [address] [place] [address] 49234Hjyqvvlitv (Bld) [Volume fraction]39.2 %Iaqrgk31-58ExyHyfqhsSt. Joseph Health College Station HospitalComment on above:Performed By: #### 82630-6, 3, CMP, CBCA #### [facility] ([id number]) [address] [place] [address] 57569Ylldamcrze (Bld) [Mass/Vol]13.6 g/gLSnkova37.0-17.0Memorial HospitalComment on above:Performed By: #### 67537-3, 3039-3, CMP, CBCA #### [facility] ([id number]) [address] [place] [address] 74287Ynrnookbdfw (Bld) [#/Vol]0.8 10*3/uLLow1.0-3.5PThe Bellevue HospitalComment on above:Performed By: #### 35121-3, 3039-3, CMP, CBCA #### [facility] ([id number]) [address] [place] [address] 06522Dmufhupctct/100 WBC (Bld)17.1 %NormalProSt. Joseph Health [facility] Hospital Comment on above:Performed By: #### 43070-1, 3039-3, CMP, CBCA #### [facility] ([id number]) [address] [place] [address] 15860ASP (RBC) [Entitic mass]31.1 gjSoxbsa29-23LoqTxqfztSt. Joseph Health [facility] Station HospitalComment on above:Performed By: #### 97554-0, 3039-3, CMP, CBCA #### [facility] ([id number]) [address] [place] [address] 23328SGQF (RBC) [Mass/Vol]34.6 g/oOXfxwrn58-89IuoZxnxlaSt. Joseph Health College Station HospitalComment on above:Performed By: #### 48180-7, 3, CMP, CBCA #### [facility] ([id number]) [address] [place] [address] 53950UQT (RBC) [Entitic vol]90 iIAzrgfd56-269JydYdnlws [facility]remont HospitalComment on above:Performed By: #### 33414-2, 3039-3, CMP, CBCA #### [facility] ([id number]) [address] [place] [address] 65028Twlrqusfl (Bld) [#/Vol]0.3 10*3/uLNormal0-0.9Memorial HospitalComment on above:Performed By: #### 56150-4, 3039-3, CMP, CBCA #### [facility] ([id number]) [address] [place] [address] 85671Oyejpcfit/100 WBC (Bld)7.8 %[facility] Comment on above:Performed By: #### 34452-8, 3040-3, CMP, CBCA #### [facility] ([id number]) [address] [place] [address] 88174Jtnybllttmm/100 WBC (Bld)69.8 %[facility] Comment on above:Performed By: #### 46223-3, 3040-3, CMP, CBCA #### [facility] ([id number]) [address] [place] [address] 51912Bjlkedma mean volume (Bld) [Entitic vol]7.6 fLNormal7-12 Memorial HospitalComment on above:Performed By: #### 36149-2, 3040-3, CMP, CBCA #### [facility] ([id number]) [address] [place] [address] 81434Jupodimbg (Bld) [#/Vol]176 10*3/oKPcpkhn835-070FfeGpyyitMemorial HospitalComment on above:Performed By: #### 21282-9, 3040-3, CMP, CBCA #### [facility] ([id number]) [address] [place] [address] 34796XFP COUNT4.36 X10E12/LNormal4.10-5.70[facility] Comment on above:Performed By: #### 74817-9, 3040-3, CMP, CBCA #### [facility] ([id number]) [address] [place] [address] 44773ZGT (Bld) [#/Vol]4.4 10*3/uLNormal4.0-11.0Memorial HospitalComment on above:Performed By: #### 63352-7, 3040-3, CMP, CBCA #### [facility] ([id number]) [address] [place] [address] 30323VORWVOTKCLGKS METABOLIC PANELon 82-65-5381Bdovpyz [Mass/Vol]3.5 g/dLNormal3.2-5.3PThe [facility]vue HospitalComment on above:Performed By: #### 17405-8, 3039-3, CMP, CBCA #### [facility] ([id number]) [address] [place] [address], [place] [address]FYX [Catalytic activity/Vol]44 U/DRwnefl55-050QicEjfawoSt. Joseph Health College Station HospitalComment on above:Performed By: #### 92136-1, 3039-3, CMP, CBCA #### [facility] ([id number]) [address] [place] [address] 85994QWN [Catalytic activity/Vol]18 U/LNormal0-40ProSt. Joseph Health College Station HospitalComment on above:Performed By: #### 85348-7, 3039-3, CMP, CBCA #### [facility] ([id number]) [address] [place] [address], [place] [address]Uyomh gap [Moles/Vol]8 mmol/LNormal5-15ProSt. Joseph Health College Station HospitalComment on above:Performed By: #### 06153-9, 3039-3, CMP, CBCA #### [facility] ([id number]) [address] [place] [address] 06850JVP [Catalytic activity/Vol]18 U/LNormal0-41ProSt. Joseph Health College Station HospitalComment on above:Performed By: #### 65320-2, 3039-3, CMP, CBCA #### [facility] ([id number]) [address] [place] [address] 47610Nhonunjkr [Mass/Vol]0.8 mg/dLNormal0.3-1.2PThe [facility]vue HospitalComment on above:Performed By: #### 15286-4, 304-3, CMP, CBCA #### [facility] ([id number]) [address] [place] [address], [place] [address]Lbgizmh [Mass/Vol]8.7 mg/dLNormal8.5-10.5PThe [facility]vue HospitalComment on above:Performed By: #### 18303-4, 3039-3, CMP, CBCA #### [facility] ([id number]) [address] [place] [address], [place] [address]Zzqdprjb [Moles/Vol]107 mmol/QUtlhvg36-271WkuVvbcdxMemorial HospitalComment on above:Performed By: #### 66600-3, 3039-3, CMP, CBCA #### [facility] ([id number]) [address] [place] [address] 55463VV1 [Moles/Vol]22 mmol/FKahbda09-65TfzEogeeuThe [facility] Hospital Comment on above:Performed By: #### 48370-6, 3039-3, CMP, CBCA #### [facility] ([id number]) [address] [place] [address], [place] [address]Dmevvygnne [Mass/Vol]1.08 mg/dLNormal0.70-1.20ProSt. Joseph Health College Station HospitalComment on above:Result Comment: METHOD TRACEABLE TO IDMS STANDARD Performed By: #### 66811-1, 3039-3, CMP, CBCA #### [facility] ([id number]) [address] [place] [address] 98702WFT/1.73 sq M.predicted among non-blacks MDRD (S/P/Bld) [Vol rate/Area]76 mL/min/{1.73_m2}Normal>59ProSt. Joseph Health College Station HospitalComment on above:Result Comment: Reported eGFR is based on the CKD-EPI 2020 equation that does not use a race coefficient.Performed By: #### 88433-8, 3040-3, CMP, CBCA #### [facility] ([id number]) [address] [place] [address], [place] [address]Tfimqbo [Mass/Vol]118 mg/sJEotf36-08LvhPhgtqxMemorial Hospital Comment on above:Performed By: #### 20137-8, 3, CMP, CBCA #### [facility] ([id number]) [address] [place] [address], [place] [address]Smzvyqdss [Moles/Vol]3.7 mmol/LNormal3.5-5.0ProSt. Joseph Health College Station HospitalComment on above:Performed By: #### 95270-9, 3040-01, CMP, CBCA #### [facility] ([id number]) [address] [place] [address], [place] [address]Yautfqt [Mass/Vol]6.3 g/dLNormal6.0-8.0ProSt. Joseph Health College Station HospitalComment on above:Performed By: #### 01672-5, 3040-01, CMP, CBCA #### [facility] ([id number]) [address] [place] [address], [place] [address]Msiacz [Moles/Vol]137 mmol/FMcunpj290-123OvyVnjjev [facility] HospitalComment on above:Performed By: #### 61771-4, 3040-01, CMP, CBCA #### [facility] ([id number]) [address] [place] [address] 90285Gzjd nitrogen [Mass/Vol]15 mg/dLNormal5-27ProSt. Joseph Health [facility] Station HospitalComment on above:Performed By: #### 38642-6, 3, CMP, CBCA #### [facility] ([id number]) [address] [place] [address] 99534WJFTPEGQYki 43-61-6885Eybygvurv [Mass/Vol]2.2 mg/dLNormal 1.8-2.6ProSt. Joseph Health College Station HospitalComment on above:Performed By: #### 53302-4, 3040-3, CMP, CBCA #### [facility] ([id number]) [address] [place] [address] 76368EOZ AND AUTO DIFFon 45-97-7326XUAYVNDK BASOPHIL0.0 X10E9/L Normal0.0-0.2ProMedica St. Mary Medical CenterComment on above:Performed By: #### 17234-3, 3040-3, CMP, CBCA #### [facility] ([id number]) [address] [place] [address] 45966UHFFBPAB NEUTROPHIL4.1 X10E9/LNormal1.5-6.6Memorial HospitalComment on above:Performed By: #### 87609-2, 3040-3, CMP, CBCA #### [facility] ([id number]) [address] [place] [address] 68700Uhtkoavhl/100 WBC (Bld)0.8 %[facility] Comment on above:Performed By: #### 25465-9, 3040-3, CMP, CBCA #### [facility] ([id number]) [address] [place] [address] 49783Fppenouaihf (Bld) [#/Vol]0.2 10*3/uLNormal0.0-0.4Memorial HospitalComment on above:Performed By: #### 46848-1, 3040-3, CMP, CBCA #### [facility] ([id number]) [address] [place] [address] 83633Fvvnqainkoe/100 WBC (Bld)3.6 %[facility] Comment on above:Performed By: #### 75276-0, 3040-3, CMP, CBCA #### [facility] ([id number]) [address] [place] [address] 90248Mmpjsdyfjmh distribution width (RBC) [Ratio]13.5 %Normal 11.5-15.0Memorial HospitalComment on above:Performed By: #### 09877-8, 3, CMP, CBCA #### [facility] ([id number]) [address] [place] [address] 04499Mvszaudwqg (Bld) [Volume fraction]39.2 %Jmosoz56-81GbmEstjmeSt. Joseph Health College Station HospitalComment on above:Performed By: #### 92054-5, 3040-01, CMP, CBCA #### [facility] ([id number]) [address] [place] [address] 36012Fwfcyxmeds (Bld) [Mass/Vol]13.7 g/rGRscnxg70.0-17.0ProSt. Joseph Health College Station HospitalComment on above:Performed By: #### 96785-2, 3040-01, CMP, CBCA #### [facility] ([id number]) [address] [place] [address] 04305Dvlmsehrcwg (Bld) [#/Vol]0.6 10*3/uLLow1.0-3.5PThe Bellevue HospitalComment on above:Performed By: #### 16254-7, 3040-01, CMP, CBCA #### [facility] ([id number]) [address] [place] [address] 85229Hwyfchtcanh/100 WBC (Bld)12.0 %NormalProSt. Joseph Health [facility] Comment on above:Performed By: #### 28675-7, 3040-01, CMP, CBCA #### [facility] ([id number]) [address] [place] [address] 91094ZIH (RBC) [Entitic mass]31.6 kdYxddhd76-36VrdLetbcsSt. Joseph Health [facility] Station HospitalComment on above:Performed By: #### 21314-2, 3040-3, CMP, CBCA #### [facility] ([id number]) [address] [place] [address] 60409IGRX (RBC) [Mass/Vol]35.0 g/uHCmylvz28-23AsrSvfpdkSt. Joseph Health [facility] HospitalComment on above:Performed By: #### 73895-5, 3040-3, CMP, CBCA #### [facility] ([id number]) [address] [place] [address] 14995KAM (RBC) [Entitic vol]90 dORrrtek52-388LbhExehtnMemorial HospitalComment on above:Performed By: #### 31441-0, 3040-3, CMP, CBCA #### [facility] ([id number]) [address] [place] [address] 54959Iyxcvqccb (Bld) [#/Vol]0.4 10*3/uLNormal0-0.9Memorial HospitalComment on above:Performed By: #### 67033-2, 3040-3, CMP, CBCA #### [facility] ([id number]) [address] [place] [address] 29652Kfeqvitmr/100 WBC (Bld)7.6 %[facility] Comment on above:Performed By: #### 78706-2, 3040-3, CMP, CBCA #### [facility] ([id number]) [address] [place] [address] 85283Dswqcvfwrjm/100 WBC (Bld)76.0 %[facility] Comment on above:Performed By: #### 72184-9, 3040-3, CMP, CBCA #### [facility] ([id number]) [address] [place] [address] 14893Obrpvhwb mean volume (Bld) [Entitic vol]7.8 fLNormal7-12 ProMTemple Community HospitalComment on above:Performed By: #### 99830-8, 3040-3, CMP, CBCA #### [facility] ([id number]) [address] [place] [address] 67064Eatpmmbjq (Bld) [#/Vol]175 10*3/gVFyhjmi336-138BsuVlyqrs [facility] HospitalComment on above:Performed By: #### 18471-9, 3039-3, CMP, CBCA #### [facility] ([id number]) [address] [place] [address] 25070RXQ COUNT4.33 X10E12/LNormal4.10-5.70[facility] Comment on above:Performed By: #### 46304-0, 0-3, CMP, CBCA #### [facility] ([id number]) [address] [place] [address] 94425YBS (Bld) [#/Vol]5.3 10*3/uLNormal4.0-11.0ProSt. [facility] HospitalComment on above:Performed By: #### 25487-5, 3039-3, CMP, CBCA #### [facility] ([id number]) [address] [place], [place] [address] 25975VWOLYUROKEHPT METABOLIC PANELon 28-88-1894Cvhppig [Mass/Vol]3.5 g/dLNormal3.2-5.3ProMedHazel Hawkins Memorial HospitalComment on above:Performed By: #### 55639-8, 3039-3, CMP, CBCA #### [facility] ([id number]) [address] [place] [address] 64166TUC [Catalytic activity/Vol]47 U/CIchpcd60-801JixYdapvpSt. Joseph Health College Station HospitalComment on above:Performed By: #### 81167-3, 3040-3, CMP, CBCA #### [facility] ([id number]) [address] [place] [address] 13051GUK [Catalytic activity/Vol]19 U/LNormal0-40ProSt. Joseph Health College Station HospitalComment on above:Performed By: #### 37903-4, 3040-3, CMP, CBCA #### [facility] ([id number]) [address] [place] [address] 48126Esmwd gap [Moles/Vol]7 mmol/LNormal5-15ProSt. Joseph Health [facility] Station HospitalComment on above:Performed By: #### 98058-0, 0-3, CMP, CBCA #### [facility] ([id number]) [address] [place] [address] 45056WAX [Catalytic activity/Vol]18 U/LNormal0-41ProSt. Joseph Health College Station HospitalComment on above:Performed By: #### 08421-4, 0-3, CMP, CBCA #### [facility] ([id number]) [address] [place] [address] 70843Gjaqdycuy [Mass/Vol]1.2 mg/dLNormal0.3-1.2PThe Bellevue HospitalComment on above:Performed By: #### 46215-4, 0-3, CMP, CBCA #### [facility] ([id number]) [address] [place] [address] 78704Izvruyr [Mass/Vol]8.9 mg/dLNormal8.5-10.5PThe Bellevue HospitalComment on above:Performed By: #### 43724-9, 3040-3, CMP, CBCA #### [facility] ([id number]) [address] [place] [address] 81665Ymfbuwpz [Moles/Vol]103 mmol/FWtziyk00-898GmyRnivezSt. Joseph Health College Station HospitalComment on above:Performed By: #### 04595-7, 3040-3, CMP, CBCA #### [facility] ([id number]) [address] [place] [address] 13282LW6 [Moles/Vol]25 mmol/NLcgato58-11HuiLiuhwjThe [facility]vue Hospital Comment on above:Performed By: #### 35690-2, 3039-3JUSTIN CBCA #### [facility] ([id number]) [address] [place] [address] 80320Jlfqetxbpp [Mass/Vol]1.01 mg/dLNormal0.70-1.20ProSt. Joseph Health College Station HospitalComment on above:Result Comment: METHOD TRACEABLE TO IDMS STANDARD Performed By: #### 18525-5, 3040-01, ELKE ANDERSON #### [facility] ([id number]) [address] [place] [address] 64340EQV/1.73 sq M.predicted among non-blacks MDRD (S/P/Bld) [Vol rate/Area]83 mL/min/{1.73_m2}Normal>59ProSt. Joseph Health College Station HospitalComment on above:Result Comment: Reported eGFR is based on the CKD-EPI 2020 equation that does not use a race coefficient.Performed By: #### 51367-8, 3, ELKE ANDERSON #### [facility] ([id number]) [address] [place] [address] 69629Lcztmvw [Mass/Vol]98 mg/ePDervdz48-85TmjXagpbcMemorial Hospital Comment on above:Performed By: #### 22086-4, 3, ELKE ANDERSON #### [facility] ([id number]) [address] [place] [address] 39671Axejjxgmr [Moles/Vol]3.9 mmol/LNormal3.5-5.0Memorial HospitalComment on above:Performed By: #### 20790-1, 3039-3, ELKE ANDERSON #### [facility] ([id number]) [address] [place] [address] 43204Jjhovjz [Mass/Vol]6.3 g/dLNormal6.0-8.0ProSt. Joseph Health College Station HospitalComment on above:Performed By: #### 98271-8, 3039-3, CMP, CBCA #### [facility] ([id number]) [address] [place] [address] 74416Vjrutr [Moles/Vol]135 mmol/HSjmobi312-958GeyHuphsn [facility]remont HospitalComment on above:Performed By: #### 81468-4, 3039-3, CMP, CBCA #### [facility] ([id number]) [address] [place] [address] 62354Mgiq nitrogen [Mass/Vol]12 mg/dLNormal5-27ProSt. Joseph Health [facility] Station HospitalComment on above:Performed By: #### 71994-8, 3039-3, CMP, CBCA #### [facility] ([id number]) [address] [place] [address] 52493NZRvm 22-41-2108Plzvfnvpqo (Bld) [Volume fraction]39.3 %Normal 39-49ProSt. Joseph Health [facility] Station HospitalComment on above:Performed By: #### 28319-6, 3, CMP, CBCA #### [facility] ([id number]) [address] [place] [address] 93392Awgqnschfc (Bld) [Mass/Vol]13.7 g/vWHagxlm32.0-17.0ProSt. Joseph Health [facility] Station HospitalComment on above:Performed By: #### 39901-8, 3039-3, CMP, CBCA #### [facility] ([id number]) [address] [place] [address] 48802FSTPSJBDWgp 65-64-4622Hjcaamwuf [Mass/Vol]2.1 mg/dLNormal 1.8-2.6ProSt. Joseph Health [facility] Station HospitalComment on above:Performed By: #### 08309-4, 3039-3, CMP, CBCA #### [facility] ([id number]) [address] [place] [address] 92857DSM AND AUTO DIFFon 32-37-7396LZNZICOG BASOPHIL0.0 X10E9/L Normal0.0-0.2PThe Bellevue HospitalComment on above:Performed By: #### 09956-8, 304-3, CMP, CBCA #### [facility] ([id number]) [address] [place] [address] 60866XFJWAGXF NEUTROPHIL3.7 X10E9/LNormal1.5-6.6Memorial HospitalComment on above:Performed By: #### 73513-7, 3039-3, CMP, CBCA #### [facility] ([id number]) [address] [place] [address] 16270Epbizetfv/100 WBC (Bld)0.9 %NormalMemorial Hospital Comment on above:Performed By: #### 83308-0, 3039-3, CMP, CBCA #### [facility] ([id number]) [address] [place] [address] 83177Mfpxokufene (Bld) [#/Vol]0.1 10*3/uLNormal0.0-0.4Memorial HospitalComment on above:Performed By: #### 89088-7, 3039-3, CMP, CBCA #### [facility] ([id number]) [address] [place] [address] 92616Psxtfftkfgi/100 WBC (Bld)2.9 %NormalMemorial Hospital Comment on above:Performed By: #### 47827-8, 3039-3, CMP, CBCA #### [facility] ([id number]) [address] [place] [address] 51466Xwjnlgrgesl distribution width (RBC) [Ratio]13.5 %Normal 11.5-15.0ProSt. Joseph Health College Station HospitalComment on above:Performed By: #### 79068-0, 3039-3, CMP, CBCA #### [facility] ([id number]) [address] [place] [address] 43859Fijupwhdvj (Bld) [Volume fraction]37.7 %Bzb03-66BvzGjxtskSt. Joseph Health [facility] Station HospitalComment on above:Performed By: #### 22259-2, 3039-3, CMP, CBCA #### [facility] ([id number]) [address] [place] [address] 14196Irzquledyz (Bld) [Mass/Vol]13.1 g/pACyjkws84.0-17.0ProSt. Joseph Health College Station HospitalComment on above:Performed By: #### 68783-0, 3040-01, CMP, CBCA #### [facility] ([id number]) [address] [place] [address] 25570Tnpvvktgxhu (Bld) [#/Vol]0.8 10*3/uLLow1.0-3.5ProMedica St. Mary Medical CenterComment on above:Performed By: #### 38793-0, 3, CMP, CBCA #### [facility] ([id number]) [address] [place] [address] 10196Yvzcldimsbe/100 WBC (Bld)15.9 %NormalProSt. Joseph Health [facility] Hospital Comment on above:Performed By: #### 99787-9, 3039-3, CMP, CBCA #### [facility] ([id number]) [address] [place] [address] 36769ZQD (RBC) [Entitic mass]31.4 qpUdxwjb38-91WdnFrcoxhSt. Joseph Health [facility] Station HospitalComment on above:Performed By: #### 24641-5, 3039-3, CMP, CBCA #### [facility] ([id number]) [address] [place] [address] 84008HKNZ (RBC) [Mass/Vol]34.7 g/cPGyyzim56-68HjtXuiljxMemorial HospitalComment on above:Performed By: #### 59666-7, 3040-3, CMP, CBCA #### [facility] ([id number]) [address] [place] [address] 66877PDW (RBC) [Entitic vol]91 gCXonxky47-365WdcHxcmss [facility] HospitalComment on above:Performed By: #### 74628-7, 3040-3, CMP, CBCA #### [facility] ([id number]) [address] [place] [address] 15961Dcyivobiz (Bld) [#/Vol]0.4 10*3/uLNormal0-0.9Memorial HospitalComment on above:Performed By: #### 72827-8, 3040-3, CMP, CBCA #### [facility] ([id number]) [address] [place] [address] 04801Bqgevlqby/100 WBC (Bld)7.7 %[facility] Comment on above:Performed By: #### 91131-9, 3040-3, CMP, CBCA #### [facility] ([id number]) [address] [place] [address] 83800Agjpjjbtocn/100 WBC (Bld)72.6 %[facility] Comment on above:Performed By: #### 03703-0, 3040-3, CMP, CBCA #### [facility] ([id number]) [address] [place] [address] 19416Epvqemzm mean volume (Bld) [Entitic vol]7.8 fLNormal7-12 ProMTemple Community HospitalComment on above:Performed By: #### 50827-7, 3040-3, CMP, CBCA #### [facility] ([id number]) [address] [place] [address], [place] [address]Iocyotpco (Bld) [#/Vol]153 10*3/qMQvplqa422-913SvzTuqsqg [facility] HospitalComment on above:Performed By: #### 89933-5, 3040-3, CMP, CBCA #### [facility] ([id number]) [address] [place] [address] 71665EXG COUNT4.16 X10E12/LNormal4.10-5.70[facility] Comment on above:Performed By: #### 14825-0, 3039-3, CMP, CBCA #### [facility] ([id number]) [address] [place] [address] 20837PCB (Bld) [#/Vol]5.1 10*3/uLNormal4.0-11.0ProSt. Joseph Health [facility] HospitalComment on above:Performed By: #### 80356-0, 3039-3, CMP, CBCA #### [facility] ([id number]) [address] [place] [address] 88543WNKEESAXSTWFM METABOLIC PANELon 91-09-3836Ueqoakw [Mass/Vol]3.5 g/dLNormal3.2-5.3PThe Bellevue HospitalComment on above:Performed By: #### 57708-5, 0-3, CMP, CBCA #### [facility] ([id number]) [address] [place] [address] 09948PJS [Catalytic activity/Vol]45 U/BBynjkt42-932DwqTlvktuSt. Joseph Health [facility] HospitalComment on above:Performed By: #### 58009-6, 3040-3, CMP, CBCA #### [facility] ([id number]) [address] [place] [address] 48628KDK [Catalytic activity/Vol]14 U/LNormal0-40ProSt. Joseph Health [facility] HospitalComment on above:Performed By: #### 88430-5, 3039-3, CMP, CBCA #### [facility] ([id number]) [address] [place] [address], [place] [address]Wzosf gap [Moles/Vol]7 mmol/LNormal5-15ProSt. Joseph Health [facility] HospitalComment on above:Performed By: #### 92963-9, 3039-3, CMP, CBCA #### [facility] ([id number]) [address] [place] [address], [place] 614[address]OMP [Catalytic activity/Vol]17 U/LNormal0-41ProSt. Joseph Health [facility] HospitalComment on above:Performed By: #### 91576-9, 3039-3, CMP, CBCA #### [facility] ([id number]) [address] [place] [address], [place] [address]Ycnlhjzub [Mass/Vol]1.0 mg/dLNormal0.3-1.2PThe [facility]vue HospitalComment on above:Performed By: #### 97790-9, 3039-3, CMP, CBCA #### [facility] ([id number]) [address] [place] [address], [place] 414[address]Vwbqtah [Mass/Vol]8.8 mg/dLNormal8.5-10.5PThe [facility]vue HospitalComment on above:Performed By: #### 76299-2, 3039-3, CMP, CBCA #### [facility] ([id number]) [address] [place] [address], [place] 457[address]Qrkhcfdv [Moles/Vol]105 mmol/BIjjyge57-671PaoRtozluSt. Joseph Health [facility] HospitalComment on above:Performed By: #### 95698-2, 3039-3, CMP, CBCA #### [facility] ([id number]) [address] [place] [address], [place] 538[address]TB9 [Moles/Vol]26 mmol/PPpwznt93-37VciEjsgynThe [facility] Hospital Comment on above:Performed By: #### 34619-6, 3040-01, JUSTIN, ELKE #### [facility] ([id number]) [address] [place] [address] 39933Qzxaysyjtl [Mass/Vol]1.08 mg/dLNormal0.70-1.20ProSt. Joseph Health [facility] HospitalComment on above:Result Comment: METHOD TRACEABLE TO IDMS STANDARD Performed By: #### 90872-8, 3040-01, ELKE ANDERSON #### [facility] ([id number]) [address] [place] [address] 12951YVW/1.73 sq M.predicted among non-blacks MDRD (S/P/Bld) [Vol rate/Area]76 mL/min/{1.73_m2}Normal>59ProSt. Joseph Health [facility] HospitalComment on above:Result Comment: Reported eGFR is based on the CKD-EPI 2020 equation that does not use a race coefficient.Performed By: #### 71779-1, 3040-01, ELKE ANDERSON #### [facility] ([id number]) [address] [place] [address] 75040Ucmczxe [Mass/Vol]113 mg/uXHozd44-01VceSihulfMemorial Hospital Comment on above:Performed By: #### 58809-5, 3040-01JUSTIN CBCA #### [facility] ([id number]) [address] [place] [address] 87041Bvoldbytr [Moles/Vol]4.1 mmol/LNormal3.5-5.0ProSt. [facility] HospitalComment on above:Performed By: #### 04927-9, 3, JUSTIN, ELKE #### [facility] ([id number]) [address] [place] [address] 85062Zfchdas [Mass/Vol]6.2 g/dLNormal6.0-8.0ProSt. [facility] HospitalComment on above:Performed By: #### 95101-0, 3040-3, CMP, CBCA #### [facility] ([id number]) [address] [place] [address] 64053Fbfvnf [Moles/Vol]138 mmol/JJmljsf521-061EypMhfgpp [facility] HospitalComment on above:Performed By: #### 83673-5, 304-3, CMP, CBCA #### [facility] ([id number]) [address] [place] [address] 41732Ektg nitrogen [Mass/Vol]15 mg/dLNormal5-27ProSt. [facility] Health [facility] HospitalComment on above:Performed By: #### 07192-5, 3039-3, CMP, CBCA #### [facility] ([id number]) [address] [place] [address] 68468DW PANELon 52-81-3286Fnzphxhxpjqjmria pathogens DNA and RNA panel MARTHA+non-probe (Stl)SPECIMEN SOURCE STOOL CAMPYLOBACTER Not detected (qualifier value) [...] detected (qualifier value) SAPOVIRUS Not detected (qualifier value)NormalNDETProSt. Joseph Health [facility] Station HospitalComment on above:Performed By: #### 48178-2, 3040-3, CMP, CBCA #### [facility] ([id number]) [address] [place] [address] 65734PJDac 87-27-8108Ljuwuudjpu (Bld) [Volume fraction]39.9 %Normal 39-49[facility] HospitalComment on above:Performed By: #### 24092-3, 3039-3, CMP, CBCA #### [facility] ([id number]) [address] [place] [address] 35444Tjmatadfsh (Bld) [Mass/Vol]13.8 g/xLDnaqjo64.0-17.0ProSelect Medical Special[facility] HospitalComment on above:Performed By: #### 07607-1, 3039-3, CMP, CBCA #### [facility] ([id number]) [address] [place] [address] 41904Tqipfwrmzs (Bld) [Volume fraction]39.7 %Vfwcmr12-33MukCpxcoc [facility] HospitalComment on above:Performed By: #### 92093-0, 3039-3, CMP, CBCA #### [facility] ([id number]) [address] [place] [address] 85281Kzqhagikjh (Bld) [Mass/Vol]13.5 g/bMWrhkvy91.0-17.0Memorial HospitalComment on above:Performed By: #### 69679-5, 3039-3, CMP, CBCA #### [facility] ([id number]) [address] [place] [address] 17525Npdlgycyoh (Bld) [Volume fraction]39.8 %Numeke80-21EeyRwctnm [facility] HospitalComment on above:Performed By: #### 34790-1, 3039-3, CMP, CBCA #### [facility] ([id number]) [address] [place] [address] 31518Seguznkevp (Bld) [Mass/Vol]13.9 g/pSRxogky82.0-17.0ProSelect Medical Specialty [facility] HospitalComment on above:Performed By: #### 44177-6, 304-3, CMP, CBCA #### [facility] ([id number]) [address] [place] [address] 83145Qkogv 1996 panelon 16-79-3682Wesdprjwmzm [Mass/Vol]116 mg/dLLow 150-200ProSt. [facility] HospitalComment on above:Performed By: #### 98642-2, 3039-3, CMP, CBCA #### [facility] ([id number]) [address] [place] [address] 32715Opwvsnsfuww in HDL [Mass/Vol]32 mg/dLLow>39ProSt. [facility] HospitalComment on above:Result Comment: HDL <40 mg/dL - High Risk HDL > or = 40mg/dL- Desirable HDL >60 mg/dL - Negative Risk Performed By: #### 47136-2, 3039-3, CMP, CBCA #### [facility] ([id number]) [address] [place] [address] 13740Yneuwgiqyfh in LDL [Mass/Vol]65 mg/dLNormal<130ProSt. [facility] HospitalComment on above:Result Comment: LDL <100 mg/dL - Desirable LDL >160 mg/dL - High Risk Performed By: #### 04268-3, 3040-3, CMP, CBCA #### [facility] ([id number]) [address] [place] [address] 99505Uebyaqjpodt in VLDL [Mass/Vol]19 mg/dLNormal0-30ProSt. [facility] HospitalComment on above:Performed By: #### 03116-4, 3040-3, CMP, CBCA #### [facility] ([id number]) [address] [place] [address], [place] 34[address]NMYSGNSWDQT:HDL3.4Tdyilz7.0-5.0[facility] Comment on above:Performed By: #### 50329-0, 3040-3, CMP, CBCA #### [facility] ([id number]) [address] [place] [address], [place] 527[address]Oxthhhiusynk [Mass/Vol]97 mg/nCHbboef77-916QhhNvgptj [facility] HospitalComment on above:Performed By: #### 78361-8, 3040-3, CMP, CBCA #### [facility] ([id number]) [address] [place] [address] 94502HVMQUDUSEan 77-95-1592Alihfvayu [Mass/Vol]2.1 mg/dLNormal 1.8-2.6ProSt. [facility] HospitalComment on above:Performed By: #### 88400-2, 3040-3, CMP, CBCA #### [facility] ([id number]) [address] [place] [address], [place] 160[address]SIG AND AUTO DIFFon 30-52-1785JDAKEFIA BASOPHIL0.0 X10E9/L Normal0.0-0.2ProMedHazel Hawkins Memorial HospitalComment on above:Performed By: #### 3040- 3, CMP, CBCA #### [facility] ([id number]) [address] [place] [address], [place] 83223HJHXFVUF NEUTROPHIL4.9 X10E9/LNormal1.5-6.6Memorial HospitalComment on above:Performed By: #### 3040-3, CMP, CBCA #### [facility] ([id number]) [address] [place] [address] 87589Xhumlmmsr/100 WBC (Bld)0.6 %NormalMemorial Hospital Comment on above:Performed By: #### 3040-3, CMP, CBCA #### [facility] ([id number]) [address] [place] [address] 91036Wubgjlkujdx (Bld) [#/Vol]0.1 10*3/uLNormal0.0-0.4Memorial HospitalComment on above:Performed By: #### 3040-3, CMP, CBCA #### [facility] ([id number]) [address] [place] [address] 67735Etjimulepdm/100 WBC (Bld)2.1 %NormalMemorial Hospital Comment on above:Performed By: #### 3040-3, CMP, CBCA #### [facility] ([id number]) [address] [place] [address] 05406Sxiizlfvfpu distribution width (RBC) [Ratio]13.7 %Normal 11.5-15.0Memorial HospitalComment on above:Performed By: #### 3040-3, CMP, CBCA #### [facility] ([id number]) [address] [place] [address] 25344Nmasqainsf (Bld) [Volume fraction]42.1 %Kgrnnz29-70SstKnmyijSt. Joseph Health [facility] Station HospitalComment on above:Performed By: #### 3040-3, CMP, CBCA #### [facility] ([id number]) [address] [place] [address] 58335Mlhfheqbbw (Bld) [Mass/Vol]14.6 g/bBIbiduy51.0-17.0Memorial HospitalComment on above:Performed By: #### 3040-3, CMP, CBCA #### [facility] ([id number]) [address] [place] [address] 25285Xhwadrrkynh (Bld) [#/Vol]0.7 10*3/uLLow1.0-3.5ProMedica St. Mary Medical CenterComment on above:Performed By: #### 3040-3, CMP, CBCA #### [facility] ([id number]) [address] [place] [address] 17691Yighuudmpmw/100 WBC (Bld)11.5 %[facility] Comment on above:Performed By: #### 3040-3, CMP, CBCA #### [facility] ([id number]) [address] [place] [address] 83525QHJ (RBC) [Entitic mass]31.2 twNcpovs05-21TcmGjuvljMemorial HospitalComment on above:Performed By: #### 3040-3, CMP, CBCA #### [facility] ([id number]) [address] [place] [address] 19286HIDQ (RBC) [Mass/Vol]34.8 g/rPWgvwni38-93XoxIjpauySt. Joseph Health College Station HospitalComment on above:Performed By: #### 3040-3, CMP, CBCA #### [facility] ([id number]) [address] [place] [address] 73003ZFW (RBC) [Entitic vol]90 tBJpufbo65-343XzhJpnumdMemorial HospitalComment on above:Performed By: #### 3040-3, CMP, CBCA #### [facility] ([id number]) [address] [place] [address] 01146Fknitftox (Bld) [#/Vol]0.4 10*3/uLNormal0-0.9Memorial HospitalComment on above:Performed By: #### 3040-3, CMP, CBCA #### [facility] ([id number]) [address] [place] [address] 59296Whzvwkjxr/100 WBC (Bld)6.5 %[facility] Comment on above:Performed By: #### 3040-3, CMP, CBCA #### [facility] ([id number]) [address] [place] [address] 54475Nxksckkhmbz/100 WBC (Bld)79.3 %NormalMemorial Hospital Comment on above:Performed By: #### 3040-3, CMP, CBCA #### [facility] ([id number]) [address] [place] [address] 26991Pivlhinv mean volume (Bld) [Entitic vol]7.9 fLNormal7-12 Memorial HospitalComment on above:Performed By: #### 3040-3, CMP, CBCA #### [facility] ([id number]) [address] [place] [address] 22927Coiklneib (Bld) [#/Vol]184 10*3/pTEhvkje374-774VblXhzzpf [facility] HospitalComment on above:Performed By: #### 3040-3, CMP, CBCA #### [facility] ([id number]) [address] [place] [address] 20755GNX COUNT4.69 X10E12/LNormal4.10-5.70[facility] Comment on above:Performed By: #### 3040-3, CMP, CBCA #### [facility] ([id number]) [address] [place] [address] 54388ADD (Bld) [#/Vol]6.2 10*3/uLNormal4.0-11.0Memorial HospitalComment on above:Performed By: #### 3040-3, CMP, CBCA #### [facility] ([id number]) [address] [place] [address] 57315SIMKVUZNXYRIL METABOLIC PANELon 25-65-0678Kgdlcmw [Mass/Vol]4.2 g/dLNormal3.2-5.3PThe Bellevue HospitalComment on above:Performed By: #### 3040-3, CMP, CBCA #### [facility] ([id number]) [address] [place] [address], [place] [address]RWJ [Catalytic activity/Vol]54 U/XXhmggj88-896QbcChlwhrSt. Joseph Health [facility] HospitalComment on above:Performed By: #### 3040-3, CMP, CBCA #### [facility] ([id number]) [address] [place] [address], [place] 80[address]WOQ [Catalytic activity/Vol]19 U/LNormal0-40ProSt. Joseph Health [facility] Station HospitalComment on above:Performed By: #### 3040-3, CMP, CBCA #### [facility] ([id number]) [address] [place] [address], [place] [address]Dcsyt gap [Moles/Vol]7 mmol/LNormal5-15ProSt. Joseph Health [facility] Station HospitalComment on above:Performed By: #### 3040-3, CMP, CBCA #### [facility] ([id number]) [address] [place] [address], [place] [address]JCK [Catalytic activity/Vol]20 U/LNormal0-41ProSt. Joseph Health College Station HospitalComment on above:Performed By: #### 3040-3, CMP, CBCA #### [facility] ([id number]) [address] [place] [address], [place] [address]Bmposbvpf [Mass/Vol]0.6 mg/dLNormal0.3-1.2PThe Bellevue HospitalComment on above:Performed By: #### 3040-3, CMP, CBCA #### [facility] ([id number]) [address] [place] [address], [place] [address]Zfkuwzh [Mass/Vol]9.2 mg/dLNormal8.5-10.5PThe Bellevue HospitalComment on above:Performed By: #### 3040-3, CMP, CBCA #### [facility] ([id number]) [address] [place] [address], [place] [address]Zqgzrlyg [Moles/Vol]103 mmol/HFjxdfr14-450SdmPazbueMemorial HospitalComment on above:Performed By: #### 3040-3JUSTIN, CBCA #### [facility] ([id number]) [address] [place] [address] 16098LE3 [Moles/Vol]25 mmol/LBhbtsh40-37XjzXiaiumThe [facility] Comment on above:Performed By: #### 3040-3JUSTIN, CBCA #### [facility] ([id number]) [address] [place] [address], [place] [address]Kplvaazczb [Mass/Vol]1.02 mg/dLNormal0.70-1.20Memorial HospitalComment on above:Result Comment: METHOD TRACEABLE TO IDMS STANDARD Performed By: #### 3040-3JUSTIN, CBCA #### [facility] ([id number]) [address] [place] [address] 00155UII/1.73 sq M.predicted among non-blacks MDRD (S/P/Bld) [Vol rate/Area]82 mL/min/{1.73_m2}Normal>59Memorial HospitalComment on above:Result Comment: Reported eGFR is based on the CKD-EPI 2020 equation that does not use a race coefficient.Performed By: #### 3040-3JUSTIN, CBCA #### [facility] ([id number]) [address] [place] [address], [place] [address]Uqxnoyi [Mass/Vol]111 mg/fMQjrl02-16GqpImzrcuMemorial Hospital Comment on above:Performed By: #### 3040-3JUSTIN, CBCA #### [facility] ([id number]) [address] [place] [address] 52210Pybtlwazx [Moles/Vol]3.8 mmol/LNormal3.5-5.0ProSt. Joseph Health College Station HospitalComment on above:Performed By: #### 3040-3, CMP, CBCA #### [facility] ([id number]) [address] [place] [address] 02727Pjjgfnx [Mass/Vol]7.3 g/dLNormal6.0-8.0ProSt. Joseph Health College Station HospitalComment on above:Performed By: #### 3040-3, CMP, CBCA #### [facility] ([id number]) [address] [place] [address] 77544Nltiyl [Moles/Vol]135 mmol/LTgxfbq793-179PozEbdtbv [facility]remont HospitalComment on above:Performed By: #### 3040-3, CMP, CBCA #### [facility] ([id number]) [address] [place] [address] 12954Hdng nitrogen [Mass/Vol]17 mg/dLNormal5-27ProSt. Joseph Health [facility] Station HospitalComment on above:Performed By: #### 3040-3, CMP, CBCA #### [facility] ([id number]) [address] [place] [address] 53441JX ABDOMEN AND PELVIS W CONTon 12-68-7577YS ABDOMEN AND PELVIS W CONTCT ABDOMEN AND PELVIS W CONT CT ABDOMEN [...] by Dawit Bland MD on 01/05/2025 10:36 PMNormalProSt. Joseph Health College Station HospitalLIPASEon 15-33-6807Nfgvie [Catalytic activity/Vol]28 U/HVuicqa16-08 Memorial HospitalComment on above:Performed By: #### 3040-3, CMP, CBCA #### [facility] ([id number]) [address] [place] [address] 34321Sduolwp (P flora) [Moles/Vol]on 40-93-9006WOCPUJS W/REFLEX0.7 mmol/LNormal0.4-2.0Memorial HospitalComment on above:Result Comment: Result did not trigger repeat Lactate, re-order if needed.Performed By: #### 90590-6, 3040-3, CMP, CBCA #### [facility] ([id number]) [address] [place] [address] 50567LSJ FECAL OCCULT BLDon 88-58-0700Yrqancvfts.gastrointestinal Ql (Stl)PositiveAbnormalNEGProSt. Joseph Health [facility] Station HospitalComment on above:Performed By: #### 69955-3, 3040-3, CMP, CBCA #### [facility] ([id number]) [address] [place] [address] 43839THC AND AUTO DIFFon 40-02-7182ABPYHHXS BASOPHIL0.0 X10E9/L Normal0.0-0.2PThe Bellevue HospitalComment on above:Performed By: #### 48223-9, 3039-3, CMP, CBCA #### [facility] ([id number]) [address] [place] [address] 37943QBNITZME NEUTROPHIL8.7 X10E9/LHigh1.5-6.6ProSt. Joseph Health [facility] Station HospitalComment on above:Performed By: #### 04104-0, 3039-3, CMP, CBCA #### [facility] ([id number]) [address] [place] [address] 25497Bzhbfutmt/100 WBC (Bld)0.3 %[facility] Comment on above:Performed By: #### 74754-3, 3040-01, CMP, CBCA #### [facility] ([id number]) [address] [place] [address] 15233Rbjetjkmkvb (Bld) [#/Vol]0.1 10*3/uLNormal0.0-0.4ProSt. Joseph Health [facility] Station HospitalComment on above:Performed By: #### 57831-5, 3039-3, CMP, CBCA #### [facility] ([id number]) [address] [place] [address] 24274Pldlbsvckni/100 WBC (Bld)0.9 %NormalMemorial Hospital Comment on above:Performed By: #### 33244-4, 3039-3, CMP, CBCA #### [facility] ([id number]) [address] [place] [address] 11504Aoiwudefyfz distribution width (RBC) [Ratio]13.9 %Normal 11.5-15.0Memorial HospitalComment on above:Performed By: #### 89570-1, 3039-3, CMP, CBCA #### [facility] ([id number]) [address] [place] [address] 43264Iwnocoafqr (Bld) [Volume fraction]43.3 %Qxlunm03-96ElaKzcmxsSt. Joseph Health College Station HospitalComment on above:Performed By: #### 00546-0, 3040-3, CMP, CBCA #### [facility] ([id number]) [address] [place] [address] 26757Pvnlnxvdfs (Bld) [Mass/Vol]14.8 g/yQSpzeed17.0-17.0ProSt. Joseph Health College Station HospitalComment on above:Performed By: #### 06687-8, 3039-3, CMP, CBCA #### [facility] ([id number]) [address] [place] [address] 25589Gsannjayxgu (Bld) [#/Vol]0.8 10*3/uLLow1.0-3.5PThe Bellevue HospitalComment on above:Performed By: #### 76875-8, 3039-3, CMP, CBCA #### [facility] ([id number]) [address] [place] [address] 93727Gpynxoevzas/100 WBC (Bld)7.8 %NormalMemorial Hospital Comment on above:Performed By: #### 57785-1, 3039-3, CMP, CBCA #### [facility] ([id number]) [address] [place] [address] 26090DCT (RBC) [Entitic mass]30.8 mrRpbrsj10-75XxkJozvboSt. Joseph Health College Station HospitalComment on above:Performed By: #### 89194-4, 3039-3, CMP, CBCA #### [facility] ([id number]) [address] [place] [address] 45968SRZV (RBC) [Mass/Vol]34.2 g/oQHucabw61-96CxxVuptjsSt. Joseph Health College Station HospitalComment on above:Performed By: #### 81392-9, 304-3, CMP, CBCA #### [facility] ([id number]) [address] [place] [address] 54122IJQ (RBC) [Entitic vol]90 oWImviwj92-496JhiJwnemhMemorial HospitalComment on above:Performed By: #### 95122-9, 304-3, CMP, CBCA #### [facility] ([id number]) [address] [place] [address] 10780Vybdqwuvm (Bld) [#/Vol]0.2 10*3/uLNormal0-0.9Memorial HospitalComment on above:Performed By: #### 55580-5, 3039-3, CMP, CBCA #### [facility] ([id number]) [address] [place] [address] 06529Clbzxezmo/100 WBC (Bld)2.0 %NormalMemorial Hospital Comment on above:Performed By: #### 75217-9, 3039-3, CMP, CBCA #### [facility] ([id number]) [address] [place] [address] 92055Tszodokrjuw/100 WBC (Bld)89.0 %[facility] Comment on above:Performed By: #### 26227-1, 3039-3, CMP, CBCA #### [facility] ([id number]) [address] [place] [address] 11415Psqktjvk mean volume (Bld) [Entitic vol]7.9 fLNormal7-12 ProMedicEisenhower Medical CenterComment on above:Performed By: #### 57576-3, 3040-3, CMP, CBCA #### [facility] ([id number]) [address] [place] [address] 81408Mxadoyxuu (Bld) [#/Vol]167 10*3/bEOzluaq077-086JajDqsqoj [facility] HospitalComment on above:Performed By: #### 64898-7, 3040-3, CMP, CBCA #### [facility] ([id number]) [address] [place] [address] 24086EZR COUNT4.82 X10E12/LNormal4.10-5.70[facility] Hospital Comment on above:Performed By: #### 81462-3, 3039-3, CMP, CBCA #### [facility] ([id number]) [address] [place] [address] 17145PEL (Bld) [#/Vol]9.7 10*3/uLNormal4.0-11.0ProSt. Joseph Health College Station HospitalComment on above:Performed By: #### 07536-9, 0-3, CMP, CBCA #### [facility] ([id number]) [address] [place] [address] 20434RISNTDMXNYEJP METABOLIC PANELon 78-81-2251Gfldeiv [Mass/Vol]4.0 g/dLNormal3.2-5.3PThe Bellevue HospitalComment on above:Performed By: #### 01855-7, 0-3, CMP, CBCA #### [facility] ([id number]) [address] [place] [address] 00086JJG [Catalytic activity/Vol]57 U/BMawzwj25-378RolWuykmrSt. Joseph Health [facility] Station HospitalComment on above:Performed By: #### 53465-7, 0-3, CMP, CBCA #### [facility] ([id number]) [address] [place] [address] 51429FFN [Catalytic activity/Vol]23 U/LNormal0-40ProSt. Joseph Health [facility] Station HospitalComment on above:Performed By: #### 65194-6, 3040-3, CMP, CBCA #### [facility] ([id number]) [address] [place] [address] 14086Wqjwa gap [Moles/Vol]8 mmol/LNormal5-15ProSt. Joseph Health [facility] Station HospitalComment on above:Performed By: #### 47569-9, 3039-3, CMP, CBCA #### [facility] ([id number]) [address] [place] [address] 04154VMR [Catalytic activity/Vol]24 U/LNormal0-41ProSt. Joseph Health College Station HospitalComment on above:Performed By: #### 41810-5, 3039-3, CMP, CBCA #### [facility] ([id number]) [address] [place] [address] 05507Twxfxjtij [Mass/Vol]1.0 mg/dLNormal0.3-1.2PThe Bellevue HospitalComment on above:Performed By: #### 92996-7, 3039-3, CMP, CBCA #### [facility] ([id number]) [address] [place] [address] 36326Fqcukya [Mass/Vol]9.1 mg/dLNormal8.5-10.5PThe Bellevue HospitalComment on above:Performed By: #### 32841-2, 3039-3, CMP, CBCA #### [facility] ([id number]) [address] [place] [address] 59966Izdaixhi [Moles/Vol]109 mmol/ZXfocjs35-921KuwCrgwrkSt. Joseph Health [facility] HospitalComment on above:Performed By: #### 08980-7, 3039-3, CMP, CBCA #### [facility] ([id number]) [address] [place] [address] 94949VE2 [Moles/Vol]23 mmol/FZxnxam26-62UanTxqbdtThe [facility] Hospital Comment on above:Performed By: #### 04798-5, 3039-3, CMP, CBCA #### [facility] ([id number]) [address] [place] [address] 67693Ddpcbgbuht [Mass/Vol]1.10 mg/dLNormal0.70-1.20ProSt. Joseph Health College Station HospitalComment on above:Result Comment: METHOD TRACEABLE TO IDMS STANDARD Performed By: #### 30594-9, 3039-3, ELKE ANDERSON #### [facility] ([id number]) [address] [place] [address] 59777EHS/1.73 sq M.predicted among non-blacks MDRD (S/P/Bld) [Vol rate/Area]74 mL/min/{1.73_m2}Normal>59ProSt. Joseph Health College Station HospitalComment on above:Result Comment: Reported eGFR is based on the CKD-EPI 2020 equation that does not use a race coefficient.Performed By: #### 31850-3, 3, JUSTIN, ELKE #### [facility] ([id number]) [address] [place] [address] 35885Jssyyof [Mass/Vol]131 mg/nTBxwq27-75FwiQytzxaSt. [facility] Hospital Comment on above:Performed By: #### 64766-5, 3, JUSTIN, ELKE #### [facility] ([id number]) [address] [place] [address] 35919Oygllnbuv [Moles/Vol]3.6 mmol/LNormal3.5-5.0ProSt. Joseph Health College Station HospitalComment on above:Performed By: #### 48996-0, 3039-3, JUSTIN, CBCAbram #### [facility] ([id number]) [address] [place] [address] 63364Fjbaquz [Mass/Vol]6.7 g/dLNormal6.0-8.0ProSt. Joseph Health College Station HospitalComment on above:Performed By: #### 37618-9, 3039-3, JUSTIN, CBCA #### [facility] ([id number]) [address] [place] [address] 95645Elvgnc [Moles/Vol]140 mmol/SLbmdom694-416CdpQsdeta [facility]ont HospitalComment on above:Performed By: #### 54234-7, 3040-3, CMP, CBCA #### [facility] ([id number]) [address] [facility], [place], [place] [address]Epun nitrogen [Mass/Vol]18 mg/dLNormal5-27ProSt. Joseph Health College Station HospitalComment on above:Performed By: #### 43990-8, 3040-3, CMP, CBCA #### [facility] ([id number]) [address] [facility], [place], [place] [address]JC ABDOMEN AND PELVIS W CONTon 91-24-5444MY ABDOMEN AND PELVIS W CONTCT ABDOMEN AND PELVIS W CONT CLINICAL INFORMATION: [...] Doroteo Zambrano DO on 01/02/2025 9:42 PM I, Rony Andrew MD have personally reviewed the image(s) and agree with and/or edited the report Finalized by Rony Andrew MD on 01/02/2025 9:54 PMNormalProSt. Joseph Health College Station HospitalLIPASEon 62-83-4656Boysls [Catalytic activity/Vol]27 U/LYskzuy39-76 ProMTemple Community HospitalComment on above:Performed By: #### 80445-5, 3040-3, CMP, CBCA #### [facility] ([id number]) [address] [place] [address] 06573Fuwtbbz (P flora) [Moles/Vol]on 62-53-9256WQGSOZB W/REFLEX2.3 mmol/LHigh0.4-2.0ProSt. Joseph Health College Station HospitalComment on above:Performed By: #### 68874-7 #### [facility] ([id number]) [address] [place] [address] 93385ESPMWYOHXyh 75-62-6648Ddadrlnwo [Mass/Vol]2.1 mg/dLNormal 1.8-2.6Memorial HospitalComment on above:Performed By: #### 76688-7, 3040-3, CMP, CBCA #### [facility] ([id number]) [address] [place] [address] 12246FHEQ/FLU A+B/RSV by NAAT/Molecularon 38-75-3407QRGK/FLU A+B/RSV by NAAT/MolecularFLU A PCR Negative (qualifier value) FLU B [...] operators who are performing tests using either GeneXpert DX or GeneXpert Infinity systems and is limited to laboratories that [...] specimen repeat. Fact Sheet for Healthcare Providers: https://www.fda.gov/media/280537/download Fact Sheet for Patients: https://www.fda.gov/media/046534/downloadNormalProMedica St. Mary Medical CenterComment on above:Performed By: #### COVFLR #### [facility] ([id number]) [address] [place] [address], [place], [place] [address]Sra 12-11-2024L Specimen: [id number] Received: 12/13/24 Status: YEHUDA Louise Num: [id number] Spec Type: Surgical Subm Dr: Anjana Dietz,[place], [place] Tissues: A Bone Fragments - Other than Path Fracture (OSTEOPHYTES LT ANKLE) Procedures: HE, Gross/Micro L3, Decalcification Age/ Patient Sex Location Account Attending Physician Meredith Villatoro 64/M LABEL [id number] Anjana Dietz DPM, [place] SPEC NUM: [id number] RECD: 12/13/24 STATUS: YEHUDA LOUISE NUM: [id number] MICHEL: 12/11/24-1147 [facility] DR: Anjana Dietz DPM, [place] ENTERED: 12/13/[address]: Dariel,Lab SPEC TYPE: Surgical DEPT: RACQUEL KEITH ENTERED BY: [id number] RECV BY: [id number] ORDERED: HE, Gross/Micro L3, Decalcification ORDERED: HE, [...] , and osteophytes left ankle are 2 chan-josue, granular, ovoid portions of bone, 1.1 x 0.8 x 0.7 cm, and 1.8 x 1.5 x 1.1 cm. The specimens are sectioned to reveal chan-josue, firm and uniform cut surfaces. Collar Stitcher sections are submitted in a single cassette after decalcification. (1, , BS25- A)HAKEEM Specimen: [id number] Received: 12/13/24 Status: YEHUDA Louise Num: [id number] Spec Type: Surgical Subm Dr: Anjana Dietz,DPM, [place] Tissues: A Bone Fragments - Other than Path Fracture (OSTEOPHYTES LT ANKLE) Procedures: LOLA, Gross/Micro L3, Decalcification Patient: Meredith Villatoro [id number] (Continued) Specimen: [id number] Received: 12/13/24 (Continued) Signed (signature on file) Aimee Maloney MD 12/15/24 1714 Specimen: [id number] Received: 12/13/24 Status: YEHUDA Sharmaine Num: [id number] Spec Type: Surgical Subm Dr: Anjana Dietz,[place], [place] Tissues: A Bone Fragments - Other than Path Fracture (OSTEOPHYTES LT ANKLE) Procedures: LOLA, Gross/Micro L3, Decalcification Patient: Meredith Villatoro [id number] (Continued) Specimen: [id number] Received: 12/13/24 (Continued) Microscopic Description Microscopic examinations are performed supporting the above interpretation CPT Codes 85263 00512 Specimen: [id number] Received: 12/13/24 Status: YEHUDA Louise Num: [id number] Spec Type: Surgical Subm Dr: Anjana Dietz,[place], [place] Tissues: A Bone Fragments - Other than Path Fracture (OSTEOPHYTES LT ANKLE) Procedures: Raymond DAVILA/Radha L3, Decalcification Patient: Meredith Villatoro [id number] (Continued) Signed (signature on file) Aimee Maloney MD 12/15/[address] [place] [address] Physician GroupAmbulatory Visit Summary 10-16-2024 Ambulatory Visit SummaryAmbulatory Visit Summary MEREDITH VILLATORO :1960 Visit Date:10/16/2024 [...] AM EST With: Where: [facility] [address] [address]- Wednesday 11:15 AM EST With: Leila LAMBERT MD Where: [facility] [address] [address]- You Need to Schedule the Following Appointments Follow Up with Leila LAMBERT MD, URL When: Comments: 3 mos w/ PSA and Lupron Where: [facility] [address] [place] [address]- [phone] Medications What How Much When Instructions Changed mirabegron (Myrbetriq 50 mg oral tablet, extended release) 2 Tablets By Mouth Every day Duration: 90 Days Pickup at [facility] [id number] Unchanged tamsulosin (tamsulosin 0.4 mg Cap) 1 Capsules By Mouth 2 times a day Unchanged atorvastatin (atorvastatin 10 mg Tab) Contact prescribing physician if questions or concerns Unchanged cyclobenzaprine (cyclobenzaprine 10 mg Tab) Contact prescribing physician if questions orconcerns Unchanged lisinopril (lisinopril 10 mg Tab) Contact prescribing physician if questions or concerns Unchanged metoprolol (Metoprolol tartrate 50 mg Tab) 180 EA, take 1 tablet by mouth twice a day Contact prescribing physician if questions or concerns Unchanged naproxen (naproxen 500 mg Tab) 12 EA, take 1 tablet by mouth every 12 hours NEEDED FORPAIN TAKE WITH FOOD OR MILK Contact prescribing physician if questions or concerns Pharmacy Information [facility] [id number]: [address] [place], [place] [id number] [phone] Allergies No Known Medication Allergies Problems Ongoing [...] urine or semen. ? (more content not included)...[facility] HospitalUrology Office/Clinic Noteon 01-73-4346Hiiaowl Office/Clinic NoteUrology Office/Clinic Note Chief Complaint prostate cancer HPI [...] - 0.6 MRI prostate w/wo con 01/08/22 [facility] - PI-RADS 4 and 5. MRI fusion bx 02/05/22 - [place] 8 (4+4), 18 cores, grade group 4. NM Whole body bone scan 02/20/22 [facility] - No evidence of mets disease [...] Malignant neoplasm of prostate) See #1. Ordered: 75108 Measure Post Void residual urine and/or bladder capacity by US- non-imaging E&M of Est. Patient Moderate 30-39 Min 11416 PSA Total Urnls Dip Stick Auto w/o Microscopy POC 18829 3. Urge incontinence (N39.41: Urge incontinence) PVR (cc): 09/13/23 - 0 10/16/24 - 33 Taking Myrbetriq 50mg qd. Reports voiding q1hr, does not feel he empties after voiding. Leaks on the way to the bathroom at times. Discussed increasing dosage to help better control sxs. Possible SEsdiscussed. -Increase Myrbetriq to 100mg qd. Rx sent to [facility]. Ordered: E&M of Est. Patient Moderate 30-39 Min 62740 4. BPH with obstruction/lower urinary tract symptoms (N40.1: Benign prostatic hyperplasia with lower urinary tract symptoms) Taking Flomax 0.4mg bid. See #3. Ordered: E&M of Est. Patient Moderate 30-39 Min 02170 5. History of prostatitis (Z87.438: Personal history of other diseases of male genital organs) Has been tx'd with Doxycycline and Methenamine in the past. [1] UA today negative for blood and infection. Ordered: E&M of Est. Patient Moderate 30-39 Min 96403 Orders: mirabegron, 100 mg = 2 tab(s), Oral, Daily, X 90 day(s), # 180 tab(s), Refills(s) 3, Pharmacy: [facility] [id number], 160, cm, 10/16/24 12:19:00 EST, Height/Length Dosing, 117, kg, 10/16/24 12:19:00 EST, Weight Dosing Follow-up With When Contact Information Leila LAMBETR MD, [facility] [address], [place] [address]- [phone] Additional Instructions: 3 mos w/ PSA and [...] urinary tract sympt (more content not included)... [facility] HospitalComment on above:Result Comment: Electronically Signed By: Leila LAMBERT MD\.br\Date and Time Signed: 10/16/24 13:03 EST\.br\Electronically Co-Signed By: Molly Murray\saji\Date and Time Co-Signed: 10/16/24 12:59 ESTCHEMISTRYOrdered By: SYSTEM SYSTEM on 04-67-7687Xvokafgu specific Ag [Mass/Vol]0.6 ng/mLNormal0.1 - 3.5 ng/mLRemisol ChemComment on above:Interpretive Data: The concentration of PSA determined by different manufacturers can vary due to differences in assay methods and reagent specificity. Values obtained from different assay methods cannot be used interchangeably. The methodology used for this result was chemiluminescence using [employer]'s Access Hybritech PSA reagent.PSA Totalon 10-03-2024 Prostate specific Ag [Mass/Vol]0.6 ng/mLNormal0.1-3.5[facility] Comment on above:Result Comment: The concentration of PSA determined by different manufacturers can vary due to differences in assay methods and reagent specificity. Values obtained from different assay methods cannot be used interchangeably. The methodology used for this result was chemiluminescence using [employer]'s Access Hybritech PSA reagent.Performed By: #### [id number] #### [facility] [address] [place] [address] 43518NN ANKLE LEFT WO IV CONTRASTon 68-23-4269KY ANKLE LEFT WO IV CONTRASTEXAM: MR ANKLE LEFT WO IV CONTRAST HISTORY: [...] effusion degenerative changes are present along the dorsalmargin of the talonavicular joint including a marginal [...] due to muscle strain. ELECTRONICALLY SIGNED BY: Brendon Mayfield AvailableAmbulatory Visit Summaryon 31-27-4139Kaeowxqvpd Visit Summary MEREDITH VILLATORO :1960 Visit Date:03/17/2024 [...] OVIEDO, Leila Simpson [facility] BellevueNormalHistory of prostatitis, Required & Missing, Print Label By Order Location\.br\ Medications\.br\What How Much When Instructions\.br\ Unchanged mirabegron (Myrbetriq 50 mg oral tablet, extended release) 1 Tablets By Mouth Every day Duration: 90 Days\.br\ Unchanged tamsulosin (tamsulosin 0.4 mg Cap) 1 Capsules By Mouth 2 times a day\.br\ Unchanged atorvastatin (atorvastatin 10 mg Tab) Contact prescribing physician if questions or concerns \.br\ Unchanged cyclobenzaprine (cyclobenzaprine 10 mgTab) Contact prescribing physician if questions or concerns \.br\ Unchanged lisinopril (lisinopril 10 mg Tab) Contact prescribing physician if questions or concerns \.br\ Unchanged metoprolol (Metoprolol tartrate 50 mg Tab) 180 EA, take 1 tablet by mouth twice a day Contact prescribing physician ifquestions or concerns \.br\ Unchanged naproxen (naproxen 500 mg Tab) 12 EA, take 1 tablet by mouth every 12 hours NEEDED FOR PAIN TAKE WITH FOOD OR MILK Contact prescribing physician if questions or concerns \.br\ Allergies\.br\ No Known Medication Allergies\.br\ Problems\.br\ Ongoing - Any problem that you are currently receiving treatment for.\.br\ Arthritis\.br\ Bilateral hydrocele\.br\ BPHwith obstruction/lower urinary tract symptoms\.br\ Dysuria\.br\ Epididymitis\.br\ Feeling of incomplete bladder emptying\.br\ Gross hematuria\.br\ High cholesterol\.br\ History of prostatitis\.br\ Hypertension\.br\ Nocturia\.br\ Prostate cancer\.br\ Prostate nodule\.br\ Prostatitis\.br\ Urge incontinence\.br\ Patient Survey\.br\ You may receive a survey via text or e-mail asking about your officevisit. Please share your experience with us by completing your survey. We appreciate your feedback a nd thank you for choosing us for your [...] \.br\ You have a family history of prostatecancer.\.br\ ? \.br\ You have a family history of breast and ovarian cancer.\.br\ ? \.br\ You have g anahi that are passed from parent to child [...] biopsy).\.br\ ? \.br\ An imaging test called transrectalultrasonography.\.br\ Once the condition is diagnosed, tests will [...] This is called the Judd score and thetotal score can range from 6?10, indicating how likely it is that the cancer will spread (metastasize) to other parts of the body. The higher the score, the greater the likelihood that the cancer will spread.\.br\ ? \.br\ Jud[place] 6 or lower: This indicates that the cancer cells look similar to normal prostate cells (well differentiated).\.br\ ? \.br\ [place] 7: This indicates that the cancer cells look somewhat similar to normal prostate cells (moderately differentiated).\.br\ ? \.br\ [place] 8, 9, or 10: This indicates that the cancer cells look very different than normal prostate cells (poorly differentiated).\.br\ How is this treated?\.br\ Treatment for this condition depends on several factors, including the stage of the cancer, your age, personal preferences, and your overall health.Talk with your health care provider about treatment [...] to as a minimally invasive surgery.\.br\ ? \.br\A robotic radical prostatectomy. This is laparoscopic surgery [...] cancer cells or stops them from multiplying. ItFisher Holy Cross HospitalCHEMISTRYOrdered By: SYSTEM SYSTEM on 52-55-1775Tergvuke specific Ag [Mass/Vol]0.2 ng/mLNormal0.1 - 3.5 ng/mLRemisol ChemComment on above:Interpretive Data: The concentration of PSA determined by different manufacturers can vary due to differences in assay methods and reagent specificity. Values obtained from different assay methods cannot be used interchangeably. The methodology used for this result was chemiluminescence using [employer] [place] [employer]'s Access Hybritech PSA reagent.PSA Total on 58-10-7787Aylkoqas specific Ag [Mass/Vol]0.2 ng/mLNormal0.1-3.5Fisher Holy Cross HospitalComment on above:Result Comment: The concentration of PSA determined by different manufacturers can vary due to differences in assay methods and reagent specificity. Values obtained from different assay methods cannot be used interchangeably. The methodology used for this result was chemiluminescence using [employer]'s Access Hybritech PSA reagent.Performed By: #### [id number] #### [facility] [address] [place] [address] 27751Ltxmhyq Educationon 03-33-5787Gqpxwwt EducationOncology Prostate Cancer The prostate is a small [...] from the prostate and checked under a microscope(prostate biopsy). ? An imaging test called transrectal [...] under a microscope. This is called the [place] score and the total score can range from 6?10, indicating how likely it is that the cancer will spread (metastasize) to other parts of the body. The higher the score, the greater thelikelihood that the cancer will spread. ? [place] 6 or lower: This indicates that the cancer cells look similar to normal prostate cells (well differentiated). ? [place] 7: This indicates that the cancer cells look somewhat similar to normal prostate cells (moderately differentiated). ? [place] 8, 9, or 10: This indicates that [...] seeds, wires, or tubes that are implanted intothe prostate gland. Like external be (more content not included)...NormalFisher Kingston Medical CenterUrology Office/Clinic Noteon 19-35-3881Nvwvkwb Office/Clinic NoteChief Complaint 6m PSA HPI Staff 6 month f/u with PSA Dx: prostate cancer (EBRT 03/23/22 - 04/24/22 and Brachytherapy 05/21/22), urge incontinence, BPH withobstruction/LUTS and prostatitis Myrbetriq 50mg ER qd Did [...] today's appointment. MRI prostate w/wo con 01/08/22 [facility] - PI-RADS 4 and 5. MRI fusion bx 02/05/22 - [place] 8 (4+4), 18 cores, grade group 4. [...] Information PETRA OVIEDO, Leila Simpson, URL [address] [id number]- Additional Instructions: 6 mos w/ PSA Patient [...] Vaccine Date Status Comments (more content not included)...[facility] HospitalComment on above:Result Comment: Electronically Signed By: Leila LAMBERT MD\.br\Date and Time Signed: 03/17/24 12:26 EDT\.br\Electronically Co-Signed By: Lolly Reid\.br\Date and Time Co-Signed: 03/17/2412:21 EDTBasophils Auto (Bld) [#/Vol]Ordered By: Fred Kirk on 64-97-0730Pltmqttkz (Bld) [#/Vol]0.0 10*3/uL0.0-0.2FPaulding County HospitalBasophils/100 WBC Auto (Bld)Ordered By: Fred Kirk on 76-93-2106Orwulogzs/100 WBC (Bld)0.8 %.[facility], AvonEosinophils Auto (Bld) [#/Vol]Ordered By: Fred Kirk on 09-36-2717Cplxubfdbgx (Bld) [#/Vol]0.1 10*3/uL0.0-0.45Fire[facility] Regional Medical CenterEosinophils/100 WBC Auto (Bld)Ordered By: Fred Kirk on 60-30-5563Exlpsuwcwgu/100 WBC (Bld)1.5 %.[facility] Erythrocyte distribution width Auto (RBC) [Ratio]Ordered By: Fred Kirk on 60-48-6922Tgungoxqxur distribution width (RBC) [Ratio]13.1 %12.0-14.8[facility], AvonHematocrit Auto (Bld) [Volume fraction]Ordered By: Fred Kirk on 35-67-7997Peaoqzwesr (Bld) [Volume fraction]42.5 %38.8-50.0 [facility], AvonHemoglobin [Mass/volume] in BloodOrdered By: Fred Kirk on 96-69-8404Ienuheqmoh (Bld) [Mass/Vol]14.8 g/dL13.0-17.0 [facility], AvonIgA [Mass/volume] in Serum or PlasmaOrdered By: Fred Kirk on 34-18-9111OtS [Mass/Vol]205 mg/mQ14-040DifvotiyjSelect Medical [facility] Hospital, AvonComment on above:Performed at: [facility] [place] [id number] Director: Mehran Ortega PhD, Phone: [phone] Leukocytes [#/volume] corrected for nucleated erythrocytes in Blood by Automated counOrdered By: Fred Kirk on 68-30-2283AYA corrected for nucl RBC Auto (Bld) [#/Vol]6.2 10*3/uL4.1-10.5FPaulding County HospitalLymphocytes Auto (Bld) [#/Vol]Ordered By: Fred Kirk on 36-19-7626Lstpcjqeoyd (Bld) [#/Vol]0.7 10*3/uL1.00-4.8[facility], AvonLymphocytes/100 WBC Auto (Bld)Ordered By: Fred Kirk on 53-10-6664Qxjxqoybnis/100 WBC (Bld)11.9 % .[facility], AvonMCH Auto (RBC) [Entitic mass]Ordered By: Fred Kirk on 13-91-0318HXS (RBC) [Entitic mass]31.4 pg27.5-35.2FPaulding County HospitalMCHC Auto (RBC) [Mass/Vol]Ordered By: Fred Kirk on 93-88-9694FEQS (RBC) [Mass/Vol]34.8 g/dL32.5-35.6FPaulding County HospitalMCV Auto (RBC) [Entitic vol]Ordered By: Fred Kirk on 41-88-3772DCE (RBC) [Entitic vol]90.4 fL83.5-101[facility], AvonMonocytes Auto (Bld) [#/Vol]Ordered By: Fred Kirk on 62-21-8181Haelpdczy (Bld) [#/Vol] 0.5 10*3/uL0.0-0.8[facility], AvonMonocytes/100 WBC Auto (Bld) Ordered By: Fred Kirk on 14-19-8837Zkqkxeosi/100 WBC (Bld)7.4 %.[facility], AvonNeutrophils Auto (Bld) [#/Vol]Ordered By: Fred Kirk on 08-62-6605Qostocevicu (Bld) [#/Vol]4.8 10*3/uL1.8-7.7FPaulding County HospitalNeutrophils/100 WBC Auto (Bld)Ordered By: Fred Kirk on 59-26-8246Axynbcfeznj/100 WBC (Bld)78.4 %.[facility], AvonNo Panel InformationOrdered By: Fred Kirk on 37-00-3320Ohskpnvqiq IgA Antibody NegativeNegativeSelect Medical [facility] Hospital, AvonNucleated erythrocytes [Presence] in Blood by Automated countOrdered By: Fred Kirk on 11-30-2023 Nucleated RBC Auto Ql (Bld)0.1 /100{WBC}0-0.5FPaulding County Hospital Platelet mean volume Auto (Bld) [Entitic vol]Ordered By: Fred Kirk on 26-29-7137Zdnvgufx mean volume (Bld) [Entitic vol]7.4 fL6.6-10.1FPaulding County HospitalPlatelets Auto (Bld) [#/Vol]Ordered By: Fred Kirk on 83-93-8511Mqnrdsjcu (Bld) [#/Vol]187 10*3/cS543-817DuszhutbfSelect Medical [facility], AvonRBC Auto (Bld) [#/Vol]Ordered By: Fred Kirk on 05-47-3170VVN (Bld) [#/Vol]4.70 10*6/uL3.90-5.60[facility] Parma Medical Centererum gliadin peptide IgA antibody assay (units/volume)Ordered By: Fred Kirk on 11-30-2023 Gliadin peptide IgA Qn (S)5 units0-[facility], AvonComment on above:Negative 0 - 19 Weak Positive 20 - 30 Moderate to Strong Positive >30 Serum gliadin peptide IgG antibody assay (units/volume)Ordered By: Fred Kirk on 34-91-8710Dyzqspc peptide IgG Qn (S)2 units0-[facility], AvonComment on above:Negative 0 - 19 Weak Positive 20 - 30 Moderate to Strong Positive >30Serum tissue transglutaminase (tTG) IgA antibody assay (units/volume)Ordered By: Fred Kirk on 73-11-0685bBU IgA Qn (S)<2 U/mL0-3 [facility], AvonComment on above:Negative 0 - 3 Weak Positive 4 - 10 Positive >10 Tissue Transglutaminase (tTG) has been identified as the endomysial antigen. Studies have demonstr- ated that endomysial IgA antibodies have over 99% specificity for gluten sensitive enteropathy.Serum tissue transglutaminase (tTG) IgG antibody assay (units/volume)Ordered By: Fred Kirk on 78-00-4394gCK IgG Qn (S)3 U/mL0-5FPaulding County Hospital Comment on above:Negative 0 - 5 Weak Positive 6 - 9 Positive >9Thyrotropin [Units/volume] in Serum or PlasmaOrdered By: Fred Kirk on 38-94-1176SPH Qn 2.85 m[IU]/L0.45-5.33[facility], AvonWBC Auto (Bld) [#/Vol] Ordered By: Fred Kirk on 21-79-2843KOS (Bld) [#/Vol]6.2 10*3/uL4.1-10.5 [facility], AvonCHEMISTRYOrdered By: SYSTEM SYSTEM on 62-77-4635Vgsux gap [Moles/Vol]13 mmol/LNormal6 - 16 mEq/LFTMC RemisolCalcium [Mass/Vol]9.4 mg/dLNormal8.9 - 11.1 mg/dLFTMC RemisolChloride [Moles/Vol]99 mmol/WUtr227 - 111 mmol/LFTMC RemisolCO2 [Moles/Vol]25 mmol/SVyyfpd55 - 31 mmol/LFTMC RemisolCreatinine [Mass/Vol]1.1 mg/dLNormal0.5 - 1.3 mg/dLFTMC RemisolGFR/1.73 sq M.predicted among blacks MDRD (S/P/Bld) [Vol rate/Area] mL/min/1.73 p0Sxvreb>=59mL/min/1.73 m2FT[facility] Chem SGFR/1.73 sq M.predicted among non-blacks MDRD (S/P/Bld) [Vol rate/Area]mL/min/1.73 l4Sxwulh>=59mL/min/1.73 m2 FT Chem SGlucose [Mass/Vol]139 mg/kRBeivxu37 - 199 mg/dLFTMC RemisolPotassium [Moles/Vol]4.5 mmol/LNormal3.5 - 5.3 mmol/LFTMC RemisolSodium [Moles/Vol]132 mmol/XGll562 - 145 mmol/LFTMC RemisolUrea nitrogen [Mass/Vol]28 mg/dLHigh5 - 21 mg/dLFTMC RemisolUrea nitrogen/Creatinine [Mass ratio]26 mg/djVkhp00 - 20FT[facility] RemisolHEMATOLOGYOrdered By: Supriya Sanchez on 90-71-9094Zlqoxkkenmi distribution width (RBC) [Ratio]12.7 %Nuqsks96.9 - 14.2 %[facility] HemeAutoSS Hematocrit (Bld) [Volume fraction]45.6 %Mrhkml44.7 - 49.0 %[facility] HemeAutoSS Hemoglobin (Bld) [Mass/Vol]15.3 g/uWJxaqrf50.5 - 17.5 gm/dLMERCY [facility] [place] HemeAutoSSMCH (RBC) [Entitic mass]31.0 pdYfvgyj48.0 - 34.0 pgFMUSCOGEE HemeAutoSSMCHC (RBC) [Mass/Vol]33.5 g/hNEgorwm73.4 - 36.0 gm/dLFT HemeAutoSSMCV (RBC) [Entitic vol] 92.4 bWUcrnwj56.0 - 100.0 fLMERCY HOSPITAL ARDM[facility] – [place] HemeAutoSSPlatelet mean volume (Bld) [Entitic vol]7.7 fLNormal6.4 - 10.8 fLMERCY HOSPITAL ARDMORE – [place] HemeAutoSSPlatelets (Bld) [#/Vol]198.0 E9/L Hiovmp324.0 - 500.0 E9/LFMUSCOGEE HemeAutoSSRBC (Bld) [#/Vol]4.9 E12/LNormal4.3 - 5.9 E12/LFMUSCOGEE HemeAutoSSWBC corrected for nucl RBC Auto (Bld) [#/Vol]4.8 E9/LNormal 4.0 - 11.0 E9/LFMUSCOGEE HemeAutoSSXR PELVIS 1_2 VIEWSon 62-66-4113US PELVIS 1_2 VIEWSEXAM: XR PELVIS 1_2 VIEWS HISTORY: Malignant tumor of prostate COMPARISON: None. TECHNIQUE: FINDINGS: A single intraoperative spot fluoroscopic image shows numerous radioactive seeds projected over region of prostate. Lower portion of a contrast-filled urinary bladder is visible without appreciable extravasation. IMPRESSION: 1. Radioactive seeding of the prostate without appreciable bladder involvement. Electronically authenticated by: KOBE DOOLEY Date: 2022-05-22 06:41[facility] W MANUAL DIFFon [id number] LYMPH #NormalThe [facility] Medical CenterComment on above:Performed By: #### AR #### [facility] [address] [place] [address] Dr. Lui MaloneyATYPICAL LYMPH %NormalThe [facility] Medical CenterComment on above: Performed By: #### AR #### [facility] [address], [place] [address] Dr. Lui MaloneyBAND #Normal0.0-0.3The Dariel HospitalComment on above: Performed By: #### CBCNGHIA #### [facility] [address] [address] [address] Lui Mitchell %Normal0-5The [facility] Medical CenterComment on above:Performed By: #### CBCNGHIA #### [facility] [address] [address] [address] Lui Beltran #0.00 103/ulNormal0.00-0.10The [facility] HospitalComment on above:Performed By: #### CBCNGHIA #### [facility] [address] [address] [address] Lui Beltran %0.0 %Critically low0.2-2.0The [facility] Medical CenterComment on above:Performed By: #### AR #### [facility] [address] [place] [address] Dr. Lui Ortiz #NormalThe [facility] Medical CenterComment on above:Performed By: #### AR #### [facility] [address] [place] [address] Dr. Lui Ortiz %NormalThe [facility] Medical CenterComment on above:Performed By: #### AR #### [facility] [address] [place] [address] Dr. Lui MaloneyCORRECTED WBCNormal4.0-11.0The [facility] Medical CenterComment on above: Performed By: #### AR #### [facility] [address] [place] [address] Dr. Lui Jain #0.21 103/ulNormal0.00-0.70The [facility] Medical CenterComment on above:Performed By: #### CBCNGHIA #### [facility] [address] [place] [address] Dr. Lui Jain%5.0 %Normal0.9-7.0The [facility] Medical CenterComment on above: Performed By: #### AR #### [facility] [address] [place] [address] Dr. Lui MaloneyHCT41.6 %Critically low42.0-54.0The [facility] Medical CenterComment on above:Performed By: #### CBCNGHIA #### [facility] [address] [address] [address] Lui MaloneyHGB14.5 g/ciZztbia40.0-18.0The [facility] Medical CenterComment on above: Performed By: #### CBCNGHIA #### [facility] [address] [address] [address] Lui Jama #0.63 103/ulCritically low1.20-3.80The [facility] on above:Performed By: #### CBCNGHIA #### [facility] [address] [address] [address] Lui Jama%15.0 %Critically low20.5-60.0The [facility] Memorial Hospitalment on above:Performed By: #### AR #### [facility] [address] [address] [address] Lui WilsonH31.1 ovGgttcb00.9-34.0The [facility] Medical CenterComment on above: Performed By: #### AR #### [facility] [address] [address] [address] Lui WilsonHC34.9 g/wsKhewsk66.9-35.2The [facility] Medical CenterComment on above:Performed By: #### CBCNGHIA #### [facility] [address] [address] [address] Lui WilsonV89.3 hHQrmkrq50.0-94.0The [facility] Medical CenterComment on above: Performed By: #### CBCNGHIA #### [facility] [address] [address] [address] Lui CarusoOCYTE #NormalThe [facility] Medical CenterComment on above: Performed By: #### CBCNGHIA #### [facility] [address] [address] [address] Lui DiorELOCYTE %NormalThe [facility] Medical CenterComment on above: Performed By: #### CBCNGHIA #### [facility] [address] [address] [address] Lui Burkett#0.29 103/ulCritically low0.30-0.80The [facility] Comment on above:Performed By: #### AR #### [facility] [address] [address] [address] Lui Burkett%7.0 %Normal1.7-12.0The [facility] Medical CenterComment on above: Performed By: #### AR #### [facility] [address] [address] [address] Lui LopezV9.4 fLCritically low9.5-13.5The [facility] Medical CenterComment on above:Performed By: #### AR #### [facility] [address] [place] [address] Dr. Lui Encinas #NormalThe [facility] Medical CenterComment on above:Performed By: #### AR #### [facility] [address] [place] [address] Dr. Lui BabbOCYTE %NormalThe [facility] Medical CenterComment on above:Performed By: #### AR #### [facility] [address] [place] [address] Dr. Lui MaloneyNRBCNormalThTriHealth Bethesda Butler HospitalComment on above:Performed By: #### AR #### [facility] [address] [place] [address] Dr. Lui MaloneyPLT155 103/szUzirls613-248Xet [facility] CenterComment on above: Performed By: #### CBCNGHIA #### [facility] [address] [place] [address] Dr. Lui MaloneyRBC4.66 106/ulCritically low4.70-6.10The [facility] Medical CenterComment on above:Performed By: #### AR #### [facility] [address] [place] [address] Dr. Lui MaloneyRDW13.4 %Jfrqvt75.0-15.0The [facility] Medical CenterComment on above: Performed By: #### CBCNGHIA #### [facility] [address] [place] [address] Dr. Lui Vogel #3.07 103/ulNormal1.40-6.50The [facility] Medical CenterComment on above:Performed By: #### CBCMAN #### [facility] [address] [place] [address] Dr. Lui Vogel %73.0 %Uozbzl64.0-75.0The [facility] Medical CenterComment on above: Performed By: #### CBCMAN #### [facility] [address] [place] [address] Dr. Lui MaloneyWBC4.2 103/ulNormal4.0-11.0The [facility] Medical CenterComment on above: Performed By: #### CBCMAN #### [facility] [address] [place] [address] Dr. Lui MaloneyPROF CHEM 8 (BAS METB)on 78-36-8437Tryig gap [Moles/Vol]12.2 mmol/LNormalThe [facility] Medical CenterComment on above:Performed By: #### BMP #### [facility] [address] [place] [address] Dr. Lui MaloneyCalcium [Mass/Vol]8.9 mg/dLNormal8.5-10.1The [facility] Comment on above:Performed By: #### BMP #### [facility] [address] [place] [address] Dr. Lui MaloneyChloride [Moles/Vol]108 mmol/LCritically txrd09-275Meq [facility] CenterComment on above:Performed By: #### BMP #### [facility] [address] [place] [address] Dr. Lui MaloneyCO2 [Moles/Vol]25.1 mmol/DCmbnnk19.0-32.0The [facility] Comment on above:Performed By: #### BMP #### [facility] [address] [place] [address] Dr. Lui MaloneyCreatinine [Mass/Vol]0.92 mg/dLNormal0.70-1.30The [facility] Medical CenterComment on above:Performed By: #### BMP #### [facility] [address] [address] [address] Lui RoldanGFR-AF GIBRALTARIAN>60Normal>=60The [facility] Medical CenterComment on above:Performed By: #### BMP #### [facility] [address] [address] [address] Lui RoldanGFR-NON AF GIBRALTARIAN>60Normal>=60The [facility] Medical CenterComment on above:Performed By: #### BMP #### [facility] [address] [address] [address] Lui MaloneyGlucose [Mass/Vol]128 mg/dLCritically zkbh13-038Ljx [facility] CenterComment on above:Performed By: #### BMP #### [facility] [address] [address] [address] Lui MaloneyPotassium [Moles/Vol]4.3 mmol/LNormal3.5-5.1The [facility] Comment on above:Performed By: #### BMP #### [facility] [address] [address] [address] Lui MaloneySodium [Moles/Vol]141 mmol/XCuqpmv062-638Uto [facility] Comment on above:Performed By: #### BMP #### [facility] [address] [address] [address] Lui MaloneyUrea nitrogen [Mass/Vol]11.0 mg/dLNormal7.0-18.0The [facility] Medical CenterComment on above:Performed By: #### BMP #### [facility] [address] [address] [address] Lui Diaz nitrogen/Creatinine [Mass ratio]12.0 mg/mgNormalThe [facility] Medical CenterComment on above:Performed By: #### BMP #### [facility] [address] [address] [address] Lui MaloneyPROTIMEon 46-42-9954EAV Coag (PPP) [Relative time]0.94 {INR} NormalThe [facility] Medical CenterComment on above:Performed By: #### PT, PTT #### [facility] [address], [place] [address] Dr. Lui ThomasKINDRED HOSPITAL PHILADELPHIASEE BELOWCleveland Clinic Medina HospitalComment on above:Result Comment: DESIRED INR: 2.0 - 3.0 CONDITIONS NOT LISTED BELOW 2.5 - 3.5 FOR PROSTHETIC HEART VALVE REPLACEMENT 2.5 - 3.5 RECURRENT THROMBOSIS Performed By: #### PT, PTT #### [facility] [address] [address] [address] Lui MaloneyPT Coag (PPP) [Time]10.2 sNormal9.0-11.6ThTriHealth Bethesda Butler Hospital Comment on above:Performed By: #### PT, PTT #### [facility] [address] [place], [place] [id number] Dr. Lui HobbsTon 45-07-8024iRCU Coag (Bld) [Time]26.1 gFeypdn48.3-36.2[facility] Medical CenterComment on above:Performed By: #### PT, PTT #### [facility] [address] [place] [address] Dr. Lui MaloneyXR CHEST 2 Von [id number] CHEST 2 VEXAM: XR CHEST 2 V HISTORY: Essential hypertension [...] Electronically authenticated by: KEVIN ESPAÑA Date: 2022-05-14 12:46[facility] W Auto Differential panel (Bld)on [id number] Immature Gran<0.03<0.10 k/uLCleveland ClinicBasophils (Bld) [#/Vol]10*3/uL<0.11 k/uL Ages Brookside ClinicBasophils/100 WBC (Bld)0.5 %[facility] CampusDifferential cell count method Nom (Bld)AutoCleveland ClinicEosinophils (Bld) [#/Vol]0.11 10*3/uL <0.46 k/uLCleMcCullough-Hyde Memorial HospitalEosinophils/100 WBC (Bld)2.5 %[facility] Erythrocyte distribution width (RBC) [Ratio]12.1 %11.5 - 15.0 %[facility] Hematocrit (Bld) [Volume fraction]46.1 %39.0 - 51.0 %[facility] CampusHemoglobin (Bld) [Mass/Vol]16.2 g/dL13.0 - 17.0 g/dLFirelands Regional Medical Center South CampusImmature Gran %0.2 % [facility] CampusLymphocytes (Bld) [#/Vol]0.88 10*3/uLLow1.00 - 4.00 k/uL [facility] CampusLymphocytes/100 WBC (Bld)20.2 %[facility] Medical CenterH (RBC) [Entitic mass]31.0 pg26.0 - 34.0 pgCNationwide Children's HospitalHC (RBC) [Mass/Vol]35.1 g/dL30.5 - 36.0 g/dLThe University of Toledo Medical CenterV (RBC) [Entitic vol]88.3 fL80.0 - 100.0 fLClevelcrawley memorial hospital ClinicMonocytes (Bld) [#/Vol]0.39 10*3/uL<0.87 k/uLFirelands Regional Medical Center South Campus Monocytes/100 WBC (Bld)9.0 %[facility] CampusNeutrophils (Bld) [#/Vol]2.94 10*3/uL1.45 - 7.50 k/uLFirelands Regional Medical Center South CampusNeutrophils/100 WBC (Bld)67.6 %[facility] CampusNucleated RBC (Bld) [#/Vol]10*3/uL<0.01 k/[facility] County HospitalNucleated RBC/100 WBC (Bld) [Ratio]0.0 /100 WBCFirelands Regional Medical Center South CampusPlatelet mean volume (Bld) [Entitic vol]10.0 fL9.0 - 12.7 fLCmarymount hospital ClinicPlatelets (Bld) [#/Vol]171 10*3/uL150 - 400 k/uLFirelands Regional Medical Center South CampusRBC (Bld) [#/Vol]5.22 10*6/uL4.20 - 6.00 m/uLFirelands Regional Medical Center South CampusWBC (Bld) [#/Vol]4.35 10*3/uL3.70 - 11.00 k/uLCleveland Clinic Vital Signs Date TimeVital SignValuePerforming HobxqimdgKridgmef83-36-2683 10:34-0400Body elgnib500 [facility] Stillwaterenrrique Cope MD Work Phone: [facility] [place] [facility]08-21-2025 10:34-0400Body mass index (BMI) [Ratio]41.81 kg/g2RtsgsdrzgxaImmanuel Cope MD Work Phone: [phone] [place] [facility]08-21-2025 10:34-0400Body brhlgu238.05 kgImmanuel Cope MD Work Phone: [phone] [place] [facility]08-21-2025 10:34-0400Diastolic blood wfynhxgi02 mm[Hg]Immanuel Cope MD Work Phone: [facility] [place] [facility]08-21-2025 10:34-0400Heart rate 54 /minImmanuel Cope MD Work Phone: [phone] [place] [facility]08-21-2025 10:34-5126LeX1% (BldA) [Mass fraction]97 %Immanuel Cope MD Work Phone: [phone] [place] [facility]08-21-2025 10:34-0400Systolic blood zfykfbjo042 mm[Hg]Immanuel Cope MD Work Phone: [facility] [place] [facility]04-17-2025 13:48-0400Body iapqtb701 cmJames Posada MD Work Phone: [facility] [place] [facility]04-17-2025 13:48-0400Body mass index (BMI) [Ratio]38.97 kg/n2BunsbJames Posada MD Work Phone: [facility]04-17-2025 13:48-0400Body zvkyxx32.79 kgJames Posada MD Work Phone: [facility]04-17-2025 13:48-0400Diastolic blood mm[Hg]James Posada MD [facility] Vgxfaw72-18-3000 13:48-0400Heart rate 64 /minJames Posada MD Work Phone: [facility] Imfuda84-78-8892 13:48-2351QvT2% (BldA) [Mass fraction]96 %James Posada MD Work Phone: [facility] O[employer]O Gxjjhc08-68-7360 13:48-0400Systolic blood lcaionfo490 mm[Hg]James Posada MD Work Phone: [facility] [employer] Pzzrxd95-30-6966 12:52-0400Body mass index (BMI) [Ratio]38.44 kg/q3TarusFadi Avelar TOLL MECHANIC-KILN TENDER Work Phone: [facility] [employer] Fyuckv00-19-1373 12:52-0400Body dlvgetvbclq33.8 [degF]Fadi Avelar TOLL MECHANIC[employer]KILN TENDER Work Phone: [phone] [place] [address] OQ[employer] Jauois44-86-7421 12:52-0400Body uvcjvi50.43 kgFadi Avelar TOLL MECHANIC[employer]ILN TENDER Work Phone: [facility] [employer] Wnhbpy83-32-7688 12:52-0400Diastolic blood zfsqoeug53 mm[Hg]Fadi Avelar TOLL MECHANIC[employer]KILN TENDER Work Phone: [phone] [place] [address] OQO Byssll56-87-5155 12:52-0400Heart rate 71 /Theresa Avelar TOLL MECHANIC-KILN TENDER Work Phone: [phone] [place] [address] OQO Iofjhd74-63-7822 12:52-0400 Respiratory rate20 /Theresa Avelar TOLL MECHANIC[employer]KILN TENDER Work Phone: [phone] [employer] Lvyfag55-77-1738 12:52-3963EiW1% (BldA) [Mass fraction]98 %Fadi Avelar TOLL MECHANIC[employer]KILN TENDER Work Phone: [facility] [employer] Xjqbaj09-02-0341 12:52-0400Systolic blood auaglohg374 mm[Hg]Fadi Avelar TOLL MECHANIC[employer]KILN TENDER Work Phone: [facility]02-25-2025 13:59-0500Body mass index (BMI) [Ratio]38.52 kg/m2REBECCA Lux MD Work Phone: [facility]02-25-2025 13:59-0500Body temperature 97.2 [degF]REBECCA Lux MD Work Phone: [facility]02-25-2025 13:59-0500Body qibaaj521.2 kgREBECCA Lux MD Work Phone: [facility]02-25-2025 13:59-0500Diastolic blood sytqsltl27 mm[Hg]REBECCA Lux MD Work Phone: [facility]02-25-2025 13:59-0500Heart rate94 /min REBECCA Lux MD Work Phone: [facility]02-25-2025 13:59-0500Respiratory rate 18 /RainerREBECCA Lux MD Work Phone: [facility]02-25-2025 13:59-7711AkG1% (BldA) [Mass fraction]97 %REBECCA Lux MD Work Phone: [facility]02-25-2025 13:59-0500Systolic blood exagdxdg189 mm[Hg]REBECCA Lux MD Work Phone: [facility]02-18-2025 14:37-0500Body xevwlm188 cm Kerri Shah TOLL MECHANIC-KILN TENDER Work Phone: [facility]02-18-2025 14:37-0500Body mass index (BMI) [Ratio]40.21 kg/j1FmbjfceKerri Shah TOLL MECHANIC-KILN TENDER Work Phone: [facility]02-18-2025 14:37-0500Body zcyxee579.97 kgKerri Shah TOLL MECHANIC-KILN TENDER Work Phone: [facility]02-18-2025 14:37-0500Diastolic blood bhcynoez11 mm[Hg]Kerri Shah TOLL MECHANIC-KILN TENDER Work Phone: [facility]02-18-2025 14:37-0500Heart rate 79 /minKerri Shah TOLL MECHANIC-KILN TENDER Work Phone: [facility]02-18-2025 14:37-0500Systolic blood hnucdjst723 mm[Hg]Kerri Shah TOLL MECHANIC-KILN TENDER Work Phone: [facility]02-17-2025 11:24-0500Blood Pressure LocationPatrick LAMBERT [facility]02-17-2025 11:24-0500Body vcjapkvgxym38.6 [degF]Leila LAMBERT [facility]02-17-2025 11:24-0500Diastolic blood mm[Hg]Leila LAMBERT [facility]02-17-2025 11:24-0500Heart rate70 /minPatrick LAMBERT [facility]02-17-2025 11:24-0500Respiratory rate18 /minPatrick LAMBERT [facility]02-17-2025 11:24-0500Systolic blood ccrmcnry751 mm[Hg]Leila LAMBERT [facility]11-18-2024 12:08-0500Blood Pressure LocationPatrick LAMBERT [facility]11-18-2024 12:08-0500Body abjfbbgktrv21.6 [degF]Leila LAMBERT [facility]11-18-2024 12:08-0500Diastolic blood nxvsakde81 mm[Hg]Leila LAMBERT [facility]11-18-2024 12:08-0500Heart rate89 /minPatrick LAMBERT [facility]11-18-2024 12:08-0500Respiratory rate16 /minPatrick LAMBERT [facility]11-18-2024 12:08-0500Systolic blood rceljbew235 mm[Hg]Leila LAMBERT [facility]11-12-2024 08:59-0500Body opnzqw547 cmAntbelle Reilly DPM Work Phone: [phone] [place], [place] 6227211-12-2024 08:59-0500Body mass index (BMI) [Ratio]43.4 kg/n4Gtsivgh Rusher DPM Work Phone: [phone])[address] [place], [place] 6227211-12-2024 08:59-0500Body pmejpf510.13 kgMelo Rusher DPM Work Phone: 1(170)[facility] [place], [place] [address]Ofrqenysre88-78-5836 15:19-0400Body wtagng773 cm Kerri Benitez DPM Work Phone: 1(810)[facility] [place], [place] [address]Fkeyosmpwe55-46-5828 15:19-0400Body mass index (BMI) [Ratio]43.4 kg/o2PosdbrvKerri Benitez DPM Work Phone: [phone] [place], [place] [address]Yhouljjgtk89-31-1030 15:19-0400Body .13 kgKerri Benitez DPM Work Phone: 1(150)[address] [place], [place] 6227210-08-2024 12:35-0400Body dkikeh791 cm [address]10-08-2024 12:35-0400Body mass index (BMI) [Ratio] 43.4 kg/m2h [address] [place], [place] 3833010-08-2024 12:35-0400Body druyun633.13 kg Pmh [address] [place], [place] 3833009-25-2024 11:38-0400Body mass index (BMI) [Ratio] 42.48 kg/a6IcievgjKerri Shah TOLL MECHANIC-KILN TENDER Work Phone: [facility]09-25-2024 11:38-0400Body lzaoef562.77 kgKerri Shah TOLL MECHANIC-KILN TENDER Work Phone: [facility]09-25-2024 11:38-0400Diastolic blood mm[Hg]Kerri Shah TOLL MECHANIC-KILN TENDER Work Phone: [facility]09-25-2024 11:38-0400Systolic blood cpybjscs883 mm[Hg]Kerri Shah TOLL MECHANIC-KILN TENDER Work Phone: [facility]07-25-2024 13:48-0400Body daxqci210.02 [facility]07-25-2024 13:48-0400Body mass index (BMI) [Ratio]43.3 kg/t5QaukipxzySelect [facility]07-25-2024 13:48-0400Body plbift790 [facility]04-03-2024 13:03-0400Body zpqmxu658.02 [facility]04-03-2024 13:03-0400Body mass index (BMI) [Ratio]43.5 kg/f2JltrpstwwSelect [facility]04-03-2024 13:03-0400Body couhmy870.58 [facility] 03-01-2024 13:03-0400Diastolic blood lngwtoak27 mm[Hg][facility]04-03-2024 13:03-0400Heart rate55 /[facility] 03-01-2024 13:03-0400Systolic blood czvcuhtm842 mm[Hg][facility]02-07-2024 11:13-0500Diastolic blood mm[Hg][facility] Work Phone: 1(419)626-[address] [place], [place] 2781202-07-2024 11:13-0500 Heart rate61 /[facility]ad [facility] Work Phone: 1(953)2-[address] [place], [place] 2781202-07-2024 11:13-0500 Respiratory rate18 /[facility] Work Phone: 1(378)8-[address] [place], [place] 2781202-07-2024 11:13-0500 SaO2% (BldA) [Mass fraction]94 %Scurry [facility] Work Phone: 1(328)[address] [place], [place] 2781202-07-2024 11:13-0500 Systolic blood sdudoxjc219 mm[Hg]Scurry [facility] Work Phone: 1(430)[address] [place], [place] 5595702-07-2024 10:03-0500 Body oebtbx686.02 cmErisven [facility] Work Phone: 0(030)[address] [place], [place] 5595702-07-2024 10:03-0500 Body rxahypuxnbs70.7 [degF]José Miguel [facility] Work Phone: 9(530)[address]02-07-2024 10:03-0500 Body .86 kgErisven [employer] Work Phone: 3(813)1-[address] [place], [place] 2781202-06-2024 14:16-0500 Body ovqrrjmvvie57.11 [degF]REBECCA Lux MD Work Phone: [facility]02-06-2024 14:16-0500Body akjbte483.3 kgREBECCA Lux MD Work Phone: [facility]02-06-2024 14:16-0500Diastolic blood facgoazq21 mm[Hg]REBECCA Lux MD Work Phone: [facility]02-06-2024 14:16-0500Heart rate87 /min REBECCA Lux MD Work Phone: [facility]02-06-2024 14:16-0500Respiratory rate 18 /RainerREBECCA Lux MD Work Phone: [facility]02-06-2024 14:16-1186VzH0% (BldA) [Mass fraction]98 %REBECCA Lux MD Work Phone: [facility]02-06-2024 14:16-0500Systolic blood mm[Hg]REBECCA Lux MD Work Phone: [facility]10-16-2023 14:58-0400Blood Pressure LocationPaPharos Innovations [facility]10-16-2023 14:58-0400Diastolic blood btbevhwl13 mm[Hg]Leila LAMBERT [facility]10-16-2023 14:58-0400Heart rate68 /minPaPharos Innovations [facility]10-16-2023 14:58-0400Respiratory rate16 /minPaPharos Innovations [facility]10-16-2023 14:58-0400Systolic blood ydztrhsl625 mm[Hg]Leila LAMBERT [facility]08-14-2023 10:28-0400Blood Pressure LocationPaRiverbed Technologyk LAMBERT [facility]08-14-2023 10:28-0400Diastolic blood mnovenwy63 mm[Hg]Leila LAMBERT [facility] [place] [address]-14-2023 10:28-0400Heart rate57 /minOLX [facility]08-14-2023 10:28-0400Systolic blood gbgeunqn399 mm[Hg]Leila LAMBERT [facility]08-08-2023 13:48-0400Body bfwzjkbkued05.3 [degF]REBECCA Lux MD Work Phone: [facility]08-08-2023 13:48-0400Body .95 kgREBECCA Lux MD Work Phone: [facility]08-08-2023 13:48-0400Diastolic blood uxoclgpt31 mm[Hg]REBECCA Lux MD Work Phone: [facility]08-08-2023 13:48-0400Heart rate64 /min REBECCA Lux MD Work Phone: [facility]08-08-2023 13:48-0400Respiratory rate 18 /RainerREBECCA Lux MD Work Phone: [facility]08-08-2023 13:48-5720AtR2% (BldA) [Mass fraction]97 %REBECCA Lux MD Work Phone: [facility]08-08-2023 13:48-0400Systolic blood mm[Hg]REBECCA Lux MD Work Phone: [facility]06-19-2023 12:21-0400Blood Pressure LocationPatriclinda LAMBERT [facility]06-19-2023 12:21-0400Diastolic blood odeeepiy90 mm[Hg]Leila LAMBERT [facility] [place] [address]-19-2023 12:21-0400Heart rate68 /minLeila LAMBERT [facility]06-19-2023 12:21-0400Respiratory rate16 /minPaverona LAMBERT [facility]06-19-2023 12:21-0400Systolic blood fsnfgtad641 mm[Hg]Leila [facility]-07-2023 13:45-0400Body heightImad Asaad Other [employer] Other 06-07-2023 13:45-0400Body mass index (BMI) [Ratio] 42.51 kg/m2Imad Asaad Other [employer] Other 06-07-2023 13:45-0400Body tguuew292.86 kgImad Asaad Other [employer] Other 06-07-2023 13:45-0400Diastolic blood oioyyciz65 mm[Hg] Imad Asaad Other [employer] Other 06-07-2023 13:45-0400Systolic blood njwjodyx004 mm[Hg] Imad Asaad Other [employer] Other 04-10-2023 15:05-0400Blood Pressure LocationPatrick [employer] [facility]04-10-2023 15:05-0400Diastolic blood udmlpjgh42 mm[Hg]Leila LAMBERT [facility]04-10-2023 15:05-0400Heart rate72 /minPatrick [employer] [facility]04-10-2023 15:05-0400Respiratory rate16 /minPatricOfferti [facility]04-10-2023 15:05-0400Systolic blood ivzmiune406 mm[Hg]Leila LAMBERT [facility]10-07-2022 11:43-0400Blood Pressure LocationLeila LAMBERT [facility]10-07-2022 11:43-0400Diastolic blood dveiksms47 mm[Hg]Leila LAMBERT [facility]10-07-2022 11:43-0400Heart rate63 /minLeila LAMBERT [facility]10-07-2022 11:43-0400Systolic blood obzdzqio239 mm[Hg]Leila LAMBERT [facility]08-09-2022 14:32-0400Body khoyuyqntop81.91 [degF]REBECCA Lux MD Work Phone: [facility]08-09-2022 14:32-0400Body toamzl833.78 kgREBECCA Lux MD Work Phone: [facility]08-09-2022 14:32-0400Diastolic blood sehemsgs81 mm[Hg]REBECCA Lux MD Work Phone: [facility]08-09-2022 14:32-0400Heart rate79 /min REBECCA Lux MD Work Phone: [facility]08-09-2022 14:32-0400Respiratory rate 16 /RainerREBECCA Lux MD Work Phone: [facility]08-09-2022 14:32-7304NvT1% (BldA) [Mass fraction]97 %REBECCA Lux MD Work Phone: [facility]08-09-2022 14:32-0400Systolic blood oygxvqhr121 mm[Hg]REBECCA Lux MD Work Phone: [facility]07-21-2022 08:30-0400Body temperature 96.91 [degF]REBECCA Lux MD Work Phone: [facility]07-21-2022 08:30-0400Body .51 kgREBECCA Lux MD Work Phone: [facility]07-21-2022 08:30-0400Diastolic blood byzrladh74 mm[Hg]REBECCA Lux MD Work Phone: [facility]07-21-2022 08:30-0400Heart rate51 /min REBECCA Lux MD Work Phone: [facility]07-21-2022 08:30-0400Respiratory rate 16 /RainerREBECCA Lux MD Work Phone: [facility]07-21-2022 08:30-4884ZnQ4% (BldA) [Mass fraction]98 %REBECCA Lux MD Work Phone: [facility]07-21-2022 08:30-0400Systolic blood gcjgfgia463 mm[Hg]REBECCA Lux MD Work Phone: [facility]07-07-2022 13:37-0400Body temperature 97.39 [degF]REBECCA Lux MD Work Phone: [facility]07-07-2022 13:37-0400Body .33 kgREBECCA Lux MD Work Phone: [facility]07-07-2022 13:37-0400Diastolic blood skurwyqa75 mm[Hg]REBECCA Lux MD Work Phone: [facility]07-07-2022 13:37-0400Heart rate59 /min REBECCA Lux MD Work Phone: [facility]07-07-2022 13:37-0400Respiratory rate 18 /RainerREBECCA Lux MD Work Phone: [facility]07-07-2022 13:37-6069TgO6% (BldA) [Mass fraction]97 %REBECCA Lux MD Work Phone: [facility]07-07-2022 13:37-0400Systolic blood mm[Hg]REBECCA Lux MD Work Phone: [facility]05-23-2022 13:36-0400Body temperature 97.59 [degF]REBECCA Lux MD Work Phone: [facility]05-23-2022 13:36-0400Body aoowkv487.58 kgREBECCA Lux MD Work Phone: [facility]05-23-2022 13:36-0400Diastolic blood ifhlpakr79 mm[Hg]REBECCA Lux MD Work Phone: [phone]05-23-2022 13:36-0400Heart rate56 /min REBECCA Lux MD Work Phone: [facility]05-23-2022 13:36-0400Respiratory rate 18 /RainerREBECCA Lux MD Work Phone: [facility]05-23-2022 13:36-5048AaV8% (BldA) [Mass fraction]99 %REBECCA Lux MD Work Phone: [facility]05-23-2022 13:36-0400Systolic blood taphwvth442 mm[Hg]REBECCA Lux MD Work Phone: [facility]05-16-2022 13:48-0400Body temperature 96.69 [degF]Yevgeniy Son MD Work Phone: [facility]05-16-2022 13:48-0400Body .59 kgYevgeniy Son MD Work Phone: [facility]05-16-2022 13:48-0400Diastolic blood mm[Hg]Yevgeniy Son MD Work Phone: [facility]05-16-2022 13:48-0400Heart rate62 /min Yevgeniy Son MD Work Phone: [facility]05-16-2022 13:48-0400Respiratory rate 20 /minSashley Son MD Work Phone: [facility]05-16-2022 13:48-4836FkA4% (BldA) [Mass fraction]97 %Yevgeniy Son MD Work Phone: [facility]05-16-2022 13:48-0400Systolic blood yexmzxrv404 mm[Hg]Yevgeniy Son MD Work Phone: [facility]05-09-2022 13:32-0400Body temperature 96.69 [degF]REBECCA Lux MD Work Phone: [facility]05-09-2022 13:32-0400Body rswkeb814.96 kgREBECCA Lux MD Work Phone: [facility]05-09-2022 13:32-0400Diastolic blood cxnleacs84 mm[Hg]REBECCA Lux MD Work Phone: [facility]05-09-2022 13:32-0400Heart rate63 /min REBECCA Lux MD Work Phone: [facility]05-09-2022 13:32-0400Respiratory rate 16 /RainerREBECCA Lux MD Work Phone: [facility]05-09-2022 13:32-8905WiF7% (BldA) [Mass fraction]98 %REBECCA Lux MD Work Phone: [facility]05-09-2022 13:32-0400Systolic blood fnquphtg840 mm[Hg]REBECCA Lux MD Work Phone: [facility]05-03-2022 13:36-0400Body temperature 97.11 [degF]REBECCA Lux MD Work Phone: [facility]05-03-2022 13:36-0400Body mzfgki482.32 kgREBECCA Lux MD Work Phone: [facility]05-03-2022 13:36-0400Diastolic blood qsaikijo51 mm[Hg]REBECCA Lux MD Work Phone: [facility]05-03-2022 13:36-0400Heart rate55 /min REBECCA Lux MD Work Phone: [facility]05-03-2022 13:36-0400Respiratory rate 16 /RainerREBECCA Lux MD Work Phone: [facility]05-03-2022 13:36-4481BtO0% (BldA) [Mass fraction]98 %REBECCA Lux MD Work Phone: [facility]05-03-2022 13:36-0400Systolic blood krcrkrab481 mm[Hg]REBECCA Lux MD Work Phone: [facility]04-25-2022 15:33-0400Body temperature 97.2 [degF]REBECCA Lux MD Work Phone: [facility]04-25-2022 15:33-0400Body umrwfr547.59 kgREBECCA Lux MD Work Phone: [facility]04-25-2022 15:33-0400Diastolic blood oxkppbxe14 mm[Hg]REBECCA Lux MD Work Phone: [facility]04-25-2022 15:33-0400Heart rate69 /min REBECCA Lux MD Work Phone: [facility]04-25-2022 15:33-0400Respiratory rate 18 /RainerREBECCA Lux MD Work Phone: [facility]04-25-2022 15:33-0133WzT0% (BldA) [Mass fraction]97 %REBECCA Lux MD Work Phone: [facility]04-25-2022 15:33-0400Systolic blood fxdykedu644 mm[Hg]REBECCA Lux MD Work Phone: [facility]04-13-2022 12:55-0400Body fkjvys882.5 cmNA Angélica OVIEDO Work Phone: [facility]04-13-2022 12:55-0400Body temperature 96.69 [degF]REBECCA Lux MD Work Phone: [facility]04-13-2022 12:55-0400Body mgrcaz212.86 kgNA Angélica OVIEDO Work Phone: [facility]04-13-2022 12:55-0400Diastolic blood qkcthipn94 mm[Hg]REBECCA Lux MD Work Phone: [facility]04-13-2022 12:55-0400Heart rate61 /min REBECCA Lux MD Work Phone: [facility]04-13-2022 12:55-0400Respiratory rate 16 /RainerREBECCA Lux MD Work Phone: [facility]04-13-2022 12:55-6247IcE8% (BldA) [Mass fraction]95 %REBECCA Lux MD Work Phone: [facility]04-13-2022 12:55-0400Systolic blood ttdynvef251 mm[Hg]REBECCA Lux MD Work Phone: [facility] Encounters Encounter DateEncounter TypeCare ProviderFacilityStart: 70-40-2572vsmfexysqj Leila LAMBERTFacility:[facility]ianevueStart: 27-88-0592niaxsjukpsEmepgvv R WATERS Facility:EU [place]ueStart: 10-08-2025 End: 74-89-9707dymuboqcgtBQUWFP BOWDENProMedica Fremont HospitalStart: 10-05-2025 End: 03-62-5424Jmhunmryo encounterEhute Gross MD Work Phone: [facility] CenterComment on above:AppointmentStart: 10-03-2025 End: 71-44-3371hrfzedynkhZEHHCNYZNBlanchard Valley Health System Start: 09-17-2025 End: 65-26-5986hrxrmkhyalZqfdwvi R WATERSFacility:EU ueStart: 09-17-2025 End: 36-37-9035Jzhkojg encounter procedureLeila LAMBERT [facility] start: 09-13-2025 End: 36-99-3981ugpsvqrjbgOzoizzd R WATERSFacility:EU [place]vueStart: 09-13-2025 End: 77-23-0263Zraitwe encounter procedureLeila LAMBERT [facility] start: 08-13-2025 End: 77-44-1887jfsswzzlvbYwqgptq R WATERSFacility:EU tart: 08-13-2025 End: 79-62-2086Usnrdps encounter procedureLeila LAMBERT [facility] start: 07-19-2025 End: 05-43-6261Jnrxjr outpatient visit [facility] medical centerKinjal Burton PA-C Work Phone: [facility] CardiologyComment on above: Primary hypertension (Primary Dx)Start: 07-19-2025 End: 91-88-2944hiddtujapxHVUKMHTKSWE O NKADIProMedica San Jose Medical Centertart: 07-18-2025 End: 95-84-1375Lvlurqmwg encounterLisa Monica REYESProMedica Physicians Cardiology Start: 06-20-2025 End: 16-62-1886FjutqjMgmb [facility] CardiologyComment on above:Med RefillStart: 06-14-2025 End: 74-18-6405Eftlbkvsb department patient visitBlack [facility] Hospital HospitalStart: 63-10-4644lmiwhdvrmtOZMCOTI WATERS Facility:[facility] Hospitaltart: 04-11-2025 End: 32-78-7642Ghxrlqgptd hospital visit by physicianArrival Time Radiology Work Phone: Radiology Pet CTStart: 04-10-2025 End: 99-24-2446PiladiFxmwkahghKaleigh Wells [facility]icians CardiologyComment on above:Med RefillChest PainStart: 04-10-2025 End: 19-93-6196Oejppiqvp department patient visitCOMSelect Medical [facility] HospitalStart: 04-02-2025 End: 86-57-7372Cubfyguuf encounterG Johan Lux MD Work Phone: Cancer Appts MCComment on above:Nm Pet RequestStart: 03-26-2025 End: 08-57-7221lylxehcznzJxvjtbb R WATERSFacility:EU [place]vueStart: 03-22-2025 End: 01-10-7761XzaxiaWrdkKavon Wells Physicians CardiologyComment on above:Med RefillStart: 03-15-2025 End: 00-65-6991Ncpolb outpatient visit 25 minutesJames Posada MD Work Phone: [facility] CardiologyComment on above:S/P CABG x 2 (Primary Dx); Postoperative atrial fibrillation ([facility])Start: 03-15-2025 End: 48-90-8993jguqikobgkMELQU AdeolaMarinHealth Medical Centertart: 03-14-2025 End: 72-66-3660Xfcfbiqmb encounterJeri Bales CMAProMedica Physicians CardiologyStart: 03-14-2025 End: 81-98-0460Ekdmia follow up visit related to original Ricardo Avelar TOLL MECH[employer]IC[employer]KILN [employer]ENDER Work Phone: [facility] TowerComment on above: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 ([facility]) (Primary Dx) Start: 03-14-2025 End: 03-96-6047knbkhyonwzGSMIXEXDLDouglas County Memorial Hospital Start: 03-07-2025 End: 09-79-9656ygijeluumhLykvwnq R WATERSFacility:EU [place]kyStart: 03-05-2025 End: 12-48-7136Hkccoggfx encounterAlana SmithProMedica Call CenterComment on above:orders (Contract: [id number] re orders)Start: 03-05-2025 ambulatoryPaverona LAMBERTFacility:EU BellevueStart: 03-04-2025 End: 39-20-6533Rgoaepdjb encounterAlana SmithProMedica Call CenterComment on above:Hypotension (Contract: PPCRD/[id number] TT [place] re Low blood pressure; Rm B673)Start: 03-03-2025 End: 77-83-8662Dvcthqmrb encounterTamika EnochProMedica Call CenterComment on above:Acute MIStart: 45-33-6088isuymojlxtVEEAHGKAZMercyhealth Mercy Hospital Ambulatory PPGStart: 97-61-4093xafrhexufcDzvrbjn R WATERSFacility:[place] Start: 02-28-2025 End: 06-37-1392hhzkwwozsqGKEFOM U [facility] HospitalStart: 02-27-2025 End: 62-62-5068Djpzcmxvnb and management of inpatientROBERT D BEACHAM MEMORIAL HOSPITALEPWood County Hospital HospitalStart: 83-81-2211zcdirthxdgENBPAVaughan Regional Medical Center HospitalStart: 02-24-2025 End: 96-49-1480jhvmlmroniZSTYGVSCI HEALTH SERVICESMemorial Hospital Start: 02-23-2025 End: 27-71-8512Yyxipidrc department patient visitCOMMUNLICKING MEMORIAL HOSPITAL [facility] SERVICES [facility] HospitalStart: 02-22-2025 End: 32-96-1217ocdoeppcdlBnqilgn [facility] Work Phone: Start: 02-22-2025 End: 11-75-8072Ulojdcfl ReferredLancaster General Hospital Work Phone: [facility]-LAB Path Spec [place] HospStart: 02-22-2025 End: 06-78-3585uqmdpaedpbSathtfq R WATERSFacility:CD:[id number]: 02-20-2025 End: 85-76-6816fwqbrmmgktQGFJTRVN E PERRYFacility:EU BellevueStart: 02-06-2025 End: 89-21-3938giqwjjhayaIypasgd R WATERSFacility:FTMCStart: 02-06-2025 End: 76-87-7203Nkcwwnd encounter procedureLeila LAMBERT [facility] Start: 96-07-1593vmhldwsityOKLJVMercy Health Lorain Hospitaltart: 01-23-2025 End: 24-72-8428Gjvcds outpatient visit 15 minutesG Johan Lux MD Work Phone: Radiation OncologyComment on above:Prostate cancer (HCC) (Primary Dx)Start: 01-23-2025 End: 52-38-9024bdempyfriyYMitch MEDINAacility:[facility] Start: 01-16-2025 End: 13-54-9028Jvkeac outpatient visit 15 minutesKerri BAILEY Work Phone: [facility] Physicians General SurgeryComment on above: Gastroenteritis and colitis, viral (Primary Dx); Irritable bowel syndrome, unspecified typeStart: 01-16-2025 End: 41-13-9958pvoowitddmDCCNSUDDeer Park Hospital Ambulatory PPG Start: 01-15-2025 End: 48-27-4438prbimsnuwvNneitvn R WATERSFacility:EU BellevueStart: 01-15-2025 End: 18-80-2602Phusgpr encounter procedureLeila LAMBERT [facility] Dariel start: 01-10-2025 End: 73-77-2317Rka Drop Lissette Johnson [facility] start: 01-10-2025 End: 20-52-4591bbsbamxuqgCrszcys R WATERSFacility:EU [facility] Centertart: 01-10-2025 End: 41-77-2131Irebzpm encounter procedureLeila LAMBERT [facility] start: 01-05-2025 End: 72-96-3447Gwvsesjzi department patient visitMICHAEL P [facility] Hospitaltart: 01-05-2025 End: 30-45-5146lyzeajevzxYOUMBGVXQ HEALTH SERVICESMemorial Hospital Start: 01-02-2025 End: 69-03-6453Ieqdbtcde department patient visitCARTERET HEALTH [facility] [place] Hospitaltart: 12-11-2024 End: 74-55-0803psnbrpplxmCkdeb D [facility] Work Phone: Start: 12-11-2024 End: 27-41-2175Grwsznuf ReferredBarix Clinics Of [place] DPM Work Phone: [facility] Ctr-LAB Path Spec [place] HospStart: 15-88-0306Kwc-patient / Non-visitPeSSM Health St[facility] DPM Work Phone: [facility] OutPt Work Phone: Start: 10-16-2024 End: 15-60-8098ghiptsnzpqOtqiigw R WATERSFacility:EU White HospitalueStart: 10-16-2024 End: 16-64-4811Wduzexl encounter procedureLeila LAMBERT [facility] start: 10-10-2024 End: 43-99-8516Grexld flowsheetMelo Reilly DPM Work Phone: NOMS PODIATRYStart: 10-10-2024 End: 92-16-3110Iqtrdg flowsSteven Soha Evans DPM Work Phone: NOMA PODIATRYStart: 10-10-2024 End: 89-70-5786Zrfues outpatient visit 15 minutesMelo Reilly DPM Work Phone: noms PODIATRYComment on above:Arthritis of left ankle (Primary Dx); Other synovitis and tenosynovitis, left ankle and foot; Chronic pain of left ankleStart: 10-10-2024 End: 48-34-5323nvnxgneznrFTXSQBE Soha REILLYNot AvailableStart: 10-03-2024 End: 45-47-3148nnpsahonzsBiudwns R WATERSFacility:FTMCStart: 10-03-2024 End: 91-61-5767Zgu Drop offLeila LAMBERT [facility] Start: 10-03-2024 End: 53-77-1054tkowojkmevPbzzwzz R WATERSFacility:EU BellevueStart: 10-03-2024 End: 23-98-3483Qsppxuf encounter procedureLeila LAMBERT [facility] start: 09-26-2024 End: 68-15-2960Bajlml outpatient visit 15 minutesKerri Benitez DPM Work Phone: noms PODIATRYComment on above:Arthritis of left ankle (Primary Dx); Other enthesopathy of left foot and ankle; Chronic pain of left ankle; Other synovitis and tenosynovitis, left ankle and footStart: 09-26-2024 End: 44-69-3049rspjlrrjyzGBIBUDMLucille Mujica AvailableStart: 09-26-2024 End: 60-83-6535Zlyexk flowsWatson Benitez DPM Work Phone: noms PODIATRYStart: 09-26-2024 End: 63-15-3267Tuwpbv Pilo Benitez DPM Work Phone: NOTZ PODIATRYStart: 09-15-2024 End: 93-80-7221Zrtrgyxoc encounterWillie Jason CMASelect Medical Specialty [facility], Inc Physicians General SurgeryStart: 09-05-2024 End: 59-28-5699ugcsusgejeJhr Pat Phone Call Provider [address] [place] [address] AdmitStart: 08-24-2024 End: 95-37-7289Sbcqlwukz encounterKerri Benitez DPM Work Phone: noms PODIATRYComment on above:Advice OnlyStart: 08-23-2024 End: 71-06-2715Erdbqk outpatient new 30 minutesArch[facility] TOLL MECHANIC-KILN TENDER Work Phone: [facility] Physicians [facility] SurgeryComment on above: Diarrhea, unspecified type (Primary Dx); Fecal urgency; Personal history of prostate cancerStart: 08-23-2024 End: 35-34-9098rlmdpgacziVLISHHMDeer Park Hospital Ambulatory PPG Start: 07-18-2024 End: 84-75-8884Ovbhbf Pilo Benitez DPM Work Phone: NOMS PODIATRYStart: 07-18-2024 End: 19-69-4842Yftbzs Pilo Benitez DPM Work Phone: NOYU PODIATRYStart: 07-18-2024 End: 25-47-8139Redoxs outpatient visit 25 minutesKerri Benitez DPM Work Phone: noms PODIATRYComment on above:Arthritis of left ankle (Primary Dx); Other enthesopathy of left foot and ankle; Chronic pain of left ankle; Other synovitis and tenosynovitis, left ankle and foot; Difficulty walkingStart: 07-18-2024 End: 44-64-2721pcatpngxdsBXBBUGCLucille Mujica AvailableStart: 06-23-2024 End: 59-51-1569mlzwvxyivnTMAVSEULucille Mujica AvailableStart: 06-22-2024 End: 82-53-7398nwzhfryimpZcxkvfwdfThe [facility] Work Phone: Start: 06-22-2024 End: 86-67-8664Zvowhwu encounter procedureFirprecious Physician Group[facility] Work Phone: Start: 06-15-2024 End: 89-15-6707khqfukelicPEOTNUC W CLARKENotawana AvailableStart: 05-16-2024 End: 06-21-5318grazzqomdlPIKCUSI W CLARKENotawana AvailableStart: 03-17-2024 End: 61-60-2813folcrxyaktBohxfmu R WATERSFacility:FTMCStart: 03-17-2024 End: 98-65-5110Xje Drop offLeila LAMBERT [facility] Start: 03-17-2024 End: 72-35-5504viktytziaoUjlxwlx R WATERSFacility:EU BellevueStart: 03-17-2024 End: 40-00-0117Jnxdbpu encounter Edison LAMBERT [facility] start: 03-01-2024 End: 55-65-8376pehuvqdimpBtgcjggrcThe [facility] Work Phone: Start: 03-01-2024 End: 35-88-1405Aiaddvv encounter procedureJuliana Physician [facility] Work Phone: Start: 73-24-8752Hii-patient / Non-visitErie [facility] Work Phone: [facility] Work Phone: Start: 01-04-2024 End: 08-67-1096Wtmkqnj encounter procedureG Johan Lux MD Work Phone: Radiation OncologyComment on above:History of prostate cancer (Primary Dx); Prostate cancer (HCC)Start: 11-30-2023 End: 31-12-2690skdaohacrhPkoy [facility] Dept Work Phone: [facility] Work Phone: Start: 11-30-2023 End: 42-90-4668Fntffvi encounter procedureErie [employer] [facility] Dept Work Phone: [facility]-Lab [place] Work Phone: Start: 11-30-2023 End: 87-56-4631Dggwmao encounter procedureErie [employer] [facility] Dept Work Phone: [facility] Gastroenterology Work Phone: Start: 09-13-2023 End: 77-50-6959Rxjhcut encounter procedurePaverona LAMBERT [facility] start: 07-12-2023 End: 69-21-1303Dmzsmsa encounter procedurePaverona LAMBERT [facility] start: 07-06-2023 End: 06-66-9546Sagllql encounter procedureG Johan Lux MD Work Phone: Radiation OncologyComment on above:Malignant neoplasm of prostate (HCC) (Primary Dx); Gynecomastia, maleStart: 05-17-2023 End: 11-51-1733Mikogdh encounter procedureLeila LAMBERT [facility] start: 05-12-2023 End: 83-09-7553Kfuxxym encounter procedurePaverona LAMBERT [facility] start: 05-05-2023 End: 03-20-0445qxqphvsisuEswq Asaad Other [employer] walnut 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 Other Start: 63-53-3673Cbokrs outpatient new 45 minutesImad AsaadFPG GastroenterologyStart: 03-08-2023 End: 89-37-7179Lvllxzt encounter procedurePaverona LAMBERT [facility] start: 02-16-2023 End: 93-84-1785dhpfremeepKG LEILA LAMBERT .Facility:J7Feaei: 01-21-2023 End: 15-82-6339ycctikcxcdYggaklkjrl Kaetzel RD Work Phone: sANDUSKYStart: 01-21-2023 End: 37-51-8909Awjsvanwh therapyJaluigi Russell RD Work Phone: Nutrition TherapyComment on above:Nutrition Telephone Start: 24-49-2035avibxqxlgfHcdgijpg:91337Ataoe: 01-20-2023 End: 77-97-5988Itxwfxp encounter procedureEdgar Ross [facility] Start: 09-04-2022 End: 98-71-4145Qeniqlo encounter procedureLeila LAMBERT [facility] start: 07-15-2022 End: 57-11-5669Brojrog encounter procedureLanayden Valverde ClemonsExec[facility] Person Start: 07-07-2022 End: 41-67-9110Rodalie encounter procedureJhony Lux MD Work Phone: Radiation OncologyComment on above:Malignant neoplasm of prostate (HCC) (Primary Dx)Start: 06-18-2022 End: 11-62-2700Tlykjsp encounter procedureJhony Lux MD Work Phone: Radiation OncologyComment on above:Malignant neoplasm of prostate (HCC) (Primary Dx)Start: 46-35-1180Rohsmanft Oncology NoteG Johan Lux MD Work Phone: Radiation OncologyComment on above:Simulation Note Start: 06-18-2022 End: 29-33-4571Iylyojlahq hospital visit by physicianPet Ct Scan [facility] Work Phone: Radiology Pet CTStart: 06-04-2022 End: 60-43-6386Pdqijja encounter procedureG Johan Lux MD Work Phone: Radiation OncologyComment on above:Malignant neoplasm of prostate (HCC) (Primary Dx)Start: 05-27-2022 End: 90-19-9372Okggcre encounter procedureMaricruz Johnson [facility] start: 05-21-2022 End: 96-58-6050xsdeekxjzdKR LEILA LAMBERT .Facility:B4Ydbss: 05-21-2022 End: 02-11-4149Jgvqnjg encounter procedureG Johan Lux MD Work Phone: Radiation OncologyComment on above:Malignant neoplasm of prostate (HCC) (Primary Dx)Start: 15-68-5602Ggthcxcaw for preprocedural cardiovascular examinationDR LEILABRIDGET LAMBERT .[facility] HospitalStart: 31-14-1430Djauhdbcv for preprocedural laboratory examinationDR LEILA LAMBERT . [facility] HospitalStart: 05-14-2022 End: 63-17-1919tsecwxerazKM LEILA LAMBERT .Facility:M4Ckyhk: 05-14-2022 End: 57-36-3576Flpvfmhhg for preprocedural cardiovascular examinationDR LEILA LAMBERT .Facility:L5Rdfje: 35-92-3091Nmjqehy encounter procedureG Johan Lux MD Work Phone: SANDUSKYStart: 65-45-2152Yymjkqcid Oncology NoteG Johan Lux MD Work Phone: Radiation OncologyComment on above:Treatment Planning Start: 05-05-2022 End: 44-29-3052Uhlbzst encounter procedureJhony Lux MD Work Phone: Radiation OncologyComment on above:Malignant neoplasm of prostate (HCC) (Primary Dx)Start: 20-95-8455Knlmvuwyn Oncology NoteJhony Lux MD Work Phone: Radiation OncologyComment on above:Simulation Note Start: 98-77-0483Cskdzzt encounter procedureJhony Lux MD Work Phone: SANDUSKYStart: 14-36-6379Cninzhthy Oncology NoteG Johan Lux MD Work Phone: Radiation OncologyComment on above:Completion Note Start: 04-21-2022 End: 31-25-3259Rulvdlm encounter procedureLab/Port Radt Molly Work Phone: Radiation OncologyComment on above:Dysuria (Primary Dx)Start: 04-20-2022 End: 58-65-9182Ktiykvc encounter procedureJhony Lux MD Work Phone: Radiation OncologyComment on above:Malignant neoplasm of prostate (HCC) (Primary Dx); DysuriaStart: 22-18-5849Txcjqrgrh encounterJhony Lux MD Work Phone: Radiation OncologyComment on above:DiarrheaStart: 04-13-2022 End: 44-48-1150Vqrnnxk encounter procedureSashley Son MD Work Phone: Radiation OncologyComment on above:Malignant neoplasm of prostate (HCC) (Primary Dx)Start: 04-06-2022 End: 72-63-5134Oqkfrua encounter procedureJhony Lux MD Work Phone: Radiation OncologyComment on above:Malignant neoplasm of prostate (HCC) (Primary Dx)Start: 04-02-2022 End: 07-81-9460Xyqadbj encounter procedureLab/Port Radt Molly Work Phone: Radiation OncologyComment on above:Prostate cancer (HCC)Malignant neoplasm of prostate (HCC) (Primary Dx)Start: 03-31-2022 End: 22-97-9656Gurjrmn encounter procedureG Johan Lux MD Work Phone: Radiation OncologyComment on above:Malignant neoplasm of prostate (HCC) (Primary Dx)Start: 48-38-6475Lrpgyhz encounter procedureCcf [facility] DepartmentStart: 03-23-2022 End: 41-11-8618Dmwikdb encounter procedureG Johan Lux MD Work Phone: Radiation OncologyComment on above:Malignant neoplasm of prostate (HCC) (Primary Dx)Start: 19-69-7775Pqgzgfu encounter procedureCcf [facility] DepartmentStart: 50-21-2625Mguupeyyh encounterG Johan Lux MD Work Phone: Radiation OncologyComment on above:OrdersStart: 03-16-2022 End: 42-41-2091Dkesmwbwhd hospital visit by physicianJhony Lux MD Work Phone: Radiology Pet CTStart: 51-15-0515Ccpogey encounter procedureG Johan Lux MD Work Phone: SANDUSKYStart: 52-40-4026Mazlsaukf Oncology NoteG Johan Lux MD Work Phone: Radiation OncologyComment on above:Simulation Note Treatment PlanningStart: 41-20-0603fltxpjmqeyWngeyg Weyer RNRadiation Oncology Comment on above:Patient EducationStart: 03-11-2022 End: 54-58-0835Iyyejvi encounter procedureG Johan Lux MD Work Phone: Radiation OncologyComment on above:Prostate cancer (HCC) (Primary Dx) Procedures DateProcedureProcedure DetailPerforming ClinicianStart: 05-20-0844Svqzhn-up visitFollow-upMANEL BOUMEGOUASStart: 16-37-5628Gcvhl depression screening assessmentTaalbuquerque indian health center Enn[facility] hospitalStart: 03-98-6242Sddqs 1996 panel - Serum or PlasmaArrival Radiology Work Phone: Start: 02-87-4458Iztnuufgyaqik prostatectomyPatrick LAMBERT Start: 54-74-5055UcydfozcthLxajinq LAMBERT Start: 69-92-3304UBE screeningCcf ProviderStart: 56-12-6077Zxsfw 1995 panel - Serum or PlasmaREBECCA Lux MD Work Phone: Start: 68-45-0782TmfnmuwdssaFjbdnv Venia CMAStart: 96-31-2118RDI screeningCcf ProviderStart: 02-16-2023 End: 87-71-0163TQL screeningCcf ProviderComment on above:Performed By: #### PSAD #### [facility] [address] [place] [address] Dr. Poe ChangStart: 79-76-3457Wzsin 1995 panel - Serum or PlasmaREBECCA Lux MD Work Phone: Start: 97-67-7369Nmhwdltteymc of radioactive seed into prostateLannette ClemonsStart: 33-65-3803Dzaul count complete auto&auto difrntl wbcG Johan Lux MD Work Phone: Start: 30-17-2137MAY-US fusion guided transrectal biopsy of prostateKathy Lue Start: 51-16-2241BSB of prostateKathy Lue ColonoscopyKathy Lue Coronary artery bypass grafts x 2Patrick LAMBERT History of coronary artery bypass graftingS/P CABG x 2 James Posada MD Work Phone: History of coronary artery bypass graftingS/P CABG x 2 Ignacia Abdul RNHistory of coronary artery bypass graftingS/P CABG x 2Mmeri Bearden RN Plan of Treatment DateCare ActivityDetailAuthorStart: 60-07-0256Ggwoihrte for malignant neoplasm of colonNODE HealthcareStart: 07-98-6717Uxuff panelLipid ScreeningZanesville City Hospitaltart: 32-92-8058Swrmzhjm specific antigen measurementProstate Cancer Screening DiscussionZanesville City Hospitaltart: 34-13-8477Vmkpr panelLipid Screening [facility] Hospitaltart: 61-39-8409Ivgjrxjpy for malignant neoplasm of colon ColonoscopyUNC Health Appalachiantart: 25-44-1856Lpdetagy specific antigen measurementProstate Cancer Screening DiscussionZanesville City Hospitaltart: 04-10-2028 Diabetes ScreeningDiabetes ScreeningZanesville City Hospitaltart: 28-37-9050OSWYQQZV CANCER SCREENING DISCUSSIONPROSTATE CANCER SCREENING DISCUSSIONFirelands Regional Medical Center [facility] Start: 65-47-1455Phtxsflp ScreeningDiabetes ScreeningZanesville City Hospitaltart: 66-86-6939DKKPJRGB CANCER SCREENING DISCUSSIONPROSTATE CANCER SCREENING DISCUSSIONZanesville City Hospitaltart: 17-37-2852Hnoga panelLipid ScreeningZanesville City Hospitaltart: 56-42-2962QJMLF SCREENLIPID SCREENZanesville City Hospitaltart: 10-05-2026 Adult BMI ScreeningAdult BMI ScreeningUNC Health Appalachiantart: 10-03-2026 Statin Use: CardiovascularStatin Use: CardiovascularThe Christ Hospital System Start: 39-01-9000Pnfxd BMI ScreeningAdult BMI ScreeningEast [facility] Start: 27-99-1381Rnqrcwt ScreeningTobacco ScreeningThe Christ Hospital SystemStart: 41-11-4236Nkaeh BMI ScreeningAdult BMI ScreeningThe Christ Hospital SystemStart: 81-29-6130Biftc BMI ScreeningAdult BMI ScreeningThe Christ Hospital SystemStart: 86-26-3124Nrmalfh ScreeningTobacco ScreeningThe Christ Hospital SystemStart: 60-12-8702Fqrcyw Use: CardiovascularStatin Use: CardiovascularThe Christ Hospital SystemStart: 50-01-8705Uwezx BMI ScreeningAdult BMI ScreeningUNC Health Appalachiantart: 83-83-0134Tyeuvwj ScreeningTobacco ScreeningEast [facility] Regional Hospital Start: 73-47-7192Ldwjx BMI ScreeningAdult BMI ScreeningEast [facility] Regional Hospital Start: 15-75-1624Msesw BMI ScreeningAdult BMI ScreeningEast [facility] Regional Hospital Start: 96-02-1842Ppukq BMI ScreeningAdult BMI ScreeningThe [facility] Hospital System Start: 73-88-4201Xgkys BMI ScreeningAdult BMI ScreeningThe [facility] Hospital [facility] Start: 85-77-0266Tcgcgse ScreeningTobacco ScreeningThe Christ Hospital SystemStart: 71-80-7699Dpjsdbjwro ScreeningDepression ScreeningThe Christ Hospital SystemStart: 01-29-2026 End: 76-65-1364Mfjbbwq encounter zfgfitdpk97/03/2026 11:00 AM EST Office Visit [facility] [place] [place] [address] [place] [address] Dayna Gross MD [address] [facility] [address] [place] [address] [facility]ertart: 01-24-2026 End: 95-48-3970Bydrbvc encounter procedureRadiation OncologyComment on above:1 year follow upStart: 01-23-2026 End: 09-12-8303Zdtmixck specific Ag [Mass/volume] in Serum or PlasmaPROSTATE- SPECIFIC ANTIGEN DIAGNOSTIC Lab Routine Prostate cancer (HCC) Expected: 01/23/2026, Expires: 04/24/2026[facility] Work Phone: Comment on above:Expected: 01/23/2026, Expires: 04/24/2026Start: 31-79-7770Hxzth BMI ScreeningAdult BMI ScreeningThe Christ Hospital SystemStart: 93-90-7089Ojafscy ScreeningTobacco ScreeningThe Christ Hospital SystemStart: 11-12-2025 End: 33-81-0042Jvadeym encounter wtykajqvw02/15/2025 1:30 PM EST Office Visit [facility], A Department of [place] [address] [place] [address] Akiko Santacruz PA-C [address] [facility], [address] [place] [address] [facility], A Department of [facility] Start: 54-96-2312Anfgu BMI ScreeningAdult BMI ScreeningEast [facility] Regional Hospital Start: 21-87-1645Ahcxylz ScreeningTobacc ScreeningUNC Health Appalachiantart: 91-62-9016Yghtp BMI ScreeningAdult BMI ScreeningUNC Health Appalachiantart: 91-06-2924Vafkq BMI ScreeningAdult BMI ScreeningUNC Health Appalachiantart: 55-12-8548Xrjdpqg ScreeningTobacco ScreeningUNC Health Appalachiantart: 01-58-4422OIEWC-19 Vaccine ( season)COVID-19 Vaccine ()[facility]iantart: 85-26-8834Jbescomtp vaccinationInfluenza VaccineUNC Health Appalachiantart: 07-19-2025 End: 84-64-1939Afdqzbl encounter /21/2025 10:45 AM EDT Office Visit [facility] [address] [place] [address] Kinjal Burton PA-Bereket [address] [place] [address] Immanuel Cope MD [address] [place], [place] [id number] [facility] CardiologyStart: 79-55-5284Akmnxpux ScreeningDiabetes Screening [facility] Hospitaltart: 34-61-4370BEIESMWH SCREENDIABETES SCREENFirelands Regional Medical Center [facility] Campus Start: 06-21-2025 End: 15-16-0804Rkpikls encounter ighnzbjdt73/24/2025 2:15 PM EDT Office Visit [facility] [address] [place] [address] Kinjal Burton PA-C [address] [place] [address] Clarence Maza MD [address] [place] [address] [facility] CardiologyStart: 06-19-2025 End: 20-63-2860Aobscxo encounter qkyvspiug59/22/2025 2:00 PM EDT Office Visit [facility] [address] [place] [phone] Kinjal Burton PACatC [address] [place] [address] [facility] CardiologyStart: 04-11-2025 End: 68-54-4218Yuazkjx encounter vdubhfspo34/14/2025 1:30 PM EDT Appointment Radiology Pet CT [address] [place] [address] [place] [address] PSMA- outside orderRadiology Pet CTComment on above:PSMA-outside orderStart: 03-84-9568Zkujt-19 Vaccine ( season)Covid-19 Vaccine ( season)[facility] Hospitaltart: 61-35-4411GFAKT-19 Vaccine (4 - Mixed Product risk season)COVID-19 Vaccine (4 - Mixed Product risk ) [facility] SystemStart: 03-15-2025 End: 47-59-2277Fqztevx encounter uttxpvmiu34/17/2025 2:00 PM EDT Office Visit [facility] [address] [place] [address] James Posada MD [address] [place] [address] [facility] CardiologyStart: 03-14-2025 End: 42-04-5818Uwcfeoq encounter nmpizwcpe77/16/2025 1:00 PM EDT Office Visit [facility] [address] [place] [address] EzvUrascd Physicians Cardiothoracic Surgeons - Gerber Tyson TowRoosevelt General Hospitaltart: 01-02-2025 End: 89-05-9537Pncfmon encounter uypkgdqkz16/04/2025 1:45 PM EST Office Visit Radiation Oncology [address] [place] [address] [place] [address] Jhony Lux MD [address] [place] [address] [place] [address] 1 yr rvRadiation OncologyComment on above:1 yr rvStart: 47-40-9099Ohmjvkk Directive DiscussionAdvance Directive DiscussionAges [facility] ClinicStart: 18-18-0676UGYSC-19 Vaccine ( season)COVID-19 Vaccine ( season)[facility] SystemStart: 10-10-2024 End: 27-66-4823Zhpmtxn encounter tsicwgybe69/12/2024 9:00 AM EST Office Visit [facility] [address] [place] [address] Melo Reilly, DPM [address] [place], [place] [phone] [facility] PODIATRYStart: 09-26-2024 End: 66-55-5441Jccusjc encounter procedureNOMS PODIATRYComment on above: ArrivedStart: 09-11-2024 End: 77-37-6464Hvvsjprgj to same day surgery gknqqo3709/11/2024 11:30 AM EDT - 09/11/2024 12:00 PM EDT Surgery [facility] - Surgery [address] [place] [address] Tracy Almaguer DO [address] [place], [place] [phone] COLONOSCOPY DIAGNOSTIC / SCREENING [96274 (CPT)][facility] - SurgeryComment on above:COLONOSCOPY DIAGNOSTIC / SCREENING [83595 (CPT )]Start: 09-11-2024 End: 34-63-6684Jzreabxnoca flx dx w/collj spec when pfrmdCOLONOSCOPY DIAGNOSTIC / SCREENING diarrhea 09/11/2024 11:30 AM EDTFREMONT SURGERYStart: 09-11-2024 Subsequent hospital visit by tfcrqewoh46/14/2024 11:30 AM EDT Hospital Encounter [facility] Surgery [address] [place] [address] Tracy Almaguer, [address] [place] [address] [facility] - SurgeryStart: 09-05-2024 End: 46-87-5328lydqafjumo30/08/2024 2:50 PM EDT Support Visit [facility] Admit [address] [place] [address] [facility] - Pre AdmitStart: 08-28-2024 End: 02-79-1401Bghsgdg encounter /30/2024 11:30 AM EDT Appointment [facility] - [place] Imaging [address] [place] [address] QndNpstpaUniversity [facility]als [facility] - CT ImagingStart: 08-17-2024 End: 24-92-5771Tmdfbnr encounter /19/2024 3:15 PM EDT Office Visit [facility] [address] [address] Kerri Benitez, DPM [address] [place], [place] [id number] [facility]RYStart: 88-15-5753Kinvl-19 Vaccine ( season) Covid-19 Vaccine ( season)[facility]: 99-33-2622Dmvspieed vaccinationZanesville City Hospitaltart: 07-18-2024 End: 82-67-8657Pazuujc encounter aiobbjikj27/20/2024 1:15 PM EDT Office Visit [facility] [address] [place] [address] Kerri Benitez, DPM [address] [place] [id number] ArrivedNOMS PODIATRYComment on above:ArrivedStart: 21-51-4597Ofgjeuoqd aortic aneurysm screeningAbdominal Aortic Aneurysm (AAA) ScreenUNC Health Appalachiantart: 95-59-7662Yxzmvaw Directive DiscussionAdvance Directive Discussion [facility]: 88-80-4042Egdh Risk ScreeningFall Risk ScreeningUNC Health Appalachiantart: 78-95-1577Lddnwcfnjpgh Vaccine: 65+ Years (1 of 1 - PCV) Pneumococcal Vaccine: 65+ Years (1 of 1 - PCV)[facility] HealthcareStart: 01-05-2024 [facility]art: 25-63-0173Nrgwmhvjig Assessment Depression AssessmentZanesville City Hospitaltart: 91-15-7793Hgrxe-19 Vaccine ( season)Covid-19 Vaccine ( season)[facility]: 74-57-8731Tmecmudqz vaccinationZanesville City Hospitaltart: 85-56-6142PXGYLMJVJI ASSESSMENTDEPRESSION ASSESSMENTZanesville City Hospitaltart: 07-72-5854Vswapyxio vaccinationZanesville City Hospitaltart: 07-05-2022 End: 60-52-7472Qdfekuth specific Ag [Mass/volume] in Serum or Plasma PSA/PROSTSPECAG DIAG Lab Routine Malignant neoplasm of prostate (HCC) Expected: 07/05/2022, Expires: 09/04/2022[facility] Work Phone: Comment on above:Expected: 07/05/2022, Expires: 09/04/2022tart: 04-28-2022 End: 92-62-8826TL DIP B/OUA DIP B/O Lab Routine Malignant neoplasm of prostate (HCC) Dysuria Expected: 04/28/2022, Expires: 06/28/2022[facility] Work Phone: Comment on above:Expected: 04/28/2022, Expires: 06/28/2022tart: 04-20-2022 End: 75-93-8700Uxpijadjum complete panel - UrineURINALYSIS, WITH MICROSCOPIC Lab Routine Malignant neoplasm of prostate (HCC) Expected: 04/20/2022,Expires: 06/20/2022[facility] Work Phone: Comment on above:Expected: 04/20/2022, Expires: 06/20/2022tart: 04-02-2022 End: 87-35-0978XYT W Auto Differential panel - BloodCBC + DIFF Lab Routine Prostate cancer (HCC) Expected: 04/02/2022, Expires: 06/02/2022[facility] Work Phone: Comment on above:Expected: 04/02/2022, Expires: 06/02/2022tart: 97-53-7858ZKKKS-19 VACCINE (3 - Booster for Moderna series) COVID-19 VACCINE (3 - Booster for Moderna series)[facility]: 97-48-7888HNUTG-19 VACCINE (3 - Booster for Moderna series)COVID-19 VACCINE (3 - Booster for Moderna series)[facility]: 61-31-8273EQDYT-19 VACCINE (3 - Moderna series)COVID-19 VACCINE (3 - Moderna series)[facility]: 32-26-8706YCITC-19 Vaccine (3 - Moderna risk series)COVID-19 Vaccine (3 - Moderna risk series)[facility]Start: 55-37-8723XSZ Vaccine (1 - 1- dose 60+ series)RSV Vaccine (1 - 1-dose 60+ series)[facility]: 60-41-1385XSI Vaccine (1 - Risk 60-74 years 1-dose series)RSV Vaccine (1 - Risk 60-74 years 1-dose series)[facility]: 77-77-9031PHRWDMSH CANCER SCREENING DISCUSSIONPROSTATE CANCER SCREENING DISCUSSIONZanesville City Hospitaltart: 42-67-3057Hjkrifhcn for malignant neoplasm of lungLung Cancer ScreeningCleKing's Daughters Medical Center Ohiotart: 14-35-3466GXEPBHGO VACCINE (1 of 2)SHINGRIX VACCINE (1 of 2) [facility]: 72-85-7574RCXBGQVOP (FIT-DNA)COLOGUARD (FIT-DNA)[facility]: 16-73-4364RlclfqagpxvBYJCERVLEZABixxyiypw ClinicStart: 2004 COLORECTAL CANCER SCREENINGCOLORECTAL CANCER SCREENINGZanesville City Hospitaltart: 08-96-1963RF COLONOGRAPHYCT COLONOGRAPHYZanesville City Hospitaltart: 2004 DIABETES SCREENDIABETES SCREENZanesville City Hospitaltart: 78-37-7067HNOCT OCCULT BLOODFECAL OCCULT BLOODZanesville City Hospitaltart: 99-13-4391Xyheitdww for malignant neoplasm of colonZanesville City Hospitaltart: 80-90-0585LZMLPXWKJNHTJRZEWKIWWYZIKY [facility]: 41-80-3205LJWEO SCREENLIPID SCREENZanesville City Hospitaltart: 31-32-0962Owuvojiterkydo of varicella zoster vaccineZoster (Shingles) Vaccine (1 of 2)[facility]: 33-92-8748EByR,Tdap and Td Vaccines (1 - Tdap)DTaP,Tdap and Td Vaccines (1 - Tdap)[facility]: 80-22-3179ZDRELZNJ VACCINE (1 of 2)SHINGRIX VACCINE (1 of 2)[facility] Start: 64-87-3880Dqtbr microalbumin profileZanesville City Hospitaltart: 1978 Adult BMI Follow Up PlanAdult BMI Follow Up PlanProMount St. Mary Hospitaltart: 75-01-1685Bulbmll ScreeningAnxiety ScreeningZanesville City Hospitaltart: 1978 Depression ScreeningDepression ScreeningZanesville City Hospitaltart: 1978 HEPATITIS C SCREENINGHEPATITIS C SCREENINGZanesville City Hospitaltart: 1978 Hepatitis C screeningHepatitis C ScreeningZanesville City Hospitaltart: 36-80-6939MLF SCREENINGHIV SCREENINGZanesville City Hospitaltart: 72-71-7598VMJ screeningHIV ScreeningZanesville City Hospitaltart: 76-03-4170Worgd depression screening assessment DEPRESSION SCREENINGZanesville City Hospitaltart: 79-65-7816YGWVODXZGYBJ (1 - PCV) PNEUMOCOCCAL (1 - PCV)[facility]: 47-39-1398Onoggspvzeax vaccination Pneumococcal Vaccine (1 of 2 - PCV)[facility]: 68-92-4815Xnqdyfaukuvd Vaccine: 65+ (1 of 2 - PCV)Pneumococcal Vaccine: 65+ (1 of 2 - PCV)[facility]: 28-90-9018Msdnvkpih aortic aneurysm screeningAbdominal Aortic Aneurysm ScreeningZanesville City Hospitaltart: 1959Medicare Annual Wellness VisitMedicare Annual Wellness VisitUNC Health Appalachiantart: 1960 Screening for malignant neoplasm of colonCox Walnut Lawn End: 62-24-2340HnxjpkpksavSbemisqexna GI Routine Diarrhea, unspecified type 1 Occurrences starting 08/23/2024 until 08/23/2025[facility] Work Phone: Comment on above:1 Occurrences starting 08/23/2024 until 08/23/2025Endomysial antibody IgA levelSelect Medical [facility] Gliadin peptide IgA Ab [Units/volume] in SerumSelect Medical [facility] Gliadin peptide IgG Ab [Units/volume] in SerumSelect [facility] IgA [Mass/volume] in Serum or PlasmaSelect Medical [facility] End: 77-86-1459KbbEbiref Cardiac RehabProMedica Cardiac Rehab Card Rehab Routine S/P CABG x 2 1 Occurrences starting 03/15/2025 until 09/14/2025[facility] Work Phone: Comment on above:1 Occurrences starting 03/15/2025 until 09/14/2025Tissue transglutaminase IgA Ab [Units/volume] in SerumSelect Medical Cleveland Clinic Rehabilitation Hospital, AvonTissue transglutaminase IgG Ab [Units/volume] in Serum [facility] Immunizations Immunization DateImmunizationNotesCare ZfdroxzhBcjssdnm52-45-1962xqzuwbxut, high dose seasonal, preservative-freeTamiWyandot Memorial Hospital11-06-2024 Pneumococcal Conjugate 20-valentTamiWyandot Memorial Hospital11-06-2024RSV vaccine, preF A-preF B, recombinantPatrick DailyTicket [facility]11-06-2024RSV, bivalent, protein subunit RSVpreF, diluent reconstituted, 0.5 mL, PFTaSelect Medical [facility], [facility]11-06-2024influenza virus vaccine, unspecified formulationTami Ennorton [facility] hospitalExec[facility] [place] 136631-01-2021SARS-CoV-2 (COVID-19) Ad26 vaccine, recombinantKathy Lue [facility] 04062691-20-7127ZDQC-PzP-1 (COVID-19) mRNA-1273 vaccine Leila Daily[employer] [facility] on above:Result Comment: 2023-05-17: 6842-31-9470SDMQ-CoV-2 (COVID-19) Ad26 vaccine, recombinantKathy Lue [facility] 03110279-12-9577PBUP-DqA-7 (COVID-19) mRNA-1273 vaccine Leila DailyT[employer] [facility] on above:Result Comment: 2023-05-17: 8629-92-4082MKRB-CoV-2 (COVID-19) Ad26 vaccine, recombinantKathy Lue [facility] 11701485-13-6666zvisxhzyt virus vaccine, unspecified formulationPaRiverbed Technologyk DailyTicket [facility]11-04-2019influenza, injectable, quadrivalent, preservative freeTaSelect Medical [facility]10-29-2018influenza virus vaccine, unspecified formulationPaRiverbed Technologylinda DailyTicket [facility]10-29-2018influenza, injectable, quadrivalent, preservative freeTamika EnochProHolzer HospitalGstveq00-87-2213caltbkssj virus vaccine, unspecified formulationPaverona DailyTicket [facility] Payers DatePayer CategoryPayerPolicy [id number] [id number] 2022MedicareAETNA MEDICARE AETNA MEDICARE ASSURE O D SNP [id number] 2021-Present [phone] [place] [address] [id number] 2022Medicare [id number] 2022Medicare (Managed Care)AETNA MEDICARE Member Subscriber Plan / Payer (Effective 2021-Present) Name: Meredith Villatoro Relation to Subscriber: Self Name: Meredith Villatoro Payer ID: 1 (NAIC) Type: Medicare Address: [address] [place] [id number] 2022Medicare O AETNA MEDICARE [id number] [id number] [id number] 37-00-5481[facility] [id number] 2.0.1.529942.3.57[id number] 2.0.1.449408.3.57[id number] 2.0.1.124938.3.57[id number] 2.160.1.364972.3.579.2.40533-48-6621Wtluuht7500165 2.160.1.082347.3.579.2.692031-65-6924Rzrtqbj0224572 2.16840.1.399942.3.579.2.889033-77-9574Vjzvche5855174 2.16840.1.242403.3.579.2.941092-07-7230Izfeyml0592717 2.16840.1.604207.3.579.2.385145-04-4014Gyejnjt1246714 2.16840.1.034082.3.579.2.424213-99-5093Nrejoex5939606 2.16.840.1.961957.3.579.2.933899-63-2735Efynurr1122580 2.16.840.1.333874.3.579.2.327958-08-4535Ymajcez32807127 2.16.840.1.680439.3.579.2.87110-92-0046Oxvvckm29592462 2.16.840.1.964975.3.579.2.92626-47-6566Jbsauvr91815905 2.16.840.1.289443.3.579.2.23609-38-3069Xshypma11776566 2.16840.1.077670.3.579.2.87332-61-6514Ulorjwd75166336 2.16840.1.110020.3.579.2.45553-91-8173Gqhvazv86237018 2.16.840.1.761866.3.579.2.50179-13-5285Ugylgmh07731754 2.16.840.1.389915.3.579.2.57245-71-4065Omygbnx71993062 2.16840.1.062281.3.579.2.21116-36-2702Pngqwah918987691 2.16.840.1.281126.3.579.2.958070-50-8117Xkzlqkh304094872 2.16.840.1.987053.3.579.2.121429-00-1301Qzbthoo50307616 2.16.840.1.151953.3.579.2.823053-89-8225Hpvxvqy241344418 2.16.840.1.525624.3.579.2.736694-17-7115Vbbgvun461158723 2.16.840.1.775929.3.579.2.405445-32-9958Himcvlq900852767 2.16.840.1.965000.3.579.2.617693-53-5121Tttutwq21430952 2.16.840.1.835969.3.579.2.35382-07-4844Dhhlzne24896062 2.16.840.1.699417.3.579.2.60191-64-0552Xckstvv39401131 2.16.840.1.534693.3.579.2.57938-76-4388Nvtkqdh80720000 2.16.840.1.638654.3.579.2.21845-10-4846Ewqvnay90046313 2.16.840.1.489961.3.579.2.70579-90-1694Vusuhvl93148903 2.16.840.1.789159.3.579.2.76928-32-3327Ecwkbtz53920973 2.16.840.1.041962.3.579.2.95834-66-3270Imqzbvi98056414 2.16.840.1.172713.3.579.2.80836-90-7632Bqagaio45467706 2.16.840.1.463191.3.579.2.74436-35-1500Vbuispo70636350 2.16.840.1.396556.3.579.2.65948-38-0255Xapmzrm22714296 2.16.840.1.354479.3.579.2.40378-23-8545Ayhreqd05829308 2.16.840.1.403765.3.579.2.71581-81-5595Edhwxkq36079154 2.16.840.1.966120.3.579.2.38441-61-0647Jomdjrn27525945 2.16.840.1.428141.3.579.2.92950-82-7381Vnqfspy613308039 2.16.840.1.961374.3.579.2.963114-44-2419Aiyzqwi217755396 2.16.840.1.012100.3.579.2.707632-42-7382Lvgzawd321536933 2.16840.1.346789.3.579.2.798200-92-5581Igxzhpp469253676 2.16840.1.917709.3.579.2.870889-81-7581Vhsnzlr179598932 2.16840.1.292366.3.579.2.859878-20-3521Qvbkcqr193525622 2.16840.1.534314.3.579.2.951174-02-7382Mrewggm102233069 2.16840.1.119421.3.579.2.965550-35-5860Odhrkqd102189757 2.840.1.912099.3.579.2.646533-73-8805Olvlybb907177353 2.16840.1.281283.3.579.2.921617-80-0402Zfbabqo954333334 2.16840.1.171475.3.579.2.341232-02-1739Cpzfdwf881331984 2.16.840.1.490217.3.579.2.890960-16-2106Forhxjm145265708 2.16840.1.975914.3.579.2.030691-21-8232Sjihhek521139459 2..840.1.474350.3.579.2.1286Medicare8VU8KY6UF20 2..840.1.759468.19Unknown [id number] 2..840.1.695360.3.579.2.550Uimvebs51835443 2.0.1.634289.3.579.2.531 Social History DateTypeDetailFacilityStart: 04[birth year]29-1977 End: 30-15-1619Pjpjgzd smoking status NHISSmokes tobacco dailyFirelands Regional Medical Center South Campus Start: 92-04-6972Manjyiu of tobacco useCigarette SmokerZanesville City Hospitaltart: 03-11-2022 End: 20-86-1256Atsfjyhfxk smoked current (pack per day) - Reported0.5Cmarymount hospital ClinicStart: 03-11-2022 End: 40-89-2435Ggvxtcy use and exposureFormer smokeless tobacco userZanesville City Hospitaltart: 03-11-2022 End: 13-81-3361Lhmfptc intakeCurrent drinker of alcohol (finding)[facility]: 81-76-5068Dlk Assigned At BirthNot on fileZanesville City Hospitaltart: 03-01-2022 End: 06-46-8623Bzdpbwry to SARS-CoV-2 (event)Not sureZanesville City Hospitaltart: 32-99-2823Wrmcvnd smoking statusHeavy tobacco smoker (finding)[facility] start: 06-18-2022 End: 41-41-0312Rmp Assigned At BirthMaleExec[facility] start: 05-17-2023 End: 35-94-8461Tzvpyrh smoking statusEx-smoker (finding)[facility] HospitalTobacco smoking statusNeverExecutive Urology of [facility] Hospitaltart: 37-31-2624Pwo Assigned At MaleMetroHealth Parma Medical Centertart: 63-73-5718Nlbyjrf smoking status NHISNever smoked tobaccoNOMS HealthcareStart: 71-34-4771Trejmgb use and exposure Smokeless tobacco non-userNOMS HealthcareStart: 06-15-2024 End: 46-66-7196Jkqmvlhwd beverage intakeLifetime non-drinker (finding)[facility] HealthcareStart: 07-04-2015 End: 64-05-7690NdePyim (finding)[facility] Centertart: 92-08-5994Zzzdhjh of tobacco useCurrent smokerProHighlands Medical Center Health SystemStart: 09-05-2024 End: 86-42-1497Mjsyxyezt beverage intakeEx-drinker (finding)[facility] Centeredic OQO SystemHas the Unity[employer], gas, oil, or water [employer] threatened to shut off services in your home in past 12MoNoProMedica Health SystemHistory of tobacco usePassive smokerProMedica Health System End: 29-46-9714Gihifiw of tobacco useChews TobaccoProMedica Health SystemAre you now , , , , never or living with a partner?Never marriedProMedica Health SystemHow often to you have a drink containing alcohol?NeverProMedica Health SystemHow hard is it for you to pay for the very basics like food, housing, medical care, and heatingNot very hard [facility] Health SystemDo you feel stress - tense, restless, nervous, or anxious, or unable to sleep at night because yourmind is troubled all the time - these days [OSQ]Not at allSelect Medical Specialty [facility], [facility] Health SystemStart: 19-96-1466Qanolxs CommentQuit 4 years ago.[facility] OQO SystemSexual OrientationExecutive Urology of [facility] Hospital Goals DatePatient GoalDesired Activity/StatePersonal health goalComment on above: Evaluation of progress towards goal: safe transition from hospital to home with family support.Personal health goalComment on above: Evaluation of progress towards goal: Patient denies home going needs.Personal health goalComment on above: Evaluation of progress towards goal: patient progressing toward safe discharge home.Personal health goalComment on above: Evaluation of progress towards goal: Patient will return home with self care Functional Status QlvzIxqrdynfcdOvjbwfCjxzhftn09-86-5928Xbnsmzpppx StatusNoUniversity [facility]02-17-2025Functional StatusN/AExec[facility]11-18-2024Functional StatusN/AExec[facility]04-19-2024Functional StatusN/A[facility]10-16-2023Functional StatusN/AExec[facility]08-14-2023Functional StatusN/A [facility]06-19-2023Functional StatusExecutive Urology of [facility]04-10-2023 Functional StatusN/AExec[facility] 85-60-5074Kanmlmzetn StatusN/AExec[facility]08-17-2022Functional StatusN/AExecutive [facility] of [facility] Molly Clinical Notes 03-11-2022 to 10-05-2025 Note Date & GoykMmaxXqeqfbrk63-39-8237 Miscellaneous Notes* Telephone Encounter - Amairani Guerra - 10/05/2025 8:44 AM EST ----- Message from JENNIFER Lacey sent at 10/04/2025 9:59 AM EST ----- Regarding: Bay FU Needs FU in [facility]/ Vestibular Clinic Dx: 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 Patient's voicemail box was full and could not accept any messages at the time. * Telephone Encounter - Samra Levi - 10/05/2025 8:44 AM EST Please ask the following questions to the new patient that you are schedulin. IS THIS DUE TO AN ACCIDENT? -no 2. IS THIS WORKER'S COMP? PLEASE VERIFY IF THIS IS WORKERS COMP AND DOCUMENT (We do not accept any new workers comp cases) -no 3. WHAT INSURANCE? -Aetna 4. HAVE YOU EVER BEEN SEEN BY A NEUROLOGIST BEFORE? IF YES, WHO AND WHEN? IS THIS A SECOND OPINION? -yes years ago 5. ANY CHANCE OF NOW OR BEFORE YOUR APPOINTMENT? -no 6. OFFERED FAINA FOR SOONER APPOINTMENT? -yes 7. PATIENT IS SCHEDULED ON/WITH: -Dr. Gross 01/29/26 8. 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 Patient's voicemail box was full and could not accept any messages at the time. [facility] OQO [id number] Telephone encounter Note* Telephone Encounter - Samra Levi - 10/05/2025 8:44 AM EST Please ask the following questions to the new patient that you are schedulin. IS THIS DUE TO AN ACCIDENT? -no 2. IS THIS WORKER'S COMP? PLEASE VERIFY IF THIS IS WORKERS COMP AND DOCUMENT (We do not accept any new workers comp cases) -no 3. WHAT INSURANCE? -Aetna 4. HAVE YOU EVER BEEN SEEN BY A NEUROLOGIST BEFORE? IF YES, WHO AND WHEN? IS THIS A SECOND OPINION? -yes years ago 5. ANY CHANCE OF NOW OR BEFORE YOUR APPOINTMENT? -no 6. OFFERED FAINA FOR SOONER APPOINTMENT? -yes 7. PATIENT IS SCHEDULED ON/WITH: -Dr. Gross 01/29/26 8. WHO CALLED TO SCHEDULE APPOintment patient sister [facility] OQO [id number] Miscellaneous Notes* Telephone Encounter - Marisol Vigil - 10/05/2025 8:36 AM EST ----- Message from JENNIFER Lacey sent at 10/04/2025 9:59 AM EST ----- Regarding: Susana CASTILLO Needs FU in Stroke clinic after 30 day cardiac event monitor Dx: High Right Cortical Embolic CVA. Can see FAINA, Leon Monzon or fellow * Telephone Encounter - Marisol Vigil - 10/05/2025 8:36 AM EST scheduled documented in [facility] encounterEast [facility] Telephone encounter Note* Telephone Encounter - Marisol Vigil - 10/05/2025 8:36 AM EST ----- Message from JENNIFER Lacey sent at 10/04/2025 9:59 AM EST ----- Regarding: Susana CASTILLO Needs FU in Stroke clinic after 30 day cardiac event monitor Dx: High Right Cortical Embolic CVA. Can see FAINA, Nicolás, Leon or fellow drchrono11-07-2025 Telephone encounter Note* Telephone Encounter - Marisol Vigil - 10/05/2025 8:36 AM EST scheduled drchrono10-20-2025 Hospital Discharge instructions Patient Education 09/17/2025 10:07:40 Urinary Incontinence Urinary Incontinence Urinary incontinence refers [...] (electrical nerve stimulation). ?For women, using a quality engineer medical device to prevent urine leaks. This is a [...] right after experiencing incontinence. General instructions Take pgcq-zju-btkvlhh and prescription medicines only as told by [...] important. Where to find more information National [place] of Diabetes and Digestive and Kidney Diseases: www.niddk.nih.gov Citizen [place] Urology Association: www.urologyhealth.org Contact a health care [...] provider. Document Revised: 06/20/2021 Document Reviewed: 06/20/2021 Hua Kang Patient Education 2023 [employer]. Follow Up Care 01/15/2025 12:30:13 With:PETRA OVIEDO, Leila Simpson, URL Address: [address] [place] [id number] When: Unknown Comments:3 mos w/ PVR [facility] 10-20-2025 NotePatient Education Urology Urinary Incontinence Urinary incontinence [...] nerve stimulation). ? For women, using a quality engineer medical device to prevent urine leaks. This is a [...] your health care provider (more content not included)...[facility] 08-13-2025 Hospital Discharge instructions Patient Education 08/13/2025 [...] greater thelikelihood that the cancer will spread. [place] 6 or lower: This indicates that the cancer cells look similar to normal prostate cells (well differentiated). [place] 7: This indicates that the cancer cells [...] stress of having cancer. General instructions Take rbgu-cjb-afewmei and prescription medicines only as told by your health care provider. If you have to go to the hospital, notify your cancer specialist (oncologist). Keep all follow-up visits. This is important. Where to find more information [place] Cancer Society: www.cancer.org Citizen [place] Society of Clinical Oncology: www.cancer.net National Cancer Rumsey: www.cancer.gov Contact a health care provider if: [...] provider. Document Revised: 02/11/2022 Document Reviewed: 02/11/2022 Hua Kang Patient Education 2023 [employer]. Follow Up Care 08/02/2025 14:09:11 With:PETRA OVIEDO, Leila Simpson, URL Address: [address] [place] [address] When: Unknown Comments:f/u already scheduled 09/17/25 Dony Segovia [facility] 09-15-2025 [facility] On[facility] Prostate Cancer The prostate is [...] under a microscope. This is called the [place] score and the total score can range from 6?10, indicating how likely it is that the cancer will spread (metastasize) to other parts of the body. The higher the score, the greater thelikelihood that the cancer will spread. ??? [place] 6 or lower: This indicates that the cancer cells look similar to normal prostate cells (well differentiated). ??? [place] 7: This indicates that the cancer cells look somewhat similar to normal prostate cells (moderately differentiated). ??? [place] 8, 9, or 10: This indicates that [...] needles, seeds, wires, o (more content not included)...[facility]08-21-2025 History of Present illness Narrative* Immanuel Cope MD - 07/19/2025 10:45 AM EDT Meredith Villatoro Date of visit: 07/19/2025 Date of : 1960 Age: 65 y.o. Patient Active Problem List Diagnosis BMI 40.0-44.9, adult ([facility]) Vertigo Acquired hammer toe of left foot Arthritis Benign prostatic hyperplasia with urinary obstruction Chronic pain Current every day smoker Difficulty walking Epididymitis Disorder of male genital organs Hypercholesterolemia Primary hypertension PAD (peripheral artery disease) Adenocarcinoma of prostate ([facility]) Dizziness Ischemic colitis BPH (benign prostatic hyperplasia) History of smoking Chest pain, unspecified type Chest pain Allergies Allergen Reactions Codeine-Guaifenesin Other reaction(s): COUGH / SNEEZING Current Outpatient Medications Medication Sig Dispense Refill amiodarone (PACERONE) 200 mg tablet Take 1 tablet (200 mg total) by mouth in the morning. 90 tablet1 aspirin 81 mg Take 1 tablet (81 [...] vein graft to OM1 March 02, 2025 developbrief postop atrial fibrillation was discharged on amiodarone 20 mg no anticoagulation, has historyof hypertension, high cholesterol, smoking history but quit [...] degenerative disc disease Hyperlipidemia Hypertension Prostate cancer ([facility]) Tubular adenoma Vertigo Visual impairment glasses No data recorded No data recorded No data recorded Past Surgical History: Procedure Laterality Date ARTHROSCOPY SHOULDER debridment of type 1 slap lesion , and subacromial decompression Left 05/20/2017 Performed by Jr Zainab Barber DO at [facility] Cardiac Invasive N/A 02/28/2025 Performed by Jimmie Espinoza MD at [facility] CARDIAC CATH LABS CHOLECYSTECTOMY COLON SURGERY 03/14/2013 Low Anterior Colon Resection- Dr. De Leon & Dr. Almaguer COLONOSCOPY N/A 08/05/2017 Performed by Edgar De Leon MD at [facility] COLONOSCOPY DIAGNOSTIC / SCREENING N/A 09/11/2024 Performed by Tracy Almaguer DO at [facility] Coronary angiogram and left ventricular gram/pressure N/A 02/28/2025 Performed by Jimmie Espinoza MD at [facility] CARDIAC CATH LABS CORONARY ARTERY BYPASS GRAFT X2 , MAYBERRY, SVG X 1 ,EVH LEFT UPPER LEG LAI, N/A 03/02/2025 Performed by Claribel Pace MD at [facility] FOOT SURGERY Left 11/2024 PROSTATE SURGERY [...] min Stress: No Stress Concern Present (02/24/2025) [employer] Rumsey of Occupational Health - Occupational Stress Questionnaire Feeling of Stress : Not at all Social Connections: Socially Isolated (02/24/2025) Social Connection and Isolation Panel [NHANES] Frequency of Communication with Friends and Family: Three times a week Frequency of Social Gatherings with Friends and Family: Three times a week Attends Religion Services: Never Active Member of Clubs or [...] in about 6 months (around 01/19/2026). PCP: [facility] Susana Referring Physician: No referring provider defined for this encounter. documented in [facility]08-[facility] Miscellaneous Notes* Telephone Encounter - Mallika Anderson CMA - 07/18/2025 2:45 PM EDT Called patient to remind them to bring their most current copy of their medication list with them to their appt. Patient verbalizes understanding. documented in this encounterEast [facility]08-20-2025 Telephone encounter Note* Telephone Encounter - Mallika Anderson CMA - 07/18/2025 2:45 PM EDT Called patient to remind them to bring their most current copy of their medication list with them to their appt. Patient verbalizes understanding. [facility] Miscellaneous Notes* Telephone Encounter - Ignacia Abdul RN - 06/20/2025 1:54 PM EDT Last OV 03/15/25 Last CMP 06/14/25 Last EKG 06/14/25 Last CXR 06/14/25.slm [facility] OQO [id number] Telephone encounter Note* Telephone Encounter - Ignacia Abdul RN - 06/20/2025 1:54 PM EDT Last OV 03/15/25 Last CMP 06/14/25 Last EKG 06/14/25 Last CXR 06/14/25.slm [facility] [id number] History of Present illness Narrative* Ethel Cowan RN - 04/11/2025 1:30 PM EDT Radiology Service Progress Note DATE OF SERVICE: [...] DATE: April 11, 2025 TIME: 1:19 PM * Yanira Winston RT(R) - 04/11/2025 1:30 PM EDT RADIOLOGY SERVICE PROGRESS NOTE SERVICE DATE: 04/11/2025 SERVICE TIME: 1:23 PM PATIENT IDENTITY VERIFICATION COMPLETED USING TWO (2) STANDARD IDENTIFIERS: Name and Date of confirmed by patient verbally POST EXAM PIV STATUS: Discontinued PROCEDURE TYPE: NM INJECT: PET/CT BODY SCAN. 9.6 mCi [id number]. Administered By: . No other medications given.. ADMINISTRATION TIME: 1318 PATIENT DISCHARGED TO: Ambulatory patient, left [place] department area. Is this a therapy: No A Diagnostic radioactive procedure has taken place, with no further precautions necessary other than routine body substance precautions. More information regarding radiation safety can be found usingthis link: [email or web address] 20Diagnostic%20Nuclear%20Medicine%20Procedures.pdf SIGNATURE: RT Amanda(R) PATIENT NAME: Meredith Villatoro DATE: April 11, 2025 TIME: 1:23 PM PAGER/CONTACT #: documented in this encounterFirelands [facility]05-14-2025 NoteHNO ID: [id number] Author: ETHEL COWAN RN Service: ? Author Type: Registered Nurse [...] Villatoro DATE: April 11, 2025 TIME: 1:19 [facility]05-14-2025 NoteHNO ID: [id number] Author: YANIRA WINSTON RT(R) Service: ? Author Type: Technologist Type: Progress Notes Filed: 04/11/2025 13:23 Note Text: RADIOLOGY SERVICE PROGRESS NOTE SERVICE DATE: 04/11/2025 SERVICE TIME: 1:23 PM PATIENT IDENTITY VERIFICATION COMPLETED USING TWO (2) STANDARD IDENTIFIERS: Name and Date of confirmed by patient verbally POST EXAM PIV STATUS: Discontinued PROCEDURE TYPE: NM INJECT: PET/CT BODY SCAN. 9.6 mCi [id number]. Administered By: . No other medications given.. ADMINISTRATION TIME: 1318 PATIENT DISCHARGED TO: Ambulatory patient, left [place] department area. Is this a therapy: No A Diagnostic radioactive procedure has taken place, with no further precautions necessary other than routine body substance precautions. More information regarding radiation safety can be found using this link: [email or web address] 20Diagnostic%20Nuclear%20Medicine%20Procedures.pdf SIGNATURE: RT Amanda(R) PATIENT NAME: Meredith Villatoro DATE: April 11, 2025 TIME: 1:23 PM PAGER/CONTACT #:[facility]05-13-2025 Miscellaneous Notes* Telephone Encounter - Kaleigh Bearden RN - 04/10/2025 12:36 PM EDT OV 03/15/25 03/07/25 CBC documented in this encounterEast [facility] Hospital05-13-2025 Telephone encounter Note* Telephone Encounter - Kaleigh Bearden RN - 04/10/2025 12:36 PM EDT OV 03/15/25 03/07/25 CBC [facility]05-13-2025 Miscellaneous Notes* Telephone Encounter - Kaleigh Bearden RN - 04/10/2025 11:23 AM EDT P/c from pt to report concerning chest [...] ER; pt states he will go to [facility] ER now. Pt l/s MBO 03/15/25. * Telephone Encounter - Kaleigh Bearden RN - 04/10/2025 11:23 AM EDT Pt went to ER. documented in this encounterEast [facility] Hospital05-13-2025 Telephone encounter Note* Telephone Encounter - Kaleigh Bearden RN - 04/10/2025 11:23 AM EDT P/c from pt to report concerning chest [...] ER; pt states he will go to [facility] ER now. Pt l/s MBO 03/15/25. [employer] [id number] Telephone encounter Note* Telephone Encounter - Kaleigh Bearden RN - 04/10/2025 11:23 AM EDT Pt went to ER. [employer] [id number] Telephone encounter Note* Telephone Encounter - Kalie Marks RN - 04/03/2025 8:22 AM EDT PSMA Comments for Lens And Frames Prescription Clerk: Molly Birmingham the patient need anesthesia: NO Primary Insurance: Aetna 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 grade group 5 4+5= 9 Labs: 01-10-25 PSA 0.5 10-03-24 PSA 0.6 03-17-24 PSA 0.2 Clinical Notes Reviewed: 03-26-25 [facility] Date of last: na Additional Information/Imaging: N/A Is this the first PSMA PET:Yes (Please schedule as requested by patient or office) Positive Scan Schedule as place of last (DOS) or Region Negative Scan Schedule at ANY PSMA site requested Isotope used: Region F-18 flotufolastat,18F flotufolastat Posluma MC GA68 PSMA PET 56069/LOCAMETZ (Gallium GA-68 Gozetotide) (6 mCi) A9800 - MC [place]uma (Flotufolastat F18) (8mCi), A9608 - Region Auth#: [id number] Date Range: 03-01-25 to 08-28-25 for 1 dos MD NPI: Leila Lambert Member ID: [employer] Site/Contact: Case/Ref#: Notes: auths canned into epic Route to or Requested Scheduling Pool: P PET DISPLAY DECORATOR MC, P OCS CLERICAL POOL(Mccoll), P MOLLY INNOVATION ANALYST [facility]05-06-2025 Miscellaneous Notes* Telephone Encounter - Kalie Marks RN - 04/03/2025 8:22 AM EDT PSMA Comments for Lens And Frames Prescription Clerk: Molly Birmingham the patient need anesthesia: NO Primary Insurance: [facility] 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 grade group 5 4+5= 9 Labs: 01-10-25 PSA 0.5 10-03-24 PSA 0.6 03-17-24 PSA 0.2 Clinical Notes Reviewed: 03-26-25 [facility] Date of last: na Additional Information/Imaging: N/A Is this the first PSMA PET:Yes (Please schedule as requested by patient or office) Positive Scan Schedule as place of last (DOS) or Region Negative Scan Schedule at ANY PSMA site requested Isotope used: Region F-18 flotufolastat,18F flotufolastat Posluma GA68 PSMA PET 30174/LOCAMETZ (Gallium GA-68 Gozetotide) (6 mCi) A9800 - [place] (Flotufolastat F18) (8mCi), A9608 - Region Auth#: [id number] Date Range: 03-01-25 to 08-28-25 for 1 dos MD NPI: Leila Lambert Member ID: [employer] Site/Contact: Case/Ref#: Notes: auths canned into epic Route to or Requested Scheduling Pool: P PET DISPLAY DECORATOR MC, P OCS CLERICAL POOL(Mccoll), P MOLLY INNOVATION ANALYST * Telephone Encounter - Akiko White - 04/02/2025 3:02 PM EDT This form is used for MAIN CAMPUS APPOINTMENTS ONLY. Is this request for a Main [place] PET scan appointment? 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 Other Contact: PSMA PET May Winston [phone] Leila Lambert Area Code [phone] + Phone/Pager: [phone] PET Orders (A delay in scheduling will [...] to be done at time of PET scan?No Is the request for a PET MR ? No What account will diagnostic testing appointment be linked to? P/F Will the patient need anesthesia? NO Send requests to P [facility] MC documented in this encounterFirelands [facility]05-05-2025 Telephone encounter Note * Telephone Encounter - Akiko White - 04/02/2025 3:02 PM EDT This form is used for MAIN CAMPUS APPOINTMENTS ONLY. Is this request for a Main [place] PET scan appointment? 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 Other Contact: PSMA PET May Winston [phone] Leila Lambert Area Code [phone] + Phone/Pager: [phone] PET Orders (A delay in scheduling will [...] to be done at time of PET scan?No Is the request for a PET MR ? No What account will diagnostic testing appointment be linked to? P/F Will the patient need anesthesia? NO Send requests to [facility]04-28-2025 NotePatient Education Oncology Hormone Suppression Therapy for Prostate [...] suppression therapy is having additional treatment options. Youmay have only one type of treatment, or two or more types at the same time. Treatments may be combined to: ??? Help with side effects. ??? Treat advanced cancer. Where to find more information ??? Citizen Of [place] Cancer Society: www.cancer.org ??? National Cancer Rumsey: www.cancer.gov Contact a health care provider if: [...] are confused. ??? You (more content not included)...[facility]04-24-2025 Miscellaneous Notes* Telephone Encounter - Ignacia Abdul RN - 03/22/2025 3:42 PM EDT Last OV 03/15/25 Last BMP,CBC Mg 03/06/25 Lipid 02/25/25 Last CXR 03/05/25 Last EKG 03/05/25.slm * Telephone Encounter - LEO Manning - 03/22/2025 3:42 PM EDT Looks like amiodarone should only be for 3 months postop. Will not give refills. documented in this encounterEast [facility] Hospital04-24-2025 Telephone encounter Note* Telephone Encounter - Ignacia Abdul RN - 03/22/2025 3:42 PM EDT Last OV 03/15/25 Last BMP,CBC Mg 03/06/25 Lipid 02/25/25 Last CXR 03/05/25 Last EKG 03/05/25.slm [facility]04-24-2025 Telephone encounter Note* Telephone Encounter - LEO Manning - 03/22/2025 3:42 PM EDT Looks like amiodarone should only be for 3 months postop. Will not give refills. [facility] OQO [id number] History of Present illness Narrative* James Posada MD - 03/15/2025 2:00 PM EDT Meredith Villatoro Date of visit: 03/15/2025 Date of : 1960 Age: 64 y.o. Patient Active Problem List Diagnosis BMI 40.0-44.9, adult (CMS-HCC) Vertigo Acquired hammer toe of left foot Arthritis Benign prostatic hyperplasia with urinary obstruction Chronic pain Current every day smoker Difficulty walking Epididymitis Disorder of male genital organs Hypercholesterolemia Primary hypertension PAD (peripheral artery disease) Adenocarcinoma of prostate (CMS-HCC) Dizziness Ischemic colitis BPH (benign prostatic hyperplasia) [...] total) by mouth in the morning. 60 tablet0 aspirin 81 mg Take 1 tablet (81 [...] degenerative disc disease Hyperlipidemia Hypertension Prostate cancer ([facility]) Tubular adenoma Vertigo Visual impairment glasses No data recorded No data recorded No data recorded Past Surgical History: Procedure Laterality Date ARTHROSCOPY SHOULDER debridment of type 1 slap lesion , and subacromial decompression Left 05/20/2017 Performed by Jr Zainab Barber DO at [facility] Cardiac Invasive N/A 02/28/2025 Performed by Jimmie Espinoza MD at [facility] CARDIAC CATH LABS CHOLECYSTECTOMY COLON SURGERY 03/14/2013 Low Anterior Colon Resection- Dr. De Leon & Dr. Almaguer COLONOSCOPY N/A 08/05/2017 Performed by Edgar De Leon MD at [facility] COLONOSCOPY DIAGNOSTIC / SCREENING N/A 09/11/2024 Performed by Tracy Almaguer DO at [facility] Coronary angiogram and left ventricular gram/pressure N/A 02/28/2025 Performed by Jimmie Espinoza MD at [facility] CARDIAC CATH LABS CORONARY ARTERY BYPASS GRAFT X2 , MAYBERRY, SVG X 1 ,EVH LEFT UPPER LEG LAI, N/A 03/02/2025 Performed by Claribel Pace MD at [facility] FOOT SURGERY Left 11/2024 PROSTATE SURGERY [...] min Stress: No Stress Concern Present (02/24/2025) [employer] Rumsey of Occupational Health - Occupational Stress Questionnaire Feeling of Stress : Not at all Social Connections: Socially Isolated (02/24/2025) Social Connection and Isolation Panel [NHANES] Frequency of Communication with Friends and Family: Three times a week Frequency of Social Gatherings with Friends and Family: Three times a week Attends Religion Services: Never Active Member of Clubs or [...] tablet; Refill: 0 2. Postoperative atrial fibrillation (CMS-HCC) - amiodarone (PACERONE) 200 mg tablet; Take [...] the soft side, he is well compensated hisstill has trace bilateral lower extremity edema, instructed [...] TODAYS ORDERS Orders Placed This Encounter Procedures [facility] FOLLOW UP Return in about 3 months (around 06/14/2025). PCP: [facility] Susana Referring Physician: No referring provider defined for this encounter. documented in this encounterEast [facility] Regional Hospital04-16-2025 History of Present illness Narrative* Fadi Avelar, TOLL MECHANIC-KILN TENDER - 03/14/2025 1:00 PM EDT Images from the original note were not included. Outpatient Follow-Up Note Date of Visit: 03/14/2025 PCP: [facility] Susana Summary of Admission I had the pleasure today of seeing Meredith Franklin Gloria in the office, in conjunction with, Dr. Pace, following their recent x2 with left internal thoracic artery to mid left anterior descending, greater saphenous vein graft from aorta to the 1st obtuse marginal performed on March 02 at [facility]. As you recall, Meredith Villatoro is a [...] positive family history and remote tobacco dependence hedenies diabetes. Dr. Pace has been consulted for [...] exquisitely painful requiring both IV and p.o. analgesics.Mediastinal chest tubes were weaned to water seal and subsequently discontinued. Left pleural chesttube remained to water-seal. He was in a [...] clear yellow urine. Patient's home urologist in [place] was contacted, he was cleared for void trials. He was slowly able mobilize in the hallway. PT OT evaluated patient and were recommending SNF at discharge. The patient does have a supportive at home including his 90-year-old mother. Patient was declining fci facility and wished to be discharged home. He then developedatrial fibrillation with RVR, he was started on IV amiodarone. He was hypotensive, 5 % albumin 12.5g was given, patient remained hypotensive, midodrine 5 [...] patient was euvolemic at the time of discharge.He has passed his void trials although he remained incontinent. He will follow up with Urology outpatient. He was mobilizing well with cardiac rehab this morning, he was in a normal sinus rhythm and h emodynamically stable. His bowels have moved his appetite is improving. Pain control is adequate atthis time. He was discharged home in stable condition. He presents to the office for postoperative evaluation. Upon presentation, he has very few complaints. He states he is eating well resting well his pain is well controlled. His energy level continuesto improve he has been ambulating multiple times [...] degenerative disc disease Hyperlipidemia Hypertension Prostate cancer ([facility]) Tubular adenoma Vertigo Visual impairment glasses Allergies [...] kg (217 lb) SpO2 98% BMI 38.44 kg/m@PATIENTWT@ General appearance: Alert and Oriented, Resting Comfortably, [...] care. Allen 03/14/25 1323 documented in this encounterEast [facility] Regional Hospital04-16-2025 Instructions* Patient Instructions* LEO Allen - 03/14/2025 1:00 PM EDT 1. Please continue to wear Heart Hugger for a total of 5 weeks from the date of surgery 2. Please continue to observe a less than 10 pound lifting restriction for a total of 6 weeks from the date of surgery 3. Please follow up with your medical doctors including your shop worker and primary care physician 4. Please plan to participate in phase 2 cardiac rehabilitation after following up with your shop worker No further follow-up with our office but please do not hesitate to call with any questions or concerns about your recent surgery documented in this encounterEast Ohio Regional Hospital04-16-2025 Miscellaneous Notes* Telephone Encounter - Jeri Bales CMA - 03/14/2025 10:06 AM EDT Called patient to remind them to bring their most current copy of their medication list with them to their appt. Patient verbalizes understanding. documented in this [facility]04-16-2025 Telephone encounter Note* Telephone Encounter - Jeri Bales CMA - 03/14/2025 10:06 AM EDT Called patient to remind them to bring their most current copy of their medication list with them to their appt. Patient verbalizes understanding. [facility] [employer]O [id number] Miscellaneous Notes* Telephone Encounter - Millie Amaro - 03/05/2025 8:18 PM EDT Contract: [phone] [facility] Emerald re orders * Telephone Encounter - Millie Amaro - 03/05/2025 8:18 PM EDT oc121 numerically paged Fede to Emerald at [facility] documented in this [facility]04-07-2025 Telephone encounter Note* Telephone Encounter - Millie Amaro - 03/05/2025 8:18 PM EDT Contract: [phone] [facility] Emerald re orders [facility]04-07-2025 Telephone encounter Note* Telephone Encounter - Millierebecca Amaro - 03/05/2025 8:18 PM EDT oc121 numerically paged Fede to Emerald at [facility]04-06-2025 Miscellaneous Notes* Telephone Encounter - Millie Amaro - 03/04/2025 7:34 PM EDT Contract: BUZZ [phone] [facility] Emerald re Low blood pressure; Rm [id number] * Telephone Encounter - Millie Amaro - 03/04/2025 7:34 PM EDT ppcrd message was sent to Kim via secure chat documented in this encounterEast [facility] Hospital04-06-2025 Telephone encounter Note* Telephone Encounter - Millie Amaro - 03/04/2025 7:34 PM EDT Contract: BUZZ [phone] [facility] Emerald re Low blood pressure; Rm [id number] [facility]04-06-2025 Telephone encounter Note* Telephone Encounter - Millie Amaro - 03/04/2025 7:34 PM EDT ppcrd message was sent to Kim via secure chat [facility]04-05-2025 Miscellaneous Notes* Telephone Encounter - Germania Hilton - 03/03/2025 2:09 PM EDT Contract: BUZZ Wheeler @ [facility] is calling regarding Acute NH * Telephone Encounter - Germania Hilton - 03/03/2025 2:09 PM EDT Grain Cleaner And Transfer Operator contacted SARAH Ho via secure chat advised to reach out to the facility documented in this encounterEast [facility] Hospital04-05-2025 Telephone encounter Note* Telephone Encounter - Germaniakam Hilton - 03/03/2025 2:09 PM EDT Contract: BUZZ Summer @ [facility] is calling regarding Acute NH [facility]04-05-2025 Telephone encounter Note* Telephone Encounter - Germania Yobani - 03/03/2025 2:09 PM EDT Grain Cleaner And Transfer Operator contacted SARAH Ho via secure chat advised to reach out to the facility [facility]03-25-2025 NotePatient Education Urology Dysuria Dysuria is pain or [...] these instructions at home: Medicines ??? Take dbwc-src-[id number] and prescription medicines only as told by your health care provider. ??? If you were prescribed an antibiotic medicine, take it as told by your health care provider. Donot stop taking the antibiotic even if you [...] provider. Document Revised: 06/27/2021 Document Reviewed: 06/27/2021 [employer] Patient Education ? 2023 [place].[facility] 02-06-2025 Hospital Discharge instructions Patient Education 02/06/2025 [...] to the nearest emergency room or call 1 Diet you may resume your normal diet. Activity you may resume your normal activities Call if you have a fever over 100 degrees. Follow Up Care 01/16/2025 08:30:41 With:Leila LAMBERT Address: [address] [place] [address] Business (1) When: Unknown Comments:Office will call to schedule follow up [facility] 03-11-2025 Evaluation + Plan noteExtracted from:Title: Urology Progress NoteAuthor:Leila LAMBERT MD RDate:02/06/25 Impression and Plan Impression: #1. This gentleman's erratic urination seems to be caused by his new tumor growth within the prostatic urethra. Plan: #1. He is getting scheduled for cystoscopy and transurethral resection of prostate tumor under anesthesia. Future Appointments Appointment Date:03/01/2025 11:00:00 AM Scheduled Provider: Location:[facility] Appointment Type:URO Nurse Visit Appointment Date:03/05/2025 11:30:00 AM Scheduled Provider:Le[facility]AMBERT MD [facility]:URO Office Visit Appointment Date:07/02/2025 10:00:00 AM Scheduled Provider: Location:[facility] Appointment Type:URO Nurse Visit Appointment Date:07/23/2025 10:15:00 AM Scheduled Provider:Leila LAMBERT MD [facility] Type[facility]O Office Visit [facility] 03-11-2025 NoteProgress Note-Physician Patient: MEREDITH VILLATORO Age: 64 [...] list: All Problems Arthritis / SNOMED CT 4360885 / Confirmed Hypertension / SNOMED CT 9402903394 / Confirmed High cholesterol / SNOMED CT 74881761 / Confirmed Bilateral hydrocele / SNOMED CT 0392826519 / Confirmed Prostate nodule / SNOMED CT 4613021237 / Confirmed BPH with obstruction/lower urinary tract symptoms / SNOMED CT 3573991005 / Confirmed Prostate cancer / SNOMED CT 1764516845 / Confirmed Epididymitis / SNOMED CT 75522553 / Confirmed Dysuria / SNOMED CT 79063513 / Confirmed Nocturia / SNOMED CT 994028222 / Confirmed Urge incontinence / SNOMED CT 583023455 / Confirmed Feeling of incomplete bladder emptying / SNOMED CT 053837257 / Confirmed Prostatitis / SNOMED CT 90927548 / Confirmed Gross hematuria / SNOMED CT 270139493 / Confirmed History of prostatitis / SNOMED CT 2124535293 / Confirmed Rising PSA following treatment for malignant neoplasm of prostate / SNOMED CT 0355069043 / Confirmed Histories Past Medical History: No active or resolved past medical history items have been selected or recorded. Family History: Hypertension Mother Procedure history: Brachytherapy ([id number]) on 05/21/2022 at 61 Years. MRI-US fusion guided transrectal biopsy of prostate ([id number]) on 02/05/2022 at 61 Years. MRI of prostate ([id number]) on 01/08/2022 at 61 Years. Colonoscopy ([id number]). Social History Social & Psychosocial Habits Tobacco [...] and transurethral resection of prostate tumor under anesthesia.[facility] CenterComment on above: Result Comment: Electronically Signed By: PETRA OVIEDO, Leila Mitchell\Date and Time Signed: 02/06/25 13:50 [id number] NotePatient Education Custom Cystoscopy ??? Voiding after [...] if you have a fever over 100 degrees.[facility] 01-23-2025 NoteHNO ID: [id number] Author: SHARON OCAMPO RN Service: ? Author Type: Registered Nurse Type: Progress Notes Filed: 01/30/2025 09:41 Note Text: AUA= 20[facility]02-25-2025 History of Present illness Narrative * [...] ASSESSMENT/PLAN: Prostate adenocarcinoma, initial PSA 2.0, biopsy [place] score 4 + 4 = 8 (grade [...] by: Jhony Lux MD documented in this encounterFirelands Regional Medical Center South Campus02-25-2025 NoteHNO ID: [id number] Author: Jhony LUX MD Service: ? Author [...] as already arranged. Signed by: Jhony Lux, [facility]02-18-2025 History of Present illness Narrative* Kerri Shah, TOLL MECHANIC-KILN TENDER - 01/16/2025 2:30 PM EST Images from [...] last colonoscopy was August [address] Almaguer significant for 2 benign polyps. Biopsies were negative for colitis. He is asking about getting refill on dicyclomine. He has taken this in the past, however, has not seen GI doc in Person in awhile to get refills. He has [...] Performed by Jr Zainab Barber DO at [facility] CHOLECYSTECTOMY COLON SURGERY 03/14/2013 Low Anterior Colon Resection- Dr. De Leon & Dr. Almaguer COLONOSCOPY N/A 08/05/2017 Performed by Edgar De Leon MD at [facility] COLONOSCOPY DIAGNOSTIC / SCREENING N/A 09/11/2024 Performed by Tracy Almaguer DO at [facility] FOOT SURGERY Left 11/2024 PROSTATE SURGERY [...] patient/family/caregiver Referring and communicating with other health urgent care Gastroenteritis and colitis, viral [A08.4] LEO BERNAL [facility] [place] This note was created with the assistance of a speech recognition program. While intending to generate a timely document that accurately reflects the content of the visit, no guarantee can be provided that every grammatical or spelling mistake has been or will be identified or corrected. Thank you for your understanding. LEO Bernal 01/16/25 1514 documented in this encounterEast [facility] Hospital Discharge instructions Patient Education 01/15/2025 [...] (electrical nerve stimulation). ?For women, using a quality engineer medical device to prevent urine leaks. This is a [...] right after experiencing incontinence. General instructions Take dpiq-jdl-thbbtbo and prescription medicines only as told by [...] important. Where to find more information National Rumsey of Diabetes and Digestive and Kidney Diseases: www.niddk.nih.gov Citizen Of [place] Urology Association: www.urologyhealth.org Contact a health care [...] provider. Document Revised: 06/20/2021 Document Reviewed: 06/20/2021 [employer] Patient Education 2023 [employer]. 01/15/2025 12:23:58 Cystoscopy Cystoscopy Cystoscopy is a [...] including vitamins, herbs, eye drops, creams, and lnyn-fgd-yvobwzr medicines. Any problems you or family members [...] provider tells you to take them. Taking lapm-jpt-pkdrnfn medicines, vitamins, herbs, and supplements. Tests You [...] Follow these instructions at home: Medicines Take yezp-ssn-ustsphk and prescription medicines only as told by [...] provider. Document Revised: 07/29/2022 Document Reviewed: 06/27/2021 Hua Kang Patient Education 2023 [employer]. Follow Up Care 10/16/2024 13:01:02 With:PETRA OVIEDO, Leila Simpson, URL Address: [facility] [address] [place] [address]- [phone] When: Unknown [facility] 02-17-2025 NotePatient Education Urology Urinary Incontinence [...] nerve stimulation). ? For women, using a quality engineer medical device to prevent urine leaks. This is a [...] your health care provider (more content not included)...[facility] 10-16-2024 Hospital Discharge instructions Patient Education 10/16/2024 [...] stress of having cancer. General instructions Take ucdl-tvp-qnjbsin and prescription medicines only as told by your health care provider. If you have to go to the hospital, notify your cancer specialist (oncologist). Keep all follow-up visits. This is important. Where to find more information [place] Cancer Society: www.cancer.org Citizen [place] Society of Clinical Oncology: www.cancer.net National Cancer Rumsey: www.cancer.gov Contact a health care provider if: [...] provider. Document Revised: 02/11/2022 Document Reviewed: 02/11/2022 Hua Kang Patient Education 2023 [employer]. Follow Up Care 03/17/2024 12:32:12 With:PETRA OVIEDO, Leila Simpson, URL Address: [facility] [address] [place] [address] [phone] When: Unknown Comments:3 mos w/ PSA and Lupron [facility]24 NotePatient Education Oncology Prostate Cancer The [...] to normal prostate cells (well differentiated). ??? [place] 7: This indicates that the cancer cells look somewhat similar to normal prostate cells (moderately differentiated). ??? [place] 8, 9, or 10: This indicates that [...] needles, seeds, wires, o (more content not included)...[facility]11-[facility] History of Present illness Narrative* Melo Reilly DPM - 10/10/2024 9:00 AM EST Images [...] understanding. Melo Reilly DPM documented in this encounterCox Walnut [id number] History of Present illness Narrative* Kerri Benitez [...] joint and anankle scope by a different forensic social worker to remove some of the excess bone [...] understanding. Kerri Benitez DPM documented in this encounterCox Walnut [id number] Miscellaneous Notes* Telephone Encounter - Willie Jason CMA - 09/15/2024 1:48 PM EDT ----- Message from Dr. Tracy Almaguer DO sent at 09/15/2024 7:21 AM EDT [...] PM EDT ----- Message from Dr. Tracy Almaguer, sent at 09/15/2024 7:21 AM EDT ----- Please call pt. And let him know that polyps are benign and that colon biopsies were negative for colitis.He need surveillance colon scope in 5 years unless problems. ThanksDr. Martinez [facility] OQO [id number] Telephone encounter Note* Telephone Encounter - Willie Jason CMA - 09/15/2024 1:48 PM EDT Spoke with patient regarding pathology results. Patient verbally understood with no further questions. Recall to be put in chart. [facility] OQO [id number] Miscellaneous Notes* Perioperative Nursing Note - Odalys Taylor RN - 09/05/2024 2:50 PM EDT Preoperative Education Checklist- General Surgery date: 09/11/24 Surgery time: 1130 Arrival time: 0930 1. Bring a photo ID and your insurance card with you the day of surgery. You will check in at the main lobby of the [facility]- registration desk is straight ahead as soon as you walk in. Tell them you are here for surgery. 2. If you have a Living Will/Durable Power of Capacity Planning Manager for Health Care that is not on [...] after you have bathed. 5. NO nail italian/acrylic on at least one finger. If you are having a hand, wrist or foot surgery then all nail italian and artificial/acrylic nails must be removed from [...] WITH YOU ANY DEVICES YOU MAY NEED: NUHA hose, ice machine, sling/swath, brace or special [...] please call the Preadmission Testing office at [phone], Mon.-Fri. 7 a.m.-3 p.m. Leave a voicemail [...] days prior to procedure documented in this encounterOhioHealth Pickerington Methodist HospitalStackdriver Mclaren Northern [id number] Nurse Note* Perioperative Nursing Note - Odalys Taylor RN - 09/05/2024 2:50 PM EDT Preoperative Education Checklist- General Surgery date: 09/11/24 Surgery time: 1130 Arrival time: 0930 1. Bring a photo ID and your insurance card with you the day of surgery. You will check in at the main lobby of the [facility]- registration desk is straight ahead as soon as you walk in. Tell them you are here for surgery. 2. If you have a Living Will/Durable Power of Capacity Planning Manager for Health Care that is not on [...] after you have bathed. 5. NO nail italian/acrylic on at least one finger. If you are having a hand, wrist or foot surgery then all nail italian and artificial/acrylic nails must be removed from [...] WITH YOU ANY DEVICES YOU MAY NEED: NUHA hose, ice machine, sling/swath, brace or special [...] please call the Preadmission Testing office at [phone], Mon.-Fri. 7 a.m.-3 p.m. Leave a voicemail [...] Stop taking 0 days prior to procedure [facility] OQO [id number] Telephone encounter Note* Telephone Encounter - Cindy Maxwell - 08/24/2024 1:45 PM EDT [facility] but they do need a wet signature before we send again. I will set on your desk. [facility] [id number] Miscellaneous Notes* Telephone Encounter - Cindy Maxwell - 08/24/2024 1:45 PM EDT We had to fax over office notes to Jeni, but they do need a wet signature before we send again. I will set on your desk. documented in this encounterNOMS [id number] History of Present illness Narrative* Kerri Shah, TOLL MECHANIC-KILN TENDER - 08/23/2024 11:30 AM EDT Images from [...] resection by Dr. De Leon and Dr. Almaguer in 2012 though he does not recall [...] degenerative disc disease Hyperlipidemia Hypertension Prostate cancer ([facility]) Tubular adenoma Vertigo Visual impairment glasses Past Surgical History: Procedure Laterality Date ARTHROSCOPY SHOULDER debridment of type 1 slap lesion , and subacromial decompression Left 05/20/2017 Performed by Jr Zainab Barber DO at [facility] CHOLECYSTECTOMY COLON SURGERY 03/14/2013 Low Anterior Colon Resection- Dr. De Leon & Dr. Almaguer COLONOSCOPY N/A 08/05/2017 Performed by Edgar De Leon MD at [facility] PROSTATE SURGERY hx prostate cancer with [...] patient/family/caregiver Referring and communicating with other health urgent care Diarrhea, unspecified type [R19.7] LEO BERNAL [facility] [place] This note was created with the assistance [...] and an ankle scope by a different forensic social worker to remove some of the excess bone [...] symptoms and therefore a custom, rigid AFO ([place] brace or [place]) brace is recommended. RX for Personnel Scheduler and Leimkuehlers given to the pt, as [...] understanding. Kerri Benitez DPM documented in this encounterCox Walnut [id number] Hospital Discharge instructions Patient Education 03/17/2024 12:20:18 [...] under a microscope. This is called the [place] score and the total score can range from 6 10, indicating how likely it is that the cancer will spread (metastasize) to other parts of the body. The higher the score, the greater thelikelihood that the cancer will spread. Indianapolis 6 or lower: This indicates that the cancer cells look similar to normal prostate cells (well differentiated). [place] 7: This indicates that the cancer cells look somewhat similar to normal prostate cells (moderately differentiated). [place] 8, 9, or 10: This indicates that [...] stress of having cancer. General instructions Take nmhc-gln-akpxwzl and prescription medicines only as told by your health care provider. If you have to go to the hospital, notify your cancer specialist (oncologist). Keep all follow-up visits. This is important. Where to find more information Citizen [place] Cancer Society: www.cancer.org Citizen [place] Society of Clinical Oncology: www.cancer.net National Cancer Rumsey: www.cancer.gov Contact a health care provider if: [...] provider. Document Revised: 02/11/2022 Document Reviewed: 02/11/2022 Hua Kang Patient Education 2022 [employer]. Follow Up Care 09/13/2023 15:56:01 With:PETRA OVIEDO, Leila Simpson, URL Address: [address] [place] [address]- When: Unknown [facility] 02-06-2024 History of Present illness Narrative* [...] ASSESSMENT/PLAN: Prostate adenocarcinoma, initial PSA 2.0, biopsy Indianapolis score 4 + 4 = 8 (grade [...] ASSESSMENT/PLAN: Prostate adenocarcinoma, initial PSA 2.0, biopsy [place] score 4 + 4 = 8 (grade [...] by: Jhony Lux MD documented in this encounterFirelands Regional Medical Center South Campus02-06-2024 Nurse Note* Sharon Ocampo LPN - 01/04/2024 2:15 PM EST AUA= 13 Clinical questionnaires incomplete due to Patient declined to complete or answer questions with nurse documented in this encounterFirelands Regional Medical Center South Campus10-16-2023 Hospital Discharge instructions Patient Education 09/13/2023 15:45:43 [...] urethra. Follow these instructions at home: Take wknx-suq-hcdwvib and prescription medicines only as told by [...] provider. Document Revised: 06/03/2022 Document Reviewed: 06/03/2022 Hua Kang Patient Education 2022 [employer] 05/17/2023 08:39:24 Prostate Cancer Prostate Cancer [...] greater thelikelihood that the cancer will spread. Indianapolis 6 or lower: This indicates that the cancer cells look similar to normal prostate cells (well differentiated). Judd 7: This indicates that the cancer cells look somewhat similar to normal prostate cells (moderately differentiated). [place] 8, 9, or 10: This indicates that [...] stress of having cancer. General instructions Take cnxu-vfe-xfivbxy and prescription medicines only as told by your health care provider. If you have to go to the hospital, notify your cancer specialist (oncologist). Keep all follow-up visits. This is important. Where to find more information Citizen [place] Cancer Society: www.cancer.org Citizen Of [place] Society of Clinical Oncology: www.cancer.net National Cancer Rumsey: www.cancer.gov Contact a health care provider if: [...] provider. Document Revised: 02/11/2022 Document Reviewed: 02/11/2022 [employer] Patient Education 2022 [employer]. Follow Up Care 05/12/2023 15:19:24 With:PETRA OVIEDO, Leila Simpson, AP Address: [facility] [address], [place] [address]- When:Within 6 Month(s) Comments:w/PSA [facility] 08-14-2023 Hospital Discharge instructions Patient Education [...] under a microscope. This is called the [place] score and the total score can range from 6 10, indicating how likely it is that the cancer will spread (metastasize) to other parts of the body. The higher the score, the greater thelikelihood that the cancer will spread. [place] 6 or lower: This indicates that the cancer cells look similar to normal prostate cells (well differentiated). [place] 7: This indicates that the cancer cells [...] stress of having cancer. General instructions Take pqze-qqn-fbxitqq and prescription medicines only as told by your health care provider. If you have to go to the hospital, notify your cancer specialist (oncologist). Keep all follow-up visits. This is important. Where to find more information Citizen Of [place] Cancer Society: www.cancer.org Citizen Of [place] Society of Clinical Oncology: www.cancer.net National Cancer Rumsey: www.cancer.gov Contact a health care provider if: [...] provider. Document Revised: 02/11/2022 Document Reviewed: 02/11/2022 [employer] Patient Education 2022 [employer]. Follow Up Care 05/17/2023 12:57:55 With:PETRA OVIEDO, Leila Simpson, URL Address: [facility] [address], [place] [phone] When: Unknown Comments:f/u scheduled 09/13/23 with PSA [facility] 08-08-2023 Nurse Note* Michelle Dalal RN - 07/06/2023 1:52 PM EDT AUA 18 Michelle Dalal RN documented in this encounterFirelands Regional Medical Center South Campus08-08-2023 History of Present illness Narrative* Jhony Lux [...] ASSESSMENT/PLAN: Prostate adenocarcinoma, initial PSA 2.0, biopsy [place] score 4 + 4 = 8 (grade [...] by: Jhony Lux MD documented in this encounterFirelands Regional Medical Center South Campus06-07-2023 Evaluation note* Encounter Date Diagnosis Assessment Notes Treatment Notes Treatment Clinical Notes Apr, Chronic diarrhea (ICD-10 - K52.9 ) [employer] Other 04-10-2023 Hospital Discharge instructions Patient Education [...] who: Are older than age 65. Are -Citizen Of [place]. Are obese. Have a family history of [...] cells. Follow these instructions at home: Take reum-pos-ttokanl and prescription medicines only as told by [...] 11/15/2006 Document Revised: 10/28/2018 Document Reviewed: 07/26/2017 [employer] Kang Patient Education [employer]. Follow Up Care 03/08/2023 10:43:59 With:PETRA OVIEDO, Leila Simpson, URL Address: [facility] [address], [place] [address]- When: Unknown [facility] 02-23-2023 History of Present illness Narrative* [...] intake is as follows: B- cookies L- [employer] Sub D- usually similar to lunch [...] Change: Gain of 5.8kg x 6 months [place] Body Weight: 60.9kg Estimated kilocalorie needs: 1522 kilocalories determined by 25 kcal/kg Estimated protein needs: 61-73 grams determined by 1.0-1.2 g/kg [place] weight Estimated fluid needs: ~1500 milliliters based [...] pt request Referred by: Mary Iraheta APRN.SARAH MNTawana Billing Type: Initial Assess/15 min 1 unit Time Spent with Patient: 15 minutes Signed by: Albina Russell MS, RONNI, LD documented in this encounterFirelands Regional Medical Center South Campus10-07-2022 Hospital Discharge instructions Patient Education 09/04/2022 12:16:55 [...] urethra. Follow these instructions at home: Take ftpg-pzf-gzgoaix and prescription medicines only as told by [...] 11/15/2006 Document Revised: 10/10/2019 Document Reviewed: 12/20/2017 Hua Kang Patient Education 2020 [employer]. Follow Up Care 02/27/2022 12:25:22 With:PETRA OVIEDO, Leila Simpson, URL Address: [address] [place] [address] [place] [address]- When: Unknown [facility] 08-09-2022 Nurse Note* Michelle Dalal RN - 07/07/2022 2:34 PM EDT AUA 18. Pt does not have med list. Michelle Dalal RN documented in this encounterFirelands Regional Medical Center South Campus08-09-2022 History of Present illness Narrative* G Johan Lux MD - 07/07/2022 2:33 PM EDT Radiation Oncology - Follow Up Note PATIENT NAME: Meredith Villatoro PATIENT DIAGNOSIS: Prostate adenocarcinoma, initial PSA 2.0, biopsy [place] score 4 + 4 = 8 (grade [...] by: Jhony Lux MD documented in this encounterFirelands Regional Medical Center South Campus07-21-2022 History of Present illness Narrative* Jhony Lux [...] by: Jhony Lux MD documented in this encounterFirelands Regional Medical Center South Campus07-21-2022 Nurse Note* Sharon Ocampo LPN - 06/18/2022 8:30 AM EDT AUA= 13 documented in this encounterFirelands Regional Medical Center South Campus07-21-2022 History of Present illness Narrative* Jhony Lux MD - 06/18/2022 12:00 AM EDT Patient: Meredith Villatoro Date:06/18/2022 [facility] Department of Radiation Oncology [facility] RADIATION ONCOLOGY POST SEED IMPLANT SIMULATION [...] will commence following simulation. documented in this encounterFirelands Regional Medical Center South Campus07-11-2022 History of Present illness Narrative* G Johan [...] by: Jhony Lux MD cc: Adrian Castano [address] [place] [address] * Albina Byrne RN - 06/04/2022 1:40 PM EDT AUA=21 Albina Byrne RN documented in this encounterFirelands Regional Medical Center South Campus06-27-2022 History of Present illness Narrative* Jhony Lux MD - 05/25/2022 2:34 PM EDT Date: 05/21/22 Facility: [facility] Procedure: prostate transperineal brachytherapy implant Sources: [id number] [...] activity seen, results documented. Michelle Lux MD [facility] documented in this encounterFirelands Regional Medical Center South Campus06-14-2022 History of Present illness Narrative* Jhony Lux MD - 05/12/2022 12:00 AM EDT MEREDITH VILLATORO [id number] 05/12/2022 [facility] Department of Radiation Oncology [facility] RADIATION ONCOLOGY BRACHYTHERAPY TREATMENT PLANNING NOTE [...] M.D. / 24:21 PM documented in this encounterFirelands Regional Medical Center South Campus06-07-2022 History of Present illness Narrative* Jhony Lux [...] collected. Jhony Lux MD documented in this encounterFirelands Regional Medical Center South Campus06-07-2022 History of Present illness Narrative* Jhony Lux MD - 05/05/2022 12:00 AM EDT MEREDITH VILLATORO [id number] 05/05/2022 [facility] Department of Radiation Oncology [facility] RADIATION ONCOLOGY SIMULATION NOTE DATE OF SIMULATION: 05/05/2022 MACHINE: Video Recruit Focus 500 Diagnosis: 185 (Prostate Gland) AREA:Prostate PATIENT POSITION: Supine CONTRAST: None PROTOCOL: None CONCURRENT THERAPY: None FIXATION DEVICE: UTS Stabilization device by Nucletron. PROCEDURE: Patient was simulated in exaggerated dorsal lithotomy position. Serial images of the prostate were acquired using TRUS and reconstructed in 3D space. These images were imported into [employer] Prostate planning system where a plan was generated. ASSESSMENT/PLAN: Patient tolerated simulation procedure well. Electronically Signed Johan Lux M.D. / :50 PM documented in this encounterFirelands Regional Medical Center South Campus05-27-2022 History of Present illness Narrative* Jhony Lux MD - 04/24/2022 12:00 AM EDT [facility] Radiation Oncology Department RADIATION ONCOLOGY - [...] planned brachytherapy boost on 05/21/22. Staff Physician Joahn Lux M.D. / NRS :54 PM Electronically Signed cc: Dr. Petra Castano, KILN TENDER documented in this encounterFirelands Regional Medical Center South Campus05-23-2022 History of Present illness Narrative* Jhony Lux [...] planned. Jhony Lux MD documented in this encounterFirelands Regional Medical Center South Campus05-16-2022 History of Present illness Narrative* Yevgeniy Son [...] planned. Yevgeniy Son MD documented in this encounterFirelands Regional Medical Center South Campus05-16-2022 Miscellaneous Notes* Telephone Encounter - Michelle Dalal [...] He was encouraged to push fluids. Michelle Dalal, RN documented in this encounterFirelands Regional Medical Center South [facility] History of Present illness Narrative* Jhony Lux MD - 04/06/2022 1:38 PM EDT Radiation Oncology - On Treatment Review (OTR) Note PATIENT NAME: Meredith Villatoro PATIENT DIAGNOSIS: Prostate adenocarcinoma, initial PSA 2.0, biopsy [place] score 4 + 4 = 8 (grade [...] planned. Jhony Lux MD documented in this encounterFire[facility] History of Present illness Narrative* Jhony Lux MD - 04/02/2022 2:16 PM EDT Radiation Oncology - On Treatment Review (OTR) Note PATIENT NAME: Meredith Villatoro PATIENT DIAGNOSIS: Prostate adenocarcinoma, initial PSA 2.0, biopsy [place] score 4 + 4 = 8 (grade [...] planned. Jhony Lux MD documented in this encounterFirelands [facility]05-05-2022 Nurse Note* Sharon Ocampo LPN - 04/02/2022 1:52 PM EDT Mreedith Villatoro presents in office today for: Lab Draw only . Ordering Provider: Johan Lux M.D. Test (s) ordered: CBC Method for obtaining blood: Phlebotomy was performed, accessing left antecubital vein. Needle removed intact. Dressing secured. Patient denies discomfort, dizziness, light-headedness or weakness and left the department without assist. Sharon Ocampo LPN documented in this encounterFirelands [facility]05-03-2022 History of Present illness Narrative* G Johan Lux MD - 03/31/2022 1:39 PM EDT Radiation Oncology - On Treatment Review (OTR) Note PATIENT NAME: Meredith Villatoro PATIENT DIAGNOSIS: Prostate adenocarcinoma, initial PSA 2.0, biopsy [place] score 4 + 4 = 8 (grade [...] planned. Jhony Lux MD documented in this encounterFirelands [facility]04-25-2022 History of Present illness Narrative* Jhony Lux [...] planned. Jhony Lux MD documented in this encounterFirelands [facility] Medical [facility]04-22-2022 Miscellaneous Notes* Telephone Encounter - Sharon Ocampo LPN - 03/20/2022 4:27 PM EDT CBC order pending your approval. Sharon Ocampo LPN documented in this encounterFirelands [facility]04-18-2022 History of Present illness Narrative* Jhony Lux MD - 03/16/2022 12:00 AM EDT MEREDITH VILLATORO [id number] 03/16/2022 [facility] Radiation Oncology Department SIMULATION NOTE DATE OF SIMULATION: 03/16/2022 THERAPIST: Viky Alicea MACHINE: EZDOCTOR DIAGNOSIS: Malignant neoplasm of [id number] AREA: PELVIS CONTRAST: None <Select> Consent in [...] / WST 24:16 PM documented in this encounterFirelands [facility] Medical [facility]04-18-2022 History of Present illness Narrative* Jhony Lux MD - 03/16/2022 12:00 AM EDT MEREDITH VILLATORO [id number] 03/16/2022 [facility] Department of Radiation Oncology Treatment Planning [...] Lux M.D. 23:19 PM documented in this encounterFirelands Regional Medical [facility]04-13-2022 History of Present illness Narrative* TERRELL Lockhart [...] is living and Father is Child/Children: No clinical care coordinator arrangements needed: Na Siblings: 2 sister(s) Grandchild(morris): none Home Health Provider: No Community Services: No Jennifer Identified: No Mu-Ism/Spirituality: None Are these practices or beliefs that may affect or influence treatment? No EMPLOYMENT/FINANCIAL/HEALTH INSURANCE: Employment: [employer] Disability and Retired Income source: Social Security disability (SSD) Insurance: Medicare HMO Medicaid active Prescription coverage: Yes Is the patient appropriate for referral to [facility] COBRA Assistance program? N/A Financial Distress: Yes, [...] EPIC: No Health Care Durable Power of Capacity Planning Manager: No and declined at this time Scanned [...] Resources and Referrals: Internal: NA External: Other [facility] CLINICAL IMPRESSION: Patient is a 61 year old male with a diagnosis of prostate cancer. Patient lives in [place], [place] with his mother and sister. Patient [...] to complete an Intake Application for the [facility]. SW faxed the completed form and encouraged the Patient to call the [facility] to finalize details of his intake application. [...] SW in: MARK Puckett documented in this encounterFirelands Regional Medical Center [facility] Campus04-13-2022 Nurse Note* Michelle Dalal RN - 03/11/2022 1:58 PM EDT Radiation Therapy - Patient Education Note PATIENT NAME: Meredith Villatoro PATIENT March 11, 2022 [facility] FACILITY/LOCATION: [facility] READINESS TO LEARN Cognitive Ability: Alert and [...] by: Michelle Dalal RN documented in this encounterFirelands Regional Medical [facility]04-13-2022 Nurse Note* Michelle Dalal RN - 03/11/2022 1:03 PM EDT AUA 8 Michelle Dalal RN documented in this encounterFirelands Regional Medical [facility]04-13-2022 History of Present illness Narrative* G Johan Lux MD - 03/11/2022 1:02 PM EDT Radiation Oncology - Prostate Cancer New Patient/Consult Note PATIENT NAME: Meredith Villatoro PATIENT REQUESTING PROVIDER: Dr. Lambert DIAGNOSIS: 61 year old male with prostate adenocarcinoma, initial PSA 2.0, biopsy [place] score 4 +4 = 8 (grade group [...] MD cc: Adrian Castano [address] [place] [address] Leila Lambert [address] [place] [address] documented in [facility] encounterA[facility] Future Appointments Appointment Date:09/04/2022 10:15:00 AM Scheduled Provider:Leila LAMBERT MD Location:[facility] Appointment Type:URO Office Visit [facility] evaluation + Plan note Future Appointments Appointment Date:03/08/2023 02:45:00 PM Scheduled Provider:Leila LAMBERT MD Location:[facility] Appointment Type:URO Office Visit Diagnostic Tests Pending * PSA Total 11/29/22 [facility] evaluation + Plan note Future Appointments Appointment Date:03/08/2023 02:45:00 PM Scheduled Provider:Leila LAMBERT MD Location:[facility] Future Appointments Appointment Date:09/13/2023 10:15:00 AM Scheduled Provider:Leila LAMBERT MD Location:[facility] Appointment Type:URO Office Visit Diagnostic Tests Pending * PSA Total 03/08/23 Future Scheduled Tests Laboratory* PSA Total 02/16/23 [facility] evaluation + Plan note Future Appointments Appointment Date:05/17/2023 11:45:00 AM Scheduled Provider:[facility] Office Visit Appointment Date:09/13/2023 10:15:00 AM Scheduled Provider:Leila [facility]AMBERT [facility] Type:[facility] Office Visit Future Scheduled Tests Laboratory* PSA Total 02/16/23 [facility] evaluation + Plan note Future Appointments Appointment Date:07/12/2023 10:30:00 AM Scheduled Provider:Leila LAMBERT MD Location:[facility] Appointment Type:URO Office Visit Appointment Date:09/13/2023 11:45:00 AM Scheduled Provider:Leila LAMBERT MD [facility] Type:URO Office Visit Future Scheduled Tests Laboratory* PSA Total 02/16/23 [facility] evaluation + Plan note Future Appointments Appointment Date:09/06/2023 09:30:00 AM Scheduled Provider: Location:[facility] Appointment Type:URO Nurse Visit Appointment Date:09/13/2023 11:45:00 AM Scheduled Provider:Leila LAMBERT MD Location:[facility] Appointment Type:URO Office Visit Future Scheduled Tests Laboratory* PSA Total 02/16/23 [facility] evaluation + Plan note Future Appointments Appointment Date:03/17/2024 10:45:00 AM Scheduled Provider:Leila LAMBERT MD Location:[facility] Appointment Type:URO Office Visit Diagnostic Tests Pending * PSA Total 09/13/23 Future Scheduled Tests Laboratory* PSA Total 02/16/23 [facility] evaluation + Plan note Future Appointments Appointment Date:09/29/2024 09:45:00 AM Scheduled Provider:Leila LAMBERT MD [facility] Type:URO Office Visit Diagnostic Tests Pending * PSA Total 07/30/24 [facility] evaluation + Plan note Future Appointments Appointment Date:09/29/2024 09:45:00 AM Scheduled Provider:Leila LAMBERT MD Location:[facility] Appointment Type:URO [facility] Future Appointments Appointment Date:10/16/2024 11:45:00 AM Scheduled Provider:Leila LAMBERT MD Location:[facility] Appointment Type:URO Office Visit [facility] evaluation + Plan note Future Appointments Appointment Date:01/08/2025 09:30:00 AM Scheduled Provider: [facility] App[facility] Type:URO Nurse Visit Appointment Date:01/15/2025 11:15:00 AM Scheduled Provider:Leila LAMBERT MD [facility] App[facility] Type:URO Office Visit Diagnostic Tests Pending * PSA Total 10/16/24 [facility] evaluation + Plan note Future Appointments Appointment Date:01/15/2025 11:15:00 AM Scheduled Provider:Leila LAMBERT MD Location:[facility] Appointment Type:URO Office Visit [facility] evaluation + Plan note Future Appointments Appointment Date:07/02/2025 10:00:00 AM Scheduled Provider: Location:[facility] Appointment Type:URO Nurse Visit Appointment Date:07/23/2025 10:15:00 AM Scheduled Provider:Leila LAMBERT MD Location:[facility] Appointment Type:URO Office Visit Diagnostic Tests Pending * PSA Total 01/15/25 [facility] evaluation + Plan note Future Appointments Appointment Date:09/13/2025 10:00:00 AM Scheduled Provider: Location:[facility] Appointment Type:URO Nurse Visit Appointment Date:09/17/2025 10:45:00 AM Scheduled Provider:Leila LAMBERT MD [facility] Type:URO Office Visit [facility] evaluation + Plan note Future Appointments Appointment Date:09/17/2025 10:45:00 AM Scheduled Provider:Leila LAMBERT MD [facility] App[facility] Type:URO Office Visit [facility] evaluation + Plan note Future Appointments Appointment Date:12/24/2025 12:45:00 PM Scheduled Provider:Leila LAMBERT MD Location:[facility] Appointment Type:URO Office Visit Future Scheduled Tests Laboratory* PSA Total 03/18/26 [facility] evaluation note* Diagnosis Prostate cancer (HCC)- [...] Hypertrophy of breast documented in this encounter [facility]Evaluation noteNo assessment information availableCleveland Clinic [facility] Work Phone: evaluzsafe note* Diagnosis History of prostate cancer- Primary Personal history of malignant neoplasm of prostate Prostate cancer (HCC) Malignant neoplasm of prostate documented [facility] encounter [facility]* Diagnosis Onset Date Resolution Status Abdominal pain acuteDiarrheaacute [facility] Work Phone: evaluation note* Diagnosis Onset Date Resolution Status Abdominal pain acuteDiarrheaacuteIBS (irritable bowel syndrome)acute [facility] Work Phone: evaluation note* Diagnosis Arthritis of left ankle- Primary Other enthesopathy of left foot and ankle Chronic pain of left ankle Other synovitis and tenosynovitis, left ankle and foot [facility] Diagnosis Arthritis of left ankle- Primary Other synovitis and tenosynovitis, left ankle and foot Chronic pain of left ankle [facility]* Diagnosis Arthritis of left ankle- Primary Other enthesopathy of left foot and ankle Chronic pain of left ankle Other synovitis and tenosynovitis, left ankle and foot Difficulty walking Difficulty in walking [facility]* Diagnosis Diarrhea, unspecified type- Primary Fecal urgency Personal history of prostate cancer Personal history of malignant neoplasm of prostate [facility] Diagnosis Gastroenteritis and colitis, viral- Primary Intestinal infection due to other organism, NEC Irritable bowel syndrome, unspecified type [facility]* Diagnosis Prostate cancer (HCC)- Primary Malignant neoplasm of prostate documented in this encounter [facility]* Diagnosis 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 (CMS-HCC)- Primary [facility]* Diagnosis S/P CABG x 2- Primary Postsurgical aortocoronary bypass status Postoperative atrial fibrillation (CMS-HCC) [facility]* Diagnosis S/P CABG x 2 Postsurgical aortocoronary bypass status Postoperative atrial fibrillation (CMS-HCC) [facility] Diagnosis S/P CABG x 2 Postsurgical aortocoronary bypass status [facility]* Diagnosis Postoperative atrial fibrillation ([facility]-HCC) [facility]* Diagnosis Primary hypertension- Primary Unspecified essential hypertension [facility] Narrative - Reported* Type Description Date Medical History PROSTATE CANCER Medical HistoryHIGH BLOOD PRESSURESurgical HistoryBOWEL RESECTION FOR UNCLEAR REASONS - POSSIBLE [id number] HistoryPROSTATE [id number] Hospitalization HistorySEE ABOVE [employer] Other Hospital course Narrative No data available for this section [facility] Hospital Discharge instructions No data available for this section [facility] Hospital Discharge instructions Additional Instructions DISCHARGE [...] problems. -Follow up with PCP. -Office number [phone].[facility] Work Phone: InstructionsNot on filedocumented in [...] available for this section [facility] Summary Purpose Family History No Family History Records Found Relationship Condition Age at Onset Recorded Date/T vicky father Unknown sisterHypertensionUnknownDiabetes mellitusUnknown Advance Directives No Advanced Directives Records Found Date ActivatedDate XmvmnnoylozPiautkqc63/5/2025 3:23 PM10/05/2025 5:01 PMDate ActivatedDate InactivatedComments02/27/2025 8:57 PM03/07/2025 6:50 PMDate Activated Date InactivatedComments02/24/2025 10:21 PM02/27/2025 9:37 AMDate ActivatedDate InactivatedComments01/05/2025 11:48 PM2 2:14 PMDate ActivatedDate InactivatedComments06/22/2022 12:10 AM06/23/2022 6:44 PMDate ActivatedDate InactivatedComments02/27/2025 8:57 PM03/07/2025 6:50 PMDate ActivatedDate InactivatedComments02/24/2025 10:21 PM02/27/2025 9:37 AMDate ActivatedDate InactivatedComments01/05/2025 11:48 PM2 2:14 PMDate ActivatedDate InactivatedComments06/22/2022 12:10 AM06/23/2022 6:44 PM Advance Directive Response Recorded Date/ Time Advance Directives No January 06, 2022 11:42am Advance Directive Response Recorded Date/ Time Advance Directives No January 06, 2022 12:42pm Date ActivatedDate InactivatedComments06/22/2022 12:10 AM06/23/2022 6:44 PMDate ActivatedDate InactivatedComments01/05/2025 11:48 PM2 2:14 PMDate ActivatedDate InactivatedComments06/22/2022 12:10 AM06/23/2022 6:44 PMDate ActivatedDate InactivatedComments02/27/2025 8:57 PMDate ActivatedDate Inactivated Comments02/27/2025 8:57 PM03/07/2025 6:50 PMDate ActivatedDate InactivatedComments 02/24/2025 10:21 PM02/27/2025 9:37 AMDate ActivatedDate InactivatedComments01/05/2025 11:48 PM2 2:14 PMDate ActivatedDate InactivatedComments06/22/2022 12:10 AM06/23/2022 6:44 PMDate ActivatedDate AqhuwcuphtySdpjyufy09/5/2025 3:23 PM Chief Complaint and Reason for Visit Chief Complaint K52.9 R14.3 R10.9 Chief Complaint Chronic Diarrhea K52.9 R14.3 R10.9 Change in Bowel Habits, Diarrhea Chief Complaint Change in Bowel Habi ts, Diarrhea follow up scopeReason for VisitAbdominal pain Diarrhea Chief Complaint 3 month follow [...] or prosecute any alcohol or drug abuse patient.[facility] CampusIn the event this information is protected by the Federal Confidentiality of Alcohol and Drug Abuse Patient Records regulations: The Federal rules restrict any use of the information to criminally investigate or prosecute any alcohol or drug abuse patient.[facility] CampusIn the event this information is protected by the Federal Confidentiality of Alcohol and Drug Abuse Patient Records regulations: The Federal rules restrict any use of the information to criminally investigate or prosecute any alcohol or drug abuse patient.[facility] CampusIn the event this information is protected by the Federal Confidentiality of Alcohol and Drug Abuse Patient Records regulations: The Federal rules restrict any use of the information to criminally investigate or prosecute any alcohol or drug abuse patient.[facility] CampusIn the event this information is protected by the Federal Confidentiality of Alcohol and Drug Abuse Patient Records regulations: The Federal rules restrict any use of the information to criminally investigate or prosecute any alcohol or drug abuse patient.[facility] CampusIn the event this information is protected by the Federal Confidentiality of Alcohol and Drug Abuse Patient Records regulations: The Federal rules restrict any use of the information to criminally investigate or prosecute any alcohol or drug abuse patient.[facility] CampusIn the event this information is protected by the Federal Confidentiality of Alcohol and Drug Abuse Patient Records regulations: The Federal rules restrict any use of the information to criminally investigate or prosecute any alcohol or drug abuse patient.[facility]In the event this information is protected by the Federal Confidentiality of Alcohol and Drug Abuse Patient Records regulations: The Federal rules restrict any use of the information to criminally investigate or prosecute any alcohol or drug abuse patient.[facility] CampusIn the event this information is protected by the Federal Confidentiality of Alcohol and Drug Abuse Patient Records regulations: The Federal rules restrict any use of the information to criminally investigate or prosecute any alcohol or drug abuse patient.[facility] CampusIn the event this information is protected by the Federal Confidentiality of Alcohol and Drug Abuse Patient Records regulations: The Federal rules restrict any use of the information to criminally investigate or prosecute any alcohol or drug abuse patient.[facility] CampusIn the event this information is protected by the Federal Confidentiality of Alcohol and Drug Abuse Patient Records regulations: The Federal rules restrict any use of the information to criminally investigate or prosecute any alcohol or drug abuse patient.[facility] CampusIn the event this information is protected by the Federal Confidentiality of Alcohol and Drug Abuse Patient Records regulations: The Federal rules restrict any use of the information to criminally investigate or prosecute any alcohol or drug abuse patient.[facility] CampusIn the event this information is protected by the Federal Confidentiality of Alcohol and Drug Abuse Patient Records regulations: The Federal rules restrict any use of the information to criminally investigate or prosecute any alcohol or drug abuse patient.[facility] CampusIn the event this information is protected by the Federal Confidentiality of Alcohol and Drug Abuse Patient Records regulations: The Federal rules restrict any use of the information to criminally investigate or prosecute any alcohol or drug abuse patient.[facility] CampusIn the event this information is protected by the Federal Confidentiality of Alcohol and Drug Abuse Patient Records regulations: The Federal rules restrict any use of the information to criminally investigate or prosecute any alcohol or drug abuse patient.[facility] CampusIn the event this information is protected by the Federal Confidentiality of Alcohol and Drug Abuse Patient Records regulations: The Federal rules restrict any use of the information to criminally investigate or prosecute any alcohol or drug abuse patient.[facility] CampusIn the event this information is protected by the Federal Confidentiality of Alcohol and Drug Abuse Patient Records regulations: The Federal rules restrict any use of the information to criminally investigate or prosecute any alcohol or drug abuse patient.[facility] CampusIn the event this information is protected by the Federal Confidentiality of Alcohol and Drug Abuse Patient Records regulations: The Federal rules restrict any use of the information to criminally investigate or prosecute any alcohol or drug abuse patient.[facility] CampusIn the event this information is protected by the Federal Confidentiality of Alcohol and Drug Abuse Patient Records regulations: The Federal rules restrict any use of the information to criminally investigate or prosecute any alcohol or drug abuse patient.[facility] CampusIn the event this information is protected by the Federal Confidentiality of Alcohol and Drug Abuse Patient Records regulations: The Federal rules restrict any use of the information to criminally investigate or prosecute any alcohol or drug abuse patient.[facility] CampusIn the event this information is protected by the Federal Confidentiality of Alcohol and Drug Abuse Patient Records regulations: The Federal rules restrict any use of the information to criminally investigate or prosecute any alcohol or drug abuse patient.[facility] CampusIn the event this information is protected by the Federal Confidentiality of Alcohol and Drug Abuse Patient Records regulations: The Federal rules restrict any use of the information to criminally investigate or prosecute any alcohol or drug abuse patient.[facility] CampusIn the event this information is protected by the Federal Confidentiality of Alcohol and Drug Abuse Patient Records regulations: The Federal rules restrict any use of the information to criminally investigate or prosecute any alcohol or drug abuse patient.[facility] CampusIn the event this information is protected by the Federal Confidentiality of Alcohol and Drug Abuse Patient Records regulations: The Federal rules restrict any use of the information to criminally investigate or prosecute any alcohol or drug abuse patient.[facility] CampusIn the event this information is protected by the Federal Confidentiality of Alcohol and Drug Abuse Patient Records regulations: The Federal rules restrict any use of the information to criminally investigate or prosecute any alcohol or drug abuse patient.[facility] CampusIn the event this information is protected by the Federal Confidentiality of Alcohol and Drug Abuse Patient Records regulations: The Federal rules restrict any use of the information to criminally investigate or prosecute any alcohol or drug abuse patient.[facility] CampusIn the event this information is protected by the Federal Confidentiality of Alcohol and Drug Abuse Patient Records regulations: The Federal rules restrict any use of the information to criminally investigate or prosecute any alcohol or drug abuse patient.[facility] CampusIn the event this information is protected by the Federal Confidentiality of Alcohol and Drug Abuse Patient Records regulations: The Federal rules restrict any use of the information to criminally investigate or prosecute any alcohol or drug abuse patient.[facility] CampusIn the event this information is protected by the Federal Confidentiality of Alcohol and Drug Abuse Patient Records regulations: The Federal rules restrict any use of the information to criminally investigate or prosecute any alcohol or drug abuse patient.[facility] CampusIn the event this information is protected by the Federal Confidentiality of Alcohol and Drug Abuse Patient Records regulations: The Federal rules restrict any use of the information to criminally investigate or prosecute any alcohol or drug abuse patient.[facility] CampusIn the event this information is protected by the Federal Confidentiality of Alcohol and Drug Abuse Patient Records regulations: The Federal rules restrict any use of the information to criminally investigate or prosecute any alcohol or drug abuse patient.[facility] CampusIn the event this information is protected by the Federal Confidentiality of Alcohol and Drug Abuse Patient Records regulations: The Federal rules restrict any use of the information to criminally investigate or prosecute any alcohol or drug abuse patient.[facility] CampusIn the event this information is protected by the Federal Confidentiality of Alcohol and Drug Abuse Patient Records regulations: The Federal rules restrict any use of the information to criminally investigate or prosecute any alcohol or drug abuse patient.[facility] CampusIn the event this information is protected by the Federal Confidentiality of Alcohol and Drug Abuse Patient Records regulations: The Federal rules restrict any use of the information to criminally investigate or prosecute any alcohol or drug abuse patient.[facility] Reason for Visit (unrecogniz ed section and content) ReasonCommentsPatient EducationReasonCommentsProstate CancerSpecialtyDiagnoses / ProceduresReferred By ContactReferred To ContactRadiation Oncology / RADIATION ONCOLOGY Diagnoses Dr. Lambert referral DX: Prostate Ca Procedures NEW PATIENT RAD ONC Leila Lambert MD [address] [place] [address] Jhony Lux MD [address] [place] [address] [place] [address] Referral IDStatusReasonStart DateExpiration DateVisits RequestedVisits [id number]/13/202212/31/[id number]lHktvwcjb Radiotherapy On-treatment VisitReasonCommentsDiarrheaReasonCommentsUrinalysis ReasonCommentsVolume StudySpecialtyDiagnoses / ProceduresReferred By Contact Referred To ContactRadiation Oncology / RADIATION ONCOLOGY Diagnoses Malignant neoplasm of prostate SIM/IRA/Pelvis Procedures SIMULATION MOLLY IMRT 25 fractions Jhony Lux MD [address] [place] [address] [place] [address] Jhony Lux MD [address] [place] [address] [place] [address] Ref[facility]Status[facility] DateExpiration DateVisits RequestedVisits [id number]/18/202212/31/[id number] TelephoneSpecialtyDiagnoses / ProceduresReferred By ContactReferred To Contact Radiation Oncology / RADIATION ONCOLOGY Diagnoses Malignant neoplasm of prostate 6 Month Follow Up Procedures OFFICE/OUTPATIENT ESTABLISHED HIGH MDM 40-54 MIN OFFICE/OUTPATIENT ESTABLISHED MOD MDM 30-39 MIN OFFICE/OUTPATIENT ESTABLISHED LOW MDM 20-29 MIN OFFICE/OUTPATIENT ESTABLISHED SF MDM 10-19 MIN EST PATIENT Angmichael, Adrian, KILN TENDER [address] [place] [address] Jhony Lux MD [address] [place] [address] [place] [address] Referral IDStatusReasonStart DateExpiration DateVisits RequestedVisits [id number]/24/202312/[id number] / Procedures Referred By ContactReferred To ContactRadiation Oncology / RADIATION ONCOLOGY Diagnoses followup Procedures OFFICE/OUTPATIENT ESTABLISHED HIGH [facility] 40 MIN EST PATIENT Adrian Castano, KILN TENDER [address] [place] [address] Jhony Lux MD [address] [place] [address] [place] [address] Referral IDStatusReasonStart DateExpiration DateVisits RequestedVisits [id number]/18/202412/31/[id number] IDStatusReasonStart Date Expiration DateVisits RequestedVisits [id number]/18/[id number] DateCommentsAdvice Only4ReasonComments FUV/check braceTimangelito Villatoro is a 64 y.o. male who presents for FUV Left ankle pain and AFO check. Patient relates when he reaches to remove the brace, his ankle feels like pins and needles. Patient has intermittent stabbing pain at nighttime in the right ankle.ReasonCommentsConsultTimangelito Villatoro is a 64 y.o. male who presents for FUV Left ankle pain and AFO check. Patient relates when he reaches to remove the brace, his ankle feels like pins and needles. Patient has intermittent stabbing pain at nighttime in the right ankle. Patients sister Yolette to discuss option.sReasonCommentsMRI resultsReasonCommentsDiarrheaReason CommentsNauseaNausea, vomiting, PMH ER 01/05/25, last colon 09/11/24Specialty Diagnoses / ProceduresReferred By ContactReferred To ContactRadiation Oncology / RADIATION ONCOLOGY Diagnoses Follow-up exam, more than 1 year since previous exam 1 yr rv Procedures OFFICE/OUTPATIENT ESTABLISHED HIGH MDM 40 MIN EST PATIENT Jhony Lux MD [address] [facility] [place] [address] Phone: tel: [place]: [place] [address] [place] [address] Phone: tel: Referral IDStatusReasonStart DateExpiration DateVisits RequestedVisits [id number]/30/202512/31/[id number] DateCommentsAcute MI03/03/2025ReasonOnset HatsWcnvhhxpUmbmfmxxfqt42/06/2025ontract: [id number] 9280 [facility] re Low blood pressure; Rm E517IhfxwlIyscj DateCommentsorders 03/05/2025ontract: [id number] 9280 [facility] re ordersReasonCommentsFollow-up hosp f/u TTH- discharged 03/07- saw LLD in ED- labs 03/08- vas cardotid 03/01- nuc stress 01/27- sched w ptReasonOnset DateCommentsMed Mvoyta2603/22/2025ReasonComments Nm Pet RequestReasonOnset DateCommentsMed Nbvpjj7904/10/2025ReasonOnset Date CommentsChest Pain04/10/2025ReasonCommentsRadiology NMReasonOnset DateComments Med Qzsoqb3006/20/2025ReasonCommentsFollow-upEST PT 3 MS F/U L/S O [facility] ER CHEST PAINReasonOnset HnuoNpkyiekhZjvtkszeoig68/07/2025 Care Teams (unrecognized sec tion and content) Team Status: Active Member Role Status Dates [facility] Active Team Status: Inactive Member Role Status Dates [facility] Active Start: June 22, 2024 End: June 22Richard Aaron ProviderActiveStart: June 22, 2024 End: June 22, 2024 Team Status: Active Member Role Status Dates [facility] Active Start: January 05, 2024 Richard Chisholm Provider, Other ProviderActiveStart: January 05, 2024 Team Status: Inactive Member Role Status [facility] Active Start: March 01, 2024 End: March 01Richard Aaron ProviderActiveStart: March 01, 2024 End: March 01, 2024Team MemberRelationshipSpecialtyStart DateEnd Date Juma Castanoa, KILN TENDER [address] [facility] [place] [address] PCP - GeneralInternal Medicine03/03/22 Leila Lambert MD [address] [place] [address] ReferringUrology03/03/22Team MemberRelationshipSpecialtyStart DateEnd Date Juma Castanoa, KILN TENDER [address] [facility] [place] [address] PCP - GeneralInternal Medicine03/03/22 Leila Lambert MD [address] [place] [address] ReferringUrology03/03/22Team MemberRelationshipSpecialtyStart DateEnd Date Adrian Castano, KILN TENDER [address] [facility] [place] [address] PCP - GeneralInternal Medicine03/03/22 Leila Lambert MD [address] [place] [address] ReferringUrology03/03/22Team MemberRelationshipSpecialtyStart DateEnd Date Juma Castanoa, KILN TENDER [address] [place] [address] PCP - GeneralInternal Medicine03/03/22 Leila Lambert MD [address] [place] [address] ReferringUrology03/03/22Te MemberRelationshipSpecialtyStart DateEnd Date Adrian Castano, KILN TENDER [address] [place] [address] PCP - GeneralInternal Medicine03/03/22 Leila Lambert MD [address] [place] [address] ReferringUrology03/03/22Te MemberRelationshipSpecialtyStart DateEnd Date Adrian Castano, KILN TENDER [address] [place] [address] PCP - GeneralInternal Medicine03/03/22 Leila Lambert MD [address] [place] [address] ReferringUrology03/03/22Te MemberRelationshipSpecialtyStart DateEnd Date Adrian Castano, KILN TENDER [address] [place] [address] PCP - GeneralInternal Medicine03/03/22 Leila Lambert MD [address] [place] [address] ReferringUrology03/03/22Te MemberRelationshipSpecialtyStart DateEnd Date Adrian Castano, KILN TENDER [address] [place] [address] PCP - GeneralInternal Medicine03/03/22 Leila Lambert MD [address] [place] [address] ReferringUrology03/03/22Team MemberRelationshipSpecialtyStart DateEnd Date Adrian Castano, KILN TENDER [address] [place] [address] PCP - GeneralInternal Medicine03/03/22 Leila Lambert MD [address] [place] [address] ReferringUrology03/03/22Team MemberRelationshipSpecialtyStart DateEnd Date Adrian Castano, KILN TENDER [address] [place] [address] PCP - GeneralInternal Medicine03/03/22 Leila Lambert MD [address] [place] [address] ReferringUrology03/03/22Team MemberRelationshipSpecialtyStart DateEnd Date Juma Castanoa, KILN TENDER [address] [place] [address] PCP - GeneralInternal Medicine03/03/22 Leila Lambert MD [address] [place] [address] ReferringUrology03/03/22Te MemberRelationshipSpecialtyStart DateEnd Date Juma Castanoa, KILN TENDER [address] [place] [address] PCP - GeneralInternal Medicine03/03/22 Leila Lambert MD [address] [place] [address] ReferringUrology03/03/22Team MemberRelationshipSpecialtyStart DateEnd Date Juma Castanoa, KILN TENDER [address] [place] [address] PCP - GeneralInternal Medicine03/03/22 Leila Lambert MD [address] [place] [address] ReferringUrology03/03/22Te MemberRelationshipSpecialtyStart DateEnd Date Adrian Castano, KILN TENDER [address] [place] [address] PCP - GeneralInternal Medicine03/03/22 Leila Lambert MD [address] [place] [address] ReferringUrology03/03/22Te MemberRelationshipSpecialtyStart DateEnd Date Adrian Castano, KILN TENDER [address] [place] [address] PCP - GeneralInternal Medicine03/03/22 Leila Lambert MD [address] [place] [address] ReferringUrology03/03/22Te MemberRelationshipSpecialtyStart DateEnd Date Juma Castanoa, KILN TENDER [address] [place] [address] PCP - GeneralInternal Medicine03/03/22 Leila Lambert MD [address] [place] [address] ReferringUrology03/03/22Te MemberRelationshipSpecialtyStart DateEnd Date Adrian Castano, KILN TENDER [address] [place] [address] PCP - GeneralInternal Medicine03/03/22 Leila Lambert MD [address] [place] [address] ReferringUrology03/03/22Te MemberRelationshipSpecialtyStart DateEnd Date Adrian Castano, KILN TENDER [address] [place] [address] PCP - GeneralInternal Medicine01/05/23 Leila Lambert MD [address] [place], [place] [address] ReferringUroformerly [facility]03/03/[address] [address] 01/05/23Team MemberRelationshipSpecialtyStart DateEnd Date Adrian Castano CNP [address] [place] [address] PCP - [facility]01/05/23 Leila Lambert MD [address] [place] [address] [facility]03/03/[address] [address] 01/05/23 Team Status: Inactive Member Role Status [facility] Active Richard Chisholm ProviderActive Team Status: Inactive Member Role Status Johnny Kirk MD Attending Provider Active S tart: November 30, 2023 End: November 30, 2023 Team Status: Inactive Member Role Status [facility] Active Start: November 30, 2023 End: November 30Richard Aaron ProviderActiveStart: November 30, 2023 End: November 30, 2023Team MemberRelationshipSpecialtyStart DateEnd Date Adrian Castano CNP [address] [place] [address] [facility] Leila Lambert MD [address] [place] [address] ReferringUrolog03/03/22 [facility] [address] [place] [address] 01/05/23Team MemberRelationshipSpecialtyStart DateEnd Date Adrian Castano CNP [address] [place] [address] PCP - GeneralInternal Medicine Leila Lambert MD [address] [place] [address] ReferringUrology03/03/22Team MemberRelationshipSpecialtyStart DateEnd Date Adrian Castano CNP [address] [place] [address] PCP - GeneralInternal Medicine Leila Lambert MD [address] [place] [address] ReferringUrology03/03/22Te MemberRelationshipSpecialtyStart DateEnd Date Yolette Warren MD [address] [place] [address] PCP - GeneralPediatric05/16/24Team MemberRelationshipSpecialtyStart DateEnd Date Yolette Warren MD [address] [place] [address] PCP - GeneralPediatric05/16/24Team MemberRelationshipSpecialtyStart DateEnd Date Yolette Warren MD [address] [place] [address] PCP - GeneralPediatrics6Team MemberRelationshipSpecialtyStart DateEnd Date Yolette Warrne MD [address] [place] [address] PCP - GeneralPediatric05/16/24Team MemberRelationshipSpecialtyStart DateEnd Date Yolette Warren MD [address] [place] [address] PCP - GeneralPediatric05/16/24Team MemberRelationshipSpecialtyStart DateEnd Date Yolette Warren MD [address] [place] [address] P[facility] - [facility]24 Team Status: Inactive Member Role Status Dates Anjana Dietz DPM MS Attending Provider Active Start: December 11, 2024 End: December 11, 2024Team MemberRelationshipSpecialtyStart DateEnd Date [facility] [address] [place] PCP - Generalmily Medicine06/08/21Team MemberRelationshipSpecialtyStart DateEnd [facility] [address] [place] PCP - Generalmily Medicine06/08/21Te MemberRelationshipSpecialtyStart DateEnd Date [facility] [address] [place] PCP - Generalmily Medicine06/08/21Te MemberRelationshipSpecialtyStart DateEnd [facility] [address] [place] PCP - GeneralFamily Medicine01/05/25 Team Status: Active Member Role Status Dates Gilberto Agustin DO Attending Provider Active Sta rt: December 06, 2024 Team Status: Inactive Member Role Status Dates Leila Lambert MD Attending Provider Active St art: February 22, 2025 End: February 22, 2025Team MemberRelationshipSpecialtyStart DateEnd [facility] [address] [place] PCP - Generalmily Medicine01/05/25Team MemberRelationshipSpecialtyStart DateEnd [facility] [address] [place], [place] PCP - [facility] Medicine01/05/25Team MemberRelationshipSpecialtyStart DateEnd [facility] [address] [place], [place] PCP - Generalmily Medicine01/05/25Team MemberRelationshipSpecialtyStart [facility] [address] [facility] [facility] [place] [place] PCP - [facility] Medicine01/05/25Team MemberRelationshipSpecialtyStart [facility] [address] [place], [place] PCP - Generalmily Medicine01/05/25Team MemberRelationshipSpecialtyStart DateEnd [facility] Adrian Castano CNP [address] [address] PCP - GeneralInternal Medicine01/05/23 Leila Lambert MD ReferringUrology03/03/22 [facility] [address] [place] [address] 01/05/23Team MemberRelationshipSpecialtyStart DateEnd [facility] [address] [place] PCP - GeneralFamily Medicine04/10/25Team MemberRelationshipSpecialtyStart DateEnd Date [facility] [address] [place] PCP - Generalmily Medicine04/10/25Team MemberRelationshipSpecialtyStart DateEnd Date [facility] [address] [place] PCP - GeneralFamily Medicine04/10/25Te MemberRelationshipSpecialtyStart DateEnd Date [facility] [address] [place] PCP - Generalmily Medicine04/10/25Te MemberRelationshipSpecialtyStart DateEnd Date [facility] [address] [place] PCP - Generalmily Medicine04/10/25Te MemberRelationshipSpecialtyStart DateEnd [facility] [address] [place] PCP - GeneralFamily Medicine04/10/25 (unrecognized sect ion and content) No Status Records FoundNo Status Records FoundNo Status Records FoundNo Status Records FoundNo Status Records FoundNo Status Records FoundNo Status Records FoundNo Status Records FoundNo Status Records FoundNo Status Records FoundNo Status Records FoundNo Status Records Found INFORMATION SOURCE (unrecogn ized section and content) DATE CREATED AUTHOR 02/06/2023 [facility] DATE CREATED AUTHOR AUTHOR'S ORGANIZ ATION 02/21/2023 [facility] DATE CREATED AUTHOR AUTHOR'S ORGANIZ ATION 10/11/2024 [facility] DATE CREATED AUTHOR AUTHOR'S ORGANIZ ATION 10/19/2024 [facility] DATE CREATED AUTHOR AUTHOR'S ORGANIZ ATION 01/16/2025 [facility] DATE CREATED AUTHOR AUTHOR'S ORGANIZ ATION 02/28/2025 [facility] DATE CREATED AUTHOR AUTHOR'S ORGANIZ ATION 03/09/2025 [facility] DATE CREATED AUTHOR AUTHOR'S ORGANIZ ATION 03/17/2025 [facility] DATE CREATED AUTHOR AUTHOR'S ORGANIZ ATION 04/12/2025 [facility] DATE CREATED AUTHOR AUTHOR'S ORGANIZ ATION 09/19/2025 [facility] DATE CREATED AUTHOR AUTHOR'S ORGANIZ ATION 09/23/2025 [facility] DATE CREATED AUTHOR AUTHOR'S ORGANIZ ATION 10/10/2025 [facility] Goals (unrecognized section and content) Goals [...] BE BASED ON THE PRIMARY CLINICAL RECORDS. [email or web address] provides no warranty or guarantee of the accuracy or completeness of information in this document.
--- NOTE | 2025-10-31 09:06 | PM.CN ---
Consult Note: HPI Data of Consult Patient: new to practice Consult date: 10/31/25 Requesting Physician: Catalina Rico NP Primary Care Provider: Non-Staff Physician, MD Consult Narrative Reason for consult: LLE pain Narrative: Salo Castro a 65 year old male presents for evaluation of low back and LLE pain as referred by Dr Granda. Patient noting low back pain for years, worsening LLE pain over the last 1 year. Patient has no prior imaging of lumbar spine, no recent PT. Patient notes pain 6/10 increasing to 10/10 with standing, walking, activity, sleep. notes tingling neelde pain to LLE. pt unable to take NSAIDs, finding mild relief to asa and tylenol. cc:: CC: Catalina Rico NP Review of Systems ROS Musculoskeletal Reports: back pain and extremity pain PFSH PFS Medical History (Updated 10/31/25 @ 09:22 by Catalina Rico NP) Prostate tumor ?D49.59 - Neoplasm of unspecified behavior of other genitourinary organ (ICD-10) EDWARDS (dyspnea on exertion) ?R06.09 - Other forms of dyspnea (ICD-10) Left ankle pain ?M25.572 - Pain in left ankle and joints of left foot (ICD-10) Arthritis ?M19.90 - Unspecified osteoarthritis, unspecified site (ICD-10) Migraine ?G43.909 - Migraine, unspecified, not intractable, without status migrainosus (ICD-10) GERD (gastroesophageal reflux disease) ?K21.9 - Gastro-esophageal reflux disease without esophagitis (ICD-10) Hypertension ?I10 - Essential (primary) hypertension (ICD-10) High cholesterol ?E78.00 - Pure hypercholesterolemia, unspecified (ICD-10) Poor historian ?Z78.9 - Other specified health status (ICD-10) Prostate cancer ?C61 - Malignant neoplasm of prostate (ICD-10) Neuropathy ?G62.9 - Polyneuropathy, unspecified (ICD-10) Equinus contracture of ankle ?M24.573 - Contracture, unspecified ankle (ICD-10) Osteoarthritis of left ankle and foot ?M19.072 - Primary osteoarthritis, left ankle and foot (ICD-10) Surgical History History of ankle surgery (12/11/24) ?Z98.890 - Other specified postprocedural states (ICD-10) History of esophagogastroduodenoscopy (EGD) ?Z98.890 - Other specified postprocedural states (ICD-10) History of colonoscopy ?Z98.890 - Other specified postprocedural states (ICD-10) History of gastric surgery ?Z98.890 - Other specified postprocedural states (ICD-10) Hx of prostate biopsy ?Z98.890 - Other specified postprocedural states (ICD-10) H/O transurethral resection of prostate ?Z98.890 - Other specified postprocedural states (ICD-10) ?Z90.79 - Acquired absence of other genital organ(s) (ICD-10) H/O arthroscopy (~2019) ?Z98.890 - Other specified postprocedural states (ICD-10) Family History Other Family history of cancer Social History Within the past year, how often did you have a drink containing alcohol: never Score interpretation: A score less than 4 is consistent with normal alcohol consumption. Smoking status: Former smoker Non-prescribed substance use: denies use Previous occupational history: retired Highest level of school completed/degree received: high school graduate Meds Home Medications and Allergies Home Medications ?Medication ?Instructions ?Recorded ?Confirmed ?Type atorvastatin 10 mg tablet 10 mg PO DAILY 12/06/24 02/22/25 History lisinopril 10 mg tablet 10 mg PO DAILY 12/06/24 02/22/25 History mirabegron 50 mg tablet,extended 50 mg PO DAILY 12/06/24 02/22/25 History release 24 hr (Myrbetriq) tamsulosin 0.4 mg capsule (Flomax) 0.4 mg PO DAILY 12/06/24 02/22/25 History doxycycline hyclate 100 mg capsule 100 mg PO BID 7 days #14 caps 02/22/25 Rx Allergies Allergy/AdvReac Type Severity Reaction Status Date / Time No Known Drug Allergies Allergy Verified 02/12/25 09:04 Exam Constitutional Documenting provider has reviewed patient's vital signs: yes Common normals: no apparent distress, oriented x3 and alert General appearance: cooperative HENMT Common normals: normocephalic, hearing grossly normal bilaterally and moist oral mucous membranes Head and scalp: normocephalic Eye Common normals: PERRL Pupil: PERRL Neck & C-Spine Common normals: full ROM General: normal visual inspection Chest Common normals: inspection of chest normal Respiratory Common normals: normal respiratory effort, no retractions and no use of accessory muscles Back & Pelvis Lumbar spine/lower back: ROM limited, pain with ROM, lumbar spinal tenderness and straight leg raise positive left Other: positive facet loading decreased sensation noted to left L4,5,S1 strength 4/5 in LLE and 5/5 in RLE Extremity Other: no significant edema, discoloration, change in nail/hair growth compared to opposite foot/ankle. pt denies hx of hyperalgesia, allodynia, edema, discoloration, temperature/color changes. Neuro Common normals: oriented x3 Sensorium/orientation: alert Psych Common normals: mental status grossly normal, thought process normal, cooperative, affect normal, speech normal and activity/motor behavior normal Speech: normal speech Thought process: normal thought process Results Imaging Left Ankle MRI: Attestation: I have reviewed the pertinent imaging results. Radiologist's impression: There is full thickness chondromalacia on both sides of the joint space with subcortical cystic change along the posterior aspect of the talar dome and posterior aspect of the distal tibia. This is slightly worse when compared to the prior exam. Subchondral edema is noted along the subtalar joint along the anterior process of the calcaneus. This is similar to the prior exam. There is thickening of the anterior tibial tendon. The tendon is intact without significant edema. This is more pronounced when compared to the prior exam suggesting a long standing tendinopathy. Additional Findings Additional findings: If on a controlled substance or opioids, I have checked an [place] report on this patient and there are no aberrancies noted in the prescribing history.??If on a controlled substance or opioid a drug screen was completed and reviewed within the last year, and if there has not been a drug screen completed we ordered one today to monitor higher risk, state monitored pain medication use. As part of providing excellent, safe, comprehensive care, the following was completed at our patient's visit: 1. A medication reconciliation and review to ensure accurate knowledge of current/active medications, including asking our patients to inform us about any wkfw-qkz-gfaxeey medications or herbal remedies/nutritional supplements/alternative remedies. 2. A review to specifically ensure our patients have had annual screening for screening for depression, screening for tobacco use, and screening for unhealthy alcohol use. For concerning screenings had a discussion with the patient, provided patient education, and recommended follow-up with primary care provider when appropriate. If patient noted with a risk of falling, they received education on strength, gait, and balance training to prevent future risk of falling. Portions of this note may have been carried over from the previous visit and updated as appropriate. Please note this office utilizes paper charting in addition to the electronic medical record. A list of current medications, vitals, and PMH is available there as the clinical staff outside of myself do not have access to [email or web address] charting during the clinic day operations. As part of providing quality comprehensive care the current medications, vitals, and PMH were reviewed in the paper chart. Assessment and Plan Assessment and Plan (1) Low back pain radiating to left lower extremity: (2) Lumbar stenosis with neurogenic claudication: (3) Myalgia, other site: Plan 65 year old male with chronic low back and LLE pain > 12 months. pt has no recent imaging of lumbar spine. has not trialed PT. physical exam and reported history have ruled out concerns of CRPS. at this time I am recommending pt undergo a lumbar xray and trial PT for lumbar stenosis with NC and low back pain with LLE pain. pt agreeable. medications reviewed, start baclofen 5-10mg tid prn pain/spasms. f/u in clinic once PT complete. pt agreeable to plan of care.
== END 2025-10-31 08:52 | disposition home or self-care (01) ==
LOC: PM 08:52
PROVIDERS: Visit Provider Nurse Practitioner
DX: M54.16 Radiculopathy, lumbar region (principal); M48.062 Spinal stenosis, lumbar region with neurogenic claudication; M79.18 Myalgia, other site; M79.605 Pain in left leg; M54.50 Low back pain, unspecified; M85.88 Other specified disorders of bone density and structure, other site; M51.369 Other intervertebral disc degeneration, lumbar region without mention of lumbar back pain or lower extremity pain
CPT/HCPCS: 72110; G0463

== ENCOUNTER 2025-10-31 09:54 | Outpatient (OUT) | payer MEDICARE, MEDICAID, SELFPAY ==
--- OUTSIDE RECORDS SUMMARY | 2025-10-31 10:00 | XMS_ITS ---
Author Organization [facility] Address [address] [place] [address] Care Team Providers Care Detective Chief Name Role Phone Tarik Jim MD Unavailable [phone] Elif Castano CNP Primary Care Provider Active Problems ProblemNoted DateDiagnosed DateProstate uepacq3901/05/2023 Current Treatment and Therapy Plans No current plan information found. Past Treatment and Therapy Plans No past plan information found. Treatment Summaries Prostate cancer (HCC)* Treatment Summary and Survivorship Care Plan for Prostate Cancer Provided by: Mary Iraheta APRN.CNP General Information Patient Name: Salo Castro Patient : 1960 Patient phone: Health Care Providers Primary Care Provider: [facility] Urologic Surgeon: Dr. Tarik Jim Radiation Oncologist: [...] you may be interested in: [email or web address] Teletray Operator Rice Farmer Art therapy Support Groups- Contact Teletray Operator for dates and times. Prepared by: Mary Iraheta APRN.CHIEF LIBRARIAN BRANCH Delivered on: January 05, 2023 - This [...]
--- OUTSIDE RECORDS SUMMARY | 2025-10-31 10:00 | XMS_ITS | Clinical Summary ---
Author Organization [facility] Address [address] [place] [address] Care Team Providers Care Body Builder Apprentice Name Role Phone Yolette Warren MD Primary Care Provider [phone] Allergies Active AllergyReactionsCriticalityNoted EpbbIshgepimGbluwxv50/22/2022 Other reaction(s): COUGH / SNEEZING Guaifenesin-PncveuvDrdnz82/02/2023 Medications MedicationSigDispense QuantityRefillsLast FilledStart DateEnd DateStatus alfuzosin [...] InformationValueDate RecordedSex Assigned at BirthNot on fileLegal WkiVhky0602/10/2023 6:56 PM EDTGender IdentityNot on fileSexual OrientationNot on file Last Filed Vital Signs Vital SignReadingTime TakenCommentsBlood Cbjvnbkf714/7506 9:58 AM EDT Kfacz6716 9:58 AM EDTTemperature--Respiratory Rate--Oxygen Saturation-- Inhaled Oxygen Concentration--Ssvkoy981 kg (245 lb)10/10/2024 8:59 AM ESTHeight 160 cm (5' 3 )10/10/2024 8:59 AM ESTBody Mass Index43. 8:59 AM EST Plan of Treatment Not on file Insurance Care Teams Team MemberRelationshipSpecialtyStart DateEnd Date Yolette Warren MD [address] [place] [address] PCP - GeneralPediatric05/16/24
--- OUTSIDE RECORDS SUMMARY | 2025-10-31 10:00 | XMS_ITS | Clinical Summary ---
Author Organization [employer] tem Address [id number] [address] [place] [address] Care Team Providers Care Nurse Prn Name Role Phone Services, [facility] Primary Care Provider Allergies Active AllergyReactionsCriticalityNoted DateCommentsCodeine-Guaifenesin [...] 5BPH (benign prostatic hyperplasia)01/06/2025History of smoking 01/06/2025Ischemic sdohuoi23/07/2025Acquired hammer toe of left foot06/22/2022 Rqqupdotl48/25/2022Benign prostatic hyperplasia with urinary obstruction 2Chronic pain2Current every day mnbadp8606/22/2022ifficulty xvbjgev1406/22/20229812Tsnuulufizcv55/25/2022isorder of male genital evooox7106/22/2022 Wzazadpykcivivlufcdy27/25/2022rimary cosxuecdhuxz05/25/2022AD (peripheral artery disease)06/22/2022denocarcinoma of wltrlyvt24/25/8154Unvgzufsg64/25/2022 Tljpjmu6906/21/2022MI 40.0-44.9, adult08/30/2019 Encounters DateTypeDepartmentCare FwsdLyifofiywyc25/10/2025 9:00 AM EST - 10/08/2025 11:59 [address] Encounter [facility] [address] [place] [phone] Michelle Bustillo APRN-SARAH Dizziness; Cerebrovascular accident (CVA), unspecified mechanism ([facility]) Discharge Disposition: Home10/08/20254470Xhdnya57/10/2025Telephone [facility] Neurology, A Department of [address] [place] [address] Carole Chacon, BHAVESH Care Patyvpkzsz39/07/2025Telephone [facility] Neurology, A Department of [place] [address] [facility] [address] [place] [address] Amairani Guerra Bcwduldgdxq31/07/2025Telephone [facility] Neurology, A Department of [address] [place] [address] Dayna Gross MD 10/03/2025 7:51 AM EST - 10/05/2025 2:55 PM ESTHospital Encounter [facility] - Acute Care [address] [phone] Sofiya Ayon MD Asif, Muhamid M, MD Dizziness (Primary Dx); Cerebrovascular accident (CVA), unspecified mechanism ([facility]) Discharge Disposition: Home Gpchww0710/03/2025Travelfrom Last 3 Months Immunizations ImmunizationAdministration DatesNext DueInfluenza High Dose Preservative Free IM 10/04/2024Influenza, Injectable, quadrivalent (PF)10/02/2019,09/26/2018 Influenza, Admgjyuarpu13/20/2017Pneumococcal Conjugate 20-uupjkl674RSV, bivalent, protein subunit RSVpreF, diluent reconstituted, 0.5 mL, PF10/04/2024 Family History Medical HistoryRelationNameCommentsTall statureFatherNo Known ProblemsMother Kidney diseaseSisterColon cancerNeg HxRelationNameStatusCommentsFatherDeceased MotherAliveSisterDeceased Social History Tobacco UseTypesPacks/DayYears UsedDateSmoking Tobacco: FormerCigarettes1.550.9 Started: 1974Passive Smoke Exposure: PastSmokeless Tobacco: FormerChewQuit: 2020 Tobacco Cessation:Counseling Given: No Comments:Quit 4 years ago. Alcohol UseStandard Drinks/WeekCommentsNot Currently0 (1 standard drink = 0.6 oz pure alcohol)[facility] UtilitiesAnswerDate RecordedIn the past 12 months has the [place] gas, oil, or water [employer] threatened to shut off services in your home?No02/28/2025Social Connection and Isolation PanelAnswerDate RecordedIn a typical week, how many times do you talk on the phone with family, friends, or neighbors?Three times a week02/24/2025How often do you get together with friends or relatives?Three times a week02/24/2025How often do you attend sabianism or restoration services?Never02/24/2025Do you belong to any clubs or organizations such as sabianism groups, unions, fraternal or athletic groups, or school groups?No 02/24/2025How often do you attend meetings of the clubs or organizations you belong to?Never02/24/2025re you , , , , never , or living with a partner?Never bkyglka6802/24/2025UDIT-CAnswerDate RecordedQ1: How often do you have a [...] medical care, and heating?Not very hard02/24/2025PHQ-2AnswerDate RecordedTotal Xrngv748Fin[facility] [place] of Occupational Health - Occupational Stress QuestionnaireAnswerDate [...] part of a household?No02/28/2025hildcareAnswerDate RecordedDo problems getting children's author make it difficult for you to work [...] InformationValueDate RecordedSex Assigned at BirthNot on fileLegal XxnIlrb87/04/2015 11:30 AM EDTGender IdentityNot on fileSexual OrientationNot on file Last Filed Vital Signs Vital SignReadingTime TakenCommentsBlood Zirjlumo659/8410/05/2025 11:45 AM EST Izaim782810/05/2025 11:45 AM OBHQoomjsbltgj99.5 ??C (97.7 ??F)10/05/2025 11:40 AM ESTRespiratory Enxe643212/05/2024 11:40 AM ESTOxygen Rbpukfdgks05%10/05/2025 11:45 AM ESTInhaled Oxygen Concentration--Vbtyzl412.2 kg (247 lb 6.4 oz)10/05/2025 5:32 AM ETUOsklja687 cm (5' 3 )10/03/2025 2:08 PM ESTBody Mass Index43.82 10/03/2025 2:08 PM EST Plan of Treatment DateTypeDepartmentCare Team (Latest Contact Info)Gbdhunaladw67/15/2025 1:30 PM ESTOffice Visit [facility], [facility] Department of [place] [address] [place] [phone] Akiko Santacruz PA-C [address] [place] [address] [address] [place] [address] 01/29/2026 11:00 AM ESTOffice Visit [facility] [place] [address] Dayna Gross MD [address] [place] [address] [address] [place] [address] Health MaintenanceDue DateLast DoneCommentsAdult BMI Follow Up Plan1977 DTaP,Tdap and Td Vaccines (1 - Tdap)1978Zoster (Shingles) Vaccine (1 of 2) 1978Fall Risk Gdsmplyml45/26/2024OVID-19 Vaccine (4 - season) /04/2024, 03/21/2021, 02/21/2021Influenza Opoctqe0607/30/2025 10/04/2024, 10/02/2019, 09/26/2018, Additional history existsDepression Ffefowbqi06Statin Use: Zfycmpsnoodina93/25/202604/ Tobacco Qmqlvafjc55/dult BMI Remplaucx44 Osntpdbykxl95, 09/11/2024, 08/05/2017RSV ( or age 60+ yrs)Vfshrdhgf70/06/2024bdominal Aortic Aneurysm (AAA) ScreenCompleted 10/05/2025, 10/06/2018 Goals GoalPatient Goal TypeAssociated ProblemsRecent ProgressPatient-Stated?Author Home with self care Sary Nielsen LSW Note: Evaluation of progress towards goal: Patient will return home with self care Medical Devices Not on file Procedures Procedure NamePriorityDate/TimeAssociated DiagnosisCommentsUS RETROPERITONEAL AIBSHJOEmhjjhp73/07/2025 12:06 PM EST CBC WITH AUTO MPHSTQUPYJPNGeqxoow49/07/2025 4:37 AM EST OZTKIDAHZSnnqwjc23/07/2025 4:37 AM EST COMPREHENSIVE METABOLIC RMNTQOnjkddd39/07/2025 4:37 AM EST EXTRA TUBES SST KVASsvtrnm86/07/2025 4:36 AM EST EXTRA TUBES BLUE WACPzsjgox32/07/2025 4:36 AM EST EXTRA GCWOIVaqdxim23/07/2025 4:36 AM EST RESP PATHOGENS PANEL/WHNL-NKD-8Ftqnsam06/06/2025 5:53 PM EST ECHO COMPLETE W EVEXWHWIWphiepg71/06/2025 1:30 PM EST EXTRA TUBES BLUE ZRLLuzqhka93/06/2025 5:54 AM EST EXTRA FWCJEEuqcdkv80/06/2025 5:54 AM EST CBC WITH AUTO MOMPVPOCPGHPGzwlkiz28/06/2025 5:54 AM EST HTBOZFWHZEvbcrkv79/06/2025 5:54 AM EST COMPREHENSIVE METABOLIC OZTEUSisqhck35/06/2025 5:54 AM EST XR CHEST 1 TGJryhrpv54/05/2025 6:44 PM EST MR BRAIN WO VHJKZZBA79/05/2025 1:38 PM EST TROP I, HIGH SENSITIVITY 1 WHISRXGW97/05/2025 9:09 AM EST BEDSIDE DPTQSKRRjiakvj22/05/2025 8:12 AM EST ECG 12-SIAIOHMX93/05/2025 8:10 AM ESTCT CTA EHLSUFMIYBG62/05/2025 8:09 AM EST HEMOGLOBIN I1KKzg-Fy97/05/2025 8:06 AM EST LIPID PROFILEAdd-On10/03/2025 8:06 AM EST VITAMIN D 25 HYDROXYAdd-On10/03/2025 8:06 AM EST VITAMIN A93Idr-Kv68/05/2025 8:06 AM EST THYROID PROFILE INCLUDES TSH LV9Ieb-Ez75/05/2025 8:06 AM EST TROPONIN I, HIGH SENSITIVITY 0 HCXZUXQZ14/05/2025 8:06 AM EST LIVER ZRMARZXTY14/05/2025 8:06 AM EST CBC WITH AUTO UFZBIKRSUBOBZIMH06/05/2025 8:06 AM EST UGJZTTSS72/05/2025 8:06 AM EST PROTIME & CDVRFLY9610/03/2025 8:06 AM EST BASIC METABOLIC NXJXDSZSK32/05/2025 8:06 AM EST TROPONIN I, HIGH SENSITIVITY 0 LYLGCCUE68/05/2025 8:[address] CTA UFPZEAPM95/05/2025 8:[address] BRAIN WO CONT STROKE DNHSVOMWZ62/05/2025 7:50 AM EST PROVATION WXUQVMDVEJPDkbbnaf06/14/2024 9:47 AM EDT from Last 3 Months [...] 12:34 PM Authorizing ProviderResult TypeResult StatusAngela Keny ISOBUTYLENE OPERATOR CHIEF-CNPIMG US ORDERABLESFinal Result * (ABNORMAL) CBC auto differential (10/05/2025 4:37 AM EST) Only the most recent of3 resultswithin the time period is included. ComponentValueRef RangeTest MethodAnalysis TimePerformed AtPathologist Signature WBC3.9(L)4 - 11 X10^9/L112/05/2024 5:28 AM [facility] RBC Count4.104.1 - 5.7 X10^12/L112/05/2024 5:28 AM ESTUNIVERSITY [facility] CENTERHemoglobin13.013 - 17 g/dL10/05/2025 5:28 AM ESTPROEMANUEL MEDICAL CENTERHematocrit37.0(L)39 - 50 %10/05/2025 5:28 AM ESTUNIVERSITY HOSPITALS [facility]AU[facility] MEDICAL CENTERMCV9080 - 100 fL10/05/2025 5:28 AM ESTPROEMANUEL MEDICAL CENTERMCH31.727 - 34 pg10/05/2025 5:28 AM ESTPROEMANUEL MEDICAL CENTERMCHC35.232 - 36 g/dL10/05/2025 5:28 AM ESTUNIVERSITY HOSPITALS GEAUGA MEDICAL CENTERRDW13.211.5 - 15 %10/05/2025 5:28 AM [facility] REHABILITATIONPlatelet Eftfo012(L)150 - 450 X10^9/L112/05/2024 5:28 AM EST [facility]ENTERMPV7.97 - 12 fL10/05/2025 5:28 AM EST [facility]ENTERNeutrophils %64.4%10/05/2025 5:28 AM EST [facility]ENTERLymphocytes %20.8%10/05/2025 5:28 AM EST [facility]ENTERMonocytes %10.4%10/05/2025 5:28 AM EST [facility]ENTEREosinophils %3.5%10/05/2025 5:28 AM EST [facility]ENTERBasophils %0.9%10/05/2025 5:28 AM EST [facility] CENTERNeutrophils Absolute (A)2.51.5 - 6.6 X10^9/L 10/05/2025 5:28 AM [facility] REHABILITATIONLymphocytes Absolute0.8 (L)1.0 - 3.5 X10^9/L112/05/2024 5:28 AM ESTUN[facility]ERSITY [facility] Monocytes Absolute0.40.0 - 0.9 X10^9/L112/05/2024 5:28 AM ESTUNIVERSITY HOSPITALS GEAU[facility] MEDICAL CENTEREosinophils Absolute0.10.0 - 0.4 X10^9/L112/05/2024 5:28 AM EST [facility] CENTERBasophils Absolute0.00.0 - 0.2 X10^9/L 10/05/2025 5:28 AM [facility] REHABILITATIONDifferential Type AUTOMATED JPNGOOHPGMOF85/07/2025 5:28 AM [facility] Specimen (Source)Anatomical Location / LateralityCollection Method / Volume Collection TimeReceived TimeBloodVenous blood / UnknownVenipuncture / Unknown 10/05/2025 4:37 AM EST10/05/2025 5:18 AM EST Narrative Authorizing ProviderResult TypeResult StatusAngela Keny ISOBUTYLENE OPERATOR CHIEF-CNPLAB BLOOD ORDERABLESFinal ResultPerforming OrganizationAddressCity/State/ZIP CodePhone Number [facility] [address] [facility] [place] [address], * Magnesium (10/05/2025 4:37 AM EST) Only the most recent of2 resultswithin the time period is included. ComponentValueRef RangeTest MethodAnalysis TimePerformed AtPathologist Signature MAGNESIUM1.81.8 - 2.6 mg/dL10/05/2025 5:43 AM ESTAULTMAN ALLIANCE COMMUNITY HOSPITALpecimen (Source)Anatomical Location / LateralityCollection Method / VolumeCollection TimeReceived TimeBloodVenous blood / UnknownVenipuncture / Rlwepsm7610/05/2025 4:37 AM EST10/05/2025 5:18 AM EST Narrative Authorizing ProviderResult TypeResult StatusAngela [place] ISOBUTYLENE OPERATOR CHIEF-CNPLAB BLOOD ORDERABLESFinal ResultPerforming OrganizationAddressCity/State/ZIP CodePhone Number [facility] [address] [place] [address], * (ABNORMAL) Comprehensive metabolic panel (10/05/2025 4:37 AM EST) Only the most recent of2 resultswithin the time period is included. ComponentValueRef RangeTest MethodAnalysis TimePerformed AtPathologist Signature JEMMZV219673 - 146 mmol/L112/05/2024 5:43 AM [facility] REHABILITATIONPOTASSIUM3.93.5 - 5.0 mmol/L112/05/2024 5:43 AM ESTUNIVERSITY HOSPITALS GEAUGA MEDICAL CENTERCHLORIDE10598 - 109 mmol/L112/05/2024 5:43 AM ESTUNIVERSITY HOSPITALS GEAUGA MEDICAL CENTERCARBON ADGYCWA2819 - 32 mmol/L112/05/2024 5:43 AM EST [facility] CENTERANION GAP95 - 15 mmol/L112/05/2024 5:43 AM EST [facility] CENTERBLOOD UREA EKLRVBSM877 - 27 mg/dL10/05/2025 5:43 AM ESTUNIVERSITY HOSPITALS GEAUGA MEDICAL CENTERCREATININE1.180.70 - 1.20 mg/dL 10/05/2025 5:43 AM [facility]ATIONComment:METHOD TRACEABLE TO IDMS AOFRXFVYZITNJAZ491(H)65 - 99 mg/dL10/05/2025 5:43 AM EST [facility] CENTERCALCIUM8.88.5 - 10.5 mg/dL10/05/2025 5:43 AM [facility] REHABILITATIONTOTAL PROTEIN6.16.0 - 8.0 g/dL10/05/2025 5:43 AM [facility] FOR REHABILITATIONALBUMIN3.63.2 - 5.3 g/dL10/05/2025 5:43 AM [facility] REHABIL[facility]ATIONALKALINE ZPLSEVQTDNG9864 - 130 U/L 10/05/2025 5:43 AM [facility]ATIONAST15<=41 U/L112/05/2024 5:43 AM ESTUNIVERSITY HOSPITALS GEAUGA MEDICAL CENTERALT18<=40 U/L112/05/2024 5:43 AM [facility] REHABILITATIONBILIRUBIN,TOTAL1.00.3 - 1.2 mg/dL 10/05/2025 5:43 AM [facility]ATIONEGFR Non-Race Dependent 68>=60 ml/min/1.73sq.m112/05/2024 5:43 AM [facility] Comment: eGFR not reported due to non-numeric value for Creatinine. Reported eGFR is based on the CKD-EPI 2020 equation that does not use a race coefficient. Specimen (Source)Anatomical Location / LateralityCollection Method / Volume Collection TimeReceived TimeBloodVenous blood / UnknownVenipuncture / Unknown 10/05/2025 4:37 AM EST10/05/2025 5:18 AM EST Narrative Authorizing ProviderResult TypeResult StatusAngela Keny ISOBUTYLENE OPERATOR CHIEF-CNPLAB BLOOD ORDERABLESFinal ResultPerforming OrganizationAddressCity/State/ZIP CodePhone Number [facility] [address] [facility] [place] [address], * SST TOP (10/05/2025 4:36 AM EST)ComponentValueRef RangeTest MethodAnalysis TimePerformed AtPathologist SignatureExtra TubeAuto Jfwcilot24/07/2025 6:03 AM [facility] TOLEDOpecimen (Source)Anatomical Location / LateralityCollection Method / VolumeCollection TimeReceived TimeBloodVenous blood / Bllxuuk3010/05/2025 4:36 AM EST10/05/2025 5:19 AM EST Narrative Authorizing ProviderResult TypeResult StatusMuhamid M River OVIEDOLAB BLOOD ORDERABLESFinal ResultPerforming OrganizationAddressCity/State/ZIP CodePhone Number [address] [place] [address], [place] * Light Blue Top (10/05/2025 4:36 AM EST) Only the most recent of2 resultswithin the time period is included. ComponentValueRef RangeTest MethodAnalysis TimePerformed AtPathologist Signature Extra TubeAuto Qrdtizmp66/07/2025 6:03 AM [facility] Specimen (Source)Anatomical Location / LateralityCollection Method / Volume Collection TimeReceived TimeBloodVenous blood / Manvpde1810/05/2025 4:36 AM EST 10/05/2025 5:19 AM EST Narrative Authorizing ProviderResult TypeResult StatusMuhamid M River OVIEDOLAB BLOOD ORDERABLESFinal ResultPerforming OrganizationAddressCity/State/ZIP CodePhone Number [address] [place] [address], [place] * Resp Pathogens Panel/SARS CoV-2 (10/04/2025 5:53 PM EST)ComponentValueRef RangeTest MethodAnalysis TimePerformed AtPathologist SignatureSARS COV 2 BY PCRNot DetectedNot Ibvuxuzl05/06/2025 11:30 PM [facility] LABORATORYADENOVIRUSNot DetectedNot Rntpbwoe57/06/2025 11:30 PM [facility] LABORATORYCORONAVIRUS 229ENot DetectedNot Fnyzqoxs65/06/2025 11:30 PM [facility] LABORATORYCORONAVIRUS JLT6Iig DetectedNot Zuvpvsfo18/06/2025 11:30 PM [facility] LABORATORYCORONAVIRUS VB91Rch DetectedNot Phkwdrpw25/06/2025 11:30 PM [facility] LABORATORYCORONAVIRUS OV55Lth DetectedNot Lmevvave78/06/2025 11:30 PM [facility] LABORATORYHUMAN METAPNEUVIRUSNot DetectedNot Detected 10/04/2025 11:30 PM [facility] LABORATORYRHINO/ENTEROVIRUSNot DetectedNot Jlsmlssp33/06/2025 11:30 PM [facility] INFLUENZA ANot DetectedNot Xnhhyfvm54/06/2025 11:30 PM [facility] LABORATORYINFLUENZA BNot DetectedNot Kfwijrhu76/06/2025 11:30 PM [facility] LABORATORYPARAINFLUENZA 1Not DetectedNot Detected 10/04/2025 11:30 PM [facility] LABORATORYPARAINFLUENZA 2Not DetectedNot Ulwijylg45/06/2025 11:30 PM [facility] PARAINFLUENZA 3Not DetectedNot Lbvwcgzt66/06/2025 11:30 PM [facility] LABORATORYPARAINFLUENZA 4Not DetectedNot Jbbunvbf81/06/2025 11:30 PM [facility] LABORATORYRESP SYNCYTIAL VIRUSNot DetectedNot Ymvkmxwy79/06/2025 11:30 PM [facility] LABORATORYBORD PARAPERTUSSISNot DetectedNot Rldofhhc69/06/2025 11:30 PM [facility] LABORATORYBORDETELLA PERTUSSISNot DetectedNot Ysdwslot30/06/2025 11:30 PM [facility] LABORATORYCHLAM.PNEUMONIAENot DetectedNot Svlrymso04/06/2025 11:30 PM [facility] LABORATORYMYCOPLASMA PNEUMONIAENot DetectedNot Pandfyow18/06/2025 11:30 PM [facility] LABORATORYSpecimen (Source)Anatomical Location / LateralityCollection Method / VolumeCollection TimeReceived TimeSwabNasopharyngeal structure / Obwsjzf9310/04/2025 5:53 PM EST10/04/2025 6:31 PM EST [facility] LABORATORY - 10/04/2025 11:30 PM [...] other pathogens. The agent(s) detected by the [employer] RP2.1 may not be the definite cause [...] tract infection. Authorizing ProviderResult TypeResult StatusAngela Keny ISOBUTYLENE OPERATOR CHIEF-CNPMICROBIOLOGY - GENERAL ORDERABLESFinal ResultPerforming OrganizationAddressCity/State/ZIP Code Phone Number [facility] [address] [place] [address], * Echo complete W/ contrast (10/04/2025 1:30 PM EST)ComponentValueRef RangeTest MethodAnalysis TimePerformed AtPathologist SignatureLVOT stroke muoosc28.51ml XCELERALV Systolic Dskmdm85.71bFEHDZCHQSR94%GRMYJFTMT5523 - 44 %XCELERALV Diastolic Mrahvh03.20zKUHDTVUGYPLAn6.215.61 - 7.79 cmXCELERALVIDs2.513.28 - 4.97 cmXCELERAIVS1.290.6 - 1.1 cmXCELERAPW1.060.6 - 1.1 cmXCELERALVOT diameter 2.49lqZNVYZDMGGI15.30cm/sXCELERAMV TDI E' (medial)5.71cm/sXCELERALA Volume Index24.4mL/s0JJUCNLIM/A ratio1.04XCELERAE wave deceleration yhtj043.00msec XCELERAMV Peak E Vel68.40cm/sXCELERAMV Peak A Vel66.00cm/sXCELERALA size4.10cm XCELERAAortic root2.60cmXCELERALA uueinw87.19bi9TZJWPAZXM diastolic dimension (basal)38.7qlHDUDCGQPTTAU8.26cmXCELERAAV peak vxi625.00cm/sXCELERALVOT peak vel0.95m/sXCELERAAV VTI24.00cmXCELERALVOT peak VTI19.60cmXCELERAAV mean gradient3.00mmHgXCELERAAV peak gradient5.38mmHgXCELERAAV valve area3.10XCELERA Valve area - Index1.4XCELERAMV pressure 1/2 time71.00msXCELERAMV valve area p 1/2 method3.06eh2SWYTEARGU Peak Vel2.5m/sXCELERATR peak iosyambw44.40mmHg XCELERALV ESV A2C48.40mLXCELERALV ESV A4C54.30mLXCELERALV RWT 2D50.36XCELERA Echo EF Iabnlhiri23%XCELERAAV Velocity Ratio0.82XCELERALeft Ventricle Mass 173.497638318965059cRPIBHDVNeudjiopzymvdmdb Septum Diastolic Thickness by 2D 12.9cmXCELERATR max vel2.50m/sXCELERAMV E' average8.0cm/sXCELERAEst. RA plnlcuyf0vvChWISTLEJGI area18.1xy9MFVNLZVVN Peak Systolic Qwybnlow11wcBg XCELERAZLVIDS-3.76XCELERAZLVIDD-4.51XCELERAEnergy loss index11.20XCELERA Anatomical RegionLateralityModalityChestN/AUltrasoundSpecimen (Source) Anatomical [...] mildly to moderately reduced. ?Mitral??Valve: There is fayda-mu-dxmv regurgitation. There is no evidence of mitral [...] Mitral valve structure is normal. There is gfsyr-nw-kjpk regurgitation. There is no evidence of mitral [...] 6:58 PM Authorizing ProviderResult TypeResult StatusMichelle Bustillo ISOBUTYLENE OPERATOR CHIEF-CNPIMG DIAGNOSTIC IMAGING ORDERABLESFinal Result * MR brain [...] 1:52 PM Authorizing ProviderResult TypeResult StatusMichelle Bustillo ISOBUTYLENE OPERATOR CHIEF-CNPIMG MRI ORDERABLESFinal Result * Troponin I, High Sensitivity 1 Hour (10/03/2025 9:09 AM EST)ComponentValueRef RangeTest MethodAnalysis TimePerformed AtPathologist SignatureTROPONIN I, HIGH SENSITIVITY4<21 ng/L112/03/2024 9:48 AM [facility] Specimen (Source)Anatomical Location / LateralityCollection Method / Volume Collection TimeReceived TimeBloodVenous blood / UnknownVenipuncture / Unknown 10/03/2025 9:09 AM EST10/03/2025 9:12 AM EST Narrative Authorizing ProviderResult TypeResult StatusFarzad Fox MDLAB BLOOD ORDERABLESFinal ResultPerforming OrganizationAddressCity/State/ZIP CodePhone Number [facility] [address] * (ABNORMAL) Bedside Glucose *Place/Obtain serum glucose if >500 per glucometer. (10/03/2025 8:12 AM EST)ComponentValueRef RangeTest MethodAnalysis Time Performed AtPathologist SignatureBedside Glucose (POC)177(H)65 - 99 mg/dL 10/03/2025 8:14 AM [facility] TOLEDOpecimen (Source) Anatomical Location / LateralityCollection Method / VolumeCollection Time Received Timearterial/sqaigkudx97/05/2025 8:12 AM EST10/03/2025 8:14 AM EST Narrative Authorizing ProviderResult TypeResult StatusPOINT OF CARE TEST ORDERABLESFinal ResultPerforming OrganizationAddressCity/State/ZIP CodePhone Number [facility] [address] [place] [address], [place] * EKG 12 lead (10/03/2025 8:10 [...] 10/03/2025 8:12 AM Authorizing ProviderResult TypeResult Nasir ESPRAZA CT ORDERABLES Final Result * Troponin I, High Sensitivity 0 Hour (10/03/2025 8:06 AM EST)ComponentValueRef RangeTest MethodAnalysis TimePerformed AtPathologist SignatureTROPONIN I, HIGH SENSITIVITY4<21 ng/L112/03/2024 8:39 AM [facility] Specimen (Source)Anatomical Location / LateralityCollection Method / Volume Collection TimeReceived TimeBloodVenous blood / UnknownVenipuncture / Unknown 10/03/2025 8:06 AM EST10/03/2025 8:08 AM EST Narrative Authorizing ProviderResult TypeResult Nasir Fox MDWAMEGO HEALTH CENTER BLOOD ORDERABLESFinal ResultPerforming OrganizationAddressCity/State/ZIP CodePhone Number [facility] [address] [place] [address], * Thyroid profile includes TSH FT4 (10/03/2025 8:06 AM EST)ComponentValueRef RangeTest MethodAnalysis TimePerformed AtPathologist SignatureFREE [id number] - 1.60 ng/dL10/03/2025 2:52 PM ESTUNIVERSITY [facility]ENTERTSH3.39 0.49 - 4.67 uIU/mL10/03/2025 2:52 PM [facility] Specimen (Source)Anatomical Location / LateralityCollection Method / Volume Collection TimeReceived TimeBloodVenous blood / UnknownVenipuncture / Unknown 10/03/2025 8:06 AM EST10/03/2025 8:08 AM EST Narrative Authorizing ProviderResult TypeResult StatusMichelle Bustillo ISOBUTYLENE OPERATOR CHIEF-CNPLAB BLOOD ORDERABLESFinal ResultPerforming OrganizationAddressCity/State/ZIP CodePhone Number SEDGW[facility]ITALAbram [facility] [address] [place] [address], * (ABNORMAL) Vitamin D 25 hydroxy (10/03/2025 8:06 AM EST)ComponentValueRef RangeTest MethodAnalysis TimePerformed AtPathologist SignatureVITAMIN D 25 HYD TOT<7.0(L)30.0 - 100.0 ng/mL10/03/2025 7:48 PM [facility] LABORATORYSpecimen (Source)Anatomical Location / LateralityCollection Method / VolumeCollection TimeReceived TimeBloodVenous blood / UnknownVenipuncture / Nzzcche5210/03/2025 8:06 AM EST10/03/2025 8:08 AM EST Narrative [facility] - 10/03/2025 7:48 PM EST Vitamin D status 25 [place] Vitamin D Deficiency <20 ng/mL Insufficiency ? 20-29 ng/mL Sufficiency ? 30-100 ng/mL Toxicity >100 ng/mL NOTE: A pediatric reference range has not been established by the care manager cna of this kit. The [employer] recommends a Vitamin D level of = or >20ng/mL in infants and children. Authorizing ProviderResult TypeResult StatusMichelle Bustillo ISOBUTYLENE OPERATOR CHIEF-CNPLAB BLOOD ORDERABLESFinal ResultPerforming OrganizationAddressCity/State/ZIP CodePhone Number [facility] [address] [place] [address], * APTT (10/03/2025 8:06 AM EST)ComponentValueRef RangeTest MethodAnalysis Time Performed AtPathologist WirqimtdoFLGA7841 - 37 sec10/03/2025 8:27 AM EST [facility] (Source)Anatomical Location / LateralityCollection Method / VolumeCollection TimeReceived TimeBloodVenous blood / UnknownVenipuncture / Ooqwsjt7810/03/2025 8:06 AM EST10/03/2025 8:08 AM EST Narrative Authorizing ProviderResult TypeResult StatusFarzad VALDERRAMA BLOOD ORDERABLESFinal ResultPerforming OrganizationAddressCity/State/ZIP CodePhone Number [address] [address], * Protime & INR (10/03/2025 8:06 AM EST)ComponentValueRef RangeTest Method Analysis TimePerformed AtPathologist CleyqcwmyEQHUEZI76.29.8 - 13.2 sec 10/03/2025 8:27 AM ESTUNIVERSITY HOSPITALS GEAUGA MEDICAL CENTERINR1.00.9 - 1.2 10/03/2025 8:27 AM [facility] (Source) Anatomical Location / LateralityCollection Method / VolumeCollection Time Received TimeBloodVenous blood / UnknownVenipuncture / Eghximb9010/03/2025 8:06 AM EST10/03/2025 8:08 AM EST Narrative Authorizing ProviderResult TypeResult StatusFarzad VALDERRAMA BLOOD ORDERABLESFinal ResultPerforming OrganizationAddressty/State/ZIP CodePhone Number [address] [address], * (ABNORMAL) Hemoglobin A1c (10/03/2025 8:06 AM EST)ComponentValueRef RangeTest MethodAnalysis TimePerformed AtPathologist SignatureHEMOGLOBIN A1C6.2(H)4.4 - 5.6 %10/03/2025 7:49 PM [facility]ORATORYComment: ?ADA Guidelines ?Result ?HgbA1c ? Normal : ? less than 5.7 % ? Prediabetes : ?5.7 % ??to 6.4 % Diabetes : > 6.4 % ?Use with caution in patients with abnormal hemoglobin variants as ??the half-life of red blood cells and in vivo glycation rates are ??affected. EST. AVERAGE IKKKLWS571bg/dL10/03/2025 7:49 PM [facility] LABORATORYSpecimen (Source)Anatomical Location / LateralityCollection Method / VolumeCollection TimeReceived TimeBloodVenous blood / UnknownVenipuncture / Axtfoat8610/03/2025 8:06 AM EST10/03/2025 8:08 AM EST Narrative Authorizing ProviderResult TypeResult StatusKeisha Mancuso PALAB BLOOD ORDERABLESFinal ResultPerforming OrganizationAddressCity/State/ZIP Code Phone Number [facility] [address] [place] [id number], * Vitamin B12 (10/03/2025 8:06 AM EST)ComponentValueRef RangeTest MethodAnalysis TimePerformed AtPathologist SignatureVITAMIN [id number] - 914 pg/mL10/03/2025 7:43 PM [facility] LABORATORYSpecimen (Source)Anatomical Location / LateralityCollection Method / VolumeCollection TimeReceived Time BloodVenous blood / UnknownVenipuncture / Vbtfkwj2510/03/2025 8:06 AM EST 10/03/2025 8:08 AM EST Narrative Authorizing ProviderResult TypeResult StatusMichelle Bustillo ISOBUTYLENE OPERATOR CHIEF-CNPLAB BLOOD ORDERABLESFinal ResultPerforming OrganizationAddressCity/State/ZIP CodePhone Number [facility] [address] [place] [address], [place] [phone] * Liver panel (10/03/2025 8:06 AM EST)ComponentValueRef RangeTest MethodAnalysis TimePerformed AtPathologist SignatureTOTAL PROTEIN6.16.0 - 8.0 g/dL10/03/2025 8:34 AM [facility] REHABIL[facility]ATIONALBUMIN3.53.2 - 5.3 g/dL 10/03/2025 8:34 AM [facility] REHABILITATIONBILIRUBIN,TOTAL1.00.3 - 1.2 mg/dL10/03/2025 8:34 AM [facility] REHABILITATIONALKALINE YZZQXNBDQCB5615 - 130 U/L112/03/2024 8:34 AM [facility] REHABILITATIONAST13<=41 U/L112/03/2024 8:34 AM [facility] ALT17<=40 U/L112/03/2024 8:34 AM [facility] BILIRUBIN,DIRECT0.1<=0.4 mg/dL10/03/2025 8:34 AM [facility] (Source)Anatomical Location / LateralityCollection Method / VolumeCollection TimeReceived TimeBloodVenous blood / UnknownVenipuncture / Chvplzx6310/03/2025 8:06 AM EST10/03/2025 8:08 AM EST Narrative Authorizing ProviderResult TypeResult StatusFarzad VALDERRAMA BLOOD ORDERABLESFinal ResultPerforming OrganizationAddressCity/State/ZIP CodePhone Number [facility] [address] [place] [address], * (ABNORMAL) Lipid profile (10/03/2025 8:06 AM EST)ComponentValueRef RangeTest MethodAnalysis TimePerformed AtPathologist SvmouifwbOVVOTNSJVBR549(L)150 - 200 mg/dL10/03/2025 7:27 PM [facility] EVJBQMXDQFJOLJRSIYMHNO4789 - 150 mg/dL10/03/2025 7:27 PM [facility] LABORATORYHDL NNILOJNZJCZ57>39 mg/dL10/03/2025 7:27 PM [facility]ORATORYComment: HDL <40 mg/dL - High Risk HDL > or = 40mg/dL- Desirable HDL >60 mg/dL - Negative Risk LDL (CALC)61<130 mg/dL10/03/2025 7:27 PM [facility] Comment: LDL <100 mg/dL - Desirable LDL >160 mg/dL - High Risk CHOLESTEROL:HDL2.91.0 - 5.011/03/2025 7:27 PM [facility] LABORATORYVERY LOW AUPFBDVIASR822 - 30 mg/dL10/03/2025 7:27 PM [facility] LABORATORYSpecimen (Source)Anatomical Location / Laterality Collection Method / VolumeCollection TimeReceived TimeBloodVenous blood / UnknownVenipuncture / Okwlohg3310/03/2025 8:06 AM EST10/03/2025 8:08 AM EST Narrative Authorizing ProviderResult TypeResult StatusKeisha Mancuso [facility] BLOOD ORDERABLESFinal ResultPerforming OrganizationAddressCity/State/ZIP Code Phone Number [facility] [address] [place] [address], * (ABNORMAL) Basic Metabolic Panel (10/03/2025 8:06 AM EST)ComponentValueRef RangeTest MethodAnalysis TimePerformed AtPathologist QxzrtfwhwRHSABZ140(L)134 - 146 mmol/L112/03/2024 8:34 AM ESTPROEMANUEL MEDICAL CENTERPOTASSIUM 4.33.5 - 5.0 mmol/L112/03/2024 8:34 AM ESTPROEMANUEL [facility]ENTER SBCLPODG24754 - 109 mmol/L112/03/2024 8:34 AM ESTPROMEDIDAVIES CAMPUSCARBON OFKRJVR6368 - 32 mmol/L112/03/2024 8:34 AM ESTPROMEDIDAVIES CAMPUSANION GAP75 - 15 mmol/L112/03/2024 8:34 AM ESTPROEMANUEL MEDICAL CENTERBLOOD UREA DLPGMHNT357 - 27 mg/dL10/03/2025 8:34 AM ESTPROEMANUEL MEDICAL CENTERCREATININE1.060.70 - 1.20 mg/dL 10/03/2025 8:34 AM [facility] REHABILITATIONComment:METHOD TRACEABLE TO IDMS DYFWZYRNQJNAKGD536(H)65 - 99 mg/dL10/03/2025 8:34 AM EST [facility] CENTERCALCIUM8.78.5 - 10.5 mg/dL10/03/2025 8:34 AM [facility] REHABIL[facility]ATIONEGFR Non-Race Nqqwiyley16>=60 ml/min/1.73sq.m112/03/2024 8:34 AM [facility] Comment: eGFR not reported due to non-numeric value for Creatinine. Reported eGFR is based on the CKD-EPI 2020 equation that does not use a race coefficient. Specimen (Source)Anatomical Location / LateralityCollection Method / Volume Collection TimeReceived TimeBloodVenous blood / UnknownVenipuncture / Unknown 10/03/2025 8:06 AM EST10/03/2025 8:08 AM EST Narrative Authorizing ProviderResult TypeResult StatusFarzad Fox MDWAMEGO [facility] BLOOD ORDERABLESFinal ResultPerforming OrganizationAddressCity/State/ZIP CodePhone Number [facility] [address] [place] [address], * CT angiogram head (10/03/2025 8:01 AM EST)Anatomical RegionLateralityModality Head, Neuro, Vascular, Head and Neck, Neuro CoveraN/AComputed Tomography Specimen (Source)Anatomical Location / LateralityCollection Method / Volume Collection TimeReceived Time10/03/2025 8:09 AM EST Narrative 10/03/2025 8:11 AM EST Examination: ??CT angiogram of the brain ([facility] [place]) Clinical History:Dizziness Comparison:None Contrast:100 mL of Omnipaque 350 administered intravenously. Procedure: ??Multidetector CT angiogram performed through the [place] using 3D reconstructions and source images displayed on a PACS workstation and reviewed by the radiologist. Automatic exposure control (AEC) was utilized. Findings: ??CT ANGIOGRAM OF THE [place]. ??There is no aneurysm or major vessel occlusion of the [place]. ??Flow is demonstrated within the vertebral arteries, basilar artery, and bilateral posterior cerebral arteries, middle cerebral arteries and anterior cerebral arteries. ?? IMPRESSION: 1. ??Negative CT angiogram [facility] [place]. All CT scans at this facility use dose modulation, iterative reconstruction, and/or weight based dosing when appropriate to reduce radiation dose to as low as reasonably achievable. Finalized by Abhinav Beaulieu MD on 10/03/2025 8:11 AM Procedure Note Abhinav Beaulieu MD - 10/03/2025 Examination: CT angiogram of the brain ([facility] [place]) Clinical History:Dizziness Comparison:None Contrast:100 mL of Omnipaque 350 administered intravenously. Procedure: Multidetector CT angiogram performed through the [place] using 3D reconstructions and source images displayed on a PACSworkstation and reviewed by the radiologist. Automatic exposure control(AEC) was utilized. Findings: CT ANGIOGRAM OF THE [place]. There is no aneurysm ormajor vessel occlusion of the [place]. Flow is demonstratedwithin the vertebral arteries, basilar artery, and bilateral posteriorcerebral arteries, middle cerebral arteries and anterior cerebralarteries. IMPRESSION: 1. Negative CT angiogram [facility] [facility] [place]. All CT scans at this facility use dose modulation, iterativereconstruction, and/or weight based dosing when appropriate to reduceradiation dose to as low as reasonably achievable. Finalized by Abhinav Beaulieu MD on 10/03/2025 8:11 AM Authorizing ProviderResult TypeResult StatusFarzad Fox [facility] [facility] ORDER[facility] Final Result * CT brain [...] (Latest Code Status on File) Date ActivatedDate ClxzaxeguycUkrgnysw55/5/2025 3:23 PM10/05/2025 5:01 PM * Full Code Date ActivatedDate InactivatedComments02/27/2025 8:57 PM03/07/2025 6:50 PM * Full Code Date ActivatedDate InactivatedComments02/24/2025 10:21 PM02/27/2025 9:37 AM * Full Code Date ActivatedDate InactivatedComments01/05/2025 11:48 PM2 2:14 PM * Full Code Date ActivatedDate InactivatedComments06/22/2022 12:10 AM06/23/2022 6:44 PM Care Teams Team MemberRelationshipSpecialtyStart DateEnd Services, [facility] [address] [place], [place] PCP - GeneralFamily Medicine04/10/25
--- OUTSIDE RECORDS SUMMARY | 2025-10-31 10:00 | XMS_ITS | Clinical Summary ---
Author Organization [facility] Address [address] [place], [place] [address] Care Team Providers Care Crop Adjuster Name Role Phone Tarik Jim MD Unavailable [phone] Elif Castano CNP Primary Care Provider [phone] Allergies No known active allergies Medications MedicationSigDispense [...] by mouth./5Active Active Problems ProblemNoted DateDiagnosed DateProstate ibhshr4701/05/2023 Social History Tobacco UseTypesPacks/DayYears UsedDateSmoking Tobacco: Every DayCigarettes0.5 48.5Started: 04/29/1977Smokeless Tobacco: Former Tobacco Cessation:Ready to Q uit: Not Asked; Counseling Given: Not Answered Alcohol UseStandard Drinks/WeekCommentsYes6 (1 standard drink = 0.6 oz pure alcohol)PHQ-2AnswerDate RecordedPHQ-2 lqvtr605rea Deprivation Index AnswerDate RecordedNational Score (1-100), lower number is lower risk88 07/06/2023State Score (1-10), lower number is lower cmty36607/06/2023ata from: https://www.neighborhoodatlas.[facility]/. Last address used for oa[address]irw[address]07/06/2023Sex and Gender InformationValueDate RecordedSex Assigned at BirthNot on fileLegal SpwLdqw2003/03/2022 2:41 PM EDT Gender IdentityNot on fileSexual OrientationNot on file Last Filed Vital Signs Vital SignReadingTime TakenCommentsBlood Vzhzwjkd329/68001/23/2025 1:59 PM EST Fpihf529301/23/2025 1:59 PM JLUMelkkvkjhbo97.2 ??C (97.2 ??F)01/23/2025 1:59 PM ESTRespiratory Qtxn095601/23/2025 1:59 PM ESTOxygen Lmwtygngnx16%01/23/2025 1:59 PM ESTInhaled Oxygen Concentration--Xmqshf375.2 kg (229 lb 11.5 oz)01/23/2025 1:59 PM PPVYrtscq407.5 cm (5' 4.75 )03/11/2022 12:55 PM EDTBody Mass Index38.52 03/11/2022 12:55 PM EDT Plan of Treatment DateTypeDepartmentCare Team (Latest Contact Info)Wxvmcqxykpo67/26/2026 10:00 AM ESTOffice Visit Radiation Oncology [address] [place] [address] [place] [address] Jhony Lindsay MD [address] [place] [address] [place] [address] 1 year follow upHealth MaintenanceDue DateLast DoneCommentsAnxiety Screening 1977Depression Slwroqopc42/26/1977Hepatitis C Dgegerkyv67/26/1977 DTaP,Tdap,Td Vaccine (1 - Tdap)1978CT Jbdjilowmjhy80/26/2004Cologuard (FIT-DNA)05/24/20043177Lhwlbymdhwl25/26/2004Colorectal Cancer Kazzrhmhq14/26/2004 Fecal Occult Blood05/24/20047149Ucqwkqfyfokgd69/26/2004Shingrix Vaccine (1 of 2) 2009dvance Directive Mshurmzduc62/01/2025Medicare Advantage Annual Wellness Visit11/29/2024ovid-19 Vaccine ( season)2025 10/04/2024, 03/21/2021, 02/21/2021Influenza Vaccine (#1)511/04/2024, 10/02/2019, 09/26/2018, Additional history existsDiabetes Pdqccypts28/13/2028 04/10/2025, 03/07/2025, 03/06/2025, Additional history existsProstate Cancer Screening Kuqzuqpclb68, 09/06/2023, 02/16/2023, Additional history existsLipid Udskedqpf44, 01/06/2025, 06/23/2022 Abdominal Aortic Aneurysm JrmhumiqiIgdflsyod77/08/2018Pneumococcal Vaccine: 50+ Cohbkfxcr07/06/2024SV QsjatavGmncvbewi63/06/2024 Procedures Procedure NamePriorityDate/TimeAssociated DiagnosisCommentsPSA (OUTSIDE)Routine 01/10/2025 from Last 3 Months or Most Recently Relevant to Health Maintenance Results * PSA (OUTSIDE) (01/10/2025)ComponentValueRef RangeTest MethodAnalysis Time Performed AtPathologist SignaturePSA.0.5Specimen (Source)Anatomical Location / LateralityCollection Method / VolumeCollection TimeReceived TimeBLOOD SPECIMEN / Cpmakoc2801/10/2025 Narrative Authorizing ProviderResult TypeResult StatusCcf ProviderLABORATORYFinal Result from Last 3 Months or Most Recently Relevant to Health Maintenance Insurance Care Teams Team MemberRelationshipSpecialtyStart DateEnd Date Elif Castano CNP [address] [place] [id number] PCP - GeneralInternal Medicine01/05/23 Tarik Jim MD ReferringUrology03/03/[address] [address] 01/05/23
--- OUTSIDE RECORDS SUMMARY | 2025-10-31 10:00 | XMS_ITS | Clinical Summary ---
Author Organization [facility] Address [address] [place] [address] Phone Care Team Providers Care Frame Nailer Name Role Phone Unavailable Primary Care Provider Unavailabl e Social History Tobacco UseTypesPacks/DayYears UsedDateSmoking Tobacco: Never AssessedSex and Gender InformationValueDate RecordedSex Assigned at BirthNot on fileLegal Sex Male02/05/2023 10:55 AM ESTGender IdentityNot on fileSexual OrientationNot on file Plan of Treatment Health MaintenanceDue DateLast DoneCommentsCT Hwtwvwzistve1959Colonoscopy 1959Colorectal Cancer Foutnsacu1959FIT-DNA (Cologuard)1959FIT 1959Lipid Panel1959 7317Mmfirzctyhuof1959Yearly Adult Physical 1959MMR Vaccines (1 of 1 - Standard series)1960Hepatitis C Screening 1977DTaP/Tdap/Td Vaccines (1 - Tdap)1981PSA Prostate Cancer Qotokxnbj92/26/2009Pneumococcal Vaccine (1 of 1 - PCV)2009Zoster Vaccines [...]
--- OUTSIDE RECORDS SUMMARY | 2025-10-31 10:00 | XMS_ITS ---
Author Organization [facility] Address [id number] [address] [place] [address] Care Team Providers Care Quality Nurse Name Role Phone Services, Pending Sale To [facility] Primary Care Provider Active Problems ProblemNoted DateDiagnosed DateChest pain5Chest pain, unspecified type 5BPH (benign prostatic hyperplasia)01/06/2025History of smoking 01/06/2025Ischemic cbozinm84/07/2025Acquired hammer toe of left foot06/22/2022 Tfgnwcfra63/25/2022enign prostatic hyperplasia with urinary obstruction 2Chronic pain2Current every day ocqkns102Difficulty vsoxxdr3606/22/20225768Uuahtbnkhjnv77/25/2022isorder of male genital dcngko8606/22/2022 Hsoadhfvwgkqcvghkthd03/25/2022rimary nofkydczabdv43/25/2022PAD (peripheral artery disease)06/22/2022denocarcinoma of ugkazsov41/25/0984Aoskoxjzw80/25/2022 Byahxjh18/24/2022BMI 40.0-44.9, adult08/30/2019 Current Treatment and Therapy Plans No current plan information found. Past Treatment and Therapy Plans No past plan information found. Lifetime Dose Tracking * ChemicalLifetime DoseAutomatic EntryManual ZfyxiVljslgknwhs758 mGy0 xOt236 mGy mDAP33,200 mGy/cm20 mGy/cm233,200 mGy/ss4Dzhgoc Time1.6 minutes0 minutes1.6 minutes
--- OUTSIDE RECORDS SUMMARY | 2025-10-31 10:16 | XMS_ITS | CCD ---
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 Name Role Phone Adrian Castano CNP Primary Care Provider [phone] Leila Lambert MD Unavailable [phone] Leila LAMBERT Primary Care Physician Adrian Castano CNP Primary Care Provider [phone] Leila Lambert MD Unavailable NONE, XXXX Primary Care Physician Unavailab Leila Mckenna MD Unavailable Adrian Castano CNP Primary Care Provider LAMBERT ., DR DEE Admitting Unavailable LAMBERT ., DR DEE Attending Unavailable [facility] Unava ilable LAMBERT ., DR DEE Consulting Unavailable LEYVA, MICHELLE Consulting Unavailable ESPAÑA, KEVIN Consulting Unavailable [facility] Consulting Unava ilable LAMBERT ., DR DEE Admitting Unavailable LAMBERT ., DR DEE Attending Unavailable [facility] Unava ilable LAMBERT ., DR DEE Consulting Unavailable ENGDR ZAINAB MENDIETA Consulting Unavailable ZIEBER, DR KOBE Simpson Consulting Unavailable AGUBOSIM, JOSE Consulting Unavailable ROULA, ZOLTAN Consulting Unavailable LAMBERT ., DR DEE Admitting Unavailable LAMBERT ., DR DEE Attending Unavailable [facility] Unava ilable LAMBERT ., DR DEE Consulting Unavailable Asaad, Imad Unavailable Health DeptJosé Miguel Primary Care Provider [phone] MD Fred Kirk Attending Provider Adrian Castano CNP Primary Care Provider Yolette Warren MD Primary Care Provider [phone] KERIR BENITEZ Attending Unavailable BENITEZ, KERRI W Referring [...] Attending Unavailable [place] Anjana OLIVER Attending Provider [phone] Leila LAMBERT Attending Unavailable Maricruz Johnson Admitting Unavailable Maricruz Johnson Attending Unavailable LAMBERT, Leila Simpson Admitting Unavailable LAMBERT, Leila Simpson Attending Unavailable LAMBERT, Leila R Attending Unavailable Services, [facility] Primary Care Provider Services, [facility] Primary Care Provider Adrian Castano CNP Primary Care Provider Anjana Dietz DPM Attending Provider Leila Lambert MD Attending Provider [phone] Anjana Dietz Admitting Unavailable Anjana Dietz Attending Unavailable Petra, Leila Admitting Unavailable Petra, Leila Attending Unavailable Services, [facility] Primary Care Provider HANK ENGLE Referring Unavailable [facility] Primary Care Unava ilable KERRI SHAH Attending Unavailable SERVICES, [facility] Care Unava ilable KERRI SHAH Attending Unavailable [facility] Primary Care Unava ilable RONY LUNA Admitting Unavailable RONY LUNA Referring Unavailable [facility] Primary Care Unava ilable [place] Unavailable CLARIBEL PACE Attending Unavailable CLARIBEL PACE Consulting Unavailable EDILIA DOAN Consulting Unavailable JIMMIE ESPINOZA Consulting Unavailable MANOJ, ALCIRA U Referring Unavailable [facility] Primary Care Unava ilable [facility] Primary Care Unava ilable FADI AVELAR Attending Unavailable Leila Lambert MD Unavailable Services, [facility] Primary Care Provider PETRA, LEILA Referring Unavailable [...] Unavailable LAMBERT, Leila R Admitting Unavailable Services, [facility] Primary Care Provider SERVICES, [facility] Primary Care Unava ilable LEAH ARAMBULA Attending Unavailable [facility] Primary Care Unava ilable GLENNA COLLINS Consulting Unavailable ARANDA, ALCIRA U Admitting Unavailable DUANE SCHROEDER Attending Unavailable TRACY HILL Attending Unavailab le TRACY HILL Referring Unavailab le [facility] Primary Care Unava ilable ANJANA DIETZ Referring Unavailable [facility], [facility] Primary Care Unava ilable [facility] Primary Care Unava ilable TRACY HILL Attending Unavailab le [facility] Primary Care Unava ilable DUANE SCHROEDER Admitting Unavailable [facility], [facility] Consulting Unavailable ARANDA, ALCIRA U Attending Unavailable ANJANA DIETZ Referring Unavailable [facility] Primary Care Unava ilable JAMES POSADA Attending Unavailable [facility], [facility] Primary Care Unava ilable [facility] Primary Care Unava ilable LEAH ARAMBULA Attending Unavailable SERVICES, [facility] Care Unava ilable WILLIE JOHN Attending Unavailable NKADIIMMANUEL Attending Unavailable [facility] Primary Care Unava ilable SERVICES, [facility] Primary Care Unava ilable [facility] Consulting Unavai lable ALEXANDRE, MUHAMID M Admitting Unavailable DUANE SCHROEDER Attending Unavailable LEON, EHAD Consulting Unavailable TELE[facility]OKE, [facility] Consulting UnavailMICHELLE Lira Attending Unavailable MICHELLE FOSTER Referring Unavailable [facility] Primary Care Unava ilable Allergies Allergy ClassificationReported Allergen(s)Allergy TypeDate of OnsetReaction(s) Facility (10 sources)CodeineDrug [id number] Work Phone: (10 sources)Guaifenesin-CodeineDrug Owflrvs28-15-3840VayiuME[facility] (4 sources)No Known Medication Allergies; Translations: [No Known Medication Allergies]Propensity to adverse reactions (disorder)[facility] Repository (20 sources)Codeine / guaiFENesin; Translations: [CODEINE-GUAIFENESIN]Drug Bjysvjz96-32-1637[facility] Work Phone: (3 sources)Latex; Translations: [LATEX]Drug Gfmucqf06-03-8483[facility] Medications Current Medications MedicationDrug Class(es)DatesSig (Normalized)Sig (Original)amiodarone hydrochloride 200 mg oral tablet (12 sources)AntiarrhythmicStart: 03-15-2025 End: 50-88-4110mjul 1 tablet by mouth in the morningamiodarone (PACERONE) 200 mg tablet Indications: Postoperative atrial fibrillation ([facility]) Take 1tablet (200 mg total) by mouth in the morning. 90 tablet 1 06/21/2025 ActiveStart: 03-07-2025 End: 46-86-9156jkej 2 tablets by mouth twice daily, then take 1 tablet by mouth once dailyamiodarone (PACERONE) 200 mg tablet Take 2 tablets (400 mg total) by mouth 2 (two) times a day for 5 days, THEN 1 tablet (200 mg total) daily for 30 days. 50 tablet 03/07/2025 03/15/2025 DiscontinuedAspirin (20 sources)Platelet Aggregation Inhibitor, Nonsteroidal Anti-inflammatory Drug Start: 03-43-3984Objqwas Low Dose mg, Daily, Refills(s) 0 Start Date: 08/13/25 Status: Ordered Repeat number: 1Start: 03-08-2025 End: 88-10-4785athj 1 tablet by mouth in the morningaspirin 81 mg Indications: S/P CABG x 2 Take 1 tablet (81 mg total) by mouth in the morning. 30 tablet 11 04/10/2025 ActiveStart: 10-93-8174kxpg 1 tablet by mouth in the morningRA Aspirin EC 325 MG EC tablet Take 325 mg by mouth in the morning. 06/23/2022 Activeatorvastatin 40 mg oral tablet (20 sources)HMG-CoA Reductase InhibitorStart: 03-07-2025 End: 86-21-2151lver 1 tablet by mouth once dailyatorvastatin (LIPITOR) 40 mg tablet Indications: S/P CABG x 2 Take 1 tablet (40 mg total) by mouth nightly. 90 tablet 3 03/23/2025 ActiveStart: 43-07-6665zdahvicacwnj 10 mg Tab Refills(s) 0 Start Date: 03/08/23 Status: Ordered Repeat number: 1Start: 15-14-8520bdaj 0.5 tablet by mouth in the morningatorvastatin (LIPITOR) 20 mg tablet Take 0.5 tablets (10 mg total) by mouth in the morning. 0 03/01/2017 SuspendedComment on above:Take 10 mg by mouth once daily.bicalutamide 50 mg oral tablet (10 sources)Androgen Receptor InhibitorStart: 31-78-6583bpbv 1 tablet by mouth once dailybicalutamide (CASODEX) 50 mg chemo tablet Take 1 tablet by mouth nightly 03/26/2025 ActiveStart: 03-26-2025 End: 88-16-3668itde 1 tablet by mouth every twenty-four hoursCasodex 50 mg Tab 50 mg = 1 tab(s), Oral, q24hr, X 90 day(s), # 90 tab(s), Refills(s) 3, Pharmacy: [facility] [id number], 160, cm, 03/26/25 9:43:00 EDT, Height/Length Dosing, 98, kg, 03/26/25 9:43:00 EDT, Weight Dosing Start Date: 03/26/25 Stop Date: 03/21/26 Status: Ordered Quantity: 90.0 Unit: tab(s) Repeat number: 4 Indications: Rising PSA following treatment for malignant neoplasm of prostate; Malignant neoplasm of prostate;cholecalciferol 1.25 mg oral capsule (4 sources)Vitamin DStart: 43-01-2984zobl 1 tablet by mouth in the morning [...] tablet (11 sources)P2Y12 Platelet InhibitorStart: 06-24-2022 End: 46-79-6083vfui 1 tablet by mouth in the morningclopidogrel (Plavix) 75 MG tablet Take 75 mg by mouth in the morning. 06/24/2022 Activecyclobenzaprine hydrochloride 10 mg oral tablet (20 sources)Muscle RelaxantStart: 02-20-2023 End: 20-52-8195jtytfifdnszofwm 10 mg Tab Refills(s) 0 Start Date: 03/08/23 Status: Ordereddicyclomine hydrochloride 20 mg oral tablet (15 sources)AnticholinergicStart: 78-44-8073klwe 1 tablet by mouth three times dailyDicyclomine 20 mg tablet Active 20 MG PO Three times daily June 22, 2024 3:02pm Take 1 tablet orally three times a day.Start: 03-01-2024 End: 92-51-1612cqzd 1 tablet by mouth twice dailyDicyclomine 20 mg tablet Discontinued 20 MG PO Three times daily June 22, 2024 1:54pm June 22, 2024 3:03pm Take 1 tablet orally twice a day.docusate sodium 50 mg / sennosides, mcc 8.6 mg oral tablet (3 sources)Start: 03-07-2025 End: 80-59-0790oxap 2 tablets by mouth in the morningsennosides-docusate sodium (SENOKOT-S) 8.6-50 mg Indications: constipation Take 2 tablets by mouth in the morning and 2 tablets before bedtime. Do all this for 14 days. Indications: constipation. 56 tablet 03/07/2025 03/21/2025 Activedoxycycline hyclate 100 mg oral capsule (20 sources)Tetracycline-class DrugStart: 05-17-2023 End: 79-08-8496rsaj 1 capsule by mouth every twelve hoursdoxycycline hyclate 100 mg Cap 100 mg = 1 cap(s), Oral, q12hr, X 14 day(s), # 28 cap(s), Refills(s)0, Pharmacy: [id number], 160, cm, 05/17/23 12:23:00 EDT, Height/Length Dosing, 107, kg, 05/17/23 12:23:00 EDT, Weight Dosing Start Date: 05/17/23 Stop Date: 05/31/23 Status: OrderedStart: 02-27-2022 End: 76-59-1494ozjh 1 capsule by mouth twice dailydoxycycline hyclate (VIBRAMYCIN) 100 mg capsule Take 100 mg by mouth twice daily. 02/27/2022 024 Discontinued (Discontinued by another Health Care Provider)Comment on above: Take 100 mg by mouth twice daily.famotidine 20 mg oral tablet (12 sources)Histamine-2 Receptor AntagonistStart: 66-38-2635ciwz 1 tablet by mouth once dailyfamotidine 20 mg Tab 20 mg = 1 tab(s), Oral, Daily Start Date: 09/17/25 Status: Ordered Repeat number: 1Start: 03-08-2025 End: 54-64-6597fcph 1 tablet by mouth in the morningfamotidine (PEPCID) 20 mg tablet Take 1 tablet (20 mg total) by mouth in the morning for 30 days. 30 tablet 03/08/2025 04/07/2025 Activefexofenadine hydrochloride 180 mg oral tablet (2 sources)Histamine-1 Receptor AntagonistStart: 40-05-4249tcxa 1 tablet by mouth in the morningfexofenadine (IRIS) 180 mg tablet Take 1 tablet (180 mg total) by mouth in the morning. 30 tablet 2 10/04/2025 Activefluticasone propionate 0.05 mg/actuat metered dose nasal spray (20 sources)CorticosteroidStart: 39-11-0364kzza 2 spray(s) nasal route in the morningfluticasone propionate (FLONASE) 50 mcg/actuation nasal spray Administer 2 sprays into each nostrilin the morning. 11.1 mL 12 10/05/2025 ActiveStart: 01-05-2024 End: 30-88-6590Lkvfxuamefa Furoate 100 mcg/actuation blister with device Discontinued [...] oral tablet (3 sources)Loop DiureticStart: 03-08-2025 End: 97-75-0803wmsm 1 tablet by mouth once dailyfurosemide (LASIX) 20 mg tablet Take 1 tablet (20 mg total) by mouth daily for 14 days. 14 tablet 03/08/2025 03/22/2025 Activehyoscyamine sulfate 0.12 mg / methenamine 118 mg / methylene blue 10 mg / phenyl salicylate 36 mg /sodium phosphate, monobasic 40.8 mg oral capsule (3 sources)Oxidation-Reduction AgentStart: 11-70-8310Jqbtmz oral capsule 1 cap(s), Oral, BID, 60 cap(s), Refill(s) 1, [facility] #[id number], 160, cm, 07/15/22 8:09:00 EDT, Height/Length Dosing, 108, kg, 07/15/22 8:09:00 EDT, Weight Dosing Start Date: 07/15/22Status: Orderedibuprofen 800 mg oral tablet (20 sources)Nonsteroidal Anti-inflammatory DrugStart: 10-05-6214cdiu 1 tablet by mouth twice daily for painibuprofen 800 MG tablet take 1 tablet by mouth twice a day if needed for pain take with food 05/21/2022 ActiveStart: 06-08-2021 End: 78-60-9825skdt 1 tablet by mouth every eight hours as neededibuprofen (MOTRIN) 800 mg tablet Take 1 tablet by mouth every 8 hours as needed for pain. 60 tablet2 03/31/2022 ActiveComment on above:Take 800 mg by mouth.Take 1 tablet by mouth every 8 hours as needed for pain.indomethacin 50 mg oral capsule (14 sources)Nonsteroidal Anti-inflammatory DrugStart: 01-04-2023 End: 70-22-9533cowy 1 capsule by mouth twice daily at mealtimeindomethacin (INDOCIN) 50 mg capsule take 1 capsule by mouth twice a day with food or milk for 14 days 01/04/2023 ActiveComment on above:take 1 capsule by mouth twice a day with food or milk for 14 dayslidocaine 0.05 mg/mg medicated patch (11 sources)Antiarrhythmic, Amide Local AnestheticStart: 02-20-2023 End: 15-36-8490bqqtj 1 dose transdermal route once dailylidocaine (Lidoderm) 5 % patch Place 1 patch on the skin 1 (one) time each day at the same time. Activelisinopril 10 mg oral tablet (20 sources)Angiotensin Converting Enzyme InhibitorStart: 56-46-7067hbgehustek 10 mg Tab Refills(s) 0 Start Date: 03/08/23 Status: Ordered Repeat number: 1 Comment on above:Take 10 mg by mouth.meclizine hydrochloride 25 mg oral tablet (13 sources)AntiemeticStart: 19-22-3484ptur 1 tablet by mouth three times daily as needed for dizzinessmeclizine (ANTIVERT) 25 mg tablet Take 1 tablet (25 mg total) by mouth 3 (three) times a day as needed for dizziness. 30 tablet 10/04/2025 ActiveStart: 46-44-7530dgwl 1 tablet by mouth three times daily meclizine (Antivert) 25 MG tablet take 1 tablet by mouth three times a day if needed for 10 days 08/20/2022 ActiveStart: 09-07-2020 End: 53-20-7959anypykzut (ANTIVERT) 25 mg tablet Chew 1 tablet (25 mg total) and swallow 3 (three) times a day as needed for dizziness. 30 tablet 09/07/2020 08/23/2024 Discontinued (Therapy completed)methenamine hippurate 1000 mg oral tablet (1 source)Start: 06-09-2023 End: 83-01-2773hqbe 1 tablet by mouth twice dailymethenamine hippurate 1 g oral tablet 1 gm = 1 tab(s), Oral, BID, X 30 day(s), # 60 tab(s), Refills(s) 1, [facility]acy: [facility] #[id number], 160, cm, 05/17/23 12:23:00 EDT, Height/Length Dosing, 107, kg, 05/17/23 12:23:00 EDT, Weight Dosing Start Date: 06/09/23 Stop Date: 08/08/23 Status: Orderedmetoprolol tartrate 25 mg oral tablet (20 sources)beta-Adrenergic BlockerStart: 46-00-9477rlxz 1 tablet by mouth once dailyLopressor 25 mg oral tablet 25 mg = 1 tab(s), Oral, Daily Start Date: 09/17/25 Status: Ordered Repeat number: 1Start: 03-07-2025 End: 24-93-2927zfjy 1 tablet by mouth in the morning, [...] MG PO Daily January 05, 2024 1:00amStart: 48-17-0418mhiy 1 tablet by mouth twice dailyMetoprolol tartrate 50 mg Tab 180 EA, take 1 tablet by mouth twice a day, Refills(s) 0 Start Date: 12/22/21 Status: Ordered Repeat number: 1metoprolol tartrate (Lopressor) 50 MG tablet every 12 (twelve) hours. ActiveComment on above:Take 50 mg by mouth.24 hr mirabegron 50 mg extended release oral tablet (20 sources)beta3-Adrenergic AgonistStart: 03-26-2025 End: 17-78-0105vhvh 1 tablet by mouth once dailyMyrbetriq 50 mg oral tablet, extended release 50 mg = 1 tab(s), Oral, Daily, X 90 day(s), # 90 tab(s), Refills(s) 3, Pharmacy: [facility] [id number], 160, cm, 03/26/25 9:43:00 EDT, Height/Length Dosing, 98, kg, 03/26/25 9:43:00 EDT, Weight Dosing Start Date: 03/26/25 Stop Date: 03/21/26 Status: Ordered Quantity: 90.0 Unit: tab(s) Repeat number: 4 Indications: Urge incontinence;Start: 12-01-2024 End: 90-87-3441edyivswvaw (MYRBETRIQ) 50 mg Tb24 Take 100 mg by mouth. 12/01/2024 11/26/2025 ActiveStart: 10-16-2024 End: 14-85-6762meof 2 tablets by mouth once daily, then take 2 tablets by mouth once dailyMyrbetriq 50 mg oral tablet, extended release 100 mg = 2 tab(s), Oral, Daily, 100mg daily., X 90 day(s), # 180 tab(s), Refills(s) 3, Pharmacy: [facility] [id number], 165, cm, 09/17/25 9:49:00 EDT,Height/Length Dosing, 112, kg, 09/17/25 9:49:00 EDT, Weight Dosing Start Date: 09/17/25 Stop Date: 09/12/26 Status: Ordered Quantity: 180.0 Unit: tab(s) Repeat number: 4 Indications: Urge incontinence;Start: 95-17-2353xkoq 1 tablet by mouth every twenty-four hours in the morningMYRBETRIQ 50 mg tablet extended release 24 hr Take 1 tablet (50 mg total) by mouth in the morning. 01/20/2024 ActiveStart: 03-08-2023 End: 61-68-5131izjn 1 tablet by mouth once dailyMirabegron (Myrbetriq) 50 mg tablet extended release 24 hr Discontinued 50 MG PO Daily January 05, 2024 1:00am March 01, 2024 1:07pmComment on above:Take 50 mg by mouth.naproxen 500 mg delayed release oral tablet (20 sources)Nonsteroidal Anti-inflammatory DrugStart: 02-20-2023 End: 31-42-0214lgun 1 tablet by mouth in the morningnaproxen (EC Naprosyn) 500 MG EC tablet Take 500 mg by mouth in the morning and 500 mg in the evening. Take with meals. 02/20/2023 ActiveStart: 06-78-7866qamt 1 tablet by mouth every twelve hours as needed for painnaproxen 500 mg Tab 12 EA, take 1 tablet by mouth every 12 hours NEEDED FOR PAIN TAKE WITH FOOD OR MILK, Refills(s) 0 Start Date: 12/22/21 Status: Hzfcrgl92 hr oxybutynin chloride 10 mg extended release oral tablet (10 sources)Cholinergic Muscarinic AntagonistStart: 40-25-9961ipnm 1 tablet by mouth every twenty-four hours in the morningoxybutynin XL (Ditropan-XL) 10 MG 24 hr tablet Take 10 mg by mouth in the morning. 06/01/2022 ActiveoxyCODONE hydrochloride 5 mg oral tablet (2 sources)Opioid AgonistStart: 03-07-2025 End: 00-43-1765xkbm 1 tablet by mouth every six hours as needed for pain oxyCODONE (ROXICODONE) 5 mg immediate release tablet Indications: S/P CABG x 2 , Chest pain, unspecified type Take 1 tablet (5 mg total) by mouth every 6 (six) hours as needed for pain for up to 7 days. Max Daily Amount: 20 mg 28 tablet 03/07/2025 03/14/2025 Activepolyethylene glycol 3350 69738 mg powder for oral solution (3 sources)Osmotic LaxativeStart: 03-08-2025 End: 93-84-3996hndunkfqmzhr glycol (GLYCOLAX) 17 gram packet Take 17 g by mouth in the morning for 14 days. 14 packet 03/08/2025 03/22/2025 Activesod sulf-pot chloride-mag sulf 1.479-0.188- 0.225 gram tablet (2 sources)Start: 98-37-8235dfk sulf-pot chloride-mag sulf 1.479-0.188- 0.225 gram tablet Indications: Diarrhea, unspecified type Please see instructional sheet given by physicians office. 24 tablet 08/23/2024 Activetamsulosin hydrochloride 0.4 mg oral capsule (20 sources)alpha-Adrenergic BlockerStart: 39-45-1346hkmb 1 capsule by mouth once dailytamsulosin (FLOMAX) 0.4 mg capsule Take 1 capsule (0.4 mg total) by mouth nightly. 10/05/2025 ActiveStart: 70-35-0603mtmuirfmof (FLOMAX) 0.4 mg 1 capsule. 09/04/2022 ActiveStart: 12-89-2620isxx 1 capsule by mouth twice daily tamsulosin 0.4 mg Cap 0.4 mg = 1 cap(s), Oral, BID, # 180 cap(s), Refills(s) 3, Pharmacy: [facility] [id number], 160, cm, 10/16/24 12:19:00 EST, Height/Length Dosing, 117, kg, 10/16/24 12:19:00 EST, Weight Dosing Start Date: 11/20/24 Status: Ordered Quantity: 180.0 Unit: cap(s) Repeat number: 4Comment on above:1 capsule.vitamin b12 1 mg sublingual tablet (2 sources)Vitamin D12Ibluh: 47-14-3500eour 1 tablet under the tongue in the morningcyanocobalamin (VITAMIN B12) 1,000 mcg tablet, sublingual Place 1 tablet (1,000 mcg total) under the tongue in the morning. 30 tablet 2 10/04/2025 Active Completed/Discontinued Medications MedicationDrug Class(es)DatesSig (Normalized)Sig (Original)24 hr alfuzosin hydrochloride 10 mg extended release oral tablet (20 sources)alpha-Adrenergic BlockerStart: 02-23-2022 End: 58-96-3104vkvo 1 tablet by mouth once daily, then take 1 tablet by mouth every twenty-four hoursalfuzosin SR (UROXATRAL) 10 mg 24 hr tablet Take 10 mg by mouth once daily. 02/23/2022 01/04/2024 Discontinued (Discontinued by another Health Care Provider)Comment on above:Take 10 mg by mouth once daily.amoxicillin 875 mg / clavulanate 125 mg oral tablet (1 source)Penicillin-class AntibacterialStart: 01-08-2025 End: 81-54-9071thvl 1 tablet by mouth once in the morningamoxicillin-pot clavulanate (AUGMENTIN) 875-125 mg per tablet Take 1 tablet by mouth in the morningand 1 tablet before bedtime. Do all this for 7 days. 14 tablet 01/08/2025 01/16/2025 Discontinued (Therapy completed)atropine sulfate 0.025 mg / diphenoxylate hydrochloride 2.5 mg oral tablet (20 sources)Anticholinergic, Cholinergic Muscarinic Antagonist, Antidiarrheal Start: 11-25-2021 End: 11-33-2021fwis 1 tablet by mouth twice daily for diarrheadiphenoxylate- atropine (LOMOTIL) 2.5-0.025 mg per tablet take 1 tablet by mouth twice a day if needed for diarrhea 11/25/2021 01/04/2024 Discontinued (Discontinued by another Health Care Provider)Comment on above:take 1 tablet by mouth twice a day if needed for diarrheaciprofloxacin 500 mg oral tablet (4 sources)Quinolone AntimicrobialStart: 48-45-2389tabw 1 tablet by mouth once dailyCipro 500 mg Tab 500 mg = 1 tab(s), Oral, Daily, Take 1 tablet the day before the procedure and 1 tablet after the procedure, # 2 tab(s), Refills(s) 0, Pharmacy: [facility] [id number], 160, cm, 03/26/25 9:43:00 EDT, Height/Length Dosing, 98, kg, 03/26/25 9:43:00 EDT, Weight Dosing Start Date: 08/03/25 Status: Ordered Quantity: 2.0 Unit: tab(s) Repeat number: 1Start: 46-08-0429qwyt 1 tablet by mouth once dailyCipro 500 mg Tab 500 mg = 1 tab(s), Oral, Daily, take one tab day before procedure and one tab after procedure, # 2 tab(s), Refills(s) 0, Pharmacy: [facility] [id number], 160, cm, 01/15/25 11:42:00 EST, Height/Length Dosing, 104.3, kg, 01/15/25 11:42:00 EST, Weight Dosing Start Date: 01/15/25 Status: OrderedImmodium A-D 2 mg Cap (1 source)Start: 83-21-2812qgzg 1 capsule by mouth once dailyImmodium A-D 2 mg Cap 30 EA, take 1 capsule by mouth daily, Refills(s) 0 Start Date: 12/22/21 Status: Orderedloperamide hydrochloride 2 mg oral capsule (7 sources)Opioid AgonistStart: 12-22-2021 End: 39-97-7901xjpipmspei (IMODIUM) 2 mg cap(s) Take by mouth. 12/22/2021 01/23/2025 Discontinued (Discontinued byPatient)Comment on above:Take by mouth. 24 hr nicotine 0.875 mg/hr transdermal system (1 source)Cholinergic Nicotinic AgonistStart: 06-23-2022 End: 41-48-3956rmrlz 1 dose transdermal route every hour in the morningnicotine (NICODERM CQ) 21 mg/[address] 1 patch on the skin in the morning. 7 patch 06/23/2022 08/23/2024 Discontinued (Therapy completed) Problems Active Problems Problem ClassificationProblemDateDocumented DateEpisodic/ChronicAcquired foot deformities (18 sources)Acquired hammer toe of left foot; Translations: [Other hammer toe(s) (acquired), left foot]Onset: [id number] cerebrovascular disease (1 source)Cerebral infarction, unspecified; Translations: [Cerebral infarction, unspecified]Onset: 98-64-7995KhxnvfhSevyy cerebrovascular disease (1 source)Acute cerebrovascular diseaseOnset: 19-67-6886Kefasx of prostate (20 sources)Malignant tumor of prostate; Translations: [Malignant neoplasm of prostate]Onset: 18-62-1669MgiskmwDmtrerz dysrhythmias (2 sources)Atrial fibrillation; Translations: [Unspecified atrial fibrillation] Onset: [id number] associated with dizziness or vertigo (20 sources)Vertigo; Translations: [Dizziness and giddiness]Onset: 06-21-2022 31-34-8281NshqdohgXlzxiezt atherosclerosis and other heart disease (3 sources)Coronary arteriosclerosis; Translations: [Atherosclerotic heart disease of [place] coronary artery with unstable angina pectoris]Onset: 930090-11-1504PzcfwynFmdgfsqkr of lipid metabolism (20 sources)Hypercholesterolemia; Translations: [Hyperlipidemia, unspecified] Onset: 207676-17-1990HxttgxiMikqvospi hypertension (20 sources)Hypertensive disorder; Translations: [Essential (primary) hypertension]Onset: 379060-09-1633CpaehbtPfnmwdypvougz symptoms and ill- defined conditions (20 sources)Urge incontinence; Translations: [Urge incontinence of urine]Onset: 57-71-2385HyozlxgEnbhlzvpfhxoc symptoms and ill-defined conditions (20 sources)Dysuria; Translations: [Dysuria]Onset: 02-48-4438WvecjbpfZedgdyqbbvv of prostate (20 sources)Benign prostatic hypertrophy with outflow obstruction; Translations: [Prostate nodule]Onset: 367561-22-2747BtrpskcRcjllmmfzj infection (1 source)Viral gastroenteritis; Translations: [Viral intestinal infection, unspecified]86-87-3055GpbzjnhxUqxkkf and vomiting (1 source)NauseaOnset: 91-11-4353OblizcxtDqwnfnvnqexsb gastroenteritis (2 sources)Chronic diarrhea; Translations: [Noninfective gastroenteritis and colitis, unspecified]EpisodicNonmalignant breast conditions (1 source)Gynecomastia; Translations: [Hypertrophy of breast]07-01-9562Ezbmtkwt Osteoarthritis (20 sources)Arthritis; Translations: [Unspecified osteoarthritis, unspecified site]Onset: 930186-48-3353GwmbtovNgshf connective tissue disease (4 sources)Enthesopathy of lower limb; Translations: [Other enthesopathy of left foot and ankle]25-76-3411JdaahhtdEitbj connective tissue disease (8 sources)Synovitis and tenosynovitis; Translations: [Other synovitis and tenosynovitis, left ankle and foot]14-97-1669XyqtdjwgWqmxl gastrointestinal disorders (4 sources)Irritable bowel syndrome; Translations: [Irritable bowel syndrome without diarrhea]87-97-0773JsygexeTjhws gastrointestinal disorders (1 source)Irritable bowel syndrome without diarrhea; Translations: [Irritable bowel syndrome]06-19-6677NordjaeCumxz male genital disorders (1 source)Hydrocele of testis; Translations: [Hydrocele, unspecified]Onset: 81-42-5830SnuvdylgTitof male genital disorders (1 source)Hydrocele, unspecified; Translations: [HYDROCELE UNSPECIFIED]Onset: 30-90-8439OviqibalXrhle male genital disorders (5 sources)H/O: male genital disorder; Translations: [Personal history of other diseases of male genital organs]Onset: 80-25-0296DxoxkhobGclfj male genital disorders (12 sources)History of bwwzoylujmx40-06-5432OfmwfhmbOwfwa nervous system disorders (20 sources)Difficulty walking; Translations: [Difficulty in walking, not elsewhere classified]Onset: 244849-65-9761WqtcyozOxvmz nervous system disorders (18 sources)Chronic pain; Translations: [Other chronic pain]Onset: 06-22-2022 67-94-3553WuhvsooOxqwu non-traumatic joint disorders (2 sources)Arthritis of left lyrfg65-13-7633DjczjifYmjjp non-traumatic joint disorders (8 sources)Chronic ankle pain; Translations: [Pain in left ankle and joints of left foot]74-70-4195KqtilktaBowsg nutritional; endocrine; and metabolic disorders (18 sources)Body mass index 40+ - severely obese; Translations: [Body mass index (BMI) 40.0-44.9, adult]Onset: 071664-34-3197SoxvzqiQngbm screening for suspected conditions (not mental disorders or infectious disease) (14 sources)Elevated prostate specific antigen [PSA]; Translations: [Raised prostate specific antigen]Onset: 62-89-2372RirgtuwmNxtvpopliv and visceral atherosclerosis (20 sources)Peripheral vascular disease; Translations: [Peripheral vascular disease, unspecified]Onset: 251101-64-0990OmbulgoGzfutfxql-hbwkgtm disorders (19 sources)Nicotine dependence, cigarettes, uncomplicated; Translations: [Smokes tobacco daily]Onset: 639413-44-2322AdwmdpvXywsykphjutr (15 sources)Finding of sensation of oeuhkxu56-99-2529Ppvosgrywxhy (1 source)Urinary Catheter Insertion or CheckOnset: 53-30-3048Ckftsrjmhyym (1 source)EMSOnset: 01-02-2025 Past or Other Problems Problem ClassificationProblemDateDocumented DateEpisodic/ChronicAbdominal pain (7 sources)Abdominal pain; Translations: [Unspecified abdominal pain]Onset: 024639-88-5252VhepszrlDufbfz of prostate (3 sources)History of malignant neoplasm of prostate; Translations: [Personal history of malignant neoplasm ofprostate]Onset: 432357-01-3269Auzyzctd Complication of device; implant or graft (1 source)Breakdown (mechanical) of other urinary catheter, initial encounter; Translations: [Breakdown (mechanical) of other urinary catheter, initial encounter]Onset: 15-16-8305KsvstsueGvevkyknsxmvv of surgical procedures or medical care (4 sources)Atrial fibrillation; Translations: [Other postprocedural complications and disorders of the circulatory system, not elsewhere classified] Onset: 501433-97-1268LikyqvljLnpdvceu atherosclerosis and other heart disease (2 sources)Presence of aortocoronary bypass graft; Translations: [Presence of aortocoronary bypass graft]Onset: 96-15-8886ImjxygnsFmlfieyglbsxiuyj hemorrhage (1 source)Rectal hemorrhageOnset: 09-67-4367XoyieyglAzaiiuiapyon conditions of male genital organs (20 sources)Epididymitis; Translations: [Epididymitis]Onset: 06-22-2022 30-60-5329DoarvvmcSqjn disorders (14 sources)Mood disordersOnset: 843256-76-1228Thpfdomlkqx chest pain (20 sources)Chest pain; Translations: [Chest pain, unspecified]Onset: 02-24-2025 66-56-1536XedpjvbiUodxx gastrointestinal disorders (6 sources)Diarrhea; Translations: [Diarrhea, unspecified]Onset: 08-23-2024 81-49-3126MqurrzwtBaqhw gastrointestinal disorders (4 sources)Diarrhea, unspecified; Translations: [Diarrhea]Onset: 08-23-2024 53-73-3622PbtzuftyQekxa gastrointestinal disorders (1 source)Urgent desire for stool; Translations: [Fecal urgency]08-23-2024 EpisodicOther gastrointestinal disorders (1 source)Fecal urgency; Translations: [Fecal urgency]Onset: 31-58-8042Tmcwsslk Other male genital disorders (20 sources)Disorder of male genital organ; Translations: [Disorder of male genital organs, unspecified]Onset: 926744-53-4045GisekgdbSyxtbzbxt and history of mental health and substance abuse codes (15 sources)Tobacco use and exposure - finding; Translations: [Personal history of nicotine dependence]Onset: 506966-92-4720Jjbpytgo Results Test NameValueInterpretationReference RangeFacilityCLARK REGIONAL MEDICAL CENTER WITH AUTO DIFFERENTIALon 19-09-6453ZQQJZCPSN ABSOLUTE COUNT BY AUTOMATED COUNT0.0 X10^9/LNormal0.0-0.2 [facility] on above:Performed By: #### 3040-3, CMP, CBCA #### [facility] ([id number]) [address] [place] [address] 51594RNSTYELAM RELATIVE PERCENT BY AUTOMATED COUNT0.9 %Normal [facility] HealthComment on above:Performed By: #### 3040-3, CMP, CBCA #### [facility] ([id number]) [address] [place] [address] 55038UTINKNKPDFQ DIFFERENTIAL TYPEAUTOMATED DIFFERENTIALNormal [facility] HealthComformerly [facility] on above:Performed By: #### 3040-3, CMP, CBCA #### [facility] ([id number]) [address] [place] [address] 01237Fwgzuuxqqbp (Bld) [#/Vol]0.1 10*3/uLNormal0.0-0.4[facility] Hospitalca [facility] Regional Medical CenterComment on above:Performed By: #### 3040-3, CMP, CBCA #### [facility] ([id number]) [address] [place] [address] 12528CRUTNQLLDMC RELATIVE PERCENT BY AUTOMATED COUNT3.5 %Normal [facility] HealthComment on above:Performed By: #### 3040-3, CMP, CBCA #### [facility] ([id number]) [address] [place] [address] 39105Onkovcxeqtz distribution width (RBC) [Ratio]13.2 %Fnqlmf75.5-15 [facility] HealthComment on above:Performed By: #### 3040-3, CMP, CBCA #### [facility] ([id number]) [address] [place] [address] 54480Vjfcscnyvr (Bld) [Volume fraction]37.0 %Ank68-41UczYxdkkeWilson HealthComment on above:Performed By: #### 3040-3, CMP, CBCA #### [facility] ([id number]) [address] [place] [address] 08495Cfjodtcmae (Bld) [Mass/Vol]13.0 g/nKGfudyf87-35KunMgxbemMemorial Hermann Sugar Land HospitalComment on above:Performed By: #### 3040-3, CMP, CBCA #### [facility] ([id number]) [address] [place] [address] 18929Wftiegytucp (Bld) [#/Vol]0.8 10*3/uLLow1.0-3.5[facility] Regional Medical CenterComment on above:Performed By: #### 3040-3, CMP, CBCA #### [facility] ([id number]) [address] [place] [address] 74687UHZKLCUUDRI RELATIVE PERCENT BY AUTOMATED COUNT20.8 %Normal Wilson HealthComment on above:Performed By: #### 3040-3, CMP, CBCA #### [facility] ([id number]) [address] [place] [address] 00801PGE (RBC) [Entitic mass]31.7 fmQdsxvu78-57MdaJgrrheWilson HealthComment on above:Performed By: #### 3040-3, CMP, CBCA #### [facility] ([id number]) [address] [place] [address] 78427PPDF (RBC) [Mass/Vol]35.2 g/ePBzoctn92-56RefEvuojiMemorial Hermann Sugar Land HospitalComment on above:Performed By: #### 3040-3, CMP, CBCA #### [facility] ([id number]) [address] FLO[address] [place], [place] [address]SNT (RBC) [Entitic vol]90 zMVfpwta87-571UkuMypdzzWilson HealthComment on above:Performed By: #### 3040-3, CMP, CBCA #### [facility] ([id number]) [address] [place] [address] 71955Cmoigidtn (Bld) [#/Vol]0.4 10*3/uLNormal0.0-0.9Wilson HealthComment on above:Performed By: #### 3040-3, CMP, CBCA #### [facility] ([id number]) [address] [place] [address] 55142KCBERQVUT RELATIVE PERCENT BY AUTOMATED COUNT10.4 %Normal [facility] HealthComformerly [facility] on above:Performed By: #### 3040-3, CMP, CBCA #### [facility] ([id number]) [address] [place] [address] 50660PEQBEBVKBNA ABSOLUTE COUNT BY AUTOMATED COUNT2.5 X10^9/LNormal 1.5-6.6[facility] HealthComformerly [facility] on above:Performed By: #### 3040-3, CMP, CBCA #### [facility] ([id number]) [address] [place] [address] 13010KOFLSDNLTOX RELATIVE PERCENT BY AUTOMATED COUNT64.4 %Normal [facility]Comformerly [facility] on above:Performed By: #### 3040-3, CMP, CBCA #### [facility] ([id number]) [address] [place] [address] 18754Ppfzqauz mean volume (Bld) [Entitic vol]7.9 fLNormal7-12 [facility]Comformerly [facility] on above:Performed By: #### 3040-3, CMP, CBCA #### [facility] ([id number]) [address] [place] [address] 19808Lzqmatflh (Bld) [#/Vol]131 10*3/gJAds720-581ZpsNvrgkuMemorial Hermann Sugar Land HospitalComment on above:Performed By: #### 3040-3, CMP, CBCA #### [facility] ([id number]) [address] [place] [address] 99620NJW COUNT4.10 X10^12/LNormal4.1-5.7[facility] Comment on above:Performed By: #### 3040-3, CMP, CBCA #### [facility] ([id number]) [address] [place] [address] 05145BZT (Bld) [#/Vol]3.9 10*3/uLLow4-11[facility] Comment on above:Performed By: #### 3040-3, CMP, CBCA #### [facility] ([id number]) [address] [place] [address] 82405NIGYNVBLWSDJC METABOLIC PANELon 08-14-2666Eclhxch [Mass/Vol]3.6 g/dLNormal3.2-5.3PUniversity Hospitals TriPoint Medical CenterComment on above:Performed By: #### 3040-3, CMP, CBCA #### [facility] ([id number]) [address] [place] [address] 36800SAE [Catalytic activity/Vol]59 U/UIdjlhw07-218AueZnbzskMemorial Hermann Sugar Land HospitalComment on above:Performed By: #### 3040-3, CMP, CBCA #### [facility] ([id number]) [address] [place] [address] 05595IZB [Catalytic activity/Vol]18 U/LNormal<=40Wilson HealthComment on above:Performed By: #### 3040-3, CMP, CBCA #### [facility] ([id number]) [address] [place] [address] 14613Miojc gap [Moles/Vol]9 mmol/LNormal5-15Wilson HealthComment on above:Performed By: #### 3040-3, CMP, CBCA #### [facility] ([id number]) [address] [place] [address], [place] [address]KVD [Catalytic activity/Vol]15 U/LNormal<=41ProMemorial Hermann Sugar Land HospitalComment on above:Performed By: #### 3040-3, CMP, CBCA #### [facility] ([id number]) [address] [place] [address], [place] [address]Cnctywgbw [Mass/Vol]1.0 mg/dLNormal0.3-1.2PUniversity Hospitals TriPoint Medical CenterComment on above:Performed By: #### 3040-3, CMP, CBCA #### [facility] ([id number]) [address] [place] [address], [place] [address]Aznlpre [Mass/Vol]8.8 mg/dLNormal8.5-10.5PUniversity Hospitals TriPoint Medical CenterComment on above:Performed By: #### 3040-3, CMP, CBCA #### [facility] ([id number]) [address] [place] [address], [place] [address]Tmkisnrk [Moles/Vol]105 mmol/PQhpkxa89-906PwnCgtlzlMemorial Hermann Sugar Land HospitalComment on above:Performed By: #### 3040-3, CMP, CBCA #### [facility] ([id number]) [address] [place] [address], [place] [address]OJ7 [Moles/Vol]24 mmol/KCdfopj87-85GaeZufrefUniversity Hospitals TriPoint Medical Center Comment on above:Performed By: #### 3040-3, CMP, CBCA #### [facility] ([id number]) [address] [place] [address], [place] [address]Brtwyiflah [Mass/Vol]1.18 mg/dLNormal0.70-1.20ProMemorial Hermann Sugar Land HospitalComment on above:Result Comment: METHOD TRACEABLE TO IDMS STANDARD Performed By: #### 3040-3JUSTIN, MKA #### [facility] ([id number]) [address] [place] [address] 40669MUT/1.73 sq M.predicted among non-blacks MDRD (S/P/Bld) [Vol rate/Area]68 mL/min/{1.73_m2}Normal>=60ProMemorial Hermann Sugar Land HospitalComment on above:Result Comment: eGFR not reported due to non-numeric value for Creatinine. Reported eGFR is based on the CKD-EPI 2020 equation that does not use a race coefficient.Performed By: #### 3040-3JUSTIN, ELKE #### [facility] ([id number]) [address] [place] [address] 63669Txbmuxl [Mass/Vol]189 mg/uYPgfc94-68EwaHqietzWilson Health Comment on above:Performed By: #### 3040-3JUSTIN, CBCAbram #### [facility] ([id number]) [address] [place] [address] 95189Rowmkyykw [Moles/Vol]3.9 mmol/LNormal3.5-5.0ProMemorial Hermann Sugar Land HospitalComment on above:Performed By: #### 3040-3JUSTIN, CBCA #### [facility] ([id number]) [address] [place] [address] 57602Kahmzgy [Mass/Vol]6.1 g/dLNormal6.0-8.0ProMemorial Hermann [facility] HospitalComment on above:Performed By: #### 3040-3JUSTIN, CBCA #### [facility] ([id number]) [address] [place] [address] 82322Mlcbts [Moles/Vol]138 mmol/XSfjckc378-777EryKtgghj [facility] HospitalComment on above:Performed By: #### 3040-3, JUSTIN, CBCA #### [facility] ([id number]) [address] [place] [address] [place] [address]Onrc nitrogen [Mass/Vol]17 mg/dLNormal5-27Wilson HealthComment on above:Performed By: #### 3040-3, CMP, CBCA #### [facility] ([id number]) [address] [place] [address] 16149FJBWOGLSXru 63-21-7480Uoerveseu [Mass/Vol]1.8 mg/dLNormal 1.8-2.6ProMemorial Hermann Sugar Land HospitalComment on above:Performed By: #### 3040-3, CMP, CBCA #### [facility] ([id number]) [address] [place] [address] 58946KK RETROPERITONEAL LIMITEDon 14-09-6928MF RETROPERITONEAL LIMITEDUS RETROPERITONEAL LIMITED ULTRASOUND RETROPERITONEUM INDICATION: [...] by Vernon Ceballos MD on 10/05/2025 12:34 PMNormalProUT Health [facility] WITH AUTO DIFFERENTIALon 54-62-4970SPARVCLDV ABSOLUTE COUNT BY AUTOMATED COUNT0.0 X10^9/LNormal0.0-0.2Pro[facility]. [facility]'S Regional Medical CenterComment on above:Performed By: #### 3040-3, CMP, CBCA #### [facility] ([id number]) [address] [place] [address] 24505BMYKBOWTV RELATIVE PERCENT BY AUTOMATED COUNT0.8 %Normal [facility]'S Regional Medical CenterComment on above:Performed By: #### 3040-3, CMP, CBCA #### [facility] ([id number]) [address] [place], [place] [address]LZDVIELTZUA DIFFERENTIAL TYPEAUTOMATED DIFFERENTIALNormal [facility] HealthComment on above:Performed By: #### 3040-3, CMP, CBCA #### [facility] ([id number]) [address] [place] [address] 72971Yutiuqlqljq (Bld) [#/Vol]0.1 10*3/uLNormal0.0-0.4Wilson HealthComment on above:Performed By: #### 3040-3, CMP, CBCA #### [facility] ([id number]) [address] [place] [address] 93534EJSZYVDNEKO RELATIVE PERCENT BY AUTOMATED COUNT2.6 %Normal [facility] HealthComment on above:Performed By: #### 3040-3, CMP, CBCA #### [facility] ([id number]) [address] [place] [address] 79488Umkeeaivwwh distribution width (RBC) [Ratio]13.3 %Rufqnh23.5-15 [facility] HealthComment on above:Performed By: #### 3040-3, CMP, CBCA #### [facility] ([id number]) [address] [place] [address] 60099Sveggehxph (Bld) [Volume fraction]40.4 %Xauuvq90-47DpgOprfjzMemorial Hermann Sugar Land HospitalComment on above:Performed By: #### 3040-3, CMP, CBCA #### [facility] ([id number]) [address] [place] [address] 53370Ybjtsskfii (Bld) [Mass/Vol]14.0 g/qMUamlhz73-53TehUwhlvyMemorial Hermann Sugar Land HospitalComment on above:Performed By: #### 3040-3, CMP, CBCA #### [facility] ([id number]) [address] [place] [address] 83002Jlumtgprkdu (Bld) [#/Vol]1.0 10*3/uLNormal1.0-3.5Pro[facility] St. [facility]'S Regional Medical CenterComment on above:Performed By: #### 3040-3, CMP, CBCA #### [facility] ([id number]) [address] [place] [address] 79888OEHXKYYZNDF RELATIVE PERCENT BY AUTOMATED COUNT22.8 %Normal [facility] Regional Medical CenterComment on above:Performed By: #### 3040-3, CMP, CBCA #### [facility] ([id number]) [address] [place] [address] 69575GSM (RBC) [Entitic mass]31.0 ntJfbela41-97ApbJmwltzWilson HealthComment on above:Performed By: #### 3040-3, CMP, CBCA #### [facility] ([id number]) [address] [place] [address] 58601CZHA (RBC) [Mass/Vol]34.6 g/pIAvofkt00-02AmqQjdfgsMemorial Hermann Sugar Land HospitalComment on above:Performed By: #### 3040-3, CMP, CBCA #### [facility] ([id number]) [address] [place] [address] 26338QXP (RBC) [Entitic vol]90 rISwrxiq87-425ApsTktczs [facility] HospitalComment on above:Performed By: #### 3040-3, CMP, CBCA #### [facility] ([id number]) [address] [place] [address] 76860Obspilmoq (Bld) [#/Vol]0.4 10*3/uLNormal0.0-0.9Wilson HealthComment on above:Performed By: #### 3040-3, CMP, CBCA #### [facility] ([id number]) [address] [place] [address] 99504PAXRQHXMX RELATIVE PERCENT BY AUTOMATED COUNT8.3 %Normal [facility] HealthComment on above:Performed By: #### 3040-3, CMP, CBCA #### [facility] ([id number]) [address] [place] [address] 40846GBBADRECJBS ABSOLUTE COUNT BY AUTOMATED COUNT2.9 X10^9/LNormal 1.5-6.6ProMemorial Hermann [facility] HospitalComment on above:Performed By: #### 3040-3, CMP, CBCA #### [facility] ([id number]) [address] [place] [address] 65588DIEWNVSBZDU RELATIVE PERCENT BY AUTOMATED COUNT65.5 %Normal [facility] HealthComment on above:Performed By: #### 3040-3, CMP, CBCA #### [facility] ([id number]) [address] [place] [address] 27916Abmfjmql mean volume (Bld) [Entitic vol]7.9 fLNormal7-12 [facility] HealthComment on above:Performed By: #### 3040-3, CMP, CBCA #### [facility] ([id number]) [address] [place] [address] 36325Cfmpovzbh (Bld) [#/Vol]141 10*3/nPJgp390-400PfrMlsmfeMemorial Hermann Sugar Land HospitalComment on above:Performed By: #### 3040-3, CMP, CBCA #### [facility] ([id number]) [address] [place] [address] 50572XQX COUNT4.51 X10^12/LNormal4.1-5.7[facility] Comment on above:Performed By: #### 3040-3, CMP, CBCA #### [facility] ([id number]) [address] [place] [address] 26406WCC (Bld) [#/Vol]4.5 10*3/uLNormal4-11Wilson HealthComment on above:Performed By: #### 3040-3, CMP, CBCA #### [facility] ([id number]) [address] [place] [address] 29478QQZJCTKNABUWQ METABOLIC PANELon 97-31-6389Vnrjuag [Mass/Vol]3.9 g/dLNormal3.2-5.3PUniversity Hospitals TriPoint Medical CenterComment on above:Performed By: #### 3040-3, CMP, CBCA #### [facility] ([id number]) [address] [place] [address], [place] [address]ILU [Catalytic activity/Vol]60 U/QGpimiw00-765NnbHblhhlMemorial Hermann Sugar Land HospitalComment on above:Performed By: #### 3040-3, CMP, CBCA #### [facility] ([id number]) [address] [place] [address], [place] [address]TUD [Catalytic activity/Vol]20 U/LNormal<=40ProMemorial Hermann [facility] HospitalComment on above:Performed By: #### 3040-3, CMP, CBCA #### [facility] ([id number]) [address] [place] [address] 56143Yvidz gap [Moles/Vol]10 mmol/LNormal5-15Wilson HealthComment on above:Performed By: #### 3040-3, CMP, CBCA #### [facility] ([id number]) [address] [place] [address] 35735KHB [Catalytic activity/Vol]17 U/LNormal<=41ProMemorial [facility] HospitalComment on above:Performed By: #### 3040-3, CMP, CBCA #### [facility] ([id number]) [address] [place] [address] 90891Nyoceghvp [Mass/Vol]1.5 mg/dLHigh0.3-1.2PUniversity Hospitals TriPoint Medical CenterComment on above:Performed By: #### 3040-3, JUSTIN, CBCA #### [facility] ([id number]) [address] [place] [address] 26453Naxjxcj [Mass/Vol]9.6 mg/dLNormal8.5-10.5PUniversity Hospitals TriPoint Medical CenterComment on above:Performed By: #### 3040-3, JUSTIN, CBCA #### [facility] ([id number]) [address] [place] [address] 04796Erlamvxm [Moles/Vol]104 mmol/ORocvyv56-858CikLbxzqjWilson HealthComment on above:Performed By: #### 3040-3JUSTIN, CBCA #### [facility] ([id number]) [address] [place] [address] 71773LL5 [Moles/Vol]23 mmol/VSxisrj70-13VkeCaqpshUniversity Hospitals TriPoint Medical Center Comment on above:Performed By: #### 3040-3, JUSTIN, CBCA #### [facility] ([id number]) [address] [place] [address] 00058Fjtdyibjcv [Mass/Vol]1.02 mg/dLNormal0.70-1.20Wilson HealthComment on above:Result Comment: METHOD TRACEABLE TO IDMS STANDARD Performed By: #### 3040-3, JUSTIN, CBCA #### [facility] ([id number]) [address] [place] [address] 55003CRB/1.73 sq M.predicted among non-blacks MDRD (S/P/Bld) [Vol rate/Area]81 mL/min/{1.73_m2}Normal>=60ProMemorial Hermann Sugar Land HospitalComment on above:Result Comment: eGFR not reported due to non-numeric value for Creatinine. Reported eGFR is based on the CKD-EPI 202 equation that does not use a race coefficient.Performed By: #### 3040-3, JUSTIN, CBCA #### [facility] ([id number]) [address] [place] [address], [place] [address]Uimhawg [Mass/Vol]147 mg/yBHczt53-26ZykXhqcebMemorial Hermann Sugar [facility] Hospital Comment on above:Performed By: #### 3040-3, CMP, CBCA #### [facility] ([id number]) [address] [place] [address], [place] [address]Idticoxkv [Moles/Vol]4.1 mmol/LNormal3.5-5.0ProMemorial Hermann [facility] HospitalComment on above:Performed By: #### 3040-3, CMP, CBCA #### [facility] ([id number]) [address] [place] [address], [place] [address]Uqjuvyj [Mass/Vol]6.5 g/dLNormal6.0-8.0ProMemorial Hermann [facility] HospitalComment on above:Performed By: #### 304Toribio-3, CMP, CBCA #### [facility] ([id number]) [address] [place] [address], [place] [address]Ztbfix [Moles/Vol]137 mmol/NFhstzt532-280GdtKxluic Fremont HospitalComment on above:Performed By: #### 3040-3, CMP, CBCA #### [facility] ([id number]) [address] [place] [address]Qbvy nitrogen [Mass/Vol]16 mg/dLNormal5-27ProMemorial [facility]ann [facility] HospitalComment on above:Performed By: #### 3040-3, CMP, CBCA #### [facility] ([id number]) [address] [place] [address], [place] [address]GBMKMEAKTci 47-20-2034Iftayofry [Mass/Vol]2.0 mg/dLNormal 1.8-2.6ProMemorial Hermann [facility] HospitalComment on above:Performed By: #### 3040-3, CMP, CBCA #### [facility] ([id number]) [address] [place], [place] [address], [place] [address]CCZW PATHOGENS PANEL/WZUP-DED-3tp 76-33-5350VWOP-CoV-2 (COVID- 19) RNA MARTHA+probe Ql (Resp)SARS COV [...] CHLAM.PNEUMONIAE Not Detected MYCOPLASMA PNEUMONIAE Not DetectedNormalNot DetectedProMemorial Hermann [facility] HospitalComment on above:Order Comment: The [employer] Respiratory Panel 2.1 (RP2.1) is a multiplexed [...] infection.Performed By: #### 3040-3, CMP, CBCA #### [facility] ([id number]) [address] [place] [address]GNYGhr 11-25-0337mGNC Coag (Bld) [Time]27 aSpqqam19-14ZjuGhchtzMemorial Hermann Sugar Land HospitalComment on above:Performed By: #### PTT ####[facility] ([facility], [facility])[address] [place] [address] VIRBASIC METABOLIC PANELon 21-97-3191Eqqlw gap [Moles/Vol]7 mmol/LNormal5-15ProMemorial Hermann [facility] HospitalComment on above:Performed By: #### 3040-3, CMP, CBCA #### [facility] CAMPUS ([id number]) [address] [place] [address] 80757Jxmxfle [Mass/Vol]8.7 mg/dLNormal8.5-10.5PUniversity Hospitals TriPoint Medical CenterComment on above:Performed By: #### 3040-3, CMP, CBCA #### [facility] ([id number]) [address] [place] [address], [place] [address]Braxancw [Moles/Vol]102 mmol/SBesemq21-515WsjSzcrswMemorial Hermann Sugar Land HospitalComment on above:Performed By: #### 3040-3, CMP, CBCA #### [facility] ([id number]) [address] [place] [address], [place] [address]ZW2 [Moles/Vol]24 mmol/OOeujom28-86UkqHymodoUniversity Hospitals TriPoint Medical Center Comment on above:Performed By: #### 3040-3, CMP, CBCA #### [facility] ([id number]) [address] [place] [address] 41246Hxjxctixgf [Mass/Vol]1.06 mg/dLNormal0.70-1.20ProMemorial Hermann Sugar Land HospitalComment on above:Result Comment: METHOD TRACEABLE TO IDMS STANDARD Performed By: #### 3040-3JUSTIN CBCA #### [facility] ([id number]) [address] [place] [address] 30827UQJ/1.73 sq M.predicted among non-blacks MDRD (S/P/Bld) [Vol rate/Area]77 mL/min/{1.73_m2}Normal>=60ProMemorial Hermann Sugar Land HospitalComment on above:Result Comment: eGFR not reported due to non-numeric value for Creatinine. Reported eGFR is based on the CKD-EPI 2020 equation that does not use a race coefficient.Performed By: #### 3040-3JUSTIN CBCA #### [facility] ([id number]) [address] [place] [address] 13075Qcoyvfv [Mass/Vol]186 mg/eSJori97-85WvkJgtsdmWilson Health Comment on above:Performed By: #### 3040-3JUSTIN CBCA #### [facility] ([id number]) [address] [place] [address] 62747Rjspmhlnc [Moles/Vol]4.3 mmol/LNormal3.5-5.0ProMemorial Hermann Sugar Land HospitalComment on above:Performed By: #### 3040-3JUSTIN CBCA #### [facility] ([id number]) [address] [place] [address] 45479Chgucp [Moles/Vol]133 mmol/JSur751-331XrsGpzkxvMemorial Hermann Sugar Land HospitalComment on above:Performed By: #### 3040-3JUSTIN CBCA #### [facility] ([id number]) [address] [place] [address] 83229Iiit nitrogen [Mass/Vol]14 mg/dLNormal5-27ProMemorial Hermann Sugar Land HospitalComment on above:Performed By: #### 3040-3, CMP, CBCA #### [facility] ([id number]) [address] [place] [address] 12324DVNVMFE GLUCOSEon 07-72-5182Bhindqh [Mass/Vol]177 mg/dLHigh 65-99ProMemorial Hermann Sugar Land HospitalComment on above:Performed By: #### BEDG ####[facility] (FORMERLY [facility], [facility])[address] [place] [address], [id number] VIRCBC WITH AUTO DIFFERENTIALon 87-20-9822IUIBSSNYS ABSOLUTE COUNT BY AUTOMATED COUNT0.0 X10^9/LNormal0.0-0.2ProMedica St[facility] Regional Medical CenterComformerly [facility] on above: Performed By: #### 3040-3, CMP, CBCA #### [facility] ([id number]) [address] [place] [address] 69178PQBDRWTOG RELATIVE PERCENT BY AUTOMATED COUNT0.8 %Normal Wilson HealthComment on above:Performed By: #### 3040-3, CMP, CBCA #### [facility] ([id number]) [address] [place] [address] 66039ZXNUEJXFYEK DIFFERENTIAL TYPEAUTOMATED DIFFERENTIALNormal [facility] on above:Performed By: #### 3040-3, CMP, CBCA #### [facility] ([id number]) [address] [place] [address] 24814Shromjiddkj (Bld) [#/Vol]0.1 10*3/uLNormal0.0-0.4Wilson HealthComformerly [facility] on above:Performed By: #### 3040-3, CMP, CBCA #### [facility] ([id number]) [address] [place] [address] 91693GDVUHYVBIZB RELATIVE PERCENT BY AUTOMATED COUNT2.2 %Normal [facility] HealthComformerly [facility] on above:Performed By: #### 3040-3, CMP, CBCA #### [facility] ([id number]) [address] [place] [address] 75898Fpxcavdicvo distribution width (RBC) [Ratio]13.2 %Xahxgh86.5-15 Wilson HealthComment on above:Performed By: #### 3040-3, CMP, CBCA #### [facility] ([id number]) [address] [place] [address] 56759Pwitthbpqw (Bld) [Volume fraction]37.6 %Xmw67-75CwnLhjottWilson HealthComment on above:Performed By: #### 3040-3, CMP, CBCA #### [facility] ([id number]) [address] [place] [address] 15573Tzexozuieh (Bld) [Mass/Vol]13.1 g/aBRzodhl10-92BvaHuzxjgWilson HealthComment on above:Performed By: #### 3040-3, CMP, CBCA #### [facility] ([id number]) [address] [place] [address] 95729Uglafezocww (Bld) [#/Vol]0.7 10*3/uLLow1.0-3.5PUniversity Hospitals TriPoint Medical CenterComment on above:Performed By: #### 3040-3, CMP, CBCA #### [facility] ([id number]) [address] [place] [address] 19831ZVFIONMZWHI RELATIVE PERCENT BY AUTOMATED COUNT17.4 %Normal Wilson HealthComment on above:Performed By: #### 3040-3, CMP, CBCA #### [facility] ([id number]) [address] [place] [address] 59802BHD (RBC) [Entitic mass]31.1 epRmzqzs22-62VvcMjvokpWilson HealthComment on above:Performed By: #### 3040-3, CMP, CBCA #### [facility] ([id number]) [address] [place] [address] 80905SDXD (RBC) [Mass/Vol]35.0 g/sKPsggud98-81TlbDdepngMemorial Hermann Sugar Land HospitalComment on above:Performed By: #### 3040-3, CMP, CBCA #### [facility] ([id number]) [address] [place] [address] 80983OWC (RBC) [Entitic vol]89 bVXhpdav21-309HclGjvysb [facility]ont HospitalComment on above:Performed By: #### 3040-3, CMP, CBCA #### [facility] ([id number]) [address] [place] [address] 68742Afghttzjv (Bld) [#/Vol]0.4 10*3/uLNormal0.0-0.9Wilson HealthComment on above:Performed By: #### 3040-3, CMP, CBCA #### [facility] ([id number]) [address] [place] [address] 83160ESLNMISNC RELATIVE PERCENT BY AUTOMATED COUNT9.8 %Normal Wilson HealthComment on above:Performed By: #### 3040-3, CMP, CBCA #### [facility] ([id number]) [address] [place] [address] 22936QYDQQGKALUP ABSOLUTE COUNT BY AUTOMATED COUNT2.9 X10^9/LNormal 1.5-6.6ProMemorial Hermann Sugar Land HospitalComment on above:Performed By: #### 3040-3, CMP, CBCA #### [facility] ([id number]) [address] [place] [address] 57039SCRSPWRTIOD RELATIVE PERCENT BY AUTOMATED COUNT69.8 %Normal Wilson HealthComment on above:Performed By: #### 3040-3, CMP, CBCA #### [facility] ([id number]) [address] [place] [address] 83053Kphlyiaz mean volume (Bld) [Entitic vol]7.7 fLNormal7-12 Wilson HealthComment on above:Performed By: #### 3040-3, CMP, CBCA #### [facility] ([id number]) [address] [place] [address] 51989Wnelqdyrr (Bld) [#/Vol]136 10*3/yDHvx716-220TrzDixapqMemorial Hermann Sugar Land HospitalComment on above:Performed By: #### 3040-3, CMP, CBCA #### [facility] ([id number]) [address] [place] [address] 27243GNT COUNT4.23 X10^12/LNormal4.1-5.7[facility] Comment on above:Performed By: #### 3040-3, CMP, CBCA #### [facility] ([id number]) [address] [place] [address] 35952GZF (Bld) [#/Vol]4.2 10*3/uLNormal4-11Wilson HealthComment on above:Performed By: #### 3040-3, CMP, CBCA #### [facility] ([id number]) [address] [place] [address] 04388RE BRAIN WO CONT STROKE ALERTon 98-42-7847OP BRAIN WO CONT STROKE ALERTCT BRAIN WO [...] by Tracy Samayoa MD on 10/03/2025 7:51 [facility] 75-93-0802OW CTA CAROTIDCT CTA CAROTID CLINICAL INFORMATION: dizziness [...] by Mehran Goldstein MD on 10/03/2025 8:12 [facility] HEADon 21-20-4045AN CTA HEADCT CTA HEAD Examination: CT angiogram of the brain ([place]) Clinical History:Dizziness Comparison:None Contrast:100 mL of Omnipaque 350 administered intravenously. Procedure: Multidetector CT angiogram performed through the [place] using 3D reconstructions and source images displayed on a PACS workstation and reviewed by the radiologist. Automatic exposure control (AEC) was utilized. Findings: CT ANGIOGRAM OF THE [place]. There is no aneurysm or major vessel occlusion of the [place]. Flow is demonstrated within the vertebral arteries, basilar artery, and bilateral posterior cerebral arteries, middle cerebral arteries and anterior cerebral arteries. IMPRESSION: 1. Negative CT angiogram [place]. All CT scans at this facility use dose modulation, iterative reconstruction, and/or weight based dosing when appropriate to reduce radiation dose to as low as reasonably achievable. Finalized by Abhinav Beaulieu MD on 10/03/2025 8:11 AMNormalWilson HealthHEMOGLOBIN A1Con 48-06-8599Cxasxic [Mass/Vol]131 mg/dLNormalWilson HealthComment on above:Performed By: #### 3040-3JUSTIN CBCA #### [facility] ([id number]) [address] [place] [address] 89839LoM9o (Bld) [Mass fraction]6.2 %High4.4-5.6Wilson HealthComment on above:Result Comment: ADA Guidelines Result HgbA1c Normal : less than 5.7 % Prediabetes : 5.7 % to 6.4 % Diabetes : > 6.4 % Use with caution in patients with abnormal hemoglobin variants as the half-life of red blood cells and in vivo glycation rates are affected.Performed By: #### 3040-3, JUSTIN, CBCA #### [facility] ([id number]) [address] [place] [address] 25307FHAOB PROFILEon 41-63-5733Zunrsnvkooc [Mass/Vol]121 mg/dLLow 150-200ProMemorial Hermann Sugar Land HospitalComment on above:Performed By: #### 3040-3JUSTIN, CBCA #### [facility] ([id number]) [address] [place] [address] 36645Tkuuuqkxnhx in HDL [Mass/Vol]42 mg/dLNormal>39Wilson HealthComment on above:Result Comment: HDL <40 mg/dL - High Risk HDL > or = 40mg/dL- Desirable HDL >60 mg/dL - Negative RiskPerformed By: #### 3040-3, JUSTIN, CBCA #### [facility] ([id number]) [address] [place] [address] 93905Riopmkwyddj in LDL [Mass/Vol]61 mg/dLNormal<130Wilson HealthComment on above:Result Comment: LDL <100 mg/dL - Desirable LDL >160 mg/dL - High RiskPerformed By: #### 3040-3, CMP, CBCA #### [facility] ([id number]) [address] [place] [address] 70497SFLBURIVVWN:HDL2.7Ctzydk8.0-5.0[facility] Comment on above:Performed By: #### 3040-3, CMP, CBCA #### [facility] ([id number]) [address] [place] [address] 53816Kmnhoqvynrse [Mass/Vol]89 mg/dSEuhgmy21-677EguPlmrvh [facility] HospitalComment on above:Performed By: #### 3040-3, CMP, CBCA #### [facility] ([id number]) [address] [place] [address] 13659AORQ LOW PRZIJZSBTCH86 mg/dLNormal0-30Wilson HealthComment on above:Performed By: #### 3040-3, CMP, CBCA #### [facility] ([id number]) [address] [place] [address] 45042FKXDG PANELon 97-00-9076Nphhmeu [Mass/Vol]3.5 g/dLNormal3.2-5.3 Wilson HealthComment on above:Performed By: #### 3040-3, CMP, CBCA #### [facility] ([id number]) [address] [place] [address] 22349JDI [Catalytic activity/Vol]61 U/ENhmtlp41-818SrpMjaiwvMemorial Hermann Sugar Land HospitalComment on above:Performed By: #### 3040-3, CMP, CBCA #### [facility] ([id number]) [address] [place] [address] 14663LIY [Catalytic activity/Vol]17 U/LNormal<=40ProMemorial Hermann Sugar Land HospitalComment on above:Performed By: #### 3040-3, JUSTIN, CBCA #### [facility] ([id number]) [address] [place] [address] 68200QRO [Catalytic activity/Vol]13 U/LNormal<=41ProMemorial Hermann Sugar Land HospitalComment on above:Performed By: #### 3040-3, JUSTIN, CBCA #### [facility] ([id number]) [address] [place] [address] 51710Hyrqnitcb [Mass/Vol]1.0 mg/dLNormal0.3-1.2ProMedSonora Regional Medical CenterComment on above:Performed By: #### 3040-3, JUSTIN, CBCA #### [facility] ([id number]) [address] [place] [address] 54755Zdibydqkj.indirect [Mass/Vol]0.1 mg/dLNormal<=0.4ProMemorial Hermann Sugar Land HospitalComment on above:Performed By: #### 3040-3, JUSTIN, CBCA #### [facility] ([id number]) [address] [place] [address] 89078Mvvsfiv [Mass/Vol]6.1 g/dLNormal6.0-8.0ProMemorial Hermann Sugar Land HospitalComment on above:Performed By: #### 3040-3, JUSTIN, CBCA #### [facility] ([id number]) [address] [place] [address] 99396BI BRAIN WO CONTon 75-59-4744WY BRAIN WO CONTMR BRAIN WO CONT EXAM: [...] by Eulogio Cruz MD on 10/03/2025 1:52 PMNormalProMemorial Hermann [facility] Hospital PROTIME AND INRon 37-12-0890QGX0.0Goslys7.9-1.2PUniversity Hospitals TriPoint Medical CenterComment on above:Performed By: #### PINR ####[facility] ([facility], [facility])[address] [place], [place] [address] VIRPT Coag (PPP) [Time]11.2 sNormal 9.8-13.2PUniversity Hospitals TriPoint Medical CenterComment on above:Performed By: #### PINR ####[facility] ([address] VIRTHYROID PROFILE INCLUDES TSH FT4on 08-02-4453Uvhl T4 [Mass/Vol]0.99 ng/dL Normal0.61-1.60Wilson HealthComment on above:Performed By: #### 3040-3, CMP, CBCA #### [facility] ([id number]) [address] [place] [address], FIRST [address]LO[address] [place], [place] [address]IFX8.39 uIU/mLNormal0.49-4.67Wilson HealthComment on above:Performed By: #### 3040-3, JUSTIN, CBCA #### [facility] ([id number]) [address] [place] [address], [place] [address]CIKL I, HIGH SENSITIVITY 1 HOURon 57-38-0980VENKTMDR I, HIGH SENSITIVITY4 ng/LNormal<21ProMemorial Hermann Sugar Land HospitalComment on above:Performed By: #### 3040Florencia, JUSTIN, CBCA #### [facility] ([id number]) [address] [place] [address], [place] [address]VOVTCATX I, HIGH SENSITIVITY 0 HOURon 71-71-5750GVOURSKS I, HIGH SENSITIVITY4 ng/LNormal<21ProMemorial Hermann Sugar Land HospitalComment on above: Performed By: #### 3040Florencia, JUSTIN, CBCA #### [facility] ([id number]) [address] [place] [address], [place] [address]IZCUVEB B12on 51-52-6749Uocdhzvdw (Vitamin B12) [Mass/Vol]186 pg/bFCakzbj170-526FcoVismvrUniversity Hospitals TriPoint Medical CenterComment on above:Performed By: #### 3040-Lucy, JUSTIN, CBCA #### [facility] ([id number]) [address] [place] [address], [place] [address]XWCGUHE D 25 HYDROXYon 04-26-5558OPGFCWW D 25 HYD TOT<^7.0Low 30.0-100.0Wilson HealthComment on above:Order Comment: Vitamin D status 25 [place] Vitamin D D eficiency <20 ng/mLInsufficiency 20-29 ng/mLSufficiency 30-100 ng/mLToxicity >100 ng/mLNOTE: A pediatric reference range has not been established by the log buncher of this kit. The [place] [employer] recommends a Vitamin D level of = or >20ng/mL in infants and children.Performed By: #### 3040-3, CMP, CBCA #### [facility] ([id number]) [address] [facility], FIRST [address]LO[address] [place], [place] [address]SR CHEST 1 VWon 47-81-4216HC CHEST 1 VWXR CHEST 1 VW EXAM: [...] Cruz MD on 10/03/2025 6:[address] [facility] Ambulatory Visit Summaryon 04-73-6228Dwscvrdwmi Visit SummaryAmbulatory Visit Summary MEREDITH VILLATORO :1960 [...] AM EST With: Where: [facility] [address] [place] [address]- Wednesday2025 12:45 PM EST With: Leila LAMBERT MD Where: [facility] [address] [place] [address]- You Need to Schedule the Following Appointments Follow Up with PETRA OVIEDO, Leila Simpson, URL When: Comments: 3 mos w/ PVR Where: [address] [place] [address] You Need to Complete the Following PSA Total, Blood, Routine collect, *Est. 03/18/26 +/- 28 day(s), Order for future visit, Lab Collect, Prostate cancer, Required & Missing, Print Label By Order Location Medications What How Much When Why Instructions Changed mirabegron (Myrbetriq 50 mg oral tablet, extended release) 2 Tablets By Mouth Every day Urge incontinence Duration: 90 Days 100mg daily. Pickup at [facility] [phone] Unchanged bicalutamide (Casodex 50 mg Tab) 1 [...] prescribingphysician if questions or concerns Pharmacy Information [facility] [id number]: [address] [place], [place] [phone] Medications and Immunizations Administered Given Eligard 45 [...] With the urethra blocked (more content not included)...NormalDiley Ridge Medical CenterUrology Office/Clinic Noteon 73-89-8447Gvqqyed Office/Clinic NoteUrology Office/Clinic Note Chief Complaint PSA and scarlet [facility] Staff 65 yr old male here for [...] - <0.1 MRI prostate w/wo con 01/08/22 [facility] - PI-RADS 4 and 5. MRI fusion bx 02/05/22 - Judd 8 (4+4), 18 cores, grade group 4. NM Whole body bone scan 02/20/22 [facility] - No evidence of mets disease EBRT 03/23/22 - 04/24/22. Brachytherapy 05/21/22. Lupron given 02/27/22 and 09/04/22. Experienced breast tenderness and enlargement. Mammogram 05/11/23 - mild benign-appearing gynecomastia in the left retroareolar region. BI-RADS 2. PE 09/13/23: Lt breast tender upon exam. S/p Cysto, TUR of prostate mass ~4 cm 02/22/25. Path shows Tie Siding 9 (4+5), cribriform, ductal (papillary), and sheets [...] mass ~4 cm 02/22/25. 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 S/p Cysto 08/13/25 - [...] Simpson, URL [address] [place] [address] [place] [address] Additional Instructions: 3 mos w/ PVR Patient Education Urinary Incontinence I, Molly Murray, personally scribed for Dr. Lambert on 09/17/2025 10:09:34. . Documentation recorded by the scribe, Molly Murray, accurately reflects the services(s) (more contentnot included)...[facility] Comment on above:Result Comment: Electronically Signed By: Leila LAMBERT MD\.br\Date and Time Signed: 09/17/25 10:14 EDT\.br\Electronically Co-Signed By: Molly Murray\.br\Date and Time Co-Signed: 09/17/25 10:10 EDTPSA Totalon 40-44-9997JIG Total<0.1Low0.1-3.5Fisher [facility] Medical CenterComment on above: Result Comment: The concentration of PSA determined by different manufacturers can vary due to differences in assay methods and reagent specificity. Values obtained from different assay methods cannot be used interchangeably. The methodology used for this result was chemiluminescence using [employer]'s Access Hybrite[employer] PSA reagent.Performed By: #### [id number] #### [facility] [address] [place], [place] [address]Wtkccsagld Visit Summaryon 12-31-2749Vfrmmslygg Visit Summary Ambulatory Visit Summary MEREDITH VILLATORO [...] AM EDT With: Where: [facility] [address] [address]- Wednesday 10:45 AM EDT With: Leila LAMBERT MD Where: [facility] [address] [address]- You Need to Schedule the Following Appointments Follow Up with Leila LAMBERT MD, URL When: Comments: f/u already scheduled 09/17/25 w/ PSADony Where: [address] [place] [address] Medications What How Much When Why Instructions [...] a comb (more content not included)...Normal Delfino [facility] CenterUrology Office/Clinic Noteon 20-68-5195Croycqj Office/Clinic NoteUrology Office/Clinic Note Chief Complaint Pt [...] - 0.5 MRI prostate w/wo con 01/08/22 [facility] - PI-RADS 4 and 5. MRI fusion [...] Contact Information PETRA OVIEDO, Leila Simpson, URL [address] [place] [address] [place] [address] Additional Instructions: f/u already scheduled 09/17/25 w/ PSADony Patient Education Prostate Cancer I, Molly Murray, personally scribed for Dr. Lambert on 08/13/2025 08:44:08. . Documentation recorded by the scribeMolly, accurately reflects the services(s) I performed and decisions made by me. Authenticated by Dr. Lambert on 08/13/2025 08:50:59. Problem List/Past Medical History Ongoing Arthritis Bilateral hydrocele BPH with obstruction/lo (more content not included)...[facility] HospitalComment on above:Result Comment: Electronically Signed By: Leila LAMBERT MD\.br\Date and Time Signed: 08/13/25 08:51 EDT\.br\Electronically Co- Signed By: Molly Murray\.br\Date and Time Co-Signed: 08/13/25 08:44 EDTAPTTon 73-68-9909kFKC Coag (Bld) [Time]28 xLbrbat42-78UdeUucyyw [facility]S Regional Medical CenterComment on above:Performed By: #### COVFLR #### [facility] ([id number]) [address] [place] [address], FIRST FLO[address] [place], [place] [address]V-ZWJD NATRIURETIC PEPTIDEon 26-66-5643Lsqdnhufyog peptide B (Bld) [Mass/Vol]140 pg/mLHigh<=100ProMedica Tripp HospitalComment on above: Performed By: #### BNP ####[facility] ([facility])[address] [place] [address] VIRCBC WITH AUTO DIFFERENTIALon 26-72-7572PZYNDFPTZ ABSOLUTE COUNT (10*3/UL) BY AUTOMATED COUNT0.0 10*3/uLNormal0.0-0.2ProMedica St. John'S Regional Medical CenterComment on above:Performed By: #### COVFLR #### [facility] ([id number]) [address] [place] [address] 51123YKJCJEKQH RELATIVE PERCENT BY AUTOMATED COUNT0.9 %Normal Wilson HealthComment on above:Performed By: #### COVFLR #### [facility] ([id number]) [address] [place] [address] 82123QTYBOBTMIRP DIFFERENTIAL TYPEAUTOMATED DIFFERENTIALNormal Wilson HealthComment on above:Performed By: #### COVFLR #### [facility] ([id number]) [address] [place] [address] 632[address]Jhmndcqvqyi (Bld) [#/Vol]0.1 10*3/uLNormal0.0-0.4ProMemorial Hermann Sugar Land HospitalComment on above:Performed By: #### COVFLR #### [facility] ([id number]) [address] [place] [address] 81304HIYVQXXPKOK RELATIVE PERCENT BY AUTOMATED COUNT2.5 %Normal Wilson HealthComment on above:Performed By: #### COVFLR #### [facility] ([id number]) [address] [place] [address] 817[address]Dczzsqfrbov distribution width (RBC) [Ratio]14.5 %Gmvuoj79.5-15 Wilson HealthComment on above:Performed By: #### COVFLR #### [facility] ([id number]) [address] [place] [address] 058[address]Dquhiixlnp (Bld) [Volume fraction]40.7 %Ulvdqc97-47TiaHkicrhWilson HealthComment on above:Performed By: #### COVFLR #### [facility] ([id number]) [address] [place] [address] 46943Ghehgawsqq (Bld) [Mass/Vol]13.9 g/jSLptuak65-90RocLpadghWilson HealthComment on above:Performed By: #### COVFLR #### [facility] ([id number]) [address] [place] [address] 812[address]SAYANOALBNI ABSOLUTE COUNT (10*3/UL) BY AUTOMATED COUNT0.8 10*3/uLLow1.0-3.5ProMedica St. John'S Regional Medical CenterComment on above:Performed By: #### COVFLR #### [facility] ([id number]) [address] [place] [address] 96285REQEHQRETCL RELATIVE PERCENT BY AUTOMATED COUNT17.4 %Normal ProMcrossbridge behavioral healtha St. John'S Regional Medical CenterComment on above:Performed By: #### COVFLR #### [facility] ([id number]) [address] [place] [address] 10864ZKW (RBC) [Entitic mass]29.4 kmBifosx80-20IxrQwqvggWilson HealthComment on above:Performed By: #### COVFLR #### [facility] ([id number]) [address] [place] [address] [id number] (RBC) [Mass/Vol]34.0 g/cZTlbuuf44-70SviOwhzwqMemorial Hermann Sugar Land HospitalComment on above:Performed By: #### COVFLR #### [facility] ([id number]) [address] [place] [address] [id number] (RBC) [Entitic vol]86 aWRlefgs29-427RokCisahpWilson HealthComment on above:Performed By: #### COVFLR #### [facility] ([id number]) [address] [place] [address] [id number] ABSOLUTE COUNT (10*3/UL) BY AUTOMATED COUNT0.4 10*3/uLNormal0.0-0.9Wilson HealthComment on above:Performed By: #### COVFLR #### [facility] ([id number]) [address] [place] [address] [id number] RELATIVE PERCENT BY AUTOMATED COUNT9.3 %Normal Wilson HealthComment on above:Performed By: #### COVFLR #### [facility] ([id number]) [address] [place] [address] [id number] ABSOLUTE COUNT BY AUTOMATED COUNT3.1 10*3/uLNormal 1.5-6.6ProMemorial Hermann Sugar Land HospitalComment on above:Performed By: #### COVFLR #### [facility] ([id number]) [address] [place] [address] [id number] RELATIVE PERCENT BY AUTOMATED COUNT69.9 %Normal Wilson HealthComment on above:Performed By: #### COVFLR #### [facility] ([id number]) [address] [place] [address] [id number] mean volume (Bld) [Entitic vol]8.1 fLNormal7-12 Wilson HealthComment on above:Performed By: #### COVFLR #### [facility] ([id number]) [address] [place] [address] [id number] (Bld) [#/Vol]169 10*3/pWSxawao267-717RpaNmxgyk Fremont HospitalComment on above:Performed By: #### COVFLR #### [facility] ([id number]) [address] [place] [address] 30722KUG COUNT4.72 X10E12/LNormal4.1-5.7[facility] Comment on above:Performed By: #### COVFLR #### [facility] ([id number]) [address] [place] [address] 35093PXY (Bld) [#/Vol]4.4 10*3/uLNormal4-11ProMemorial Hermann Sugar Land HospitalComment on above:Performed By: #### COVFLR #### [facility] ([id number]) [address] [place] [address] 30580ONSHMTYKYKWIE METABOLIC PANELon 98-45-9924Wpmpepj [Mass/Vol]4.4 g/dLNormal3.2-5.3ProMedSonora Regional Medical CenterComment on above:Performed By: #### COVFLR #### [facility] ([id number]) [address] [place] [address], [place] [address]DEX [Catalytic activity/Vol]68 U/DYysfwm14-603HleFauqtwMemorial Hermann Sugar Land HospitalComment on above:Performed By: #### COVFLR #### [facility] ([id number]) [address] [place] [address] 71775ZVX [Catalytic activity/Vol]14 U/LNormal<=40ProMemorial Hermann [facility] Land HospitalComment on above:Performed By: #### COVFLR #### [facility] ([id number]) [address] [place] [address] 16785Rttaz gap [Moles/Vol]9 mmol/LNormal5-15ProMem[facility] HospitalComment on above:Performed By: #### COVFLR #### [facility] ([id number]) [address] [place] [address] 89478FGZ [Catalytic activity/Vol]14 U/LNormal<=41ProMedica Tripp HospitalComment on above:Performed By: #### COVFLR #### [facility] ([id number]) [address] [place] [address], [place] [address]Iakvxztzb [Mass/Vol]1.1 mg/dLNormal0.3-1.2PUniversity Hospitals TriPoint Medical CenterComment on above:Performed By: #### COVFLR #### [facility] ([id number]) [address] [place] [address], [place] [address]Nvzxiog [Mass/Vol]9.7 mg/dLNormal8.5-10.5PUniversity Hospitals TriPoint Medical CenterComment on above:Performed By: #### COVFLR #### [facility] ([id number]) [address] [place] [address] 54909Wpmlkmll [Moles/Vol]108 mmol/ATfljys32-605QzmQbdovyMemorial Hermann Sugar Land HospitalComment on above:Performed By: #### COVFLR #### [facility] ([id number]) [address] [place] [address] 18185KA4 [Moles/Vol]24 mmol/VUfzkzk89-13JzbXewcfaUniversity Hospitals TriPoint Medical Center Comment on above:Performed By: #### COVFLR #### [facility] ([id number]) [address] [place] [address] 37344Nwjxmxrvmm [Mass/Vol]1.38 mg/dLHigh0.70-1.20ProMemorial [facility] HospitalComment on above:Result Comment: METHOD TRACEABLE TO IDMS STANDARD Performed By: #### COVFLR #### [facility] ([id number]) [address] [place] [address] 38621KPS/1.73 sq M.predicted among non-blacks MDRD (S/P/Bld) [Vol rate/Area]56 mL/min/{1.73_m2}Low>=60ProMemorial Hermann [facility] Land HospitalComment on above: Result Comment: eGFR not reported due to non-numeric value for Creatinine. Reported eGFR is based on the CKD-EPI 2020 equation that does not use a race coefficient.Performed By: #### COVFLR #### [facility] ([id number]) [address] [place] [address] 24055Olepytq [Mass/Vol]99 mg/pDEsztnw95-08KunLzfkuwWilson Health Comment on above:Performed By: #### COVFLR #### [facility] ([id number]) [address] [place] [address] 17349Mcwnmcdmi [Moles/Vol]4.1 mmol/LNormal3.5-5.0ProMemorial Hermann [facility] HospitalComment on above:Performed By: #### COVFLR #### [facility] ([id number]) [address] [place] [address] 73826Sopxxcb [Mass/Vol]7.0 g/dLNormal6.0-8.0ProMemorial [facility] HospitalComment on above:Performed By: #### COVFLR #### [facility] ([id number]) [address] [place] [address] 24394Mwxfwl [Moles/Vol]141 mmol/TFvdmye802-025FfzKxznqy [facility]ont HospitalComment on above:Performed By: #### COVFLR #### [facility] ([id number]) [address] [place] [address] 21570Bahg nitrogen [Mass/Vol]27 mg/dLNormal5-27ProMemorial [facility] HospitalComment on above:Performed By: #### COVFLR #### [facility] ([id number]) [address] [place] [address] 28242IQHQQGhs 11-48-7070Iltguz [Catalytic activity/Vol]33 U/LNormal 17-40ProMem[facility] HospitalComment on above:Performed By: #### LIPA ####[facility])[address], [place] VIRPROTIME AND INRon 19-11-1426GEA6.0Eptqpj7.9-1.2PUniversity Hospitals TriPoint Medical Center Comment on above:Performed By: #### COVFLR #### [facility] ([id number]) [address] [place] [address], FIRST FLO[address] [place], [place] [address]FX Coag (PPP) [Time]11.4 sNormal9.8-13.2PUniversity Hospitals TriPoint Medical CenterComment on above:Performed By: #### COVFLR #### [facility] ([id number]) [address] [place] [address], [facility], [place] [address]ZKJO I, HIGH SENSITIVITY 1 HOURon 10-63-1885AAWMWXKH I, HIGH SENSITIVITY4 ng/LNormal<21ProMemorial [facility] HospitalComment on above:Performed By: #### TNIHS1 ####[facility] ([facility])[address] [place] [address] [place] [address] VIRTROPONIN I, HIGH SENSITIVITY 0 HOURon 06-14-2025 TROPONIN I, HIGH SENSITIVITY4 ng/LNormal<21ProMemorial Herm[facility] Land HospitalComment on above:Performed By: #### TNIHS0 ####[facility] ([facility])[address] [place] [address].[place] [address] VIRXR CHEST 2 VWSon 91-43-1800FT CHEST 2 VWSXR CHEST 2 VWS XR [...] Finalized by Tracy Castellon on 06/14/2025 6:36 PMNormalProMemorial Hermann [facility] Hospital NM PET/CT PROSTATE WBon 28-18-3342XI PET/CT PROSTATE WB* * *Final Report* * [...] any questions regarding this interpretation, please call [phone]. If you are unable to reach us at the number above, please feel free to contact [facility] eRadiology at [phone]. [id number]_IDCSIACNNormalOhiohealth Hardin Memorial HospitalB-TYPE NATRIURETIC PEPTIDE on 22-81-4173Hmzuyoprqbb peptide B (Bld) [Mass/Vol]110 pg/mLHigh<=100ProMedica St. John'S Regional Medical CenterComment on above:Performed By: #### COVFLR #### [facility] ([id number]) [address] [place] [address] 55050XFT WITH AUTO DIFFERENTIALon 21-81-7502LXWSOJLQG ABSOLUTE COUNT (10*3/UL) BY AUTOMATED COUNT0.0 10*3/uLNormal0.0-0.2PWillis-Knighton Medical Centerica [facility] Comment on above:Performed By: #### 00189-7 #### [facility] ([id number]) [address] [place] [address] 71900FXEEJZJCB RELATIVE PERCENT BY AUTOMATED COUNT1.0 %Normal [facility] HealthComment on above:Performed By: #### 91690-7 #### [facility] ([id number]) [address] [place] [address] 33863RKMVYFWFHDY DIFFERENTIAL TYPEAUTOMATED DIFFERENTIALNormal [facility] HealthComment on above:Performed By: #### 17074-3 #### [facility] ([id number]) [address] [place] [address] 85130Yuwxvboojyh (Bld) [#/Vol]0.2 10*3/uLNormal0.0-0.4Wilson HealthComment on above:Performed By: #### 32991-4 #### [facility] ([id number]) [address] [place] [address] 93732ERNQQHHFXSM RELATIVE PERCENT BY AUTOMATED COUNT6.2 %Normal [facility] HealthComment on above:Performed By: #### 34539-2 #### [facility] ([id number]) [address] [place] [address] 81007Cnezvtpgyuv distribution width (RBC) [Ratio]14.0 %Snrhyc65.5-15 [facility] HealthComment on above:Performed By: #### 32133-2 #### [facility] ([id number]) [address] [place] [address] 52975Zfuxxdtbqr (Bld) [Volume fraction]40.0 %Wfogtl47-80WwvYqygwxWilson HealthComment on above:Performed By: #### 99638-8 #### [facility] ([id number]) [address] [place] [address] 05132Bwmfihhsvi (Bld) [Mass/Vol]13.6 g/uERgpbwh04-38QqnVssxlrMemorial Hermann Sugar Land HospitalComment on above:Performed By: #### 77297-5 #### [facility] ([id number]) [address] [place] [address] 65596ZIRKUPOOMXK ABSOLUTE COUNT (10*3/UL) BY AUTOMATED COUNT0.7 10*3/uLLow1.0-3.5ProMedSonora Regional Medical CenterComment on above:Performed By: #### 31424-7 #### [facility] ([id number]) [address] [place] [address] 84175UMVCILSYORS RELATIVE PERCENT BY AUTOMATED COUNT17.8 %Normal ProMcrossbridge behavioral healtha St. John'S Regional Medical CenterComment on above:Performed By: #### 33659-8 #### [facility] ([id number]) [address] [place] [address] 35638NAD (RBC) [Entitic mass]30.1 xtIbbtoz02-50SmiIpsxnlMemorial Hermann Sugar Land HospitalComment on above:Performed By: #### 79320-0 #### [facility] ([id number]) [address] [place] [address] 81231NZMC (RBC) [Mass/Vol]34.0 g/cCHjenwx64-94ZpaIfdxauMemorial Hermann Sugar Land HospitalComment on above:Performed By: #### 33075-6 #### [facility] ([id number]) [address] [place] [address] 54901BEO (RBC) [Entitic vol]89 yCRwhxqu26-359AmcCcwgrl [facility] HospitalComment on above:Performed By: #### 52786-0 #### [facility] ([id number]) [address] [place] [address] 32871MILJUGKKA ABSOLUTE COUNT (10*3/UL) BY AUTOMATED COUNT0.4 10*3/uLNormal0.0-0.9[facility] HealthComment on above:Performed By: #### 53343-4 #### [facility] ([id number]) [address] [place] [address] 35743HPDZUUPHI RELATIVE PERCENT BY AUTOMATED COUNT10.2 %Normal [facility] HealthComment on above:Performed By: #### 47402-0 #### [facility] ([id number]) [address] [place] [address] 29895TIAIXRADWGE ABSOLUTE COUNT BY AUTOMATED COUNT2.6 10*3/uLNormal 1.5-6.6[facility] HealthComment on above:Performed By: #### 11946-9 #### [facility] ([id number]) [address] [place] [address] 60204MNYNBSNWDDM RELATIVE PERCENT BY AUTOMATED COUNT64.8 %Normal [facility] HealthComment on above:Performed By: #### 75103-1 #### [facility] ([id number]) [address] [place] [address] 73643Wfumpdfy mean volume (Bld) [Entitic vol]7.9 fLNormal7-12 [facility] HealthComment on above:Performed By: #### 34199-6 #### [facility] ([id number]) [address] [place] [address] 86060Iwqgvdrej (Bld) [#/Vol]194 10*3/mSYbwbet611-287GmbYahhhi [facility] HospitalComment on above:Performed By: #### 12076-8 #### [facility] ([id number]) [address] [place] [address] 53222RJJ COUNT4.50 X10E12/LNormal4.1-5.7[facility] Comment on above:Performed By: #### 42893-4 #### [facility] ([id number]) [address] [place] [address] 55078PAK (Bld) [#/Vol]4.0 10*3/uLNormal4-11[facility] HealthComment on above:Performed By: #### 28070-8 #### [facility] ([id number]) [address] [place] [address], [place] [address]QGHKRQIDFFZDX METABOLIC PANELon 53-55-4533Hsnwbwp [Mass/Vol]4.1 g/dLNormal3.2-5.3PUniversity Hospitals TriPoint Medical CenterComment on above:Performed By: #### COVFLR #### [facility] ([id number]) [address] [place] [address], [place] [address]PTX [Catalytic activity/Vol]90 U/SUylpfk29-229NnqWqoiyeMemorial Hermann Sugar Land HospitalComment on above:Performed By: #### COVFLR #### [facility] ([id number]) [address] [place] [address], [place] [address]BMS [Catalytic activity/Vol]19 U/LNormal<=40ProMemorial Hermann Sugar Land HospitalComment on above:Performed By: #### COVFLR #### [facility] ([id number]) [address] [place] [address], [place] [address]Ybfer gap [Moles/Vol]4 mmol/LLow5-15[facility] Comment on above:Performed By: #### COVFLR #### [facility] ([id number]) [address] [place] [address], [place] [address]WXW [Catalytic activity/Vol]19 U/LNormal<=41ProMemorial Hermann [facility] HospitalComment on above:Performed By: #### COVFLR #### [facility] ([id number]) [address] [place] [address], [place] [address]Ydsmrnfka [Mass/Vol]0.8 mg/dLNormal0.3-1.2PUniversity Hospitals TriPoint Medical CenterComment on above:Performed By: #### COVFLR #### [facility] ([id number]) [address] [place] [address], [place] [address]Uwfwctd [Mass/Vol]8.9 mg/dLNormal8.5-10.5PUniversity Hospitals TriPoint Medical CenterComment on above:Performed By: #### COVFLR #### [facility] ([id number]) [address] [place] [address] 26582Xgjpnnfe [Moles/Vol]108 mmol/GHfvqqu30-216UlmSvvheuMemorial Hermann Sugar Land HospitalComment on above:Performed By: #### COVFLR #### [facility] ([id number]) [address] [place] [address] 25300VN8 [Moles/Vol]24 mmol/UUyjqif23-43OtnImdtwuUniversity Hospitals TriPoint Medical Center Comment on above:Performed By: #### COVFLR #### [facility] ([id number]) [address] [place] [address] 48761Osespofexr [Mass/Vol]1.06 mg/dLNormal0.70-1.20ProMemorial Hermann [facility] HospitalComment on above:Result Comment: METHOD TRACEABLE TO IDMS STANDARD Performed By: #### COVFLR #### [facility] ([id number]) [address] [place] [address] 12693AMQ/1.73 sq M.predicted among non-blacks MDRD (S/P/Bld) [Vol rate/Area]78 mL/min/{1.73_m2}Normal>=60ProMemorial Hermann Sugar Land HospitalComment on above:Result Comment: eGFR not reported due to non-numeric value for Creatinine. Reported eGFR is based on the CKD-EPI 2021 equation that does not use a race coefficient.Performed By: #### COVFLR #### [facility] ([id number]) [address] [place] [address], [place] [address]Eevlplw [Mass/Vol]115 mg/jGEamb55-05JcfLoogdhWilson Health Comment on above:Performed By: #### COVFLR #### [facility] ([id number]) [address] [place] [address], [place] [address]Mfuihzzup [Moles/Vol]3.8 mmol/LNormal3.5-5.0ProMemorial Hermann Sugar [facility] HospitalComment on above:Performed By: #### COVFLR #### [facility] ([id number]) [address] [place] [address], [place] [address]Vjtecjn [Mass/Vol]6.9 g/dLNormal6.0-8.0ProMemorial Hermann [facility] HospitalComment on above:Performed By: #### COVFLR #### [facility] ([id number]) [address] [place] [address], [place] [address]Dcyycs [Moles/Vol]136 mmol/OBsowji603-372NniSqybol [facility] HospitalComment on above:Performed By: #### COVFLR #### [facility] ([id number]) [address] [place] [address], [place] [address]Bmtb nitrogen [Mass/Vol]17 mg/dLNormal5-27ProMemorial Hermann [facility] HospitalComment on above:Performed By: #### COVFLR #### [facility] ([id number]) [address] [place] [address], [place] [address]MHLNYBBADsn 51-67-9709Lhslrbqfb [Mass/Vol]2.0 mg/dLNormal 1.8-2.6ProMemorial Hermann Sugar Land HospitalComment on above:Performed By: #### COVFLR #### [facility] ([id number]) [address] [place] [address], [place] [address]SMUO I, HIGH SENSITIVITY 1 HOURon 44-62-1193SENFCJTL I, HIGH SENSITIVITY4 ng/LNormal<21ProMemorial Hermann [facility] HospitalComment on above:Performed By: #### COVFLR #### [facility] ([id number]) [address] [place] [address], [place] [address]CRHEDCWZ I, HIGH SENSITIVITY 0 HOURon 47-10-5640NMVXFBJR I, HIGH SENSITIVITY4 ng/LNormal<21Wilson HealthComment on above: Performed By: #### COVFLR #### [facility] ([id number]) [address] [facility], FIRST FLOOR [place], [place] [address]CH CHEST 1 VWon 54-78-4236CB CHEST 1 VWXR CHEST 1 VW Single view chest History: Chest pain Comparison: X-ray 03/04/2025 Findings: Single portable view of the chest. Cardiomediastinal silhouette and pulmonary vasculature are within normal limits. Lungs and pleural space are clear. There is no pleural effusion or pneumothorax. Median sternotomy wires are intact. Impression: No acute cardiopulmonary process. Finalized by Chris Oliva on 04/10/2025 12:31 PMNormalWilson Health CNPKarrie 48-14-4375LYUXHtkqiwfqb (NCCAP) MEREDITH VILLATORO ([id number]) 1960 M Date Time Provider Department 04/02/25 Jhony LUX NCCAP During your visit today, we recorded the following information about you: Akiko White 04/02/2025 3:14 PM Signed This form is used for MAIN CAMPUS APPOINTMENTS ONLY. Is this request for a Main [place] PET scan appointment? 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 Labs: 01-10-25 PSA 0.5 10-03-24 PSA 0.6 03-17-24 PSA 0.2 Clinical Notes Reviewed: 03-26-25 [facility] Date of last: na Additional Information/Imaging: N/A Is this the first [facility] PET:Yes (Please schedule as requested by patient or office) Positive Scan Schedule as place of last (DOS) or Region Negative Scan Schedule at ANY [facility] site requested Isotope used: Region F-18 flotufolastat,18F flotufolastat Posluma GA68 [facility] PET 90624/LOCAMETZ (Gallium GA-68 Gozetotide) (6 mCi) A9800 - Posluma (Flotufolastat F18) (8mCi), A9608 - Region Auth#: [id number] Date Range: 03-01-25 to 08-28-25 for 1 dos NPI: Leila Lambert Member ID: [employer] Site/Contact: Case/Ref#: Notes: auths canned into epic Route to or Requested Scheduling Pool: P PET WIRELESS RETAIL MANAGER Mily HERBERT CLERICAL POOL([place]), Mily BARNES BLOVES Allergies As of Date: 04/02/2025 (No Known Allergies) Date Reviewed: 01/23/2025 Reviewed by: Sharon Ocampo, RN - Fully Assessed Reason for Visit: Nm Pet Request [[id number]] Prescriptions as of 04/04/2025 - mirabegron (MYRBETRIQ) [...] 01/05/2023 Encounter Status:Closed by AKIKO WHITE on 04/04/25[facility]Ambulatory Visit Summaryon 40-81-1107Hhuanckjlv Visit SummaryAmbulatory Visit Summary MEREDITH VILLATORO :1960 [...] AM EDT With: Where: [facility] [address] [place] [address]- Wednesday 10:15 AM EDT With: Leila LAMBERT MD Where: [facility] [address] [place] [address]- You Need to Schedule the Following Appointments Follow Up with Leila LAMBERT MD, URL When: Where: [facility] [address] [place] [address], [facility] [place] [address] [phone] Medications What How Much When Instructions Unchanged [...] androgen production. Medicine therap (more content not included)...[facility] Office/Clinic Noteon 99-98-7713Arrbkqt Office/Clinic NoteUrology Office/Clinic Note Chief Complaint Patient [...] - 0.5 MRI prostate w/wo con 01/08/22 [facility] - PI-RADS 4 and 5. MRI fusion [...] prostate mass ~4 cm 02/22/25. Path shows Tie Siding 9 (4+5), cribriform, ductal (papillary), and sheets [...] mass ~4 cm 02/22/25. 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 IPSS 15. Taking Flomax [...] and trace leuks. (more content not included)... [facility] HospitalComment on above:Result Comment: Electronically Signed By: Leila LAMBERT MD\.br\Date and Time Signed: 03/26/25 10:23 EDT\.br\Electronically Co-Signed By: Molly Murray\.br\Date and Time Co-Signed: 03/26/25 10:21 EDTBASIC METABOLIC PANLon 91-95-8949Xmrud gap [Moles/Vol]8 mmol/L Normal5-15ProAvita Health System Galion HospitalComment on above:Performed By: #### NAIN 89722-8, CBCA, CMP, #### [facility] ([id number]) [address], [address] [place], [place] [address]Adpspva [Mass/Vol]8.6 mg/dLNormal8.5-10.5PKeenan Private HospitalComment on above:Performed By: #### NAIN 70848-2, CBCA, CMP, #### [facility] ([id number]) [address], [address] [place], [place] [address]Sdbldmjt [Moles/Vol]102 mmol/JXfydov42-943JmmYyaaxs [place] HospitalComment on above:Performed By: #### NAIN 76311-7, CBCA, CMP, #### [facility] ([id number]) [address], [address] [place], [place] [address]GC1 [Moles/Vol]27 mmol/KTkmguc24-39VxzObbyrjKeenan Private Hospital Comment on above:Performed By: #### NAIN, 38351-1, CBCA, CMP, #### [facility] ([id number]) [address], [address] [place], [place] [address]Igjtirbmwq [Mass/Vol]0.77 mg/dLNormal0.60-1.30ProAvita Health System Galion HospitalComment on above:Result Comment: METHOD TRACEABLE TO IDMS STANDARD Performed By: #### NAIN 85992-0, CBCA, CMP, #### [facility] ([id number]) [address] [address]yAYT (CKD-EPI) NON-RACE DEPENDENT>90Normal>59ProAdams County Hospital HospitalComment on above:Result Comment: Reported eGFR is based on the CKD-EPI 2020 equation that does not use a race coefficient.Performed By: #### NAIN 95059-2, CBCA, CMP, #### [facility] ([id number]) [address] [address]Hhbqwek [Mass/Vol]109 mg/rQEyuo17-18RjiMztqqu [facility] Comment on above:Performed By: #### NAIN 29490-3, CBCA, CMP, #### [facility] ([id number]) [address] [address]Rnvlqdskn [Moles/Vol]4.3 mmol/LNormal3.5-5.0ProAvita Health System Galion HospitalComment on above:Performed By: #### NAIN 66180-8, CBCA, CMP, #### [facility] ([id number]) [address] [address]Jfekvn [Moles/Vol]137 mmol/AAenbho356-485KcsCsvlkc [place] HospitalComment on above:Performed By: #### NAIN 22896-0, CBCA, CMP, #### [facility] ([id number]) [address] [address]Igbr nitrogen [Mass/Vol]18 mg/dLNormal5-27ProAdams County Hospital HospitalComment on above:Performed By: #### NAIN 59386-1, CBCA, CMP, #### [facility] ([id number]) [address], [facility] [address] [place], [place] [address]FAUPLBHP BLOOD COUNTon 57-73-8768Udgokckyprs distribution width (RBC) [Ratio]12.7 %Eruwln91.5-15.0ProAdams County Hospital HospitalComment on above: Performed By: #### Cb GILLETTE79-9, CBCA, CMP, #### [facility] ([id number]) [address] [address]Mycombkbpp (Bld) [Volume fraction]30.5 %Ytx68-08PgrHtykza [place] HospitalComment on above:Performed By: #### NAIN 69550-5, CBCA, CMP, #### [facility] ([id number]) [address], [facility] [address] [place], [place] [address]Lnfibosdme (Bld) [Mass/Vol]10.5 g/dLLow13.0-17.0[facility] HospitalComment on above:Performed By: #### NAIN 14288-2, CBCA, CMP, #### [facility] ([id number]) [address], [facility] [address] [place], [place] [address]ZYN (RBC) [Entitic mass]31.2 qeIvrtaq27-72DutRfpxyz [place] HospitalComment on above:Performed By: #### NAIN, 62096-2, CBCA, CMP, #### [facility] ([id number]) [address], [facility] [address] [place], [place] [address]QIXH (RBC) [Mass/Vol]34.3 g/zRJvufej13-48DgtEumeaw Fuentes HospitalComment on above:Performed By: #### NAIN, 90744-1, CBCA, CMP, 1988-03, #### [facility] ([id number]) [address], [address] [place], [place] [address]SJP (RBC) [Entitic vol]91 nDMqjqjp52-422PpnJxicat Fuentes HospitalComment on above:Performed By: #### NAIN, 42372-7, CBCA, CMP, 1988-03, #### [facility] ([id number]) [address], [address] [place], [place] [address]Rrqdjmec mean volume (Bld) [Entitic vol]7.1 fLNormal7-12 [facility] HospitalComment on above:Performed By: #### NAIN, 01220-8, CBCA, CMP, 1988-03, #### [facility] ([id number]) [address], [address] [place], [place] [address]Mhjgbbqnx (Bld) [#/Vol]207 10*3/nGJurhdj492-084BprAyhkeb Ufentes HospitalComment on above:Performed By: #### NAIN, 67750-5, CBCA, CMP, 1988-03, #### [facility] ([id number]) [address], [address] [place], [place] [address]IJD COUNT3.35 X10E12/LLow4.10-5.70[facility] Comment on above:Performed By: #### NAIN, 66568-2, CBCA, CMP, 1988-03, #### [facility] ([id number]) [address], [address] [place], [place] [address]IKP (Bld) [#/Vol]5.6 10*3/uLNormal4.0-11.0[facility] HospitalComment on above:Performed By: #### NAIN, 69499-9, CBCA, CMP, #### [facility] ([id number]) [address], [address] [place] [address]BZPLGDNDJdk [id number] [Mass/Vol]2.2 mg/dLNormal1.8-2.6 [facility] HospitalComment on above:Performed By: #### NAIN, 08817-4, CBCA, CMP, #### [facility] [facility] ([id number]) [address], [address] [place], [place] [address]XVPOV METABOLIC PANLon 68-17-6155Bvyzs gap [Moles/Vol]8 mmol/L Normal5-15Pro[facility] HospitalComment on above:Performed By: #### Cb GILLETTE79-9, CBCA, CMP, #### [facility] ([id number]) [address], [address] [place], [place] [address]Ogpjujp [Mass/Vol]8.9 mg/dLNormal8.5-10.5Pro[facility] HospitalComment on above:Performed By: #### NAIN 11564-3, CBCA, CMP, #### [facility] ([id number]) [address], [address] [place], [place] [address]Axltqxxp [Moles/Vol]99 mmol/QNjkbqa76-715AawRlhtui [place] HospitalComment on above:Performed By: #### NAIN 43598-9, CBCA, CMP, #### [facility] ([id number]) [address], [address] [place], [place] [address]DF7 [Moles/Vol]26 mmol/ULmpyjm02-54JtqMrimva [facility] Comment on above:Performed By: #### Cb GILLETTE79-9, CBCA, CMP, #### [facility] ([id number]) [address], [address] [place], [place] [address]Ysdsvugymt [Mass/Vol]0.83 mg/dLNormal0.60-1.30ProAv[facility] Galion HospitalComment on above:Result Comment: METHOD TRACEABLE TO IDMS STANDARD Performed By: #### NAIN 57501-2, CBCA, CMP, #### [facility] ([id number]) [address], [address] [place], [place] [address]bPFB (CKD-EPI) NON-RACE DEPENDENT>90Normal>59ProAv[facility] Health System [facility] HospitalComment on above:Result Comment: Reported eGFR is based on the CKD-EPI 2020 equation that does not use a race coefficient.Performed By: #### NAIN 86287-4, CBCA, CMP, #### [facility] ([id number]) [address], [address] [place], [place] [address]Adrhaio [Mass/Vol]137 mg/pQHqoc85-82NrsKkptqgAvita Health System [facility] Hospital Comment on above:Performed By: #### NAIN 84807-1, CBCA, CMP, #### [facility] ([id number]) [address], [address] [place], [place] [address]Sladxkklf [Moles/Vol]3.8 mmol/LNormal3.5-5.0ProAv[facility] Health System [facility] HospitalComment on above:Performed By: #### NAIN, 10451-6, CBCA, CMP, #### [facility] ([id number]) [address], [address] [place], [place] [address]Tzykrg [Moles/Vol]133 mmol/KUhb579-686DohVndhzfAvita Health System [facility] Hospital Comment on above:Performed By: #### NAIN, 55075-5, CBCA, CMP, #### [facility] ([id number]) [address], [address] [place], [place] [address]Uszi nitrogen [Mass/Vol]22 mg/dLNormal5-27Pro[facility] HospitalComment on above:Performed By: #### NAIN, 65496-1, CBCA, CMP, #### [facility] ([id number]) [address] [address]GRTPMHMM BLOOD COUNTon 94-62-2676Rjyotvtmmub distribution width (RBC) [Ratio]13.1 %Cznwja31.5-15.0Pro[facility] HospitalComment on above: Performed By: #### Cb GILLETTE79-9, CBCA, CMP, #### [facility] ([id number]) [address], [address] [place], [place] [address]Imphvhqgkz (Bld) [Volume fraction]31.7 %Kpf78-55CaaRqlcdb [place] HospitalComment on above:Performed By: #### NAIN, 75050-5, CBCA, CMP, #### [facility] ([id number]) [address] [address] [place], [place] [address]Xhlwexlzpr (Bld) [Mass/Vol]10.9 g/dLLow13.0-17.0Pro[facility] Hospital HospitalComment on above:Performed By: #### NAIN, 12373-7, CBCA, CMP, #### [facility] ([id number]) [address] [address] [place], [place] [address]OZX (RBC) [Entitic mass]30.6 rkYpdoqg84-09OpxUzduaj [place] HospitalComment on above:Performed By: #### NAIN, 75506-9, CBCA, CMP, #### [facility] ([id number]) [address], [address] [place], [place] [address]RJQZ (RBC) [Mass/Vol]34.3 g/jZOzywnd95-38CsnQlajlq [place] HospitalComment on above:Performed By: #### PINCalvin, 06608-5, CBCA, CMP, #### [facility] ([id number]) [address], [address] [place], [place] [address]AYQ (RBC) [Entitic vol]89 vFMjdcov99-313ZspVbfmou [place] HospitalComment on above:Performed By: #### NAIN, 45709-6, CBCA, CMP, 1988-03, #### [facility] ([id number]) [address], [address] [place], [place] [address]Psnglznn mean volume (Bld) [Entitic vol]7.7 fLNormal7-12 ProMcrossbridge behavioral healtha [place] HospitalComment on above:Performed By: #### NAIN, 37006-8, CBCA, CMP, 1988-03, #### [facility] ([id number]) [address], [address] [place], [place] [address]Iqrbyrivi (Bld) [#/Vol]201 10*3/aGKdaojj715-151JufAioaru [place] HospitalComment on above:Performed By: #### PINR, 37984-9, CBCA, CMP, 1988-03, #### [facility] ([id number]) [address], [address] [place], [place] [address]GOD COUNT3.56 X10E12/LLow4.10-5.70[facility] Hospital Comment on above:Performed By: #### PINR, 26597-2, CBCA, CMP, #### [facility] ([id number]) [address], [address] [place], [place] [address]CQP (Bld) [#/Vol]7.2 10*3/uLNormal4.0-11.0ProAv[facility] System [facility] HospitalComment on above:Performed By: #### NAIN, 30807-5, CBCA, CMP, 1988-03, #### [facility] ([id number]) [address], [facility] [address] [place], [place] [address]Kyzaabw Glucometer (BldC) [Mass/Vol]on 00-49-1570Alnhltw [Mass/Vol]122 mg/zCNnss92-96HqbLygaco [place] HospitalGlucose [Mass/Vol]117 mg/dL Wtkk06-41AxoSqfati [place] HospitalGlucose [Mass/Vol]118 mg/wGCnhf36-44YlrSbhzht [place] HospitalMAGNESIUMon 26-44-3121Csmyjjvlj [Mass/Vol]2.3 mg/dLNormal1.8-2.6 [facility] Health SystemComment on above:Performed By: #### NAIN 07424-5, CBCA, CMP, 1988-03, #### [facility] ([id number]) [address] [address]YLUDTLVNLly 57-94-0949Mqblpwpbz [Moles/Vol]4.0 mmol/LNormal 3.5-5.0ProAv[facility] HospitalComment on above:Performed By: #### NAIN 55579- 9, CBCA, CMP, 1988-03, #### [facility] ([id number]) [address], [address] [address] CHEST 1 VWon 15-69-3408VQ CHEST 1 VWXR CHEST 1 VW EXAM: [...] by Eulogio Cruz MD on 03/06/2025 5:06 AMNormalProAvita Health System Galion HospitalALT No additional P-5'-P [Catalytic activity/Vol]on 59-16-8486MLJ [Catalytic activity/Vol]7 U/LNormal0-40Pro[facility] HospitalComment on above:Performed By: #### NAIN, 86857-1, CBCA, CMP, #### [facility] ([id number]) [address], [address] [place], [place] [address]QTDlh 55-24-3963OZH [Catalytic activity/Vol]17 U/LNormal0-41 [facility] Health SystemComment on above:Performed By: #### NAIN, 56697-6, CBCA, CMP, #### [facility] ([id number]) [address], [address] [place], [place] [address]WPIRA METABOLIC PANLon 88-82-7246Mbblw gap [Moles/Vol]9 mmol/L Normal5-15Pro[facility] HospitalComment on above:Performed By: #### NAIN, 83973-3, CBCA, CMP, #### [facility] ([id number]) [address], [address] [place], [place] [address]Yytbteo [Mass/Vol]9.2 mg/dLNormal8.5-10.5Pro[facility] Hospitals Health SystemComment on above:Performed By: #### NAIN, 09901-3, CBCA, CMP, #### [facility] ([id number]) [address], [address] [place], [place] [address]Iwspbxyq [Moles/Vol]100 mmol/DRyjvjb49-561MjnJbzvwp [place] HospitalComment on above:Performed By: #### NAIN, 82716-6, CBCA, CMP, #### [facility] ([id number]) [address], [address] [place], [place] [address]CP2 [Moles/Vol]26 mmol/PQxgraj72-33JetEvsjqaKeenan Private Hospital Comment on above:Performed By: #### NAIN, 05175-1, CBCA, CMP, #### [facility] ([id number]) [address], [address] [place], [place] [address]Zwzoaymnig [Mass/Vol]1.14 mg/dLNormal0.60-1.30[facility] Health SystemComment on above:Result Comment: METHOD TRACEABLE TO IDMS STANDARD Performed By: #### NAIN, 16585-0, CBCA, CMP, #### [facility] ([id number]) [address], [address] [place], [place] [address]MST/1.73 sq M.predicted among non-blacks MDRD (S/P/Bld) [Vol rate/Area]71 mL/min/{1.73_m2}Normal>59ProAv[facility] HospitalComment on above: Result Comment: Reported eGFR is based on the CKD-EPI 2020 equation that does not use a race coefficient.Performed By: #### NAIN, 11815-2, CBCA, CMP, #### [facility] ([id number]) [address], [address] [place], [place] [address]Awidwft [Mass/Vol]110 mg/sQAgxj38-55LvgUwcqylMount Carmel Health System Comment on above:Performed By: #### NAIN, 82931-3, CBCA, CMP, #### [facility] ([id number]) [address], [address] [place] [address]Pduywixja [Moles/Vol]4.1 mmol/LNormal3.5-5.0Pro[facility] HospitalComment on above:Performed By: #### NAIN, 59993-1, CBCA, CMP, 1988-03, #### [facility] ([id number]) [address], [address] [place], [place] [address]Sefpcd [Moles/Vol]135 mmol/FGbubmx529-445QnqHhtjit [place] HospitalComment on above:Performed By: #### NAIN 20168-6, CBCA, CMP, 1988-03, #### [facility] ([id number]) [address], [address] [place], [place] [address]Dshq nitrogen [Mass/Vol]28 mg/dLHigh5-27[facility] HospitalComment on above:Performed By: #### NAIN, 71220-2, CBCA, CMP, 1988-03, #### [facility] ([id number]) [address], [address] [place] [address]XLKRURHT BLOOD COUNTon 78-57-7435Ebviixczxoq distribution width (RBC) [Ratio]13.0 %Fwdycs75.5-15.0[facility] HospitalComment on above: Performed By: #### NAIN 34619-0, CBCA, CMP, 1988-03, #### [facility] ([id number]) [address], [address] [place] [address]Uqfcoqoreo (Bld) [Volume fraction]33.8 %Avx38-22JjmUconpw [place] HospitalComment on above:Performed By: #### NAIN, 52818-9, CBCA, CMP, #### [facility] ([id number]) [address], [address] [place], [place] [address]Ceuuyubzja (Bld) [Mass/Vol]11.5 g/dLLow13.0-17.0[facility] [place] HospitalComment on above:Performed By: #### NAIN, 35417-5, CBCA, CMP, 1988-03, #### [facility] ([id number]) [address], [address] [place], [place] [address]INB (RBC) [Entitic mass]30.8 fwQlbwnx78-17IesUzxhgr [place] HospitalComment on above:Performed By: #### NAIN, 41576-6, CBCA, CMP, 1988-03, #### [facility] ([id number]) [address], [address] [place], [place] [address]FJNK (RBC) [Mass/Vol]34.0 g/gDKttaud70-17HqeDwzevu [place] HospitalComment on above:Performed By: #### NAIN, 51338-1, CBCA, CMP, 1988-03, #### [facility] ([id number]) [address], [address] [place], [place] [address]BHK (RBC) [Entitic vol]91 qXVxmtpa01-967JpjQzfjtk [place] HospitalComment on above:Performed By: #### NAIN, 38391-7, CBCA, CMP, #### [facility] ([id number]) [address], [address] [place], [place] [address]Soysundx mean volume (Bld) [Entitic vol]7.9 fLNormal7-12 [facility] [place] HospitalComment on above:Performed By: #### NAIN, 42863-0, CBCA, CMP, 1988-03, #### [facility] ([id number]) [address], [address] [place], [place] [address]Pmvrvbsmu (Bld) [#/Vol]193 10*3/gCCdiwdn005-691FpuUjkwnt [place] HospitalComment on above:Performed By: #### NAIN, 51827-0, CBCA, CMP, #### [facility] ([id number]) [address], [address] [place], [place] [address]MER COUNT3.72 X10E12/LLow4.10-5.70[facility] Comment on above:Performed By: #### NAIN, 97490-3, CBCA, CMP, #### [facility] ([id number]) [address] [place], [place] [address]SJV (Bld) [#/Vol]9.3 10*3/uLNormal4.0-11.0ProAv[facility] HospitalComment on above:Performed By: #### NAIN, 24725-7, CBCA, CMP, #### [facility] ([id number]) [address] [place], [place] [address]Pacnqia.ionized (Bld) [Mass/Vol]on 17-51-4329BXXSOMW CALCIUM4.9 mg/dLNormal4.5-5.3ProMedBrown Memorial HospitalComment on above:Performed By: #### NAIN, 46394-6, CBCA, CMP, #### [facility] ([id number]) [address], [address] [place], [place] [address]Saqgwlm Glucometer (BldC) [Mass/Vol]on 71-02-4166Nxtkqvc [Mass/Vol]119 mg/mYVhlc59-32NhuPtsahlMount Carmel Health SystemGlucose [Mass/Vol]127 mg/dL Izry25-66GfqPztdpkMount Carmel Health SystemGlucose [Mass/Vol]126 mg/kLYona52-36CbsGapjkyAvita Health System Galion HospitalGlucose [Mass/Vol]127 mg/bWRmvx40-96HjwWlazliMount Carmel Health System LIVER PANELon 74-96-0753Ktwckoa [Mass/Vol]3.8 g/dLNormal3.2-5.3[facility] [place] HospitalComment on above:Performed By: #### NAIN, 55267-0, CBCA, CMP, 1988-03, #### [facility] ([id number]) [address], [address] [place], [place] [address]SEN [Catalytic activity/Vol]55 U/QIqxujk77-870IoxJpjtpp [place] HospitalComment on above:Performed By: #### NAIN, 69877-3, CBCA, CMP, 1988-03, #### [facility] ([id number]) [address], [address] [place], [place] [address]LFI [Catalytic activity/Vol]9 U/LNormal0-40[facility] [place] HospitalComment on above:Performed By: #### NAIN, 61615-9, CBCA, CMP, 1988-03, #### [facility] ([id number]) [address], [address] [place], [place] [address]GHX [Catalytic activity/Vol]18 U/LNormal0-41[facility] [place] HospitalComment on above:Performed By: #### NAIN, 41125-1, CBCA, CMP, 1988-03, #### [facility] ([id number]) [address], [address] [place], [place] [address]Lsvikefvz [Mass/Vol]0.8 mg/dLNormal0.3-1.2[facility] [place] HospitalComment on above:Performed By: #### NAIN, 90160-2, CBCA, CMP, 1988-03, #### [facility] ([id number]) [address], [address] [place], [place] [address]Uwawlqekg.direct [Mass/Vol]0.1 mg/dLNormal0.0-0.4[facility] [place] HospitalComment on above:Performed By: #### NAIN 09994-7, CBCA, CMP, #### [facility] ([id number]) [address], [address] [place], [place] [address]Vpikvsk [Mass/Vol]6.1 g/dLNormal6.0-8.0Pro[facility] Hospitalca [facility] Comment on above:Performed By: #### NAIN 27084-8, CBCA, CMP, #### [facility] ([id number]) [address] [place], [place] [address]GNFIAZEZGsx 31-88-0152Oprzovgul [Mass/Vol]2.5 mg/dLNormal1.8-2.6 [facility] HospitalComment on above:Performed By: #### NAIN 63361-6, CBCA, CMP, #### [facility] ([id number]) [address] [place], [place] [address]Xkbdgqovg [Mass/Vol]2.6 mg/dLNormal1.8-2.6[facility] HospitalComment on above:Performed By: #### NAIN 72066-5, CBCA, CMP, 1988-03, #### [facility] ([id number]) [address], [address] [place], [place] [address]ZORYVOVIXum 93-30-9156Rwdzsxlty [Moles/Vol]3.9 mmol/LNormal 3.5-5.0[facility] HospitalComment on above:Performed By: #### NAIN 54343- 9, CBCA, CMP, #### [facility] ([id number]) [address], [address] [place], [place] [address]NTSYJ METABOLIC PANLon 14-58-3968Kwtwp gap [Moles/Vol]11 mmol/L Normal5-15[facility] HospitalComment on above:Performed By: #### NAIN, 54390-3, CBCA, CMP, #### [facility] ([id number]) [address], [address] [place], [place] [address]Fzjusgg [Mass/Vol]9.0 mg/dLNormal8.5-10.5PKeenan Private HospitalComment on above:Performed By: #### NAIN, 74719-3, CBCA, CMP, 1988-03, #### [facility] ([id number]) [address], [address] [place], [place] [address]Eivadpeh [Moles/Vol]101 mmol/BQhjdah66-023FghNbvtgz [place] HospitalComment on above:Performed By: #### NAIN 93180-2, CBCA, CMP, 1988-03, #### [facility] ([id number]) [address] [place], [place] [address]LW5 [Moles/Vol]24 mmol/FGkbqus63-87LitIjkdswKeenan Private Hospital Comment on above:Performed By: #### NAIN, 29642-4, CBCA, CMP, 1988-03, #### [facility] ([id number]) [address], [address] [place], [place] [address]Zqygeshihz [Mass/Vol]1.14 mg/dLNormal0.60-1.30Pro[facility] HospitalComment on above:Result Comment: METHOD TRACEABLE TO IDMS STANDARD Performed By: #### NAIN, 81425-3, CBCA, CMP, #### [facility] ([id number]) [address], [address] [place], [place] [address]BJI/1.73 sq M.predicted among non-blacks MDRD (S/P/Bld) [Vol rate/Area]71 mL/min/{1.73_m2}Normal>59Pro[facility] HospitalComment on above: Result Comment: Reported eGFR is based on the CKD-EPI 2020 equation that does not use a race coefficient.Performed By: #### NAIN 89053-9, CBCA, CMP, #### [facility] ([id number]) [address], [address] [place], [place] [address]Jdriljn [Mass/Vol]133 mg/iXOmhi65-49IknHzesjp [facility] Comment on above:Performed By: #### NAIN 22649-5, CBCA, CMP, #### [facility] ([id number]) [address] [address] [place], [place] [address]Dyuuyvuby [Moles/Vol]4.2 mmol/LNormal3.5-5.0Pro[facility] HospitalComment on above:Performed By: #### NAIN 43885-3, CBCA, CMP, #### [facility] ([id number]) [address] [address] [place], [place] [address]Bwfuwv [Moles/Vol]136 mmol/APpybrv529-524ZrqHasyqb [place] HospitalComment on above:Performed By: #### NAIN 98433-2, CBCA, CMP, #### [facility] ([id number]) [address] [address] [place], [place] [address]Iwgt nitrogen [Mass/Vol]21 mg/dLNormal5-27Pro[facility] HospitalComment on above:Performed By: #### NAIN 11526-7, CBCA, CMP, #### [facility] ([id number]) [address] [place], [place] [address]YRWFGFNQ BLOOD COUNTon 58-62-0315Lnqwikzhnrc distribution width (RBC) [Ratio]12.8 %Kcpfhw65.5-15.0[facility] HospitalComment on above: Performed By: #### NAIN, 15658-2, CBCA, CMP, #### [facility] ([id number]) [address], [address] [place], [place] [address]Qehrpemnet (Bld) [Volume fraction]35.7 %Sos01-28CgpFsfacj [facility] HospitalComment on above:Performed By: #### NAIN, 39046-3, CBCA, CMP, 1988-03, #### [facility] ([id number]) [address], [address] [place], [place] [address]Mnflszyuqc (Bld) [Mass/Vol]12.2 g/dLLow13.0-17.0ProMer[facility] Health Anderson Hospitalca [facility] HospitalComment on above:Performed By: #### NAIN, 00719-2, CBCA, CMP, #### [facility] ([id number]) [address], [address] [place], [place] [address]GEB (RBC) [Entitic mass]31.0 acUowiwy00-09FebAvfdqc [facility] HospitalComment on above:Performed By: #### NAIN, 44876-8, CBCA, CMP, 1988-03, #### [facility] ([id number]) [address], [address] [place], [place] [address]PTHV (RBC) [Mass/Vol]34.1 g/xEDsfagw59-97SlkTynywn [facility] HospitalComment on above:Performed By: #### NAIN, 51391-7, CBCA, CMP, #### [facility] ([id number]) [address], [address] [place], [place] [address]NMY (RBC) [Entitic vol]91 kKKxbxqy18-552TisWhbvvj [facility] HospitalComment on above:Performed By: #### NAIN, 16582-7, CBCA, CMP, #### [facility] ([id number]) [address], [address] [place], [place] [address]Wuxiaiym mean volume (Bld) [Entitic vol]8.1 fLNormal7-12 ProMcrossbridge behavioral healtha [facility] HospitalComment on above:Performed By: #### NAIN, 67969-6, CBCA, CMP, 1988-03, #### [facility] ([id number]) [address], [address] [place], [place] [address]Ostlrsmam (Bld) [#/Vol]205 10*3/oPJuxotl769-646MaiGlqqcd [place] HospitalComment on above:Performed By: #### NAIN, 16462-6, CBCA, CMP, 1988-03, #### [facility] ([id number]) [address], [address] [place], [place] [address]BZE COUNT3.92 X10E12/LLow4.10-5.70Pro[facility] Comment on above:Performed By: #### NAIN, 06310-6, CBCA, CMP, 1988-03, #### [facility] ([id number]) [address], [address] [place], [place] [address]FYP (Bld) [#/Vol]11.5 10*3/uLHigh4.0-11.0ProAdams County Hospital HospitalComment on above:Performed By: #### NAIN, 23159-5, CBCA, CMP, 1988-03, #### [facility] ([id number]) [address], [address] [place], [place] [address]Rbqbbpb Glucometer (BldC) [Mass/Vol]on 12-41-1326Hqjnxts [Mass/Vol]122 mg/pKTpvn49-33PmjZfohtwAvita Health System Galion HospitalGlucose [Mass/Vol]128 mg/dL Ihsx80-46SmkAyeguiAvita Health System Galion HospitalGlucose [Mass/Vol]141 mg/dUQplj38-40BclNfsmofMount Carmel Health SystemGlucose [Mass/Vol]137 mg/zRDsas88-93ZgaAqsyqcAvita Health System Galion HospitalXR CHEST 1 VWon 16-39-9137HS CHEST 1 VWXR CHEST 1 VW EXAM: [...] by Eulogio Cruz MD on 03/04/2025 5:18 AMNormalMount Carmel Health System BASIC METABOLIC PANLon 71-37-4834Rkbkz gap [Moles/Vol]6 mmol/LNormal5-15 [facility] SystemComment on above:Performed By: #### NAIN, 55534-8, CBCA, CMP, #### [facility] ([id number]) [address], [address] [place], [place] [address]Ibcmyom [Mass/Vol]8.9 mg/dLNormal8.5-10.5Pro[facility] University Hospitals Health SystemComment on above:Performed By: #### NAIN, 50112-5, CBCA, CMP, #### [facility] ([id number]) [address], [address] [place], [place] [address]Uwmqppqa [Moles/Vol]106 mmol/KArqlrl18-290NufMjxdkf [place] HospitalComment on above:Performed By: #### NAIN, 27938-4, CBCA, CMP, #### [facility] ([id number]) [address], [address] [place], [place] [address]IB1 [Moles/Vol]25 mmol/XQiwfjo68-73JquXnoxgqKeenan Private Hospital Comment on above:Performed By: #### NAIN, 05866-1, CBCA, CMP, #### [facility] ([id number]) [address], [address] [place], [place] [address]Hnrupwtdpo [Mass/Vol]1.09 mg/dLNormal0.60-1.30ProAvita Health System Galion HospitalComment on above:Result Comment: METHOD TRACEABLE TO IDMS STANDARD Performed By: #### NAIN 74342-8, ELKE, CMP, #### [facility] ([id number]) [address], [address] [place], [place] [address]KLB/1.73 sq M.predicted among non-blacks MDRD (S/P/Bld) [Vol rate/Area]75 mL/min/{1.73_m2}Normal>59ProAvita Health System Galion HospitalComment on above: Result Comment: Reported eGFR is based on the CKD-EPI 2020 equation that does not use a race coefficient.Performed By: #### NAIN 81737-4, CBCAbram, CMP, #### [facility] ([id number]) [address], [address] [place], [place] [address]Nfvtvtz [Mass/Vol]136 mg/oQKuxp21-64KhtHcokxbMount Carmel Health System Comment on above:Performed By: #### NAIN 33954-9, CBCA, CMP, #### [facility] ([id number]) [address], [address] [place], [place] [address]Txqwkvpgj [Moles/Vol]4.7 mmol/LNormal3.5-5.0ProAvita Health System Galion HospitalComment on above:Performed By: #### NAIN, 65769-8, CBCA, CMP, #### [facility] ([id number]) [address], [address] [place], [place] [address]Zynekt [Moles/Vol]137 mmol/JSrgqqv577-953GfaElsjcy Springfield HospitalComment on above:Performed By: #### NAIN 96795-1, CBCA, CMP, #### [facility] ([id number]) [address], [address] [place], [place] [address]Rzpd nitrogen [Mass/Vol]19 mg/dLNormal5-27ProMercy Health Anderson Hospitalca [place] HospitalComment on above:Performed By: #### NAIN 53403-1, CBCA, CMP, #### [facility] ([id number]) [address], [facility] [address] [place], [place] [address]EXLYXHQE BLOOD COUNTon 49-54-3622Jqnntuhblfb distribution width (RBC) [Ratio]12.9 %Iteiwh93.5-15.0ProMercy Health Anderson Hospitalca [place] HospitalComment on above: Performed By: #### NAIN 31359-1, CBCA, CMP, #### [facility] ([id number]) [address], [address] [place], [place] [address]Kempodwxgy (Bld) [Volume fraction]36.8 %Gns26-92IpcRxxzsw [place] HospitalComment on above:Performed By: #### NAIN, 07795-9, CBCA, CMP, #### [facility] [facility] ([id number]) [address], [address] [place], [place] [address]Eswfqscouc (Bld) [Mass/Vol]12.8 g/dLLow13.0-17.0ProAd[facility] HospitalComment on above:Performed By: #### NAIN 43526-6, CBCA, CMP, #### [facility] ([id number]) [address], [address] [place], [place] [address]FBV (RBC) [Entitic mass]31.2 mkRjkuhz82-76XsiBdeylb [facility] HospitalComment on above:Performed By: #### PINCalvin, 72598-0, CBCA, CMP, 1988-03, #### [facility] ([id number]) [address], [address] [place], [place] [address]LYOF (RBC) [Mass/Vol]34.9 g/qGYqkwrd36-18UwzJeojur [facility] HospitalComment on above:Performed By: #### NAIN, 17850-7, CBCA, CMP, 1988-03, #### [facility] ([id number]) [address], [address] [place], [place] [address]PNU (RBC) [Entitic vol]89 fKFgbfyp16-602SfuHvnkff [facility] HospitalComment on above:Performed By: #### NAIN, 18993-1, CBCA, CMP, 1988-03, #### [facility] ([id number]) [address], [address] [place], [place] [address]Upbtvcre mean volume (Bld) [Entitic vol]7.9 fLNormal7-12 [facility] HospitalComment on above:Performed By: #### PINR, 46699-4, CBCA, CMP, 1988-03, #### [facility] ([id number]) [address], [address] [place], [place] [address]Gzmdrfrfg (Bld) [#/Vol]180 10*3/wCRlsazk826-818GnfSrkibn [facility]entes HospitalComment on above:Performed By: #### PINR, 90230-9, CBCA, CMP, 1988-03, #### [facility] ([id number]) [address], [address] [place], [place] [address]CNT COUNT4.12 X10E12/LNormal4.10-5.70[facility] Comment on above:Performed By: #### NAIN, 94672-1, CBCA, CMP, 1988-03, #### [facility] ([id number]) [address], [address] [place], [place] [address]MBZ (Bld) [#/Vol]10.0 10*3/uLNormal4.0-11.0ProAv[facility] HospitalComment on above:Performed By: #### NAIN, 94303-9, CBCA, CMP, 1988-03, #### [facility] ([id number]) [address], [address] [place], [place] [address]Epgnexa.ionized (Bld) [Mass/Vol]on 28-92-5900WOUETDD CALCIUM4.9 mg/dLNormal4.5-5.3PKeenan Private HospitalComment on above:Performed By: #### NAIN, 09827-5, CBCAbram, CMP, #### [facility] ([id number]) [address], [address] [place], [place] [address]Xlgwbos Glucometer (BldC) [Mass/Vol]on 23-45-5481Qxkdrex [Mass/Vol]147 mg/bHZcqg59-87JrmPlwgwk [facility] HospitalGlucose [Mass/Vol]124 mg/dL Vkkl12-52ErmUgwfra [facility] HospitalGlucose [Mass/Vol]138 mg/zNPyln92-95RshGsfjob [facility] HospitalGlucose [Mass/Vol]114 mg/vNDkba97-23EflVfknsr [facility] Glucose [Mass/Vol]89 mg/uCJovgdv95-44MudQxcvvm Springfield HospitalGlucose [Mass/Vol] 106 mg/rKOnzl60-33FymVqdsws [facility] HospitalGlucose [Mass/Vol]135 mg/dVFoax62-84 [facility] HospitalGlucose [Mass/Vol]254 mg/fOSedp35-69ZqqBgnnsd [facility] HospitalGlucose [Mass/Vol]104 mg/dCVxrk93-23GldFkuukx [facility] HospitalGlucose [Mass/Vol]123 mg/eFWapa73-96KrvLyiwej [facility] HospitalGlucose [Mass/Vol]145 mg/dL Aodq79-85PtuYrrtcz [facility] HospitalGlucose [Mass/Vol]175 mg/wGOphi23-22RefPdtscj [facility] HospitalGlucose [Mass/Vol]226 mg/qJTqrn43-24PbzZqdlgu [facility] Magnesium Ionized ISE (Bld) [Moles/Vol]on 25-12-9701Ixwqzoogv [Moles/Vol]0.74 mmol/LNormal0.45-0.74[facility] HospitalComment on above:Result Comment: NEW REFERENCE RANGEPerformed By: #### NAIN 71242-3, CBCAbram, CMP, #### [facility] ([id number]) [address] [place], [place] [address]JHTTALTQOJqq 82-28-4433Uayaxeffv [Mass/Vol]3.9 mg/dLNormal 2.4-4.9[facility] HospitalComment on above:Performed By: #### NAIN 36036- 9, CBCA, CMP, #### [facility] ([id number]) [address] [place], [place] [address]NBPKENEWMed 68-13-5102Nlwurwqzi [Moles/Vol]4.4 mmol/LNormal 3.5-5.0[facility] HospitalComment on above:Performed By: #### NAIN 46978- 9, CBCA, CMP, #### [facility] ([id number]) [address] [place], [place] [address]Lcussttul [Moles/Vol]4.6 mmol/LNormal3.5-5.0[facility] HospitalComment on above:Performed By: #### Cb GILLETTE79-9, CBCA, CMP, 1988-03, #### [facility] ([id number]) [address], [address] [place], [place] [address]VXXNCBI AND INRon 42-89-8783TGX Coag (PPP) [Relative time]1.1 {INR}Normal0.9-1.2PTr[facility] HospitalComment on above:Performed By: #### PINR, 21340-1, CBCA, CMP, 1988-03, #### [facility] ([id number]) [address], [address] [place], [place] [address]QJ Coag (PPP) [Time]12.7 sNormal9.8-13.2PTr[facility] HospitalComment on above:Performed By: #### PINR, 18513-6, CBCA, CMP, 1988-03, #### [facility] ([id number]) [address], [address] [place], [place] [address]OT CHEST 1 VWon 03-86-0810DB CHEST 1 VWXR CHEST 1 VW EXAM: [...] AMNormalProMedica Fuentes HospitalABG RAPID K GLU HHon 16-30-7127UAYNI'S TESTNormalProMedica Springfield HospitalComment on above:Performed By: #### CBCA, CMP, #### [facility] ([id number]) [address], [address] [place], [place] [address]WIBO,DEFICIT1.5 MMOL/LNormal0.0-2.0[facility] Comment on above:Performed By: #### JUSTIN BEDOYA, #### [facility] ([id number]) [address], [address] [place], [place] [address]Vmhf sxyjrceoboa92.6 [degF]Xpvmkk73.0[facility] Comment on above:Performed By: #### JUSTIN BEDOYA, #### [facility] ([id number]) [address], [address] [place], [place] [address]Pkqgpls [Mass/Vol]118 mg/fNBugj80-80MgfJlchjmMount [facility]el [facility] System Comment on above:Performed By: #### JUSTIN BEDOYA, #### [facility] ([id number]) [address], [address] [place], [place] [address]AQY8 (Bld) [Moles/Vol]23.9 mmol/OJojiim04-46JmjEivhjv [place] HospitalComment on above:Performed By: #### JUSTIN BEDOYA, #### [facility] ([id number]) [address], [address] [place], [place] [address]Oiffzikqdv (Bld) [Volume fraction]33 %Yif07-14AufYeifns [place] HospitalComment on above:Performed By: #### JUSTIN BEDOYA, #### [facility] ([id number]) [address], [address] [place], [place] [address]Nnqzordefb (Bld) [Mass/Vol]10.9 g/dLLow13.0-17.0Pro[facility] HospitalComment on above:Performed By: #### JUSTIN BEDOYA, #### [facility] ([id number]) [address], [address] [place], [place] [address]YJIG. O2 CONC.100 %NormalProMedica Fuentes HospitalComment on above:Performed By: #### JUSTIN BEDOYA, 60083-2 #### [facility] ([id number]) [address], [address] [place], [place] [address]Qztlyy (Bld) [Partial pressure]418 mm[Hg]Rhaa01-376YzjNcbbxh [facility] HospitalComment on above:Performed By: #### JUSTIN BEDOYA, #### [facility] ([id number]) [address], [address] [place], [place] [address]Kghpmm saturation in Mpewf506.4 %Normal>90[facility] HospitalComment on above:Performed By: #### JUSTIN BEDOYA, #### [facility] ([id number]) [address], [address] [place], [place] [address]QNT061.0 KJINWvbjwv61-27OpxAabumc [facility] HospitalComment on above:Performed By: #### JUSTIN BEDOYA, #### [facility] ([id number]) [address], [address] [place], [place] [address]vZ (Bld)7.364 [pH]Normal7.350-7.450[facility] Comment on above:Performed By: #### JUSTIN BEDOYA, #### [facility] ([id number]) [address], [address] [place], [place] [address]Trezrdxar [Moles/Vol]5.1 mmol/LHigh3.5-5.0[facility] HospitalComment on above:Performed By: #### JUSTIN BEDOYA, #### [facility] ([id number]) [address], [address] [place], [place] [address]QDTRTZ SITEALINENormalProMedica Fuentes HospitalComment on above: Performed By: #### JUSTIN BEDOYA, #### [facility] ([id number]) [address], [address] [place], [place] [address]XTDDUL TYPEArterialNormalProMedica Springfield HospitalComment on above:Performed By: #### JUSTIN BEDOYA, #### [facility] ([id number]) [address], [address] [place], [place] [address]EYBYQYXR BLOOD GASon 94-95-5313MSVUH'S TESTNormalProMedica Springfield HospitalComment on above:Performed By: #### JUSTIN BEDOYA, #### [facility] ([id number]) [address], [address] [place], [place] [address]XXAD,DEFICIT3.4 MMOL/LHigh0.0-2.0[facility] Comment on above:Performed By: #### JUSTIN BEDOYA, #### [facility] ([id number]) [address], [address] [place], [place] [address]Sfln agwgfluvtwb27.6 [degF]Swjjfz48.0[facility] Comment on above:Performed By: #### JUSTIN BEDOYA, #### [facility] ([id number]) [address], [address] [place], [place] [address]CIU2 (Bld) [Moles/Vol]22.5 mmol/GIfdsye72-29FafYkhtex [place] HospitalComment on above:Performed By: #### JUSTIN BEDOYA, #### [facility] ([id number]) [address], [address] [place], [place] [address]ZZQG. O2 CONC.100 %NormalProMedica Springfield HospitalComment on above:Performed By: #### JUSTIN BEDOYA, #### [facility] ([id number]) [address], [address] [place], [place] [address]Vxlnyp (Bld) [Partial pressure]284 mm[Hg]Dezq02-386AcfCybwqt [facility] HospitalComment on above:Performed By: #### JUSTIN BEDOYA, 94761-9 #### [facility] ([id number]) [address], [address] [place], [place] [address]Sramtg saturation in Blood99.9 %Normal>90[facility] HospitalComment on above:Performed By: #### JUSTIN BEDOYA, #### [facility] ([id number]) [address], [address] [place], [place] [address]XSN421.6 CTMILfzarc35-60JymKysipa Fuentes HospitalComment on above:Performed By: #### JUSTIN BEDOYA, 25160-0 #### [facility] ([id number]) [address], [address] [place], [place] [address]hX (Bld)7.332 [pH]Low7.350-7.450[facility] HospitalComment on above:Performed By: #### JUSTIN BEDOYA, #### [facility] ([id number]) [address], [address] [place], [place] [address]XWIDQF SITEALINENormalProMedica Fuentes HospitalComment on above: Performed By: #### JUSTIN BEDOYA, #### [facility] ([id number]) [address], [address] [place], [place] [address]BHHJXO TYPEArterialNormalProMedica Fuentes HospitalComment on above:Performed By: #### JUSTIN BEDOYA, #### [facility] ([id number]) [address], [address] [place], [place] [address]MEFZK UREA NITROGENon 48-77-9300Gqor nitrogen [Mass/Vol]21 mg/dL Normal5-27[facility] HospitalComment on above:Performed By: #### UA #### [facility] ([id number]) [address], [address] [place], [place] [address]Gorm nitrogen [Mass/Vol]19 mg/dLNormal5-27[facility] HospitalComment on above:Performed By: #### CBCA CMP, #### [facility] ([id number]) [address], [address] [place], [place] [address]GJD AND AUTO DIFFon 91-37-8042NONHSZKE BASOPHIL0.0 X10E9/LNormal 0.0-0.2[facility] HospitalComment on above:Performed By: #### CBCAbram, CMP, #### [facility] ([id number]) [address], [address] [place], [place] [address]LZFGCIUJ NEUTROPHIL3.8 X10E9/LNormal1.5-6.6ProMercy Health Anderson Hospitalca [place] HospitalComment on above:Performed By: #### CBCA, CMP, #### [facility] ([id number]) [address], [address] [place], [place] [address]Wcvngexvr/100 WBC (Bld)0.8 %NormalMount Carmel Health System Comment on above:Performed By: #### CBCA, CMP, #### [facility] ([id number]) [address], [address] [place], [place] [address]Tyerrnkpofm (Bld) [#/Vol]0.1 10*3/uLNormal0.0-0.4ProMercy Health Anderson Hospitalca [place] HospitalComment on above:Performed By: #### CBCA, CMP, #### [facility] ([id number]) [address], [address] [place], [place] [address]Qhdvpecmwbz/100 WBC (Bld)2.2 %NormalMount Carmel Health System Comment on above:Performed By: #### CBCA, CMP, #### [facility] ([id number]) [address], [address] [place], [place] [address]Bldwfditqgy distribution width (RBC) [Ratio]12.8 %Normal 11.5-15.0ProMercy Health Anderson Hospitalca [place] HospitalComment on above:Performed By: #### CBCAbram CMP, #### [facility] ([id number]) [address], [address] [place], [place] [address]Jjuptoplue (Bld) [Volume fraction]42.5 %Jwybdu90-70FqaEdltvy [facility] HospitalComment on above:Performed By: #### CBCAbram CMP, #### [facility] ([id number]) [address], [address] [place], [place] [address]Ubdzlkfrvr (Bld) [Mass/Vol]14.6 g/hXQqjdkp96.0-17.0Pro[facility] HospitalComment on above:Performed By: #### CBCAbram CMP, 03186-1 #### [facility] ([id number]) [address], [address] [place], [place] [address]Hhajunrdkum (Bld) [#/Vol]0.7 10*3/uLLow1.0-3.5[facility] HospitalComment on above:Performed By: #### CBCAbram, CMP, #### [facility] ([id number]) [address], [address] [place], [place] [address]Qbbbjjrxlki/100 WBC (Bld)13.4 %NormalProAdams [facility] Hospital Hospital Comment on above:Performed By: #### CBCA, CMP, #### [facility] ([id number]) [address], [address] [place], [place] [address]NLF (RBC) [Entitic mass]30.8 lzCfupfb81-50IcySowktg [facility] HospitalComment on above:Performed By: #### CBCA, CMP, #### [facility] ([id number]) [address], [address] [place], [place] [address]HDIC (RBC) [Mass/Vol]34.3 g/rJBjdywd16-97KguPjqppj [facility] HospitalComment on above:Performed By: #### CBCAbram, CMP, #### [facility] ([id number]) [address], [address] [place], [place] [address]ZJZ (RBC) [Entitic vol]90 xHHtoupy38-144SofSgrayg [facility] HospitalComment on above:Performed By: #### CBCAbram, CMP, #### [facility] ([id number]) [address], [address] [place], [place] [address]Zvhbajgnm (Bld) [#/Vol]0.5 10*3/uLNormal0-0.9ProMercy Health Anderson Hospitalca [place] HospitalComment on above:Performed By: #### CBCA, CMP, #### [facility] ([id number]) [address], [address] [place], [place] [address]Syoxnzrve/100 WBC (Bld)9.4 %NormalMount Carmel Health System Comment on above:Performed By: #### CBCAbram, CMP, #### [facility] ([id number]) [address], [address] [place], [place] [address]Ixfplddiaxf/100 WBC (Bld)74.2 %NormalMount Carmel Health System Comment on above:Performed By: #### CBCA, CMP, #### [facility] ([id number]) [address], [address] [place], [place] [address]Iodsexhm mean volume (Bld) [Entitic vol]7.7 fLNormal7-12 [facility] HospitalComment on above:Performed By: #### CBCA, CMP, 77377-4 #### [facility] ([id number]) [address], [address] [place], [place] [address]Wrxfgvyhl (Bld) [#/Vol]175 10*3/kKFzfcfy567-610MyvNtyquc [facility] HospitalComment on above:Performed By: #### ELKE CMP, 50175-4 #### [facility] ([id number]) [address], [address] [place], [place] [address]JZO COUNT4.73 X10E12/LNormal4.10-5.70[facility] Comment on above:Performed By: #### JUSTIN BEDOYA, #### [facility] ([id number]) [address], [address] [place], [place] [address]SLK (Bld) [#/Vol]5.1 10*3/uLNormal4.0-11.0[facility] HospitalComment on above:Performed By: #### JUSTIN BEDOYA, 61574-2 #### [facility] ([id number]) [address], [address] [place], [place] [address]QFSITZUFETQQA METABOLIC PANELon 02-55-8879Rojodrm [Mass/Vol]3.9 g/dLNormal3.2-5.3[facility] HospitalComment on above:Performed By: #### JUSTIN BEDOYA, #### [facility] ([id number]) [address], [address] [place], [place] [address]FYW [Catalytic activity/Vol]56 U/EKgqfao02-611XrjPahuce [facility] HospitalComment on above:Performed By: #### ELKE CMP, #### [facility] ([id number]) [address], [address] [place], [place] [address]DQO [Catalytic activity/Vol]11 U/LNormal0-40[facility] HospitalComment on above:Performed By: #### JUSTIN BEDOYA, #### [facility] ([id number]) [address], [address] [place], [place] [address]Pnotc gap [Moles/Vol]9 mmol/LNormal5-15ProMer[facility] Health [facility] Hospitalca [facility] Comment on above:Performed By: #### JUSTIN BEDOYA, #### [facility] ([id number]) [address], [address] [place], [place] [address]PDD [Catalytic activity/Vol]14 U/LNormal0-41ProMercy Health Anderson Hospitalca [facility] HospitalComment on above:Performed By: #### JUSTIN BEDOYA, #### [facility] ([id number]) [address], [address] [place], [place] [address]Hbduewblj [Mass/Vol]0.7 mg/dLNormal0.3-1.2ProMedbryan [facility] HospitalComment on above:Performed By: #### JUSTIN BEDOYA, #### [facility] ([id number]) [address], [address] [place], [place] [address]Jusecmx [Mass/Vol]9.0 mg/dLNormal8.5-10.5Pro[facility] HospitalComment on above:Performed By: #### JUSTIN BEDOYA, #### [facility] ([id number]) [address], [address] [place], [place] [address]Riunolba [Moles/Vol]104 mmol/RSczyvx17-057FmkKrdfma [facility] HospitalComment on above:Performed By: #### JUSTIN BEDOYA, #### [facility] ([id number]) [address], [address] [place], [place] [address]TZ8 [Moles/Vol]23 mmol/BOrshll21-61EudTtqxca [facility] Comment on above:Performed By: #### JUSTIN BEDOYA, #### [facility] ([id number]) [address], [address] [place], [place] [address]Jyjzljhwrz [Mass/Vol]1.14 mg/dLNormal0.60-1.30ProAv[facility] HospitalComment on above:Result Comment: METHOD TRACEABLE TO IDMS STANDARD Performed By: #### JUSTIN BEDOYA, 92066-1 #### [facility] ([id number]) [address] [place], [place] [address]WIH/1.73 sq M.predicted among non-blacks MDRD (S/P/Bld) [Vol rate/Area]71 mL/min/{1.73_m2}Normal>59ProAv[facility] Health System [facility] HospitalComment on above: Result Comment: Reported eGFR is based on the CKD-EPI 2020 equation that does not use a race coefficient.Performed By: #### JUSTIN BEDOYA, #### [facility] ([id number]) [address], [address] [place], [place] [address]Nbjkjyy [Mass/Vol]134 mg/tWVoto65-65FloElkbkdAvita Health System [facility] Hospital Comment on above:Performed By: #### JUSTIN BEDOYA, 44466-1 #### [facility] ([id number]) [address], [address] [place], [place] [address]Dtzjwsevo [Moles/Vol]3.9 mmol/LNormal3.5-5.0ProAv[facility] System [facility] HospitalComment on above:Performed By: #### JUSTIN BEDOYA, 29374-1 #### [facility] ([id number]) [address], [address] [place], [place] [address]Lxmqhni [Mass/Vol]6.3 g/dLNormal6.0-8.0[facility] Comment on above:Performed By: #### JUSTIN BEDOYA, 48343-2 #### [facility] ([id number]) [address], [address] [place], [place] [address]Ekiiku [Moles/Vol]136 mmol/POuyuva621-843PxbJobsun [place] HospitalComment on above:Performed By: #### JUSTIN BEDOYA, 84271-6 #### [facility] ([id number]) [address] [place] [address], [address] [place], [place] [address]Jsfs nitrogen [Mass/Vol]24 mg/dLNormal5-27ProAd[facility] HospitalComment on above:Performed By: #### JUSTIN BEDOYA, 96081-7 #### [facility] ([id number]) [address] [place] [address], [facility] [address] [place], [place] [address]PEFAGHXKECxx 84-22-0672Gmcsacmvwa [Mass/Vol]1.14 mg/dLNormal 0.60-1.30ProAv[facility] HospitalComment on above:Result Comment: METHOD TRACEABLE TO IDMS STANDARDPerformed By: #### UA #### [facility] ([id number]) [address] [place] [address], [address] [place], [place] [address]CCB/1.73 sq M.predicted among non-blacks MDRD (S/P/Bld) [Vol rate/Area]71 mL/min/{1.73_m2}Normal>59ProAvita Health System Galion HospitalComment on above: Result Comment: Reported eGFR is based on the CKD-EPI 2020 equation that does not use a race coefficient.Performed By: #### UA #### [facility] ([id number]) [address] [place] [address] [place] [address]Xurfnpjpzj [Mass/Vol]0.98 mg/dLNormal0.60-1.30ProAvita Health System Gal[facility] HospitalComment on above:Result Comment: METHOD TRACEABLE TO IDMS STANDARD Performed By: #### JUSTIN BEDOYA, 82940-5 #### [facility] ([id number]) [address] [facility] [address], [address] [place], [place] [address]KNO/1.73 sq M.predicted among non-blacks MDRD (S/P/Bld) [Vol rate/Area]86 mL/min/{1.73_m2}Normal>59ProAdams County Hospital HospitalComment on above: Result Comment: Reported eGFR is based on the CKD-EPI 2020 equation that does not use a race coefficient.Performed By: #### JUSTIN BEDOYA, 46597-3 #### [facility] ([id number]) [address], [address] [place], [place] [address]Lkiugjw.ionized (Bld) [Mass/Vol]on 33-13-5479UKFZFAU CALCIUM4.7 mg/dLNormal4.5-5.3PKeenan Private HospitalComment on above:Performed By: #### UA #### [facility] ([id number]) [address], [address] [place], [place] [address]JARWDLE CALCIUM5.0 mg/dLNormal4.5-5.3PTr[facility] Comment on above:Performed By: #### [facility], [address]-5 #### [facility] ([id number]) [address], [address] [place], [place] [address]Glzamxx Glucometer (BldC) [Mass/Vol]on 43-35-4415Aevxmfh [Mass/Vol]253 mg/vPCxjs95-40UqyFmexakMount Carmel Health SystemGlucose [Mass/Vol]140 mg/dL Rbsk17-69VdxFbgdlk Toledo HospitalGlucose [Mass/Vol]145 mg/qGOtug67-60GamMqwvotAvita Health System Galion HospitalGlucose [Mass/Vol]146 mg/fLEuux87-17CkiLhcxhgMount Carmel Health System Glucose [Mass/Vol]130 mg/eINbbl25-91WuzPbulnqMount Carmel Health SystemGlucose [Mass/Vol] 111 mg/eGVonx52-77WucHaqxjtMount Carmel Health SystemHGBon 37-59-2686Mzlomyzzfo (Bld) [Volume fraction]40.1 %Kwenwo67-15MpoBbbghnAvita Health System Galion HospitalComment on above: Performed By: #### UA #### [facility] ([id number]) [address], [address] [place], [place] [address]Qygsrfpmfo (Bld) [Mass/Vol]13.8 g/uSKzxylr04.0-17.0Pro[facility] HospitalComment on above:Performed By: #### UA #### [facility] ([id number]) [address], [address] [place] [address]Ockayiavbx (Bld) [Volume fraction]38.8 %Utw04-29KzhPvujpk Fuentes HospitalComment on above:Performed By: #### CBCA, CMP, 91013-8 #### [facility] ([id number]) [address], [address] [place], [place] [address]Kjqjnhnfxy (Bld) [Mass/Vol]13.2 g/mATpkyrc23.0-17.0ProMedica Fuentes HospitalComment on above:Performed By: #### CBCAbram, CMP, 65240-2 #### [facility] ([id number]) [address], [address] [place], [place] [address]XGVCPSTCZsd 04-66-6415Yjbgjvbzx [Mass/Vol]2.2 mg/dLNormal1.8-2.6 [facility] HospitalComment on above:Performed By: #### CBCA, CMP, 32315-7 #### [facility] ([id number]) [address], [address] [place], [place] [address]Wxweforhu Ionized ISE (Bld) [Moles/Vol]on 93-19-0879Qawkjcdrg [Moles/Vol]0.73 mmol/LNormal0.45-0.74ProMedica Fuentes HospitalComment on above: Result Comment: NEW REFERENCE RANGEPerformed By: #### UA #### [facility] ([id number]) [address], [address] [place] [address]Baumfbild [Moles/Vol]0.85 mmol/LHigh0.45-0.74ProMedica Fuentes HospitalComment on above:Result Comment: NEW REFERENCE RANGEPerformed By: #### JUSTIN BEDOYA, #### [facility] ([id number]) [address], [address] [place] [address]Wdcfkbgbh [Moles/Vol]0.58 mmol/LNormal0.45-0.60Pro[facility]ica Fuentes HospitalComment on above:Performed By: #### JUSTIN BEDOYA, #### [facility] ([id number]) [address], [address] [place], [place] [address]LOMNGRIW COUNT AND MPVon 16-32-1847Quwwjqnr mean volume (Bld) [Entitic vol]8.1 fLNormal7-12Pro[facility]ica Fuentes HospitalComment on above:Performed By: #### UA #### [facility] ([id number]) [address], [address] [place] [address]Hhmqododa (Bld) [#/Vol]179 10*3/gHNbbcqt176-250SrpQeicep Fuentes HospitalComment on above:Performed By: #### UA #### [facility] ([id number]) [address], [address] [place] [address]Xwfbthdk mean volume (Bld) [Entitic vol]7.5 fLNormal7-12 [facility] HospitalComment on above:Performed By: #### JUSTIN BEDOYA, #### [facility] ([id number]) [address], [address] [place], [place] [address]Ceslpicoy (Bld) [#/Vol]155 10*3/nDJhcses029-305EbgGtgdys Fuentes HospitalComment on above:Performed By: #### JUSTIN BEDOYA, #### [facility] ([id number]) [address], [address] [place] [address]TTWUGMRKMbu 63-90-1200Gjjiinppw [Moles/Vol]5.2 mmol/LHigh3.5-5.0 [facility] HospitalComment on above:Performed By: #### PINR, 07597-3, JUSTIN BEDOYA, 1989-03, #### [facility] ([id number]) [address], [address] [place] [address]Eyrucgwal [Moles/Vol]5.1 mmol/LHigh3.5-5.0[facility] HospitalComment on above:Performed By: #### JUSTIN BEDOYA, #### [facility] ([id number]) [address], [address] [place], [place] [address]PXNXKGK AND INRon 09-06-9983SNT Coag (PPP) [Relative time]1.2 {INR}Normal0.9-1.2[facility] HospitalComment on above:Performed By: #### JUSTIN BEDOYA, #### [facility] ([id number]) [address], [address] [place], [place] [address]DQ Coag (PPP) [Time]13.1 sNormal9.8-13.2[facility] HospitalComment on above:Performed By: #### JUSTIN BEDOYA, #### [facility] ([id number]) [address], [address] [place], [place] [address]VFNYO CARDIACon 15-14-2533NWTPS'S TESTNormalProMedica Springfield HospitalComment on above:Performed By: #### JUSTIN BEDOYA, #### [facility] ([id number]) [address], [address] [place], [place] [address]TMWY,DEFICIT2.8 MMOL/LHigh0.0-2.0[facility] Comment on above:Performed By: #### JUSTIN BEDOYA, #### [facility] ([id number]) [address], [address] [place], [place] [address]Gqab fnsgtpxrylx39.6 [degF]Isxkwk58.0[facility] Comment on above:Performed By: #### JUSTIN BEDOYA, #### [facility] ([id number]) [address], [address] [place], [place] [address]Totolxj [Mass/Vol]118 mg/qYGiog60-12ZibZgadhfMount Carmel Health System Comment on above:Performed By: #### JUSTIN BEDOYA, #### [facility] ([id number]) [address], [address] [place], [place] [address]ADQ9 (Bld) [Moles/Vol]23.1 mmol/OWtybfc47-55ZbdXojqxuAvita Health System Galion HospitalComment on above:Performed By: #### JUSTIN BEDOYA, #### [facility] ([id number]) [address], [address] [place], [place] [address]Lfatnrgkuh (Bld) [Volume fraction]37 %Lpg49-13YfsKgvkxgAvita Health System Galion HospitalComment on above:Performed By: #### JUSTIN BEDOYA, #### [facility] ([id number]) [address], [address] [place], [place] [address]Cnkdfzfvpe (Bld) [Mass/Vol]11.9 g/dLLow13.0-17.0ProAvita Health System Galion HospitalComment on above:Performed By: #### JUSTIN BEDOYA, #### [facility] ([id number]) [address], [address] [place], [place] [address]DWQF. O2 CONC.100 %NormalProAvita Health System Galion HospitalComment on above:Performed By: #### JUSTIN BEDOYA, #### [facility] ([id number]) [address], [address] [place], [place] [address]FSNVBAF CALCIUM5.2 mg/dLNormal4.5-5.3PKeenan Private Hospital Comment on above:Performed By: #### JUSTIN BEDOYA, #### [facility] ([id number]) [address], [address] [place], [place] [address]Lhagmr (Bld) [Partial pressure]145 mm[Hg]Owdp22-386LuqJbenna Fuentes HospitalComment on above:Performed By: #### JUSTIN BEDOYA, #### [facility] ([id number]) [address], [address] [place], [place] [address]Nwpaop saturation in Blood99.5 %Normal>90Pro[facility]ica Fuentes HospitalComment on above:Performed By: #### JUSTIN BEDOYA, #### [facility] ([id number]) [address], [address] [place], [place] [address]OWO656.4 RGOLOlzlvy28-63MfjQfsdeu Fuentes HospitalComment on above:Performed By: #### JUSTIN BEDOYA, #### [facility] ([id number]) [address], [address] [place], [place] [address]tF (Bld)7.334 [pH]Low7.350-7.450Pro[facility]entes HospitalComment on above:Performed By: #### JUSTIN BEDOYA, #### [facility] ([id number]) [address], [address] [place], [place] [address]Aahthgywm [Moles/Vol]5.0 mmol/LNormal3.5-5.0[facility] HospitalComment on above:Performed By: #### JUSTIN BEDOYA, #### [facility] ([id number]) [address], [address] [place], [place] [address]NFNAIE SITEALINENormalProMedica Fuentes HospitalComment on above: Performed By: #### JUSTIN BEDOYA, #### [facility] ([id number]) [address], [address] [place], [place] [address]NDNKII TYPEArterialNormalProAdams County Hospital HospitalComment on above:Performed By: #### JUSTIN BEDOYA, #### [facility] ([id number]) [address], [address] [place], [place] [address]ZFWSI'S TESTNormalProAdams County Hospital HospitalComment on above: Performed By: #### JUSTIN BEDOYA, #### [facility] ([id number]) [address], [address] [place], [place] [address]ITSA,DEFICIT1.7 MMOL/LNormal0.0-2.0[facility] Comment on above:Performed By: #### JUSTIN BEDOYA, #### [facility] ([id number]) [address], [address] [place], [place] [address]Nndv sjbykqsxdpk59.6 [degF]Kflnaq61.0[facility] Comment on above:Performed By: #### JUSTIN BEDOYA, #### [facility] ([id number]) [address], [address] [place], [place] [address]Kaowrhn [Mass/Vol]104 mg/eISlnn60-84TtsJzzdriMount Carmel Health System Comment on above:Performed By: #### JUSTIN BEDOYA, #### [facility] ([id number]) [address], [address] [place], [place] [address]OLJ7 (Bld) [Moles/Vol]23.6 mmol/DCmlqli64-11UnuLuclkgAvita Health System Galion HospitalComment on above:Performed By: #### JUSTIN BEDOYA, #### [facility] ([id number]) [address], [address] [place], [place] [address]Lutecvewcw (Bld) [Volume fraction]46 %Gbluli84-62ExqWbvpkd [place] HospitalComment on above:Performed By: #### JUSTIN BEDOYA, #### [facility] ([id number]) [address], [address] [place], [place] [address]Frdmnqbbsk (Bld) [Mass/Vol]14.9 g/rIPelhzc02.0-17.0[facility] HospitalComment on above:Performed By: #### CBCA, CMP, #### [facility] ([id number]) [address], [address] [place], [place] [address]XZDL. O2 CONC.100 %NormalProMedica Fuentes HospitalComment on above:Performed By: #### CBCA, CMP, #### [facility] ([id number]) [address], [address] [place], [place] [address]SIEPWDC CALCIUM4.8 mg/dLNormal4.5-5.3[facility] Comment on above:Performed By: #### CBCA, CMP, #### [facility] ([id number]) [address], [address] [place], [place] [address]Hqzrtp (Bld) [Partial pressure]87 mm[Hg]Ojwwat23-661NvkEjvgge Fuentes HospitalComment on above:Performed By: #### CBCA, CMP, #### [facility] ([id number]) [address], [address] [place], [place] [address]Tbcwcb saturation in Blood97.3 %Normal>90Pro[facility] HospitalComment on above:Performed By: #### CBCA, CMP, #### [facility] ([id number]) [address], [address] [place], [place] [address]GLI351.6 AVORHjnafp31-49ZeeXygwbh [facility]entes HospitalComment on above:Performed By: #### CBCA, CMP, #### [facility] ([id number]) [address], [address] [place], [place] [address]fR (Bld)7.373 [pH]Normal7.350-7.450[facility] Comment on above:Performed By: #### JUSTIN BEDOYA, 73706-4 #### [facility] ([id number]) [address], [address] [place], [place] [address]Qzoeprevw [Moles/Vol]4.4 mmol/LNormal3.5-5.0ProAd[facility] HospitalComment on above:Performed By: #### JUSTIN BEDOYA, 28880-9 #### [facility] ([id number]) [address], [facility] [address] [place], [place] [address]UEODHG SITEALINENormalProAdams County Hospital HospitalComment on above: Performed By: #### JUSTIN BEDOYA, 36775-7 #### [facility] ([id number]) [address], [address] [place], [place] [address]NXQOTG TYPEArterialNormalProAdams County Hospital HospitalComment on above:Performed By: #### JUSTIN BEODYA, 35190-6 #### [facility] ([id number]) [address], [address] [address]IL CHEST 1 VWon 76-51-1449FE CHEST 1 VWXR CHEST 1 VW XR [...] by Brett Ladd MD on 03/02/2025 4:48 PMNormalMount Carmel Health System aPTT Coag (PPP) [Time]on 81-41-5427wVNN Coag (Bld) [Time]26 uWhyiyf77-86 [facility] SystemComment on above:Performed By: #### CBCA, CMP, #### [facility] ([id number]) [address], [address] [place], [place] [address]VYW AND AUTO DIFFon 47-95-7105HVRTOQMB BASOPHIL0.0 X10E9/LNormal 0.0-0.2ProMedBrown Memorial HospitalComment on above:Performed By: #### NAIN [address]- 9, CBCA, CMP, #### [facility] ([id number]) [address], [address] [place], [place] [address]ZIZOMLKD NEUTROPHIL4.1 X10E9/LNormal1.5-6.6ProAvita Health System Galion HospitalComment on above:Performed By: #### NAIN 76444-5, CBCA, CMP, 1988-03, #### [facility] ([id number]) [address], [address] [place], [place] [address]Bpsnfucny/100 WBC (Bld)0.7 %NormalProAdams County Hospital Hospital Comment on above:Performed By: #### NAIN, 37831-7, CBCA, CMP, #### [facility] ([id number]) [address], [address] [place], [place] [address]Zkgnvzkbbph (Bld) [#/Vol]0.1 10*3/uLNormal0.0-0.4ProAvita Health System Gal[facility] HospitalComment on above:Performed By: #### NAIN, 92472-7, CBCA, CMP, #### [facility] ([id number]) [address], [address] [place], [place] [address]Zsbseqtcamx/100 WBC (Bld)2.7 %NormalProAvita Health System [facility] Hospital Comment on above:Performed By: #### NAIN, 11045-7, CBCA, CMP, #### [facility] ([id number]) [address], [address] [place], [place] [address]Nafinxxwrvl distribution width (RBC) [Ratio]12.7 %Normal 11.5-15.0ProAvita Health System Galion HospitalComment on above:Performed By: #### NAIN 41454-1, CBCA, CMP, 1988-03, #### [facility] ([id number]) [address], [address] [place], [place] [address]Vswzapggvg (Bld) [Volume fraction]43.1 %Wqqzvu44-01RrrDoyxahAvita Health System Galion HospitalComment on above:Performed By: #### NAIN 11093-7, CBCA, CMP, #### [facility] ([id number]) [address], [address] [place], [place] [address]Aalxwiflbr (Bld) [Mass/Vol]14.6 g/eCExqfrb49.0-17.0ProAvita Health System Gal[facility] HospitalComment on above:Performed By: #### NAIN, 73953-2, CBCA, CMP, #### [facility] ([id number]) [address] [address] [place], [place] [address]Urqdhtzwedq (Bld) [#/Vol]0.8 10*3/uLLow1.0-3.5PKeenan Private HospitalComment on above:Performed By: #### NAIN, 80330-2, CBCA, CMP, #### [facility] ([id number]) [address], [address] [place], [place] [address]Uwisjrgjjoy/100 WBC (Bld)14.9 %NormalProAdams County Hospital Hospital Comment on above:Performed By: #### NAIN, 42496-7, CBCA, CMP, #### [facility] ([id number]) [address], [address] [place], [place] [address]DEB (RBC) [Entitic mass]30.5 qaWtyxwi97-36CtdMlswdz Springfield HospitalComment on above:Performed By: #### NAIN, 92512-5, CBCA, CMP, 1988-03, #### [facility] ([id number]) [address], [address] [place], [place] [address]NKWN (RBC) [Mass/Vol]33.9 g/eUUbptjm16-60DazKzbrek [place] HospitalComment on above:Performed By: #### NAIN, 20076-1, CBCA, CMP, 1988-03, #### [facility] ([id number]) [address], [address] [place], [place] [address]EUS (RBC) [Entitic vol]90 gKKwkbya04-733IbnHjxysu [place] HospitalComment on above:Performed By: #### NAIN, 13249-2, CBCA, CMP, #### [facility] ([id number]) [address], [address] [place], [place] [address]Hyxdsfkaw (Bld) [#/Vol]0.4 10*3/uLNormal0-0.9ProAd[facility] Hospital HospitalComment on above:Performed By: #### PINR, 24283-8, CBCA, CMP, #### [facility] ([id number]) [address], [address] [place], [place] [address]Zeqgbfiag/100 WBC (Bld)7.7 %NormalMount Carmel Health System Comment on above:Performed By: #### NAIN, 47148-3, CBCA, CMP, 1988-03, #### [facility] ([id number]) [address], [address] [place], [place] [address]Lgzqdkvkcmi/100 WBC (Bld)74.0 %[facility] Comment on above:Performed By: #### NAIN, 07525-8, CBCA, CMP, 1988-03, #### [facility] ([id number]) [address], [address] [place], [place] [address]Riehfwdr mean volume (Bld) [Entitic vol]7.4 fLNormal7-12 [facility] Health SystemComment on above:Performed By: #### NAIN, 85710-3, CBCA, CMP, 1988-03, #### [facility] ([id number]) [address], [address] [place], [place] [address]Tycfindfq (Bld) [#/Vol]184 10*3/eYIrktel104-241UpwBmtlyw [place] HospitalComment on above:Performed By: #### NAIN, 53250-4, CBCA, CMP, 1988-03, #### [facility] ([id number]) [address], [address] [place], [place] [address]KIY COUNT4.80 X10E12/LNormal4.10-5.70[facility] Comment on above:Performed By: #### NAIN, 08571-4, CBCA, CMP, 1988-03, #### [facility] ([id number]) [address], [address] [place], [place] [address]QWA (Bld) [#/Vol]5.6 10*3/uLNormal4.0-11.0Pro[facility] HospitalComment on above:Performed By: #### PINR, 79175-5, CBCA, CMP, 1988-03, #### [facility] ([id number]) [address], [address] [place], [place] [address]JPMLCMNVLCJWR METABOLIC PANELon 72-72-0412Uxfakaq [Mass/Vol]3.9 g/dLNormal3.2-5.3[facility] HospitalComment on above:Performed By: #### NAIN, 91526-7, CBCA, CMP, 1988-03, #### [facility] ([id number]) [address], [address] [place], [place] [address]CGZ [Catalytic activity/Vol]53 U/USkwpsp24-716SbeKlpjbd [facility] HospitalComment on above:Performed By: #### NAIN, 43372-9, CBCA, CMP, 1988-03, #### [facility] ([id number]) [address], [address] [place], [place] [address]IIF [Catalytic activity/Vol]15 U/LNormal0-40[facility] HospitalComment on above:Performed By: #### NAIN, 42265-6, CBCA, CMP, 1988-03, #### [facility] ([id number]) [address], [address] [place], [place] [address]Pdrzv gap [Moles/Vol]8 mmol/LNormal5-15[facility] Comment on above:Performed By: #### PINR, 56952-4, CBCA, CMP, 1988-03, #### [facility] ([id number]) [address], [address] [place], [place] [address]GMF [Catalytic activity/Vol]14 U/LNormal0-41[facility] HospitalComment on above:Performed By: #### NAIN, 07471-4, CBCA, CMP, 1988-03, #### [facility] ([id number]) [address], [address] [place], [place] [address]Ezjpnwjql [Mass/Vol]0.9 mg/dLNormal0.3-1.2ProMedThe [facility] System HospitalComment on above:Performed By: #### NAIN, 82658-0, CBCA, CMP, 1988-03, #### [facility] ([id number]) [address], [address] [place], [place] [address]Oxphotu [Mass/Vol]9.4 mg/dLNormal8.5-10.5ProMedThe [facility] System HospitalComment on above:Performed By: #### NAIN 83780-9, CBCA, CMP, 1988-03, #### [facility] ([id number]) [address], [address] [place], [place] [address]Fhmeadkw [Moles/Vol]105 mmol/LTswalp17-697FofFhekey [place] HospitalComment on above:Performed By: #### NAIN 30117-9, CBCA, CMP, 1988-03, #### [facility] ([id number]) [address], [address] [place], [place] [address]PG0 [Moles/Vol]23 mmol/QZvtuvv81-72MliZvhlka [facility] Comment on above:Performed By: #### NAIN 56487-6, CBCA, CMP, 1988-03, #### [facility] ([id number]) [address], [address] [place], [place] [address]Inhmmqffzk [Mass/Vol]0.96 mg/dLNormal0.60-1.30ProAd[facility] HospitalComment on above:Result Comment: METHOD TRACEABLE TO IDMS STANDARD Performed By: #### NAIN, 58166-2, CBCA, CMP, #### [facility] ([id number]) [address], [address] [place], [place] [address]WKR/1.73 sq M.predicted among non-blacks MDRD (S/P/Bld) [Vol rate/Area]88 mL/min/{1.73_m2}Normal>59ProAvita Health System Galion HospitalComment on above: Result Comment: Reported eGFR is based on the CKD-EPI 2020 equation that does not use a race coefficient.Performed By: #### NAIN 89472-4, CBCA, CMP, #### [facility] ([id number]) [address], [facility] [address] [place], [place] [address]Uedjwle [Mass/Vol]96 mg/vCVguiwf96-30JhpXiromjMount Carmel Health System Comment on above:Performed By: #### NAIN 66557-5, CBCA, CMP, #### [facility] ([id number]) [address], [facility] [address] [place], [place] [address]Gfoqhecko [Moles/Vol]4.6 mmol/LNormal3.5-5.0ProAvita Health System Galion HospitalComment on above:Performed By: #### NAIN 27105-8, CBCA, CMP, #### [facility] ([id number]) [address], [facility] [address] [place], [place] [address]Dulzijs [Mass/Vol]6.7 g/dLNormal6.0-8.0[facility] Comment on above:Performed By: #### NAIN 93356-2, CBCA, CMP, #### [facility] ([id number]) [address] [address] [place], [place] [address]Uylaas [Moles/Vol]136 mmol/BNzozcz297-403OscNgpksh [place] HospitalComment on above:Performed By: #### NAIN 76177-5, CBCA, CMP, #### [facility] ([id number]) [address], [address] [place], [place] [address]Juzu nitrogen [Mass/Vol]28 mg/dLHigh5-27[facility] HospitalComment on above:Performed By: #### NAIN, 49635-6, CBCA, CMP, #### [facility] ([id number]) [address], [address] [place], [place] [address]TFL [Mass/Vol]on 03-01-2025 REACTIVE PROTEIN0.6 mg/dLNormal 0.000-0.744ProMedThe [facility] HospitalComment on above:Performed By: #### NAIN, 19582-6, CBCA, CMP, #### [facility] ([id number]) [address], [address] [place], [place] [address]QBYGWLERWpg 68-84-7426Sdqzuinah [Mass/Vol]2.3 mg/dLNormal1.8-2.6 [facility] HospitalComment on above:Performed By: #### NAIN, 64968-2, CBCA, CMP, #### [facility] ([id number]) [address], [address] [place], [place] [address]Lcgaafzidme peptide B [Mass/Vol]on 39-38-2033Kwbycthpiln peptide B (Bld) [Mass/Vol]11 pg/mLNormal<100.0[facility] HospitalComment on above:Performed By: #### CBCA, CMP, #### [facility] ([id number]) [address] [place], [place] [address]GAIRUXN AND INRon 18-08-1055PGE Coag (PPP) [Relative time]1.0 {INR}Normal0.9-1.2ProMedThe [facility] HospitalComment on above:Performed By: #### NAIN, 09631-4, CBCA, CMP, #### [facility] ([id number]) [address], [address] [place] [address]XZ Coag (PPP) [Time]11.9 sNormal9.8-13.2ProMedThe [facility] HospitalComment on above:Performed By: #### NAIN, 32762-6, CBCA, CMP, 1988-03, #### [facility] ([id number]) [address], [address] [place], [place] [address]yYGW Coag (PPP) [Time]on 99-50-6185cVYJ Coag (Bld) [Time]28 s Cgtbvw21-43TrdPqjatj [facility] HospitalComment on above:Performed By: #### NAIN, 87275-8, CBCA, CMP, 1988-03, #### [facility] ([id number]) [address], [address] [place], [place] [address]FVE AND AUTO DIFFon 68-50-5017SFVJCKQW BASOPHIL0.1 X10E9/LNormal 0.0-0.2ProMedThe [facility] HospitalComment on above:Performed By: #### CBCAbram CMP, #### [facility] ([id number]) [address], [address] [place], [place] [address]IJICEDNS NEUTROPHIL4.9 X10E9/LNormal1.5-6.6ProMercy Health Anderson Hospitalca [facility] HospitalComment on above:Performed By: #### CBCA, CMP, #### [facility] ([id number]) [address], [address] [place], [place] [address]Jndmpvkbj/100 WBC (Bld)0.9 %NormalProAdams [facility] Hospital Hospital Comment on above:Performed By: #### CBCA, CMP, #### [facility] ([id number]) [address], [address] [place], [place] [address]Ehyvuxieijc (Bld) [#/Vol]0.2 10*3/uLNormal0.0-0.4ProAdams County Hospital HospitalComment on above:Performed By: #### CBCJUSTIN Valverde, #### [facility] ([id number]) [address], [address] [place], [place] [address]Dqsjqfkbtlg/100 WBC (Bld)3.1 %NormalProAdams County Hospital Hospital Comment on above:Performed By: #### CBCAbram CMP, #### [facility] ([id number]) [address], [address] [place], [place] [address]Zeqknzmgrbr distribution width (RBC) [Ratio]13.2 %Normal 11.5-15.0ProAdams County Hospital HospitalComment on above:Performed By: #### CBCJUSTIN Valverde, #### [facility] ([id number]) [address], [address] [place], [place] [address]Iqkaxmhpyx (Bld) [Volume fraction]46.8 %Lcnyhd77-82AmnOveyqg [place] HospitalComment on above:Performed By: #### CBCAbram CMP, #### [facility] ([id number]) [address], [address] [place], [place] [address]Gzeowhduae (Bld) [Mass/Vol]16.0 g/kFDspfuh08.0-17.0ProAdams County Hospital HospitalComment on above:Performed By: #### CBCA, CMP, #### [facility] ([id number]) [address], [address] [place], [place] [address]Eqvtkkkbgtq (Bld) [#/Vol]1.1 10*3/uLNormal1.0-3.5ProMedThe [facility] HospitalComment on above:Performed By: #### CBCA, CMP, #### [facility] ([id number]) [address], [address] [place], [place] [address]Qdbsfqwlfzn/100 WBC (Bld)16.1 %NormalMount Carmel Health System Comment on above:Performed By: #### CBCA, CMP, #### [facility] ([id number]) [address], [address] [place], [place] [address]XZE (RBC) [Entitic mass]30.6 iuZdpjqf42-87GgfNecaex [place] HospitalComment on above:Performed By: #### CBCA, CMP, #### [facility] ([id number]) [address], [address] [place], [place] [address]JRHG (RBC) [Mass/Vol]34.1 g/qJIayhdv74-30ZrpVprdir [place] HospitalComment on above:Performed By: #### CBCA, CMP, #### [facility] ([id number]) [address], [address] [place], [place] [address]KKX (RBC) [Entitic vol]90 mKTqzoyl61-046ZkcSzxrch [place] HospitalComment on above:Performed By: #### CBCA, CMP, #### [facility] ([id number]) [address], [address] [place], [place] [address]Jmbxfguns (Bld) [#/Vol]0.5 10*3/uLNormal0-0.9ProAdams County Hospital HospitalComment on above:Performed By: #### CBCA, CMP, #### [facility] ([id number]) [address], [address] [place], [place] [address]Pqiyhybpi/100 WBC (Bld)7.4 %NormalMount Carmel Health System Comment on above:Performed By: #### CBCA, CMP, #### [facility] ([id number]) [address], [address] [place], [place] [address]Xyssmdnyvlf/100 WBC (Bld)72.5 %NormalMount Carmel Health System Comment on above:Performed By: #### CBCAbram, CMP, #### [facility] ([id number]) [address], [address] [place], [place] [address]Irzkdsfr mean volume (Bld) [Entitic vol]7.4 fLNormal7-12 [facility] HospitalComment on above:Performed By: #### CBCA, CMP, #### [facility] ([id number]) [address], [address] [place], [place] [address]Pjhjupnzp (Bld) [#/Vol]227 10*3/dGCezgln752-785JvjSgeegl [place] HospitalComment on above:Performed By: #### CBCAbram, CMP, #### [facility] ([id number]) [address], [address] [place], [place] [address]JIT COUNT5.22 X10E12/LNormal4.10-5.70[facility] Comment on above:Performed By: #### CBCAbram, CMP, #### [facility] ([id number]) [address], [address] [place], [place] [address]ZXV (Bld) [#/Vol]6.7 10*3/uLNormal4.0-11.0ProAd[facility] Hospital HospitalComment on above:Performed By: #### CBCA, CMP, #### [facility] ([id number]) [address], [address] [place], [place] [address]HDGIUIIXMHPSJ METABOLIC PANELon 16-74-3444Apuvvxl [Mass/Vol]4.4 g/dLNormal3.2-5.3[facility] SystemComment on above:Performed By: #### CBCA, CMP, #### [facility] ([id number]) [address], [address] [place], [place] [address]LNS [Catalytic activity/Vol]64 U/GExjguy97-333GbpJkfmif [place] HospitalComment on above:Performed By: #### JUSTIN BEDOYA, #### [facility] ([id number]) [address], [address] [place], [place] [address]MFB [Catalytic activity/Vol]13 U/LNormal0-40[facility] [place] HospitalComment on above:Performed By: #### JUSTIN BEDOYA, #### [facility] ([id number]) [address], [address] [place], [place] [address]Ioicd gap [Moles/Vol]7 mmol/LNormal5-15[facility] [place] [facility] Comment on above:Performed By: #### JUSTIN BEDOYA, #### [facility] ([id number]) [address], [address] [place], [place] [address]FJF [Catalytic activity/Vol]14 U/LNormal0-41[facility] [place] HospitalComment on above:Performed By: #### JUSTIN BEDOYA, #### [facility] ([id number]) [address], [address] [place], [place] [address]Hdvbteeap [Mass/Vol]0.9 mg/dLNormal0.3-1.2[facility] HospitalComment on above:Performed By: #### JUSTIN BEDOYA, #### [facility] ([id number]) [address], [address] [place], [place] [address]Bsieumx [Mass/Vol]9.5 mg/dLNormal8.5-10.5[facility] HospitalComment on above:Performed By: #### JUSTIN BEDOYA, #### [facility] ([id number]) [address], [address] [place], [place] [address]Zklkiwtr [Moles/Vol]103 mmol/WKsknrb73-938NzmVflpzo [facility] HospitalComment on above:Performed By: #### JUSTIN BEDOYA, 73802-5 #### [facility] ([id number]) [address], [address] [place], [place] [address]EU8 [Moles/Vol]29 mmol/ZLpibun82-97AujNhfdfhKeenan Private Hospital Comment on above:Performed By: #### JUSTIN BEDOYA, #### [facility] ([id number]) [address], [address] [place], [place] [address]Rmqylwychg [Mass/Vol]1.09 mg/dLNormal0.60-1.30ProAv[facility] Galion HospitalComment on above:Result Comment: METHOD TRACEABLE TO IDMS STANDARD Performed By: #### JUSTIN BEDOYA, #### [facility] ([id number]) [address], [address] [place], [place] [address]LOR/1.73 sq M.predicted among non-blacks MDRD (S/P/Bld) [Vol rate/Area]75 mL/min/{1.73_m2}Normal>59ProAv[facility] System Galion HospitalComment on above: Result Comment: Reported eGFR is based on the CKD-EPI 2020 equation that does not use a race coefficient.Performed By: #### JUSTIN BEDOYA, #### [facility] ([id number]) [address], [address] [place], [place] [address]Hmnjyhc [Mass/Vol]97 mg/sLNkyprg82-53LntQnmbhaMount Carmel Health System Comment on above:Performed By: #### JUSTIN BEDOYA, #### [facility] ([id number]) [address], [address] [place], [place] [address]Hwpzpnycg [Moles/Vol]4.3 mmol/LNormal3.5-5.0Pro[facility] System Galion HospitalComment on above:Performed By: #### JUSTIN BEDOYA, #### [facility] ([id number]) [address], [address] [place], [place] [address]Duafwzi [Mass/Vol]7.4 g/dLNormal6.0-8.0[facility] [place] [facility] Comment on above:Performed By: #### JUSTIN BEDOYA, 37454-5 #### [facility] ([id number]) [address], [address] [place], [place] [address]Sfdyzq [Moles/Vol]139 mmol/CYwaxme626-488ZssBwffxn [facility] HospitalComment on above:Performed By: #### JUSTIN BEDOYA, 40816-3 #### [facility] ([id number]) [address], [address] [place], [place] [address]Uwsc nitrogen [Mass/Vol]27 mg/dLNormal5-27[facility] HospitalComment on above:Performed By: #### JUSTIN BEDOYA, #### [facility] ([id number]) [address], [address] [place], [place] [address]JQNIDHFVKmy 57-37-1882Vbssetqcn [Mass/Vol]2.3 mg/dLNormal1.8-2.6 [facility] HospitalComment on above:Performed By: #### JUSTIN BEDOYA, 88608-2 #### [facility] ([id number]) [address], [address] [place], [place] [address]QFBQLPGJXXll 21-47-2544Weittoznd Ql (U)NegativeNormalNEG [facility] HospitalComment on above:Performed By: #### UA #### [facility] ([id number]) [address], [address] [place], [place] [address]TROWX/HGBLargeAbnormalNEGProMedica Fuentes HospitalComment on above:Performed By: #### UA #### [facility] ([id number]) [address], [address] [place], [place] [address]Baggb (U)YELLOWNormalYELLOWProMedica Fuentes HospitalComment on above:Performed By: #### UA #### [facility] ([id number]) [address], [address] [place], [place] [address]Xuyklss Ql (U)NegativeNormalNEGProMedica Fuentes HospitalComment on above:Performed By: #### UA #### [facility] ([id number]) [address], [address] [place], [place] [address]Lzaykxc Ql (U)10 mg/dLAbnormalNEGProMedica [facility] Comment on above:Performed By: #### UA #### [facility] ([id number]) [address], [address] [place], [place] [address]Tojiaiyej esterase Test strip Ql (U)NegativeNormalNEGProMedica Fuentes HospitalComment on above:Performed By: #### UA #### [facility] ([id number]) [address], [address] [place], [place] [address]SFHTUNGMBWIAEKmtobszyQXTHMdxYgxngi [facility] HospitalComment on above:Performed By: #### UA #### [facility] ([id number]) [address], [address] [place], [place] [address]Pcxmrox Ql (U)NegativeNormalNEGProMedica Fuentes HospitalComment on above:Performed By: #### UA #### [facility] ([id number]) [address], [address] [place], [place] [address]nM (U)6.0 [pH]Normal5.0-8.5[facility] HospitalComment on above:Performed By: #### UA #### [facility] ([id number]) [address], [address] [place], [place] [address]Xcoxccq Ql (U)100 mg/dLAbnormalNEGProMedica [facility] Comment on above:Performed By: #### UA #### [facility] ([id number]) [address], [address] [place], [place] [address]R.B.WWVSC149 /hpfHigh0-5ProMedThe [facility] HospitalComment on above:Performed By: #### UA #### [facility] ([id number]) [address], [address] [place], [place] [address]Yshqzgot gravity (U) [Rel density]1.319Wrqqne3.003-1.035 [facility] HospitalComment on above:Performed By: #### UA #### [facility] ([id number]) [address] [place] [place] [address], [address] [place], [place] [address]NWGSICET EPITHELIUM<4Xmlbqa5-2DrgUspwbs [place] HospitalComment on above:Performed By: #### UA #### [facility] ([id number]) [address] [place] [place] [address], [address] [place], [place] [address]YHNAEJFZOVMSXQSplanfPWPCBXucJiyjoq Springfield HospitalComment on above:Performed By: #### UA #### [facility] ([id number]) [address] [place] [place] [address], [address] [place], [place] [address]Mknjwuqcrtnj (U) [Mass/Vol]mg/dLNormal<1.1ProMedThe [facility] HospitalComment on above:Performed By: #### UA #### [facility] ([id number]) [address] [place] [place] [address], [address] [place], [place] [address]B.B.CELLS4 /hpfNormal0-5PTrinity Health System [facility] HospitalComment on above:Performed By: #### UA #### [facility] ([id number]) [address] [place] [place] [address], [address] [place], [place] [address]LTT AND AUTO DIFFon 61-70-4610BMHWDOVR BASOPHIL0.1 X10E9/LNormal 0.0-0.2ProMedB[facility] HospitalComment on above:Performed By: #### 64764-0 #### [facility] ([id number]) [address] [place] [address]XBWUEDHM NEUTROPHIL5.7 X10E9/LNormal1.5-6.6ProMemorial [facility] HospitalComment on above:Performed By: #### 89709-1 #### [facility] ([id number]) [address] [place] [address]Bzyahofna/100 WBC (Bld)0.7 %NormalWilson Health Comment on above:Performed By: #### 52835-7 #### [facility] ([id number]) [address] [place] [address]Rkalhdilblu (Bld) [#/Vol]0.2 10*3/uLNormal0.0-0.4Wilson HealthComment on above:Performed By: #### 13403-2 #### [facility] ([id number]) [address] [place] [address]Ygaoheowsxj/100 WBC (Bld)2.6 %NormalWilson Health Comment on above:Performed By: #### 60427-6 #### [facility] ([id number]) [address] [place] [address]Pwkfmborxwm distribution width (RBC) [Ratio]12.9 %Normal 11.5-15.0Wilson HealthComment on above:Performed By: #### 77440-0 #### [facility] ([id number]) [address] [place] [address]Qkadxcduev (Bld) [Volume fraction]44.5 %Muygcs40-92NfvXjvntuMemorial Hermann Sugar Land HospitalComment on above:Performed By: #### 98282-7 #### [facility] ([id number]) [address] [place] [address]Wkdpbeqxsp (Bld) [Mass/Vol]15.4 g/vLIhcowj10.0-17.0Wilson HealthComment on above:Performed By: #### 66652-1 #### [facility] ([id number]) [address] [place] [address]Bzdkjxtzlxr (Bld) [#/Vol]1.0 10*3/uLNormal1.0-3.5[facility] Regional Medical CenterComment on above:Performed By: #### 26915-5 #### [facility] ([id number]) [address] [place] [address]Aesieskxezd/100 WBC (Bld)13.5 %NormalProMemorial Hermann [facility] Hospital Comment on above:Performed By: #### 79043-1 #### [facility] ([id number]) [address] [place] [address]ZCY (RBC) [Entitic mass]31.1 vuKzsvfp41-24KsjLovvgcMemorial Hermann [facility] HospitalComment on above:Performed By: #### 63240-1 #### [facility] ([id number]) [address] [place] [address]EQOA (RBC) [Mass/Vol]34.7 g/nHIvfbkb70-64VtcUqhmesMemorial Hermann Sugar Land HospitalComment on above:Performed By: #### 43148-1 #### [facility] ([id number]) [address] [place] [address]QQU (RBC) [Entitic vol]90 hOUuneiu09-199FguIwbjkx [facility] HospitalComment on above:Performed By: #### 40677-9 #### [facility] ([id number]) [address] [place] [address]Niylactnj (Bld) [#/Vol]0.5 10*3/uLNormal0-0.9Wilson HealthComment on above:Performed By: #### 88166-2 #### [facility] ([id number]) [address] [place] [address]Lupksgfbi/100 WBC (Bld)6.9 %[facility] Comment on above:Performed By: #### 58516-1 #### [facility] ([id number]) [address] [place] [address]Ysauhahetne/100 WBC (Bld)76.3 %[facility] Comment on above:Performed By: #### 57315-7 #### [facility] ([id number]) [address] [place] [address]Jalwappt mean volume (Bld) [Entitic vol]7.8 fLNormal7-12 [facility] HealthComment on above:Performed By: #### 81194-6 #### [facility] ([id number]) [address] [place] [address], [place] [address]Exrmlpkah (Bld) [#/Vol]213 10*3/fGXydmvg439-419CwbRehedtWilson HealthComment on above:Performed By: #### 58972-0 #### [facility] ([id number]) [address] [place] [address]EBD COUNT4.96 X10E12/LNormal4.10-5.70[facility] Comment on above:Performed By: #### 05463-1 #### [facility] ([id number]) [address] [place] [address], [place] [address]ENV (Bld) [#/Vol]7.5 10*3/uLNormal4.0-11.0Wilson HealthComment on above:Performed By: #### 23794-1 #### [facility] ([id number]) [address] [place] [address]YVIEUUBKUVWEL METABOLIC PANELon 64-56-1354Doieuvq [Mass/Vol]3.8 g/dLNormal3.2-5.3PMemorial Hospital Central HospitalComment on above:Performed By: #### 78993-8 #### [facility] ([id number]) [address] [place] [address], [place] [address]PRS [Catalytic activity/Vol]58 U/VQbnqem64-329IcfYovhohMemorial Hermann Sugar Land HospitalComment on above:Performed By: #### 95476-0 #### [facility] ([id number]) [address] [place] [address], [place] [address]TUD [Catalytic activity/Vol]16 U/LNormal0-40ProMemorial [facility] HospitalComment on above:Performed By: #### 05770-1 #### [facility] ([id number]) [address] [place] [address], [place] [address]Tousd gap [Moles/Vol]6 mmol/LNormal5-15Pro[facility] HospitalComment on above:Performed By: #### 35161-7 #### [facility] ([id number]) [address] [place] [address], [place] [address]FRU [Catalytic activity/Vol]16 U/LNormal0-41Pro[facility] HospitalComment on above:Performed By: #### 80976-1 #### [facility] ([id number]) [address] [place] [address], [place] [address]Twzoyejyu [Mass/Vol]1.0 mg/dLNormal0.3-1.2PUniversity Hospitals TriPoint Medical CenterComment on above:Performed By: #### 82163-2 #### [facility] ([id number]) [address] [place] [address], [place] [address]Ftyvznu [Mass/Vol]9.0 mg/dLNormal8.5-10.5PMemorial Hospital Central HospitalComment on above:Performed By: #### 41584-6 #### [facility] ([id number]) [address] [place] [address], [place] [address]Sslimdkt [Moles/Vol]103 mmol/RIdoyjj31-087BwwKtfvnbMemorial Hermann Sugar Land HospitalComment on above:Performed By: #### 42093-6 #### [facility] ([id number]) [address] [place] [address]KE8 [Moles/Vol]24 mmol/RWjdulk31-80DywDdluuiUniversity Hospitals TriPoint Medical Center Comment on above:Performed By: #### 11457-9 #### [facility] ([id number]) [address] [place] [address], [place] [address]Rymyewacak [Mass/Vol]1.23 mg/dLHigh0.70-1.20Wilson HealthComment on above:Result Comment: METHOD TRACEABLE TO IDMS STANDARD Performed By: #### 95895-4 #### [facility] ([id number]) [address] [place] [address]ARH/1.73 sq M.predicted among non-blacks MDRD (S/P/Bld) [Vol rate/Area]65 mL/min/{1.73_m2}Normal>59Wilson HealthComment on above:Result Comment: Reported eGFR is based on the CKD-EPI 2020 equation that does not use a race coefficient.Performed By: #### 86964-9 #### [facility] ([id number]) [address] [place] [address]Yrcpxbm [Mass/Vol]121 mg/zLQldg78-51UlwRutckiWilson Health Comment on above:Performed By: #### 01347-8 #### [facility] ([id number]) [address] [place] [address]Knsnayvzw [Moles/Vol]3.9 mmol/LNormal3.5-5.0ProMemorial [facility] HospitalComment on above:Performed By: #### 69155-4 #### [facility] ([id number]) [address] [place] [address], [place] [address]Ycboixs [Mass/Vol]7.1 g/dLNormal6.0-8.0ProMemorial [facility] HospitalComment on above:Performed By: #### 73340-5 #### [facility] ([id number]) [address] [place] [address]Rpbyck [Moles/Vol]133 mmol/KTvb981-054ZxtGgdxciMemorial Hermann Sugar Land HospitalComment on above:Performed By: #### 76364-9 #### [facility] ([id number]) [address] [place] [address]Emuu nitrogen [Mass/Vol]28 mg/dLHigh5-27ProMem[facility] HospitalComment on above:Performed By: #### 41292-8 #### [facility] ([id number]) [address] [place] [address]BVUVTKDQUtj 35-78-0846Cxtjvjthj [Mass/Vol]2.4 mg/dLNormal 1.8-2.6Wilson HealthComment on above:Performed By: #### 52534-6 #### [facility] ([id number]) [address] [place] [address]LPV AND AUTO DIFFon 41-05-8006VKBIKLFX BASOPHIL0.1 X10E9/L Normal0.0-0.2Pro[facility] Regional Medical CenterComment on above:Performed By: #### 68733-7 #### [facility] ([id number]) [address] [place] [address] 138[address]YFIZUDIU NEUTROPHIL4.5 X10E9/LNormal1.5-6.6ProMemorial [facility] HospitalComment on above:Performed By: #### 10301-5 #### [facility] ([id number]) [address] [place] [address]Qjjzivslg/100 WBC (Bld)0.9 %NormalWilson Health Comment on above:Performed By: #### 48000-8 #### [facility] ([id number]) [address] [place] [address]Spdhfczdyiq (Bld) [#/Vol]0.3 10*3/uLNormal0.0-0.4Wilson HealthComment on above:Performed By: #### 40559-7 #### [facility] ([id number]) [address] [place] [address]48[address]Wgxiqrhwmqi/100 WBC (Bld)4.1 %NormalWilson Health Comment on above:Performed By: #### 22272-9 #### [facility] ([id number]) [address] [place] [address]Sokpzsdsarm distribution width (RBC) [Ratio]12.8 %Normal 11.5-15.0Wilson HealthComment on above:Performed By: #### 65651-5 #### [facility] ([id number]) [address] [place] [address]Aihhdnpadt (Bld) [Volume fraction]41.2 %Zvbroi58-52MtfUoplbtMemorial Hermann Sugar Land HospitalComment on above:Performed By: #### 17540-6 #### [facility] ([id number]) [address] [place] [address]Rawkrcuclk (Bld) [Mass/Vol]14.4 g/tEVodbdz30.0-17.0Wilson HealthComment on above:Performed By: #### 36203-7 #### [facility] ([id number]) [address] [place] [address]Fbejpgnpjst (Bld) [#/Vol]0.9 10*3/uLLow1.0-3.5PUniversity Hospitals TriPoint Medical CenterComment on above:Performed By: #### 27416-0 #### [facility] ([id number]) [address] [place] [address] 72334Sdyxkcncqgx/100 WBC (Bld)14.4 %NormalWilson Health Comment on above:Performed By: #### 23130-7 #### [facility] ([id number]) [address] [place] [address]IHR (RBC) [Entitic mass]31.3 czDwkwbd93-09QzfJpecoiWilson HealthComment on above:Performed By: #### 23658-3 #### [facility] ([id number]) [address] [place] [address]OJUP (RBC) [Mass/Vol]35.0 g/fMJkdrir44-75DlvAbvwxpMemorial Hermann Sugar Land HospitalComment on above:Performed By: #### 15232-8 #### [facility] ([id number]) [address] [place] [address] 45[address]HQT (RBC) [Entitic vol]90 rNOzgycv82-189OkmAadrcwWilson HealthComment on above:Performed By: #### 08156-9 #### [facility] ([id number]) [address] [place] [address] 133[address]Viamuvgkr (Bld) [#/Vol]0.5 10*3/uLNormal0-0.9Wilson HealthComment on above:Performed By: #### 28108-2 #### [facility] ([id number]) [address] [place] [address] 46218Ksfooutzj/100 WBC (Bld)8.4 %[facility] Comment on above:Performed By: #### 69789-7 #### [facility] ([id number]) [address] [place] [address] 28468Gqnpucgnknp/100 WBC (Bld)72.2 %NormalWilson Health Comment on above:Performed By: #### 97930-8 #### [facility] ([id number]) [address] [place] [address]58[address]Upxjmxcm mean volume (Bld) [Entitic vol]7.5 fLNormal7-12 ProMedicPacifica Hospital Of The ValleyComment on above:Performed By: #### 68490-2 #### [facility] ([id number]) [address] [place] [address]26[address]Fvcyzcpdc (Bld) [#/Vol]172 10*3/sNZvbrqh095-322XbiSamxohWilson HealthComment on above:Performed By: #### 02660-8 #### [facility] ([id number]) [address] [place] [address] 70953TNI COUNT4.60 X10E12/LNormal4.10-5.70[facility] Comment on above:Performed By: #### 15424-8 #### [facility] ([id number]) [address] [place] [address]KUM (Bld) [#/Vol]6.3 10*3/uLNormal4.0-11.0Wilson HealthComment on above:Performed By: #### 81565-1 #### [facility] ([id number]) [address] [place] [address] 29951HDDKAXOTHDZSY METABOLIC PANELon 10-12-4156Sqccunh [Mass/Vol]4.0 g/dLNormal3.2-5.3PUniversity Hospitals TriPoint Medical CenterComment on above:Performed By: #### 65354-5 #### [facility] ([id number]) [address] FLO[address] [place], [place] [address]ASL [Catalytic activity/Vol]51 U/DCtdxiy83-298ExfHflobwMemorial Hermann Sugar Land HospitalComment on above:Performed By: #### 76575-3 #### [facility] ([id number]) [address] [place] [address], [place] [address]OPI [Catalytic activity/Vol]15 U/LNormal0-40ProMemorial Hermann Sugar Land HospitalComment on above:Performed By: #### 77023-7 #### [facility] ([id number]) [address] [place] [address], [place] [address]Wdfco gap [Moles/Vol]6 mmol/LNormal5-15ProMemorial Hermann [facility] HospitalComment on above:Performed By: #### 24701-6 #### [facility] ([id number]) [address] [place] [address], [place] [address]YRK [Catalytic activity/Vol]15 U/LNormal0-41ProMemorial Hermann [facility] HospitalComment on above:Performed By: #### 23393-0 #### [facility] ([id number]) [address] [place] [address], [place] [address]Jmfjeehtx [Mass/Vol]1.2 mg/dLNormal0.3-1.2ProMedSonora Regional Medical CenterComment on above:Performed By: #### 47057-4 #### [facility] ([id number]) [address] [place] [address], [place] [address]Aswjtip [Mass/Vol]8.9 mg/dLNormal8.5-10.5PUniversity Hospitals TriPoint Medical CenterComment on above:Performed By: #### 25021-5 #### [facility] ([id number]) [address] [place] [address], [place] [address]Lixzkkya [Moles/Vol]107 mmol/GDtdsla53-661IygDlxskrMemorial Hermann Sugar Land HospitalComment on above:Performed By: #### 25431-9 #### [facility] ([id number]) [address] [place] [address]FJ9 [Moles/Vol]23 mmol/XOzbbiz00-16EroPegqfcUniversity Hospitals TriPoint Medical Center Comment on above:Performed By: #### 43737-9 #### [facility] ([id number]) [address] [place] [address]Worphtooml [Mass/Vol]1.04 mg/dLNormal0.70-1.20Wilson HealthComment on above:Result Comment: METHOD TRACEABLE TO IDMS STANDARD Performed By: #### 37400-9 #### [facility] ([id number]) [address] [place] [address] 128[address]XZN/1.73 sq M.predicted among non-blacks MDRD (S/P/Bld) [Vol rate/Area]80 mL/min/{1.73_m2}Normal>59Wilson HealthComment on above:Result Comment: Reported eGFR is based on the CKD-EPI 2020 equation that does not use a race coefficient.Performed By: #### 98852-4 #### [facility] ([id number]) [address] [place] [address]Nncbuon [Mass/Vol]115 mg/iQOofa24-02KirAchpcwWilson Health Comment on above:Performed By: #### 31860-9 #### [facility] ([id number]) [address] [place] [address]Pspfmjbin [Moles/Vol]3.9 mmol/LNormal3.5-5.0Wilson HealthComment on above:Performed By: #### 21280-5 #### [facility] ([id number]) [address] [place] [address], [place] [address]Njazkva [Mass/Vol]6.6 g/dLNormal6.0-8.0Wilson HealthComment on above:Performed By: #### 69501-9 #### [facility] ([id number]) [address] [place] [address]Hxeful [Moles/Vol]136 mmol/MDxymzg513-493KpnDrzmjf Fremont HospitalComment on above:Performed By: #### 29116-1 #### [facility] ([id number]) [address] [place] [address], [place] [address]Pral nitrogen [Mass/Vol]23 mg/dLNormal5-27ProMemorial Hermann Sugar Land HospitalComment on above:Performed By: #### 19673-5 #### [facility] ([id number]) [address] [place] [address], [place] [address]VUBFUSTHOha 54-65-2574Hultwcccx [Mass/Vol]2.4 mg/dLNormal 1.8-2.6Wilson HealthComment on above:Performed By: #### 14145-3 #### [facility] ([id number]) [address] [place] [address]Brzqtfbuo [Mass/Vol]1.9 mg/dLNormal1.8-2.6ProMemorial Hermann Sugar Land HospitalComment on above:Performed By: #### 83975-9 #### [facility] ([id number]) [address] [place] [address]KFD AND AUTO DIFFon 22-14-5341EMGWOIGP BASOPHIL0.1 X10E9/L Normal0.0-0.2ProMedSonora Regional Medical CenterComment on above:Performed By: #### 73536-3, 3040-3, CMP, CBCA #### [facility] ([id number]) [address] [place] [address], [place] [address]NCYGJXTZ NEUTROPHIL4.4 X10E9/LNormal1.5-6.6ProMemorial Hermann [facility] Land HospitalComment on above:Performed By: #### 09726-1, 3040-3, CMP, CBCA #### [facility] ([id number]) [address] [place] [address] 53258Fzkahywup/100 WBC (Bld)0.9 %NormalWilson Health Comment on above:Performed By: #### 16737-0, 3040-3, CMP, CBCA #### [facility] ([id number]) [address] [place] [address] 80421Cickobscqiu (Bld) [#/Vol]0.2 10*3/uLNormal0.0-0.4ProMemorial Hermann [facility] HospitalComment on above:Performed By: #### 70148-3, 3039-3, CMP, CBCA #### [facility] ([id number]) [address] [place] [address] 30736Uxwyvbetixn/100 WBC (Bld)3.1 %NormalWilson Health Comment on above:Performed By: #### 59739-8, 3039-3, CMP, CBCA #### [facility] ([id number]) [address] [place] [address] 36776Ylsteqwemsq distribution width (RBC) [Ratio]12.9 %Normal 11.5-15.0Wilson HealthComment on above:Performed By: #### 30030-8, 304-3, CMP, CBCA #### [facility] ([id number]) [address] [place] [address] 21700Nhscdsimzc (Bld) [Volume fraction]40.6 %Axmrzg77-80DevJotfdnMemorial Hermann Sugar Land HospitalComment on above:Performed By: #### 60206-6, 3040-3, CMP, CBCA #### [facility] ([id number]) [address] [place] [address] 00206Siowmpvzni (Bld) [Mass/Vol]14.1 g/jKYannmd69.0-17.0ProMemorial Herm[facility] HospitalComment on above:Performed By: #### 18226-0, 3039-3, CMP, CBCA #### [facility] ([id number]) [address] [place] [address] 55303Xgjyranrnlz (Bld) [#/Vol]0.9 10*3/uLLow1.0-3.5PUniversity Hospitals TriPoint Medical CenterComment on above:Performed By: #### 60192-2, 3039-3, CMP, CBCA #### [facility] ([id number]) [address] [place] [address] 97352Hcaiicvlcac/100 WBC (Bld)14.4 %NormalWilson Health Comment on above:Performed By: #### 82595-9, 3039-3, CMP, CBCA #### [facility] ([id number]) [address] [place] [address] 20918FKF (RBC) [Entitic mass]31.4 cmPdmgmp30-17DtkSdacqoMemorial Hermann Sugar Land HospitalComment on above:Performed By: #### 14221-1, 3039-3, CMP, CBCA #### [facility] ([id number]) [address] [place] [address] 91564HZSO (RBC) [Mass/Vol]34.7 g/xSYlcbsy50-63WvhRofbfnWilson HealthComment on above:Performed By: #### 87928-4, 3039-3, CMP, CBCA #### [facility] ([id number]) [address] [place] [address] 22394PUD (RBC) [Entitic vol]90 dHCynhmz18-728EcjFlfafhWilson HealthComment on above:Performed By: #### 92800-7, 3039-3, CMP, CBCA #### [facility] ([id number]) [address] [place] [address] 60953Vhtkvzfok (Bld) [#/Vol]0.5 10*3/uLNormal0-0.9Wilson HealthComment on above:Performed By: #### 94090-8, 3040-3, CMP, CBCA #### [facility] ([id number]) [address] [place] [address] 35285Cetqquqnv/100 WBC (Bld)9.0 %NormalWilson Health Comment on above:Performed By: #### 84418-7, 0-3, CMP, CBCA #### [facility] ([id number]) [address] [place] [address] 72730Agriltieuml/100 WBC (Bld)72.6 %NormalWilson Health Comment on above:Performed By: #### 53372-4, 3039-3, CMP, CBCA #### [facility] ([id number]) [address] [place] [address] 31873Lrpimnei mean volume (Bld) [Entitic vol]7.6 fLNormal7-12 Wilson HealthComment on above:Performed By: #### 39752-0, 3039-3, CMP, CBCA #### [facility] ([id number]) [address] [place] [address] 25463Yxfkofgie (Bld) [#/Vol]160 10*3/qPSryomk153-881OnrPcjxbxWilson HealthComment on above:Performed By: #### 10405-7, 3040-3, CMP, CBCA #### [facility] ([id number]) [address] [place] [address] 23395NGL COUNT4.49 X10E12/LNormal4.10-5.70[facility] Comment on above:Performed By: #### 31318-4, 3040-3, CMP, CBCA #### [facility] ([id number]) [address] FLO[address] [place], [place] [address]DWP (Bld) [#/Vol]6.0 10*3/uLNormal4.0-11.0ProMercer County Community Hospital HospitalComment on above:Performed By: #### 29259-2, 3040-3, CMP, CBCA #### [facility] ([id number]) [address] [place] [address] 55171LZGCOQCUTIHYV METABOLIC PANELon 98-67-9601Avendvr [Mass/Vol]3.6 g/dLNormal3.2-5.3ProMedica [facility]. John'S Regional Medical CenterComment on above:Performed By: #### 38083-6, 3039-3, CMP, CBCA #### [facility] ([id number]) [address] [place] [address], [place] [address]BIB [Catalytic activity/Vol]50 U/EDgjggc96-925ZdpYnadyeMemorial Hermann Sugar Land HospitalComment on above:Performed By: #### 82039-0, 3039-3, CMP, CBCA #### [facility] ([id number]) [address] [place] [address], [place] [address]FIW [Catalytic activity/Vol]15 U/LNormal0-40ProMem[facility] HospitalComment on above:Performed By: #### 62722-1, 0-3, CMP, CBCA #### [facility] ([id number]) [address] [place] [address], [place] [address]Kjkuq gap [Moles/Vol]5 mmol/LNormal5-15ProMercer County Community Hospital HospitalComment on above:Performed By: #### 59907-0, 0-3, CMP, CBCA #### [facility] ([id number]) [address] [place] [address], [place] [address]FCN [Catalytic activity/Vol]13 U/LNormal0-41ProMercer County Community Hospital HospitalComment on above:Performed By: #### 73013-9, 3039-3, CMP, CBCA #### [facility] ([id number]) [address] [place] [address], [place] [address]Rhjtvjhbr [Mass/Vol]1.1 mg/dLNormal0.3-1.2PUniversity Hospitals TriPoint Medical CenterComment on above:Performed By: #### 09045-5, 3040-3, CMP, CBCA #### [facility] ([id number]) [address] [place] [address], [place] [address]Zsofcmd [Mass/Vol]9.1 mg/dLNormal8.5-10.5PUniversity Hospitals TriPoint Medical CenterComment on above:Performed By: #### 28771-4, 3039-3, CMP, CBCA #### [facility] ([id number]) [address] [place] [address], [place] [address]Exvwojto [Moles/Vol]110 mmol/MWxxp19-191OfbQwqkmaMemorial Hermann Sugar Land HospitalComment on above:Performed By: #### 97030-3, 3039-3, CMP, CBCA #### [facility] ([id number]) [address] [place] [address], [place] [address]JP2 [Moles/Vol]25 mmol/LSehgfw91-94BaoFjwzorUniversity Hospitals TriPoint Medical Center Comment on above:Performed By: #### 50039-0, 3039-3, CMP, CBCA #### [facility] ([id number]) [address] [place] [address], [place] [address]Hejwxrehmq [Mass/Vol]0.99 mg/dLNormal0.70-1.20ProMemorial [facility] HospitalComment on above:Result Comment: METHOD TRACEABLE TO IDMS STANDARD Performed By: #### 02390-1, 304-3, CMP, CBCA #### [facility] ([id number]) [address] [place] [address] 60565AXA/1.73 sq M.predicted among non-blacks MDRD (S/P/Bld) [Vol rate/Area]85 mL/min/{1.73_m2}Normal>59ProMemorial Hermann [facility] HospitalComment on above:Result Comment: Reported eGFR is based on the CKD-EPI 2020 equation that does not use a race coefficient.Performed By: #### 80551-0, 3039-3, JUSTIN, ELKE #### [facility] ([id number]) [address] [place] [address] 87546Rdutmjx [Mass/Vol]123 mg/lLMfnm83-74GaoSzkhcoWilson Health Comment on above:Performed By: #### 38017-6, 3039-3, JUSTIN, CBCA #### [facility] ([id number]) [address] [place] [address], [place] [address]Avurmxbhc [Moles/Vol]3.9 mmol/LNormal3.5-5.0ProMemorial [facility] HospitalComment on above:Performed By: #### 35377-4, 3040-01, JUSTIN, CBCA #### [facility] ([id number]) [address] [place] [address], [place] [address]Igwzdtw [Mass/Vol]6.4 g/dLNormal6.0-8.0ProMemorial [facility] HospitalComment on above:Performed By: #### 98566-9, 3, JUSTIN, CBCA #### [facility] ([id number]) [address] [place] [address] 56297Hyoxcg [Moles/Vol]140 mmol/YNfkfdt371-132YkpUglmut [facility] HospitalComment on above:Performed By: #### 05947-5, 3039-3, CMP, CBCA #### [facility] ([id number]) [address] [place] [address], [place] [address]Ummm nitrogen [Mass/Vol]22 mg/dLNormal5-27ProMemorial [facility] HospitalComment on above:Performed By: #### 00852-5, 3039-3, CMP, CBCA #### [facility] ([id number]) [address] [place] [address] 34650GWE A1C (GLYCO-HGB)on 44-96-3500Zagoemf [Mass/Vol]117 mg/dL NormalProMemorial Hermann Sugar Land HospitalComment on above:Performed By: #### 99064-9 #### [facility] ([id number]) [address] [place] [address] 11414ToM1m (Bld) [Mass fraction]5.7 %High4.4-5.6Wilson HealthComment on above:Result Comment: NOTE ADA Guidelines Result HgbA1c Normal : less than 5.7 % Prediabetes : 5.7 % to 6.4 % Diabetes : > 6.4 % Use with caution in patients with abnormal hemoglobin variants as the half-life of red blood cells and in vivo glycation rates are affected.Performed By: #### 12070-9 #### [facility] ([id number]) [address] [place] [address] 31556Szstl 1996 panelon 07-29-8675Rdlibbmttqz [Mass/Vol]104 mg/dLLow 150-200ProMemorial [facility] HospitalComformerly [facility] on above:Performed By: #### 67289-2, 3040-3, CMP, CBCA #### [facility] ([id number]) [address] [place] [address] 04856Dwkfjbijthw in HDL [Mass/Vol]29 mg/dLLow>39ProMemorial [facility] HospitalComment on above:Result Comment: HDL <40 mg/dL - High Risk HDL > or = 40mg/dL- Desirable HDL >60 mg/dL - Negative Risk Performed By: #### 49642-5, 3040-3, CMP, CBCA #### [facility] ([id number]) [address] [place] [address] 52985Xngjhvohexj in LDL [Mass/Vol]53 mg/dLNormal<130ProMemorial [facility] HospitalComment on above:Result Comment: LDL <100 mg/dL - Desirable LDL >160 mg/dL - High Risk Performed By: #### 44892-0, 3040-3, CMP, CBCA #### [facility] ([id number]) [address] [place] [address] 83526Rhwuzsnispm in VLDL [Mass/Vol]22 mg/dLNormal0-30ProMemorial [facility] HospitalComment on above:Performed By: #### 89083-0, 3040-3, CMP, CBCA #### [facility] ([id number]) [address] [place] [address] 64027SYPZUDGZXZA:HDL3.7Dbxbnw2.0-5.0[facility] Comment on above:Performed By: #### 33931-2, 3040-3, CMP, CBCA #### [facility] ([id number]) [address] [place] [address] 43666Beeqvvcvxdqb [Mass/Vol]109 mg/tPFbqydm23-789FhvBhbrqr [facility] HospitalComment on above:Performed By: #### 68796-4, 3040-3, CMP, CBCA #### [facility] ([id number]) [address] [place] [address] 55704ZUKPYVCQAiu 18-31-4800Owrrmuwlw [Mass/Vol]1.9 mg/dLNormal 1.8-2.6ProMemorial Herm[facility] HospitalComment on above:Performed By: #### 46549-6, 3040-3, CMP, CBCA #### [facility] ([id number]) [address] [place] [address], [place] [address]PTR AND AUTO DIFFon 76-47-8770XPMTXAXV BASOPHIL0.0 X10E9/L Normal0.0-0.2PUniversity Hospitals TriPoint Medical CenterComment on above:Performed By: #### 30105-3, 304-3, CMP, CBCA #### [facility] ([id number]) [address] [place] [address] 41330LZNMGLEA NEUTROPHIL5.7 X10E9/LNormal1.5-6.6ProMemorial Herm[facility] HospitalComment on above:Performed By: #### 74055-6, 3039-3, CMP, CBCA #### [facility] ([id number]) [address] [place] [address] 22849Jzgbzricp/100 WBC (Bld)0.6 %NormalWilson Health Comment on above:Performed By: #### 32615-1, 3039-3, CMP, CBCA #### [facility] ([id number]) [address] [place] [address] 79434Stsgbwdryiw (Bld) [#/Vol]0.1 10*3/uLNormal0.0-0.4Wilson HealthComment on above:Performed By: #### 59972-2, 3039-3, CMP, CBCA #### [facility] ([id number]) [address] [place] [address] 92042Xuwfcvzattk/100 WBC (Bld)1.7 %NormalWilson Health Comment on above:Performed By: #### 77413-7, 3039-3, CMP, CBCA #### [facility] ([id number]) [address] [place] [address] 39964Ogrshpemzvz distribution width (RBC) [Ratio]13.0 %Normal 11.5-15.0Wilson HealthComment on above:Performed By: #### 19816-8, 3039-3, CMP, CBCA #### [facility] ([id number]) [address] [place] [address] 67963Qybdttfomb (Bld) [Volume fraction]42.1 %Uqmzhy60-56RgnGjoocwMemorial Hermann Sugar Land HospitalComment on above:Performed By: #### 02700-2, 3039-3, CMP, CBCA #### [facility] ([id number]) [address] [place] [address] 82901Salvadxgyr (Bld) [Mass/Vol]14.4 g/oXMlwtvv52.0-17.0ProMemorial Hermann [facility] HospitalComment on above:Performed By: #### 08068-1, 3, CMP, CBCA #### [facility] ([id number]) [address] [place] [address] 17378Ezwqfocfxwm (Bld) [#/Vol]0.7 10*3/uLLow1.0-3.5ProMedica St. [facility]'S Regional Medical CenterComment on above:Performed By: #### 30904-2, 3, CMP, CBCA #### [facility] ([id number]) [address] [place] [address] 05524Edofzjdskrs/100 WBC (Bld)9.6 %NormalProMemorial Hermann [facility] Comment on above:Performed By: #### 82955-0, 3, CMP, CBCA #### [facility] ([id number]) [address] [place] [address] 67900GZJ (RBC) [Entitic mass]30.7 jxEjyepv66-44RoyPmhyjfMemorial Hermann Sugar Land HospitalComment on above:Performed By: #### 18559-3, 3039-3, CMP, CBCA #### [facility] ([id number]) [address] [place] [address] 89329TLHL (RBC) [Mass/Vol]34.1 g/hEVovzsb35-95CtbXujovoWilson HealthComment on above:Performed By: #### 04500-0, 3040-3, CMP, CBCA #### [facility] ([id number]) [address] [place] [address] 66979PAV (RBC) [Entitic vol]90 vZVjzwub34-367IffIdscuk [facility] HospitalComment on above:Performed By: #### 19352-8, 3040-3, CMP, CBCA #### [facility] ([id number]) [address] [place] [address] 03379Vffhcdloc (Bld) [#/Vol]0.5 10*3/uLNormal0-0.9Wilson HealthComment on above:Performed By: #### 57131-1, 0-3, CMP, CBCA #### [facility] ([id number]) [address] [place] [address] 45186Snccqsnnv/100 WBC (Bld)7.0 %[facility] Comment on above:Performed By: #### 64086-4, 3040-3, CMP, CBCA #### [facility] ([id number]) [address] [place] [address] 75407Bpbrxuydkba/100 WBC (Bld)81.1 %[facility] Comment on above:Performed By: #### 85493-2, 3040-3, CMP, CBCA #### [facility] ([id number]) [address] [place] [address] 57469Ylvlbqrb mean volume (Bld) [Entitic vol]7.4 fLNormal7-12 ProMSan Clemente Hospital and Medical CenterComment on above:Performed By: #### 26784-5, 3040-3, CMP, CBCA #### [facility] ([id number]) [address] [place] [address] 78105Onekmyfut (Bld) [#/Vol]169 10*3/rODuqxld324-122MnrEwgaay [facility] HospitalComment on above:Performed By: #### 98256-6, 3040-3, CMP, CBCA #### [facility] ([id number]) [address] [place] [address] 57230BFH COUNT4.68 X10E12/LNormal4.10-5.70Pro[facility] Comment on above:Performed By: #### 67716-5, 0-3, CMP, CBCA #### [facility] ([id number]) [address] [place] [address] 50941IVL (Bld) [#/Vol]7.0 10*3/uLNormal4.0-11.0ProMemorial [facility] HospitalComment on above:Performed By: #### 19196-0, 0-3, CMP, CBCA #### [facility] ([id number]) [address] [place] [address] 90293GEFDBWPADGXFS METABOLIC PANELon 13-55-2430Kmyqkkc [Mass/Vol]3.9 g/dLNormal3.2-5.3PUniversity Hospitals TriPoint Medical CenterComment on above:Performed By: #### 43651-3, 0-3, CMP, CBCA #### [facility] ([id number]) [address] [place] [address] 23674GEH [Catalytic activity/Vol]51 U/GRbngxw24-890GgsZrhmwlMemorial Hermann Sugar Land HospitalComment on above:Performed By: #### 37798-5, 3040-3, CMP, CBCA #### [facility] ([id number]) [address] [place] [address] 35348RAX [Catalytic activity/Vol]17 U/LNormal0-40ProMemorial [facility] HospitalComment on above:Performed By: #### 29288-4, 3039-3, CMP, CBCA #### [facility] ([id number]) [address] [place] [address], [place] [address]Earvs gap [Moles/Vol]8 mmol/LNormal5-15ProMemorial [facility] HospitalComment on above:Performed By: #### 52267-9, 3039-3, CMP, CBCA #### [facility] ([id number]) [address] [place] [address], [place] [address]CPM [Catalytic activity/Vol]19 U/LNormal0-41ProMemorial [facility] HospitalComment on above:Performed By: #### 90542-4, 3039-3, CMP, CBCA #### [facility] ([id number]) [address] [place] [address], [place] [address]Ctydxgxcn [Mass/Vol]1.2 mg/dLNormal0.3-1.2PUniversity Hospitals TriPoint Medical CenterComment on above:Performed By: #### 84451-1, 3039-3, CMP, CBCA #### [facility] ([id number]) [address] [place] [address], [place] [address]Mjsmlfp [Mass/Vol]9.2 mg/dLNormal8.5-10.5PUniversity Hospitals TriPoint Medical CenterComment on above:Performed By: #### 95262-1, 3039-3, CMP, CBCA #### [facility] ([id number]) [address] [place] [address], [place] [address]Avjflpyw [Moles/Vol]107 mmol/DRkunzq17-461VlkAasvseMemorial Hermann Sugar Land HospitalComment on above:Performed By: #### 20474-0, 3039-3, CMP, CBCA #### [facility] ([id number]) [address] [place] [address], [place] [address]FO0 [Moles/Vol]24 mmol/HCczhpz75-52OgeRfyvxnUniversity Hospitals TriPoint Medical Center Comment on above:Performed By: #### 74579-0, 3, JUSTIN, CBCAbram #### [facility] ([id number]) [address] [place] [address] 77913Oscuusirbg [Mass/Vol]1.01 mg/dLNormal0.70-1.20ProMemorial Hermann [facility] HospitalComment on above:Result Comment: METHOD TRACEABLE TO IDMS STANDARD Performed By: #### 76090-6, 3040-01, ELKE ANDERSON #### [facility] ([id number]) [address] [place] [address] 66855HES/1.73 sq M.predicted among non-blacks MDRD (S/P/Bld) [Vol rate/Area]83 mL/min/{1.73_m2}Normal>59ProMemorial Hermann [facility] Land HospitalComment on above:Result Comment: Reported eGFR is based on the CKD-EPI 2020 equation that does not use a race coefficient.Performed By: #### 68290-0, 3, JUSTIN, ELKE #### [facility] ([id number]) [address] [place] [address] 37062Jxjvgag [Mass/Vol]158 mg/qNDdyb37-78WtoRbohqmWilson Health Comment on above:Performed By: #### 31610-7, 3040-01, ELKE ANDERSON #### [facility] ([id number]) [address] [place] [address] 41889Tsaiirhar [Moles/Vol]3.8 mmol/LNormal3.5-5.0ProMemorial Herm[facility] HospitalComment on above:Performed By: #### 55693-6, 3039-3, JUSTIN, CBCAbram #### [facility] ([id number]) [address] [place] [address] 04328Hukcnzn [Mass/Vol]6.8 g/dLNormal6.0-8.0ProMemorial Herm[facility] HospitalComment on above:Performed By: #### 07929-3, 304-3, CMP, CBCA #### [facility] ([id number]) [address] [place] [address] 93793Jpkulj [Moles/Vol]139 mmol/KLjwdkp821-732TecStnmlk [facility] HospitalComment on above:Performed By: #### 13099-1, 3039-3, CMP, CBCA #### [facility] ([id number]) [address] [place] [address] 42813Uqhx nitrogen [Mass/Vol]19 mg/dLNormal5-27ProMemorial [facility] HospitalComment on above:Performed By: #### 49896-8, 3040-01, CMP, CBCA #### [facility] ([id number]) [address] [place] [address] 95162Jvkyhs D-dimer DDU (PPP) [Mass/Vol]on 02-24-2025D DIMER<150 Normal<255Wilson HealthComment on above:Result Comment: Results <255 ng/mL DDU: The presence of a VTE can safely be excluded with a negative D-Dimer result and Wells score. A negative result doesn't exclude the possibility of DIC. The test be repeated along with other diagnostic tests if the patient's symptoms persist or worsen. [email or web address] By: #### 62204-6, 3, CMP, CBCA #### [facility] ([id number]) [address] [place] [address] 19902ZAGTGWWCExi 36-44-0212Yfqosebee [Mass/Vol]1.7 mg/dLLow1.8-2.6 ProMSan Clemente Hospital and Medical CenterComment on above:Performed By: #### 37903-5, 3039-3, CMP, CBCA #### [facility] ([id number]) [address] [place] [address] 12896QUAFJOX AND INRon 17-85-5482OFN Coag (PPP) [Relative time]1.1 {INR}Normal0.9-1.2PUniversity Hospitals TriPoint Medical CenterComment on above:Performed By: #### 17983-4, 3040-3, CMP, CBCA #### [facility] ([id number]) [address] [place] [address] 87610CR Coag (PPP) [Time]12.5 sNormal9.8-13.2PUniversity Hospitals TriPoint Medical CenterComment on above:Result Comment: NEW REFERENCE RANGEPerformed By: #### 67091-1, 3040-3, CMP, CBCA #### [facility] ([id number]) [address] [place] [address] 20102Pelppeny I.cardiac High sensitivity method [Mass/Vol]on HOUR TROP I, HIGH SENSITIVITY3 ng/LNormal<21ProMemorial Hermann Sugar Land HospitalComment on above:Performed By: #### 65968-6, 3040-3, CMP, CBCA #### [facility] ([id number]) [address] [place] [address] [id number] I, HIGH SENSITIVITY3 ng/LNormal<21ProMemorial Hermann [facility] HospitalComment on above:Performed By: #### 59414-2, 3040-3, CMP, CBCA #### [facility] ([id number]) [address] [place] [address] [id number] CHEST 1 VWon [id number] CHEST 1 VWXR CHEST 1 VW Clinical history: Chest pain. Comparisons: 06/15/2019 through 04/14/2023. Findings: AP portable upright chest radiograph obtained 6:06 PM. Heart size and pulmonary vasculature appear within normal limits. Lungs appear clear. No pleural effusion. No pneumothorax. IMPRESSION: No evidence for acute cardiopulmonary disease. Finalized by Rony Andrew MD on 02/24/2025 6:12 PMNormalProMemorial Hermann Sugar Land HospitalLon 02-22-2025 Specimen: [id number] Received: 02/23/25 Status: YEHUDA Louise Num: [id number] Spec Type: Surgical Subm Dr: Leila Lambert MD Tissues: A Prostate - Tur (PROSTATE LESION) Procedures: Raymond DAVILA/Radha L4 Age/ Patient Sex Location Account Attending Physician Meredith Villatoro/Leonora LABELL [id number] Leila Lambert MD SPEC NUM: [id number] RECD: 02/23/25 STATUS: YEHUDA LOUISE NUM: [id number] MICHEL: 03/27/25-[address]: Leila Lambert MD ENTERED: 02/23/25-1432 [facility] DR: Guerline Topete SPEC TYPE: Surgical DEPT: [facility] ENTERED BY: [id number] RECV BY: [id number] ORDERED: LOLA, Gross/Micro L4 ORDERED: HE, Gross/Micro L4 Pathological Diagnosis Prostate lesions, TURP: -High-grade prostatic adenocarcinoma in the majority portion of the section, showing cribriform, ductal (papillary), and sheets (small submucosal nodular sheet) pattern, consistent with Tie Siding score 4+5=9 (grade group 5) -Incidental lymphovascular [...] cassette. (1, ns, BS25- A) HAKEEM Specimen: [id number] Received: 02/23/25 Status: YEHUDA Louise Num: [id number] Spec Type: Surgical Subm Dr: Leila Lambert MD Tissues: A Prostate - Tur (PROSTATE LESION) Procedures: LOLA Gross/Micro L4 Patient: Meredith Villatoro [id number] (Continued) Specimen: [id number] Received: 02/23/25 (Continued) Signed (signature on file) Aimee Maloney MD 02/27/25 1211 Specimen: [id number] Received: 02/23/25 Status: YEHUDA Louise Num: [id number] Spec Type: Surgical Subm Dr: Leila Lambert MD Tissues: A Prostate - Tur (PROSTATE LESION) Procedures: Raymond DAVILA/Radha Grant Patient: Meredith Villatoro [id number] (Continued) Specimen: [id number] Received: 02/23/25 (Continued) Microscopic Description Microscopic examination is performed CPT Codes 03555 Specimen: [id number] Received: 02/23/25 Status: YEHUDA Louise Num: [id number] Spec Type: Surgical Subm Dr: Leila Lambert MD Tissues: A Prostate - Tur (PROSTATE LESION) Procedures: Raymond DAVILA/Rdaha L4 Patient: Meredith Villatoro [id number] (Continued) Signed (signature on file) Yuridia Maloney MD 02/27/[address] [place] [address] Physician GroupUrology Office/Clinic Noteon 02-20-2025 Urology Office/Clinic [...] E&M of Est. Patient Low 20-29 Min 55710 2. Feeling of incomplete bladder emptying (R39.14: Feeling of incomplete bladder emptying) PVR low today. Ordered: 03230 Measure Post Void residual urine and/or bladder capacity by US- non-imaging E&M of Est. Patient Low 20-29 Min 22938 Urnls Dip Stick Auto w/o Microscopy POC 61152 Orders: phenazopyridine, 200 mg = 1 tab(s), Oral, TID, PRN burning with urination, X 2 day(s), # 6 tab(s), Refills(s) 0, Pharmacy: [facility] [id number], 160, cm, 02/20/25 12:00:00 EDT, Height/Length Dosing, 104, kg, 02/20/25 12:00:00 EDT, Weight Dosing Follow-up With When Contact Information [facility] Additional Instructions: For procedure [...] Protein Urine Dipstick: Negative (02/20/25 12:14:00) Specific Edwards Urine Dipstick: >=1.030 (02/20/25 12:14:00) Urine Appearance Urine Dipstick: Clear (02/20/25 12:14:00) Urobilinogen Urine Dipstick: Normal 0.2-1 EU/dl (02/20/25 12:14:00) pH Urine Dipstick: 5.5 (02/20/25 12:14:00)[facility] Comment on above:Result Comment: Electronically Signed By: JERI MENDIETA PA-C.neema\Date and Time Signed: 02/20/2513:24 EDTMain OR Intraoperative Recordon [id number] OR Intraoperative RecordMain OR Intraoperative Record IntraOp Document Type FTURO Summary Primary Physician: Leila LAMBERT MD Finalized Date/Time: 02/06/25 13:46:29 Pt. Name: MEREDITH VILLATORO/Sex: 1960 Male Med Rec #: [id number] Physician: Leila LAMBERT MD Financial #: [id number] Pt. Type: O Room/Bed: / Admit/Disch: 02/06/25 [...] Fernando Quigley Role Performed Surgeon - Primary Team Cdl Driver - Primary Scrub - Primary Time In 02/06/25 13:30:00 02/06/25 13:30:00 02/06/25 13:30:00 Time Out 02/06/25 13:46:00 02/06/25 13:46:00 02/06/25 13:46:00 Procedure CYSTOSCOPY LOCAL(.) CYSTOSCOPY LOCAL(.) CYSTOSCOPY LOCAL(.) Comments Last Modified By: Thania OSPINA, iSa Monteiro RN, Sia Monteiro RN, Sia Minor [...] Signatures Signed By: Sia Monteiro RN 02/06/25 13:46NoChildren[facility] for RehabilitationMain OR Preoperative Recordon 30-73-0032Anxi OR Preoperative RecordMain OR Preoperative Record Holding Area Document Type FTURO Summary Primary Physician: Leila LAMBERT MD Finalized Date/Time: 02/06/25 13:25:40 Pt. Name: MEREDITH VILLATORO/Sex: 1960 Male Med Rec #: [id number] Physician: Leila LAMBERT MD Financial #: [id number] Pt. Type: O Room/Bed: / Admit/Disch: 02/06/25 [...] Complaints of Pain: No Skin Integrity Intact, [place], Warm, & Dry Vitals - EU Blood Pressure 137/68 Pulse 83 bpm Respirations 18 br/min SPO2 97 % Additional None Specimens Collected Last Modified By: Kerri Pires LPN 02/06/25 13:25:39 Finalized By: Kerri Pires LPN Document Signatures Signed By: Kerri Pires LPN 02/06/25 13:25[facility] HospitalOperative Reporton [id number] ReportOperative Report Patient: MEREDITH VILLATORO Age: 64 [...] transurethral resection of prostate tumors under anesthesia.. [facility] HospitalComment on above:Result Comment: Electronically Signed By: PETRA OVIEDO, Leila Mitchell\Date and Time Signed: 02/06/25 13:48 EDT [facility] [id number] Visit (GRAHAMA) MEREDITH VILLATORO ([id number]) 1960 M Date Time Provider Department 01/23/25 [...] ASSESSMENT/PLAN: Prostate adenocarcinoma, initial PSA 2.0, biopsy Tie Siding score 4 + 4 = 8 (grade [...] 9:41 AM Signed AUA= 20 Referring Provider: hJony LUX [[id number]] Allergies As of Date: 01/23/2025 (No Known Allergies) Date Reviewed: 01/23/2025 Reviewed by: Sharon Ocampo RN - Fully Assessed Reason for Visit: Prostate Cancer [590] Primary Visit Diagnosis:Prostate cancer (HCC) [C61] Order(s):PSA (OUTSIDE) [0457399] Order #: [id number] PROSTATE-SPECIFIC ANTIGEN DIAGNOSTIC [SQPSA] Order #: [id number] FUTURE Prescriptions as of 01/30/2025 - mirabegron [...] Service: OFFICE/OUTPATIENT ESTABLISHED LOW MDM 20 MIN [93708] Additional E/M codes: VIS (more content not included)...NormalOhiohealth Hardin Memorial HospitalAmbulatory Visit Summaryon 31-91-9953Rmdkplzukj Visit SummaryAmbulatory Visit Summary MEREDITH VILLATORO :1960 [...] AM EDT With: Where: [facility] [address] [address]- Wednesday 10:15 AM EDT With: Leila LAMBERT MD Where: [facility] [address] [place] [address]- You Need to Schedule the Following Appointments Follow Up with Leila LAMBERT MD, AP When: Where: [facility] [address] [place] [phone] Medications What How Much When Instructions New ciprofloxacin (Cipro 500 mg Tab) 1 Tablets By Mouth Every day take one tab day before procedureand one tab after procedure Pickup at [facility] [phone] Unchanged mirabegron (Myrbetriq 50 mg oral tablet, [...] physician if questions or concerns Pharmacy Information [facility] [id number]: [address] [place], [place] [phone] Allergies No Known Medication Allergies Problems Ongoing [...] urethra from working properly. (more content not included)...[facility] HospitalUrology Office/Clinic Noteon 75-75-0632Ljldodn Office/Clinic NoteUrology Office/Clinic Note Chief Complaint 3 [...] - 0.5 MRI prostate w/wo con 01/08/22 [facility] - PI-RADS 4 and 5. MRI fusion bx 02/05/22 - Tie Siding 8 (4+4), 18 cores, grade group 4. [...] Simpson, URL [facility] [address] [place] [address] [phone] Additional Instructions: sched cysto, f/u in 6 [...] cancer Prostate nodule Prostatitis (more content not included)...[facility] HospitalComment on above: Result Comment: Electronically Signed By: Leila LAMBERT MD\.br\Date and Time Signed: 01/15/25 12:27 EST\.br\Electronically Co-Signed By: Molly Murray\.br\Date and Time Co-Signed: 01/15/25 12:26 ESTCHEMISTRYOrdered By: SYSTEM SYSTEM on 10-02-3392Vyjgxajj specific Ag [Mass/Vol]0.5 ng/mLNormal0.1 - 3.5 ng/mLRemisol ChemComment on above:Interpretive Data: The concentration of PSA determined by different manufacturers can vary due to differences in assay methods and reagent specificity. Values obtained from different assay methods cannot be used interchangeably. The methodology used for this result was chemiluminescence using [employer]'s Access Hybritech PSA reagent.PSA (OUTSIDE)on 95-96-4738Wdugpwefv ClinicPSA Totalon 81-12-1529Nxhgitms specific Ag [Mass/Vol]0.5 ng/mLNormal0.1-3.5FKettering Health Greene MemorialComment on above: Result Comment: The concentration of PSA determined by different manufacturers can vary due to differences in assay methods and reagent specificity. Values obtained from different assay methods cannot be used interchangeably. The methodology used for this result was chemiluminescence using [employer]'s Access Hybritech PSA reagent.Performed By: #### [id number] ####[facility] Pkatraxhlg[address] AveNwaterbury hospital, [place] [address]DSS AND AUTO DIFFon 40-70-7413OWVRFDOW BASOPHIL0.0 X10E9/LNormal0.0-0.2PUniversity Hospitals [facility] Comment on above:Performed By: #### 45449-9, 3040-3, CMP, CBCA #### [facility] ([id number]) [address] [place] [address] 87301CXVTFMMB NEUTROPHIL3.1 X10E9/LNormal1.5-6.6Wilson HealthComment on above:Performed By: #### 18515-1, 3040-3, CMP, CBCA #### [facility] ([id number]) [address] [place] [address] 32934Igdnbzzlm/100 WBC (Bld)0.8 %NormalWilson Health Comment on above:Performed By: #### 80340-8, 3039-3, CMP, CBCA #### [facility] ([id number]) [address] [place] [address] 91567Oxnkzvhyted (Bld) [#/Vol]0.2 10*3/uLNormal0.0-0.4ProMemorial Hermann Sugar Land HospitalComment on above:Performed By: #### 14739-6, 3039-3, CMP, CBCA #### [facility] ([id number]) [address] [place] [address] 96319Lvflkfzkmze/100 WBC (Bld)4.5 %NormalProValley Regional Medical Center on above:Performed By: #### 80533-5, 3040-01, CMP, CBCA #### [facility] ([id number]) [address] [place] [address] 50990Axxmbxajgao distribution width (RBC) [Ratio]13.2 %Normal 11.5-15.0ProMemorial Hermann Sugar Land HospitalComment on above:Performed By: #### 10834-9, 3040-01, CMP, CBCA #### [facility] ([id number]) [address] [place] [address] 45187Icobdncpje (Bld) [Volume fraction]39.2 %Okovqw51-06VqbLowyloMemorial Hermann Sugar Land HospitalComment on above:Performed By: #### 51364-8, 3, CMP, CBCA #### [facility] ([id number]) [address] [place] [address] 91319Yaknjnwagh (Bld) [Mass/Vol]13.6 g/iPCghqoy00.0-17.0Wilson HealthComment on above:Performed By: #### 67636-8, 3039-3, CMP, CBCA #### [facility] ([id number]) [address] [place] [address] 56763Rtibfpbuggd (Bld) [#/Vol]0.8 10*3/uLLow1.0-3.5PUniversity Hospitals TriPoint Medical CenterComment on above:Performed By: #### 70567-6, 3039-3, CMP, CBCA #### [facility] ([id number]) [address] [place] [address] 07138Iqlejgcmwii/100 WBC (Bld)17.1 %NormalProMemorial Hermann [facility] Land Hospital Comment on above:Performed By: #### 11470-9, 3039-3, CMP, CBCA #### [facility] ([id number]) [address] [place] [address] 23234OCP (RBC) [Entitic mass]31.1 swItrivk72-46KymMtvtgjMemorial Hermann Sugar Land HospitalComment on above:Performed By: #### 75651-3, 3039-3, CMP, CBCA #### [facility] ([id number]) [address] [place] [address] 74927HQWZ (RBC) [Mass/Vol]34.6 g/fQHdsufb14-49PjzSbkdthMemorial Hermann Sugar Land HospitalComment on above:Performed By: #### 37135-7, 3, CMP, CBCA #### [facility] ([id number]) [address] [place] [address] 72094VSI (RBC) [Entitic vol]90 hVJccvwh20-047LguHwzxyp [facility]remont HospitalComment on above:Performed By: #### 99254-9, 3039-3, CMP, CBCA #### [facility] ([id number]) [address] [place] [address] 27992Rdyewiemd (Bld) [#/Vol]0.3 10*3/uLNormal0-0.9Wilson HealthComment on above:Performed By: #### 90548-0, 3039-3, CMP, CBCA #### [facility] ([id number]) [address] [place] [address] 32777Itwkapxfp/100 WBC (Bld)7.8 %[facility] Comment on above:Performed By: #### 29993-2, 3040-3, CMP, CBCA #### [facility] ([id number]) [address] [place] [address] 88844Dvbrnzexncf/100 WBC (Bld)69.8 %[facility] Comment on above:Performed By: #### 38831-4, 3040-3, CMP, CBCA #### [facility] ([id number]) [address] [place] [address] 74797Rydrhzji mean volume (Bld) [Entitic vol]7.6 fLNormal7-12 Wilson HealthComment on above:Performed By: #### 14064-4, 3040-3, CMP, CBCA #### [facility] ([id number]) [address] [place] [address] 26879Ochhabzzb (Bld) [#/Vol]176 10*3/pTKbzeqr278-754OysOzxlvvWilson HealthComment on above:Performed By: #### 80708-1, 3040-3, CMP, CBCA #### [facility] ([id number]) [address] [place] [address] 26675BBI COUNT4.36 X10E12/LNormal4.10-5.70[facility] Comment on above:Performed By: #### 20445-3, 3040-3, CMP, CBCA #### [facility] ([id number]) [address] [place] [address] 74486PSP (Bld) [#/Vol]4.4 10*3/uLNormal4.0-11.0Wilson HealthComment on above:Performed By: #### 84996-5, 3040-3, CMP, CBCA #### [facility] ([id number]) [address] [place] [address] 45545MBHJEPEXGKPCB METABOLIC PANELon 96-94-9913Qnsudrd [Mass/Vol]3.5 g/dLNormal3.2-5.3PUniversity Hospitals TriPoint Medical CenterComment on above:Performed By: #### 36857-6, 3039-3, CMP, CBCA #### [facility] ([id number]) [address] [place] [address], [place] [address]CTK [Catalytic activity/Vol]44 U/VYidkoy49-931PaaYybrefMemorial Hermann Sugar Land HospitalComment on above:Performed By: #### 38964-1, 3039-3, CMP, CBCA #### [facility] ([id number]) [address] [place] [address] 79277CSU [Catalytic activity/Vol]18 U/LNormal0-40ProMemorial Hermann [facility] HospitalComment on above:Performed By: #### 75798-9, 3039-3, CMP, CBCA #### [facility] ([id number]) [address] [place] [address], [place] [address]Sjudj gap [Moles/Vol]8 mmol/LNormal5-15ProMemorial [facility]ann [facility] HospitalComment on above:Performed By: #### 86777-1, 3039-3, CMP, CBCA #### [facility] ([id number]) [address] [place] [address] 27829HJQ [Catalytic activity/Vol]18 U/LNormal0-41ProMem[facility] HospitalComment on above:Performed By: #### 31927-3, 3039-3, CMP, CBCA #### [facility] ([id number]) [address] [place] [address] 60340Znblclkcf [Mass/Vol]0.8 mg/dLNormal0.3-1.2PUniversity Hospitals TriPoint Medical CenterComment on above:Performed By: #### 42029-1, 304-3, CMP, CBCA #### [facility] ([id number]) [address] [place] [address], [place] [address]Fgzigcr [Mass/Vol]8.7 mg/dLNormal8.5-10.5PUniversity Hospitals TriPoint Medical CenterComment on above:Performed By: #### 97020-6, 3039-3, CMP, CBCA #### [facility] ([id number]) [address] [place] [address], [place] [address]Orfsofnn [Moles/Vol]107 mmol/GApnfyn06-500OrfSpyupiWilson HealthComment on above:Performed By: #### 52204-4, 3039-3, CMP, CBCA #### [facility] ([id number]) [address] [place] [address] 57821QU8 [Moles/Vol]22 mmol/KWqdxvp37-26EtiXmnojzUniversity Hospitals TriPoint Medical Center Comment on above:Performed By: #### 58320-4, 3039-3, CMP, CBCA #### [facility] ([id number]) [address] [place] [address], [place] [address]Otyshqxvlr [Mass/Vol]1.08 mg/dLNormal0.70-1.20ProMemorial Hermann Sugar Land HospitalComment on above:Result Comment: METHOD TRACEABLE TO IDMS STANDARD Performed By: #### 35174-6, 3039-3, CMP, CBCA #### [facility] ([id number]) [address] [place] [address] 93452DAH/1.73 sq M.predicted among non-blacks MDRD (S/P/Bld) [Vol rate/Area]76 mL/min/{1.73_m2}Normal>59ProMemorial Hermann Sugar Land HospitalComment on above:Result Comment: Reported eGFR is based on the CKD-EPI 2020 equation that does not use a race coefficient.Performed By: #### 17899-6, 3040-3, CMP, CBCA #### [facility] ([id number]) [address] [place] [address], [place] [address]Vuvyekv [Mass/Vol]118 mg/wWZnpo03-85VptJnldmvWilson Health Comment on above:Performed By: #### 63180-4, 3, CMP, CBCA #### [facility] ([id number]) [address] [place] [address], [place] [address]Rdamnyula [Moles/Vol]3.7 mmol/LNormal3.5-5.0ProMemorial Hermann Sugar [facility] HospitalComment on above:Performed By: #### 83585-5, 3040-01, CMP, CBCA #### [facility] ([id number]) [address] [place] [address], [place] [address]Xcqqsms [Mass/Vol]6.3 g/dLNormal6.0-8.0ProMemorial Herm[facility] HospitalComment on above:Performed By: #### 55634-6, 3040-01, CMP, CBCA #### [facility] ([id number]) [address] [place] [address], [place] [address]Jpnfey [Moles/Vol]137 mmol/HMrwtmy685-946HhpYqdkpf [facility] HospitalComment on above:Performed By: #### 08974-3, 3040-01, CMP, CBCA #### [facility] ([id number]) [address] [place] [address] 789[address]Tfwq nitrogen [Mass/Vol]15 mg/dLNormal5-27ProMemorial [facility] HospitalComment on above:Performed By: #### 73317-5, 3, CMP, CBCA #### [facility] ([id number]) [address] [place] [address] 98228OXFQHGWNYmr 39-82-2264Fmiwrpvnf [Mass/Vol]2.2 mg/dLNormal 1.8-2.6ProMemorial Hermann [facility] HospitalComment on above:Performed By: #### 64561-2, 3040-3, CMP, CBCA #### [facility] ([id number]) [address] [place] [address] 19650CYE AND AUTO DIFFon 47-48-0870BEVGGIVR BASOPHIL0.0 X10E9/L Normal0.0-0.2ProMedica St. John'S Regional Medical CenterComment on above:Performed By: #### 83528-3, 3040-3, CMP, CBCA #### [facility] ([id number]) [address] [place] [address] 42402SKXHIRMU NEUTROPHIL4.1 X10E9/LNormal1.5-6.6Wilson HealthComment on above:Performed By: #### 21397-0, 3040-3, CMP, CBCA #### [facility] ([id number]) [address] [place] [address] 52380Maqsyfquy/100 WBC (Bld)0.8 %[facility] Comment on above:Performed By: #### 21017-6, 3040-3, CMP, CBCA #### [facility] ([id number]) [address] [place] [address] 18285Ysqegvevacd (Bld) [#/Vol]0.2 10*3/uLNormal0.0-0.4Wilson HealthComment on above:Performed By: #### 73063-5, 3040-3, CMP, CBCA #### [facility] ([id number]) [address] [place] [address] 77928Xdetmckimaf/100 WBC (Bld)3.6 %[facility] Comment on above:Performed By: #### 92322-3, 3040-3, CMP, CBCA #### [facility] ([id number]) [address] [place] [address] 93017Ncxuvqcmgrx distribution width (RBC) [Ratio]13.5 %Normal 11.5-15.0Wilson HealthComment on above:Performed By: #### 99674-3, 3, CMP, CBCA #### [facility] ([id number]) [address] [place] [address] 05239Gaeoapfgod (Bld) [Volume fraction]39.2 %Pynzcd00-46AldIdmsckMemorial Hermann Sugar Land HospitalComment on above:Performed By: #### 90358-3, 3040-01, CMP, CBCA #### [facility] ([id number]) [address] [place] [address] 09386Hryqkhacld (Bld) [Mass/Vol]13.7 g/qGAdyrxw90.0-17.0ProMemorial Hermann [facility] HospitalComment on above:Performed By: #### 07772-4, 3040-01, CMP, CBCA #### [facility] ([id number]) [address] [place] [address] 93077Xcwqaqbruuk (Bld) [#/Vol]0.6 10*3/uLLow1.0-3.5PUniversity Hospitals TriPoint Medical CenterComment on above:Performed By: #### 10202-9, 3040-01, CMP, CBCA #### [facility] ([id number]) [address] [place] [address] 48611Ceafclnvmdd/100 WBC (Bld)12.0 %NormalProMemorial Hermann [facility] Comment on above:Performed By: #### 56561-9, 3040-01, CMP, CBCA #### [facility] ([id number]) [address] [place] [address] 96259RYP (RBC) [Entitic mass]31.6 fmYpkths54-13TeuGwizumMemorial Hermann Sugar Land HospitalComment on above:Performed By: #### 73451-5, 3040-3, CMP, CBCA #### [facility] ([id number]) [address] [place] [address] 08374MFLM (RBC) [Mass/Vol]35.0 g/yJDkqpjm06-20TiaVvheleMemorial Hermann Sugar Land HospitalComment on above:Performed By: #### 65252-3, 3040-3, CMP, CBCA #### [facility] ([id number]) [address] [place] [address] 77525PRP (RBC) [Entitic vol]90 rAOebndh09-833IemXljfafWilson HealthComment on above:Performed By: #### 18095-5, 3040-3, CMP, CBCA #### [facility] ([id number]) [address] [place] [address] 55997Xwycdtxse (Bld) [#/Vol]0.4 10*3/uLNormal0-0.9Wilson HealthComment on above:Performed By: #### 21704-6, 3040-3, CMP, CBCA #### [facility] ([id number]) [address] [place] [address] 45618Mnnlbppid/100 WBC (Bld)7.6 %[facility] Comment on above:Performed By: #### 52357-8, 3040-3, CMP, CBCA #### [facility] ([id number]) [address] [place] [address] 70919Gnhnzuiempe/100 WBC (Bld)76.0 %[facility] Comment on above:Performed By: #### 76124-5, 3040-3, CMP, CBCA #### [facility] ([id number]) [address] [place] [address] 20165Yzkaxbah mean volume (Bld) [Entitic vol]7.8 fLNormal7-12 ProMSan Clemente Hospital and Medical CenterComment on above:Performed By: #### 64853-5, 3040-3, CMP, CBCA #### [facility] ([id number]) [address] [place] [address] 00438Ggicgwgxr (Bld) [#/Vol]175 10*3/yZSflans299-506GmhKeywhj [facility] HospitalComment on above:Performed By: #### 19548-9, 3039-3, CMP, CBCA #### [facility] ([id number]) [address] [place] [address] 96183JUX COUNT4.33 X10E12/LNormal4.10-5.70[facility] Comment on above:Performed By: #### 18138-6, 0-3, CMP, CBCA #### [facility] ([id number]) [address] [place] [address] 03611AWV (Bld) [#/Vol]5.3 10*3/uLNormal4.0-11.0ProMemorial Hermann [facility] HospitalComment on above:Performed By: #### 93461-8, 3039-3, CMP, CBCA #### [facility] ([id number]) [address] [place] [address] 80790BHSCGEKKACNKP METABOLIC PANELon 30-28-8793Skgufem [Mass/Vol]3.5 g/dLNormal3.2-5.3ProMedSonora Regional Medical CenterComment on above:Performed By: #### 46887-4, 3039-3, CMP, CBCA #### [facility] ([id number]) [address] [place] [address] 48170UWY [Catalytic activity/Vol]47 U/LIqxtbz67-972EuiAgbwxbMemorial Hermann Sugar Land HospitalComment on above:Performed By: #### 38216-9, 3040-3, CMP, CBCA #### [facility] ([id number]) [address] [place] [address] 63312HFC [Catalytic activity/Vol]19 U/LNormal0-40ProMemorial [facility] HospitalComment on above:Performed By: #### 34101-4, 3040-3, CMP, CBCA #### [facility] ([id number]) [address] [place] [address] 59200Fsqzn gap [Moles/Vol]7 mmol/LNormal5-15ProMemorial [facility] HospitalComment on above:Performed By: #### 55875-7, 0-3, CMP, CBCA #### [facility] ([id number]) [address] [place] [address] 16806LRT [Catalytic activity/Vol]18 U/LNormal0-41ProMemorial [facility] HospitalComment on above:Performed By: #### 83795-8, 0-3, CMP, CBCA #### [facility] ([id number]) [address] [place] [address] 03840Heyeaupqn [Mass/Vol]1.2 mg/dLNormal0.3-1.2PUniversity Hospitals TriPoint Medical CenterComment on above:Performed By: #### 77860-5, 0-3, CMP, CBCA #### [facility] ([id number]) [address] [place] [address] 80282Kvcjwfm [Mass/Vol]8.9 mg/dLNormal8.5-10.5PUniversity Hospitals TriPoint Medical CenterComment on above:Performed By: #### 89631-0, 3040-3, CMP, CBCA #### [facility] ([id number]) [address] [place] [address] 80977Xssuylot [Moles/Vol]103 mmol/EVxvoln31-492BamEdrscqMemorial Hermann Sugar Land HospitalComment on above:Performed By: #### 65206-3, 3040-3, CMP, CBCA #### [facility] ([id number]) [address] [place] [address] 93847UE1 [Moles/Vol]25 mmol/AOoqcgs35-22MmeXvjpkhUniversity Hospitals TriPoint Medical Center Comment on above:Performed By: #### 85414-6, 3039-3JUSTIN CBCA #### [facility] ([id number]) [address] [place] [address] 77028Fasockjuth [Mass/Vol]1.01 mg/dLNormal0.70-1.20ProMemorial Herm[facility] HospitalComment on above:Result Comment: METHOD TRACEABLE TO IDMS STANDARD Performed By: #### 58090-0, 3040-01, ELKE ANDERSON #### [facility] ([id number]) [address] [place] [address] 02782SWM/1.73 sq M.predicted among non-blacks MDRD (S/P/Bld) [Vol rate/Area]83 mL/min/{1.73_m2}Normal>59Pro[facility] HospitalComment on above:Result Comment: Reported eGFR is based on the CKD-EPI 2020 equation that does not use a race coefficient.Performed By: #### 76519-7, 3, ELKE ANDERSON #### [facility] ([id number]) [address] [place] [address] 84626Bfrigoc [Mass/Vol]98 mg/yEBcjzid27-10QzbTsrwifWilson Health Comment on above:Performed By: #### 95614-5, 3, ELKE ANDERSON #### [facility] ([id number]) [address] [place] [address] 94047Tlwpsxquf [Moles/Vol]3.9 mmol/LNormal3.5-5.0Wilson HealthComment on above:Performed By: #### 07567-2, 3039-3, ELKE ANDERSON #### [facility] ([id number]) [address] [place] [address] 41816Nyimnrj [Mass/Vol]6.3 g/dLNormal6.0-8.0Pro[facility] HospitalComment on above:Performed By: #### 81862-5, 3039-3, CMP, CBCA #### [facility] ([id number]) [address] [place] [address] 60964Bpmvax [Moles/Vol]135 mmol/ECpsqxt865-576GgzSzpedr Fremont HospitalComment on above:Performed By: #### 78507-2, 3039-3, CMP, CBCA #### [facility] ([id number]) [address] [place] [address] 00318Fncs nitrogen [Mass/Vol]12 mg/dLNormal5-27Pro[facility] HospitalComment on above:Performed By: #### 93444-8, 3039-3, CMP, CBCA #### [facility] ([id number]) [address] [place] [address] 52290BQVjt 39-13-0845Eeojdxgtnj (Bld) [Volume fraction]39.3 %Normal 39-49Pro[facility] HospitalComment on above:Performed By: #### 79725-7, 3, CMP, CBCA #### [facility] ([id number]) [address] [place] [address] 53867Bynjxoorll (Bld) [Mass/Vol]13.7 g/pMKuhtuh54.0-17.0Pro[facility] HospitalComment on above:Performed By: #### 99036-5, 3039-3, CMP, CBCA #### [facility] ([id number]) [address] [place] [address] 96668SPBYQEEISnh [id number] [Mass/Vol]2.1 mg/dLNormal 1.8-2.6Pro[facility] HospitalComment on above:Performed By: #### 75945-3, 3039-3, CMP, CBCA #### [facility] ([id number]) [address] [place] [address] 99037JKP AND AUTO DIFFon [id number] BASOPHIL0.0 X10E9/L Normal0.0-0.2PUniversity Hospitals TriPoint Medical CenterComment on above:Performed By: #### 72994-0, 304-3, CMP, CBCA #### [facility] ([id number]) [address] [place] [address] 10983AETAPJPG NEUTROPHIL3.7 X10E9/LNormal1.5-6.6Wilson HealthComment on above:Performed By: #### 56351-2, 3039-3, CMP, CBCA #### [facility] ([id number]) [address] [place] [address] 63862Gvvrfqjty/100 WBC (Bld)0.9 %NormalWilson Health Comment on above:Performed By: #### 73150-6, 3039-3, CMP, CBCA #### [facility] ([id number]) [address] [place] [address] 97473Efubpejylhd (Bld) [#/Vol]0.1 10*3/uLNormal0.0-0.4Wilson HealthComment on above:Performed By: #### 39720-9, 3039-3, CMP, CBCA #### [facility] ([id number]) [address] [place] [address] 71860Adidezbvgcr/100 WBC (Bld)2.9 %NormalWilson Health Comment on above:Performed By: #### 76091-7, 3039-3, CMP, CBCA #### [facility] ([id number]) [address] [place] [address] 22705Raqvdwqkuhb distribution width (RBC) [Ratio]13.5 %Normal 11.5-15.0ProMemorial Hermann [facility] HospitalComment on above:Performed By: #### 83979-7, 3039-3, CMP, CBCA #### [facility] ([id number]) [address] [place] [address] 12097Lxxxpoqduk (Bld) [Volume fraction]37.7 %Oik23-25KciEcxlprMemorial Hermann Sugar Land HospitalComment on above:Performed By: #### 25402-4, 3039-3, CMP, CBCA #### [facility] ([id number]) [address] [place] [address] 85549Xykxytxsnh (Bld) [Mass/Vol]13.1 g/aSTjtdad52.0-17.0ProMem[facility] HospitalComment on above:Performed By: #### 13939-0, 3040-01, CMP, CBCA #### [facility] ([id number]) [address] [place] [address] 44731Pcyacklxwws (Bld) [#/Vol]0.8 10*3/uLLow1.0-3.5ProMed[facility] Regional Medical CenterComment on above:Performed By: #### 47727-4, 3, CMP, CBCA #### [facility] ([id number]) [address] [place] [address] 80476Dcvizxribki/100 WBC (Bld)15.9 %NormalProMemorial Hermann [facility] Hospital Comment on above:Performed By: #### 08998-5, 3039-3, CMP, CBCA #### [facility] ([id number]) [address] [place] [address] 28837NDI (RBC) [Entitic mass]31.4 cxTnvkua74-79ZdxScejulMemorial Hermann Sugar Land HospitalComment on above:Performed By: #### 62260-0, 3039-3, CMP, CBCA #### [facility] ([id number]) [address] [place] [address] 03210LNNM (RBC) [Mass/Vol]34.7 g/dLTtbapq51-32CicYvimjsWilson HealthComment on above:Performed By: #### 83743-8, 3040-3, CMP, CBCA #### [facility] ([id number]) [address] [place] [address] 83644JUE (RBC) [Entitic vol]91 nZZnimjs78-700YplLubpyf [facility] HospitalComment on above:Performed By: #### 68909-0, 3040-3, CMP, CBCA #### [facility] ([id number]) [address] [place] [address] 38200Uxjjsbgen (Bld) [#/Vol]0.4 10*3/uLNormal0-0.9Wilson HealthComment on above:Performed By: #### 21018-5, 3040-3, CMP, CBCA #### [facility] ([id number]) [address] [place] [address] 28345Jrzufmuae/100 WBC (Bld)7.7 %[facility] Comment on above:Performed By: #### 33432-4, 3040-3, CMP, CBCA #### [facility] ([id number]) [address] [place] [address] 37927Ygzmjcknmml/100 WBC (Bld)72.6 %[facility] Comment on above:Performed By: #### 05007-3, 3040-3, CMP, CBCA #### [facility] ([id number]) [address] [place] [address] 07409Lbbwbwxc mean volume (Bld) [Entitic vol]7.8 fLNormal7-12 ProMSan Clemente Hospital and Medical CenterComment on above:Performed By: #### 06790-9, 3040-3, CMP, CBCA #### [facility] ([id number]) [address] [place] [address], [place] [address]Vjggmcptx (Bld) [#/Vol]153 10*3/pSYhqknr237-280YvpZaucnx [facility] HospitalComment on above:Performed By: #### 80198-8, 3040-3, CMP, CBCA #### [facility] ([id number]) [address] [place] [address] 68827CKI COUNT4.16 X10E12/LNormal4.10-5.70[facility] Comment on above:Performed By: #### 23415-7, 3039-3, CMP, CBCA #### [facility] ([id number]) [address] [place] [address] 27947XCK (Bld) [#/Vol]5.1 10*3/uLNormal4.0-11.0ProMem[facility] HospitalComment on above:Performed By: #### 34223-7, 3039-3, CMP, CBCA #### [facility] ([id number]) [address] [place] [address] 29606KPFONIKPNPRSN METABOLIC PANELon 73-74-4879Xwrmnal [Mass/Vol]3.5 g/dLNormal3.2-5.3PUniversity Hospitals TriPoint Medical CenterComment on above:Performed By: #### 24850-7, 0-3, CMP, CBCA #### [facility] ([id number]) [address] [place] [address] 30512YNM [Catalytic activity/Vol]45 U/LYwitfi59-628KpgJzrbuiMemorial Hermann Sugar Land HospitalComment on above:Performed By: #### 15388-6, 3040-3, CMP, CBCA #### [facility] ([id number]) [address] [place] [address] 22351NWQ [Catalytic activity/Vol]14 U/LNormal0-40ProMem[facility] HospitalComment on above:Performed By: #### 79533-2, 3039-3, CMP, CBCA #### [facility] ([id number]) [address] [place] [address], [place] [address]Xycxe gap [Moles/Vol]7 mmol/LNormal5-15Pro[facility] HospitalComment on above:Performed By: #### 45628-8, 3039-3, CMP, CBCA #### [facility] ([id number]) [address] [place] [address], [place] 67[address]OWO [Catalytic activity/Vol]17 U/LNormal0-41Pro[facility] HospitalComment on above:Performed By: #### 12814-7, 3039-3, CMP, CBCA #### [facility] ([id number]) [address] [place] [address], [place] [address]Mfdvyzsam [Mass/Vol]1.0 mg/dLNormal0.3-1.2PUniversity Hospitals TriPoint Medical CenterComment on above:Performed By: #### 13292-6, 3039-3, CMP, CBCA #### [facility] ([id number]) [address] [place] [address], [place] [address]Rxvzqtk [Mass/Vol]8.8 mg/dLNormal8.5-10.5PUniversity Hospitals TriPoint Medical CenterComment on above:Performed By: #### 35194-5, 3039-3, CMP, CBCA #### [facility] ([id number]) [address] [place] [address], [place] [address]Mokcaqie [Moles/Vol]105 mmol/RYvuruz60-327NoeNzgetuMemorial Hermann Sugar Land HospitalComment on above:Performed By: #### 69714-8, 3039-3, CMP, CBCA #### [facility] ([id number]) [address] [place] [address], [place] [address]DH4 [Moles/Vol]26 mmol/JVwpajq11-64GfuGidzaeUniversity Hospitals TriPoint Medical Center Comment on above:Performed By: #### 44508-3, 3040-01, JUSTIN, ELKE #### [facility] ([id number]) [address] [place] [address] 02860Bmihmsltli [Mass/Vol]1.08 mg/dLNormal0.70-1.20ProMem[facility] HospitalComment on above:Result Comment: METHOD TRACEABLE TO IDMS STANDARD Performed By: #### 95076-1, 3040-01, ELKE ANDERSON #### [facility] ([id number]) [address] [place] [address] 08873HZC/1.73 sq M.predicted among non-blacks MDRD (S/P/Bld) [Vol rate/Area]76 mL/min/{1.73_m2}Normal>59ProMem[facility] HospitalComment on above:Result Comment: Reported eGFR is based on the CKD-EPI 2020 equation that does not use a race coefficient.Performed By: #### 46781-5, 3040-01, ELKE ANDERSON #### [facility] ([id number]) [address] [place] [address] 57260Vvdymmz [Mass/Vol]113 mg/nZRtmr40-31CsiVbfkrsWilson Health Comment on above:Performed By: #### 32047-6, 3040-01JUSTIN CBCA #### [facility] ([id number]) [address] [place] [address] 06626Eyxtcbnsn [Moles/Vol]4.1 mmol/LNormal3.5-5.0ProMem[facility] HospitalComment on above:Performed By: #### 49803-6, 3, JUSTIN, ELKE #### [facility] ([id number]) [address] [place] [address] 83490Bdjxmbf [Mass/Vol]6.2 g/dLNormal6.0-8.0ProMem[facility] HospitalComment on above:Performed By: #### 63132-8, 3040-3, CMP, CBCA #### [facility] ([id number]) [address] [place] [address] 88753Qylqkz [Moles/Vol]138 mmol/ETcxizs758-927VvaGpknui [facility] HospitalComment on above:Performed By: #### 44388-9, 304-3, CMP, CBCA #### [facility] ([id number]) [address] [place] [address] 26556Pxvg nitrogen [Mass/Vol]15 mg/dLNormal5-27ProMem[facility] HospitalComment on above:Performed By: #### 69665-8, 3039-3, CMP, CBCA #### [facility] ([id number]) [address] [place] [address] 77839PH PANELon 60-41-8817Avsyutnqvfzljdai pathogens DNA and RNA panel MARTHA+non-probe (Stl)SPECIMEN [...] detected (qualifier value) SAPOVIRUS Not detected (qualifier value)NormalNDETProMemorial Hermann Sugar [facility] HospitalComment on above:Performed By: #### 69627-9, 3040-3, CMP, CBCA #### [facility] ([id number]) [address] [place] [address] 20131TTCmc 72-84-0945Ebspbjwjxj (Bld) [Volume fraction]39.9 %Normal 39-49[facility] HospitalComment on above:Performed By: #### 36331-6, 3039-3, CMP, CBCA #### [facility] ([id number]) [address] [place] [address] 13178Vowefyjifg (Bld) [Mass/Vol]13.8 g/gHUuhjhl80.0-17.0ProMercer County Community Hospital HospitalComment on above:Performed By: #### 13792-0, 3039-3, CMP, CBCA #### [facility] ([id number]) [address] [place] [address] 22235Ntmqncggou (Bld) [Volume fraction]39.7 %Gbumxq92-66EhbAvhffh [facility] HospitalComment on above:Performed By: #### 23032-5, 3039-3, CMP, CBCA #### [facility] ([id number]) [address] [place] [address] 64343Hsdevhfeda (Bld) [Mass/Vol]13.5 g/iKRkbipl64.0-17.0Wilson HealthComment on above:Performed By: #### 47841-5, 3039-3, CMP, CBCA #### [facility] ([id number]) [address] [place] [address] 81216Zjiwynjptu (Bld) [Volume fraction]39.8 %Ypjjzo98-46FmdQaants [facility] HospitalComment on above:Performed By: #### 61615-9, 3039-3, CMP, CBCA #### [facility] ([id number]) [address] [place] [address] 92868Zklsytqvky (Bld) [Mass/Vol]13.9 g/uIBbxyyt44.0-17.0ProMercer County Community Hospital HospitalComment on above:Performed By: #### 21746-7, 304-3, CMP, CBCA #### [facility] ([id number]) [address] [place] [address] 37574Ursyy 1996 panelon 51-86-7425Jiunngfwcqe [Mass/Vol]116 mg/dLLow 150-200Pro[facility] HospitalComment on above:Performed By: #### 25396-4, 3039-3, CMP, CBCA #### [facility] ([id number]) [address] [place] [address] 66347Rlhxcdpyixy in HDL [Mass/Vol]32 mg/dLLow>39ProMem[facility] HospitalComment on above:Result Comment: HDL <40 mg/dL - High Risk HDL > or = 40mg/dL- Desirable HDL >60 mg/dL - Negative Risk Performed By: #### 70831-5, 3039-3, CMP, CBCA #### [facility] ([id number]) [address] [place] [address] 80112Efikovgpdwo in LDL [Mass/Vol]65 mg/dLNormal<130ProMem[facility] HospitalComment on above:Result Comment: LDL <100 mg/dL - Desirable LDL >160 mg/dL - High Risk Performed By: #### 52829-5, 3040-3, CMP, CBCA #### [facility] ([id number]) [address] [place] [address] 75784Eouxidhyruh in VLDL [Mass/Vol]19 mg/dLNormal0-30ProMem[facility] HospitalComment on above:Performed By: #### 10367-9, 3040-3, CMP, CBCA #### [facility] ([id number]) [address] [place] [address], [place] [address]YKIAVFVTVNK:HDL3.1Dzuupw0.0-5.0[facility] Comment on above:Performed By: #### 16746-7, 3040-3, CMP, CBCA #### [facility] ([id number]) [address] [place] [address], [place] [address]Amgwuxumbifl [Mass/Vol]97 mg/cMRzshbg96-042MjgZrwkrb [facility] HospitalComment on above:Performed By: #### 96677-5, 3040-3, CMP, CBCA #### [facility] ([id number]) [address] [place] [address] 20333FONCITTDIwl 43-58-5177Hbsdkpdtn [Mass/Vol]2.1 mg/dLNormal 1.8-2.6ProMem[facility] HospitalComment on above:Performed By: #### 16395-6, 3040-3, CMP, CBCA #### [facility] ([id number]) [address] [place] [address], [place] [address]ALV AND AUTO DIFFon 59-37-4283RDGTDSNI BASOPHIL0.0 X10E9/L Normal0.0-0.2ProMedSonora Regional Medical CenterComment on above:Performed By: #### 3040- 3, CMP, CBCA #### [facility] ([id number]) [address] [place] [address], [place] [address]JREDZOWX NEUTROPHIL4.9 X10E9/LNormal1.5-6.6Wilson HealthComment on above:Performed By: #### 3040-3, CMP, CBCA #### [facility] ([id number]) [address] [place] [address] 88351Jlwjweuij/100 WBC (Bld)0.6 %NormalWilson Health Comment on above:Performed By: #### 3040-3, CMP, CBCA #### [facility] ([id number]) [address] [place] [address] 01051Bnyppqoslin (Bld) [#/Vol]0.1 10*3/uLNormal0.0-0.4Wilson HealthComment on above:Performed By: #### 3040-3, CMP, CBCA #### [facility] ([id number]) [address] [place] [address] 18622Gkzzihugdqz/100 WBC (Bld)2.1 %NormalWilson Health Comment on above:Performed By: #### 3040-3, CMP, CBCA #### [facility] ([id number]) [address] [place] [address] 65343Vjmizxpvzqt distribution width (RBC) [Ratio]13.7 %Normal 11.5-15.0Wilson HealthComment on above:Performed By: #### 3040-3, CMP, CBCA #### [facility] ([id number]) [address] [place] [address] 53388Xjnnhysnnk (Bld) [Volume fraction]42.1 %Usmsnr18-15ApzJkxnnqMemorial Hermann Sugar Land HospitalComment on above:Performed By: #### 3040-3, CMP, CBCA #### [facility] ([id number]) [address] [place] [address] 83038Efgqqofxwy (Bld) [Mass/Vol]14.6 g/vVLifddn98.0-17.0Wilson HealthComment on above:Performed By: #### 3040-3, CMP, CBCA #### [facility] ([id number]) [address] [place] [address] 57413Crtcdmvoefs (Bld) [#/Vol]0.7 10*3/uLLow1.0-3.5ProMed[facility]. [facility] Regional Medical CenterComment on above:Performed By: #### 3040-3, CMP, CBCA #### [facility] ([id number]) [address] [place] [address] 91409Pslhlfdtnvx/100 WBC (Bld)11.5 %[facility] Comment on above:Performed By: #### 3040-3, CMP, CBCA #### [facility] ([id number]) [address] [place] [address] 57853SYV (RBC) [Entitic mass]31.2 xjYnuhpd95-03FcbTtydpdWilson HealthComment on above:Performed By: #### 3040-3, CMP, CBCA #### [facility] ([id number]) [address] [place] [address] 20879APJU (RBC) [Mass/Vol]34.8 g/fMWpcfdh11-85DsqSgvmsqMemorial Hermann Sugar Land HospitalComment on above:Performed By: #### 3040-3, CMP, CBCA #### [facility] ([id number]) [address] [place] [address] 76755RCA (RBC) [Entitic vol]90 cVAfhlox97-125CepBnumabWilson HealthComment on above:Performed By: #### 3040-3, CMP, CBCA #### [facility] ([id number]) [address] [place] [address] 37813Glwcpazgd (Bld) [#/Vol]0.4 10*3/uLNormal0-0.9Wilson HealthComment on above:Performed By: #### 3040-3, CMP, CBCA #### [facility] ([id number]) [address] [place] [address] 25531Uyozblkhf/100 WBC (Bld)6.5 %[facility] Comment on above:Performed By: #### 3040-3, CMP, CBCA #### [facility] ([id number]) [address] [place] [address] 97323Dkydntqbtyp/100 WBC (Bld)79.3 %NormalWilson Health Comment on above:Performed By: #### 3040-3, CMP, CBCA #### [facility] ([id number]) [address] [place] [address] 07180Syqbcckj mean volume (Bld) [Entitic vol]7.9 fLNormal7-12 Wilson HealthComment on above:Performed By: #### 3040-3, CMP, CBCA #### [facility] ([id number]) [address] [place] [address] 37693Cvyahugrv (Bld) [#/Vol]184 10*3/nNRfshwu144-379XniYvxsnl [facility] HospitalComment on above:Performed By: #### 3040-3, CMP, CBCA #### [facility] ([id number]) [address] [place] [address] 16955COR COUNT4.69 X10E12/LNormal4.10-5.70[facility] Comment on above:Performed By: #### 3040-3, CMP, CBCA #### [facility] ([id number]) [address] [place] [address] 32820LPQ (Bld) [#/Vol]6.2 10*3/uLNormal4.0-11.0Wilson HealthComment on above:Performed By: #### 3040-3, CMP, CBCA #### [facility] ([id number]) [address] [place] [address] 92021UGZYIFAVYPPOM METABOLIC PANELon 21-02-2671Kvmjlis [Mass/Vol]4.2 g/dLNormal3.2-5.3PUniversity Hospitals TriPoint Medical CenterComment on above:Performed By: #### 3040-3, CMP, CBCA #### [facility] ([id number]) [address] [place] [address], [place] [address]OSP [Catalytic activity/Vol]54 U/IWngplz71-241KtyYggiawMemorial Hermann Sugar Land HospitalComment on above:Performed By: #### 3040-3, CMP, CBCA #### [facility] ([id number]) [address] [place] [address], [place] [address]UEW [Catalytic activity/Vol]19 U/LNormal0-40ProMem[facility] HospitalComment on above:Performed By: #### 3040-3, CMP, CBCA #### [facility] ([id number]) [address] [place] [address], [place] 13[address]Ilknu gap [Moles/Vol]7 mmol/LNormal5-15ProMem[facility] HospitalComment on above:Performed By: #### 3040-3, CMP, CBCA #### [facility] ([id number]) [address] [place] [address], [place] [address]LQR [Catalytic activity/Vol]20 U/LNormal0-41ProMem[facility] HospitalComment on above:Performed By: #### 3040-3, CMP, CBCA #### [facility] ([id number]) [address] [place] [address], [place] [address]Ojxxyecgs [Mass/Vol]0.6 mg/dLNormal0.3-1.2PUniversity Hospitals TriPoint Medical CenterComment on above:Performed By: #### 3040-3, CMP, CBCA #### [facility] ([id number]) [address] [place] [address], [place] 204[address]Nyxujqa [Mass/Vol]9.2 mg/dLNormal8.5-10.5PUniversity Hospitals TriPoint Medical CenterComment on above:Performed By: #### 3040-3, CMP, CBCA #### [facility] ([id number]) [address] [place] [address], [place] [address]Vbncmyvy [Moles/Vol]103 mmol/KFdwjyq73-353DqdIvjnuoWilson HealthComment on above:Performed By: #### 3040-3JUSTIN, CBCA #### [facility] ([id number]) [address] [place] [address] 15803AQ9 [Moles/Vol]25 mmol/UGeyety79-24ZzoKnkfgrUniversity Hospitals TriPoint Medical Center Comment on above:Performed By: #### 3040-3JUSTIN, CBCA #### [facility] ([id number]) [address] [place] [address], [place] [address]Jvtsrcednx [Mass/Vol]1.02 mg/dLNormal0.70-1.20Wilson HealthComment on above:Result Comment: METHOD TRACEABLE TO IDMS STANDARD Performed By: #### 3040-3JUSTIN, CBCA #### [facility] ([id number]) [address] [place] [address] 10420CBT/1.73 sq M.predicted among non-blacks MDRD (S/P/Bld) [Vol rate/Area]82 mL/min/{1.73_m2}Normal>59Wilson HealthComment on above:Result Comment: Reported eGFR is based on the CKD-EPI 2020 equation that does not use a race coefficient.Performed By: #### 3040-3JUSTIN, CBCA #### [facility] ([id number]) [address] [place] [address], [place] [address]Rxxnrub [Mass/Vol]111 mg/zYYhux09-37RuhFsqwoiWilson Health Comment on above:Performed By: #### 3040-3JUSTIN, CBCA #### [facility] ([id number]) [address] [place] [address] 97492Uryzjzjpt [Moles/Vol]3.8 mmol/LNormal3.5-5.0ProMemorial [facility] HospitalComment on above:Performed By: #### 3040-3, CMP, CBCA #### [facility] ([id number]) [address] [place] [address] 41624Xowkrwq [Mass/Vol]7.3 g/dLNormal6.0-8.0ProMemorial [facility] HospitalComment on above:Performed By: #### 3040-3, CMP, CBCA #### [facility] ([id number]) [address] [place] [address] 28825Njafex [Moles/Vol]135 mmol/IHdmzna911-904XbmWewswe [facility] HospitalComment on above:Performed By: #### 3040-3, CMP, CBCA #### [facility] ([id number]) [address] [place] [address] 36721Xmud nitrogen [Mass/Vol]17 mg/dLNormal5-27ProMemorial [facility] HospitalComment on above:Performed By: #### 3040-3, CMP, CBCA #### [facility] ([id number]) [address] [place] [address] 24472MO ABDOMEN AND PELVIS W CONTon 80-39-5599NO ABDOMEN AND PELVIS W CONTCT ABDOMEN AND [...] by Dawit Bland MD on 01/05/2025 10:36 PMNormalProMemorial Hermann [facility] Land HospitalLIPASEon 04-38-5143Mlxtwv [Catalytic activity/Vol]28 U/NYxncjg74-50 Wilson HealthComment on above:Performed By: #### 3040-3, CMP, CBCA #### [facility] ([id number]) [address] [place] [address] 04307Pumdqkw (P flora) [Moles/Vol]on 80-57-2815YXEMEHA W/REFLEX0.7 mmol/LNormal0.4-2.0Wilson HealthComment on above:Result Comment: Result did not trigger repeat Lactate, re-order if needed.Performed By: #### 96067-7, 3040-3, CMP, CBCA #### [facility] ([id number]) [address] [place] [address] 53960ILQ FECAL OCCULT BLDon 52-56-2985Twromougdu.gastrointestinal Ql (Stl)PositiveAbnormalNEGProMemorial Hermann [facility] HospitalComment on above:Performed By: #### 36655-6, 3040-3, CMP, CBCA #### [facility] ([id number]) [address] [place] [address] 07341CQB AND AUTO DIFFon 33-80-7117FADJLYFG BASOPHIL0.0 X10E9/L Normal0.0-0.2PUniversity Hospitals TriPoint Medical CenterComment on above:Performed By: #### 15257-1, 3039-3, CMP, CBCA #### [facility] ([id number]) [address] [place] [address] 35054AYFIWCJG NEUTROPHIL8.7 X10E9/LHigh1.5-6.6ProMemorial [facility] HospitalComment on above:Performed By: #### 68639-5, 3039-3, CMP, CBCA #### [facility] ([id number]) [address] [place] [address] 69541Aqpswehvb/100 WBC (Bld)0.3 %[facility] Comment on above:Performed By: #### 61493-0, 3040-01, CMP, CBCA #### [facility] ([id number]) [address] [place] [address] 49012Ckvalgjqyyf (Bld) [#/Vol]0.1 10*3/uLNormal0.0-0.4ProMemorial [facility] HospitalComment on above:Performed By: #### 24149-9, 3039-3, CMP, CBCA #### [facility] ([id number]) [address] [place] [address] 17292Fsoucfsefxp/100 WBC (Bld)0.9 %NormalWilson Health Comment on above:Performed By: #### 94444-3, 3039-3, CMP, CBCA #### [facility] ([id number]) [address] [place] [address] 24113Ycjaxhmidmz distribution width (RBC) [Ratio]13.9 %Normal 11.5-15.0Wilson HealthComment on above:Performed By: #### 28529-4, 3039-3, CMP, CBCA #### [facility] ([id number]) [address] [place] [address] 91035Qmwzxvoibt (Bld) [Volume fraction]43.3 %Nztzaj89-17NebOteqypMemorial Hermann Sugar Land HospitalComment on above:Performed By: #### 59330-3, 3040-3, CMP, CBCA #### [facility] ([id number]) [address] [place] [address] 13085Syqsrugnox (Bld) [Mass/Vol]14.8 g/eOMxjdpd63.0-17.0ProMemorial Hermann [facility] HospitalComment on above:Performed By: #### 86704-1, 3039-3, CMP, CBCA #### [facility] ([id number]) [address] [place] [address] 35488Mdwglwparhl (Bld) [#/Vol]0.8 10*3/uLLow1.0-3.5PUniversity Hospitals TriPoint Medical CenterComment on above:Performed By: #### 50674-2, 3039-3, CMP, CBCA #### [facility] ([id number]) [address] [place] [address] 30473Irajcdvvfot/100 WBC (Bld)7.8 %NormalWilson Health Comment on above:Performed By: #### 82622-9, 3039-3, CMP, CBCA #### [facility] ([id number]) [address] [place] [address] 40949TRU (RBC) [Entitic mass]30.8 btJbcors36-39VpsPpdqpgMemorial Hermann Sugar Land HospitalComment on above:Performed By: #### 83882-1, 3039-3, CMP, CBCA #### [facility] ([id number]) [address] [place] [address] 81248TVLW (RBC) [Mass/Vol]34.2 g/ySTbvaiq19-74XpgKppzviMemorial Hermann Sugar Land HospitalComment on above:Performed By: #### 19195-0, 304-3, CMP, CBCA #### [facility] ([id number]) [address] [place] [address] 81911OHD (RBC) [Entitic vol]90 kXRsnfzu14-037IbaCmivtiWilson HealthComment on above:Performed By: #### 73724-8, 304-3, CMP, CBCA #### [facility] ([id number]) [address] [place] [address] 97532Najwpqoax (Bld) [#/Vol]0.2 10*3/uLNormal0-0.9Wilson HealthComment on above:Performed By: #### 70721-3, 3039-3, CMP, CBCA #### [facility] ([id number]) [address] [place] [address] 25451Mcygjzoil/100 WBC (Bld)2.0 %NormalWilson Health Comment on above:Performed By: #### 58606-7, 3039-3, CMP, CBCA #### [facility] ([id number]) [address] [place] [address] 19305Vieqxgffybf/100 WBC (Bld)89.0 %[facility] Comment on above:Performed By: #### 98179-2, 3039-3, CMP, CBCA #### [facility] ([id number]) [address] [place] [address] 47589Kdjhofgn mean volume (Bld) [Entitic vol]7.9 fLNormal7-12 ProMedicPacifica Hospital Of The ValleyComment on above:Performed By: #### 87992-1, 3040-3, CMP, CBCA #### [facility] ([id number]) [address] [place] [address] 84602Dzlhynhrb (Bld) [#/Vol]167 10*3/qXVfjevo663-148UbuAttbnq Fremont HospitalComment on above:Performed By: #### 95783-5, 3040-3, CMP, CBCA #### [facility] ([id number]) [address] [place] [address] 90875YXJ COUNT4.82 X10E12/LNormal4.10-5.70[facility] Comment on above:Performed By: #### 40041-6, 3039-3, CMP, CBCA #### [facility] ([id number]) [address] [place] [address] 58070UGW (Bld) [#/Vol]9.7 10*3/uLNormal4.0-11.0ProMemorial [facility]ann [facility] HospitalComment on above:Performed By: #### 30725-0, 0-3, CMP, CBCA #### [facility] ([id number]) [address] [place] [address] 62529UMTQADCFPWVOT METABOLIC PANELon 68-74-0405Vkuojoc [Mass/Vol]4.0 g/dLNormal3.2-5.3PUniversity Hospitals TriPoint Medical CenterComment on above:Performed By: #### 22027-7, 0-3, CMP, CBCA #### [facility] ([id number]) [address] [place] [address] 41505VHA [Catalytic activity/Vol]57 U/QQdrewo52-943MmrBbvuqzMemorial Hermann Sugar Land HospitalComment on above:Performed By: #### 43101-7, 0-3, CMP, CBCA #### [facility] ([id number]) [address] [place] [address] 44364ELS [Catalytic activity/Vol]23 U/LNormal0-40ProMemorial Hermann [facility] Land HospitalComment on above:Performed By: #### 40893-0, 3040-3, CMP, CBCA #### [facility] ([id number]) [address] [place] [address] 73712Ksbea gap [Moles/Vol]8 mmol/LNormal5-15ProMem[facility] Herm[facility] Land HospitalComment on above:Performed By: #### 78067-1, 3039-3, CMP, CBCA #### [facility] ([id number]) [address] [place] [address] 39428QNH [Catalytic activity/Vol]24 U/LNormal0-41ProMemorial Hermann [facility] Land HospitalComment on above:Performed By: #### 28918-0, 3039-3, CMP, CBCA #### [facility] ([id number]) [address] [place] [address] 32309Etprguaec [Mass/Vol]1.0 mg/dLNormal0.3-1.2PUniversity Hospitals TriPoint Medical CenterComment on above:Performed By: #### 25385-2, 3039-3, CMP, CBCA #### [facility] ([id number]) [address] [place] [address] 60074Rlhwfcm [Mass/Vol]9.1 mg/dLNormal8.5-10.5PUniversity Hospitals TriPoint Medical CenterComment on above:Performed By: #### 64035-1, 3039-3, CMP, CBCA #### [facility] ([id number]) [address] [place] [address] 69185Njvywpsd [Moles/Vol]109 mmol/VRmkvtn27-114SmeWjyufmMemorial Hermann Sugar Land HospitalComment on above:Performed By: #### 98828-2, 3039-3, CMP, CBCA #### [facility] ([id number]) [address] [place] [address] 99049EO4 [Moles/Vol]23 mmol/KNvyecy37-16VlaGvhhqaUniversity Hospitals TriPoint Medical Center Comment on above:Performed By: #### 48165-0, 3039-3, CMP, CBCA #### [facility] ([id number]) [address] [place] [address] 17913Mwznvlythb [Mass/Vol]1.10 mg/dLNormal0.70-1.20ProMemorial Hermann [facility] HospitalComment on above:Result Comment: METHOD TRACEABLE TO IDMS STANDARD Performed By: #### 35996-9, 3039-3, ELKE ANDERSON #### [facility] ([id number]) [address] [place] [address] 05567MDY/1.73 sq M.predicted among non-blacks MDRD (S/P/Bld) [Vol rate/Area]74 mL/min/{1.73_m2}Normal>59ProMemorial Hermann [facility] Land HospitalComment on above:Result Comment: Reported eGFR is based on the CKD-EPI 2020 equation that does not use a race coefficient.Performed By: #### 32340-3, 3, JUSTIN, ELKE #### [facility] ([id number]) [address] [place] [address] 00608Vhqxrfb [Mass/Vol]131 mg/mIMysp85-72CirXmtmvdMemorial Hermann [facility] Hospital Comment on above:Performed By: #### 43920-4, 3, JUSTIN, ELKE #### [facility] ([id number]) [address] [place] [address] 90459Ioboiebxl [Moles/Vol]3.6 mmol/LNormal3.5-5.0ProMemorial Hermann [facility] HospitalComment on above:Performed By: #### 99023-3, 3039-3, JUSTIN, CBCAbram #### [facility] ([id number]) [address] [place] [address] 95209Pfqzxkk [Mass/Vol]6.7 g/dLNormal6.0-8.0ProMemorial [facility] HospitalComment on above:Performed By: #### 30585-8, 3039-3, JUSTIN, CBCA #### [facility] ([id number]) [address] [place] [address] 47514Wxrfcs [Moles/Vol]140 mmol/ZQhsjag951-548SzoTtjlir Fremont HospitalComment on above:Performed By: #### 79432-1, 3040-3, CMP, CBCA #### [facility] ([id number]) [address] [facility], [place], [place] [address]Acfz nitrogen [Mass/Vol]18 mg/dLNormal5-27ProMemorial Hermann [facility] Land HospitalComment on above:Performed By: #### 13745-2, 3040-3, CMP, CBCA #### [facility] ([id number]) [address] [facility], [place], [place] [address]BV ABDOMEN AND PELVIS W CONTon 77-06-8400XL ABDOMEN AND PELVIS W CONTCT ABDOMEN AND [...] by Rony Andrew MD on 01/02/2025 9:54 PMNormalProMemorial Hermann Sugar Land HospitalLIPASEon 80-11-7435Qrbnmm [Catalytic activity/Vol]27 U/KMasgts36-88 ProMSan Clemente Hospital and Medical CenterComment on above:Performed By: #### 78892-7, 3040-3, CMP, CBCA #### [facility] ([id number]) [address] [place] [address] 00291Xbmiwcz (P flora) [Moles/Vol]on 16-61-0952XSTUCZT W/REFLEX2.3 mmol/LHigh0.4-2.0ProMemorial Hermann [facility] HospitalComment on above:Performed By: #### 91083-2 #### [facility] ([id number]) [address] [place] [address] 29206MTOKUNSOWwg 03-95-6690Lyyvysjou [Mass/Vol]2.1 mg/dLNormal 1.8-2.6Wilson HealthComment on above:Performed By: #### 04256-3, 3040-3, CMP, CBCA #### [facility] ([id number]) [address] [place] [address] 02739GGPD/FLU A+B/RSV by NAAT/Molecularon 56-97-2879HVQE/FLU A+B/RSV by NAAT/MolecularFLU A PCR Negative (qualifier [...] specimen repeat. Fact Sheet for Healthcare Providers: https://www.fda.gov/media/176134/download Fact Sheet for Patients: https://www.fda.gov/media/274264/downloadNormalProMedica St. John'S Regional Medical CenterComment on above:Performed By: #### COVFLR #### [facility] ([id number]) [address] [place] [address], [place], [place] [address]Vlv 12-11-2024L Specimen: [id number] Received: 12/13/24 Status: YEHUDA Louise Num: [id number] Spec Type: Surgical Subm Dr: Anjana Dietz,[place], [place] Tissues: A Bone Fragments - Other than Path Fracture (OSTEOPHYTES LT ANKLE) Procedures: HE, Gross/Micro L3, Decalcification Age/ Patient Sex Location Account Attending Physician Meredith Villatoro 64/M LABEL [id number] Anjana Dietz DPM, MS SPEC NUM: [id number] RECD: 12/13/24 STATUS: YEHUDA LOUISE NUM: [id number] MICHEL: 12/11/24-1147 [facility] DR: Anjana Dietz DPM, MS ENTERED: 12/13/[address]: Dariel,Lab SPEC TYPE: Surgical DEPT: RACQUEL KEITH ENTERED BY: [id number] RECV BY: [id number] ORDERED: HE, Gross/Micro L3, Decalcification ORDERED: HE, [...] cm. The specimens are sectioned to reveal hcan-josue, firm and uniform cut surfaces. Shipping Clerk Crating sections are submitted in a single cassette after decalcification. (1, , BS25- A)HAKEEM Specimen: [id number] Received: 12/13/24 Status: YEHUDA Louise Num: [id number] Spec Type: Surgical Subm Dr: Anjana Dietz,DPM, MS Tissues: A Bone Fragments - Other than Path Fracture (OSTEOPHYTES LT ANKLE) Procedures: LOLA, Gross/Micro L3, Decalcification Patient: Meredith Villatoro [id number] (Continued) Specimen: [id number] Received: 12/13/24 (Continued) Signed (signature on file) Aimee Maloney MD 12/15/24 1714 Specimen: [id number] Received: 12/13/24 Status: YEHUDA Sharmaine Num: [id number] Spec Type: Surgical Subm Dr: Anjana Dietz,BENITO, [place] Tissues: A Bone Fragments - Other than Path Fracture (OSTEOPHYTES LT ANKLE) Procedures: LOLA, Gross/Micro L3, Decalcification Patient: Meredith Villatoro [id number] (Continued) Specimen: [id number] Received: 12/13/24 (Continued) Microscopic Description Microscopic examinations are performed supporting the above interpretation CPT Codes 13737 99760 Specimen: [id number] Received: 12/13/24 Status: YEHUDA Louise Num: [id number] Spec Type: Surgical Subm Dr: Anjana Dietz,BENITO, [place] Tissues: A Bone Fragments - Other than Path Fracture (OSTEOPHYTES LT ANKLE) Procedures: Raymond DAVILA/Radha L3, Decalcification Patient: Meredith Villatoro [id number] (Continued) Signed (signature on file) Aimee Maloney MD 12/15/[address] [place] [address] Physician GroupAmbulatory Visit Summary 10-16-2024 Ambulatory Visit [...] AM EST With: Where: [facility] [address] [address]- Wednesday 11:15 AM EST With: Leila LAMBERT MD Where: [facility] [address] [address]- You Need to Schedule the Following Appointments Follow Up with Leila LAMBERT MD, URL When: Comments: 3 mos w/ PSA and Lupron Where: [facility] [address] [place] [address]- [phone] Medications What How Much When Instructions Changed mirabegron (Myrbetriq 50 mg oral tablet, extended release) 2 Tablets By Mouth Every day Duration: 90 Days Pickup at [facility] [id number] Unchanged tamsulosin (tamsulosin 0.4 mg Cap) 1 [...] physician if questions or concerns Pharmacy Information [facility] [id number]: [address] [place], [place] [id number] [phone] Allergies No Known Medication Allergies Problems Ongoing [...] urine or semen. ? (more content not included)...[facility] HospitalUrology Office/Clinic Noteon 94-55-7093Ihdtpcv Office/Clinic NoteUrology Office/Clinic Note Chief Complaint prostate [...] - 0.6 MRI prostate w/wo con 01/08/22 [facility] - PI-RADS 4 and 5. MRI fusion bx 02/05/22 - Tie Siding 8 (4+4), 18 cores, grade group 4. NM Whole body bone scan 02/20/22 [facility] - No evidence of mets disease EBRT [...] Malignant neoplasm of prostate) See #1. Ordered: 60858 Measure Post Void residual urine and/or bladder capacity by US- non-imaging E&M of Est. Patient Moderate 30-39 Min 88640 PSA Total Urnls Dip Stick Auto w/o Microscopy POC 87512 3. Urge incontinence (N39.41: Urge incontinence) PVR [...] E&M of Est. Patient Moderate 30-39 Min 46356 4. BPH with obstruction/lower urinary tract symptoms (N40.1: Benign prostatic hyperplasia with lower urinary tract symptoms) Taking Flomax 0.4mg bid. See #3. Ordered: E&M of Est. Patient Moderate 30-39 Min 19825 5. History of prostatitis (Z87.438: Personal history of other diseases of male genital organs) Has been tx'd with Doxycycline and Methenamine in the past. [1] UA today negative for blood and infection. Ordered: E&M of Est. Patient Moderate 30-39 Min 04014 Orders: mirabegron, 100 mg = 2 tab(s), Oral, Daily, X 90 day(s), # 180 tab(s), Refills(s) 3, Pharmacy: [facility] [id number], 160, cm, 10/16/24 12:19:00 EST, Height/Length Dosing, 117, kg, 10/16/24 12:19:00 EST, Weight Dosing Follow-up With When Contact Information Leila LAMBERT MD, [facility] [address], [place] [address]- [phone] Additional Instructions: 3 mos w/ PSA and [...] urinary tract sympt (more content not included)... [facility] HospitalComment on above:Result Comment: Electronically Signed By: Leila LAMBERT MD\.br\Date and Time Signed: 10/16/24 13:03 EST\.br\Electronically Co-Signed By: Molly Murray\saji\Date and Time Co-Signed: 10/16/24 12:59 ESTCHEMISTRYOrdered By: SYSTEM SYSTEM on 78-28-4838Mjjysekk specific Ag [Mass/Vol]0.6 ng/mLNormal0.1 - 3.5 ng/mLRemisol ChemComment on above:Interpretive Data: The concentration of PSA determined by different manufacturers can vary due to differences in assay methods and reagent specificity. Values obtained from different assay methods cannot be used interchangeably. The methodology used for this result was chemiluminescence using [employer]'s Access Hybritech PSA reagent.PSA Totalon 10-03-2024 Prostate specific Ag [Mass/Vol]0.6 ng/mLNormal0.1-3.5Fisher [facility] Comment on above:Result Comment: The concentration of PSA determined by different manufacturers can vary due to differences in assay methods and reagent specificity. Values obtained from different assay methods cannot be used interchangeably. The methodology used for this result was chemiluminescence using [employer]'s Access Hybritech PSA reagent.Performed By: #### [id number] #### [facility] [address] [place] [address] 139[address]QC ANKLE LEFT WO IV CONTRASTon 54-87-3880IS ANKLE LEFT WO IV CONTRASTEXAM: MR ANKLE [...] SIGNED BY: Brendon Mayfield AvailableAmbulatory Visit Summaryon 66-29-5174Jwothqoxsv Visit Summary MEREDITH VILLATORO :1960 Visit Date:03/17/2024 [...] OVIEDO, Leila Simpson [facility]NormalHistory of prostatitis, Required & Missing, Print [...] normal prostate cells (well differentiated).\.br\ ? \.br\ Tie Siding 7: This indicates that the cancer cells look somewhat similar to normal prostate cells (moderately differentiated).\.br\ ? \.br\ Tie Siding 8, 9, or 10: This indicates that [...] cells or stops them from multiplying. ItFisher [facility] St[facility] Joseph Medical CenterCHEMISTRYOrdered By: SYSTEM SYSTEM on 00-92-9741Npwtyxcf specific Ag [Mass/Vol]0.2 ng/mLNormal0.1 - 3.5 ng/mLRemisol ChemComment on above:Interpretive Data: The concentration of PSA determined by different manufacturers can vary due to differences in assay methods and reagent specificity. Values obtained from different assay methods cannot be used interchangeably. The methodology used for this result was chemiluminescence using [employer] Access Hybritech PSA reagent.PSA Total on 51-89-7839Trrlokys specific Ag [Mass/Vol]0.2 ng/mLNormal0.1-3.5[facility] Joseph Medical CenterComment on above:Result Comment: The concentration of PSA determined by different manufacturers can vary due to differences in assay methods and reagent specificity. Values obtained from different assay methods cannot be used interchangeably. The methodology used for this result was chemiluminescence using [employer]'s Access Hybritech PSA reagent.Performed By: #### [id number] #### [facility] [address] [place] [address] 330[address]Dttaqzl Educationon 14-70-1377Fhumrrh EducationOncology Prostate Cancer The prostate is a [...] under a microscope. This is called the Tie Siding score and the total score can range from 6?10, indicating how likely it is that the cancer will spread (metastasize) to other parts of the body. The higher the score, the greater thelikelihood that the cancer will spread. ? Tie Siding 6 or lower: This indicates that the cancer cells look similar to normal prostate cells (well differentiated). ? Tie Siding 7: This indicates that the cancer cells look somewhat similar to normal prostate cells (moderately differentiated). ? Tie Siding 8, 9, or 10: This indicates that [...] not included)...NormalFisher Kingston Medical CenterUrology Office/Clinic Noteon 20-69-2535Dzpmibi Office/Clinic NoteChief Complaint 6m PSA HPI Staff [...] today's appointment. MRI prostate w/wo con 01/08/22 [facility] - PI-RADS 4 and 5. MRI fusion bx 02/05/22 - Tie Siding 8 (4+4), 18 cores, grade group 4. [...] Information PETRA OVIEDO, Leila Simpson, URL [address] [id number]- Additional Instructions: 6 mos w/ PSA Patient [...] Vaccine Date Status Comments (more content not included)...[facility] HospitalComment on above:Result Comment: Electronically Signed By: Leila LAMBERT MD\.br\Date and Time Signed: 03/17/24 12:26 EDT\.br\Electronically Co-Signed By: Lolly Reid\.br\Date and Time Co-Signed: 03/17/2412:21 EDTBasophils Auto (Bld) [#/Vol]Ordered By: Fred Kirk on 26-58-2240Htqyvelnj (Bld) [#/Vol]0.0 10*3/uL0.0-0.2FCleveland Clinic Marymount HospitalBasophils/100 WBC Auto (Bld)Ordered By: Fred Kirk on 36-76-2101Nhheciicj/100 WBC (Bld)0.8 %.[facility] OhioEosinophils Auto (Bld) [#/Vol]Ordered By: Fred Kirk on 05-18-9029Ryuyfuzhomf (Bld) [#/Vol]0.1 10*3/uL0.0-0.45Fire[facility] Regional Medical CenterEosinophils/100 WBC Auto (Bld)Ordered By: Fred Kirk on 67-53-6096Jsaccslebmm/100 WBC (Bld)1.5 %.[facility] [place] Erythrocyte distribution width Auto (RBC) [Ratio]Ordered By: Fred Kirk on 40-44-3643Lexifpytnxc distribution width (RBC) [Ratio]13.1 %12.0-14.8[facility] OhioHematocrit Auto (Bld) [Volume fraction]Ordered By: Fred Kirk on 34-40-9972Cptpmhzkko (Bld) [Volume fraction]42.5 %38.8-50.0 [facility] OhioHemoglobin [Mass/volume] in BloodOrdered By: Fred Kirk on 81-70-8861Kveylneiyc (Bld) [Mass/Vol]14.8 g/dL13.0-17.0 [facility] OhioIgA [Mass/volume] in Serum or PlasmaOrdered By: Fred Kirk on 51-37-4455WaW [Mass/Vol]205 mg/oF04-865KxlawdinqKing'S Daughters Medical Center OhioComment on above:Performed at: [facility] [place] [id number] Director: Mehran Ortega PhD, Phone: [phone] Leukocytes [#/volume] corrected for nucleated erythrocytes in Blood by Automated counOrdered By: Fred Kirk on 77-71-7057QZW corrected for nucl RBC Auto (Bld) [#/Vol]6.2 10*3/uL4.1-10.5FCleveland Clinic Marymount HospitalLymphocytes Auto (Bld) [#/Vol]Ordered By: Fred Kirk on 93-80-6579Radpvsnuaip (Bld) [#/Vol]0.7 10*3/uL1.00-4.8[facility] OhioLymphocytes/100 WBC Auto (Bld)Ordered By: Fred Kirk on 53-49-5402Dgzzbfuqtru/100 WBC (Bld)11.9 % .[facility] OhioMCH Auto (RBC) [Entitic mass]Ordered By: Fred Kirk on 41-94-0712BTQ (RBC) [Entitic mass]31.4 pg27.5-35.2FCleveland Clinic Marymount HospitalMCHC Auto (RBC) [Mass/Vol]Ordered By: Fred Kirk on 31-20-5116VDBK (RBC) [Mass/Vol]34.8 g/dL32.5-35.6FCleveland Clinic Marymount HospitalMCV Auto (RBC) [Entitic vol]Ordered By: Fred Kirk on 11-76-5666HVE (RBC) [Entitic vol]90.4 fL83.5-101[facility] OhioMonocytes Auto (Bld) [#/Vol]Ordered By: Fred Kirk on 50-35-4115Abdutxhhj (Bld) [#/Vol] 0.5 10*3/uL0.0-0.8[facility] OhioMonocytes/100 WBC Auto (Bld) Ordered By: Fred Kirk on 02-57-0639Egafbkssp/100 WBC (Bld)7.4 %.[facility] OhioNeutrophils Auto (Bld) [#/Vol]Ordered By: Fred Kirk on 96-36-6227Hsbeeipmgxr (Bld) [#/Vol]4.8 10*3/uL1.8-7.7FCleveland Clinic Marymount HospitalNeutrophils/100 WBC Auto (Bld)Ordered By: Fred Kirk on 66-94-7448Kihalqdelkw/100 WBC (Bld)78.4 %.[facility] OhioNo Panel InformationOrdered By: Fred Kirk on 69-74-3670Docmhizois IgA Antibody NegativeNegativeKing'S Daughters Medical Center OhioNucleated erythrocytes [Presence] in Blood by Automated countOrdered By: Fred Kirk on 11-30-2023 Nucleated RBC Auto Ql (Bld)0.1 /100{WBC}0-0.5FC[facility] Hospital Platelet mean volume Auto (Bld) [Entitic vol]Ordered By: Fred Kirk on 05-06-3703Lhovkjul mean volume (Bld) [Entitic vol]7.4 fL6.6-10.1FCleveland Clinic Marymount HospitalPlatelets Auto (Bld) [#/Vol]Ordered By: Fred Kirk on 68-56-5502Esibubdrd (Bld) [#/Vol]187 10*3/uK680-682UzoguaotmKing'S Daughters Medical Center OhioRBC Auto (Bld) [#/Vol]Ordered By: Fred Kirk on 96-13-9784OUH (Bld) [#/Vol]4.70 10*6/uL3.90-5.60Galion Hospitalerum gliadin peptide IgA antibody assay (units/volume)Ordered By: Fred Kirk on 11-30-2023 Gliadin peptide IgA Qn (S)5 units0-[facility] OhioComment on above:Negative 0 - 19 Weak Positive 20 - 30 Moderate to Strong Positive >30 Serum gliadin peptide IgG antibody assay (units/volume)Ordered By: Fred Kirk on 76-33-7364Fkwqgbn peptide IgG Qn (S)2 units0-[facility] OhioComment on above:Negative 0 - 19 Weak Positive 20 - 30 Moderate to Strong Positive >30Serum tissue transglutaminase (tTG) IgA antibody assay (units/volume)Ordered By: Fred Kirk on 01-31-3806hHN IgA Qn (S)<2 U/mL0-3 [facility] OhioComment on above:Negative 0 - 3 Weak Positive 4 - 10 Positive >10 Tissue Transglutaminase (tTG) has been identified as the endomysial antigen. Studies have demonstr- ated that endomysial IgA antibodies have over 99% specificity for gluten sensitive enteropathy.Serum tissue transglutaminase (tTG) IgG antibody assay (units/volume)Ordered By: Fred Kirk on 77-28-3289oWA IgG Qn (S)3 U/mL0-5FC[facility] Comment on above:Negative 0 - 5 Weak Positive 6 - 9 Positive >9Thyrotropin [Units/volume] in Serum or PlasmaOrdered By: Fred Kirk on 08-49-2486EJP Qn 2.85 m[IU]/L0.45-5.33[facility] OhioWBC Auto (Bld) [#/Vol] Ordered By: Fred Kirk on 06-71-3098ILY (Bld) [#/Vol]6.2 10*3/uL4.1-10.5 [facility] OhioCHEMISTRYOrdered By: SYSTEM SYSTEM on 42-61-1568Vbjrz gap [Moles/Vol]13 mmol/LNormal6 - 16 mEq/LFTMC RemisolCalcium [Mass/Vol]9.4 mg/dLNormal8.9 - 11.1 mg/dLFTMC RemisolChloride [Moles/Vol]99 mmol/HHax953 - 111 mmol/LFTMC RemisolCO2 [Moles/Vol]25 mmol/LImqvbf64 - 31 mmol/LFTMC RemisolCreatinine [Mass/Vol]1.1 mg/dLNormal0.5 - 1.3 mg/dLFTMC RemisolGFR/1.73 sq M.predicted among blacks MDRD (S/P/Bld) [Vol rate/Area] mL/min/1.73 w8Pvlrvf>=59mL/min/1.73 m2FTMC Chem SGFR/1.73 sq M.predicted among non-blacks MDRD (S/P/Bld) [Vol rate/Area]mL/min/1.73 j0Gevhbm>=59mL/min/1.73 m2 FT Chem SGlucose [Mass/Vol]139 mg/eGErwfio78 - 199 mg/dLFTMC RemisolPotassium [Moles/Vol]4.5 mmol/LNormal3.5 - 5.3 mmol/LFTMC RemisolSodium [Moles/Vol]132 mmol/STpe549 - 145 mmol/LFTMC RemisolUrea nitrogen [Mass/Vol]28 mg/dLHigh5 - 21 mg/dLFTMC RemisolUrea nitrogen/Creatinine [Mass ratio]26 mg/wrTfdc35 - 20FTMC RemisolHEMATOLOGYOrdered By: Supriya Sanchez on 21-98-7077Lmqcqwdorav distribution width (RBC) [Ratio]12.7 %Eicbyp96.9 - 14.2 %[facility] HemeAutoSS Hematocrit (Bld) [Volume fraction]45.6 %Eqfobp21.7 - 49.0 %[facility] HemeAutoSS Hemoglobin (Bld) [Mass/Vol]15.3 g/mPIzxzeq06.5 - 17.5 gm/dLINTEGRIS GR[facility] HemeAutoSSMCH (RBC) [Entitic mass]31.0 hiUxbeef86.0 - 34.0 pgFSELECT SPECIALTY H[facility] [place] HemeAutoSSMCHC (RBC) [Mass/Vol]33.5 g/pNJuqtqp42.4 - 36.0 gm/dLFT HemeAutoSSMCV (RBC) [Entitic vol] 92.4 kRDbebmu25.0 - 100.0 fLINTEGRIS GROVE HOSP[facility] [place] HemeAutoSSPlatelet mean volume (Bld) [Entitic vol]7.7 fLNormal6.4 - 10.8 fLINTEGRIS GROVE HOSPITAL [facility] [place] HemeAutoSSPlatelets (Bld) [#/Vol]198.0 E9/L Bhqmtb857.0 - 500.0 E9/LFSELECT SPECIALTY HOS[facility] [place] HemeAutoSSRBC (Bld) [#/Vol]4.9 E12/LNormal4.3 - 5.9 E12/LFSELECT SPECIALTY H[facility] [place] HemeAutoSSWBC corrected for nucl RBC Auto (Bld) [#/Vol]4.8 E9/LNormal 4.0 - 11.0 E9/LFSELECT [facility]TY H[facility] [place] HemeAutoSSXR PELVIS 1_2 VIEWSon 76-69-9953FD PELVIS 1_2 VIEWSEXAM: XR PELVIS 1_2 VIEWS HISTORY: Malignant tumor of prostate COMPARISON: None. TECHNIQUE: FINDINGS: A single intraoperative spot fluoroscopic image shows numerous radioactive seeds projected over region of prostate. Lower portion of a contrast-filled urinary bladder is visible without appreciable extravasation. IMPRESSION: 1. Radioactive seeding of the prostate without appreciable bladder involvement. Electronically authenticated by: KOBE DOOLEY Date: 2022-05-22 06:41[facility] W MANUAL DIFFon 65-34-4976MDVMQAJM LYMPH #NormalThe Flower HospitalComment on above:Performed By: #### AR #### [facility] [address] [place] [address] Dr. Lui MaloneyATYPICAL LYMPH %NormalThe Flower HospitalComment on above: Performed By: #### AR #### [facility] [address], [place] [address] Dr. Lui MaloneyBAND #Normal0.0-0.3The Dariel HospitalComment on above: Performed By: #### CBCNGHIA #### [facility] [address] [place] [address] [address] Lui Mitchell %Normal0-5The Flower HospitalComment on above:Performed By: #### CBCNGHIA #### [facility] [address] [place] [address] [address] Lui Beltran #0.00 103/ulNormal0.00-0.10The Ravenna HospitalComment on above:Performed By: #### CBCNGHIA #### [facility] [address] [address] [address] Lui Beltran %0.0 %Critically low0.2-2.0The Flower HospitalComment on above:Performed By: #### AR #### [facility] [address] [place] [address] Dr. Lui Ortiz #NormalThe Flower HospitalComment on above:Performed By: #### AR #### [facility] [address] [place] [address] Dr. Lui Ortiz %NormalThe Flower HospitalComment on above:Performed By: #### AR #### [facility] [address] [place] [address] Dr. Liu MaloneyCORRECTED WBCNormal4.0-11.0The Flower HospitalComment on above: Performed By: #### AR #### [facility] [address] [place] [address] Dr. Lui Jain #0.21 103/ulNormal0.00-0.70The Flower HospitalComment on above:Performed By: #### CBCNGHIA #### [facility] [address] [place] [address] Dr. Lui Jain%5.0 %Normal0.9-7.0The Flower HospitalComment on above: Performed By: #### AR #### [facility] [address] [place] [address] Dr. Lui MaloneyHCT41.6 %Critically low42.0-54.0The Flower HospitalComment on above:Performed By: #### CBCNGHIA #### [facility] [address] [address] [address] Lui MaloneyHGB14.5 g/ofOmswgr83.0-18.0The Flower HospitalComment on above: Performed By: #### CBCNGHIA #### [facility] [address] [address] [address] Lui Jama #0.63 103/ulCritically low1.20-3.80The [facility] on above:Performed By: #### CBCNGHIA #### [facility] [address] [address] [address] Lui Jama%15.0 %Critically low20.5-60.0The [facility] on above:Performed By: #### AR #### [facility] [address] [address] [address] Lui WilsonH31.1 joKaolgb01.9-34.0The [facility] HospitalComment on above: Performed By: #### AR #### [facility] [address] [address] [address] Lui WilsonHC34.9 g/woWemylj31.9-35.2The [facility] HospitalComment on above:Performed By: #### CBCNGHIA #### [facility] [address] [address] [address] Lui WilsonV89.3 eIIakzlh10.0-94.0The [facility] HospitalComment on above: Performed By: #### CBCNGHIA #### [facility] [address] [address] [address] Lui CarusoOCYTE #NormalThe [facility] HospitalComment on above: Performed By: #### CBCNGHIA #### [facility] [address] [address] [address] Lui DiorELOCYTE %NormalThe [facility] HospitalComment on above: Performed By: #### CBCNGHIA #### [facility] [address] [address] [address] Lui Burkett#0.29 103/ulCritically low0.30-0.80[facility] Comment on above:Performed By: #### AR #### [facility] [address] [address] [address] Lui Burkett%7.0 %Normal1.7-12.0The [facility] HospitalComment on above: Performed By: #### AR #### [facility] [address] [address] [address] Lui LopezV9.4 fLCritically low9.5-13.5The [facility] HospitalComment on above:Performed By: #### AR #### [facility] [address] [place] [address] Dr. Lui Encinas #NormalThe [facility] HospitalComment on above:Performed By: #### AR #### [facility] [address] [place] [address] Dr. Lui BabbOCYTE %NormalThe [facility] HospitalComment on above:Performed By: #### AR #### [facility] [address] [place] [address] Dr. Lui MaloneyNRBCNormalThSt. Anthony's HospitalComment on above:Performed By: #### AR #### [facility] [address] [place] [address] Dr. Lui MaloneyPLT155 103/wzTvjdrc325-018Urq [facility] HospitalComment on above: Performed By: #### CBCNGHIA #### [facility] [address] [place] [address] Dr. Lui MaloneyRBC4.66 106/ulCritically low4.70-6.10The [facility] HospitalComment on above:Performed By: #### AR #### [facility] [address] [place] [address] Dr. Lui MaloneyRDW13.4 %Wrttmz64.0-15.0The [facility] HospitalComment on above: Performed By: #### CBCNGHIA #### [facility] [address] [place] [address] Dr. Lui Vogel #3.07 103/ulNormal1.40-6.50The [facility] HospitalComment on above:Performed By: #### CBCMAN #### [facility] [address] [place] [address] Dr. Lui Vogel %73.0 %Khrefy37.0-75.0The [facility] HospitalComment on above: Performed By: #### CBCMAN #### [facility] [address] [place] [address] Dr. Lui MaloneyWBC4.2 103/ulNormal4.0-11.0The [facility] HospitalComment on above: Performed By: #### CBCMAN #### [facility] [address] [place] [address] Dr. Lui MaloneyPROF CHEM 8 (BAS METB)on [id number] gap [Moles/Vol]12.2 mmol/LNormalThe [facility] HospitalComment on above:Performed By: #### BMP #### [facility] [address] [place] [address] Dr. Lui MaloneyCalcium [Mass/Vol]8.9 mg/dLNormal8.5-10.1The [facility] Comment on above:Performed By: #### BMP #### [facility] [address] [place] [address] Dr. Lui MaloneyChloride [Moles/Vol]108 mmol/LCritically ufhu63-737Bkl [facility] HospitalComment on above:Performed By: #### BMP #### [facility] [address] [place] [address] Dr. Lui MaloneyCO2 [Moles/Vol]25.1 mmol/BMbknqg39.0-32.0[facility] Comment on above:Performed By: #### BMP #### [facility] [address] [place] [address] Dr. Lui MaloneyCreatinine [Mass/Vol]0.92 mg/dLNormal0.70-1.30The [facility] HospitalComment on above:Performed By: #### BMP #### [facility] [address] [address] [address] Lui RoldanGFR-AF EGYPTIAN>60Normal>=60The [facility] HospitalComment on above:Performed By: #### BMP #### [facility] [address] [address] [address] Lui RoldanGFR-NON AF EGYPTIAN>60Normal>=60The [facility] HospitalComment on above:Performed By: #### BMP #### [facility] [address] [address] [address] Lui MaloneyGlucose [Mass/Vol]128 mg/dLCritically ivnf14-358Evr [facility] HospitalComment on above:Performed By: #### BMP #### [facility] [address] [address] [address] Lui MaloneyPotassium [Moles/Vol]4.3 mmol/LNormal3.5-5.1The [facility] Comment on above:Performed By: #### BMP #### [facility] [address] [address] [address] Lui MaloneySodium [Moles/Vol]141 mmol/HEjruxl184-265Tfg [facility] Comment on above:Performed By: #### BMP #### [facility] [address] [address] [address] Lui MaloneyUrea nitrogen [Mass/Vol]11.0 mg/dLNormal7.0-18.0The [facility] HospitalComment on above:Performed By: #### BMP #### [facility] [address] [address] [address] Lui Diaz nitrogen/Creatinine [Mass ratio]12.0 mg/mgNormalThe [facility] HospitalComment on above:Performed By: #### BMP #### [facility] [address] [address] [address] Lui MaloneyPROTIMEon 10-19-0775CHF Coag (PPP) [Relative time]0.94 {INR} NormalThe [facility] HospitalComment on above:Performed By: #### PT, PTT #### [facility] [address], [place] [address] Dr. Lui ThomasKINDRED HOSPITAL PHILADELPHIASEE BELOWUniversity Hospitals Ahuja Medical CenterComment on above:Result Comment: DESIRED INR: 2.0 - 3.0 CONDITIONS NOT LISTED BELOW 2.5 - 3.5 FOR PROSTHETIC HEART VALVE REPLACEMENT 2.5 - 3.5 RECURRENT THROMBOSIS Performed By: #### PT, PTT #### [facility] [address] [address] [address] Lui MaloneyPT Coag (PPP) [Time]10.2 sNormal9.0-11.6ThSt. Anthony's Hospital Comment on above:Performed By: #### PT, PTT #### [facility] [address] [place], [place] [address] Dr. Lui HobbsTon 62-01-9306dKYF Coag (Bld) [Time]26.1 bZbpfhx02.3-36.2[facility] CenterComment on above:Performed By: #### PT, PTT #### [facility] [address] [place] [address] Dr. Lui MaloneyXR CHEST 2 Von [id number] CHEST 2 VEXAM: XR CHEST 2 V [...] Electronically authenticated by: KEVIN ESPAÑA Date: 2022-05-14 12:46[facility] W Auto Differential panel (Bld)on [id number] Immature Gran<0.03<0.10 k/uLCleveland ClinicBasophils (Bld) [#/Vol]10*3/uL<0.11 k/uL [facility] ClinicBasophils/100 WBC (Bld)0.5 %[facility] CenterDifferential cell count method Nom (Bld)AutoCleveland ClinicEosinophils (Bld) [#/Vol]0.11 10*3/uL <0.46 k/uLCleKettering Health TroyEosinophils/100 WBC (Bld)2.5 %[facility] Erythrocyte distribution width (RBC) [Ratio]12.1 %11.5 - 15.0 %[facility] Hematocrit (Bld) [Volume fraction]46.1 %39.0 - 51.0 %[facility] CenterHemoglobin (Bld) [Mass/Vol]16.2 g/dL13.0 - 17.0 g/dLSycamore Medical CenterImmature Gran %0.2 % [facility] CenterLymphocytes (Bld) [#/Vol]0.88 10*3/uLLow1.00 - 4.00 k/uL [facility] CenterLymphocytes/100 WBC (Bld)20.2 %[facility] CenterH (RBC) [Entitic mass]31.0 pg26.0 - 34.0 pgCProMedica Fostoria Community HospitalHC (RBC) [Mass/Vol]35.1 g/dL30.5 - 36.0 g/dLFirelands Regional Medical CenterV (RBC) [Entitic vol]88.3 fL80.0 - 100.0 fLClevelgood hope hospital ClinicMonocytes (Bld) [#/Vol]0.39 10*3/uL<0.87 k/uLSycamore Medical Center Monocytes/100 WBC (Bld)9.0 %[facility] Medical CenterNeutrophils (Bld) [#/Vol]2.94 10*3/uL1.45 - 7.50 k/uLSycamore Medical CenterNeutrophils/100 WBC (Bld)67.6 %[facility] CenterNucleated RBC (Bld) [#/Vol]10*3/uL<0.01 k/[facility] HospitalNucleated RBC/100 WBC (Bld) [Ratio]0.0 /100 WBCSycamore Medical CenterPlatelet mean volume (Bld) [Entitic vol]10.0 fL9.0 - 12.7 fLCpremier health miami valley hospital south ClinicPlatelets (Bld) [#/Vol]171 10*3/uL150 - 400 k/uLSycamore Medical CenterRBC (Bld) [#/Vol]5.22 10*6/uL4.20 - 6.00 m/uLSycamore Medical CenterWBC (Bld) [#/Vol]4.35 10*3/uL3.70 - 11.00 k/uLCleveland Clinic Vital Signs Date TimeVital SignValuePerforming CzvpsjflfPxtgcike06-69-3418 10:34-0400Body odncpx056 [facility] [place], [place]enrrique Cope MD Work Phone: [facility]08-21-2025 10:34-0400Body mass index (BMI) [Ratio]41.81 kg/c0DoeqatndhwxImmanuel Cope MD Work Phone: [phone]08-21-2025 10:34-0400Body eglekf827.05 kgImmanuel Cope MD Work Phone: [phone]08-21-2025 10:34-0400Diastolic blood ssapowbf26 mm[Hg]Immanuel Cope MD Work Phone: [facility]08-21-2025 10:34-0400Heart rate 54 /minImmanuel Cope MD Work Phone: [phone]08-21-2025 10:34-9624FaY1% (BldA) [Mass fraction]97 %Immanuel Cope MD Work Phone: [phone]08-21-2025 10:34-0400Systolic blood cvexxrrq042 mm[Hg]Immanuel Cope MD Work Phone: [facility]04-17-2025 13:48-0400Body vfyxmv898 cmJames Posada MD Work Phone: [facility]04-17-2025 13:48-0400Body mass index (BMI) [Ratio]38.97 kg/x2HjlgeJames Posada MD Work Phone: [facility]04-17-2025 13:48-0400Body eabunr13.79 kgJames Posada MD Work Phone: [facility]04-17-2025 13:48-0400Diastolic blood vxuumedh30 mm[Hg]James Posada MD Work Phone: [facility] Hwnnrv90-08-6398 13:48-0400Heart rate 64 /minJames Posada MD Work Phone: [facility] HospitalTeraF[facility]olog[facility] Inc[facility] Kklgil99-99-3588 13:48-3147YtH9% (BldA) [Mass fraction]96 %James Posada MD Work Phone: [facility] [employer] Gcuqvk59-39-4862 13:48-0400Systolic blood zrlzysgt710 mm[Hg]James Posada MD Work Phone: [facility] [employer] Puwybm01-47-1962 12:52-0400Body mass index (BMI) [Ratio]38.44 kg/z1IqodqFadi Avelar WARDSPERSON-DIET THERAPIST Work Phone: [facility] [employer] Hjvhyo22-96-0076 12:52-0400Body qdadygciyqh83.8 [degF]Fadi Avelar WARDSPERSON-DIET THERAPIST Work Phone: [phone] [place] [address] [employer] Artcbb49-03-0594 12:52-0400Body .43 kgFadi Avelar WARDSPERSON-DIET THERAPIST Work Phone: [facility] [employer] Ipnzrr69-86-2170 12:52-0400Diastolic blood bnylywef93 mm[Hg]Fadi Avelar WARDSPERSON-DIET THERAPIST Work Phone: [phone] [place] [address] [employer] Xvdqaj30-01-6681 12:52-0400Heart rate 71 /Theresa Avelar WARDSPERSON-DIET THERAPIST Work Phone: [phone] [place] [address] [employer] Xsvebe66-46-6082 12:52-0400 Respiratory rate20 /Theresa Avelar WARDSPERSON-DIET THERAPIST Work Phone: [phone] [employer] Xcvcak10-19-9413 12:52-5133ReA1% (BldA) [Mass fraction]98 %Fadi Avelar WARDSPERSON-DIET THERAPIST Work Phone: [facility] [employer] Opdatq35-76-3512 12:52-0400Systolic blood hjwqanjt636 mm[Hg]Fadi Avelar WARDSPERSON-DIET THERAPIST Work Phone: [facility]02-25-2025 13:59-0500Body mass index (BMI) [Ratio]38.52 kg/m2REBECCA Lux MD Work Phone: [facility]02-25-2025 13:59-0500Body temperature 97.2 [degF]REBECCA Lux MD Work Phone: [facility]02-25-2025 13:59-0500Body puklnm500.2 kgREBECCA Lux MD Work Phone: [facility]02-25-2025 13:59-0500Diastolic blood syycbkkq72 mm[Hg]REBECCA Lux MD Work Phone: [facility]02-25-2025 13:59-0500Heart rate94 /min REBECCA Lux MD Work Phone: [facility]02-25-2025 13:59-0500Respiratory rate 18 /RainerREBECCA Lux MD Work Phone: [facility]02-25-2025 13:59-1931VoR7% (BldA) [Mass fraction]97 %REBECCA Lux MD Work Phone: [facility]02-25-2025 13:59-0500Systolic blood jvpyisqq522 mm[Hg]REBECCA Lux MD Work Phone: [facility]02-18-2025 14:37-0500Body ndutnc172 cm Kerri Shah WARDSPERSON-DIET THERAPIST Work Phone: [facility]02-18-2025 14:37-0500Body mass index (BMI) [Ratio]40.21 kg/m4ZuzuvvaKerri Shah WARDSPERSON-DIET THERAPIST Work Phone: [facility]02-18-2025 14:37-0500Body wdijwu456.97 kgKerri Shah WARDSPERSON-DIET THERAPIST Work Phone: [facility]02-18-2025 14:37-0500Diastolic blood tuonykez94 mm[Hg]Kerri Shah WARDSPERSON-DIET THERAPIST Work Phone: [facility]02-18-2025 14:37-0500Heart rate 79 /minKerri Shah WARDSPERSON-DIET THERAPIST Work Phone: [facility]02-18-2025 14:37-0500Systolic blood pmjtirqm208 mm[Hg]Kerri Shah WARDSPERSON-DIET THERAPIST Work Phone: [facility]02-17-2025 11:24-0500Blood Pressure LocationPatrick LAMBERT [facility]02-17-2025 11:24-0500Body pizfkbmelxp96.6 [degF]Leila LAMBERT [facility]02-17-2025 11:24-0500Diastolic blood lcyjmpgk07 mm[Hg]Leila LAMBERT [facility]02-17-2025 11:24-0500Heart rate70 /minPatrick LAMBERT [facility]02-17-2025 11:24-0500Respiratory rate18 /minPatrick LAMBERT [facility]02-17-2025 11:24-0500Systolic blood nafijqfk025 mm[Hg]Leila LAMBERT [facility]11-18-2024 12:08-0500Blood Pressure LocationPatrick LAMBERT [facility]11-18-2024 12:08-0500Body tqtnqztpicz22.6 [degF]Leila LAMBERT [facility]11-18-2024 12:08-0500Diastolic blood kehaqwgn53 mm[Hg]Leila LAMBERT [facility]11-18-2024 12:08-0500Heart rate89 /minPatrick LAMBERT [facility]11-18-2024 12:08-0500Respiratory rate16 /minPatrick LAMBERT [facility]11-18-2024 12:08-0500Systolic blood xcdafkmx020 mm[Hg]Leila LAMBERT [facility]11-12-2024 08:59-0500Body yvawak722 cmAntbelle Reilly DPM Work Phone: [phone] [place], [place] 4402311-12-2024 08:59-0500Body mass index (BMI) [Ratio]43.4 kg/l8Vyqfqlo Rusher DPM Work Phone: [phone] [place], [place] 4402311-12-2024 08:59-0500Body ifsjzu780.13 kgeMlo Rusher DPM Work Phone: [phone] [place], [place] [address]Mvbqozaxfp31-97-5067 15:19-0400Body txpeso789 cm Kerri Benitez DPM Work Phone: [phone] [place], [place] [address]Mduangmlcu10-64-8142 15:19-0400Body mass index (BMI) [Ratio]43.4 kg/j0TfmfzjyKerri Benitez DPM Work Phone: [phone] [place], [place] [address]Jvegjfpdfl04-58-3601 15:19-0400Body yvueui170.13 kgKerri Benitez DPM Work Phone: [phone] [place], [place] 4402310-08-2024 12:35-0400Body jjqjlo913 cm [address]10-08-2024 12:35-0400Body mass index (BMI) [Ratio] 43.4 kg/m2h [address] [place], [place] 0536210-08-2024 12:35-0400Body .13 kg Pmh [address] [place], [place] 0536209-25-2024 11:38-0400Body mass index (BMI) [Ratio] 42.48 kg/g5HudiinrKerri Shah WARDSPERSON-DIET THERAPIST Work Phone: [facility]09-25-2024 11:38-0400Body ylvsrl387.77 kgKerri Shah WARDSPERSON-DIET THERAPIST Work Phone: [facility]09-25-2024 11:38-0400Diastolic blood uqfvssko21 mm[Hg]Kerri Shah WARDSPERSON-DIET THERAPIST Work Phone: [facility]09-25-2024 11:38-0400Systolic blood kfmsuxgh343 mm[Hg]Kerri Shah WARDSPERSON-DIET THERAPIST Work Phone: [facility]07-25-2024 13:48-0400Body ldgdlo212.[address] [facility]07-25-2024 13:48-0400Body mass index (BMI) [Ratio]43.3 kg/i3PgitfjoghKing'S [facility] [place]07-25-2024 13:48-0400Body lbfoyr012 [facility]04-03-2024 13:03-0400Body .[address] [facility]04-03-2024 13:03-0400Body mass index (BMI) [Ratio]43.5 kg/y4OgmexdcweKing'S [facility]aughters [facility] [place]04-03-2024 13:03-0400Body fbtojj732.58 [facility] 03-01-2024 13:03-0400Diastolic blood dlvushrj08 mm[Hg][facility] [place]04-03-2024 13:03-0400Heart rate55 /[facility] 03-01-2024 13:03-0400Systolic blood lprxjkex301 mm[Hg][facility] [place]02-07-2024 11:13-0500Diastolic blood whpbpyoq40 mm[Hg][facility] Work Phone: [phone] [place], [place] 5726502-07-2024 11:13-0500 Heart rate61 /[facility] Work Phone: [phone] [place], [place] 5726502-07-2024 11:13-0500 Respiratory rate18 /[facility] Work Phone: [phone] [place], [place] 5726502-07-2024 11:13-0500 SaO2% (BldA) [Mass fraction]94 %[place] [facility] Work Phone: [phone] [place], [place] 5726502-07-2024 11:13-0500 Systolic blood qmaridhn191 mm[Hg][place] [facility] Work Phone: [phone] [place], [place] 2971502-07-2024 10:03-0500 Body hfmezp387.02 cmErisven [facility] Work Phone: [phone] [place], [place] 2971502-07-2024 10:03-0500 Body zbhosywevdc82.7 [degF]José Miguel [facility] Work Phone: [phone]02-07-2024 10:03-0500 Body .86 kgErisven [employer] [facility] Work Phone: [phone] [place], [place] 5726502-06-2024 14:16-0500 Body fgdexeoocef18.11 [degF]REBECCA Lux MD Work Phone: [facility]02-06-2024 14:16-0500Body gkxkum689.3 kgREBECCA Lux MD Work Phone: [facility]02-06-2024 14:16-0500Diastolic blood kdryohsg18 mm[Hg]REBECCA Lux MD Work Phone: [facility]02-06-2024 14:16-0500Heart rate87 /min REBECCA Lux MD Work Phone: [facility]02-06-2024 14:16-0500Respiratory rate 18 /RainerREBECCA Lux MD Work Phone: [facility]02-06-2024 14:16-3869TqX9% (BldA) [Mass fraction]98 %REBECCA Lux MD Work Phone: [facility]02-06-2024 14:16-0500Systolic blood ypmnptxh436 mm[Hg]REBECCA Lux MD Work Phone: [facility]10-16-2023 14:58-0400Blood Pressure LocationPaHomeSav [facility]10-16-2023 14:58-0400Diastolic blood dufokkin52 mm[Hg]Leila LAMBERT [facility]10-16-2023 14:58-0400Heart rate68 /minPaHomeSav [facility]10-16-2023 14:58-0400Respiratory rate16 /minPaHomeSav [facility]10-16-2023 14:58-0400Systolic blood cbeziryw924 mm[Hg]Leila LAMBERT [facility]08-14-2023 10:28-0400Blood Pressure LocationPabounce.iok LAMBERT [facility]08-14-2023 10:28-0400Diastolic blood mqnepzkd13 mm[Hg]Leila LAMBERT [facility] [place] [address]-14-2023 10:28-0400Heart rate57 /minMatrix-Bio [facility]08-14-2023 10:28-0400Systolic blood ibrthylo038 mm[Hg]Leila LAMBERT [facility]08-08-2023 13:48-0400Body ujothheswvg37.3 [degF]REBECCA uLx MD Work Phone: [facility]08-08-2023 13:48-0400Body ungxpk758.95 kgREBECCA Lux MD Work Phone: [facility]08-08-2023 13:48-0400Diastolic blood zdjotsbo73 mm[Hg]REBECCA Lux MD Work Phone: [facility]08-08-2023 13:48-0400Heart rate64 /min REBECCA Lux MD Work Phone: [facility]08-08-2023 13:48-0400Respiratory rate 18 /RainerREBECCA Lux MD Work Phone: [facility]08-08-2023 13:48-2975BmQ0% (BldA) [Mass fraction]97 %REBECCA Lux MD Work Phone: [facility]08-08-2023 13:48-0400Systolic blood odcdlheg369 mm[Hg]REBECCA Lux MD Work Phone: [facility]06-19-2023 12:21-0400Blood Pressure LocationPatriclinda LAMBERT [facility]06-19-2023 12:21-0400Diastolic blood kykdxmal43 mm[Hg]Leila LAMBERT [facility] [place] [address]-19-2023 12:21-0400Heart rate68 /minLeila LAMBERT [facility]06-19-2023 12:21-0400Respiratory rate16 /minPaverona LAMBERT [facility]06-19-2023 12:21-0400Systolic blood irgyxsbt486 mm[Hg]Leila [facility]-07-2023 13:45-0400Body heightImad Asaad Other [employer] Other 06-07-2023 13:45-0400Body mass index (BMI) [Ratio] 42.51 kg/m2Imad Asaad Other [employer] Other 06-07-2023 13:45-0400Body fhsgju173.86 kgImad Asaad Other [employer] Other 06-07-2023 13:45-0400Diastolic blood lgokkhfm15 mm[Hg] Imad Asaad Other [employer] Other 06-07-2023 13:45-0400Systolic blood semqtehd552 mm[Hg] Imad Asaad Other [employer] Other 04-10-2023 15:05-0400Blood Pressure LocationPatrick [employer] [facility]04-10-2023 15:05-0400Diastolic blood gvkxxyni08 mm[Hg]Leila LAMBERT [facility]04-10-2023 15:05-0400Heart rate72 /minPatrick [employer] [facility]04-10-2023 15:05-0400Respiratory rate16 /minPatricFetchBack [facility]04-10-2023 15:05-0400Systolic blood dwucgwfr916 mm[Hg]Leila LAMBERT [facility]10-07-2022 11:43-0400Blood Pressure LocationLeila LAMBERT [facility]10-07-2022 11:43-0400Diastolic blood zcscezmg10 mm[Hg]Leila LAMBERT [facility]10-07-2022 11:43-0400Heart rate63 /minLeila LAMBERT [facility]10-07-2022 11:43-0400Systolic blood xoryfimm002 mm[Hg]Leila LAMBERT [facility]08-09-2022 14:32-0400Body pqahtltohwi29.91 [degF]REBECCA Lux MD Work Phone: [facility]08-09-2022 14:32-0400Body wwulre888.78 kgREBECCA Lux MD Work Phone: [facility]08-09-2022 14:32-0400Diastolic blood cdpznyqk48 mm[Hg]REBECCA Lux MD Work Phone: [facility]08-09-2022 14:32-0400Heart rate79 /min REBECCA Lux MD Work Phone: [facility]08-09-2022 14:32-0400Respiratory rate 16 /RainerREBECCA Lux MD Work Phone: [facility]08-09-2022 14:32-4188GjE1% (BldA) [Mass fraction]97 %REBECCA Lux MD Work Phone: [facility]08-09-2022 14:32-0400Systolic blood ahxdykar857 mm[Hg]REBECCA Lux MD Work Phone: [facility]07-21-2022 08:30-0400Body temperature 96.91 [degF]REBECCA Lux MD Work Phone: [facility]07-21-2022 08:30-0400Body konjgj894.51 kgRBEECCA Lux MD Work Phone: [facility]07-21-2022 08:30-0400Diastolic blood tinaihat16 mm[Hg]REBECCA Lux MD Work Phone: [facility]07-21-2022 08:30-0400Heart rate51 /min REBECCA Lux MD Work Phone: [facility]07-21-2022 08:30-0400Respiratory rate 16 /RainerREBECCA Lux MD Work Phone: [facility]07-21-2022 08:30-2890LuS3% (BldA) [Mass fraction]98 %REBECCA Lux MD Work Phone: [facility]07-21-2022 08:30-0400Systolic blood gwoumpod821 mm[Hg]REBECCA Lux MD Work Phone: [facility]07-07-2022 13:37-0400Body temperature 97.39 [degF]REBECCA Lux MD Work Phone: [facility]07-07-2022 13:37-0400Body khfcoc417.33 kgREBECCA Lux MD Work Phone: [facility]07-07-2022 13:37-0400Diastolic blood tlmaznon24 mm[Hg]REBECCA Lux MD Work Phone: [facility]07-07-2022 13:37-0400Heart rate59 /min REBECCA Lux MD Work Phone: [facility]07-07-2022 13:37-0400Respiratory rate 18 /RainerREBECCA Lux MD Work Phone: [facility]07-07-2022 13:37-7019SpD2% (BldA) [Mass fraction]97 %REBECCA Lux MD Work Phone: [facility]07-07-2022 13:37-0400Systolic blood vuainwez312 mm[Hg]REBECCA Lux MD Work Phone: [facility]05-23-2022 13:36-0400Body temperature 97.59 [degF]REBECCA Lux MD Work Phone: [facility]05-23-2022 13:36-0400Body hefcyg375.58 kgREBECCA Lux MD Work Phone: [facility]05-23-2022 13:36-0400Diastolic blood dzivswbk13 mm[Hg]REBECCA Lux MD Work Phone: [phone]05-23-2022 13:36-0400Heart rate56 /min REBECCA Lux MD Work Phone: [facility]05-23-2022 13:36-0400Respiratory rate 18 /RainerREBECCA Lux MD Work Phone: [facility]05-23-2022 13:36-9836UoZ4% (BldA) [Mass fraction]99 %REBECCA Lux MD Work Phone: [facility]05-23-2022 13:36-0400Systolic blood tskekesi873 mm[Hg]REBECCA Lux MD Work Phone: [facility]05-16-2022 13:48-0400Body temperature 96.69 [degF]Yevgeniy Son MD Work Phone: [facility]05-16-2022 13:48-0400Body pylzkv234.59 kgYevgeniy Son MD Work Phone: [facility]05-16-2022 13:48-0400Diastolic blood euhtxhro03 mm[Hg]Yevgeniy Son MD Work Phone: [facility]05-16-2022 13:48-0400Heart rate62 /min Yevgeniy Son MD Work Phone: [facility]05-16-2022 13:48-0400Respiratory rate 20 /minSashley Son MD Work Phone: [facility]05-16-2022 13:48-8669CgQ6% (BldA) [Mass fraction]97 %Yevgeniy Son MD Work Phone: [facility]05-16-2022 13:48-0400Systolic blood jksskvuv958 mm[Hg]Yevgeniy Son MD Work Phone: [facility]05-09-2022 13:32-0400Body temperature 96.69 [degF]REBECCA Lux MD Work Phone: [facility]05-09-2022 13:32-0400Body .96 kgREBECCA Lux MD Work Phone: [facility]05-09-2022 13:32-0400Diastolic blood dkqnrrku45 mm[Hg]REBECCA Lux MD Work Phone: [facility]05-09-2022 13:32-0400Heart rate63 /min REBECCA Lux MD Work Phone: [facility]05-09-2022 13:32-0400Respiratory rate 16 /RainerREBECCA Lux MD Work Phone: [facility]05-09-2022 13:32-1263EpY6% (BldA) [Mass fraction]98 %REBECCA Lux MD Work Phone: [facility]05-09-2022 13:32-0400Systolic blood oijtcbxc483 mm[Hg]REBECCA Lux MD Work Phone: [facility]05-03-2022 13:36-0400Body temperature 97.11 [degF]REBECCA Lux MD Work Phone: [facility]05-03-2022 13:36-0400Body bsfcyl540.32 kgREBECCA Lux MD Work Phone: [facility]05-03-2022 13:36-0400Diastolic blood cagnxkee54 mm[Hg]REBECCA Lux MD Work Phone: [facility]05-03-2022 13:36-0400Heart rate55 /min REBECCA Lux MD Work Phone: [facility]05-03-2022 13:36-0400Respiratory rate 16 /RainerREBECCA Lux MD Work Phone: [facility]05-03-2022 13:36-5760UiT7% (BldA) [Mass fraction]98 %REBECCA Lux MD Work Phone: [facility]05-03-2022 13:36-0400Systolic blood zjpzeovh584 mm[Hg]REBECCA Lux MD Work Phone: [facility]04-25-2022 15:33-0400Body temperature 97.2 [degF]REBECCA Lux MD Work Phone: [facility]04-25-2022 15:33-0400Body qoyreu747.59 kgREBECCA Lux MD Work Phone: [facility]04-25-2022 15:33-0400Diastolic blood omkubyfj68 mm[Hg]REBECCA Lux MD Work Phone: [facility]04-25-2022 15:33-0400Heart rate69 /min REBECCA Lux MD Work Phone: [facility]04-25-2022 15:33-0400Respiratory rate 18 /RainerREBECCA Lux MD Work Phone: [facility]04-25-2022 15:33-1709GyI6% (BldA) [Mass fraction]97 %REBECCA Lux MD Work Phone: [facility]04-25-2022 15:33-0400Systolic blood lgfdbceo931 mm[Hg]REBECCA Lux MD Work Phone: [facility]04-13-2022 12:55-0400Body .5 cmNA Angélica OVIEDO Work Phone: [facility]04-13-2022 12:55-0400Body temperature 96.69 [degF]REBECCA Lux MD Work Phone: [facility]04-13-2022 12:55-0400Body vyknvd373.86 kgNA Angélica OVIEDO Work Phone: [facility]04-13-2022 12:55-0400Diastolic blood lnlbiybm12 mm[Hg]REBECCA Lux MD Work Phone: [facility]04-13-2022 12:55-0400Heart rate61 /min REBECCA Lux MD Work Phone: [facility]04-13-2022 12:55-0400Respiratory rate 16 /RainerREBECCA Lux MD Work Phone: [facility]04-13-2022 12:55-0765FkQ7% (BldA) [Mass fraction]95 %REBECCA Lux MD Work Phone: [facility]04-13-2022 12:55-0400Systolic blood iewhpbgx130 mm[Hg]REBECCA Lux MD Work Phone: [facility] Encounters Encounter DateEncounter TypeCare ProviderFacilityStart: 12-70-7862mjaczwlsnx Leila LAMBERTFacility:[facility] RidgeevueStart: 62-67-6750shxwtusbwcMtlhfdc R WATERS Facility:EU GreentownevueStart: 10-08-2025 End: 96-24-1645czeqgmpkueZYGMUX BOWDENProMedica Fremont HospitalStart: 10-05-2025 End: 63-74-9365Czbjwcjtd encounterEhute Gross MD Work Phone: [facility], [facility] SystemComment on above:AppointmentStart: 10-03-2025 End: 94-75-1669ttiesssrpgQBOUAUGALSelect Medical Specialty Hospital [facility] Start: 09-17-2025 End: 62-78-0165enihezjpwmNjyupuu R WATERSFacility:EU ueStart: 09-17-2025 End: 70-00-4552Uwhydwo encounter procedureLeila LAMBERT [facility] start: 09-13-2025 End: 10-85-3888gbwskggsbvOukxlke R WATERSFacility:EU BellevueStart: 09-13-2025 End: 43-27-0466Wspaxnc encounter procedureLeila LAMBERT [facility] start: 08-13-2025 End: 37-63-9112ghbcarluqmEvxfzvu R WATERSFacility:EU tart: 08-13-2025 End: 41-92-2065Uzltfrf encounter procedureLeila LAMBERT [facility] start: 07-19-2025 End: 22-09-9657Lowlfw outpatient visit 25 [facility] hospitalKinjal Burton PA-C Work Phone: [facility] CardiologyComment on above: Primary hypertension (Primary Dx)Start: 07-19-2025 End: 18-99-2488jxlxeivhocQVWRFYHHOVG O NKADIProMedica Naval Medical Center San Diegotart: 07-18-2025 End: 81-62-1487Nkhafxijp encounterLisa Monica REYESProMedica Physicians Cardiology Start: 06-20-2025 End: 77-95-3891AsvoxlXrjp Tracy Wells Physicians CardiologyComment on above:Med RefillStart: 06-14-2025 End: 49-97-6061Yquvkxrvv department patient visitBlack Hills Surgery Center HospitalStart: 78-32-8746gprslazrfrVZYNVLO WATERS Facility:[facility] Hospitaltart: 04-11-2025 End: 58-00-1750Ivxnozmehr hospital visit by physicianArrival Time Radiology Work Phone: Radiology Pet CTStart: 04-10-2025 End: 81-60-9054BldmvuNdfbyesnwKaleigh Wells Physicians CardiologyComment on above:Med RefillChest PainStart: 04-10-2025 End: 93-95-3962Xazeovdhn department patient visitCOMBlanchard Valley Health System HospitalStart: 04-02-2025 End: 34-94-5467Metdknety encounterG Johan Lux MD Work Phone: Cancer Appts MCComment on above:Nm Pet RequestStart: 03-26-2025 End: 46-55-4480xfwluldlfjQhjgera R WATERSFacility:EU BellevueStart: 03-22-2025 End: 55-20-8160ExfqmtRlpkKavon Wells Physicians CardiologyComment on above:Med RefillStart: 03-15-2025 End: 67-70-7258Vcklbp outpatient visit 25 minutesJames Posada MD Work Phone: [facility] CardiologyComment on above:S/P CABG x 2 (Primary Dx); Postoperative atrial fibrillation ([facility]-HCC)Start: 03-15-2025 End: 52-67-3943yohnewigymGVATZ AdeolaSierra Kings Hospitaltart: 03-14-2025 End: 71-42-0657Vawzycted encounterJeri Bales CMAProMedica Physicians CardiologyStart: 03-14-2025 End: 09-98-1191Pebdmt follow up visit related to original Ricardo Avelar WARDSPERSON-DIET THERAPIST Work Phone: [facility] TowerComment on above:Coronary artery disease involving [place] coronary artery of [place] heart with unstable angina pectoris ([facility]-HCC) (Primary Dx) Start: 03-14-2025 End: 01-12-6967mrihbejsdpQWCHQIZFFSt. Michael's Hospital Start: 03-07-2025 End: 30-39-8936iggbmcwgcxVpgvcjx R WATERSFacility:EU [place]uskyStart: 03-05-2025 End: 15-92-7393Movgwaouz encounterAlana SmithProMedica Call CenterComment on above:orders (Contract: 121/002 [id number] TT Emerald re orders)Start: 03-05-2025 ambulatoryPaverona LAMBERTFacility:EU BellevueStart: 03-04-2025 End: 34-66-6301Wsjhwluvy encounterAlana SmithProMedica Call CenterComment on above:Hypotension (Contract: PPCRD/032 [id number] TT Emerald re Low blood pressure; Rm B673)Start: 03-03-2025 End: 94-25-5997Dymtqlpjc encounterTamika EnochProMedica Call CenterComment on above:Acute MIStart: 27-54-8669cgzzituveoMMEHKYTCJMidwest Orthopedic Specialty Hospital Ambulatory PPGStart: 36-27-5238gmdwgpbhkyUmnkdnf R WATERSFacility:EU [place] Start: 02-28-2025 End: 72-28-0566asthjkfmgwGQKKHY U [facility] HospitalStart: 02-27-2025 End: 87-96-5656Uhwumuhciz and management of inpatientROBERT D ANDERSON REGIONAL MEDICAL CENTEREPTrinity Health System [facility] HospitalStart: 25-86-9490ypsotojuncCHGLDCitizens Baptist HospitalStart: 02-24-2025 End: 00-08-6396mvibwdwvyfHYOWVXJCD HEALTH SERVICESWilson Health Start: 02-23-2025 End: 94-36-1836Afatlmnib department patient visitCOMMUNTOGUS VA MEDICAL CENTER [facility] SERVICES [facility] HospitalStart: 02-22-2025 End: 22-06-8834mzznyihnozNbudybz [facility] Work Phone: Start: 02-22-2025 End: 57-08-0123Nymwbuqy ReferredGuthrie [facility] Work Phone: [facility]-LAB Path Spec [place] HospStart: 02-22-2025 End: 62-09-0673nrspdthxasNtefdix R WATERSFacility:CD:[id number]: 02-20-2025 End: 45-46-9929apjdarpvjkJKUTUTKE E PERRYFacility:EU BellevueStart: 02-06-2025 End: 41-28-2270agxroomrmiPjimfdt R WATERSFacility:FTMCStart: 02-06-2025 End: 10-38-4195Nxgcekm encounter procedureLeila LAMBERT [facility] Start: 19-48-8730foicelehbuSRMUKOhioHealth Dublin Methodist Hospitaltart: 01-23-2025 End: 83-51-0437Meiwsm outpatient visit 15 minutesG Johan Lux MD Work Phone: Radiation OncologyComment on above:Prostate cancer (HCC) (Primary Dx)Start: 01-23-2025 End: 73-29-9625bquocnoxjmLMitch MEDINAacility:[facility] Start: 01-16-2025 End: 54-11-0382Lfyfuu outpatient visit 15 minutesKerri BAILEY Work Phone: [facility] General SurgeryComment on above: Gastroenteritis and colitis, viral (Primary Dx); Irritable bowel syndrome, unspecified typeStart: 01-16-2025 End: 02-05-6591gddhpggzacPNENJAYVirginia Mason Health System Ambulatory PPG Start: 01-15-2025 End: 66-42-7381oywugjndhqIguhwwo R WATERSFacility:EU [place]vueStart: 01-15-2025 End: 36-19-8937Jdgagbr encounter procedureLeila LAMBERT [facility] Dariel start: 01-10-2025 End: 12-16-9345Djl Drop Lissette Johnson [facility] start: 01-10-2025 End: 88-31-4692kgzeqlzrmnMhuufaz R WATERSFacility:EU [facility]tart: 01-10-2025 End: 55-06-1355Jpoqtvd encounter procedureLeila LAMBERT [facility] start: 01-05-2025 End: 05-44-5533Uoosggslj department patient visitMICHAEL P [facility] Medical Centertart: 01-05-2025 End: 77-77-2119nuhozjyasfEVHHVLGVM HEALTH SERVICESWilson Health Start: 01-02-2025 End: 37-16-4722Vuagduvye department patient visitCRITICAL ACCESS HOSPITAL SERVICES [facility] Centertart: 12-11-2024 End: 81-93-4988tyyzierrldJvfgb D [facility] Work Phone: Start: 12-11-2024 End: 76-56-0199Qtxmkurb ReferredGeisinger St. Luke'S Hospital DPM Work Phone: [facility]-LAB Path Spec [place] HospStart: 03-03-9787Ubi-patient / Non-visitPeAurora St. [facility] [place] DPM Work Phone: [facility] Out[facility] Work Phone: Start: 10-16-2024 End: 92-39-5668okwzvaccmmPgtelhp R WATERSFacility:EU [facility] HospitalueStart: 10-16-2024 End: 63-47-1463Bvxtjuz encounter procedureLeila LAMBERT [facility] start: 10-10-2024 End: 31-39-8699Olqggo flowsheetMelo Reilly DPM Work Phone: NOMS PODIATRYStart: 10-10-2024 End: 77-30-3028Demkry flowsSteven Soha Evans DPM Work Phone: NOLL PODIATRYStart: 10-10-2024 End: 83-24-1662Gzqwte outpatient visit 15 minutesMelo Reilly DPM Work Phone: noms PODIATRYComment on above:Arthritis of left ankle (Primary Dx); Other synovitis and tenosynovitis, left ankle and foot; Chronic pain of left ankleStart: 10-10-2024 End: 46-14-5149llahkunbqwTZAVUQE Soha REILLYNot AvailableStart: 10-03-2024 End: 67-60-2749gyqpdassryCkiqyed R WATERSFacility:FTMCStart: 10-03-2024 End: 16-81-1619Lgl Drop offLeila LAMBERT [facility] Start: 10-03-2024 End: 98-11-6061hkdnldypxsVkfhuol R WATERSFacility:EU BellevueStart: 10-03-2024 End: 56-28-6463Nrtmtpj encounter procedureLeila LAMBERT [facility] start: 09-26-2024 End: 75-36-7134Iquzxz outpatient visit 15 minutesKerri Benitez DPM Work Phone: noms PODIATRYComment on above:Arthritis of left ankle (Primary Dx); Other enthesopathy of left foot and ankle; Chronic pain of left ankle; Other synovitis and tenosynovitis, left ankle and footStart: 09-26-2024 End: 33-85-4040weauccvwhgKBVZEDRLucille Mujica AvailableStart: 09-26-2024 End: 59-89-6221Khghhy flowsWatson Benitez DPM Work Phone: noms PODIATRYStart: 09-26-2024 End: 94-45-8837Qvhshe Pilo Benitez DPM Work Phone: NOAZ PODIATRYStart: 09-15-2024 End: 65-15-6384Kqrwwpiyz encounterWillie Jason CMAOhioHealth O'Bleness Hospital Physicians General SurgeryStart: 09-05-2024 End: 03-16-2311zegdowmrahRes Pat Phone Call Provider [address] [place] [address] AdmitStart: 08-24-2024 End: 14-16-7733Zcsnfuuwq encounterKerri Benitez DPM Work Phone: noms PODIATRYComment on above:Advice OnlyStart: 08-23-2024 End: 18-03-7693Dxbwis outpatient new 30 minutesChi [facility] WARDSPERSON-DIET THERAPIST Work Phone: [facility] SurgeryComment on above: Diarrhea, unspecified type (Primary Dx); Fecal urgency; Personal history of prostate cancerStart: 08-23-2024 End: 73-85-9043onrvctnjptYMQEBOGVirginia Mason Health System Ambulatory PPG Start: 07-18-2024 End: 90-87-8932Cebaxf Pilo Benitez DPM Work Phone: NOMS PODIATRYStart: 07-18-2024 End: 63-80-5125Iaagdr Pilo Benitez DPM Work Phone: NOLO PODIATRYStart: 07-18-2024 End: 93-51-5078Zbiecq outpatient visit 25 minutesKerri Benitez DPM Work Phone: noms PODIATRYComment on above:Arthritis of left ankle (Primary Dx); Other enthesopathy of left foot and ankle; Chronic pain of left ankle; Other synovitis and tenosynovitis, left ankle and foot; Difficulty walkingStart: 07-18-2024 End: 70-72-5877rlnhhmfxuyHHGRRKYLucille Mujica AvailableStart: 06-23-2024 End: 08-57-6216ayrfobjdbeMKPDIHVLucille Mujica AvailableStart: 06-22-2024 End: 74-35-3898uozalbktqbSmjrewvihChildren's Hospital of [facility] Work Phone: Start: 06-22-2024 End: 41-62-7650Fvqdlot encounter procedureFirprecious Physician Group[facility] Work Phone: Start: 06-15-2024 End: 47-37-3828vltihiuzthDHATEZM W CLARKENotawana AvailableStart: 05-16-2024 End: 50-69-3702zftcwtqlztDQXUDIW W CLARKENotawana AvailableStart: 03-17-2024 End: 66-66-9071daueesqneiVjlklgs R WATERSFacility:FTMCStart: 03-17-2024 End: 33-41-8245Hsn Drop offLeila LAMBERT [facility] Start: 03-17-2024 End: 44-09-4298yxfyemnvjeXumlrja R WATERSFacility:EU BellevueStart: 03-17-2024 End: 84-42-5662Tqmymte encounter Edison LAMBERT [facility] start: 03-01-2024 End: 77-28-0141ljdmpksqvuKfksgjewlChildren's Hospital of [facility] Work Phone: Start: 03-01-2024 End: 57-32-7360Njtxifj encounter procedureJuliana Physician Group-[facility] Work Phone: Start: 38-80-0304Lmn-patient / Non-visitErie Tn Health Dept Work Phone: [facility] Work Phone: Start: 01-04-2024 End: 13-93-4910Khbadcw encounter procedureG Johan Lux MD Work Phone: Radiation OncologyComment on above:History of prostate cancer (Primary Dx); Prostate cancer (HCC)Start: 11-30-2023 End: 37-27-3559qseqtznyrcTild Tn Health Dept Work Phone: [facility] Work Phone: Start: 11-30-2023 End: 51-21-3602Wbqhcpo encounter procedureErie Coderwall [facility] Work Phone: [facility]-Lab Main [place] Work Phone: Start: 11-30-2023 End: 00-16-2898Laytwmd encounter procedureErie Coderwall [facility] Work Phone: [facility] Gastro[facility] Work Phone: Start: 09-13-2023 End: 74-71-7990Twjqbii encounter procedurePaverona LAMBERT [facility] start: 07-12-2023 End: 66-51-8964Qaxsjoq encounter procedurePaverona LAMBERT [facility] start: 07-06-2023 End: 15-34-4896Jjndfen encounter procedureG Johan Lux MD Work Phone: Radiation OncologyComment on above:Malignant neoplasm of prostate (HCC) (Primary Dx); Gynecomastia, maleStart: 05-17-2023 End: 02-25-3372Ehqnbgq encounter procedureLeila LAMBERT [facility] start: 05-12-2023 End: 52-93-0023Ujcfwyx encounter procedurePaverona LAMBERT [facility] start: 05-05-2023 End: 59-71-8738ppznwjxqfwVwmy Asaad Other [employer] Other Start: 95-26-2716Yfhcmk outpatient new 45 minutesImad AsaadFPG GastroenterologyStart: 03-08-2023 End: 56-36-6879Dasaluv encounter procedurePaverona LAMBERT [facility] start: 02-16-2023 End: 15-02-2021ryhdfiqlcqPE LEILA LAMBERT .Facility:O6Pqghc: 01-21-2023 End: 95-14-2014yhfpqvwumyFvovdamqpa Kaetzel RD Work Phone: sANDUSKYStart: 01-21-2023 End: 93-62-0033Ninwrcmax therapyJaluigi Russell RD Work Phone: Nutrition TherapyComment on above:Nutrition Telephone Start: 40-80-1350alxfklgasqFqjsonvb:39585Cxlfg: 01-20-2023 End: 36-17-6103Tualsur encounter procedureEdgar Ross [facility] Start: 09-04-2022 End: 17-75-1469Zrfbfcq encounter procedureLeila LAMBERT [facility] start: 07-15-2022 End: 24-72-1449Gawfwty encounter procedureLanayden Valverde ClemonsExec[facility] Start: 07-07-2022 End: 98-53-0076Wqwfzpr encounter procedureJhony Lux MD Work Phone: Radiation OncologyComment on above:Malignant neoplasm of prostate (HCC) (Primary Dx)Start: 06-18-2022 End: 79-19-8125Ccqetlb encounter procedureJhony Lux MD Work Phone: Radiation OncologyComment on above:Malignant neoplasm of prostate (HCC) (Primary Dx)Start: 31-92-9674Fleasqwyt Oncology NoteG Johan Lux MD Work Phone: Radiation OncologyComment on above:Simulation Note Start: 06-18-2022 End: 78-03-0589Qcaftmogsr hospital visit by physicianPet Ct Scan [facility] Work Phone: Radiology Pet CTStart: 06-04-2022 End: 56-85-2210Fvvoyum encounter procedureG Johan Lux MD Work Phone: Radiation OncologyComment on above:Malignant neoplasm of prostate (HCC) (Primary Dx)Start: 05-27-2022 End: 82-03-8812Cazmobg encounter procedureMaricruz Johnson [facility] start: 05-21-2022 End: 21-50-2523rslpfgjlylPB LEILA LAMBERT .Facility:R9Ydijy: 05-21-2022 End: 97-02-3535Xsyjbqz encounter procedureG Johan Lux MD Work Phone: Radiation OncologyComment on above:Malignant neoplasm of prostate (HCC) (Primary Dx)Start: 78-82-6716Otquqyxod for preprocedural cardiovascular examinationDR LEILABRIDGET LAMBERT .[facility] HospitalStart: 78-11-9747Gxixolbjd for preprocedural laboratory examinationDR LEILA LAMBERT . [facility] HospitalStart: 05-14-2022 End: 78-57-4071jhgnmrgngpZP LEILA LAMBERT .Facility:L2Uodqd: 05-14-2022 End: 76-89-3456Pdsfmtebw for preprocedural cardiovascular examinationDR LEILA LAMBERT .Facility:W5Qqtlb: 09-08-5801Rlzders encounter procedureG Johan Lux MD Work Phone: SANDUSKYStart: 79-92-6233Uyutjeqyt Oncology NoteG Johan Lux MD Work Phone: Radiation OncologyComment on above:Treatment Planning Start: 05-05-2022 End: 18-33-1224Izsmmwe encounter procedureJhony Lux MD Work Phone: Radiation OncologyComment on above:Malignant neoplasm of prostate (HCC) (Primary Dx)Start: 45-54-3309Tpeyvpswv Oncology NoteJhony Lux MD Work Phone: Radiation OncologyComment on above:Simulation Note Start: 71-43-5223Ncfendm encounter procedureJhony Lux MD Work Phone: SANDUSKYStart: 90-62-0028Rxwlmigom Oncology NoteG Johan Lux MD Work Phone: Radiation OncologyComment on above:Completion Note Start: 04-21-2022 End: 71-01-3831Hiqfekc encounter procedureLab/Port Radt Molly Work Phone: Radiation OncologyComment on above:Dysuria (Primary Dx)Start: 04-20-2022 End: 28-56-4207Fkjcotg encounter procedureJhony Lux MD Work Phone: Radiation OncologyComment on above:Malignant neoplasm of prostate (HCC) (Primary Dx); DysuriaStart: 25-27-3176Ikejerige encounterJhony Lux MD Work Phone: Radiation OncologyComment on above:DiarrheaStart: 04-13-2022 End: 43-62-4094Myjriht encounter procedureSashley Son MD Work Phone: Radiation OncologyComment on above:Malignant neoplasm of prostate (HCC) (Primary Dx)Start: 04-06-2022 End: 94-57-7931Wbgqrhh encounter procedureJhony Lux MD Work Phone: Radiation OncologyComment on above:Malignant neoplasm of prostate (HCC) (Primary Dx)Start: 04-02-2022 End: 23-71-2030Uzjscbp encounter procedureLab/Port Radt Molly Work Phone: Radiation OncologyComment on above:Prostate cancer (HCC)Malignant neoplasm of prostate (HCC) (Primary Dx)Start: 03-31-2022 End: 92-63-1530Gsegbhv encounter procedureG Johan Lux MD Work Phone: Radiation OncologyComment on above:Malignant neoplasm of prostate (HCC) (Primary Dx)Start: 54-93-6236Ilyocar encounter procedureCcf [facility] DepartmentStart: 03-23-2022 End: 50-06-3916Yjqgepg encounter procedureG Johan Lux MD Work Phone: Radiation OncologyComment on above:Malignant neoplasm of prostate (HCC) (Primary Dx)Start: 36-60-3831Tltknzp encounter procedureCcf [facility] DepartmentStart: 82-69-0927Tizwpztug encounterG Johan Lux MD Work Phone: Radiation OncologyComment on above:OrdersStart: 03-16-2022 End: 30-81-6316Hazuxuqgfv hospital visit by physicianJhony Lux MD Work Phone: Radiology Pet CTStart: 39-57-3671Yicmwhs encounter procedureG Johan Lux MD Work Phone: SANDUSKYStart: 80-60-0551Ngkbryghl Oncology NoteG Johan Lux MD Work Phone: Radiation OncologyComment on above:Simulation Note Treatment PlanningStart: 07-08-6055wsozjfmctcFbagyd Weyer RNRadiation Oncology Comment on above:Patient EducationStart: 03-11-2022 End: 96-90-5968Xxdhpaq encounter procedureG Johan Lux MD Work Phone: Radiation OncologyComment on above:Prostate cancer (HCC) (Primary Dx) Procedures DateProcedureProcedure DetailPerforming ClinicianStart: 44-60-2934Bqqzmq-up visitFollow-upMANEL BOUMEGOUASStart: 08-66-2309Nonhh depression screening assessmentTamescalero service unit Enthe medical centerStart: 14-57-4880Gslnz 1996 panel - Serum or PlasmaArrival Radiology Work Phone: Start: 97-49-0959Kvplkzmqbnjib prostatectomyPatrick LAMBERT Start: 04-90-8697SzqurxqzvuPxglkut LAMBERT Start: 55-00-1049OVM screeningCcf ProviderStart: 79-79-3339Jjhta 1995 panel - Serum or PlasmaREBECCA Lux MD Work Phone: Start: 62-00-9815CgqcgcciveuKxnroy Venia CMAStart: 12-92-9585ANY screeningCcf ProviderStart: 02-16-2023 End: 95-06-4136DYV screeningCcf ProviderComment on above:Performed By: #### PSAD #### [facility] [address] [place] [address] Dr. Poe ChangStart: 22-90-0134Epjnr 1995 panel - Serum or PlasmaREBECCA Lux MD Work Phone: Start: 42-24-8613Bepgxhgiovoq of radioactive seed into prostateLannette ClemonsStart: 56-32-9629Vcnbx count complete auto&auto difrntl wbcG Johan Lux MD Work Phone: Start: 45-87-1502SCD-US fusion guided transrectal biopsy of prostateKathy Lue Start: 51-38-3745GIX of prostateKathy Lue ColonoscopyKathy Lue Coronary artery bypass grafts x 2Patrick LAMBERT History of coronary artery bypass graftingS/P CABG x 2 James Posada MD Work Phone: History of coronary artery bypass graftingS/P CABG x 2 Ignacia Abdul RNHistory of coronary artery bypass graftingS/P CABG x 2Mmeri Bearden RN Plan of Treatment DateCare ActivityDetailAuthorStart: 34-26-7800Zcyqefooq for malignant neoplasm of colonNOSC HealthcareStart: 22-17-1532Uvsoo panelLipid ScreeningKettering Health Prebletart: 18-15-4981Whlwsvlq specific antigen measurementProstate Cancer Screening DiscussionKettering Health [facility]tart: 51-04-6456Qukgc panelLipid Screening [facility]: 72-46-9083Mgcfoeezz for malignant neoplasm of colon ColonoscopyCentral Harnett Hospitaltart: 97-22-9143Bzzcocxv specific antigen measurementProstate Cancer Screening DiscussionKettering Health Prebletart: 04-10-2028 Diabetes ScreeningDiabetes ScreeningKettering Health [facility]: 81-24-0207WCZOPZRE CANCER SCREENING DISCUSSIONPROSTATE CANCER SCREENING DISCUSSIONSycamore Medical Center Start: 64-81-0573Sagmlgak ScreeningDiabetes ScreeningKettering Health [facility]tart: 72-23-1835LPFIEOOA CANCER SCREENING DISCUSSIONPROSTATE CANCER SCREENING DISCUSSIONKettering Health [facility]: 66-22-9864Bssjs panelLipid ScreeningKettering Health [facility]: 87-10-8137UNICZ SCREENLIPID SCREENKettering Health Prebletart: 10-05-2026 Adult BMI ScreeningAdult BMI ScreeningCentral Harnett Hospitaltart: 10-03-2026 Statin Use: CardiovascularStatin Use: CardiovascularNorwalk [facility] Start: 82-90-9594Qgqjz BMI ScreeningAdult BMI ScreeningHocking Valley Community [facility] Start: 74-45-4956Qukvibv ScreeningTobacco ScreeningNorwalk Memorial Hospital SystemStart: 89-72-6996Owfll BMI ScreeningAdult BMI ScreeningNorwalk Memorial Hospital SystemStart: 51-13-2773Ijdcg BMI ScreeningAdult BMI ScreeningNorwalk Memorial Hospital SystemStart: 54-29-0961Tzzgenc ScreeningTobacco ScreeningNorwalk Memorial Hospital SystemStart: 59-59-6431Eqzlqy Use: CardiovascularStatin Use: CardiovascularNorwalk Memorial Hospital SystemStart: 29-85-3930Klquv BMI ScreeningAdult BMI ScreeningCentral Harnett Hospitaltart: 19-24-6783Ozswklm ScreeningTobacco ScreeningHocking Valley Community Hospital Start: 18-35-7883Dakis BMI ScreeningAdult BMI ScreeningHocking Valley Community Hospital Start: 91-33-8761Dsvwy BMI ScreeningAdult BMI ScreeningHocking Valley Community Hospital Start: 58-40-0054Oyctu BMI ScreeningAdult BMI ScreeningNorwalk Memorial Hospital System Start: 77-14-5574Kgpkh BMI ScreeningAdult BMI ScreeningNorwalk Memorial Hospital System Start: 03-50-0438Imdklpn ScreeningTobacco ScreeningNorwalk Memorial Hospital SystemStart: 68-50-0342Iaqvnfkrjw ScreeningDepression ScreeningNorwalk Memorial Hospital SystemStart: 01-29-2026 End: 29-45-6720Bqcmnui encounter wcsdrajyq95/03/2026 11:00 AM EST Office Visit [facility] [place] [address] Dayna Gross MD [address] [facility] [address] [place] [address] [facility]: 01-24-2026 End: 42-42-1714Idpxhwj encounter procedureRadiation OncologyComment on above:1 year follow upStart: 01-23-2026 End: 40-20-9478Jrgmkwho specific Ag [Mass/volume] in Serum or PlasmaPROSTATE- SPECIFIC ANTIGEN DIAGNOSTIC Lab Routine Prostate cancer (HCC) Expected: 01/23/2026, Expires: 04/24/2026[facility] Work Phone: Comment on above:Expected: 01/23/2026, Expires: 04/24/2026Start: 18-73-7456Stmxm BMI ScreeningAdult BMI ScreeningNorwalk Memorial Hospital SystemStart: 13-76-4079Wlxyivx ScreeningTobacco ScreeningNorwalk Memorial Hospital SystemStart: 11-12-2025 End: 18-68-6938Oxpunjv encounter aoaqonswe26/15/2025 1:30 PM EST Office Visit [facility] A Department of [place] [id number] [place] [address] Akiko Santacruz PA-C [address] [facility], [address] [place] [address] [facility], A Department of [facility] Start: 14-30-0094Jezqs BMI ScreeningAdult BMI ScreeningHocking Valley Community Hospital Start: 24-61-0478Sraajvk ScreeningTobacc ScreeningCentral Harnett Hospitaltart: 33-64-4197Snxff BMI ScreeningAdult BMI ScreeningCentral Harnett Hospitaltart: 05-06-4989Lmllq BMI ScreeningAdult BMI ScreeningCentral Harnett Hospitaltart: 44-54-4879Motkkei ScreeningTobacco ScreeningCentral Harnett Hospitaltart: 93-84-6829DAQKD-19 Vaccine ( season)COVID-19 Vaccine ()[facility]: 37-09-5764Crhbriqkq vaccinationInfluenza VaccineCentral Harnett Hospitaltart: 07-19-2025 End: 14-39-6139Elcveue encounter ijxxyfeug91/21/2025 10:45 AM EDT Office Visit [facility] [address] [place] [address] Kinjal Burton PA-Bereket [address] [place] [address] Immanuel Cope MD [address] [place], [place] [address] [facility] CardiologyStart: 94-69-8507Ustoxbis ScreeningDiabetes Screening [facility]: 22-86-3153VEKHXIAA SCREENDIABETES SCREENSycamore Medical Center Start: 06-21-2025 End: 29-23-6151Dfelkha encounter zjykcqvjy36/24/2025 2:15 PM EDT Office Visit [facility] [address] [place] [address] Kinjal Burton PA-C [address] [place] [address] Clarence Maza MD [address] [place] [address] [facility] CardiologyStart: 06-19-2025 End: 25-27-7922Mpeuhwr encounter fkxaotwrj43/22/2025 2:00 PM EDT Office Visit [facility] [address] [place] [address] Kinjal Burton PACatC [address] [place] [address] [facility] CardiologyStart: 04-11-2025 End: 54-70-2382Vswkcum encounter gewooxwtu82/14/2025 1:30 PM EDT Appointment Radiology Pet CT [address] [place] [address] [place] [address] PSMA- outside orderRadiology Pet CTComment on above:PSMA-outside orderStart: 53-67-7361Riesm-19 Vaccine ( season)Covid-19 Vaccine ( season)[facility]: 23-50-7713EVSQJ-19 Vaccine (4 - Mixed Product risk season)COVID-19 Vaccine (4 - Mixed Product risk ) [facility] SystemStart: 03-15-2025 End: 91-63-8278Jwqavrc encounter pvovaexso54/17/2025 2:00 PM EDT Office Visit [facility] [address] [place] [address] James Posada MD [address] [place] [address] [facility] CardiologyStart: 03-14-2025 End: 62-77-7970Qolxqpa encounter curxnbxzc85/16/2025 1:00 PM EDT Office Visit [facility] - [facility] [address] [place] [address] QvzCanurv Physicians [facility] Sur[facility] - [facility] TowGallup Indian Medical Centertart: 01-02-2025 End: 69-16-7017Sjpvvxk encounter grirdlkpf76/04/2025 1:45 PM EST Office Visit Rad[facility] Oncology [address] [place] [address] [place] [address] Jhony Lux MD [address] [place] [address] [place] [address] 1 yr rvRadiation OncologyComment on above:1 yr rvStart: 30-28-5033Gngsycx Directive DiscussionAdvance Directive DiscussionCamp Nelson ClinicStart: 88-50-5200JDWXZ-19 Vaccine ( season)COVID-19 Vaccine ( season)[facility] SystemStart: 10-10-2024 End: 72-47-9516Qmjjobm encounter qyfxnzhyb16/12/2024 9:00 AM EST Office Visit [facility] [address] [place] [address] Melo Reilly, DPM [address] [place], [place] [address] [facility]RYStart: 09-26-2024 End: 92-34-0221Ecfbhox encounter procedureNOMS PODIATRYComment on above: ArrivedStart: 09-11-2024 End: 29-13-5514Horrvskjg to same day surgery lflotb6009/11/2024 11:30 AM EDT - 09/11/2024 12:00 PM EDT Surgery [facility] - Surgery [address] [place] [address] Tracy Almaguer DO [address] [place], [place] [address] COLONOSCOPY DIAGNOSTIC / SCREENING [11957 (CPT)][facility] - SurgeryComment on above:COLONOSCOPY DIAGNOSTIC / SCREENING [69871 (CPT )]Start: 09-11-2024 End: 47-53-2299Yemlmmfjojt flx dx w/collj spec when pfrmdCOLONOSCOPY DIAGNOSTIC / SCREENING diarrhea 09/11/2024 11:30 AM EDTFREMONT SURGERYStart: 09-11-2024 Subsequent hospital visit by tvgoardcs82/14/2024 11:30 AM EDT Hospital Encounter [facility] Surgery [address] [place] [address] Tracy Almaguer, [address] [place] [address] [facility] - SurgeryStart: 09-05-2024 End: 07-04-7082oyzefumaaq10/08/2024 2:50 PM EDT Support Visit [facility] Admit [address] [place] [address] [facility] - Pre AdmitStart: 08-28-2024 End: 16-38-8148Enoncsg encounter /30/2024 11:30 AM EDT Appointment [facility] - CT Imaging [address] [place] [address] [facility] - CT ImagingStart: 08-17-2024 End: 83-85-8515Ydxcmsh encounter scebatada34/19/2024 3:15 PM EDT Office Visit [facility] [address] [place] [address] Kerri Benitez, DPM [address] [place], [place] [phone] [facility]RYStart: 33-31-4967Uclbd-19 Vaccine ( season) Covid-19 Vaccine ( season)[facility]: 21-94-2536Clczcwkuh vaccinationKettering Health Prebletart: 07-18-2024 End: 85-13-4924Rlljafd encounter nkxnujkgw43/20/2024 1:15 PM EDT Office Visit [facility] [address] [place] [address] Kerri Benitez, DPM [address] [place] [place] [address] ArrivedNOMS PODIATRYComment on above:ArrivedStart: 98-17-3462Izpzrarfq aortic aneurysm screeningAbdominal Aortic Aneurysm (AAA) ScreenCentral Harnett Hospitaltart: 49-19-4233Orbjqrx Directive DiscussionAdvance Directive Discussion [facility]: 99-12-1162Mujj Risk ScreeningFall Risk ScreeningCentral Harnett Hospitaltart: 04-54-7470Dbiumwmstgir Vaccine: 65+ Years (1 of 1 - PCV) Pneumococcal Vaccine: 65+ Years (1 of 1 - PCV)[facility] HealthcareStart: 01-05-2024 [facility]: 42-65-5837Ztkibxbuno Assessment Depression AssessmentKettering Health Prebletart: 75-34-1772Wgyvw-19 Vaccine ( season)Covid-19 Vaccine ( season)[facility]: 74-90-4913Sbzupjoss vaccinationKettering Health [facility]: 84-41-0865LKEREIWWEQ ASSESSMENTDEPRESSION ASSESSMENTKettering Health [facility]art: 98-34-3271Ohwsnczsp vaccinationKettering Health Prebletart: 07-05-2022 End: 13-75-5193Rbrfkygu specific Ag [Mass/volume] in Serum or Plasma PSA/PROSTSPECAG DIAG Lab Routine Malignant neoplasm of prostate (HCC) Expected: 07/05/2022, Expires: 09/04/2022[facility] Work Phone: Comment on above:Expected: 07/05/2022, Expires: 09/04/2022tart: 04-28-2022 End: 16-90-7940JZ DIP B/OUA DIP B/O Lab Routine Malignant neoplasm of prostate (HCC) Dysuria Expected: 04/28/2022, Expires: 06/28/2022[facility] Work Phone: Comment on above:Expected: 04/28/2022, Expires: 06/28/2022tart: 04-20-2022 End: 48-22-8955Palwzdhpgb complete panel - UrineURINALYSIS, WITH MICROSCOPIC Lab Routine Malignant neoplasm of prostate (HCC) Expected: 04/20/2022,Expires: 06/20/2022[facility] Work Phone: Comment on above:Expected: 04/20/2022, Expires: 06/20/2022tart: 04-02-2022 End: 13-14-8610IWN W Auto Differential panel - BloodCBC + DIFF Lab Routine Prostate cancer (HCC) Expected: 04/02/2022, Expires: 06/02/2022[facility] Work Phone: Comment on above:Expected: 04/02/2022, Expires: 06/02/2022tart: 38-94-2342YBIBT-19 VACCINE (3 - Booster for Moderna series) COVID-19 VACCINE (3 - Booster for Moderna series)[facility]: 72-76-4165OLKNN-19 VACCINE (3 - Booster for Moderna series)COVID-19 VACCINE (3 - Booster for Moderna series)[facility]: 60-05-3929VQHRA-19 VACCINE (3 - Moderna series)COVID-19 VACCINE (3 - Moderna series)[facility]: 35-08-7952FESIF-19 Vaccine (3 - Moderna risk series)COVID-19 Vaccine (3 - Moderna risk series)[facility] SystemStart: 27-96-8637DDZ Vaccine (1 - 1- dose 60+ series)RSV Vaccine (1 - 1-dose 60+ series)[facility]: 41-71-2268RXY Vaccine (1 - Risk 60-74 years 1-dose series)RSV Vaccine (1 - Risk 60-74 years 1-dose series)[facility]: 48-74-3764PCWMOHGR CANCER SCREENING DISCUSSIONPROSTATE CANCER SCREENING DISCUSSIONKettering Health [facility]tart: 49-18-5212Hwywxerri for malignant neoplasm of lungLung Cancer ScreeningCleCleveland Clinic Mercy Hospitaltart: 19-53-1538TWNCRAPM VACCINE (1 of 2)SHINGRIX VACCINE (1 of 2) [facility]: 97-94-7261WKRGDMGLW (FIT-DNA)COLOGUARD (FIT-DNA)[facility]: 41-34-8744RvbstnuxhniXBUGLZSIAPNSriycluut ClinicStart: 2004 COLORECTAL CANCER SCREENINGCOLORECTAL CANCER SCREENINGK[facility] Health [facility]: 84-38-0216DW COLONOGRAPHYCT COLONOGRAPHYKettering Health Pre[facility]tart: 2004 DIABETES SCREENDIABETES SCREENKettering Health Prebletart: 09-52-0582YWRWP OCCULT BLOODFECAL OCCULT BLOODK[facility] Health [facility]: 69-31-0943Dwnsecrnm for malignant neoplasm of colonK[facility]: 64-77-7740IKMKATKSQXLKWIDMLWQIUFLATZ [facility]: 28-91-8191GAFOX SCREENLIPID SCREENKettering Health [facility]bletart: 25-97-0001Fiqgfgjbhkenhj of varicella zoster vaccineZoster (Shingles) Vaccine (1 of 2)[facility]: 55-83-5815VJkU,Tdap and Td Vaccines (1 - Tdap)DTaP,Tdap and Td Vaccines (1 - Tdap)[facility]: 23-97-5659HUBANQOM VACCINE (1 of 2)SHINGRIX VACCINE (1 of 2)[facility] Start: 74-30-5340Nvdld microalbumin profileKettering Health Prebletart: 1977 Adult BMI Follow Up PlanAdult BMI Follow Up PlanProMarietta Osteopathic Clinictart: 86-42-5093Dbjedqr ScreeningAnxiety ScreeningK[facility] Health [facility]: 1977 Depression ScreeningDepression ScreeningK[facility] Health [facility]: 1977 HEPATITIS C SCREENINGHEPATITIS C SCREENINGKettering Health Pre[facility]tart: 1977 Hepatitis C screeningHepatitis C ScreeningK[facility] Health [facility]: 64-22-2944LXS SCREENINGHIV SCREENINGK[facility]: 35-31-1114QZY screeningHIV ScreeningK[facility] Health [facility]: 78-68-4651Pxrbd depression screening assessment DEPRESSION SCREENINGK[facility]tering Health Pre[facility]tart: 26-69-7901NFSCHCZNTRDA (1 - PCV) PNEUMOCOCCAL (1 - PCV)[facility]: 56-94-9660Pqqimurevegx vaccination Pneumococcal Vaccine (1 of 2 - PCV)[facility]: 16-65-9516Egdrxrrjisff Vaccine: 65+ (1 of 2 - PCV)Pneumococcal Vaccine: 65+ (1 of 2 - PCV)[facility]: 98-71-8629Ewtlvktnk aortic aneurysm screeningAbdominal Aortic Aneurysm ScreeningKettering Health Prebletart: 1959Medicare Annual Wellness VisitMedicare Annual Wellness VisitCentral Harnett Hospitaltart: 1960 Screening for malignant neoplasm of colonCo[facility] End: 03-49-6017UyozslkcdrqVnjqzliwmzq GI Routine Diarrhea, unspecified type 1 Occurrences starting 08/23/2024 until 08/23/2025[facility] Work Phone: Comment on above:1 Occurrences starting 08/23/2024 until 08/23/2025Endomysial antibody IgA levelKing'S Daughters [facility] Gliadin peptide IgA Ab [Units/volume] in SerumKing'S Daughters Medical [facility] [place] Gliadin peptide IgG Ab [Units/volume] in SerumKing'S Daughters [facility] [place] IgA [Mass/volume] in Serum or PlasmaKing'S Daughters Medical Center [place] End: 83-61-3142XhiZjjmkx Cardiac RehabProMedica Cardiac Rehab Card Rehab Routine S/P CABG x 2 1 Occurrences starting 03/15/2025 until 09/14/2025[facility] Work Phone: Comment on above:1 Occurrences starting 03/15/2025 until 09/14/2025Tissue transglutaminase IgA Ab [Units/volume] in SerumKing'S Daughters Medical Center OhioTissue transglutaminase IgG Ab [Units/volume] in Serum [facility] Immunizations Immunization DateImmunizationNotesCare ZcbfekziMeosaidj36-63-5362asrahxcrm, high dose seasonal, preservative-freeTamiClermont County Hospital11-06-2024 Pneumococcal Conjugate 20-valentTamiClermont County Hospital11-06-2024RSV vaccine, preF A-preF B, recombinantPatrick [employer] [facility]11-06-2024RSV, bivalent, protein subunit RSVpreF, diluent reconstituted, 0.5 mL, PFTaHolmes County [facility]11-06-2024influenza virus vaccine, unspecified formulationTami Enthe medical centerExec[facility] [place] 339281-01-2021SARS-CoV-2 (COVID-19) Ad26 vaccine, recombinantKathy Lue [facility] [id number]-TdG-4 (COVID-19) mRNA-1273 vaccine Leila [employer] [facility] on above:Result Comment: 2023-05-17: 6990-19-0078JCNN-CoV-2 (COVID-19) Ad26 vaccine, recombinantKathy Lue [facility] [id number]-JaK-6 (COVID-19) mRNA-1273 vaccine Leila [employer] [facility] on above:Result Comment: 2023-05-17: 7177-23-6813EHHU-CoV-2 (COVID-19) Ad26 vaccine, recombinantKathy Lue [facility] [id number] virus vaccine, unspecified formulationPabounce.iok [employer] [facility]11-04-2019influenza, injectable, quadrivalent, preservative freeTaHolmes County [facility] Hospital10-29-2018influenza virus vaccine, unspecified formulationPabounce.iolinda [employer] [facility]10-29-2018influenza, injectable, quadrivalent, preservative freeTamika EnochProPaulding County HospitalQpuzyl22-00-3846uprqbwpqx virus vaccine, unspecified formulationPaverona [employer] [facility] Payers DatePayer CategoryPayerPolicy [id number] [id number] 2022MedicareAETNA MEDICARE AETNA MEDICARE ASSURE O D SNP [id number] 2021-Present [phone] [place] [phone] [id number] 2022Medicare [id number] 2022Medicare (Managed Care)AETNA MEDICARE Member Subscriber Plan / Payer (Effective 2021-Present) Name: Meredith Villatoro Relation to Subscriber: Self Name: Meredith Villatoro Payer ID: 1 (NAIC) Type: Medicare Address: [address] [place] [id number] 2022Medicare O AETNA MEDICARE [id number] [id number] [id number] 20-74-3514Rqgqmyn Health [id number] 2.0.1.587986.3.57[id number] 2.0.1.607533.3.57[id number] 2.0.1.722697.3.57[id number] 2.160.1.822224.3.579.2.28409-80-2775Mvypvfk6595451 2.160.1.237302.3.579.2.759412-50-6189Lrzeagl5764886 2.16840.1.388868.3.579.2.716299-58-0701Apmrexj2173011 2.16840.1.969950.3.579.2.532513-77-9019Zghdkal5880121 2.16840.1.859490.3.579.2.830639-83-7254Dyzhcii6412577 2.16840.1.819406.3.579.2.725369-09-3874Vchkwmi7811044 2.16.840.1.079866.3.579.2.884376-40-4617Spvuztv1722803 2.16.840.1.614809.3.579.2.284231-50-2077Mtnpuup15056711 2.16.840.1.085402.3.579.2.54421-28-3337Vjkeubo95721919 2.16.840.1.656999.3.579.2.36985-34-4188Pddyayb80355839 2.16.840.1.392846.3.579.2.09867-97-6798Uvkkhnk64156215 2.16840.1.839644.3.579.2.03013-73-6906Xzyubez63616518 2.16840.1.125248.3.579.2.73307-31-2830Xnolyou58062899 2.16.840.1.438045.3.579.2.30730-42-2546Ywdwixs00607296 2.16.840.1.208147.3.579.2.20782-75-3338Pdpiyet48947497 2.16840.1.914982.3.579.2.10055-62-1869Xjlbbfs391038306 2.16.840.1.982498.3.579.2.753107-11-7417Nvoujhh645036145 2.16.840.1.218517.3.579.2.472864-67-4583Amngrfh85847638 2.16.840.1.077284.3.579.2.427816-42-0530Jaehcsb018680054 2.16.840.1.561600.3.579.2.451309-44-5164Ezbtnmv920587777 2.16.840.1.751538.3.579.2.228996-23-2894Tzposrg703534863 2.16.840.1.023830.3.579.2.989803-64-9830Rahqeza34389224 2.16.840.1.367552.3.579.2.92457-42-3095Dehkdkw58012962 2.16.840.1.881390.3.579.2.07584-49-8675Juokopd58421343 2.16.840.1.868623.3.579.2.87522-58-4453Uxgyqqr98508510 2.16.840.1.807537.3.579.2.50826-58-1273Kcnqgvq43565520 2.16.840.1.716836.3.579.2.42856-38-4355Iemtxpz01003490 2.16.840.1.951628.3.579.2.66723-02-8369Wlwzggt15601406 2.16.840.1.132486.3.579.2.40050-33-2048Ozyqheg54092516 2.16.840.1.576595.3.579.2.63213-50-0515Fzqldls36972030 2.16.840.1.871278.3.579.2.21697-44-8852Bubsbtn82162385 2.16.840.1.093198.3.579.2.55855-01-1507Aceshwf58105265 2.16.840.1.575980.3.579.2.21617-85-6075Zymhraw02202355 2.16.840.1.122236.3.579.2.75943-33-6300Mfrxooy38762701 2.16.840.1.273348.3.579.2.06007-93-5621Nrgiyru54299174 2.16.840.1.865519.3.579.2.55852-04-6989Xiyqrym628314196 2.16.840.1.698968.3.579.2.003552-62-5708Jeutajk942830064 2.16.840.1.005293.3.579.2.966214-12-2864Xdflbgm103933457 2.16840.1.921435.3.579.2.078850-95-4093Rdlufbt359511509 2.16840.1.443150.3.579.2.228940-26-3625Afdzqqk265829646 2.16840.1.839383.3.579.2.419984-09-4120Ouxnjmn623998042 2.16840.1.799393.3.579.2.648511-69-1467Tcbmbix012252207 2.16840.1.399921.3.579.2.740507-51-1781Ualupxj563801602 2.840.1.962049.3.579.2.433042-21-4278Wotibym000722262 2.16840.1.413421.3.579.2.374268-85-6829Xroihjt357800965 2.16840.1.794055.3.579.2.925491-00-0035Fiyrzun100599544 2.16.840.1.374582.3.579.2.819719-92-1450Obeqwvf409083727 2.16840.1.535964.3.57[id number] 2..840.1.839[id number] 2..840.1.390520.19Unknown [id number] 2..840.1.1[id number] 2.0.1.360793.3.579.2.531 Social History DateTypeDetailFacilityStart: 04-29-1977 End: 54-61-6777Otpoavd smoking status NHISSmokes tobacco dailySy[facility] Start: 24-33-9120Dkagkjh of tobacco useCigarette SmokerK[facility] Health [facility]art: 03-11-2022 End: 24-57-1119Hmaqdznded smoked current (pack per day) - Reported0.5Cprem[facility] health [facility] ClinicStart: 03-11-2022 End: 49-29-2219Zaymadm use and exposureFormer smokeless tobacco userKettering Health Prebletart: 03-11-2022 End: 71-44-0333Rswjtvi intakeCurrent drinker of alcohol (finding)[facility]: 50-04-7784Quj Assigned At BirthNot on fileK[facility] Health [facility]art: 03-01-2022 End: 12-04-1816Fyrrtuma to SARS-CoV-2 (event)Not sureKettering Health Prebletart: 95-43-5114Dtvjkzg smoking statusHeavy tobacco smoker (finding)[facility] start: 06-18-2022 End: 81-57-9498Rvu Assigned At BirthMaleExec[facility] start: 05-17-2023 End: 03-01-4499Ukynifa smoking statusEx-smoker (finding)[facility] HospitalTobacco smoking statusNeverExecutive [facility] of [facility] Daytontart: 01-00-2417Kgt Assigned At MaleGalion Hospitaltart: 41-09-7918Mnxwwlw smoking status NHISNever smoked tobaccoNOMS HealthcareStart: 93-53-3479Ylfnwrv use and exposure Smokeless tobacco non-userNOMS HealthcareStart: 06-15-2024 End: 58-95-0033Vqynljzuo beverage intakeLifetime non-drinker (finding)[facility] HealthcareStart: 07-04-2015 End: 44-91-5676DbyWupx (finding)[facility]: 59-41-2635Gvjzzrl of tobacco useCurrent smokerProHale Infirmary Health SystemStart: 09-05-2024 End: 07-59-8146Gvccrpvdg beverage intakeEx-drinker (finding)[facility] Centeredic [employer] SystemHas the [employer] gas, oil, or water [employer] threatened to shut off services in your home in past 12MoNoProMedica Health SystemHistory of tobacco usePassive smokerProMedica Health System End: 75-64-1992Fhfssoo of tobacco useChews TobaccoProMedica Health SystemAre you [...] the time - these days [OSQ]Not at allOhioHealth O'Bleness Hospital Health SystemStart: 43-80-0017Oiidowe CommentQuit 4 years ago.[facility] [employer] SystemSexual OrientationExec[facility] Goals DatePatient GoalDesired Activity/StatePersonal health goalComment [...] return home with self care Functional Status Anwl[id number] StatusNoSouthwest General Health Center02-17-2025Functional StatusN/A[facility]11-18-2024Functional StatusN/A[facility]04-19-2024Functional StatusN/A[facility]10-16-2023Functional StatusN/A[facility]08-14-2023Functional StatusN/A [facility]06-19-2023Functional StatusExec[facility] of [facility]04-10-2023 Functional StatusN/A[facility] [id number] StatusN/A[facility]08-17-2022Functional StatusN/AExec[facility] of [facility] Molly Clinical Notes 03-11-2022 to 10-05-2025 Note Date & [id number] Miscellaneous Notes* Telephone Encounter - Amairani Guerra - 10/05/2025 8:44 AM EST ----- Message from JENNIFER Lacey sent at 10/04/2025 9:59 AM EST ----- Regarding: Tripp FU Needs FU in [facility]/ Vestibular Clinic Dx: 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 * Telephone Encounter - Supriya Garcia - 10/05/2025 8:44 AM EST 1st attempt: Control Systems Designer attempted to contact patient and leave a voicemail [facility] [...] SCHEDULE APPOintment patient sister documented in this encounterMercy [facility] Tiff[facility] HospitalCode On Network Coding11-07-2025 Telephone encounter Note* Telephone Encounter - Amairani Guerra - 10/05/2025 8:44 AM EST ----- Message from JENNFIER Lacey sent at 10/04/2025 9:59 AM EST ----- Regarding: Susana FU Needs FU in [facility]/ [facility] Clinic Dx: 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 Patient's voicemail box was full and could not accept any messages at the time. [facility] [employer] [id number] Telephone encounter Note* Telephone Encounter - Samra [...] WHO CALLED TO SCHEDULE APPOintment patient sister [facility] [employer] [id number] Miscellaneous Notes* Telephone Encounter - Marisol Vigil [...] 8:36 AM EST scheduled documented in this encounterHocking Valley [facility] Hospital11-07-2025 Telephone encounter Note* Telephone Encounter - Marisol Vigil - 10/05/2025 8:36 AM EST ----- Message from JENNIFER Lacey sent at 10/04/2025 9:59 AM EST ----- Regarding: Susana CASTILLO Needs FU in Stroke clinic after 30 day cardiac event monitor Dx: High Right Cortical Embolic CVA. Can see FAINA, Nicolás, Leon or fellow [facility]11-07-2025 Telephone encounter Note* Telephone Encounter - Marisol Vigil - 10/05/2025 8:36 AM EST scheduled [facility]10-20-2025 Hospital Discharge instructions Patient Education 09/17/2025 10:07:40 [...] nerve stimulation). ?For women, using a medical records receptionist to prevent urine leaks. This is a [...] right after experiencing incontinence. General instructions Take oldw-iay-jdvhtig and prescription medicines only as told by [...] important. Where to find more information National [place] of Diabetes and Digestive and Kidney Diseases: www.niddk.nih.gov [place] U[employer] Association: www.urologyhealth.org Contact a health care [...] provider. Document Revised: 06/20/2021 Document Reviewed: 06/20/2021 [email or web address] Patient Education 2023 Jacked. Follow Up Care 01/15/2025 12:30:13 With:PETRA OVIEDO, Leila Simpson, URL Address: [address] [place] [id number] When: Unknown Comments:3 mos w/ PVR [facility] 10-20-2025 NotePatient Education Urology Urinary Incontinence [...] stimulation). ? For women, using a medical records receptionist to prevent urine leaks. This is a [...] your health care provider (more content not included)...[facility] 08-13-2025 Hospital Discharge instructions Patient [...] greater thelikelihood that the cancer will spread. Tie Siding 6 or lower: This indicates that the cancer cells look similar to normal prostate cells (well differentiated). Tie Siding 7: This indicates that the cancer cells [...] stress of having cancer. General instructions Take ldeb-wvr-vzsqrzf and prescription medicines only as told by your health care provider. If you have to go to the hospital, notify your cancer specialist (oncologist). Keep all follow-up visits. This is important. Where to find more information [place] Cancer Society: www.cancer.org [place] Society of Clinical Oncology: www.cancer.net National Cancer Aurora: www.cancer.gov Contact a health care provider if: [...] provider. Document Revised: 02/11/2022 Document Reviewed: 02/11/2022 [email or web address] Patient Education 2023 Jacked. Follow Up Care 08/02/2025 14:09:11 With:PETRA OVIEDO, Leila Simpson, URL Address: [address] [place] [address] When: Unknown Comments:f/u already scheduled 09/17/25 Dony Segovia [facility] 09-15-2025 [facility] Education Oncology Prostate Cancer The prostate is [...] under a microscope. This is called the Tie Siding score and the total score can range from 6?10, indicating how likely it is that the cancer will spread (metastasize) to other parts of the body. The higher the score, the greater thelikelihood that the cancer will spread. ??? Tie Siding 6 or lower: This indicates that the cancer cells look similar to normal prostate cells (well differentiated). ??? Tie Siding 7: This indicates that the cancer cells look somewhat similar to normal prostate cells (moderately differentiated). ??? Tie Siding 8, 9, or 10: This indicates that [...] needles, seeds, wires, o (more content not included)...[facility]08-21-2025 History of Present illness Narrative* Immanuel Cope MD - 07/19/2025 10:45 AM EDT Meredith Villatoro Date of visit: 07/19/2025 Date of : 1960 Age: 65 y.o. Patient Active Problem List Diagnosis BMI 40.0-44.9, adult ([facility]) Vertigo Acquired hammer toe of left foot Arthritis Benign prostatic hyperplasia with urinary obstruction Chronic pain Current every day smoker Difficulty walking Epididymitis Disorder of male genital organs Hypercholesterolemia Primary hypertension PAD (peripheral artery disease) Adenocarcinoma of prostate ([facility]) Dizziness Ischemic colitis BPH (benign prostatic [...] degenerative disc disease Hyperlipidemia Hypertension Prostate cancer ([facility]) Tubular adenoma Vertigo Visual impairment glasses No data recorded No data recorded No data recorded Past Surgical History: Procedure Laterality Date ARTHROSCOPY SHOULDER debridment of type 1 slap lesion , and subacromial decompression Left 05/20/2017 Performed by Jr Zainab Barber DO at [facility] Cardiac Invasive N/A 02/28/2025 Performed by Jimmie Espinoza MD at [facility] CARDIAC CATH LABS CHOLECYSTECTOMY COLON SURGERY 03/14/2013 Low Anterior Colon Resection- Dr. De Leon & Dr. Almaguer COLONOSCOPY N/A 08/05/2017 Performed by Edgar De Leon MD at [facility] COLONOSCOPY DIAGNOSTIC / SCREENING N/A 09/11/2024 Performed by Tracy Almaguer DO at [facility] Coronary angiogram and left ventricular gram/pressure N/A 02/28/2025 Performed by Jimmie Espinoza MD at [facility] CARDIAC CATH LABS CORONARY ARTERY BYPASS GRAFT X2 , MAYBERRY, SVG X 1 ,EVH LEFT UPPER LEG LAI, N/A 03/02/2025 Performed by Claribel Pace MD at [facility] FOOT SURGERY Left 11/2024 PROSTATE SURGERY [...] min Stress: No Stress Concern Present (02/24/2025) [place] of Occupational Health - Occupational Stress Questionnaire Feeling of Stress : Not at all Social Connections: Socially Isolated (02/24/2025) Social Connection and Isolation Panel [NHANES] Frequency of Communication with Friends and Family: Three times a week Frequency of Social Gatherings with Friends and Family: Three times a week Attends Mosque Services: Never Active Member of Clubs or [...] in about 6 months (around 01/19/2026). PCP: [facility] Susana Referring Physician: No referring provider defined for this encounter. documented in this encounterHocking Valley Community Hospital08-20-2025 Miscellaneous Notes* Telephone Encounter - Mallika Anderson CMA - 07/18/2025 2:45 PM EDT Called patient to remind them to bring their most current copy of their medication list with them to their appt. Patient verbalizes understanding. documented in this encounterHocking Valley Community Hospital08-20-2025 Telephone encounter Note* Telephone Encounter - Mallika Anderson CMA - 07/18/2025 2:45 PM EDT Called patient to remind them to bring their most current copy of their medication list with them to their appt. Patient verbalizes understanding. [facility]Spot[facility]07-23-2025 Miscellaneous Notes* Telephone Encounter - Ignacia Abdul RN - 06/20/2025 1:54 PM EDT Last OV 03/15/25 Last CMP 06/14/25 Last EKG 06/14/25 Last CXR 06/14/25.slm documented in this encounterOhio[facility] [employer] [id number] Telephone encounter Note* Telephone Encounter - Ignacia Abdul RN - 06/20/2025 1:54 PM EDT Last OV 03/15/25 Last CMP 06/14/25 Last EKG 06/14/25 Last CXR 06/14/25.slm [facility]i.[facility] [id number] History of Present illness Narrative* Ethel Cowan [...] NM INJECT: PET/CT BODY SCAN. 9.6 mCi K23-NYMP. Administered By: . No other medications given.. ADMINISTRATION TIME: 1318 PATIENT DISCHARGED TO: Ambulatory patient, left [place] department area. Is this a therapy: No A Diagnostic radioactive procedure has taken place, with no further precautions necessary other than routine body substance precautions. More information regarding radiation safety can be found usingthis link: [email or web address] 20Diagnostic%20Nuclear%20Medicine%20Procedures.pdf SIGNATURE: RT Amanda(R) PATIENT NAME: Meredith Villatoro DATE: April 11, 2025 TIME: 1:23 PM PAGER/CONTACT #: documented in this encounterSycamore Medical Center05-14-2025 NoteHNO ID: [id number] Author: ETHEL COWAN RN Service: ? Author [...] Villatoro DATE: April 11, 2025 TIME: 1:19 [facility]05-14-2025 NoteHNO ID: [id number] Author: YANIRA WINSTON RT(R) Service: ? Author Type: Technologist Type: Progress Notes Filed: 04/11/2025 13:23 Note Text: RADIOLOGY SERVICE PROGRESS NOTE SERVICE DATE: 04/11/2025 SERVICE TIME: 1:23 PM PATIENT IDENTITY VERIFICATION COMPLETED USING TWO (2) STANDARD IDENTIFIERS: Name and Date of confirmed by patient verbally POST EXAM PIV STATUS: Discontinued PROCEDURE TYPE: NM INJECT: PET/CT BODY SCAN. 9.6 mCi B01-CLPI. Administered By: . No other medications given.. ADMINISTRATION TIME: 1318 PATIENT DISCHARGED TO: Ambulatory patient, left [place] department area. Is this a therapy: No A Diagnostic radioactive procedure has taken place, with no further precautions necessary other than routine body substance precautions. More information regarding radiation safety can be found using this link: [email or web address] 20Diagnostic%20Nuclear%20Medicine%20Procedures.pdf SIGNATURE: RT Amanda(R) PATIENT NAME: Meredith Villatoro DATE: April 11, 2025 TIME: 1:23 PM PAGER/CONTACT #:[facility]05-13-2025 Miscellaneous Notes* Telephone Encounter - Kaleigh Bearedn RN - 04/10/2025 12:36 PM EDT OV 03/15/25 03/07/25 CBC documented in this encounterHocking Valley Community Hospital05-13-2025 Telephone encounter Note* Telephone Encounter - Kaleigh Bearden RN - 04/10/2025 12:36 PM EDT OV 03/15/25 03/07/25 CBC [facility]05-13-2025 Miscellaneous Notes* Telephone Encounter - Kaleigh [...] ER; pt states he will go to [facility] ER now. Pt l/s MBO 03/15/25. * Telephone Encounter - Kaleigh Bearden RN - 04/10/2025 11:23 AM EDT Pt went to ER. documented in this encounterHocking Valley Community Hospital05-13-2025 Telephone encounter Note* Telephone Encounter - [...] ER; pt states he will go to [facility] ER now. Pt l/s MBO 03/15/25. [place] [id number] Telephone encounter Note* Telephone Encounter - Kaleigh Bearden RN - 04/10/2025 11:23 AM EDT Pt went to ER. 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 grade group 5 4+5= 9 Labs: 01-10-25 PSA 0.5 10-03-24 PSA 0.6 03-17-24 PSA 0.2 Clinical Notes Reviewed: 03-26-25 [facility] Date of last: na Additional Information/Imaging: N/A Is this the first PSMA PET:Yes (Please schedule as requested by patient or office) Positive Scan Schedule as place of last (DOS) or Region Negative Scan Schedule at ANY PSMA site requested Isotope used: Region F-18 flotufolastat,18F flotufolastat Posluma MC GA68 PSMA PET 72148/LOCAMETZ (Gallium GA-68 Gozetotide) (6 mCi) A9800 - MC [place] (Flotufolastat F18) (8mCi), A9608 - Region Auth#: [id number] Date Range: 03-01-25 to 08-28-25 for 1 dos MD NPI: Leila Lambert Member ID: [employer] Site/Contact: Case/Ref#: Notes: auths canned into epic Route to or Requested Scheduling Pool: P PET WIRELESS RETAIL MANAGER MC, P OCS CLERICAL POOL([place]), P MOLLY FOAMING MACHINE OPERATOR [facility]05-06-2025 Miscellaneous Notes* Telephone Encounter - Kalie Marks RN - 04/03/2025 8:22 AM EDT PSMA Comments for Lamp Cleaner: Molly Birmingham the patient need anesthesia: NO Primary Insurance: [facility] 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 grade group 5 4+5= 9 Labs: 01-10-25 PSA 0.5 10-03-24 PSA 0.6 03-17-24 PSA 0.2 Clinical Notes Reviewed: 03-26-25 [facility] Date of last: na Additional Information/Imaging: N/A Is this the first PSMA PET:Yes (Please schedule as requested by patient or office) Positive Scan Schedule as place of last (DOS) or Region Negative Scan Schedule at ANY PSMA site requested Isotope used: Region F-18 flotufolastat,18F flotufolastat Pos[place] GA68 PSMA PET 84423/LOCAMETZ (Gallium GA-68 Gozetotide) (6 mCi) A9800 - [place] (Flotufolastat F18) (8mCi), A9608 - Region Auth#: [id number] Date Range: 03-01-25 to 08-28-25 for 1 dos MD NPI: Leila Lambert Member ID: [employer] Site/Contact: Case/Ref#: Notes: auths canned into epic Route to or Requested Scheduling Pool: P PET WIRELESS RETAIL MANAGER MC, P OCS CLERICAL POOL([place]), P MOLLY FOAMING MACHINE OPERATOR * Telephone Encounter - Akiko White - 04/02/2025 3:02 PM EDT This form is used for MAIN CAMPUS APPOINTMENTS ONLY. Is this request for a Main [place] PET scan appointment? 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 Other Contact: PSMA PET May Winston [phone] Leila Lambert Area Code [phone] + Phone/Pager: [phone] PET Orders (A delay in scheduling will [...] need anesthesia? NO Send requests to P [facility] documented in this encounterSycamore Medical Center05-05-2025 Telephone encounter Note * Telephone Encounter - Akiko White - 04/02/2025 3:02 PM EDT This form is used for MAIN CAMPUS APPOINTMENTS ONLY. Is this request for a Main [place] PET scan appointment? 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 Other Contact: PSMA PET May Winston [phone] Leila Lambert Area Code [phone] + Phone/Pager: [phone] PET Orders (A delay in scheduling will [...] patient need anesthesia? NO Send requests to [facility]04-28-2025 NotePatient Education Oncology Hormone Suppression Therapy for [...] cancer. Where to find more information ??? [place] Cancer Society: www.cancer.org ??? National Cancer [place]: www.cancer.gov Contact a health care provider if: [...] are confused. ??? You (more content not included)...[facility]04-24-2025 Miscellaneous Notes* Telephone Encounter - Ignacia Abdul RN - 03/22/2025 3:42 PM EDT Last OV 03/15/25 Last BMP,CBC Mg 03/06/25 Lipid 02/25/25 Last CXR 03/05/25 Last EKG 03/05/25.slm * Telephone Encounter - LEO Manning - 03/22/2025 3:42 PM EDT Looks like amiodarone should only be for 3 months postop. Will not give refills. documented in this encounterHocking Valley Community Hospital04-24-2025 Telephone encounter Note* Telephone Encounter - Ignacia Abdul RN - 03/22/2025 3:42 PM EDT Last OV 03/15/25 Last BMP,CBC Mg 03/06/25 Lipid 02/25/25 Last CXR 03/05/25 Last EKG 03/05/25.slm [facility]04-24-2025 Telephone encounter Note* Telephone Encounter - LEO Manning - 03/22/2025 3:42 PM EDT Looks like amiodarone should only be for 3 months postop. Will not give refills. [facility] [employer] [id number] History of Present illness Narrative* James Posada [...] degenerative disc disease Hyperlipidemia Hypertension Prostate cancer ([facility]) Tubular adenoma Vertigo Visual impairment glasses No data recorded No data recorded No data recorded Past Surgical History: Procedure Laterality Date ARTHROSCOPY SHOULDER debridment of type 1 slap lesion , and subacromial decompression Left 05/20/2017 Performed by Jr Zainab Barber DO at [facility] Cardiac Invasive N/A 02/28/2025 Performed by Jimmie Espinoza MD at [facility] CARDIAC CATH LABS CHOLECYSTECTOMY COLON SURGERY 03/14/2013 Low Anterior Colon Resection- Dr. De Leon & Dr. Almaguer COLONOSCOPY N/A 08/05/2017 Performed by Edgar De Leon MD at [facility] COLONOSCOPY DIAGNOSTIC / SCREENING N/A 09/11/2024 Performed by Tracy Almaguer DO at [facility] Coronary angiogram and left ventricular gram/pressure N/A 02/28/2025 Performed by Jimmie Espinoza MD at [facility] CARDIAC CATH LABS CORONARY ARTERY BYPASS GRAFT X2 , MAYBERRY, SVG X 1 ,EVH LEFT UPPER LEG LAI, N/A 03/02/2025 Performed by Claribel Pace MD at [facility] FOOT SURGERY Left 11/2024 PROSTATE SURGERY [...] min Stress: No Stress Concern Present (02/24/2025) [place] [employer] of Occupational Health - Occupational Stress Questionnaire Feeling of Stress : Not at all Social Connections: Socially Isolated (02/24/2025) Social Connection and Isolation Panel [NHANES] Frequency of Communication with Friends and Family: Three times a week Frequency of Social Gatherings with Friends and Family: Three times a week Attends Mosque Services: Never Active Member of Clubs or [...] in about 3 months (around 06/14/2025). PCP: [facility] Susana Referring Physician: No referring provider defined for this encounter. documented in this encounterHocking Valley Community Hospital04-16-2025 History of Present illness Narrative* Fadi Avelar, WARDSPERSON-DIET THERAPIST - 03/14/2025 1:00 PM EDT Images from the original note were not included. Outpatient Follow-Up Note Date of Visit: 03/14/2025 PCP: [facility] Susana Summary of Admission I had the pleasure today of seeing Meredith Franklin Gloria in the office, in conjunction with, Dr. Pace, following their recent x2 with left internal thoracic artery to mid left anterior descending, greater saphenous vein graft from aorta to the 1st obtuse marginal performed on March 02 at [facility]. As you recall, Meredith Villatoro is a [...] clear yellow urine. Patient's home urologist in [place] was contacted, he was cleared for void trials. He was slowly able mobilize in the hallway. PT OT evaluated patient and were recommending SNF at discharge. The patient does have a supportive at home including his 90-year-old mother. Patient was declining detention facility and wished to be discharged home. [...] degenerative disc disease Hyperlipidemia Hypertension Prostate cancer ([facility]) Tubular adenoma Vertigo Visual impairment glasses [...] care. Allen 03/14/25 1323 documented in this encounterHocking Valley Community Hospital04-16-2025 Instructions* Patient Instructions* LEO Allen - 03/14/2025 1:00 PM EDT 1. Please continue to wear Heart Hugger for a total of 5 weeks from the date of surgery 2. Please continue to observe a less than 10 pound lifting restriction for a total of 6 weeks from the date of surgery 3. Please follow up with your medical doctors including your histology specialist and primary care physician 4. Please plan to participate in phase 2 cardiac rehabilitation after following up with your histology specialist No further follow-up with our office but please do not hesitate to call with any questions or concerns about your recent surgery documented in this encounterHocking Valley Community Hospital04-16-2025 Miscellaneous Notes* Telephone Encounter - Jeri Bales CMA - 03/14/2025 10:06 AM EDT Called patient to remind them to bring their most current copy of their medication list with them to their appt. Patient verbalizes understanding. documented in this [facility]04-16-2025 Telephone encounter Note* Telephone Encounter - Jeri Bales CMA - 03/14/2025 10:06 AM EDT Called patient to remind them to bring their most current copy of their medication list with them to their appt. Patient verbalizes understanding. [facility] [employer] [id number] Miscellaneous Notes* Telephone Encounter - Millie Amaro - 03/05/2025 8:18 PM EDT Contract: [phone] [facility] Emerald re orders * Telephone Encounter - Millie Amaro - 03/05/2025 8:18 PM EDT oc121 numerically paged Fede to Emerald at [facility] documented in this [facility]04-07-2025 Telephone encounter Note* Telephone Encounter - Millie Amaro - 03/05/2025 8:18 PM EDT Contract: [phone] [facility] Emerald re orders [facility]04-07-2025 Telephone encounter Note* Telephone Encounter - Millierebecca Amaro - 03/05/2025 8:18 PM EDT oc121 numerically paged Fede to Emerald at [facility]04-06-2025 Miscellaneous Notes* Telephone Encounter - Millie Amaro - 03/04/2025 7:34 PM EDT Contract: BUZZ [phone] [facility] Emerald re Low blood pressure; Rm [id number] * Telephone Encounter - Millie Amaro - 03/04/2025 7:34 PM EDT ppcrd message was sent to Kim via secure chat documented in this encounterHocking Valley Community Hospital04-06-2025 Telephone encounter Note* Telephone Encounter - Millie Amaro - 03/04/2025 7:34 PM EDT Contract: BUZZ [phone] [facility] Emerald re Low blood pressure; Rm B673 [facility]04-06-2025 Telephone encounter Note* Telephone Encounter - Millie Amaro - 03/04/2025 7:34 PM EDT ppcrd message was sent to Kim via secure chat [facility]04-05-2025 Miscellaneous Notes* Telephone Encounter - Germania Hilton - 03/03/2025 2:09 PM EDT Contract: BUZZ Wheeler @ [facility] is calling regarding Acute RI * Telephone Encounter - Germania Hilton - 03/03/2025 2:09 PM EDT Control Systems Designer contacted SARAH Ho via secure chat advised to reach out to the facility documented in this encounterHocking Valley Community Hospital04-05-2025 Telephone encounter Note* Telephone Encounter - Germaniakam Hilton - 03/03/2025 2:09 PM EDT Contract: BUZZ Summer @ [facility] is calling regarding Acute RI [facility] [facility]04-05-2025 Telephone encounter Note* Telephone Encounter - Germania Yobani - 03/03/2025 2:09 PM EDT Control Systems Designer contacted SARAH Ho via secure chat advised to reach out to the facility [facility]03-25-2025 NotePatient Education Urology Dysuria Dysuria is [...] these instructions at home: Medicines ??? Take rbem-dek-lalkkql and prescription medicines only as told by [...] provider. Document Revised: 06/27/2021 Document Reviewed: 06/27/2021 ElseMakeGamesWithUs Patient Education ? 2023 Jacked.[facility] 02-06-2025 Hospital Discharge instructions Patient [...] Up Care 01/16/2025 08:30:41 With:Leila LAMBERT Address: [address] [place] [address] Business (1) When: Unknown Comments:Office will call to schedule follow up [facility] 03-11-2025 Evaluation + Plan noteExtracted from:Title: Urology Progress NoteAuthor:Leila LAMBERT MD RDate:02/06/25 Impression and Plan Impression: #1. This gentleman's erratic urination seems to be caused by his new tumor growth within the prostatic urethra. Plan: #1. He is getting scheduled for cystoscopy and transurethral resection of prostate tumor under anesthesia. Future Appointments Appointment Date:03/01/2025 11:00:00 AM Scheduled Provider: Location:[facility] Appointment Type:URO Nurse Visit Appointment Date:03/05/2025 11:30:00 AM Scheduled Provider:Leila LAMBERT MD [facility] Type:URO Office Visit Appointment Date:07/02/2025 10:00:00 AM Scheduled Provider: Location:[facility] Appointment Type:URO Nurse Visit Appointment Date:07/23/2025 10:15:00 AM Scheduled Provider:Leila LAMBERT MD [facility]O Office Visit [facility] 03-11-2025 NoteProgress Note-Physician Patient: MEREDITH VILLATORO [...] list: All Problems Arthritis / SNOMED CT 9252859 / Confirmed Hypertension / SNOMED CT 5249825380 / Confirmed High cholesterol / SNOMED CT 50378242 / Confirmed Bilateral hydrocele / SNOMED CT 0973914860 / Confirmed Prostate nodule / SNOMED CT 2946328722 / Confirmed BPH with obstruction/lower urinary tract symptoms / SNOMED CT 7082842296 / Confirmed Prostate cancer / SNOMED CT 6487622433 / Confirmed Epididymitis / SNOMED CT 08943236 / Confirmed Dysuria / SNOMED CT 00593383 / Confirmed Nocturia / SNOMED CT 641071877 / Confirmed Urge incontinence / SNOMED CT 841636606 / Confirmed Feeling of incomplete bladder emptying / SNOMED CT 404276290 / Confirmed Prostatitis / SNOMED CT 48033815 / Confirmed Gross hematuria / SNOMED CT 319694477 / Confirmed History of prostatitis / SNOMED CT 8200742624 / Confirmed Rising PSA following treatment for malignant neoplasm of prostate / SNOMED CT 4920932175 / Confirmed Histories Past Medical History: No active or resolved past medical history items have been selected or recorded. Family History: Hypertension Mother Procedure history: Brachytherapy ([id number]) on 05/21/2022 at 61 Years. MRI-US fusion guided transrectal biopsy of prostate ([id number]) on 02/05/2022 at 61 Years. MRI of prostate ([id number]) on 01/08/2022 at 61 Years. Colonoscopy ([id number]). Social History Social & Psychosocial Habits Tobacco [...] and transurethral resection of prostate tumor under anesthesia.[facility] CenterComment on above: Result Comment: Electronically Signed By: PETRA OVIEDO, Leila Mithcell\Date and Time Signed: 02/06/25 13:50 [id number] NotePatient Education Custom Cystoscopy ??? Voiding after [...] if you have a fever over 100 degrees.[facility] 01-23-2025 NoteHNO ID: [id number] Author: SHARON OCAMPO RN Service: ? Author Type: Registered Nurse Type: Progress Notes Filed: 01/30/2025 09:41 Note Text: AUA= 20[facility]02-25-2025 History of Present illness Narrative [...] ASSESSMENT/PLAN: Prostate adenocarcinoma, initial PSA 2.0, biopsy Tie Siding score 4 + 4 = 8 (grade [...] by: Jhony Lux MD documented in this encounterSycamore Medical Center02-25-2025 NoteHNO ID: [id number] Author: Jhony LUX MD Service: ? Author [...] as already arranged. Signed by: Jhony Lux, [facility]02-18-2025 History of Present illness Narrative* Kerri Shah, WARDSPERSON-DIET THERAPIST - 01/16/2025 2:30 PM EST Images from [...] however, has not seen GI doc in [place] in awhile to get refills. He has [...] Performed by Jr Zainab Barber DO at [facility] CHOLECYSTECTOMY COLON SURGERY 03/14/2013 Low Anterior Colon Resection- Dr. De Leon & Dr. Almaguer COLONOSCOPY N/A 08/05/2017 Performed by Edgar De Leon MD at [facility] COLONOSCOPY DIAGNOSTIC / SCREENING N/A 09/11/2024 Performed by Tracy Almaguer DO at [facility] FOOT SURGERY Left 11/2024 PROSTATE SURGERY [...] patient/family/caregiver Referring and communicating with other health healthcare management Gastroenteritis and colitis, viral [A08.4] LEO BERNAL [facility] This note was created with the assistance of a speech recognition program. While intending to generate a timely document that accurately reflects the content of the visit, no guarantee can be provided that every grammatical or spelling mistake has been or will be identified or corrected. Thank you for your understanding. LEO Bernal 01/16/25 1514 documented in this encounterHocking [facility]02[facility] Hospital Discharge instructions Patient Education 01/15/2025 [...] nerve stimulation). ?For women, using a medical records receptionist to prevent urine leaks. This is a [...] right after experiencing incontinence. General instructions Take csmd-qvl-qdgufdf and prescription medicines only as told by [...] important. Where to find more information National [place] of Diabetes and Digestive and Kidney Diseases: www.niddk.nih.gov [place] U[employer] Association: www.urologyhealth.org Contact a health care [...] provider. Document Revised: 06/20/2021 Document Reviewed: 06/20/2021 [email or web address] Patient Education 2023 Jacked. 01/15/2025 12:23:58 Cystoscopy Cystoscopy Cystoscopy is a [...] including vitamins, herbs, eye drops, creams, and fvfg-pxn-ypthmqw medicines. Any problems you or family members [...] provider tells you to take them. Taking tyvy-qzv-pkaxrxy medicines, vitamins, herbs, and supplements. Tests You [...] Follow these instructions at home: Medicines Take zcov-ubk-sdrgkhj and prescription medicines only as told by [...] provider. Document Revised: 07/29/2022 Document Reviewed: 06/27/2021 [email or web address] Patient Education 2023 Jacked. Follow Up Care 10/16/2024 13:01:02 With:PETRA OVIEDO, Leila Simpson, URL Address: [facility] [address] [place] [address]- [phone] When: Unknown [facility] 02-17-2025 NotePatient Education Urology Urinary Incontinence [...] stimulation). ? For women, using a medical records receptionist to prevent urine leaks. This is a [...] your health care provider (more content not included)...[facility] 10-16-2024 Hospital Discharge instructions Patient [...] stress of having cancer. General instructions Take jhkk-hor-mrnueoi and prescription medicines only as told by your health care provider. If you have to go to the hospital, notify your cancer specialist (oncologist). Keep all follow-up visits. This is important. Where to find more information [place] Cancer Society: www.cancer.org [place] Society of Clinical Oncology: www.cancer.net National Cancer [place]: www.cancer.gov Contact a health care provider if: [...] provider. Document Revised: 02/11/2022 Document Reviewed: 02/11/2022 [email or web address] Patient Education 2023 Jacked. Follow Up Care 03/17/2024 12:32:12 With:PETRA OVIEDO, Leila Simpson, URL Address: [facility] [address] [place] [phone] When: Unknown Comments:3 mos w/ PSA and Lupron [facility]18-2024 NotePatient Education Oncology Prostate Cancer The [...] to normal prostate cells (well differentiated). ??? Tie Siding 7: This indicates that the cancer cells look somewhat similar to normal prostate cells (moderately differentiated). ??? Tie Siding 8, 9, or 10: This indicates that [...] needles, seeds, wires, o (more content not included)...[facility]11-12-2024 History of Present illness Narrative* [...] understanding. Melo Reilly DPM documented in this encounterCooper County Memorial [id number] History of Present illness Narrative* Kerri Benitez [...] joint and anankle scope by a different java developer with security clearance to remove some of the excess bone [...] understanding. Kerri Benitez DPM documented in this encounterCooper County Memorial [id number] Miscellaneous Notes* Telephone Encounter - Willie Jason [...] be put in chart. documented in this encounterH[facility]ing [facility]10-[facility] Telephone encounter Note* Telephone Encounter - Willie Jason CMA - 09/15/2024 1:48 PM EDT ----- Message from Dr. Tracy Almaguer, sent at 09/15/2024 7:21 AM EDT ----- Please call pt. And let him know that polyps are benign and that colon biopsies were negative for colitis.He need surveillance colon scope in 5 years unless problems. ThanksDr. Martinez [facility] [employer] [id number] Telephone encounter Note* Telephone Encounter - Willie Jason CMA - 09/15/2024 1:48 PM EDT Spoke with patient regarding pathology results. Patient verbally understood with no further questions. Recall to be put in chart. [facility] [employer] [id number] Miscellaneous Notes* Perioperative Nursing Note - Odalys Taylor RN - 09/05/2024 2:50 PM EDT Preoperative Education Checklist- General Surgery date: 09/11/24 Surgery time: 1130 Arrival time: 0930 1. Bring a photo ID and your insurance card with you the day of surgery. You will check in at the main lobby of the [facility]- registration desk is straight ahead as soon as you walk in. Tell them you are here for surgery. 2. If you have a Living Will/Durable Power of Computer Support Analyst for Health Care that is not on [...] after you have bathed. 5. NO nail guatemalan/acrylic on at least one finger. If you are having a hand, wrist or foot surgery then all nail guatemalan and artificial/acrylic nails must be removed from [...] please call the Preadmission Testing office at [phone], Mon.-Fri. 7 a.m.-3 p.m. Leave a voicemail [...] days prior to procedure documented in this encounterMercy Health Tiffin HospitalClickFacts Harper University [id number] Nurse Note* Perioperative Nursing Note - Odalys Taylor RN - 09/05/2024 2:50 PM EDT Preoperative Education Checklist- General Surgery date: 09/11/24 Surgery time: 1130 Arrival time: 0930 1. Bring a photo ID and your insurance card with you the day of surgery. You will check in at the main lobby of the [facility]- registration desk is straight ahead as soon as you walk in. Tell them you are here for surgery. 2. If you have a Living Will/Durable Power of Computer Support Analyst for Health Care that is not on [...] after you have bathed. 5. NO nail guatemalan/acrylic on at least one finger. If you are having a hand, wrist or foot surgery then all nail guatemalan and artificial/acrylic nails must be removed from [...] please call the Preadmission Testing office at [phone], Mon.-Fri. 7 a.m.-3 p.m. Leave a voicemail [...] Stop taking 0 days prior to procedure [facility] [employer] [id number] Telephone encounter Note* Telephone Encounter - Cindy Maxwell - 08/24/2024 1:45 PM EDT [facility] but [facility] do need a wet signature before we send again. I will set on your desk. [facility] [id number] Miscellaneous Notes* Telephone Encounter - Cindy Maxwell - 08/24/2024 1:45 PM EDT We had to fax over office notes to Jeni, but they do need a wet signature before we send again. I will set on your desk. documented in this encounterNOMS [id number] History of Present illness Narrative* Kerri Shah, WARDSPERSON-DIET THERAPIST - 08/23/2024 11:30 AM EDT Images from [...] degenerative disc disease Hyperlipidemia Hypertension Prostate cancer ([facility]) Tubular adenoma Vertigo Visual impairment glasses Past Surgical History: Procedure Laterality Date ARTHROSCOPY SHOULDER debridment of type 1 slap lesion , and subacromial decompression Left 05/20/2017 Performed by Jr Zainab Barber DO at [facility] CHOLECYSTECTOMY COLON SURGERY 03/14/2013 Low Anterior Colon Resection- Dr. De Leon & Dr. Almaguer COLONOSCOPY N/A 08/05/2017 Performed by Edgar De Leon MD at [facility] PROSTATE SURGERY hx prostate cancer with [...] patient/family/caregiver Referring and communicating with other health healthcare management Diarrhea, unspecified type [R19.7] LEO BERNAL [facility] This note was created with the assistance of a speech recognition program. While intending to generate a timely document that accurately reflects the content of the visit, no guarantee can be provided that every grammatical or spelling mistake has been or will be identified or corrected. Thank you for your understanding. LEO Bernal 08/23/24 1242 documented in this encounterHocking Valley [facility] Hospital08-20-2024 History of Present illness Narrative* Kerri [...] and an ankle scope by a different java developer with security clearance to remove some of the excess bone [...] symptoms and therefore a custom, rigid AFO ([place] brace or [place]) brace is recommended. RX for Fuel Assembler and Leimkuehlers given to the pt, as [...] understanding. Kerri Benitez DPM documented in this encounterCooper County Memorial [id number] Hospital Discharge instructions Patient Education 03/17/2024 12:20:18 [...] under a microscope. This is called the Tie Siding score and the total score can range from 6 10, indicating how likely it is that the cancer will spread (metastasize) to other parts of the body. The higher the score, the greater thelikelihood that the cancer will spread. Tie Siding 6 or lower: This indicates that the cancer cells look similar to normal prostate cells (well differentiated). Tie Siding 7: This indicates that the cancer cells look somewhat similar to normal prostate cells (moderately differentiated). Tie Siding 8, 9, or 10: This indicates that [...] stress of having cancer. General instructions Take xcmv-vlx-hmwcuju and prescription medicines only as told by your health care provider. If you have to go to the hospital, notify your cancer specialist (oncologist). Keep all follow-up visits. This is important. Where to find more information [place] Cancer Society: www.cancer.org [place] Society of Clinical Oncology: www.cancer.net National Cancer [place]: www.cancer.gov Contact a health care provider if: [...] provider. Document Revised: 02/11/2022 Document Reviewed: 02/11/2022 [email or web address] Patient Education 2022 Jacked. Follow Up Care 09/13/2023 15:56:01 With:PETRA OVIEDO, Leila Simpson, URL Address: [address] [place] [address]- When: Unknown [facility] 02-06-2024 History of Present illness [...] ASSESSMENT/PLAN: Prostate adenocarcinoma, initial PSA 2.0, biopsy Tie Siding score 4 + 4 = 8 (grade [...] ASSESSMENT/PLAN: Prostate adenocarcinoma, initial PSA 2.0, biopsy Tie Siding score 4 + 4 = 8 (grade [...] by: Jhony Lux MD documented in this encounterSycamore Medical Center02-06-2024 Nurse Note* Sharon Ocampo LPN - 01/04/2024 2:15 PM EST AUA= 13 Clinical questionnaires incomplete due to Patient declined to complete or answer questions with nurse documented in this encounterSycamore Medical Center10-16-2023 Hospital Discharge instructions Patient Education [...] urethra. Follow these instructions at home: Take nemv-mwj-qrgegot and prescription medicines only as told by [...] provider. Document Revised: 06/03/2022 Document Reviewed: 06/03/2022 [email or web address] Patient Education 2022 [email or web address] Inc. 05/17/2023 08:39:24 Prostate Cancer Prostate Cancer [...] greater thelikelihood that the cancer will spread. Tie Siding 6 or lower: This indicates that the cancer cells look similar to normal prostate cells (well differentiated). Judd 7: This indicates that the cancer cells look somewhat similar to normal prostate cells (moderately differentiated). Tie Siding 8, 9, or 10: This indicates that [...] stress of having cancer. General instructions Take frdm-swd-nkooske and prescription medicines only as told by your health care provider. If you have to go to the hospital, notify your cancer specialist (oncologist). Keep all follow-up visits. This is important. Where to find more information [place] Cancer Society: www.cancer.org [place] Society of Clinical Oncology: www.cancer.net National Cancer [place]: www.cancer.gov Contact a health care provider if: [...] provider. Document Revised: 02/11/2022 Document Reviewed: 02/11/2022 ElseMakeGamesWithUs Patient Education 2022 Jacked. Follow Up Care 05/12/2023 15:19:24 With:PETRA OVIEDO, Leila Simpson, AP Address: [facility] [address], [place] [address]- When:Within 6 Month(s) Comments:w/PSA [facility] 08-14-2023 Hospital Discharge instructions Patient Education [...] under a microscope. This is called the Tie Siding score and the total score can range from 6 10, indicating how likely it is that the cancer will spread (metastasize) to other parts of the body. The higher the score, the greater thelikelihood that the cancer will spread. Tie Siding 6 or lower: This indicates that the cancer cells look similar to normal prostate cells (well differentiated). Tie Siding 7: This indicates that the cancer cells [...] stress of having cancer. General instructions Take tdzl-xif-idwmqzc and prescription medicines only as told by your health care provider. If you have to go to the hospital, notify your cancer specialist (oncologist). Keep all follow-up visits. This is important. Where to find more information [place] Cancer Society: www.cancer.org [place] Society of Clinical Oncology: www.cancer.net National Cancer [place]: www.cancer.gov Contact a health care provider if: [...] provider. Document Revised: 02/11/2022 Document Reviewed: 02/11/2022 [email or web address] Patient Education 2022 Jacked. Follow Up Care 05/17/2023 12:57:55 With:PETRA OVIEDO, Leila Simpson, URL Address: [facility] [address], [place] [phone] When: Unknown Comments:f/u scheduled 09/13/23 with PSA [facility] 08-08-2023 Nurse Note* Mihcelle Dalal RN - 07/06/2023 1:52 PM EDT AUA 18 Michelle Dalal RN documented in this encounterSycamore Medical Center08-08-2023 History of Present illness Narrative* [...] ASSESSMENT/PLAN: Prostate adenocarcinoma, initial PSA 2.0, biopsy Tie Siding score 4 + 4 = 8 (grade [...] by: Jhony Lux MD documented in this encounterSycamore Medical Center06-07-2023 Evaluation note* Encounter Date Diagnosis Assessment Notes Treatment Notes Treatment Clinical Notes Apr, Chronic diarrhea (ICD-10 - K52.9 ) [facility] 04-10-2023 Hospital Discharge instructions Patient Education [...] who: Are older than age 65. Are -[place]. Are obese. Have a family history of [...] cells. Follow these instructions at home: Take sqpk-unh-jyzovrs and prescription medicines only as told by [...] 11/15/2006 Document Revised: 10/28/2018 Document Reviewed: 07/26/2017 [email or web address] Patient Education [employer]. Follow Up Care 03/08/2023 10:43:59 With:PETRA OVIEDO, Leila Simpson, URL Address: [facility] [address], [place] [address]- When: Unknown [facility] 02-23-2023 History of Present illness [...] intake is as follows: B- cookies L- [place] [employer] Sub D- usually similar to lunch [...] Change: Gain of 5.8kg x 6 months [place] Body Weight: 60.9kg Estimated kilocalorie needs: 1522 kilocalories determined by 25 kcal/kg Estimated protein needs: 61-73 grams determined by 1.0-1.2 g/kg [place] weight Estimated fluid needs: ~1500 milliliters based [...] Russell MS, RONNI, LD documented in this encounterSycamore Medical Center10-07-2022 Hospital Discharge instructions Patient Education [...] urethra. Follow these instructions at home: Take hyif-ryv-hwdvaut and prescription medicines only as told by [...] 11/15/2006 Document Revised: 10/10/2019 Document Reviewed: 12/20/2017 [email or web address] Patient Education 2020 Jacked. Follow Up Care 02/27/2022 12:25:22 With:PETRA OVIEDO, Leila Simpson, URL Address: [address] [place] [address] [place] [address]- When: Unknown [facility] 08-09-2022 Nurse Note* Michelle Dalal RN - 07/07/2022 2:34 PM EDT AUA 18. Pt does not have med list. Michelle Dalal RN documented in this encounterSycamore Medical Center08-09-2022 History of Present illness Narrative* G Johan Lux MD - 07/07/2022 2:33 PM EDT Radiation Oncology - Follow Up Note PATIENT NAME: Meredith Villatoro PATIENT DIAGNOSIS: Prostate adenocarcinoma, initial PSA 2.0, biopsy Tie Siding score 4 + 4 = 8 (grade [...] by: Jhony Lux MD documented in this encounterSycamore Medical Center07-21-2022 History of Present illness Narrative* [...] by: Jhony Lux MD documented in this encounterSycamore Medical Center07-21-2022 Nurse Note* Sharon Ocampo LPN - 06/18/2022 8:30 AM EDT AUA= 13 documented in this encounterSycamore Medical Center07-21-2022 History of Present illness Narrative* Jhony Lux MD - 06/18/2022 12:00 AM EDT Patient: Meredith Villatoro Date:06/18/2022 [facility] Department of Radiation Oncology [facility] RADIATION ONCOLOGY POST SEED IMPLANT SIMULATION [...] will commence following simulation. documented in this encounterSycamore Medical Center07-11-2022 History of Present illness Narrative* G Johan [...] by: Jhony Lux MD cc: Adrian Castano [address] [place] [address] * Albina Byrne RN - 06/04/2022 1:40 PM EDT AUA=21 Albina Byrne RN documented in this encounterSycamore Medical Center06-27-2022 History of Present illness Narrative* Jhony Lux MD - 05/25/2022 2:34 PM EDT Date: 05/21/22 Facility: [facility] Procedure: prostate transperineal brachytherapy implant Sources: [...] activity seen, results documented. Michelle Lux MD [facility] documented in this encounterSycamore Medical Center06-14-2022 History of Present illness Narrative* Jhony Lux MD - 05/12/2022 12:00 AM EDT MEREDITH VILLATORO [id number] 05/12/2022 [facility] Department of Radiation Oncology [facility] RADIATION ONCOLOGY BRACHYTHERAPY TREATMENT PLANNING NOTE [...] M.D. / 24:21 PM documented in this encounterSycamore Medical Center06-07-2022 History of Present illness Narrative* [...] collected. Jhony Lux MD documented in this encounterSycamore Medical Center06-07-2022 History of Present illness Narrative* Jhony Lux MD - 05/05/2022 12:00 AM EDT MEREDITH VILLATORO [id number] 05/05/2022 [facility] Department of Radiation Oncology [facility] RADIATION ONCOLOGY SIMULATION NOTE DATE OF SIMULATION: 05/05/2022 MACHINE: [employer]amp Focus 500 Diagnosis: 185 (Prostate Gland) AREA:Prostate PATIENT POSITION: Supine CONTRAST: None PROTOCOL: None CONCURRENT THERAPY: None FIXATION DEVICE: UTS Stabilization device by Nucletron. PROCEDURE: Patient was simulated in exaggerated dorsal lithotomy position. Serial images of the prostate were acquired using TRUS and reconstructed in 3D space. These images were imported into [employer] Prostate planning system where a plan was generated. ASSESSMENT/PLAN: Patient tolerated simulation procedure well. Electronically Signed Johan Lux M.D. / :50 PM documented in this encounterSycamore Medical Center05-27-2022 History of Present illness Narrative* Jhony Lux MD - 04/24/2022 12:00 AM EDT [facility] Radiation Oncology Department RADIATION ONCOLOGY - COMPLETION [...] PM Electronically Signed cc: Dr. Petra Castano, DIET THERAPIST documented in this encounterSy[facility] History of Present illness Narrative* [...] planned. Jhony Lux MD documented in this encounterSycamore [facility] Center05-16-2022 History of Present illness Narrative* [...] planned. Yevgeniy Son MD documented in this encounterSycamore Medical Center05-16-2022 Miscellaneous Notes* Telephone Encounter - [...] fluids. Michelle Dalal, RN documented in this encounterSycamore [facility] Center05-09-2022 History of Present illness Narrative* Jhony Lux MD - 04/06/2022 1:38 PM EDT Radiation Oncology - On Treatment Review (OTR) Note PATIENT NAME: Meredith Villatoro PATIENT DIAGNOSIS: Prostate adenocarcinoma, initial PSA 2.0, biopsy Tie [place]iding score 4 + 4 = 8 (grade [...] planned. Jhony Lux MD documented in this encounterSycamore [facility] Center05-05-2022 History of Present illness Narrative* Jhony Lux MD - 04/02/2022 2:16 PM EDT Radiation Oncology - On Treatment Review (OTR) Note PATIENT NAME: Meredith Villatoro PATIENT DIAGNOSIS: Prostate adenocarcinoma, initial PSA 2.0, biopsy [place] score 4 + 4 = 8 (grade [...] planned. Jhony Lux MD documented in this encounterSycamore Medical Center05-05-2022 Nurse Note* Sharon Ocampo LPN [...] assist. Sharon Ocampo LPN documented in this encounterSycamore Medical Center05-03-2022 History of Present illness Narrative* G Johan Lux MD - 03/31/2022 1:39 PM EDT Radiation Oncology - On Treatment Review (OTR) Note PATIENT NAME: Meredith Villatoro PATIENT DIAGNOSIS: Prostate adenocarcinoma, initial PSA 2.0, biopsy Tie [place]iding score 4 + 4 = 8 (grade [...] planned. Jhony Lux MD documented in this encounterSycamore [facility] Center04-25-2022 History of Present illness Narrative* [...] planned. Jhony Lux MD documented in this encounterSycamore Medical Center04-22-2022 Miscellaneous Notes* Telephone Encounter - Sharon Ocampo LPN - 03/20/2022 4:27 PM EDT CBC order pending your approval. Sharon Ocampo LPN documented in this encounterSycamore [facility] Center04-18-2022 History of Present illness Narrative* Jhony Lux MD - 03/16/2022 12:00 AM EDT MEREDITH VILLATORO [id number] 03/16/2022 [facility] Radiation Oncology Department SIMULATION NOTE DATE OF SIMULATION: 03/16/2022 THERAPIST: Viky Alicea MACHINE: [employer] DIAGNOSIS: Malignant neoplasm of [id number] AREA: PELVIS CONTRAST: None <Select> Consent in [...] / WST 24:16 PM documented in this encounterSycamore Medical Center04-18-2022 History of Present illness Narrative* Jhony Lux MD - 03/16/2022 12:00 AM EDT MEREDITH VILLATORO [id number] 03/16/2022 [facility] Department of Radiation Oncology Treatment Planning Note [...] Lux M.D. 23:19 PM documented in this encounterSycamore Medical Center04-13-2022 History of Present illness Narrative* TERRELL Lockhart [...] is living and Father is Child/Children: No palliative care nurse practitioner arrangements needed: Na Siblings: 2 sister(s) Grandchild(morris): none Home Health Provider: No Community Services: No Jennifer Identified: No Congregation/Spirituality: None Are these practices or beliefs that may affect or influence treatment? No EMPLOYMENT/FINANCIAL/HEALTH INSURANCE: Employment: [employer] Disability and Retired Income source: Social Security disability (SSD) Insurance: Medicare HMO Medicaid active Prescription coverage: Yes Is the patient appropriate for [facility] CO[facility] Assistance program? N/A Financial [...] EPIC: No Health Care Durable Power of Computer Support Analyst: No and declined at this time Scanned [...] Resources and Referrals: Internal: NA External: Other [facility] CLINICAL IMPRESSION: Patient is a 61 year old male with a diagnosis of prostate cancer. Patient lives in [place], [place] with his mother and sister. Patient [...] to complete an Intake Application for the [facility] Care Fund. SW faxed the completed form and encouraged the Patient to call the [facility] to finalize details of his intake application. [...] SW in: MARK Puckett documented in this encounterSycamore Medical Center04-13-2022 Nurse Note* Michelle Dalal RN - 03/11/2022 1:58 PM EDT Radiation Therapy - Patient Education Note PATIENT NAME: Meredith Villatoro PATIENT March 11, 2022 [facility] FACILITY/LOCATION: [facility] READINESS TO LEARN Cognitive Ability: Alert and [...] by: Michelle Dalal RN documented in this encounterSycamore Medical Center04-13-2022 Nurse Note* Michelle Dalal RN - 03/11/2022 1:03 PM EDT AUA 8 Michelle Dalal RN documented in this encounterSycamore Medical Center04-13-2022 History of Present illness Narrative* G Johan Lux MD - 03/11/2022 1:02 PM EDT Radiation Oncology - Prostate Cancer New Patient/Consult Note PATIENT NAME: Meredith Villatoro PATIENT REQUESTING PROVIDER: Dr. Lambert DIAGNOSIS: 61 year old male with prostate adenocarcinoma, initial PSA 2.0, biopsy Tie S[place] score 4 +4 = 8 (grade group [...] cc: Adrian Castano [address] [place] [address] Leila Lambert [address] [place] [id number] documented in this encounterCamp [facility] ClinicEvaluation + [facility] note Future Appointments Appointment Date:09/04/2022 10:15:00 AM Scheduled Provider:Leila LAMBERT MD Location:[facility] Appointment Type:URO Office Visit [facility] evaluation + Plan note Future Appointments Appointment Date:03/08/2023 02:45:00 PM Scheduled Provider:Leila LAMBERT MD Location:[facility] Appointment Type:URO Office Visit Diagnostic Tests Pending * PSA Total 11/29/22 [facility] evaluation + Plan note Future Appointments Appointment Date:03/08/2023 02:45:00 PM Scheduled Provider:Leila LAMBERT MD Location:[facility] App[facility]ments Appointment Date:09/13/2023 10:15:00 AM Scheduled Provider:Leila LAMBERT MD Location:[facility] Appointment Type:URO Office Visit Diagnostic Tests Pending * PSA Total 03/08/23 Future Scheduled Tests Laboratory* PSA Total 02/16/23 [facility] evaluation + Plan note Future Appointments Appointment Date:05/17/2023 11:45:00 AM Scheduled Provider:[facility] Office Visit Appointment Date:09/13/2023 10:15:00 AM Scheduled Provider:[facility]AM[facility]ERT [facility] Type[facility] Office Visit Future Scheduled Tests Laboratory* PSA Total 02/16/23 [facility] evaluation + Plan note Future Appointments Appointment Date:07/12/2023 10:30:00 AM Scheduled Provider:Leila LAMBERT MD Location:[facility] Appointment Type:URO Office Visit Appointment Date:09/13/2023 11:45:00 AM Scheduled Provider:Leila LAMBERT MD [facility] Office Visit Future Scheduled Tests Laboratory* PSA Total 02/16/23 [facility] evaluation + Plan note Future Appointments Appointment Date:09/06/2023 09:30:00 AM Scheduled Provider: Location:[facility] Appointment Type:URO Nurse Visit Appointment Date:09/13/2023 11:45:00 AM Scheduled Provider:Leila LAMBERT MD Location:[facility] Appointment Type:URO Office Visit Future Scheduled Tests Laboratory* PSA Total 02/16/23 [facility] evaluation + Plan note Future Appointments Appointment Date:03/17/2024 10:45:00 AM Scheduled Provider:Leila LAMBERT MD Location:[facility] Appointment Type:URO Office Visit Diagnostic Tests Pending * PSA Total 09/13/23 Future Scheduled Tests Laboratory* PSA Total 02/16/23 [facility] evaluation + Plan note Future Appointments Appointment Date:09/29/2024 09:45:00 AM Scheduled Provider:Leila LAMBERT MD [facility] Office Visit Diagnostic Tests Pending * PSA Total 07/30/24 [facility] evaluation + Plan note Future Appointments Appointment Date:09/29/2024 09:45:00 AM Scheduled Provider:Leila LAMBERT MD Location[facility] Appointments Appointment Date:10/16/2024 11:45:00 AM Scheduled Provider:Leila LAMBERT MD Location:[facility] Appointment Type:URO Office Visit [facility] evaluation + Plan note Future Appointments Appointment Date:01/08/2025 09:30:00 AM Scheduled Provider: [facility] Nurse Visit Appointment Date:01/15/2025 11:15:00 AM Scheduled Provider:Leila LAMBERT MD [facility] Type:[facility] Office Visit Diagnostic Tests Pending * PSA Total 10/16/24 [facility] evaluation + Plan note Future Appointments Appointment Date:01/15/2025 11:15:00 AM Scheduled Provider:Leila LAMBERT MD Location:[facility] Appointment Type:URO Office Visit [facility] evaluation + Plan note Future Appointments Appointment Date:07/02/2025 10:00:00 AM Scheduled Provider: Location:[facility] Appointment Type:URO Nurse Visit Appointment Date:07/23/2025 10:15:00 AM Scheduled Provider:Leila LAMBERT MD Location:[facility] Appointment Type:URO Office Visit Diagnostic Tests Pending * PSA Total 01/15/25 [facility] evaluation + Plan note Future Appointments Appointment Date:09/13/2025 10:00:00 AM Scheduled Provider: Location:[facility] Appointment Type:URO Nurse Visit Appointment Date:09/17/2025 10:45:00 AM Scheduled Provider:Leila LAMBERT MD [facility] Office Visit [facility] evaluation + Plan note Future Appointments Appointment Date:09/17/2025 10:45:00 AM Scheduled Provider:Leila LAMBERT MD [facility] Office Visit [facility] evaluation + Plan note Future Appointments Appointment Date:12/24/2025 12:45:00 PM Scheduled Provider:Leila LAMBERT MD Location:[facility] Appointment Type:URO Office Visit Future Scheduled Tests Laboratory* PSA Total 03/18/26 [facility] evaluation note* Diagnosis Prostate cancer [...] Hypertrophy of breast documented in this encounter [facility] CenterEvaluation noteNo assessment information availableHolmes County [facility] Work Phone: evaluclpiv note* Diagnosis History of prostate cancer- Primary Personal history of malignant neoplasm of prostate Prostate cancer (HCC) Malignant neoplasm of prostate [facility]* Diagnosis Onset Date Resolution Status Abdominal pain acuteDiarrheaacute [facility] Work Phone: evaluation note* Diagnosis Onset Date Resolution Status Abdominal pain acuteDiarrheaacuteIBS (irritable bowel syndrome)acute [facility] Work Phone: evaluation note* Diagnosis Arthritis of left ankle- Primary Other enthesopathy of left foot and ankle Chronic pain of left ankle Other synovitis and tenosynovitis, left ankle and foot [facility] Diagnosis Arthritis of left ankle- Primary Other synovitis and tenosynovitis, left ankle and foot Chronic pain of left ankle [facility] Diagnosis Arthritis of left ankle- Primary Other enthesopathy of left foot and ankle Chronic pain of left ankle Other synovitis and tenosynovitis, left ankle and foot Difficulty walking Difficulty in walking [facility]* Diagnosis Diarrhea, unspecified type- Primary Fecal urgency Personal history of prostate cancer Personal history of malignant neoplasm of prostate [facility] Diagnosis Gastroenteritis and colitis, viral- Primary Intestinal infection due to other organism, NEC Irritable bowel syndrome, unspecified type [facility]* Diagnosis Prostate cancer (HCC)- Primary Malignant neoplasm of prostate documented in this encounter [facility]Eval[facility] note* Diagnosis Coronary artery disease involving [place] coronary artery of [place] heart with unstable angina pectoris (CMS-HCC)- Primary [facility]* Diagnosis S/P CABG x 2- Primary Postsurgical aortocoronary bypass status Postoperative atrial fibrillation (CMS-HCC) [facility]* Diagnosis S/P CABG x 2 Postsurgical aortocoronary bypass status Postoperative atrial fibrillation (CMS-HCC) [facility] Diagnosis S/P CABG x 2 Postsurgical aortocoronary bypass status [facility]* Diagnosis Postoperative atrial fibrillation ([facility]-HCC) [facility]* Diagnosis Primary hypertension- Primary Unspecified essential hypertension [facility] general Narrative - Reported* Type Description Date Medical History PROSTATE CANCER Medical HistoryHIGH BLOOD PRESSURESurgical HistoryBOWEL RESECTION FOR UNCLEAR REASONS - POSSIBLE [id number] HistoryPROSTATE [id number] Hospitalization HistorySEE ABOVE Spotlight Other Hospital course Narrative No data available for this section [facility] Hospital Discharge instructions No data available for this section [facility] Hospital Discharge instructions Additional Instructions [...] problems. -Follow up with PCP. -Office number [phone].[facility] Work Phone: InstructionsNot on filedocumented in [...] available for this section [facility] Summary Purpose Family History No Family History Records Found Relationship Condition Age at Onset Recorded Date/T vicky father Unknown sisterHypertensionUnknownDiabetes mellitusUnknown Advance Directives No Advanced Directives Records Found Date ActivatedDate SejmxvsjykvHiggcikh86/5/2025 3:23 PM10/05/2025 5:01 PMDate ActivatedDate InactivatedComments02/27/2025 8:57 [...] ActivatedDate InactivatedComments06/22/2022 12:10 AM06/23/2022 6:44 PMDate ActivatedDate YdtraxzmmcoUllkxjha20/5/2025 3:23 PM Chief Complaint and Reason for [...] or prosecute any alcohol or drug abuse patient.[facility] CenterIn the event this information is protected by the Federal Confidentiality of Alcohol and Drug Abuse Patient Records regulations: The Federal rules restrict any use of the information to criminally investigate or prosecute any alcohol or drug abuse patient.[facility] CenterIn the event this information is protected by the Federal Confidentiality of Alcohol and Drug Abuse Patient Records regulations: The Federal rules restrict any use of the information to criminally investigate or prosecute any alcohol or drug abuse patient.[facility] CenterIn the event this information is protected by the Federal Confidentiality of Alcohol and Drug Abuse Patient Records regulations: The Federal rules restrict any use of the information to criminally investigate or prosecute any alcohol or drug abuse patient.[facility] CenterIn the event this information is protected by the Federal Confidentiality of Alcohol and Drug Abuse Patient Records regulations: The Federal rules restrict any use of the information to criminally investigate or prosecute any alcohol or drug abuse patient.[facility] CenterIn the event this information is protected by the Federal Confidentiality of Alcohol and Drug Abuse Patient Records regulations: The Federal rules restrict any use of the information to criminally investigate or prosecute any alcohol or drug abuse patient.[facility] CenterIn the event this information is [...] or prosecute any alcohol or drug abuse patient.[facility] CenterIn the event this information is protected by the Federal Confidentiality of Alcohol and Drug Abuse Patient Records regulations: The Federal rules restrict any use of the information to criminally investigate or prosecute any alcohol or drug abuse patient.[facility] CenterIn the event this information is protected by the Federal Confidentiality of Alcohol and Drug Abuse Patient Records regulations: The Federal rules restrict any use of the information to criminally investigate or prosecute any alcohol or drug abuse patient.[facility] CenterIn the event this information is protected by the Federal Confidentiality of Alcohol and Drug Abuse Patient Records regulations: The Federal rules restrict any use of the information to criminally investigate or prosecute any alcohol or drug abuse patient.[facility] CenterIn the event this information is protected by the Federal Confidentiality of Alcohol and Drug Abuse Patient Records regulations: The Federal rules restrict any use of the information to criminally investigate or prosecute any alcohol or drug abuse patient.[facility] CenterIn the event this information is protected by the Federal Confidentiality of Alcohol and Drug Abuse Patient Records regulations: The Federal rules restrict any use of the information to criminally investigate or prosecute any alcohol or drug abuse patient.[facility] CenterIn the event this information is protected by the Federal Confidentiality of Alcohol and Drug Abuse Patient Records regulations: The Federal rules restrict any use of the information to criminally investigate or prosecute any alcohol or drug abuse patient.[facility] CenterIn the event this information is protected by the Federal Confidentiality of Alcohol and Drug Abuse Patient Records regulations: The Federal rules restrict any use of the information to criminally investigate or prosecute any alcohol or drug abuse patient.[facility] CenterIn the event this information is protected by the Federal Confidentiality of Alcohol and Drug Abuse Patient Records regulations: The Federal rules restrict any use of the information to criminally investigate or prosecute any alcohol or drug abuse patient.[facility] CenterIn the event this information is protected by the Federal Confidentiality of Alcohol and Drug Abuse Patient Records regulations: The Federal rules restrict any use of the information to criminally investigate or prosecute any alcohol or drug abuse patient.[facility] CenterIn the event this information is protected by the Federal Confidentiality of Alcohol and Drug Abuse Patient Records regulations: The Federal rules restrict any use of the information to criminally investigate or prosecute any alcohol or drug abuse patient.[facility] CenterIn the event this information is protected by the Federal Confidentiality of Alcohol and Drug Abuse Patient Records regulations: The Federal rules restrict any use of the information to criminally investigate or prosecute any alcohol or drug abuse patient.[facility] CenterIn the event this information is protected by the Federal Confidentiality of Alcohol and Drug Abuse Patient Records regulations: The Federal rules restrict any use of the information to criminally investigate or prosecute any alcohol or drug abuse patient.[facility] CenterIn the event this information is protected by the Federal Confidentiality of Alcohol and Drug Abuse Patient Records regulations: The Federal rules restrict any use of the information to criminally investigate or prosecute any alcohol or drug abuse patient.[facility] CenterIn the event this information is protected by the Federal Confidentiality of Alcohol and Drug Abuse Patient Records regulations: The Federal rules restrict any use of the information to criminally investigate or prosecute any alcohol or drug abuse patient.[facility] CenterIn the event this information is protected by the Federal Confidentiality of Alcohol and Drug Abuse Patient Records regulations: The Federal rules restrict any use of the information to criminally investigate or prosecute any alcohol or drug abuse patient.[facility] CenterIn the event this information is protected by the Federal Confidentiality of Alcohol and Drug Abuse Patient Records regulations: The Federal rules restrict any use of the information to criminally investigate or prosecute any alcohol or drug abuse patient.[facility] CenterIn the event this information is protected by the Federal Confidentiality of Alcohol and Drug Abuse Patient Records regulations: The Federal rules restrict any use of the information to criminally investigate or prosecute any alcohol or drug abuse patient.[facility] CenterIn the event this information is protected by the Federal Confidentiality of Alcohol and Drug Abuse Patient Records regulations: The Federal rules restrict any use of the information to criminally investigate or prosecute any alcohol or drug abuse patient.[facility] CenterIn the event this information is protected by the Federal Confidentiality of Alcohol and Drug Abuse Patient Records regulations: The Federal rules restrict any use of the information to criminally investigate or prosecute any alcohol or drug abuse patient.[facility] CenterIn the event this information is protected by the Federal Confidentiality of Alcohol and Drug Abuse Patient Records regulations: The Federal rules restrict any use of the information to criminally investigate or prosecute any alcohol or drug abuse patient.[facility] CenterIn the event this information is protected by the Federal Confidentiality of Alcohol and Drug Abuse Patient Records regulations: The Federal rules restrict any use of the information to criminally investigate or prosecute any alcohol or drug abuse patient.[facility] CenterIn the event this information is protected by the Federal Confidentiality of Alcohol and Drug Abuse Patient Records regulations: The Federal rules restrict any use of the information to criminally investigate or prosecute any alcohol or drug abuse patient.[facility] CenterIn the event this information is protected by the Federal Confidentiality of Alcohol and Drug Abuse Patient Records regulations: The Federal rules restrict any use of the information to criminally investigate or prosecute any alcohol or drug abuse patient.[facility] CenterIn the event this information is protected by the Federal Confidentiality of Alcohol and Drug Abuse Patient Records regulations: The Federal rules restrict any use of the information to criminally investigate or prosecute any alcohol or drug abuse patient.[facility] CenterIn the event this information is protected by the Federal Confidentiality of Alcohol and Drug Abuse Patient Records regulations: The Federal rules restrict any use of the information to criminally investigate or prosecute any alcohol or drug abuse patient.[facility] CenterIn the event this information is protected by the Federal Confidentiality of Alcohol and Drug Abuse Patient Records regulations: The Federal rules restrict any use of the information to criminally investigate or prosecute any alcohol or drug abuse patient.[facility] Reason for Visit (unrecogniz ed section and content) ReasonCommentsPatient EducationReasonCommentsProstate CancerSpecialtyDiagnoses / ProceduresReferred By ContactReferred To ContactRadiation Oncology / RADIATION ONCOLOGY Diagnoses Dr. Lambert referral DX: Prostate Ca Procedures NEW PATIENT RAD ONC Leila Lambert MD [address] [place] [address] Jhony Lux MD [address] [place] [address] [place] [address] Referral IDStatusReasonStart DateExpiration DateVisits RequestedVisits [id number]/13/202212/31/527831CllegeWexocjouWvypdaDumgzlLmqosyvc Radiotherapy On-treatment VisitReasonCommentsDiarrheaReasonCommentsUrinalysis ReasonCommentsVolume StudySpecialtyDiagnoses / ProceduresReferred By Contact Referred To ContactRadiation Oncology / RADIATION ONCOLOGY Diagnoses Malignant neoplasm of prostate SIM/IRA/Pelvis Procedures SIMULATION MLOLY IMRT 25 fractions Jhony Lux MD [address] [place] [address] [place] [address] Jhony Lux MD [address] [place] [address] [place] [address] Referral [facility]StatusRe[facility] DateExpiration DateVisits RequestedVisits [id number]/18/202212/31/[id number] TelephoneSpecialtyDiagnoses / ProceduresReferred By ContactReferred To Contact Radiation Oncology / RADIATION ONCOLOGY Diagnoses Malignant neoplasm of prostate 6 Month Follow Up Procedures OFFICE/OUTPATIENT ESTABLISHED HIGH MDM 40-54 MIN OFFICE/OUTPATIENT ESTABLISHED MOD MDM 30-39 MIN OFFICE/OUTPATIENT ESTABLISHED LOW MDM 20-29 MIN OFFICE/OUTPATIENT ESTABLISHED SF MDM 10-19 MIN EST PATIENT Angmichael, Adrian, DIET THERAPIST [address] [place] [address] Jhony Lux MD [address] [place] [address] [place] [address] Referral IDStatusReasonStart DateExpiration DateVisits RequestedVisits [id number]/24/202312/[id number] / Procedures Referred By ContactReferred To ContactRadiation Oncology / RADIATION ONCOLOGY Diagnoses followup Procedures OFFICE/OUTPATIENT ESTABLISHED HIGH [facility] 40 MIN EST PATIENT Adrian Castano, DIET THERAPIST [address] [place] [address] Jhony Lux MD [address] [place] [address] [place] [address] Referral IDStatusReasonStart DateExpiration DateVisits RequestedVisits [id number]/18/202412/31/811420Dxgeiuqc IDStatusReasonStart Date Expiration DateVisits RequestedVisits [id number]/18/[id number] DateCommentsAdvice Only4ReasonComments FUV/check braceTimangelito Villatoro is a [...] MIN EST PATIENT Jhony Lux MD [address] [place] [address] Phone: tel: [place]: [place] [address] [place] [address] Phone: tel: Referral IDStatusReasonStart DateExpiration DateVisits RequestedVisits [id number]/30/202512/31/[id number] DateCommentsAcute MI03/03/2025ReasonOnset VzhlBgcvxjgmKjluehsvzlk27/06/2025ontract: [id number] 291 9280 [address] [facility] re Low blood pressure; Rm S460GnmetmUvqqw DateCommentsorders 03/05/2025ontract: 422226 291 9280 [facility] re ordersReasonCommentsFollow-up hosp f/u [facility]- discharged 03/07- saw LLD in ED- labs 03/08- vas cardotid 03/01- nuc stress 01/27- sched w ptReasonOnset DateCommentsMed Qdfoxh8803/22/2025ReasonComments Nm Pet RequestReasonOnset DateCommentsMed Rlmguu7504/10/2025ReasonOnset Date CommentsChest Pain04/10/2025ReasonCommentsRadiology NMReasonOnset DateComments Med Ndznkz7306/20/2025ReasonCommentsFollow-upEST PT 3 MS F/U L/S O [facility] ER CHEST PAINReasonOnset WepmXngfuzkqAftsyipulxc78/07/2025 Care Teams (unrecognized sec tion and content) Team Status: Active Member Role Status Dates [facility] Active Team Status: Inactive Member Role Status Dates [facility] Active Start: June 22, 2024 End: June 22Richard Aaron ProviderActiveStart: June 22, 2024 End: June 22, 2024 Team Status: Active Member Role Status Dates [facility] Active Start: January 05, 2024 Richard Chisholm Provider, Other ProviderActiveStart: January 05, 2024 Team Status: Inactive Member Role Status [facility] Active Start: March 01, 2024 End: March 01Richard Aaron ProviderActiveStart: March 01, 2024 End: March 01, 2024Team MemberRelationshipSpecialtyStart DateEnd Date Juma Castanoa, DIET THERAPIST [address] [facility] [place] [address] PCP - GeneralInternal Medicine03/03/22 Leila Lambert MD [address] [place] [address] ReferringUrology03/03/22Team MemberRelationshipSpecialtyStart DateEnd Date Juma Castanoa, DIET THERAPIST [address] [facility] [address] PCP - GeneralInternal Medicine03/03/22 Leila Lambert MD [address] [place] [address] ReferringUrology03/03/22Team MemberRelationshipSpecialtyStart DateEnd Date Adrian Castano, DIET THERAPIST [address] [facility] [address] PCP - GeneralInternal Medicine03/03/22 Leila Lambert MD [address] [place] [address] ReferringUrology03/03/22Team MemberRelationshipSpecialtyStart DateEnd Date Juma Castanoa, DIET THERAPIST [address] [place] [address] PCP - GeneralInternal Medicine03/03/22 Leila Lambert MD [address] [place] [address] ReferringUrology03/03/22Te MemberRelationshipSpecialtyStart DateEnd Date Adrian Castano, DIET THERAPIST [address] [place] [address] PCP - GeneralInternal Medicine03/03/22 Leila Lambert MD [address] [place] [address] ReferringUrology03/03/22Te MemberRelationshipSpecialtyStart DateEnd Date Adrian Castano, DIET THERAPIST [address] [place] [address] PCP - GeneralInternal Medicine03/03/22 Leila Lambert MD [address] [place] [address] ReferringUrology03/03/22Te MemberRelationshipSpecialtyStart DateEnd Date Adrian Castano, DIET THERAPIST [address] [place] [address] PCP - GeneralInternal Medicine03/03/22 Leila Lambert MD [address] [place] [address] ReferringUrology03/03/22Te MemberRelationshipSpecialtyStart DateEnd Date Adrian Castano, DIET THERAPIST [address] [place] [address] PCP - GeneralInternal Medicine03/03/22 Leila Lambert MD [address] [place] [address] ReferringUrology03/03/22Team MemberRelationshipSpecialtyStart DateEnd Date Adrian Castano, DIET THERAPIST [address] [place] [address] PCP - GeneralInternal Medicine03/03/22 Leila Lambert MD [address] [place] [address] ReferringUrology03/03/22Team MemberRelationshipSpecialtyStart DateEnd Date Adrian Castano, DIET THERAPIST [address] [place] [address] PCP - GeneralInternal Medicine03/03/22 Leila Lambert MD [address] [place] [address] ReferringUrology03/03/22Team MemberRelationshipSpecialtyStart DateEnd Date Juma Castanoa, DIET THERAPIST [address] [place] [address] PCP - GeneralInternal Medicine03/03/22 Leila Lambert MD [address] [place] [address] ReferringUrology03/03/22Te MemberRelationshipSpecialtyStart DateEnd Date Juma Castanoa, DIET THERAPIST [address] [place] [address] PCP - GeneralInternal Medicine03/03/22 Leila Lambert MD [address] [place] [address] ReferringUrology03/03/22Team MemberRelationshipSpecialtyStart DateEnd Date Juma Castanoa, DIET THERAPIST [address] [place] [address] PCP - GeneralInternal Medicine03/03/22 Leila Lambert MD [address] [place] [address] ReferringUrology03/03/22Te MemberRelationshipSpecialtyStart DateEnd Date Adrian Castano, DIET THERAPIST [address] [place] [address] PCP - GeneralInternal Medicine03/03/22 Leila Lambert MD [address] [place] [address] ReferringUrology03/03/22Te MemberRelationshipSpecialtyStart DateEnd Date Adrian Castano, DIET THERAPIST [address] [place] [address] PCP - GeneralInternal Medicine03/03/22 Leila Lambert MD [address] [place] [address] ReferringUrology03/03/22Te MemberRelationshipSpecialtyStart DateEnd Date Juma Castanoa, DIET THERAPIST [address] [place] [address] PCP - GeneralInternal Medicine03/03/22 Leila Lambert MD [address] [place] [address] ReferringUrology03/03/22Te MemberRelationshipSpecialtyStart DateEnd Date Adrian Castano, DIET THERAPIST [address] [place] [address] PCP - GeneralInternal Medicine03/03/22 Leila Lambert MD [address] [place] [address] ReferringUrology03/03/22Te MemberRelationshipSpecialtyStart DateEnd Date Adrian Castano, DIET THERAPIST [address] [place] [address] PCP - GeneralInternal Medicine01/05/23 Leila Lambert MD [address] [place], [place] [address] [facility]03/03/[address] [address] 01/05/23Team MemberRelationshipSpecialtyStart DateEnd Date Adrian Castano CNP [address] [place] [address] PCP - [facility] [place]01/05/23 Leila Lambert MD [address] [place] [address] [facility]03/03/[address] [address] 01/05/23 Team Status: Inactive Member Role Status [facility] Active Richard Chisholm ProviderActive Team Status: Inactive Member Role Status Johnny Kirk MD Attending Provider Active S tart: November 30, 2023 End: November 30, 2023 Team Status: Inactive Member Role Status [facility] Active Start: November 30, 2023 End: November 30Richard Aaron ProviderActiveStart: November 30, 2023 End: November 30, 2023Team MemberRelationshipSpecialtyStart DateEnd Date Adrian Castano CNP [address] [place] [address] [facility] Leila Lambert MD [address] [place] [address] ReferringUrolog03/03/22 [facility] [address] [place], [place] [address] 01/05/23Team MemberRelationshipSpecialtyStart DateEnd Date Adrian Castano CNP [address] [place] [address] PCP - GeneralInternal Medicine Leila Lambert MD [address] [place] [address] ReferringUrology03/03/22Team MemberRelationshipSpecialtyStart DateEnd Date Adrian Castano CNP [address] [place] [address] PCP - GeneralInternal Medicine Leila Lambert MD [address] [place] [address] ReferringUrology03/03/22Te MemberRelationshipSpecialtyStart DateEnd Date Yolette Warren MD [address] [place] [address] PCP - GeneralPediatric05/16/24Team MemberRelationshipSpecialtyStart DateEnd Date Yolette Warren MD [address] [place] [address] PCP - GeneralPediatric05/16/24Team MemberRelationshipSpecialtyStart DateEnd Date Yolette Warren MD [address] [place] [address] PCP - GeneralPediatrics6Team MemberRelationshipSpecialtyStart DateEnd Date Yolette Warren MD [address] [place] [address] PCP - GeneralPediatric05/16/24Team MemberRelationshipSpecialtyStart DateEnd Date Yolette Warren MD [address] [place] [address] PCP - GeneralPediatric05/16/24Team MemberRelationshipSpecialtyStart DateEnd Date Yolette Warren MD [address] [place] [address] PCP - [facility]05/16/24 Team Status: Inactive Member Role Status Dates Anjana Dietz DPM MS Attending Provider Active Start: December 11, 2024 End: December 11, 2024Team MemberRelationshipSpecialtyStart DateEnd Date [facility] [address] [place] PCP - Generalmily Medicine06/08/21Team MemberRelationshipSpecialtyStart DateEnd [facility] [address] [place] PCP - Generalmily Medicine06/08/21Te MemberRelationshipSpecialtyStart DateEnd Date [facility] [address] [place] PCP - Generalmily Medicine06/08/21Te MemberRelationshipSpecialtyStart DateEnd [facility] [address] [place] PCP - GeneralFamily Medicine01/05/25 Team Status: Active Member Role Status Dates Gilberto Agustin DO Attending Provider Active Sta rt: December 06, 2024 Team Status: Inactive Member Role Status Dates Leila Lambert MD Attending Provider Active St art: February 22, 2025 End: February 22, 2025Team MemberRelationshipSpecialtyStart DateEnd [facility] [address] [place] PCP - Generalmily Medicine01/05/25Team MemberRelationshipSpecialtyStart DateEnd [facility] [address] [place], [place] PCP - [facility] Medicine01/05/25Team MemberRelationshipSpecialtyStart DateEnd [facility] [address] [place], [place] PCP - Generalmily Medicine01/05/25Team MemberRelationshipSpecialtyStart Date[facility] [address] [facility] [address] [place], [place] PCP - [facility] Medicine01/05/25Team MemberRelationshipSpecialtyStart [facility] [address] [place], [place] PCP - Generalmily Medicine01/05/25Team MemberRelationshipSpecialtyStart DateEnd [facility] Adrian Castano CNP [address] [place] [address] PCP - GeneralInternal Medicine01/05/23 Leila Lambert MD ReferringUrology03/03/22 [facility] [address] [place] [address] 01/05/23Team MemberRelationshipSpecialtyStart DateEnd [facility] [address] [place] PCP - GeneralFamily Medicine04/10/25Team MemberRelationshipSpecialtyStart DateEnd Date [facility] [address] [place] PCP - Generalmily Medicine04/10/25Team MemberRelationshipSpecialtyStart DateEnd Date [facility] [address] [place] PCP - GeneralFamily Medicine04/10/25Te MemberRelationshipSpecialtyStart DateEnd Date [facility] [address] [place] PCP - Generalmily Medicine04/10/25Te MemberRelationshipSpecialtyStart DateEnd Date [facility] [address] [place] PCP - Generalmily Medicine04/10/25Te MemberRelationshipSpecialtyStart DateEnd [facility] [address] [place] PCP - GeneralFamily Medicine04/10/25 (unrecognized sect ion and content) No Status Records FoundNo Status Records FoundNo Status Records FoundNo Status Records FoundNo Status Records FoundNo Status Records FoundNo Status Records FoundNo Status Records FoundNo Status Records FoundNo Status Records FoundNo Status Records FoundNo Status Records Found INFORMATION SOURCE (unrecogn ized section and content) DATE CREATED AUTHOR 02/06/2023 [facility] DATE CREATED AUTHOR AUTHOR'S ORGANIZ ATION 02/21/2023 [facility] DATE CREATED AUTHOR AUTHOR'S ORGANIZ ATION 10/11/2024 [facility] DATE CREATED AUTHOR AUTHOR'S ORGANIZ ATION 10/19/2024 [facility] DATE CREATED AUTHOR AUTHOR'S ORGANIZ ATION 01/16/2025 [facility] DATE CREATED AUTHOR AUTHOR'S ORGANIZ ATION 02/28/2025 [facility] DATE CREATED AUTHOR AUTHOR'S ORGANIZ ATION 03/09/2025 [facility] DATE CREATED AUTHOR AUTHOR'S ORGANIZ ATION 03/17/2025 [facility] DATE CREATED AUTHOR AUTHOR'S ORGANIZ ATION 04/12/2025 [facility] DATE CREATED AUTHOR AUTHOR'S ORGANIZ ATION 09/19/2025 [facility] DATE CREATED AUTHOR AUTHOR'S ORGANIZ ATION 09/23/2025 [facility] DATE CREATED AUTHOR AUTHOR'S ORGANIZ ATION 10/10/2025 [facility] Goals (unrecognized section and content) Goals may [...] BE BASED ON THE PRIMARY CLINICAL RECORDS. [employer] provides no warranty or guarantee of the accuracy or completeness of information in this document.
--- NOTE | 2025-10-31 10:22 | XR_ITS ---
The [address] [address] Patient Name: MEREDITH VILLATORO MRN: [id number] date: 1960 Sex: M Assigned Patient Location: [facility] Current Patient Location: [facility] Accession/Order Number: [id number] Exam Date: 10/31/2025 10:10 Report Date: 10/31/2025 11:10 At the request of: PHILIP ANDERSON NP Procedure: XR lumbar spine min 4V LUMBAR SPINE -5 views: CLINICAL HISTORY: Lumbar Stenosis With Neuro claudication, Low Back Pain COMPARISON: 02/20/2022 CT AP, lateral, both oblique and lateral coned-down views of the lumbosacral junction were obtained. There is osteopenia. There is no evidence of fracture. Alignment is maintained on the lateral view. The disc spaces are normal in height. There is endplate spurring as well as mid and lower lumbar facet hypertrophy. No pars defect is identified. The sacroiliac joints are maintained. There are no paraspinal soft tissue abnormalities. XR/XR lumbar spine min 4V IMPRESSION: OSTEOPENIA AND DEGENERATIVE CHANGES Impression dictated by: Shena Butts M.D. 10/31/2025 11:10 AM Dictation Location: [place] [address] Electronically authenticated by: [id number] Y Date: 10/31/2025 11:10
== END 2025-10-31 09:55 | disposition home or self-care (01) ==
PROVIDERS: Visit Provider Nurse Practitioner
DX: M48.062 Spinal stenosis, lumbar region with neurogenic claudication (principal); M54.50 Low back pain, unspecified; M79.605 Pain in left leg; M85.88 Other specified disorders of bone density and structure, other site; M51.369 Other intervertebral disc degeneration, lumbar region without mention of lumbar back pain or lower extremity pain
CPT/HCPCS: 72110